=== PATIENT | female | born 1940 | race Two or more races ===

== ENCOUNTER 2016-09-20 07:41 | Inpatient (IN) | payer MEDICAID, MEDICARE ==
[~2016-09-20] VITALS: Ht 162.6 cm; Wt 68.0 kg
[~2016-09-20 07:41] MED LIST: ASCO500T2 PO; ASPI-482 PO; CARV3.122 PO; CEFD300C PO; CEFP100T PO; CEPH-264 PO; CEPH500T PO; CIPR250T30 PO; CIPR500T94 PO; FERR140T2 PO; FERR325T58 PO; INSU100C4 SQ; INSU100I13 SQ; NITR100C PO; NITR50CA PO; OXYC-323 PO; POLY17PO5 PO; SIMV40TA3 PO; SODI650T PO; SULF1TAB24 PO
--- NOTE | 2016-09-20 08:21 | PHYS DOC ---
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 According to her family and the patient over the last 2 days she's been getting weaker and decreased appetite. Her blood glucose is been ranging from 60-225 and she's not been eating as much. Patient states she has decreased appetite. She has also had a nonproductive cough with cold-like symptoms for the last week and was started on ciprofloxacin and what I suspect Phenergan with codeine as a cough suppressant. She has a history of urinary retention and sees Dr. Ritchie said urinary stents placed and self catheters. She denies any fevers chills, no headache, chest pain or abdominal pain. According to family she is needing assistance to ambulate to the bathroom secondary to weakness now. Review of Systems Review of Systems Constitutional: Denies fever or chills [] Eyes: Denies change in visual acuity, redness, or eye pain [] HENT: Denies nasal congestion or sore throat [] Respiratory: Denies cough or shortness of breath [] Cardiovascular: No additional information not addressed in HPI [] GI: Denies abdominal pain, nausea, vomiting, bloody stools or diarrhea [] : Denies dysuria or hematuria [] Musculoskeletal: Denies back pain or joint pain [] Integument: Denies rash or skin lesions [] Neurologic: Denies headache, focal weakness or sensory changes [] Endocrine: Denies polyuria or polydipsia [] Current Medications Current Medications Current Medications Medications (Trade) Dose Ordered Sig/Claudette Start Time Stop Time Status Last Admin Dose Admin Ceftriaxone Sodium (Rocephin 1gm Ivpb For Omni) 50 ml @ 100 mls/hr 1X ONCE 09/20/16 11:15 09/20/16 11:44 09/20/16 11:35 100 MLS/HR Ondansetron HCl (Zofran) 4 mg PRN Q8HRS PRN 09/20/16 11:15 09/21/16 11:14 Allergies Allergies Allergies Coded Allergies Type Severity Reaction Last Updated Verified latex Allergy Intermediate Rash 08/06/16 Yes Physical Exam Physical Exam Constitutional: Well developed, well nourished, no acute distress, non-toxic appearance. [] HENT: Normocephalic, atraumatic, bilateral external ears normal, oropharynx moist, no oral exudates, nose normal. [] Eyes: PERRLA, EOMI, conjunctiva normal, no discharge. [] Neck: Normal range of motion, no tenderness, supple, no stridor. [] Cardiovascular:Heart rate regular rhythm, no murmur [] Lungs & Thorax: Bilateral breath sounds clear to auscultation [] Abdomen: Bowel sounds normal, soft, no tenderness, no masses, no pulsatile masses. [] Skin: Warm, dry, no erythema, no rash. [] Back: No tenderness, no CVA tenderness. [] Extremities: No tenderness, no cyanosis, no clubbing, ROM intact, no edema. [] Neurologic: Alert and oriented X 3, normal motor function, normal sensory function, no focal deficits noted. [] Psychologic: Affect normal, judgement normal, mood normal. [] Current Patient Data Vital Signs Vital Signs Date Time Temp Pulse Resp B/P Pulse Ox O2 Delivery O2 Flow Rate FiO2 09/20/16 08:02 97.9 90 18 175/74 95 Room Air 97.9 Lab Values Laboratory Tests Test 09/20/16 09:03 09/20/16 09:21 09/20/16 10:20 Urine Collection Type U cath Urine Color Yellow Urine Clarity Turbid Urine pH 6.5 Urine Specific [place] 1.010 Urine Protein 100mg/dL (NEG-TRACE) Urine Glucose (UA) 100mg/dL (NEG) Urine Ketones (Stick) Negativemg/dL (NEG) Urine Blood Large (NEG) Urine Nitrite Negative (NEG) Urine Bilirubin Negative (NEG) Urine Urobilinogen Dipstick 0.2mg/dL (0.2 mg/dL) Urine Leukocyte Esterase Large (NEG) Urine RBC 11-20/HPF (0-2) Urine WBC Tntc/HPF (0-4) Urine Squamous Epithelial Cells Few/LPF Urine Bacteria Few/HPF (0-FEW) Urine Mucus Slight/LPF Urine Yeast Present/HPF Influenza Type A Antigen Negative (NEGATIVE) Influenza Type B Antigen Negative (NEGATIVE) White Blood Count 9.0x10^3/uL (4.0-11.0) Red Blood Count 3.86x10^6/uL (3.50-5.40) Hemoglobin 11.7g/dL (12.0-15.5) L Hematocrit 35.5% (36.0-47.0) L Mean Corpuscular Volume 92fL (79-100) Mean Corpuscular Hemoglobin 30pg (25-35) Mean Corpuscular Hemoglobin Concent 33g/dL (31-37) Red Cell Distribution Width 14.9% (11.5-14.5) H Platelet Count 281x10^3/uL (140-400) Neutrophils (%) (Auto) 67% (31-73) Lymphocytes (%) (Auto) 24% (24-48) Monocytes (%) (Auto) 8% (0-9) Eosinophils (%) (Auto) 0% (0-3) Basophils (%) (Auto) 1% (0-3) Neutrophils # (Auto) 6.0x10^3uL (1.8-7.7) Lymphocytes # (Auto) 2.2x10^3/uL (1.0-4.8) Monocytes # (Auto) 0.7x10^3/uL (0.0-1.1) Eosinophils # (Auto) 0.0x10^3/uL (0.0-0.7) Basophils # (Auto) 0.1x10^3/uL (0.0-0.2) Prothrombin Time 13.6SEC (11.7-14.0) Prothrombin Time INR 1.1 (0.8-1.1) Sodium Level 142mmol/L (136-145) Potassium Level 5.5mmol/L (3.5-5.1) H Chloride Level 105mmol/L (98-107) Carbon Dioxide Level 24mmol/L (21-32) Anion Gap 13 (6-14) Blood Urea Nitrogen 63mg/dL (7-20) H Creatinine 2.9mg/dL (0.6-1.0) H Estimated GFR (Cockcroft-Gault) 15.9 Glucose Level 298mg/dL (70-99) H Calcium Level 8.5mg/dL (8.5-10.1) Magnesium Level 2.3mg/dL (1.8-2.4) Total Bilirubin 0.3mg/dL (0.2-1.0) Direct Bilirubin 0.1mg/dL (0.0-0.2) Aspartate Amino Transferase (AST) 18U/L (15-37) Alanine Aminotransferase (ALT) 9U/L (14-59) L Alkaline Phosphatase 116U/L (46-116) Creatine Kinase 71U/L (26-192) Creatine Kinase MB (Mass) 0.6ng/mL (0.0-3.6) Creatine Kinase MB Relative Index % (0-4) Troponin I Quantitative < 0.017ng/mL (0.000-0.055) CT-Xlz-Z-Type Natriuretic Peptide 640pg/mL (0-124) H Total Protein 8.8g/dL (6.4-8.2) H Albumin 3.1g/dL (3.4-5.0) L Lipase 119U/L (73-393) Thyroid Stimulating Hormone (TSH) 3.538uIU/mL (0.358-3.74) Laboratory Tests 09/20/16 10:20 Laboratory Tests 09/20/16 10:20 EKG EKG EKG shows normal sinus rhythm with rate of [address] elevations or T -wave inversions, left axis deviation, QRS 88 ms, as interpreted by me. Radiology/Procedures Radiology/Procedures [facility] [address] [place] [address] IMAGING REPORT Signed PATIENT: BRYANT LOCKHART ACCOUNT: [id number] : 1940 LOCATION: ER AGE: 76 SEX: F EXAM STATUS: REG ER ORD. PHYSICIAN: STEPHANIE MERLOS MD REASON: weakness 18 PROCEDURE: PORTABLE CHEST 1V Portable chest, 09/20/2016: History: Weakness and dizziness Comparison is made to a study from 07/19/2016. There has been a previous median sternotomy. The heart size is normal. There is calcific plaquing of the aorta. The pulmonary vascularity is normal. No pulmonary infiltrates are seen. There is no evidence of pleural fluid. The bony structures are demineralized. There is an old fracture of the left fifth rib. IMPRESSION: No acute cardiopulmonary abnormality is detected. DICTATED and SIGNED BY: ADEN GREY MD DATE: 09/20/16 0832 CC: STEPHANIE MERLOS MD; LISA CALHOUN ~ Impressions: UTI Generalized weakness Coronary artery disease Diabetes Chronic renal insufficiency Hypertension Course & Med Decision Making Course & Med Decision Making Pertinent Labs and Imaging studies reviewed. (See chart for details) EKG, chest x-ray not showing any acute abnormalities and she does have leuk esterase positive urine. She is currently on Cipro. We'll send a urine culture and start Rocephin 1 g. Patient will need to be admitted for generalized weakness. We'll admit to the hospitalist. She is in stable condition this time. Dragon Disclaimer Dragon Disclaimer This electronic medical record was generated, in whole or in part, using a voice recognition dictation system. Departure Departure Impression: Primary Impression: UTI (urinary tract infection) Disposition: ADMITTED INPATIENT Admitting Physician: Christian Angel Condition: STABLE Referrals: LISA CALHOUN (PCP) STEPHANIE MERLOS MD Sep 20, 2016 08:21
--- NOTE | 2016-09-20 08:35 | RAD ---
Portable chest, 09/20/2016: History: Weakness and dizziness Comparison is made to a study from 07/19/2016. There has been a previous median sternotomy. The heart size is normal. There is calcific plaquing of the aorta. The pulmonary vascularity is normal. No pulmonary infiltrates are seen. There is no evidence of pleural fluid. The bony structures are demineralized. There is an old fracture of the left fifth rib. IMPRESSION: No acute cardiopulmonary abnormality is detected.
[2016-09-20 09:11] LABS: BILIRUBIN,URINE NEGATIVE (NEG); GLUCOSE,URINE 100 mg/dL (NEG); NITRITE,URINE NEGATIVE (NEG); PH,URINE 6.5; PROTEIN,URINE 100 mg/dL (NEG-TRACE); UROBILINOGEN,URINE 0.2 mg/dL (0.2 mg/dL)
--- NOTE | 2016-09-20 09:27 | EKG ---
[facility] [address] [place] [address] Test Date: 2016-09-20 Test Time: 08:33:25 Pat Name: BRYANT LOCKHART Department: Room: Gender: F Ticket Speculator: : 1940 Requested By: STEPHANIE MERLOS Order Number: [id number] Reading MD: Shine Zapata Measurements Intervals [place] Rate: 87 P: -5 LA: 158 QRS: -15 QRSD: 88 T: 51 QT: 384 QTc: 463 Interpretive Statements SINUS RHYTHM POSSIBLE INFERIOR INFARCT NON-SPECIFIC ST/T CHANGES Electronically Signed On 09-21-2016 13:09:06 SAMPLER TESTER by Shine Zapata
[2016-09-20 09:31] LABS: BACTERIA,URINE FEW /HPF (0-FEW); WBC,URINE TNTC /HPF (0-4)
[2016-09-20 09:32] LABS: SQUAMOUS EPITHELIAL CELL,UR FEW /LPF
[2016-09-20 09:36] LABS: YEAST,URINE PRESENT /HPF
[2016-09-20 09:59] LABS: OBC FLU VALID
[2016-09-20 10:32] LABS: BASO # 0.1 x10^3/uL (0.0-0.2); BASO % 1 % (0-3); EOS % 0 % (0-3); HEMATOCRIT 35.5 % (36.0-47.0); HEMOGLOBIN 11.7 g/dL (12.0-15.5); LYMPH # 2.2 x10^3/uL (1.0-4.8); LYMPH % 24 % (24-48); MEAN CORPUSCULAR HEMOGLOBIN 30 pg (25-35); MEAN CORPUSCULAR HGB CONC 33 g/dL (31-37); MEAN CORPUSCULAR VOLUME 92 fL (79-100); MONO % 8 % (0-9); NEUT % 67 % (31-73); PLATELET COUNT 281 x10^3/uL (140-400); RED BLOOD COUNT 3.86 x10^6/uL (3.50-5.40); RED CELL DISTRIBUTION WIDTH 14.9 % (11.5-14.5)
[2016-09-20 10:40] LABS: INR 1.1 (0.8-1.1); PROTHROMBIN TIME PATIENT 13.6 SEC (11.7-14.0)
[2016-09-20 10:52] LABS: CALCIUM 8.5 mg/dL (8.5-10.1); CREATININE 2.9 mg/dL (0.6-1.0); GFR 15.9; POTASSIUM 5.5 mmol/L (3.5-5.1)
[2016-09-20 10:58] LABS: ALBUMIN 3.1 g/dL (3.4-5.0); DIRECT BILIRUBIN 0.1 mg/dL (0.0-0.2); MAGNESIUM 2.3 mg/dL (1.8-2.4); TOTAL BILIRUBIN 0.3 mg/dL (0.2-1.0); TOTAL PROTEIN 8.8 g/dL (6.4-8.2)
[2016-09-20 11:06] LABS: CKMB MASS 0.6 ng/mL (0.0-3.6); CREATINE KINASE 71 U/L (26-192)
[2016-09-20] MEDS ORDERED: ONDANSETRON PF 4 MG/2 ML VIAL. IV PRN ×2 (11:15→14:45)
[2016-09-20] MEDS ORDERED: CEFTRIAXONE 1GM IVPB FOR OMNI 50 ML IV ONE (11:15)
[2016-09-20 13:37] VITALS: BP 151/68
[2016-09-20 14:04] VITALS: BP 151/68
[2016-09-20] MEDS ORDERED: ACETAMINOPHEN 325 MG TABLET. PO PRN (14:45)
[2016-09-20] MEDS ORDERED: DEXTROSE 50% 25 GM / 50ML DISP.SYRIN. IV PRN (14:45)
[2016-09-20] MEDS ORDERED: HYDROCODONE/APAP 5/325MG TABLET. PO PRN (14:45)
[2016-09-20] MEDS ORDERED: hydrALAZINE 20 MG/ML VIAL. IVP PRN (14:45)
[2016-09-20] MEDS ORDERED: ALBUTEROL SULFATE 2.5 MG/3 ML NEBU. NEB PRN (14:45)
--- NOTE | 2016-09-20 14:51 | PDOC1 ---
History and Physical Past Medical History Cardiovascular: CAD, HTN GI: Other Heme/Onc: No pertinent hx Psych: No pertinent hx Rheumatologic: No pertinent hx Infectious disease: No pertinent hx Renal/: Chronic renal failure, UTI, Other Past Surgical History Past Surgical History: CABG Family History Family History DM- FATHER Family History: No Significant, Other Social History ALCOHOL: none Drugs: None Current Problem List Problem List Problems Medical Problems: (1) UTI (urinary tract infection) Status: Acute (2) Weakness Status: Acute Current Medications Current Medications Current Medications Medications (Trade) Dose Ordered Sig/Claudette Start Time Stop Time Status Last Admin Dose Admin Acetaminophen (Tylenol) 325 mg PRN Q6HRS PRN 09/20/16 14:45 Acetaminophen/ Hydrocodone Bitart (Lortab 5/325) 1 tab PRN Q6HRS PRN 09/20/16 14:45 Albuterol Sulfate (Ventolin Neb Soln) 2.5 mg PRN Q4HRS PRN 09/20/16 14:45 Ceftriaxone Sodium/Sodium Chloride (Rocephin/Iv Sodium Chloride 0.9% 50ml) 50 ml @ 100 mls/hr Q24H 09/21/16 12:00 Ceftriaxone Sodium (Rocephin 1gm Ivpb For Omni) 50 ml @ 100 mls/hr 1X ONCE 09/20/16 11:15 09/20/16 11:44 DC 09/20/16 11:35 100 MLS/HR Dextrose 12.5 gm PRN Q15MIN PRN 09/20/16 14:45 Hydralazine HCl (Apresoline) 10 mg PRN Q4HRS PRN 09/20/16 14:45 Insulin Aspart (Novolog) 0-9 UNITS TIDWMEALS 09/20/16 17:00 Ondansetron HCl (Zofran) 4 mg PRN Q8HRS PRN 09/20/16 14:45 Ondansetron HCl 4 mg 4 mg PRN Q8HRS PRN 09/20/16 11:15 09/21/16 11:14 Allergies Allergies Allergies Coded Allergies Type Severity Reaction Last Updated Verified latex Allergy Intermediate Rash 08/06/16 Yes ROS Review of System CONSTITUTIONAL: No fever or chills Weakness, loss of appetite EYES: No recent changes SKIN: No rash or itching CARDIOVASCULAR: No chest pain, syncope, palpitations, or edema RESPIRATORY: No SOB or cough GASTROINTESTINAL: No nausea, vomiting or abdominal pain NEUROLOGICAL: No headaches or weakness ENDOCRINE: No cold or heat intolerance GENITOURINARY: No urgency or frequency of urination MUSCULOSKELETAL: No back pain or joint pain LYMPHATICS: No enlarged lymph nodes PSYCHIATRIC: No anxiety or depression Physical Exam Physical Exam GEN.: No apparent distress. Alert and oriented. HEENT: Head is normocephalic, atraumatic NECK: Supple. no jvd LUNGS: Clear to auscultation. normal airflow HEART: RRR, S1, S2 present. Peripheral pulses intact, systolic murmur ABDOMEN: Soft, nontender. Positive bowel sounds. EXTREMITIES: Without any cyanosis. NEUROLOGIC: Normal speech, normal tone PSYCHIATRIC: Normal affect, normal mood. SKIN: No visible ulcerations Vitals Vitals Vital Signs Date Time Temp Pulse Resp B/P Pulse Ox O2 Delivery O2 Flow Rate FiO2 09/20/16 14:04 98.6 76 18 151/68 94 Room Air 98.6 Labs Labs Laboratory Tests Test 09/20/16 09:03 09/20/16 09:21 09/20/16 10:20 Urine Collection Type U cath Urine Color Yellow Urine Clarity Turbid Urine pH 6.5 Urine Specific [place] 1.010 Urine Protein 100mg/dL (NEG-TRACE) Urine Glucose (UA) 100mg/dL (NEG) Urine Ketones (Stick) Negativemg/dL (NEG) Urine Blood Large (NEG) Urine Nitrite Negative (NEG) Urine Bilirubin Negative (NEG) Urine Urobilinogen Dipstick 0.2mg/dL (0.2 mg/dL) Urine Leukocyte Esterase Large (NEG) Urine RBC 11-20/HPF (0-2) Urine WBC Tntc/HPF (0-4) Urine Squamous Epithelial Cells Few/LPF Urine Bacteria Few/HPF (0-FEW) Urine Mucus Slight/LPF Urine Yeast Present/HPF Influenza Type A Antigen Negative (NEGATIVE) Influenza Type B Antigen Negative (NEGATIVE) White Blood Count 9.0x10^3/uL (4.0-11.0) Red Blood Count 3.86x10^6/uL (3.50-5.40) Hemoglobin 11.7g/dL (12.0-15.5) Hematocrit 35.5% (36.0-47.0) Mean Corpuscular Volume 92fL (79-100) Mean Corpuscular Hemoglobin 30pg (25-35) Mean Corpuscular Hemoglobin Concent 33g/dL (31-37) Red Cell Distribution Width 14.9% (11.5-14.5) Platelet Count 281x10^3/uL (140-400) Neutrophils (%) (Auto) 67% (31-73) Lymphocytes (%) (Auto) 24% (24-48) Monocytes (%) (Auto) 8% (0-9) Eosinophils (%) (Auto) 0% (0-3) Basophils (%) (Auto) 1% (0-3) Neutrophils # (Auto) 6.0x10^3uL (1.8-7.7) Lymphocytes # (Auto) 2.2x10^3/uL (1.0-4.8) Monocytes # (Auto) 0.7x10^3/uL (0.0-1.1) Eosinophils # (Auto) 0.0x10^3/uL (0.0-0.7) Basophils # (Auto) 0.1x10^3/uL (0.0-0.2) Prothrombin Time 13.6SEC (11.7-14.0) Prothromb Time International Ratio 1.1 (0.8-1.1) Sodium Level 142mmol/L (136-145) Potassium Level 5.5mmol/L (3.5-5.1) Chloride Level 105mmol/L (98-107) Carbon Dioxide Level 24mmol/L (21-32) Anion Gap 13 (6-14) Blood Urea Nitrogen 63mg/dL (7-20) Creatinine 2.9mg/dL (0.6-1.0) Estimated GFR (Cockcroft-Gault) 15.9 Glucose Level 298mg/dL (70-99) Calcium Level 8.5mg/dL (8.5-10.1) Magnesium Level 2.3mg/dL (1.8-2.4) Total Bilirubin 0.3mg/dL (0.2-1.0) Direct Bilirubin 0.1mg/dL (0.0-0.2) Aspartate Amino Transf (AST/SGOT) 18U/L (15-37) Alanine Aminotransferase (ALT/SGPT) 9U/L (14-59) Alkaline Phosphatase 116U/L (46-116) Creatine Kinase 71U/L (26-192) Creatine Kinase MB (Mass) 0.6ng/mL (0.0-3.6) Creatine Kinase MB Relative Index % (0-4) Troponin I Quantitative < 0.017ng/mL (0.000-0.055) PM-Zae-H-Type Natriuretic Peptide 640pg/mL (0-124) Total Protein 8.8g/dL (6.4-8.2) Albumin 3.1g/dL (3.4-5.0) Lipase 119U/L (73-393) Thyroid Stimulating Hormone (TSH) 3.538uIU/mL (0.358-3.74) Laboratory Tests Test 09/20/16 09:03 09/20/16 09:21 09/20/16 10:20 Urine Collection Type U cath Urine Color Yellow Urine Clarity Turbid Urine pH 6.5 Urine Specific [place] 1.010 Urine Protein 100mg/dL (NEG-TRACE) Urine Glucose (UA) 100mg/dL (NEG) Urine Ketones (Stick) Negativemg/dL (NEG) Urine Blood Large (NEG) Urine Nitrite Negative (NEG) Urine Bilirubin Negative (NEG) Urine Urobilinogen Dipstick 0.2mg/dL (0.2 mg/dL) Urine Leukocyte Esterase Large (NEG) Urine RBC 11-20/HPF (0-2) Urine WBC Tntc/HPF (0-4) Urine Squamous Epithelial Cells Few/LPF Urine Bacteria Few/HPF (0-FEW) Urine Mucus Slight/LPF Urine Yeast Present/HPF Influenza Type A Antigen Negative (NEGATIVE) Influenza Type B Antigen Negative (NEGATIVE) White Blood Count 9.0x10^3/uL (4.0-11.0) Red Blood Count 3.86x10^6/uL (3.50-5.40) Hemoglobin 11.7g/dL (12.0-15.5) Hematocrit 35.5% (36.0-47.0) Mean Corpuscular Volume 92fL (79-100) Mean Corpuscular Hemoglobin 30pg (25-35) Mean Corpuscular Hemoglobin Concent 33g/dL (31-37) Red Cell Distribution Width 14.9% (11.5-14.5) Platelet Count 281x10^3/uL (140-400) Neutrophils (%) (Auto) 67% (31-73) Lymphocytes (%) (Auto) 24% (24-48) Monocytes (%) (Auto) 8% (0-9) Eosinophils (%) (Auto) 0% (0-3) Basophils (%) (Auto) 1% (0-3) Neutrophils # (Auto) 6.0x10^3uL (1.8-7.7) Lymphocytes # (Auto) 2.2x10^3/uL (1.0-4.8) Monocytes # (Auto) 0.7x10^3/uL (0.0-1.1) Eosinophils # (Auto) 0.0x10^3/uL (0.0-0.7) Basophils # (Auto) 0.1x10^3/uL (0.0-0.2) Prothrombin Time 13.6SEC (11.7-14.0) Prothromb Time International Ratio 1.1 (0.8-1.1) Sodium Level 142mmol/L (136-145) Potassium Level 5.5mmol/L (3.5-5.1) Chloride Level 105mmol/L (98-107) Carbon Dioxide Level 24mmol/L (21-32) Anion Gap 13 (6-14) Blood Urea Nitrogen 63mg/dL (7-20) Creatinine 2.9mg/dL (0.6-1.0) Estimated GFR (Cockcroft-Gault) 15.9 Glucose Level 298mg/dL (70-99) Calcium Level 8.5mg/dL (8.5-10.1) Magnesium Level 2.3mg/dL (1.8-2.4) Total Bilirubin 0.3mg/dL (0.2-1.0) Direct Bilirubin 0.1mg/dL (0.0-0.2) Aspartate Amino Transf (AST/SGOT) 18U/L (15-37) Alanine Aminotransferase (ALT/SGPT) 9U/L (14-59) Alkaline Phosphatase 116U/L (46-116) Creatine Kinase 71U/L (26-192) Creatine Kinase MB (Mass) 0.6ng/mL (0.0-3.6) Creatine Kinase MB Relative Index % (0-4) Troponin I Quantitative < 0.017ng/mL (0.000-0.055) GX-Uug-B-Type Natriuretic Peptide 640pg/mL (0-124) Total Protein 8.8g/dL (6.4-8.2) Albumin 3.1g/dL (3.4-5.0) Lipase 119U/L (73-393) Thyroid Stimulating Hormone (TSH) 3.538uIU/mL (0.358-3.74) VTE Prophylaxis Ordered VTE Prophylaxis Devices: Yes VTE Pharmacological Prophylaxi: Yes MUNIR PADILLA MD Sep 20, 2016 14:51
[2016-09-20] MEDS ORDERED: SODIUM POLYSTYRENE SULFONATE 15 GM/60 ML ORAL.SUSP. PO ONE (15:30)
[2016-09-20 16:00] VITALS: BP 151/68
--- NOTE | 2016-09-20 16:04 | RAD ---
Renal ultrasound, 09/20/2016: History: Acute and chronic kidney disease The right kidney measures 12.2 cm in length and the left kidney measures 11.1 cm. There is mild bilateral renal cortical scarring. The patient's known ureteral stents are visible extending into the renal pelves bilaterally. There is mild to moderate hydronephrosis bilaterally. Similar findings were present on the CT study of 07/19/2016. No renal mass is seen. The bladder is largely collapsed and poorly defined. IMPRESSION: 1. Bilateral ureteral stents are in place. 2. Mild to moderate bilateral hydronephrosis.
[2016-09-20] MEDS: INSULIN ASPART 300 UNITS/3 ML INSULN.PEN SQ SCH ×2 (16:30→17:00)
[2016-09-20] MEDS: FLUCONAZOLE 100 MG TABLET. PO SCH (16:33)
--- NOTE | 2016-09-20 17:38 | PDOC2 ---
UROLOGY CONSULT Date of Admission DATE: 09/20/16 TIME: 17:22 Reason for Consult: history of urinary tract infections Referring Physician: Stanley Problems: (1) UTI (lower urinary tract infection) (2) Hydronephrosis (3) Urinary incontinence HISTORY OF KIDNEY PROBLEMS: Yes HISTORY OF INCONTINENCE: Yes HISTORY FREQUENCY/NOCTURIA: No HISTORY OF CANCER: No Chief Complaint weakness and history of urinary tract infection Source: Patient Patient admitted for weakness and fatigue. Patient has significant past medical history of urinary tract infections and currently has bilateral ureteral stents in place. Patient had RBUS that showed bilateral hydronephrosis and ureteral stents. Per patient, she complains of total incontinence. She states that she originally had stents placed during episode of renal failure. She recently had stents exchanged in Jul 14. Currently upon admission, it appears that Cr is elevated from 2.6 to 2.9. She states that she has had to self cath in the past but has not been doing so recently. After admission, she states that she is feeling better. She denies any history of urologic surgery other than her stent exchanges. ROS General: pleasant, oriented HEENT: atraumatic, normocephalic Eyes: Denies change in vision Respiratory: Nonlabored respirations, normal effort Cardiac: well perfused, no chest pain GI: Denies abdominal pain, denies nausea, denies vomiting, denies diarrhea : Denies dysuria, +stress incontinence Psych: normal affect, alert , awake, and oriented Musculoskeletal: normal upper strength Neurological: Denies headache, denies focal weakness Past Surgical History: Cystoscopy Current Medications Current Medications Ceftriaxone Sodium (Rocephin 1gm Ivpb For Omni) 50 ml @ 100 mls/hr 1X ONCE IV Last administered on 09/20/16t 11:35; Start 09/20/16 at 11:15; Stop 09/20/16 at 11:44; Status DC Ondansetron HCl 4 mg 4 mg PRN Q8HRS PRN IV NAUSEA/VOMITING; Start 09/20/16 at 11:15; Stop 09/20/16 at 14:49; Status DC Ceftriaxone Sodium/Sodium Chloride (Rocephin/Iv Sodium Chloride 0.9% 50ml) 50 ml @ 100 mls/hr Q24H IV ; Start 09/21/16 at 12:00 Acetaminophen (Tylenol) 325 mg PRN Q6HRS PRN PO MILD PAIN / TEMP; Start at 14:45 Acetaminophen/ Hydrocodone Bitart (Lortab 5/325) 1 tab PRN Q6HRS PRN PO MODERATE TO SEVERE PAIN; Start 09/20/16 at 14:45 Hydralazine HCl (Apresoline) 10 mg PRN Q4HRS PRN IVP ELEVATED BP, SEE COMMENTS ; Start 09/20/16 at 14:45 Ondansetron HCl (Zofran) 4 mg PRN Q8HRS PRN IV NAUSEA/VOMITING; Start 09/20/16 at 14:45 Albuterol Sulfate (Ventolin Neb Soln) 2.5 mg PRN Q4HRS PRN NEB SHORTNESS OF BREATH; Start 09/20/16 at 14:45 Insulin Aspart (Novolog) 0-9 UNITS TIDWMEALS SQ ; Start 09/20/16 at 17:00 Dextrose 12.5 gm PRN Q15MIN PRN IV SEE COMMENTS; Start 09/20/16 at 14:45 Ascorbic Acid (Vitamin C) 500 mg DAILY08 PO ; Start 09/21/16 at 08:00 Aspirin (Ecotrin) 81 mg DAILY08 PO ; Start 09/21/16 at 08:00 Carvedilol (Coreg) 3.125 mg DAILY PO ; Start 09/21/16 at 09:00 Simvastatin (Zocor) 40 mg QHS PO ; Start 09/20/16 at 21:00 Sodium Bicarbonate (Sodium Bicarbonate) 650 mg BID PO ; Start 09/20/16 at 21:00 Insulin Aspart (Novolog) 13 units TIDAC SQ ; Start 09/20/16 at 16:30 Insulin Detemir (Levemir) 23 units QHS SQ ; Start 09/20/16 at 21:00 Fluconazole (Diflucan) 100 mg DAILY PO Last administered on 09/20/16t 16:33; Start 09/20/16 at 15:30 Sodium Polystyrene Sulfonate (Kayexalate) 30 gm 1X ONCE PO Last administered on 09/20/16t 16:33; Start 09/20/16 at 15:30; Stop 09/20/16 at 15:31; Status DC Active Scripts Active Reported Ferrous Sulfate 140 Mg Tablet.er 140 Mg PO Lantus Solostar (Insulin Glargine,Hum.rec.anlog) 100 Unit/1 Ml Insuln.pen 23 Unit SQ QHS Last dose given: 08-20-14 (;00 p.m. Next dose due: tonjulien Novolog (Insulin Aspart) 100 Unit/1 Ml Cartridge 13 Unit SQ TIDAC Last dose given: 11:30 a.m. Next dose due: With next meal Vitamin C (Ascorbic Acid) 500 Mg Tablet 500 Mg PO DAILY08 Simvastatin 40 Mg Tablet 1 Tab PO QHS Last dose given: 08-20-14 9:00 p.m. Next dose due: tonight Carvedilol 3.125 Mg Tablet 1 Tab PO DAILY Last dose given: 9:00 a.m. Next dose due: 08-22-14 9:00 a.m. Sodium Bicarbonate 650 Mg Tablet 2 Tab PO BID Last dose given: 9:00 a.m. Next dose due: tonjulien Aspir 81 (Aspirin) 81 Mg Tablet.dr 1 Tab PO DAILY08 Allergies: Coded Allergies: latex (Verified Allergy, Intermediate, Rash, 08/06/16) Physical Examination Physical Exam: General appearance: Alert and Oriented Head: Normocephalic, without obvious abnormality Eyes: conjunctivae/corneas clear. PERRL, EOM's intact. Fundi benign Back: negative Lungs: clear to auscultation bilaterally Abdomen: soft, non-tender. Bowel sounds normal. No masses, no organomegaly Pelvic: deferred Extremities: extremities normal, atraumatic, no cyanosis or edema Pulses: 2+ and symmetric Lymph nodes: Cervical, supraclavicular, and axillary nodes normal. DOES THIS PATIENT HAVE URINARY: No VITALS Vital Signs Date Time Temp Pulse Resp B/P Pulse Ox O2 Delivery O2 Flow Rate FiO2 09/20/16 16:00 98.6 76 151/68 94 98.6 09/20/16 15:24 Room Air 09/20/16 14:04 18 Labs Laboratory Tests Test 09/20/16 09:03 09/20/16 09:21 09/20/16 10:20 09/20/16 17:01 Urine Collection Type U cath Urine Color Yellow Urine Clarity Turbid Urine pH 6.5 Urine Specific Wilburn 1.010 Urine Protein 100mg/dL (NEG-TRACE) Urine Glucose (UA) 100mg/dL (NEG) Urine Ketones (Stick) Negativemg/dL (NEG) Urine Blood Large (NEG) Urine Nitrite Negative (NEG) Urine Bilirubin Negative (NEG) Urine Urobilinogen Dipstick 0.2mg/dL (0.2 mg/dL) Urine Leukocyte Esterase Large (NEG) Urine RBC 11-20/HPF (0-2) Urine WBC Tntc/HPF (0-4) Urine Squamous Epithelial Cells Few/LPF Urine Bacteria Few/HPF (0-FEW) Urine Mucus Slight/LPF Urine Yeast Present/HPF Influenza Type A Antigen Negative (NEGATIVE) Influenza Type B Antigen Negative (NEGATIVE) White Blood Count 9.0x10^3/uL (4.0-11.0) Red Blood Count 3.86x10^6/uL (3.50-5.40) Hemoglobin 11.7g/dL (12.0-15.5) Hematocrit 35.5% (36.0-47.0) Mean Corpuscular Volume 92fL (79-100) Mean Corpuscular Hemoglobin 30pg (25-35) Mean Corpuscular Hemoglobin Concent 33g/dL (31-37) Red Cell Distribution Width 14.9% (11.5-14.5) Platelet Count 281x10^3/uL (140-400) Neutrophils (%) (Auto) 67% (31-73) Lymphocytes (%) (Auto) 24% (24-48) Monocytes (%) (Auto) 8% (0-9) Eosinophils (%) (Auto) 0% (0-3) Basophils (%) (Auto) 1% (0-3) Neutrophils # (Auto) 6.0x10^3uL (1.8-7.7) Lymphocytes # (Auto) 2.2x10^3/uL (1.0-4.8) Monocytes # (Auto) 0.7x10^3/uL (0.0-1.1) Eosinophils # (Auto) 0.0x10^3/uL (0.0-0.7) Basophils # (Auto) 0.1x10^3/uL (0.0-0.2) Prothrombin Time 13.6SEC (11.7-14.0) Prothromb Time International Ratio 1.1 (0.8-1.1) Sodium Level 142mmol/L (136-145) Potassium Level 5.5mmol/L (3.5-5.1) Chloride Level 105mmol/L (98-107) Carbon Dioxide Level 24mmol/L (21-32) Anion Gap 13 (6-14) Blood Urea Nitrogen 63mg/dL (7-20) Creatinine 2.9mg/dL (0.6-1.0) Estimated GFR (Cockcroft-Gault) 15.9 Glucose Level 298mg/dL (70-99) Calcium Level 8.5mg/dL (8.5-10.1) Magnesium Level 2.3mg/dL (1.8-2.4) Total Bilirubin 0.3mg/dL (0.2-1.0) Direct Bilirubin 0.1mg/dL (0.0-0.2) Aspartate Amino Transf (AST/SGOT) 18U/L (15-37) Alanine Aminotransferase (ALT/SGPT) 9U/L (14-59) Alkaline Phosphatase 116U/L (46-116) Creatine Kinase 71U/L (26-192) Creatine Kinase MB (Mass) 0.6ng/mL (0.0-3.6) Creatine Kinase MB Relative Index % (0-4) Troponin I Quantitative < 0.017ng/mL (0.000-0.055) SF-Sal-W-Type Natriuretic Peptide 640pg/mL (0-124) Total Protein 8.8g/dL (6.4-8.2) Albumin 3.1g/dL (3.4-5.0) Lipase 119U/L (73-393) Thyroid Stimulating Hormone (TSH) 3.538uIU/mL (0.358-3.74) Glucose (Fingerstick) 392mg/dL (70-99) Laboratory Tests Test 09/20/16 09:03 09/20/16 09:21 09/20/16 10:20 09/20/16 17:01 Urine Collection Type U cath Urine Color Yellow Urine Clarity Turbid Urine pH 6.5 Urine Specific Wilburn 1.010 Urine Protein 100mg/dL (NEG-TRACE) Urine Glucose (UA) 100mg/dL (NEG) Urine Ketones (Stick) Negativemg/dL (NEG) Urine Blood Large (NEG) Urine Nitrite Negative (NEG) Urine Bilirubin Negative (NEG) Urine Urobilinogen Dipstick 0.2mg/dL (0.2 mg/dL) Urine Leukocyte Esterase Large (NEG) Urine RBC 11-20/HPF (0-2) Urine WBC Tntc/HPF (0-4) Urine Squamous Epithelial Cells Few/LPF Urine Bacteria Few/HPF (0-FEW) Urine Mucus Slight/LPF Urine Yeast Present/HPF Influenza Type A Antigen Negative (NEGATIVE) Influenza Type B Antigen Negative (NEGATIVE) White Blood Count 9.0x10^3/uL (4.0-11.0) Red Blood Count 3.86x10^6/uL (3.50-5.40) Hemoglobin 11.7g/dL (12.0-15.5) Hematocrit 35.5% (36.0-47.0) Mean Corpuscular Volume 92fL (79-100) Mean Corpuscular Hemoglobin 30pg (25-35) Mean Corpuscular Hemoglobin Concent 33g/dL (31-37) Red Cell Distribution Width 14.9% (11.5-14.5) Platelet Count 281x10^3/uL (140-400) Neutrophils (%) (Auto) 67% (31-73) Lymphocytes (%) (Auto) 24% (24-48) Monocytes (%) (Auto) 8% (0-9) Eosinophils (%) (Auto) 0% (0-3) Basophils (%) (Auto) 1% (0-3) Neutrophils # (Auto) 6.0x10^3uL (1.8-7.7) Lymphocytes # (Auto) 2.2x10^3/uL (1.0-4.8) Monocytes # (Auto) 0.7x10^3/uL (0.0-1.1) Eosinophils # (Auto) 0.0x10^3/uL (0.0-0.7) Basophils # (Auto) 0.1x10^3/uL (0.0-0.2) Prothrombin Time 13.6SEC (11.7-14.0) Prothromb Time International Ratio 1.1 (0.8-1.1) Sodium Level 142mmol/L (136-145) Potassium Level 5.5mmol/L (3.5-5.1) Chloride Level 105mmol/L (98-107) Carbon Dioxide Level 24mmol/L (21-32) Anion Gap 13 (6-14) Blood Urea Nitrogen 63mg/dL (7-20) Creatinine 2.9mg/dL (0.6-1.0) Estimated GFR (Cockcroft-Gault) 15.9 Glucose Level 298mg/dL (70-99) Calcium Level 8.5mg/dL (8.5-10.1) Magnesium Level 2.3mg/dL (1.8-2.4) Total Bilirubin 0.3mg/dL (0.2-1.0) Direct Bilirubin 0.1mg/dL (0.0-0.2) Aspartate Amino Transf (AST/SGOT) 18U/L (15-37) Alanine Aminotransferase (ALT/SGPT) 9U/L (14-59) Alkaline Phosphatase 116U/L (46-116) Creatine Kinase 71U/L (26-192) Creatine Kinase MB (Mass) 0.6ng/mL (0.0-3.6) Creatine Kinase MB Relative Index % (0-4) Troponin I Quantitative < 0.017ng/mL (0.000-0.055) TS-Rdz-I-Type Natriuretic Peptide 640pg/mL (0-124) Total Protein 8.8g/dL (6.4-8.2) Albumin 3.1g/dL (3.4-5.0) Lipase 119U/L (73-393) Thyroid Stimulating Hormone (TSH) 3.538uIU/mL (0.358-3.74) Glucose (Fingerstick) 392mg/dL (70-99) Images Laboratory Tests Test 09/20/16 09:03 09/20/16 09:21 09/20/16 10:20 09/20/16 17:01 Urine Collection Type U cath Urine Color Yellow Urine Clarity Turbid Urine pH 6.5 Urine Specific Wilburn 1.010 Urine Protein 100mg/dL Urine Glucose (UA) 100mg/dL Urine Ketones (Stick) Negativemg/dL Urine Blood Large Urine Nitrite Negative Urine Bilirubin Negative Urine Urobilinogen Dipstick 0.2mg/dL Urine Leukocyte Esterase Large Urine RBC 11-20/HPF Urine WBC Tntc/HPF Urine Squamous Epithelial Cells Few/LPF Urine Bacteria Few/HPF Urine Mucus Slight/LPF Urine Yeast Present/HPF Influenza Type A Antigen Negative Influenza Type B Antigen Negative White Blood Count 9.0x10^3/uL Red Blood Count 3.86x10^6/uL Hemoglobin 11.7g/dL Hematocrit 35.5% Mean Corpuscular Volume 92fL Mean Corpuscular Hemoglobin 30pg Mean Corpuscular Hemoglobin Concent 33g/dL Red Cell Distribution Width 14.9% Platelet Count 281x10^3/uL Neutrophils (%) (Auto) 67% Lymphocytes (%) (Auto) 24% Monocytes (%) (Auto) 8% Eosinophils (%) (Auto) 0% Basophils (%) (Auto) 1% Neutrophils # (Auto) 6.0x10^3uL Lymphocytes # (Auto) 2.2x10^3/uL Monocytes # (Auto) 0.7x10^3/uL Eosinophils # (Auto) 0.0x10^3/uL Basophils # (Auto) 0.1x10^3/uL Prothrombin Time 13.6SEC Prothromb Time International Ratio 1.1 Sodium Level 142mmol/L Potassium Level 5.5mmol/L Chloride Level 105mmol/L Carbon Dioxide Level 24mmol/L Anion Gap 13 Blood Urea Nitrogen 63mg/dL Creatinine 2.9mg/dL Estimated GFR (Cockcroft-Gault) 15.9 Glucose Level 298mg/dL Calcium Level 8.5mg/dL Magnesium Level 2.3mg/dL Total Bilirubin 0.3mg/dL Direct Bilirubin 0.1mg/dL Aspartate Amino Transf (AST/SGOT) 18U/L Alanine Aminotransferase (ALT/SGPT) 9U/L Alkaline Phosphatase 116U/L Creatine Kinase 71U/L Creatine Kinase MB (Mass) 0.6ng/mL Creatine Kinase MB Relative Index % Troponin I Quantitative < 0.017ng/mL [id number]-Type Natriuretic Peptide 640pg/mL Total Protein 8.8g/dL Albumin 3.1g/dL Lipase 119U/L Thyroid Stimulating Hormone (TSH) 3.538uIU/mL Glucose (Fingerstick) 392mg/dL Current Medications Medications (Trade) Dose Ordered Sig/Claudette Route PRN Reason Start Time Stop Time Status Last Admin Dose Admin Ceftriaxone Sodium (Rocephin 1gm Ivpb For Omni) 50 ml @ 100 mls/hr 1X ONCE IV 09/20/16 11:15 09/20/16 11:44 DC 09/20/16 11:35 Ondansetron HCl 4 mg 4 mg PRN Q8HRS PRN IV NAUSEA/VOMITING 09/20/16 11:15 09/20/16 14:49 DC Ceftriaxone Sodium/Sodium Chloride (Rocephin/Iv Sodium Chloride 0.9% 50ml) 50 ml @ 100 mls/hr Q24H IV 09/21/16 12:00 Acetaminophen (Tylenol) 325 mg PRN Q6HRS PRN PO MILD PAIN / TEMP 09/20/16 14:45 Acetaminophen/ Hydrocodone Bitart (Lortab 5/325) 1 tab PRN Q6HRS PRN PO MODERATE TO SEVERE PAIN 09/20/16 14:45 Hydralazine HCl (Apresoline) 10 mg PRN Q4HRS PRN IVP ELEVATED BP, SEE COMMENTS 09/20/16 14:45 Ondansetron HCl (Zofran) 4 mg PRN Q8HRS PRN IV NAUSEA/VOMITING 09/20/16 14:45 Albuterol Sulfate (Ventolin Neb Soln) 2.5 mg PRN Q4HRS PRN NEB SHORTNESS OF BREATH 09/20/16 14:45 Insulin Aspart (Novolog) 0-9 UNITS TIDWMEALS SQ 09/20/16 17:00 Dextrose 12.5 gm PRN Q15MIN PRN IV SEE COMMENTS 09/20/16 14:45 Ascorbic Acid (Vitamin C) 500 mg DAILY08 PO 09/21/16 08:00 Aspirin (Ecotrin) 81 mg DAILY08 PO 09/21/16 08:00 Carvedilol (Coreg) 3.125 mg DAILY PO 09/21/16 09:00 Simvastatin (Zocor) 40 mg QHS PO 09/20/16 21:00 Sodium Bicarbonate (Sodium Bicarbonate) 650 mg BID PO 09/20/16 21:00 Insulin Aspart (Novolog) 13 units TIDAC SQ 09/20/16 16:30 Insulin Detemir (Levemir) 23 units QHS SQ 09/20/16 21:00 Fluconazole (Diflucan) 100 mg DAILY PO 09/20/16 15:30 09/20/16 16:33 Sodium Polystyrene Sulfonate (Kayexalate) 30 gm 1X ONCE PO 09/20/16 15:30 09/20/16 15:31 DC 09/20/16 16:33 Laboratory Tests Test 09/20/16 17:01 Glucose (Fingerstick) 392mg/dL (70-99) Assessment/Plan Urinary tract infection and hydronephrosis bilaterally Currently with normal WBC and urinalysis with large LE and neg nitrites. Currently on IV abx and feeling better. Recommend follow continue IV abx for now until culture results are known. Patient has history of bilateral ureteral stents and incontinence. Unclear whether she has overflow incontinence or stress incontinence. Recommend PVR x 2. If PVR >150ml, then would recommend paniagua catheter for max drainage given increase in Cr. Will continue to follow. May need to exchange stents but will continue to monitor for now. Problem Qualifiers (1) Hydronephrosis: Hydronephrosis type: unspecified Qualified Code: N13.30 - Unspecified hydronephrosis (2) Urinary incontinence: Urinary Incontinence type: stress incontinence Qualified Code: N39.3 - Stress incontinence (female) (male) HAWA VORA MD Sep 20, 2016 17:38
[2016-09-20] MEDS ORDERED: INSULIN ASPART 300 UNITS/3 ML INSULN.PEN SQ STA (17:50)
[2016-09-20 19:00] VITALS: BP 124/74
[2016-09-20] MEDS: SIMVASTATIN 40 MG TABLET. PO SCH (21:18)
[2016-09-20] MEDS: SODIUM BICARBONATE 650 MG TABLET. PO SCH (21:18)
[2016-09-20] MEDS: INSULIN DETEMIR 300 UNITS/3 ML INSULN.PEN. SQ SCH (21:30)
[2016-09-20 23:09] VITALS: BP 99/56
--- NOTE | 2016-09-21 01:02 | HP ---
ADMIT DATE: 09/20/2016 CHIEF COMPLAINT: Generalized weakness and loss of appetite. HISTORY OF PRESENT ILLNESS: A 76-year-old female patient with prior history of recurrent UTIs, currently on ciprofloxacin started by PCP, presented to the ER with complaints of loss of appetite and increased weakness for last 2 days. The patient had repeated symptoms like this every time she had loss of appetite and noticed weakness, most of the time, she was diagnosed with urinary tract infections. Today, she presented to the ER and she was diagnosed with urinary tract infections and she was requiring admission for IV antibiotics. The patient has some structural abnormality; however, she was not able to provide me detailed history, but she had stents in the past. Currently, she had stents, those stents have been changed every [address] Ritchie. She denies any fever or chills; however, she developed some cough, dry in nature. Currently, feeling better after receiving IV antibiotics. PAST MEDICAL HISTORY, REVIEW OF SYSTEMS, PHYSICAL EXAMINATION: Please see my electronic H and P. LABORATORY FINDINGS: WBC 9000, hemoglobin 11.7, MCV is 92, platelets 281. Chemistry: Sodium is 142, potassium 5.5, chloride is 105, carbon dioxide 2.4, anion gap 63. Creatinine is 2.9, BUN is 63, glucose is 298. Magnesium is 2.3. Creatinine kinase is 63. Troponin is less than 0.017. TSH is 3.38. Coagulation panel: PT is 13.6, INR is 1.1. Urine protein is 100, glucose is 100, ketones negative, nitrites negative, leuk esterase is large, bacteria few, yeast present. Serology: Influenza A and B negative. ASSESSMENT: 1. Urinary tract infection. funguria. 2. Type 1 diabetes mellitus with mild hyperglycemia. 3. Hypertension. 4. Chronic kidney disease, /. 5. Prior history of bladder stents. PLAN: 1. The patient has been admitted and I will start her on IV Rocephin. 2. Also with daily fluconazole. 3. I will consult Urology and Nephrology. 4. Monitor creatinine. 5. The patient's potassium is high 5.5 and I will give her one-time dose of Kayexalate and recheck potassium. 6. Also order a renal ultrasound. 7. Family is requesting Urology consult. Dr. Ritchie knows her very well from previous admission. 8. Sliding scale insulin with home dose of Levemir. 9. CBC, BMP in a.m. 10. No DVT prophylaxis. MUNIR PADILLA MD DR: SHAUN/anthony JOB#: [id number] / [id number] SHYANN
[2016-09-21 03:35] VITALS: BP 109/63
[2016-09-21 06:05] LABS: BASO % 0 % (0-3); EOS % 1 % (0-3); HEMATOCRIT 33.6 % (36.0-47.0); HEMOGLOBIN 10.8 g/dL (12.0-15.5); LYMPH # 2.9 x10^3/uL (1.0-4.8); LYMPH % 34 % (24-48); MEAN CORPUSCULAR HEMOGLOBIN 30 pg (25-35); MEAN CORPUSCULAR HGB CONC 32 g/dL (31-37); MEAN CORPUSCULAR VOLUME 92 fL (79-100); MONO % 12 % (0-9); NEUT % 53 % (31-73); PLATELET COUNT 250 x10^3/uL (140-400); RED BLOOD COUNT 3.64 x10^6/uL (3.50-5.40); RED CELL DISTRIBUTION WIDTH 14.9 % (11.5-14.5); WHITE BLOOD COUNT 8.4 x10^3/uL (4.0-11.0)
[2016-09-21 06:25] LABS: ALBUMIN 2.5 g/dL (3.4-5.0); ALBUMIN/GLOBULIN RATIO 0.5 (1.0-1.7); CALCIUM 8.2 mg/dL (8.5-10.1); CREATININE 2.8 mg/dL (0.6-1.0); GFR 16.5; POTASSIUM 4.2 mmol/L (3.5-5.1); TOTAL BILIRUBIN 0.2 mg/dL (0.2-1.0); TOTAL PROTEIN 7.5 g/dL (6.4-8.2)
[2016-09-21 07:00] VITALS: BP 108/55
[2016-09-21] MEDS: SODIUM BICARBONATE 650 MG TABLET. PO SCH ×2 (08:19→20:50)
[2016-09-21] MEDS: ASCORBIC ACID 500 MG TABLET PO SCH (08:20)
[2016-09-21] MEDS: FLUCONAZOLE 100 MG TABLET. PO SCH (08:20)
[2016-09-21] MEDS: ASPIRIN ENTERIC COATED 81 MG TABLET.DR. PO SCH (08:20)
[2016-09-21] MEDS: CARVEDILOL 3.125 MG TABLET PO SCH (08:20)
[2016-09-21] MEDS: INSULIN ASPART 300 UNITS/3 ML INSULN.PEN SQ SCH ×6 (08:24→16:30)
[2016-09-21 10:31] VITALS: BP 113/57
--- NOTE | 2016-09-21 10:42 | PDOC2 ---
CONSULT Date of Consult Date of Consult DATE: 09/21/16 TIME: 10:37 Reason for Consult Reason for Consult: TWYLA Referring Physician Referring Physician: RANDY Identification/Chief Complaint Chief Complaint WEAKNESS AND NOT EATING Source Source: Chart review, Patient History of Present Illness Reason for Visit: THIS IS A 76 YR OLD ADMITTED WITH WEAKNESS AND NOT EATING WELL. ON ADMIT SHE IS NOTED TO HAVE TWYLA WITH A CR OF 2.9. SHE DOES HAVE CKD WITH CR OF 2.0-2.5 AT BASELINE. SHE HAS ALSO BEEN DX WITH AN UTI. HX IS NOTABLE FOR URINARY RETENTION REQUIRING MULTIPLE DAILY SELF CATHETERIZATIONS AND URETERAL STENTS THAT ARE BEING REPLACED EVERY FEW MONTHS BY UROLOGY. HER CKD IS DUE TO DM II Past Medical History Cardiovascular: CAD, HTN GI: Other Heme/Onc: No pertinent hx Psych: No pertinent hx Rheumatologic: No pertinent hx Infectious disease: No pertinent hx Renal/: Chronic renal insuff, UTI, Other Endocrine: Diabetes Past Surgical History Past Surgical History: Cystoscopy Family History Family History: No Significant, Other Social History ALCOHOL: none Drugs: None Lives: Alone Current Problem List Problem List Problems Medical Problems: (1) Hydronephrosis Status: Acute (2) Urinary incontinence Status: Acute (3) UTI (lower urinary tract infection) Status: Acute (4) UTI (urinary tract infection) Status: Acute (5) Weakness Status: Acute Current Medications Current Medications Current Medications Ceftriaxone Sodium (Rocephin 1gm Ivpb For Omni) 50 ml @ 100 mls/hr 1X ONCE IV Last administered on 09/20/16t 11:35; Start 09/20/16 at 11:15; Stop 09/20/16 at 11:44; Status DC Ondansetron HCl 4 mg 4 mg PRN Q8HRS PRN IV NAUSEA/VOMITING; Start 09/20/16 at 11:15; Stop 09/20/16 at 14:49; Status DC Ceftriaxone Sodium/Sodium Chloride (Rocephin/Iv Sodium Chloride 0.9% 50ml) 50 ml @ 100 mls/hr Q24H IV ; Start 09/21/16 at 12:00 Acetaminophen (Tylenol) 325 mg PRN Q6HRS PRN PO MILD PAIN / TEMP; Start at 14:45 Acetaminophen/ Hydrocodone Bitart (Lortab 5/325) 1 tab PRN Q6HRS PRN PO MODERATE TO SEVERE PAIN; Start 09/20/16 at 14:45 Hydralazine HCl (Apresoline) 10 mg PRN Q4HRS PRN IVP ELEVATED BP, SEE COMMENTS ; Start 09/20/16 at 14:45 Ondansetron HCl (Zofran) 4 mg PRN Q8HRS PRN IV NAUSEA/VOMITING; Start 09/20/16 at 14:45 Albuterol Sulfate (Ventolin Neb Soln) 2.5 mg PRN Q4HRS PRN NEB SHORTNESS OF BREATH; Start 09/20/16 at 14:45 Insulin Aspart (Novolog) 0-9 UNITS TIDWMEALS SQ Last administered on 09/21/16 08:25; Start 09/20/16 at 17:00 Dextrose 12.5 gm PRN Q15MIN PRN IV SEE COMMENTS; Start 09/20/16 at 14:45 Ascorbic Acid (Vitamin C) 500 mg DAILY08 PO Last administered on 09/21/16 08: 20; Start 09/21/16 at 08:00 Aspirin (Ecotrin) 81 mg DAILY08 PO Last administered on 09/21/16 08:20; Start 09/21/16 at 08:00 Carvedilol (Coreg) 3.125 mg DAILY PO Last administered on 09/21/16 08:20; Start 09/21/16 at 09:00 Simvastatin (Zocor) 40 mg QHS PO Last administered on 09/20/16 21:18; Start at 21:00 Sodium Bicarbonate (Sodium Bicarbonate) 650 mg BID PO Last administered on 09/21 08:19; Start 09/20/16 at 21:00 Insulin Aspart (Novolog) 13 units TIDAC SQ Last administered on 09/21/16 08:24 ; Start 09/20/16 at 16:30 Insulin Detemir (Levemir) 23 units QHS SQ Last administered on 09/20/16 21:30 ; Start 09/20/16 at 21:00 Fluconazole (Diflucan) 100 mg DAILY PO Last administered on 09/21/16 08:20; Start 09/20/16 at 15:30 Sodium Polystyrene Sulfonate (Kayexalate) 30 gm 1X ONCE PO Last administered on 09/20/16 16:33; Start 09/20/16 at 15:30; Stop 09/20/16 at 15:31; Status DC Insulin Aspart (Novolog) 20 units 1X STAT SQ Last administered on 09/20/16t 17 :50; Start 09/20/16 at 17:50; Stop 09/20/16 at 17:53; Status DC Active Scripts Active Reported Ferrous Sulfate 140 Mg Tablet.er 140 Mg PO Lantus Solostar (Insulin Glargine,Hum.rec.anlog) 100 Unit/1 Ml Insuln.pen 23 Unit SQ QHS Last dose given: 08-20-14 (;00 p.m. Next dose due: tonight Novolog (Insulin Aspart) 100 Unit/1 Ml Cartridge 13 Unit SQ TIDAC Last dose given: 11:30 a.m. Next dose due: With next meal Vitamin C (Ascorbic Acid) 500 Mg Tablet 500 Mg PO DAILY08 Simvastatin 40 Mg Tablet 1 Tab PO QHS Last dose given: 08-20-14 9:00 p.m. Next dose due: evangelist Carvedilol 3.125 Mg Tablet 1 Tab PO DAILY Last dose given: 9:00 a.m. Next dose due: 08-22-14 9:00 a.m. Sodium Bicarbonate 650 Mg Tablet 2 Tab PO BID Last dose given: 9:00 a.m. Next dose due: evangelist Aspir 81 (Aspirin) 81 Mg Tablet. 1 Tab PO DAILY08 Allergies Allergies: Coded Allergies: latex (Verified Allergy, Intermediate, Rash, 08/06/16) ROS General: YES: Appetite, Fatigue, Malaise Eyes: Yes Decreased vision HEENT: YES: Heacaches Respiratory: YES: Cough Gastrointestinal: Yes Nausea Genitourinary: YES Frequency, YES Retention Musculoskeletal: Yes Muscular Weakness Neurological: Yes Weakness Skin: Yes Dry Skin Physical Exam General: Alert, Oriented X3, Cooperative, No acute distress HEENT: Atraumatic, PERRLA Lungs: Clear to auscultation Heart: Regular rate, Normal S1, Normal S2 Abdomen: Normal bowel sounds, Soft, No tenderness Extremities: No clubbing Neuro: Normal speech Psych/Mental Status: Mental status NL, Mood NL MUSCULOSKELETAL: No deformity, No swelling Vitals VITALS Vital Signs Date Time Temp Pulse Resp B/P Pulse Ox O2 Delivery O2 Flow Rate FiO2 09/21/16 10:31 97.5 83 18 113/57 95 Room Air 97.5 Labs Labs Laboratory Tests Test 09/20/16 09:03 09/20/16 09:21 09/20/16 10:20 09/20/16 17:01 Urine Collection Type U cath Urine Color Yellow Urine Clarity Turbid Urine pH 6.5 Urine Specific [place] 1.010 Urine Protein 100mg/dL (NEG-TRACE) Urine Glucose (UA) 100mg/dL (NEG) Urine Ketones (Stick) Negativemg/dL (NEG) Urine Blood Large (NEG) Urine Nitrite Negative (NEG) Urine Bilirubin Negative (NEG) Urine Urobilinogen Dipstick 0.2mg/dL (0.2 mg/dL) Urine Leukocyte Esterase Large (NEG) Urine RBC 11-20/HPF (0-2) Urine WBC Tntc/HPF (0-4) Urine Squamous Epithelial Cells Few/LPF Urine Bacteria Few/HPF (0-FEW) Urine Mucus Slight/LPF Urine Yeast Present/HPF Influenza Type A Antigen Negative (NEGATIVE) Influenza Type B Antigen Negative (NEGATIVE) White Blood Count 9.0x10^3/uL (4.0-11.0) Red Blood Count 3.86x10^6/uL (3.50-5.40) Hemoglobin 11.7g/dL (12.0-15.5) Hematocrit 35.5% (36.0-47.0) Mean Corpuscular Volume 92fL (79-100) Mean Corpuscular Hemoglobin 30pg (25-35) Mean Corpuscular Hemoglobin Concent 33g/dL (31-37) Red Cell Distribution Width 14.9% (11.5-14.5) Platelet Count 281x10^3/uL (140-400) Neutrophils (%) (Auto) 67% (31-73) Lymphocytes (%) (Auto) 24% (24-48) Monocytes (%) (Auto) 8% (0-9) Eosinophils (%) (Auto) 0% (0-3) Basophils (%) (Auto) 1% (0-3) Neutrophils # (Auto) 6.0x10^3uL (1.8-7.7) Lymphocytes # (Auto) 2.2x10^3/uL (1.0-4.8) Monocytes # (Auto) 0.7x10^3/uL (0.0-1.1) Eosinophils # (Auto) 0.0x10^3/uL (0.0-0.7) Basophils # (Auto) 0.1x10^3/uL (0.0-0.2) Prothrombin Time 13.6SEC (11.7-14.0) Prothromb Time International Ratio 1.1 (0.8-1.1) Sodium Level 142mmol/L (136-145) Potassium Level 5.5mmol/L (3.5-5.1) Chloride Level 105mmol/L (98-107) Carbon Dioxide Level 24mmol/L (21-32) Anion Gap 13 (6-14) Blood Urea Nitrogen 63mg/dL (7-20) Creatinine 2.9mg/dL (0.6-1.0) Estimated GFR (Cockcroft-Gault) 15.9 Glucose Level 298mg/dL (70-99) Calcium Level 8.5mg/dL (8.5-10.1) Magnesium Level 2.3mg/dL (1.8-2.4) Total Bilirubin 0.3mg/dL (0.2-1.0) Direct Bilirubin 0.1mg/dL (0.0-0.2) Aspartate Amino Transf (AST/SGOT) 18U/L (15-37) Alanine Aminotransferase (ALT/SGPT) 9U/L (14-59) Alkaline Phosphatase 116U/L (46-116) Creatine Kinase 71U/L (26-192) Creatine Kinase MB (Mass) 0.6ng/mL (0.0-3.6) Creatine Kinase MB Relative Index % (0-4) Troponin I Quantitative < 0.017ng/mL (0.000-0.055) PC-Qoz-P-Type Natriuretic Peptide 640pg/mL (0-124) Total Protein 8.8g/dL (6.4-8.2) Albumin 3.1g/dL (3.4-5.0) Lipase 119U/L (73-393) Thyroid Stimulating Hormone (TSH) 3.538uIU/mL (0.358-3.74) Glucose (Fingerstick) 392mg/dL (70-99) Test 09/20/16 17:40 09/20/16 20:40 09/20/16 23:35 09/21/16 05:30 Troponin I Quantitative < 0.017ng/mL (0.000-0.055) < 0.017ng/mL (0.000-0.055) Glucose (Fingerstick) 262mg/dL (70-99) White Blood Count 8.4x10^3/uL (4.0-11.0) Red Blood Count 3.64x10^6/uL (3.50-5.40) Hemoglobin 10.8g/dL (12.0-15.5) Hematocrit 33.6% (36.0-47.0) Mean Corpuscular Volume 92fL (79-100) Mean Corpuscular Hemoglobin 30pg (25-35) Mean Corpuscular Hemoglobin Concent 32g/dL (31-37) Red Cell Distribution Width 14.9% (11.5-14.5) Platelet Count 250x10^3/uL (140-400) Neutrophils (%) (Auto) 53% (31-73) Lymphocytes (%) (Auto) 34% (24-48) Monocytes (%) (Auto) 12% (0-9) Eosinophils (%) (Auto) 1% (0-3) Basophils (%) (Auto) 0% (0-3) Neutrophils # (Auto) 4.4x10^3uL (1.8-7.7) Lymphocytes # (Auto) 2.9x10^3/uL (1.0-4.8) Monocytes # (Auto) 1.0x10^3/uL (0.0-1.1) Eosinophils # (Auto) 0.1x10^3/uL (0.0-0.7) Basophils # (Auto) 0.0x10^3/uL (0.0-0.2) Sodium Level 138mmol/L (136-145) Potassium Level 4.2mmol/L (3.5-5.1) Chloride Level 103mmol/L (98-107) Carbon Dioxide Level 23mmol/L (21-32) Anion Gap 12 (6-14) Blood Urea Nitrogen 60mg/dL (7-20) Creatinine 2.8mg/dL (0.6-1.0) Estimated GFR (Cockcroft-Gault) 16.5 BUN/Creatinine Ratio 21 (6-20) Glucose Level 285mg/dL (70-99) Calcium Level 8.2mg/dL (8.5-10.1) Total Bilirubin 0.2mg/dL (0.2-1.0) Aspartate Amino Transf (AST/SGOT) 11U/L (15-37) Alanine Aminotransferase (ALT/SGPT) 13U/L (14-59) Alkaline Phosphatase 97U/L (46-116) Total Protein 7.5g/dL (6.4-8.2) Albumin 2.5g/dL (3.4-5.0) Albumin/Globulin Ratio 0.5 (1.0-1.7) Test 09/21/16 07:25 Glucose (Fingerstick) 252mg/dL (70-99) Laboratory Tests Test 09/20/16 17:01 09/20/16 17:40 09/20/16 20:40 09/20/16 23:35 Glucose (Fingerstick) 392mg/dL (70-99) 262mg/dL (70-99) Troponin I Quantitative < 0.017ng/mL (0.000-0.055) < 0.017ng/mL (0.000-0.055) Test 09/21/16 05:30 09/21/16 07:25 White Blood Count 8.4x10^3/uL (4.0-11.0) Red Blood Count 3.64x10^6/uL (3.50-5.40) Hemoglobin 10.8g/dL (12.0-15.5) Hematocrit 33.6% (36.0-47.0) Mean Corpuscular Volume 92fL (79-100) Mean Corpuscular Hemoglobin 30pg (25-35) Mean Corpuscular Hemoglobin Concent 32g/dL (31-37) Red Cell Distribution Width 14.9% (11.5-14.5) Platelet Count 250x10^3/uL (140-400) Neutrophils (%) (Auto) 53% (31-73) Lymphocytes (%) (Auto) 34% (24-48) Monocytes (%) (Auto) 12% (0-9) Eosinophils (%) (Auto) 1% (0-3) Basophils (%) (Auto) 0% (0-3) Neutrophils # (Auto) 4.4x10^3uL (1.8-7.7) Lymphocytes # (Auto) 2.9x10^3/uL (1.0-4.8) Monocytes # (Auto) 1.0x10^3/uL (0.0-1.1) Eosinophils # (Auto) 0.1x10^3/uL (0.0-0.7) Basophils # (Auto) 0.0x10^3/uL (0.0-0.2) Sodium Level 138mmol/L (136-145) Potassium Level 4.2mmol/L (3.5-5.1) Chloride Level 103mmol/L (98-107) Carbon Dioxide Level 23mmol/L (21-32) Anion Gap 12 (6-14) Blood Urea Nitrogen 60mg/dL (7-20) Creatinine 2.8mg/dL (0.6-1.0) Estimated GFR (Cockcroft-Gault) 16.5 BUN/Creatinine Ratio 21 (6-20) Glucose Level 285mg/dL (70-99) Calcium Level 8.2mg/dL (8.5-10.1) Total Bilirubin 0.2mg/dL (0.2-1.0) Aspartate Amino Transf (AST/SGOT) 11U/L (15-37) Alanine Aminotransferase (ALT/SGPT) 13U/L (14-59) Alkaline Phosphatase 97U/L (46-116) Total Protein 7.5g/dL (6.4-8.2) Albumin 2.5g/dL (3.4-5.0) Albumin/Globulin Ratio 0.5 (1.0-1.7) Glucose (Fingerstick) 252mg/dL (70-99) Assessment/Plan Assessment/Plan IMP CKD STAGE 3 WITH CR OF 2.0-2.5 TWYLA WITH CR OF 2.9 DEHYDRATION URINARY TRACT INFECTION DM II PLAN IVF'S ANTIBIOTICS VELÁZQUEZ TO DD WILL FOLLOW ENC MELONIE FLORES MD Sep 21, 2016 10:42
[2016-09-21] MEDS: CEFTRIAXONE SODIUM 1 GM in IV NORMAL SALINE 50ML 50 ML IV SCH (12:38)
[2016-09-21] MEDS: IV NORMAL SALINE 1000ML BAG 1,000 ML IV SCH (12:38)
--- NOTE | 2016-09-21 13:05 | PDOC ---
PROGRESS NOTES Chief Complaint Chief Complaint cc: weakness A/P 1. Suspected urinary tract infection. Clinical diagnosis with funguria. 2. Type 1 diabetes mellitus with mild hyperglycemia. 3. Hypertension. 4. Chronic kidney disease, 3/4.? TWYLA 5. Prior history of Urinary stents. Plan IV Rocephin Gee placed per Urology Nephrology following labs reviewed SSI with Levemir DVT prophylaxis s PT/OT Intake and out put. . History of Present Illness History of Present Illness no fever no chills no chest pain Vitals Vitals Vital Signs Date Time Temp Pulse Resp B/P Pulse Ox O2 Delivery O2 Flow Rate FiO2 09/21/16 10:31 97.5 83 18 113/57 95 Room Air 97.5 Physical Exam General: Alert, Oriented X3, Cooperative, No acute distress Heart: Regular rate, Normal S1, Normal S2 Lungs: Clear Abdomen: Normal bowel sounds, Soft, No tenderness Extremities: No clubbing Labs LABS Laboratory Tests Test 09/20/16 17:01 09/20/16 17:40 09/20/16 20:40 09/20/16 23:35 Glucose (Fingerstick) 392mg/dL (70-99) 262mg/dL (70-99) Troponin I Quantitative < 0.017ng/mL (0.000-0.055) < 0.017ng/mL (0.000-0.055) Test 09/21/16 05:30 09/21/16 07:25 09/21/16 11:05 White Blood Count 8.4x10^3/uL (4.0-11.0) Red Blood Count 3.64x10^6/uL (3.50-5.40) Hemoglobin 10.8g/dL (12.0-15.5) Hematocrit 33.6% (36.0-47.0) Mean Corpuscular Volume 92fL (79-100) Mean Corpuscular Hemoglobin 30pg (25-35) Mean Corpuscular Hemoglobin Concent 32g/dL (31-37) Red Cell Distribution Width 14.9% (11.5-14.5) Platelet Count 250x10^3/uL (140-400) Neutrophils (%) (Auto) 53% (31-73) Lymphocytes (%) (Auto) 34% (24-48) Monocytes (%) (Auto) 12% (0-9) Eosinophils (%) (Auto) 1% (0-3) Basophils (%) (Auto) 0% (0-3) Neutrophils # (Auto) 4.4x10^3uL (1.8-7.7) Lymphocytes # (Auto) 2.9x10^3/uL (1.0-4.8) Monocytes # (Auto) 1.0x10^3/uL (0.0-1.1) Eosinophils # (Auto) 0.1x10^3/uL (0.0-0.7) Basophils # (Auto) 0.0x10^3/uL (0.0-0.2) Sodium Level 138mmol/L (136-145) Potassium Level 4.2mmol/L (3.5-5.1) Chloride Level 103mmol/L (98-107) Carbon Dioxide Level 23mmol/L (21-32) Anion Gap 12 (6-14) Blood Urea Nitrogen 60mg/dL (7-20) Creatinine 2.8mg/dL (0.6-1.0) Estimated GFR (Cockcroft-Gault) 16.5 BUN/Creatinine Ratio 21 (6-20) Glucose Level 285mg/dL (70-99) Calcium Level 8.2mg/dL (8.5-10.1) Total Bilirubin 0.2mg/dL (0.2-1.0) Aspartate Amino Transf (AST/SGOT) 11U/L (15-37) Alanine Aminotransferase (ALT/SGPT) 13U/L (14-59) Alkaline Phosphatase 97U/L (46-116) Total Protein 7.5g/dL (6.4-8.2) Albumin 2.5g/dL (3.4-5.0) Albumin/Globulin Ratio 0.5 (1.0-1.7) Glucose (Fingerstick) 252mg/dL (70-99) 209mg/dL (70-99) Assessment and Plan Assessmemt and Plan Problems Medical Problems: (1) Hydronephrosis Status: Acute (2) Urinary incontinence Status: Acute (3) UTI (lower urinary tract infection) Status: Acute (4) UTI (urinary tract infection) Status: Acute (5) Weakness Status: Acute Problems: Comment Review of Relevant I have reviewed the following items anastasiya (where applicable) has been applied. Labs Laboratory Tests Test 09/20/16 09:03 09/20/16 09:21 09/20/16 10:20 09/20/16 17:01 Urine Collection Type U cath Urine Color Yellow Urine Clarity Turbid Urine pH 6.5 Urine Specific [place] 1.010 Urine Protein 100mg/dL (NEG-TRACE) Urine Glucose (UA) 100mg/dL (NEG) Urine Ketones (Stick) Negativemg/dL (NEG) Urine Blood Large (NEG) Urine Nitrite Negative (NEG) Urine Bilirubin Negative (NEG) Urine Urobilinogen Dipstick 0.2mg/dL (0.2 mg/dL) Urine Leukocyte Esterase Large (NEG) Urine RBC 11-20/HPF (0-2) Urine WBC Tntc/HPF (0-4) Urine Squamous Epithelial Cells Few/LPF Urine Bacteria Few/HPF (0-FEW) Urine Mucus Slight/LPF Urine Yeast Present/HPF Influenza Type A Antigen Negative (NEGATIVE) Influenza Type B Antigen Negative (NEGATIVE) White Blood Count 9.0x10^3/uL (4.0-11.0) Red Blood Count 3.86x10^6/uL (3.50-5.40) Hemoglobin 11.7g/dL (12.0-15.5) Hematocrit 35.5% (36.0-47.0) Mean Corpuscular Volume 92fL (79-100) Mean Corpuscular Hemoglobin 30pg (25-35) Mean Corpuscular Hemoglobin Concent 33g/dL (31-37) Red Cell Distribution Width 14.9% (11.5-14.5) Platelet Count 281x10^3/uL (140-400) Neutrophils (%) (Auto) 67% (31-73) Lymphocytes (%) (Auto) 24% (24-48) Monocytes (%) (Auto) 8% (0-9) Eosinophils (%) (Auto) 0% (0-3) Basophils (%) (Auto) 1% (0-3) Neutrophils # (Auto) 6.0x10^3uL (1.8-7.7) Lymphocytes # (Auto) 2.2x10^3/uL (1.0-4.8) Monocytes # (Auto) 0.7x10^3/uL (0.0-1.1) Eosinophils # (Auto) 0.0x10^3/uL (0.0-0.7) Basophils # (Auto) 0.1x10^3/uL (0.0-0.2) Prothrombin Time 13.6SEC (11.7-14.0) Prothromb Time International Ratio 1.1 (0.8-1.1) Sodium Level 142mmol/L (136-145) Potassium Level 5.5mmol/L (3.5-5.1) Chloride Level 105mmol/L (98-107) Carbon Dioxide Level 24mmol/L (21-32) Anion Gap 13 (6-14) Blood Urea Nitrogen 63mg/dL (7-20) Creatinine 2.9mg/dL (0.6-1.0) Estimated GFR (Cockcroft-Gault) 15.9 Glucose Level 298mg/dL (70-99) Calcium Level 8.5mg/dL (8.5-10.1) Magnesium Level 2.3mg/dL (1.8-2.4) Total Bilirubin 0.3mg/dL (0.2-1.0) Direct Bilirubin 0.1mg/dL (0.0-0.2) Aspartate Amino Transf (AST/SGOT) 18U/L (15-37) Alanine Aminotransferase (ALT/SGPT) 9U/L (14-59) Alkaline Phosphatase 116U/L (46-116) Creatine Kinase 71U/L (26-192) Creatine Kinase MB (Mass) 0.6ng/mL (0.0-3.6) Creatine Kinase MB Relative Index % (0-4) Troponin I Quantitative < 0.017ng/mL (0.000-0.055) LZ-Egs-V-Type Natriuretic Peptide 640pg/mL (0-124) Total Protein 8.8g/dL (6.4-8.2) Albumin 3.1g/dL (3.4-5.0) Lipase 119U/L (73-393) Thyroid Stimulating Hormone (TSH) 3.538uIU/mL (0.358-3.74) Glucose (Fingerstick) 392mg/dL (70-99) Test 09/20/16 17:40 09/20/16 20:40 09/20/16 23:35 09/21/16 05:30 Troponin I Quantitative < 0.017ng/mL (0.000-0.055) < 0.017ng/mL (0.000-0.055) Glucose (Fingerstick) 262mg/dL (70-99) White Blood Count 8.4x10^3/uL (4.0-11.0) Red Blood Count 3.64x10^6/uL (3.50-5.40) Hemoglobin 10.8g/dL (12.0-15.5) Hematocrit 33.6% (36.0-47.0) Mean Corpuscular Volume 92fL (79-100) Mean Corpuscular Hemoglobin 30pg (25-35) Mean Corpuscular Hemoglobin Concent 32g/dL (31-37) Red Cell Distribution Width 14.9% (11.5-14.5) Platelet Count 250x10^3/uL (140-400) Neutrophils (%) (Auto) 53% (31-73) Lymphocytes (%) (Auto) 34% (24-48) Monocytes (%) (Auto) 12% (0-9) Eosinophils (%) (Auto) 1% (0-3) Basophils (%) (Auto) 0% (0-3) Neutrophils # (Auto) 4.4x10^3uL (1.8-7.7) Lymphocytes # (Auto) 2.9x10^3/uL (1.0-4.8) Monocytes # (Auto) 1.0x10^3/uL (0.0-1.1) Eosinophils # (Auto) 0.1x10^3/uL (0.0-0.7) Basophils # (Auto) 0.0x10^3/uL (0.0-0.2) Sodium Level 138mmol/L (136-145) Potassium Level 4.2mmol/L (3.5-5.1) Chloride Level 103mmol/L (98-107) Carbon Dioxide Level 23mmol/L (21-32) Anion Gap 12 (6-14) Blood Urea Nitrogen 60mg/dL (7-20) Creatinine 2.8mg/dL (0.6-1.0) Estimated GFR (Cockcroft-Gault) 16.5 BUN/Creatinine Ratio 21 (6-20) Glucose Level 285mg/dL (70-99) Calcium Level 8.2mg/dL (8.5-10.1) Total Bilirubin 0.2mg/dL (0.2-1.0) Aspartate Amino Transf (AST/SGOT) 11U/L (15-37) Alanine Aminotransferase (ALT/SGPT) 13U/L (14-59) Alkaline Phosphatase 97U/L (46-116) Total Protein 7.5g/dL (6.4-8.2) Albumin 2.5g/dL (3.4-5.0) Albumin/Globulin Ratio 0.5 (1.0-1.7) Test 09/21/16 07:25 09/21/16 11:05 Glucose (Fingerstick) 252mg/dL (70-99) 209mg/dL (70-99) Laboratory Tests Test 09/20/16 17:01 09/20/16 17:40 09/20/16 20:40 09/20/16 23:35 Glucose (Fingerstick) 392mg/dL (70-99) 262mg/dL (70-99) Troponin I Quantitative < 0.017ng/mL (0.000-0.055) < 0.017ng/mL (0.000-0.055) Test 09/21/16 05:30 09/21/16 07:25 09/21/16 11:05 White Blood Count 8.4x10^3/uL (4.0-11.0) Red Blood Count 3.64x10^6/uL (3.50-5.40) Hemoglobin 10.8g/dL (12.0-15.5) Hematocrit 33.6% (36.0-47.0) Mean Corpuscular Volume 92fL (79-100) Mean Corpuscular Hemoglobin 30pg (25-35) Mean Corpuscular Hemoglobin Concent 32g/dL (31-37) Red Cell Distribution Width 14.9% (11.5-14.5) Platelet Count 250x10^3/uL (140-400) Neutrophils (%) (Auto) 53% (31-73) Lymphocytes (%) (Auto) 34% (24-48) Monocytes (%) (Auto) 12% (0-9) Eosinophils (%) (Auto) 1% (0-3) Basophils (%) (Auto) 0% (0-3) Neutrophils # (Auto) 4.4x10^3uL (1.8-7.7) Lymphocytes # (Auto) 2.9x10^3/uL (1.0-4.8) Monocytes # (Auto) 1.0x10^3/uL (0.0-1.1) Eosinophils # (Auto) 0.1x10^3/uL (0.0-0.7) Basophils # (Auto) 0.0x10^3/uL (0.0-0.2) Sodium Level 138mmol/L (136-145) Potassium Level 4.2mmol/L (3.5-5.1) Chloride Level 103mmol/L (98-107) Carbon Dioxide Level 23mmol/L (21-32) Anion Gap 12 (6-14) Blood Urea Nitrogen 60mg/dL (7-20) Creatinine 2.8mg/dL (0.6-1.0) Estimated GFR (Cockcroft-Gault) 16.5 BUN/Creatinine Ratio 21 (6-20) Glucose Level 285mg/dL (70-99) Calcium Level 8.2mg/dL (8.5-10.1) Total Bilirubin 0.2mg/dL (0.2-1.0) Aspartate Amino Transf (AST/SGOT) 11U/L (15-37) Alanine Aminotransferase (ALT/SGPT) 13U/L (14-59) Alkaline Phosphatase 97U/L (46-116) Total Protein 7.5g/dL (6.4-8.2) Albumin 2.5g/dL (3.4-5.0) Albumin/Globulin Ratio 0.5 (1.0-1.7) Glucose (Fingerstick) 252mg/dL (70-99) 209mg/dL (70-99) Medications Current Medications Ceftriaxone Sodium (Rocephin 1gm Ivpb For Omni) 50 ml @ 100 mls/hr 1X ONCE IV Last administered on 09/20/16t 11:35; Start 09/20/16 at 11:15; Stop 09/20/16 at 11:44; Status DC Ondansetron HCl 4 mg 4 mg PRN Q8HRS PRN IV NAUSEA/VOMITING; Start 09/20/16 at 11:15; Stop 09/20/16 at 14:49; Status DC Ceftriaxone Sodium/Sodium Chloride (Rocephin/Iv Sodium Chloride 0.9% 50ml) 50 ml @ 100 mls/hr Q24H IV Last administered on 09/21/16 12:38; Start 09/21/16 at 12:00 Acetaminophen (Tylenol) 325 mg PRN Q6HRS PRN PO MILD PAIN / TEMP; Start at 14:45 Acetaminophen/ Hydrocodone Bitart (Lortab 5/325) 1 tab PRN Q6HRS PRN PO MODERATE TO SEVERE PAIN; Start 09/20/16 at 14:45 Hydralazine HCl (Apresoline) 10 mg PRN Q4HRS PRN IVP ELEVATED BP, SEE COMMENTS ; Start 09/20/16 at 14:45 Ondansetron HCl (Zofran) 4 mg PRN Q8HRS PRN IV NAUSEA/VOMITING; Start 09/20/16 at 14:45 Albuterol Sulfate (Ventolin Neb Soln) 2.5 mg PRN Q4HRS PRN NEB SHORTNESS OF BREATH; Start 09/20/16 at 14:45 Insulin Aspart (Novolog) 0-9 UNITS TIDWMEALS SQ Last administered on 09/21/16 12:51; Start 09/20/16 at 17:00 Dextrose 12.5 gm PRN Q15MIN PRN IV SEE COMMENTS; Start 09/20/16 at 14:45 Ascorbic Acid (Vitamin C) 500 mg DAILY08 PO Last administered on 09/21/16 08: 20; Start 09/21/16 at 08:00 Aspirin (Ecotrin) 81 mg DAILY08 PO Last administered on 09/21/16 08:20; Start 09/21/16 at 08:00 Carvedilol (Coreg) 3.125 mg DAILY PO Last administered on 09/21/16 08:20; Start 09/21/16 at 09:00 Simvastatin (Zocor) 40 mg QHS PO Last administered on 09/20/16 21:18; Start at 21:00 Sodium Bicarbonate (Sodium Bicarbonate) 650 mg BID PO Last administered on 09/21 08:19; Start 09/20/16 at 21:00 Insulin Aspart (Novolog) 13 units TIDAC SQ Last administered on 09/21/16 12:50 ; Start 09/20/16 at 16:30 Insulin Detemir (Levemir) 23 units QHS SQ Last administered on 09/20/16 21:30 ; Start 09/20/16 at 21:00 Fluconazole (Diflucan) 100 mg DAILY PO Last administered on 09/21/16 08:20; Start 09/20/16 at 15:30 Sodium Polystyrene Sulfonate (Kayexalate) 30 gm 1X ONCE PO Last administered on 09/20/16 16:33; Start 09/20/16 at 15:30; Stop 09/20/16 at 15:31; Status DC Insulin Aspart 20 units 20 units 1X STAT SQ Last administered on 09/20/16 17: 50; Start 09/20/16 at 17:50; Stop 09/20/16 at 17:53; Status DC Sodium Chloride (Iv Sodium Chloride 0.9% 1000ml Bag) 1,000 ml @ 75 mls/hr [id number] IV Last administered on 09/21/16 12:38; Start 09/21/16 at 10:45 Active Scripts Active Reported Ferrous Sulfate 140 Mg Tablet.er 140 Mg PO Lantus Solostar (Insulin Glargine,Hum.rec.anlog) 100 Unit/1 Ml Insuln.pen 23 Unit SQ QHS Last dose given: 08-20-14 (;00 p.m. Next dose due: tonight Novolog (Insulin Aspart) 100 Unit/1 Ml Cartridge 13 Unit SQ TIDAC Last dose given: 11:30 a.m. Next dose due: With next meal Vitamin C (Ascorbic Acid) 500 Mg Tablet 500 Mg PO DAILY08 Simvastatin 40 Mg Tablet 1 Tab PO QHS Last dose given: 08-20-14 9:00 p.m. Next dose due: tonight Carvedilol 3.125 Mg Tablet 1 Tab PO DAILY Last dose given: 9:00 a.m. Next dose due: 08-22-14 9:00 a.m. Sodium Bicarbonate 650 Mg Tablet 2 Tab PO BID Last dose given: 9:00 a.m. Next dose due: tonjulien Aspir 81 (Aspirin) 81 Mg Tablet. 1 Tab PO DAILY08 Vitals/I & O Vital Sign - Last 24 Hours 09/20/16 09/20/16 09/20/1617 13:37 14:04 15:24 16:00 Temp 98.6 98.6 98.6 98.6 98.6 98.6 Pulse 76 76 76 Resp 17 18 B/P 151/68 151/68 151/68 Pulse Ox 94 94 94 O2 Delivery Room Air Room Air 09/20/16 09/20/16 09/21/16 09/21/16 19:00 23:09 03:35 07:00 Temp 98.0 98.1 96.3 98.1 98.0 98.1 96.3 98.1 Pulse 100 105 95 87 Resp 20 20 18 16 B/P 124/74 99/56 109/63 108/55 Pulse Ox 97 93 96 96 O2 Delivery Room Air Room Air Room Air Room Air 09/21/16 09/21/16 09/21/16 08:00 08:20 10:31 Temp 97.5 97.5 Pulse 87 83 Resp 18 B/P 108/55 113/57 Pulse Ox 95 O2 Delivery Room Air Room Air Intake and Output 09/20/16 09/20/16 09/21/16 15:00 23:00 07:00 Intake Total 50 ml 240 ml Output Total 150 ml Balance 50 ml 240 ml -150 ml MUNIR PADILLA MD Sep 21, 2016 13:05
[2016-09-21 14:39] VITALS: BP 112/61
--- NOTE | 2016-09-21 18:13 | PDOC ---
PROGRESS NOTES Subjective Subjective Cr now at 2.8. [place] placed per primary team last evening. Doing well. Eating better. Objective Objective Vital Signs Date Time Temp Pulse Resp B/P Pulse Ox O2 Delivery O2 Flow Rate FiO2 09/21/16 14:39 97.8 82 16 112/61 96 Room Air 97.8 Intake and Output 09/21/16 07:00 Intake Total 290 ml Output Total 150 ml Balance 140 ml Intake Oral 240 ml IV Total 50 ml Output Urine Total 150 ml # Voids 2 # Bowel Movements 2 Physical Exam Abdomen: Soft Extremities: No edema General: Alert, Cooperative Lungs: Normal air movement COMMENT PANIAGUA with light red urine Diagnosis DIAGNOSIS CBC - BMP 09/21/16 05:30 Problems: Assessment Assessment Problems Medical Problems: (1) Hydronephrosis Status: Acute (2) Urinary incontinence Status: Acute (3) UTI (lower urinary tract infection) Status: Acute (4) UTI (urinary tract infection) Status: Acute (5) Weakness Status: Acute Plan Plan of Care - Cont paniagua for now. May consider d/c paniagua prior to discharge and allow patient to conduct CIC 4 times per day - Follow Cr. Consider replacing stents if Cr does not continue to improve. - Abx per primary team Comment Review of Relevant I have reviewed the following items anastasiya (where applicable) has been applied. Labs Laboratory Tests Test 09/20/16 09:03 09/20/16 09:21 09/20/16 10:20 09/20/16 17:01 Urine Collection Type U cath Urine Color Yellow Urine Clarity Turbid Urine pH 6.5 Urine Specific [place] 1.010 Urine Protein 100mg/dL (NEG-TRACE) Urine Glucose (UA) 100mg/dL (NEG) Urine Ketones (Stick) Negativemg/dL (NEG) Urine Blood Large (NEG) Urine Nitrite Negative (NEG) Urine Bilirubin Negative (NEG) Urine Urobilinogen Dipstick 0.2mg/dL (0.2 mg/dL) Urine Leukocyte Esterase Large (NEG) Urine RBC 11-20/HPF (0-2) Urine WBC Tntc/HPF (0-4) Urine Squamous Epithelial Cells Few/LPF Urine Bacteria Few/HPF (0-FEW) Urine Mucus Slight/LPF Urine Yeast Present/HPF Influenza Type A Antigen Negative (NEGATIVE) Influenza Type B Antigen Negative (NEGATIVE) White Blood Count 9.0x10^3/uL (4.0-11.0) Red Blood Count 3.86x10^6/uL (3.50-5.40) Hemoglobin 11.7g/dL (12.0-15.5) Hematocrit 35.5% (36.0-47.0) Mean Corpuscular Volume 92fL (79-100) Mean Corpuscular Hemoglobin 30pg (25-35) Mean Corpuscular Hemoglobin Concent 33g/dL (31-37) Red Cell Distribution Width 14.9% (11.5-14.5) Platelet Count 281x10^3/uL (140-400) Neutrophils (%) (Auto) 67% (31-73) Lymphocytes (%) (Auto) 24% (24-48) Monocytes (%) (Auto) 8% (0-9) Eosinophils (%) (Auto) 0% (0-3) Basophils (%) (Auto) 1% (0-3) Neutrophils # (Auto) 6.0x10^3uL (1.8-7.7) Lymphocytes # (Auto) 2.2x10^3/uL (1.0-4.8) Monocytes # (Auto) 0.7x10^3/uL (0.0-1.1) Eosinophils # (Auto) 0.0x10^3/uL (0.0-0.7) Basophils # (Auto) 0.1x10^3/uL (0.0-0.2) Prothrombin Time 13.6SEC (11.7-14.0) Prothromb Time International Ratio 1.1 (0.8-1.1) Sodium Level 142mmol/L (136-145) Potassium Level 5.5mmol/L (3.5-5.1) Chloride Level 105mmol/L (98-107) Carbon Dioxide Level 24mmol/L (21-32) Anion Gap 13 (6-14) Blood Urea Nitrogen 63mg/dL (7-20) Creatinine 2.9mg/dL (0.6-1.0) Estimated GFR (Cockcroft-Gault) 15.9 Glucose Level 298mg/dL (70-99) Calcium Level 8.5mg/dL (8.5-10.1) Magnesium Level 2.3mg/dL (1.8-2.4) Total Bilirubin 0.3mg/dL (0.2-1.0) Direct Bilirubin 0.1mg/dL (0.0-0.2) Aspartate Amino Transf (AST/SGOT) 18U/L (15-37) Alanine Aminotransferase (ALT/SGPT) 9U/L (14-59) Alkaline Phosphatase 116U/L (46-116) Creatine Kinase 71U/L (26-192) Creatine Kinase MB (Mass) 0.6ng/mL (0.0-3.6) Creatine Kinase MB Relative Index % (0-4) Troponin I Quantitative < 0.017ng/mL (0.000-0.055) UY-Ubt-U-Type Natriuretic Peptide 640pg/mL (0-124) Total Protein 8.8g/dL (6.4-8.2) Albumin 3.1g/dL (3.4-5.0) Lipase 119U/L (73-393) Thyroid Stimulating Hormone (TSH) 3.538uIU/mL (0.358-3.74) Glucose (Fingerstick) 392mg/dL (70-99) Test 09/20/16 17:40 09/20/16 20:40 09/20/16 23:35 09/21/16 05:30 Troponin I Quantitative < 0.017ng/mL (0.000-0.055) < 0.017ng/mL (0.000-0.055) Glucose (Fingerstick) 262mg/dL (70-99) White Blood Count 8.4x10^3/uL (4.0-11.0) Red Blood Count 3.64x10^6/uL (3.50-5.40) Hemoglobin 10.8g/dL (12.0-15.5) Hematocrit 33.6% (36.0-47.0) Mean Corpuscular Volume 92fL (79-100) Mean Corpuscular Hemoglobin 30pg (25-35) Mean Corpuscular Hemoglobin Concent 32g/dL (31-37) Red Cell Distribution Width 14.9% (11.5-14.5) Platelet Count 250x10^3/uL (140-400) Neutrophils (%) (Auto) 53% (31-73) Lymphocytes (%) (Auto) 34% (24-48) Monocytes (%) (Auto) 12% (0-9) Eosinophils (%) (Auto) 1% (0-3) Basophils (%) (Auto) 0% (0-3) Neutrophils # (Auto) 4.4x10^3uL (1.8-7.7) Lymphocytes # (Auto) 2.9x10^3/uL (1.0-4.8) Monocytes # (Auto) 1.0x10^3/uL (0.0-1.1) Eosinophils # (Auto) 0.1x10^3/uL (0.0-0.7) Basophils # (Auto) 0.0x10^3/uL (0.0-0.2) Sodium Level 138mmol/L (136-145) Potassium Level 4.2mmol/L (3.5-5.1) Chloride Level 103mmol/L (98-107) Carbon Dioxide Level 23mmol/L (21-32) Anion Gap 12 (6-14) Blood Urea Nitrogen 60mg/dL (7-20) Creatinine 2.8mg/dL (0.6-1.0) Estimated GFR (Cockcroft-Gault) 16.5 BUN/Creatinine Ratio 21 (6-20) Glucose Level 285mg/dL (70-99) Calcium Level 8.2mg/dL (8.5-10.1) Total Bilirubin 0.2mg/dL (0.2-1.0) Aspartate Amino Transf (AST/SGOT) 11U/L (15-37) Alanine Aminotransferase (ALT/SGPT) 13U/L (14-59) Alkaline Phosphatase 97U/L (46-116) Total Protein 7.5g/dL (6.4-8.2) Albumin 2.5g/dL (3.4-5.0) Albumin/Globulin Ratio 0.5 (1.0-1.7) Test 09/21/16 07:25 09/21/16 11:05 09/21/16 16:21 Glucose (Fingerstick) 252mg/dL (70-99) 209mg/dL (70-99) 106mg/dL (70-99) Laboratory Tests Test 09/20/16 20:40 09/20/16 23:35 09/21/16 05:30 09/21/16 07:25 Glucose (Fingerstick) 262mg/dL (70-99) 252mg/dL (70-99) Troponin I Quantitative < 0.017ng/mL (0.000-0.055) White Blood Count 8.4x10^3/uL (4.0-11.0) Red Blood Count 3.64x10^6/uL (3.50-5.40) Hemoglobin 10.8g/dL (12.0-15.5) Hematocrit 33.6% (36.0-47.0) Mean Corpuscular Volume 92fL (79-100) Mean Corpuscular Hemoglobin 30pg (25-35) Mean Corpuscular Hemoglobin Concent 32g/dL (31-37) Red Cell Distribution Width 14.9% (11.5-14.5) Platelet Count 250x10^3/uL (140-400) Neutrophils (%) (Auto) 53% (31-73) Lymphocytes (%) (Auto) 34% (24-48) Monocytes (%) (Auto) 12% (0-9) Eosinophils (%) (Auto) 1% (0-3) Basophils (%) (Auto) 0% (0-3) Neutrophils # (Auto) 4.4x10^3uL (1.8-7.7) Lymphocytes # (Auto) 2.9x10^3/uL (1.0-4.8) Monocytes # (Auto) 1.0x10^3/uL (0.0-1.1) Eosinophils # (Auto) 0.1x10^3/uL (0.0-0.7) Basophils # (Auto) 0.0x10^3/uL (0.0-0.2) Sodium Level 138mmol/L (136-145) Potassium Level 4.2mmol/L (3.5-5.1) Chloride Level 103mmol/L (98-107) Carbon Dioxide Level 23mmol/L (21-32) Anion Gap 12 (6-14) Blood Urea Nitrogen 60mg/dL (7-20) Creatinine 2.8mg/dL (0.6-1.0) Estimated GFR (Cockcroft-Gault) 16.5 BUN/Creatinine Ratio 21 (6-20) Glucose Level 285mg/dL (70-99) Calcium Level 8.2mg/dL (8.5-10.1) Total Bilirubin 0.2mg/dL (0.2-1.0) Aspartate Amino Transf (AST/SGOT) 11U/L (15-37) Alanine Aminotransferase (ALT/SGPT) 13U/L (14-59) Alkaline Phosphatase 97U/L (46-116) Total Protein 7.5g/dL (6.4-8.2) Albumin 2.5g/dL (3.4-5.0) Albumin/Globulin Ratio 0.5 (1.0-1.7) Test 09/21/16 11:05 09/21/16 16:21 Glucose (Fingerstick) 209mg/dL (70-99) 106mg/dL (70-99) Medications Current Medications Ceftriaxone Sodium (Rocephin 1gm Ivpb For Omni) 50 ml @ 100 mls/hr 1X ONCE IV Last administered on 09/20/16 11:35; Start 09/20/16 at 11:15; Stop 09/20/16 at 11:44; Status DC Ondansetron HCl 4 mg 4 mg PRN Q8HRS PRN IV NAUSEA/VOMITING; Start 09/20/16 at 11:15; Stop 09/20/16 at 14:49; Status DC Ceftriaxone Sodium/Sodium Chloride (Rocephin/Iv Sodium Chloride 0.9% 50ml) 50 ml @ 100 mls/hr Q24H IV Last administered on 09/21/16 12:38; Start 09/21/16 at 12:00 Acetaminophen (Tylenol) 325 mg PRN Q6HRS PRN PO MILD PAIN / TEMP; Start at 14:45 Acetaminophen/ Hydrocodone Bitart (Lortab 5/325) 1 tab PRN Q6HRS PRN PO MODERATE TO SEVERE PAIN; Start 09/20/16 at 14:45 Hydralazine HCl (Apresoline) 10 mg PRN Q4HRS PRN IVP ELEVATED BP, SEE COMMENTS ; Start 09/20/16 at 14:45 Ondansetron HCl (Zofran) 4 mg PRN Q8HRS PRN IV NAUSEA/VOMITING; Start 09/20/16 at 14:45 Albuterol Sulfate (Ventolin Neb Soln) 2.5 mg PRN Q4HRS PRN NEB SHORTNESS OF BREATH; Start 09/20/16 at 14:45 Insulin Aspart (Novolog) 0-9 UNITS TIDWMEALS SQ Last administered on 09/21/16 12:51; Start 09/20/16 at 17:00 Dextrose 12.5 gm PRN Q15MIN PRN IV SEE COMMENTS; Start 09/20/16 at 14:45 Ascorbic Acid (Vitamin C) 500 mg DAILY08 PO Last administered on 09/21/16 08: 20; Start 09/21/16 at 08:00 Aspirin (Ecotrin) 81 mg DAILY08 PO Last administered on 09/21/16 08:20; Start 09/21/16 at 08:00 Carvedilol (Coreg) 3.125 mg DAILY PO Last administered on 09/21/16 08:20; Start 09/21/16 at 09:00 Simvastatin (Zocor) 40 mg QHS PO Last administered on 09/20/16 21:18; Start at 21:00 Sodium Bicarbonate (Sodium Bicarbonate) 650 mg BID PO Last administered on 09/21 08:19; Start 09/20/16 at 21:00 Insulin Aspart (Novolog) 13 units TIDAC SQ Last administered on 09/21/16 12:50 ; Start 09/20/16 at 16:30 Insulin Detemir (Levemir) 23 units QHS SQ Last administered on 09/20/16 21:30 ; Start 09/20/16 at 21:00 Fluconazole (Diflucan) 100 mg DAILY PO Last administered on 09/21/16 08:20; Start 09/20/16 at 15:30 Sodium Polystyrene Sulfonate (Kayexalate) 30 gm 1X ONCE PO Last administered on 09/20/16 16:33; Start 09/20/16 at 15:30; Stop 09/20/16 at 15:31; Status DC Insulin Aspart 20 units 20 units 1X STAT SQ Last administered on 09/20/16 17: 50; Start 09/20/16 at 17:50; Stop 09/20/16 at 17:53; Status DC Sodium Chloride (Iv Sodium Chloride 0.9% 1000ml Bag) 1,000 ml @ 75 mls/hr [id number] IV Last administered on 09/21/16 12:38; Start 09/21/16 at 10:45 Active Scripts Active Reported Ferrous Sulfate 140 Mg Tablet.er 140 Mg PO Lantus Solostar (Insulin Glargine,Hum.rec.anlog) 100 Unit/1 Ml Insuln.pen 23 Unit SQ QHS Last dose given: 08-20-14 (;00 p.m. Next dose due: tonight Novolog (Insulin Aspart) 100 Unit/1 Ml Cartridge 13 Unit SQ TIDAC Last dose given: 11:30 a.m. Next dose due: With next meal Vitamin C (Ascorbic Acid) 500 Mg Tablet 500 Mg PO DAILY08 Simvastatin 40 Mg Tablet 1 Tab PO QHS Last dose given: 08-20-14 9:00 p.m. Next dose due: tonjulien Carvedilol 3.125 Mg Tablet 1 Tab PO DAILY Last dose given: 9:00 a.m. Next dose due: 08-22-14 9:00 a.m. Sodium Bicarbonate 650 Mg Tablet 2 Tab PO BID Last dose given: 9:00 a.m. Next dose due: tonjulien Aspir 81 (Aspirin) 81 Mg Tablet. 1 Tab PO DAILY08 Vitals/I & O Vital Sign - Last 24 Hours 09/20/16 09/20/16 09/21/16 09/21/16 19:00 23:09 03:35 07:00 Temp 98.0 98.1 96.3 98.1 98.0 98.1 96.3 98.1 Pulse 100 105 95 87 Resp 20 20 18 16 B/P 124/74 99/56 109/63 108/55 Pulse Ox 97 93 96 96 O2 Delivery Room Air Room Air Room Air Room Air 09/21/16 09/21/16 09/21/16 09/21/16 08:00 08:20 10:31 14:39 Temp 97.5 97.8 97.5 97.8 Pulse 87 83 82 Resp 16 B/P 108/55 113/57 112/61 Pulse Ox 95 96 O2 Delivery Room Air Room Air Room Air Intake and Output 09/20/16 09/20/16 09/21/16 15:00 23:00 07:00 Intake Total 50 ml 240 ml Output Total 150 ml Balance 50 ml 240 ml -150 ml HAWA VORA MD Sep 21, 2016 18:13
[2016-09-21 19:00] VITALS: BP 119/60
[2016-09-21] MEDS: SIMVASTATIN 40 MG TABLET. PO SCH (20:50)
[2016-09-21] MEDS: INSULIN DETEMIR 300 UNITS/3 ML INSULN.PEN. SQ SCH (21:31)
[2016-09-21 23:12] VITALS: BP 113/66
[2016-09-22] MEDS: IV NORMAL SALINE 1000ML BAG 1,000 ML IV SCH ×2 (01:34→13:25)
[2016-09-22 03:00] VITALS: BP 130/72
[2016-09-22 05:52] LABS: CALCIUM 8.2 mg/dL (8.5-10.1); CREATININE 2.5 mg/dL (0.6-1.0); GFR 18.8; POTASSIUM 4.1 mmol/L (3.5-5.1)
[2016-09-22 07:00] VITALS: BP 145/77
[2016-09-22] MEDS: CARVEDILOL 3.125 MG TABLET PO SCH (08:14)
[2016-09-22] MEDS: ASPIRIN ENTERIC COATED 81 MG TABLET.DR. PO SCH (08:14)
[2016-09-22] MEDS: ASCORBIC ACID 500 MG TABLET PO SCH (08:14)
[2016-09-22] MEDS: SODIUM BICARBONATE 650 MG TABLET. PO SCH (08:14)
[2016-09-22] MEDS: FLUCONAZOLE 100 MG TABLET. PO SCH (08:14)
[2016-09-22] MEDS: INSULIN ASPART 300 UNITS/3 ML INSULN.PEN SQ SCH ×4 (08:19→12:26)
--- NOTE | 2016-09-22 10:10 | PDOC ---
PROGRESS NOTES Chief Complaint Chief Complaint cc: weakness A/P 1. Urinary tract infection. with funguria. 2. Type 1 diabetes mellitus with mild hyperglycemia. 3. Hypertension. 4. Chronic kidney disease, 3/4.? TWYLA 5. Prior history of Urinary stents. Plan IV Rocephin Gee placed per Urology Nephrology following labs reviewed SSI with Levemir DVT prophylaxis s PT/OT Intake and out put. Anticipated DC today home If nephrology agrees follow up with Dr Ritchie and Dr Escalante. . History of Present Illness History of Present Illness no fever no chills no chest pain Vitals Vitals Vital Signs Date Time Temp Pulse Resp B/P Pulse Ox O2 Delivery O2 Flow Rate FiO2 09/22/16 08:14 75 130/72 09/22/16 08:00 Room Air 09/22/16 07:00 98.3 17 95 98.3 Physical Exam General: Alert, Cooperative Heart: Regular rate, Normal S1, Normal S2 Lungs: Clear Abdomen: Soft Extremities: No edema Labs LABS Laboratory Tests Test 09/21/16 11:05 09/21/16 16:21 09/21/16 21:20 09/22/16 04:44 Glucose (Fingerstick) 209mg/dL (70-99) 106mg/dL (70-99) 236mg/dL (70-99) Sodium Level 140mmol/L (136-145) Potassium Level 4.1mmol/L (3.5-5.1) Chloride Level 105mmol/L (98-107) Carbon Dioxide Level 26mmol/L (21-32) Anion Gap 9 (6-14) Blood Urea Nitrogen 47mg/dL (7-20) Creatinine 2.5mg/dL (0.6-1.0) Estimated GFR (Cockcroft-Gault) 18.8 Glucose Level 180mg/dL (70-99) Calcium Level 8.2mg/dL (8.5-10.1) Test 09/22/16 08:12 Glucose (Fingerstick) 217mg/dL (70-99) Assessment and Plan Assessmemt and Plan Problems Medical Problems: (1) Hydronephrosis Status: Acute (2) Urinary incontinence Status: Acute (3) UTI (lower urinary tract infection) Status: Acute (4) UTI (urinary tract infection) Status: Acute (5) Weakness Status: Acute Problems: Comment Review of Relevant I have reviewed the following items anastasiya (where applicable) has been applied. Labs Laboratory Tests Test 09/20/16 10:20 09/20/16 17:01 09/20/16 17:40 09/20/16 20:40 White Blood Count 9.0x10^3/uL (4.0-11.0) Red Blood Count 3.86x10^6/uL (3.50-5.40) Hemoglobin 11.7g/dL (12.0-15.5) Hematocrit 35.5% (36.0-47.0) Mean Corpuscular Volume 92fL (79-100) Mean Corpuscular Hemoglobin 30pg (25-35) Mean Corpuscular Hemoglobin Concent 33g/dL (31-37) Red Cell Distribution Width 14.9% (11.5-14.5) Platelet Count 281x10^3/uL (140-400) Neutrophils (%) (Auto) 67% (31-73) Lymphocytes (%) (Auto) 24% (24-48) Monocytes (%) (Auto) 8% (0-9) Eosinophils (%) (Auto) 0% (0-3) Basophils (%) (Auto) 1% (0-3) Neutrophils # (Auto) 6.0x10^3uL (1.8-7.7) Lymphocytes # (Auto) 2.2x10^3/uL (1.0-4.8) Monocytes # (Auto) 0.7x10^3/uL (0.0-1.1) Eosinophils # (Auto) 0.0x10^3/uL (0.0-0.7) Basophils # (Auto) 0.1x10^3/uL (0.0-0.2) Prothrombin Time 13.6SEC (11.7-14.0) Prothromb Time International Ratio 1.1 (0.8-1.1) Sodium Level 142mmol/L (136-145) Potassium Level 5.5mmol/L (3.5-5.1) Chloride Level 105mmol/L (98-107) Carbon Dioxide Level 24mmol/L (21-32) Anion Gap 13 (6-14) Blood Urea Nitrogen 63mg/dL (7-20) Creatinine 2.9mg/dL (0.6-1.0) Estimated GFR (Cockcroft-Gault) 15.9 Glucose Level 298mg/dL (70-99) Calcium Level 8.5mg/dL (8.5-10.1) Magnesium Level 2.3mg/dL (1.8-2.4) Total Bilirubin 0.3mg/dL (0.2-1.0) Direct Bilirubin 0.1mg/dL (0.0-0.2) Aspartate Amino Transf (AST/SGOT) 18U/L (15-37) Alanine Aminotransferase (ALT/SGPT) 9U/L (14-59) Alkaline Phosphatase 116U/L (46-116) Creatine Kinase 71U/L (26-192) Creatine Kinase MB (Mass) 0.6ng/mL (0.0-3.6) Creatine Kinase MB Relative Index % (0-4) Troponin I Quantitative < 0.017ng/mL (0.000-0.055) < 0.017ng/mL (0.000-0.055) LN-Yrl-B-Type Natriuretic Peptide 640pg/mL (0-124) Total Protein 8.8g/dL (6.4-8.2) Albumin 3.1g/dL (3.4-5.0) Lipase 119U/L (73-393) Thyroid Stimulating Hormone (TSH) 3.538uIU/mL (0.358-3.74) Glucose (Fingerstick) 392mg/dL (70-99) 262mg/dL (70-99) Test 09/20/16 23:35 09/21/16 05:30 09/21/16 07:25 09/21/16 11:05 Troponin I Quantitative < 0.017ng/mL (0.000-0.055) White Blood Count 8.4x10^3/uL (4.0-11.0) Red Blood Count 3.64x10^6/uL (3.50-5.40) Hemoglobin 10.8g/dL (12.0-15.5) Hematocrit 33.6% (36.0-47.0) Mean Corpuscular Volume 92fL (79-100) Mean Corpuscular Hemoglobin 30pg (25-35) Mean Corpuscular Hemoglobin Concent 32g/dL (31-37) Red Cell Distribution Width 14.9% (11.5-14.5) Platelet Count 250x10^3/uL (140-400) Neutrophils (%) (Auto) 53% (31-73) Lymphocytes (%) (Auto) 34% (24-48) Monocytes (%) (Auto) 12% (0-9) Eosinophils (%) (Auto) 1% (0-3) Basophils (%) (Auto) 0% (0-3) Neutrophils # (Auto) 4.4x10^3uL (1.8-7.7) Lymphocytes # (Auto) 2.9x10^3/uL (1.0-4.8) Monocytes # (Auto) 1.0x10^3/uL (0.0-1.1) Eosinophils # (Auto) 0.1x10^3/uL (0.0-0.7) Basophils # (Auto) 0.0x10^3/uL (0.0-0.2) Sodium Level 138mmol/L (136-145) Potassium Level 4.2mmol/L (3.5-5.1) Chloride Level 103mmol/L (98-107) Carbon Dioxide Level 23mmol/L (21-32) Anion Gap 12 (6-14) Blood Urea Nitrogen 60mg/dL (7-20) Creatinine 2.8mg/dL (0.6-1.0) Estimated GFR (Cockcroft-Gault) 16.5 BUN/Creatinine Ratio 21 (6-20) Glucose Level 285mg/dL (70-99) Calcium Level 8.2mg/dL (8.5-10.1) Total Bilirubin 0.2mg/dL (0.2-1.0) Aspartate Amino Transf (AST/SGOT) 11U/L (15-37) Alanine Aminotransferase (ALT/SGPT) 13U/L (14-59) Alkaline Phosphatase 97U/L (46-116) Total Protein 7.5g/dL (6.4-8.2) Albumin 2.5g/dL (3.4-5.0) Albumin/Globulin Ratio 0.5 (1.0-1.7) Glucose (Fingerstick) 252mg/dL (70-99) 209mg/dL (70-99) Test 09/21/16 16:21 09/21/16 21:20 09/22/16 04:44 09/22/16 08:12 Glucose (Fingerstick) 106mg/dL (70-99) 236mg/dL (70-99) 217mg/dL (70-99) Sodium Level 140mmol/L (136-145) Potassium Level 4.1mmol/L (3.5-5.1) Chloride Level 105mmol/L (98-107) Carbon Dioxide Level 26mmol/L (21-32) Anion Gap 9 (6-14) Blood Urea Nitrogen 47mg/dL (7-20) Creatinine 2.5mg/dL (0.6-1.0) Estimated GFR (Cockcroft-Gault) 18.8 Glucose Level 180mg/dL (70-99) Calcium Level 8.2mg/dL (8.5-10.1) Laboratory Tests Test 09/21/16 11:05 09/21/16 16:21 09/21/16 21:20 09/22/16 04:44 Glucose (Fingerstick) 209mg/dL (70-99) 106mg/dL (70-99) 236mg/dL (70-99) Sodium Level 140mmol/L (136-145) Potassium Level 4.1mmol/L (3.5-5.1) Chloride Level 105mmol/L (98-107) Carbon Dioxide Level 26mmol/L (21-32) Anion Gap 9 (6-14) Blood Urea Nitrogen 47mg/dL (7-20) Creatinine 2.5mg/dL (0.6-1.0) Estimated GFR (Cockcroft-Gault) 18.8 Glucose Level 180mg/dL (70-99) Calcium Level 8.2mg/dL (8.5-10.1) Test 09/22/16 08:12 Glucose (Fingerstick) 217mg/dL (70-99) Microbiology 09/20/16 Urine Culture - Final, Complete 09/20/16 Urine Culture Result 1 (SIL) - Final, Complete Medications Current Medications Ceftriaxone Sodium (Rocephin 1gm Ivpb For Omni) 50 ml @ 100 mls/hr 1X ONCE IV Last administered on 09/20/16t 11:35; Start 09/20/16 at 11:15; Stop 09/20/16 at 11:44; Status DC Ondansetron HCl 4 mg 4 mg PRN Q8HRS PRN IV NAUSEA/VOMITING; Start 09/20/16 at 11:15; Stop 09/20/16 at 14:49; Status DC Ceftriaxone Sodium/Sodium Chloride (Rocephin/Iv Sodium Chloride 0.9% 50ml) 50 ml @ 100 mls/hr Q24H IV Last administered on 09/21/16 12:38; Start 09/21/16 at 12:00 Acetaminophen (Tylenol) 325 mg PRN Q6HRS PRN PO MILD PAIN / TEMP; Start at 14:45 Acetaminophen/ Hydrocodone Bitart (Lortab 5/325) 1 tab PRN Q6HRS PRN PO MODERATE TO SEVERE PAIN; Start 09/20/16 at 14:45 Hydralazine HCl (Apresoline) 10 mg PRN Q4HRS PRN IVP ELEVATED BP, SEE COMMENTS ; Start 09/20/16 at 14:45 Ondansetron HCl (Zofran) 4 mg PRN Q8HRS PRN IV NAUSEA/VOMITING; Start 09/20/16 at 14:45 Albuterol Sulfate (Ventolin Neb Soln) 2.5 mg PRN Q4HRS PRN NEB SHORTNESS OF BREATH; Start 09/20/16 at 14:45 Insulin Aspart (Novolog) 0-9 UNITS TIDWMEALS SQ Last administered on 09/22/16 08:20; Start 09/20/16 at 17:00 Dextrose 12.5 gm PRN Q15MIN PRN IV SEE COMMENTS; Start 09/20/16 at 14:45 Ascorbic Acid (Vitamin C) 500 mg DAILY08 PO Last administered on 09/22/16 08: 14; Start 09/21/16 at 08:00 Aspirin (Ecotrin) 81 mg DAILY08 PO Last administered on 09/22/16 08:14; Start 09/21/16 at 08:00 Carvedilol (Coreg) 3.125 mg DAILY PO Last administered on 09/22/16 08:14; Start 09/21/16 at 09:00 Simvastatin (Zocor) 40 mg QHS PO Last administered on 09/21/16 20:50; Start at 21:00 Sodium Bicarbonate (Sodium Bicarbonate) 650 mg BID PO Last administered on 09/22 08:14; Start 09/20/16 at 21:00 Insulin Aspart (Novolog) 13 units TIDAC SQ Last administered on 09/22/16 08:19 ; Start 09/20/16 at 16:30 Insulin Detemir (Levemir) 23 units QHS SQ Last administered on 09/21/16 21:31 ; Start 09/20/16 at 21:00 Fluconazole (Diflucan) 100 mg DAILY PO Last administered on 09/22/16 08:14; Start 09/20/16 at 15:30 Sodium Polystyrene Sulfonate (Kayexalate) 30 gm 1X ONCE PO Last administered on 09/20/16 16:33; Start 09/20/16 at 15:30; Stop 09/20/16 at 15:31; Status DC Insulin Aspart 20 units 20 units 1X STAT SQ Last administered on 09/20/16 17: 50; Start 09/20/16 at 17:50; Stop 09/20/16 at 17:53; Status DC Sodium Chloride (Iv Sodium Chloride 0.9% 1000ml Bag) 1,000 ml @ 75 mls/hr [id number] IV Last administered on 09/22/16 01:34; Start 09/21/16 at 10:45 Active Scripts Active Reported Ferrous Sulfate 140 Mg Tablet.er 140 Mg PO Lantus Solostar (Insulin Glargine,Hum.rec.anlog) 100 Unit/1 Ml Insuln.pen 23 Unit SQ QHS Last dose given: 08-20-14 (;00 p.m. Next dose due: evangelist Novolog (Insulin Aspart) 100 Unit/1 Ml Cartridge 13 Unit SQ TIDAC Last dose given: 11:30 a.m. Next dose due: With next meal Vitamin C (Ascorbic Acid) 500 Mg Tablet 500 Mg PO DAILY08 Simvastatin 40 Mg Tablet 1 Tab PO QHS Last dose given: 08-20-14 9:00 p.m. Next dose due: evangelist Carvedilol 3.125 Mg Tablet 1 Tab PO DAILY Last dose given: 9:00 a.m. Next dose due: 08-22-14 9:00 a.m. Sodium Bicarbonate 650 Mg Tablet 2 Tab PO BID Last dose given: 9:00 a.m. Next dose due: tonight Aspir 81 (Aspirin) 81 Mg Tablet.dr 1 Tab PO DAILY08 Vitals/I & O Vital Sign - Last 24 Hours 09/21/16 09/21/16 09/21/16 09/21/16 10:31 14:39 19:00 20:00 Temp 97.5 97.8 98.2 97.5 97.8 98.2 Pulse 83 82 96 Resp 18 16 20 B/P 113/57 112/61 119/60 Pulse Ox 95 96 97 O2 Delivery Room Air Room Air Room Air Room Air 09/21/16 09/22/16 09/22/16 09/22/16 23:12 03:00 07:00 08:00 Temp 98.1 97.7 98.3 98.1 97.7 98.3 Pulse 79 75 72 Resp 17 B/P 113/66 130/72 145/77 Pulse Ox 96 94 95 O2 Delivery Room Air Room Air Room Air Room Air 09/22/16 08:14 Pulse 75 B/P 130/72 Intake and Output 09/21/16 09/21/16 09/22/16 15:00 23:00 07:00 Intake Total 200 ml 350 ml Output Total 300 ml 550 ml Balance 200 ml -300 ml -200 ml MUNIR PADILLA MD Sep 22, 2016 10:10
[2016-09-22 10:52] VITALS: BP 163/86
[2016-09-22] MEDS ORDERED: FLUC100T7 PO (11:06)
--- NOTE | 2016-09-22 11:24 | PDOC ---
Renal-Progress Notes Subjective Notes Notes NONE History of Present Illness Hx of present illness BETTER Vitals Vitals Vital Signs Date Time Temp Pulse Resp B/P Pulse Ox O2 Delivery O2 Flow Rate FiO2 09/22/16 10:52 97.9 81 18 163/86 99 Room Air 97.9 Weight Weight [ ] I.O. Intake and Output Intake and Output 09/22/16 07:00 Intake Total 550 ml Output Total 850 ml Balance -300 ml Intake Oral 550 ml Output Urine Total 850 ml Labs Labs Laboratory Tests Test 09/21/16 16:21 09/21/16 21:20 09/22/16 04:44 09/22/16 08:12 Glucose (Fingerstick) 106mg/dL (70-99) 236mg/dL (70-99) 217mg/dL (70-99) Sodium Level 140mmol/L (136-145) Potassium Level 4.1mmol/L (3.5-5.1) Chloride Level 105mmol/L (98-107) Carbon Dioxide Level 26mmol/L (21-32) Anion Gap 9 (6-14) Blood Urea Nitrogen 47mg/dL (7-20) Creatinine 2.5mg/dL (0.6-1.0) Estimated GFR (Cockcroft-Gault) 18.8 Glucose Level 180mg/dL (70-99) Calcium Level 8.2mg/dL (8.5-10.1) Micro Micro Microbiology 09/20/16 Urine Culture - Final, Complete 09/20/16 Urine Culture Result 1 (SIL) - Final, Complete Review of Systems Constitutional: yes: no symptom reported Physical Exam General Appearance: no apparent distress Skin: warm Respiratory: bilateral CTA Heart: S1S2, RRR Abdomen: soft, bowel sounds present Neurology: alert Assessment Assessment IMP TWYLA-RESOLVED CKD STAGE 3 UTI HYPOVOLEMIA-RESOLVED PLAN STOP IVF'S D/C MELANIA TSAI TO D/C PT ALREADY HAS OP RENAL AND UROLOGY F/U MELONIE GUAMAN MD Sep 22, 2016 11:24
[2016-09-22] MEDS: CEFTRIAXONE SODIUM 1 GM in IV NORMAL SALINE 50ML 50 ML IV SCH (12:10)
--- NOTE | 2016-09-23 08:38 | DS ---
DATE OF DISCHARGE: 09/22/2016 DISCHARGE DIAGNOSES: 1. Acute kidney injury with chronic kidney disease 3. 2. Urinary tract infection, fungal. 3. Hyperglycemia, type 2 diabetes mellitus. 4. Prior history of urinary stents. BRIEF HOSPITAL COURSE: A 76-year-old female patient admitted to the hospital with symptoms of weakness and loss of appetite. Her symptomatic presentation is similar to prior urinary tract infections. Her UA showed yeast isolated and she was started on fluconazole and also received IV Rocephin. During hospitalization with IV antibiotics, the patient's symptoms improved and she was seen by Urology and also Gee catheter has been placed. Urology has been recommending to see Dr. Ritchie as scheduled and also ____has been following her as outpatient. Today, she deemed clinically stable enough to go home and follow up with ____ Dr. Ritchie as scheduled. DISCHARGE EXAMINATION: GENERAL: Alert, oriented x 3. HEART: S1, S2 present. LUNGS: Clear. EXTREMITIES: No edema. DISCHARGE DISPOSITION: Home. DISCHARGE CONDITION: DICTATION ENDS HERE MUNIR PADILLA MD DR: SHAUN/anthony JOB#: [id number] / [id number]
== END 2016-09-22 16:30 | disposition home or self-care (01) | DRG 689 ==
LOC: ER 07:41 → 5 SOUTH 09:00 → OBSVTOIN 14:49
PROVIDERS: ADMIT Internal Medicine; ATTEND Internal Medicine
DX: N39.0 Urinary tract infection, site not specified (principal); N17.0 Acute kidney failure with tubular necrosis; N18.4 Chronic kidney disease, stage 4 (severe); N13.30 Unspecified hydronephrosis; E86.0 Dehydration; E10.22 Type 1 diabetes mellitus with diabetic chronic kidney disease; E10.65 Type 1 diabetes mellitus with hyperglycemia; N39.3 Stress incontinence (female) (male); N39.498 Other specified urinary incontinence; N28.9 Disorder of kidney and ureter, unspecified; R33.9 Retention of urine, unspecified; E78.00 Pure hypercholesterolemia, unspecified; E86.1 Hypovolemia; I12.9 Hypertensive chronic kidney disease with stage 1 through stage 4 chronic kidney disease, or unspecified chronic kidney disease; I25.10 Atherosclerotic heart disease of native coronary artery without angina pectoris; Z83.3 Family history of diabetes mellitus; Z91.040 Latex allergy status; Z87.440 Personal history of urinary (tract) infections; Z79.4 Long term (current) use of insulin; Z95.1 Presence of aortocoronary bypass graft; Z98.890 Other specified postprocedural states; Z79.1 Long term (current) use of non-steroidal anti-inflammatories (NSAID); Z79.82 Long term (current) use of aspirin; Z79.899 Other long term (current) drug therapy
CPT/HCPCS: 36415; 71010; 76770; 80048; 80053; 80076; 81001; 82550; 82553; 82947; 83690; 83735; 83880; 84443; 84484; 85027; 85610; 87086; 87804; 93005; 94250; 96365; A4314; G0378; G0379; J0690; J0696; J1815; J7030; 97530; 99285-25

== ENCOUNTER 2016-11-26 14:37 | Inpatient (IN) | payer MEDICARE, MEDICAID ==
[~2016-11-26] VITALS: Ht 162.6 cm; Wt 68.0 kg
[~2016-11-26 14:37] MED LIST changes: +FLUC100T7 PO
--- NOTE | 2016-11-26 15:25 | RAD ---
Indication fever. Weakness. A single view of the chest was obtained. Comparison is made to an examination September 20, 2016. Heart size is at the upper limits of normal but unchanged. There is no congestive heart failure. There is no focal infiltrate. A significant change in the appearance of the chest compared to the previous exam is not seen. Postoperative changes are noted. IMPRESSION: No acute finding. No significant change
--- NOTE | 2016-11-26 15:45 | PHYS DOC ---
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 Patient states that she has been having gradually worsening symptoms over the past week. Patient has history of coronary artery disease, chronic renal insufficiency, and type 2 diabetes mellitus. Patient has had history of urinary tract infection and states that her symptoms feel similar to previous episodes. Patient states that she has had foul-smelling urine. Patient denies any pain currently. Patient does admit to chills. Patient states that she is unable to stand for normal periods of time because of feeling lightheaded and weak. Patient has not taken any medications to help with her symptoms at this time. Review of Systems Review of Systems Constitutional: Chills, generalized fatigue, lightheadedness [] Eyes: Denies change in visual acuity, redness, or eye pain [] HENT: Denies nasal congestion or sore throat [] Respiratory: Denies cough or shortness of breath [] Cardiovascular: Denies chest pain or edema [] GI: Denies abdominal pain, nausea, vomiting, bloody stools or diarrhea [] : Foul-smelling urine [] Musculoskeletal: Denies back pain or joint pain [] Integument: Denies rash or skin lesions [] Neurologic: Denies headache, focal weakness or sensory changes [] Current Medications Current Medications Current Medications Medications (Trade) Dose Ordered Sig/Claudette Start Time Stop Time Status Last Admin Dose Admin Ceftriaxone Sodium (Rocephin 1gm Ivpb For Omni) 50 ml @ 100 mls/hr 1X ONCE 11/26/16 18:15 11/26/16 18:44 DC 11/26/16 18:28 100 MLS/HR Sodium Chloride 1,000 ml @ 2,040 mls/hr Q30M 11/26/16 15:07 11/26/16 16:07 DC 11/26/16 18:28 2,040 MLS/HR Allergies Allergies Allergies Coded Allergies Type Severity Reaction Last Updated Verified latex Allergy Intermediate Rash 08/06/16 Yes Physical Exam Physical Exam Constitutional: Alert, febrile, appears ill. [] HENT: Normocephalic, atraumatic, bilateral external ears normal, oropharynx moist, no oral exudates, nose normal. [] Eyes: PERRLA, EOMI, conjunctiva normal, no discharge. [] Neck: Normal range of motion, no tenderness, supple, no stridor. [] Cardiovascular: Tachycardia, regular rhythm, no murmur [] Lungs & Thorax: Bilateral breath sounds clear to auscultation [] Abdomen: Bowel sounds normal, soft, no tenderness, no masses, no pulsatile masses. [] Skin: Warm, dry, no erythema, no rash. [] Back: No tenderness, no CVA tenderness. [] Extremities: No tenderness, no cyanosis, no clubbing, ROM intact, no edema. [] Neurologic: Alert and oriented X 3, normal motor function, normal sensory function, no focal deficits noted. [] Current Patient Data Vital Signs Vital Signs Date Time Temp Pulse Resp B/P Pulse Ox O2 Delivery O2 Flow Rate FiO2 11/26/16 18:00 106 18 149/65 93 Room Air 11/26/16 14:58 101.7 101.7 Lab Values Laboratory Tests Test 11/26/16 15:25 11/26/16 15:55 11/26/16 17:15 11/26/16 18:00 Influenza Type A Antigen Negative (NEGATIVE) Influenza Type B Antigen Negative (NEGATIVE) White Blood Count 7.1x10^3/uL (4.0-11.0) Red Blood Count 3.59x10^6/uL (3.50-5.40) Hemoglobin 10.8g/dL (12.0-15.5) L Hematocrit 33.2% (36.0-47.0) L Mean Corpuscular Volume 93fL (79-100) Mean Corpuscular Hemoglobin 30pg (25-35) Mean Corpuscular Hemoglobin Concent 33g/dL (31-37) Red Cell Distribution Width 14.8% (11.5-14.5) H Platelet Count 318x10^3/uL (140-400) Neutrophils (%) (Auto) 78% (31-73) H Lymphocytes (%) (Auto) 11% (24-48) L Monocytes (%) (Auto) 10% (0-9) H Eosinophils (%) (Auto) 1% (0-3) Basophils (%) (Auto) 1% (0-3) Neutrophils # (Auto) 5.5x10^3uL (1.8-7.7) Lymphocytes # (Auto) 0.8x10^3/uL (1.0-4.8) L Monocytes # (Auto) 0.7x10^3/uL (0.0-1.1) Eosinophils # (Auto) 0.1x10^3/uL (0.0-0.7) Basophils # (Auto) 0.1x10^3/uL (0.0-0.2) Sodium Level 136mmol/L (136-145) Potassium Level 5.0mmol/L (3.5-5.1) Chloride Level 99mmol/L (98-107) Carbon Dioxide Level 26mmol/L (21-32) Anion Gap 11 (6-14) Blood Urea Nitrogen 54mg/dL (7-20) H Creatinine 3.3mg/dL (0.6-1.0) H Estimated GFR (Cockcroft-Gault) 13.7 BUN/Creatinine Ratio 16 (6-20) Glucose Level 169mg/dL (70-99) H Lactic Acid Level 1.5mmol/L (0.4-2.0) 1.1mmol/L (0.4-2.0) Calcium Level 9.3mg/dL (8.5-10.1) Total Bilirubin 0.4mg/dL (0.2-1.0) Aspartate Amino Transferase (AST) 18U/L (15-37) Alanine Aminotransferase (ALT) 19U/L (14-59) Alkaline Phosphatase 154U/L (46-116) H Total Protein 8.9g/dL (6.4-8.2) H Albumin 2.9g/dL (3.4-5.0) L Albumin/Globulin Ratio 0.5 (1.0-1.7) L Lipase 114U/L (73-393) Procalcitonin 0.13ng/mL (0.00-0.10) H Urine Color Yellow Urine Clarity Cloudy Urine pH 7.5 Urine Specific [place] 1.010 Urine Protein 100mg/dL (NEG-TRACE) Urine Glucose (UA) Negativemg/dL (NEG) Urine Ketones (Stick) Negativemg/dL (NEG) Urine Blood Large (NEG) Urine Nitrite Negative (NEG) Urine Bilirubin Negative (NEG) Urine Urobilinogen Dipstick 0.2mg/dL (0.2 mg/dL) Urine Leukocyte Esterase Large (NEG) Urine RBC Tntc/HPF (0-2) Urine WBC 5-10/HPF (0-4) Urine Squamous Epithelial Cells Occ/LPF Urine Bacteria 0/HPF (0-FEW) Urine Mucus Slight/LPF Laboratory Tests 11/26/16 15:55 Laboratory Tests 11/26/16 15:55 EKG EKG Interpreted by me: Heart rate 106, sinus tachycardia, leftward axis, no acute ST /T-wave abnormalities present [] Radiology/Procedures Radiology/Procedures [facility] [address] [place] [address] IMAGING REPORT Signed PATIENT: BRYANT LOCKHART ACCOUNT: [id number] : 1940 LOCATION: ER AGE: 76 SEX: F EXAM STATUS: PRE ER ORD. PHYSICIAN: JUAN RUTLEDGE MD REASON: fever, weakness, rule out acute cardiopulmonary abnormality PROCEDURE: PORTABLE CHEST 1V Indication fever. Weakness. A single view of the chest was obtained. Comparison is made to an examination September 20, 2016. Heart size is at the upper limits of normal but unchanged. There is no congestive heart failure. There is no focal infiltrate. A significant change in the appearance of the chest compared to the previous exam is not seen. Postoperative changes are noted. IMPRESSION: No acute finding. No significant change DICTATED and SIGNED BY: RUSS THURMAN MD DATE: 11/26/16 1521 CC: JUAN RUTLEDGE MD; LISA CALHOUN ~ [] Course & Med Decision Making Course & Med Decision Making Pertinent Labs and Imaging studies reviewed. (See chart for details) Patient was started on IV fluids, fentanyl, and Zofran. Patient found have evidence urinary tract infection and started on IV Rocephin. Due to presence of fever and tachycardia the patient meets early sepsis criteria. Patient will need to be admitted to the hospital due to age and comorbidity of diabetes mellitus. I spoke with Dr. Angel who accepted care of patient in hospital. Dragon Disclaimer Dragon Disclaimer This electronic medical record was generated, in whole or in part, using a voice recognition dictation system. Departure Departure Impression: Primary Impression: UTI (urinary tract infection) Additional Impressions: Sepsis Chronic kidney disease, stage IV (severe) Moderate protein malnutrition Disposition: HOME, SELF-CARE Admitting Physician: Christian Angel Condition: IMPROVED Referrals: LISA CALHOUN (PCP) Problem Qualifiers Primary Impression: UTI (urinary tract infection) Urinary tract infection type: site unspecified Hematuria presence: without hematuria Qualified Code: N39.0 - Urinary tract infection, site not specified Additional Impressions: Sepsis Sepsis type: sepsis due to unspecified organism Qualified Code: A41.9 - Sepsis, unspecified organism JUAN RUTLEDGE MD Nov 26, 2016 15:45
[2016-11-26] MEDS: IV NORMAL SALINE 1000ML BAG 2,040 ML IV SCH ×3 (15:55→18:28)
[2016-11-26 16:05] LABS: BASO # 0.1 x10^3/uL (0.0-0.2); BASO % 1 % (0-3); EOS % 1 % (0-3); HEMATOCRIT 33.2 % (36.0-47.0); HEMOGLOBIN 10.8 g/dL (12.0-15.5); LYMPH # 0.8 x10^3/uL (1.0-4.8); LYMPH % 11 % (24-48); MEAN CORPUSCULAR HEMOGLOBIN 30 pg (25-35); MEAN CORPUSCULAR HGB CONC 33 g/dL (31-37); MEAN CORPUSCULAR VOLUME 93 fL (79-100); MONO % 10 % (0-9); NEUT % 78 % (31-73); PLATELET COUNT 318 x10^3/uL (140-400); RED BLOOD COUNT 3.59 x10^6/uL (3.50-5.40); RED CELL DISTRIBUTION WIDTH 14.8 % (11.5-14.5); WHITE BLOOD COUNT 7.1 x10^3/uL (4.0-11.0)
[2016-11-26 16:08] LABS: OBC FLU VALID
--- NOTE | 2016-11-26 16:13 | EKG ---
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
[2016-11-26 16:21] LABS: CALCIUM 9.3 mg/dL (8.5-10.1); CREATININE 3.3 mg/dL (0.6-1.0); GFR 13.7
[2016-11-26 16:27] LABS: ALBUMIN 2.9 g/dL (3.4-5.0); ALBUMIN/GLOBULIN RATIO 0.5 (1.0-1.7); TOTAL BILIRUBIN 0.4 mg/dL (0.2-1.0); TOTAL PROTEIN 8.9 g/dL (6.4-8.2)
[2016-11-26 16:50] LABS: PROCALCITONIN 0.13 ng/mL (0.00-0.10)
[2016-11-26] MEDS ORDERED: CEFTRIAXONE 1GM IVPB FOR OMNI 50 ML IV ONE (18:15)
[2016-11-26 18:16] LABS: BILIRUBIN,URINE NEGATIVE (NEG); GLUCOSE,URINE NEGATIVE (NEG); NITRITE,URINE NEGATIVE (NEG); PH,URINE 7.5; PROTEIN,URINE 100 mg/dL (NEG-TRACE); UROBILINOGEN,URINE 0.2 mg/dL (0.2 mg/dL)
[2016-11-26] MEDS ORDERED: IV NORMAL SALINE 1000ML BAG 1,000 ML IV SCH (18:39)
[2016-11-26] MEDS ORDERED: ONDANSETRON PF 4 MG/2 ML VIAL. IV PRN (18:45)
[2016-11-26] MEDS ORDERED: FENTANYL PF 100 MCG/2 ML VIAL. IV PRN (18:45)
[2016-11-26] MEDS ORDERED: ACETAMINOPHEN 325 MG TABLET. PO PRN (18:45)
[2016-11-26 18:58] LABS: BACTERIA,URINE 0 /HPF (0-FEW); RBC,URINE TNTC /HPF (0-2); SQUAMOUS EPITHELIAL CELL,UR OCC /LPF
[2016-11-26 20:46] VITALS: BP 116/83
--- NOTE | 2016-11-26 20:50 | PDOC1 ---
History and Physical Past Medical History Cardiovascular: CAD, HTN GI: Other Heme/Onc: No pertinent hx Psych: No pertinent hx Rheumatologic: No pertinent hx Infectious disease: No pertinent hx Renal/: Chronic renal insuff, UTI, Other Endocrine: Diabetes Past Surgical History Past Surgical History: Cystoscopy, Other (urinary stents) Family History Family History: No Significant, Other (father- DM) Social History ALCOHOL: none Drugs: None Current Problem List Problem List Problems Medical Problems: (1) Sepsis Status: Acute (2) UTI (urinary tract infection) Status: Acute (3) UTI (urinary tract infection) Status: Acute Current Medications Current Medications Current Medications Medications (Trade) Dose Ordered Sig/Claudette Start Time Stop Time Status Last Admin Dose Admin Acetaminophen 650 mg 650 mg PRN Q4HRS PRN 11/26/16 18:45 11/27/16 18:44 Ceftriaxone Sodium/Sodium Chloride (Rocephin/Iv Sodium Chloride 0.9% 50ml) 50 ml @ 100 mls/hr Q24H 11/27/16 18:00 Ceftriaxone Sodium (Rocephin 1gm Ivpb For Omni) 50 ml @ 100 mls/hr 1X ONCE 11/26/16 18:15 11/26/16 18:44 DC 11/26/16 18:28 100 MLS/HR Fentanyl Citrate 50 mcg 50 mcg PRN Q2HR PRN 11/26/16 18:45 11/27/16 18:44 Ondansetron HCl (Zofran) 4 mg PRN Q8HRS PRN 11/26/16 18:45 11/27/16 18:44 Sodium Chloride (Iv Sodium Chloride 0.9% 1000ml Bag) 1,000 ml @ 100 mls/hr Q10H 11/26/16 18:39 11/27/16 18:38 11/26/16 20:44 100 MLS/HR Allergies Allergies Allergies Coded Allergies Type Severity Reaction Last Updated Verified latex Allergy Intermediate Rash 08/06/16 Yes ROS Review of System CONSTITUTIONAL: Fever or chills, fatigues, loss of appetite. EYES: No recent changes SKIN: No rash or itching CARDIOVASCULAR: No chest pain, syncope, palpitations, or edema RESPIRATORY: No SOB or cough GASTROINTESTINAL: No nausea, vomiting or abdominal pain NEUROLOGICAL: No headaches or weakness ENDOCRINE: No cold or heat intolerance GENITOURINARY: No urgency or frequency of urination MUSCULOSKELETAL: No back pain or joint pain LYMPHATICS: No enlarged lymph nodes PSYCHIATRIC: No anxiety or depression Physical Exam Physical Exam GEN.: No apparent distress. Alert and oriented. dehydrated. HEENT: Head is normocephalic, atraumatic NECK: Supple. no jvd LUNGS: Clear to auscultation. normal airflow HEART: RRR, S1, S2 present. Peripheral pulses intact ABDOMEN: Soft, nontender. Positive bowel sounds. EXTREMITIES: Without any cyanosis. NEUROLOGIC: Normal speech, normal tone PSYCHIATRIC: Normal affect, normal mood. SKIN: no rash Vitals Vitals Vital Signs Date Time Temp Pulse Resp B/P Pulse Ox O2 Delivery O2 Flow Rate FiO2 11/26/16 20:46 98.3 98 18 116/83 98 98.3 11/26/16 20:29 Room Air Labs Labs Laboratory Tests Test 11/26/16 15:25 11/26/16 15:55 11/26/16 17:15 11/26/16 18:00 Influenza Type A Antigen Negative (NEGATIVE) Influenza Type B Antigen Negative (NEGATIVE) White Blood Count 7.1x10^3/uL (4.0-11.0) Red Blood Count 3.59x10^6/uL (3.50-5.40) Hemoglobin 10.8g/dL (12.0-15.5) Hematocrit 33.2% (36.0-47.0) Mean Corpuscular Volume 93fL (79-100) Mean Corpuscular Hemoglobin 30pg (25-35) Mean Corpuscular Hemoglobin Concent 33g/dL (31-37) Red Cell Distribution Width 14.8% (11.5-14.5) Platelet Count 318x10^3/uL (140-400) Neutrophils (%) (Auto) 78% (31-73) Lymphocytes (%) (Auto) 11% (24-48) Monocytes (%) (Auto) 10% (0-9) Eosinophils (%) (Auto) 1% (0-3) Basophils (%) (Auto) 1% (0-3) Neutrophils # (Auto) 5.5x10^3uL (1.8-7.7) Lymphocytes # (Auto) 0.8x10^3/uL (1.0-4.8) Monocytes # (Auto) 0.7x10^3/uL (0.0-1.1) Eosinophils # (Auto) 0.1x10^3/uL (0.0-0.7) Basophils # (Auto) 0.1x10^3/uL (0.0-0.2) Sodium Level 136mmol/L (136-145) Potassium Level 5.0mmol/L (3.5-5.1) Chloride Level 99mmol/L (98-107) Carbon Dioxide Level 26mmol/L (21-32) Anion Gap 11 (6-14) Blood Urea Nitrogen 54mg/dL (7-20) Creatinine 3.3mg/dL (0.6-1.0) Estimated GFR (Cockcroft-Gault) 13.7 BUN/Creatinine Ratio 16 (6-20) Glucose Level 169mg/dL (70-99) Lactic Acid Level 1.5mmol/L (0.4-2.0) 1.1mmol/L (0.4-2.0) Calcium Level 9.3mg/dL (8.5-10.1) Total Bilirubin 0.4mg/dL (0.2-1.0) Aspartate Amino Transf (AST/SGOT) 18U/L (15-37) Alanine Aminotransferase (ALT/SGPT) 19U/L (14-59) Alkaline Phosphatase 154U/L (46-116) Total Protein 8.9g/dL (6.4-8.2) Albumin 2.9g/dL (3.4-5.0) Albumin/Globulin Ratio 0.5 (1.0-1.7) Lipase 114U/L (73-393) Procalcitonin 0.13ng/mL (0.00-0.10) Urine Color Yellow Urine Clarity Cloudy Urine pH 7.5 Urine Specific [place] 1.010 Urine Protein 100mg/dL (NEG-TRACE) Urine Glucose (UA) Negativemg/dL (NEG) Urine Ketones (Stick) Negativemg/dL (NEG) Urine Blood Large (NEG) Urine Nitrite Negative (NEG) Urine Bilirubin Negative (NEG) Urine Urobilinogen Dipstick 0.2mg/dL (0.2 mg/dL) Urine Leukocyte Esterase Large (NEG) Urine RBC Tntc/HPF (0-2) Urine WBC 5-10/HPF (0-4) Urine Squamous Epithelial Cells Occ/LPF Urine Bacteria 0/HPF (0-FEW) Urine Mucus Slight/LPF Laboratory Tests Test 11/26/16 15:25 11/26/16 15:55 11/26/16 17:15 11/26/16 18:00 Influenza Type A Antigen Negative (NEGATIVE) Influenza Type B Antigen Negative (NEGATIVE) White Blood Count 7.1x10^3/uL (4.0-11.0) Red Blood Count 3.59x10^6/uL (3.50-5.40) Hemoglobin 10.8g/dL (12.0-15.5) Hematocrit 33.2% (36.0-47.0) Mean Corpuscular Volume 93fL (79-100) Mean Corpuscular Hemoglobin 30pg (25-35) Mean Corpuscular Hemoglobin Concent 33g/dL (31-37) Red Cell Distribution Width 14.8% (11.5-14.5) Platelet Count 318x10^3/uL (140-400) Neutrophils (%) (Auto) 78% (31-73) Lymphocytes (%) (Auto) 11% (24-48) Monocytes (%) (Auto) 10% (0-9) Eosinophils (%) (Auto) 1% (0-3) Basophils (%) (Auto) 1% (0-3) Neutrophils # (Auto) 5.5x10^3uL (1.8-7.7) Lymphocytes # (Auto) 0.8x10^3/uL (1.0-4.8) Monocytes # (Auto) 0.7x10^3/uL (0.0-1.1) Eosinophils # (Auto) 0.1x10^3/uL (0.0-0.7) Basophils # (Auto) 0.1x10^3/uL (0.0-0.2) Sodium Level 136mmol/L (136-145) Potassium Level 5.0mmol/L (3.5-5.1) Chloride Level 99mmol/L (98-107) Carbon Dioxide Level 26mmol/L (21-32) Anion Gap 11 (6-14) Blood Urea Nitrogen 54mg/dL (7-20) Creatinine 3.3mg/dL (0.6-1.0) Estimated GFR (Cockcroft-Gault) 13.7 BUN/Creatinine Ratio 16 (6-20) Glucose Level 169mg/dL (70-99) Lactic Acid Level 1.5mmol/L (0.4-2.0) 1.1mmol/L (0.4-2.0) Calcium Level 9.3mg/dL (8.5-10.1) Total Bilirubin 0.4mg/dL (0.2-1.0) Aspartate Amino Transf (AST/SGOT) 18U/L (15-37) Alanine Aminotransferase (ALT/SGPT) 19U/L (14-59) Alkaline Phosphatase 154U/L (46-116) Total Protein 8.9g/dL (6.4-8.2) Albumin 2.9g/dL (3.4-5.0) Albumin/Globulin Ratio 0.5 (1.0-1.7) Lipase 114U/L (73-393) Procalcitonin 0.13ng/mL (0.00-0.10) Urine Color Yellow Urine Clarity Cloudy Urine pH 7.5 Urine Specific [place] 1.010 Urine Protein 100mg/dL (NEG-TRACE) Urine Glucose (UA) Negativemg/dL (NEG) Urine Ketones (Stick) Negativemg/dL (NEG) Urine Blood Large (NEG) Urine Nitrite Negative (NEG) Urine Bilirubin Negative (NEG) Urine Urobilinogen Dipstick 0.2mg/dL (0.2 mg/dL) Urine Leukocyte Esterase Large (NEG) Urine RBC Tntc/HPF (0-2) Urine WBC 5-10/HPF (0-4) Urine Squamous Epithelial Cells Occ/LPF Urine Bacteria 0/HPF (0-FEW) Urine Mucus Slight/LPF VTE Prophylaxis Ordered VTE Prophylaxis Devices: Yes VTE Pharmacological Prophylaxi: Yes MUNIR PADILLA MD Nov 26, 2016 20:49
[2016-11-26] MEDS ORDERED: DEXTROSE 50% 25 GM / 50ML DISP.SYRIN. IV PRN ×2 (21:00)
[2016-11-26] MEDS: INSULIN DETEMIR 300 UNITS/3 ML INSULN.PEN. SQ SCH (22:00)
[2016-11-26] MEDS: SIMVASTATIN 40 MG TABLET. PO SCH (22:01)
[2016-11-26] MEDS: SODIUM BICARBONATE 650 MG TABLET. PO SCH (22:02)
[2016-11-26] MEDS: HEPARIN PF for SUB-Q USE 5,000 UNIT/0.5 ML VIAL. SQ SCH (22:03)
[2016-11-26] MEDS: IV NORMAL SALINE 1000ML BAG 1,000 ML IV SCH (22:12)
[2016-11-26 23:00] VITALS: BP 125/61
--- NOTE | 2016-11-26 23:50 | HP ---
ADMIT DATE: 11/26/2016 CHIEF COMPLAINT: Fatigue, weakness. HISTORY OF PRESENT ILLNESS: A 76-year-old female patient with prior history of diabetes, recurrent urinary tract infection, CKD and diabetes, presented to the ER with complaints of fatigue, weakness, loss of appetite for nearly few days. The patient states these symptoms are typical of urinary tract infection. Every time she gets urinary tract infection, symptoms are similar to this. She has been feeling weak due to decreased oral intake. The patient went to primary care doctor's office who treated her with oral antibiotics; however, her symptoms did not improve, which made her to come to the ER. The patient complains of some fever, chills. She denies any hematuria or frequency of urination or pain with urination or suprapubic pain. PAST MEDICAL HISTORY: Significant for urinary stents and she had recurrent urinary tract infections recently in 08/2016. She was admitted to the hospital for similar complaints. REVIEW OF SYSTEMS: Please see my electronic H and P. LABORATORY DATA: WBC 7.1, hemoglobin 10.8, MCV 93, platelets 318. Chemistry: Sodium is 136, potassium is 4.0, chloride is 26, gap is 11, BUN54, creatinine is 3.3, glucose is 169, total protein 8.9. Urine blood large, nitrites negative, bilirubin negative, leukocyte esterase large, squamous cells occasional. Serology: Influenza A and B negative. IMAGING STUDIES: Chest x-ray: No acute findings seen. ASSESSMENT AND PLAN: 1. Suspected urinary tract infection. 2. Acute kidney injury with chronic kidney disease 3/4. 3. Type 2 diabetes mellitus with hyperglycemia. 4. Hypertension. 5. History of renal stents. PLAN: 1. I will start her on IV Rocephin and continue Rocephin daily. Consult Urology for further recommendations. 2. Sliding scale insulin with home dose of Levemir. 3. Home medications reviewed and reconciled. Please see my MRAD. 4. IV hydration at least 125 mL per hour. 5. Urine cultures have been ordered. 6. If the patient continued to have any fever, we will get blood cultures. 7. She already received IV Rocephin in the ER. 8. P.r.n. hydralazine for systolic blood pressure more than 170. The patient currently is taking Coreg and we will continue that. 8. Blood pressures are fairly controlled. 9. Encourage oral intake. 10. DVT prophylaxis with Lovenox. MUNIR PADILLA MD DR: SHAUN/anthony JOB#: [id number] / [id number] SHYANN
[2016-11-27 03:00] VITALS: BP 123/68
[2016-11-27] MEDS: IV NORMAL SALINE 1000ML BAG 1,000 ML IV SCH ×2 (06:18→16:00)
[2016-11-27] MEDS: HEPARIN PF for SUB-Q USE 5,000 UNIT/0.5 ML VIAL. SQ SCH ×3 (06:18→21:02)
[2016-11-27 06:30] LABS: BASO # 0.1 x10^3/uL (0.0-0.2); BASO % 1 % (0-3); EOS % 0 % (0-3); HEMATOCRIT 27.5 % (36.0-47.0); HEMOGLOBIN 9.1 g/dL (12.0-15.5); LYMPH # 1.7 x10^3/uL (1.0-4.8); LYMPH % 28 % (24-48); MEAN CORPUSCULAR HEMOGLOBIN 30 pg (25-35); MEAN CORPUSCULAR HGB CONC 33 g/dL (31-37); MEAN CORPUSCULAR VOLUME 91 fL (79-100); MONO % 11 % (0-9); NEUT % 59 % (31-73); PLATELET COUNT 247 x10^3/uL (140-400); RED BLOOD COUNT 3.01 x10^6/uL (3.50-5.40); RED CELL DISTRIBUTION WIDTH 14.7 % (11.5-14.5)
[2016-11-27 06:40] LABS: CALCIUM 8.1 mg/dL (8.5-10.1); CREATININE 2.8 mg/dL (0.6-1.0); GFR 16.5; POTASSIUM 4.9 mmol/L (3.5-5.1)
[2016-11-27 07:00] VITALS: BP 136/70
[2016-11-27] MEDS: INSULIN ASPART 300 UNITS/3 ML INSULN.PEN SQ SCH ×6 (08:00→17:39)
[2016-11-27] MEDS ORDERED: INSULIN ASPART 300 UNITS/3 ML INSULN.PEN SQ SCH ×2 (08:00→17:00)
[2016-11-27] MEDS: SODIUM BICARBONATE 650 MG TABLET. PO SCH ×2 (08:29→21:00)
[2016-11-27] MEDS: CARVEDILOL 3.125 MG TABLET. PO SCH (08:29)
[2016-11-27] MEDS: ASPIRIN ENTERIC COATED 81 MG TABLET.DR. PO SCH (08:29)
[2016-11-27] MEDS: FERROUS SULFATE 325 MG TABLET. PO SCH (08:29)
[2016-11-27] MEDS: ASCORBIC ACID 500 MG TABLET PO SCH (08:30)
[2016-11-27 11:00] VITALS: BP 112/55
--- NOTE | 2016-11-27 12:13 | ACF ---
Admission Forms Criteria URINARY COMPLICATIONS Clinical Indications for Inpatient Care (Place 'X' for any and all applicable criteria): Ongoing inpatient care may be indicated for urinary complications with ANY ONE of the following: [X]I. Urinary tract infection requiring inpatient care as indicated by ANY ONE of the following(8)(19)(20): [ ]a) Severe symptoms (eg, high fever, severe pain) [ ]b) Vomiting or dehydration requiring ongoing inpatient care [X]c) IV antibiotic needs that cannot be managed at lower level of care [ ]d) Hemodynamic instability [ ]e) Obstruction of collecting system by stone or tumor [ ]II. Urinary retention requiring drainage or surgery (3)(4)(5)(17)(18) [ ]III. Renal failure (Use Renal Failure Criteria for further information.) [ ]IV. Oliguria(30) [ ]V. Post obstructive diuresis requiring close monitoring of urine output and intravenous compensation for excessive fluid losses(33) Extended stay beyond goal length of stay for primary condition may be needed until ALL of the following are present(3)(4)(5)(8): [ ]a) Renal function (creatinine) at baseline, or daily decreases in creatinine consistent with renal function return [ ]b) Voiding adequately or with urinary catheter or percutaneous suprapubic tube and management regimen in place that is performable at lower level of care. [ ]c) Urine output adequate [ ]d) Fever absent or resolving [ ]e) Infection absent or treatable at next level of care The original [employer] content created by [employer] has been revised. The portions of the content which have been revised are identified through the use of italic text or in bold, and [facility] has neither reviewed nor approved the modified material. All other unmodified content is copyright [facility] Please see references footnoted in the original [facility] edition 2016 Admission Criteria Met?: Yes MEAGHAN HEATH Nov 27, 2016 12:13
--- NOTE | 2016-11-27 14:06 | PDOC ---
PROGRESS NOTES Chief Complaint Chief Complaint Weakness, fatigue Hematuria ASSESSMENT AND PLAN: 1. Dehydration: clinically much improved w/ IVF. 2. TWYLA on CKD3: improving 3. hematuria: has bilat stents in place chronically, echanged by Dr Ritchie q3 months, just recently done. 4. ?UTI: unlikely with minimal WBC and TNTC RBC. culture pending 5. Anemia: normocytic, normochromic. unlikely to be 2/2 microscopic hematuria. obtain anemia profile; suspect 2/2 chronic inflammation and CKD. may need EPO 6. Hypoalbuminemia: moderate. suspect 2/2 malnutrition and chronic inflammation 7. DM2: add ISS to home regimen 8. HTN: hx renal stents; cont home meds. 9. CAD: no acute issues. 10. DVT prophylaxis with heparin Vitals Vitals Vital Signs Date Time Temp Pulse Resp B/P Pulse Ox O2 Delivery O2 Flow Rate FiO2 11/27/16 11:00 99.1 84 20 112/55 90 Room Air 99.1 Physical Exam General: Alert, Oriented X3, Cooperative Heart: Regular rate Lungs: Clear Abdomen: Normal bowel sounds, Soft, No tenderness Extremities: No edema Skin: No rashes Labs LABS Laboratory Tests Test 11/26/16 15:25 11/26/16 15:55 11/26/16 17:15 11/26/16 18:00 Influenza Type A Antigen Negative (NEGATIVE) Influenza Type B Antigen Negative (NEGATIVE) White Blood Count 7.1x10^3/uL (4.0-11.0) Red Blood Count 3.59x10^6/uL (3.50-5.40) Hemoglobin 10.8g/dL (12.0-15.5) Hematocrit 33.2% (36.0-47.0) Mean Corpuscular Volume 93fL (79-100) Mean Corpuscular Hemoglobin 30pg (25-35) Mean Corpuscular Hemoglobin Concent 33g/dL (31-37) Red Cell Distribution Width 14.8% (11.5-14.5) Platelet Count 318x10^3/uL (140-400) Neutrophils (%) (Auto) 78% (31-73) Lymphocytes (%) (Auto) 11% (24-48) Monocytes (%) (Auto) 10% (0-9) Eosinophils (%) (Auto) 1% (0-3) Basophils (%) (Auto) 1% (0-3) Neutrophils # (Auto) 5.5x10^3uL (1.8-7.7) Lymphocytes # (Auto) 0.8x10^3/uL (1.0-4.8) Monocytes # (Auto) 0.7x10^3/uL (0.0-1.1) Eosinophils # (Auto) 0.1x10^3/uL (0.0-0.7) Basophils # (Auto) 0.1x10^3/uL (0.0-0.2) Sodium Level 136mmol/L (136-145) Potassium Level 5.0mmol/L (3.5-5.1) Chloride Level 99mmol/L (98-107) Carbon Dioxide Level 26mmol/L (21-32) Anion Gap 11 (6-14) Blood Urea Nitrogen 54mg/dL (7-20) Creatinine 3.3mg/dL (0.6-1.0) Estimated GFR (Cockcroft-Gault) 13.7 BUN/Creatinine Ratio 16 (6-20) Glucose Level 169mg/dL (70-99) Lactic Acid Level 1.5mmol/L (0.4-2.0) 1.1mmol/L (0.4-2.0) Calcium Level 9.3mg/dL (8.5-10.1) Total Bilirubin 0.4mg/dL (0.2-1.0) Aspartate Amino Transf (AST/SGOT) 18U/L (15-37) Alanine Aminotransferase (ALT/SGPT) 19U/L (14-59) Alkaline Phosphatase 154U/L (46-116) Total Protein 8.9g/dL (6.4-8.2) Albumin 2.9g/dL (3.4-5.0) Albumin/Globulin Ratio 0.5 (1.0-1.7) Lipase 114U/L (73-393) Procalcitonin 0.13ng/mL (0.00-0.10) Urine Color Yellow Urine Clarity Cloudy Urine pH 7.5 Urine Specific [place] 1.010 Urine Protein 100mg/dL (NEG-TRACE) Urine Glucose (UA) Negativemg/dL (NEG) Urine Ketones (Stick) Negativemg/dL (NEG) Urine Blood Large (NEG) Urine Nitrite Negative (NEG) Urine Bilirubin Negative (NEG) Urine Urobilinogen Dipstick 0.2mg/dL (0.2 mg/dL) Urine Leukocyte Esterase Large (NEG) Urine RBC Tntc/HPF (0-2) Urine WBC 5-10/HPF (0-4) Urine Squamous Epithelial Cells Occ/LPF Urine Bacteria 0/HPF (0-FEW) Urine Mucus Slight/LPF Test 11/26/16 21:05 11/27/16 06:20 11/27/16 08:27 11/27/16 11:28 Glucose (Fingerstick) 141mg/dL (70-99) 142mg/dL (70-99) 126mg/dL (70-99) White Blood Count 6.0x10^3/uL (4.0-11.0) Red Blood Count 3.01x10^6/uL (3.50-5.40) Hemoglobin 9.1g/dL (12.0-15.5) Hematocrit 27.5% (36.0-47.0) Mean Corpuscular Volume 91fL (79-100) Mean Corpuscular Hemoglobin 30pg (25-35) Mean Corpuscular Hemoglobin Concent 33g/dL (31-37) Red Cell Distribution Width 14.7% (11.5-14.5) Platelet Count 247x10^3/uL (140-400) Neutrophils (%) (Auto) 59% (31-73) Lymphocytes (%) (Auto) 28% (24-48) Monocytes (%) (Auto) 11% (0-9) Eosinophils (%) (Auto) 0% (0-3) Basophils (%) (Auto) 1% (0-3) Neutrophils # (Auto) 3.6x10^3uL (1.8-7.7) Lymphocytes # (Auto) 1.7x10^3/uL (1.0-4.8) Monocytes # (Auto) 0.7x10^3/uL (0.0-1.1) Eosinophils # (Auto) 0.0x10^3/uL (0.0-0.7) Basophils # (Auto) 0.1x10^3/uL (0.0-0.2) Sodium Level 140mmol/L (136-145) Potassium Level 4.9mmol/L (3.5-5.1) Chloride Level 107mmol/L (98-107) Carbon Dioxide Level 22mmol/L (21-32) Anion Gap 11 (6-14) Blood Urea Nitrogen 42mg/dL (7-20) Creatinine 2.8mg/dL (0.6-1.0) Estimated GFR (Cockcroft-Gault) 16.5 Glucose Level 130mg/dL (70-99) Calcium Level 8.1mg/dL (8.5-10.1) Review of Systems Review of Systems feels much better. no abd pain, no dysuria. no N/V/diarrhea ATTILA GATES MD Nov 27, 2016 14:06
[2016-11-27] MEDS ORDERED: DEXTROSE 50% 25 GM / 50ML DISP.SYRIN. IV PRN (14:15)
[2016-11-27 15:04] VITALS: BP 119/52
[2016-11-27] MEDS ORDERED: CEFTRIAXONE SODIUM 1 GM in IV NORMAL SALINE 50ML 50 ML IV SCH ×2 (18:00)
[2016-11-27 19:30] VITALS: BP 126/58
[2016-11-27] MEDS: INSULIN DETEMIR 300 UNITS/3 ML INSULN.PEN. SQ SCH (21:00)
[2016-11-27] MEDS: SIMVASTATIN 40 MG TABLET. PO SCH (21:00)
[2016-11-27] MEDS ORDERED: ACETAMINOPHEN 325 MG TABLET. PO PRN (23:30)
[2016-11-27 23:41] VITALS: BP 133/67
[2016-11-28] MEDS: IV NORMAL SALINE 1000ML BAG 1,000 ML IV SCH ×2 (02:54→12:13)
[2016-11-28 03:05] VITALS: BP 121/64
[2016-11-28 05:12] LABS: HEMATOCRIT 27.1 % (36.0-47.0); HEMOGLOBIN 8.9 g/dL (12.0-15.5); RED BLOOD COUNT 2.92 x10^6/uL (3.50-5.40); RED CELL DISTRIBUTION WIDTH 14.7 % (11.5-14.5); WHITE BLOOD COUNT 5.9 x10^3/uL (4.0-11.0)
[2016-11-28 05:33] LABS: % SAT IRON 15 % (15-34); IRON,SERUM 22 ug/dL (50-170)
[2016-11-28 05:44] LABS: CALCIUM 8.3 mg/dL (8.5-10.1); CREATININE 2.6 mg/dL (0.6-1.0); POTASSIUM 4.9 mmol/L (3.5-5.1)
[2016-11-28] MEDS: HEPARIN PF for SUB-Q USE 5,000 UNIT/0.5 ML VIAL. SQ SCH ×2 (06:34→13:40)
[2016-11-28 07:00] VITALS: BP 150/76
[2016-11-28] MEDS: SODIUM BICARBONATE 650 MG TABLET. PO SCH (07:43)
[2016-11-28] MEDS: FERROUS SULFATE 325 MG TABLET. PO SCH (07:44)
[2016-11-28] MEDS: ASPIRIN ENTERIC COATED 81 MG TABLET.DR. PO SCH (07:44)
[2016-11-28] MEDS: CARVEDILOL 3.125 MG TABLET. PO SCH (07:44)
[2016-11-28] MEDS: ASCORBIC ACID 500 MG TABLET PO SCH (07:44)
[2016-11-28] MEDS: INSULIN ASPART 300 UNITS/3 ML INSULN.PEN SQ SCH ×4 (07:45→12:22)
[2016-11-28 11:00] VITALS: BP 125/63
--- NOTE | 2016-11-28 14:12 | PDOC ---
PROGRESS NOTES Chief Complaint Chief Complaint Weakness, fatigue Hematuria ASSESSMENT AND PLAN: 1. Dehydration: resolved. 2. TWYLA on CKD3: resolved, at baseline creat 3. hematuria: has bilat stents in place chronically, echanged by Dr Ritchie q3 months, just recently done. 4. ?UTI: unlikely with minimal WBC and TNTC RBC. culture neg 5. Anemia: normocytic, normochromic. unlikely to be 2/2 microscopic hematuria. obtain anemia profile; suspect 2/2 chronic inflammation and CKD. may need EPO 6. Hypoalbuminemia: moderate. suspect 2/2 malnutrition and chronic inflammation 7. DM2: add ISS to home regimen 8. HTN: hx renal stents; cont home meds. 9. CAD: no acute issues. 10. DVT prophylaxis with heparin 11. Dispo: home Vitals Vitals Vital Signs Date Time Temp Pulse Resp B/P Pulse Ox O2 Delivery O2 Flow Rate FiO2 11/28/16 11:00 97.9 76 16 125/63 99 Room Air 97.9 Physical Exam General: Alert, Oriented X3, Cooperative Heart: Regular rate Lungs: Clear Abdomen: Normal bowel sounds, Soft, No tenderness Extremities: No edema Skin: No rashes Labs LABS Laboratory Tests Test 11/27/16 17:04 11/27/16 20:59 11/28/16 04:45 11/28/16 07:41 Glucose (Fingerstick) 245mg/dL (70-99) 115mg/dL (70-99) 130mg/dL (70-99) White Blood Count 5.9x10^3/uL (4.0-11.0) Red Blood Count 2.92x10^6/uL (3.50-5.40) Hemoglobin 8.9g/dL (12.0-15.5) Hematocrit 27.1% (36.0-47.0) Mean Corpuscular Volume 93fL (79-100) Mean Corpuscular Hemoglobin 30pg (25-35) Mean Corpuscular Hemoglobin Concent 33g/dL (31-37) Red Cell Distribution Width 14.7% (11.5-14.5) Platelet Count 226x10^3/uL (140-400) Reticulocyte Count (auto) 2.0% (0.5-2.5) Sodium Level 141mmol/L (136-145) Potassium Level 4.9mmol/L (3.5-5.1) Chloride Level 110mmol/L (98-107) Carbon Dioxide Level 22mmol/L (21-32) Anion Gap 9 (6-14) Blood Urea Nitrogen 36mg/dL (7-20) Creatinine 2.6mg/dL (0.6-1.0) Estimated GFR (Cockcroft-Gault) 18.0 Glucose Level 136mg/dL (70-99) Calcium Level 8.3mg/dL (8.5-10.1) Iron Level 22ug/dL (50-170) Total Iron Binding Capacity 145ug/dL (250-450) Iron Saturation 15% (15-34) Ferritin 521ng/mL (8-252) Review of Systems Review of Systems no c/o. ready to go home ATTILA GATES MD Nov 28, 2016 14:12
[2016-11-28 14:35] VITALS: BP 134/55
--- NOTE | 2016-11-28 22:39 | DS ---
DATE OF DISCHARGE: 11/28/2016 CHIEF COMPLAINT: Weakness, fatigue, and hematuria. HOSPITAL COURSE: The patient is a 76-year-old woman with persistent ureteral stents, being replaced every [address] Ritchie who presented with weakness and fatigue. No focal symptoms. She was found with some dehydration as well as hematuria. Mild TWYLA was present as well. Her symptoms and lab values responded well to IV fluids. A urinalysis and culture were obtained ruling out UTI. Hematuria apparently is chronic in her. Without any other significant issues, she was discharged to home on 11/28/2016. PHYSICAL EXAMINATION: Please refer to note from same day. DISCHARGE DIAGNOSES: 1. Weakness. 2. Dehydration 3. Hematuria. DISCHARGE DISPOSITION: To home. DISCHARGE CONDITION: Improved. DISCHARGE MEDICATIONS: Please resume home medications. DISCHARGE INSTRUCTIONS: The patient will follow up with PCP and Dr. Ritchie as previously arranged. ATTILA GATES MD DR: MELANI/nts JOB#: [id number] / [id number] LISA Aggarwal MD
[2016-11-29 08:48] LABS: FOLATE 15.93 ng/ml (3.2-20.0)
== END 2016-11-28 15:50 | disposition home or self-care (01) | DRG 683 ==
LOC: ER 14:37 → 5 NORTH 18:18
PROVIDERS: ADMIT Internal Medicine; ATTEND Internal Medicine
DX: N17.9 Acute kidney failure, unspecified (principal); E44.0 Moderate protein-calorie malnutrition; R31.9 Hematuria, unspecified; N18.4 Chronic kidney disease, stage 4 (severe); D64.9 Anemia, unspecified; E11.22 Type 2 diabetes mellitus with diabetic chronic kidney disease; E11.65 Type 2 diabetes mellitus with hyperglycemia; E78.00 Pure hypercholesterolemia, unspecified; E86.0 Dehydration; E87.5 Hyperkalemia; R53.1 Weakness; I12.9 Hypertensive chronic kidney disease with stage 1 through stage 4 chronic kidney disease, or unspecified chronic kidney disease; I25.10 Atherosclerotic heart disease of native coronary artery without angina pectoris; Z83.3 Family history of diabetes mellitus; Z87.440 Personal history of urinary (tract) infections; Z95.1 Presence of aortocoronary bypass graft; Z91.040 Latex allergy status
CPT/HCPCS: 36415; 71010; 80048; 80053; 81001; 82607; 82728; 82746; 82947; 83540; 83550; 83605; 83690; 84145; 85027; 85045; 87040; 87086; 87804; 93005; J0690; J0696; J1815; J7030; 99285-25

== ENCOUNTER 2016-12-16 07:17 | Emergency (ER) | payer MEDICAID, MEDICARE ==
[~2016-12-16] VITALS: Ht 162.6 cm; Wt 65.8 kg
--- NOTE | 2016-12-16 07:57 | PHYS DOC ---
Past Medical History Past Medical History: CAD, Diabetes-Type II, High Cholesterol, Hypertension, Renal Disease, UTI, Other Additional Past Medical Histor: hyperkalemia, bladder retention, urinary stents Past Surgical History: Coronary Bypass Surgery, Other Additional Past Surgical Histo: benign tumor removed from colon, bladder stent removed and reinserted Alcohol Use: None Drug Use: None Adult General Chief Complaint Chief Complaint: WEAKNESS/GENERALIZED HPI HPI Patient is a 76 year old female presents to the emergency department with a history of weakness for the last 3-4 days. Patient denies any shortness of air difficulty breathing. Patient states that normally when she has weakness she usually has a urinary tract infection with this. Patient states that she does not completely empty her bladder. She also states that she has urinary stents to help with the flow. Patient denies any abdominal pain she denies any fever, chills or diarrhea. Patient states that she does have a history of diabetes for her glucoses have been ranging anywhere from 88-188. Patient states that she also has a history of urinary retention, urinary tract infections, urinary stents. Review of Systems Review of Systems Constitutional: Denies fever or chills. C/o generalized weakness Eyes: Denies change in visual acuity, redness, or eye pain [] HENT: Denies nasal congestion or sore throat [] Respiratory: Denies cough or shortness of breath [] Cardiovascular: No additional information not addressed in HPI [] GI: Denies abdominal pain, nausea, vomiting, bloody stools or diarrhea [] : Denies dysuria or hematuria [] Musculoskeletal: Denies back pain or joint pain [] Integument: Denies rash or skin lesions [] Neurologic: Denies headache, focal weakness or sensory changes [] Allergies Allergies Allergies Coded Allergies Type Severity Reaction Last Updated Verified latex Allergy Intermediate Rash 08/06/16 Yes Physical Exam Physical Exam Constitutional: Well developed, well nourished, no acute distress, non-toxic appearance. [] HENT: Normocephalic, atraumatic, bilateral external ears normal, oropharynx moist, no oral exudates, nose normal. [] Eyes: PERRLA, EOMI, conjunctiva normal, no discharge. [] Neck: Normal range of motion, no tenderness, supple, no stridor. [] Cardiovascular:Heart rate regular rhythm, no murmur [] Lungs & Thorax: Bilateral breath sounds clear to auscultation [] Abdomen: Bowel sounds normal, soft, no tenderness, no masses, no pulsatile masses. [] Skin: Warm, dry, no erythema, no rash. [] Back: No tenderness Extremities: No tenderness, no cyanosis, no clubbing, ROM intact, no edema. [] Neurologic: Alert and oriented X 3, normal motor function, normal sensory function, no focal deficits noted. [] Psychologic: Affect normal, judgement normal, mood normal. [] Current Patient Data Vital Signs Vital Signs Date Time Temp Pulse Resp B/P Pulse Ox O2 Delivery O2 Flow Rate FiO2 12/16/16 07:30 98.4 100 18 152/70 98 Room Air 98.4 Lab Values Laboratory Tests Test 12/16/16 07:50 12/16/16 08:34 Urine Collection Type U cath Urine Color Yellow Urine Clarity Turbid Urine pH 6.5 Urine Specific [place] 1.010 Urine Protein 100mg/dL (NEG-TRACE) Urine Glucose (UA) Negativemg/dL (NEG) Urine Ketones (Stick) Negativemg/dL (NEG) Urine Blood Large (NEG) Urine Nitrite Negative (NEG) Urine Bilirubin Negative (NEG) Urine Urobilinogen Dipstick 0.2mg/dL (0.2 mg/dL) Urine Leukocyte Esterase Large (NEG) Urine RBC Tntc/HPF (0-2) Urine WBC Tntc/HPF (0-4) Urine Squamous Epithelial Cells Mod/LPF Urine Bacteria Many/HPF (0-FEW) White Blood Count 6.3x10^3/uL (4.0-11.0) Red Blood Count 3.53x10^6/uL (3.50-5.40) Hemoglobin 10.6g/dL (12.0-15.5) L Hematocrit 34.0% (36.0-47.0) L Mean Corpuscular Volume 96fL (79-100) Mean Corpuscular Hemoglobin 30pg (25-35) Mean Corpuscular Hemoglobin Concent 31g/dL (31-37) Red Cell Distribution Width 15.8% (11.5-14.5) H Platelet Count 235x10^3/uL (140-400) Neutrophils (%) (Auto) 60% (31-73) Lymphocytes (%) (Auto) 26% (24-48) Monocytes (%) (Auto) 10% (0-9) H Eosinophils (%) (Auto) 3% (0-3) Basophils (%) (Auto) 1% (0-3) Neutrophils # (Auto) 3.8x10^3uL (1.8-7.7) Lymphocytes # (Auto) 1.6x10^3/uL (1.0-4.8) Monocytes # (Auto) 0.6x10^3/uL (0.0-1.1) Eosinophils # (Auto) 0.2x10^3/uL (0.0-0.7) Basophils # (Auto) 0.1x10^3/uL (0.0-0.2) Sodium Level 137mmol/L (136-145) Potassium Level 4.9mmol/L (3.5-5.1) Chloride Level 104mmol/L (98-107) Carbon Dioxide Level 20mmol/L (21-32) L Anion Gap 13 (6-14) Blood Urea Nitrogen 65mg/dL (7-20) H Creatinine 3.5mg/dL (0.6-1.0) H Estimated GFR (Cockcroft-Gault) 12.8 BUN/Creatinine Ratio 19 (6-20) Glucose Level 184mg/dL (70-99) H Calcium Level 9.2mg/dL (8.5-10.1) Total Bilirubin 0.3mg/dL (0.2-1.0) Aspartate Amino Transferase (AST) 28U/L (15-37) Alanine Aminotransferase (ALT) 32U/L (14-59) Alkaline Phosphatase 213U/L (46-116) H Troponin I Quantitative < 0.017ng/mL (0.000-0.055) Total Protein 8.6g/dL (6.4-8.2) H Albumin 2.8g/dL (3.4-5.0) L Albumin/Globulin Ratio 0.5 (1.0-1.7) L Laboratory Tests 12/16/16 08:34 Laboratory Tests 12/16/16 08:34 EKG EKG EKG completed with HR 88 SR with no ectopy, no stemi per Dr Jeter.[] Radiology/Procedures Radiology/Procedures [] Course & Med Decision Making Course & Med Decision Making Pertinent Labs and Imaging studies reviewed. (See chart for details) Spoke with Dr. Ritchie's nurse practitioner in regards to the patient's creatinine being 3.5. Also provided her with the urine results. Patient will be placed on Macrobid. Dr. Ritchie's office will follow up with urinalysis at a later time as well as repeat creatinine level. Patient will be discharged on Macrobid as mentioned above signs and symptoms to return back to emergency department as been provided. Patient agrees with discharge instructions treatment regimens and follow-up recommendations. Patient does have an appointment at 2:[address] Ritchie for stent change. [] Dragon Disclaimer Dragon Disclaimer This electronic medical record was generated, in whole or in part, using a voice recognition dictation system. Departure Departure Impression: Primary Impression: UTI (urinary tract infection) Disposition: 01 HOME, SELF-CARE Condition: STABLE Referrals: LISA CALHOUN (PCP) Patient Instructions: Urinary Tract Infection, [id number] Additional Instructions: Activity as tolerated. Medication as prescribed. Continue your home medications. Keep your appointment that you have with Dr. Ritchie today at 2:00. It is advisable that you have a repeat urinalysis in approximately 7-10 days as well as a repeat creatinine. Your creatinine was elevated at 3.5 today. Return back to the emergency department for signs and symptoms of become worse. Scripts Nitrofurantoin Monohyd/M-Cryst (Macrobid 100 Mg Capsule)100 Mg Capsule1 Cap PO BID #14 CAP Prov:RICHARD FRIAS APRN 12/16/16 RICHARD FRIAS APRN Dec 16, 2016 07:57
[2016-12-16 08:02] LABS: BILIRUBIN,URINE NEGATIVE (NEG); GLUCOSE,URINE NEGATIVE (NEG); NITRITE,URINE NEGATIVE (NEG); PH,URINE 6.5; PROTEIN,URINE 100 mg/dL (NEG-TRACE); UROBILINOGEN,URINE 0.2 mg/dL (0.2 mg/dL)
[2016-12-16 08:07] LABS: BACTERIA,URINE MANY /HPF (0-FEW); RBC,URINE TNTC /HPF (0-2); WBC,URINE TNTC /HPF (0-4)
[2016-12-16 08:09] LABS: SQUAMOUS EPITHELIAL CELL,UR MOD /LPF
--- NOTE | 2016-12-16 08:38 | EKG ---
[facility] [address] [place] [address] Test Date: 2016-12-16 Test Time: 08:13:33 Pat Name: BRYANT LOCKHART Department: Room: Gender: F Fence Setter: : 1940 Requested By: RICHARD FRIAS Order Number: [id number] Reading MD: Lesli Rocha Measurements Intervals [place] Rate: 88 P: 30 [place]: 160 QRS: -16 QRSD: 90 T: 96 QT: 370 QTc: 451 Interpretive Statements SINUS RHYTHM LEFTWARD AXIS ST & T ABNORMALITY, CONSIDER HIGH LATERAL ISCHEMIA Electronically Signed On 12-19-2016 15:48:43 CDT by Lesli Rocha
[2016-12-16 08:45] LABS: BASO # 0.1 x10^3/uL (0.0-0.2); BASO % 1 % (0-3); EOS % 3 % (0-3); HEMOGLOBIN 10.6 g/dL (12.0-15.5); LYMPH # 1.6 x10^3/uL (1.0-4.8); LYMPH % 26 % (24-48); MEAN CORPUSCULAR HEMOGLOBIN 30 pg (25-35); MEAN CORPUSCULAR HGB CONC 31 g/dL (31-37); MEAN CORPUSCULAR VOLUME 96 fL (79-100); MONO % 10 % (0-9); NEUT % 60 % (31-73); PLATELET COUNT 235 x10^3/uL (140-400); RED BLOOD COUNT 3.53 x10^6/uL (3.50-5.40); RED CELL DISTRIBUTION WIDTH 15.8 % (11.5-14.5); WHITE BLOOD COUNT 6.3 x10^3/uL (4.0-11.0)
[2016-12-16 09:00] LABS: CALCIUM 9.2 mg/dL (8.5-10.1); CREATININE 3.5 mg/dL (0.6-1.0); GFR 12.8; POTASSIUM 4.9 mmol/L (3.5-5.1)
[2016-12-16 09:06] LABS: ALBUMIN 2.8 g/dL (3.4-5.0); ALBUMIN/GLOBULIN RATIO 0.5 (1.0-1.7); TOTAL BILIRUBIN 0.3 mg/dL (0.2-1.0); TOTAL PROTEIN 8.6 g/dL (6.4-8.2)
[2016-12-16] MEDS ORDERED: NITR100C62 PO (09:22)
[2016-12-16 09:26] VITALS: BP 142/64
--- NOTE | 2016-12-16 17:35 | HP ---
ADMIT DATE: 12/16/2016 CHIEF COMPLAINT: Hydronephrosis. HISTORY OF PRESENT ILLNESS: The patient is a very pleasant 76-year-old female with history of bilateral hydronephrosis. The patient has bilateral ureteral stents in place, she gets them changed every 4-5 months. The patient has just recently been placed on a course of Macrobid for UTI. The patient now in for cystoscopy, bilateral retrograde pyelograms and bilateral ureteral stent change. PAST MEDICAL HISTORY: Significant for urinary retention, coronary artery disease, diabetes, hypertension, colon cancer, chronic renal failure, hypotonic neurogenic bladder. The patient is G6, P6. She has bilateral ureteral stents in place. She has had prior coronary artery bypass grafting, cataract surgery, partial colectomy and ureteral stenting. MEDICATIONS: Aspirin which she was told to stop 5 days prior to procedure, iron, sodium bicarbonate, , simvastatin, insulin. ALLERGIES: THE PATIENT WITH ALLERGY TO LATEX. REVIEW OF SYSTEMS: The patient with some overall generalized weakness. PHYSICAL EXAMINATION: GENERAL: The patient is well-developed, well-nourished female in no acute distress. HEENT: Normocephalic and atraumatic. NECK: Supple. CHEST: Clear to auscultation. CARDIOVASCULAR: Regular rate and rhythm. ABDOMEN: Soft and nontender. No CVA tenderness. EXTREMITIES: Without clubbing, cyanosis or edema. NEUROLOGIC: Grossly intact. ASSESSMENT: Bilateral ureteral stents. Stents were last changed in 07/2016. PLAN: I discussed with the patient the options, alternatives, benefits, risks and possible complications of cystoscopy, bilateral retrograde pyelograms, and bilateral ureteral stent change. The patient understands this and does wish to proceed ahead with operation. We will therefore proceed accordingly. LUIS KWAN MD DR: EULALIA/anthony JOB#: [id number] / [id number]
== END 2016-12-16 09:45 | disposition home or self-care (01) ==
LOC: ER 07:17
DX: N39.0 Urinary tract infection, site not specified (principal); I25.10 Atherosclerotic heart disease of native coronary artery without angina pectoris; I10 Essential (primary) hypertension; E78.00 Pure hypercholesterolemia, unspecified; E11.9 Type 2 diabetes mellitus without complications; I12.9 Hypertensive chronic kidney disease with stage 1 through stage 4 chronic kidney disease, or unspecified chronic kidney disease; N18.9 Chronic kidney disease, unspecified; Z95.1 Presence of aortocoronary bypass graft; Z91.040 Latex allergy status
CPT/HCPCS: 36415; 80053; 81001; 84484; 85027; 87086; 93005; 99285-25

== ENCOUNTER 2016-12-22 05:56 | Day surgery (SDC) | payer MEDICARE ==
[~2016-12-22] VITALS: Ht 139.7 cm; Wt 68.0 kg
[~2016-12-22 05:56] MED LIST changes: +NITR100C62 PO
[2016-12-22] MEDS ORDERED: CEFAZOLIN 1GM IVPB FOR OMNI 50 ML IV PRN (06:00)
[2016-12-22] MEDS ORDERED: PROPOFOL 20 ML IV ONE (06:32)
[2016-12-22] MEDS ORDERED: LIDOCAINE 2% 100 MG/5 ML SYRINGE. ONE (06:36)
[2016-12-22] MEDS ORDERED: IV NORMAL SALINE 1000ML BAG 1,000 ML IV SCH (06:47)
[2016-12-22] MEDS ORDERED: SCOPOLAMINE 1.5MG PATCH. TD ONE ×2 (06:52→07:15)
[2016-12-22] MEDS ORDERED: ONDANSETRON PF 4 MG/2 ML VIAL. IV PRN (07:00)
[2016-12-22] MEDS ORDERED: LIDOCAINE 1% 1 ML SYRINGE. ID PRN (07:00)
[2016-12-22] MEDS ORDERED: MORPHINE SULFATE 2 MG/ML DISP.SYRIN. IV PRN (07:00)
[2016-12-22] MEDS ORDERED: HYDROmorphone 2 MG/ML VIAL IV PRN (07:00)
[2016-12-22] MEDS ORDERED: IV RINGERS,LACTATED 1000ML 1,000 ML IV SCH (07:00)
[2016-12-22] MEDS ORDERED: FENTANYL PF 100 MCG/2 ML VIAL. IV PRN ×4 (07:00)
[2016-12-22] MEDS ORDERED: PROCHLORPERAZINE 10 MG/2 ML VIAL. IV PRN (07:00)
[2016-12-22] MEDS ORDERED: FENTANYL PF 100 MCG/2 ML VIAL. ONE (07:13)
[2016-12-22] MEDS ORDERED: IOHEXOL 300 MG/ML 50 ML VIAL. ONE (07:15)
[2016-12-22] MEDS ORDERED: FAMOTIDINE 20 MG/2 ML VIAL ONE (07:34)
[2016-12-22] MEDS ORDERED: DEXAMETHASONE SOD PHOS 20 MG/5 ML VIAL. ONE (07:34)
[2016-12-22] MEDS ORDERED: ONDANSETRON PF 4 MG/2 ML VIAL. ONE (07:34)
[2016-12-22] MEDS ORDERED: EPHEDRINE PF IN SALINE 50 MG/5 ML DISP.SYRIN. IV ONE (07:44)
[2016-12-22] MEDS ORDERED: PHENYLEPHRINE in 0.9% NACL PF 1 MG/10 ML DISP.SYRIN. IV ONE ×2 (07:54→08:27)
[2016-12-22] MEDS: LIDOCAINE 2% JELLY 6ML IN APPLICATOR. ONE ×4 (08:12→08:35)
[2016-12-22] MEDS ORDERED: SEVOFLURANE 31 TO 60 MINUTES. IH ONE (08:34)
--- NOTE | 2016-12-22 08:43 | DISCH ---
DISCHARGE INSTRUCTIONS Condition on Discharge Condition on Discharge: Stable Activity After Discharge Activity Instructions for Disc: Resume previous activity Diet after Discharge Diet after Discharge: Renal Non-Dialysis Contacting the [facility] after DC Call your doctor for: If your condition worsens Follow-Up Follow up with: Follow up in office with Dr. Ritchie in 3 months LUIS RITCHIE MD Dec 22, 2016 08:43
--- NOTE | 2016-12-22 08:45 | PDOC4 ---
Operative Note Operative Note pre-op dx-bilateral hydronephrosis procedure-cystoscopy, bilateral retrograde pyelograms, bilateral ureteral stent change surgeon-wanda calix-general Pt. to PACU in stable condition LUIS KWAN MD Dec 22, 2016 08:45
[2016-12-22 09:45] VITALS: BP 145/69
--- NOTE | 2016-12-22 11:09 | OP ---
DATE OF SURGERY: 12/22/2016 OPERATION: Cystoscopy, bilateral retrograde pyelograms, bilateral ureteral stent change. SURGEON: Lius Ritchie M.D. ANESTHESIA: General. PREOPERATIVE DIAGNOSES: Bilateral hydronephrosis and renal failure. POSTOPERATIVE DIAGNOSES: Bilateral hydronephrosis and renal failure. INDICATIONS: The patient is a very pleasant 76-year-old female with history of bilateral hydronephrosis and chronic kidney disease, who has bilateral ureteral stents in place; they are changed on a regular basis. The patient's last ureteral stent change was in 07/2016. I have discussed with the patient the options, alternatives, benefits, risks and possible complications of cystoscopy, bilateral retrograde pyelograms, and bilateral ureteral stent change. She understands this and does wish to proceed with the operation. DESCRIPTION OF PROCEDURE: After obtaining informed consent, the patient was taken to the operating room after an excellent general anesthetic. The patient was placed in a dorsolithotomy position. Groin was prepped and draped in sterile fashion. The patient was preloaded with IV antibiotics. Panendoscopy and cystoscopy were then performed with a 30-degree lens in the 21-Prydeinig cystoscope sheath. Bladder was entered and inspected. Distal curls of ureteral stent could be seen protruding from the right and left sides of the bladder. The patient's bladder showed mild amount of stent reaction. No obvious bladder tumors or bladder stones were identified. Following this, floppy tipped angled ZIPwire was passed up the left ureter alongside the left ureteral stent up to the left kidney and the distal curl of the right ureteral stent was then grasped and the stent partially removed and then a floppy tipped straight ZIPwire was passed up the right ureteral stent up to the right kidney and the right ureteral stent removed. retrograde pyelogram was performed through a 5-Prydeinig open-ended Pollack catheter and then following this, the ZIPwire was then replaced and the Pollack catheter removed and then a new 6 x 24 double-J stent then passed up the ZIPwire, placing one curl in the right kidney and the other curl in the bladder and the ZIPwire removed. Stent position was checked by fluoroscopy and direct vision, found to be in good position. Following this, the left ZIPwire, which was already in place, was kept in place and the left ureteral stent removed under direct vision and fluoroscopy and then 5-Prydeinig Pollack catheter passed over the ZIPwire and a left retrograde pyelogram performed showing the left side hydronephrosis. ZIPwire was then replaced and the Pollack catheter removed and then a new 6 x 26 double-J stent was then passed up the left-sided ZIPwire, placing one curl in the left kidney and the another curl in the bladder and the ZIPwire removed. Stent position was checked by fluoroscopy and direct vision, found to be in good position. Following this, bladder was then drained and the cystoscope withdrawn from the patient. The patient tolerated the procedure very well, was taken to recovery room in stable condition. We will have the patient follow up in 3 months in the office and then her next stent change will be in approximately 4 months from now. The current stents had minimal amount of incrustation. LUIS RITCHIE MD DR: EULALIA/anthony JOB#: [id number] / [id number]
== END 2016-12-22 09:55 | disposition home or self-care (01) ==
LOC: SURG 05:56
PROVIDERS: ATTEND Urology
DX: I12.9 Hypertensive chronic kidney disease with stage 1 through stage 4 chronic kidney disease, or unspecified chronic kidney disease (principal); N18.9 Chronic kidney disease, unspecified; E11.9 Type 2 diabetes mellitus without complications; N13.30 Unspecified hydronephrosis; D64.9 Anemia, unspecified; E78.00 Pure hypercholesterolemia, unspecified; I25.10 Atherosclerotic heart disease of native coronary artery without angina pectoris; E66.9 Obesity, unspecified; Z87.440 Personal history of urinary (tract) infections; Z87.442 Personal history of urinary calculi
CPT/HCPCS: 52332; 74420; 82947; C1769; C2617; J0690; J1100; J2370; J2405; J2704; J3010; Q9967; S0028

== ENCOUNTER 2017-01-26 08:25 | Inpatient (IN) | payer MEDICARE ==
[~2017-01-26] VITALS: Ht 162.6 cm; Wt 66.2 kg
[~2017-01-26 08:25] MED LIST changes: +POLY17PO29 PO; -POLY17PO5 PO
--- NOTE | 2017-01-26 08:36 | PHYS DOC ---
Past Medical History Past Medical History: CAD, Diabetes-Type II, High Cholesterol, Hypertension, Renal Disease, UTI, Other Additional Past Medical Histor: hyperkalemia, bladder retention, urinary stents Past Surgical History: Coronary Bypass Surgery, Other Additional Past Surgical Histo: benign tumor removed from colon, bladder stent removed and reinserted Alcohol Use: None Drug Use: None Adult General Chief Complaint Chief Complaint: PAIN ON URINATION [facility] HPI Patient is a 76 year old female who presents with just was weakness. She states the symptoms started time she has a bladder infection. She states she's has a history of frequent bladder infections since she's had ureteral stents placed. She states her resource conservation specialist is Dr. Escalante and her urologist is Dr. Ritchie. She states she has urinary incontinence and then sometimes has to straight catheter which they do once a day to once every other day and only able to get a small amount out. She denies any fevers chills chest pain, shortness of breath, nausea, vomiting, abdominal pain or dysuria. She has a past medical history of coronary artery disease with past surgery, hypertension , dyslipidemia, diabetes. Review of Systems Review of Systems Constitutional: Denies fever or chills [] Eyes: Denies change in visual acuity, redness, or eye pain [] HENT: Denies nasal congestion or sore throat [] Respiratory: Denies cough or shortness of breath [] Cardiovascular: No additional information not addressed in HPI [] GI: Denies abdominal pain, nausea, vomiting, bloody stools or diarrhea [] : Denies dysuria or hematuria [] Musculoskeletal: Denies back pain or joint pain [] Integument: Denies rash or skin lesions [] Neurologic: Denies headache, focal weakness or sensory changes [] Endocrine: Denies polyuria or polydipsia [] Current Medications Current Medications Current Medications Medications (Trade) Dose Ordered Sig/Claudette Start Time Stop Time Status Last Admin Dose Admin Sodium Chloride 1,000 ml @ 1,000 mls/hr 1X ONCE 01/26/17 11:15 01/26/17 12:14 DC 01/26/17 11:18 1,000 MLS/HR Allergies Allergies Allergies Coded Allergies Type Severity Reaction Last Updated Verified latex Allergy Intermediate Rash 12/22/16 Yes Physical Exam Physical Exam Constitutional: Well developed, well nourished, no acute distress, non-toxic appearance. [] HENT: Normocephalic, atraumatic, bilateral external ears normal, oropharynx moist, no oral exudates, nose normal. [] Eyes: PERRLA, EOMI, conjunctiva normal, no discharge. [] Neck: Normal range of motion, no tenderness, supple, no stridor. [] Cardiovascular:Heart rate regular rhythm, no murmur [] Lungs & Thorax: Bilateral breath sounds clear to auscultation [] Abdomen: Bowel sounds normal, soft, no tenderness, no masses, no pulsatile masses. [] Skin: Warm, dry, no erythema, no rash. [] Back: No tenderness, no CVA tenderness. [] Extremities: No tenderness, no cyanosis, no clubbing, ROM intact, no edema. [] Neurologic: Alert and oriented X 3, normal motor function, normal sensory function, no focal deficits noted. [] Psychologic: Affect normal, judgement normal, mood normal. [] Current Patient Data Vital Signs Vital Signs Date Time Temp Pulse Resp B/P (MAP) Pulse Ox O2 Delivery O2 Flow Rate FiO2 01/26/17 11:31 76 18 131/64 (86) 97 Room Air 01/26/17 08:34 98.7 98.7 Lab Values Laboratory Tests Test 01/26/17 08:45 01/26/17 09:10 Urine Collection Type U cath Urine Color Yellow Urine Clarity Turbid Urine pH 7.0 Urine Specific [place] 1.010 Urine Protein 100 mg/dL (NEG-TRACE) Urine Glucose (UA) Negative mg/dL (NEG) Urine Ketones (Stick) Negative mg/dL (NEG) Urine Blood Large (NEG) Urine Nitrite Negative (NEG) Urine Bilirubin Negative (NEG) Urine Urobilinogen Dipstick 0.2 mg/dL (0.2 mg/dL) Urine Leukocyte Esterase Large (NEG) Urine RBC 20-40 /HPF (0-2) Urine WBC Tntc /HPF (0-4) Urine Squamous Epithelial Cells Few /LPF Urine Bacteria 0 /HPF (0-FEW) White Blood Count 7.4 x10^3/uL (4.0-11.0) Red Blood Count 3.63 x10^6/uL (3.50-5.40) Hemoglobin 10.8 g/dL (12.0-15.5) L Hematocrit 33.1 % (36.0-47.0) L Mean Corpuscular Volume 91 fL (79-100) Mean Corpuscular Hemoglobin 30 pg (25-35) Mean Corpuscular Hemoglobin Concent 33 g/dL (31-37) Red Cell Distribution Width 15.5 % (11.5-14.5) H Platelet Count 273 x10^3/uL (140-400) Neutrophils (%) (Auto) 60 % (31-73) Lymphocytes (%) (Auto) 27 % (24-48) Monocytes (%) (Auto) 9 % (0-9) Eosinophils (%) (Auto) 3 % (0-3) Basophils (%) (Auto) 1 % (0-3) Neutrophils # (Auto) 4.5 x10^3uL (1.8-7.7) Lymphocytes # (Auto) 2.0 x10^3/uL (1.0-4.8) Monocytes # (Auto) 0.7 x10^3/uL (0.0-1.1) Eosinophils # (Auto) 0.2 x10^3/uL (0.0-0.7) Basophils # (Auto) 0.1 x10^3/uL (0.0-0.2) Prothrombin Time 13.4 SEC (11.7-14.0) Prothrombin Time INR 1.1 (0.8-1.1) Sodium Level 143 mmol/L (136-145) Potassium Level 5.4 mmol/L (3.5-5.1) H Chloride Level 106 mmol/L (98-107) Carbon Dioxide Level 25 mmol/L (21-32) Anion Gap 12 (6-14) Blood Urea Nitrogen 52 mg/dL (7-20) H Creatinine 3.3 mg/dL (0.6-1.0) H Estimated GFR (Cockcroft-Gault) 13.7 Glucose Level 154 mg/dL (70-99) H Calcium Level 9.4 mg/dL (8.5-10.1) Magnesium Level 2.0 mg/dL (1.8-2.4) Total Bilirubin 0.4 mg/dL (0.2-1.0) Direct Bilirubin 0.2 mg/dL (0.0-0.2) Aspartate Amino Transferase (AST) 19 U/L (15-37) Alanine Aminotransferase (ALT) 16 U/L (14-59) Alkaline Phosphatase 150 U/L (46-116) H Creatine Kinase 41 U/L (26-192) Creatine Kinase MB (Mass) < 0.5 ng/mL (0.0-3.6) Creatine Kinase MB Relative Index % (0-4) Troponin I Quantitative < 0.017 ng/mL (0.000-0.055) AS-Bmm-P-Type Natriuretic Peptide 750 pg/mL (0-124) H Total Protein 8.5 g/dL (6.4-8.2) H Albumin 2.9 g/dL (3.4-5.0) L Lipase 102 U/L (73-393) Thyroid Stimulating Hormone (TSH) 5.286 uIU/mL (0.358-3.74) H Laboratory Tests 01/26/17 09:10 Laboratory Tests 01/26/17 09:10 EKG EKG EKG at 921 shows sinus rhythm with rate of [address] elevations, T- wave inversions noted in leads aVL, left axis deviation, QTC 452 ms, as interpreted by me. Radiology/Procedures Radiology/Procedures [facility] [address] [place] [address] IMAGING REPORT Signed PATIENT: BRYANT LOCKHART ACCOUNT: [id number] : 1940 LOCATION: ER AGE: 76 SEX: F EXAM STATUS: REG ER ORD. PHYSICIAN: STEPHANIE MERLOS MD REASON: weakness/RN WILL CALL WHEN READY 0845 PROCEDURE: PORTABLE CHEST 1V Exam: AP portable chest. History: Weakness beginning previous day. Comparison: 11/26/2016. Findings: The heart and mediastinal structures are within normal limits for size. Lungs are without infiltrate. No pneumothorax or pleural effusion is appreciated. Aortic atherosclerosis is seen. Median sternotomy wires are present. Impression: 1. No acute cardiopulmonary process. DICTATED and SIGNED BY: HAWA MINER MD DATE: 01/26/1728 CC: STEPHANIE MERLOS MD; LISA CALHOUN ~ Impressions: Generaled weakness UTI Hyperkalemia Course & Med Decision Making Course & Med Decision Making Pertinent Labs and Imaging studies reviewed. (See chart for details) Urine shows positive leukestase with white and red blood cells. Spoke with Dr. Alegria who knows patient well for Dr. Ritchie who agrees with Rocephin and then likely discharge on Cipro when appropriate. Patient is being admitted for generalized weakness and hyperkalemia. She is receiving IV fluids and is in stable condition be admitted the hospitalist at this time. Interim orders have been written. Dragon Disclaimer Dragon Disclaimer This electronic medical record was generated, in whole or in part, using a voice recognition dictation system. Departure Departure Impression: Primary Impression: UTI (urinary tract infection) Disposition: ADMITTED INPATIENT Admitting Physician: Apple Kaminski Condition: STABLE Referrals: LISA CALHOUN (PCP) STEPHANIE MERLOS MD January 26, 2017 08:36
[2017-01-26 09:02] LABS: BILIRUBIN,URINE NEGATIVE (NEG); GLUCOSE,URINE NEGATIVE (NEG); NITRITE,URINE NEGATIVE (NEG); PROTEIN,URINE 100 mg/dL (NEG-TRACE); UROBILINOGEN,URINE 0.2 mg/dL (0.2 mg/dL)
[2017-01-26 09:23] LABS: BACTERIA,URINE 0 /HPF (0-FEW); RBC,URINE 20-40 /HPF (0-2); SQUAMOUS EPITHELIAL CELL,UR FEW /LPF; WBC,URINE TNTC /HPF (0-4)
--- NOTE | 2017-01-26 09:32 | RAD ---
Exam: AP portable chest. History: Weakness beginning previous day. Comparison: 11/26/2016. Findings: The heart and mediastinal structures are within normal limits for size. Lungs are without infiltrate. No pneumothorax or pleural effusion is appreciated. Aortic atherosclerosis is seen. Median sternotomy wires are present. Impression: 1. No acute cardiopulmonary process.
[2017-01-26 09:34] LABS: BASO # 0.1 x10^3/uL (0.0-0.2); BASO % 1 % (0-3); EOS % 3 % (0-3); HEMATOCRIT 33.1 % (36.0-47.0); HEMOGLOBIN 10.8 g/dL (12.0-15.5); LYMPH % 27 % (24-48); MEAN CORPUSCULAR HEMOGLOBIN 30 pg (25-35); MEAN CORPUSCULAR HGB CONC 33 g/dL (31-37); MEAN CORPUSCULAR VOLUME 91 fL (79-100); MONO % 9 % (0-9); NEUT % 60 % (31-73); PLATELET COUNT 273 x10^3/uL (140-400); RED BLOOD COUNT 3.63 x10^6/uL (3.50-5.40); RED CELL DISTRIBUTION WIDTH 15.5 % (11.5-14.5); WHITE BLOOD COUNT 7.4 x10^3/uL (4.0-11.0)
[2017-01-26 09:39] LABS: CALCIUM 9.4 mg/dL (8.5-10.1); CREATININE 3.3 mg/dL (0.6-1.0); GFR 13.7; POTASSIUM 5.4 mmol/L (3.5-5.1)
[2017-01-26 09:45] LABS: ALBUMIN 2.9 g/dL (3.4-5.0); DIRECT BILIRUBIN 0.2 mg/dL (0.0-0.2); TOTAL BILIRUBIN 0.4 mg/dL (0.2-1.0); TOTAL PROTEIN 8.5 g/dL (6.4-8.2)
[2017-01-26 09:47] LABS: INR 1.1 (0.8-1.1); PROTHROMBIN TIME PATIENT 13.4 SEC (11.7-14.0)
[2017-01-26 09:53] LABS: CKMB MASS < 0.5 ng/mL (0.0-3.6); CREATINE KINASE 41 U/L (26-192)
[2017-01-26] MEDS ORDERED: IV NORMAL SALINE 1000ML BAG 1,000 ML IV ONE (11:15)
[2017-01-26] MEDS ORDERED: ONDANSETRON PF 4 MG/2 ML VIAL. IV PRN (12:30)
--- NOTE | 2017-01-26 13:47 | EKG ---
[facility] [address] [place] [address] Test Date: 2017-01-26 Test Time: 09:21:18 Pat Name: BRYANT LOCKHART Department: Room: 538 1 Gender: F Director Oncology: : 1940 Requested By: STEPHANIE MERLOS Order Number: [id number] Reading MD: Shine Zapata Measurements Intervals [place] Rate: 82 P: -26 [place]: 148 QRS: -14 QRSD: 84 T: 73 QT: 384 QTc: 452 Interpretive Statements SINUS RHYTHM LAD POSSIBLE INFERIOR INFARCT Electronically Signed On 01-27-2017 9:24:46 CDT by Shine Zapata
[2017-01-26 15:00] VITALS: BP 140/76
--- NOTE | 2017-01-26 16:07 | PDOC1 ---
History and Physical Date of Admission Date of Admission DATE: 01/26/17 TIME: 16:03 Identification/Chief Complaint Chief Complaint flank pain Problems: Source Source: Chart review, Patient History of Present Illness History of Present Illness Ms. eller, is a 76 year old female admit with abd pain and weakness. She feels similar to her last UTI, recent admit here about a month ago, recent frequent bladder infections since she's had ureteral stents placed. She states her osteologist is Dr. Escalante Her urinary incontinence is the same, and then sometimes has to straight catheter. She is weak today, and has low energy but otherwise feels well, she was upset about ADA diet ordered Past Medical History Past Medical History coronary artery disease hypertension, dyslipidemia, diabetes. Cardiovascular: CAD, HTN GI: Other Heme/Onc: No pertinent hx Psych: No pertinent hx Rheumatologic: No pertinent hx Infectious disease: No pertinent hx Renal/: Chronic renal insuff, UTI, Other Endocrine: Diabetes Past Surgical History Past Surgical History: Cystoscopy, Other Family History Family History: No Significant, Other Social History Smoke: No ALCOHOL: none Drugs: None Current Medications Current Medications Current Medications Sodium Chloride 1,000 ml @ 1,000 mls/hr 1X ONCE IV Last administered on 11:18; Start 01/26/17 at 11:15; Stop 01/26/17 at 12:14; Status DC Ondansetron HCl (Zofran) 4 mg PRN Q8HRS PRN IV NAUSEA/VOMITING; Start 01/26/17 at 12:30; Stop 01/27/17 at 12:29 Ceftriaxone Sodium 50 ml @ 100 mls/hr 1X ONCE IV Last administered on t 12:56; Start 01/26/17 at 12:30; Stop 01/26/17 at 12:59; Status DC Ceftriaxone Sodium 1 gm/ Sodium Chloride 50 ml @ 100 mls/hr Q24H IV ; Start 01/27/17 at 12:30 Ascorbic Acid (Vitamin C) 500 mg DAILY08 PO ; Start 01/27/17 at 08:00 Aspirin (Ecotrin) 81 mg DAILY08 PO ; Start 01/27/17 at 08:00 Carvedilol (Coreg) 3.125 mg DAILY PO ; Start 01/27/17 at 09:00 Simvastatin (Zocor) 40 mg QHS PO ; Start 01/26/17 at 21:00 Sodium Bicarbonate (Sodium Bicarbonate) 1,300 mg BID PO ; Start 01/26/17 at 21: 00 Ferrous Sulfate (Feosol) 325 mg DAILYWBKFT PO ; Start 01/27/17 at 08:00 Insulin Aspart (NovoLOG) 13 units TIDAC SQ ; Start 01/26/17 at 16:30 Insulin Detemir (Levemir) 23 units QHS SQ ; Start 01/26/17 at 21:00 Vitamin B Complex (Folbic Tablet) 1 tab DAILY PO ; Start 01/26/17 at 15:30 Active Scripts Active Macrobid 100 Mg Capsule (Nitrofurantoin Monohyd/M-Cryst) 100 Mg Capsule 1 Cap PO BID Reported Ferrous Sulfate 140 Mg Tablet.er 140 Mg PO DAILY Lantus Solostar (Insulin Glargine,Hum.rec.anlog) 100 Unit/1 Ml Insuln.pen 23 Unit SQ QHS Last dose given: 08-20-14 (;00 p.m. Next dose due: tonjulien Novolog (Insulin Aspart) 100 Unit/1 Ml Cartridge 13 Unit SQ TIDAC Last dose given: 11:30 a.m. Next dose due: With next meal Vitamin C (Ascorbic Acid) 500 Mg Tablet 500 Mg PO DAILY08 Simvastatin 40 Mg Tablet 1 Tab PO QHS Last dose given: 08-20-14 9:00 p.m. Next dose due: evangelist Carvedilol 3.125 Mg Tablet 1 Tab PO DAILY Last dose given: 9:00 a.m. Next dose due: 08-22-14 9:00 a.m. Sodium Bicarbonate 650 Mg Tablet 2 Tab PO BID Last dose given: 9:00 a.m. Next dose due: evangelist Aspir 81 (Aspirin) 81 Mg Tablet. 1 Tab PO DAILY08 Allergies Allergies: Coded Allergies: latex (Verified Allergy, Intermediate, Rash, 12/22/16) ROS Review of System She denies any fevers chills chest pain, shortness of breath, nausea, vomiting , abdominal pain or dysuria. General: YES: Fatigue, No: Chills, Night Sweats, Malaise, Appetite, Other PSYCHOLOGICAL ROS: YES: Anxiety, Behavioral Disorder, Concentration difficultie , Decreased libido, Depression, Disorientation, Hallucinations, Hostility, Irritablity, Memory difficulties, Mood Swings, Obsessive thoughts, Physical abuse, Sexual abuse, Sleep disturbances, Suicidal ideation, Other Eyes: No Blurry vision, No Decreased vision, No Double vision, No Dry eyes, No Eye Pain, No Itchy Eyes, No Loss of vision, No Photophobia, No Scotomata, No Uses contacts, No Uses glasses, No Other HEENT: YES: Heacaches, No: Visual Changes, Hearing change, Nasal congestion, Nasal discharge, Oral lesions, Sinus pain, Sore Throat, Epistaxis, Sneezing, Snoring, Tinnitus, Vertigo, Vocal changes, Other Gastrointestinal: Yes Nausea, No Vomiting, No Abdominal Pain, No Diarrhea, No Constipation, No Melena, No Hematochezia, No Other Genitourinary: YES Flank Pain, No Dysuria, No Frequency, No Incontinence, No Hematuria, No Retention, No Discharge, No Urgency, No Pain, No Other, No , No , No , No , No , No , No Musculoskeletal: Yes Joint Stiffness, No Gait Disturbance, No Joint Pain, No Joint Swelling, No Muscle Pain, No Muscular Weakness, No Pain In:, No Swelling In:, No Other Neurological: No Behavorial Changes, No Bowel/Bladder ControlChng, No Confusion , No Dizziness, No Gait Disturbance, No Headaches, No Impaired Coord/balance, No Memory Loss, No Numbness/Tingling, No Seizures, No Speech Problems, No Tremors, No Visual Changes, No Weakness, No Other Skin: No Dry Skin, No Eczema, No Hair Changes, No Lumps, No Mole Changes, No Mottling, No Nail Changes, No Pruritus, No Rash, No Skin Lesion Changes, No Other, No Acne Physical Exam General: Alert, Oriented X3, Cooperative, No acute distress HEENT: EOMI Lungs: Normal air movement Heart: S1S2, no gallops, no murmurs Abdomen: Normal bowel sounds, Soft Rectal Exam: not examined Extremities: No clubbing, No edema, Normal pulses Skin: No rashes, No significant lesion Neuro: Normal speech, Cranial nerves 3-12 NL Psych/Mental Status: Mood NL Vitals Vitals Vital Signs Date Time Temp Pulse Resp B/P (MAP) Pulse Ox O2 Delivery O2 Flow Rate FiO2 01/26/17 12:31 76 16 157/67 (97) 98 Room Air 01/26/17 08:34 98.7 98.7 Labs Labs Laboratory Tests Test 01/26/17 08:45 01/26/17 09:10 Urine Collection Type U cath Urine Color Yellow Urine Clarity Turbid Urine pH 7.0 Urine Specific [place] 1.010 Urine Protein 100 mg/dL (NEG-TRACE) Urine Glucose (UA) Negative mg/dL (NEG) Urine Ketones (Stick) Negative mg/dL (NEG) Urine Blood Large (NEG) Urine Nitrite Negative (NEG) Urine Bilirubin Negative (NEG) Urine Urobilinogen Dipstick 0.2 mg/dL (0.2 mg/dL) Urine Leukocyte Esterase Large (NEG) Urine RBC 20-40 /HPF (0-2) Urine WBC Tntc /HPF (0-4) Urine Squamous Epithelial Cells Few /LPF Urine Bacteria 0 /HPF (0-FEW) White Blood Count 7.4 x10^3/uL (4.0-11.0) Red Blood Count 3.63 x10^6/uL (3.50-5.40) Hemoglobin 10.8 g/dL (12.0-15.5) Hematocrit 33.1 % (36.0-47.0) Mean Corpuscular Volume 91 fL (79-100) Mean Corpuscular Hemoglobin 30 pg (25-35) Mean Corpuscular Hemoglobin Concent 33 g/dL (31-37) Red Cell Distribution Width 15.5 % (11.5-14.5) Platelet Count 273 x10^3/uL (140-400) Neutrophils (%) (Auto) 60 % (31-73) Lymphocytes (%) (Auto) 27 % (24-48) Monocytes (%) (Auto) 9 % (0-9) Eosinophils (%) (Auto) 3 % (0-3) Basophils (%) (Auto) 1 % (0-3) Neutrophils # (Auto) 4.5 x10^3uL (1.8-7.7) Lymphocytes # (Auto) 2.0 x10^3/uL (1.0-4.8) Monocytes # (Auto) 0.7 x10^3/uL (0.0-1.1) Eosinophils # (Auto) 0.2 x10^3/uL (0.0-0.7) Basophils # (Auto) 0.1 x10^3/uL (0.0-0.2) Prothrombin Time 13.4 SEC (11.7-14.0) Prothromb Time International Ratio 1.1 (0.8-1.1) Sodium Level 143 mmol/L (136-145) Potassium Level 5.4 mmol/L (3.5-5.1) Chloride Level 106 mmol/L (98-107) Carbon Dioxide Level 25 mmol/L (21-32) Anion Gap 12 (6-14) Blood Urea Nitrogen 52 mg/dL (7-20) Creatinine 3.3 mg/dL (0.6-1.0) Estimated GFR (Cockcroft-Gault) 13.7 Glucose Level 154 mg/dL (70-99) Calcium Level 9.4 mg/dL (8.5-10.1) Magnesium Level 2.0 mg/dL (1.8-2.4) Total Bilirubin 0.4 mg/dL (0.2-1.0) Direct Bilirubin 0.2 mg/dL (0.0-0.2) Aspartate Amino Transf (AST/SGOT) 19 U/L (15-37) Alanine Aminotransferase (ALT/SGPT) 16 U/L (14-59) Alkaline Phosphatase 150 U/L (46-116) Creatine Kinase 41 U/L (26-192) Creatine Kinase MB (Mass) < 0.5 ng/mL (0.0-3.6) Creatine Kinase MB Relative Index % (0-4) Troponin I Quantitative < 0.017 ng/mL (0.000-0.055) KC-Imz-L-Type Natriuretic Peptide 750 pg/mL (0-124) Total Protein 8.5 g/dL (6.4-8.2) Albumin 2.9 g/dL (3.4-5.0) Lipase 102 U/L (73-393) Thyroid Stimulating Hormone (TSH) 5.286 uIU/mL (0.358-3.74) Laboratory Tests Test 01/26/17 08:45 01/26/17 09:10 Urine Collection Type U cath Urine Color Yellow Urine Clarity Turbid Urine pH 7.0 Urine Specific [place] 1.010 Urine Protein 100 mg/dL (NEG-TRACE) Urine Glucose (UA) Negative mg/dL (NEG) Urine Ketones (Stick) Negative mg/dL (NEG) Urine Blood Large (NEG) Urine Nitrite Negative (NEG) Urine Bilirubin Negative (NEG) Urine Urobilinogen Dipstick 0.2 mg/dL (0.2 mg/dL) Urine Leukocyte Esterase Large (NEG) Urine RBC 20-40 /HPF (0-2) Urine WBC Tntc /HPF (0-4) Urine Squamous Epithelial Cells Few /LPF Urine Bacteria 0 /HPF (0-FEW) White Blood Count 7.4 x10^3/uL (4.0-11.0) Red Blood Count 3.63 x10^6/uL (3.50-5.40) Hemoglobin 10.8 g/dL (12.0-15.5) Hematocrit 33.1 % (36.0-47.0) Mean Corpuscular Volume 91 fL (79-100) Mean Corpuscular Hemoglobin 30 pg (25-35) Mean Corpuscular Hemoglobin Concent 33 g/dL (31-37) Red Cell Distribution Width 15.5 % (11.5-14.5) Platelet Count 273 x10^3/uL (140-400) Neutrophils (%) (Auto) 60 % (31-73) Lymphocytes (%) (Auto) 27 % (24-48) Monocytes (%) (Auto) 9 % (0-9) Eosinophils (%) (Auto) 3 % (0-3) Basophils (%) (Auto) 1 % (0-3) Neutrophils # (Auto) 4.5 x10^3uL (1.8-7.7) Lymphocytes # (Auto) 2.0 x10^3/uL (1.0-4.8) Monocytes # (Auto) 0.7 x10^3/uL (0.0-1.1) Eosinophils # (Auto) 0.2 x10^3/uL (0.0-0.7) Basophils # (Auto) 0.1 x10^3/uL (0.0-0.2) Prothrombin Time 13.4 SEC (11.7-14.0) Prothromb Time International Ratio 1.1 (0.8-1.1) Sodium Level 143 mmol/L (136-145) Potassium Level 5.4 mmol/L (3.5-5.1) Chloride Level 106 mmol/L (98-107) Carbon Dioxide Level 25 mmol/L (21-32) Anion Gap 12 (6-14) Blood Urea Nitrogen 52 mg/dL (7-20) Creatinine 3.3 mg/dL (0.6-1.0) Estimated GFR (Cockcroft-Gault) 13.7 Glucose Level 154 mg/dL (70-99) Calcium Level 9.4 mg/dL (8.5-10.1) Magnesium Level 2.0 mg/dL (1.8-2.4) Total Bilirubin 0.4 mg/dL (0.2-1.0) Direct Bilirubin 0.2 mg/dL (0.0-0.2) Aspartate Amino Transf (AST/SGOT) 19 U/L (15-37) Alanine Aminotransferase (ALT/SGPT) 16 U/L (14-59) Alkaline Phosphatase 150 U/L (46-116) Creatine Kinase 41 U/L (26-192) Creatine Kinase MB (Mass) < 0.5 ng/mL (0.0-3.6) Creatine Kinase MB Relative Index % (0-4) Troponin I Quantitative < 0.017 ng/mL (0.000-0.055) JI-Lvv-J-Type Natriuretic Peptide 750 pg/mL (0-124) Total Protein 8.5 g/dL (6.4-8.2) Albumin 2.9 g/dL (3.4-5.0) Lipase 102 U/L (73-393) Thyroid Stimulating Hormone (TSH) 5.286 uIU/mL (0.358-3.74) VTE Prophylaxis Ordered VTE Prophylaxis Devices: Yes VTE Pharmacological Prophylaxi: Yes Assessment/Plan Assessment/Plan acute renal failure on CKD 4 UTI prior renal stents, consult URo Dm2, not compliant with diet, want reg diet here. ADAN THAKUR MD January 26, 2017 16:07
--- NOTE | 2017-01-26 16:18 | PDOC2 ---
CONSULT Date of Consult Date of Consult DATE: 01/26/17 TIME: 16:16 Reason for Consult Reason for Consult: ckd iv/ v Referring Physician Referring Physician: Gordy Identification/Chief Complaint Chief Complaint UTI Problems: Source Source: Chart review, Patient History of Present Illness Reason for Visit: as dictated Past Medical History Cardiovascular: CAD, HTN GI: Other Heme/Onc: No pertinent hx Psych: No pertinent hx Rheumatologic: No pertinent hx Infectious disease: No pertinent hx Renal/: Chronic renal insuff, UTI, Other Endocrine: Diabetes Past Surgical History Past Surgical History: Cystoscopy, Other Family History Family History: No Significant, Other Social History No ALCOHOL: none Drugs: None Lives: Alone Current Medications Current Medications Current Medications Sodium Chloride 1,000 ml @ 1,000 mls/hr 1X ONCE IV Last administered on 11:18; Start 01/26/17 at 11:15; Stop 01/26/17 at 12:14; Status DC Ondansetron HCl (Zofran) 4 mg PRN Q8HRS PRN IV NAUSEA/VOMITING; Start 01/26/17 at 12:30; Stop 01/27/17 at 12:29 Ceftriaxone Sodium 50 ml @ 100 mls/hr 1X ONCE IV Last administered on 12:56; Start 01/26/17 at 12:30; Stop 01/26/17 at 12:59; Status DC Ceftriaxone Sodium 1 gm/ Sodium Chloride 50 ml @ 100 mls/hr Q24H IV ; Start 01/27/17 at 12:30 Ascorbic Acid (Vitamin C) 500 mg DAILY08 PO ; Start 01/27/17 at 08:00 Aspirin (Ecotrin) 81 mg DAILY08 PO ; Start 01/27/17 at 08:00 Carvedilol (Coreg) 3.125 mg DAILY PO ; Start 01/27/17 at 09:00 Simvastatin (Zocor) 40 mg QHS PO ; Start 01/26/17 at 21:00 Sodium Bicarbonate (Sodium Bicarbonate) 1,300 mg BID PO ; Start 01/26/17 at 21: 00 Ferrous Sulfate (Feosol) 325 mg DAILYWBKFT PO ; Start 01/27/17 at 08:00 Insulin Aspart (NovoLOG) 13 units TIDAC SQ ; Start 01/26/17 at 16:30 Insulin Detemir (Levemir) 23 units QHS SQ ; Start 01/26/17 at 21:00 Vitamin B Complex (Folbic Tablet) 1 tab DAILY PO ; Start 01/26/17 at 15:30 Active Scripts Active Macrobid 100 Mg Capsule (Nitrofurantoin Monohyd/M-Cryst) 100 Mg Capsule 1 Cap PO BID Reported Ferrous Sulfate 140 Mg Tablet.er 140 Mg PO DAILY Lantus Solostar (Insulin Glargine,Hum.rec.anlog) 100 Unit/1 Ml Insuln.pen 23 Unit SQ QHS Last dose given: 08-20-14 (;00 p.m. Next dose due: tonight Novolog (Insulin Aspart) 100 Unit/1 Ml Cartridge 13 Unit SQ TIDAC Last dose given: 11:30 a.m. Next dose due: With next meal Vitamin C (Ascorbic Acid) 500 Mg Tablet 500 Mg PO DAILY08 Simvastatin 40 Mg Tablet 1 Tab PO QHS Last dose given: 08-20-14 9:00 p.m. Next dose due: lorenzojulien Carvedilol 3.125 Mg Tablet 1 Tab PO DAILY Last dose given: 9:00 a.m. Next dose due: 08-22-14 9:00 a.m. Sodium Bicarbonate 650 Mg Tablet 2 Tab PO BID Last dose given: 9:00 a.m. Next dose due: evangelist Aspir 81 (Aspirin) 81 Mg Tablet. 1 Tab PO DAILY08 Allergies Allergies: Coded Allergies: latex (Verified Allergy, Intermediate, Rash, 12/22/16) ROS Review of System GEN: no Fevers no Chills EYES: no new Visual Complaints ENT: no EN Drainage no Hearing deficiets CVS: no Orthopnea no CP RESP: no SOB no CARABALLO GI: min Nausea no Vomiting + Anorexia : no Dysuria no Urgency Atonic baldder HEME: no easy bruising no Palp Ly Nodes NEURO no Focal Weakness no Sz PSYCH: no Suicidal Ideation no Depression SKIN: no Rashes ENDO: no Polyuria or Polydipsia no Hot/Cold Intolerance MU SK: no Arthraigia no Myalgia Physical Exam Physical Exam General Appearance: Awake Alert Oriented x 3 In no Distress Eyes: VIsion Unchanged Conjunctiva Normal EN: No EN Drainage Mucous Memb. moist Neck: no JVD min JVP Supple no Thyromegaly CVS: S1 S2 + Murmur No Gallop No Rub no Edema Resp: no Rales no Rhonchi no Acc. Muscle use GI: BAS +ve NO Bruit Non Tender Non Distended : no CVA tenderness; no Suprapubic Tenderness SKIN: no Rashes Breast Exam deferred Mu.Sk: Adequate ROM no Muscle Atrophy Heme: Unable to palpate Obvious LAD no Splenomegaly NEURO: Good Strength and Tone Cranial Nerves II - XII grossly intact Psych: not Depressed no Active hallucination Vital Signs Vital Signs Date Time Temp Pulse Resp B/P (MAP) Pulse Ox O2 Delivery O2 Flow Rate FiO2 01/26/17 12:31 76 16 157/67 (97) 98 Room Air 01/26/17 08:34 98.7 98.7 Assessment & Plan CKD V - with ? Uremic Prodrome: have recc that pt consider initiation of HD, she is reluctant at this time. She thinks she has a UTI and thats why she has anorexia. Will re-evaluate for Dialysis in am Nehpritic Urine - has been on macrobid per home list of meds - await Cx ^K - Kayexalate - will need Veltessa as OP Anemia: may need Epogen if hgb < 10. Transfuse as needed. HTN: Current BP meds reviewed. See orders for changes. Ch Hydronephrosis with ? Atonic Bladder - Pt self caths - I suspect this has gotten to the point where she probably needs to start dialysis. Discussed Plan of Care and prognosis etc. at length with pt Labs Labs Laboratory Tests Test 01/26/17 08:45 01/26/17 09:10 Urine Collection Type U cath Urine Color Yellow Urine Clarity Turbid Urine pH 7.0 Urine Specific [place] 1.010 Urine Protein 100 mg/dL (NEG-TRACE) Urine Glucose (UA) Negative mg/dL (NEG) Urine Ketones (Stick) Negative mg/dL (NEG) Urine Blood Large (NEG) Urine Nitrite Negative (NEG) Urine Bilirubin Negative (NEG) Urine Urobilinogen Dipstick 0.2 mg/dL (0.2 mg/dL) Urine Leukocyte Esterase Large (NEG) Urine RBC 20-40 /HPF (0-2) Urine WBC Tntc /HPF (0-4) Urine Squamous Epithelial Cells Few /LPF Urine Bacteria 0 /HPF (0-FEW) White Blood Count 7.4 x10^3/uL (4.0-11.0) Red Blood Count 3.63 x10^6/uL (3.50-5.40) Hemoglobin 10.8 g/dL (12.0-15.5) Hematocrit 33.1 % (36.0-47.0) Mean Corpuscular Volume 91 fL (79-100) Mean Corpuscular Hemoglobin 30 pg (25-35) Mean Corpuscular Hemoglobin Concent 33 g/dL (31-37) Red Cell Distribution Width 15.5 % (11.5-14.5) Platelet Count 273 x10^3/uL (140-400) Neutrophils (%) (Auto) 60 % (31-73) Lymphocytes (%) (Auto) 27 % (24-48) Monocytes (%) (Auto) 9 % (0-9) Eosinophils (%) (Auto) 3 % (0-3) Basophils (%) (Auto) 1 % (0-3) Neutrophils # (Auto) 4.5 x10^3uL (1.8-7.7) Lymphocytes # (Auto) 2.0 x10^3/uL (1.0-4.8) Monocytes # (Auto) 0.7 x10^3/uL (0.0-1.1) Eosinophils # (Auto) 0.2 x10^3/uL (0.0-0.7) Basophils # (Auto) 0.1 x10^3/uL (0.0-0.2) Prothrombin Time 13.4 SEC (11.7-14.0) Prothromb Time International Ratio 1.1 (0.8-1.1) Sodium Level 143 mmol/L (136-145) Potassium Level 5.4 mmol/L (3.5-5.1) Chloride Level 106 mmol/L (98-107) Carbon Dioxide Level 25 mmol/L (21-32) Anion Gap 12 (6-14) Blood Urea Nitrogen 52 mg/dL (7-20) Creatinine 3.3 mg/dL (0.6-1.0) Estimated GFR (Cockcroft-Gault) 13.7 Glucose Level 154 mg/dL (70-99) Calcium Level 9.4 mg/dL (8.5-10.1) Magnesium Level 2.0 mg/dL (1.8-2.4) Total Bilirubin 0.4 mg/dL (0.2-1.0) Direct Bilirubin 0.2 mg/dL (0.0-0.2) Aspartate Amino Transf (AST/SGOT) 19 U/L (15-37) Alanine Aminotransferase (ALT/SGPT) 16 U/L (14-59) Alkaline Phosphatase 150 U/L (46-116) Creatine Kinase 41 U/L (26-192) Creatine Kinase MB (Mass) < 0.5 ng/mL (0.0-3.6) Creatine Kinase MB Relative Index % (0-4) Troponin I Quantitative < 0.017 ng/mL (0.000-0.055) LW-Cdm-M-Type Natriuretic Peptide 750 pg/mL (0-124) Total Protein 8.5 g/dL (6.4-8.2) Albumin 2.9 g/dL (3.4-5.0) Lipase 102 U/L (73-393) Thyroid Stimulating Hormone (TSH) 5.286 uIU/mL (0.358-3.74) Laboratory Tests Test 01/26/17 08:45 01/26/17 09:10 Urine Collection Type U cath Urine Color Yellow Urine Clarity Turbid Urine pH 7.0 Urine Specific [place] 1.010 Urine Protein 100 mg/dL (NEG-TRACE) Urine Glucose (UA) Negative mg/dL (NEG) Urine Ketones (Stick) Negative mg/dL (NEG) Urine Blood Large (NEG) Urine Nitrite Negative (NEG) Urine Bilirubin Negative (NEG) Urine Urobilinogen Dipstick 0.2 mg/dL (0.2 mg/dL) Urine Leukocyte Esterase Large (NEG) Urine RBC 20-40 /HPF (0-2) Urine WBC Tntc /HPF (0-4) Urine Squamous Epithelial Cells Few /LPF Urine Bacteria 0 /HPF (0-FEW) White Blood Count 7.4 x10^3/uL (4.0-11.0) Red Blood Count 3.63 x10^6/uL (3.50-5.40) Hemoglobin 10.8 g/dL (12.0-15.5) Hematocrit 33.1 % (36.0-47.0) Mean Corpuscular Volume 91 fL (79-100) Mean Corpuscular Hemoglobin 30 pg (25-35) Mean Corpuscular Hemoglobin Concent 33 g/dL (31-37) Red Cell Distribution Width 15.5 % (11.5-14.5) Platelet Count 273 x10^3/uL (140-400) Neutrophils (%) (Auto) 60 % (31-73) Lymphocytes (%) (Auto) 27 % (24-48) Monocytes (%) (Auto) 9 % (0-9) Eosinophils (%) (Auto) 3 % (0-3) Basophils (%) (Auto) 1 % (0-3) Neutrophils # (Auto) 4.5 x10^3uL (1.8-7.7) Lymphocytes # (Auto) 2.0 x10^3/uL (1.0-4.8) Monocytes # (Auto) 0.7 x10^3/uL (0.0-1.1) Eosinophils # (Auto) 0.2 x10^3/uL (0.0-0.7) Basophils # (Auto) 0.1 x10^3/uL (0.0-0.2) Prothrombin Time 13.4 SEC (11.7-14.0) Prothromb Time International Ratio 1.1 (0.8-1.1) Sodium Level 143 mmol/L (136-145) Potassium Level 5.4 mmol/L (3.5-5.1) Chloride Level 106 mmol/L (98-107) Carbon Dioxide Level 25 mmol/L (21-32) Anion Gap 12 (6-14) Blood Urea Nitrogen 52 mg/dL (7-20) Creatinine 3.3 mg/dL (0.6-1.0) Estimated GFR (Cockcroft-Gault) 13.7 Glucose Level 154 mg/dL (70-99) Calcium Level 9.4 mg/dL (8.5-10.1) Magnesium Level 2.0 mg/dL (1.8-2.4) Total Bilirubin 0.4 mg/dL (0.2-1.0) Direct Bilirubin 0.2 mg/dL (0.0-0.2) Aspartate Amino Transf (AST/SGOT) 19 U/L (15-37) Alanine Aminotransferase (ALT/SGPT) 16 U/L (14-59) Alkaline Phosphatase 150 U/L (46-116) Creatine Kinase 41 U/L (26-192) Creatine Kinase MB (Mass) < 0.5 ng/mL (0.0-3.6) Creatine Kinase MB Relative Index % (0-4) Troponin I Quantitative < 0.017 ng/mL (0.000-0.055) SU-Ktg-X-Type Natriuretic Peptide 750 pg/mL (0-124) Total Protein 8.5 g/dL (6.4-8.2) Albumin 2.9 g/dL (3.4-5.0) Lipase 102 U/L (73-393) Thyroid Stimulating Hormone (TSH) 5.286 uIU/mL (0.358-3.74) Images Images Comparison: 11/26/2016. Findings: The heart and mediastinal structures are within normal limits for size. Lungs are without infiltrate. No pneumothorax or pleural effusion is appreciated. Aortic atherosclerosis is seen. Median sternotomy wires are present. Impression: 1. No acute cardiopulmonary process. TRINA العلي MD January 26, 2017 16:18
[2017-01-26] MEDS ORDERED: MAGNESIUM SULFATE 2GM 50 ML IV PRN (16:30)
[2017-01-26] MEDS ORDERED: SODIUM POLYSTYRENE SULFONATE 15 GM/60 ML ORAL.SUSP. PO ONE (16:30)
--- NOTE | 2017-01-26 16:30 | PDOC ---
Provider Note Provider Note Urology: This is a patient of Dr Ritchie, he is on campus, not sure why he wasn't consulted. Patient states she was admitted for "loss of appetite, weakness, hyperkalemia" Hx chronic renal failure, patient of Dr Bolanos LAB: reviewed, no active UTI Plan: No acute urological problem at this time, f/u with Dr Ritchie as outpatient. Thank-you, MALINI FOFANA DO January 26, 2017 16:30
[2017-01-26 16:43] VITALS: BP 140/76
[2017-01-26] MEDS: VITAMIN B12,B9,B6 COMPLEX 1 TABLET. PO SCH (17:19)
[2017-01-26] MEDS: INSULIN ASPART 300 UNITS/3 ML INSULN.PEN SQ SCH (17:41)
[2017-01-26] MEDS: IV NORMAL SALINE 1000ML BAG 1,000 ML IV SCH (17:42)
[2017-01-26 19:00] VITALS: BP 118/60
[2017-01-26] MEDS: SODIUM BICARBONATE 650 MG TABLET. PO SCH (20:39)
[2017-01-26] MEDS: SIMVASTATIN 40 MG TABLET. PO SCH (20:39)
[2017-01-26] MEDS: INSULIN DETEMIR 300 UNITS/3 ML INSULN.PEN. SQ SCH (20:39)
[2017-01-26 23:00] VITALS: BP 104/67
[2017-01-27 01:06] LABS: BASO # 0.1 x10^3/uL (0.0-0.2); BASO % 1 % (0-3); EOS % 4 % (0-3); HEMATOCRIT 29.8 % (36.0-47.0); HEMOGLOBIN 9.7 g/dL (12.0-15.5); LYMPH % 26 % (24-48); MEAN CORPUSCULAR HEMOGLOBIN 30 pg (25-35); MEAN CORPUSCULAR HGB CONC 33 g/dL (31-37); MEAN CORPUSCULAR VOLUME 92 fL (79-100); MONO % 10 % (0-9); NEUT % 60 % (31-73); PLATELET COUNT 274 x10^3/uL (140-400); RED BLOOD COUNT 3.23 x10^6/uL (3.50-5.40); RED CELL DISTRIBUTION WIDTH 15.4 % (11.5-14.5)
[2017-01-27 01:55] LABS: ALBUMIN 2.6 g/dL (3.4-5.0); CALCIUM 8.6 mg/dL (8.5-10.1); CREATININE 2.9 mg/dL (0.6-1.0); GFR 15.9; PHOSPHORUS 4.5 mg/dL (2.6-4.7); POTASSIUM 4.7 mmol/L (3.5-5.1)
[2017-01-27 02:49] VITALS: BP 108/61
[2017-01-27] MEDS: IV NORMAL SALINE 1000ML BAG 1,000 ML IV SCH (05:21)
--- NOTE | 2017-01-27 06:41 | CONS ---
DATE OF CONSULTATION: 01/26/2017 CHIEF COMPLAINT: Weakness, hyperkalemia, loss of appetite. HISTORY OF PRESENT ILLNESS: A 76-year-old female, patient of Dr. Ritchie. Dr. Ritchie is on campus, I am not sure ____ Dr. Fofana was consulted. She has a rather extensive urological history. She has a history of bilateral ureteral stents, chronic urinary retention and a history of self-intermittent catheterization and poor compliance. The patient also has a history of chronic renal failure and is a patient of Dr. Bolanos. Further history can be obtained within the body of the chart. ALLERGIES: SHE IS ALLERGIC TO LATEX. PHYSICAL EXAMINATION: GENERAL DESCRIPTION: A 76-year-old female. She is alert and oriented. She denies any pain or discomfort. She states that she was admitted because she had no appetite. She wants to go home. ABDOMEN: Soft, nontender. Negative for flank pain bilaterally. No palpable abdominal masses. No suprapubic tenderness. EXTREMITIES: Negative for cyanosis or edema. LABORATORY STUDIES: The patient's potassium is 5.4. Her BUN is ____, creatinine 3.3. CBC: White blood cell count normal at 7.4, hemoglobin 10.8, hematocrit 33.1, platelets are adequate. Urinalysis: Negative for bacteria, too numerous to count white blood cells, 20-40 red blood cells consistent with her indwelling ureteral stents and her chronic urinary retention. Urine culture is pending. X-RAY STUDIES: No x-rays pertinent to system. IMPRESSION: 1. Chronic renal failure. 2. Weakness. 3. Hyperkalemia. PLAN: 1. The patient does not appear to have an acute urological problem. 2. Would recommend treating the urine culture according to sensitivity results. 3. Follow up with Dr. Ritchie on an outpatient basis when she is discharged. MALINI FOFANA DO DR: JHONY/anthony JOB#: [id number] / [id number]
[2017-01-27 07:00] VITALS: BP 129/67
[2017-01-27] MEDS ORDERED: ASCORBIC ACID 500 MG TABLET PO SCH (08:00)
--- NOTE | 2017-01-27 09:08 | CONS ---
DATE OF CONSULTATION: 01/26/2017 HISTORY OF PRESENT ILLNESS: The patient is a pleasant 76-year-old female who presented to the ER with complaints of anorexia. She is known to have an atonic bladder and has had numerous stents placed to her ureters in the past. She has frequent UTIs, presumably due to self cathing at home, which she does off and on. She claims that usually when she is anorexic, she knows she has a UTI. She presented to the ER for further evaluation. Her urine does look nephritic. She was noted to have potassium 5.4, BUN of 52, creatinine 3.3, GFR of 14 as estimated in our system. Her TSH is noted to be mildly elevated ____. In this setting, she was admitted to the hospital and we were asked to see her for the above-mentioned problems. Lastly, ____ the patient's TSH was noted to be mildly elevated, this we deferred to Dr. Kaminski to correct and felt to be clinically significant. TRINA العلي MD DR: ANTHONY/anthony JOB#: [id number] / [id number]
[2017-01-27] MEDS: ASPIRIN ENTERIC COATED 81 MG TABLET.DR. PO SCH (09:13)
[2017-01-27] MEDS: FERROUS SULFATE 325 MG TABLET. PO SCH (09:14)
[2017-01-27] MEDS: CARVEDILOL 3.125 MG TABLET. PO SCH (09:15)
[2017-01-27] MEDS: VITAMIN B12,B9,B6 COMPLEX 1 TABLET. PO SCH (09:15)
[2017-01-27] MEDS: SODIUM BICARBONATE 650 MG TABLET. PO SCH ×2 (09:16→20:29)
[2017-01-27] MEDS: INSULIN ASPART 300 UNITS/3 ML INSULN.PEN SQ SCH ×3 (09:17→17:01)
--- NOTE | 2017-01-27 09:54 | ACF ---
Admission Forms Criteria URINARY COMPLICATIONS Clinical Indications for Inpatient Care (Place 'X' for any and all applicable criteria): Ongoing inpatient care may be indicated for urinary complications with ANY ONE of the following: [X]I. Urinary tract infection requiring inpatient care as indicated by ANY ONE of the following(8)(19)(20): [ ]a) Severe symptoms (eg, high fever, severe pain) [ ]b) Vomiting or dehydration requiring ongoing inpatient care [X]c) IV antibiotic needs that cannot be managed at lower level of care [ ]d) Hemodynamic instability [ ]e) Obstruction of collecting system by stone or tumor [ ]II. Urinary retention requiring drainage or surgery (3)(4)(5)(17)(18) [ ]III. Renal failure (Use Renal Failure Criteria for further information.) [ ]IV. Oliguria(30) [ ]V. Post obstructive diuresis requiring close monitoring of urine output and intravenous compensation for excessive fluid losses(33) Extended stay beyond goal length of stay for primary condition may be needed until ALL of the following are present(3)(4)(5)(8): [ ]a) Renal function (creatinine) at baseline, or daily decreases in creatinine consistent with renal function return [ ]b) Voiding adequately or with urinary catheter or percutaneous suprapubic tube and management regimen in place that is performable at lower level of care. [ ]c) Urine output adequate [ ]d) Fever absent or resolving [ ]e) Infection absent or treatable at next level of care The original [employer] content created by [employer] has been revised. The portions of the content which have been revised are identified through the use of italic text or in bold, and [facility] has neither reviewed nor approved the modified material. All other unmodified content is copyright [employer] Please see references footnoted in the original [facility], [facility]ot[facility] edition 2016 Admission Criteria Met?: Yes TRAVIS JOSEPH Jan 27, 2017 09:54
--- NOTE | 2017-01-27 10:02 | PDOC ---
SUBJECTIVE ROS TWYLA Doign andf eeling much better, apetite is better too CVS: no Orthopnea, no CP RESP: no SOB, no CARABALLO GI: no Nausea, no Vomiting : elkin Dysuria, no Urgency OBJECTIVE Vital Signs Vital Signs Date Time Temp Pulse Resp B/P (MAP) Pulse Ox O2 Delivery O2 Flow Rate FiO2 01/27/17 09:15 86 129/67 01/27/17 07:00 97.9 18 96 Room Air 97.9 I & 0 Intake and Output 01/27/17 07:00 Intake Total 1350 ml Output Total 850 ml Balance 500 ml Intake Oral 300 ml IV Total 1050 ml Output Urine Total 850 ml # Bowel Movements 3 PHYSICAL EXAM Physical Exam General Appearance: Awake Alert Oriented x 3 In no Distress Eyes: VIsion Unchanged Conjunctiva Normal EN: No EN Drainage Mucous Memb. moist Neck: no JVD min JVP Supple no Thyromegaly CVS: S1 S2 + Murmur No Gallop No Rub no Edema Resp: no Rales no Rhonchi no Acc. Muscle use GI: BAS +ve NO Bruit Non Tender Non Distended : no CVA tenderness; no Suprapubic Tenderness Assessment & Plan ? TWYLA due to VMN and poor PO intake - now better CKD IV - No Uremic s/s : she is reluctant at this time. She thinks she has a UTI (no Cx yet) Nehpritic Urine - has been on macrobid per home list of meds - await Cx ^K - better after Kayexalate - will need Veltessa as OP; RD to see and educate Anemia: may need Epogen if hgb < 10. Transfuse as needed. HTN: Current BP meds reviewed. See orders for changes. Ch Hydronephrosis with ? Atonic Bladder - Pt self caths - Creat improved with Indwelling paniagua and that leads me to suspect that she MAY NOT BE Compliant with self - cath Discussed Plan of Care and prognosis etc. at length with pt COMMENT/RELEVANT DATA Meds Current Medications Medications (Trade) Dose Ordered Sig/Claudette Start Time Stop Time Status Last Admin Dose Admin Ascorbic Acid (Vitamin C) 500 mg DAILY08 01/27/17 08:00 01/27/17 09:14 500 MG Aspirin (Ecotrin) 81 mg DAILY08 01/27/17 08:00 01/27/17 09:13 81 MG Carvedilol (Coreg) 3.125 mg DAILY 01/27/17 09:00 01/27/17 09:15 3.125 MG Ceftriaxone Sodium 1 gm/ Sodium Chloride 50 ml @ 100 mls/hr Q24H 01/27/17 12:30 Ceftriaxone Sodium 50 ml @ 100 mls/hr 1X ONCE 01/26/17 12:30 01/26/17 12:59 DC 01/26/17 12:56 100 MLS/HR Ferrous Sulfate (Feosol) 325 mg DAILYWBKFT 01/27/17 08:00 01/27/17 09:14 325 MG Insulin Aspart (NovoLOG) 13 units TIDAC 01/26/17 16:30 01/27/17 09:17 13 UNITS Insulin Detemir (Levemir) 23 units QHS 01/26/17 21:00 Magnesium Sulfate/ Dextrose 50 ml @ 25 mls/hr PRN DAILY PRN 01/26/17 16:30 Ondansetron HCl (Zofran) 4 mg PRN Q8HRS PRN 01/26/17 12:30 01/27/17 12:29 Simvastatin (Zocor) 40 mg QHS 01/26/17 21:00 01/26/17 20:39 40 MG Sodium Polystyrene Sulfonate (Kayexalate) 30 gm 1X ONCE 01/26/17 16:30 01/26/17 16:31 DC 01/26/17 17:19 30 GM Sodium Bicarbonate (Sodium Bicarbonate) 1,300 mg BID 01/26/17 21:00 01/27/17 09:16 1,300 MG Sodium Chloride 1,000 ml @ 75 mls/hr [id number] 01/26/17 16:30 01/27/17 19:09 01/27/17 05:21 75 MLS/HR Vitamin B Complex (Folbic Tablet) 1 tab DAILY 01/26/17 15:30 01/27/17 09:15 1 TAB Lab Laboratory Tests Test 01/26/17 17:37 01/26/17 19:45 01/26/17 20:15 01/27/17 00:30 Glucose (Fingerstick) 193 mg/dL (70-99) 97 mg/dL (70-99) Troponin I Quantitative < 0.017 ng/mL (0.000-0.055) < 0.017 ng/mL (0.000-0.055) White Blood Count 8.0 x10^3/uL (4.0-11.0) Red Blood Count 3.23 x10^6/uL (3.50-5.40) Hemoglobin 9.7 g/dL (12.0-15.5) Hematocrit 29.8 % (36.0-47.0) Mean Corpuscular Volume 92 fL (79-100) Mean Corpuscular Hemoglobin 30 pg (25-35) Mean Corpuscular Hemoglobin Concent 33 g/dL (31-37) Red Cell Distribution Width 15.4 % (11.5-14.5) Platelet Count 274 x10^3/uL (140-400) Neutrophils (%) (Auto) 60 % (31-73) Lymphocytes (%) (Auto) 26 % (24-48) Monocytes (%) (Auto) 10 % (0-9) Eosinophils (%) (Auto) 4 % (0-3) Basophils (%) (Auto) 1 % (0-3) Neutrophils # (Auto) 4.8 x10^3uL (1.8-7.7) Lymphocytes # (Auto) 2.0 x10^3/uL (1.0-4.8) Monocytes # (Auto) 0.8 x10^3/uL (0.0-1.1) Eosinophils # (Auto) 0.3 x10^3/uL (0.0-0.7) Basophils # (Auto) 0.1 x10^3/uL (0.0-0.2) Sodium Level 143 mmol/L (136-145) Potassium Level 4.7 mmol/L (3.5-5.1) Chloride Level 107 mmol/L (98-107) Carbon Dioxide Level 24 mmol/L (21-32) Anion Gap 12 (6-14) Blood Urea Nitrogen 47 mg/dL (7-20) Creatinine 2.9 mg/dL (0.6-1.0) Estimated GFR (Cockcroft-Gault) 15.9 Glucose Level 154 mg/dL (70-99) Calcium Level 8.6 mg/dL (8.5-10.1) Phosphorus Level 4.5 mg/dL (2.6-4.7) Magnesium Level 1.9 mg/dL (1.8-2.4) Albumin 2.6 g/dL (3.4-5.0) Test 01/27/17 07:40 Glucose (Fingerstick) 177 mg/dL (70-99) TRINA العلي MD Jan 27, 2017 10:02
[2017-01-27 10:49] VITALS: BP 116/60
[2017-01-27] MEDS ORDERED: FUROSEMIDE 40 MG/4 ML VIAL. IVP ONE (13:00)
[2017-01-27 13:21] LABS: PTH INTACT 149 pg/mL (15-65)
[2017-01-27 15:00] VITALS: BP 152/73
--- NOTE | 2017-01-27 15:09 | PDOC ---
PROGRESS NOTES Chief Complaint Chief Complaint hyperkalemia acute renal failure on CKD 4 UTI prior renal stents, some urinary obstruction, not compliant with self cath Dm2, not compliant with diet, History of Present Illness History of Present Illness 24 hour urine to finish tonight plan paniagua removal and bladder scan after that DC when cleared by renal, w/u renal failure Vitals Vitals Vital Signs Date Time Temp Pulse Resp B/P (MAP) Pulse Ox O2 Delivery O2 Flow Rate FiO2 01/27/17 10:49 98.1 88 18 116/60 (78) 100 Room Air 98.1 Physical Exam General: Alert, Oriented X3, Cooperative, No acute distress Lungs: Clear Abdomen: Normal bowel sounds, Soft Extremities: No clubbing, No edema, Normal pulses Skin: No rashes, No significant lesion Labs LABS Laboratory Tests Test 01/26/17 17:37 01/26/17 19:45 01/26/17 20:15 01/27/17 00:30 Glucose (Fingerstick) 193 mg/dL (70-99) 97 mg/dL (70-99) Troponin I Quantitative < 0.017 ng/mL (0.000-0.055) < 0.017 ng/mL (0.000-0.055) White Blood Count 8.0 x10^3/uL (4.0-11.0) Red Blood Count 3.23 x10^6/uL (3.50-5.40) Hemoglobin 9.7 g/dL (12.0-15.5) Hematocrit 29.8 % (36.0-47.0) Mean Corpuscular Volume 92 fL (79-100) Mean Corpuscular Hemoglobin 30 pg (25-35) Mean Corpuscular Hemoglobin Concent 33 g/dL (31-37) Red Cell Distribution Width 15.4 % (11.5-14.5) Platelet Count 274 x10^3/uL (140-400) Neutrophils (%) (Auto) 60 % (31-73) Lymphocytes (%) (Auto) 26 % (24-48) Monocytes (%) (Auto) 10 % (0-9) Eosinophils (%) (Auto) 4 % (0-3) Basophils (%) (Auto) 1 % (0-3) Neutrophils # (Auto) 4.8 x10^3uL (1.8-7.7) Lymphocytes # (Auto) 2.0 x10^3/uL (1.0-4.8) Monocytes # (Auto) 0.8 x10^3/uL (0.0-1.1) Eosinophils # (Auto) 0.3 x10^3/uL (0.0-0.7) Basophils # (Auto) 0.1 x10^3/uL (0.0-0.2) Sodium Level 143 mmol/L (136-145) Potassium Level 4.7 mmol/L (3.5-5.1) Chloride Level 107 mmol/L (98-107) Carbon Dioxide Level 24 mmol/L (21-32) Anion Gap 12 (6-14) Blood Urea Nitrogen 47 mg/dL (7-20) Creatinine 2.9 mg/dL (0.6-1.0) Estimated GFR (Non- 17 (>59) Estimated GFR (Cockcroft-Gault) 15.9 Glucose Level 154 mg/dL (70-99) Calcium Level 8.6 mg/dL (8.5-10.1) Phosphorus Level 4.5 mg/dL (2.6-4.7) Magnesium Level 1.9 mg/dL (1.8-2.4) Albumin 2.6 g/dL (3.4-5.0) EGFR 20 (>59) PTH (Intact) Specimen Description Comment (.) Parathyroid Hormone (Intact) 149 pg/mL (15-65) Calcium (PTH Intact) 8.3 mg/dL (8.7-10.3) Creatinine (PTH Intact) 2.67 mg/dL (0.57-1.00) Phosphorus (PTH Intact) 4.5 mg/dL (2.5-4.5) Test 01/27/17 07:40 01/27/17 11:15 Glucose (Fingerstick) 177 mg/dL (70-99) 208 mg/dL (70-99) Review of Systems Review of Systems no n.vd.' eating well no new complaint or event Assessment and Plan Assessmemt and Plan plan to try to DC in AM Problems: Comment Review of Relevant I have reviewed the following items anastasiya (where applicable) has been applied. Labs Laboratory Tests Test 01/26/17 08:45 01/26/17 09:10 5/31/17 17:37 01/26/17 19:45 Urine Collection Type U cath Urine Color Yellow Urine Clarity Turbid Urine pH 7.0 Urine Specific [place] 1.010 Urine Protein 100 mg/dL (NEG-TRACE) Urine Glucose (UA) Negative mg/dL (NEG) Urine Ketones (Stick) Negative mg/dL (NEG) Urine Blood Large (NEG) Urine Nitrite Negative (NEG) Urine Bilirubin Negative (NEG) Urine Urobilinogen Dipstick 0.2 mg/dL (0.2 mg/dL) Urine Leukocyte Esterase Large (NEG) Urine RBC 20-40 /HPF (0-2) Urine WBC Tntc /HPF (0-4) Urine Squamous Epithelial Cells Few /LPF Urine Bacteria 0 /HPF (0-FEW) White Blood Count 7.4 x10^3/uL (4.0-11.0) Red Blood Count 3.63 x10^6/uL (3.50-5.40) Hemoglobin 10.8 g/dL (12.0-15.5) Hematocrit 33.1 % (36.0-47.0) Mean Corpuscular Volume 91 fL (79-100) Mean Corpuscular Hemoglobin 30 pg (25-35) Mean Corpuscular Hemoglobin Concent 33 g/dL (31-37) Red Cell Distribution Width 15.5 % (11.5-14.5) Platelet Count 273 x10^3/uL (140-400) Neutrophils (%) (Auto) 60 % (31-73) Lymphocytes (%) (Auto) 27 % (24-48) Monocytes (%) (Auto) 9 % (0-9) Eosinophils (%) (Auto) 3 % (0-3) Basophils (%) (Auto) 1 % (0-3) Neutrophils # (Auto) 4.5 x10^3uL (1.8-7.7) Lymphocytes # (Auto) 2.0 x10^3/uL (1.0-4.8) Monocytes # (Auto) 0.7 x10^3/uL (0.0-1.1) Eosinophils # (Auto) 0.2 x10^3/uL (0.0-0.7) Basophils # (Auto) 0.1 x10^3/uL (0.0-0.2) Prothrombin Time 13.4 SEC (11.7-14.0) Prothromb Time International Ratio 1.1 (0.8-1.1) Sodium Level 143 mmol/L (136-145) Potassium Level 5.4 mmol/L (3.5-5.1) Chloride Level 106 mmol/L (98-107) Carbon Dioxide Level 25 mmol/L (21-32) Anion Gap 12 (6-14) Blood Urea Nitrogen 52 mg/dL (7-20) Creatinine 3.3 mg/dL (0.6-1.0) Estimated GFR (Cockcroft-Gault) 13.7 Glucose Level 154 mg/dL (70-99) Calcium Level 9.4 mg/dL (8.5-10.1) Magnesium Level 2.0 mg/dL (1.8-2.4) Total Bilirubin 0.4 mg/dL (0.2-1.0) Direct Bilirubin 0.2 mg/dL (0.0-0.2) Aspartate Amino Transf (AST/SGOT) 19 U/L (15-37) Alanine Aminotransferase (ALT/SGPT) 16 U/L (14-59) Alkaline Phosphatase 150 U/L (46-116) Creatine Kinase 41 U/L (26-192) Creatine Kinase MB (Mass) < 0.5 ng/mL (0.0-3.6) Creatine Kinase MB Relative Index % (0-4) Troponin I Quantitative < 0.017 ng/mL (0.000-0.055) < 0.017 ng/mL (0.000-0.055) IM-Aaz-K-Type Natriuretic Peptide 750 pg/mL (0-124) Total Protein 8.5 g/dL (6.4-8.2) Albumin 2.9 g/dL (3.4-5.0) Lipase 102 U/L (73-393) Thyroid Stimulating Hormone (TSH) 5.286 uIU/mL (0.358-3.74) Glucose (Fingerstick) 193 mg/dL (70-99) Test 01/26/17 20:15 01/27/17 00:30 01/27/17 07:40 01/27/17 11:15 Glucose (Fingerstick) 97 mg/dL (70-99) 177 mg/dL (70-99) 208 mg/dL (70-99) White Blood Count 8.0 x10^3/uL (4.0-11.0) Red Blood Count 3.23 x10^6/uL (3.50-5.40) Hemoglobin 9.7 g/dL (12.0-15.5) Hematocrit 29.8 % (36.0-47.0) Mean Corpuscular Volume 92 fL (79-100) Mean Corpuscular Hemoglobin 30 pg (25-35) Mean Corpuscular Hemoglobin Concent 33 g/dL (31-37) Red Cell Distribution Width 15.4 % (11.5-14.5) Platelet Count 274 x10^3/uL (140-400) Neutrophils (%) (Auto) 60 % (31-73) Lymphocytes (%) (Auto) 26 % (24-48) Monocytes (%) (Auto) 10 % (0-9) Eosinophils (%) (Auto) 4 % (0-3) Basophils (%) (Auto) 1 % (0-3) Neutrophils # (Auto) 4.8 x10^3uL (1.8-7.7) Lymphocytes # (Auto) 2.0 x10^3/uL (1.0-4.8) Monocytes # (Auto) 0.8 x10^3/uL (0.0-1.1) Eosinophils # (Auto) 0.3 x10^3/uL (0.0-0.7) Basophils # (Auto) 0.1 x10^3/uL (0.0-0.2) Sodium Level 143 mmol/L (136-145) Potassium Level 4.7 mmol/L (3.5-5.1) Chloride Level 107 mmol/L (98-107) Carbon Dioxide Level 24 mmol/L (21-32) Anion Gap 12 (6-14) Blood Urea Nitrogen 47 mg/dL (7-20) Creatinine 2.9 mg/dL (0.6-1.0) Estimated GFR (Non- 17 (>59) Estimated GFR (Cockcroft-Gault) 15.9 Glucose Level 154 mg/dL (70-99) Calcium Level 8.6 mg/dL (8.5-10.1) Phosphorus Level 4.5 mg/dL (2.6-4.7) Magnesium Level 1.9 mg/dL (1.8-2.4) Troponin I Quantitative < 0.017 ng/mL (0.000-0.055) Albumin 2.6 g/dL (3.4-5.0) EGFR 20 (>59) PTH (Intact) Specimen Description Comment (.) Parathyroid Hormone (Intact) 149 pg/mL (15-65) Calcium (PTH Intact) 8.3 mg/dL (8.7-10.3) Creatinine (PTH Intact) 2.67 mg/dL (0.57-1.00) Phosphorus (PTH Intact) 4.5 mg/dL (2.5-4.5) Laboratory Tests Test 01/26/17 17:37 01/26/17 19:45 01/26/17 20:15 01/27/17 00:30 Glucose (Fingerstick) 193 mg/dL (70-99) 97 mg/dL (70-99) Troponin I Quantitative < 0.017 ng/mL (0.000-0.055) < 0.017 ng/mL (0.000-0.055) White Blood Count 8.0 x10^3/uL (4.0-11.0) Red Blood Count 3.23 x10^6/uL (3.50-5.40) Hemoglobin 9.7 g/dL (12.0-15.5) Hematocrit 29.8 % (36.0-47.0) Mean Corpuscular Volume 92 fL (79-100) Mean Corpuscular Hemoglobin 30 pg (25-35) Mean Corpuscular Hemoglobin Concent 33 g/dL (31-37) Red Cell Distribution Width 15.4 % (11.5-14.5) Platelet Count 274 x10^3/uL (140-400) Neutrophils (%) (Auto) 60 % (31-73) Lymphocytes (%) (Auto) 26 % (24-48) Monocytes (%) (Auto) 10 % (0-9) Eosinophils (%) (Auto) 4 % (0-3) Basophils (%) (Auto) 1 % (0-3) Neutrophils # (Auto) 4.8 x10^3uL (1.8-7.7) Lymphocytes # (Auto) 2.0 x10^3/uL (1.0-4.8) Monocytes # (Auto) 0.8 x10^3/uL (0.0-1.1) Eosinophils # (Auto) 0.3 x10^3/uL (0.0-0.7) Basophils # (Auto) 0.1 x10^3/uL (0.0-0.2) Sodium Level 143 mmol/L (136-145) Potassium Level 4.7 mmol/L (3.5-5.1) Chloride Level 107 mmol/L (98-107) Carbon Dioxide Level 24 mmol/L (21-32) Anion Gap 12 (6-14) Blood Urea Nitrogen 47 mg/dL (7-20) Creatinine 2.9 mg/dL (0.6-1.0) Estimated GFR (Non- 17 (>59) Estimated GFR (Cockcroft-Gault) 15.9 Glucose Level 154 mg/dL (70-99) Calcium Level 8.6 mg/dL (8.5-10.1) Phosphorus Level 4.5 mg/dL (2.6-4.7) Magnesium Level 1.9 mg/dL (1.8-2.4) Albumin 2.6 g/dL (3.4-5.0) EGFR 20 (>59) PTH (Intact) Specimen Description Comment (.) Parathyroid Hormone (Intact) 149 pg/mL (15-65) Calcium (PTH Intact) 8.3 mg/dL (8.7-10.3) Creatinine (PTH Intact) 2.67 mg/dL (0.57-1.00) Phosphorus (PTH Intact) 4.5 mg/dL (2.5-4.5) Test 01/27/17 07:40 01/27/17 11:15 Glucose (Fingerstick) 177 mg/dL (70-99) 208 mg/dL (70-99) Microbiology 01/26/17 Urine Culture - Preliminary, Resulted 01/26/17 Urine Culture Result 1 (SIL) - Preliminary, Resulted Medications Current Medications Sodium Chloride 1,000 ml @ 1,000 mls/hr 1X ONCE IV Last administered on t 11:18; Start 01/26/17 at 11:15; Stop 01/26/17 at 12:14; Status DC Ondansetron HCl (Zofran) 4 mg PRN Q8HRS PRN IV NAUSEA/VOMITING; Start 01/26/17 at 12:30; Stop 01/27/17 at 12:29; Status DC Ceftriaxone Sodium 50 ml @ 100 mls/hr 1X ONCE IV Last administered on 12:56; Start 01/26/17 at 12:30; Stop 01/26/17 at 12:59; Status DC Ceftriaxone Sodium 1 gm/ Sodium Chloride 50 ml @ 100 mls/hr Q24H IV Last administered on 01/27/17 12:30; Start 01/27/17 at 12:30 Ascorbic Acid (Vitamin C) 500 mg DAILY08 PO Last administered on 01/27/17 09:14 ; Start 01/27/17 at 08:00; Stop 01/27/17 at 09:56; Status DC Aspirin (Ecotrin) 81 mg DAILY08 PO Last administered on 01/27/17 09:13; Start 01/27/17 at 08:00 Carvedilol (Coreg) 3.125 mg DAILY PO Last administered on 01/27/17 09:15; Start 01/27/17 at 09:00 Simvastatin (Zocor) 40 mg QHS PO Last administered on 01/26/17 20:39; Start at 21:00 Sodium Bicarbonate (Sodium Bicarbonate) 1,300 mg BID PO Last administered on 09:16; Start 01/26/17 at 21:00 Ferrous Sulfate (Feosol) 325 mg DAILYWBKFT PO Last administered on 01/27/17 09: 14; Start 01/27/17 at 08:00 Insulin Aspart (NovoLOG) 13 units TIDAC SQ Last administered on 01/27/17 12:39 ; Start 01/26/17 at 16:30 Insulin Detemir (Levemir) 23 units QHS SQ ; Start 01/26/17 at 21:00 Vitamin B Complex (Folbic Tablet) 1 tab DAILY PO Last administered on 01/27/17 09:15; Start 01/26/17 at 15:30; Stop 01/27/17 at 09:56; Status DC Magnesium Sulfate/ Dextrose 50 ml @ 25 mls/hr PRN DAILY PRN IV for Mag < 1.7 on am labs; Start 01/26/17 at 16:30 Sodium Polystyrene Sulfonate (Kayexalate) 30 gm 1X ONCE PO Last administered on 01/26/17 17:19; Start 01/26/17 at 16:30; Stop 01/26/17 at 16:31; Status DC Sodium Chloride 1,000 ml @ 75 mls/hr [id number] IV Last administered on 01/27/17t 05:21; Start 01/26/17 at 16:30; Stop 01/27/17 at 09:56; Status DC Vitamin B Complex/ Vitamin C (Funmi-Hannah) 1 tab DAILY PO ; Start 01/28/17 at 09:00 Furosemide (Lasix) 40 mg 1X ONCE IVP ; Start 01/27/17 at 13:00; Stop 01/27/17 at 13:01; Status DC Active Scripts Active Macrobid 100 Mg Capsule (Nitrofurantoin Monohyd/M-Cryst) 100 Mg Capsule 1 Cap PO BID Reported Ferrous Sulfate 140 Mg Tablet.er 140 Mg PO DAILY Lantus Solostar (Insulin Glargine,Hum.rec.anlog) 100 Unit/1 Ml Insuln.pen 23 Unit SQ QHS Last dose given: 08-20-14 (;00 p.m. Next dose due: evangelist Novolog (Insulin Aspart) 100 Unit/1 Ml Cartridge 13 Unit SQ TIDAC Last dose given: 11:30 a.m. Next dose due: With next meal Vitamin C (Ascorbic Acid) 500 Mg Tablet 500 Mg PO DAILY08 Simvastatin 40 Mg Tablet 1 Tab PO QHS Last dose given: 08-20-14 9:00 p.m. Next dose due: evangelist Carvedilol 3.125 Mg Tablet 1 Tab PO DAILY Last dose given: 9:00 a.m. Next dose due: 08-22-14 9:00 a.m. Sodium Bicarbonate 650 Mg Tablet 2 Tab PO BID Last dose given: 9:00 a.m. Next dose due: tonjulien Aspir 81 (Aspirin) 81 Mg Tablet. 1 Tab PO DAILY08 Vitals/I & O Vital Sign - Last 24 Hours 01/26/17 01/26/17 01/26/17 01/26/17 16:13 16:43 19:00 20:00 Temp 97.8 98.2 97.8 98.2 Pulse 85 91 Resp 20 B/P (MAP) 140/76 (97) 118/60 (79) Pulse Ox 98 90 O2 Delivery Room Air Room Air Room Air 5/3101/27/17 01/27/17 01/27/17 23:00 02:49 07:00 09:15 Temp 97.9 98.2 97.9 97.9 98.2 97.9 Pulse 98 91 86 86 Resp 20 20 18 B/P (MAP) 104/67 (79) 108/61 (77) 129/67 (87) 129/67 Pulse Ox 97 95 96 O2 Delivery Room Air Room Air Room Air 01/27/17 10:49 Temp 98.1 98.1 Pulse 88 Resp 18 B/P (MAP) 116/60 (78) Pulse Ox 100 O2 Delivery Room Air Intake and Output 01/26/17 01/26/17 01/27/17 15:00 23:00 07:00 Intake Total 300 ml 1050 ml Output Total 850 ml Balance 300 ml 200 ml ADAN THAKUR MD Jan 27, 2017 15:08
--- NOTE | 2017-01-27 16:43 | RAD ---
Nuclear medicine Lasix renogram History: Ureteral stents, hydronephrosis, acute kidney injury, stage III chronic kidney disease. Comparison: None. Technique: Patient was administered 10.0 mCi MAG3 and a renogram was performed with planar imaging obtained of the abdomen and pelvis in the posterior projection. 40 mg of Lasix was administered at 15 minutes. Findings: There is symmetric perfusion of both the kidneys. There is evidence of delayed concentration and excretion of radiopharmaceutical by the kidneys. Left kidney demonstrates time to maximum of 20 minutes. Right kidney demonstrates time to maximum of 20 minutes. There is accumulation of radiopharmaceutical involving both renal collecting systems which demonstrate some effect of Lasix. There is accumulation of radiopharmaceutical in the urinary bladder. The findings are compatible with dilated bilateral renal collecting systems, but no complete obstruction is identified. Split function is 39% left, 61% right. Impression: 1. Both kidneys demonstrate dilated renal collecting systems, but there is no evidence of complete renal obstruction. 2. Both kidneys demonstrate delayed concentration, compatible with nonspecific medical renal disease.
[2017-01-27 19:00] VITALS: BP 106/58
[2017-01-27] MEDS: SIMVASTATIN 40 MG TABLET. PO SCH (20:29)
[2017-01-27] MEDS: INSULIN DETEMIR 300 UNITS/3 ML INSULN.PEN. SQ SCH (20:35)
[2017-01-27 22:10] LABS: HEP A IGM ABDY Negative (Negative); HEP B SURFACE ABDY Non Reactive (.)
[2017-01-27 23:00] VITALS: BP 93/54
[2017-01-28 03:00] VITALS: BP 106/69
[2017-01-28 06:11] LABS: ALBUMIN 2.5 g/dL (3.4-5.0); CALCIUM 8.5 mg/dL (8.5-10.1); CREATININE 2.5 mg/dL (0.6-1.0); GFR 18.8; PHOSPHORUS 4.3 mg/dL (2.6-4.7); POTASSIUM 4.3 mmol/L (3.5-5.1)
[2017-01-28 07:00] VITALS: BP 125/67
[2017-01-28] MEDS: INSULIN ASPART 300 UNITS/3 ML INSULN.PEN SQ SCH ×2 (07:30→12:06)
[2017-01-28] MEDS ORDERED: FOLIC/VIT B COMP W-C (RENAL) TABLET. PO SCH (09:00)
[2017-01-28] MEDS: ASPIRIN ENTERIC COATED 81 MG TABLET.DR. PO SCH (10:04)
[2017-01-28] MEDS: FERROUS SULFATE 325 MG TABLET. PO SCH (10:05)
[2017-01-28] MEDS: CARVEDILOL 3.125 MG TABLET. PO SCH (10:06)
[2017-01-28] MEDS: SODIUM BICARBONATE 650 MG TABLET. PO SCH (10:06)
[2017-01-28 11:19] VITALS: BP 136/66
--- NOTE | 2017-01-28 11:52 | PDOC ---
SUBJECTIVE ROS TWYLA/ CKD III doign and feeling better CVS: no Orthopnea, no CP RESP: no SOB, no CARABALLO GI: no Nausea, no Vomiting : no Dysuria, no Urgency OBJECTIVE Vital Signs Vital Signs Date Time Temp Pulse Resp B/P (MAP) Pulse Ox O2 Delivery O2 Flow Rate FiO2 01/28/17 11:19 97.5 91 18 136/66 (89) 96 Room Air 97.5 I & 0 Intake and Output 01/28/17 07:00 Intake Total 2960 ml Output Total 3500 ml Balance -540 ml Intake Oral 1960 ml IV Total 1000 ml Output Urine Total 3500 ml PHYSICAL EXAM Physical Exam General Appearance: Awake Alert Oriented x 3 In no Distress Eyes: VIsion Unchanged Conjunctiva Normal EN: No EN Drainage Mucous Memb. moist Neck: no JVD min JVP Supple no Thyromegaly CVS: S1 S2 + Murmur No Gallop No Rub no Edema Resp: no Rales no Rhonchi no Acc. Muscle use GI: BAS +ve NO Bruit Non Tender Non Distended : no CVA tenderness; no Suprapubic Tenderness Assessment & Plan ? TWYAL due to VMN, suspect non-compliance with self cath and poor PO intake - now better CKD IV - No Uremic s/s : she is reluctant at this time to consider HD . She thought she had a UTI; Cx NGTD Nehpritic Urine - ? due to Ch Cystitis; encouraged pt to drink a dequate amt of fluids (~ 2L a day) Anemia: may need Epogen if hgb < 10. Transfuse as needed. HTN: Current BP meds reviewed. See orders for changes. Ch Hydronephrosis with ? Atonic Bladder - Pt suppossedly self caths - Creat improved with Indwelling paniagua and that leads me to suspect that she MAY NOT BE Compliant with self - cath regimen at home Discussed Plan of Care and prognosis etc. at length with pt and edson COMMENT/RELEVANT DATA Meds Current Medications Medications (Trade) Dose Ordered Sig/Claudette Start Time Stop Time Status Last Admin Dose Admin Ascorbic Acid (Vitamin C) 500 mg DAILY08 01/27/17 08:00 01/27/17 09:56 DC 01/27/17 09:14 500 MG Aspirin (Ecotrin) 81 mg DAILY08 01/27/17 08:00 01/28/17 10:04 81 MG Carvedilol (Coreg) 3.125 mg DAILY 01/27/17 09:00 01/28/17 10:06 3.125 MG Ceftriaxone Sodium 1 gm/ Sodium Chloride 50 ml @ 100 mls/hr Q24H 01/27/17 12:30 01/27/17 12:30 100 MLS/HR Ceftriaxone Sodium 50 ml @ 100 mls/hr 1X ONCE 01/26/17 12:30 01/26/17 12:59 DC 01/26/17 12:56 100 MLS/HR Ferrous Sulfate (Feosol) 325 mg [id number] 01/27/17 08:00 01/28/17 10:05 325 MG Furosemide (Lasix) 40 mg 1X ONCE 01/27/17 13:00 01/27/17 13:01 DC Insulin Aspart (NovoLOG) 13 units TIDAC 01/26/17 16:30 01/27/17 17:01 13 UNITS Insulin Detemir (Levemir) 23 units QHS 01/26/17 21:00 01/27/17 20:35 23 UNITS Magnesium Sulfate/ Dextrose 50 ml @ 25 mls/hr PRN DAILY PRN 01/26/17 16:30 Ondansetron HCl (Zofran) 4 mg PRN Q8HRS PRN 01/26/17 12:30 01/27/17 12:29 DC Simvastatin (Zocor) 40 mg QHS 01/26/17 21:00 01/27/17 20:29 40 MG Sodium Polystyrene Sulfonate (Kayexalate) 30 gm 1X ONCE 01/26/17 16:30 01/26/17 16:31 DC 01/26/17 17:19 30 GM Sodium Bicarbonate (Sodium Bicarbonate) 1,300 mg BID 01/26/17 21:00 01/28/17 10:06 1,300 MG Sodium Chloride 1,000 ml @ 75 mls/hr [id number] 01/26/17 16:30 01/27/17 09:56 DC 01/27/17 05:21 75 MLS/HR Vitamin B Complex (Folbic Tablet) 1 tab DAILY 01/26/17 15:30 01/27/17 09:56 DC 01/27/17 09:15 1 TAB Vitamin B Complex/ Vitamin C (Funmi-Hannah) 1 tab DAILY 01/28/17 09:00 01/28/17 10:06 1 TAB Lab Laboratory Tests Test 01/27/17 16:17 01/27/17 20:33 01/28/17 05:10 01/28/17 07:15 Glucose (Fingerstick) 178 mg/dL (70-99) 243 mg/dL (70-99) 176 mg/dL (70-99) Sodium Level 144 mmol/L (136-145) Potassium Level 4.3 mmol/L (3.5-5.1) Chloride Level 108 mmol/L (98-107) Carbon Dioxide Level 26 mmol/L (21-32) Anion Gap 10 (6-14) Blood Urea Nitrogen 39 mg/dL (7-20) Creatinine 2.5 mg/dL (0.6-1.0) Estimated GFR (Cockcroft-Gault) 18.8 Glucose Level 156 mg/dL (70-99) Calcium Level 8.5 mg/dL (8.5-10.1) Phosphorus Level 4.3 mg/dL (2.6-4.7) Magnesium Level 1.8 mg/dL (1.8-2.4) Albumin 2.5 g/dL (3.4-5.0) TRINA العلي MD Jan 28, 2017 11:52
--- NOTE | 2017-01-28 12:20 | PDOC3 ---
Discharge Summary [facility] Date of Admission: January 26, 2017 Discharge Date: Jan 28, 2017 Admitting Diagnosis acute renal failure on CKD 4 no UTI prior renal stents, some urinary obstruction, not compliant with self cath Dm2, not compliant with diet, Problems: CONSULTS renal, uro Brief Hospital Course Ms. Beach is a 76 oldF, self cath for bladder dysfunction once every 2 days, CKD4 , comes for abd pain and weakness, was found TWYLA with Cr 3.3, BACK to baseline at 2.5 with paniagua and ivf. ucx neg. no intervention done. dc home , cont self cath, fu with dr. Ritchie as outpt. dc time 35min General: Alert, Oriented X3, Cooperative, No acute distress Lungs: Clear Abdomen: Normal bowel sounds, Soft Extremities: No clubbing, No edema, Normal pulses Skin: No rashes, No significant lesion Patient History: Family history: Diabetes mellitus (situation) G8 SISTER G8 SISTER G8 SISTER G8 SISTER G8 SISTER No Family History of: Cancer confirmed (situation) Family history: Allergy Family history: Alzheimer's disease (situation) Family history: Angina (situation) Family history: Asthma Family history: Autoimmune disease (situation) Family history: Blood disorder (situation) Family history: Breast disease (situation) Family history: Cardiomyopathy (situation) Family history: Cardiovascular disease (situation) Family history: Crohn's disease (situation) Family history: Depression (situation) Family history: Epilepsy (situation) Family history: Gallbladder disease (situation) Family history: Gastrointestinal disease (situation) Family history: Hemophilia (situation) Family history: Hypertension (situation) Family history: Obesity (situation) Family history: Schizophrenia (situation) Family history: Sickle cell trait (situation) Family history: Suicide (situation) Family history: neoplasm - trachea/bronchus/lung (situation) Family history: neoplasm - urinary organ (situation) Family history: neoplasm of skin (situation) Malignant hyperthermia Sleep apnea Problems: Disposition home CONDITION AT DISCHARGE: Improved Diet renal Scheduled Ascorbic Acid (Vitamin C), 500 MG PO DAILY08, (Reported) Aspirin (Aspir 81), 1 TAB PO DAILY08, (Reported) Carvedilol (Carvedilol), 1 TAB PO DAILY, (Reported) Ferrous Sulfate (Ferrous Sulfate), 140 MG PO DAILY, (Reported) Insulin Aspart (Novolog), 13 UNIT SQ TIDAC, (Reported) Insulin Glargine,Hum.rec.anlog (Lantus Solostar), 23 UNIT SQ QHS, (Reported) Simvastatin (Simvastatin), 1 TAB PO QHS, (Reported) Sodium Bicarbonate (Sodium Bicarbonate), 2 TAB PO BID, (Reported) Discontinued Medications Nitrofurantoin Monohyd/M-Cryst (Macrobid 100 Mg Capsule), 1 CAP PO BID Follow Up renal in [address]REETER MD Jan 28, 2017 12:20
[2017-01-28 15:28] LABS: TOTAL SERUM CREATININE 2.61 mg/dL (0.57-1.00); TOTAL URINE CREATININE 24.9 mg/dL (Not Estab.)
== END 2017-01-28 12:36 | disposition home or self-care (01) | DRG 683 ==
LOC: ER 08:25 → OBSVTOIN 11:41 → 5 NORTH 11:41
PROVIDERS: ADMIT Internal Medicine; ATTEND Internal Medicine
DX: N17.9 Acute kidney failure, unspecified (principal); I12.0 Hypertensive chronic kidney disease with stage 5 chronic kidney disease or end stage renal disease; E11.22 Type 2 diabetes mellitus with diabetic chronic kidney disease; E78.00 Pure hypercholesterolemia, unspecified; I25.10 Atherosclerotic heart disease of native coronary artery without angina pectoris; E87.5 Hyperkalemia; N18.5 Chronic kidney disease, stage 5; D64.9 Anemia, unspecified; E78.5 Hyperlipidemia, unspecified; N31.2 Flaccid neuropathic bladder, not elsewhere classified; R32 Unspecified urinary incontinence; N13.9 Obstructive and reflux uropathy, unspecified; N13.30 Unspecified hydronephrosis; Z81.8 Family history of other mental and behavioral disorders; Z82.0 Family history of epilepsy and other diseases of the nervous system; Z82.49 Family history of ischemic heart disease and other diseases of the circulatory system; Z82.5 Family history of asthma and other chronic lower respiratory diseases; Z83.3 Family history of diabetes mellitus; Z95.1 Presence of aortocoronary bypass graft; Z91.040 Latex allergy status; Z80.59 Family history of malignant neoplasm of other urinary tract organ; Z80.2 Family history of malignant neoplasm of other respiratory and intrathoracic organs; Z79.82 Long term (current) use of aspirin; Z79.4 Long term (current) use of insulin; Z79.899 Other long term (current) drug therapy; Z87.440 Personal history of urinary (tract) infections
CPT/HCPCS: 36415; 71010; 78708; 80048; 80069; 80074; 80076; 81001; 82553; 82575; 82962; 83690; 83735; 83880; 83970; 84156; 84443; 84484; 85027; 85610; 86704; 86706; 87086; 87340; 87341; 93005; 96374; 96375; A9562; J0690; J0696; J1815; J7030

== ENCOUNTER 2017-02-08 08:59 | Inpatient (IN) | payer MEDICARE ==
[~2017-02-08] VITALS: Ht 162.6 cm; Wt 68.5 kg
[2017-02-08 09:41] LABS: BASO # 0.1 x10^3/uL (0.0-0.2); BASO % 1 % (0-3); EOS % 3 % (0-3); HEMATOCRIT 30.5 % (36.0-47.0); HEMOGLOBIN 10.1 g/dL (12.0-15.5); LYMPH # 1.8 x10^3/uL (1.0-4.8); LYMPH % 26 % (24-48); MEAN CORPUSCULAR HEMOGLOBIN 30 pg (25-35); MEAN CORPUSCULAR HGB CONC 33 g/dL (31-37); MEAN CORPUSCULAR VOLUME 91 fL (79-100); MONO % 10 % (0-9); NEUT % 61 % (31-73); PLATELET COUNT 270 x10^3/uL (140-400); RED BLOOD COUNT 3.35 x10^6/uL (3.50-5.40); RED CELL DISTRIBUTION WIDTH 15.5 % (11.5-14.5); WHITE BLOOD COUNT 7.1 x10^3/uL (4.0-11.0)
[2017-02-08] MEDS ORDERED: IV NORMAL SALINE 500ML BAG 500 ML IV ONE (09:45)
[2017-02-08 09:47] LABS: CALCIUM 9.2 mg/dL (8.5-10.1); CREATININE 3.8 mg/dL (0.6-1.0); GFR 11.6; POTASSIUM 4.9 mmol/L (3.5-5.1)
--- NOTE | 2017-02-08 09:51 | EKG ---
[facility] [address] [place] [address] Test Date: 2017-02-08 Test Time: 09:08:31 Pat Name: BRYANT LOCKHART Department: Room: Gender: F Melter Caster: : 1940 Requested By: ESTELA NAVA Order Number: [id number] Reading MD: Shine Zapata Measurements Intervals [place] Rate: 94 P: -45 UT: 140 QRS: -9 QRSD: 90 T: 79 QT: 354 QTc: 448 Interpretive Statements SINUS RHYTHM POSSIBLE PRIOR INFERIOR INFARCT PVC Electronically Signed On 02-08-2017 16:56:26 CDT by Shine Zapata
[2017-02-08 09:52] LABS: INR 1.1 (0.8-1.1); PROTHROMBIN TIME PATIENT 13.6 SEC (11.7-14.0)
[2017-02-08 09:53] LABS: ALBUMIN 2.9 g/dL (3.4-5.0); ALBUMIN/GLOBULIN RATIO 0.5 (1.0-1.7); MAGNESIUM 2.3 mg/dL (1.8-2.4); TOTAL BILIRUBIN 0.4 mg/dL (0.2-1.0); TOTAL PROTEIN 8.5 g/dL (6.4-8.2)
--- NOTE | 2017-02-08 09:55 | PHYS DOC ---
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 She stated she started having the general weakness yesterday, feeling "run down ". Pt denies any focal weakness, headache, fever, chest pain, sob, cough, abdominal pain, dsyuria, diarrhea or other systemic symptoms. Pt recently admitted for UTI and TWYLA. Pt self-caths 2 times per day for urinary retention/ incontinence. Review of Systems Review of Systems Constitutional: Denies fever or chills [] Eyes: Denies change in visual acuity, redness, or eye pain [] HENT: Denies nasal congestion or sore throat [] Respiratory: Denies cough or shortness of breath [] Cardiovascular:Denies chest pain GI: Denies abdominal pain, nausea, vomiting, bloody stools or diarrhea [] : Denies dysuria or hematuria [] Musculoskeletal: Denies back pain or joint pain [] Integument: Denies rash or skin lesions [] Neurologic: Denies headache, focal weakness or sensory changes [] Current Medications Current Medications Current Medications Medications (Trade) Dose Ordered Sig/Claudette Start Time Stop Time Status Last Admin Dose Admin Ceftriaxone Sodium 50 ml @ 100 mls/hr 1X ONCE 02/08/17 11:00 02/08/17 11:29 DC 02/08/17 11:20 100 MLS/HR Sodium Chloride 1,000 ml @ 1,000 mls/hr 1X ONCE 02/08/17 11:00 02/08/17 11:59 DC 02/08/17 11:22 1,000 MLS/HR Allergies Allergies Allergies Coded Allergies Type Severity Reaction Last Updated Verified latex Allergy Intermediate Rash 12/22/16 Yes Physical Exam Physical Exam Constitutional: Well developed, well nourished, no acute distress, non-toxic appearance. [] HENT: Normocephalic, atraumatic, bilateral external ears normal, oropharynx slightly dry, no oral exudates, nose normal. [] Eyes: PERRLA, EOMI, conjunctiva normal, no discharge. [] Neck: Normal range of motion, no tenderness, supple, no stridor. [] Cardiovascular:Heart rate regular rhythm, no murmur [] Lungs & Thorax: Bilateral breath sounds clear to auscultation [] Abdomen: Bowel sounds normal, soft, no tenderness, no masses, no pulsatile masses. [] Skin: Warm, dry, no erythema, no rash. [] Back: No tenderness, no CVA tenderness. [] Extremities: No tenderness, no cyanosis, no clubbing, ROM intact, no edema. [] Neurologic: Alert and oriented X 3, normal motor function, normal sensory function, no focal deficits noted. [] Psychologic: Affect normal, judgement normal, mood normal. [] Current Patient Data Vital Signs Vital Signs Date Time Temp Pulse Resp B/P (MAP) Pulse Ox O2 Delivery O2 Flow Rate FiO2 02/08/17 11:06 76 18 139/69 (92) 98 Room Air 02/08/17 09:05 97.9 97.9 Lab Values Laboratory Tests Test 02/08/17 09:30 02/08/17 09:45 White Blood Count 7.1 x10^3/uL (4.0-11.0) Red Blood Count 3.35 x10^6/uL (3.50-5.40) L Hemoglobin 10.1 g/dL (12.0-15.5) L Hematocrit 30.5 % (36.0-47.0) L Mean Corpuscular Volume 91 fL (79-100) Mean Corpuscular Hemoglobin 30 pg (25-35) Mean Corpuscular Hemoglobin Concent 33 g/dL (31-37) Red Cell Distribution Width 15.5 % (11.5-14.5) H Platelet Count 270 x10^3/uL (140-400) Neutrophils (%) (Auto) 61 % (31-73) Lymphocytes (%) (Auto) 26 % (24-48) Monocytes (%) (Auto) 10 % (0-9) H Eosinophils (%) (Auto) 3 % (0-3) Basophils (%) (Auto) 1 % (0-3) Neutrophils # (Auto) 4.4 x10^3uL (1.8-7.7) Lymphocytes # (Auto) 1.8 x10^3/uL (1.0-4.8) Monocytes # (Auto) 0.7 x10^3/uL (0.0-1.1) Eosinophils # (Auto) 0.2 x10^3/uL (0.0-0.7) Basophils # (Auto) 0.1 x10^3/uL (0.0-0.2) Prothrombin Time 13.6 SEC (11.7-14.0) Prothrombin Time INR 1.1 (0.8-1.1) Sodium Level 140 mmol/L (136-145) Potassium Level 4.9 mmol/L (3.5-5.1) Chloride Level 104 mmol/L (98-107) Carbon Dioxide Level 25 mmol/L (21-32) Anion Gap 11 (6-14) Blood Urea Nitrogen 64 mg/dL (7-20) H Creatinine 3.8 mg/dL (0.6-1.0) H Estimated GFR (Cockcroft-Gault) 11.6 BUN/Creatinine Ratio 17 (6-20) Glucose Level 168 mg/dL (70-99) H Calcium Level 9.2 mg/dL (8.5-10.1) Magnesium Level 2.3 mg/dL (1.8-2.4) Total Bilirubin 0.4 mg/dL (0.2-1.0) Aspartate Amino Transferase (AST) 22 U/L (15-37) Alanine Aminotransferase (ALT) 23 U/L (14-59) Alkaline Phosphatase 146 U/L (46-116) H Troponin I Quantitative < 0.017 ng/mL (0.000-0.055) Total Protein 8.5 g/dL (6.4-8.2) H Albumin 2.9 g/dL (3.4-5.0) L Albumin/Globulin Ratio 0.5 (1.0-1.7) L Urine Collection Type U cath Urine Color Yellow Urine Clarity Turbid Urine pH 6.5 Urine Specific Scenic 1.010 Urine Protein 100 mg/dL (NEG-TRACE) Urine Glucose (UA) Negative mg/dL (NEG) Urine Ketones (Stick) Negative mg/dL (NEG) Urine Blood Large (NEG) Urine Nitrite Negative (NEG) Urine Bilirubin Negative (NEG) Urine Urobilinogen Dipstick 0.2 mg/dL (0.2 mg/dL) Urine Leukocyte Esterase Large (NEG) Urine RBC Fobs /HPF (0-2) Urine WBC Tntc /HPF (0-4) Urine Squamous Epithelial Cells Few /LPF Urine Bacteria Fobs /HPF (0-FEW) Laboratory Tests 02/08/17 09:30 Laboratory Tests 02/08/17 09:30 EKG EKG 94 bpm, sinus, normal axis, normal intervals, no ST elevation or depression, nonischemic T waves, interpreted by sc Radiology/Procedures Radiology/Procedures [] Course & Med Decision Making Course & Med Decision Making Pertinent Labs and Imaging studies reviewed. (See chart for details) pt with significant UTI, worsening renal function from just earlier this month. Pt given IV lasix, IV fluids, spoke with Dr. Escalante, pt accepted to hospitalist service for ongoing management by Dr. Angel. Dragon Disclaimer Dragon Disclaimer This electronic medical record was generated, in whole or in part, using a voice recognition dictation system. Departure Departure Impression: Primary Impression: TWYLA (acute kidney injury) Additional Impression: UTI (urinary tract infection) Disposition: ADMITTED INPATIENT Admitting Physician: Christian Angel Condition: STABLE Referrals: LISA CALHOUN (PCP) Problem Qualifiers ESTELA NAVA MD Feb 08, 2017 09:55
[2017-02-08 10:05] LABS: BILIRUBIN,URINE NEGATIVE (NEG); GLUCOSE,URINE NEGATIVE (NEG); NITRITE,URINE NEGATIVE (NEG); PH,URINE 6.5; PROTEIN,URINE 100 mg/dL (NEG-TRACE); UROBILINOGEN,URINE 0.2 mg/dL (0.2 mg/dL)
--- NOTE | 2017-02-08 10:08 | RAD ---
AP portable chest radiograph 02/08/2017 Clinical History: Generalized weakness since yesterday. An AP portable erect digital radiograph of the chest was obtained. Comparison study is dated 01/26/2017. The patient is status post CABG procedure. The cardiac silhouette is normal in size. Atherosclerotic calcification of the thoracic aorta is seen. The thoracic aorta is mildly tortuous. No acute pulmonary infiltrate is noted. No pleural effusion or pneumothorax is seen. Degenerative changes are seen involving the thoracic spine and both shoulders. Impression: No acute abnormality is seen.
[2017-02-08 10:37] LABS: BACTERIA,URINE FOBS /HPF (0-FEW); WBC,URINE TNTC /HPF (0-4)
[2017-02-08 10:38] LABS: SQUAMOUS EPITHELIAL CELL,UR FEW /LPF
[2017-02-08 10:39] LABS: RBC,URINE FOBS /HPF (0-2)
[2017-02-08] MEDS ORDERED: IV NORMAL SALINE 1000ML BAG 1,000 ML IV ONE (11:00)
[2017-02-08 12:20] VITALS: BP 152/70
[2017-02-08 12:43] VITALS: BP 152/70
--- NOTE | 2017-02-08 14:39 | ACF ---
Admission Forms Criteria RENAL FAILURE, ACUTE Clinical Indications for Admission to Inpatient Care ( Place 'X' for any and all applicable criteria): Admission is indicated for ALL (if I & II) or III of the following [A](2)(3)(4)( 5)(6)(7): [ ]I. Acute renal failure as indicated by ANY ONE of the following: [ ]a) A 3-fold rise in serum creatinine from baseline [ ]b) Serum creatinine greater than 4 mg/dL (354 micromoles/L) with an acute rise greater than 0.5 mg/dL (44.2 micromoles/L) [ ]c) Reduction of more than 75% in estimated glomerular filtration rate from baseline [ ]d) Estimated glomerular filtration rate less than 35 mL/min/1.73m2 (0.59mL/sec/1.73m2)in a child up to 18 years of age [ ]e) Anuria indicated by ALL of the following: [ ]i) Adequate volume status [ ]ii) Cessation of urine output indicated by ANY ONE of the following: [ ]1) Urine output less than 0.3 mL/kg/hr for 24 hours [ ]2) Anuria (urine output less than 0.1 mL/kg/ hr) for 12 hours [ ] II. Renal failure cannot be managed in an outpatient setting or observational care setting as indicating by ANY ONE of the following: [ ]a) Altered mental status that is severe or persistent [ ]b) Volume overload or Respiratory distress (eg, clinically significant pulmonary edema) that is severe or persistent [ ]c) Cardiac arrhythmias of immediate concern [ ]d) Hemodynamic instability [ ]e) Clinically significant electrolyte abnormality that requires inpatient care (eg, hyperkalemia with severe ECG findings)[B] [ ]f) Clinically significant metabolic abnormality (eg, acidosis) that is severe or persistent [ ]g) Acute treatment of renal failure (eg, renal replacement therapy) not feasible or appropriate in observational care setting [ ]h) Clinical situation too unstable or uncertain (eg, inadequate urine output, ongoing decline in renal function, etiology unclear) [ ]i) Necessary support and caregiver ability to comply with outpatient treatment cannot be arranged in observation care timeframe (eg, within 24 hours) [ ]j) Other significant finding or clinical condition judged not to be within scope of observation care [X]III.General contraindications and/or Inappropriate clinical situations for Observational Care in patients with Acute Renal Failure, when ANY ONE of the following is required: [X]a) Prediction of prolongation of LOS based on ANY ONE of the following may be considered as a contraindication for observational care 2, 3, 4, 5, 6, 7, 8 , 9, 10, 11 [X]i) Age > 65 yrs. [ ]ii) Patient arriving by ambulance [ ]iii) Patient with high acuity [ ]iv) Patient requiring vital sign monitoring [ ]v) Patient on IV medication [ ]b) Systolic blood pressures 180mmHg 3,12 [ ]c) Patient with altered mental status including delirium and other alteration of consciousness, (3) [ ]d) Patient whose discharge disposition will be to a senior care home or rehabilitation home should not be managed in Emergency Department Observation Unit. CMS rule requires 3 days hospital stay before such placement.3,13 [ ]e) Patient with failure to thrive due to broad array of etiologies 3, 16,17 [ ]f) Inability to ambulate 3,14 Extended stay beyond goal length of stay may be needed for(13) [ ]a) Continuing uremic complications [ ]b) Care for comorbidities [ ]c) acute renal failure [ ]d) Need for dialysis The original [employer] content created by [employer] has been revised. The portions of the content which have been revised are identified through the use of italic text or in bold, and [facility] has neither reviewed nor approved the modified material. All other unmodified content is copyright [employer]. Please see references footnoted in the original [facility] edition 2016 Admission Criteria Met?: Yes YAIR SNOW Feb 08, 2017 14:39
[2017-02-08 14:45] VITALS: BP 123/60
--- NOTE | 2017-02-08 15:51 | PDOC1 ---
History and Physical Past Medical History Cardiovascular: CAD, HTN GI: Other Heme/Onc: No pertinent hx Psych: No pertinent hx Rheumatologic: No pertinent hx Infectious disease: No pertinent hx Renal/: Chronic renal insuff, UTI, Other Endocrine: Diabetes Past Surgical History Past Surgical History: Cystoscopy, Other Family History Family History: No Significant, Other Social History ALCOHOL: none Drugs: None Current Problem List Problem List Problems Medical Problems: (1) UTI (lower urinary tract infection) Status: Acute Current Medications Current Medications Current Medications Medications (Trade) Dose Ordered Sig/Claudette Start Time Stop Time Status Last Admin Dose Admin Ceftriaxone Sodium 50 ml @ 100 mls/hr 1X ONCE 02/08/17 11:00 02/08/17 11:29 DC 02/08/17 11:20 100 MLS/HR Sodium Chloride 1,000 ml @ 1,000 mls/hr 1X ONCE 02/08/17 11:00 02/08/17 11:59 DC 02/08/17 11:22 1,000 MLS/HR Allergies Allergies Allergies Coded Allergies Type Severity Reaction Last Updated Verified latex Allergy Intermediate Rash 12/22/16 Yes ROS Review of System CONSTITUTIONAL: No fever or chills, decreased appetite. EYES: No recent changes SKIN: No rash or itching CARDIOVASCULAR: No chest pain, syncope, palpitations, or edema RESPIRATORY: No SOB or cough GASTROINTESTINAL: No nausea, vomiting or abdominal pain NEUROLOGICAL: No headaches or weakness ENDOCRINE: No cold or heat intolerance GENITOURINARY: No urgency or frequency of urination MUSCULOSKELETAL: No back pain or joint pain LYMPHATICS: No enlarged lymph nodes PSYCHIATRIC: No anxiety or depression Physical Exam Physical Exam GEN.: No apparent distress. Alert and oriented. HEENT: Head is normocephalic, atraumatic NECK: Supple. no jvd LUNGS: Clear to auscultation. HEART: RRR, S1, S2 present. Peripheral pulses intact ABDOMEN: Soft, nontender. Positive bowel sounds. EXTREMITIES: Without any cyanosis. NEUROLOGIC: Normal speech, normal tone PSYCHIATRIC: Normal affect, normal mood. SKIN: No visible ulcerations Vitals Vitals Vital Signs Date Time Temp Pulse Resp B/P (MAP) Pulse Ox O2 Delivery O2 Flow Rate FiO2 02/08/17 14:45 97.5 78 19 123/60 (81) 98 Room Air 97.5 Labs Labs Laboratory Tests Test 02/08/17 09:30 02/08/17 09:45 02/08/17 12:26 White Blood Count 7.1 x10^3/uL (4.0-11.0) Red Blood Count 3.35 x10^6/uL (3.50-5.40) Hemoglobin 10.1 g/dL (12.0-15.5) Hematocrit 30.5 % (36.0-47.0) Mean Corpuscular Volume 91 fL (79-100) Mean Corpuscular Hemoglobin 30 pg (25-35) Mean Corpuscular Hemoglobin Concent 33 g/dL (31-37) Red Cell Distribution Width 15.5 % (11.5-14.5) Platelet Count 270 x10^3/uL (140-400) Neutrophils (%) (Auto) 61 % (31-73) Lymphocytes (%) (Auto) 26 % (24-48) Monocytes (%) (Auto) 10 % (0-9) Eosinophils (%) (Auto) 3 % (0-3) Basophils (%) (Auto) 1 % (0-3) Neutrophils # (Auto) 4.4 x10^3uL (1.8-7.7) Lymphocytes # (Auto) 1.8 x10^3/uL (1.0-4.8) Monocytes # (Auto) 0.7 x10^3/uL (0.0-1.1) Eosinophils # (Auto) 0.2 x10^3/uL (0.0-0.7) Basophils # (Auto) 0.1 x10^3/uL (0.0-0.2) Prothrombin Time 13.6 SEC (11.7-14.0) Prothromb Time International Ratio 1.1 (0.8-1.1) Sodium Level 140 mmol/L (136-145) Potassium Level 4.9 mmol/L (3.5-5.1) Chloride Level 104 mmol/L (98-107) Carbon Dioxide Level 25 mmol/L (21-32) Anion Gap 11 (6-14) Blood Urea Nitrogen 64 mg/dL (7-20) Creatinine 3.8 mg/dL (0.6-1.0) Estimated GFR (Cockcroft-Gault) 11.6 BUN/Creatinine Ratio 17 (6-20) Glucose Level 168 mg/dL (70-99) Calcium Level 9.2 mg/dL (8.5-10.1) Magnesium Level 2.3 mg/dL (1.8-2.4) Total Bilirubin 0.4 mg/dL (0.2-1.0) Aspartate Amino Transf (AST/SGOT) 22 U/L (15-37) Alanine Aminotransferase (ALT/SGPT) 23 U/L (14-59) Alkaline Phosphatase 146 U/L (46-116) Troponin I Quantitative < 0.017 ng/mL (0.000-0.055) Total Protein 8.5 g/dL (6.4-8.2) Albumin 2.9 g/dL (3.4-5.0) Albumin/Globulin Ratio 0.5 (1.0-1.7) Urine Collection Type U cath Urine Color Yellow Urine Clarity Turbid Urine pH 6.5 Urine Specific [place] 1.010 Urine Protein 100 mg/dL (NEG-TRACE) Urine Glucose (UA) Negative mg/dL (NEG) Urine Ketones (Stick) Negative mg/dL (NEG) Urine Blood Large (NEG) Urine Nitrite Negative (NEG) Urine Bilirubin Negative (NEG) Urine Urobilinogen Dipstick 0.2 mg/dL (0.2 mg/dL) Urine Leukocyte Esterase Large (NEG) Urine RBC Fobs /HPF (0-2) Urine WBC Tntc /HPF (0-4) Urine Squamous Epithelial Cells Few /LPF Urine Bacteria Fobs /HPF (0-FEW) Glucose (Fingerstick) 138 mg/dL (70-99) Laboratory Tests Test 02/08/17 09:30 02/08/17 09:45 02/08/17 12:26 White Blood Count 7.1 x10^3/uL (4.0-11.0) Red Blood Count 3.35 x10^6/uL (3.50-5.40) Hemoglobin 10.1 g/dL (12.0-15.5) Hematocrit 30.5 % (36.0-47.0) Mean Corpuscular Volume 91 fL (79-100) Mean Corpuscular Hemoglobin 30 pg (25-35) Mean Corpuscular Hemoglobin Concent 33 g/dL (31-37) Red Cell Distribution Width 15.5 % (11.5-14.5) Platelet Count 270 x10^3/uL (140-400) Neutrophils (%) (Auto) 61 % (31-73) Lymphocytes (%) (Auto) 26 % (24-48) Monocytes (%) (Auto) 10 % (0-9) Eosinophils (%) (Auto) 3 % (0-3) Basophils (%) (Auto) 1 % (0-3) Neutrophils # (Auto) 4.4 x10^3uL (1.8-7.7) Lymphocytes # (Auto) 1.8 x10^3/uL (1.0-4.8) Monocytes # (Auto) 0.7 x10^3/uL (0.0-1.1) Eosinophils # (Auto) 0.2 x10^3/uL (0.0-0.7) Basophils # (Auto) 0.1 x10^3/uL (0.0-0.2) Prothrombin Time 13.6 SEC (11.7-14.0) Prothromb Time International Ratio 1.1 (0.8-1.1) Sodium Level 140 mmol/L (136-145) Potassium Level 4.9 mmol/L (3.5-5.1) Chloride Level 104 mmol/L (98-107) Carbon Dioxide Level 25 mmol/L (21-32) Anion Gap 11 (6-14) Blood Urea Nitrogen 64 mg/dL (7-20) Creatinine 3.8 mg/dL (0.6-1.0) Estimated GFR (Cockcroft-Gault) 11.6 BUN/Creatinine Ratio 17 (6-20) Glucose Level 168 mg/dL (70-99) Calcium Level 9.2 mg/dL (8.5-10.1) Magnesium Level 2.3 mg/dL (1.8-2.4) Total Bilirubin 0.4 mg/dL (0.2-1.0) Aspartate Amino Transf (AST/SGOT) 22 U/L (15-37) Alanine Aminotransferase (ALT/SGPT) 23 U/L (14-59) Alkaline Phosphatase 146 U/L (46-116) Troponin I Quantitative < 0.017 ng/mL (0.000-0.055) Total Protein 8.5 g/dL (6.4-8.2) Albumin 2.9 g/dL (3.4-5.0) Albumin/Globulin Ratio 0.5 (1.0-1.7) Urine Collection Type U cath Urine Color Yellow Urine Clarity Turbid Urine pH 6.5 Urine Specific [place] 1.010 Urine Protein 100 mg/dL (NEG-TRACE) Urine Glucose (UA) Negative mg/dL (NEG) Urine Ketones (Stick) Negative mg/dL (NEG) Urine Blood Large (NEG) Urine Nitrite Negative (NEG) Urine Bilirubin Negative (NEG) Urine Urobilinogen Dipstick 0.2 mg/dL (0.2 mg/dL) Urine Leukocyte Esterase Large (NEG) Urine RBC Fobs /HPF (0-2) Urine WBC Tntc /HPF (0-4) Urine Squamous Epithelial Cells Few /LPF Urine Bacteria Fobs /HPF (0-FEW) Glucose (Fingerstick) 138 mg/dL (70-99) VTE Prophylaxis Ordered VTE Prophylaxis Devices: No VTE Pharmacological Prophylaxi: Yes MUNIR PADILLA MD Feb 08, 2017 15:51
[2017-02-08] MEDS ORDERED: DEXTROSE 50% 25 GM / 50ML DISP.SYRIN. IV PRN (16:00)
[2017-02-08] MEDS ORDERED: ONDANSETRON PF 4 MG/2 ML VIAL. IV PRN (16:00)
[2017-02-08] MEDS ORDERED: ALBUTEROL SULFATE 2.5 MG/3 ML NEBU. NEB PRN (16:00)
[2017-02-08] MEDS ORDERED: ACETAMINOPHEN 325 MG TABLET. PO PRN (16:00)
[2017-02-08] MEDS ORDERED: HYDROcodone/APAP 5/325MG 1 TAB TABLET PO PRN (16:00)
[2017-02-08] MEDS ORDERED: hydrALAZINE 20 MG/ML VIAL. IVP PRN (16:00)
[2017-02-08] MEDS: INSULIN ASPART 300 UNITS/3 ML INSULN.PEN SQ SCH ×2 (17:22→17:24)
[2017-02-08] MEDS: IV NORMAL SALINE 1000ML BAG 1,000 ML IV PRN (17:24)
[2017-02-08 19:52] VITALS: BP 126/66
[2017-02-08] MEDS: INSULIN DETEMIR 300 UNITS/3 ML INSULN.PEN. SQ SCH (21:00)
[2017-02-08] MEDS: SIMVASTATIN 40 MG TABLET. PO SCH (22:00)
[2017-02-08] MEDS: SODIUM BICARBONATE 650 MG TABLET. PO SCH (22:01)
--- NOTE | 2017-02-08 22:54 | HP ---
ADMIT DATE: 02/08/2017 CHIEF COMPLAINT: Loss of appetite. HISTORY OF THE PRESENT ILLNESS: This is a 76-year-old female patient with prior history of CKD 3, urinary stents, and some frequent UTIs, who presented to the ER with complaints of vague symptoms such as loss of appetite and generalized weakness, feeling running down. The patient states that her symptoms are typical in nature. Every time she gets urinary tract infection, she gets nonspecific symptoms. She denies any fever or chills. She was recently admitted to the hospital for urinary tract infection. At that time, she was evaluated by Nephrology. However, the patient declined to have dialysis. At this time, the patient's symptoms are slightly worse with worsening real functions, and she received IV antibiotics in the ER, and symptoms slightly improved. The patient states she is doing self-catheterization frequently. Daughter is helping to do that. 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 PERSONAL HISTORY: No smoking, no alcohol, no drug abuse. FAMILY HISTORY: Unknown to the patient. REVIEW OF SYSTEMS: Please see my electronic H and P. PHYSICAL EXAMINATION: Please see my electronic H and P. ALLERGIES: LATEX. LABORATORY FINDINGS: Chemistry: Sodium 140, potassium 4.9, chloride is 104, carbon dioxide 25, gap is 11, BUN is 64, creatinine 3.8, glucose is 168, and albumin is 2.9. Coagulation Panel: INR is 1.1. Hematology: WBC 7.1, hemoglobin 10.1, and MCV is 91. Urine culture, old records revealed no bacteria seen. Chest x-ray today with no acute abnormalities seen. Old records of renal scan showed both kidneys demonstrated dilated renal collecting systems with no hydronephrosis or evidence of complete renal obstructions. ASSESSMENT AND PLAN: 1. TWYLA ON Chronic kidney disease 3. 2. Suspected urinary tract infections. 3. Hyperglycemia, mild. 4. Coronary artery disease. 5. Frequent urinary tract infections. 6. Hypertension. 7. Hyperlipidemia. PLAN: The patient has been placed on IV Rocephin. We will continue IV hydration at 75 mL per hour and monitor renal functions in the a.m. Consult Nephrology for possible hemodialysis. Continue IV Rocephin daily. Urinalysis and culture and sensitivity. The patient had a workup in the past for hemodialysis. Sliding scale insulin. Home medications were reviewed and reconciled. Labs reviewed in our labs. CBC and BMP ordered for tomorrow. P.r.n. hydralazine for high blood pressure, systolic more than 170. MUNIR PADILLA MD DR: SHAUN/anthony JOB#: [id number] / [id number] CHELSEAD
[2017-02-08 23:39] VITALS: BP 131/62
[2017-02-09 03:09] VITALS: BP 122/63
[2017-02-09] MEDS: IV NORMAL SALINE 1000ML BAG 1,000 ML IV PRN ×2 (04:15→19:28)
[2017-02-09 06:54] LABS: BASO # 0.1 x10^3/uL (0.0-0.2); BASO % 1 % (0-3); EOS % 4 % (0-3); HEMATOCRIT 28.5 % (36.0-47.0); HEMOGLOBIN 9.6 g/dL (12.0-15.5); LYMPH # 1.6 x10^3/uL (1.0-4.8); LYMPH % 28 % (24-48); MEAN CORPUSCULAR HEMOGLOBIN 31 pg (25-35); MEAN CORPUSCULAR HGB CONC 34 g/dL (31-37); MEAN CORPUSCULAR VOLUME 91 fL (79-100); MONO % 11 % (0-9); NEUT % 57 % (31-73); PLATELET COUNT 218 x10^3/uL (140-400); RED BLOOD COUNT 3.14 x10^6/uL (3.50-5.40); RED CELL DISTRIBUTION WIDTH 15.8 % (11.5-14.5); WHITE BLOOD COUNT 5.8 x10^3/uL (4.0-11.0)
[2017-02-09 07:21] LABS: CALCIUM 8.5 mg/dL (8.5-10.1); CREATININE 2.9 mg/dL (0.6-1.0); GFR 15.9
[2017-02-09 07:50] VITALS: BP 141/67
[2017-02-09] MEDS: FERROUS SULFATE 325 MG TABLET. PO SCH (07:59)
[2017-02-09] MEDS: SODIUM BICARBONATE 650 MG TABLET. PO SCH ×2 (07:59→21:15)
[2017-02-09] MEDS: ASPIRIN ENTERIC COATED 81 MG TABLET.DR. PO SCH (08:01)
[2017-02-09] MEDS: ASCORBIC ACID 500 MG TABLET PO SCH (08:01)
[2017-02-09] MEDS: INSULIN ASPART 300 UNITS/3 ML INSULN.PEN SQ SCH ×6 (08:02→17:21)
[2017-02-09] MEDS ORDERED: CARVEDILOL 3.125 MG TABLET. PO SCH (09:00)
[2017-02-09 10:34] VITALS: BP 143/68
--- NOTE | 2017-02-09 11:43 | PDOC2 ---
CONSULT Date of Consult Date of Consult DATE: 02/09/17 TIME: 11:37 Reason for Consult Reason for Consult: TWYLA Referring Physician Referring Physician: THIS IS A 76 YR OLD ADMITTED WITH DYSURIA. SHE IS NOTED TO HAVE AN UTI. SHE HAS HAD PROBLEMS WITH THIS IN THE PAST. HER CR IS 3.8 ON ADMIT. SHE HAS CKD STAGE 4 WITH BASELINE CR OF 2.5. HX IS ALSO NOTABLE FOR HYPOTONIC BLADDER FOR WHICH SHE HAS BEEN DOING SELF CATH ONCE DAILY IN THE AM. APPETITE HAS BEEN POOR Identification/Chief Complaint Chief Complaint DYSURIA Source Source: Chart review, Patient History of Present Illness Reason for Visit: ABOVE Past Medical History Cardiovascular: CAD, HTN GI: Other Heme/Onc: No pertinent hx Psych: No pertinent hx Rheumatologic: No pertinent hx Infectious disease: No pertinent hx Renal/: Chronic renal insuff, UTI, Other Endocrine: Diabetes Past Surgical History Past Surgical History: Cystoscopy, Other Family History Family History: No Significant, Other Social History ALCOHOL: none Drugs: None Lives: Alone Current Problem List Problem List Problems Medical Problems: (1) UTI (lower urinary tract infection) Status: Acute (2) UTI (urinary tract infection) Status: Acute Current Medications Current Medications Current Medications Sodium Chloride 500 ml @ 500 mls/hr 1X ONCE IV Last administered on 09:48; Start 02/08/17 at 09:45; Stop 02/08/17 at 10:44; Status DC Sodium Chloride 1,000 ml @ 1,000 mls/hr 1X ONCE IV Last administered on 11:22; Start 02/08/17 at 11:00; Stop 02/08/17 at 11:59; Status DC Ceftriaxone Sodium 50 ml @ 100 mls/hr 1X ONCE IV Last administered on 11:20; Start 02/08/17 at 11:00; Stop 02/08/17 at 11:29; Status DC Ascorbic Acid (Vitamin C) 500 mg DAILY08 PO Last administered on 02/09/17 08: 01; Start 02/09/17 at 08:00 Aspirin (Ecotrin) 81 mg DAILY08 PO Last administered on 02/09/17 08:01; Start 02/09/17 at 08:00 Carvedilol (Coreg) 3.125 mg DAILYWBKFT PO Last administered on 02/09/17 08:01 ; Start 02/09/17 at 09:00 Simvastatin (Zocor) 40 mg QHS PO Last administered on 02/08/17 22:00; Start at 21:00 Sodium Bicarbonate (Sodium Bicarbonate) 1,300 mg BID PO Last administered on 07:59; Start 02/08/17 at 21:00 Ferrous Sulfate (Feosol) 325 mg DAILYWBKFT PO Last administered on 02/09/17 07 :59; Start 02/09/17 at 08:00 Insulin Aspart (NovoLOG) 13 units TIDAC SQ Last administered on 02/09/17 08:02 ; Start 02/08/17 at 16:30 Insulin Detemir (Levemir) 23 units QHS SQ ; Start 02/08/17 at 21:00 Ceftriaxone Sodium 1 gm/ Sodium Chloride 50 ml @ 100 mls/hr Q24H IV ; Start at 16:00 Acetaminophen (Tylenol) 325 mg PRN Q6HRS PRN PO MILD PAIN / TEMP; Start at 16:00 Acetaminophen/ Hydrocodone Bitart (Lortab 5/325) 1 tab PRN Q6HRS PRN PO MODERATE TO SEVERE PAIN; Start 02/08/17 at 16:00 Hydralazine HCl (Apresoline) 10 mg PRN Q4HRS PRN IVP ELEVATED BP, SEE COMMENTS ; Start 02/08/17 at 16:00 Ondansetron HCl (Zofran) 4 mg PRN Q8HRS PRN IV NAUSEA/VOMITING; Start 02/08/17 at 16:00 Albuterol Sulfate (Ventolin Neb Soln) 2.5 mg PRN Q4HRS PRN NEB SHORTNESS OF BREATH; Start 02/08/17 at 16:00 Insulin Aspart (NovoLOG) 0-7 UNITS TIDWMEALS SQ Last administered on 02/09/17 08:03; Start 02/08/17 at 17:00 Dextrose (Dextrose 50%-Water Syringe) 12.5 gm PRN Q15MIN PRN IV SEE COMMENTS; Start 02/08/17 at 16:00 Sodium Chloride 1,000 ml @ 75 mls/hr CONT PRN IV . Last administered on 04:15; Start 02/08/17 at 16:15 Active Scripts Active Reported Ferrous Sulfate 140 Mg Tablet.er 140 Mg PO DAILY Lantus Solostar (Insulin Glargine,Hum.rec.anlog) 100 Unit/1 Ml Insuln.pen 23 Unit SQ QHS Last dose given: 08-20-14 (;00 p.m. Next dose due: tonight Novolog (Insulin Aspart) 100 Unit/1 Ml Cartridge 13 Unit SQ TIDAC Last dose given: 11:30 a.m. Next dose due: With next meal Vitamin C (Ascorbic Acid) 500 Mg Tablet 500 Mg PO DAILY08 Simvastatin 40 Mg Tablet 1 Tab PO QHS Last dose given: 08-20-14 9:00 p.m. Next dose due: tonight Carvedilol 3.125 Mg Tablet 1 Tab PO DAILY Last dose given: 9:00 a.m. Next dose due: 08-22-14 9:00 a.m. Sodium Bicarbonate 650 Mg Tablet 2 Tab PO BID Last dose given: 9:00 a.m. Next dose due: tonjulien Aspir 81 (Aspirin) 81 Mg Tablet. 1 Tab PO DAILY08 Allergies Allergies: Coded Allergies: latex (Verified Allergy, Intermediate, Rash, 12/22/16) ROS General: YES: Fatigue, Malaise, Appetite PSYCHOLOGICAL ROS: YES: Anxiety Eyes: Yes Decreased vision HEENT: YES: Heacaches Respiratory: YES: Cough Gastrointestinal: Yes Constipation Genitourinary: YES Dysuria, YES Retention Musculoskeletal: Yes Muscular Weakness Neurological: Yes Weakness Skin: Yes Dry Skin Physical Exam General: Alert, Oriented X3, Cooperative, No acute distress HEENT: Atraumatic, PERRLA Lungs: Clear to auscultation Heart: Regular rate, Normal S1 Abdomen: Normal bowel sounds, Soft, No tenderness Extremities: No clubbing Neuro: Normal speech, Cranial nerves 3-12 NL Psych/Mental Status: Mental status NL, Mood NL MUSCULOSKELETAL: No deformity, No swelling Vitals VITALS Vital Signs Date Time Temp Pulse Resp B/P (MAP) Pulse Ox O2 Delivery O2 Flow Rate FiO2 02/09/17 10:34 97.9 80 16 143/68 (93) 94 Room Air 97.9 Labs Labs Laboratory Tests Test 02/08/17 09:30 02/08/17 09:45 02/08/17 12:26 02/08/17 16:40 White Blood Count 7.1 x10^3/uL (4.0-11.0) Red Blood Count 3.35 x10^6/uL (3.50-5.40) Hemoglobin 10.1 g/dL (12.0-15.5) Hematocrit 30.5 % (36.0-47.0) Mean Corpuscular Volume 91 fL (79-100) Mean Corpuscular Hemoglobin 30 pg (25-35) Mean Corpuscular Hemoglobin Concent 33 g/dL (31-37) Red Cell Distribution Width 15.5 % (11.5-14.5) Platelet Count 270 x10^3/uL (140-400) Neutrophils (%) (Auto) 61 % (31-73) Lymphocytes (%) (Auto) 26 % (24-48) Monocytes (%) (Auto) 10 % (0-9) Eosinophils (%) (Auto) 3 % (0-3) Basophils (%) (Auto) 1 % (0-3) Neutrophils # (Auto) 4.4 x10^3uL (1.8-7.7) Lymphocytes # (Auto) 1.8 x10^3/uL (1.0-4.8) Monocytes # (Auto) 0.7 x10^3/uL (0.0-1.1) Eosinophils # (Auto) 0.2 x10^3/uL (0.0-0.7) Basophils # (Auto) 0.1 x10^3/uL (0.0-0.2) Prothrombin Time 13.6 SEC (11.7-14.0) Prothromb Time International Ratio 1.1 (0.8-1.1) Sodium Level 140 mmol/L (136-145) Potassium Level 4.9 mmol/L (3.5-5.1) Chloride Level 104 mmol/L (98-107) Carbon Dioxide Level 25 mmol/L (21-32) Anion Gap 11 (6-14) Blood Urea Nitrogen 64 mg/dL (7-20) Creatinine 3.8 mg/dL (0.6-1.0) Estimated GFR (Cockcroft-Gault) 11.6 BUN/Creatinine Ratio 17 (6-20) Glucose Level 168 mg/dL (70-99) Calcium Level 9.2 mg/dL (8.5-10.1) Magnesium Level 2.3 mg/dL (1.8-2.4) Total Bilirubin 0.4 mg/dL (0.2-1.0) Aspartate Amino Transf (AST/SGOT) 22 U/L (15-37) Alanine Aminotransferase (ALT/SGPT) 23 U/L (14-59) Alkaline Phosphatase 146 U/L (46-116) Troponin I Quantitative < 0.017 ng/mL (0.000-0.055) Total Protein 8.5 g/dL (6.4-8.2) Albumin 2.9 g/dL (3.4-5.0) Albumin/Globulin Ratio 0.5 (1.0-1.7) Urine Collection Type U cath Urine Color Yellow Urine Clarity Turbid Urine pH 6.5 Urine Specific [place] 1.010 Urine Protein 100 mg/dL (NEG-TRACE) Urine Glucose (UA) Negative mg/dL (NEG) Urine Ketones (Stick) Negative mg/dL (NEG) Urine Blood Large (NEG) Urine Nitrite Negative (NEG) Urine Bilirubin Negative (NEG) Urine Urobilinogen Dipstick 0.2 mg/dL (0.2 mg/dL) Urine Leukocyte Esterase Large (NEG) Urine RBC Fobs /HPF (0-2) Urine WBC Tntc /HPF (0-4) Urine Squamous Epithelial Cells Few /LPF Urine Bacteria Fobs /HPF (0-FEW) Glucose (Fingerstick) 138 mg/dL (70-99) 238 mg/dL (70-99) Test 02/08/17 21:04 02/09/17 06:05 02/09/17 07:53 02/09/17 11:31 Glucose (Fingerstick) 97 mg/dL (70-99) 183 mg/dL (70-99) 171 mg/dL (70-99) White Blood Count 5.8 x10^3/uL (4.0-11.0) Red Blood Count 3.14 x10^6/uL (3.50-5.40) Hemoglobin 9.6 g/dL (12.0-15.5) Hematocrit 28.5 % (36.0-47.0) Mean Corpuscular Volume 91 fL (79-100) Mean Corpuscular Hemoglobin 31 pg (25-35) Mean Corpuscular Hemoglobin Concent 34 g/dL (31-37) Red Cell Distribution Width 15.8 % (11.5-14.5) Platelet Count 218 x10^3/uL (140-400) Neutrophils (%) (Auto) 57 % (31-73) Lymphocytes (%) (Auto) 28 % (24-48) Monocytes (%) (Auto) 11 % (0-9) Eosinophils (%) (Auto) 4 % (0-3) Basophils (%) (Auto) 1 % (0-3) Neutrophils # (Auto) 3.3 x10^3uL (1.8-7.7) Lymphocytes # (Auto) 1.6 x10^3/uL (1.0-4.8) Monocytes # (Auto) 0.6 x10^3/uL (0.0-1.1) Eosinophils # (Auto) 0.2 x10^3/uL (0.0-0.7) Basophils # (Auto) 0.1 x10^3/uL (0.0-0.2) Sodium Level 142 mmol/L (136-145) Potassium Level 5.0 mmol/L (3.5-5.1) Chloride Level 109 mmol/L (98-107) Carbon Dioxide Level 24 mmol/L (21-32) Anion Gap 9 (6-14) Blood Urea Nitrogen 48 mg/dL (7-20) Creatinine 2.9 mg/dL (0.6-1.0) Estimated GFR (Cockcroft-Gault) 15.9 Glucose Level 158 mg/dL (70-99) Calcium Level 8.5 mg/dL (8.5-10.1) Laboratory Tests Test 02/08/17 12:26 02/08/17 16:40 02/08/17 21:04 02/09/17 06:05 Glucose (Fingerstick) 138 mg/dL (70-99) 238 mg/dL (70-99) 97 mg/dL (70-99) White Blood Count 5.8 x10^3/uL (4.0-11.0) Red Blood Count 3.14 x10^6/uL (3.50-5.40) Hemoglobin 9.6 g/dL (12.0-15.5) Hematocrit 28.5 % (36.0-47.0) Mean Corpuscular Volume 91 fL (79-100) Mean Corpuscular Hemoglobin 31 pg (25-35) Mean Corpuscular Hemoglobin Concent 34 g/dL (31-37) Red Cell Distribution Width 15.8 % (11.5-14.5) Platelet Count 218 x10^3/uL (140-400) Neutrophils (%) (Auto) 57 % (31-73) Lymphocytes (%) (Auto) 28 % (24-48) Monocytes (%) (Auto) 11 % (0-9) Eosinophils (%) (Auto) 4 % (0-3) Basophils (%) (Auto) 1 % (0-3) Neutrophils # (Auto) 3.3 x10^3uL (1.8-7.7) Lymphocytes # (Auto) 1.6 x10^3/uL (1.0-4.8) Monocytes # (Auto) 0.6 x10^3/uL (0.0-1.1) Eosinophils # (Auto) 0.2 x10^3/uL (0.0-0.7) Basophils # (Auto) 0.1 x10^3/uL (0.0-0.2) Sodium Level 142 mmol/L (136-145) Potassium Level 5.0 mmol/L (3.5-5.1) Chloride Level 109 mmol/L (98-107) Carbon Dioxide Level 24 mmol/L (21-32) Anion Gap 9 (6-14) Blood Urea Nitrogen 48 mg/dL (7-20) Creatinine 2.9 mg/dL (0.6-1.0) Estimated GFR (Cockcroft-Gault) 15.9 Glucose Level 158 mg/dL (70-99) Calcium Level 8.5 mg/dL (8.5-10.1) Test 02/09/17 07:53 02/09/17 11:31 Glucose (Fingerstick) 183 mg/dL (70-99) 171 mg/dL (70-99) Assessment/Plan Assessment/Plan IMP TWYLA CKD STAGE 4 WITH CR OF 2.5 URINARY RETENTION/HYPOTONIC BLADDER URINARY TRACT INFECTION PLAN IVF'S ANTIBIOTICS HAVE ASKED DAUGHTER TO INCREASE FREQUENCY OF SELF CATH TO TWICE DAILY LABS IN AM MELONIE GUAMAN MD Feb 09, 2017 11:43
--- NOTE | 2017-02-09 12:25 | PDOC ---
PROGRESS NOTES Chief Complaint Chief Complaint UTI 1. acute on Chronic kidney disease 4. 2. Freq urinary tract infections. 3. Hyperglycemia, 4. Coronary artery disease. 5. weakness, aquired 6. Hypertension. 7. Hyperlipidemia. History of Present Illness History of Present Illness straight cath to BID urinary incontinence renal following cont IV rocephin Vitals Vitals Vital Signs Date Time Temp Pulse Resp B/P (MAP) Pulse Ox O2 Delivery O2 Flow Rate FiO2 02/09/17 10:34 97.9 80 16 143/68 (93) 94 Room Air 97.9 Physical Exam General: Alert, Oriented X3, Cooperative, No acute distress Heart: Regular rate, Normal S1 Lungs: Clear Abdomen: Normal bowel sounds, Soft, No tenderness Extremities: No clubbing Skin: No rashes Labs LABS Laboratory Tests Test 02/08/17 12:26 02/08/17 16:40 02/08/17 21:04 02/09/17 06:05 Glucose (Fingerstick) 138 mg/dL (70-99) 238 mg/dL (70-99) 97 mg/dL (70-99) White Blood Count 5.8 x10^3/uL (4.0-11.0) Red Blood Count 3.14 x10^6/uL (3.50-5.40) Hemoglobin 9.6 g/dL (12.0-15.5) Hematocrit 28.5 % (36.0-47.0) Mean Corpuscular Volume 91 fL (79-100) Mean Corpuscular Hemoglobin 31 pg (25-35) Mean Corpuscular Hemoglobin Concent 34 g/dL (31-37) Red Cell Distribution Width 15.8 % (11.5-14.5) Platelet Count 218 x10^3/uL (140-400) Neutrophils (%) (Auto) 57 % (31-73) Lymphocytes (%) (Auto) 28 % (24-48) Monocytes (%) (Auto) 11 % (0-9) Eosinophils (%) (Auto) 4 % (0-3) Basophils (%) (Auto) 1 % (0-3) Neutrophils # (Auto) 3.3 x10^3uL (1.8-7.7) Lymphocytes # (Auto) 1.6 x10^3/uL (1.0-4.8) Monocytes # (Auto) 0.6 x10^3/uL (0.0-1.1) Eosinophils # (Auto) 0.2 x10^3/uL (0.0-0.7) Basophils # (Auto) 0.1 x10^3/uL (0.0-0.2) Sodium Level 142 mmol/L (136-145) Potassium Level 5.0 mmol/L (3.5-5.1) Chloride Level 109 mmol/L (98-107) Carbon Dioxide Level 24 mmol/L (21-32) Anion Gap 9 (6-14) Blood Urea Nitrogen 48 mg/dL (7-20) Creatinine 2.9 mg/dL (0.6-1.0) Estimated GFR (Cockcroft-Gault) 15.9 Glucose Level 158 mg/dL (70-99) Calcium Level 8.5 mg/dL (8.5-10.1) Test 02/09/17 07:53 02/09/17 11:31 Glucose (Fingerstick) 183 mg/dL (70-99) 171 mg/dL (70-99) Review of Systems Review of Systems no n.v.d would like to LO lópez. admits discussed Assessment and Plan Assessmemt and Plan Problems Medical Problems: (1) UTI (lower urinary tract infection) Status: Acute (2) UTI (urinary tract infection) Status: Acute Problems: Comment Review of Relevant I have reviewed the following items anastasiya (where applicable) has been applied. Labs Laboratory Tests Test 02/08/17 09:30 02/08/17 09:45 02/08/17 12:26 02/08/17 16:40 White Blood Count 7.1 x10^3/uL (4.0-11.0) Red Blood Count 3.35 x10^6/uL (3.50-5.40) Hemoglobin 10.1 g/dL (12.0-15.5) Hematocrit 30.5 % (36.0-47.0) Mean Corpuscular Volume 91 fL (79-100) Mean Corpuscular Hemoglobin 30 pg (25-35) Mean Corpuscular Hemoglobin Concent 33 g/dL (31-37) Red Cell Distribution Width 15.5 % (11.5-14.5) Platelet Count 270 x10^3/uL (140-400) Neutrophils (%) (Auto) 61 % (31-73) Lymphocytes (%) (Auto) 26 % (24-48) Monocytes (%) (Auto) 10 % (0-9) Eosinophils (%) (Auto) 3 % (0-3) Basophils (%) (Auto) 1 % (0-3) Neutrophils # (Auto) 4.4 x10^3uL (1.8-7.7) Lymphocytes # (Auto) 1.8 x10^3/uL (1.0-4.8) Monocytes # (Auto) 0.7 x10^3/uL (0.0-1.1) Eosinophils # (Auto) 0.2 x10^3/uL (0.0-0.7) Basophils # (Auto) 0.1 x10^3/uL (0.0-0.2) Prothrombin Time 13.6 SEC (11.7-14.0) Prothromb Time International Ratio 1.1 (0.8-1.1) Sodium Level 140 mmol/L (136-145) Potassium Level 4.9 mmol/L (3.5-5.1) Chloride Level 104 mmol/L (98-107) Carbon Dioxide Level 25 mmol/L (21-32) Anion Gap 11 (6-14) Blood Urea Nitrogen 64 mg/dL (7-20) Creatinine 3.8 mg/dL (0.6-1.0) Estimated GFR (Cockcroft-Gault) 11.6 BUN/Creatinine Ratio 17 (6-20) Glucose Level 168 mg/dL (70-99) Calcium Level 9.2 mg/dL (8.5-10.1) Magnesium Level 2.3 mg/dL (1.8-2.4) Total Bilirubin 0.4 mg/dL (0.2-1.0) Aspartate Amino Transf (AST/SGOT) 22 U/L (15-37) Alanine Aminotransferase (ALT/SGPT) 23 U/L (14-59) Alkaline Phosphatase 146 U/L (46-116) Troponin I Quantitative < 0.017 ng/mL (0.000-0.055) Total Protein 8.5 g/dL (6.4-8.2) Albumin 2.9 g/dL (3.4-5.0) Albumin/Globulin Ratio 0.5 (1.0-1.7) Urine Collection Type U cath Urine Color Yellow Urine Clarity Turbid Urine pH 6.5 Urine Specific [place] 1.010 Urine Protein 100 mg/dL (NEG-TRACE) Urine Glucose (UA) Negative mg/dL (NEG) Urine Ketones (Stick) Negative mg/dL (NEG) Urine Blood Large (NEG) Urine Nitrite Negative (NEG) Urine Bilirubin Negative (NEG) Urine Urobilinogen Dipstick 0.2 mg/dL (0.2 mg/dL) Urine Leukocyte Esterase Large (NEG) Urine RBC Fobs /HPF (0-2) Urine WBC Tntc /HPF (0-4) Urine Squamous Epithelial Cells Few /LPF Urine Bacteria Fobs /HPF (0-FEW) Glucose (Fingerstick) 138 mg/dL (70-99) 238 mg/dL (70-99) Test 02/08/17 21:04 02/09/17 06:05 02/09/17 07:53 02/09/17 11:31 Glucose (Fingerstick) 97 mg/dL (70-99) 183 mg/dL (70-99) 171 mg/dL (70-99) White Blood Count 5.8 x10^3/uL (4.0-11.0) Red Blood Count 3.14 x10^6/uL (3.50-5.40) Hemoglobin 9.6 g/dL (12.0-15.5) Hematocrit 28.5 % (36.0-47.0) Mean Corpuscular Volume 91 fL (79-100) Mean Corpuscular Hemoglobin 31 pg (25-35) Mean Corpuscular Hemoglobin Concent 34 g/dL (31-37) Red Cell Distribution Width 15.8 % (11.5-14.5) Platelet Count 218 x10^3/uL (140-400) Neutrophils (%) (Auto) 57 % (31-73) Lymphocytes (%) (Auto) 28 % (24-48) Monocytes (%) (Auto) 11 % (0-9) Eosinophils (%) (Auto) 4 % (0-3) Basophils (%) (Auto) 1 % (0-3) Neutrophils # (Auto) 3.3 x10^3uL (1.8-7.7) Lymphocytes # (Auto) 1.6 x10^3/uL (1.0-4.8) Monocytes # (Auto) 0.6 x10^3/uL (0.0-1.1) Eosinophils # (Auto) 0.2 x10^3/uL (0.0-0.7) Basophils # (Auto) 0.1 x10^3/uL (0.0-0.2) Sodium Level 142 mmol/L (136-145) Potassium Level 5.0 mmol/L (3.5-5.1) Chloride Level 109 mmol/L (98-107) Carbon Dioxide Level 24 mmol/L (21-32) Anion Gap 9 (6-14) Blood Urea Nitrogen 48 mg/dL (7-20) Creatinine 2.9 mg/dL (0.6-1.0) Estimated GFR (Cockcroft-Gault) 15.9 Glucose Level 158 mg/dL (70-99) Calcium Level 8.5 mg/dL (8.5-10.1) Laboratory Tests Test 02/08/17 12:26 02/08/17 16:40 02/08/17 21:04 02/09/17 06:05 Glucose (Fingerstick) 138 mg/dL (70-99) 238 mg/dL (70-99) 97 mg/dL (70-99) White Blood Count 5.8 x10^3/uL (4.0-11.0) Red Blood Count 3.14 x10^6/uL (3.50-5.40) Hemoglobin 9.6 g/dL (12.0-15.5) Hematocrit 28.5 % (36.0-47.0) Mean Corpuscular Volume 91 fL (79-100) Mean Corpuscular Hemoglobin 31 pg (25-35) Mean Corpuscular Hemoglobin Concent 34 g/dL (31-37) Red Cell Distribution Width 15.8 % (11.5-14.5) Platelet Count 218 x10^3/uL (140-400) Neutrophils (%) (Auto) 57 % (31-73) Lymphocytes (%) (Auto) 28 % (24-48) Monocytes (%) (Auto) 11 % (0-9) Eosinophils (%) (Auto) 4 % (0-3) Basophils (%) (Auto) 1 % (0-3) Neutrophils # (Auto) 3.3 x10^3uL (1.8-7.7) Lymphocytes # (Auto) 1.6 x10^3/uL (1.0-4.8) Monocytes # (Auto) 0.6 x10^3/uL (0.0-1.1) Eosinophils # (Auto) 0.2 x10^3/uL (0.0-0.7) Basophils # (Auto) 0.1 x10^3/uL (0.0-0.2) Sodium Level 142 mmol/L (136-145) Potassium Level 5.0 mmol/L (3.5-5.1) Chloride Level 109 mmol/L (98-107) Carbon Dioxide Level 24 mmol/L (21-32) Anion Gap 9 (6-14) Blood Urea Nitrogen 48 mg/dL (7-20) Creatinine 2.9 mg/dL (0.6-1.0) Estimated GFR (Cockcroft-Gault) 15.9 Glucose Level 158 mg/dL (70-99) Calcium Level 8.5 mg/dL (8.5-10.1) Test 02/09/17 07:53 02/09/17 11:31 Glucose (Fingerstick) 183 mg/dL (70-99) 171 mg/dL (70-99) Medications Current Medications Sodium Chloride 500 ml @ 500 mls/hr 1X ONCE IV Last administered on 09:48; Start 02/08/17 at 09:45; Stop 02/08/17 at 10:44; Status DC Sodium Chloride 1,000 ml @ 1,000 mls/hr 1X ONCE IV Last administered on 11:22; Start 02/08/17 at 11:00; Stop 02/08/17 at 11:59; Status DC Ceftriaxone Sodium 50 ml @ 100 mls/hr 1X ONCE IV Last administered on 11:20; Start 02/08/17 at 11:00; Stop 02/08/17 at 11:29; Status DC Ascorbic Acid (Vitamin C) 500 mg DAILY08 PO Last administered on 02/09/17 08: 01; Start 02/09/17 at 08:00 Aspirin (Ecotrin) 81 mg DAILY08 PO Last administered on 02/09/17 08:01; Start 02/09/17 at 08:00 Carvedilol (Coreg) 3.125 mg DAILYWBKFT PO Last administered on 02/09/17 08:01 ; Start 02/09/17 at 09:00 Simvastatin (Zocor) 40 mg QHS PO Last administered on 02/08/17 22:00; Start at 21:00 Sodium Bicarbonate (Sodium Bicarbonate) 1,300 mg BID PO Last administered on 07:59; Start 02/08/17 at 21:00 Ferrous Sulfate (Feosol) 325 mg DAILYWBKFT PO Last administered on 02/09/17 07 :59; Start 02/09/17 at 08:00 Insulin Aspart (NovoLOG) 13 units TIDAC SQ Last administered on 02/09/17 08:02 ; Start 02/08/17 at 16:30 Insulin Detemir (Levemir) 23 units QHS SQ ; Start 02/08/17 at 21:00 Ceftriaxone Sodium 1 gm/ Sodium Chloride 50 ml @ 100 mls/hr Q24H IV ; Start at 16:00 Acetaminophen (Tylenol) 325 mg PRN Q6HRS PRN PO MILD PAIN / TEMP; Start at 16:00 Acetaminophen/ Hydrocodone Bitart (Lortab 5/325) 1 tab PRN Q6HRS PRN PO MODERATE TO SEVERE PAIN; Start 02/08/17 at 16:00 Hydralazine HCl (Apresoline) 10 mg PRN Q4HRS PRN IVP ELEVATED BP, SEE COMMENTS ; Start 02/08/17 at 16:00 Ondansetron HCl (Zofran) 4 mg PRN Q8HRS PRN IV NAUSEA/VOMITING; Start 02/08/17 at 16:00 Albuterol Sulfate (Ventolin Neb Soln) 2.5 mg PRN Q4HRS PRN NEB SHORTNESS OF BREATH; Start 02/08/17 at 16:00 Insulin Aspart (NovoLOG) 0-7 UNITS TIDWMEALS SQ Last administered on 02/09/17 08:03; Start 02/08/17 at 17:00 Dextrose (Dextrose 50%-Water Syringe) 12.5 gm PRN Q15MIN PRN IV SEE COMMENTS; Start 02/08/17 at 16:00 Sodium Chloride 1,000 ml @ 75 mls/hr CONT PRN IV . Last administered on t 04:15; Start 02/08/17 at 16:15 Active Scripts Active Reported Ferrous Sulfate 140 Mg Tablet.er 140 Mg PO DAILY Lantus Solostar (Insulin Glargine,Hum.rec.anlog) 100 Unit/1 Ml Insuln.pen 23 Unit SQ QHS Last dose given: 08-20-14 (;00 p.m. Next dose due: evangelist Novolog (Insulin Aspart) 100 Unit/1 Ml Cartridge 13 Unit SQ TIDAC Last dose given: 11:30 a.m. Next dose due: With next meal Vitamin C (Ascorbic Acid) 500 Mg Tablet 500 Mg PO DAILY08 Simvastatin 40 Mg Tablet 1 Tab PO QHS Last dose given: 08-20-14 9:00 p.m. Next dose due: evangelist Carvedilol 3.125 Mg Tablet 1 Tab PO DAILY Last dose given: 9:00 a.m. Next dose due: 08-22-14 9:00 a.m. Sodium Bicarbonate 650 Mg Tablet 2 Tab PO BID Last dose given: 9:00 a.m. Next dose due: evangelist Aspir 81 (Aspirin) 81 Mg Tablet. 1 Tab PO DAILY08 Vitals/I & O Vital Sign - Last 24 Hours 02/08/17 02/08/17 02/08/17 02/08/17 12:43 13:15 14:45 19:52 Temp 96.4 97.5 97.9 96.4 97.5 97.9 Pulse 76 78 86 Resp 18 19 20 B/P (MAP) 152/70 (97) 123/60 (81) 126/66 (86) Pulse Ox 98 98 98 O2 Delivery Room Air Room Air Room Air Room Air 02/08/17 02/08/17 02/08/17 02/09/17 20:00 22:08 23:39 03:09 Temp 98.1 98.1 98.1 98.1 Pulse 81 86 Resp 20 16 B/P (MAP) 131/62 (85) 122/63 (82) Pulse Ox 95 98 93 O2 Delivery Room Air Room Air Room Air Room Air 02/09/17 02/09/17 02/09/17 02/09/17 07:50 08:00 08:01 10:34 Temp 98.8 97.9 98.8 97.9 Pulse 82 82 80 Resp 18 16 B/P (MAP) 141/67 (91) 141/67 143/68 (93) Pulse Ox 98 94 O2 Delivery Room Air Room Air Room Air Intake and Output 02/08/17 02/08/17 02/09/17 15:00 23:00 07:00 Intake Total 550 ml 620 ml 210 ml Balance 550 ml 620 ml 210 ml ADAN THAKUR MD Feb 09, 2017 12:25
[2017-02-09 14:00] VITALS: BP 128/67
[2017-02-09] MEDS: CARVEDILOL 3.125 MG TABLET. PO SCH (17:21)
[2017-02-09 19:15] VITALS: BP 137/67
[2017-02-09] MEDS: INSULIN DETEMIR 300 UNITS/3 ML INSULN.PEN. SQ SCH (21:00)
[2017-02-09] MEDS: SIMVASTATIN 40 MG TABLET. PO SCH (21:15)
[2017-02-09 23:10] VITALS: BP 115/49
[2017-02-10 02:53] VITALS: BP 141/60
[2017-02-10 05:51] LABS: BASO # 0.1 x10^3/uL (0.0-0.2); BASO % 1 % (0-3); EOS % 4 % (0-3); HEMATOCRIT 28.7 % (36.0-47.0); HEMOGLOBIN 9.5 g/dL (12.0-15.5); LYMPH % 27 % (24-48); MEAN CORPUSCULAR HEMOGLOBIN 30 pg (25-35); MEAN CORPUSCULAR HGB CONC 33 g/dL (31-37); MEAN CORPUSCULAR VOLUME 90 fL (79-100); MONO % 10 % (0-9); NEUT % 58 % (31-73); PLATELET COUNT 225 x10^3/uL (140-400); RED BLOOD COUNT 3.17 x10^6/uL (3.50-5.40); RED CELL DISTRIBUTION WIDTH 15.7 % (11.5-14.5); WHITE BLOOD COUNT 7.3 x10^3/uL (4.0-11.0)
[2017-02-10 06:07] LABS: CALCIUM 8.3 mg/dL (8.5-10.1); CREATININE 2.6 mg/dL (0.6-1.0); POTASSIUM 4.6 mmol/L (3.5-5.1)
[2017-02-10 07:58] VITALS: BP 132/68
[2017-02-10] MEDS: FERROUS SULFATE 325 MG TABLET. PO SCH (08:04)
[2017-02-10] MEDS: ASPIRIN ENTERIC COATED 81 MG TABLET.DR. PO SCH (08:04)
[2017-02-10] MEDS: SODIUM BICARBONATE 650 MG TABLET. PO SCH (08:05)
[2017-02-10] MEDS: ASCORBIC ACID 500 MG TABLET PO SCH (08:05)
[2017-02-10] MEDS: CARVEDILOL 3.125 MG TABLET. PO SCH (08:05)
[2017-02-10] MEDS: INSULIN ASPART 300 UNITS/3 ML INSULN.PEN SQ SCH ×2 (08:11→08:12)
[2017-02-10] MEDS ORDERED: CIPR250T30 PO (10:04)
[2017-02-10 10:50] VITALS: BP 138/64
--- NOTE | 2017-02-10 14:34 | PDOC3 ---
Discharge Summary Visit Information Date of Admission: Feb 08, 2017 Date of Discharge: Feb 10, 2017 Admitting Diagnosis: UTI Final Diagnosis 1. acute on Chronic kidney disease 4. 2. Freq urinary tract infections. 3. Hyperglycemia, 4. Coronary artery disease. 5. weakness, aquired 6. Hypertension. 7. Hyperlipidemia. VitalsProblems Medical Problems: (1) UTI (lower urinary tract infection) Status: Acute (2) UTI (urinary tract infection) Status: Acute Brief Hospital Course Allergies Allergies Coded Allergies Type Severity Reaction Last Updated Verified latex Allergy Intermediate Rash 12/22/16 Yes Vital Signs Vital Signs Date Time Temp Pulse Resp B/P (MAP) Pulse Ox O2 Delivery O2 Flow Rate FiO2 02/10/17 10:50 97.9 82 18 138/64 (88) 95 Room Air 97.9 Lab Results Laboratory Tests Test 02/08/17 16:40 02/08/17 21:04 02/09/17 06:05 02/09/17 07:53 Glucose (Fingerstick) 238 mg/dL (70-99) 97 mg/dL (70-99) 183 mg/dL (70-99) White Blood Count 5.8 x10^3/uL (4.0-11.0) Red Blood Count 3.14 x10^6/uL (3.50-5.40) Hemoglobin 9.6 g/dL (12.0-15.5) Hematocrit 28.5 % (36.0-47.0) Mean Corpuscular Volume 91 fL (79-100) Mean Corpuscular Hemoglobin 31 pg (25-35) Mean Corpuscular Hemoglobin Concent 34 g/dL (31-37) Red Cell Distribution Width 15.8 % (11.5-14.5) Platelet Count 218 x10^3/uL (140-400) Neutrophils (%) (Auto) 57 % (31-73) Lymphocytes (%) (Auto) 28 % (24-48) Monocytes (%) (Auto) 11 % (0-9) Eosinophils (%) (Auto) 4 % (0-3) Basophils (%) (Auto) 1 % (0-3) Neutrophils # (Auto) 3.3 x10^3uL (1.8-7.7) Lymphocytes # (Auto) 1.6 x10^3/uL (1.0-4.8) Monocytes # (Auto) 0.6 x10^3/uL (0.0-1.1) Eosinophils # (Auto) 0.2 x10^3/uL (0.0-0.7) Basophils # (Auto) 0.1 x10^3/uL (0.0-0.2) Sodium Level 142 mmol/L (136-145) Potassium Level 5.0 mmol/L (3.5-5.1) Chloride Level 109 mmol/L (98-107) Carbon Dioxide Level 24 mmol/L (21-32) Anion Gap 9 (6-14) Blood Urea Nitrogen 48 mg/dL (7-20) Creatinine 2.9 mg/dL (0.6-1.0) Estimated GFR (Cockcroft-Gault) 15.9 Glucose Level 158 mg/dL (70-99) Calcium Level 8.5 mg/dL (8.5-10.1) Test 02/09/17 11:31 02/09/17 16:45 02/09/17 20:51 02/10/17 05:05 Glucose (Fingerstick) 171 mg/dL (70-99) 85 mg/dL (70-99) 101 mg/dL (70-99) White Blood Count 7.3 x10^3/uL (4.0-11.0) Red Blood Count 3.17 x10^6/uL (3.50-5.40) Hemoglobin 9.5 g/dL (12.0-15.5) Hematocrit 28.7 % (36.0-47.0) Mean Corpuscular Volume 90 fL (79-100) Mean Corpuscular Hemoglobin 30 pg (25-35) Mean Corpuscular Hemoglobin Concent 33 g/dL (31-37) Red Cell Distribution Width 15.7 % (11.5-14.5) Platelet Count 225 x10^3/uL (140-400) Neutrophils (%) (Auto) 58 % (31-73) Lymphocytes (%) (Auto) 27 % (24-48) Monocytes (%) (Auto) 10 % (0-9) Eosinophils (%) (Auto) 4 % (0-3) Basophils (%) (Auto) 1 % (0-3) Neutrophils # (Auto) 4.3 x10^3uL (1.8-7.7) Lymphocytes # (Auto) 2.0 x10^3/uL (1.0-4.8) Monocytes # (Auto) 0.7 x10^3/uL (0.0-1.1) Eosinophils # (Auto) 0.3 x10^3/uL (0.0-0.7) Basophils # (Auto) 0.1 x10^3/uL (0.0-0.2) Sodium Level 136 mmol/L (136-145) Potassium Level 4.6 mmol/L (3.5-5.1) Chloride Level 105 mmol/L (98-107) Carbon Dioxide Level 23 mmol/L (21-32) Anion Gap 8 (6-14) Blood Urea Nitrogen 40 mg/dL (7-20) Creatinine 2.6 mg/dL (0.6-1.0) Estimated GFR (Cockcroft-Gault) 18.0 Glucose Level 151 mg/dL (70-99) Calcium Level 8.3 mg/dL (8.5-10.1) Test 02/10/17 07:19 Glucose (Fingerstick) 168 mg/dL (70-99) Laboratory Tests Test 02/09/17 16:45 02/09/17 20:51 02/10/17 05:05 02/10/17 07:19 Glucose (Fingerstick) 85 mg/dL (70-99) 101 mg/dL (70-99) 168 mg/dL (70-99) White Blood Count 7.3 x10^3/uL (4.0-11.0) Red Blood Count 3.17 x10^6/uL (3.50-5.40) Hemoglobin 9.5 g/dL (12.0-15.5) Hematocrit 28.7 % (36.0-47.0) Mean Corpuscular Volume 90 fL (79-100) Mean Corpuscular Hemoglobin 30 pg (25-35) Mean Corpuscular Hemoglobin Concent 33 g/dL (31-37) Red Cell Distribution Width 15.7 % (11.5-14.5) Platelet Count 225 x10^3/uL (140-400) Neutrophils (%) (Auto) 58 % (31-73) Lymphocytes (%) (Auto) 27 % (24-48) Monocytes (%) (Auto) 10 % (0-9) Eosinophils (%) (Auto) 4 % (0-3) Basophils (%) (Auto) 1 % (0-3) Neutrophils # (Auto) 4.3 x10^3uL (1.8-7.7) Lymphocytes # (Auto) 2.0 x10^3/uL (1.0-4.8) Monocytes # (Auto) 0.7 x10^3/uL (0.0-1.1) Eosinophils # (Auto) 0.3 x10^3/uL (0.0-0.7) Basophils # (Auto) 0.1 x10^3/uL (0.0-0.2) Sodium Level 136 mmol/L (136-145) Potassium Level 4.6 mmol/L (3.5-5.1) Chloride Level 105 mmol/L (98-107) Carbon Dioxide Level 23 mmol/L (21-32) Anion Gap 8 (6-14) Blood Urea Nitrogen 40 mg/dL (7-20) Creatinine 2.6 mg/dL (0.6-1.0) Estimated GFR (Cockcroft-Gault) 18.0 Glucose Level 151 mg/dL (70-99) Calcium Level 8.3 mg/dL (8.5-10.1) Brief Hospital Course Ms. Beach is a 76 old female patient with prior history of CKD 4, urinary stents, and some frequent UTIs, Admit w./ loss of appetite and generalized weakness UTI, acute on chronci renal faiulre s/p rocephin and IV fluid straight cath to BID urinary incontinence discussedd renal following Discharge Information Condition at Discharge: Improved Follow Up: Weeks Disposition/Orders: D/C to Home Scheduled Ascorbic Acid (Vitamin C), 500 MG PO DAILY08, (Reported) Aspirin (Aspir 81), 1 TAB PO DAILY08, (Reported) Carvedilol (Carvedilol), 1 TAB PO DAILY, (Reported) Ciprofloxacin Hcl (Cipro), 1 TAB PO BID Ferrous Sulfate (Ferrous Sulfate), 140 MG PO DAILY, (Reported) Insulin Aspart (Novolog), 13 UNIT SQ TIDAC, (Reported) Insulin Glargine,Hum.rec.anlog (Lantus Solostar), 23 UNIT SQ QHS, (Reported) Simvastatin (Simvastatin), 1 TAB PO QHS, (Reported) Sodium Bicarbonate (Sodium Bicarbonate), 2 TAB PO BID, (Reported) Patient Instructions Patient Instructions time > 30 min ADAN THAKUR MD Feb 10, 2017 14:34
== END 2017-02-10 11:46 | disposition home or self-care (01) | DRG 689 ==
LOC: ER 08:59 → 6 SOUTH 11:15 → OBSVTOIN 11:15 → 6 SOUTH 12:26
PROVIDERS: ADMIT Internal Medicine; ATTEND Internal Medicine
DX: N39.0 Urinary tract infection, site not specified (principal); N17.0 Acute kidney failure with tubular necrosis; N18.4 Chronic kidney disease, stage 4 (severe); E11.65 Type 2 diabetes mellitus with hyperglycemia; E11.22 Type 2 diabetes mellitus with diabetic chronic kidney disease; E78.00 Pure hypercholesterolemia, unspecified; E78.5 Hyperlipidemia, unspecified; I12.9 Hypertensive chronic kidney disease with stage 1 through stage 4 chronic kidney disease, or unspecified chronic kidney disease; I25.10 Atherosclerotic heart disease of native coronary artery without angina pectoris; N31.2 Flaccid neuropathic bladder, not elsewhere classified; R32 Unspecified urinary incontinence; Z95.1 Presence of aortocoronary bypass graft; Z91.040 Latex allergy status; Z79.899 Other long term (current) drug therapy; Z79.1 Long term (current) use of non-steroidal anti-inflammatories (NSAID)
CPT/HCPCS: 36415; 51701; 71010; 80048; 80053; 81001; 82962; 83735; 84484; 85027; 85610; 93005; 96361; 96365; J0690; J0696; J1815; J7030; J7040; 99285-25

== ENCOUNTER 2017-02-16 12:24 | Emergency (ER) | payer MEDICARE ==
[2017-02-16] MEDS ORDERED: IV NORMAL SALINE 1000ML BAG 1,000 ML IV SCH (13:15)
[2017-02-16 13:35] LABS: BILIRUBIN,URINE NEGATIVE (NEG); GLUCOSE,URINE NEGATIVE (NEG); NITRITE,URINE NEGATIVE (NEG); PROTEIN,URINE 100 mg/dL (NEG-TRACE); UROBILINOGEN,URINE 0.2 mg/dL (0.2 mg/dL)
[2017-02-16 13:48] LABS: BASO # 0.1 x10^3/uL (0.0-0.2); BASO % 1 % (0-3); EOS % 4 % (0-3); HEMATOCRIT 30.7 % (36.0-47.0); HEMOGLOBIN 10.1 g/dL (12.0-15.5); LYMPH # 2.1 x10^3/uL (1.0-4.8); LYMPH % 34 % (24-48); MEAN CORPUSCULAR HEMOGLOBIN 30 pg (25-35); MEAN CORPUSCULAR HGB CONC 33 g/dL (31-37); MEAN CORPUSCULAR VOLUME 92 fL (79-100); MONO % 12 % (0-9); NEUT % 48 % (31-73); PLATELET COUNT 265 x10^3/uL (140-400); RED BLOOD COUNT 3.33 x10^6/uL (3.50-5.40); RED CELL DISTRIBUTION WIDTH 15.9 % (11.5-14.5)
[2017-02-16 13:52] LABS: BACTERIA,URINE FEW /HPF (0-FEW); RBC,URINE FOBS /HPF (0-2); SQUAMOUS EPITHELIAL CELL,UR MOD /LPF; WBC,URINE TNTC /HPF (0-4)
[2017-02-16 14:05] LABS: CALCIUM 9.1 mg/dL (8.5-10.1); CREATININE 3.4 mg/dL (0.6-1.0); GFR 13.2; POTASSIUM 5.2 mmol/L (3.5-5.1)
[2017-02-16 14:11] LABS: ALBUMIN 2.9 g/dL (3.4-5.0); ALBUMIN/GLOBULIN RATIO 0.5 (1.0-1.7); MAGNESIUM 2.3 mg/dL (1.8-2.4); TOTAL BILIRUBIN 0.3 mg/dL (0.2-1.0); TOTAL PROTEIN 8.4 g/dL (6.4-8.2)
[2017-02-16 14:33] VITALS: BP 163/74
--- NOTE | 2017-02-16 14:52 | PHYS DOC ---
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 Patient has history of chronic kidney disease and currently follows a Dr. Escalante. Patient also has history of neurogenic bladder and is currently self catheterizing daily. Patient states that she has had symptoms worsening over the past 2 days. Patient denies any associated fevers, nausea, or vomiting. Patient does admit to decreased appetite. Patient has been admitted in the past for dehydration, hyperkalemia, and urinary tract infection. Patient states that she is able to ambulate under her own power in her current condition. Review of Systems Review of Systems Constitutional: Generalized fatigue and weakness, denies fever or chills [] Eyes: Denies change in visual acuity, redness, or eye pain [] HENT: Denies nasal congestion or sore throat [] Respiratory: Denies cough or shortness of breath [] Cardiovascular: Denies chest pain or edema [] GI: Denies abdominal pain, nausea, vomiting, bloody stools or diarrhea [] : Denies dysuria or hematuria [] Musculoskeletal: Denies back pain or joint pain [] Integument: Denies rash or skin lesions [] Neurologic: Denies headache, focal weakness or sensory changes [] Current Medications Current Medications Current Medications Medications (Trade) Dose Ordered Sig/Claudette Start Time Stop Time Status Last Admin Dose Admin Sodium Polystyrene Sulfonate (Kayexalate) 15 gm 1X ONCE 02/16/17 15:00 02/16/17 15:01 DC 02/16/17 15:13 15 GM Sodium Chloride 1,000 ml @ 1,000 mls/hr Q1H 02/16/17 13:15 02/16/17 14:14 DC 02/16/17 13:15 1,000 MLS/HR Allergies Allergies Allergies Coded Allergies Type Severity Reaction Last Updated Verified latex Allergy Intermediate Rash 12/22/16 Yes Physical Exam Physical Exam Constitutional: Well developed, well nourished, no acute distress, non-toxic appearance. [] HENT: Normocephalic, atraumatic, bilateral external ears normal, oropharynx moist, no oral exudates, nose normal. [] Eyes: PERRLA, EOMI, conjunctiva normal, no discharge. [] Neck: Normal range of motion, no tenderness, supple, no stridor. [] Cardiovascular:Heart rate regular rhythm, no murmur [] Lungs & Thorax: Bilateral breath sounds clear to auscultation [] Abdomen: Bowel sounds normal, soft, no tenderness, no masses, no pulsatile masses. [] Skin: Warm, dry, no erythema, no rash. [] Back: No tenderness, no CVA tenderness. [] Extremities: No tenderness, no cyanosis, no clubbing, ROM intact, trace pedal edema bilaterally. [] Neurologic: Alert and oriented X 3, normal motor function, normal sensory function, no focal deficits noted. [] Current Patient Data Vital Signs Vital Signs Date Time Temp Pulse Resp B/P (MAP) Pulse Ox O2 Delivery O2 Flow Rate FiO2 02/16/17 14:33 72 20 163/74 (103) 72 Room Air 02/16/17 13:05 97.8 97.8 Lab Values Laboratory Tests Test 02/16/17 13:28 02/16/17 13:35 Urine Collection Type Unknown Urine Color Yellow Urine Clarity Turbid Urine pH 7.0 Urine Specific [place] 1.010 Urine Protein 100 mg/dL (NEG-TRACE) Urine Glucose (UA) Negative mg/dL (NEG) Urine Ketones (Stick) Negative mg/dL (NEG) Urine Blood Large (NEG) Urine Nitrite Negative (NEG) Urine Bilirubin Negative (NEG) Urine Urobilinogen Dipstick 0.2 mg/dL (0.2 mg/dL) Urine Leukocyte Esterase Large (NEG) Urine RBC Fobs /HPF (0-2) Urine WBC Tntc /HPF (0-4) Urine Squamous Epithelial Cells Mod /LPF Urine Bacteria Few /HPF (0-FEW) White Blood Count 6.0 x10^3/uL (4.0-11.0) Red Blood Count 3.33 x10^6/uL (3.50-5.40) L Hemoglobin 10.1 g/dL (12.0-15.5) L Hematocrit 30.7 % (36.0-47.0) L Mean Corpuscular Volume 92 fL (79-100) Mean Corpuscular Hemoglobin 30 pg (25-35) Mean Corpuscular Hemoglobin Concent 33 g/dL (31-37) Red Cell Distribution Width 15.9 % (11.5-14.5) H Platelet Count 265 x10^3/uL (140-400) Neutrophils (%) (Auto) 48 % (31-73) Lymphocytes (%) (Auto) 34 % (24-48) Monocytes (%) (Auto) 12 % (0-9) H Eosinophils (%) (Auto) 4 % (0-3) H Basophils (%) (Auto) 1 % (0-3) Neutrophils # (Auto) 2.9 x10^3uL (1.8-7.7) Lymphocytes # (Auto) 2.1 x10^3/uL (1.0-4.8) Monocytes # (Auto) 0.7 x10^3/uL (0.0-1.1) Eosinophils # (Auto) 0.3 x10^3/uL (0.0-0.7) Basophils # (Auto) 0.1 x10^3/uL (0.0-0.2) Sodium Level 140 mmol/L (136-145) Potassium Level 5.2 mmol/L (3.5-5.1) H Chloride Level 104 mmol/L (98-107) Carbon Dioxide Level 26 mmol/L (21-32) Anion Gap 10 (6-14) Blood Urea Nitrogen 55 mg/dL (7-20) H Creatinine 3.4 mg/dL (0.6-1.0) H Estimated GFR (Cockcroft-Gault) 13.2 BUN/Creatinine Ratio 16 (6-20) Glucose Level 189 mg/dL (70-99) H Calcium Level 9.1 mg/dL (8.5-10.1) Magnesium Level 2.3 mg/dL (1.8-2.4) Total Bilirubin 0.3 mg/dL (0.2-1.0) Aspartate Amino Transferase (AST) 18 U/L (15-37) Alanine Aminotransferase (ALT) 20 U/L (14-59) Alkaline Phosphatase 155 U/L (46-116) H Total Protein 8.4 g/dL (6.4-8.2) H Albumin 2.9 g/dL (3.4-5.0) L Albumin/Globulin Ratio 0.5 (1.0-1.7) L Laboratory Tests 02/16/17 13:35 Laboratory Tests 02/16/17 13:35 EKG EKG Not performed [] Radiology/Procedures Radiology/Procedures Not performed Course & Med Decision Making Course & Med Decision Making Pertinent Labs and Imaging studies reviewed. (See chart for details) Patient's labs appear close to baseline from previous measurements. The patient' s BUN appears elevated from her previous suggesting dehydration. Patient's potassium level was also noted to be 5.2. I spoke with Dr. Bolanos who was on- call for Dr. Escalante. He agreed with treatment using Kayexalate 15 g which was given to the patient in the emergency department. Advised to increase oral fluid intake. The patient's UA appears abnormal, however patient shows no evidence of fever or significant leukocytosis. We will withhold use of antibiotics at this time pending cultures. Spoke with the patient's daughter and patient and they voiced agreement in this plan. Recommended follow-up with Dr. Escalante in the next 5-7 days for reevaluation and repeat metabolic panel. Advised return emergency department for any worsening symptoms. Patient patient' s daughter voiced understanding and in agreement with treatment plan. Dragon Disclaimer Dragon Disclaimer This electronic medical record was generated, in whole or in part, using a voice recognition dictation system. Departure Departure Impression: Primary Impression: Chronic renal failure Additional Impression: Dehydration Disposition: 01 HOME, SELF-CARE Condition: STABLE Referrals: LISA CALHOUN (PCP) Patient Instructions: Dehydration, Adult, Kidney Failure Additional Instructions: Call the office of Dr. Escalante to schedule an appointment in the next 5-7 days for follow-up. Return to the emergency department for any worsening symptoms. Problem Qualifiers Primary Impression: Chronic renal failure Chronic kidney disease stage: stage 4 (severe) Qualified Codes: N18.4 - Chronic kidney disease, stage 4 (severe) JUAN RUTLEDGE MD Feb 16, 2017 14:51
[2017-02-16] MEDS ORDERED: SODIUM POLYSTYRENE SULFONATE 15 GM/60 ML ORAL.SUSP. PO ONE (15:00)
--- NOTE | 2017-02-16 16:02 | EKG ---
[facility] [address] [place] [address] Test Date: 2017-02-16 Test Time: 13:04:23 Pat Name: BRYANT LOCKHART Department: Room: Gender: F Inspector Filters: : 1940 Requested By: JUAN RUTLEDGE Order Number: [id number] Reading MD: Measurements Intervals [place] Rate: 79 P: -3 NM: 168 QRS: -14 QRSD: 88 T: 80 QT: 396 QTc: 455 Interpretive Statements SINUS RHYTHM LEFTWARD AXIS NO SPECIFIC ECG ABNORMALITIES RI6.01 No previous ECG available for comparison
== END 2017-02-16 15:31 | disposition home or self-care (01) ==
LOC: ER 12:24
DX: E86.0 Dehydration (principal); I12.9 Hypertensive chronic kidney disease with stage 1 through stage 4 chronic kidney disease, or unspecified chronic kidney disease; N31.9 Neuromuscular dysfunction of bladder, unspecified; E11.22 Type 2 diabetes mellitus with diabetic chronic kidney disease; N18.9 Chronic kidney disease, unspecified; E78.00 Pure hypercholesterolemia, unspecified; E87.5 Hyperkalemia; I25.10 Atherosclerotic heart disease of native coronary artery without angina pectoris; Z95.1 Presence of aortocoronary bypass graft; Z87.440 Personal history of urinary (tract) infections; Z91.040 Latex allergy status
CPT/HCPCS: 36415; 51702; 80053; 81001; 83735; 85027; 87086; 93005; 96360; 99285; J7030

== ENCOUNTER 2017-03-01 06:55 | Emergency (ER) | payer MEDICARE ==
[~2017-03-01] VITALS: Ht 162.6 cm; Wt 68.5 kg
--- NOTE | 2017-03-01 07:15 | PHYS DOC ---
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 Her daughter is here with her today. The daughter reports that the patient straight catheters on a daily basis and frequently when she gets fatigued and nauseated she has a urinary tract infection. The patient denies any pain currently. The daughter denies her mother being confused over the past few days. Onset today. Location generalized. Duration constant. No alleviating or exacerbating factors present. No specific timing. Review of systems is negative for chest pain shortness breath abdominal pain vomiting. Negative for blood in stool fevers chills or any new rashes. All other review of systems is negative unless otherwise noted in history of present illness. ED course: 76-year-old female presenting to the emergency department with generalized fatigue and malaise with nausea. Afebrile in the emergency department today. Normal heart rate. Physical exam is unremarkable. Pleasant oriented elderly female. Abdomen is soft and nontender. Lungs are clear to auscultation bilaterally. Otherwise unremarkable. Blood work obtained. Urinalysis obtained. CBC unremarkable. Chemistry panel shows chronic kidney disease. Urinalysis suggestive of possible urinary tract infection. Macrobid ordered. Patient discharged home to follow up with PCP in 2-3 days. The patient was then discharged home in stable condition to follow up with their primary care physician over the next 2-3 days. They were to return if their symptoms worsened or if they were concerned for any reason. [id number] discharge instructions and return precautions were given. Patient's questions were answered to their satisfaction. Patient is comfortable plan. Review of Systems Review of Systems SEE ABOVE. Allergies Allergies Allergies Coded Allergies Type Severity Reaction Last Updated Verified latex Allergy Intermediate Rash 12/22/16 Yes Physical Exam Physical Exam Constitutional: Well developed, well nourished, no acute distress, non-toxic appearance. [] HENT: Normocephalic, atraumatic, bilateral external ears normal, oropharynx moist, no oral exudates, nose normal. [] Eyes: PERRLA, EOMI, conjunctiva normal, no discharge. [] Neck: Normal range of motion, no tenderness, supple, no stridor. [] Cardiovascular:Heart rate regular rhythm, no murmur [] Lungs & Thorax: Bilateral breath sounds clear to auscultation [] Abdomen: Bowel sounds normal, soft, no tenderness, no masses, no pulsatile masses. [] Skin: Warm, dry, no erythema, no rash. [] Back: No tenderness, no CVA tenderness. [] Extremities: No tenderness, no cyanosis, no clubbing, ROM intact, no edema. [] Neurologic: Alert and oriented X 3, normal motor function, normal sensory function, no focal deficits noted. [] Psychologic: Affect normal, judgement normal, mood normal. [] Current Patient Data Vital Signs Vital Signs Date Time Temp Pulse Resp B/P (MAP) Pulse Ox O2 Delivery O2 Flow Rate FiO2 03/01/17 07:08 98.2 94 20 160/72 (101) 98 Room Air 98.2 Lab Values Laboratory Tests Test 03/01/17 07:10 03/01/17 07:20 White Blood Count 7.3 x10^3/uL (4.0-11.0) Red Blood Count 3.54 x10^6/uL (3.50-5.40) Hemoglobin 10.7 g/dL (12.0-15.5) L Hematocrit 32.4 % (36.0-47.0) L Mean Corpuscular Volume 92 fL (79-100) Mean Corpuscular Hemoglobin 30 pg (25-35) Mean Corpuscular Hemoglobin Concent 33 g/dL (31-37) Red Cell Distribution Width 15.8 % (11.5-14.5) H Platelet Count 316 x10^3/uL (140-400) Neutrophils (%) (Auto) 58 % (31-73) Lymphocytes (%) (Auto) 29 % (24-48) Monocytes (%) (Auto) 9 % (0-9) Eosinophils (%) (Auto) 3 % (0-3) Basophils (%) (Auto) 1 % (0-3) Neutrophils # (Auto) 4.3 x10^3uL (1.8-7.7) Lymphocytes # (Auto) 2.1 x10^3/uL (1.0-4.8) Monocytes # (Auto) 0.7 x10^3/uL (0.0-1.1) Eosinophils # (Auto) 0.2 x10^3/uL (0.0-0.7) Basophils # (Auto) 0.1 x10^3/uL (0.0-0.2) Sodium Level 140 mmol/L (136-145) Potassium Level 5.0 mmol/L (3.5-5.1) Chloride Level 103 mmol/L (98-107) Carbon Dioxide Level 26 mmol/L (21-32) Anion Gap 11 (6-14) Blood Urea Nitrogen 48 mg/dL (7-20) H Creatinine 3.1 mg/dL (0.6-1.0) H Estimated GFR (Cockcroft-Gault) 14.7 Glucose Level 208 mg/dL (70-99) H Calcium Level 8.9 mg/dL (8.5-10.1) Troponin I Quantitative < 0.017 ng/mL (0.000-0.055) Lipase 97 U/L (73-393) Urine Collection Type U cath Urine Color Yellow Urine Clarity Turbid Urine pH 7.0 Urine Specific [place] 1.010 Urine Protein 100 mg/dL (NEG-TRACE) Urine Glucose (UA) Negative mg/dL (NEG) Urine Ketones (Stick) Negative mg/dL (NEG) Urine Blood Large (NEG) Urine Nitrite Negative (NEG) Urine Bilirubin Negative (NEG) Urine Urobilinogen Dipstick 0.2 mg/dL (0.2 mg/dL) Urine Leukocyte Esterase Large (NEG) Urine RBC >40 /HPF (0-2) Urine WBC Tntc /HPF (0-4) Urine Squamous Epithelial Cells None /LPF Urine Bacteria 0 /HPF (0-FEW) Laboratory Tests 03/01/17 07:10 Laboratory Tests 03/01/17 07:10 EKG EKG [] Radiology/Procedures Radiology/Procedures [] Course & Med Decision Making Course & Med Decision Making Pertinent Labs and Imaging studies reviewed. (See chart for details) [] Dragon Disclaimer Dragon Disclaimer This electronic medical record was generated, in whole or in part, using a voice recognition dictation system. Departure Departure Impression: Primary Impression: UTI (urinary tract infection) Additional Impressions: NAUSEA Generalized weakness Disposition: 01 HOME, SELF-CARE Condition: STABLE Referrals: LISA CALHOUN (PCP) Patient Instructions: Nausea, Adult, Weakness, [id number] Additional Instructions: Thank you for allowing us to participate in your care today. Followup with your primary care physician in 3 days if your symptoms do not improve. Call your Primary Doctor tomorrow and inform them of your visit today. If you do not have a primary care provider you can ask for a list of our primary care providers. Return to the emergency department you have any new or concerning findings. This should be evaluated by the primary care physician and any necessary consulting services for continued management within a few days after discharge. Return to emergency room if you have any new or concerning symptoms including but not limited to fever, chills, nausea, vomiting, intractable pain, any new rashes, chest pain, shortness of air, uncontrolled bleeding, difficulty breathing, and/or vision loss. Scripts Nitrofurantoin Monohyd/M-Cryst (MACROBID 100 MG CAPSULE) 100 Mg Capsule 1 CAP PO BID, #10 CAP Prov: CAROLYN CAMPBELL MD 03/01/17 Problem Qualifiers CAROLYN CAMPBELL MD Mar 01, 2017 07:15
[2017-03-01 07:26] LABS: BILIRUBIN,URINE NEGATIVE (NEG); GLUCOSE,URINE NEGATIVE (NEG); NITRITE,URINE NEGATIVE (NEG); PROTEIN,URINE 100 mg/dL (NEG-TRACE); UROBILINOGEN,URINE 0.2 mg/dL (0.2 mg/dL)
[2017-03-01 07:37] LABS: CALCIUM 8.9 mg/dL (8.5-10.1); CREATININE 3.1 mg/dL (0.6-1.0); GFR 14.7
[2017-03-01 07:44] LABS: BACTERIA,URINE 0 /HPF (0-FEW); RBC,URINE >40 /HPF (0-2); WBC,URINE TNTC /HPF (0-4)
[2017-03-01 07:53] LABS: BASO # 0.1 x10^3/uL (0.0-0.2); BASO % 1 % (0-3); EOS % 3 % (0-3); HEMATOCRIT 32.4 % (36.0-47.0); HEMOGLOBIN 10.7 g/dL (12.0-15.5); LYMPH # 2.1 x10^3/uL (1.0-4.8); LYMPH % 29 % (24-48); MEAN CORPUSCULAR HEMOGLOBIN 30 pg (25-35); MEAN CORPUSCULAR HGB CONC 33 g/dL (31-37); MEAN CORPUSCULAR VOLUME 92 fL (79-100); MONO % 9 % (0-9); NEUT % 58 % (31-73); PLATELET COUNT 316 x10^3/uL (140-400); RED BLOOD COUNT 3.54 x10^6/uL (3.50-5.40); RED CELL DISTRIBUTION WIDTH 15.8 % (11.5-14.5); WHITE BLOOD COUNT 7.3 x10^3/uL (4.0-11.0)
[2017-03-01] MEDS ORDERED: NITR100C62 PO (09:04)
--- NOTE | 2017-03-01 09:13 | EKG ---
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
[2017-03-01] MEDS ORDERED: CIPR500T PO (09:17)
[2017-03-01 09:21] VITALS: BP 182/80
== END 2017-03-01 09:22 | disposition home or self-care (01) ==
LOC: ER 06:55
DX: N39.0 Urinary tract infection, site not specified (principal); R53.1 Weakness; I25.10 Atherosclerotic heart disease of native coronary artery without angina pectoris; E78.00 Pure hypercholesterolemia, unspecified; I12.9 Hypertensive chronic kidney disease with stage 1 through stage 4 chronic kidney disease, or unspecified chronic kidney disease; E11.22 Type 2 diabetes mellitus with diabetic chronic kidney disease; N18.9 Chronic kidney disease, unspecified; Z96.0 Presence of urogenital implants; Z95.1 Presence of aortocoronary bypass graft; Z91.040 Latex allergy status
CPT/HCPCS: 36415; 80048; 81001; 83690; 84484; 85027; 87086; 93005; 99285-25

== ENCOUNTER 2017-03-02 12:44 | Emergency (ER) | payer MEDICARE ==
[~2017-03-02] VITALS: Ht 154.9 cm; Wt 68.5 kg
[~2017-03-02 12:44] MED LIST changes: +CIPR500T PO
--- NOTE | 2017-03-02 13:45 | EKG ---
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
[2017-03-02 14:08] LABS: POTASSIUM ISTAT 5.4 mmol/L (3.5-5.0)
[2017-03-02 14:28] VITALS: BP 149/67
[2017-03-02] MEDS ORDERED: IV NORMAL SALINE 1000ML BAG 1,000 ML IV ONE (16:15)
[2017-03-02] MEDS ORDERED: SODIUM POLYSTYRENE SULFONATE 15 GM/60 ML ORAL.SUSP. PO ONE ×2 (16:15)
--- NOTE | 2017-03-02 16:24 | PHYS DOC ---
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 Patient states she still doesn't feel back to her baseline and [place] daughter was concerned that her creatinine might be elevated as well as possible elevation of her potassium. Daughter states that when she doesn't feel well it, and that her creatinine is more elevated than usual and she gets a dose of Kayexalate and then follows up with her specialist managers. Review of Systems Review of Systems Constitutional: Denies fever or chills [] Eyes: Denies change in visual acuity, redness, or eye pain [] HENT: Denies nasal congestion or sore throat [] Respiratory: Denies cough or shortness of breath [] Cardiovascular: No additional information not addressed in HPI [] GI: Denies abdominal pain, nausea, vomiting, bloody stools or diarrhea [] : Denies dysuria or hematuria [] Musculoskeletal: Denies back pain or joint pain [] Integument: Denies rash or skin lesions [] Neurologic: Denies headache, focal weakness or sensory changes [] Endocrine: Denies polyuria or polydipsia [] Current Medications Current Medications Current Medications Medications (Trade) Dose Ordered Sig/Claudette Start Time Stop Time Status Last Admin Dose Admin Sodium Polystyrene Sulfonate (Kayexalate) 15 gm 1X ONCE 03/02/17 16:15 03/02/17 16:16 UNV Sodium Chloride 1,000 ml @ 1,000 mls/hr 1X ONCE 03/02/17 16:15 03/02/17 17:14 Allergies Allergies Allergies Coded Allergies Type Severity Reaction Last Updated Verified latex Allergy Intermediate Rash 12/22/16 Yes Physical Exam Physical Exam Well-appearing elderly female with hair perfectly groomed no acute distress benign exam Constitutional: Well developed, well nourished, no acute distress, non-toxic appearance. [] HENT: Normocephalic, atraumatic, bilateral external ears normal, oropharynx moist, no oral exudates, nose normal. [] Eyes: PERRLA, EOMI, conjunctiva normal, no discharge. [] Neck: Normal range of motion, no tenderness, supple, no stridor. [] Cardiovascular:Heart rate regular rhythm, no murmur [] Lungs & Thorax: Bilateral breath sounds clear to auscultation [] Abdomen: Bowel sounds normal, soft, no tenderness, no masses, no pulsatile masses. [] Skin: Warm, dry, no erythema, no rash. [] Back: No tenderness, no CVA tenderness. [] Extremities: No tenderness, no cyanosis, no clubbing, ROM intact, no edema. [] Neurologic: Alert and oriented X 3, normal motor function, normal sensory function, no focal deficits noted. [] Psychologic: Affect normal, judgement normal, mood normal. [] Current Patient Data Vital Signs Vital Signs Date Time Temp Pulse Resp B/P (MAP) Pulse Ox O2 Delivery O2 Flow Rate FiO2 03/02/17 14:28 82 20 149/67 (94) 97 Room Air 03/02/17 13:04 98.0 98.0 Lab Values Laboratory Tests Test 03/02/17 14:00 03/02/17 14:04 POC Troponin I 0.00 ng/ml (<0.08) POC Hemoglobin 10.5 g/dL (12-15) L POC Hematocrit 31 % (36-40) L POC Sodium 139 mmol/L (135-145) POC Potassium 5.4 mmol/L (3.5-5.0) H POC Chloride 106 mmol/L (98-110) POC Total CO2 25 mmol/L (23-32) Anion Gap 14 mmol/L (6-14) POC Blood Urea Nitrogen 48 mg/dL (8-26) H POC Creatinine 3.7 mg/dL (0.5-1.4) H Glucose Level 172 mg/dL (70-99) H POC Ionized Calcium ([place]) 1.15 mmol/L (1.13-1.32) Laboratory Tests 03/02/17 14:04 EKG EKG [] Radiology/Procedures Radiology/Procedures [] Course & Med Decision Making Course & Med Decision Making Pertinent Labs and Imaging studies reviewed. (See chart for details) Well-appearing patient unremarkable exam currently being treated for UTI i-STAT today with creatinine of 3.7 up from prior value of 3.1. Potassium 5.4 up from last value of 5.0. This type of exacerbation of chronic renal failure is typical for this patient. Case was discussed with Dr. Bolanos specialist managers oncology pharmacist for Dr. Escalante. Dr. Bolanos is aware the history and findings requests 30 g of Kayexalate by mouth prior to discharge, 1 L of IV fluid at this time and encourage patient to straight catheter herself at home as previously directed which she apparently is reluctant to do as often as she has been directed. After this treatment no further workup or treatment will be indicated patient and daughter agree with outpatient follow-up and strict return precautions will be given [] Dragon Disclaimer Dragon Disclaimer This electronic medical record was generated, in whole or in part, using a voice recognition dictation system. Departure Departure Referrals: LISA CALHOUN (PCP) HAWA NARANJO MD Mar 02, 2017 16:24
== END 2017-03-02 18:25 | disposition home or self-care (01) ==
LOC: ER 12:44
DX: I12.9 Hypertensive chronic kidney disease with stage 1 through stage 4 chronic kidney disease, or unspecified chronic kidney disease (principal); E11.22 Type 2 diabetes mellitus with diabetic chronic kidney disease; N18.9 Chronic kidney disease, unspecified; E78.00 Pure hypercholesterolemia, unspecified; I25.10 Atherosclerotic heart disease of native coronary artery without angina pectoris; Z95.1 Presence of aortocoronary bypass graft; Z87.440 Personal history of urinary (tract) infections; Z91.040 Latex allergy status
CPT/HCPCS: 51701; 80047; 84484; 93005; 96360; 99284; J7030

== ENCOUNTER 2017-03-17 12:22 | Emergency (ER) | payer MEDICARE ==
[~2017-03-17] VITALS: Ht 162.6 cm; Wt 63.5 kg
--- NOTE | 2017-03-17 12:31 | PHYS DOC ---
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 Patient states she ate something last night but Shaun is eating anything today she hasn't been drinking any water she did have a couple cups of coffee this morning. She states she feels generalized weak she was seen yesterday and diagnosed with UTI and started on Cipro. She has an appointment next Tuesday with her quail farmer. She has past medical history of diabetes, neurogenic bladder with stents, chronic kidney disease stage IV, hypertension dyslipidemia. She denies chest pain nausea vomiting or shortness of breath. Review of Systems Review of Systems Constitutional: Denies fever or chills [] Eyes: Denies change in visual acuity, redness, or eye pain [] HENT: Denies nasal congestion or sore throat [] Respiratory: Denies cough or shortness of breath [] Cardiovascular: No additional information not addressed in HPI [] GI: Denies abdominal pain, nausea, vomiting, bloody stools or diarrhea [] : Denies dysuria or hematuria [] Musculoskeletal: Denies back pain or joint pain [] Integument: Denies rash or skin lesions [] Neurologic: Denies headache, focal weakness or sensory changes [] Endocrine: Denies polyuria or polydipsia [] Current Medications Current Medications Current Medications Medications (Trade) Dose Ordered Sig/Claudette Start Time Stop Time Status Last Admin Dose Admin Ceftriaxone Sodium 50 ml @ 100 mls/hr 1X ONCE 03/17/17 16:00 03/17/17 16:29 DC 03/17/17 16:19 100 MLS/HR Sodium Chloride 500 ml @ 1,000 mls/hr 1X ONCE 03/17/17 16:45 03/17/17 17:14 DC 03/17/17 17:07 1,000 MLS/HR Allergies Allergies Allergies Coded Allergies Type Severity Reaction Last Updated Verified latex Allergy Intermediate Rash 12/22/16 Yes Physical Exam Physical Exam Constitutional: Well developed, well nourished, no acute distress, non-toxic appearance. [] HENT: Normocephalic, atraumatic, bilateral external ears normal, oropharynx moist, no oral exudates, nose normal. [] Eyes: PERRLA, EOMI, conjunctiva normal, no discharge. [] Neck: Normal range of motion, no tenderness, supple, no stridor. [] Cardiovascular:Heart rate regular rhythm, no murmur [] Lungs & Thorax: Bilateral breath sounds clear to auscultation [] Abdomen: Bowel sounds normal, soft, no tenderness, no masses, no pulsatile masses. [] Skin: Warm, dry, no erythema, no rash. [] Back: No tenderness, no CVA tenderness. [] Extremities: No tenderness, no cyanosis, no clubbing, ROM intact, no edema. [] Neurologic: Alert and oriented X 3, normal motor function, normal sensory function, no focal deficits noted. [] Psychologic: Affect normal, judgement normal, mood normal. [] Current Patient Data Vital Signs Vital Signs Date Time Temp Pulse Resp B/P (MAP) Pulse Ox O2 Delivery O2 Flow Rate FiO2 03/17/17 17:38 84 147/65 (92) 99 Room Air 03/17/17 12:30 97.9 18 97.9 Lab Values Laboratory Tests Test 03/17/17 12:34 03/17/17 13:05 03/17/17 13:50 Glucose (Fingerstick) 207 mg/dL (70-99) H Urine Collection Type U cath Urine Color Yellow Urine Clarity Turbid Urine pH 7.0 Urine Specific [place] 1.010 Urine Protein 100 mg/dL (NEG-TRACE) Urine Glucose (UA) Negative mg/dL (NEG) Urine Ketones (Stick) Negative mg/dL (NEG) Urine Blood Large (NEG) Urine Nitrite Negative (NEG) Urine Bilirubin Negative (NEG) Urine Urobilinogen Dipstick 0.2 mg/dL (0.2 mg/dL) Urine Leukocyte Esterase Large (NEG) Urine RBC Fobs /HPF (0-2) Urine WBC Tntc /HPF (0-4) Urine Bacteria Moderate /HPF (0-FEW) White Blood Count 6.5 x10^3/uL (4.0-11.0) Red Blood Count 3.41 x10^6/uL (3.50-5.40) L Hemoglobin 10.2 g/dL (12.0-15.5) L Hematocrit 31.5 % (36.0-47.0) L Mean Corpuscular Volume 92 fL (79-100) Mean Corpuscular Hemoglobin 30 pg (25-35) Mean Corpuscular Hemoglobin Concent 32 g/dL (31-37) Red Cell Distribution Width 15.9 % (11.5-14.5) H Platelet Count 267 x10^3/uL (140-400) Neutrophils (%) (Auto) 53 % (31-73) Lymphocytes (%) (Auto) 31 % (24-48) Monocytes (%) (Auto) 12 % (0-9) H Eosinophils (%) (Auto) 3 % (0-3) Basophils (%) (Auto) 1 % (0-3) Neutrophils # (Auto) 3.4 x10^3uL (1.8-7.7) Lymphocytes # (Auto) 2.0 x10^3/uL (1.0-4.8) Monocytes # (Auto) 0.8 x10^3/uL (0.0-1.1) Eosinophils # (Auto) 0.2 x10^3/uL (0.0-0.7) Basophils # (Auto) 0.1 x10^3/uL (0.0-0.2) Prothrombin Time 13.0 SEC (11.7-14.0) Prothrombin Time INR 1.0 (0.8-1.1) Sodium Level 138 mmol/L (136-145) Potassium Level 5.3 mmol/L (3.5-5.1) H Chloride Level 103 mmol/L (98-107) Carbon Dioxide Level 24 mmol/L (21-32) Anion Gap 11 (6-14) Blood Urea Nitrogen 51 mg/dL (7-20) H Creatinine 3.5 mg/dL (0.6-1.0) H Estimated GFR (Cockcroft-Gault) 12.8 Glucose Level 208 mg/dL (70-99) H Calcium Level 9.2 mg/dL (8.5-10.1) Magnesium Level 2.2 mg/dL (1.8-2.4) Total Bilirubin 0.3 mg/dL (0.2-1.0) Direct Bilirubin 0.1 mg/dL (0.0-0.2) Aspartate Amino Transferase (AST) 12 U/L (15-37) L Alanine Aminotransferase (ALT) 11 U/L (14-59) L Alkaline Phosphatase 146 U/L (46-116) H Creatine Kinase 44 U/L (26-192) Creatine Kinase MB (Mass) < 0.5 ng/mL (0.0-3.6) Creatine Kinase MB Relative Index % (0-4) Troponin I Quantitative < 0.017 ng/mL (0.000-0.055) KE-Ook-T-Type Natriuretic Peptide 669 pg/mL (0-124) H Total Protein 8.3 g/dL (6.4-8.2) H Albumin 3.0 g/dL (3.4-5.0) L Lipase 112 U/L (73-393) Thyroid Stimulating Hormone (TSH) 5.445 uIU/mL (0.358-3.74) H Laboratory Tests 03/17/17 13:50 Laboratory Tests 03/17/17 13:50 EKG EKG [] Radiology/Procedures Radiology/Procedures [facility] [address] [place] [address] IMAGING REPORT Signed PATIENT: BRYANT LOCKHART ACCOUNT: [id number] : 1940 LOCATION: ER AGE: 76 SEX: F EXAM STATUS: REG ER ORD. PHYSICIAN: STEPHANIE MERLOS MD REASON: weakness PROCEDURE: PORTABLE CHEST 1V Single view of the Chest 03/17/2017 2:00 AM Indication: weakness Comparison: Chest radiograph February 08, 2017 Findings: No pneumothorax or pleural effusion is identified. Heart size is stable. Lungs are clear. Aortic calcification is noted. Prior median sternotomy is seen. Curvilinear wire-like structure projecting over the left heart border is similar to prior exam, likely a retained epicardial pacing lead. No acute osseous changes are identified. Impression: No evidence of acute cardiopulmonary process or acute change from prior study. DICTATED and SIGNED BY: JAVIER GOVEA MD DATE: 03/17/17 1345 CC: STEPHANIE MERLOS MD; LISA CALHOUN ~ Impressions: Weakness UTI Course & Med Decision Making Course & Med Decision Making Pertinent Labs and Imaging studies reviewed. (See chart for details) EKG does not show any abnormality, potassium slightly elevated but she received a liter of fluids. She received Rocephin for her UTI she is on Cipro home. She has a follow-up appointment on Tuesday. Her creatinine is near her baseline. Patient feels comfortable going home with her daughter. Return precautions given. They're agreeable plan of being discharged in stable condition this time. Dragon Disclaimer Dragon Disclaimer This electronic medical record was generated, in whole or in part, using a voice recognition dictation system. Departure Departure Impression: Primary Impression: UTI (lower urinary tract infection) Disposition: HOME, SELF-CARE Condition: STABLE Referrals: LISA CALHOUN (PCP) Patient Instructions: Urinary Tract Infection, [id number] Additional Instructions: You were seen today for feeling weak. He received IV fluids and Rocephin please continue your antibiotics for your briefly prescribed. Follow-up with your quail farmer next week. If your symptoms return, you feel worse you have other concerns please return back to emergency department for further evaluation and treatment. STEPHANIE MERLOS MD Mar 17, 2017 12:31
[2017-03-17] MEDS ORDERED: IV NORMAL SALINE 500ML BAG 500 ML IV SCH (13:00)
--- NOTE | 2017-03-17 13:16 | EKG ---
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
[2017-03-17 13:20] LABS: BILIRUBIN,URINE NEGATIVE (NEG); GLUCOSE,URINE NEGATIVE (NEG); NITRITE,URINE NEGATIVE (NEG); PROTEIN,URINE 100 mg/dL (NEG-TRACE); UROBILINOGEN,URINE 0.2 mg/dL (0.2 mg/dL)
--- NOTE | 2017-03-17 13:22 | EKG ---
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
[2017-03-17 13:25] LABS: BACTERIA,URINE MODERATE /HPF (0-FEW); RBC,URINE FOBS /HPF (0-2); WBC,URINE TNTC /HPF (0-4)
--- NOTE | 2017-03-17 14:02 | RAD ---
Single view of the Chest 03/17/2017 2:00 AM Indication: weakness Comparison: Chest radiograph February 08, 2017 Findings: No pneumothorax or pleural effusion is identified. Heart size is stable. Lungs are clear. Aortic calcification is noted. Prior median sternotomy is seen. Curvilinear wire-like structure projecting over the left heart border is similar to prior exam, likely a retained epicardial pacing lead. No acute osseous changes are identified. Impression: No evidence of acute cardiopulmonary process or acute change from prior study.
[2017-03-17 14:07] LABS: BASO # 0.1 x10^3/uL (0.0-0.2); BASO % 1 % (0-3); EOS % 3 % (0-3); HEMATOCRIT 31.5 % (36.0-47.0); HEMOGLOBIN 10.2 g/dL (12.0-15.5); LYMPH % 31 % (24-48); MEAN CORPUSCULAR HEMOGLOBIN 30 pg (25-35); MEAN CORPUSCULAR HGB CONC 32 g/dL (31-37); MEAN CORPUSCULAR VOLUME 92 fL (79-100); MONO % 12 % (0-9); NEUT % 53 % (31-73); PLATELET COUNT 267 x10^3/uL (140-400); RED BLOOD COUNT 3.41 x10^6/uL (3.50-5.40); RED CELL DISTRIBUTION WIDTH 15.9 % (11.5-14.5); WHITE BLOOD COUNT 6.5 x10^3/uL (4.0-11.0)
[2017-03-17 14:21] LABS: CALCIUM 9.2 mg/dL (8.5-10.1); CREATININE 3.5 mg/dL (0.6-1.0); GFR 12.8; POTASSIUM 5.3 mmol/L (3.5-5.1)
[2017-03-17 14:26] LABS: DIRECT BILIRUBIN 0.1 mg/dL (0.0-0.2); MAGNESIUM 2.2 mg/dL (1.8-2.4); TOTAL BILIRUBIN 0.3 mg/dL (0.2-1.0); TOTAL PROTEIN 8.3 g/dL (6.4-8.2)
[2017-03-17 14:36] LABS: CKMB MASS < 0.5 ng/mL (0.0-3.6); CREATINE KINASE 44 U/L (26-192)
[2017-03-17] MEDS ORDERED: IV NORMAL SALINE 1000ML BAG 500 ML IV ONE (16:45)
[2017-03-17 17:38] VITALS: BP 147/65
== END 2017-03-17 18:19 | disposition home or self-care (01) ==
LOC: ER 12:22
DX: N39.0 Urinary tract infection, site not specified (principal); R63.0 Anorexia; R53.1 Weakness; I25.10 Atherosclerotic heart disease of native coronary artery without angina pectoris; E11.22 Type 2 diabetes mellitus with diabetic chronic kidney disease; I12.9 Hypertensive chronic kidney disease with stage 1 through stage 4 chronic kidney disease, or unspecified chronic kidney disease; N18.4 Chronic kidney disease, stage 4 (severe); E78.00 Pure hypercholesterolemia, unspecified; Z87.440 Personal history of urinary (tract) infections; Z96.0 Presence of urogenital implants; Z95.1 Presence of aortocoronary bypass graft; Z91.040 Latex allergy status
CPT/HCPCS: 36415; 71010; 80048; 80076; 81001; 82553; 82962; 83690; 83735; 83880; 84443; 84484; 85027; 85610; 87086; 93005; 96361; 96365; 99285; J0690; J7030; J7040

== ENCOUNTER 2017-03-25 06:54 | Emergency (ER) | payer MEDICARE ==
[~2017-03-25] VITALS: Ht 162.6 cm; Wt 63.5 kg
--- NOTE | 2017-03-25 07:21 | PHYS DOC ---
Past Medical History Past Medical History: CAD, Diabetes-Type II, High Cholesterol, Hypertension, Renal Disease, UTI, Other Additional Past Medical Histor: hyperkalemia, bladder retention, urinary stents Past Surgical History: Coronary Bypass Surgery, Other Additional Past Surgical Histo: benign tumor removed from colon, bladder stent removed and reinserted Alcohol Use: None Drug Use: None Adult General Chief Complaint Chief Complaint: WEAKNESS/GENERALIZED HPI HPI Patient is a 76 year old female presents to the emergency department with a history of feeling weak for the last 2 days with nausea. Denies fever, chills, vomiting, diarrhea or urinary symptoms. Family member at bedside states she gets frequent UTI's. Patient is an insulin dependent diabetic with BS today 132. Patient denies chest pain, SOA, difficulty breathing or leg swelling. Patient does self cath herself twice a day. Patient with a urinary stent that has been in place since October. She has had 6 recent visits for UTI. Review of Systems Review of Systems Constitutional: Denies fever or chills. C/o of feeling weak and tired [] Eyes: Denies change in visual acuity, redness, or eye pain [] HENT: Denies nasal congestion or sore throat [] Respiratory: Denies cough or shortness of breath [] Cardiovascular: No additional information not addressed in HPI [] GI: Denies abdominal pain, nausea, vomiting, bloody stools or diarrhea [] : Denies dysuria or hematuria [] Musculoskeletal: Denies back pain or joint pain [] Integument: Denies rash or skin lesions [] Neurologic: Denies headache, focal weakness or sensory changes [] Endocrine: Denies polyuria or polydipsia [] Allergies Allergies Allergies Coded Allergies Type Severity Reaction Last Updated Verified latex Allergy Intermediate Rash 12/22/16 Yes Physical Exam Physical Exam Constitutional: Well developed, well nourished, no acute distress, non-toxic appearance. [] HENT: Normocephalic, atraumatic, bilateral external ears normal, oropharynx moist, no oral exudates, nose normal. Bilateral TM normal, throat without erythema, nares with clear drainage noted. Eyes: PERRLA, EOMI, conjunctiva normal, no discharge. [] Neck: Normal range of motion, no tenderness, supple, no stridor. [] Cardiovascular:Heart rate regular rhythm, no murmur [] Lungs & Thorax: Bilateral breath sounds clear to auscultation [] Abdomen: Bowel sounds hypoactive, soft, no tenderness, no masses, no pulsatile masses. [] Skin: Warm, dry, no erythema, no rash. [] Back: No tenderness Extremities: No tenderness, no cyanosis, no clubbing, ROM intact, no edema. [] Neurologic: Alert and oriented X 3, normal motor function, normal sensory function, no focal deficits noted. [] Psychologic: Affect normal, judgement normal, mood normal. [] Current Patient Data Vital Signs Vital Signs Date Time Temp Pulse Resp B/P (MAP) Pulse Ox O2 Delivery O2 Flow Rate FiO2 03/25/17 08:03 77 22 155/72 (99) 98 Room Air 03/25/17 07:09 98.1 98.1 Lab Values Laboratory Tests Test 03/25/17 07:01 03/25/17 08:00 Urine Collection Type Unknown Urine Color Yellow Urine Clarity Turbid Urine pH 6.5 Urine Specific [place] 1.010 Urine Protein 100 mg/dL (NEG-TRACE) Urine Glucose (UA) Negative mg/dL (NEG) Urine Ketones (Stick) Negative mg/dL (NEG) Urine Blood Large (NEG) Urine Nitrite Negative (NEG) Urine Bilirubin Negative (NEG) Urine Urobilinogen Dipstick 0.2 mg/dL (0.2 mg/dL) Urine Leukocyte Esterase Large (NEG) Urine RBC Tntc /HPF (0-2) Urine WBC Tntc /HPF (0-4) Urine Bacteria Moderate /HPF (0-FEW) White Blood Count 6.4 x10^3/uL (4.0-11.0) Red Blood Count 3.29 x10^6/uL (3.50-5.40) L Hemoglobin 10.0 g/dL (12.0-15.5) L Hematocrit 29.6 % (36.0-47.0) L Mean Corpuscular Volume 90 fL (79-100) Mean Corpuscular Hemoglobin 30 pg (25-35) Mean Corpuscular Hemoglobin Concent 34 g/dL (31-37) Red Cell Distribution Width 15.2 % (11.5-14.5) H Platelet Count 244 x10^3/uL (140-400) Neutrophils (%) (Auto) 63 % (31-73) Lymphocytes (%) (Auto) 22 % (24-48) L Monocytes (%) (Auto) 11 % (0-9) H Eosinophils (%) (Auto) 4 % (0-3) H Basophils (%) (Auto) 1 % (0-3) Neutrophils # (Auto) 4.0 x10^3uL (1.8-7.7) Lymphocytes # (Auto) 1.4 x10^3/uL (1.0-4.8) Monocytes # (Auto) 0.7 x10^3/uL (0.0-1.1) Eosinophils # (Auto) 0.2 x10^3/uL (0.0-0.7) Basophils # (Auto) 0.1 x10^3/uL (0.0-0.2) Sodium Level 138 mmol/L (136-145) Potassium Level 5.0 mmol/L (3.5-5.1) Chloride Level 106 mmol/L (98-107) Carbon Dioxide Level 24 mmol/L (21-32) Anion Gap 8 (6-14) Blood Urea Nitrogen 57 mg/dL (7-20) H Creatinine 3.5 mg/dL (0.6-1.0) H Estimated GFR (Cockcroft-Gault) 12.8 BUN/Creatinine Ratio 16 (6-20) Glucose Level 186 mg/dL (70-99) H Calcium Level 8.6 mg/dL (8.5-10.1) Total Bilirubin 0.3 mg/dL (0.2-1.0) Aspartate Amino Transferase (AST) 17 U/L (15-37) Alanine Aminotransferase (ALT) 17 U/L (14-59) Alkaline Phosphatase 127 U/L (46-116) H Troponin I Quantitative < 0.017 ng/mL (0.000-0.055) Total Protein 8.3 g/dL (6.4-8.2) H Albumin 2.9 g/dL (3.4-5.0) L Albumin/Globulin Ratio 0.5 (1.0-1.7) L Laboratory Tests 03/25/17 08:00 Laboratory Tests 03/25/17 08:00 EKG EKG EKG completed at 0720 with HR 84 SR noted no ectopy no STEMI per Dr Duque. [] Radiology/Procedures Radiology/Procedures [][facility] [address] [place] [address] IMAGING REPORT Signed PATIENT: BRYANT LOCKHART ACCOUNT: [id number] : 1940 LOCATION: ER AGE: 76 SEX: F EXAM STATUS: REG ER ORD. PHYSICIAN: RICHARD FRIAS APRN REASON: weakness PROCEDURE: PORTABLE CHEST 1V AP chest radiograph 03/25/2017 Indication: Dizziness and weakness. History of heart surgery. Comparison: 03/17/2017 chest radiograph Findings: Prior median sternotomy and CABG. Cardiac and mediastinal silhouettes are within normal limits. No pleural effusion, pneumothorax or focal consolidation. Calcified atheromatous disease of the thoracic aortic arch. There is a persistent curvilinear thin radiopaque wire projected over the medial left lung base which may represent retained epicardial wire. There is probable mild inferior subluxation of the glenohumeral articulation. Impression: 1. No acute cardiopulmonary abnormality. 2. Possible mild inferior subluxation of the right glenohumeral articulation. If clinically indicated, dedicated right shoulder radiographs could be obtained. DICTATED and SIGNED BY: MUKESH WARD MD DATE: 03/25/17 0753 CC: RICHARD FRIAS APRN; LISA CALHOUN ~ Course & Med Decision Making Course & Med Decision Making Pertinent Labs and Imaging studies reviewed. (See chart for details) Spoke with patient and family regards to the patient's having a large amount of blood in her urine and a large amount leukocyte Estrace. Patient does still have a urinary stent in place. They had been seen Dr. Ritchie although he is not providing coverage. They state that they have an appointment with a [facility] urologist Dr. Conde next month. [id number] Duque in regards to CT scan. Dr Duque does not feel a CT is warranted at this time as patient has chronic UTI with no growth noted in urine culture. Patient will be recommended to keep he followup appointment with urology. I will contact the urologist in regards to chronic UTI from self cath and patient having stent placement. Spoke with patient in regards to treatment plan with patient stating understanding at this time. [id number] Barr office in regard to patient being seen here multiple times for UTI, message left for the Nurse to call me back. [] Dragon Disclaimer Dragon Disclaimer This electronic medical record was generated, in whole or in part, using a voice recognition dictation system. Departure Departure Impression: Primary Impression: UTI (lower urinary tract infection) Additional Impression: Chronic renal failure Disposition: HOME, SELF-CARE Condition: STABLE Referrals: LISA CALHOUN (PCP) Patient Instructions: Urinary Tract Infection, [id number] Additional Instructions: Your urine is positive for blood and leukocytes Drink plenty of fluids such as water and cranberry juice Avoid cranberry juice cocktail, carbonated beverages, citrus fruits and alcohol as these are considered irritants to the bladder Keep your appointment with Dr Conde in which you have already set Return to emergency department as needed for signs and symptoms that become worse. Scripts Cephalexin (CEPHALEXIN) 500 Mg Tablet 1 TAB PO BID, #20 TAB Prov: RICHARD FRIAS APRN 03/25/17 Problem Qualifiers RICHARD FRIAS APRN Mar 25, 2017 07:21
--- NOTE | 2017-03-25 08:00 | RAD ---
AP chest radiograph 03/25/2017 Indication: Dizziness and weakness. History of heart surgery. Comparison: 03/17/2017 chest radiograph Findings: Prior median sternotomy and CABG. Cardiac and mediastinal silhouettes are within normal limits. No pleural effusion, pneumothorax or focal consolidation. Calcified atheromatous disease of the thoracic aortic arch. There is a persistent curvilinear thin radiopaque wire projected over the medial left lung base which may represent retained epicardial wire. There is probable mild inferior subluxation of the glenohumeral articulation. Impression: 1. No acute cardiopulmonary abnormality. 2. Possible mild inferior subluxation of the right glenohumeral articulation. If clinically indicated, dedicated right shoulder radiographs could be obtained.
[2017-03-25 08:03] VITALS: BP 155/72
[2017-03-25 08:15] LABS: BASO # 0.1 x10^3/uL (0.0-0.2); BASO % 1 % (0-3); EOS % 4 % (0-3); HEMATOCRIT 29.6 % (36.0-47.0); LYMPH # 1.4 x10^3/uL (1.0-4.8); LYMPH % 22 % (24-48); MEAN CORPUSCULAR HEMOGLOBIN 30 pg (25-35); MEAN CORPUSCULAR HGB CONC 34 g/dL (31-37); MEAN CORPUSCULAR VOLUME 90 fL (79-100); MONO % 11 % (0-9); NEUT % 63 % (31-73); PLATELET COUNT 244 x10^3/uL (140-400); RED BLOOD COUNT 3.29 x10^6/uL (3.50-5.40); RED CELL DISTRIBUTION WIDTH 15.2 % (11.5-14.5); WHITE BLOOD COUNT 6.4 x10^3/uL (4.0-11.0)
[2017-03-25 08:21] LABS: BILIRUBIN,URINE NEGATIVE (NEG); GLUCOSE,URINE NEGATIVE (NEG); NITRITE,URINE NEGATIVE (NEG); PH,URINE 6.5; PROTEIN,URINE 100 mg/dL (NEG-TRACE); UROBILINOGEN,URINE 0.2 mg/dL (0.2 mg/dL)
[2017-03-25 08:23] LABS: CALCIUM 8.6 mg/dL (8.5-10.1); CREATININE 3.5 mg/dL (0.6-1.0); GFR 12.8
[2017-03-25 08:29] LABS: ALBUMIN 2.9 g/dL (3.4-5.0); ALBUMIN/GLOBULIN RATIO 0.5 (1.0-1.7); TOTAL BILIRUBIN 0.3 mg/dL (0.2-1.0); TOTAL PROTEIN 8.3 g/dL (6.4-8.2)
[2017-03-25 08:33] LABS: RBC,URINE TNTC /HPF (0-2); WBC,URINE TNTC /HPF (0-4)
[2017-03-25 08:34] LABS: BACTERIA,URINE MODERATE /HPF (0-FEW)
--- NOTE | 2017-03-25 08:43 | EKG ---
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
[2017-03-25] MEDS ORDERED: CEPH500T PO (08:59)
== END 2017-03-25 09:07 | disposition home or self-care (01) ==
LOC: ER 06:54
DX: N39.0 Urinary tract infection, site not specified (principal); I12.9 Hypertensive chronic kidney disease with stage 1 through stage 4 chronic kidney disease, or unspecified chronic kidney disease; N18.9 Chronic kidney disease, unspecified; I25.10 Atherosclerotic heart disease of native coronary artery without angina pectoris; E11.9 Type 2 diabetes mellitus without complications; E78.00 Pure hypercholesterolemia, unspecified; Z87.440 Personal history of urinary (tract) infections; Z91.040 Latex allergy status
CPT/HCPCS: 36415; 71010; 80053; 81001; 84484; 85027; 87086; 93005; 99285-25

== ENCOUNTER 2017-04-12 08:58 | Emergency (ER) | payer MEDICARE ==
[~2017-04-12] VITALS: Ht 162.6 cm; Wt 63.5 kg
[2017-04-12 09:15] LABS: BILIRUBIN,URINE NEGATIVE (NEG); GLUCOSE,URINE NEGATIVE (NEG); NITRITE,URINE NEGATIVE (NEG); PH,URINE 6.5; PROTEIN,URINE 100 mg/dL (NEG-TRACE); UROBILINOGEN,URINE 0.2 mg/dL (0.2 mg/dL)
--- NOTE | 2017-04-12 09:19 | EKG ---
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
[2017-04-12] MEDS ORDERED: PROMETHAZINE 12.5 MG TABLET. PO ONE (09:30)
--- NOTE | 2017-04-12 09:32 | PHYS DOC ---
Past Medical History Past Medical History: CAD, Diabetes-Type II, High Cholesterol, Hypertension, Renal Disease, UTI, Other Additional Past Medical Histor: hyperkalemia, bladder retention, urinary stents Past Surgical History: Coronary Bypass Surgery, Other Additional Past Surgical Histo: benign tumor removed from colon, bladder stent removed and reinserted Alcohol Use: None Drug Use: None Adult General Chief Complaint Chief Complaint: WEAKNESS/GENERALIZED HPI HPI Patient is a 76 year old female who presents with "weakness", symptoms of 1 day with nausea, decreased appetite. Patient reports her weakness is generalized, nonfocal. She's experienced these symptoms many times in the past with her renal disease. She denies increased urinary frequency or dysuria, no abdominal pain, no diarrhea or constipation. She denies chest pain or shortness of breath, no fevers. Patient sees Dr. Escalante for her kidney disease and has follow-up with the urologist at [facility] on . Her last urine culture showed no growth. Review of Systems Review of Systems Constitutional: Denies fever or chills [] Eyes: Denies eye pain [] HENT: Denies nasal congestion or sore throat [] Respiratory: Denies cough or shortness of breath [] Cardiovascular: Denies chest pain GI: Denies abdominal pain, vomiting, or change in stools : Denies dysuria or hematuria [] Musculoskeletal: Denies back pain Integument: Denies rash Neurologic: Denies headache, focal weakness or sensory changes [] Current Medications Current Medications Current Medications Medications (Trade) Dose Ordered Sig/Claudette Start Time Stop Time Status Last Admin Dose Admin Promethazine HCl (Phenergan) 12.5 mg 1X ONCE 04/12/17 09:30 04/12/17 09:31 DC 04/12/17 09:52 12.5 MG Sodium Polystyrene Sulfonate (Kayexalate) 30 gm 1X ONCE 04/12/17 11:15 04/12/17 11:16 DC 04/12/17 11:31 30 GM Sodium Chloride 1,000 ml @ 1,000 mls/hr 1X ONCE 04/12/17 11:15 04/12/17 12:14 DC 04/12/17 11:34 1,000 MLS/HR Allergies Allergies Allergies Coded Allergies Type Severity Reaction Last Updated Verified latex Allergy Intermediate Rash 12/22/16 Yes Physical Exam Physical Exam Constitutional: Well developed, well nourished, no acute distress, non-toxic appearance. [] HENT: Normocephalic, atraumatic, bilateral external ears normal, oropharynx moist, no oral exudates, nose normal. [] Eyes: PERRLA, EOMI, conjunctiva normal, no discharge. [] Neck: Normal range of motion, no tenderness, supple, no stridor. [] Cardiovascular:Heart rate regular with regular rhythm, no murmur [] Lungs & Thorax: Bilateral breath sounds clear to auscultation, no wheeze, crackles or rhonchi Abdomen: Bowel sounds normal, soft, no tenderness, no masses, no pulsatile masses. No guarding or peritoneal signs Skin: Warm, dry, no erythema, no rash. [] Back: No tenderness, no CVA tenderness. [] Extremities: No tenderness, no cyanosis, no clubbing, ROM intact, no edema. [] Neurologic: Alert and oriented X 3, normal motor function, normal sensory function, no focal deficits noted. cranial Nerves II through XII intact, bilateral handgrip 5 over 5 Psychologic: Affect normal, judgement normal, mood normal. [] Current Patient Data Vital Signs Vital Signs Date Time Temp Pulse Resp B/P (MAP) Pulse Ox O2 Delivery O2 Flow Rate FiO2 04/12/17 12:39 83 20 155/71 (99) 97 Room Air 04/12/17 09:06 98.4 98.4 Lab Values Laboratory Tests Test 04/12/17 09:00 04/12/17 09:40 Urine Collection Type Unknown Urine Color Yellow Urine Clarity Turbid Urine pH 6.5 Urine Specific [place] 1.010 Urine Protein 100 mg/dL (NEG-TRACE) Urine Glucose (UA) Negative mg/dL (NEG) Urine Ketones (Stick) Negative mg/dL (NEG) Urine Blood Large (NEG) Urine Nitrite Negative (NEG) Urine Bilirubin Negative (NEG) Urine Urobilinogen Dipstick 0.2 mg/dL (0.2 mg/dL) Urine Leukocyte Esterase Large (NEG) Urine RBC 20-40 /HPF (0-2) Urine WBC Tntc /HPF (0-4) Urine Bacteria Few /HPF (0-FEW) White Blood Count 5.9 x10^3/uL (4.0-11.0) Red Blood Count 3.50 x10^6/uL (3.50-5.40) Hemoglobin 10.2 g/dL (12.0-15.5) L Hematocrit 32.0 % (36.0-47.0) L Mean Corpuscular Volume 92 fL (79-100) Mean Corpuscular Hemoglobin 29 pg (25-35) Mean Corpuscular Hemoglobin Concent 32 g/dL (31-37) Red Cell Distribution Width 15.3 % (11.5-14.5) H Platelet Count 260 x10^3/uL (140-400) Neutrophils (%) (Auto) 60 % (31-73) Lymphocytes (%) (Auto) 27 % (24-48) Monocytes (%) (Auto) 9 % (0-9) Eosinophils (%) (Auto) 3 % (0-3) Basophils (%) (Auto) 1 % (0-3) Neutrophils # (Auto) 3.6 x10^3uL (1.8-7.7) Lymphocytes # (Auto) 1.6 x10^3/uL (1.0-4.8) Monocytes # (Auto) 0.5 x10^3/uL (0.0-1.1) Eosinophils # (Auto) 0.2 x10^3/uL (0.0-0.7) Basophils # (Auto) 0.1 x10^3/uL (0.0-0.2) Sodium Level 138 mmol/L (136-145) Potassium Level 5.5 mmol/L (3.5-5.1) H Chloride Level 102 mmol/L (98-107) Carbon Dioxide Level 25 mmol/L (21-32) Anion Gap 11 (6-14) Blood Urea Nitrogen 64 mg/dL (7-20) H Creatinine 3.8 mg/dL (0.6-1.0) H Estimated GFR (Cockcroft-Gault) 11.6 BUN/Creatinine Ratio 17 (6-20) Glucose Level 250 mg/dL (70-99) H Calcium Level 8.9 mg/dL (8.5-10.1) Total Bilirubin 0.3 mg/dL (0.2-1.0) Aspartate Amino Transferase (AST) 16 U/L (15-37) Alanine Aminotransferase (ALT) 24 U/L (14-59) Alkaline Phosphatase 188 U/L (46-116) H Troponin I Quantitative < 0.017 ng/mL (0.000-0.055) Total Protein 8.0 g/dL (6.4-8.2) Albumin 2.9 g/dL (3.4-5.0) L Albumin/Globulin Ratio 0.6 (1.0-1.7) L Laboratory Tests 04/12/17 09:40 Laboratory Tests 04/12/17 09:40 EKG EKG 95 bpm, sinus, normal axis, QTC of 504, no ST elevation or depression, nonischemic T waves, interpreted by me [] Radiology/Procedures Radiology/Procedures [] Course & Med Decision Making Course & Med Decision Making Pertinent Labs and Imaging studies reviewed. (See chart for details) Patient symptoms are very nonspecific. I reviewed patient's extensive medical records and she presents frequently for the same complaint. Urinalysis, lab work , EKG ordered. Pt has increased Cr and slightly elevated K. I spoke with Dr. Bolanos who believes pt is dehydrated as she doesn't like to straight cath herself for her neurogenic bladder. Recommends 1 L NS bolus, 30mg Kayexylate, f/u as outpt. Will wait for urine cx prior to treating as pt states no symptoms and pt's urine cultures have been negative. Dragon Disclaimer Dragon Disclaimer This electronic medical record was generated, in whole or in part, using a voice recognition dictation system. Departure Departure Impression: Primary Impression: Chronic renal failure Disposition: HOME, SELF-CARE Condition: STABLE Referrals: LISA CALHOUN (PCP) ESTELA NAVA MD Apr 12, 2017 09:32
[2017-04-12 09:45] LABS: BACTERIA,URINE FEW /HPF (0-FEW); RBC,URINE 20-40 /HPF (0-2); WBC,URINE TNTC /HPF (0-4)
[2017-04-12 09:50] LABS: BASO # 0.1 x10^3/uL (0.0-0.2); BASO % 1 % (0-3); EOS % 3 % (0-3); HEMOGLOBIN 10.2 g/dL (12.0-15.5); LYMPH # 1.6 x10^3/uL (1.0-4.8); LYMPH % 27 % (24-48); MEAN CORPUSCULAR HEMOGLOBIN 29 pg (25-35); MEAN CORPUSCULAR HGB CONC 32 g/dL (31-37); MEAN CORPUSCULAR VOLUME 92 fL (79-100); MONO % 9 % (0-9); NEUT % 60 % (31-73); PLATELET COUNT 260 x10^3/uL (140-400); RED CELL DISTRIBUTION WIDTH 15.3 % (11.5-14.5); WHITE BLOOD COUNT 5.9 x10^3/uL (4.0-11.0)
[2017-04-12 10:08] LABS: CALCIUM 8.9 mg/dL (8.5-10.1); CREATININE 3.8 mg/dL (0.6-1.0); GFR 11.6; POTASSIUM 5.5 mmol/L (3.5-5.1)
[2017-04-12 10:14] LABS: ALBUMIN 2.9 g/dL (3.4-5.0); ALBUMIN/GLOBULIN RATIO 0.6 (1.0-1.7); TOTAL BILIRUBIN 0.3 mg/dL (0.2-1.0)
[2017-04-12] MEDS ORDERED: IV NORMAL SALINE 1000ML BAG 1,000 ML IV ONE (11:15)
[2017-04-12] MEDS ORDERED: SODIUM POLYSTYRENE SULFONATE 15 GM/60 ML ORAL.SUSP. PO ONE (11:15)
[2017-04-12 12:39] VITALS: BP 155/71
== END 2017-04-12 13:07 | disposition home or self-care (01) ==
LOC: ER 08:58
DX: E11.22 Type 2 diabetes mellitus with diabetic chronic kidney disease (principal); I12.9 Hypertensive chronic kidney disease with stage 1 through stage 4 chronic kidney disease, or unspecified chronic kidney disease; N18.9 Chronic kidney disease, unspecified; E78.00 Pure hypercholesterolemia, unspecified; I25.10 Atherosclerotic heart disease of native coronary artery without angina pectoris; Z87.440 Personal history of urinary (tract) infections; Z87.898 Personal history of other specified conditions; Z95.5 Presence of coronary angioplasty implant and graft; Z96.0 Presence of urogenital implants; Z95.1 Presence of aortocoronary bypass graft; Z91.040 Latex allergy status
CPT/HCPCS: 36415; 80053; 81001; 84484; 85025; 87086; 93005; 96360; 99285; J7030; Q0169

== ENCOUNTER 2017-04-28 06:55 | Emergency (ER) | payer MEDICARE ==
[~2017-04-28] VITALS: Ht 162.6 cm; Wt 63.5 kg
--- NOTE | 2017-04-28 07:12 | PHYS DOC ---
Past Medical History Past Medical History: CAD, Diabetes-Type II, High Cholesterol, Hypertension, Renal Disease, UTI, Other Additional Past Medical Histor: hyperkalemia, bladder retention, urinary stents Past Surgical History: Coronary Bypass Surgery, Other Additional Past Surgical Histo: benign tumor removed from colon, bladder stent removed and reinserted Alcohol Use: None Drug Use: None Adult General Chief Complaint Chief Complaint: WEAKNESS/GENERALIZED HPI HPI Patient is a 76 year old F who presents with weakness for the past couple days. Patient states that she usually gets UTIs and has abnormal potassium levels a contributing to her increased weakness. Patient denies any fevers. Patient states she can get up and walk however she just feels more exhausted than normal. Patient denies any chest pain or shortness of breath. Patient denies any abdominal pain, nausea/vomiting/diarrhea. Patient has no other complaints other than general weakness. Review of Systems Review of Systems GEN weakness HEENT: Denies blurred vision, sore throat CV: Denies chest pain RESP: Denies shortness of air, cough GI: Denies n/v/d NEURO: Denies confusion, dizziness MSK: Denies weakness, joint pain/swelling Current Medications Current Medications Current Medications Medications (Trade) Dose Ordered Sig/Claudette Start Time Stop Time Status Last Admin Dose Admin Ceftriaxone Sodium 50 ml @ 100 mls/hr 1X ONCE 04/28/17 08:00 04/28/17 08:29 04/28/17 07:53 100 MLS/HR Allergies Allergies Allergies Coded Allergies Type Severity Reaction Last Updated Verified latex Allergy Intermediate Rash 12/22/16 Yes Physical Exam Physical Exam GEN.: No apparent distress. Alert and oriented. HEENT: Head is normocephalic, atraumatic NECK: Supple. LUNGS: CTAB. HEART: RRR, S1, S2 present. Peripheral pulses intact ABDOMEN: Soft, nontender. Positive bowel sounds. EXTREMITIES: Without any cyanosis. NEUROLOGIC: Normal speech, normal tone PSYCHIATRIC: Normal affect, normal mood. SKIN: No ulcerations Current Patient Data Vital Signs Vital Signs Date Time Temp Pulse Resp B/P (MAP) Pulse Ox O2 Delivery O2 Flow Rate FiO2 04/28/17 07:09 97.8 92 20 155/72 (99) 94 Room Air 97.8 Lab Values Laboratory Tests Test 04/28/17 07:03 04/28/17 07:24 Urine Collection Type Unknown Urine Color Yellow Urine Clarity Turbid Urine pH 7.0 Urine Specific [place] 1.010 Urine Protein 100 mg/dL (NEG-TRACE) Urine Glucose (UA) Negative mg/dL (NEG) Urine Ketones (Stick) Negative mg/dL (NEG) Urine Blood Large (NEG) Urine Nitrite Negative (NEG) Urine Bilirubin Negative (NEG) Urine Urobilinogen Dipstick 0.2 mg/dL (0.2 mg/dL) Urine Leukocyte Esterase Large (NEG) Urine RBC 3-5 /HPF (0-2) Urine WBC Tntc /HPF (0-4) Urine Squamous Epithelial Cells Occ /LPF Urine Bacteria Many /HPF (0-FEW) White Blood Count 7.0 x10^3/uL (4.0-11.0) Red Blood Count 3.52 x10^6/uL (3.50-5.40) Hemoglobin 10.2 g/dL (12.0-15.5) L Hematocrit 32.2 % (36.0-47.0) L Mean Corpuscular Volume 91 fL (79-100) Mean Corpuscular Hemoglobin 29 pg (25-35) Mean Corpuscular Hemoglobin Concent 32 g/dL (31-37) Red Cell Distribution Width 15.5 % (11.5-14.5) H Platelet Count 303 x10^3/uL (140-400) Neutrophils (%) (Auto) 65 % (31-73) Lymphocytes (%) (Auto) 21 % (24-48) L Monocytes (%) (Auto) 10 % (0-9) H Eosinophils (%) (Auto) 3 % (0-3) Basophils (%) (Auto) 1 % (0-3) Neutrophils # (Auto) 4.6 x10^3uL (1.8-7.7) Lymphocytes # (Auto) 1.5 x10^3/uL (1.0-4.8) Monocytes # (Auto) 0.7 x10^3/uL (0.0-1.1) Eosinophils # (Auto) 0.2 x10^3/uL (0.0-0.7) Basophils # (Auto) 0.1 x10^3/uL (0.0-0.2) Sodium Level 136 mmol/L (136-145) Potassium Level 5.2 mmol/L (3.5-5.1) H Chloride Level 100 mmol/L (98-107) Carbon Dioxide Level 26 mmol/L (21-32) Anion Gap 10 (6-14) Blood Urea Nitrogen 62 mg/dL (7-20) H Creatinine 3.8 mg/dL (0.6-1.0) H Estimated GFR (Cockcroft-Gault) 11.6 BUN/Creatinine Ratio 16 (6-20) Glucose Level 255 mg/dL (70-99) H Lactic Acid Level 1.2 mmol/L (0.4-2.0) Calcium Level 9.5 mg/dL (8.5-10.1) Total Bilirubin 0.4 mg/dL (0.2-1.0) Aspartate Amino Transferase (AST) 14 U/L (15-37) L Alanine Aminotransferase (ALT) 18 U/L (14-59) Alkaline Phosphatase 186 U/L (46-116) H Troponin I Quantitative < 0.017 ng/mL (0.000-0.055) Total Protein 8.9 g/dL (6.4-8.2) H Albumin 2.9 g/dL (3.4-5.0) L Albumin/Globulin Ratio 0.5 (1.0-1.7) L Laboratory Tests 04/28/17 07:24 Laboratory Tests 04/28/17 07:24 EKG EKG 0719: EKG shows normal sinus rhythm rate of 90 no STEMI [] Radiology/Procedures Radiology/Procedures [] Course & Med Decision Making Course & Med Decision Making Pertinent Labs and Imaging studies reviewed. (See chart for details) ED course: Patient was seen and examined in the emergency room and a septic workup was ordered 0758: Patient has a UTI with no signs of sepsis and has chronic kidney disease and her creatinine is at baseline. Updated patient and family on lab results and had a discussion with them about disposition. Given the patient's age and diagnosis of UTI without sepsis gave the patient the option of being admitted to the hospital or going home with oral antibiotics and short-term follow-up with PCP. Family and patient stated they did not want to be admitted to the hospital and would like oral antibiotics and follow up with her specialist for further evaluation and management. Daughter states that this usually happens and they usually give her oral antibiotics and let her go home. Strict return precautions were given. MDM: After reviewing the chart, CC/HPI/PMH, physical exam, [lab results], [ radiological results], I do not believe the patient is septic or has a severe bacterial infection warranting further workup and/or admission at this time. I believe the patient has an uncomplicated UTI and the patient has elected to be treated as an outpatient with oral antibiotics. Patient states she does not want to be admitted to the hospital. Patient is stable for discharge and recommended short-term follow-up with his pharmacy district manager and family physician for further evaluation and management. Additional verbal discharge instructions were provided to the patient and that if symptoms get worse or any new symptoms arise that are worrisome to the patient she is to return to the emergency room immediately [] Dragon Disclaimer Dragon Disclaimer This electronic medical record was generated, in whole or in part, using a voice recognition dictation system. Departure Departure Impression: Primary Impression: UTI (urinary tract infection) Additional Impression: Chronic renal failure Disposition: HOME, SELF-CARE Condition: IMPROVED Referrals: LISA CALHOUN (PCP) Patient Instructions: Urinary Tract Infection, [id number] Additional Instructions: Please follow up with your family physician or pharmacy district manager next one to 2 days and return if symptoms increase Scripts Cephalexin (KEFLEX) 250 Mg Capsule 1 CAP PO TID, #21 CAP Prov: MIKAYLA BETTENCOURT DO 04/28/17 Problem Qualifiers MIKAYLA BETTENCOURT DO Apr 28, 2017 07:12
--- NOTE | 2017-04-28 07:18 | EKG ---
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
[2017-04-28 07:23] LABS: BILIRUBIN,URINE NEGATIVE (NEG); GLUCOSE,URINE NEGATIVE (NEG); NITRITE,URINE NEGATIVE (NEG); PROTEIN,URINE 100 mg/dL (NEG-TRACE); UROBILINOGEN,URINE 0.2 mg/dL (0.2 mg/dL)
[2017-04-28 07:35] LABS: BACTERIA,URINE MANY /HPF (0-FEW); SQUAMOUS EPITHELIAL CELL,UR OCC /LPF; WBC,URINE TNTC /HPF (0-4)
[2017-04-28 07:39] LABS: CALCIUM 9.5 mg/dL (8.5-10.1); CREATININE 3.8 mg/dL (0.6-1.0); GFR 11.6; POTASSIUM 5.2 mmol/L (3.5-5.1)
[2017-04-28 07:44] LABS: BASO # 0.1 x10^3/uL (0.0-0.2); BASO % 1 % (0-3); EOS % 3 % (0-3); HEMATOCRIT 32.2 % (36.0-47.0); HEMOGLOBIN 10.2 g/dL (12.0-15.5); LYMPH # 1.5 x10^3/uL (1.0-4.8); LYMPH % 21 % (24-48); MEAN CORPUSCULAR HEMOGLOBIN 29 pg (25-35); MEAN CORPUSCULAR HGB CONC 32 g/dL (31-37); MEAN CORPUSCULAR VOLUME 91 fL (79-100); MONO % 10 % (0-9); NEUT % 65 % (31-73); PLATELET COUNT 303 x10^3/uL (140-400); RED BLOOD COUNT 3.52 x10^6/uL (3.50-5.40); RED CELL DISTRIBUTION WIDTH 15.5 % (11.5-14.5)
[2017-04-28 07:47] LABS: ALBUMIN 2.9 g/dL (3.4-5.0); ALBUMIN/GLOBULIN RATIO 0.5 (1.0-1.7); TOTAL BILIRUBIN 0.4 mg/dL (0.2-1.0); TOTAL PROTEIN 8.9 g/dL (6.4-8.2)
[2017-04-28] MEDS ORDERED: CEPH-263 PO (08:04)
[2017-04-28 08:25] VITALS: BP 137/63
== END 2017-04-28 08:26 | disposition home or self-care (01) ==
LOC: ER 06:55
DX: N39.0 Urinary tract infection, site not specified (principal); E11.22 Type 2 diabetes mellitus with diabetic chronic kidney disease; I12.9 Hypertensive chronic kidney disease with stage 1 through stage 4 chronic kidney disease, or unspecified chronic kidney disease; N18.9 Chronic kidney disease, unspecified; I25.10 Atherosclerotic heart disease of native coronary artery without angina pectoris; E78.00 Pure hypercholesterolemia, unspecified; Z95.1 Presence of aortocoronary bypass graft; Z91.040 Latex allergy status
CPT/HCPCS: 36415; 80053; 81001; 83605; 84484; 85025; 87040; 87086; 93005; 96365; 99285; J0690

== ENCOUNTER 2017-05-10 06:46 | Emergency (ER) | payer MEDICARE ==
[~2017-05-10] VITALS: Ht 157.5 cm; Wt 63.5 kg
[~2017-05-10 06:46] MED LIST changes: +CEPH-263 PO
[2017-05-10 06:58] VITALS: BP 142/76
[2017-05-10 07:08] LABS: BILIRUBIN,URINE NEGATIVE (NEG); GLUCOSE,URINE NEGATIVE (NEG); NITRITE,URINE NEGATIVE (NEG); PROTEIN,URINE 100 mg/dL (NEG-TRACE); UROBILINOGEN,URINE 0.2 mg/dL (0.2 mg/dL)
--- NOTE | 2017-05-10 07:35 | PHYS DOC ---
Past Medical History Past Medical History: CAD, Diabetes-Type II, High Cholesterol, Hypertension, Renal Disease, UTI, Other Additional Past Medical Histor: hyperkalemia, bladder retention, urinary stents Past Surgical History: Coronary Bypass Surgery, Other Additional Past Surgical Histo: benign tumor removed from colon, bladder stent removed and reinserted Alcohol Use: None Drug Use: None Adult General Chief Complaint Chief Complaint: pelvic pain/dysuria HPI HPI Patient is a 76 year old female who presents with chronic hypotonic bladder requiring straight caths presents with concentrated cloudy urine and lower abdominal pain overnight. Pt was instructed on last admission to cath twice per day. No vaginal irritation of discharge reported, no vomiting, reports mild nausea. Denies fevers. Pt was scheduled to have urethral stent replaced today but was not cleared for procedure by seizure so the procedure was canceled. They stated that she hadn't had clearance performed although patient has no other symptoms. Patient was previously seen by Dr. Ritchie who are all longer works at our facility, the procedure was scheduled with Dr. Conde. PCP is Dr. Cates Review of Systems Review of Systems Constitutional: Denies fever or chills [] Eyes: Denies change in visual acuity, redness, or eye pain [] HENT: Denies nasal congestion or sore throat [] Respiratory: Denies cough or shortness of breath [] Cardiovascular: Denies chest pain GI: Denies vomiting, bloody stools or diarrhea [] : per hpi Musculoskeletal: Denies back pain or joint pain [] Integument: Denies rash or skin lesions [] Neurologic: Denies headache, focal weakness or sensory changes [] Allergies Allergies Allergies Coded Allergies Type Severity Reaction Last Updated Verified latex Allergy Intermediate Rash 12/22/16 Yes Physical Exam Physical Exam Constitutional: Well developed, well nourished, no acute distress, non-toxic appearance. [] HENT: Normocephalic, atraumatic, bilateral external ears normal, oropharynx moist, no oral exudates, nose normal. [] Eyes: PERRLA, EOMI, conjunctiva normal, no discharge. [] Neck: Normal range of motion, no tenderness, supple, no stridor. [] Cardiovascular:Heart rate regular with regular rhythm, no murmur [] Lungs & Thorax: Bilateral breath sounds clear to auscultation , no wheeze or crackles Abdomen: soft, no tenderness, no masses, no pulsatile masses. [] Skin: Warm, dry, no erythema, no rash. [] Back: No tenderness, no CVA tenderness. [] Extremities: No tenderness, no cyanosis, no clubbing, ROM intact, no edema. [] Neurologic: Alert and oriented X 3, normal motor function, normal sensory function, no focal deficits noted. [] Psychologic: Affect normal, judgement normal, mood normal. [] Current Patient Data Vital Signs Vital Signs Date Time Temp Pulse Resp B/P (MAP) Pulse Ox O2 Delivery O2 Flow Rate FiO2 05/10/17 06:58 97.8 90 20 99 Room Air 97.8 EKG EKG [] Radiology/Procedures Radiology/Procedures [] Course & Med Decision Making Course & Med Decision Making Pertinent Labs and Imaging studies reviewed. (See chart for details) I reviewed pt's medical record. UA ordered. Reviewed most previous UA culture, showing mixed urogenital patrizia and yeast. Dragon Disclaimer Dragon Disclaimer This electronic medical record was generated, in whole or in part, using a voice recognition dictation system. Departure Departure Referrals: LISA CATES (PCP) ESTELA NAVA MD May 10, 2017 07:35
[2017-05-10 07:51] LABS: BACTERIA,URINE FEW /HPF (0-FEW); SQUAMOUS EPITHELIAL CELL,UR OCC /LPF; WBC,URINE TNTC /HPF (0-4)
[2017-05-10 08:34] LABS: BASO # 0.1 x10^3/uL (0.0-0.2); BASO % 1 % (0-3); EOS % 4 % (0-3); HEMATOCRIT 31.7 % (36.0-47.0); HEMOGLOBIN 10.5 g/dL (12.0-15.5); LYMPH # 1.3 x10^3/uL (1.0-4.8); LYMPH % 22 % (24-48); MEAN CORPUSCULAR HEMOGLOBIN 30 pg (25-35); MEAN CORPUSCULAR HGB CONC 33 g/dL (31-37); MEAN CORPUSCULAR VOLUME 90 fL (79-100); MONO % 11 % (0-9); NEUT % 62 % (31-73); PLATELET COUNT 254 x10^3/uL (140-400); RED BLOOD COUNT 3.51 x10^6/uL (3.50-5.40); RED CELL DISTRIBUTION WIDTH 15.4 % (11.5-14.5); WHITE BLOOD COUNT 6.1 x10^3/uL (4.0-11.0)
[2017-05-10 08:36] LABS: POTASSIUM ISTAT 4.8 mmol/L (3.5-5.0)
[2017-05-10] MEDS ORDERED: FLUCONAZOLE 100 MG TABLET. PO ONE (08:45)
== END 2017-05-10 08:55 | disposition home or self-care (01) ==
LOC: ER 06:46
DX: R10.30 Lower abdominal pain, unspecified (principal); R11.0 Nausea; I25.10 Atherosclerotic heart disease of native coronary artery without angina pectoris; E11.22 Type 2 diabetes mellitus with diabetic chronic kidney disease; I12.9 Hypertensive chronic kidney disease with stage 1 through stage 4 chronic kidney disease, or unspecified chronic kidney disease; N18.9 Chronic kidney disease, unspecified; E78.00 Pure hypercholesterolemia, unspecified; N31.2 Flaccid neuropathic bladder, not elsewhere classified; Z87.440 Personal history of urinary (tract) infections; Z96.0 Presence of urogenital implants; Z95.1 Presence of aortocoronary bypass graft; Z91.040 Latex allergy status
CPT/HCPCS: 36415; 80047; 81001; 85025; 87086; 99284

== ENCOUNTER 2017-06-10 09:59 | Emergency (ER) | payer MEDICARE ==
[~2017-06-10] VITALS: Ht 162.6 cm; Wt 63.5 kg
--- NOTE | 2017-06-10 10:08 | PHYS DOC ---
Past Medical History Past Medical History: CAD, Diabetes-Type II, High Cholesterol, Hypertension, Renal Disease, UTI, Other Additional Past Medical Histor: hyperkalemia, bladder retention, urinary stents Past Surgical History: Coronary Bypass Surgery, Other Additional Past Surgical Histo: benign tumor removed from colon, bladder stent removed and reinserted Alcohol Use: None Drug Use: None Adult General Chief Complaint Chief Complaint: WEAKNESS/GENERALIZED HPI HPI Patient is a 76 year old female who presents with generalized weakness and decreased appetite. She states that symptoms started yesterday. Last night she didn't have much appetite was only able to eat some toast. She states this is exactly what happens when her urinary tract infection flares up. She states she has an appointment next week to have a stress test and EKG so that she can follow-up with her urologist and get her stents changed. She denies any nausea vomiting abdominal pain. She presents with her daughter. Her daughter states that she does get straight cathed twice a day. Review of Systems Review of Systems Constitutional: Denies fever or chills [] Eyes: Denies change in visual acuity, redness, or eye pain [] HENT: Denies nasal congestion or sore throat [] Respiratory: Denies cough or shortness of breath [] Cardiovascular: No additional information not addressed in HPI [] GI: Denies abdominal pain, nausea, vomiting, bloody stools or diarrhea [] : Denies dysuria or hematuria [] Musculoskeletal: Denies back pain or joint pain [] Integument: Denies rash or skin lesions [] Neurologic: Denies headache, focal weakness or sensory changes [] Endocrine: Denies polyuria or polydipsia [] Current Medications Current Medications Current Medications Medications (Trade) Dose Ordered Sig/Claudette Start Time Stop Time Status Last Admin Dose Admin Ceftriaxone Sodium 50 ml @ 100 mls/hr 1X ONCE 06/10/17 11:30 06/10/17 11:59 DC 06/10/17 11:43 100 MLS/HR Allergies Allergies Allergies Coded Allergies Type Severity Reaction Last Updated Verified latex Allergy Intermediate Rash 12/22/16 Yes Physical Exam Physical Exam Constitutional: Well developed, well nourished, no acute distress, non-toxic appearance. [] HENT: Normocephalic, atraumatic, bilateral external ears normal, oropharynx moist, no oral exudates, nose normal. [] Eyes: PERRLA, EOMI, conjunctiva normal, no discharge. [] Neck: Normal range of motion, no tenderness, supple, no stridor. [] Cardiovascular:Heart rate regular rhythm, no murmur [] Lungs & Thorax: Bilateral breath sounds clear to auscultation [] Abdomen: Bowel sounds normal, soft, no tenderness, no masses, no pulsatile masses. [] Skin: Warm, dry, no erythema, no rash. [] Back: No tenderness, no CVA tenderness. [] Extremities: No tenderness, no cyanosis, no clubbing, ROM intact, no edema. [] Neurologic: Alert and oriented X 3, normal motor function, normal sensory function, no focal deficits noted. [] Psychologic: Affect normal, judgement normal, mood normal. [] Current Patient Data Vital Signs Vital Signs Date Time Temp Pulse Resp B/P (MAP) Pulse Ox O2 Delivery O2 Flow Rate FiO2 06/10/17 10:13 98.2 81 20 139/81 (100) 97 Room Air 98.2 Lab Values Laboratory Tests Test 06/10/17 10:35 06/10/17 10:50 Urine Collection Type Void Urine Color Yellow Urine Clarity Turbid Urine pH 7.0 Urine Specific [place] 1.010 Urine Protein 100 mg/dL (NEG-TRACE) Urine Glucose (UA) Negative mg/dL (NEG) Urine Ketones (Stick) Negative mg/dL (NEG) Urine Blood Large (NEG) Urine Nitrite Negative (NEG) Urine Bilirubin Negative (NEG) Urine Urobilinogen Dipstick 0.2 mg/dL (0.2 mg/dL) Urine Leukocyte Esterase Large (NEG) Urine RBC 20-40 /HPF (0-2) Urine WBC Tntc /HPF (0-4) Urine Squamous Epithelial Cells Few /LPF Urine Bacteria 0 /HPF (0-FEW) White Blood Count 6.3 x10^3/uL (4.0-11.0) Red Blood Count 3.55 x10^6/uL (3.50-5.40) Hemoglobin 10.8 g/dL (12.0-15.5) L Hematocrit 32.8 % (36.0-47.0) L Mean Corpuscular Volume 92 fL (79-100) Mean Corpuscular Hemoglobin 30 pg (25-35) Mean Corpuscular Hemoglobin Concent 33 g/dL (31-37) Red Cell Distribution Width 16.1 % (11.5-14.5) H Platelet Count 258 x10^3/uL (140-400) Neutrophils (%) (Auto) 59 % (31-73) Lymphocytes (%) (Auto) 28 % (24-48) Monocytes (%) (Auto) 8 % (0-9) Eosinophils (%) (Auto) 4 % (0-3) H Basophils (%) (Auto) 1 % (0-3) Neutrophils # (Auto) 3.7 x10^3uL (1.8-7.7) Lymphocytes # (Auto) 1.8 x10^3/uL (1.0-4.8) Monocytes # (Auto) 0.5 x10^3/uL (0.0-1.1) Eosinophils # (Auto) 0.2 x10^3/uL (0.0-0.7) Basophils # (Auto) 0.1 x10^3/uL (0.0-0.2) Sodium Level 141 mmol/L (136-145) Potassium Level 5.1 mmol/L (3.5-5.1) Chloride Level 105 mmol/L (98-107) Carbon Dioxide Level 29 mmol/L (21-32) Anion Gap 7 (6-14) Blood Urea Nitrogen 58 mg/dL (7-20) H Creatinine 3.6 mg/dL (0.6-1.0) H Estimated GFR (Cockcroft-Gault) 12.4 Glucose Level 179 mg/dL (70-99) H Lactic Acid Level 0.8 mmol/L (0.4-2.0) Calcium Level 9.4 mg/dL (8.5-10.1) Magnesium Level 2.2 mg/dL (1.8-2.4) Total Bilirubin 0.3 mg/dL (0.2-1.0) Direct Bilirubin 0.1 mg/dL (0.0-0.2) Aspartate Amino Transferase (AST) 13 U/L (15-37) L Alanine Aminotransferase (ALT) 16 U/L (14-59) Alkaline Phosphatase 129 U/L (46-116) H Creatine Kinase 38 U/L (26-192) Creatine Kinase MB (Mass) < 0.5 ng/mL (0.0-3.6) Creatine Kinase MB Relative Index 1.3 % (0-4) Troponin I Quantitative < 0.017 ng/mL (0.000-0.055) [id number]-Type Natriuretic Peptide 893 pg/mL (0-124) H Total Protein 9.3 g/dL (6.4-8.2) H Albumin 3.3 g/dL (3.4-5.0) L Lipase 128 U/L (73-393) Thyroid Stimulating Hormone (TSH) 6.403 uIU/mL (0.358-3.74) H Laboratory Tests 06/10/17 10:50 Laboratory Tests 06/10/17 10:50 EKG EKG EKG shows sinus rhythm with rate of [address] elevations appreciated , T-wave inversions in aVL noted, left axis deviation noted, QTC 459 ms, as interpreted by me. EKG similar to one performed on April 28, 2017 Radiology/Procedures Radiology/Procedures [] Impressions: UTI Course & Med Decision Making Course & Med Decision Making Pertinent Labs and Imaging studies reviewed. (See chart for details) Labs show a UTI. She received 1 g Rocephin and being discharged home. She's being discharged on amoxicillin to 50 mg every 8 hours for next 10 days. Her daughters agreeable plan there is stable condition this time. They're to follow- up with cardiology and urology at [facility] had appointments made. Return precautions given. Dragon Disclaimer Dragon Disclaimer This electronic medical record was generated, in whole or in part, using a voice recognition dictation system. Departure Departure Impression: Primary Impression: UTI (urinary tract infection) Condition: STABLE Referrals: LISA CALHOUN (PCP) Patient Instructions: Urinary Tract Infection Additional Instructions: You have a bladder infection and the rescue labs do not show any acute abnormality's. Your being discharged home with Augmentin 250 mg every 8 hours for next 10 days. Please follow-up to urologist and district resource officer. Return the ER if you have severe weakness, high fevers, uncontrolled nausea vomiting, or any other concerns. Problem Qualifiers Primary Impression: UTI (urinary tract infection) Urinary tract infection type: acute cystitis Hematuria presence: without hematuria Qualified Codes: N30.00 - Acute cystitis without hematuria STEPHANIE MERLOS MD Jun 10, 2017 10:08
[2017-06-10 10:50] LABS: BILIRUBIN,URINE NEGATIVE (NEG); GLUCOSE,URINE NEGATIVE (NEG); NITRITE,URINE NEGATIVE (NEG); PROTEIN,URINE 100 mg/dL (NEG-TRACE); UROBILINOGEN,URINE 0.2 mg/dL (0.2 mg/dL)
--- NOTE | 2017-06-10 10:54 | RAD ---
Indication generalized weakness. Protocol study. A single view of the chest was obtained and is compared to an examination 03/25/2017. Heart size is at the upper limits of normal but not changed. There is no congestive heart failure. Somewhat tortuous thoracic aorta is noted also unchanged. An acute parenchymal infiltrate in either lung is not seen. Significant pleural fluid is not present. There has not been a significant change compared to the prior study. Postoperative changes are noted. IMPRESSION: No acute finding apparent in the chest
--- NOTE | 2017-06-10 10:58 | EKG ---
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
[2017-06-10 11:16] LABS: BASO # 0.1 x10^3/uL (0.0-0.2); BASO % 1 % (0-3); EOS % 4 % (0-3); HEMATOCRIT 32.8 % (36.0-47.0); HEMOGLOBIN 10.8 g/dL (12.0-15.5); LYMPH # 1.8 x10^3/uL (1.0-4.8); LYMPH % 28 % (24-48); MEAN CORPUSCULAR HEMOGLOBIN 30 pg (25-35); MEAN CORPUSCULAR HGB CONC 33 g/dL (31-37); MEAN CORPUSCULAR VOLUME 92 fL (79-100); MONO % 8 % (0-9); NEUT % 59 % (31-73); PLATELET COUNT 258 x10^3/uL (140-400); RED BLOOD COUNT 3.55 x10^6/uL (3.50-5.40); RED CELL DISTRIBUTION WIDTH 16.1 % (11.5-14.5); WHITE BLOOD COUNT 6.3 x10^3/uL (4.0-11.0)
[2017-06-10 11:26] LABS: RBC,URINE 20-40 /HPF (0-2)
[2017-06-10 11:27] LABS: BACTERIA,URINE 0 /HPF (0-FEW); SQUAMOUS EPITHELIAL CELL,UR FEW /LPF; WBC,URINE TNTC /HPF (0-4)
[2017-06-10 11:28] LABS: CALCIUM 9.4 mg/dL (8.5-10.1); CREATININE 3.6 mg/dL (0.6-1.0); GFR 12.4; POTASSIUM 5.1 mmol/L (3.5-5.1)
[2017-06-10 11:33] LABS: ALBUMIN 3.3 g/dL (3.4-5.0); DIRECT BILIRUBIN 0.1 mg/dL (0.0-0.2); MAGNESIUM 2.2 mg/dL (1.8-2.4); TOTAL BILIRUBIN 0.3 mg/dL (0.2-1.0); TOTAL PROTEIN 9.3 g/dL (6.4-8.2)
[2017-06-10 11:45] LABS: CKMB MASS < 0.5 ng/mL (0.0-3.6); CREATINE KINASE 38 U/L (26-192)
[2017-06-10 13:08] VITALS: BP 153/72
== END 2017-06-10 13:10 | disposition home or self-care (01) ==
LOC: ER 09:59
DX: N39.0 Urinary tract infection, site not specified (principal); E78.00 Pure hypercholesterolemia, unspecified; I12.9 Hypertensive chronic kidney disease with stage 1 through stage 4 chronic kidney disease, or unspecified chronic kidney disease; E11.22 Type 2 diabetes mellitus with diabetic chronic kidney disease; N18.9 Chronic kidney disease, unspecified; I25.10 Atherosclerotic heart disease of native coronary artery without angina pectoris; Z87.440 Personal history of urinary (tract) infections; Z95.1 Presence of aortocoronary bypass graft; Z95.5 Presence of coronary angioplasty implant and graft; Z91.040 Latex allergy status
CPT/HCPCS: 36415; 71010; 80048; 80076; 81001; 82553; 83605; 83690; 83735; 83880; 84443; 84484; 85025; 87086; 93005; 96365; 99285; J0690

== ENCOUNTER 2017-09-29 07:02 | Emergency (ER) | payer MEDICARE ==
[2017-09-29 07:45] LABS: ADD MAN DIFF? NO
[2017-09-29] MEDS: ONDANSETRON ODT 4 MG TAB.RAPDIS. PO ×2 (07:47)
[2017-09-29 08:00] LABS: BASO % 1 % (0-3); EOS # 0.2 x10^3/uL (0.0-0.7); EOS % 3 % (0-3); HEMATOCRIT 30.3 % (36.0-47.0); HEMOGLOBIN 9.9 g/dL (12.0-15.5); LYMPH # 1.8 x10^3/uL (1.0-4.8); LYMPH % 27 % (24-48); MEAN CORPUSCULAR HEMOGLOBIN 31 pg (25-35); MEAN CORPUSCULAR HGB CONC 33 g/dL (31-37); MEAN CORPUSCULAR VOLUME 93 fL (79-100); MONO # 0.7 x10^3/uL (0.0-1.1); MONO % 11 % (0-9); NEUT % 59 % (31-73); PLATELET COUNT 291 x10^3/uL (140-400); RED BLOOD COUNT 3.24 x10^6/uL (3.50-5.40); RED CELL DISTRIBUTION WIDTH 15.2 % (11.5-14.5); WHITE BLOOD COUNT 6.7 x10^3/uL (4.0-11.0)
[2017-09-29 08:01] LABS: ANION GAP 11 (6-14); BLOOD UREA NITROGEN 64 mg/dL (7-20); BUN/CREATININE RATIO 14 (6-20); CARBON DIOXIDE 24 mmol/L (21-32); CHLORIDE 101 mmol/L (98-107); CREATININE 4.5 mg/dL (0.6-1.0); GFR 9.5; GLUCOSE 193 mg/dL (70-99); POTASSIUM 4.7 mmol/L (3.5-5.1); SODIUM 136 mmol/L (136-145)
[2017-09-29 08:06] LABS: CLARITY,URINE TURBID; COLOR,URINE RED; GLUCOSE,URINE NEGATIVE (NEG); NITRITE,URINE NEGATIVE (NEG); PH,URINE 6.5
[2017-09-29 08:07] LABS: ALBUMIN 2.7 g/dL (3.4-5.0); ALBUMIN/GLOBULIN RATIO 0.5 (1.0-1.7); ALK PHOS 158 U/L (46-116); ALT (SGPT) 17 U/L (14-59); AST (SGOT) 18 U/L (15-37); TOTAL BILIRUBIN 0.3 mg/dL (0.2-1.0); TOTAL PROTEIN 8.7 g/dL (6.4-8.2)
[2017-09-29 08:24] LABS: RBC,URINE TNTC /HPF (0-2); WBC,URINE TNTC /HPF (0-4)
[2017-09-29 08:25] LABS: BACTERIA,URINE 0 /HPF (0-FEW)
== END 2017-09-29 09:10 | disposition home or self-care (01) ==
LOC: ER 07:02
DX: E11.22 Type 2 diabetes mellitus with diabetic chronic kidney disease (principal); N18.4 Chronic kidney disease, stage 4 (severe); I25.10 Atherosclerotic heart disease of native coronary artery without angina pectoris; I13.10 Hypertensive heart and chronic kidney disease without heart failure, with stage 1 through stage 4 chronic kidney disease, or unspecified chronic kidney disease; E78.00 Pure hypercholesterolemia, unspecified; R11.2 Nausea with vomiting, unspecified; K59.00 Constipation, unspecified; Z95.1 Presence of aortocoronary bypass graft; Z91.040 Latex allergy status
CPT/HCPCS: 36415; 80053; 81001; 85025; 87086; 87186; 99284; Q0162

== ENCOUNTER → 2017-11-02 | Day surgery (SDC) | payer MEDICARE ==
[~2017-11-02] MED LIST changes: +0.9 % SODIUM CHLORIDE 50 ML VIAL. IJ; -ASCO500T2 PO; -ASPI-482 PO; -CARV3.122 PO; -CEFD300C PO; -CEFP100T PO; -CEPH-263 PO; -CEPH-264 PO; -CEPH500T PO; -CIPR250T30 PO; -CIPR500T PO; -CIPR500T94 PO; +DEXAMETHASONE SOD PHOS 20 MG/5 ML VIAL.; -FERR140T2 PO; -FERR325T58 PO; -FLUC100T7 PO; -INSU100C4 SQ; -INSU100I13 SQ; +LIDOCAINE 1% PF 2 ML VIAL. ID; +LIDOCAINE 2% JELLY 6ML IN APPLICATOR.; +MORPHINE SULFATE 2 MG/ML DISP.SYRIN. IV; -NITR100C PO; -NITR100C62 PO; -NITR50CA PO; +ONDANSETRON PF 4 MG/2 ML VIAL.; +ONDANSETRON PF 4 MG/2 ML VIAL. IV; -OXYC-323 PO; -POLY17PO29 PO; +PROCHLORPERAZINE 10 MG/2 ML VIAL. IV; +PROPOFOL 20 ML IV; +SEVOFLURANE 31 TO 60 MINUTES. IH; -SIMV40TA3 PO; -SODI650T PO; -SULF1TAB24 PO; +ceFAZolin 2GM PREMIX 2 GM/50 ML BAG IV; +fentaNYL PF VIAL 100 MCG/2 ML VIAL; +fentaNYL PF VIAL 100 MCG/2 ML VIAL IV
[2017-11-02] MEDS: IV RINGERS,LACTATED 1000ML 1,000 ML IV (13:15)
[2017-11-02] MEDS: IOHEXOL 300 MG/ML 100ML VIAL. (13:52)
[2017-11-02] MEDS: SCOPOLAMINE 1.5MG PATCH. TD (14:13)
[2017-11-02 16:01] LABS: POC GLUCOSE 109 mg/dL (70-99)
== END ==
LOC: SURG 12:10
DX: N13.30 Unspecified hydronephrosis (principal); N31.9 Neuromuscular dysfunction of bladder, unspecified; E11.22 Type 2 diabetes mellitus with diabetic chronic kidney disease; I12.9 Hypertensive chronic kidney disease with stage 1 through stage 4 chronic kidney disease, or unspecified chronic kidney disease; N18.9 Chronic kidney disease, unspecified; I25.10 Atherosclerotic heart disease of native coronary artery without angina pectoris; Z79.4 Long term (current) use of insulin; Z91.040 Latex allergy status; Z87.440 Personal history of urinary (tract) infections; Z98.42 Cataract extraction status, left eye; Z98.41 Cataract extraction status, right eye; Z95.1 Presence of aortocoronary bypass graft; Z85.038 Personal history of other malignant neoplasm of large intestine; E66.9 Obesity, unspecified
CPT/HCPCS: 52332; 76000; 82962; C1769; C2617; J0690; J1100; J2405; J2704; J3010; Q9967

== ENCOUNTER 2018-01-03 07:18 | Emergency (ER) | payer MEDICARE ==
[2018-01-03 07:53] LABS: BILIRUBIN,URINE NEGATIVE (NEG); CLARITY,URINE TURBID; COLOR,URINE RED; GLUCOSE,URINE NEGATIVE (NEG); PH,URINE 6.5; PROTEIN,URINE >=300 mg/dL (NEG-TRACE)
[2018-01-03 08:13] LABS: BACTERIA,URINE MANY /HPF (0-FEW); RBC,URINE TNTC /HPF (0-2); WBC,URINE TNTC /HPF (0-4)
[2018-01-03 08:57] LABS: ADD MAN DIFF? NO
[2018-01-03 09:06] LABS: BASO % 1 % (0-3); EOS # 0.1 x10^3/uL (0.0-0.7); EOS % 2 % (0-3); HEMOGLOBIN 9.1 g/dL (12.0-15.5); LYMPH # 1.2 x10^3/uL (1.0-4.8); LYMPH % 23 % (24-48); MEAN CORPUSCULAR HEMOGLOBIN 30 pg (25-35); MEAN CORPUSCULAR HGB CONC 33 g/dL (31-37); MEAN CORPUSCULAR VOLUME 93 fL (79-100); MONO # 0.5 x10^3/uL (0.0-1.1); MONO % 9 % (0-9); NEUT # 3.4 x10^3uL (1.8-7.7); NEUT % 65 % (31-73); PLATELET COUNT 272 x10^3/uL (140-400); RED BLOOD COUNT 3.03 x10^6/uL (3.50-5.40); RED CELL DISTRIBUTION WIDTH 15.4 % (11.5-14.5); WHITE BLOOD COUNT 5.2 x10^3/uL (4.0-11.0)
[2018-01-03 09:29] LABS: ANION GAP 14 (6-14); BLOOD UREA NITROGEN 83 mg/dL (7-20); BUN/CREATININE RATIO 14 (6-20); CALCIUM 8.4 mg/dL (8.5-10.1); CARBON DIOXIDE 24 mmol/L (21-32); CHLORIDE 102 mmol/L (98-107); CREATININE 5.9 mg/dL (0.6-1.0); GLUCOSE 195 mg/dL (70-99); SODIUM 140 mmol/L (136-145)
[2018-01-03 09:30] LABS: ALBUMIN 2.6 g/dL (3.4-5.0); ALBUMIN/GLOBULIN RATIO 0.4 (1.0-1.7); ALK PHOS 109 U/L (46-116); ALT (SGPT) 11 U/L (14-59); AST (SGOT) 10 U/L (15-37); MAGNESIUM 2.3 mg/dL (1.8-2.4); PHOSPHORUS 6.6 mg/dL (2.6-4.7); TOTAL BILIRUBIN 0.3 mg/dL (0.2-1.0); TOTAL PROTEIN 8.6 g/dL (6.4-8.2)
[2018-01-03 09:38] LABS: TROPONINI < 0.017 ng/mL (0.000-0.055)
[2018-01-03 09:44] LABS: THYROID STIM HORMONE (TSH) 5.001 uIU/mL (0.358-3.74)
[2018-01-03 09:44] LABS: FREE T4 1.02 ng/dL (0.76-1.46)
[2018-01-03 09:56] LABS: CKMB MASS < 0.5 ng/mL (0.0-3.6); CREATINE KINASE 20 U/L (26-192)
== END 2018-01-03 10:11 | disposition home or self-care (01) ==
LOC: ER 07:18
DX: R53.1 Weakness (principal); N39.0 Urinary tract infection, site not specified; E78.00 Pure hypercholesterolemia, unspecified; I25.10 Atherosclerotic heart disease of native coronary artery without angina pectoris; E11.22 Type 2 diabetes mellitus with diabetic chronic kidney disease; I12.9 Hypertensive chronic kidney disease with stage 1 through stage 4 chronic kidney disease, or unspecified chronic kidney disease; N18.4 Chronic kidney disease, stage 4 (severe); Z91.041 Radiographic dye allergy status; Z91.040 Latex allergy status
CPT/HCPCS: 36415; 80053; 81001; 82553; 83735; 84100; 84439; 84443; 84484; 85025; 87086; 93005; 99285-25

== ENCOUNTER 2018-01-04 08:15 | Emergency (ER) | payer MEDICARE ==
[2018-01-04] MEDS: IPRATRPIUM/ALBUTEROL 0.5/2.5MG 3 ML NEBU. NEB (08:45)
[2018-01-04 09:20] LABS: ADD MAN DIFF? NO
[2018-01-04 09:25] LABS: BASO # 0.1 x10^3/uL (0.0-0.2); BASO % 1 % (0-3); EOS # 0.1 x10^3/uL (0.0-0.7); EOS % 2 % (0-3); HEMATOCRIT 27.5 % (36.0-47.0); HEMOGLOBIN 9.1 g/dL (12.0-15.5); LYMPH # 1.8 x10^3/uL (1.0-4.8); LYMPH % 32 % (24-48); MEAN CORPUSCULAR HEMOGLOBIN 30 pg (25-35); MEAN CORPUSCULAR HGB CONC 33 g/dL (31-37); MEAN CORPUSCULAR VOLUME 91 fL (79-100); MONO # 0.7 x10^3/uL (0.0-1.1); MONO % 12 % (0-9); NEUT # 3.1 x10^3uL (1.8-7.7); NEUT % 54 % (31-73); PLATELET COUNT 282 x10^3/uL (140-400); RED BLOOD COUNT 3.01 x10^6/uL (3.50-5.40); RED CELL DISTRIBUTION WIDTH 15.5 % (11.5-14.5); WHITE BLOOD COUNT 5.7 x10^3/uL (4.0-11.0)
[2018-01-04 09:38] LABS: INR 1.1 (0.8-1.1); PROTHROMBIN TIME PATIENT 13.9 SEC (11.7-14.0)
[2018-01-04 09:40] LABS: ANION GAP 16 (6-14); BLOOD UREA NITROGEN 85 mg/dL (7-20); BUN/CREATININE RATIO 14 (6-20); CALCIUM 8.3 mg/dL (8.5-10.1); CARBON DIOXIDE 23 mmol/L (21-32); CHLORIDE 102 mmol/L (98-107); CREATININE 6.1 mg/dL (0.6-1.0); GFR 6.7; GLUCOSE 136 mg/dL (70-99); POTASSIUM 4.5 mmol/L (3.5-5.1); SODIUM 141 mmol/L (136-145)
[2018-01-04 09:47] LABS: ALBUMIN 2.7 g/dL (3.4-5.0); ALBUMIN/GLOBULIN RATIO 0.5 (1.0-1.7); ALK PHOS 118 U/L (46-116); ALT (SGPT) 12 U/L (14-59); AST (SGOT) 8 U/L (15-37); LIPASE 98 U/L (73-393); MAGNESIUM 2.1 mg/dL (1.8-2.4); TOTAL BILIRUBIN 0.3 mg/dL (0.2-1.0); TOTAL PROTEIN 8.1 g/dL (6.4-8.2)
[2018-01-04 09:48] LABS: TROPONINI < 0.017 ng/mL (0.000-0.055)
[2018-01-04 09:52] LABS: THYROID STIM HORMONE (TSH) 4.762 uIU/mL (0.358-3.74)
[2018-01-04 09:58] LABS: NT-PRO BNP 1474 pg/mL (0-449)
[2018-01-04 09:58] LABS: CKMB MASS < 0.5 ng/mL (0.0-3.6); CREATINE KINASE 20 U/L (26-192)
[2018-01-04 10:23] LABS: BILIRUBIN,URINE NEGATIVE (NEG); CLARITY,URINE TURBID; GLUCOSE,URINE NEGATIVE (NEG); NITRITE,URINE NEGATIVE (NEG); PH,URINE 7.5; PROTEIN,URINE 100 mg/dL (NEG-TRACE); UROBILINOGEN,URINE 0.2 mg/dL (0.2 mg/dL)
[2018-01-04 10:28] LABS: BARBITURATES NEG (NEG); BENZODIAZEPINES NEG (NEG); CANNABINOIDS NEG (NEG); COCAINE NEG (NEG); METHADONE NEG (NEG); OPIATES NEG (NEG); PHENCYCLIDINE NEG (NEG)
[2018-01-04 10:29] LABS: AMPHETAMINE/METHAMPHETAMINE NEG (NEG); ETHANOL, URINE NEG (NEG)
[2018-01-04 10:34] LABS: RBC,URINE TNTC /HPF (0-2); WBC,URINE TNTC /HPF (0-4)
[2018-01-04 10:40] LABS: BACTERIA,URINE MODERATE /HPF (0-FEW)
[2018-01-04 10:41] LABS: COLOR,URINE PINK
[2018-01-05] MEDS ORDERED: HEPARIN for IV BOLUS 10,000 UNIT/10 ML VIAL. (13:57)
[2018-01-05] MEDS ORDERED: LIDOCAINE 2%/EPI 1:100,000 20 ML VIAL. (13:57)
== END 2018-01-04 11:11 | disposition home or self-care (01) ==
LOC: ER 11:11
DX: R06.02 Shortness of breath (principal); I12.9 Hypertensive chronic kidney disease with stage 1 through stage 4 chronic kidney disease, or unspecified chronic kidney disease; N18.9 Chronic kidney disease, unspecified; E11.22 Type 2 diabetes mellitus with diabetic chronic kidney disease; E78.00 Pure hypercholesterolemia, unspecified; Z87.440 Personal history of urinary (tract) infections; E87.5 Hyperkalemia; Z95.5 Presence of coronary angioplasty implant and graft; Z95.1 Presence of aortocoronary bypass graft; Z91.040 Latex allergy status; Z91.041 Radiographic dye allergy status
CPT/HCPCS: 36415; 71045; 80053; 80307; 81001; 82553; 83690; 83735; 83880; 84443; 84484; 85025; 85610; 87086; 93005; 94640; 99285-25; J7620

== ENCOUNTER 2018-01-31 06:30 | Emergency (ER) | payer MEDICARE ==
[2018-01-31 08:02] LABS: CLARITY,URINE TURBID; COLOR,URINE RED; GLUCOSE,URINE NEGATIVE (NEG); NITRITE,URINE POSITIVE (NEG); PROTEIN,URINE >=300 mg/dL (NEG-TRACE)
[2018-01-31 08:28] LABS: ADD MAN DIFF? NO
[2018-01-31 08:30] LABS: BACTERIA,URINE 0 /HPF (0-FEW); RBC,URINE TNTC /HPF (0-2); SQUAMOUS EPITHELIAL CELL,UR FEW /LPF; WBC,URINE TNTC /HPF (0-4)
[2018-01-31 08:36] LABS: BASO # 0.1 x10^3/uL (0.0-0.2); BASO % 1 % (0-3); EOS # 0.1 x10^3/uL (0.0-0.7); EOS % 1 % (0-3); HEMATOCRIT 25.8 % (36.0-47.0); HEMOGLOBIN 8.2 g/dL (12.0-15.5); LYMPH # 1.7 x10^3/uL (1.0-4.8); LYMPH % 23 % (24-48); MEAN CORPUSCULAR HEMOGLOBIN 30 pg (25-35); MEAN CORPUSCULAR HGB CONC 32 g/dL (31-37); MEAN CORPUSCULAR VOLUME 95 fL (79-100); MONO # 0.7 x10^3/uL (0.0-1.1); MONO % 9 % (0-9); NEUT % 67 % (31-73); PLATELET COUNT 263 x10^3/uL (140-400); RED BLOOD COUNT 2.71 x10^6/uL (3.50-5.40); RED CELL DISTRIBUTION WIDTH 17.7 % (11.5-14.5); WHITE BLOOD COUNT 7.5 x10^3/uL (4.0-11.0)
[2018-01-31 08:39] LABS: ANION GAP 11 (6-14); BLOOD UREA NITROGEN 40 mg/dL (7-20); BUN/CREATININE RATIO 8 (6-20); CALCIUM 8.8 mg/dL (8.5-10.1); CARBON DIOXIDE 23 mmol/L (21-32); CHLORIDE 102 mmol/L (98-107); CREATININE 5.1 mg/dL (0.6-1.0); GFR 8.2; GLUCOSE 171 mg/dL (70-99); POTASSIUM 5.1 mmol/L (3.5-5.1); SODIUM 136 mmol/L (136-145)
[2018-01-31 08:44] LABS: ALBUMIN 2.3 g/dL (3.4-5.0); ALBUMIN/GLOBULIN RATIO 0.4 (1.0-1.7); ALK PHOS 132 U/L (46-116); ALT (SGPT) 11 U/L (14-59); AST (SGOT) 12 U/L (15-37); LIPASE 65 U/L (73-393); TOTAL BILIRUBIN 0.5 mg/dL (0.2-1.0); TOTAL PROTEIN 7.8 g/dL (6.4-8.2)
[2018-01-31 08:46] LABS: INR 1.1 (0.8-1.1)
[2018-01-31 08:47] LABS: LACTIC ACID 1.2 mmol/L (0.4-2.0)
[2018-01-31] MEDS: FOSFOMYCIN TROMETHAMINE 3 GM PACKET PO (09:34)
== END 2018-01-31 09:49 | disposition home or self-care (01) ==
LOC: ER 06:30
DX: R53.1 Weakness (principal); N39.0 Urinary tract infection, site not specified; I12.0 Hypertensive chronic kidney disease with stage 5 chronic kidney disease or end stage renal disease; E11.22 Type 2 diabetes mellitus with diabetic chronic kidney disease; N18.6 End stage renal disease; Z99.2 Dependence on renal dialysis; E78.00 Pure hypercholesterolemia, unspecified; I25.10 Atherosclerotic heart disease of native coronary artery without angina pectoris; Z91.041 Radiographic dye allergy status; Z91.040 Latex allergy status
CPT/HCPCS: 36415; 80053; 81001; 83605; 83690; 85025; 85610; 87086; 93005; 99285-25

== ENCOUNTER 2018-07-19 12:16 | Observation (INO) | payer MEDICARE ==
[~2018-07-19] VITALS: Ht 162.6 cm; Wt 59.6 kg
[~2018-07-19 12:16] MED LIST changes: -0.9 % SODIUM CHLORIDE 50 ML VIAL. IJ; +ASCO500T2 PO; +ASPI-482 PO; +CALC667T PO; +CARV3.122 PO; +CEFD300C PO; +CEFP100T PO; +CEPH-263 PO; +CEPH-264 PO; +CEPH500T PO; +CIPR250T30 PO; +CIPR500T PO; +CIPR500T94 PO; -DEXAMETHASONE SOD PHOS 20 MG/5 ML VIAL.; +ESTR42.53 VG; +FERR140T3 PO; +FERR325T58 PO; +FERR325T72 PO; +FLUC100T7 PO; +INSU100C4 SQ; +INSU100I11 SQ; +INSU100I13 SQ; +LACT1CAP19 PO; +LEVO500T8 PO; -LIDOCAINE 1% PF 2 ML VIAL. ID; -LIDOCAINE 2% JELLY 6ML IN APPLICATOR.; +MIRA25TA PO; +MIRA50TA PO; -MORPHINE SULFATE 2 MG/ML DISP.SYRIN. IV; +NITR100C PO; +NITR100C62 PO; +NITR50CA PO; +ONDA4TAB10 SL; -ONDANSETRON PF 4 MG/2 ML VIAL.; -ONDANSETRON PF 4 MG/2 ML VIAL. IV; +OXYC1TAB15 PO; +POLY17PO29 PO; +PROAIR RESPICL90 MCG IH; -PROCHLORPERAZINE 10 MG/2 ML VIAL. IV; -PROPOFOL 20 ML IV; -SEVOFLURANE 31 TO 60 MINUTES. IH; +SIMV40TA3 PO; +SODI650T PO; +SULF1TAB24 PO; -ceFAZolin 2GM PREMIX 2 GM/50 ML BAG IV; -fentaNYL PF VIAL 100 MCG/2 ML VIAL; -fentaNYL PF VIAL 100 MCG/2 ML VIAL IV
[2018-07-19] MEDS ORDERED: IV NORMAL SALINE 1000ML BAG 1,000 ML IV SCH (12:35)
--- NOTE | 2018-07-19 12:43 | PHYS DOC ---
Past Medical History Past Medical History: Arthritis, Diabetes-Type II, High Cholesterol, Hypertension, Renal Disease, Renal Failure, UTI Additional Past Medical Histor: hyperkalemia, bladder retention, urinary stents Past Surgical History: Coronary Bypass Surgery Additional Past Surgical Histo: benign tumor removed from colon, bladder stent removed and reinserted Alcohol Use: None Drug Use: None Adult General Chief Complaint Chief Complaint: WEAKNESS/GENERALIZED HPI HPI Patient is a 78-year-old female who is very familiar to me from several prior ER visits, who presents to the emergency department for evaluation of generalized weakness. She just had her dialysis this morning. She is noted to be hypotensive, but states her blood pressure normally runs low after dialysis especially. She is not having any focal pain or focal weakness. She just feels generally weak and has a poor appetite. She has been seen in this emergency department multiple times in the past for similar vague generalized complaints. She does have a diabetic foot ulcer on her left medial foot, which is being cared for by her online advertising manager whom she last or yesterday. She has not had any vomiting, fevers, chills, diarrhea, chest pain, shortness of breath, cough, headache, or mental status changes. There are no alleviating or exacerbating factors to the patient's symptoms. Review of Systems Review of Systems Constitutional: Denies fever or chills [] Eyes: Denies change in visual acuity, redness, or eye pain [] HENT: Denies nasal congestion or sore throat [] Respiratory: Denies cough or shortness of breath [] Cardiovascular: The patient denies any shortness of breath, chest pain, palpitations, or orthopnea [] GI: Denies abdominal pain, nausea, vomiting, bloody stools or diarrhea [] : Denies dysuria or hematuria [] Musculoskeletal: Denies back pain or joint pain [] Integument: Denies rash or skin lesions [] Neurologic: Denies headache, focal weakness or sensory changes [] Endocrine: Denies polyuria or polydipsia [] All other systems were reviewed and found to be within normal limits, except as documented in this note. Current Medications Current Medications Current Medications Medications (Trade) Dose Ordered Sig/Claudette Start Time Stop Time Status Last Admin Dose Admin Sodium Chloride 1,000 ml @ 100 mls/hr Q10H 07/19/18 12:35 07/19/18 22:34 07/19/18 13:09 100 MLS/HR Allergies Allergies Allergies Coded Allergies Type Severity Reaction Last Updated Verified latex Allergy Intermediate Rash 12/30/17 Yes I S O L A T I O N *CONTACT* Allergy Unknown 12/30/17 Yes Physical Exam Physical Exam PHYSICAL EXAM: CONSTITUTIONAL: Well developed, well nourished and nontoxic appearing HEAD: normocephalic, atraumatic EENT: PERRL, EOMI. Conjunctivae normal color, sclerae non-icteric; moist mucous membranes. NECK: Supple, non-tender; no meningismus. LUNGS: Lungs CTA, breathing even and unlabored. Normal air movement. HEART: Regular rate and rhythm, no murmur CHEST: No deformity; non-tender ABDOMEN: The abdomen is soft, and non-tender, no masses or bruits. EXTREM: Normal ROM; no deformity, no calf tenderness. Normal pulses palpable in all extremities. There is no pedal edema. There is a wound on the medial aspect of the left foot, with dressing in place, without any surrounding warmth or erythema or tenderness. SKIN: No rash; no diaphoresis NEURO: Alert; normal speech and cognition; CN's grossly intact; strength grossly intact without focal deficit. BACK: No CVA TTP. Current Patient Data Vital Signs Vital Signs Date Time Temp Pulse Resp B/P (MAP) Pulse Ox O2 Delivery O2 Flow Rate FiO2 07/19/18 12:24 98.3 106 16 88/46 (60) 96 Room Air 98.3 Lab Values Laboratory Tests Test 07/19/18 13:10 07/19/18 13:32 White Blood Count 7.7 x10^3/uL (4.0-11.0) Red Blood Count 3.52 x10^6/uL (3.50-5.40) Hemoglobin 11.1 g/dL (12.0-15.5) L Hematocrit 33.2 % (36.0-47.0) L Mean Corpuscular Volume 94 fL (79-100) Mean Corpuscular Hemoglobin 31 pg (25-35) Mean Corpuscular Hemoglobin Concent 33 g/dL (31-37) Red Cell Distribution Width 16.6 % (11.5-14.5) H Platelet Count 158 x10^3/uL (140-400) Neutrophils (%) (Auto) 82 % (31-73) H Lymphocytes (%) (Auto) 9 % (24-48) L Monocytes (%) (Auto) 8 % (0-9) Eosinophils (%) (Auto) 1 % (0-3) Basophils (%) (Auto) 1 % (0-3) Neutrophils # (Auto) 6.3 x10^3uL (1.8-7.7) Lymphocytes # (Auto) 0.7 x10^3/uL (1.0-4.8) L Monocytes # (Auto) 0.6 x10^3/uL (0.0-1.1) Eosinophils # (Auto) 0.0 x10^3/uL (0.0-0.7) Basophils # (Auto) 0.1 x10^3/uL (0.0-0.2) Sodium Level 136 mmol/L (136-145) Potassium Level 3.5 mmol/L (3.5-5.1) Chloride Level 96 mmol/L (98-107) L Carbon Dioxide Level 33 mmol/L (21-32) H Anion Gap 7 (6-14) Blood Urea Nitrogen 11 mg/dL (7-20) Creatinine 3.1 mg/dL (0.6-1.0) H Estimated GFR (Cockcroft-Gault) 14.6 BUN/Creatinine Ratio 4 (6-20) L Glucose Level 201 mg/dL (70-99) H Lactic Acid Level 1.8 mmol/L (0.4-2.0) Calcium Level 8.7 mg/dL (8.5-10.1) Magnesium Level 1.7 mg/dL (1.8-2.4) L Total Bilirubin 0.7 mg/dL (0.2-1.0) Aspartate Amino Transferase (AST) 13 U/L (15-37) L Alanine Aminotransferase (ALT) 7 U/L (14-59) L Alkaline Phosphatase 152 U/L (46-116) H Troponin I Quantitative < 0.017 ng/mL (0.000-0.055) Total Protein 8.5 g/dL (6.4-8.2) H Albumin 2.6 g/dL (3.4-5.0) L Albumin/Globulin Ratio 0.4 (1.0-1.7) L Urine Collection Type U cath Urine Color Yellow Urine Clarity Cloudy Urine pH 8.0 Urine Specific [place] 1.010 Urine Protein 100 mg/dL (NEG-TRACE) Urine Glucose (UA) mg/dL (NEG) Urine Ketones (Stick) Negative mg/dL (NEG) Urine Blood Moderate (NEG) Urine Nitrite Negative (NEG) Urine Bilirubin Negative (NEG) Urine Urobilinogen Dipstick 0.2 mg/dL (0.2 mg/dL) Urine Leukocyte Esterase Large (NEG) Urine RBC 3-5 /HPF (0-2) Urine WBC Tntc /HPF (0-4) Urine Squamous Epithelial Cells Few /LPF Urine Bacteria Moderate /HPF (0-FEW) Laboratory Tests 07/19/18 13:10 Laboratory Tests 07/19/18 13:10 EKG EKG [Normal sinus rhythm a rate of 1 1 bpm, left axis deviation, normal intervals, nonspecific ST/T changes] Radiology/Procedures Radiology/Procedures [] Course & Med Decision Making Course & Med Decision Making Pertinent Labs and Imaging studies reviewed. (See chart for details) [2:20 PM: The patient's blood pressure is improved to 105 systolic. She still feels weak. Her blood pressures are usually not this low on her prior visits. I discussed case with the hospitalist will admit the patient for further evaluation. The patient's last urine culture which grew a bacteria showed Klebsiella which was multidrug-resistant, sensitive only to carbepenems.] Dragon Disclaimer Dragon Disclaimer This electronic medical record was generated, in whole or in part, using a voice recognition dictation system. Departure Departure Impression: Primary Impression: UTI (lower urinary tract infection) Additional Impressions: Generalized weakness Hypertension ESRD (end stage renal disease) Disposition: ADMITTED INPATIENT Admitting Physician: David Ba Condition: STABLE Referrals: LISA CALHOUN (PCP) Problem Qualifiers DAKOTA WEISS MD Jul 19, 2018 12:43
[2018-07-19] MEDS ORDERED: IV NORMAL SALINE 500ML BAG 250 ML IV ONE (12:45)
--- NOTE | 2018-07-19 13:13 | EKG ---
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
[2018-07-19 13:18] LABS: BASO # 0.1 x10^3/uL (0.0-0.2); BASO % 1 % (0-3); EOS % 1 % (0-3); HEMATOCRIT 33.2 % (36.0-47.0); HEMOGLOBIN 11.1 g/dL (12.0-15.5); LYMPH # 0.7 x10^3/uL (1.0-4.8); LYMPH % 9 % (24-48); MEAN CORPUSCULAR HEMOGLOBIN 31 pg (25-35); MEAN CORPUSCULAR HGB CONC 33 g/dL (31-37); MEAN CORPUSCULAR VOLUME 94 fL (79-100); MONO # 0.6 x10^3/uL (0.0-1.1); MONO % 8 % (0-9); NEUT # 6.3 x10^3uL (1.8-7.7); NEUT % 82 % (31-73); PLATELET COUNT 158 x10^3/uL (140-400); RED BLOOD COUNT 3.52 x10^6/uL (3.50-5.40); RED CELL DISTRIBUTION WIDTH 16.6 % (11.5-14.5); WHITE BLOOD COUNT 7.7 x10^3/uL (4.0-11.0)
[2018-07-19 13:25] LABS: CALCIUM 8.7 mg/dL (8.5-10.1); CREATININE 3.1 mg/dL (0.6-1.0); GFR 14.6; POTASSIUM 3.5 mmol/L (3.5-5.1)
[2018-07-19 13:31] LABS: ALBUMIN 2.6 g/dL (3.4-5.0); ALBUMIN/GLOBULIN RATIO 0.4 (1.0-1.7); MAGNESIUM 1.7 mg/dL (1.8-2.4); TOTAL BILIRUBIN 0.7 mg/dL (0.2-1.0); TOTAL PROTEIN 8.5 g/dL (6.4-8.2)
[2018-07-19 13:42] LABS: BILIRUBIN,URINE NEGATIVE (NEG); CLARITY,URINE CLOUDY; COLOR,URINE YELLOW; NITRITE,URINE NEGATIVE (NEG); PROTEIN,URINE 100 mg/dL (NEG-TRACE); UROBILINOGEN,URINE 0.2 mg/dL (0.2 mg/dL)
[2018-07-19 14:02] LABS: WBC,URINE TNTC /HPF (0-4)
[2018-07-19 14:03] LABS: BACTERIA,URINE MODERATE /HPF (0-FEW); SQUAMOUS EPITHELIAL CELL,UR FEW /LPF
[2018-07-19] MEDS ORDERED: ERTAPENEM 1GM IVPB (GENERIC) 50 ML IV ONE (14:30)
[2018-07-19] MEDS ORDERED: MEROPENEM 500 MG in IV NORMAL SALINE 50ML 50 ML IV ONE (14:30)
[2018-07-19] MEDS ORDERED: [UNRECOGNIZED DRUG - OTHER] TOP (16:13)
[2018-07-19] MEDS ORDERED: INSU100I13 SQ (16:13)
[2018-07-19] MEDS ORDERED: [UNRECOGNIZED DRUG - OTHER] (16:13)
[2018-07-19] MEDS ORDERED: INSU100C4 SQ (16:13)
[2018-07-19] MEDS ORDERED: METH1TAB20 PO (16:13)
[2018-07-19 16:21] VITALS: BP 103/49
[2018-07-19 19:35] VITALS: BP 104/47
--- NOTE | 2018-07-19 19:36 | HP ---
ADMIT DATE: 07/19/2018 CHIEF COMPLAINT: Weakness. HISTORY OF PRESENT ILLNESS: The patient is a pleasant 78-year-old female who is well known to our service. We have admitted her numerous times over the past few years. Basically, she is now on dialysis and today when she was at dialysis, she developed generalized weakness. She was noted to be hypotensive with pressures into the 80s. She had some associated nausea. This was occurring for several minutes. They tried giving her some meds, but that did not seem to work. Described her symptoms as bothersome. While in the ER, she was noted to be somewhat septic with another urinary tract infection and in the past, her UTIs have all been very, very resistant to most antibiotics except for meropenem. We are going to go ahead admit the patient and consult ID and give her a PICC line, give her IV meropenem. PAST MEDICAL HISTORY: Diabetes, hypertension, end-stage renal disease on dialysis, sepsis, UTIs, hyperkalemia, bladder retention, urinary stents, coronary artery bypass surgery, colon polyps. ALLERGIES: LATEX. FAMILY HISTORY: Coronary artery disease. SOCIAL HISTORY: She does not drink, smoke or take drugs. MEDICATIONS: Reviewed, please refer to MRAD. She is on 8 home medications including simvastatin, aspirin, calcium, estradiol, NovoLog, Lantus and Renagel. REVIEW OF SYSTEMS: GENERAL: She complains of weakness. SKIN: No bruising, hair changes or rashes. EYES: No blurred, double or loss of vision. NOSE AND THROAT: No history of nosebleeds, hoarseness or sore throat. HEART: No history of palpitations, chest pain or shortness of breath on exertion. LUNGS: Denies cough, hemoptysis, wheezing or shortness of breath. GASTROINTESTINAL: Denies changes in appetite, nausea, vomiting, diarrhea or constipation. GENITOURINARY: No history of frequency, urgency, hesitancy or nocturia. NEUROLOGIC: Denies history of numbness, tingling, tremor or weakness. PSYCHIATRIC: No history of panic, anxiety or depression. ENDOCRINE: No history of heat or cold intolerance, polyuria or polydipsia. EXTREMITIES: Denies muscle weakness, joint pain, pain on walking or stiffness. PHYSICAL EXAMINATION: VITAL SIGNS: Temperature 99.7, pulse 100, respirations 24, blood pressure 104/49. GENERAL: She is awake, alert in the Emergency Room. Her daughter is present. HEART: Tachycardic, S1, S2. LUNGS: Clear to auscultation. ABDOMEN: Soft. Decreased bowel sounds. EXTREMITIES: The left arm has a graft. ENDOCRINE: No thyromegaly. LYMPHATICS: No cervical nodes. HEMATOPOIETIC: No bruising. NEUROLOGICAL: She is quite weak. PSYCHIATRIC: She is stable. LABORATORY DATA: White count 7, hemoglobin 12 and 11, platelets 158. Electrolytes: Sodium 136, potassium 3.5, chloride 96, bicarbonate 33, BUN 11, creatinine 3.1, glucose 201. AST and ALT are slightly low at 13 and 7 respectively. Alkaline phosphatase high at 152. Troponin 0. Albumin 2.6. Urinalysis, large amount of leukocyte esterase, too numerous to count white cells. ASSESSMENT AND PLAN: Urinary tract infection with probable sepsis and hypotension in an elderly female who has multiple comorbidities including end-stage renal disease, on dialysis. The patient has been admitted. We will consult Nephrology, consult Infectious Disease, place a PICC line, IV meropenem. Continue home medicines, cardiac monitoring, frequent labs. PROGNOSIS: Guarded. NIDIA SQUIRES DO DR: GABI/anthony JOB#: [id number] / [id number]
[2018-07-19] MEDS ORDERED: SIMVASTATIN 40 MG TABLET. PO SCH (23:00)
[2018-07-19] MEDS ORDERED: INSULIN GLARGINE 300 UNITS/3 ML INSULN.PEN. SQ SCH (23:00)
[2018-07-19 23:35] VITALS: BP 101/52
[2018-07-20 03:35] VITALS: BP 103/40
[2018-07-20 07:00] VITALS: BP 105/56
[2018-07-20] MEDS ORDERED: ASPIRIN ENTERIC COATED 81 MG TABLET.DR. PO SCH (08:00)
[2018-07-20] MEDS ORDERED: CALCIUM ACETATE 667 MG CAPSULE PO SCH (08:00)
[2018-07-20] MEDS ORDERED: INSULIN LISPRO 300 UNITS/3 ML INSULN.PEN. SQ SCH (08:00)
--- NOTE | 2018-07-20 08:55 | PDOC ---
Infectious Disease Note Subjective: Subjective Pt seen and examined [id number] ROS: ROS Negative except for above. Vital Signs: Vital Signs Vital Signs Date Time Temp Pulse Resp B/P (MAP) Pulse Ox O2 Delivery O2 Flow Rate FiO2 07/20/18 07:00 97.9 83 24 105/56 (72) 91 Room Air 97.9 Medications: Inpatient Meds: Current Medications Medications (Trade) Dose Ordered Sig/Claudette Start Time Stop Time Status Last Admin Dose Admin Aspirin (Ecotrin) 81 mg DAILY08 07/20/18 08:00 07/20/18 08:15 81 MG Calcium Acetate (Phoslo) 1,334 mg TIDWMEALS 07/20/18 08:00 07/20/18 08:15 1,334 MG Ertapenem 50 ml @ 100 mls/hr 1X ONCE 07/19/18 14:30 07/19/18 14:59 UNV Insulin Glargine (Lantus) 6 units QHS 07/19/18 23:00 07/19/18 22:31 6 UNITS Insulin Human Lispro (HumaLOG) 6 units TIDWMEALS 07/20/18 08:00 07/20/18 08:19 6 UNITS Meropenem 500 mg/ Sodium Chloride 50 ml @ 100 mls/hr 1X ONCE 07/19/18 14:30 07/19/18 14:59 DC 07/19/18 14:39 100 MLS/HR Simvastatin (Zocor) 40 mg QHS 07/19/18 23:00 07/19/18 22:29 40 MG Sodium Chloride 1,000 ml @ 100 mls/hr Q10H 07/19/18 12:35 07/19/18 22:34 DC 07/19/18 13:09 100 MLS/HR Labs: Lab Laboratory Tests Test 07/19/18 13:10 07/19/18 13:32 07/19/18 16:59 07/19/18 21:07 White Blood Count 7.7 x10^3/uL (4.0-11.0) Red Blood Count 3.52 x10^6/uL (3.50-5.40) Hemoglobin 11.1 g/dL (12.0-15.5) Hematocrit 33.2 % (36.0-47.0) Mean Corpuscular Volume 94 fL (79-100) Mean Corpuscular Hemoglobin 31 pg (25-35) Mean Corpuscular Hemoglobin Concent 33 g/dL (31-37) Red Cell Distribution Width 16.6 % (11.5-14.5) Platelet Count 158 x10^3/uL (140-400) Neutrophils (%) (Auto) 82 % (31-73) Lymphocytes (%) (Auto) 9 % (24-48) Monocytes (%) (Auto) 8 % (0-9) Eosinophils (%) (Auto) 1 % (0-3) Basophils (%) (Auto) 1 % (0-3) Neutrophils # (Auto) 6.3 x10^3uL (1.8-7.7) Lymphocytes # (Auto) 0.7 x10^3/uL (1.0-4.8) Monocytes # (Auto) 0.6 x10^3/uL (0.0-1.1) Eosinophils # (Auto) 0.0 x10^3/uL (0.0-0.7) Basophils # (Auto) 0.1 x10^3/uL (0.0-0.2) Sodium Level 136 mmol/L (136-145) Potassium Level 3.5 mmol/L (3.5-5.1) Chloride Level 96 mmol/L (98-107) Carbon Dioxide Level 33 mmol/L (21-32) Anion Gap 7 (6-14) Blood Urea Nitrogen 11 mg/dL (7-20) Creatinine 3.1 mg/dL (0.6-1.0) Estimated GFR (Cockcroft-Gault) 14.6 BUN/Creatinine Ratio 4 (6-20) Glucose Level 201 mg/dL (70-99) Lactic Acid Level 1.8 mmol/L (0.4-2.0) Calcium Level 8.7 mg/dL (8.5-10.1) Magnesium Level 1.7 mg/dL (1.8-2.4) Total Bilirubin 0.7 mg/dL (0.2-1.0) Aspartate Amino Transf (AST/SGOT) 13 U/L (15-37) Alanine Aminotransferase (ALT/SGPT) 7 U/L (14-59) Alkaline Phosphatase 152 U/L (46-116) Troponin I Quantitative < 0.017 ng/mL (0.000-0.055) Total Protein 8.5 g/dL (6.4-8.2) Albumin 2.6 g/dL (3.4-5.0) Albumin/Globulin Ratio 0.4 (1.0-1.7) Urine Collection Type U cath Urine Color Yellow Urine Clarity Cloudy Urine pH 8.0 Urine Specific [place] 1.010 Urine Protein 100 mg/dL (NEG-TRACE) Urine Glucose (UA) mg/dL (NEG) Urine Ketones (Stick) Negative mg/dL (NEG) Urine Blood Moderate (NEG) Urine Nitrite Negative (NEG) Urine Bilirubin Negative (NEG) Urine Urobilinogen Dipstick 0.2 mg/dL (0.2 mg/dL) Urine Leukocyte Esterase Large (NEG) Urine RBC 3-5 /HPF (0-2) Urine WBC Tntc /HPF (0-4) Urine Squamous Epithelial Cells Few /LPF Urine Bacteria Moderate /HPF (0-FEW) Glucose (Fingerstick) 190 mg/dL (70-99) 239 mg/dL (70-99) Test 07/20/18 07:17 Glucose (Fingerstick) 156 mg/dL (70-99) Objective: Assessment: Hypotension Pyuria h/o ESBL Lt foot wound ESRDon HD Plan: Plan of Care cont merrem, pt says feels better already so could be uti f/u urine c/s if febrile obtain bc f/u labs MARIA ESTHER Johnson MD Jul 20, 2018 08:55
--- NOTE | 2018-07-20 09:23 | CONS ---
DATE OF CONSULTATION: 07/20/2018 REFERRING PHYSICIAN: Dr. David Ba. REASON FOR CONSULTATION: Weakness and possible UTI. HISTORY OF PRESENT ILLNESS: A 78-year-old female well familiar to our service from previous admissions, last one was first week of June with a history of chronic kidney disease on hemodialysis through left upper extremity fistula, recurrent urinary tract infection as well as ESBL infection and ureteral stent, status post removal. She went to dialysis yesterday per routine, but then suddenly felt very tired and noticed no energy and decreased appetite. She barely ate toast in the last 24 hours. She continued to feel the same after her dialysis session, so presented to the ER. She was found to be hypotensive and temperature of 99.7. Urinalysis showed wbc's too numerous to count with large leukocyte esterase. Urine cultures are pending. Given her history, she was dosed with meropenem. Today, she is feeling much better and less fatigued. She is not sure if she really has an infection or not. She had an ulcer on the left side of the foot, which is followed by outside wound care center every 2 weeks. She undergoes packing. She also had a history of fall and has sustained a bruise on the lateral aspect of her left foot. No change. Denies any pain, redness, swelling, cough, shortness of breath, diarrhea, nausea, vomiting, headache, sore throat, difficulty swallowing, cough or shortness of breath. PAST MEDICAL HISTORY: ESBL infection, recurrent urinary tract infection, coronary artery disease, hypertension, hyperlipidemia, diabetes, peripheral neuropathy, chronic nonhealing left foot wound, CKD on hemodialysis through left upper extremity fistula, kidney stones and history of colon cancer. PAST SURGICAL HISTORY: Bilateral hydronephrosis, status post stent placement and removal, I and D of the left foot, cataract extraction, coronary artery bypass graft, colon resection and left and right ankle surgery. FAMILY HISTORY: Positive for diabetes. SOCIAL HISTORY: The patient lives alone at home. ALLERGIES: LATEX. CURRENT MEDICATION: Meropenem. Other medications are reviewed in MAR. REVIEW OF SYSTEMS: Negative except for above in the HPI. PHYSICAL EXAMINATION: GENERAL: The patient is sitting up in bed, alert, smiling, cooperative, in no acute distress. VITAL SIGNS: Temperature 97.9 and T-max 99.7, pulse 83, respiratory rate 24, blood pressure 105/56 and was low at 88/46 and oxygen saturation 91% on room air. HEENT: Normocephalic and atraumatic. Anicteric. Poor dentition. NECK: Supple. LUNGS: Clear. HEART: S1 and S2. ABDOMEN: Soft, nontender and nondistended. EXTREMITIES: No edema and no cyanosis. Left foot ulcer noted a clean base, packing removed, no purulence, no surrounding redness, no erythema, nontender. Left upper extremity, fistula unremarkable. DERM: Warm without generalized rash. NEUROLOGIC: Alert and oriented x 3. LABORATORY DATA: WBC 7.7, hemoglobin 11.1, hematocrit 33.2 and platelets 156. Sodium 136, potassium 3.5, chloride 96, bicarbonate 33, BUN 11, creatinine 3.1 and glucose 201. Magnesium 1.7. LFTs noted. UA shows large leukocyte esterase, moderate blood, wbc's too numerous to count and moderate bacteria. Urine culture is pending. IMAGING: None. IMPRESSION: 1. Hypotension. Received fluid bolus. 2. History of extended spectrum beta lactamase urinary tract infection. 3. Chronic kidney disease on hemodialysis via arteriovenous fistula. 4. Diabetic ulcer, left foot followed at outside Wound Care Center. 5. Fatigue, improved. 6. Anorexia, improved. 7. Hematuria. 8. Diabetes mellitus. RECOMMENDATIONS: 1. Continue meropenem. 2. We will start the patient on empiric Zyvox. 3. Monitor lab values and temperature. 4. We will follow up on cultures. 5. Local wound care. 6. Supportive care. Thank you, Dr. Ba, for consulting Infectious Disease to participate in this patient's care. If you have any questions, do not hesitate to contact us. MARIA ESTHER العلي MD DR: ARGENTINA/anthony JOB#: [id number] / [id number]
[2018-07-20] MEDS ORDERED: FOSFOMYCIN TROMETHAMINE 3 GM PACKET PO ONE (10:30)
--- NOTE | 2018-07-20 21:01 | PDOC3 ---
Discharge Summary IPC Final Diagnosis I did not see pt today as he left AMA. Brief Hospital Course Ms. Beach is a 78 old [sex] who presented with [ ] Patient History: Family history: Diabetes mellitus (situation) G8 SISTER G8 SISTER G8 SISTER G8 SISTER G8 SISTER No Family History of: Cancer confirmed (situation) Family history: Allergy Family history: Alzheimer's disease (situation) Family history: Angina (situation) Family history: Asthma Family history: Autoimmune disease (situation) Family history: Blood disorder (situation) Family history: Breast disease (situation) Family history: Cardiomyopathy (situation) Family history: Cardiovascular disease (situation) Family history: Crohn's disease (situation) Family history: Depression (situation) Family history: Epilepsy (situation) Family history: Gallbladder disease (situation) Family history: Gastrointestinal disease (situation) Family history: Hemophilia (situation) Family history: Hypertension (situation) Family history: Obesity (situation) Family history: Schizophrenia (situation) Family history: Sickle cell trait (situation) Family history: Suicide (situation) Family history: neoplasm - trachea/bronchus/lung (situation) Family history: neoplasm - urinary organ (situation) Family history: neoplasm of skin (situation) Malignant hyperthermia Sleep apnea CONDITION AT DISCHARGE: Improved, Stable Scheduled Aspirin (Aspir 81), 1 TAB PO DAILY08, (Reported) Calcium Acetate (Calcium Acetate), 2 CAP PO TIDAC, (Reported) Estradiol (Estrace), 1 ODILIA VG 3X/WEEK Insulin Aspart (Novolog), 6 UNIT SQ TIDAC, (Reported) Insulin Glargine,Hum.rec.anlog (Lantus Solostar), 6 UNIT SQ QHS, (Reported) Simvastatin (Simvastatin), 1 TAB PO QHS, (Reported) Scheduled PRN Methenamine Hippurate (Methenamine Hippurate), 1 GM PO DAILY PRN for urology, ( Reported) [regrenex], TOP DAILY PRN for wound care, (Reported) Discontinued Medications Mirabegron (Myrbetriq), 50 MG PO DAILY, (Reported) DEJA CANTU MD Jul 20, 2018 21:01
== END 2018-07-20 11:00 | disposition left against medical advice (07) ==
LOC: ER 12:16 → 6 SOUTH 14:35
PROVIDERS: ADMIT Internal Medicine; ATTEND Internal Medicine
DX: N39.0 Urinary tract infection, site not specified (principal); E11.22 Type 2 diabetes mellitus with diabetic chronic kidney disease; E11.42 Type 2 diabetes mellitus with diabetic polyneuropathy; E78.00 Pure hypercholesterolemia, unspecified; E78.5 Hyperlipidemia, unspecified; I12.0 Hypertensive chronic kidney disease with stage 5 chronic kidney disease or end stage renal disease; I25.10 Atherosclerotic heart disease of native coronary artery without angina pectoris; N18.6 End stage renal disease; Z99.2 Dependence on renal dialysis; Z95.1 Presence of aortocoronary bypass graft; Z87.442 Personal history of urinary calculi; Z86.010 Personal history of colon polyps; Z85.038 Personal history of other malignant neoplasm of large intestine; Z83.2 Family history of diseases of the blood and blood-forming organs and certain disorders involving the immune mechanism; Z82.49 Family history of ischemic heart disease and other diseases of the circulatory system; Z82.0 Family history of epilepsy and other diseases of the nervous system; Z81.8 Family history of other mental and behavioral disorders; Z82.5 Family history of asthma and other chronic lower respiratory diseases; E11.621 Type 2 diabetes mellitus with foot ulcer; L97.529 Non-pressure chronic ulcer of other part of left foot with unspecified severity
CPT/HCPCS: 36415; 80053; 81001; 82962; 83605; 83735; 84484; 85025; 87086; 93005; 96361; 96365; 96372; 99284; G0378; J1815; J2185; J7030; J7040; G0379

== ENCOUNTER 2018-08-05 06:09 | Inpatient (IN) | payer MEDICARE ==
[~2018-08-05] VITALS: Ht 160 cm; Wt 60.0 kg
[~2018-08-05 06:09] MED LIST changes: +CARV3.1210 PO; -CARV3.122 PO; +METH1TAB20 PO; +[UNRECOGNIZED DRUG - OTHER]; +[UNRECOGNIZED DRUG - OTHER] TOP
[2018-08-05 06:25] LABS: BILIRUBIN,URINE NEGATIVE (NEG); CLARITY,URINE TURBID; COLOR,URINE YELLOW; NITRITE,URINE NEGATIVE (NEG); PH,URINE 7.5; PROTEIN,URINE >=300 mg/dL (NEG-TRACE); UROBILINOGEN,URINE 0.2 mg/dL (0.2 mg/dL)
[2018-08-05 06:36] LABS: BACTERIA,URINE MANY /HPF (0-FEW); RBC,URINE FOBS /HPF (0-2); WBC,URINE TNTC /HPF (0-4)
[2018-08-05] MEDS ORDERED: IV NORMAL SALINE 500ML BAG 500 ML IV ONE (07:00)
--- NOTE | 2018-08-05 07:01 | PHYS DOC ---
Past Medical History Past Medical History: Arthritis, Diabetes-Type II, High Cholesterol, Hypertension, Renal Disease, Renal Failure, UTI Additional Past Medical Histor: hyperkalemia, bladder retention, urinary stents Past Surgical History: Coronary Bypass Surgery Additional Past Surgical Histo: benign tumor removed from colon, bladder stent removed and reinserted Alcohol Use: None Drug Use: None Adult General Chief Complaint Chief Complaint: PAIN ON URINATION HPI HPI Patient is a 78 year old female with past medical history of end-stage renal disease on hemodialysis, hypertension, hyperlipidemia, and diabetes who presents with one-day history of decreased appetite and generalized weakness. Patient states that she also noticed some darker, more viscous, and cloudy urine yesterday. Patient does make urine but has limited control over her bladder. Patient notes that yesterday she also had some chills but no fever. She denies any dysuria, urinary frequency, urinary urgency, abdominal pain, chest pain, shortness of air, or extremity pain. Patient states that she frequently gets urinary tract infections and they present in a similar fashion. Patient states her last urinary tract infection was the day before last month, and when she gets a urinary tract infection she is non-responsive to oral antibiotics and requires IV antibiotics. Patient notes she goes to dialysis on Tuesday, , and Tuesday and has not missed any appointments recently. Per brief [employer] review, notation of patient's urine culture growing out Klebsiella in 02/2018 with multiple drug resistance for which patient required Infectious disease management with IV antibiotics. Patient reports she feels similar to this prior episode. Review of Systems Review of Systems Constitutional: Denies fever, notes chills [] Eyes: Denies change in visual acuity, redness, or eye pain [] HENT: Denies nasal congestion or sore throat [] Respiratory: Denies cough or shortness of breath [] Cardiovascular: Denies chest pain or palpitations[] GI: Denies abdominal pain, nausea, vomiting, or diarrhea [] : Denies dysuria or hematuria [] Musculoskeletal: Denies back pain or joint pain [] Integument: Denies rash chronic healing wounds on left foot[] Neurologic: Denies headache, focal weakness or sensory changes [] Complete systems were reviewed and found to be within normal limits, except as documented in this note. Current Medications Current Medications Current Medications Medications (Trade) Dose Ordered Sig/Claudette Start Time Stop Time Status Last Admin Dose Admin Acetaminophen (Tylenol) 650 mg PRN Q4HRS PRN 08/05/18 08:30 08/06/18 08:29 UNV Ceftriaxone Sodium (Rocephin) 1 gm 1X ONCE 08/05/18 07:45 08/05/18 07:49 DC Dextrose (Dextrose 50%-Water Syringe) 12.5 gm PRN Q15MIN PRN 08/05/18 08:30 UNV Insulin Human Lispro (HumaLOG) 0-5 UNITS TIDWMEALS 08/05/18 12:00 UNV Ondansetron HCl (Zofran) 4 mg PRN Q8HRS PRN 08/05/18 08:30 08/06/18 08:29 UNV Sodium Chloride 500 ml @ 500 mls/hr 1X ONCE 08/05/18 07:00 08/05/18 07:59 DC 08/05/18 07:12 500 MLS/HR Allergies Allergies Allergies Coded Allergies Type Severity Reaction Last Updated Verified latex Allergy Intermediate Rash 12/30/17 Yes I S O L A T I O N *CONTACT* Allergy Unknown 12/30/17 Yes Physical Exam Physical Exam Constitutional: Well developed, well nourished, no acute distress, non-toxic appearance. [] HENT: Normocephalic, atraumatic, oropharynx dry, no oral exudates, nose normal. [] Eyes: PERRL, EOMI, no discharge. [] Neck: Normal range of motion, no tenderness, supple. [] Cardiovascular: Heart rate regular rhythm, no murmur [] Lungs & Thorax: Bilateral breath sounds clear to auscultation [] Abdomen: Soft, nondistended, no tenderness. [] Skin: Warm, dry. Chronic wounds to left medial and lateral forefoot. Mild surrounding erythema and warmth. [] Back: No tenderness, no CVA tenderness. [] Extremities: No tenderness, ROM intact, no edema. [] Neurologic: Alert and oriented X 3, normal motor function, normal sensory function, no focal deficits noted. [] Psychologic: Affect normal, judgement normal, mood normal. [] Current Patient Data Vital Signs Vital Signs Date Time Temp Pulse Resp B/P (MAP) Pulse Ox O2 Delivery O2 Flow Rate FiO2 08/05/18 06:22 98.3 102 14 144/68 (93) 100 Room Air 98.3 Lab Values Laboratory Tests Test 08/05/18 06:13 08/05/18 07:35 Urine Collection Type Unknown Urine Color Yellow Urine Clarity Turbid Urine pH 7.5 Urine Specific [place] 1.015 Urine Protein >=300 mg/dL (NEG-TRACE) Urine Glucose (UA) Negative mg/dL (NEG) Urine Ketones (Stick) Negative mg/dL (NEG) Urine Blood Large (NEG) Urine Nitrite Negative (NEG) Urine Bilirubin Negative (NEG) Urine Urobilinogen Dipstick 0.2 mg/dL (0.2 mg/dL) Urine Leukocyte Esterase Large (NEG) Urine RBC Fobs /HPF (0-2) Urine WBC Tntc /HPF (0-4) Urine Bacteria Many /HPF (0-FEW) White Blood Count 8.5 x10^3/uL (4.0-11.0) Red Blood Count 3.68 x10^6/uL (3.50-5.40) Hemoglobin 11.7 g/dL (12.0-15.5) L Hematocrit 35.0 % (36.0-47.0) L Mean Corpuscular Volume 95 fL (79-100) Mean Corpuscular Hemoglobin 32 pg (25-35) Mean Corpuscular Hemoglobin Concent 33 g/dL (31-37) Red Cell Distribution Width 17.4 % (11.5-14.5) H Platelet Count 113 x10^3/uL (140-400) L Neutrophils (%) (Auto) 70 % (31-73) Lymphocytes (%) (Auto) 16 % (24-48) L Monocytes (%) (Auto) 12 % (0-9) H Eosinophils (%) (Auto) 1 % (0-3) Basophils (%) (Auto) 1 % (0-3) Neutrophils # (Auto) 6.0 x10^3uL (1.8-7.7) Lymphocytes # (Auto) 1.4 x10^3/uL (1.0-4.8) Monocytes # (Auto) 1.0 x10^3/uL (0.0-1.1) Eosinophils # (Auto) 0.1 x10^3/uL (0.0-0.7) Basophils # (Auto) 0.1 x10^3/uL (0.0-0.2) Sodium Level 134 mmol/L (136-145) L Potassium Level 4.1 mmol/L (3.5-5.1) Chloride Level 96 mmol/L (98-107) L Carbon Dioxide Level 27 mmol/L (21-32) Anion Gap 11 (6-14) Blood Urea Nitrogen 42 mg/dL (7-20) H Creatinine 7.1 mg/dL (0.6-1.0) H Estimated GFR (Cockcroft-Gault) 5.6 BUN/Creatinine Ratio 6 (6-20) Glucose Level 173 mg/dL (70-99) H Lactic Acid Level 1.2 mmol/L (0.4-2.0) Calcium Level 8.7 mg/dL (8.5-10.1) Magnesium Level 1.9 mg/dL (1.8-2.4) Total Bilirubin 0.9 mg/dL (0.2-1.0) Aspartate Amino Transferase (AST) 15 U/L (15-37) Alanine Aminotransferase (ALT) 15 U/L (14-59) Alkaline Phosphatase 147 U/L (46-116) H Creatine Kinase 25 U/L (26-192) L Creatine Kinase MB (Mass) < 0.5 ng/mL (0.0-3.6) Creatine Kinase MB Relative Index % (0-4) Troponin I Quantitative < 0.017 ng/mL (0.000-0.055) Total Protein 8.3 g/dL (6.4-8.2) H Albumin 2.6 g/dL (3.4-5.0) L Albumin/Globulin Ratio 0.5 (1.0-1.7) L Laboratory Tests 08/05/18 07:35 Laboratory Tests 08/05/18 07:35 EKG EKG Heart rate 99, WA 154, QTc 455. Normal sinus rhythm, left axis deviation. No STEMI. T wave inversion in lead aVF. [] Radiology/Procedures Radiology/Procedures [] Course & Med Decision Making Course & Med Decision Making 78-year-old female with end-stage renal disease on hemodialysis presenting with concern for a UTI due to weakness. Patient reports history of frequent UTIs and typically requires IV antibiotics. Patient is due for dialysis today. Labs obtained and posted to chart. WBC and lactic acid WNL. UA with signs of significant UTI. Empiric antibiotics given. Discussed findings with patient. Patient reports due to concern for resistance and symptoms of weakness reports she does not feel comfortable being treated as outpatient. Patient requiring admission for further evaluation and treatment. Discussed with Dr. Rowell (hospitalist) who is in agreement with admission. Discussed case with Dr. Bolanos (nephrology) who will add patient to list for HD today. Discussed findings and plan with patient and family, who acknowledge understanding and agreement. Dragon Disclaimer Dragon Disclaimer This electronic medical record was generated, in whole or in part, using a voice recognition dictation system. Departure Departure Impression: Primary Impression: Weakness Additional Impressions: UTI (urinary tract infection) ESRD (end stage renal disease) Disposition: ADMITTED INPATIENT (med/surg) Admitting Physician: Other (Sorin) Condition: STABLE Referrals: LISA CALHOUN (PCP) Problem Qualifiers Additional Impressions: UTI (urinary tract infection) Urinary tract infection type: acute cystitis Hematuria presence: with hematuria Qualified Codes: N30.01 - Acute cystitis with hematuria HAWA SILVA DO Aug 05, 2018 07:01
--- NOTE | 2018-08-05 07:19 | EKG ---
[facility] [address] [place] [address] Test Date: 2018-08-05 Test Time: 06:25:48 Pat Name: BRYANT LOCKHART Department: Room: Gender: F Principal Developer: : 1940 Requested By: HAWA SILVA Order Number: [id number] Reading MD: Measurements Intervals [place] Rate: 99 P: 14 MD: 154 QRS: -17 QRSD: 86 T: 45 QT: 350 QTc: 455 Interpretive Statements SINUS RHYTHM LEFT ATRIAL ABNORMALITY LEFTWARD AXIS ST & T ABNORMALITY, CONSIDER HIGH LATERAL ISCHEMIA OR LEFT VENTRICULAR STRAIN ABNORMAL ECG RI6.01 No previous ECG available for comparison
[2018-08-05 07:43] LABS: BASO # 0.1 x10^3/uL (0.0-0.2); BASO % 1 % (0-3); EOS # 0.1 x10^3/uL (0.0-0.7); EOS % 1 % (0-3); HEMOGLOBIN 11.7 g/dL (12.0-15.5); LYMPH # 1.4 x10^3/uL (1.0-4.8); LYMPH % 16 % (24-48); MEAN CORPUSCULAR HEMOGLOBIN 32 pg (25-35); MEAN CORPUSCULAR HGB CONC 33 g/dL (31-37); MEAN CORPUSCULAR VOLUME 95 fL (79-100); MONO % 12 % (0-9); NEUT % 70 % (31-73); PLATELET COUNT 113 x10^3/uL (140-400); RED BLOOD COUNT 3.68 x10^6/uL (3.50-5.40); RED CELL DISTRIBUTION WIDTH 17.4 % (11.5-14.5); WHITE BLOOD COUNT 8.5 x10^3/uL (4.0-11.0)
[2018-08-05] MEDS ORDERED: cefTRIAXone IV Push 1 GM VIAL. IVP ONE (07:45)
[2018-08-05 07:56] LABS: CALCIUM 8.7 mg/dL (8.5-10.1); CREATININE 7.1 mg/dL (0.6-1.0); GFR 5.6; POTASSIUM 4.1 mmol/L (3.5-5.1)
[2018-08-05 08:02] LABS: ALBUMIN 2.6 g/dL (3.4-5.0); ALBUMIN/GLOBULIN RATIO 0.5 (1.0-1.7); MAGNESIUM 1.9 mg/dL (1.8-2.4); TOTAL BILIRUBIN 0.9 mg/dL (0.2-1.0); TOTAL PROTEIN 8.3 g/dL (6.4-8.2)
[2018-08-05 08:16] LABS: CREATINE KINASE 25 U/L (26-192)
[2018-08-05] MEDS ORDERED: ONDANSETRON PF 4 MG/2 ML VIAL. IV PRN (08:30)
[2018-08-05] MEDS ORDERED: DEXTROSE 50% 25 GM / 50ML DISP.SYRIN. IV PRN (08:30)
[2018-08-05] MEDS ORDERED: ACETAMINOPHEN 325 MG TABLET. PO PRN (08:30)
[2018-08-05 11:00] VITALS: BP_SYST 137; BP_DIAS 68; BP_DIAS 70
[2018-08-05] MEDS: INSULIN LISPRO 300 UNITS/3 ML INSULN.PEN. SQ SCH ×3 (12:45→19:00)
--- NOTE | 2018-08-05 14:17 | PDOC2 ---
CONSULT Date of Consult Date of Consult DATE: 08/05/18 TIME: 14:01 Reason for Consult Reason for Consult: ESRD on hemodialysis Referring Physician Referring Physician: Dr. Ba Identification/Chief Complaint Chief Complaint Fever last night, foul-smelling urine in the ER Source Source: Chart review, Patient History of Present Illness Reason for Visit: Kyra is a pleasant 78-year-old female who is known to have a neurological bladder/atonic bladder. She is known to have urinary retention in the past. Ureteral stents have been attempted in the past but don't seem to have helped much. She has been on hemodialysis due to uremic symptoms. As not been eating well for the last few days and her daughter tells me she had a fever to 101 yesterday. She has had some amount of incontinence also from time to time. She is scheduled to see her urologist next week. She was admitted to the hospital with a presumed UTI, especially since she has known to have [id number] Klebsiella in the past per ER physician. We were asked to see her for her ESRD needs Past Medical History Cardiovascular: CAD, HTN, Hyperlipidemia GI: Other Heme/Onc: No pertinent hx Psych: No pertinent hx Rheumatologic: No pertinent hx Infectious disease: No pertinent hx Renal/: Chronic renal failure, UTI, Hematuria, Other Endocrine: Diabetes, Hyperparathyroidism Past Surgical History Past Surgical History: CABG, Cystoscopy, Other Family History Family History: Hypertension, Other Social History ALCOHOL: none Drugs: None Lives: with Family Current Problem List Problem List Problems Medical Problems: (1) UTI (urinary tract infection) Status: Acute (2) Weakness Status: Acute Current Medications Current Medications Current Medications Sodium Chloride 500 ml @ 500 mls/hr 1X ONCE IV Last administered on at 07:12; Start 08/05/18 at 07:00; Stop 08/05/18 at 07:59; Status DC Ceftriaxone Sodium (Rocephin) 1 gm 1X ONCE IVP Last administered on 08/05/18at 08:48; Start 08/05/18 at 07:45; Stop 08/05/18 at 07:49; Status DC Ondansetron HCl (Zofran) 4 mg PRN Q8HRS PRN IV NAUSEA/VOMITING; Start 08/05/18 at 08:30; Stop 08/06/18 at 08:29 Acetaminophen (Tylenol) 650 mg PRN Q4HRS PRN PO FEVER; Start 08/05/18 at 08:30 ; Stop 08/06/18 at 08:29 Insulin Human Lispro (HumaLOG) 0-5 UNITS TIDWMEALS SQ Last administered on 08/05at 12:45; Start 08/05/18 at 12:00 Dextrose (Dextrose 50%-Water Syringe) 12.5 gm PRN Q15MIN PRN IV SEE COMMENTS; Start 08/05/18 at 08:30 Active Scripts Active Estrace (Estradiol) 42.5 Gm Cream.appl 1 Scotty VG 3X/WEEK 14 Days Reported Novolog (Insulin Aspart) 100 Unit/1 Ml Cartridge 6 Unit SQ TIDAC Lantus Solostar (Insulin Glargine,Hum.rec.anlog) 100 Unit/1 Ml Insuln.pen 6 Unit SQ QHS [regrenex] TOP DAILY PRN Calcium Acetate 667 Mg Tablet 2 Cap PO TIDAC Simvastatin 40 Mg Tablet 1 Tab PO QHS Last dose given: 08-20-14 9:00 p.m. Next dose due: tonight Aspir 81 (Aspirin) 81 Mg Tablet.dr 1 Tab PO DAILY08 Allergies Allergies: Coded Allergies: latex (Verified Allergy, Intermediate, Rash, 12/30/17) I S O L A T I O N *CONTACT* (Verified Allergy, Unknown, 12/30/17) ESBL urine ROS Review of System 14 point review of systems was conducted with the patient and is grossly negative other than as mentioned in history of present illness. Physical Exam Physical Exam General Appearance: Awake Alert Oriented x 3 In no Distress Eyes: VIsion Unchanged Conjunctiva Normal EN: No EN Drainage Mucous Memb. moist Neck: no JVD no JVP Supple no Thyromegaly CVS: S1 S2 no Murmur No Gallop No Rub no Edema Resp: no Rales no Rhonchi no Acc. Muscle use GI: BAS +ve NO Bruit Non Tender Non Distended : no CVA tenderness; no Suprapubic Tenderness SKIN: no Rashes Breast Exam deferred Mu.Sk: Adequate ROM no Muscle Atrophy Heme: Unable to palpate Obvious LAD no Splenomegaly NEURO: Good Strength and Tone Cranial Nerves II - XII grossly intact Psych: not Depressed no Active hallucination Vital Signs Vital Signs Date Time Temp Pulse Resp B/P (MAP) Pulse Ox O2 Delivery O2 Flow Rate FiO2 08/05/18 11:00 98.3 92 20 137/70 (92) 96 Room Air 98.3 Assessment & Plan ESRD: Dialysis as below F 180 NR 3.5 Hrs 3 K 2.5 Ca 140 Na 35 HC03 Qb 350 + Qd 500+ Heparin 0 Units Uf to dry weight as tolerated May give 25-50 gms of 25% Albumin if needed to maintain Hemodynamic stability Treatment plan reviewed and 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 Transfuse with next HD as needed. If hemoglobin drops less than 7 HTN: Current BP meds reviewed. See orders for changes. Possible cystitis with hematuria: Await urine culture. Antibiotics per primary team and possible need for infectious disease specialist Bone & Mineral: Continue to follow phosphorus levels and alter binder regimen as needed. Patient is somewhat upset about being on a renal diet currently Discussed Plan of Care and prognosis etc. at length with family (daughter at bedside who does not talk to the patient's daughter who usually takes care of her) numerous questions were answered for her. She is interested in urological evaluation while the patient is here. Labs Labs Laboratory Tests Test 08/05/18 06:13 08/05/18 07:35 08/05/18 09:46 08/05/18 12:10 Urine Collection Type Unknown Urine Color Yellow Urine Clarity Turbid Urine pH 7.5 Urine Specific [place] 1.015 Urine Protein >=300 mg/dL (NEG-TRACE) Urine Glucose (UA) Negative mg/dL (NEG) Urine Ketones (Stick) Negative mg/dL (NEG) Urine Blood Large (NEG) Urine Nitrite Negative (NEG) Urine Bilirubin Negative (NEG) Urine Urobilinogen Dipstick 0.2 mg/dL (0.2 mg/dL) Urine Leukocyte Esterase Large (NEG) Urine RBC Fobs /HPF (0-2) Urine WBC Tntc /HPF (0-4) Urine Bacteria Many /HPF (0-FEW) White Blood Count 8.5 x10^3/uL (4.0-11.0) Red Blood Count 3.68 x10^6/uL (3.50-5.40) Hemoglobin 11.7 g/dL (12.0-15.5) Hematocrit 35.0 % (36.0-47.0) Mean Corpuscular Volume 95 fL (79-100) Mean Corpuscular Hemoglobin 32 pg (25-35) Mean Corpuscular Hemoglobin Concent 33 g/dL (31-37) Red Cell Distribution Width 17.4 % (11.5-14.5) Platelet Count 113 x10^3/uL (140-400) Neutrophils (%) (Auto) 70 % (31-73) Lymphocytes (%) (Auto) 16 % (24-48) Monocytes (%) (Auto) 12 % (0-9) Eosinophils (%) (Auto) 1 % (0-3) Basophils (%) (Auto) 1 % (0-3) Neutrophils # (Auto) 6.0 x10^3uL (1.8-7.7) Lymphocytes # (Auto) 1.4 x10^3/uL (1.0-4.8) Monocytes # (Auto) 1.0 x10^3/uL (0.0-1.1) Eosinophils # (Auto) 0.1 x10^3/uL (0.0-0.7) Basophils # (Auto) 0.1 x10^3/uL (0.0-0.2) Sodium Level 134 mmol/L (136-145) Potassium Level 4.1 mmol/L (3.5-5.1) Chloride Level 96 mmol/L (98-107) Carbon Dioxide Level 27 mmol/L (21-32) Anion Gap 11 (6-14) Blood Urea Nitrogen 42 mg/dL (7-20) Creatinine 7.1 mg/dL (0.6-1.0) Estimated GFR (Cockcroft-Gault) 5.6 BUN/Creatinine Ratio 6 (6-20) Glucose Level 173 mg/dL (70-99) Lactic Acid Level 1.2 mmol/L (0.4-2.0) Calcium Level 8.7 mg/dL (8.5-10.1) Magnesium Level 1.9 mg/dL (1.8-2.4) Total Bilirubin 0.9 mg/dL (0.2-1.0) Aspartate Amino Transf (AST/SGOT) 15 U/L (15-37) Alanine Aminotransferase (ALT/SGPT) 15 U/L (14-59) Alkaline Phosphatase 147 U/L (46-116) Creatine Kinase 25 U/L (26-192) Creatine Kinase MB (Mass) < 0.5 ng/mL (0.0-3.6) Creatine Kinase MB Relative Index % (0-4) Troponin I Quantitative < 0.017 ng/mL (0.000-0.055) Total Protein 8.3 g/dL (6.4-8.2) Albumin 2.6 g/dL (3.4-5.0) Albumin/Globulin Ratio 0.5 (1.0-1.7) Glucose (Fingerstick) 160 mg/dL (70-99) 165 mg/dL (70-99) Laboratory Tests Test 08/05/18 06:13 08/05/18 07:35 08/05/18 09:46 08/05/18 12:10 Urine Collection Type Unknown Urine Color Yellow Urine Clarity Turbid Urine pH 7.5 Urine Specific [place] 1.015 Urine Protein >=300 mg/dL (NEG-TRACE) Urine Glucose (UA) Negative mg/dL (NEG) Urine Ketones (Stick) Negative mg/dL (NEG) Urine Blood Large (NEG) Urine Nitrite Negative (NEG) Urine Bilirubin Negative (NEG) Urine Urobilinogen Dipstick 0.2 mg/dL (0.2 mg/dL) Urine Leukocyte Esterase Large (NEG) Urine RBC Fobs /HPF (0-2) Urine WBC Tntc /HPF (0-4) Urine Bacteria Many /HPF (0-FEW) White Blood Count 8.5 x10^3/uL (4.0-11.0) Red Blood Count 3.68 x10^6/uL (3.50-5.40) Hemoglobin 11.7 g/dL (12.0-15.5) Hematocrit 35.0 % (36.0-47.0) Mean Corpuscular Volume 95 fL (79-100) Mean Corpuscular Hemoglobin 32 pg (25-35) Mean Corpuscular Hemoglobin Concent 33 g/dL (31-37) Red Cell Distribution Width 17.4 % (11.5-14.5) Platelet Count 113 x10^3/uL (140-400) Neutrophils (%) (Auto) 70 % (31-73) Lymphocytes (%) (Auto) 16 % (24-48) Monocytes (%) (Auto) 12 % (0-9) Eosinophils (%) (Auto) 1 % (0-3) Basophils (%) (Auto) 1 % (0-3) Neutrophils # (Auto) 6.0 x10^3uL (1.8-7.7) Lymphocytes # (Auto) 1.4 x10^3/uL (1.0-4.8) Monocytes # (Auto) 1.0 x10^3/uL (0.0-1.1) Eosinophils # (Auto) 0.1 x10^3/uL (0.0-0.7) Basophils # (Auto) 0.1 x10^3/uL (0.0-0.2) Sodium Level 134 mmol/L (136-145) Potassium Level 4.1 mmol/L (3.5-5.1) Chloride Level 96 mmol/L (98-107) Carbon Dioxide Level 27 mmol/L (21-32) Anion Gap 11 (6-14) Blood Urea Nitrogen 42 mg/dL (7-20) Creatinine 7.1 mg/dL (0.6-1.0) Estimated GFR (Cockcroft-Gault) 5.6 BUN/Creatinine Ratio 6 (6-20) Glucose Level 173 mg/dL (70-99) Lactic Acid Level 1.2 mmol/L (0.4-2.0) Calcium Level 8.7 mg/dL (8.5-10.1) Magnesium Level 1.9 mg/dL (1.8-2.4) Total Bilirubin 0.9 mg/dL (0.2-1.0) Aspartate Amino Transf (AST/SGOT) 15 U/L (15-37) Alanine Aminotransferase (ALT/SGPT) 15 U/L (14-59) Alkaline Phosphatase 147 U/L (46-116) Creatine Kinase 25 U/L (26-192) Creatine Kinase MB (Mass) < 0.5 ng/mL (0.0-3.6) Creatine Kinase MB Relative Index % (0-4) Troponin I Quantitative < 0.017 ng/mL (0.000-0.055) Total Protein 8.3 g/dL (6.4-8.2) Albumin 2.6 g/dL (3.4-5.0) Albumin/Globulin Ratio 0.5 (1.0-1.7) Glucose (Fingerstick) 160 mg/dL (70-99) 165 mg/dL (70-99) Review All relevant outside records, renal labs, imaging studies, telemetry/EKG's were reviewed. TRINA العلي MD Aug 05, 2018 14:17
[2018-08-05 15:00] VITALS: BP 137/68
[2018-08-05] MEDS ORDERED: IV NORMAL SALINE 1000ML BAG 1,000 ML IV PRN ×2 (15:00)
[2018-08-05] MEDS ORDERED: DIALYSIS PATIENT. MC PRN ×2 (16:00)
--- NOTE | 2018-08-05 18:37 | PDOC1 ---
History and Physical History of Present Illness History of Present Illness ED HPI: Patient is a 78 year old female with past medical history of end-stage renal disease on hemodialysis, hypertension, hyperlipidemia, and diabetes who presents with one-day history of decreased appetite and generalized weakness. Patient states that she also noticed some darker, more viscous, and cloudy urine yesterday. Patient does make urine but has limited control over her bladder. Patient notes that yesterday she also had some chills but no fever. She denies any dysuria, urinary frequency, urinary urgency, abdominal pain, chest pain, shortness of air, or extremity pain. Patient states that she frequently gets urinary tract infections and they present in a similar fashion. Patient states her last urinary tract infection was the day before last month, and when she gets a urinary tract infection she is non-responsive to oral antibiotics and requires IV antibiotics. Patient notes she goes to dialysis on Tuesday, , and Tuesday and has not missed any appointments recently. Per brief [facility] review, notation of patient's urine culture growing out Klebsiella in 02/2018 with multiple drug resistance for which patient required Infectious disease management with IV antibiotics. Patient reports she feels similar to this prior episode. On my exam pt is in NAD, pleasant, Is preparing for HD. Daughter is at bedside as has numerous questions about why pt is ion HD. I have referred her to pts primary director of acquisitions. Daughter states pt has been in and out of hospital for UTI Past Medical History Cardiovascular: CAD, HTN, Hyperlipidemia GI: Other Heme/Onc: No pertinent hx Psych: No pertinent hx Rheumatologic: No pertinent hx Infectious disease: No pertinent hx Renal/: Chronic renal failure, UTI, Hematuria, Other Endocrine: Diabetes, Hyperparathyroidism Past Surgical History Past Surgical History: CABG, Cystoscopy, Other Family History Family History: Hypertension, Other Social History ALCOHOL: none Drugs: None Current Problem List Problem List Problems Medical Problems: (1) UTI (urinary tract infection) Status: Acute (2) Weakness Status: Acute Current Medications Current Medications Current Medications Medications (Trade) Dose Ordered Sig/Claudette Start Time Stop Time Status Last Admin Dose Admin Acetaminophen (Tylenol) 650 mg PRN Q4HRS PRN 08/05/18 08:30 08/06/18 08:29 Ceftriaxone Sodium (Rocephin) 1 gm 1X ONCE 08/05/18 07:45 08/05/18 07:49 DC 08/05/18 08:48 1 GM Dextrose (Dextrose 50%-Water Syringe) 12.5 gm PRN Q15MIN PRN 08/05/18 08:30 Info (PHARMACY MONITORING -- do not chart) 1 each PRN DAILY PRN 08/05/18 16:00 Insulin Human Lispro (HumaLOG) 0-5 UNITS TIDWMEALS 08/05/18 12:00 08/05/18 12:45 2 UNITS Ondansetron HCl (Zofran) 4 mg PRN Q8HRS PRN 08/05/18 08:30 08/06/18 08:29 Sodium Chloride 1,000 ml @ 400 mls/hr Q2H30M PRN 08/05/18 15:00 08/06/18 02:59 Allergies Allergies Allergies Coded Allergies Type Severity Reaction Last Updated Verified latex Allergy Intermediate Rash 12/30/17 Yes I S O L A T I O N *CONTACT* Allergy Unknown 12/30/17 Yes ROS Review of System CONSTITUTIONAL: No fever or chills EYES: No recent changes SKIN: No rash or itching CARDIOVASCULAR: No chest pain, syncope, palpitations, or edema RESPIRATORY: No SOB or cough GASTROINTESTINAL: No nausea, vomiting or abdominal pain NEUROLOGICAL: No headaches or weakness ENDOCRINE: No cold or heat intolerance GENITOURINARY: No urgency or frequency of urination MUSCULOSKELETAL: No back pain or joint pain LYMPHATICS: No enlarged lymph nodes PSYCHIATRIC: No anxiety or depression Physical Exam Physical Exam GEN.: No apparent distress. Alert and oriented. HEENT: Head is normocephalic, atraumatic NECK: Supple. LUNGS: Clear to auscultation. HEART: RRR, S1, S2 present. Peripheral pulses intact ABDOMEN: Soft, nontender. Positive bowel sounds. EXTREMITIES: Without any cyanosis. NEUROLOGIC: Normal speech, normal tone PSYCHIATRIC: Normal affect, normal mood. SKIN: No ulcerations Vitals Vitals Vital Signs Date Time Temp Pulse Resp B/P (MAP) Pulse Ox O2 Delivery O2 Flow Rate FiO2 08/05/18 15:00 99.4 89 20 137/68 (91) 97 Room Air 99.4 Labs Labs Laboratory Tests Test 08/05/18 06:13 08/05/18 07:35 08/05/18 09:46 08/05/18 12:10 Urine Collection Type Unknown Urine Color Yellow Urine Clarity Turbid Urine pH 7.5 Urine Specific [place] 1.015 Urine Protein >=300 mg/dL (NEG-TRACE) Urine Glucose (UA) Negative mg/dL (NEG) Urine Ketones (Stick) Negative mg/dL (NEG) Urine Blood Large (NEG) Urine Nitrite Negative (NEG) Urine Bilirubin Negative (NEG) Urine Urobilinogen Dipstick 0.2 mg/dL (0.2 mg/dL) Urine Leukocyte Esterase Large (NEG) Urine RBC Fobs /HPF (0-2) Urine WBC Tntc /HPF (0-4) Urine Bacteria Many /HPF (0-FEW) White Blood Count 8.5 x10^3/uL (4.0-11.0) Red Blood Count 3.68 x10^6/uL (3.50-5.40) Hemoglobin 11.7 g/dL (12.0-15.5) Hematocrit 35.0 % (36.0-47.0) Mean Corpuscular Volume 95 fL (79-100) Mean Corpuscular Hemoglobin 32 pg (25-35) Mean Corpuscular Hemoglobin Concent 33 g/dL (31-37) Red Cell Distribution Width 17.4 % (11.5-14.5) Platelet Count 113 x10^3/uL (140-400) Neutrophils (%) (Auto) 70 % (31-73) Lymphocytes (%) (Auto) 16 % (24-48) Monocytes (%) (Auto) 12 % (0-9) Eosinophils (%) (Auto) 1 % (0-3) Basophils (%) (Auto) 1 % (0-3) Neutrophils # (Auto) 6.0 x10^3uL (1.8-7.7) Lymphocytes # (Auto) 1.4 x10^3/uL (1.0-4.8) Monocytes # (Auto) 1.0 x10^3/uL (0.0-1.1) Eosinophils # (Auto) 0.1 x10^3/uL (0.0-0.7) Basophils # (Auto) 0.1 x10^3/uL (0.0-0.2) Sodium Level 134 mmol/L (136-145) Potassium Level 4.1 mmol/L (3.5-5.1) Chloride Level 96 mmol/L (98-107) Carbon Dioxide Level 27 mmol/L (21-32) Anion Gap 11 (6-14) Blood Urea Nitrogen 42 mg/dL (7-20) Creatinine 7.1 mg/dL (0.6-1.0) Estimated GFR (Cockcroft-Gault) 5.6 BUN/Creatinine Ratio 6 (6-20) Glucose Level 173 mg/dL (70-99) Lactic Acid Level 1.2 mmol/L (0.4-2.0) Calcium Level 8.7 mg/dL (8.5-10.1) Magnesium Level 1.9 mg/dL (1.8-2.4) Total Bilirubin 0.9 mg/dL (0.2-1.0) Aspartate Amino Transf (AST/SGOT) 15 U/L (15-37) Alanine Aminotransferase (ALT/SGPT) 15 U/L (14-59) Alkaline Phosphatase 147 U/L (46-116) Creatine Kinase 25 U/L (26-192) Creatine Kinase MB (Mass) < 0.5 ng/mL (0.0-3.6) Creatine Kinase MB Relative Index % (0-4) Troponin I Quantitative < 0.017 ng/mL (0.000-0.055) Total Protein 8.3 g/dL (6.4-8.2) Albumin 2.6 g/dL (3.4-5.0) Albumin/Globulin Ratio 0.5 (1.0-1.7) Glucose (Fingerstick) 160 mg/dL (70-99) 165 mg/dL (70-99) Test 08/05/18 16:37 Glucose (Fingerstick) 150 mg/dL (70-99) Laboratory Tests Test 08/05/18 06:13 08/05/18 07:35 08/05/18 09:46 08/05/18 12:10 Urine Collection Type Unknown Urine Color Yellow Urine Clarity Turbid Urine pH 7.5 Urine Specific [place] 1.015 Urine Protein >=300 mg/dL (NEG-TRACE) Urine Glucose (UA) Negative mg/dL (NEG) Urine Ketones (Stick) Negative mg/dL (NEG) Urine Blood Large (NEG) Urine Nitrite Negative (NEG) Urine Bilirubin Negative (NEG) Urine Urobilinogen Dipstick 0.2 mg/dL (0.2 mg/dL) Urine Leukocyte Esterase Large (NEG) Urine RBC Fobs /HPF (0-2) Urine WBC Tntc /HPF (0-4) Urine Bacteria Many /HPF (0-FEW) White Blood Count 8.5 x10^3/uL (4.0-11.0) Red Blood Count 3.68 x10^6/uL (3.50-5.40) Hemoglobin 11.7 g/dL (12.0-15.5) Hematocrit 35.0 % (36.0-47.0) Mean Corpuscular Volume 95 fL (79-100) Mean Corpuscular Hemoglobin 32 pg (25-35) Mean Corpuscular Hemoglobin Concent 33 g/dL (31-37) Red Cell Distribution Width 17.4 % (11.5-14.5) Platelet Count 113 x10^3/uL (140-400) Neutrophils (%) (Auto) 70 % (31-73) Lymphocytes (%) (Auto) 16 % (24-48) Monocytes (%) (Auto) 12 % (0-9) Eosinophils (%) (Auto) 1 % (0-3) Basophils (%) (Auto) 1 % (0-3) Neutrophils # (Auto) 6.0 x10^3uL (1.8-7.7) Lymphocytes # (Auto) 1.4 x10^3/uL (1.0-4.8) Monocytes # (Auto) 1.0 x10^3/uL (0.0-1.1) Eosinophils # (Auto) 0.1 x10^3/uL (0.0-0.7) Basophils # (Auto) 0.1 x10^3/uL (0.0-0.2) Sodium Level 134 mmol/L (136-145) Potassium Level 4.1 mmol/L (3.5-5.1) Chloride Level 96 mmol/L (98-107) Carbon Dioxide Level 27 mmol/L (21-32) Anion Gap 11 (6-14) Blood Urea Nitrogen 42 mg/dL (7-20) Creatinine 7.1 mg/dL (0.6-1.0) Estimated GFR (Cockcroft-Gault) 5.6 BUN/Creatinine Ratio 6 (6-20) Glucose Level 173 mg/dL (70-99) Lactic Acid Level 1.2 mmol/L (0.4-2.0) Calcium Level 8.7 mg/dL (8.5-10.1) Magnesium Level 1.9 mg/dL (1.8-2.4) Total Bilirubin 0.9 mg/dL (0.2-1.0) Aspartate Amino Transf (AST/SGOT) 15 U/L (15-37) Alanine Aminotransferase (ALT/SGPT) 15 U/L (14-59) Alkaline Phosphatase 147 U/L (46-116) Creatine Kinase 25 U/L (26-192) Creatine Kinase MB (Mass) < 0.5 ng/mL (0.0-3.6) Creatine Kinase MB Relative Index % (0-4) Troponin I Quantitative < 0.017 ng/mL (0.000-0.055) Total Protein 8.3 g/dL (6.4-8.2) Albumin 2.6 g/dL (3.4-5.0) Albumin/Globulin Ratio 0.5 (1.0-1.7) Glucose (Fingerstick) 160 mg/dL (70-99) 165 mg/dL (70-99) Test 08/05/18 16:37 Glucose (Fingerstick) 150 mg/dL (70-99) VTE Prophylaxis Ordered VTE Prophylaxis Devices: Yes VTE Pharmacological Prophylaxi: Yes Assessment/Plan Assessment/Plan UA and UCx Anbx Nephro c/s DEJA CANTU MD Aug 05, 2018 18:37
[2018-08-05 19:00] VITALS: BP 103/50
[2018-08-05] MEDS: CALCIUM ACETATE 667 MG CAPSULE PO SCH (19:00)
[2018-08-05] MEDS ORDERED: INSULIN GLARGINE 300 UNITS/3 ML INSULN.PEN. SQ SCH (21:00)
[2018-08-05] MEDS ORDERED: SIMVASTATIN 40 MG TABLET. PO SCH (21:00)
[2018-08-05 22:59] VITALS: BP 85/38
[2018-08-06 03:00] VITALS: BP 99/51
[2018-08-06 07:00] VITALS: BP 106/45
[2018-08-06] MEDS ORDERED: cefTRIAXone IV Push 1 GM VIAL. IVP SCH (08:00)
[2018-08-06] MEDS ORDERED: ASPIRIN ENTERIC COATED 81 MG TABLET.DR. PO SCH (08:00)
[2018-08-06] MEDS: CALCIUM ACETATE 667 MG CAPSULE PO SCH (08:01)
[2018-08-06] MEDS: INSULIN LISPRO 300 UNITS/3 ML INSULN.PEN. SQ SCH ×2 (08:21→08:22)
[2018-08-06] MEDS ORDERED: LACTOBACILLUS RHAMNOSUS GG 1 CAPSULE. PO SCH (09:00)
[2018-08-06] MEDS ORDERED: CEPH-263 PO (10:43)
[2018-08-06 11:00] VITALS: BP 99/49
--- NOTE | 2018-08-06 18:22 | PDOC3 ---
Discharge Summary Visit Information Date of Admission: Aug 05, 2018 Date of Discharge: Aug 06, 2018 Admitting Diagnosis: nausea Final Diagnosis UTI nausea and abdominal pain poor PO intake ESRD on HD Problems Medical Problems: (1) UTI (urinary tract infection) Status: Acute (2) Weakness Status: Acute Brief Hospital Course Allergies Allergies Coded Allergies Type Severity Reaction Last Updated Verified latex Allergy Intermediate Rash 12/30/17 Yes I S O L A T I O N *CONTACT* Allergy Unknown 12/30/17 Yes Vital Signs Vital Signs Date Time Temp Pulse Resp B/P (MAP) Pulse Ox O2 Delivery O2 Flow Rate FiO2 08/06/18 11:00 97.8 89 18 99/49 (66) 97 Room Air 97.8 Lab Results Laboratory Tests Test 08/05/18 06:13 08/05/18 07:35 08/05/18 09:46 08/05/18 12:10 Urine Collection Type Unknown Urine Color Yellow Urine Clarity Turbid Urine pH 7.5 Urine Specific [place] 1.015 Urine Protein >=300 mg/dL (NEG-TRACE) Urine Glucose (UA) Negative mg/dL (NEG) Urine Ketones (Stick) Negative mg/dL (NEG) Urine Blood Large (NEG) Urine Nitrite Negative (NEG) Urine Bilirubin Negative (NEG) Urine Urobilinogen Dipstick 0.2 mg/dL (0.2 mg/dL) Urine Leukocyte Esterase Large (NEG) Urine RBC Fobs /HPF (0-2) Urine WBC Tntc /HPF (0-4) Urine Bacteria Many /HPF (0-FEW) White Blood Count 8.5 x10^3/uL (4.0-11.0) Red Blood Count 3.68 x10^6/uL (3.50-5.40) Hemoglobin 11.7 g/dL (12.0-15.5) Hematocrit 35.0 % (36.0-47.0) Mean Corpuscular Volume 95 fL (79-100) Mean Corpuscular Hemoglobin 32 pg (25-35) Mean Corpuscular Hemoglobin Concent 33 g/dL (31-37) Red Cell Distribution Width 17.4 % (11.5-14.5) Platelet Count 113 x10^3/uL (140-400) Neutrophils (%) (Auto) 70 % (31-73) Lymphocytes (%) (Auto) 16 % (24-48) Monocytes (%) (Auto) 12 % (0-9) Eosinophils (%) (Auto) 1 % (0-3) Basophils (%) (Auto) 1 % (0-3) Neutrophils # (Auto) 6.0 x10^3uL (1.8-7.7) Lymphocytes # (Auto) 1.4 x10^3/uL (1.0-4.8) Monocytes # (Auto) 1.0 x10^3/uL (0.0-1.1) Eosinophils # (Auto) 0.1 x10^3/uL (0.0-0.7) Basophils # (Auto) 0.1 x10^3/uL (0.0-0.2) Sodium Level 134 mmol/L (136-145) Potassium Level 4.1 mmol/L (3.5-5.1) Chloride Level 96 mmol/L (98-107) Carbon Dioxide Level 27 mmol/L (21-32) Anion Gap 11 (6-14) Blood Urea Nitrogen 42 mg/dL (7-20) Creatinine 7.1 mg/dL (0.6-1.0) Estimated GFR (Cockcroft-Gault) 5.6 BUN/Creatinine Ratio 6 (6-20) Glucose Level 173 mg/dL (70-99) Lactic Acid Level 1.2 mmol/L (0.4-2.0) Calcium Level 8.7 mg/dL (8.5-10.1) Magnesium Level 1.9 mg/dL (1.8-2.4) Total Bilirubin 0.9 mg/dL (0.2-1.0) Aspartate Amino Transf (AST/SGOT) 15 U/L (15-37) Alanine Aminotransferase (ALT/SGPT) 15 U/L (14-59) Alkaline Phosphatase 147 U/L (46-116) Creatine Kinase 25 U/L (26-192) Creatine Kinase MB (Mass) < 0.5 ng/mL (0.0-3.6) Creatine Kinase MB Relative Index % (0-4) Troponin I Quantitative < 0.017 ng/mL (0.000-0.055) Total Protein 8.3 g/dL (6.4-8.2) Albumin 2.6 g/dL (3.4-5.0) Albumin/Globulin Ratio 0.5 (1.0-1.7) Glucose (Fingerstick) 160 mg/dL (70-99) 165 mg/dL (70-99) Test 08/05/18 16:37 08/05/18 19:43 08/06/18 07:11 Glucose (Fingerstick) 150 mg/dL (70-99) 127 mg/dL (70-99) 203 mg/dL (70-99) Laboratory Tests Test 08/05/18 19:43 08/06/18 07:11 Glucose (Fingerstick) 127 mg/dL (70-99) 203 mg/dL (70-99) Brief Hospital Course Ms. Beach is a 78 old admti with nausea, lethargy, poor appetite, UA was LE pos, mult bacteria, had some MDR bacteria, but that was 03/14. has 3 negative urine cx since, mult admtis she reports feeling much better after given rocephin, will try 7 days keflex, renal dose, repeat rocephin before DC exam improved, she felt at baseline face to face with pt and daughter > 35 minutes Discharge Information Condition at Discharge: Improved Disposition/Orders: D/C to Home Scheduled Aspirin (Aspir 81) 81 Mg Tablet., 1 TAB PO DAILY08 for heart health, #30 Ref 5 (Reported) Entered as Reported by: ARTURO CARDENAS on 06/03/14 1540 Last Taken: 81mg PO daily on 08/04/18 0700 Last Action: Continued on 1830 by DEJA CANTU MD Calcium Acetate (Calcium Acetate) 667 Mg Tablet, 2 CAP PO TIDAC for phosphate binder, (Reported) Entered as Reported by: MARIYA PEARL on 07/03/18 1019 Last Taken: 667mg PO TIDAC on 08/04/18 2100 Last Action: Converted on 08/05 by DEJA CANTU MD Cephalexin (Keflex) 250 Mg Capsule, 1 CAP PO DAILY for uti, #7 Prescribed by: ADAN THAKUR on 08/06/18 1043 Estradiol (Estrace) 42.5 Gm Cream.appl, 1 ODILIA VG 3X/WEEK for 14 Days, #14 Prescribed by: CHLOE SCHAFER on 03/21/18 1034 Last Taken: UNKNOWN on Unknown Date & Time Last Action: Continued on 08/05 by DEJA CANTU MD Insulin Aspart (Novolog) 100 Unit/1 Ml Cartridge, 6 UNIT SQ TIDAC for DM, ( Reported) Entered as Reported by: SANJANA HOOPER on 07/19/181612 Last Taken: 6 units SQ TIDAC on Unknown Date & Time Last Action: Converted on 08/05/181830 by DEJA CANTU MD Insulin Glargine,Hum.rec.anlog (Lantus Solostar) 100 Unit/1 Ml Insuln.pen, 6 UNIT SQ QHS for DM, #15 Ref 3 (Reported) Entered as Reported by: SANJANA HOOPER on 07/19/181612 Last Taken: 6 units SQ QHS on Unknown Date & Time Last Action: Continued on 08/05/181830 by DEJA CANTU MD Simvastatin (Simvastatin) 40 Mg Tablet, 1 TAB PO QHS for high cholesterol, #30 Ref 5 (Reported) Last dose given: 08-20-14 9:00 p.m. Next dose due: tonight Entered as Reported by: ARTURO CARDENAS on 06/03/14 1542 Last Taken: 40mg PO QHS on 08/03/18 0000 Last Action: Converted on 1830 by DEJA CANTU MD Scheduled PRN [regrenex] , TOP DAILY PRN for wound care, (Reported) Entered as Reported by: SANJANA HOOPER on 07/19/181612 Last Action: Last Taken Edited on 08/05/18 1304 by CINDY HINES Discontinued Medications Methenamine Hippurate (Methenamine Hippurate) 1 Gm Tablet, 1 GM PO DAILY PRN for urology, (Reported) Entered as Reported by: SANJANA HOOPER on 07/19/181612 Last Action: Discontinued on 08/05/181303 by ADAN GARY MD Aug 06, 2018 18:22
[2018-08-07] MEDS ORDERED: ESTRADIOL 0.01% VAGINAL CREAM 42.5GM TUBE. VG SCH (21:00)
== END 2018-08-06 11:30 | disposition home or self-care (01) | DRG 689 ==
LOC: ER 06:09 → 5 SOUTH 08:29
PROVIDERS: ADMIT Hospitalist; ATTEND Hospitalist
PROC: 5A1D70Z Performance of Urinary Filtration, Intermittent, Less than 6 Hours Per Day (ICD-10-PCS; principal; 2018-08-05)
DX: N30.01 Acute cystitis with hematuria (principal); N18.6 End stage renal disease; I12.0 Hypertensive chronic kidney disease with stage 5 chronic kidney disease or end stage renal disease; E11.22 Type 2 diabetes mellitus with diabetic chronic kidney disease; E78.00 Pure hypercholesterolemia, unspecified; M19.90 Unspecified osteoarthritis, unspecified site; E21.3 Hyperparathyroidism, unspecified; E78.5 Hyperlipidemia, unspecified; I25.10 Atherosclerotic heart disease of native coronary artery without angina pectoris; N31.2 Flaccid neuropathic bladder, not elsewhere classified; Z79.4 Long term (current) use of insulin; Z82.49 Family history of ischemic heart disease and other diseases of the circulatory system; Z99.2 Dependence on renal dialysis; Z95.1 Presence of aortocoronary bypass graft; Z79.899 Other long term (current) drug therapy; Z91.040 Latex allergy status
CPT/HCPCS: 36415; 80053; 81001; 82553; 82962; 83605; 83735; 84484; 85025; 86706; 87086; 87340; 93005; 96361; 96372; 96374; J0696; J1815; J7040; 99285-25

== ENCOUNTER → 2018-09-15 | Outpatient (CLI) | payer MEDICARE ==
[~2018-09-15] MED LIST changes: +AMOX1TAB11 PO; +AMOX1TAB58 PO; -CALC667T PO; +CALC667T4 PO; +CLOP75TA PO; +VIT1TABL71 PO
== END | disposition home or self-care (01) ==
LOC: PMGWOUND 08:07
PROVIDERS: ATTEND Preventive Medicine Undersea and Hyperbaric Medicine
DX: E11.621 Type 2 diabetes mellitus with foot ulcer (principal); L97.523 Non-pressure chronic ulcer of other part of left foot with necrosis of muscle; I12.0 Hypertensive chronic kidney disease with stage 5 chronic kidney disease or end stage renal disease; E11.22 Type 2 diabetes mellitus with diabetic chronic kidney disease; N18.6 End stage renal disease; E11.36 Type 2 diabetes mellitus with diabetic cataract; L84 Corns and callosities; F41.9 Anxiety disorder, unspecified; E78.5 Hyperlipidemia, unspecified; E78.00 Pure hypercholesterolemia, unspecified; K21.9 Gastro-esophageal reflux disease without esophagitis; I25.10 Atherosclerotic heart disease of native coronary artery without angina pectoris; E66.9 Obesity, unspecified; Z68.23 Body mass index [BMI] 23.0-23.9, adult; Z79.4 Long term (current) use of insulin; Z85.038 Personal history of other malignant neoplasm of large intestine
CPT/HCPCS: 97597

== ENCOUNTER → 2018-09-22 | Outpatient (CLI) | payer MEDICARE ==
[~2018-09-22] MED LIST changes: -AMOX1TAB11 PO; -AMOX1TAB58 PO; +CALC667T PO; -CALC667T4 PO; -CLOP75TA PO; -VIT1TABL71 PO
[2018-09-22 08:58] LABS: BASO # 0.1 x10^3/uL (0.0-0.2); BASO % 1 % (0-3); EOS # 0.1 x10^3/uL (0.0-0.7); EOS % 2 % (0-3); HEMATOCRIT 39.9 % (36.0-47.0); LYMPH # 1.8 x10^3/uL (1.0-4.8); LYMPH % 26 % (24-48); MEAN CORPUSCULAR HEMOGLOBIN 32 pg (25-35); MEAN CORPUSCULAR HGB CONC 33 g/dL (31-37); MEAN CORPUSCULAR VOLUME 98 fL (79-100); MONO # 0.6 x10^3/uL (0.0-1.1); MONO % 9 % (0-9); NEUT # 4.3 x10^3uL (1.8-7.7); NEUT % 63 % (31-73); PLATELET COUNT 142 x10^3/uL (140-400); RED BLOOD COUNT 4.08 x10^6/uL (3.50-5.40); RED CELL DISTRIBUTION WIDTH 17.5 % (11.5-14.5); WHITE BLOOD COUNT 6.9 x10^3/uL (4.0-11.0)
== END | disposition home or self-care (01) ==
LOC: PMGWOUND 07:06
PROVIDERS: ATTEND Preventive Medicine Undersea and Hyperbaric Medicine
DX: E11.621 Type 2 diabetes mellitus with foot ulcer (principal); L97.523 Non-pressure chronic ulcer of other part of left foot with necrosis of muscle; E11.36 Type 2 diabetes mellitus with diabetic cataract; I12.0 Hypertensive chronic kidney disease with stage 5 chronic kidney disease or end stage renal disease; E11.22 Type 2 diabetes mellitus with diabetic chronic kidney disease; N18.6 End stage renal disease; L84 Corns and callosities; E78.5 Hyperlipidemia, unspecified; F41.9 Anxiety disorder, unspecified; E21.3 Hyperparathyroidism, unspecified; E78.00 Pure hypercholesterolemia, unspecified; K21.9 Gastro-esophageal reflux disease without esophagitis; I25.10 Atherosclerotic heart disease of native coronary artery without angina pectoris; E66.9 Obesity, unspecified; Z68.23 Body mass index [BMI] 23.0-23.9, adult; Z79.4 Long term (current) use of insulin; Z99.2 Dependence on renal dialysis; Z85.038 Personal history of other malignant neoplasm of large intestine
CPT/HCPCS: 11042; 36415; 85025; 85651; 86140; 87071; 87075; 93923

== ENCOUNTER → 2018-09-29 | Outpatient (CLI) | payer MEDICARE | END | disposition home or self-care (01) | LOC: PMGWOUND 08:03 | PROVIDERS: ATTEND Preventive Medicine Undersea and Hyperbaric Medicine | DX: E11.621 Type 2 diabetes mellitus with foot ulcer (principal); L97.523 Non-pressure chronic ulcer of other part of left foot with necrosis of muscle; E11.36 Type 2 diabetes mellitus with diabetic cataract; I13.2 Hypertensive heart and chronic kidney disease with heart failure and with stage 5 chronic kidney disease, or end stage renal disease; E11.22 Type 2 diabetes mellitus with diabetic chronic kidney disease; N18.6 End stage renal disease; I50.9 Heart failure, unspecified; I25.10 Atherosclerotic heart disease of native coronary artery without angina pectoris; L84 Corns and callosities; E78.5 Hyperlipidemia, unspecified; F41.9 Anxiety disorder, unspecified; K21.9 Gastro-esophageal reflux disease without esophagitis; E21.3 Hyperparathyroidism, unspecified; E78.00 Pure hypercholesterolemia, unspecified; Z99.2 Dependence on renal dialysis; E66.9 Obesity, unspecified; Z68.23 Body mass index [BMI] 23.0-23.9, adult; Z79.4 Long term (current) use of insulin; Z85.038 Personal history of other malignant neoplasm of large intestine | CPT/HCPCS: 97597 ==

== ENCOUNTER → 2018-10-04 | Outpatient (CLI) | payer MEDICARE ==
--- NOTE | 2018-10-04 16:02 | RAD ---
Examination: Ultrasound left lower extremity arterial duplex and ankle brachial indices HISTORY: History of left medial and left lateral nonhealing foot ulcers, redness COMPARISON: None available. Technique: Grayscale, color Doppler 2-D, spectral waveform analysis of the left lower extremity arterial system were performed. Ankle-brachial indices are performed FINDINGS: The right brachial artery pressure is 129 mmHg. The right dorsalis pedis artery pressure is 130 mmHg. The left dorsalis pedis artery pressure 134 mmHg. The right DIRECTOR OF LOGISTICS pressure is 117 mmHg. The left DIRECTOR OF LOGISTICS pressure 142 mmHg. The right ankle brachial index is 1 and left ankle brachial index is 1.1. Moderate atherosclerotic plaque identified throughout the left lower extremity arterial system The following are the velocities: HR CLERK 95 cm/s, biphasic Deep femoral artery 91 cm/s, biphasic Proximal SFA 158 cm/s, biphasic Mid SFA 140 cm/s, biphasic Distal SFA 156 cm/s, biphasic Popliteal artery 157 cm/s, biphasic. Distal DIRECTOR OF LOGISTICS 23 cm/s monophasic Peroneal artery 250 cm/s, biphasic Anterior tibialis artery 101 cm/s, monophasic Dorsalis pedis artery 164 cm/s, monophasic. IMPRESSION: 1. Greater than 50 percent stenosis identified in the peroneal artery. Diffuse moderate atherosclerotic calcifications identified in the left lower extremity arterial system. 2. Increased velocities identified in the superficial femoral artery and the dorsalis pedis artery. 3. Normal bilateral ankle-brachial indices. Electronically signed by: Tom Taveras MD (10/04/2018 3:58 PM) [facility]
--- NOTE | 2018-10-04 16:02 | RAD ---
Examination: Ultrasound left lower extremity arterial duplex and ankle brachial indices HISTORY: History of left medial and left lateral nonhealing foot ulcers, redness COMPARISON: None available. Technique: Grayscale, color Doppler 2-D, spectral waveform analysis of the left lower extremity arterial system were performed. Ankle-brachial indices are performed FINDINGS: The right brachial artery pressure is 129 mmHg. The right dorsalis pedis artery pressure is 130 mmHg. The left dorsalis pedis artery pressure 134 mmHg. The right NUCLEAR POWERPLANT MECHANIC pressure is 117 mmHg. The left NUCLEAR POWERPLANT MECHANIC pressure 142 mmHg. The right ankle brachial index is 1 and left ankle brachial index is 1.1. Moderate atherosclerotic plaque identified throughout the left lower extremity arterial system The following are the velocities: BONDED STRUCTURES REPAIRER 95 cm/s, biphasic Deep femoral artery 91 cm/s, biphasic Proximal SFA 158 cm/s, biphasic Mid SFA 140 cm/s, biphasic Distal SFA 156 cm/s, biphasic Popliteal artery 157 cm/s, biphasic. Distal NUCLEAR POWERPLANT MECHANIC 23 cm/s monophasic Peroneal artery 250 cm/s, biphasic Anterior tibialis artery 101 cm/s, monophasic Dorsalis pedis artery 164 cm/s, monophasic. IMPRESSION: 1. Greater than 50 percent stenosis identified in the peroneal artery. Diffuse moderate atherosclerotic calcifications identified in the left lower extremity arterial system. 2. Increased velocities identified in the superficial femoral artery and the dorsalis pedis artery. 3. Normal bilateral ankle-brachial indices. Electronically signed by: Tom Taveras MD (10/04/2018 3:58 PM) [facility]
== END | disposition home or self-care (01) ==
LOC: US 14:43
PROVIDERS: ATTEND Preventive Medicine Undersea and Hyperbaric Medicine
DX: I70.202 Unspecified atherosclerosis of native arteries of extremities, left leg (principal); I10 Essential (primary) hypertension; E78.00 Pure hypercholesterolemia, unspecified; E11.9 Type 2 diabetes mellitus without complications
CPT/HCPCS: 93922; 93926

== ENCOUNTER → 2018-10-06 | Outpatient (CLI) | payer MEDICARE | END | disposition home or self-care (01) | LOC: PMGWOUND 07:58 | PROVIDERS: ATTEND Preventive Medicine Undersea and Hyperbaric Medicine | DX: E11.621 Type 2 diabetes mellitus with foot ulcer (principal); L97.523 Non-pressure chronic ulcer of other part of left foot with necrosis of muscle; E11.36 Type 2 diabetes mellitus with diabetic cataract; I13.2 Hypertensive heart and chronic kidney disease with heart failure and with stage 5 chronic kidney disease, or end stage renal disease; E11.22 Type 2 diabetes mellitus with diabetic chronic kidney disease; N18.6 End stage renal disease; I50.9 Heart failure, unspecified; L84 Corns and callosities; E78.5 Hyperlipidemia, unspecified; F41.9 Anxiety disorder, unspecified; E21.3 Hyperparathyroidism, unspecified; E78.00 Pure hypercholesterolemia, unspecified; K21.9 Gastro-esophageal reflux disease without esophagitis; I25.10 Atherosclerotic heart disease of native coronary artery without angina pectoris; E66.9 Obesity, unspecified; Z68.23 Body mass index [BMI] 23.0-23.9, adult; Z99.2 Dependence on renal dialysis; Z79.4 Long term (current) use of insulin; Z85.038 Personal history of other malignant neoplasm of large intestine | CPT/HCPCS: 11042 ==

== ENCOUNTER → 2018-10-13 | Outpatient (CLI) | payer MEDICARE | END | disposition home or self-care (01) | LOC: PMGWOUND 08:00 | PROVIDERS: ATTEND Preventive Medicine Undersea and Hyperbaric Medicine | DX: E11.621 Type 2 diabetes mellitus with foot ulcer (principal); L97.523 Non-pressure chronic ulcer of other part of left foot with necrosis of muscle; E11.36 Type 2 diabetes mellitus with diabetic cataract; I13.2 Hypertensive heart and chronic kidney disease with heart failure and with stage 5 chronic kidney disease, or end stage renal disease; E11.22 Type 2 diabetes mellitus with diabetic chronic kidney disease; N18.6 End stage renal disease; I50.9 Heart failure, unspecified; L84 Corns and callosities; E78.5 Hyperlipidemia, unspecified; F41.9 Anxiety disorder, unspecified; E21.3 Hyperparathyroidism, unspecified; K21.9 Gastro-esophageal reflux disease without esophagitis; I25.10 Atherosclerotic heart disease of native coronary artery without angina pectoris; E78.00 Pure hypercholesterolemia, unspecified; E66.9 Obesity, unspecified; Z68.23 Body mass index [BMI] 23.0-23.9, adult; Z79.4 Long term (current) use of insulin; Z99.2 Dependence on renal dialysis; Z85.038 Personal history of other malignant neoplasm of large intestine | CPT/HCPCS: 11042 ==

== ENCOUNTER → 2018-10-16 | Outpatient (CLI) | payer MEDICARE ==
[~2018-10-16] MED LIST changes: +AMOX1TAB58 PO; +CLOP75TA PO
--- NOTE | 2018-10-16 17:12 | RAD ---
Three-phase bone scan, 10/16/2018: HISTORY: Nonhealing wound, lateral left foot Imaging of both feet was performed following IV injection of 25 mCi of technetium 99m MDP. The dynamic images demonstrate generalized hyperemia about the left foot and ankle compared to the right. This is also evident on the blood pool image where the activity is greatest at the level of the forefoot and the ankle joint. Delayed images demonstrate markedly increased activity centered at the left first MTP joint level. There is moderately increased activity at the left ankle joint. There is mildly increased activity along the posterior margin of the left calcaneus. No avid uptake is seen laterally where reportedly a foot wound is present. Clinical correlation with the exact site of the patient's wound is suggested. Several foci of slightly increased activity at the right foot and ankle are likely on an arthritic basis. IMPRESSION: 1. Generalized hyperemia about the left foot and ankle. 2. Markedly increased activity centered at the left first MTP joint level which could be arthritic, posttraumatic or infectious. Correlation with foot radiographs is suggested. 2. Moderately increased activity at the left ankle joint level. 3. Mildly increased activity along the posterior margin of the left calcaneus. Electronically signed by: Armen Pyle MD (10/16/2018 5:10 PM) [facility]
== END | disposition home or self-care (01) ==
LOC: NM 07:44
PROVIDERS: ATTEND Preventive Medicine Undersea and Hyperbaric Medicine
DX: L97.529 Non-pressure chronic ulcer of other part of left foot with unspecified severity (principal); C50.411 Malignant neoplasm of upper-outer quadrant of right female breast; M89.8X9 Other specified disorders of bone, unspecified site; R68.89 Other general symptoms and signs; Z17.0 Estrogen receptor positive status [ER+]
CPT/HCPCS: 78315; 96374; A9503

== ENCOUNTER 2018-10-18 06:39 | Outpatient (CLI) | payer MEDICARE ==
[~2018-10-18] VITALS: Ht 162.6 cm; Wt 61.7 kg
[2018-10-18] VITALS (8 sets, daily range): BP systolic 111–140; BP diastolic 43–68
[~2018-10-18 06:39] MED LIST changes: -AMOX1TAB58 PO; -CALC667T PO; +CALC667T4 PO; -CLOP75TA PO
[2018-10-18] MEDS ORDERED: AMOX1TAB58 PO (07:14)
[2018-10-18] MEDS ORDERED: IODIXANOL 320 MG/ML 100 ML VIAL. ONE ×2 (07:24→10:21)
[2018-10-18] MEDS ORDERED: LIDOCAINE WITH 8.4% SOD BICARB 3 ML DISP.SYRIN. ONE (07:24)
[2018-10-18] MEDS ORDERED: MIDAZOLAM HCL/PF 5 MG/5 ML VIAL. ONE (07:36)
[2018-10-18] MEDS ORDERED: fentaNYL PF VIAL 100 MCG/2 ML VIAL ONE (07:36)
[2018-10-18 07:55] LABS: BASO # 0.1 x10^3/uL (0.0-0.2); BASO % 1 % (0-3); EOS # 0.2 x10^3/uL (0.0-0.7); EOS % 3 % (0-3); HEMATOCRIT 37.5 % (36.0-47.0); HEMOGLOBIN 12.2 g/dL (12.0-15.5); LYMPH # 1.7 x10^3/uL (1.0-4.8); LYMPH % 29 % (24-48); MEAN CORPUSCULAR HEMOGLOBIN 32 pg (25-35); MEAN CORPUSCULAR HGB CONC 33 g/dL (31-37); MEAN CORPUSCULAR VOLUME 98 fL (79-100); MONO # 0.5 x10^3/uL (0.0-1.1); MONO % 8 % (0-9); NEUT # 3.4 x10^3uL (1.8-7.7); NEUT % 58 % (31-73); PLATELET COUNT 181 x10^3/uL (140-400); RED BLOOD COUNT 3.81 x10^6/uL (3.50-5.40); RED CELL DISTRIBUTION WIDTH 16.1 % (11.5-14.5); WHITE BLOOD COUNT 5.9 x10^3/uL (4.0-11.0)
[2018-10-18 07:56] LABS: GFR 8.4; POTASSIUM 4.3 mmol/L (3.5-5.1)
[2018-10-18 08:13] LABS: PROTHROMBIN TIME PATIENT 12.9 SEC (11.7-14.0)
[2018-10-18] MEDS ORDERED: fentaNYL PF VIAL 100 MCG/2 ML VIAL IV ONE (09:30)
[2018-10-18] MEDS ORDERED: MIDAZOLAM HCL/PF 5 MG/5 ML VIAL. IV ONE (09:30)
[2018-10-18] MEDS ORDERED: LIDOCAINE WITH 8.4% SOD BICARB 3 ML DISP.SYRIN. IJ ONE (09:30)
[2018-10-18] MEDS ORDERED: IODIXANOL 320 MG/ML 100 ML VIAL. IART ONE (09:30)
[2018-10-18] MEDS ORDERED: CONTRAST GIVEN. MC PRN (09:45)
[2018-10-18] MEDS ORDERED: HEPARIN for IV BOLUS 10,000 UNIT/10 ML VIAL. ONE (09:57)
[2018-10-18] MEDS ORDERED: HEPARIN for IV BOLUS 10,000 UNIT/10 ML VIAL. IV ONE (10:30)
[2018-10-18] MEDS ORDERED: CLOPIDOGREL BISULFATE 75 MG TABLET PO ONE (11:15)
[2018-10-18] MEDS ORDERED: CLOPIDOGREL BISULFATE 75 MG TABLET ONE (11:15)
--- NOTE | 2018-10-18 11:57 | PDOC ---
MODERATE SEDATION ASSESSMENT RISKS/ALTERNATIVES Risks/Alternatives Risks and alternatives of this type of sedation and procedure discussed with: RISK/ALTERNATIVES: Patient H & P ON CHART H & P H & P on chart and reviewed for co-morbid conditions and appropriate labs. H&P ON CHART: Yes STATUS PREG STATUS ASSESSED: Yes MEDS/ALLERGIES REVIEWED Meds/Allergies Reviewed Medications and Allergies including time and route of recently administered narcotics and sedatives. MEDS/ALLERGIES REVIEWED: Yes ASA RATING ASA RATING: II AIRWAY ASSESSMENT Airway Assessment Airway patency, oral function limitations, presence of caps, crowns, dentures, partials, and ability to extend neck assessed. AIRWAY ASSESSMENT: Yes MALLAMPATI SCORE MALLAMPATI SCORE: II PRE-SEDATION ASSESSMENT PRE-SEDATION ASSESSMENT: Yes BRAN SARABIA MD Oct 18, 2018 11:57
--- NOTE | 2018-10-18 12:00 | PDOC1 ---
History and Physical Date of Procedure Date of Admission Procedure Procedure Aortogram with LLE runoff and intervention Indication Indication Critical limb ischemia History of Present Illness Reason for Visit adult female diabetic with non-healing left foot wounds Past Medical History Past Medical History see nursing pre-op assessment Current Medications Current Medications Current Medications Iodixanol (Visipaque 320) 100 ml STK-MED ONCE .ROUTE ; Start 10/18/18 at 07:24; Stop 10/18/18 at 07:25; Status DC Lidocaine/Sodium Bicarbonate (Buffered Lidocaine 1%) 3 ml STK-MED ONCE .ROUTE ; Start 10/18/18 at 07:24; Stop 10/18/18 at 07:25; Status DC Heparin Sodium/ Sodium Chloride 1,000 ml @ As Directed STK-MED ONCE .ROUTE ; Start 10/18/18 at 07:24; Stop 10/18/18 at 07:25; Status DC Midazolam HCl (Versed) 5 mg STK-MED ONCE .ROUTE ; Start 10/18/18 at 07:36; Stop 10/18/18 at 07:37; Status DC Fentanyl Citrate (Fentanyl 2ml Vial) 100 mcg STK-MED ONCE .ROUTE ; Start at 07:36; Stop 10/18/18 at 07:37; Status DC Heparin Sodium/ Sodium Chloride (HEPARIN for ARTERIAL LINE FLUSH) 1,000 unit 1X ONCE IART ; Start 10/18/18 at 09:30; Stop 10/18/18 at 09:33; Status DC Heparin Sodium/ Sodium Chloride (HEPARIN for ARTERIAL LINE FLUSH) 1,000 unit 1X ONCE IART ; Start 10/18/18 at 09:30; Stop 10/18/18 at 09:33; Status DC Lidocaine/Sodium Bicarbonate (Buffered Lidocaine 1%) 3 ml 1X ONCE IJ ; Start at 09:30; Stop 10/18/18 at 09:33; Status DC Midazolam HCl (Versed) 5 mg 1X ONCE IV ; Start 10/18/18 at 09:30; Stop at 09:33; Status DC Fentanyl Citrate (Fentanyl 2ml Vial) 100 mcg 1X ONCE IV ; Start 10/18/18 at 09: 30; Stop 10/18/18 at 09:33; Status DC Iodixanol (Visipaque 320) 100 ml 1X ONCE IART ; Start 10/18/18 at 09:30; Stop 10/18/18 at 09:33; Status DC Info (CONTRAST GIVEN -- Rx MONITORING) 1 each PRN DAILY PRN MC SEE COMMENTS; Start 10/18/18 at 09:45; Stop 10/20/18 at 09:44 Heparin Sodium (Porcine) (Heparin Sodium) 10,000 unit STK-MED ONCE .ROUTE ; Start 10/18/18 at 09:57; Stop 10/18/18 at 09:58; Status DC Iodixanol (Visipaque 320) 100 ml STK-MED ONCE .ROUTE ; Start 10/18/18 at 10:21; Stop 10/18/18 at 10:22; Status DC Heparin Sodium (Porcine) (Heparin Sodium) 5,000 unit 1X ONCE IV ; Start at 10:30; Stop 10/18/18 at 10:31; Status DC Clopidogrel Bisulfate (Plavix) 300 mg 1X ONCE PO ; Start 10/18/18 at 11:15; Stop 10/18/18 at 11:17; Status DC Clopidogrel Bisulfate (Plavix) 75 mg STK-MED ONCE .ROUTE ; Start 10/18/18 at 11: 15; Stop 10/18/18 at 11:16; Status DC Active Scripts Active Estrace (Estradiol) 42.5 Gm Cream.appl 1 Scotty VG 3X/WEEK 14 Days Reported Augmentin 500-125 Tablet (Amoxicillin/Potassium Clav) 1 Each Tablet 1 Tab PO BID Novolog (Insulin Aspart) 100 Unit/1 Ml Cartridge 6 Unit SQ TIDAC Lantus Solostar (Insulin Glargine,Hum.rec.anlog) 100 Unit/1 Ml Insuln.pen 6 Unit SQ QHS [regrenex] TOP DAILY PRN Calcium Acetate 667 Mg Tablet 2 Cap PO TIDAC Simvastatin 40 Mg Tablet 1 Tab PO QHS Last dose given: 08-20-14 9:00 p.m. Next dose due: tonight Aspir 81 (Aspirin) 81 Mg Tablet. 1 Tab PO DAILY08 Allergies Allergies: Coded Allergies: latex (Verified Allergy, Intermediate, Rash, 12/30/17) I S O L A T I O N *CONTACT* (Verified Allergy, Unknown, 10/18/18) ESBL urine 03/16/18 Physical Exam Vital Signs Vital Signs Date Time Temp Pulse Resp B/P (MAP) Pulse Ox O2 Delivery O2 Flow Rate FiO2 10/18/18 07:53 97.6 84 24 140/64 (89) 95 Room Air 97.6 Assessment Assessment critical limb ischemia Plan Plan Aortogram and intervention to BRAN MCCABE MD Oct 18, 2018 12:00
--- NOTE | 2018-10-18 12:03 | PDOC ---
BRIEF OPERATIVE NOTE Pre-Op Diagnosis critical limb ischemia Post-Op Diagnosis same Procedure Performed Aortogram, LLE arteriogram, left posterior tibial and popliteal artery angioplasty Surgeon Shanita Anesthesia Type: Conscious Sedation Findings Tandem moderate left pop artery stenoses improved after DCB angioplasty. Complete occlusion of the PT including the medial and lateral planter arteries. PT was recanalized to the ankle and there is improved retrograde flow to the pedal arch and areas of wounds via a widely patent AT at the conclusion of the procedure. Complications No immediate Additional Remarks Recommend dual antiplatelet therapy for 6 weeks followed by ASA monotherapy for life after that. BRAN SARABIA MD Oct 18, 2018 12:03
[2018-10-18] MEDS ORDERED: CLOP75TA PO (13:20)
--- NOTE | 2018-10-18 14:00 | NUR ---
Pt completed 2 hour flat recovery, pt up to sitting position, groin site remains clean and dry. PABLO RN
--- NOTE | 2018-10-18 14:22 | NUR ---
Discharge Note: KASIE LOCKHART Discharge instructions and discharge home medications reviewed with Patient and a copy given. All questions have been answered and understanding verbalized. The following instructions and handouts were given: education was given to patient regarding moderate sedation, groin site care, and PVD. Pt was also instructed to continue home medications as directed. Pt and daughter verbalized understanding. Pt ws also given Plavix rx. Discontinued lines and drains: peripheral iv was discontinued with no complications. Catheter tip was intact. Patient discharged to home with self care via wheelchair. Pt accompanied by daughter.
--- NOTE | 2018-10-18 15:22 | RAD ---
Procedure: Aortogram, left larger arteriogram, popliteal artery angioplasty, and posterior tibial artery angioplasty. Clinical Indication: 78-year-old female with nonhealing wounds on the left foot, history of diabetes. Sedation: Conscious sedation was administered with a total intraprocedural [id number]-[id number] time of 150 minutes. The patient was monitored by a qualified independent observer throughout the time of sedation. Please refer to the medical record for exact doses of medications utilized to achieve moderate sedation. Antibiotics: None Exposure: Kerma-Area Product: 115 Gycm2 Contrast: 90 cc of Visipaque 320 contrast media Sterility: All elements of maximal sterile barrier technique including the use of a cap, mask, sterile gown, sterile gloves, large sterile sheet, appropriate hand hygiene, and 2% chlorhexidine for cutaneous antisepsis (or acceptable alternative antiseptic per current guidelines) were followed for this procedure. If ultrasound guidance was utilized, sterile ultrasound techniques were followed including use of a sterile probe cover. Consent: The procedure was explained in its entirety to the patient or the patients designated event representative by a member of the treatment team, including a discussion of the risks, benefits and commonly accepted alternatives to the procedure, as well as the expected consequences of no therapy whatsoever. Discussion of the risks included, but was not limited to, those that are most frequent and those that are rare but possibly severe or life-threatening, as well as the possibility of unforeseen complications. Technique and Findings: Following informed consent, the patient was prepped and draped in usual sterile fashion. Ultrasound interrogation of the right groin revealed patency of the right common femoral artery. A Hardcopy ultrasound image was recorded. As a 21-gauge micropuncture needle was used to gain access to this vessel. The needle was exchanged over wire for 5 Qatari sheath. A flush catheter was advanced into the abdominal aorta and contrast aortography was performed. There is mild aortic atherosclerosis with no clinically significant stenosis or aneurysm identified. Single bilateral renal arteries are noted, with extensive peripheral pruning of the distal branches consistent with the patient's known stage IV renal disease. The celiac artery, superior mesenteric artery, and inferior mesenteric artery all fill symmetrically, with mild atherosclerosis seen within the superior mesenteric artery peripherally. The catheter was then withdrawn to just above the aortic bifurcation and contrast angiography of the pelvis was performed in multiple obliquities. The iliac and common femoral arteries are widely patent. The angled catheter was then used in conjunction with Glidewire to cross the aortic bifurcation and gain access to the contralateral left common femoral artery. Contrast angiography of the left leg was then performed. This effaces patent, with several tandem [id number] stenoses within the mid and distal segments. Popliteal artery is notable for 2 tandem stenoses of greater than 50%. The tibioperoneal trunk has mild disease. The anterior tibial artery is the dominant runoff vessel and is widely patent to the foot with in-line flow into a healthy dorsalis pedis artery. Tibioperoneal trunk gives rise to a small but patent peroneal artery which flows to the level the ankle and reconstitutes several small branches about the medial malleolus without definitely reconstituting the distal posterior tibial artery. The posterior tibial artery itself is occluded throughout its entirety. 5 Qatari sheath was then exchanged for a long 6 Qatari sheath which was advanced to the contralateral left common femoral artery. An angled catheter and Glidewire were used to select the tibioperoneal trunk. The patient was given heparin intravenously, and a quick cross catheter was using injection with a hyperechoic wire to gain access to the occluded posterior tibial artery. This vessel was then recanalized to the level of the ankle. Angioplasty using a 2 mm x 200 mm and post balloon was performed initially, with a second treatment using a 1.5 mm x 40 mm angioplasty balloon distally at the level the ankle. This resulted in confucianism of radiographic flow directly to the posterior tibial ankle, including demonstration of collateral flow to the peroneal artery. The plantar artery is now seen, but is extensively diseased and perfused only by a neck workup very small collateral vessels about the calcaneus. Multiple attempts to reconstruct in-line flow to the plantar artery are unsuccessful. The catheter was then withdrawn from the posterior tibial artery and advanced into the anterior tibial artery and further to the level of the dorsalis pedis artery. Contrast angiography of the dorsalis pedis artery was performed demonstrating nicely the pedal arch, with retrograde flow into the very diminutive plantar artery. Also noted is hyperemia about both medial and lateral wounds. Given this retrograde flow coupled with breast or flow to the posterior tibial artery, attempted retrograde angioplasty of the the large bore was not undertaken. The catheter was withdrawn and a 4 mm x 100 mm angioplasty balloon was advanced across the tandem stenoses within the popliteal artery and inflated to full profile for 3 minutes. A second similar angioplasty treatment was performed within the distal superficial femoral artery. The balloon was then exchanged for a 4 mm x 120 mm drug coated balloon, and angioplasty of the popliteal and distal SFA segments was performed for 3 minutes. Completion angiogram demonstrated markedly improved angiographic appearance with minimal residual stenosis. The balloon was then removed and the sheath was retracted to the right groin and contrast angiography was performed to assess for suitability of a closure device. The sheath was then exchanged for a minx closure device which was successfully utilized to obtain hemostasis. Complications: No immediate Impression: 1. Moderate tandem atherosclerotic stenoses involving the left popliteal artery, with mild to moderate tandem stenoses within the distal SFA. 2. Complete occlusion of the right posterior tibial artery with absence of antegrade flow into the pedal arch at baseline. 3. Markedly improved angiographic appearance of the distal SFA and popliteal disease status post the CBD angioplasty as described above. 4. Recanalize posterior tibial artery to the level the ankle, with restored visualization of the diminutive and diffusely diseased plantar artery, via several small calcaneal collaterals. Recommendations: Dual antiplatelet therapy for 6 weeks followed by monotherapy for life thereafter with aspirin.
== END 2018-10-18 14:30 | disposition home or self-care (01) ==
LOC: INTRAD 06:39
PROVIDERS: ATTEND Emergency Medicine Undersea and Hyperbaric Medicine
DX: I70.245 Atherosclerosis of native arteries of left leg with ulceration of other part of foot (principal); E11.621 Type 2 diabetes mellitus with foot ulcer; L97.523 Non-pressure chronic ulcer of other part of left foot with necrosis of muscle; Z88.1 Allergy status to other antibiotic agents; Z91.040 Latex allergy status; Z79.84 Long term (current) use of oral hypoglycemic drugs; Z79.01 Long term (current) use of anticoagulants; Z79.899 Other long term (current) drug therapy
CPT/HCPCS: 36415; 37224; 37228; 75625; 75710; 76937; 80048; 85025; 85610; 85730; 99152; 99153; A4215; C1713; C1725; C1760; C1769; C1892; C1894; C2623; J1644; J2250; J3010; Q9967; G0269

== ENCOUNTER → 2018-10-20 | Outpatient (CLI) | payer MEDICARE ==
[2018-10-18 14:00] VITALS: BP 121/50
[~2018-10-20] MED LIST changes: +AMOX1TAB11 PO; +AMOX1TAB58 PO; +CLOP75TA PO; +VIT1TABL71 PO
== END | disposition home or self-care (01) ==
LOC: PMGWOUND 08:00
PROVIDERS: ATTEND Preventive Medicine Undersea and Hyperbaric Medicine
DX: E11.621 Type 2 diabetes mellitus with foot ulcer (principal); L97.523 Non-pressure chronic ulcer of other part of left foot with necrosis of muscle; E11.36 Type 2 diabetes mellitus with diabetic cataract; I13.2 Hypertensive heart and chronic kidney disease with heart failure and with stage 5 chronic kidney disease, or end stage renal disease; E11.22 Type 2 diabetes mellitus with diabetic chronic kidney disease; N18.6 End stage renal disease; I50.9 Heart failure, unspecified; L84 Corns and callosities; E78.5 Hyperlipidemia, unspecified; F41.9 Anxiety disorder, unspecified; E21.3 Hyperparathyroidism, unspecified; E78.00 Pure hypercholesterolemia, unspecified; K21.9 Gastro-esophageal reflux disease without esophagitis; I25.10 Atherosclerotic heart disease of native coronary artery without angina pectoris; E66.9 Obesity, unspecified; Z68.23 Body mass index [BMI] 23.0-23.9, adult; Z99.2 Dependence on renal dialysis; Z79.4 Long term (current) use of insulin; Z85.3 Personal history of malignant neoplasm of breast; Z85.038 Personal history of other malignant neoplasm of large intestine
CPT/HCPCS: 11042

== ENCOUNTER → 2018-10-27 | Outpatient (CLI) | payer MEDICARE ==
[2018-10-18 14:00] VITALS: BP 121/50
== END | disposition home or self-care (01) ==
LOC: PMGWOUND 07:57
PROVIDERS: ATTEND Preventive Medicine Undersea and Hyperbaric Medicine
DX: E11.621 Type 2 diabetes mellitus with foot ulcer (principal); L97.523 Non-pressure chronic ulcer of other part of left foot with necrosis of muscle; E11.36 Type 2 diabetes mellitus with diabetic cataract; I13.2 Hypertensive heart and chronic kidney disease with heart failure and with stage 5 chronic kidney disease, or end stage renal disease; E11.22 Type 2 diabetes mellitus with diabetic chronic kidney disease; N18.6 End stage renal disease; I50.9 Heart failure, unspecified; L84 Corns and callosities; E78.5 Hyperlipidemia, unspecified; F41.9 Anxiety disorder, unspecified; K21.9 Gastro-esophageal reflux disease without esophagitis; E21.3 Hyperparathyroidism, unspecified; I25.10 Atherosclerotic heart disease of native coronary artery without angina pectoris; E66.9 Obesity, unspecified; Z68.23 Body mass index [BMI] 23.0-23.9, adult; Z99.2 Dependence on renal dialysis; Z79.4 Long term (current) use of insulin; Z85.3 Personal history of malignant neoplasm of breast; Z79.84 Long term (current) use of oral hypoglycemic drugs; Z85.038 Personal history of other malignant neoplasm of large intestine
CPT/HCPCS: 99214; G0463

== ENCOUNTER → 2018-11-03 | Outpatient (CLI) | payer MEDICARE ==
[2018-10-18 14:00] VITALS: BP 121/50
== END | disposition home or self-care (01) ==
LOC: PMGWOUND 07:59
PROVIDERS: ATTEND Preventive Medicine Undersea and Hyperbaric Medicine
DX: E11.621 Type 2 diabetes mellitus with foot ulcer (principal); L97.523 Non-pressure chronic ulcer of other part of left foot with necrosis of muscle; E11.36 Type 2 diabetes mellitus with diabetic cataract; I13.2 Hypertensive heart and chronic kidney disease with heart failure and with stage 5 chronic kidney disease, or end stage renal disease; E11.22 Type 2 diabetes mellitus with diabetic chronic kidney disease; N18.6 End stage renal disease; I50.9 Heart failure, unspecified; L84 Corns and callosities; E78.5 Hyperlipidemia, unspecified; F41.9 Anxiety disorder, unspecified; E21.3 Hyperparathyroidism, unspecified; E78.00 Pure hypercholesterolemia, unspecified; K21.9 Gastro-esophageal reflux disease without esophagitis; I25.10 Atherosclerotic heart disease of native coronary artery without angina pectoris; E66.9 Obesity, unspecified; Z68.23 Body mass index [BMI] 23.0-23.9, adult; Z85.3 Personal history of malignant neoplasm of breast; Z99.2 Dependence on renal dialysis; Z79.4 Long term (current) use of insulin; Z79.84 Long term (current) use of oral hypoglycemic drugs; Z85.038 Personal history of other malignant neoplasm of large intestine
CPT/HCPCS: 11042

== ENCOUNTER → 2018-11-10 | Outpatient (CLI) | payer MEDICARE ==
[2018-10-18 14:00] VITALS: BP 121/50
== END | disposition home or self-care (01) ==
LOC: PMGWOUND 07:55
PROVIDERS: ATTEND Preventive Medicine Undersea and Hyperbaric Medicine
DX: E11.621 Type 2 diabetes mellitus with foot ulcer (principal); L97.523 Non-pressure chronic ulcer of other part of left foot with necrosis of muscle; E11.36 Type 2 diabetes mellitus with diabetic cataract; I13.2 Hypertensive heart and chronic kidney disease with heart failure and with stage 5 chronic kidney disease, or end stage renal disease; E11.22 Type 2 diabetes mellitus with diabetic chronic kidney disease; N18.6 End stage renal disease; I50.9 Heart failure, unspecified; L84 Corns and callosities; E78.00 Pure hypercholesterolemia, unspecified; E78.5 Hyperlipidemia, unspecified; E21.3 Hyperparathyroidism, unspecified; F41.9 Anxiety disorder, unspecified; K21.9 Gastro-esophageal reflux disease without esophagitis; I25.10 Atherosclerotic heart disease of native coronary artery without angina pectoris; E66.9 Obesity, unspecified; Z68.23 Body mass index [BMI] 23.0-23.9, adult; Z99.2 Dependence on renal dialysis; Z79.4 Long term (current) use of insulin; Z79.84 Long term (current) use of oral hypoglycemic drugs; Z85.3 Personal history of malignant neoplasm of breast; Z88.1 Allergy status to other antibiotic agents; Z85.038 Personal history of other malignant neoplasm of large intestine
CPT/HCPCS: 11042

== ENCOUNTER 2018-11-16 06:21 | Inpatient (IN) | payer MEDICARE ==
[~2018-11-16] VITALS: Ht 162.6 cm; Wt 61.7 kg
[~2018-11-16 06:21] MED LIST changes: -AMOX1TAB11 PO; -VIT1TABL71 PO
--- NOTE | 2018-11-16 06:45 | PHYS DOC ---
Past Medical History Past Medical History: Arthritis, Diabetes-Type II, High Cholesterol, Hypertension, Renal Disease, Renal Failure, UTI Additional Past Medical Histor: hyperkalemia, bladder retention, urinary stents Past Surgical History: Coronary Bypass Surgery Additional Past Surgical Histo: benign tumor removed from colon, bladder stent removed and reinserted, Past Surgical History left dialysis fistula present Alcohol Use: None Drug Use: None Adult General Chief Complaint Chief Complaint: right flank pain HPI HPI This is a pleasant 78-year-old female presenting the emergency department today with generalized weakness and myalgias with nausea with a few episodes of nonbilious nonbloody emesis. She also has right flank pain. The pain is a sharp shooting nonradiating pain without alleviating factors. She denies hematuria but has noticed mildly cloudy urine. She is an end-stage renal disease patient who receives dialysis on Tuesday Wed Tuesday. She has had a low-grade temperature but denies any recent flu exposure. She has not had a cough or upper respiratory tract infection symptoms. Review of systems is negative for chest pain abdominal pain. Negative for headache neck stiffness. Positive for nausea and myalgias and right flank pain. All other review of systems is negative unless otherwise noted in history of present illness. ED course: 78-year-old female presenting the emergency department today with right flank pain and generalized fatigue and malaise associated with myalgias with low-grade temperature. On arrival heart rate is mildly elevated at 104. Temperature mildly elevated at 99.8. Blood pressure is elevated at 163 systolic. Exam below. Blood work and urinalysis along with CT ordered. Urinalysis shows large blood and large leuk esterase with many bacteria and white blood cells. Potassium is minimally elevated at 5.2. Otherwise glucose is elevated, 225. CT the abdomen pelvis shows chronic thickening of the ureters and nodular thickening of the bladder. Patient has urinary tract infection on urinalysis and her clinical presentation is suggestive of pyelonephritis. White blood cell count is 10,000. Hemoglobin is 11,000. Influenza test is negative. We will give the patient IV Rocephin and admit her to the hospital for IV antibiotics. I spoke with Dr. Jin at approximately 8:00 AM who agrees with plan and accepts the patient for admission. Review of Systems Review of Systems SEE ABOVE. Current Medications Current Medications Current Medications Medications (Trade) Dose Ordered Sig/Claudette Start Time Stop Time Status Last Admin Dose Admin Ceftriaxone Sodium (Rocephin) 1 gm 1X ONCE 11/16/18 07:45 11/16/18 07:46 DC Morphine Sulfate (Morphine Sulfate) 2 mg PRN Q2HR PRN 11/16/18 07:45 11/17/18 07:44 Ondansetron HCl (Zofran) 4 mg PRN Q8HRS PRN 11/16/18 07:45 11/17/18 07:44 Allergies Allergies Allergies Coded Allergies Type Severity Reaction Last Updated Verified latex Allergy Intermediate Rash 12/30/17 Yes I S O L A T I O N *CONTACT* Allergy Unknown 10/18/18 Yes Physical Exam Physical Exam SEE ABOVE Constitutional: Well developed, well nourished, no acute distress, non-toxic appearance. HENT: Normocephalic, atraumatic, bilateral external ears normal, oropharynx moist, no oral exudates, nose normal. Eyes: PERRLA, EOMI, conjunctiva normal, no discharge. [] Neck: Normal range of motion, no tenderness, supple, no stridor. Cardiovascular:Heart rate regular rhythm, no murmur [] Lungs & Thorax: Bilateral breath sounds clear to auscultation Abdomen: Bowel sounds normal, soft, no tenderness, no masses, no pulsatile masses. Skin: Warm, dry, no erythema, no rash. [] Back: No tenderness, mild right cva tenderness. no left cva tenderness. Extremities: No tenderness, no cyanosis, no clubbing, ROM intact, no edema. [] Neurologic: Alert and oriented X 3, normal motor function, normal sensory function, no focal deficits noted. Psychologic: Affect normal, judgement normal, mood normal. [] Current Patient Data Vital Signs Vital Signs Date Time Temp Pulse Resp B/P (MAP) Pulse Ox O2 Delivery O2 Flow Rate FiO2 11/16/18 07:05 96 96 11/16/18 06:25 99.8 17 163/69 (100) Room Air 99.8 Lab Values Laboratory Tests Test 11/16/18 06:31 11/16/18 07:00 Urine Collection Type Void Urine Color [place] Urine Clarity Turbid Urine pH 7.0 Urine Specific [place] 1.010 Urine Protein >=300 mg/dL (NEG-TRACE) Urine Glucose (UA) Negative mg/dL (NEG) Urine Ketones (Stick) Negative mg/dL (NEG) Urine Blood Large (NEG) Urine Nitrite Negative (NEG) Urine Bilirubin Negative (NEG) Urine Urobilinogen Dipstick 0.2 mg/dL (0.2 mg/dL) Urine Leukocyte Esterase Large (NEG) Urine RBC Fobs /HPF (0-2) Urine WBC Tntc /HPF (0-4) Urine Bacteria Many /HPF (0-FEW) White Blood Count 10.6 x10^3/uL (4.0-11.0) Red Blood Count 3.62 x10^6/uL (3.50-5.40) Hemoglobin 11.9 g/dL (12.0-15.5) L Hematocrit 36.1 % (36.0-47.0) Mean Corpuscular Volume 100 fL (79-100) Mean Corpuscular Hemoglobin 33 pg (25-35) Mean Corpuscular Hemoglobin Concent 33 g/dL (31-37) Red Cell Distribution Width 16.2 % (11.5-14.5) H Platelet Count 188 x10^3/uL (140-400) Neutrophils (%) (Auto) 82 % (31-73) H Lymphocytes (%) (Auto) 10 % (24-48) L Monocytes (%) (Auto) 7 % (0-9) Eosinophils (%) (Auto) 0 % (0-3) Basophils (%) (Auto) 1 % (0-3) Neutrophils # (Auto) 8.7 x10^3uL (1.8-7.7) H Lymphocytes # (Auto) 1.0 x10^3/uL (1.0-4.8) Monocytes # (Auto) 0.8 x10^3/uL (0.0-1.1) Eosinophils # (Auto) 0.0 x10^3/uL (0.0-0.7) Basophils # (Auto) 0.1 x10^3/uL (0.0-0.2) Sodium Level 138 mmol/L (136-145) Potassium Level 5.2 mmol/L (3.5-5.1) H Chloride Level 98 mmol/L (98-107) Carbon Dioxide Level 27 mmol/L (21-32) Anion Gap 13 (6-14) Blood Urea Nitrogen 50 mg/dL (7-20) H Creatinine 7.5 mg/dL (0.6-1.0) H Estimated GFR (Cockcroft-Gault) 5.3 Glucose Level 225 mg/dL (70-99) H Calcium Level 8.4 mg/dL (8.5-10.1) L Total Bilirubin 0.8 mg/dL (0.2-1.0) Direct Bilirubin 0.2 mg/dL (0.0-0.2) Aspartate Amino Transferase (AST) 45 U/L (15-37) H Alanine Aminotransferase (ALT) 52 U/L (14-59) Alkaline Phosphatase 198 U/L (46-116) H Troponin I Quantitative < 0.017 ng/mL (0.000-0.055) Total Protein 8.0 g/dL (6.4-8.2) Albumin 3.0 g/dL (3.4-5.0) L Lipase 94 U/L (73-393) Influenza Type A Antigen Negative (NEGATIVE) Influenza Type B Antigen Negative (NEGATIVE) Laboratory Tests 11/16/18 07:00 Laboratory Tests 11/16/18 07:00 EKG EKG [] Radiology/Procedures Radiology/Procedures [] Course & Med Decision Making Course & Med Decision Making Pertinent Labs and Imaging studies reviewed. (See chart for details) [] Dragon Disclaimer Dragon Disclaimer This electronic medical record was generated, in whole or in part, using a voice recognition dictation system. Departure Departure Impression: Primary Impression: Pyelonephritis Additional Impression: Chronic renal failure Disposition: ADMITTED INPATIENT Admitting Physician: Other (riffel) Condition: STABLE Referrals: LISA CALHOUN (PCP) Problem Qualifiers CAROLYN CAMPBELL MD Nov 16, 2018 06:45
[2018-11-16 07:15] LABS: BASO # 0.1 x10^3/uL (0.0-0.2); BASO % 1 % (0-3); EOS % 0 % (0-3); HEMATOCRIT 36.1 % (36.0-47.0); HEMOGLOBIN 11.9 g/dL (12.0-15.5); LYMPH % 10 % (24-48); MEAN CORPUSCULAR HEMOGLOBIN 33 pg (25-35); MEAN CORPUSCULAR HGB CONC 33 g/dL (31-37); MEAN CORPUSCULAR VOLUME 100 fL (79-100); MONO # 0.8 x10^3/uL (0.0-1.1); MONO % 7 % (0-9); NEUT # 8.7 x10^3uL (1.8-7.7); NEUT % 82 % (31-73); PLATELET COUNT 188 x10^3/uL (140-400); RED BLOOD COUNT 3.62 x10^6/uL (3.50-5.40); RED CELL DISTRIBUTION WIDTH 16.2 % (11.5-14.5); WHITE BLOOD COUNT 10.6 x10^3/uL (4.0-11.0)
[2018-11-16 07:16] LABS: BILIRUBIN,URINE NEGATIVE (NEG); CLARITY,URINE TURBID; NITRITE,URINE NEGATIVE (NEG); PROTEIN,URINE >=300 mg/dL (NEG-TRACE); UROBILINOGEN,URINE 0.2 mg/dL (0.2 mg/dL)
[2018-11-16 07:20] LABS: BACTERIA,URINE MANY /HPF (0-FEW); RBC,URINE FOBS /HPF (0-2); WBC,URINE TNTC /HPF (0-4)
[2018-11-16 07:21] LABS: COLOR,URINE PINK
[2018-11-16 07:23] LABS: CALCIUM 8.4 mg/dL (8.5-10.1); CREATININE 7.5 mg/dL (0.6-1.0); GFR 5.3; POTASSIUM 5.2 mmol/L (3.5-5.1)
[2018-11-16 07:29] LABS: DIRECT BILIRUBIN 0.2 mg/dL (0.0-0.2); TOTAL BILIRUBIN 0.8 mg/dL (0.2-1.0)
[2018-11-16 07:36] LABS: INFLUENZA A PATIENT NEGATIVE (NEGATIVE); INFLUENZA B PATIENT NEGATIVE (NEGATIVE)
[2018-11-16] MEDS ORDERED: cefTRIAXone IV Push 1 GM VIAL. IVP ONE (07:45)
[2018-11-16] MEDS ORDERED: MORPHINE SULFATE 2 MG/ML VIAL. IV PRN (07:45)
[2018-11-16] MEDS ORDERED: ONDANSETRON PF 4 MG/2 ML VIAL. IV PRN ×2 (07:45→11:45)
--- NOTE | 2018-11-16 08:00 | RAD ---
PQRS Compliance statement: One or more of the following individualized dose reduction techniques were utilized for this examination: 1. Automated exposure control. 2. Adjustment of the mA and/or kV according to patient size. 3. Use of iterative reconstruction technique. Indication:Right flank pain TECHNIQUE: CT abdomen and pelvis without IV contrast with multiplanar reformats. COMPARISON: 10/29/2017 FINDINGS: Limited evaluation of solid abdominal and pelvic organs due to lack of IV contrast. Heart is normal in size. No pericardial or pleural effusion. Clear lung bases. Noncontrast appearance of the liver, spleen, pancreas, adrenals within normal limits. 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 No radiopaque gallstones or pericholecystic fluid. No nephrolithiasis. Interval removal of bilateral nephroureteral stents. Stable mild bilateral hydronephrosis, right more than left. No obstructing ureteral stone is seen. No free pelvic fluid or ascites. No enlarged retroperitoneal or pelvic adenopathy. Mild diffuse atherosclerotic disease seen of the abdominal aorta. No bowel obstruction. Sigmoid diverticulosis. Stable thickening of the bilateral ureters is seen right more than left. Uterus is present. Urinary bladder demonstrates nodular wall thickening without radiopaque stone. No pneumoperitoneum. Stable compression deformity seen of the L2 vertebral body. No suspicious bony lesion. IMPRESSION: Limited evaluation of solid abdominal and pelvic organs due to lack of IV contrast. 1. No nephrolithiasis. Mild bilateral hydronephrosis, right more than left without obstructing calcified ureteral stone. 2. Bilateral thickening of the ureters may be secondary to chronic changes from previous stents or ureteritis. 3. Nodular wall thickening of the urinary bladder may be secondary to suboptimal distention or cystitis. Correlate with urinalysis. Electronically signed by: Jon Johnson DO (11/16/2018 7:57 AM) [facility]
--- NOTE | 2018-11-16 08:20 | EKG ---
[facility] [address] [place] [address] Test Date: 2018-11-16 Test Time: 07:17:14 Pat Name: BRYANT LOCKHART Department: Room: Gender: F Service Operator: : 1940 Requested By: CAROLYN CAMPBELL Order Number: [id number] Reading MD: Shine Zapata MD Measurements Intervals Oriental Rate: 96 P: -10 KS: 154 QRS: -18 QRSD: 90 T: 52 QT: 344 QTc: 441 Interpretive Statements SINUS RHYTHM LEFT ATRIAL ABNORMALITY LEFTWARD AXIS NON-SPECIFIC ST/T CHANGES Electronically Signed On 11-17-2018 17:06:22 CDT by Shine Zapata MD
--- NOTE | 2018-11-16 08:30 | PDOC1 ---
History and Physical Date of Admission Date of Admission DATE: 11/16/18 TIME: 08:29 Identification/Chief Complaint Chief Complaint Abdominal pain History of Present Illness History of Present Illness 78-year-old female w/ PMHx ESRD on HD (6 months), HTN, CAD s/p CABG, DM2, peripheral neuropathy, h/o colon ca, recurrent urinary tract infections as well as ESBL infection and ureter stents, status post removal who is presenting the emergency department today with right flank pain and generalized fatigue and malaise associated with myalgias with low-grade temperature. On arrival heart rate is mildly elevated at 104. Temperature mildly elevated at 99.8. Blood pressure is elevated at 163 systolic. Blood work and urinalysis along with CT ordered. Urinalysis shows large blood and large leuk esterase with many bacteria and white blood cells. Potassium is minimally elevated at 5.2. Otherwise glucose is elevated, 225. CT the abdomen pelvis shows "chronic thickening of the ureters and nodular thickening of the bladder". Patient has urinary tract infection on urinalysis and her clinical presentation is suggestive of pyelonephritis. White blood cell count is 10,000. Hemoglobin is 11,000. Influenza test is negative. Has history of ESBL. Past Medical History Cardiovascular: CAD, HTN, Hyperlipidemia GI: Other Heme/Onc: No pertinent hx Psych: No pertinent hx Rheumatologic: No pertinent hx Infectious disease: No pertinent hx Renal/: Chronic renal failure, UTI, Hematuria, Other Endocrine: Diabetes, Hyperparathyroidism Past Surgical History Past Surgical History: CABG, Cystoscopy, Other Family History Family History: Hypertension, Other Social History Smoke: No ALCOHOL: none Drugs: None Current Problem List Problem List Problems Medical Problems: (1) Chronic renal failure Status: Acute (2) Pyelonephritis Status: Acute Current Medications Current Medications Current Medications Ceftriaxone Sodium (Rocephin) 1 gm 1X ONCE IVP ; Start 11/16/18 at 07:45; Stop 11/16/18 at 07:46; Status DC Ondansetron HCl (Zofran) 4 mg PRN Q8HRS PRN IV NAUSEA/VOMITING; Start 11/16/18 at 07:45; Stop 11/17/18 at 07:44 Morphine Sulfate (Morphine Sulfate) 2 mg PRN Q2HR PRN IV PAIN; Start 11/16/18 at 07:45; Stop 11/17/18 at 07:44 Active Scripts Active Estrace (Estradiol) 42.5 Gm Cream.appl 1 Scotty VG 3X/WEEK 14 Days Reported Clopidogrel (Clopidogrel Bisulfate) 75 Mg Tablet 1 Tab PO DAILY Augmentin 500-125 Tablet (Amoxicillin/Potassium Clav) 1 Each Tablet 1 Tab PO BID Novolog (Insulin Aspart) 100 Unit/1 Ml Cartridge 6 Unit SQ TIDAC Lantus Solostar (Insulin Glargine,Hum.rec.anlog) 100 Unit/1 Ml Insuln.pen 6 Unit SQ QHS [regrenex] TOP DAILY PRN Calcium Acetate 667 Mg Tablet 2 Cap PO TIDAC Simvastatin 40 Mg Tablet 1 Tab PO QHS Last dose given: 08-20-14 9:00 p.m. Next dose due: tonight Aspir 81 (Aspirin) 81 Mg Tablet.dr 1 Tab PO DAILY08 Allergies Allergies: Coded Allergies: latex (Verified Allergy, Intermediate, Rash, 12/30/17) I S O L A T I O N *CONTACT* (Verified Allergy, Unknown, 10/18/18) ESBL urine 03/16/18 ROS General: YES: Chills, Fatigue, Malaise; No: Night Sweats, Appetite, Other PSYCHOLOGICAL ROS: No: Anxiety, Behavioral Disorder, Concentration difficultie , Decreased libido, Depression, Disorientation, Hallucinations, Hostility, Irritablity, Memory difficulties, Mood Swings, Obsessive thoughts, Physical abuse, Sexual abuse, Sleep disturbances, Suicidal ideation, Other Eyes: No Blurry vision, No Decreased vision, No Double vision, No Dry eyes, No Excessive tearing, No Eye Pain, No Itchy Eyes, No Loss of vision, No Photophobia , No Scotomata, No Uses contacts, No Uses glasses, No Other HEENT: No: Heacaches, Visual Changes, Hearing change, Nasal congestion, Nasal discharge, Oral lesions, Sinus pain, Sore Throat, Epistaxis, Sneezing, Snoring, Tinnitus, Vertigo, Vocal changes, Other ALLERGY AND IMMUNOLOGY: No: Hives, Insect Bite Sensitivity, Itchy/Watery Eyes, Nasal Congestion, Post Nasal Drip, Seasonal Allergies, Other Hematological and Lymphatic: No: Bleeding Problems, Blood Clots, Blood Transfusions, Brusing, Night Sweats, Pallor, Swollen Lymph Nodes, Other ENDOCRINE: No: Breast Changes, Galactorrhea, Hair Pattern Changes, Hot Flashes , Malaise/lethargy, Mood Swings, Palpitations, Polydipsia/polyuria, Skin Changes , Temperature Intolerance, Unexpected Weight Changes, Other Breast: No New/Changing Breast Lumps, No Nipple changes, No Nipple discharge, No Other Respiratory: No: Cough, Hemoptysis, Orthopnea, Pleuritic Pain, Shortness of breath, SOB with excertion, Sputum Changes, Stridor, Tachypnea, Wheezing, Other Cardiovascular: No Chest Pain, No Palpitations, No Orthopnea, No Paroxysmal Noc. Dyspnea, No Edema, No Lt Headedness, No Other Gastrointestinal: Yes Nausea, Yes Abdominal Pain; No Vomiting, No Diarrhea, No Constipation, No Melena, No Hematochezia, No Other Genitourinary: YES Dysuria, YES Frequency, YES Retention, YES Urgency, YES Pain , YES Flank Pain; No Incontinence, No Hematuria, No Discharge, No Other, No , No , No , No , No , No , No Musculoskeletal: No Gait Disturbance, No Joint Pain, No Joint Stiffness, No Joint Swelling, No Muscle Pain, No Muscular Weakness, No Pain In:, No Swelling In:, No Other Neurological: No Behavorial Changes, No Bowel/Bladder ControlChng, No Confusion , No Dizziness, No Gait Disturbance, No Headaches, No Impaired Coord/balance, No Memory Loss, No Numbness/Tingling, No Seizures, No Speech Problems, No Tremors, No Visual Changes, No Weakness, No Other Skin: No Dry Skin, No Eczema, No Hair Changes, No Lumps, No Mole Changes, No Mottling, No Nail Changes, No Pruritus, No Rash, No Skin Lesion Changes, No Other, No Acne Physical Exam General: Alert, Oriented X3, Cooperative, No acute distress HEENT: Atraumatic, PERRLA, EOMI, Mucous membr. moist/pink Lungs: Clear to auscultation, Normal air movement Heart: S1S2, RRR, no gallops, no murmurs Abdomen: Normal bowel sounds, Soft, No hepatosplenomegaly, No masses, Other ( RLQ tender) Extremities: No clubbing, No cyanosis, No edema, Normal pulses, No tenderness/ swelling Skin: No rashes, No breakdown, No significant lesion Neuro: Normal gait, Normal speech, Strength at 5/5 X4 ext, Normal tone, Sensation intact, Cranial nerves 3-12 NL, Reflexes 2+ Psych/Mental Status: Mental status NL, Mood NL Vitals Vitals Vital Signs Date Time Temp Pulse Resp B/P (MAP) Pulse Ox O2 Delivery O2 Flow Rate FiO2 11/16/18 07:05 96 96 11/16/18 06:25 99.8 17 163/69 (100) Room Air 99.8 Labs Labs Laboratory Tests Test 11/16/18 06:31 11/16/18 07:00 Urine Collection Type Void Urine Color [place] Urine Clarity Turbid Urine pH 7.0 Urine Specific [place] 1.010 Urine Protein >=300 mg/dL (NEG-TRACE) Urine Glucose (UA) Negative mg/dL (NEG) Urine Ketones (Stick) Negative mg/dL (NEG) Urine Blood Large (NEG) Urine Nitrite Negative (NEG) Urine Bilirubin Negative (NEG) Urine Urobilinogen Dipstick 0.2 mg/dL (0.2 mg/dL) Urine Leukocyte Esterase Large (NEG) Urine RBC Fobs /HPF (0-2) Urine WBC Tntc /HPF (0-4) Urine Bacteria Many /HPF (0-FEW) White Blood Count 10.6 x10^3/uL (4.0-11.0) Red Blood Count 3.62 x10^6/uL (3.50-5.40) Hemoglobin 11.9 g/dL (12.0-15.5) Hematocrit 36.1 % (36.0-47.0) Mean Corpuscular Volume 100 fL (79-100) Mean Corpuscular Hemoglobin 33 pg (25-35) Mean Corpuscular Hemoglobin Concent 33 g/dL (31-37) Red Cell Distribution Width 16.2 % (11.5-14.5) Platelet Count 188 x10^3/uL (140-400) Neutrophils (%) (Auto) 82 % (31-73) Lymphocytes (%) (Auto) 10 % (24-48) Monocytes (%) (Auto) 7 % (0-9) Eosinophils (%) (Auto) 0 % (0-3) Basophils (%) (Auto) 1 % (0-3) Neutrophils # (Auto) 8.7 x10^3uL (1.8-7.7) Lymphocytes # (Auto) 1.0 x10^3/uL (1.0-4.8) Monocytes # (Auto) 0.8 x10^3/uL (0.0-1.1) Eosinophils # (Auto) 0.0 x10^3/uL (0.0-0.7) Basophils # (Auto) 0.1 x10^3/uL (0.0-0.2) Sodium Level 138 mmol/L (136-145) Potassium Level 5.2 mmol/L (3.5-5.1) Chloride Level 98 mmol/L (98-107) Carbon Dioxide Level 27 mmol/L (21-32) Anion Gap 13 (6-14) Blood Urea Nitrogen 50 mg/dL (7-20) Creatinine 7.5 mg/dL (0.6-1.0) Estimated GFR (Cockcroft-Gault) 5.3 Glucose Level 225 mg/dL (70-99) Calcium Level 8.4 mg/dL (8.5-10.1) Total Bilirubin 0.8 mg/dL (0.2-1.0) Direct Bilirubin 0.2 mg/dL (0.0-0.2) Aspartate Amino Transf (AST/SGOT) 45 U/L (15-37) Alanine Aminotransferase (ALT/SGPT) 52 U/L (14-59) Alkaline Phosphatase 198 U/L (46-116) Troponin I Quantitative < 0.017 ng/mL (0.000-0.055) Total Protein 8.0 g/dL (6.4-8.2) Albumin 3.0 g/dL (3.4-5.0) Lipase 94 U/L (73-393) Influenza Type A Antigen Negative (NEGATIVE) Influenza Type B Antigen Negative (NEGATIVE) Laboratory Tests Test 11/16/18 06:31 11/16/18 07:00 Urine Collection Type Void Urine Color [place] Urine Clarity Turbid Urine pH 7.0 Urine Specific [place] 1.010 Urine Protein >=300 mg/dL (NEG-TRACE) Urine Glucose (UA) Negative mg/dL (NEG) Urine Ketones (Stick) Negative mg/dL (NEG) Urine Blood Large (NEG) Urine Nitrite Negative (NEG) Urine Bilirubin Negative (NEG) Urine Urobilinogen Dipstick 0.2 mg/dL (0.2 mg/dL) Urine Leukocyte Esterase Large (NEG) Urine RBC Fobs /HPF (0-2) Urine WBC Tntc /HPF (0-4) Urine Bacteria Many /HPF (0-FEW) White Blood Count 10.6 x10^3/uL (4.0-11.0) Red Blood Count 3.62 x10^6/uL (3.50-5.40) Hemoglobin 11.9 g/dL (12.0-15.5) Hematocrit 36.1 % (36.0-47.0) Mean Corpuscular Volume 100 fL (79-100) Mean Corpuscular Hemoglobin 33 pg (25-35) Mean Corpuscular Hemoglobin Concent 33 g/dL (31-37) Red Cell Distribution Width 16.2 % (11.5-14.5) Platelet Count 188 x10^3/uL (140-400) Neutrophils (%) (Auto) 82 % (31-73) Lymphocytes (%) (Auto) 10 % (24-48) Monocytes (%) (Auto) 7 % (0-9) Eosinophils (%) (Auto) 0 % (0-3) Basophils (%) (Auto) 1 % (0-3) Neutrophils # (Auto) 8.7 x10^3uL (1.8-7.7) Lymphocytes # (Auto) 1.0 x10^3/uL (1.0-4.8) Monocytes # (Auto) 0.8 x10^3/uL (0.0-1.1) Eosinophils # (Auto) 0.0 x10^3/uL (0.0-0.7) Basophils # (Auto) 0.1 x10^3/uL (0.0-0.2) Sodium Level 138 mmol/L (136-145) Potassium Level 5.2 mmol/L (3.5-5.1) Chloride Level 98 mmol/L (98-107) Carbon Dioxide Level 27 mmol/L (21-32) Anion Gap 13 (6-14) Blood Urea Nitrogen 50 mg/dL (7-20) Creatinine 7.5 mg/dL (0.6-1.0) Estimated GFR (Cockcroft-Gault) 5.3 Glucose Level 225 mg/dL (70-99) Calcium Level 8.4 mg/dL (8.5-10.1) Total Bilirubin 0.8 mg/dL (0.2-1.0) Direct Bilirubin 0.2 mg/dL (0.0-0.2) Aspartate Amino Transf (AST/SGOT) 45 U/L (15-37) Alanine Aminotransferase (ALT/SGPT) 52 U/L (14-59) Alkaline Phosphatase 198 U/L (46-116) Troponin I Quantitative < 0.017 ng/mL (0.000-0.055) Total Protein 8.0 g/dL (6.4-8.2) Albumin 3.0 g/dL (3.4-5.0) Lipase 94 U/L (73-393) Influenza Type A Antigen Negative (NEGATIVE) Influenza Type B Antigen Negative (NEGATIVE) Images Images CT abd/pelv - 1. No nephrolithiasis. Mild bilateral hydronephrosis, right more than left without obstructing calcified ureteral stone. 2. Bilateral thickening of the ureters may be secondary to chronic changes from previous stents or ureteritis. 3. Nodular wall thickening of the urinary bladder may be secondary to suboptimal distention or cystitis. Correlate with urinalysis. VTE Prophylaxis Ordered VTE Prophylaxis Devices: No VTE Pharmacological Prophylaxi: Yes Assessment/Plan Assessment/Plan A/P: Abdominal pain - with flank pain and CT with uretal inflammation as well as cystic inflammation this is likely pyelonephritis and cystitis. Only way to treat empirically for this with h/o ESBL (Klebsiella - sensitive to carbapenems ) she would need carbapenems. I will need to consult ID ESRD - on HD MWF for the past 6 months, tolerating reasonably well. Has residual urine output. Consult nephrology Right lateral foot wound - wound care to see HTN - will monitor, not on meds CAD s/p CABG - on plavix, no BB DM2 - lantus Peripheral neuropathy - monitor H/o colon ca - stable Recurrent urinary tract infections as well as ESBL infection and ureter stents - has history if bladder atony. FEN - Renal ADA diet PPX - Heparin FULL CODE Inpatient for recurrent UTIs and now with abdominal pain likely repeat ESBL UTI. ITA MOSQUEDA MD Nov 16, 2018 08:30
--- NOTE | 2018-11-16 09:20 | NUR ---
Patient received to room 578 per wheelchair and ambulated t bed with steady gait. Patient alert and oriented times four. Patient received [employer] information packet for unit orietation and routines. Patient verb. understanding orientation to room, up with assist, fall protocol and patient information code for release of information to family and friends. Fall contract witnessed. Side rails up times two, call light at hand. Dr. Keene notified of patient admission and to see patient. Patient verb. understanding POC.
[2018-11-16] MEDS ORDERED: ACETAMINOPHEN 325 MG TABLET. PO PRN (10:00)
[2018-11-16] MEDS: ASPIRIN ENTERIC COATED 81 MG TABLET.DR. PO SCH (10:12)
[2018-11-16] MEDS: CLOPIDOGREL BISULFATE 75 MG TABLET PO SCH (10:12)
[2018-11-16] MEDS ORDERED: HYDROcodone/APAP 5/325MG 1 TAB TABLET PO PRN (11:45)
[2018-11-16] MEDS ORDERED: IV NORMAL SALINE 1000ML BAG 1,000 ML IV PRN ×2 (11:58)
[2018-11-16] MEDS ORDERED: diphenhydrAMINE 50 MG/ML VIAL IV PRN ×2 (12:00)
[2018-11-16] MEDS ORDERED: DIALYSIS PATIENT. MC PRN (12:00)
[2018-11-16] MEDS: CALCIUM ACETATE 667 MG CAPSULE PO SCH ×2 (12:05→17:12)
[2018-11-16] MEDS: INSULIN LISPRO 300 UNITS/3 ML INSULN.PEN. SQ SCH ×2 (12:07→17:00)
--- NOTE | 2018-11-16 12:32 | NUR ---
Report to Juanjose ONOFREclerical associate, patient to dialysis per bed.
--- NOTE | 2018-11-16 13:05 | NUR ---
Wound Care note Pt is seen in clinic for a DFU on the right lateral foot. Wound is washed, measured, and pictured, then dressed as follows: rd, hydrafera blue, contact layer, and then covered with a foam dressing. Pt tolerated dressing change well. No other wounds are found in head to toe assessment. Hydrafera blue is left in pt's room. [place] recommendation paper is left in room.
[2018-11-16] MEDS ORDERED: MEROPENEM 500 MG in IV NORMAL SALINE 50ML 50 ML IV SCH (14:00)
[2018-11-16 15:00] VITALS: BP_SYST 151; BP_SYST 158; BP_DIAS 67; BP_DIAS 85
--- NOTE | 2018-11-16 15:37 | PDOC ---
Infectious Disease Note Vital Sign Vital Signs Vital Signs Date Time Temp Pulse Resp B/P (MAP) Pulse Ox O2 Delivery O2 Flow Rate FiO2 11/16/18 09:20 Room Air 11/16/18 08:00 97 18 93 11/16/18 06:25 99.8 163/69 (100) 99.8 Labs Lab Laboratory Tests Test 11/16/18 06:31 11/16/18 07:00 11/16/18 10:28 Urine Collection Type Void Urine Color [place] Urine Clarity Turbid Urine pH 7.0 Urine Specific [place] 1.010 Urine Protein >=300 mg/dL (NEG-TRACE) Urine Glucose (UA) Negative mg/dL (NEG) Urine Ketones (Stick) Negative mg/dL (NEG) Urine Blood Large (NEG) Urine Nitrite Negative (NEG) Urine Bilirubin Negative (NEG) Urine Urobilinogen Dipstick 0.2 mg/dL (0.2 mg/dL) Urine Leukocyte Esterase Large (NEG) Urine RBC Fobs /HPF (0-2) Urine WBC Tntc /HPF (0-4) Urine Bacteria Many /HPF (0-FEW) White Blood Count 10.6 x10^3/uL (4.0-11.0) Red Blood Count 3.62 x10^6/uL (3.50-5.40) Hemoglobin 11.9 g/dL (12.0-15.5) Hematocrit 36.1 % (36.0-47.0) Mean Corpuscular Volume 100 fL (79-100) Mean Corpuscular Hemoglobin 33 pg (25-35) Mean Corpuscular Hemoglobin Concent 33 g/dL (31-37) Red Cell Distribution Width 16.2 % (11.5-14.5) Platelet Count 188 x10^3/uL (140-400) Neutrophils (%) (Auto) 82 % (31-73) Lymphocytes (%) (Auto) 10 % (24-48) Monocytes (%) (Auto) 7 % (0-9) Eosinophils (%) (Auto) 0 % (0-3) Basophils (%) (Auto) 1 % (0-3) Neutrophils # (Auto) 8.7 x10^3uL (1.8-7.7) Lymphocytes # (Auto) 1.0 x10^3/uL (1.0-4.8) Monocytes # (Auto) 0.8 x10^3/uL (0.0-1.1) Eosinophils # (Auto) 0.0 x10^3/uL (0.0-0.7) Basophils # (Auto) 0.1 x10^3/uL (0.0-0.2) Sodium Level 138 mmol/L (136-145) Potassium Level 5.2 mmol/L (3.5-5.1) Chloride Level 98 mmol/L (98-107) Carbon Dioxide Level 27 mmol/L (21-32) Anion Gap 13 (6-14) Blood Urea Nitrogen 50 mg/dL (7-20) Creatinine 7.5 mg/dL (0.6-1.0) Estimated GFR (Cockcroft-Gault) 5.3 Glucose Level 225 mg/dL (70-99) Calcium Level 8.4 mg/dL (8.5-10.1) Total Bilirubin 0.8 mg/dL (0.2-1.0) Direct Bilirubin 0.2 mg/dL (0.0-0.2) Aspartate Amino Transf (AST/SGOT) 45 U/L (15-37) Alanine Aminotransferase (ALT/SGPT) 52 U/L (14-59) Alkaline Phosphatase 198 U/L (46-116) Troponin I Quantitative < 0.017 ng/mL (0.000-0.055) Total Protein 8.0 g/dL (6.4-8.2) Albumin 3.0 g/dL (3.4-5.0) Lipase 94 U/L (73-393) Influenza Type A Antigen Negative (NEGATIVE) Influenza Type B Antigen Negative (NEGATIVE) Glucose (Fingerstick) 173 mg/dL (70-99) Objective Assessment PT SEEN, CONSULT DICTATED Plan Plan of Care -- ANA CRISTINA العلي MD Nov 16, 2018 15:37
--- NOTE | 2018-11-16 17:17 | NUR ---
Patient return from dialysis per bed at 1635 dressing right AV fistula D&I, patient alert and oriented times four. Side rails up times two, call light at hand, IV antibiotic infusing per order. Patient verb. understanding POC. Patient blood sugar 126, patient taking pm meal poorly and refused meal dose insulin. See emar and labs.
[2018-11-16 19:00] VITALS: BP 106/60
[2018-11-16] MEDS: LACTOBACILLUS RHAMNOSUS GG 1 CAPSULE. PO SCH (20:43)
[2018-11-16] MEDS ORDERED: INSULIN GLARGINE 300 UNITS/3 ML INSULN.PEN. SQ SCH (21:00)
[2018-11-16] MEDS ORDERED: SIMVASTATIN 40 MG TABLET. PO SCH (21:00)
[2018-11-16] MEDS ORDERED: INSULIN LISPRO 300 UNITS/3 ML INSULN.PEN. SQ STA (21:18)
--- NOTE | 2018-11-16 21:58 | CONS ---
DATE OF CONSULTATION: 11/16/2018 REASON: Renal failure. HISTORY OF PRESENT ILLNESS: A 78-year-old female with history of end-stage renal disease secondary to diabetes, diabetic nephropathy and hypertensive nephrosclerosis. The patient presented to the hospital with low-grade fever, myalgias and right flank pain. She had urinary tract infection, probable pyelonephritis, being admitted for the same. She will need ongoing dialysis. The patient undergoes dialysis with Dr. Vipin Escalante of our practice on a Tuesday, , Tuesday schedule. PAST MEDICAL HISTORY: Diabetes mellitus, hypertension, end-stage renal disease, hemodialysis dependent, anemia of chronic kidney disease, secondary hyperparathyroidism, renal disease, hyperlipidemia, coronary artery disease. PAST SURGICAL HISTORY: Coronary artery bypass grafting, cystoscopy, vascular access placement. ALLERGIES: LATEX. MEDICATIONS: Reviewed per med list. FAMILY HISTORY: Noncontributory. SOCIAL HISTORY: The patient resides with assistance from family. REVIEW OF SYSTEMS: No headache, sinus problem, nasal drainage, epistaxis, change in vision or hearing. No difficulty swallowing. She has had fever, no chills. No cough or sputum production, or hemoptysis. She has had right flank pain. No mid abdominal pain. No nausea, vomiting, diarrhea, seizures or malignancies. PHYSICAL EXAMINATION: GENERAL: The patient awake, conversant. HEENT: Clear. NECK: No increased JVD. No thyromegaly, mass, or adenopathy. LUNGS: Clear. CARDIAC: Without S3 or rub. ABDOMEN: Soft, nontender, no bruits. EXTREMITIES: Without edema. NEUROLOGIC: Nonfocal, nonlocalized. PSYCHIATRIC: Good attention to detail, appropriate affect. LABORATORY DATA: White count 10.6, hemoglobin 9, hematocrit 36%. Sodium 138, potassium 5.2, chloride 98, CO2 of 27, GFR 5.3, albumin 3. Urinalysis, nitrite negative, leukocyte esterase is large, bacteria many. Wbc's too numerous to count. IMPRESSION: 1. End-stage renal disease secondary to diabetic nephropathy and hypertensive nephrosclerosis -- dialysis dependent, Tuesday, and Tuesday. 2. Anemia of chronic kidney disease, well controlled. 3. Right-sided pyelonephritis. RECOMMENDATIONS: 1. Ongoing dialysis. Dialysis today. 2. Hold Epogen due to level of hemoglobin. 3. Antibiotics for pyelonephritis. We will follow. HAWA COTTON MD DR: James JOB#: [id number] / [id number]
[2018-11-16 23:00] VITALS: BP 92/47
--- NOTE | 2018-11-17 01:52 | CONS ---
DATE OF CONSULTATION: 11/16/2018 REQUESTING PHYSICIAN: Dr. Keene. REASON FOR CONSULTATION: Extended-spectrum beta-lactamase urinary tract infection. HISTORY OF PRESENT ILLNESS: This is a 78-year-old female who came in because of weakness and no appetite. Evidently, she told ER she had right flank pain; to me, she did not say that. She did not have any urinary symptoms. She had some nausea. The patient had abnormal urinalysis and the patient is admitted and started on meropenem. The patient did have a 99.8 temperature. The patient denies any vomiting. Denies any chest pain, abdominal pain, urinary symptoms, flank pain. PAST MEDICAL HISTORY: Positive for diabetes mellitus, hypertension, hyperlipidemia, end-stage renal disease on hemodialysis, bladder distention in the past, urinary stent in the past, coronary artery bypass grafting in the past, stents have been removed, benign tumor from the colon has been removed. SOCIAL HISTORY: Negative for smoking, alcohol, illicit drug use. ALLERGIES: No known drug allergies. CURRENT MEDICATIONS: Reviewed. The patient is on meropenem. REVIEW OF SYSTEMS: As per HPI. All other systems reviewed and are negative. PHYSICAL EXAMINATION: GENERAL: Alert, oriented female, not in distress. VITAL SIGNS: T-max 99.8. Rest of the vitals are stable. HEENT: NAD. NECK: Supple, no JVP, no lymphadenopathy. LUNGS: Clear. HEART: S1, S2 regular. ABDOMEN: Benign. EXTREMITIES: No cyanosis. SKIN: Unremarkable. NEUROLOGIC: The patient is neurologically intact. LABORATORY DATA: White count is 10.6, hemoglobin 11.9, platelets are normal. BUN and creatinine is 15 and 7.5. Urinalysis showed too numerous to count WBC. CT of the abdomen and pelvis was unremarkable. IMPRESSION AND PLAN: The patient's symptoms of weakness and no appetite. I have educated her about his not urinary symptoms. Her urinalysis is going to be abnormal every time because she is a dialysis patient and does not mean anything, but she is not convinced. She always comes up and she reports that her UTI symptoms are ____. Hence antibiotic has been started. I would give a short course and discharge the patient soon. Thank you very much, Dr. Keene, for giving me the opportunity to participate in this patient's care. ANA CRISTINA العلي MD DR: MARYURI/anthony JOB#: [id number] / [id number]
[2018-11-17 03:00] VITALS: BP 90/50
[2018-11-17 05:35] LABS: BASO # 0.1 x10^3/uL (0.0-0.2); BASO % 1 % (0-3); EOS # 0.1 x10^3/uL (0.0-0.7); EOS % 2 % (0-3); HEMATOCRIT 33.7 % (36.0-47.0); HEMOGLOBIN 11.1 g/dL (12.0-15.5); LYMPH # 1.9 x10^3/uL (1.0-4.8); LYMPH % 24 % (24-48); MEAN CORPUSCULAR HEMOGLOBIN 33 pg (25-35); MEAN CORPUSCULAR HGB CONC 33 g/dL (31-37); MEAN CORPUSCULAR VOLUME 101 fL (79-100); MONO % 13 % (0-9); NEUT # 4.9 x10^3uL (1.8-7.7); NEUT % 61 % (31-73); PLATELET COUNT 160 x10^3/uL (140-400); RED BLOOD COUNT 3.34 x10^6/uL (3.50-5.40); RED CELL DISTRIBUTION WIDTH 16.1 % (11.5-14.5)
[2018-11-17 06:07] LABS: CALCIUM 8.6 mg/dL (8.5-10.1); CREATININE 5.5 mg/dL (0.6-1.0); GFR 7.5; POTASSIUM 4.5 mmol/L (3.5-5.1)
[2018-11-17 07:00] VITALS: BP 98/75
--- NOTE | 2018-11-17 08:10 | PDOC ---
PROGRESS NOTES Chief Complaint Chief Complaint A/P: Abdominal pain - with flank pain and CT with uretal inflammation as well as cystic inflammation this is likely pyelonephritis and cystitis. Only way to treat empirically for this with h/o ESBL (Klebsiella - sensitive to carbapenems ) she would need carbapenems. I will need to consult ID ESRD - on HD MWF for the past 6 months, tolerating reasonably well. Has residual urine output. Consult nephrology Right lateral foot wound - wound care to see HTN - will monitor, not on meds CAD s/p CABG - on plavix, no BB DM2 - lantus Peripheral neuropathy - monitor H/o colon ca - stable Recurrent urinary tract infections as well as ESBL infection and ureter stents - has history if bladder atony. FEN - Renal ADA diet PPX - Heparin FULL CODE Inpatient for recurrent UTIs and now with abdominal pain likely repeat ESBL UTI. History of Present Illness History of Present Illness 78-year-old female w/ PMHx ESRD on HD (6 months), HTN, CAD s/p CABG, DM2, peripheral neuropathy, h/o colon ca, recurrent urinary tract infections as well as ESBL infection and ureter stents, status post removal who is presenting the emergency department today with right flank pain and generalized fatigue and malaise associated with myalgias with low-grade temperature. On arrival heart rate is mildly elevated at 104. Temperature mildly elevated at 99.8. Blood pressure is elevated at 163 systolic. Blood work and urinalysis along with CT ordered. Urinalysis shows large blood and large leuk esterase with many bacteria and white blood cells. Potassium is minimally elevated at 5.2. Otherwise glucose is elevated, 225. CT the abdomen pelvis shows "chronic thickening of the ureters and nodular thickening of the bladder". She feels much better today, seen by ID who feels no further treatment is necessary at this point. Plan: Discharge home Vitals Vitals Vital Signs Date Time Temp Pulse Resp B/P (MAP) Pulse Ox O2 Delivery O2 Flow Rate FiO2 11/17/18 03:00 98.8 90 18 90/50 (63) 94 Room Air 98.8 Physical Exam General: Alert, Oriented X3, Cooperative, No acute distress Lungs: Clear Abdomen: Normal bowel sounds, Soft, No hepatosplenomegaly, No masses, Other ( RLQ tender) Extremities: No clubbing, No cyanosis, No edema, Normal pulses, No tenderness/ swelling Skin: No rashes, No breakdown, No significant lesion Labs LABS Laboratory Tests Test 11/16/18 10:28 11/16/18 16:52 11/16/18 20:43 11/16/18 23:11 Glucose (Fingerstick) 173 mg/dL (70-99) 126 mg/dL (70-99) 359 mg/dL (70-99) 194 mg/dL (70-99) Test 11/17/18 04:15 White Blood Count 8.0 x10^3/uL (4.0-11.0) Red Blood Count 3.34 x10^6/uL (3.50-5.40) Hemoglobin 11.1 g/dL (12.0-15.5) Hematocrit 33.7 % (36.0-47.0) Mean Corpuscular Volume 101 fL (79-100) Mean Corpuscular Hemoglobin 33 pg (25-35) Mean Corpuscular Hemoglobin Concent 33 g/dL (31-37) Red Cell Distribution Width 16.1 % (11.5-14.5) Platelet Count 160 x10^3/uL (140-400) Neutrophils (%) (Auto) 61 % (31-73) Lymphocytes (%) (Auto) 24 % (24-48) Monocytes (%) (Auto) 13 % (0-9) Eosinophils (%) (Auto) 2 % (0-3) Basophils (%) (Auto) 1 % (0-3) Neutrophils # (Auto) 4.9 x10^3uL (1.8-7.7) Lymphocytes # (Auto) 1.9 x10^3/uL (1.0-4.8) Monocytes # (Auto) 1.0 x10^3/uL (0.0-1.1) Eosinophils # (Auto) 0.1 x10^3/uL (0.0-0.7) Basophils # (Auto) 0.1 x10^3/uL (0.0-0.2) Sodium Level 137 mmol/L (136-145) Potassium Level 4.5 mmol/L (3.5-5.1) Chloride Level 98 mmol/L (98-107) Carbon Dioxide Level 28 mmol/L (21-32) Anion Gap 11 (6-14) Blood Urea Nitrogen 29 mg/dL (7-20) Creatinine 5.5 mg/dL (0.6-1.0) Estimated GFR (Cockcroft-Gault) 7.5 Glucose Level 145 mg/dL (70-99) Calcium Level 8.6 mg/dL (8.5-10.1) Assessment and Plan Assessmemt and Plan Problems Medical Problems: (1) Chronic renal failure Status: Acute (2) Pyelonephritis Status: Acute Comment Review of Relevant I have reviewed the following items anastasiya (where applicable) has been applied. Labs Laboratory Tests Test 11/16/18 06:31 11/16/18 07:00 11/16/18 10:28 11/16/18 16:52 Urine Collection Type Void Urine Color [place] Urine Clarity Turbid Urine pH 7.0 Urine Specific [place] 1.010 Urine Protein >=300 mg/dL (NEG-TRACE) Urine Glucose (UA) Negative mg/dL (NEG) Urine Ketones (Stick) Negative mg/dL (NEG) Urine Blood Large (NEG) Urine Nitrite Negative (NEG) Urine Bilirubin Negative (NEG) Urine Urobilinogen Dipstick 0.2 mg/dL (0.2 mg/dL) Urine Leukocyte Esterase Large (NEG) Urine RBC Fobs /HPF (0-2) Urine WBC Tntc /HPF (0-4) Urine Bacteria Many /HPF (0-FEW) White Blood Count 10.6 x10^3/uL (4.0-11.0) Red Blood Count 3.62 x10^6/uL (3.50-5.40) Hemoglobin 11.9 g/dL (12.0-15.5) Hematocrit 36.1 % (36.0-47.0) Mean Corpuscular Volume 100 fL (79-100) Mean Corpuscular Hemoglobin 33 pg (25-35) Mean Corpuscular Hemoglobin Concent 33 g/dL (31-37) Red Cell Distribution Width 16.2 % (11.5-14.5) Platelet Count 188 x10^3/uL (140-400) Neutrophils (%) (Auto) 82 % (31-73) Lymphocytes (%) (Auto) 10 % (24-48) Monocytes (%) (Auto) 7 % (0-9) Eosinophils (%) (Auto) 0 % (0-3) Basophils (%) (Auto) 1 % (0-3) Neutrophils # (Auto) 8.7 x10^3uL (1.8-7.7) Lymphocytes # (Auto) 1.0 x10^3/uL (1.0-4.8) Monocytes # (Auto) 0.8 x10^3/uL (0.0-1.1) Eosinophils # (Auto) 0.0 x10^3/uL (0.0-0.7) Basophils # (Auto) 0.1 x10^3/uL (0.0-0.2) Sodium Level 138 mmol/L (136-145) Potassium Level 5.2 mmol/L (3.5-5.1) Chloride Level 98 mmol/L (98-107) Carbon Dioxide Level 27 mmol/L (21-32) Anion Gap 13 (6-14) Blood Urea Nitrogen 50 mg/dL (7-20) Creatinine 7.5 mg/dL (0.6-1.0) Estimated GFR (Cockcroft-Gault) 5.3 Glucose Level 225 mg/dL (70-99) Calcium Level 8.4 mg/dL (8.5-10.1) Total Bilirubin 0.8 mg/dL (0.2-1.0) Direct Bilirubin 0.2 mg/dL (0.0-0.2) Aspartate Amino Transf (AST/SGOT) 45 U/L (15-37) Alanine Aminotransferase (ALT/SGPT) 52 U/L (14-59) Alkaline Phosphatase 198 U/L (46-116) Troponin I Quantitative < 0.017 ng/mL (0.000-0.055) Total Protein 8.0 g/dL (6.4-8.2) Albumin 3.0 g/dL (3.4-5.0) Lipase 94 U/L (73-393) Influenza Type A Antigen Negative (NEGATIVE) Influenza Type B Antigen Negative (NEGATIVE) Glucose (Fingerstick) 173 mg/dL (70-99) 126 mg/dL (70-99) Test 11/16/18 20:43 11/16/18 23:11 11/17/18 04:15 Glucose (Fingerstick) 359 mg/dL (70-99) 194 mg/dL (70-99) White Blood Count 8.0 x10^3/uL (4.0-11.0) Red Blood Count 3.34 x10^6/uL (3.50-5.40) Hemoglobin 11.1 g/dL (12.0-15.5) Hematocrit 33.7 % (36.0-47.0) Mean Corpuscular Volume 101 fL (79-100) Mean Corpuscular Hemoglobin 33 pg (25-35) Mean Corpuscular Hemoglobin Concent 33 g/dL (31-37) Red Cell Distribution Width 16.1 % (11.5-14.5) Platelet Count 160 x10^3/uL (140-400) Neutrophils (%) (Auto) 61 % (31-73) Lymphocytes (%) (Auto) 24 % (24-48) Monocytes (%) (Auto) 13 % (0-9) Eosinophils (%) (Auto) 2 % (0-3) Basophils (%) (Auto) 1 % (0-3) Neutrophils # (Auto) 4.9 x10^3uL (1.8-7.7) Lymphocytes # (Auto) 1.9 x10^3/uL (1.0-4.8) Monocytes # (Auto) 1.0 x10^3/uL (0.0-1.1) Eosinophils # (Auto) 0.1 x10^3/uL (0.0-0.7) Basophils # (Auto) 0.1 x10^3/uL (0.0-0.2) Sodium Level 137 mmol/L (136-145) Potassium Level 4.5 mmol/L (3.5-5.1) Chloride Level 98 mmol/L (98-107) Carbon Dioxide Level 28 mmol/L (21-32) Anion Gap 11 (6-14) Blood Urea Nitrogen 29 mg/dL (7-20) Creatinine 5.5 mg/dL (0.6-1.0) Estimated GFR (Cockcroft-Gault) 7.5 Glucose Level 145 mg/dL (70-99) Calcium Level 8.6 mg/dL (8.5-10.1) Laboratory Tests Test 11/16/18 10:28 11/16/18 16:52 11/16/18 20:43 11/16/18 23:11 Glucose (Fingerstick) 173 mg/dL (70-99) 126 mg/dL (70-99) 359 mg/dL (70-99) 194 mg/dL (70-99) Test 11/17/18 04:15 White Blood Count 8.0 x10^3/uL (4.0-11.0) Red Blood Count 3.34 x10^6/uL (3.50-5.40) Hemoglobin 11.1 g/dL (12.0-15.5) Hematocrit 33.7 % (36.0-47.0) Mean Corpuscular Volume 101 fL (79-100) Mean Corpuscular Hemoglobin 33 pg (25-35) Mean Corpuscular Hemoglobin Concent 33 g/dL (31-37) Red Cell Distribution Width 16.1 % (11.5-14.5) Platelet Count 160 x10^3/uL (140-400) Neutrophils (%) (Auto) 61 % (31-73) Lymphocytes (%) (Auto) 24 % (24-48) Monocytes (%) (Auto) 13 % (0-9) Eosinophils (%) (Auto) 2 % (0-3) Basophils (%) (Auto) 1 % (0-3) Neutrophils # (Auto) 4.9 x10^3uL (1.8-7.7) Lymphocytes # (Auto) 1.9 x10^3/uL (1.0-4.8) Monocytes # (Auto) 1.0 x10^3/uL (0.0-1.1) Eosinophils # (Auto) 0.1 x10^3/uL (0.0-0.7) Basophils # (Auto) 0.1 x10^3/uL (0.0-0.2) Sodium Level 137 mmol/L (136-145) Potassium Level 4.5 mmol/L (3.5-5.1) Chloride Level 98 mmol/L (98-107) Carbon Dioxide Level 28 mmol/L (21-32) Anion Gap 11 (6-14) Blood Urea Nitrogen 29 mg/dL (7-20) Creatinine 5.5 mg/dL (0.6-1.0) Estimated GFR (Cockcroft-Gault) 7.5 Glucose Level 145 mg/dL (70-99) Calcium Level 8.6 mg/dL (8.5-10.1) Medications Current Medications Ceftriaxone Sodium (Rocephin) 1 gm 1X ONCE IVP Last administered on 11/16/18 08:40; Start 11/16/18 at 07:45; Stop 11/16/18 at 07:46; Status DC Ondansetron HCl (Zofran) 4 mg PRN Q8HRS PRN IV NAUSEA/VOMITING Last administered on 11/16/18 08:40; Start 11/16/18 at 07:45; Stop 11/16/18 at 17:28 ; Status DC Morphine Sulfate (Morphine Sulfate) 2 mg PRN Q2HR PRN IV PAIN; Start 11/16/18 at 07:45; Stop 11/16/18 at 11:36; Status DC Aspirin (Ecotrin) 81 mg DAILY08 PO Last administered on 11/16/18 10:12; Start 11/16/18 at 10:00 Clopidogrel Bisulfate (Plavix) 75 mg DAILY PO Last administered on 11/16/18 10 :12; Start 11/16/18 at 10:00 Estradiol (Estrace) 1 scotty 3X/WEEK VG ; Start 11/17/18 at 09:00 Insulin Glargine (Lantus) 6 units QHS SQ Last administered on 11/16/18at 21:27; Start 11/16/18 at 21:00 Calcium Acetate (Phoslo) 1,334 mg TIDWMEALS PO Last administered on 11/16/18 17:12; Start 11/16/18 at 12:00 Insulin Human Lispro (HumaLOG) 6 units TIDWMEALS SQ Last administered on at 12:07; Start 11/16/18 at 12:00 Simvastatin (Zocor) 40 mg QHS PO Last administered on 11/16/18at 20:43; Start at 21:00 Acetaminophen (Tylenol) 650 mg PRN Q6HRS PRN PO MILD PAIN / TEMP Last administered on 11/16/18 10:12; Start 11/16/18 at 10:00 Acetaminophen/ Hydrocodone Bitart (Lortab 5/325) 1 tab PRN Q4HRS PRN PO PAIN; Start 11/16/18 at 11:45 Ondansetron HCl (Zofran) 4 mg PRN Q6HRS PRN IV NAUSEA/VOMITING; Start 11/16/18 at 11:45 Ceftriaxone Sodium (Rocephin) 1 gm Q24H IVP ; Start 11/17/18 at 09:00; Status Cancel Sodium Chloride 1,000 ml @ 1,000 mls/hr Q1H PRN IV hypotension; Start 11/16/18 at 11:58; Stop 11/16/18 at 17:57; Status DC Diphenhydramine HCl (Benadryl) 25 mg 1X PRN PRN IV ITCHING; Start 11/16/18 at 12:00; Stop 11/17/18 at 11:59 Diphenhydramine HCl (Benadryl) 25 mg 1X PRN PRN IV ITCHING; Start 11/16/18 at 12:00; Stop 11/17/18 at 11:59 Sodium Chloride 1,000 ml @ 400 mls/hr Q2H30M PRN IV PATENCY; Start 11/16/18 at 11:58; Stop 11/16/18 at 23:57; Status DC Info (PHARMACY MONITORING -- do not chart) 1 each PRN DAILY PRN MC SEE COMMENTS ; Start 11/16/18 at 12:00 Meropenem 500 mg/ Sodium Chloride 50 ml @ 100 mls/hr Q24H IV Last administered on 11/16/18at 16:36; Start 11/16/18 at 14:00 Lactobacillus Rhamnosus (Culturelle) 1 cap BID PO Last administered on at 20:43; Start 11/16/18 at 21:00 Insulin Human Lispro (HumaLOG) 8 units 1X STAT SQ Last administered on at 21:27; Start 11/16/18 at 21:18; Stop 11/16/18 at 21:22; Status DC Active Scripts Active Estrace (Estradiol) 42.5 Gm Cream.appl 1 Scotty VG 3X/WEEK 14 Days Reported Clopidogrel (Clopidogrel Bisulfate) 75 Mg Tablet 1 Tab PO DAILY Novolog (Insulin Aspart) 100 Unit/1 Ml Cartridge 6 Unit SQ TIDAC Lantus Solostar (Insulin Glargine,Hum.rec.anlog) 100 Unit/1 Ml Insuln.pen 6 Unit SQ QHS [regrenex] TOP DAILY PRN Calcium Acetate 667 Mg Tablet 2 Cap PO TIDAC Simvastatin 40 Mg Tablet 1 Tab PO QHS Last dose given: 08-20-14 9:00 p.m. Next dose due: tonight Aspir 81 (Aspirin) 81 Mg Tablet.dr 1 Tab PO DAILY08 Vitals/I & O Vital Sign - Last 24 Hours 11/16/18 11/16/18 11/16/18 11/16/18 09:20 15:00 15:00 19:00 Temp 99.0 99.0 98.8 99.0 99.0 98.8 Pulse 81 97 102 Resp 19 20 B/P (MAP) 158/85 (109) 151/67 (95) 106/60 (75) Pulse Ox 98 93 98 O2 Delivery Room Air Room Air Room Air Room Air 11/16/18 11/16/18 11/17/18 20:00 23:00 03:00 Temp 98.8 98.8 98.8 98.8 Pulse 89 90 Resp 18 18 B/P (MAP) 92/47 (62) 90/50 (63) Pulse Ox 93 94 O2 Delivery Room Air Room Air Room Air Intake and Output 11/16/18 11/16/18 11/17/18 14:59 22:59 06:59 Intake Total 180 ml 250 ml 300 ml Balance 180 ml 250 ml 300 ml ITA MOSQUEDA MD Nov 17, 2018 08:10
[2018-11-17] MEDS ORDERED: cefTRIAXone IV Push 1 GM VIAL. IVP SCH (09:00)
[2018-11-17] MEDS ORDERED: ESTRADIOL 0.01% VAGINAL CREAM 42.5GM TUBE. VG SCH (09:00)
[2018-11-17] MEDS: LACTOBACILLUS RHAMNOSUS GG 1 CAPSULE. PO SCH (09:18)
[2018-11-17] MEDS: CALCIUM ACETATE 667 MG CAPSULE PO SCH (09:18)
[2018-11-17] MEDS: CLOPIDOGREL BISULFATE 75 MG TABLET PO SCH (09:18)
[2018-11-17] MEDS: ASPIRIN ENTERIC COATED 81 MG TABLET.DR. PO SCH (09:18)
[2018-11-17] MEDS: INSULIN LISPRO 300 UNITS/3 ML INSULN.PEN. SQ SCH (09:20)
--- NOTE | 2018-11-17 10:02 | NUR ---
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 Pt to be in contact precautions until there are 2 negative cultures 7 days apart without antibiotics.
--- NOTE | 2018-11-17 10:15 | PDOC ---
Infectious Disease Note Subjective Subjective pt is feeling good, wants to go home ROS ROS no n/v/d/sob Vital Sign Vital Signs Vital Signs Date Time Temp Pulse Resp B/P (MAP) Pulse Ox O2 Delivery O2 Flow Rate FiO2 11/17/18 07:00 98.2 90 17 98/75 (83) 96 Room Air 98.2 Physical Exam PHYSICAL EXAM GENERAL: Alert, oriented female, not in distress. VITAL SIGNS: vitals are stable. HEENT: NAD. NECK: Supple, no JVP, no lymphadenopathy. LUNGS: Clear. HEART: S1, S2 regular. ABDOMEN: Benign. EXTREMITIES: No cyanosis. SKIN: Unremarkable. NEUROLOGIC: The patient is neurologically intact. Labs Lab Laboratory Tests Test 11/16/18 10:28 11/16/18 16:52 11/16/18 20:43 11/16/18 23:11 Glucose (Fingerstick) 173 mg/dL (70-99) 126 mg/dL (70-99) 359 mg/dL (70-99) 194 mg/dL (70-99) Test 11/17/18 04:15 White Blood Count 8.0 x10^3/uL (4.0-11.0) Red Blood Count 3.34 x10^6/uL (3.50-5.40) Hemoglobin 11.1 g/dL (12.0-15.5) Hematocrit 33.7 % (36.0-47.0) Mean Corpuscular Volume 101 fL (79-100) Mean Corpuscular Hemoglobin 33 pg (25-35) Mean Corpuscular Hemoglobin Concent 33 g/dL (31-37) Red Cell Distribution Width 16.1 % (11.5-14.5) Platelet Count 160 x10^3/uL (140-400) Neutrophils (%) (Auto) 61 % (31-73) Lymphocytes (%) (Auto) 24 % (24-48) Monocytes (%) (Auto) 13 % (0-9) Eosinophils (%) (Auto) 2 % (0-3) Basophils (%) (Auto) 1 % (0-3) Neutrophils # (Auto) 4.9 x10^3uL (1.8-7.7) Lymphocytes # (Auto) 1.9 x10^3/uL (1.0-4.8) Monocytes # (Auto) 1.0 x10^3/uL (0.0-1.1) Eosinophils # (Auto) 0.1 x10^3/uL (0.0-0.7) Basophils # (Auto) 0.1 x10^3/uL (0.0-0.2) Sodium Level 137 mmol/L (136-145) Potassium Level 4.5 mmol/L (3.5-5.1) Chloride Level 98 mmol/L (98-107) Carbon Dioxide Level 28 mmol/L (21-32) Anion Gap 11 (6-14) Blood Urea Nitrogen 29 mg/dL (7-20) Creatinine 5.5 mg/dL (0.6-1.0) Estimated GFR (Cockcroft-Gault) 7.5 Glucose Level 145 mg/dL (70-99) Calcium Level 8.6 mg/dL (8.5-10.1) Objective Assessment The patient's symptoms of weakness and no appetite. I have educated her about his not urinary symptoms. Her urinalysis is going to be abnormal every time because she is a dialysis patient and does not mean anything, but she is not convinced. She always comes up and she reports that her UTI symptoms are weakness. Hence antibiotic has been started. I would give a short course and discharge the patient soon. Plan Plan of Care ok to d/c antibiotics and d/c home d/w ANA CRISTINA Vivar MD Nov 17, 2018 10:15
[2018-11-17 11:00] VITALS: BP 113/62
--- NOTE | 2018-11-17 11:27 | NUR ---
SW following. Discussed with RN, pt is from home, has dialysis T, , . RN advised no SW needs and anticipates pt will discharge home today with self care.
--- NOTE | 2018-11-17 12:00 | PDOC3 ---
Discharge Summary Visit Information Date of Admission: Nov 16, 2018 Date of Discharge: Nov 17, 2018 Admitting Diagnosis: Chronic renal failure Final Diagnosis Problems Medical Problems: (1) Chronic renal failure Status: Acute (2) Pyelonephritis Status: Acute Brief Hospital Course Allergies Allergies Coded Allergies Type Severity Reaction Last Updated Verified latex Allergy Intermediate Rash 12/30/17 Yes I S O L A T I O N *CONTACT* Allergy Unknown 10/18/18 Yes Vital Signs Vital Signs Date Time Temp Pulse Resp B/P (MAP) Pulse Ox O2 Delivery O2 Flow Rate FiO2 11/17/18 07:00 98.2 90 17 98/75 (83) 96 Room Air 98.2 Lab Results Laboratory Tests Test 11/16/18 06:31 11/16/18 07:00 11/16/18 10:28 11/16/18 16:52 Urine Collection Type Void Urine Color [place] Urine Clarity Turbid Urine pH 7.0 Urine Specific [place] 1.010 Urine Protein >=300 mg/dL (NEG-TRACE) Urine Glucose (UA) Negative mg/dL (NEG) Urine Ketones (Stick) Negative mg/dL (NEG) Urine Blood Large (NEG) Urine Nitrite Negative (NEG) Urine Bilirubin Negative (NEG) Urine Urobilinogen Dipstick 0.2 mg/dL (0.2 mg/dL) Urine Leukocyte Esterase Large (NEG) Urine RBC Fobs /HPF (0-2) Urine WBC Tntc /HPF (0-4) Urine Bacteria Many /HPF (0-FEW) White Blood Count 10.6 x10^3/uL (4.0-11.0) Red Blood Count 3.62 x10^6/uL (3.50-5.40) Hemoglobin 11.9 g/dL (12.0-15.5) Hematocrit 36.1 % (36.0-47.0) Mean Corpuscular Volume 100 fL (79-100) Mean Corpuscular Hemoglobin 33 pg (25-35) Mean Corpuscular Hemoglobin Concent 33 g/dL (31-37) Red Cell Distribution Width 16.2 % (11.5-14.5) Platelet Count 188 x10^3/uL (140-400) Neutrophils (%) (Auto) 82 % (31-73) Lymphocytes (%) (Auto) 10 % (24-48) Monocytes (%) (Auto) 7 % (0-9) Eosinophils (%) (Auto) 0 % (0-3) Basophils (%) (Auto) 1 % (0-3) Neutrophils # (Auto) 8.7 x10^3uL (1.8-7.7) Lymphocytes # (Auto) 1.0 x10^3/uL (1.0-4.8) Monocytes # (Auto) 0.8 x10^3/uL (0.0-1.1) Eosinophils # (Auto) 0.0 x10^3/uL (0.0-0.7) Basophils # (Auto) 0.1 x10^3/uL (0.0-0.2) Sodium Level 138 mmol/L (136-145) Potassium Level 5.2 mmol/L (3.5-5.1) Chloride Level 98 mmol/L (98-107) Carbon Dioxide Level 27 mmol/L (21-32) Anion Gap 13 (6-14) Blood Urea Nitrogen 50 mg/dL (7-20) Creatinine 7.5 mg/dL (0.6-1.0) Estimated GFR (Cockcroft-Gault) 5.3 Glucose Level 225 mg/dL (70-99) Calcium Level 8.4 mg/dL (8.5-10.1) Total Bilirubin 0.8 mg/dL (0.2-1.0) Direct Bilirubin 0.2 mg/dL (0.0-0.2) Aspartate Amino Transf (AST/SGOT) 45 U/L (15-37) Alanine Aminotransferase (ALT/SGPT) 52 U/L (14-59) Alkaline Phosphatase 198 U/L (46-116) Troponin I Quantitative < 0.017 ng/mL (0.000-0.055) Total Protein 8.0 g/dL (6.4-8.2) Albumin 3.0 g/dL (3.4-5.0) Lipase 94 U/L (73-393) Influenza Type A Antigen Negative (NEGATIVE) Influenza Type B Antigen Negative (NEGATIVE) Glucose (Fingerstick) 173 mg/dL (70-99) 126 mg/dL (70-99) Test 11/16/18 20:43 11/16/18 23:11 11/17/18 04:15 Glucose (Fingerstick) 359 mg/dL (70-99) 194 mg/dL (70-99) White Blood Count 8.0 x10^3/uL (4.0-11.0) Red Blood Count 3.34 x10^6/uL (3.50-5.40) Hemoglobin 11.1 g/dL (12.0-15.5) Hematocrit 33.7 % (36.0-47.0) Mean Corpuscular Volume 101 fL (79-100) Mean Corpuscular Hemoglobin 33 pg (25-35) Mean Corpuscular Hemoglobin Concent 33 g/dL (31-37) Red Cell Distribution Width 16.1 % (11.5-14.5) Platelet Count 160 x10^3/uL (140-400) Neutrophils (%) (Auto) 61 % (31-73) Lymphocytes (%) (Auto) 24 % (24-48) Monocytes (%) (Auto) 13 % (0-9) Eosinophils (%) (Auto) 2 % (0-3) Basophils (%) (Auto) 1 % (0-3) Neutrophils # (Auto) 4.9 x10^3uL (1.8-7.7) Lymphocytes # (Auto) 1.9 x10^3/uL (1.0-4.8) Monocytes # (Auto) 1.0 x10^3/uL (0.0-1.1) Eosinophils # (Auto) 0.1 x10^3/uL (0.0-0.7) Basophils # (Auto) 0.1 x10^3/uL (0.0-0.2) Sodium Level 137 mmol/L (136-145) Potassium Level 4.5 mmol/L (3.5-5.1) Chloride Level 98 mmol/L (98-107) Carbon Dioxide Level 28 mmol/L (21-32) Anion Gap 11 (6-14) Blood Urea Nitrogen 29 mg/dL (7-20) Creatinine 5.5 mg/dL (0.6-1.0) Estimated GFR (Cockcroft-Gault) 7.5 Glucose Level 145 mg/dL (70-99) Calcium Level 8.6 mg/dL (8.5-10.1) Laboratory Tests Test 11/16/18 16:52 11/16/18 20:43 11/16/18 23:11 3/22/19 04:15 Glucose (Fingerstick) 126 mg/dL (70-99) 359 mg/dL (70-99) 194 mg/dL (70-99) White Blood Count 8.0 x10^3/uL (4.0-11.0) Red Blood Count 3.34 x10^6/uL (3.50-5.40) Hemoglobin 11.1 g/dL (12.0-15.5) Hematocrit 33.7 % (36.0-47.0) Mean Corpuscular Volume 101 fL (79-100) Mean Corpuscular Hemoglobin 33 pg (25-35) Mean Corpuscular Hemoglobin Concent 33 g/dL (31-37) Red Cell Distribution Width 16.1 % (11.5-14.5) Platelet Count 160 x10^3/uL (140-400) Neutrophils (%) (Auto) 61 % (31-73) Lymphocytes (%) (Auto) 24 % (24-48) Monocytes (%) (Auto) 13 % (0-9) Eosinophils (%) (Auto) 2 % (0-3) Basophils (%) (Auto) 1 % (0-3) Neutrophils # (Auto) 4.9 x10^3uL (1.8-7.7) Lymphocytes # (Auto) 1.9 x10^3/uL (1.0-4.8) Monocytes # (Auto) 1.0 x10^3/uL (0.0-1.1) Eosinophils # (Auto) 0.1 x10^3/uL (0.0-0.7) Basophils # (Auto) 0.1 x10^3/uL (0.0-0.2) Sodium Level 137 mmol/L (136-145) Potassium Level 4.5 mmol/L (3.5-5.1) Chloride Level 98 mmol/L (98-107) Carbon Dioxide Level 28 mmol/L (21-32) Anion Gap 11 (6-14) Blood Urea Nitrogen 29 mg/dL (7-20) Creatinine 5.5 mg/dL (0.6-1.0) Estimated GFR (Cockcroft-Gault) 7.5 Glucose Level 145 mg/dL (70-99) Calcium Level 8.6 mg/dL (8.5-10.1) Brief Hospital Course 78-year-old female w/ PMHx ESRD on HD (6 months), HTN, CAD s/p CABG, DM2, peripheral neuropathy, h/o colon ca, recurrent urinary tract infections as well as ESBL infection and ureter stents, status post removal who is presenting the emergency department today with right flank pain and generalized fatigue and malaise associated with myalgias with low-grade temperature. On arrival heart rate is mildly elevated at 104. Temperature mildly elevated at 99.8. Blood pressure is elevated at 163 systolic. Blood work and urinalysis along with CT ordered. Urinalysis shows large blood and large leuk esterase with many bacteria and white blood cells. Potassium is minimally elevated at 5.2. Otherwise glucose is elevated, 225. CT the abdomen pelvis shows "chronic thickening of the ureters and nodular thickening of the bladder". She feels much better today, seen by ID who feels no further treatment is necessary at this point. Greater than 30 minutes spent on discharge home Plan: Discharge home A/P: Abdominal pain - with flank pain and CT with uretal inflammation as well as cystic inflammation this is likely chronic cystitis. appreciate ID backing off treatment ESRD - on HD MWF for the past 6 months, tolerating reasonably well. Has residual urine output. Consult nephrology Right lateral foot wound - wound care to see HTN - will monitor, not on meds CAD s/p CABG - on plavix, no BB DM2 - lantus Peripheral neuropathy - monitor H/o colon ca - stable Recurrent urinary tract infections as well as ESBL infection and ureter stents - has history if bladder atony. Discharge Information Condition at Discharge: Improved Follow Up: Weeks Disposition/Orders: D/C to Home Scheduled Aspirin (Aspir 81) 81 Mg Tablet., 1 TAB PO DAILY08 for heart health, #30 Ref 5 (Reported) Entered as Reported by: ARTURO CARDENAS on 06/03/14 1540 Last Action: Continued on 11/16/18929 by ITA MOSQUEDA MD Calcium Acetate (Calcium Acetate) 667 Mg Tablet, 2 CAP PO TIDAC for phosphate binder, (Reported) Entered as Reported by: MARIYA PEARL on 07/03/18 1019 Last Action: Converted on 11/16/18929 by ITA MOSQUEDA MD Clopidogrel Bisulfate (Clopidogrel) 75 Mg Tablet, 1 TAB PO DAILY for for 6 weeks , #45 Ref 1 (Reported) Entered as Reported by: MARLEY BALDERAS on 10/18/18 1320 Last Action: Continued on 11/16/18929 by ITA MOSQUEDA MD Estradiol (Estrace) 42.5 Gm Cream.appl, 1 ODILIA VG 3X/WEEK for 14 Days, #14 Prescribed by: CHLOE SCHAFER on 03/21/18 1034 Last Action: Continued on 11/16/18929 by ITA MOSQUEDA MD Insulin Aspart (Novolog) 100 Unit/1 Ml Cartridge, 6 UNIT SQ TIDAC for DM, ( Reported) Entered as Reported by: SANJANA HOOPER on 07/19/181612 Last Action: Converted on 11/16/18929 by ITA MOSQUEDA MD Insulin Glargine,Hum.rec.anlog (Lantus Solostar) 100 Unit/1 Ml Insuln.pen, 6 UNIT SQ QHS for DM, #15 Ref 3 (Reported) Entered as Reported by: SANJANA HOOPER on 07/19/181612 Last Action: Continued on 11/16/18929 by ITA MOSQUEDA MD Simvastatin (Simvastatin) 40 Mg Tablet, 1 TAB PO QHS for high cholesterol, #30 Ref 5 (Reported) Last dose given: 08-20-14 9:00 p.m. Next dose due: tonight Entered as Reported by: ARTURO CARDENAS on 06/03/14 1542 Last Action: Converted on 11/16/18929 by ITA MOSQUEDA MD Scheduled PRN [regrenex] , TOP DAILY PRN for wound care, (Reported) Entered as Reported by: SANJANA HOOPER on 07/19/181612 ITA MOSQUEDA MD Nov 17, 2018 11:59
--- NOTE | 2018-11-17 12:58 | NUR ---
pt was in a hurry and would not let this keno writer/runner take pictures of wound. daughter waiting in car downstairs. pt discharged home w/ . meds, follow up reviewed. pt voiced understanding.
== END 2018-11-17 12:00 | disposition home or self-care (01) | DRG 690 ==
LOC: ER 06:21 → 5 SOUTH 07:40
PROVIDERS: ADMIT Internal Medicine; ATTEND Internal Medicine
DX: N12 Tubulo-interstitial nephritis, not specified as acute or chronic (principal); I12.0 Hypertensive chronic kidney disease with stage 5 chronic kidney disease or end stage renal disease; N18.6 End stage renal disease; E11.22 Type 2 diabetes mellitus with diabetic chronic kidney disease; E11.42 Type 2 diabetes mellitus with diabetic polyneuropathy; D63.1 Anemia in chronic kidney disease; E78.00 Pure hypercholesterolemia, unspecified; M19.90 Unspecified osteoarthritis, unspecified site; I25.10 Atherosclerotic heart disease of native coronary artery without angina pectoris; E78.5 Hyperlipidemia, unspecified; N25.81 Secondary hyperparathyroidism of renal origin; N30.20 Other chronic cystitis without hematuria; Z95.1 Presence of aortocoronary bypass graft; Z99.2 Dependence on renal dialysis; Z91.040 Latex allergy status; Z87.440 Personal history of urinary (tract) infections; Z86.19 Personal history of other infectious and parasitic diseases; Z82.49 Family history of ischemic heart disease and other diseases of the circulatory system; Z85.038 Personal history of other malignant neoplasm of large intestine
CPT/HCPCS: 36415; 74176; 80048; 80076; 81001; 82962; 83690; 84484; 85025; 87086; 87186; 87804; 93005; 96374; 96375; J0696; J1815; J2185; J2405; 99285-25

== ENCOUNTER → 2018-11-24 | Outpatient (CLI) | payer MEDICARE ==
[2018-11-17 11:00] VITALS: BP 113/62
[~2018-11-24] MED LIST changes: +AMOX1TAB11 PO; +VIT1TABL71 PO
== END | disposition home or self-care (01) ==
LOC: PMGWOUND 08:00
PROVIDERS: ATTEND Preventive Medicine Undersea and Hyperbaric Medicine
DX: E11.621 Type 2 diabetes mellitus with foot ulcer (principal); L97.523 Non-pressure chronic ulcer of other part of left foot with necrosis of muscle; E11.42 Type 2 diabetes mellitus with diabetic polyneuropathy; E11.36 Type 2 diabetes mellitus with diabetic cataract; I13.2 Hypertensive heart and chronic kidney disease with heart failure and with stage 5 chronic kidney disease, or end stage renal disease; E11.22 Type 2 diabetes mellitus with diabetic chronic kidney disease; N18.6 End stage renal disease; I50.9 Heart failure, unspecified; L84 Corns and callosities; E78.5 Hyperlipidemia, unspecified; E78.00 Pure hypercholesterolemia, unspecified; E21.1 Secondary hyperparathyroidism, not elsewhere classified; K21.9 Gastro-esophageal reflux disease without esophagitis; I25.10 Atherosclerotic heart disease of native coronary artery without angina pectoris; F41.9 Anxiety disorder, unspecified; E66.9 Obesity, unspecified; Z85.038 Personal history of other malignant neoplasm of large intestine; Z68.23 Body mass index [BMI] 23.0-23.9, adult; Z95.1 Presence of aortocoronary bypass graft; Z88.1 Allergy status to other antibiotic agents; Z99.2 Dependence on renal dialysis; Z79.4 Long term (current) use of insulin; Z79.84 Long term (current) use of oral hypoglycemic drugs; Z79.899 Other long term (current) drug therapy
CPT/HCPCS: 11042

== ENCOUNTER 2018-12-05 10:57 | Inpatient (IN) | payer MEDICARE ==
[~2018-12-05] VITALS: Ht 162.6 cm; Wt 64.6 kg
[~2018-12-05 10:57] MED LIST changes: -AMOX1TAB11 PO; -VIT1TABL71 PO
[2018-12-05] MEDS ORDERED: ONDANSETRON PF 4 MG/2 ML VIAL. IV ONE (11:30)
[2018-12-05 11:41] LABS: BILIRUBIN,URINE NEGATIVE (NEG); CLARITY,URINE TURBID; COLOR,URINE YELLOW; NITRITE,URINE NEGATIVE (NEG); PROTEIN,URINE 100 mg/dL (NEG-TRACE); UROBILINOGEN,URINE 0.2 mg/dL (0.2 mg/dL)
--- NOTE | 2018-12-05 11:43 | PHYS DOC ---
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 Patient states that she had dialysis around 6:20 this morning and then began to feel sweaty and vomited around 8:45 this morning. Patient reports three episodes of nonbloody vomiting today. Patient has been on dialysis for about seven months and denies ever having similar symptoms after dialysis in the past. Patient receives dialysis on Tuesday, and Tuesday. Dialysis was completed this morning. Patient states that she is feeling weak, however, notes this is chronic for her. Patient reports being chronically constipated and having a small bowel movement this morning. Daughter present at bedside states that the patient has a history of recurrent UTIs, last one a few weeks ago which was treated with IV antibiotics. Patient denies recent travel, abdominal pain, diarrhea, fever, and chills. Review of Systems Review of Systems Constitutional: Denies fever or chills Eyes: Denies change in visual acuity, or eye pain HENT: Denies nasal congestion or sore throat Respiratory: Denies cough or shortness of breath Cardiovascular: Denies chest pain or palpitations GI: Denies abdominal pain or diarrhea; reports vomiting and constipation : Denies dysuria or hematuria Musculoskeletal: Denies back pain or joint pain Integument: Denies rash or skin lesions Neurologic: Denies headache, focal weakness or sensory changes; reports generalized weakness Complete systems were reviewed and found to be within normal limits, except as documented in this note. Current Medications Current Medications Current Medications Medications (Trade) Dose Ordered Sig/Claudette Start Time Stop Time Status Last Admin Dose Admin Ceftriaxone Sodium (Rocephin) 1 gm 1X ONCE 12/05/18 12:30 12/05/18 12:31 DC 12/05/18 12:50 1 GM Ondansetron HCl (Zofran) 4 mg 1X ONCE 12/05/18 11:30 12/05/18 11:31 DC 12/05/18 12:01 4 MG Allergies Allergies Allergies Coded Allergies Type Severity Reaction Last Updated Verified latex Allergy Intermediate Rash 12/30/17 Yes Physical Exam Physical Exam Constitutional: Well developed, well nourished, no acute distress, non-toxic appearance. HENT: Normocephalic, atraumatic, oropharynx moist, nose normal. Eyes: PERRL, EOMI, conjunctiva normal, no discharge. Neck: Normal range of motion, supple, no stridor. Cardiovascular: Heart rate regular rhythm, no murmur Lungs & Thorax: Bilateral breath sounds clear to auscultation. No wheezing or rhonchi. Abdomen: Soft, minimal tenderness in left lower quadrant on palpation. No distension. No rebound, guarding, or rigidity. Skin: Warm, dry. Back: No tenderness, no CVA tenderness. Extremities: No tenderness, ROM intact, no edema. Neurologic: Alert and oriented X3, normal motor function, normal sensory function, no focal deficits noted. Psychologic: Affect normal. Speech normal. Current Patient Data Vital Signs Vital Signs Date Time Temp Pulse Resp B/P (MAP) Pulse Ox O2 Delivery O2 Flow Rate FiO2 12/05/18 12:30 86 129/60 (83) 97 Nasal Cannula 2.0 12/05/18 12:17 20 12/05/18 11:28 98.0 98.0 Lab Values Laboratory Tests Test 12/05/18 11:22 12/05/18 11:43 12/05/18 12:05 Urine Collection Type Unknown Urine Color Yellow Urine Clarity Turbid Urine pH 8.0 Urine Specific [place] 1.010 Urine Protein 100 mg/dL (NEG-TRACE) Urine Glucose (UA) Negative mg/dL (NEG) Urine Ketones (Stick) Negative mg/dL (NEG) Urine Blood Large (NEG) Urine Nitrite Negative (NEG) Urine Bilirubin Negative (NEG) Urine Urobilinogen Dipstick 0.2 mg/dL (0.2 mg/dL) Urine Leukocyte Esterase Large (NEG) Urine RBC Fobs /HPF (0-2) Urine WBC Tntc /HPF (0-4) Urine Transitional Epithelial Cells Few /LPF Urine Bacteria Moderate /HPF (0-FEW) White Blood Count 7.3 x10^3/uL (4.0-11.0) Red Blood Count 3.75 x10^6/uL (3.50-5.40) Hemoglobin 12.2 g/dL (12.0-15.5) Hematocrit 37.4 % (36.0-47.0) Mean Corpuscular Volume 100 fL (79-100) Mean Corpuscular Hemoglobin 33 pg (25-35) Mean Corpuscular Hemoglobin Concent 33 g/dL (31-37) Red Cell Distribution Width 16.1 % (11.5-14.5) H Platelet Count 194 x10^3/uL (140-400) Neutrophils (%) (Auto) 75 % (31-73) H Lymphocytes (%) (Auto) 16 % (24-48) L Monocytes (%) (Auto) 7 % (0-9) Eosinophils (%) (Auto) 2 % (0-3) Basophils (%) (Auto) 1 % (0-3) Neutrophils # (Auto) 5.4 x10^3uL (1.8-7.7) Lymphocytes # (Auto) 1.2 x10^3/uL (1.0-4.8) Monocytes # (Auto) 0.5 x10^3/uL (0.0-1.1) Eosinophils # (Auto) 0.1 x10^3/uL (0.0-0.7) Basophils # (Auto) 0.1 x10^3/uL (0.0-0.2) Sodium Level 138 mmol/L (136-145) Potassium Level 3.8 mmol/L (3.5-5.1) Chloride Level 96 mmol/L (98-107) L Carbon Dioxide Level 30 mmol/L (21-32) Anion Gap 12 (6-14) Blood Urea Nitrogen 20 mg/dL (7-20) Creatinine 3.8 mg/dL (0.6-1.0) H Estimated GFR (Cockcroft-Gault) 11.5 BUN/Creatinine Ratio 5 (6-20) L Glucose Level 168 mg/dL (70-99) H Calcium Level 8.0 mg/dL (8.5-10.1) L Magnesium Level 1.6 mg/dL (1.8-2.4) L Total Bilirubin 0.6 mg/dL (0.2-1.0) Aspartate Amino Transferase (AST) 17 U/L (15-37) Alanine Aminotransferase (ALT) 26 U/L (14-59) Alkaline Phosphatase 175 U/L (46-116) H Creatine Kinase 43 U/L (26-192) Creatine Kinase MB (Mass) 1.2 ng/mL (0.0-3.6) Creatine Kinase MB Relative Index % (0-4) Troponin I Quantitative < 0.017 ng/mL (0.000-0.055) Total Protein 8.2 g/dL (6.4-8.2) Albumin 3.4 g/dL (3.4-5.0) Albumin/Globulin Ratio 0.7 (1.0-1.7) L Lipase 236 U/L (73-393) Laboratory Tests 12/05/18 11:43 Laboratory Tests 12/05/18 12:05 Microbiology 12/05/18 Urine Culture - Final, Complete 12/05/18 Urine Culture Result 1 (SIL) - Final, Complete EKG EKG ECG performed at 11:46 reveals sinus rhythm at 93bpm without any acute ST abnormalities Radiology/Procedures Radiology/Procedures [] Impressions: PROCEDURE: CHEST PA & LATERAL Chest radiograph 12/05/2018 12:00 AM INDICATION: Weakness and vomiting, shortness of breath COMPARISON: March 16, 2018 TECHNIQUE: Frontal and lateral views of the chest are provided. FINDINGS: The cardiomediastinal silhouette is within normal limits. Atherosclerotic changes of the thoracic aorta are present. There are no pleural effusions. There is no pulmonary vascular congestion. There is no pneumothorax. Subsegmental atelectasis is noted at the left lung base. No significant osseous abnormality is identified. Healing fracture is noted involving the posterolateral left seventh rib. IMPRESSION: There is subsegmental atelectasis at the left lung base. Course & Med Decision Making Course & Med Decision Making Patient is a 78 year old female who presents to the ED for evaluation of vomiting. Patient treated with Zofran in the ED. Pertinent labs reviewed. UA reveals a urinary tract infection. Prior urine cultures from last month reviewed and noted to be sensitive to cephalosporins. Rocephin provided. During ED work up patient's oxygen saturation was noted to drop in the upper 80s. Patient placed on oxygen supplementation via nasal cannula. Patient requiring admission for further evaluation and treatment. Discussed with Dr. Godfrey (hospitalist) who is in agreement with admission. Discussed findings and plan with patient and family, who acknowledge understanding and agreement. Dragon Disclaimer Dragon Disclaimer This electronic medical record was generated, in whole or in part, using a voice recognition dictation system. Departure Departure Impression: Primary Impression: Generalized weakness Additional Impressions: UTI (urinary tract infection) ESRD (end stage renal disease) Disposition: 09 ADMITTED INPATIENT Admitting Physician: Lyn Godfrey Condition: STABLE Referrals: LISA CALHOUN (PCP) Problem Qualifiers Additional Impressions: UTI (urinary tract infection) Urinary tract infection type: site unspecified HAWA SILVA DO Dec 05, 2018 11:43
[2018-12-05 11:47] LABS: BACTERIA,URINE MODERATE /HPF (0-FEW); RBC,URINE FOBS /HPF (0-2); WBC,URINE TNTC /HPF (0-4)
[2018-12-05 11:51] LABS: BASO # 0.1 x10^3/uL (0.0-0.2); BASO % 1 % (0-3); EOS # 0.1 x10^3/uL (0.0-0.7); EOS % 2 % (0-3); HEMATOCRIT 37.4 % (36.0-47.0); HEMOGLOBIN 12.2 g/dL (12.0-15.5); LYMPH # 1.2 x10^3/uL (1.0-4.8); LYMPH % 16 % (24-48); MEAN CORPUSCULAR HEMOGLOBIN 33 pg (25-35); MEAN CORPUSCULAR HGB CONC 33 g/dL (31-37); MEAN CORPUSCULAR VOLUME 100 fL (79-100); MONO # 0.5 x10^3/uL (0.0-1.1); MONO % 7 % (0-9); NEUT # 5.4 x10^3uL (1.8-7.7); NEUT % 75 % (31-73); PLATELET COUNT 194 x10^3/uL (140-400); RED BLOOD COUNT 3.75 x10^6/uL (3.50-5.40); RED CELL DISTRIBUTION WIDTH 16.1 % (11.5-14.5); WHITE BLOOD COUNT 7.3 x10^3/uL (4.0-11.0)
--- NOTE | 2018-12-05 12:26 | RAD ---
Chest radiograph 12/05/2018 12:00 AM INDICATION: Weakness and vomiting, shortness of breath COMPARISON: March 16, 2018 TECHNIQUE: Frontal and lateral views of the chest are provided. FINDINGS: The cardiomediastinal silhouette is within normal limits. Atherosclerotic changes of the thoracic aorta are present. There are no pleural effusions. There is no pulmonary vascular congestion. There is no pneumothorax. Subsegmental atelectasis is noted at the left lung base. No significant osseous abnormality is identified. Healing fracture is noted involving the posterolateral left seventh rib. IMPRESSION: There is subsegmental atelectasis at the left lung base. Electronically signed by: Gloria Chaves MD (12/05/2018 12:23 PM) [id number]
[2018-12-05] MEDS ORDERED: cefTRIAXone IV Push 1 GM VIAL. IVP ONE (12:30)
[2018-12-05 12:40] LABS: CREATINE KINASE 43 U/L (26-192)
[2018-12-05 12:52] LABS: CREATININE 3.8 mg/dL (0.6-1.0); GFR 11.5; POTASSIUM 3.8 mmol/L (3.5-5.1)
[2018-12-05 12:56] LABS: ALBUMIN 3.4 g/dL (3.4-5.0); ALBUMIN/GLOBULIN RATIO 0.7 (1.0-1.7); MAGNESIUM 1.6 mg/dL (1.8-2.4); TOTAL BILIRUBIN 0.6 mg/dL (0.2-1.0); TOTAL PROTEIN 8.2 g/dL (6.4-8.2)
[2018-12-05] MEDS ORDERED: ONDANSETRON PF 4 MG/2 ML VIAL. IV PRN ×2 (13:00→13:15)
[2018-12-05] MEDS ORDERED: ACETAMINOPHEN 325 MG TABLET. PO PRN (13:00)
[2018-12-05] MEDS ORDERED: DEXTROSE 50% 25 GM / 50ML DISP.SYRIN. IV PRN ×2 (13:00→13:15)
[2018-12-05] MEDS ORDERED: HYDROcodone/APAP 5/325MG 1 TAB TABLET PO PRN (13:15)
[2018-12-05] MEDS ORDERED: PIP/TAZO PER PHARMACY MC PRN (13:15)
--- NOTE | 2018-12-05 13:44 | PDOC1 ---
History and Physical Date of Admission Date of Admission DATE: 12/05/18 TIME: 13:40 Identification/Chief Complaint Chief Complaint multiple complaints during HD Source Source: Caregiver, Chart review History of Present Illness History of Present Illness Known to us, 78-year-old female who lives at home with and uses no assistive device to ambulate, nonspecific complaints during dialysis. She claims her blood sugar was low but it was 136-she claims that is low for her She also claims she gets low blood pressure during dialysis. The rest of the labs and VS is okay except for dialysis numbers namely creatinine 3.8 with a GFR 11. She is incontinent of urine and a history of complicated UTI. Last urine culture 11/16/18 showed Escherichia coli sensitive to penicillin but resistant to some. She does wear depends - has seen DR Vang of urology. We are admitting for treating UTI some PTOT and see if the weakness resolves Otherwise I see her at the ER and she is otherwise feeling back to her baseline. FULL CODE Past Medical History Cardiovascular: CAD, HTN, Hyperlipidemia GI: Other Heme/Onc: No pertinent hx Psych: No pertinent hx Rheumatologic: No pertinent hx Infectious disease: No pertinent hx Renal/: Chronic renal failure, UTI, Hematuria, Other Endocrine: Diabetes, Hyperparathyroidism Past Surgical History Past Surgical History: CABG, Cystoscopy, Other Family History Family History: Hypertension, Other Social History Smoke: No ALCOHOL: none Drugs: None Current Problem List Problem List Problems Medical Problems: (1) Generalized weakness Status: Acute (2) UTI (urinary tract infection) Status: Acute Current Medications Current Medications Current Medications Ondansetron HCl (Zofran) 4 mg 1X ONCE IV Last administered on 12/05/18at 12:01; Start 12/05/18 at 11:30; Stop 12/05/18 at 11:31; Status DC Ceftriaxone Sodium (Rocephin) 1 gm 1X ONCE IVP Last administered on 12/05/18at 12:50; Start 12/05/18 at 12:30; Stop 12/05/18 at 12:31; Status DC Ondansetron HCl (Zofran) 4 mg PRN Q8HRS PRN IV NAUSEA/VOMITING; Start 12/05/18 at 13:00; Stop 12/05/18 at 13:09; Status DC Acetaminophen (Tylenol) 650 mg PRN Q4HRS PRN PO FEVER; Start 12/05/18 at 13:00; Stop 12/06/18 at 12:59 Insulin Human Lispro (HumaLOG) 0-5 UNITS TIDWMEALS SQ ; Start 12/05/18 at 17:00; Stop 12/05/18 at 17:00; Status DC Dextrose (Dextrose 50%-Water Syringe) 12.5 gm PRN Q15MIN PRN IV SEE COMMENTS; Start 12/05/18 at 13:00 Aspirin (Ecotrin) 81 mg DAILY08 PO ; Start 12/06/18 at 08:00; Status UNV Clopidogrel Bisulfate (Plavix) 75 mg DAILY PO ; Start 12/06/18 at 09:00; Status UNV Estradiol (Estrace) 1 scotty 3X/WEEK VG ; Start 12/06/18 at 09:00; Status UNV Insulin Glargine (Lantus) 6 units QHS SQ ; Start 12/05/18 at 21:00; Status UNV Non-Formulary Medication (Calcium Acetate ) 2 cap TIDAC PO ; Start 12/05/18 at 16 :30; Status UNV Non-Formulary Medication (Insulin Aspart (Novolog)) 6 unit TIDAC SQ ; Start 12/05 at 16:30; Status UNV Non-Formulary Medication (Simvastatin ) 1 tab QHS PO ; Start 12/05/18 at 21:00; Status UNV Ondansetron HCl (Zofran) 4 mg PRN Q6HRS PRN IV NAUSEA/VOMITING; Start 12/05/18 at 13:15 Piperacillin Sod/ Tazobactam Sod (Zosyn Per Pharmacy) 1 each PRN DAILY PRN MC SEE COMMENTS; Start 12/05/18 at 13:15; Status UNV Insulin Human Lispro (HumaLOG) 0-9 UNITS TIDWMEALS SQ ; Start 12/05/18 at 17:00; Status UNV Dextrose (Dextrose 50%-Water Syringe) 12.5 gm PRN Q15MIN PRN IV SEE COMMENTS; Start 12/05/18 at 13:15; Status UNV Acetaminophen/ Hydrocodone Bitart (Lortab 5/325) 1 tab PRN Q4HRS PRN PO PAIN; Start 12/05/18 at 13:15 Active Scripts Active Estrace (Estradiol) 42.5 Gm Cream.appl 1 Scotty VG 3X/WEEK 14 Days Reported Clopidogrel (Clopidogrel Bisulfate) 75 Mg Tablet 1 Tab PO DAILY Novolog (Insulin Aspart) 100 Unit/1 Ml Cartridge 6 Unit SQ TIDAC Lantus Solostar (Insulin Glargine,Hum.rec.anlog) 100 Unit/1 Ml Insuln.pen 6 Unit SQ QHS [regrenex] TOP DAILY PRN Calcium Acetate 667 Mg Tablet 2 Cap PO TIDAC Simvastatin 40 Mg Tablet 1 Tab PO QHS Last dose given: 08-20-14 9:00 p.m. Next dose due: tonight Aspir 81 (Aspirin) 81 Mg Tablet. 1 Tab PO DAILY08 Allergies Allergies: Coded Allergies: latex (Verified Allergy, Intermediate, Rash, 12/30/17) I S O L A T I O N *CONTACT* (Verified Allergy, Unknown, 10/18/18) ESBL urine 03/16/18 ROS Review of System A 14 point ROS was completed with the following noted as positive: Other systems reviewed and negative. \CONSTITUTIONAL: No fever or chills EYES: No recent changes SKIN: No rash or itching CARDIOVASCULAR: No chest pain, syncope, palpitations, or edema RESPIRATORY: No SOB or cough GASTROINTESTINAL: No nausea, vomiting or abdominal pain NEUROLOGICAL: No headaches or weakness ENDOCRINE: No cold or heat intolerance GENITOURINARY: No urgency or frequency of urination MUSCULOSKELETAL: No back pain or joint pain LYMPHATICS: No enlarged lymph nodes PSYCHIATRIC: No anxiety or depression Physical Exam General: Alert, Oriented X3, Cooperative, No acute distress HEENT: Atraumatic, PERRLA, EOMI Lungs: Clear to auscultation, Normal air movement Heart: S1S2, RRR, no thrills, no rubs, no gallops, no murmurs Cardiovascular: S1, S2 Breasts: Normal, Rt breast nml w/o mass, Lt breast nml w/o mass, Nipples normal Abdomen: Normal bowel sounds, Soft, No tenderness, No hepatosplenomegaly, No masses Rectal Exam: not examined PELVIC: Nml ext genitalia Extremities: No clubbing, No cyanosis, No edema, Normal pulses, No tenderness/ swelling Skin: No rashes, No breakdown, No significant lesion Neuro: Normal gait, Normal speech, Strength at 5/5 X4 ext, Normal tone, Sensation intact, Cranial nerves 3-12 NL, Reflexes 2+ Psych/Mental Status: Mental status NL, Mood NL Vitals Vitals Vital Signs Date Time Temp Pulse Resp B/P (MAP) Pulse Ox O2 Delivery O2 Flow Rate FiO2 12/05/18 12:17 91 20 135/62 (86) 90 Room Air 12/05/18 11:28 98.0 98.0 Labs Labs Laboratory Tests Test 12/05/18 11:22 12/05/18 11:43 12/05/18 12:05 Urine Collection Type Unknown Urine Color Yellow Urine Clarity Turbid Urine pH 8.0 Urine Specific [place] 1.010 Urine Protein 100 mg/dL (NEG-TRACE) Urine Glucose (UA) Negative mg/dL (NEG) Urine Ketones (Stick) Negative mg/dL (NEG) Urine Blood Large (NEG) Urine Nitrite Negative (NEG) Urine Bilirubin Negative (NEG) Urine Urobilinogen Dipstick 0.2 mg/dL (0.2 mg/dL) Urine Leukocyte Esterase Large (NEG) Urine RBC Fobs /HPF (0-2) Urine WBC Tntc /HPF (0-4) Urine Transitional Epithelial Cells Few /LPF Urine Bacteria Moderate /HPF (0-FEW) White Blood Count 7.3 x10^3/uL (4.0-11.0) Red Blood Count 3.75 x10^6/uL (3.50-5.40) Hemoglobin 12.2 g/dL (12.0-15.5) Hematocrit 37.4 % (36.0-47.0) Mean Corpuscular Volume 100 fL (79-100) Mean Corpuscular Hemoglobin 33 pg (25-35) Mean Corpuscular Hemoglobin Concent 33 g/dL (31-37) Red Cell Distribution Width 16.1 % (11.5-14.5) Platelet Count 194 x10^3/uL (140-400) Neutrophils (%) (Auto) 75 % (31-73) Lymphocytes (%) (Auto) 16 % (24-48) Monocytes (%) (Auto) 7 % (0-9) Eosinophils (%) (Auto) 2 % (0-3) Basophils (%) (Auto) 1 % (0-3) Neutrophils # (Auto) 5.4 x10^3uL (1.8-7.7) Lymphocytes # (Auto) 1.2 x10^3/uL (1.0-4.8) Monocytes # (Auto) 0.5 x10^3/uL (0.0-1.1) Eosinophils # (Auto) 0.1 x10^3/uL (0.0-0.7) Basophils # (Auto) 0.1 x10^3/uL (0.0-0.2) Sodium Level 138 mmol/L (136-145) Potassium Level 3.8 mmol/L (3.5-5.1) Chloride Level 96 mmol/L (98-107) Carbon Dioxide Level 30 mmol/L (21-32) Anion Gap 12 (6-14) Blood Urea Nitrogen 20 mg/dL (7-20) Creatinine 3.8 mg/dL (0.6-1.0) Estimated GFR (Cockcroft-Gault) 11.5 BUN/Creatinine Ratio 5 (6-20) Glucose Level 168 mg/dL (70-99) Calcium Level 8.0 mg/dL (8.5-10.1) Magnesium Level 1.6 mg/dL (1.8-2.4) Total Bilirubin 0.6 mg/dL (0.2-1.0) Aspartate Amino Transf (AST/SGOT) 17 U/L (15-37) Alanine Aminotransferase (ALT/SGPT) 26 U/L (14-59) Alkaline Phosphatase 175 U/L (46-116) Creatine Kinase 43 U/L (26-192) Creatine Kinase MB (Mass) 1.2 ng/mL (0.0-3.6) Creatine Kinase MB Relative Index % (0-4) Troponin I Quantitative < 0.017 ng/mL (0.000-0.055) Total Protein 8.2 g/dL (6.4-8.2) Albumin 3.4 g/dL (3.4-5.0) Albumin/Globulin Ratio 0.7 (1.0-1.7) Lipase 236 U/L (73-393) Laboratory Tests Test 12/05/18 11:22 12/05/18 11:43 12/05/18 12:05 Urine Collection Type Unknown Urine Color Yellow Urine Clarity Turbid Urine pH 8.0 Urine Specific [place] 1.010 Urine Protein 100 mg/dL (NEG-TRACE) Urine Glucose (UA) Negative mg/dL (NEG) Urine Ketones (Stick) Negative mg/dL (NEG) Urine Blood Large (NEG) Urine Nitrite Negative (NEG) Urine Bilirubin Negative (NEG) Urine Urobilinogen Dipstick 0.2 mg/dL (0.2 mg/dL) Urine Leukocyte Esterase Large (NEG) Urine RBC Fobs /HPF (0-2) Urine WBC Tntc /HPF (0-4) Urine Transitional Epithelial Cells Few /LPF Urine Bacteria Moderate /HPF (0-FEW) White Blood Count 7.3 x10^3/uL (4.0-11.0) Red Blood Count 3.75 x10^6/uL (3.50-5.40) Hemoglobin 12.2 g/dL (12.0-15.5) Hematocrit 37.4 % (36.0-47.0) Mean Corpuscular Volume 100 fL (79-100) Mean Corpuscular Hemoglobin 33 pg (25-35) Mean Corpuscular Hemoglobin Concent 33 g/dL (31-37) Red Cell Distribution Width 16.1 % (11.5-14.5) Platelet Count 194 x10^3/uL (140-400) Neutrophils (%) (Auto) 75 % (31-73) Lymphocytes (%) (Auto) 16 % (24-48) Monocytes (%) (Auto) 7 % (0-9) Eosinophils (%) (Auto) 2 % (0-3) Basophils (%) (Auto) 1 % (0-3) Neutrophils # (Auto) 5.4 x10^3uL (1.8-7.7) Lymphocytes # (Auto) 1.2 x10^3/uL (1.0-4.8) Monocytes # (Auto) 0.5 x10^3/uL (0.0-1.1) Eosinophils # (Auto) 0.1 x10^3/uL (0.0-0.7) Basophils # (Auto) 0.1 x10^3/uL (0.0-0.2) Sodium Level 138 mmol/L (136-145) Potassium Level 3.8 mmol/L (3.5-5.1) Chloride Level 96 mmol/L (98-107) Carbon Dioxide Level 30 mmol/L (21-32) Anion Gap 12 (6-14) Blood Urea Nitrogen 20 mg/dL (7-20) Creatinine 3.8 mg/dL (0.6-1.0) Estimated GFR (Cockcroft-Gault) 11.5 BUN/Creatinine Ratio 5 (6-20) Glucose Level 168 mg/dL (70-99) Calcium Level 8.0 mg/dL (8.5-10.1) Magnesium Level 1.6 mg/dL (1.8-2.4) Total Bilirubin 0.6 mg/dL (0.2-1.0) Aspartate Amino Transf (AST/SGOT) 17 U/L (15-37) Alanine Aminotransferase (ALT/SGPT) 26 U/L (14-59) Alkaline Phosphatase 175 U/L (46-116) Creatine Kinase 43 U/L (26-192) Creatine Kinase MB (Mass) 1.2 ng/mL (0.0-3.6) Creatine Kinase MB Relative Index % (0-4) Troponin I Quantitative < 0.017 ng/mL (0.000-0.055) Total Protein 8.2 g/dL (6.4-8.2) Albumin 3.4 g/dL (3.4-5.0) Albumin/Globulin Ratio 0.7 (1.0-1.7) Lipase 236 U/L (73-393) VTE Prophylaxis Ordered VTE Prophylaxis Devices: Yes VTE Pharmacological Prophylaxi: Yes Assessment/Plan Assessment/Plan complicated UTI-last urine culture 11/16/18 Escherichia coli UTI sensitive to penicillin resistant to some ESRD on dialysis TTH S-she did finish dialysis today Anemia of ESRD History of CABG CAD chronic stable/N STEMI Hypothyroidism on Synthroid DM 2 On low-dose insulin-@scale insulin urnary incontinence Plan: OBS STATUS Await urine culture Zosyn per pharmacy PT OT Dialysis per renal Home meds I have reconciled Awaiting urine cx, once out can send back home Seen at ER, full code Can ff up Urology as OP again Dr Vang re incontinence CHLOE SCHAFER MD Dec 05, 2018 13:44
--- NOTE | 2018-12-05 14:17 | EKG ---
[facility] [address] [place] [address] Test Date: 2018-12-05 Test Time: 11:42:56 Pat Name: BRYANT LOCKHART Department: Room: Gender: F [employer] Operator: : [id number] Requested By: HAWA SILVA Order Number: [id number] Reading MD: Shine Zapata MD Measurements Intervals [place] Rate: 93 P: -35 WV: 142 QRS: -17 QRSD: 90 T: 84 QT: 388 QTc: 485 Interpretive Statements SR PAC'S Electronically Signed On 12-07-2018 11:53:43 CDT by Shine Zapata MD
[2018-12-05 15:52] VITALS: BP 127/48
[2018-12-05] MEDS ORDERED: INSULIN LISPRO 300 UNITS/3 ML INSULN.PEN. SQ SCH (17:00)
[2018-12-05] MEDS: ASPIRIN ENTERIC COATED 81 MG TABLET.DR. PO SCH (18:30)
[2018-12-05] MEDS: CALCIUM ACETATE 667 MG CAPSULE PO SCH (18:30)
[2018-12-05] MEDS: CLOPIDOGREL BISULFATE 75 MG TABLET PO SCH (18:30)
[2018-12-05] MEDS: PIPERACILLIN/TAZOBACTAM 2.25 GM in IV NORMAL SALINE 50ML 50 ML IV SCH (18:34)
[2018-12-05] MEDS: INSULIN LISPRO 300 UNITS/3 ML INSULN.PEN. SQ SCH ×2 (18:59→19:00)
[2018-12-05 19:25] VITALS: BP 104/47
[2018-12-05] MEDS: SIMVASTATIN 40 MG TABLET. PO SCH (21:19)
[2018-12-05] MEDS: INSULIN GLARGINE 300 UNITS/3 ML INSULN.PEN. SQ SCH (21:22)
[2018-12-05 23:04] VITALS: BP 110/53
--- NOTE | 2018-12-05 23:45 | NUR ---
Reported off to JEMIMA Knott. Rounded on patient, no complaints or concerns at time of hand off.
[2018-12-06] MEDS: PIPERACILLIN/TAZOBACTAM 2.25 GM in IV NORMAL SALINE 50ML 50 ML IV SCH ×3 (00:28→13:57)
[2018-12-06 03:40] VITALS: BP 102/49
[2018-12-06 07:00] VITALS: BP 109/76
[2018-12-06] MEDS: INSULIN LISPRO 300 UNITS/3 ML INSULN.PEN. SQ SCH ×6 (08:00→17:29)
--- NOTE | 2018-12-06 08:33 | NUR ---
SW following pt for anticipated dc needs. Chart reviewed. Pt lives at home with spouse and has HD on T, Th and Sat. PT/OT pending. SW will await for PT/OT order to eval skilled needs.
[2018-12-06] MEDS ORDERED: ESTRADIOL 0.01% VAGINAL CREAM 42.5GM TUBE. VG SCH (09:00)
--- NOTE | 2018-12-06 09:19 | NUR ---
IP: Pt had a hx of ESBL in urine in 2018. However, pt has had multiple negatives. Pt may be removed from contact precautions. Flag removed.
[2018-12-06] MEDS: ASPIRIN ENTERIC COATED 81 MG TABLET.DR. PO SCH (09:42)
[2018-12-06] MEDS: CLOPIDOGREL BISULFATE 75 MG TABLET PO SCH (09:42)
[2018-12-06] MEDS: CALCIUM ACETATE 667 MG CAPSULE PO SCH ×3 (09:42→17:24)
--- NOTE | 2018-12-06 10:05 | NUR ---
Pt has not wanted the dressing removed on left foot since admission. She is currently a pt at the wound care center. She notified them of her admission and a consult was placed.
--- NOTE | 2018-12-06 10:37 | PDOC ---
PROGRESS NOTES History of Present Illness History of Present Illness Assessment/Plan complicated UTI-last urine culture 11/16/18 Escherichia coli UTI sensitive to penicillin resistant to some ESRD on dialysis TTH S- Anemia of ESRD History of CABG CAD chronic stable/N STEMI Hypothyroidism on Synthroid replacement DM 2 low-dose insulin-sliding scale insulin urinary incontinence Plan: OBS STATUS Await urine culture Zosyn per pharmacy PT OT Dialysis per renal Home meds I have reconciled Awaiting urine CULTURE full code Urology as OP again Dr Vang re incontinence Vitals Vitals Vital Signs Date Time Temp Pulse Resp B/P (MAP) Pulse Ox O2 Delivery O2 Flow Rate FiO2 12/06/18 07:00 97.9 79 18 109/76 (87) 99 Room Air 97.9 12/05/18 15:30 2.0 Physical Exam General: Alert, Oriented X3, Cooperative, No acute distress Lungs: Clear Abdomen: Normal bowel sounds, Soft, No tenderness, No hepatosplenomegaly, No masses Extremities: No clubbing, No cyanosis, No edema, Normal pulses, No tenderness/ swelling Skin: No rashes, No breakdown, No significant lesion Labs LABS Laboratory Tests Test 12/05/18 11:22 12/05/18 11:43 12/05/18 12:05 12/05/18 14:06 Urine Collection Type Unknown Urine Color Yellow Urine Clarity Turbid Urine pH 8.0 Urine Specific [place] 1.010 Urine Protein 100 mg/dL (NEG-TRACE) Urine Glucose (UA) Negative mg/dL (NEG) Urine Ketones (Stick) Negative mg/dL (NEG) Urine Blood Large (NEG) Urine Nitrite Negative (NEG) Urine Bilirubin Negative (NEG) Urine Urobilinogen Dipstick 0.2 mg/dL (0.2 mg/dL) Urine Leukocyte Esterase Large (NEG) Urine RBC Fobs /HPF (0-2) Urine WBC Tntc /HPF (0-4) Urine Transitional Epithelial Cells Few /LPF Urine Bacteria Moderate /HPF (0-FEW) White Blood Count 7.3 x10^3/uL (4.0-11.0) Red Blood Count 3.75 x10^6/uL (3.50-5.40) Hemoglobin 12.2 g/dL (12.0-15.5) Hematocrit 37.4 % (36.0-47.0) Mean Corpuscular Volume 100 fL (79-100) Mean Corpuscular Hemoglobin 33 pg (25-35) Mean Corpuscular Hemoglobin Concent 33 g/dL (31-37) Red Cell Distribution Width 16.1 % (11.5-14.5) Platelet Count 194 x10^3/uL (140-400) Neutrophils (%) (Auto) 75 % (31-73) Lymphocytes (%) (Auto) 16 % (24-48) Monocytes (%) (Auto) 7 % (0-9) Eosinophils (%) (Auto) 2 % (0-3) Basophils (%) (Auto) 1 % (0-3) Neutrophils # (Auto) 5.4 x10^3uL (1.8-7.7) Lymphocytes # (Auto) 1.2 x10^3/uL (1.0-4.8) Monocytes # (Auto) 0.5 x10^3/uL (0.0-1.1) Eosinophils # (Auto) 0.1 x10^3/uL (0.0-0.7) Basophils # (Auto) 0.1 x10^3/uL (0.0-0.2) Sodium Level 138 mmol/L (136-145) Potassium Level 3.8 mmol/L (3.5-5.1) Chloride Level 96 mmol/L (98-107) Carbon Dioxide Level 30 mmol/L (21-32) Anion Gap 12 (6-14) Blood Urea Nitrogen 20 mg/dL (7-20) Creatinine 3.8 mg/dL (0.6-1.0) Estimated GFR (Cockcroft-Gault) 11.5 BUN/Creatinine Ratio 5 (6-20) Glucose Level 168 mg/dL (70-99) Calcium Level 8.0 mg/dL (8.5-10.1) Magnesium Level 1.6 mg/dL (1.8-2.4) Total Bilirubin 0.6 mg/dL (0.2-1.0) Aspartate Amino Transf (AST/SGOT) 17 U/L (15-37) Alanine Aminotransferase (ALT/SGPT) 26 U/L (14-59) Alkaline Phosphatase 175 U/L (46-116) Creatine Kinase 43 U/L (26-192) Creatine Kinase MB (Mass) 1.2 ng/mL (0.0-3.6) Creatine Kinase MB Relative Index % (0-4) Troponin I Quantitative < 0.017 ng/mL (0.000-0.055) Total Protein 8.2 g/dL (6.4-8.2) Albumin 3.4 g/dL (3.4-5.0) Albumin/Globulin Ratio 0.7 (1.0-1.7) Lipase 236 U/L (73-393) Glucose (Fingerstick) 148 mg/dL (70-99) Test 12/05/18 16:05 12/05/18 16:27 12/05/18 18:55 12/05/18 18:56 Troponin I Quantitative < 0.017 ng/mL (0.000-0.055) < 0.017 ng/mL (0.000-0.055) Glucose (Fingerstick) 173 mg/dL (70-99) 279 mg/dL (70-99) Test 12/05/18 20:10 12/06/18 07:35 Glucose (Fingerstick) 184 mg/dL (70-99) 128 mg/dL (70-99) Assessment and Plan Assessmemt and Plan Problems Medical Problems: (1) Generalized weakness Status: Acute (2) UTI (urinary tract infection) Status: Acute URINE CULTURE Final Final report URINE CULTURE RES 1 Final Escherichia coli Greater than 100,000 colony forming units per mL Cefazolin <=4 ug/mL Cefazolin with an SIL <=16 predicts susceptibility to the oral agents cefaclor, cefdinir, cefpodoxime, cefprozil, cefuroxime, cephalexin, and loracarbef when used for therapy of uncomplicated urinary tract infections due to E. coli, Klebsiella pneumoniae, and Proteus mirabilis. ANTIMICROBIAL SUSCEPTIBILITY Final Comment S = Susceptible; I = Intermediate; R = Resistant P = Positive; N = Negative MICS are expressed in micrograms per mL Antibiotic RSLT#1 RSLT#2 RSLT#3 RSLT#4 Amoxicillin/Clavulanic Acid S<=2 Ampicillin S<=2 Cefepime S<=0.12 Ceftriaxone S<=0.25 Cefuroxime S =4 Ciprofloxacin R>=4 Ertapenem S<=0.12 Gentamicin S<=1 Imipenem S<=0.25 Levofloxacin R>=8 Meropenem S<=0.25 Nitrofurantoin S<=16 Piperacillin/Tazobactam S<=4 Tetracycline S<=1 Tobramycin S<=1 Trimethoprim/Sulfa S<=20 Performed at: [facility] - [facility] [address], [place], [place] [id number] Comment Review of Relevant I have reviewed the following items anastasiya (where applicable) has been applied. Labs Laboratory Tests Test 12/05/18 11:22 12/05/18 11:43 12/05/18 12:05 12/05/18 14:06 Urine Collection Type Unknown Urine Color Yellow Urine Clarity Turbid Urine pH 8.0 Urine Specific [place] 1.010 Urine Protein 100 mg/dL (NEG-TRACE) Urine Glucose (UA) Negative mg/dL (NEG) Urine Ketones (Stick) Negative mg/dL (NEG) Urine Blood Large (NEG) Urine Nitrite Negative (NEG) Urine Bilirubin Negative (NEG) Urine Urobilinogen Dipstick 0.2 mg/dL (0.2 mg/dL) Urine Leukocyte Esterase Large (NEG) Urine RBC Fobs /HPF (0-2) Urine WBC Tntc /HPF (0-4) Urine Transitional Epithelial Cells Few /LPF Urine Bacteria Moderate /HPF (0-FEW) White Blood Count 7.3 x10^3/uL (4.0-11.0) Red Blood Count 3.75 x10^6/uL (3.50-5.40) Hemoglobin 12.2 g/dL (12.0-15.5) Hematocrit 37.4 % (36.0-47.0) Mean Corpuscular Volume 100 fL (79-100) Mean Corpuscular Hemoglobin 33 pg (25-35) Mean Corpuscular Hemoglobin Concent 33 g/dL (31-37) Red Cell Distribution Width 16.1 % (11.5-14.5) Platelet Count 194 x10^3/uL (140-400) Neutrophils (%) (Auto) 75 % (31-73) Lymphocytes (%) (Auto) 16 % (24-48) Monocytes (%) (Auto) 7 % (0-9) Eosinophils (%) (Auto) 2 % (0-3) Basophils (%) (Auto) 1 % (0-3) Neutrophils # (Auto) 5.4 x10^3uL (1.8-7.7) Lymphocytes # (Auto) 1.2 x10^3/uL (1.0-4.8) Monocytes # (Auto) 0.5 x10^3/uL (0.0-1.1) Eosinophils # (Auto) 0.1 x10^3/uL (0.0-0.7) Basophils # (Auto) 0.1 x10^3/uL (0.0-0.2) Sodium Level 138 mmol/L (136-145) Potassium Level 3.8 mmol/L (3.5-5.1) Chloride Level 96 mmol/L (98-107) Carbon Dioxide Level 30 mmol/L (21-32) Anion Gap 12 (6-14) Blood Urea Nitrogen 20 mg/dL (7-20) Creatinine 3.8 mg/dL (0.6-1.0) Estimated GFR (Cockcroft-Gault) 11.5 BUN/Creatinine Ratio 5 (6-20) Glucose Level 168 mg/dL (70-99) Calcium Level 8.0 mg/dL (8.5-10.1) Magnesium Level 1.6 mg/dL (1.8-2.4) Total Bilirubin 0.6 mg/dL (0.2-1.0) Aspartate Amino Transf (AST/SGOT) 17 U/L (15-37) Alanine Aminotransferase (ALT/SGPT) 26 U/L (14-59) Alkaline Phosphatase 175 U/L (46-116) Creatine Kinase 43 U/L (26-192) Creatine Kinase MB (Mass) 1.2 ng/mL (0.0-3.6) Creatine Kinase MB Relative Index % (0-4) Troponin I Quantitative < 0.017 ng/mL (0.000-0.055) Total Protein 8.2 g/dL (6.4-8.2) Albumin 3.4 g/dL (3.4-5.0) Albumin/Globulin Ratio 0.7 (1.0-1.7) Lipase 236 U/L (73-393) Glucose (Fingerstick) 148 mg/dL (70-99) Test 12/05/18 16:05 12/05/18 16:27 12/05/18 18:55 12/05/18 18:56 Troponin I Quantitative < 0.017 ng/mL (0.000-0.055) < 0.017 ng/mL (0.000-0.055) Glucose (Fingerstick) 173 mg/dL (70-99) 279 mg/dL (70-99) Test 12/05/18 20:10 12/06/18 07:35 Glucose (Fingerstick) 184 mg/dL (70-99) 128 mg/dL (70-99) Laboratory Tests Test 12/05/18 11:22 12/05/18 11:43 12/05/18 12:05 12/05/18 14:06 Urine Collection Type Unknown Urine Color Yellow Urine Clarity Turbid Urine pH 8.0 Urine Specific [place] 1.010 Urine Protein 100 mg/dL (NEG-TRACE) Urine Glucose (UA) Negative mg/dL (NEG) Urine Ketones (Stick) Negative mg/dL (NEG) Urine Blood Large (NEG) Urine Nitrite Negative (NEG) Urine Bilirubin Negative (NEG) Urine Urobilinogen Dipstick 0.2 mg/dL (0.2 mg/dL) Urine Leukocyte Esterase Large (NEG) Urine RBC Fobs /HPF (0-2) Urine WBC Tntc /HPF (0-4) Urine Transitional Epithelial Cells Few /LPF Urine Bacteria Moderate /HPF (0-FEW) White Blood Count 7.3 x10^3/uL (4.0-11.0) Red Blood Count 3.75 x10^6/uL (3.50-5.40) Hemoglobin 12.2 g/dL (12.0-15.5) Hematocrit 37.4 % (36.0-47.0) Mean Corpuscular Volume 100 fL (79-100) Mean Corpuscular Hemoglobin 33 pg (25-35) Mean Corpuscular Hemoglobin Concent 33 g/dL (31-37) Red Cell Distribution Width 16.1 % (11.5-14.5) Platelet Count 194 x10^3/uL (140-400) Neutrophils (%) (Auto) 75 % (31-73) Lymphocytes (%) (Auto) 16 % (24-48) Monocytes (%) (Auto) 7 % (0-9) Eosinophils (%) (Auto) 2 % (0-3) Basophils (%) (Auto) 1 % (0-3) Neutrophils # (Auto) 5.4 x10^3uL (1.8-7.7) Lymphocytes # (Auto) 1.2 x10^3/uL (1.0-4.8) Monocytes # (Auto) 0.5 x10^3/uL (0.0-1.1) Eosinophils # (Auto) 0.1 x10^3/uL (0.0-0.7) Basophils # (Auto) 0.1 x10^3/uL (0.0-0.2) Sodium Level 138 mmol/L (136-145) Potassium Level 3.8 mmol/L (3.5-5.1) Chloride Level 96 mmol/L (98-107) Carbon Dioxide Level 30 mmol/L (21-32) Anion Gap 12 (6-14) Blood Urea Nitrogen 20 mg/dL (7-20) Creatinine 3.8 mg/dL (0.6-1.0) Estimated GFR (Cockcroft-Gault) 11.5 BUN/Creatinine Ratio 5 (6-20) Glucose Level 168 mg/dL (70-99) Calcium Level 8.0 mg/dL (8.5-10.1) Magnesium Level 1.6 mg/dL (1.8-2.4) Total Bilirubin 0.6 mg/dL (0.2-1.0) Aspartate Amino Transf (AST/SGOT) 17 U/L (15-37) Alanine Aminotransferase (ALT/SGPT) 26 U/L (14-59) Alkaline Phosphatase 175 U/L (46-116) Creatine Kinase 43 U/L (26-192) Creatine Kinase MB (Mass) 1.2 ng/mL (0.0-3.6) Creatine Kinase MB Relative Index % (0-4) Troponin I Quantitative < 0.017 ng/mL (0.000-0.055) Total Protein 8.2 g/dL (6.4-8.2) Albumin 3.4 g/dL (3.4-5.0) Albumin/Globulin Ratio 0.7 (1.0-1.7) Lipase 236 U/L (73-393) Glucose (Fingerstick) 148 mg/dL (70-99) Test 12/05/18 16:05 12/05/18 16:27 12/05/18 18:55 12/05/18 18:56 Troponin I Quantitative < 0.017 ng/mL (0.000-0.055) < 0.017 ng/mL (0.000-0.055) Glucose (Fingerstick) 173 mg/dL (70-99) 279 mg/dL (70-99) Test 12/05/18 20:10 12/06/18 07:35 Glucose (Fingerstick) 184 mg/dL (70-99) 128 mg/dL (70-99) Medications Current Medications Ondansetron HCl (Zofran) 4 mg 1X ONCE IV Last administered on 12/05/18at 12:01; Start 12/05/18 at 11:30; Stop 12/05/18 at 11:31; Status DC Ceftriaxone Sodium (Rocephin) 1 gm 1X ONCE IVP Last administered on 12/05/18at 12:50; Start 12/05/18 at 12:30; Stop 12/05/18 at 12:31; Status DC Ondansetron HCl (Zofran) 4 mg PRN Q8HRS PRN IV NAUSEA/VOMITING; Start 12/05/18 at 13:00; Stop 12/05/18 at 13:09; Status DC Acetaminophen (Tylenol) 650 mg PRN Q4HRS PRN PO FEVER; Start 12/05/18 at 13:00; Stop 12/06/18 at 12:59 Insulin Human Lispro (HumaLOG) 0-5 UNITS TIDWMEALS SQ ; Start 12/05/18 at 17:00; Stop 12/05/18 at 17:00; Status DC Dextrose (Dextrose 50%-Water Syringe) 12.5 gm PRN Q15MIN PRN IV SEE COMMENTS; Start 12/05/18 at 13:00 Aspirin (Ecotrin) 81 mg DAILY08 PO Last administered on 12/06/18at 09:42; Start 12/05/18 at 15:30 Clopidogrel Bisulfate (Plavix) 75 mg DAILY PO Last administered on 12/06/18at 09 :42; Start 12/05/18 at 15:30 Estradiol (Estrace) 1 scotty 3X/WEEK VG ; Start 12/06/18 at 09:00 Insulin Glargine (Lantus) 6 units QHS SQ Last administered on 12/05/18at 21:22; Start 12/05/18 at 21:00 Calcium Acetate (Phoslo) 1,334 mg TIDWMEALS PO Last administered on 12/06/18at 09:42; Start 12/05/18 at 17:00 Insulin Human Lispro (HumaLOG) 6 units TIDWMEALS SQ Last administered on at 09:45; Start 12/05/18 at 17:00 Simvastatin (Zocor) 40 mg QHS PO Last administered on 12/05/18at 21:19; Start 12/05/18 at 21:00 Ondansetron HCl (Zofran) 4 mg PRN Q6HRS PRN IV NAUSEA/VOMITING; Start 12/05/18 at 13:15 Piperacillin Sod/ Tazobactam Sod (Zosyn Per Pharmacy) 1 each PRN DAILY PRN MC SEE COMMENTS; Start 12/05/18 at 13:15 Insulin Human Lispro (HumaLOG) 0-9 UNITS TIDWMEALS SQ Last administered on at 19:00; Start 12/05/18 at 17:00 Dextrose (Dextrose 50%-Water Syringe) 12.5 gm PRN Q15MIN PRN IV SEE COMMENTS; Start 12/05/18 at 13:15; Status UNV Acetaminophen/ Hydrocodone Bitart (Lortab 5/325) 1 tab PRN Q4HRS PRN PO PAIN; Start 12/05/18 at 13:15 Piperacillin Sod/ Tazobactam Sod 2.25 gm/Sodium Chloride 50 ml @ 100 mls/hr Q8HRS IV Last administered on 12/06/18at 05:59; Start 12/05/18 at 15:30 Active Scripts Active Estrace (Estradiol) 42.5 Gm Cream.appl 1 Scotty VG 3X/WEEK 14 Days Reported Clopidogrel (Clopidogrel Bisulfate) 75 Mg Tablet 1 Tab PO DAILY Novolog (Insulin Aspart) 100 Unit/1 Ml Cartridge 6 Unit SQ TIDAC Lantus Solostar (Insulin Glargine,Hum.rec.anlog) 100 Unit/1 Ml Insuln.pen 6 Unit SQ QHS [regrenex] TOP DAILY PRN Calcium Acetate 667 Mg Tablet 2 Cap PO TIDAC Simvastatin 40 Mg Tablet 1 Tab PO QHS Last dose given: 08-20-14 9:00 p.m. Next dose due: tonight Aspir 81 (Aspirin) 81 Mg Tablet.dr 1 Tab PO DAILY08 Vitals/I & O Vital Sign - Last 24 Hours 12/05/18 12/05/18 12/05/18 12/05/18 11:28 12:17 12:30 13:00 Temp 98.0 98.0 Pulse 97 91 86 87 Resp 18 20 B/P (MAP) 142/64 (90) 135/62 (86) 129/60 (83) 126/59 (81) Pulse Ox 95 90 97 100 O2 Delivery Room Air Room Air Nasal Cannula Nasal Cannula O2 Flow Rate 2.0 2.0 12/05/18 12/05/18 12/05/18 12/05/18 13:30 14:00 14:30 15:00 Pulse 87 87 83 86 B/P (MAP) 124/58 (80) 140/62 (88) 123/58 (79) 137/61 (86) Pulse Ox 98 100 98 98 O2 Delivery Nasal Cannula Nasal Cannula Nasal Cannula Nasal Cannula O2 Flow Rate 2.0 2.0 2.0 2.0 12/05/18 12/05/18 12/05/18 12/05/18 15:30 15:52 16:00 19:25 Temp 97.6 98.2 97.6 98.2 Pulse 85 101 85 Resp 19 16 B/P (MAP) 157/67 (97) 127/48 (74) 104/47 (66) Pulse Ox 98 94 95 O2 Delivery Nasal Cannula Room Air Room Air Room Air O2 Flow Rate 2.0 12/05/18 12/05/18 12/06/18 12/06/18 20:00 23:04 03:40 07:00 Temp 98.4 98.4 97.9 98.4 98.4 97.9 Pulse 89 90 79 Resp 16 16 18 B/P (MAP) 110/53 (72) 102/49 (66) 109/76 (87) Pulse Ox 92 92 99 O2 Delivery Room Air Room Air Room Air Room Air Intake and Output 12/05/18 12/05/18 12/06/18 15:00 23:00 07:00 Intake Total 200 ml 410 ml Balance 200 ml 410 ml FLORI DAVIES MD Dec 06, 2018 10:37
[2018-12-06 11:00] VITALS: BP 112/44
[2018-12-06 12:21] LABS: BASO # 0.1 x10^3/uL (0.0-0.2); BASO % 1 % (0-3); EOS # 0.2 x10^3/uL (0.0-0.7); EOS % 3 % (0-3); HEMATOCRIT 37.7 % (36.0-47.0); HEMOGLOBIN 12.6 g/dL (12.0-15.5); LYMPH # 1.6 x10^3/uL (1.0-4.8); LYMPH % 27 % (24-48); MEAN CORPUSCULAR HEMOGLOBIN 34 pg (25-35); MEAN CORPUSCULAR HGB CONC 33 g/dL (31-37); MEAN CORPUSCULAR VOLUME 102 fL (79-100); MONO # 0.5 x10^3/uL (0.0-1.1); MONO % 9 % (0-9); NEUT # 3.7 x10^3uL (1.8-7.7); NEUT % 61 % (31-73); PLATELET COUNT 184 x10^3/uL (140-400); RED BLOOD COUNT 3.72 x10^6/uL (3.50-5.40); RED CELL DISTRIBUTION WIDTH 16.2 % (11.5-14.5)
[2018-12-06 12:29] LABS: CALCIUM 8.4 mg/dL (8.5-10.1); CREATININE 5.9 mg/dL (0.6-1.0); POTASSIUM 3.9 mmol/L (3.5-5.1)
--- NOTE | 2018-12-06 12:57 | NUR ---
SW following. Pt denied any PT/OT needs, stating she is independent with all ADL's and mobility. SW will continue to follow for any other discharge planning needs.
--- NOTE | 2018-12-06 14:30 | NUR ---
Wound care: Patient seen per wound care consult. See wound assessment. Patient is well known to us in the wound clinic. 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 Dressing removed and wound cleansed, assessed, measured, and pictured. Recommendations for Hydrofera Blue (left in room), contact layer, ABD pad and kerlix. Dressing applied and patient tolerated well. No other wounds noted upon complete head to toe assessment. Patient coccyx reddened but remains blanchable. Calazime cream applied. Patient educated on turning as well. Patient repositioned in bed. Dressing change instructions left in room. Bed lowered and call light in reach. Will follow patient regarding wound care.
[2018-12-06 15:00] VITALS: BP 129/55
--- NOTE | 2018-12-06 17:10 | PDOC2 ---
CONSULT Date of Consult Date of Consult DATE: 12/06/18 TIME: 17:04 Reason for Consult Reason for Consult: ESRd Source Source: Chart review, Patient History of Present Illness Reason for Visit: 78-year-old female , nonspecific complaints during dialysis. She claims her blood sugar was low but it was 136-she claims that is low for her She also claims she gets low blood pressure during dialysis. She is incontinent of urine and a history of complicated UTI. Last urine culture showed Escherichia coli sensitive to penicillin but resistant to some. has seen DR Vang of urology. admitted for treating UTI No complaints now, states she always have UTI. 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 No LE edema Past Medical History Cardiovascular: CAD, HTN, Hyperlipidemia GI: Other Heme/Onc: No pertinent hx Psych: No pertinent hx Rheumatologic: No pertinent hx Infectious disease: No pertinent hx Renal/: Chronic renal failure, UTI, Hematuria, Other Endocrine: Diabetes, Hyperparathyroidism Past Surgical History Past Surgical History: CABG, Cystoscopy, Other Family History Family History: Hypertension, Other Social History No ALCOHOL: none Drugs: None Lives: with Family Current Problem List Problem List Problems Medical Problems: (1) Generalized weakness Status: Acute (2) UTI (urinary tract infection) Status: Acute Current Medications Current Medications Current Medications Ondansetron HCl (Zofran) 4 mg 1X ONCE IV Last administered on 12/05/18at 12:01; Start 12/05/18 at 11:30; Stop 12/05/18 at 11:31; Status DC Ceftriaxone Sodium (Rocephin) 1 gm 1X ONCE IVP Last administered on 12/05/18at 12:50; Start 12/05/18 at 12:30; Stop 12/05/18 at 12:31; Status DC Ondansetron HCl (Zofran) 4 mg PRN Q8HRS PRN IV NAUSEA/VOMITING; Start 12/05/18 at 13:00; Stop 12/05/18 at 13:09; Status DC Acetaminophen (Tylenol) 650 mg PRN Q4HRS PRN PO FEVER; Start 12/05/18 at 13:00; Stop 12/06/18 at 12:59; Status DC Insulin Human Lispro (HumaLOG) 0-5 UNITS TIDWMEALS SQ ; Start 12/05/18 at 17:00; Stop 12/05/18 at 17:00; Status DC Dextrose (Dextrose 50%-Water Syringe) 12.5 gm PRN Q15MIN PRN IV SEE COMMENTS; Start 12/05/18 at 13:00 Aspirin (Ecotrin) 81 mg DAILY08 PO Last administered on 12/06/18at 09:42; Start 12/05/18 at 15:30 Clopidogrel Bisulfate (Plavix) 75 mg DAILY PO Last administered on 12/06/18at 09 :42; Start 12/05/18 at 15:30 Estradiol (Estrace) 1 scotty 3X/WEEK VG ; Start 12/06/18 at 09:00 Insulin Glargine (Lantus) 6 units QHS SQ Last administered on 12/05/18at 21:22; Start 12/05/18 at 21:00 Calcium Acetate (Phoslo) 1,334 mg TIDWMEALS PO Last administered on 12/06/18at 11:47; Start 12/05/18 at 17:00 Insulin Human Lispro (HumaLOG) 6 units TIDWMEALS SQ Last administered on at 11:48; Start 12/05/18 at 17:00 Simvastatin (Zocor) 40 mg QHS PO Last administered on 12/05/18at 21:19; Start 12/05/18 at 21:00 Ondansetron HCl (Zofran) 4 mg PRN Q6HRS PRN IV NAUSEA/VOMITING; Start 12/05/18 at 13:15 Piperacillin Sod/ Tazobactam Sod (Zosyn Per Pharmacy) 1 each PRN DAILY PRN MC SEE COMMENTS; Start 12/05/18 at 13:15; Stop 12/06/18 at 16:56; Status DC Insulin Human Lispro (HumaLOG) 0-9 UNITS TIDWMEALS SQ Last administered on 12/06at 11:50; Start 12/05/18 at 17:00 Dextrose (Dextrose 50%-Water Syringe) 12.5 gm PRN Q15MIN PRN IV SEE COMMENTS; Start 12/05/18 at 13:15; Status UNV Acetaminophen/ Hydrocodone Bitart (Lortab 5/325) 1 tab PRN Q4HRS PRN PO PAIN; Start 12/05/18 at 13:15 Piperacillin Sod/ Tazobactam Sod 2.25 gm/Sodium Chloride 50 ml @ 100 mls/hr Q8HRS IV Last administered on 12/06/18at 13:57; Start 12/05/18 at 15:30; Stop 06/16 at 16:56; Status DC Ceftriaxone Sodium (Rocephin) 1 gm Q24H IVP ; Start 12/06/18 at 21:00 Active Scripts Active Estrace (Estradiol) 42.5 Gm Cream.appl 1 Scotty VG 3X/WEEK 14 Days Reported Clopidogrel (Clopidogrel Bisulfate) 75 Mg Tablet 1 Tab PO DAILY Novolog (Insulin Aspart) 100 Unit/1 Ml Cartridge 6 Unit SQ TIDAC Lantus Solostar (Insulin Glargine,Hum.rec.anlog) 100 Unit/1 Ml Insuln.pen 6 Unit SQ QHS [regrenex] TOP DAILY PRN Calcium Acetate 667 Mg Tablet 2 Cap PO TIDAC Simvastatin 40 Mg Tablet 1 Tab PO QHS Last dose given: 08-20-14 9:00 p.m. Next dose due: tonight Aspir 81 (Aspirin) 81 Mg Tablet.dr 1 Tab PO DAILY08 Allergies Allergies: Coded Allergies: latex (Verified Allergy, Intermediate, Rash, 12/30/17) ROS Review of System As per HPI Physical Exam Physical Exam General: NAD HEENT: OM moist Lungs: Clear to auscultation Heart: RRR Cardiovascular: S1, S2 Abdomen: Normal bowel sounds, Soft, No tenderness, Extremities: No edema Skin: No rashes Neuro: Grossly normal Skin No Rash Vital Signs Vital Signs Date Time Temp Pulse Resp B/P (MAP) Pulse Ox O2 Delivery O2 Flow Rate FiO2 12/06/18 15:00 97.7 83 16 129/55 (79) 96 Room Air 97.7 12/06/18 08:00 2.0 Assessment & Plan ESRD - On HD TTS No indication for Dialysis Today Phoslo with meals Complicated UTI- last urine culture 11/16/18 Escherichia coli Anemia - stable No Indication for BIJAN History of CABG DM 2 DW Pt and RN Labs Labs Laboratory Tests Test 12/05/18 11:22 12/05/18 11:43 12/05/18 12:05 12/05/18 14:06 Urine Collection Type Unknown Urine Color Yellow Urine Clarity Turbid Urine pH 8.0 Urine Specific [place] 1.010 Urine Protein 100 mg/dL (NEG-TRACE) Urine Glucose (UA) Negative mg/dL (NEG) Urine Ketones (Stick) Negative mg/dL (NEG) Urine Blood Large (NEG) Urine Nitrite Negative (NEG) Urine Bilirubin Negative (NEG) Urine Urobilinogen Dipstick 0.2 mg/dL (0.2 mg/dL) Urine Leukocyte Esterase Large (NEG) Urine RBC Fobs /HPF (0-2) Urine WBC Tntc /HPF (0-4) Urine Transitional Epithelial Cells Few /LPF Urine Bacteria Moderate /HPF (0-FEW) White Blood Count 7.3 x10^3/uL (4.0-11.0) Red Blood Count 3.75 x10^6/uL (3.50-5.40) Hemoglobin 12.2 g/dL (12.0-15.5) Hematocrit 37.4 % (36.0-47.0) Mean Corpuscular Volume 100 fL (79-100) Mean Corpuscular Hemoglobin 33 pg (25-35) Mean Corpuscular Hemoglobin Concent 33 g/dL (31-37) Red Cell Distribution Width 16.1 % (11.5-14.5) Platelet Count 194 x10^3/uL (140-400) Neutrophils (%) (Auto) 75 % (31-73) Lymphocytes (%) (Auto) 16 % (24-48) Monocytes (%) (Auto) 7 % (0-9) Eosinophils (%) (Auto) 2 % (0-3) Basophils (%) (Auto) 1 % (0-3) Neutrophils # (Auto) 5.4 x10^3uL (1.8-7.7) Lymphocytes # (Auto) 1.2 x10^3/uL (1.0-4.8) Monocytes # (Auto) 0.5 x10^3/uL (0.0-1.1) Eosinophils # (Auto) 0.1 x10^3/uL (0.0-0.7) Basophils # (Auto) 0.1 x10^3/uL (0.0-0.2) Sodium Level 138 mmol/L (136-145) Potassium Level 3.8 mmol/L (3.5-5.1) Chloride Level 96 mmol/L (98-107) Carbon Dioxide Level 30 mmol/L (21-32) Anion Gap 12 (6-14) Blood Urea Nitrogen 20 mg/dL (7-20) Creatinine 3.8 mg/dL (0.6-1.0) Estimated GFR (Cockcroft-Gault) 11.5 BUN/Creatinine Ratio 5 (6-20) Glucose Level 168 mg/dL (70-99) Calcium Level 8.0 mg/dL (8.5-10.1) Magnesium Level 1.6 mg/dL (1.8-2.4) Total Bilirubin 0.6 mg/dL (0.2-1.0) Aspartate Amino Transf (AST/SGOT) 17 U/L (15-37) Alanine Aminotransferase (ALT/SGPT) 26 U/L (14-59) Alkaline Phosphatase 175 U/L (46-116) Creatine Kinase 43 U/L (26-192) Creatine Kinase MB (Mass) 1.2 ng/mL (0.0-3.6) Creatine Kinase MB Relative Index % (0-4) Troponin I Quantitative < 0.017 ng/mL (0.000-0.055) Total Protein 8.2 g/dL (6.4-8.2) Albumin 3.4 g/dL (3.4-5.0) Albumin/Globulin Ratio 0.7 (1.0-1.7) Lipase 236 U/L (73-393) Glucose (Fingerstick) 148 mg/dL (70-99) Test 12/05/18 16:05 12/05/18 16:27 12/05/18 18:55 12/05/18 18:56 Troponin I Quantitative < 0.017 ng/mL (0.000-0.055) < 0.017 ng/mL (0.000-0.055) Glucose (Fingerstick) 173 mg/dL (70-99) 279 mg/dL (70-99) Test 12/05/18 20:10 12/06/18 07:35 12/06/18 11:42 12/06/18 12:10 Glucose (Fingerstick) 184 mg/dL (70-99) 128 mg/dL (70-99) 286 mg/dL (70-99) White Blood Count 6.0 x10^3/uL (4.0-11.0) Red Blood Count 3.72 x10^6/uL (3.50-5.40) Hemoglobin 12.6 g/dL (12.0-15.5) Hematocrit 37.7 % (36.0-47.0) Mean Corpuscular Volume 102 fL (79-100) Mean Corpuscular Hemoglobin 34 pg (25-35) Mean Corpuscular Hemoglobin Concent 33 g/dL (31-37) Red Cell Distribution Width 16.2 % (11.5-14.5) Platelet Count 184 x10^3/uL (140-400) Neutrophils (%) (Auto) 61 % (31-73) Lymphocytes (%) (Auto) 27 % (24-48) Monocytes (%) (Auto) 9 % (0-9) Eosinophils (%) (Auto) 3 % (0-3) Basophils (%) (Auto) 1 % (0-3) Neutrophils # (Auto) 3.7 x10^3uL (1.8-7.7) Lymphocytes # (Auto) 1.6 x10^3/uL (1.0-4.8) Monocytes # (Auto) 0.5 x10^3/uL (0.0-1.1) Eosinophils # (Auto) 0.2 x10^3/uL (0.0-0.7) Basophils # (Auto) 0.1 x10^3/uL (0.0-0.2) Sodium Level 136 mmol/L (136-145) Potassium Level 3.9 mmol/L (3.5-5.1) Chloride Level 96 mmol/L (98-107) Carbon Dioxide Level 29 mmol/L (21-32) Anion Gap 11 (6-14) Blood Urea Nitrogen 41 mg/dL (7-20) Creatinine 5.9 mg/dL (0.6-1.0) Estimated GFR (Cockcroft-Gault) 7.0 Glucose Level 295 mg/dL (70-99) Calcium Level 8.4 mg/dL (8.5-10.1) Test 12/06/18 16:36 Glucose (Fingerstick) 150 mg/dL (70-99) Laboratory Tests Test 12/05/18 18:55 12/05/18 18:56 12/05/18 20:10 12/06/18 07:35 Troponin I Quantitative < 0.017 ng/mL (0.000-0.055) Glucose (Fingerstick) 279 mg/dL (70-99) 184 mg/dL (70-99) 128 mg/dL (70-99) Test 12/06/18 11:42 12/06/18 12:10 12/06/18 16:36 Glucose (Fingerstick) 286 mg/dL (70-99) 150 mg/dL (70-99) White Blood Count 6.0 x10^3/uL (4.0-11.0) Red Blood Count 3.72 x10^6/uL (3.50-5.40) Hemoglobin 12.6 g/dL (12.0-15.5) Hematocrit 37.7 % (36.0-47.0) Mean Corpuscular Volume 102 fL (79-100) Mean Corpuscular Hemoglobin 34 pg (25-35) Mean Corpuscular Hemoglobin Concent 33 g/dL (31-37) Red Cell Distribution Width 16.2 % (11.5-14.5) Platelet Count 184 x10^3/uL (140-400) Neutrophils (%) (Auto) 61 % (31-73) Lymphocytes (%) (Auto) 27 % (24-48) Monocytes (%) (Auto) 9 % (0-9) Eosinophils (%) (Auto) 3 % (0-3) Basophils (%) (Auto) 1 % (0-3) Neutrophils # (Auto) 3.7 x10^3uL (1.8-7.7) Lymphocytes # (Auto) 1.6 x10^3/uL (1.0-4.8) Monocytes # (Auto) 0.5 x10^3/uL (0.0-1.1) Eosinophils # (Auto) 0.2 x10^3/uL (0.0-0.7) Basophils # (Auto) 0.1 x10^3/uL (0.0-0.2) Sodium Level 136 mmol/L (136-145) Potassium Level 3.9 mmol/L (3.5-5.1) Chloride Level 96 mmol/L (98-107) Carbon Dioxide Level 29 mmol/L (21-32) Anion Gap 11 (6-14) Blood Urea Nitrogen 41 mg/dL (7-20) Creatinine 5.9 mg/dL (0.6-1.0) Estimated GFR (Cockcroft-Gault) 7.0 Glucose Level 295 mg/dL (70-99) Calcium Level 8.4 mg/dL (8.5-10.1) Review All relevant outside records, renal labs, imaging studies, telemetry/EKG's were reviewed. LUCIO TORRES MD Dec 06, 2018 17:10
[2018-12-06 19:20] VITALS: BP 135/56
[2018-12-06] MEDS ORDERED: cefTRIAXone IV Push 1 GM VIAL. IVP SCH (21:00)
[2018-12-06] MEDS: LACTOBACILLUS RHAMNOSUS GG 1 CAPSULE. PO SCH (21:14)
[2018-12-06] MEDS: SIMVASTATIN 40 MG TABLET. PO SCH (21:15)
[2018-12-06] MEDS: INSULIN GLARGINE 300 UNITS/3 ML INSULN.PEN. SQ SCH (21:30)
[2018-12-06 23:15] VITALS: BP 106/46
[2018-12-07 03:45] VITALS: BP 104/45
[2018-12-07 07:00] VITALS: BP 131/56
[2018-12-07] MEDS: INSULIN LISPRO 300 UNITS/3 ML INSULN.PEN. SQ SCH ×4 (08:00→12:00)
[2018-12-07] MEDS: CALCIUM ACETATE 667 MG CAPSULE PO SCH ×2 (08:00→12:00)
[2018-12-07] MEDS: LACTOBACILLUS RHAMNOSUS GG 1 CAPSULE. PO SCH (09:00)
--- NOTE | 2018-12-07 10:39 | PDOC ---
PROGRESS NOTES History of Present Illness History of Present Illness Assessment/Plan complicated UTI-last urine culture 11/16/18 Escherichia coli UTI sensitive to penicillin resistant to some ESRD on dialysis TTH S- Anemia of ESRD History of CABG CAD chronic stable/N STEMI Hypothyroidism on Synthroid replacement DM 2 low-dose insulin-sliding scale insulin urinary incontinence Plan: OBS STATUS Await urine culture Zosyn per pharmacy PT OT Dialysis per renal Home meds I have reconciled Awaiting urine CULTURE, NEG full code Urology as OP again Dr Vang re incontinence D/C PLANNING 24 MIN Vitals Vitals Vital Signs Date Time Temp Pulse Resp B/P (MAP) Pulse Ox O2 Delivery O2 Flow Rate FiO2 12/07/18 07:00 97.6 81 16 131/56 (81) 98 Room Air 97.6 12/06/18 08:00 2.0 Physical Exam General: Alert, Oriented X3, Cooperative, No acute distress Lungs: Clear Abdomen: Normal bowel sounds, Soft, No tenderness, No hepatosplenomegaly, No masses Extremities: No clubbing, No cyanosis, No edema, Normal pulses, No tenderness/ swelling Skin: No rashes, No breakdown, No significant lesion Labs LABS SPEC #: [id number] DORIS: 12/05/18 STATUS: COMP REQ #: [id number] RECD: 12/05/[address]: HAWA SILVA DO SOURCE: VOID ENTR: 12/05/[address] [facility] [address]: [facility]HOUN [facility]: ORDERED: URINE CULTURE Procedure Result URINE CULTURE Final Final report URINE CULTURE RES 1 Final No growth Performed at: - [facility] [id number], [place], [place] [id number] Green House Manager: RUBEN Moran MD, Phone: [phone] Laboratory Tests Test 12/06/18 11:42 12/06/18 12:10 12/06/18 16:36 12/06/18 21:04 Glucose (Fingerstick) 286 mg/dL (70-99) 150 mg/dL (70-99) 285 mg/dL (70-99) White Blood Count 6.0 x10^3/uL (4.0-11.0) Red Blood Count 3.72 x10^6/uL (3.50-5.40) Hemoglobin 12.6 g/dL (12.0-15.5) Hematocrit 37.7 % (36.0-47.0) Mean Corpuscular Volume 102 fL (79-100) Mean Corpuscular Hemoglobin 34 pg (25-35) Mean Corpuscular Hemoglobin Concent 33 g/dL (31-37) Red Cell Distribution Width 16.2 % (11.5-14.5) Platelet Count 184 x10^3/uL (140-400) Neutrophils (%) (Auto) 61 % (31-73) Lymphocytes (%) (Auto) 27 % (24-48) Monocytes (%) (Auto) 9 % (0-9) Eosinophils (%) (Auto) 3 % (0-3) Basophils (%) (Auto) 1 % (0-3) Neutrophils # (Auto) 3.7 x10^3uL (1.8-7.7) Lymphocytes # (Auto) 1.6 x10^3/uL (1.0-4.8) Monocytes # (Auto) 0.5 x10^3/uL (0.0-1.1) Eosinophils # (Auto) 0.2 x10^3/uL (0.0-0.7) Basophils # (Auto) 0.1 x10^3/uL (0.0-0.2) Sodium Level 136 mmol/L (136-145) Potassium Level 3.9 mmol/L (3.5-5.1) Chloride Level 96 mmol/L (98-107) Carbon Dioxide Level 29 mmol/L (21-32) Anion Gap 11 (6-14) Blood Urea Nitrogen 41 mg/dL (7-20) Creatinine 5.9 mg/dL (0.6-1.0) Estimated GFR (Cockcroft-Gault) 7.0 Glucose Level 295 mg/dL (70-99) Calcium Level 8.4 mg/dL (8.5-10.1) Test 12/07/18 08:05 Glucose (Fingerstick) 231 mg/dL (70-99) Assessment and Plan Assessmemt and Plan Problems Medical Problems: (1) Generalized weakness Status: Acute (2) UTI (urinary tract infection) Status: Acute Comment Review of Relevant I have reviewed the following items anastasiya (where applicable) has been applied. Labs Laboratory Tests Test 12/05/18 11:22 12/05/18 11:43 12/05/18 12:05 12/05/18 14:06 Urine Collection Type Unknown Urine Color Yellow Urine Clarity Turbid Urine pH 8.0 Urine Specific [place] 1.010 Urine Protein 100 mg/dL (NEG-TRACE) Urine Glucose (UA) Negative mg/dL (NEG) Urine Ketones (Stick) Negative mg/dL (NEG) Urine Blood Large (NEG) Urine Nitrite Negative (NEG) Urine Bilirubin Negative (NEG) Urine Urobilinogen Dipstick 0.2 mg/dL (0.2 mg/dL) Urine Leukocyte Esterase Large (NEG) Urine RBC Fobs /HPF (0-2) Urine WBC Tntc /HPF (0-4) Urine Transitional Epithelial Cells Few /LPF Urine Bacteria Moderate /HPF (0-FEW) White Blood Count 7.3 x10^3/uL (4.0-11.0) Red Blood Count 3.75 x10^6/uL (3.50-5.40) Hemoglobin 12.2 g/dL (12.0-15.5) Hematocrit 37.4 % (36.0-47.0) Mean Corpuscular Volume 100 fL (79-100) Mean Corpuscular Hemoglobin 33 pg (25-35) Mean Corpuscular Hemoglobin Concent 33 g/dL (31-37) Red Cell Distribution Width 16.1 % (11.5-14.5) Platelet Count 194 x10^3/uL (140-400) Neutrophils (%) (Auto) 75 % (31-73) Lymphocytes (%) (Auto) 16 % (24-48) Monocytes (%) (Auto) 7 % (0-9) Eosinophils (%) (Auto) 2 % (0-3) Basophils (%) (Auto) 1 % (0-3) Neutrophils # (Auto) 5.4 x10^3uL (1.8-7.7) Lymphocytes # (Auto) 1.2 x10^3/uL (1.0-4.8) Monocytes # (Auto) 0.5 x10^3/uL (0.0-1.1) Eosinophils # (Auto) 0.1 x10^3/uL (0.0-0.7) Basophils # (Auto) 0.1 x10^3/uL (0.0-0.2) Sodium Level 138 mmol/L (136-145) Potassium Level 3.8 mmol/L (3.5-5.1) Chloride Level 96 mmol/L (98-107) Carbon Dioxide Level 30 mmol/L (21-32) Anion Gap 12 (6-14) Blood Urea Nitrogen 20 mg/dL (7-20) Creatinine 3.8 mg/dL (0.6-1.0) Estimated GFR (Cockcroft-Gault) 11.5 BUN/Creatinine Ratio 5 (6-20) Glucose Level 168 mg/dL (70-99) Calcium Level 8.0 mg/dL (8.5-10.1) Magnesium Level 1.6 mg/dL (1.8-2.4) Total Bilirubin 0.6 mg/dL (0.2-1.0) Aspartate Amino Transf (AST/SGOT) 17 U/L (15-37) Alanine Aminotransferase (ALT/SGPT) 26 U/L (14-59) Alkaline Phosphatase 175 U/L (46-116) Creatine Kinase 43 U/L (26-192) Creatine Kinase MB (Mass) 1.2 ng/mL (0.0-3.6) Creatine Kinase MB Relative Index % (0-4) Troponin I Quantitative < 0.017 ng/mL (0.000-0.055) Total Protein 8.2 g/dL (6.4-8.2) Albumin 3.4 g/dL (3.4-5.0) Albumin/Globulin Ratio 0.7 (1.0-1.7) Lipase 236 U/L (73-393) Glucose (Fingerstick) 148 mg/dL (70-99) Test 12/05/18 16:05 12/05/18 16:27 12/05/18 18:55 12/05/18 18:56 Troponin I Quantitative < 0.017 ng/mL (0.000-0.055) < 0.017 ng/mL (0.000-0.055) Glucose (Fingerstick) 173 mg/dL (70-99) 279 mg/dL (70-99) Test 12/05/18 20:10 12/06/18 07:35 12/06/18 11:42 12/06/18 12:10 Glucose (Fingerstick) 184 mg/dL (70-99) 128 mg/dL (70-99) 286 mg/dL (70-99) White Blood Count 6.0 x10^3/uL (4.0-11.0) Red Blood Count 3.72 x10^6/uL (3.50-5.40) Hemoglobin 12.6 g/dL (12.0-15.5) Hematocrit 37.7 % (36.0-47.0) Mean Corpuscular Volume 102 fL (79-100) Mean Corpuscular Hemoglobin 34 pg (25-35) Mean Corpuscular Hemoglobin Concent 33 g/dL (31-37) Red Cell Distribution Width 16.2 % (11.5-14.5) Platelet Count 184 x10^3/uL (140-400) Neutrophils (%) (Auto) 61 % (31-73) Lymphocytes (%) (Auto) 27 % (24-48) Monocytes (%) (Auto) 9 % (0-9) Eosinophils (%) (Auto) 3 % (0-3) Basophils (%) (Auto) 1 % (0-3) Neutrophils # (Auto) 3.7 x10^3uL (1.8-7.7) Lymphocytes # (Auto) 1.6 x10^3/uL (1.0-4.8) Monocytes # (Auto) 0.5 x10^3/uL (0.0-1.1) Eosinophils # (Auto) 0.2 x10^3/uL (0.0-0.7) Basophils # (Auto) 0.1 x10^3/uL (0.0-0.2) Sodium Level 136 mmol/L (136-145) Potassium Level 3.9 mmol/L (3.5-5.1) Chloride Level 96 mmol/L (98-107) Carbon Dioxide Level 29 mmol/L (21-32) Anion Gap 11 (6-14) Blood Urea Nitrogen 41 mg/dL (7-20) Creatinine 5.9 mg/dL (0.6-1.0) Estimated GFR (Cockcroft-Gault) 7.0 Glucose Level 295 mg/dL (70-99) Calcium Level 8.4 mg/dL (8.5-10.1) Test 12/06/18 16:36 12/06/18 21:04 12/07/18 08:05 Glucose (Fingerstick) 150 mg/dL (70-99) 285 mg/dL (70-99) 231 mg/dL (70-99) Laboratory Tests Test 12/06/18 11:42 12/06/18 12:10 12/06/18 16:36 12/06/18 21:04 Glucose (Fingerstick) 286 mg/dL (70-99) 150 mg/dL (70-99) 285 mg/dL (70-99) White Blood Count 6.0 x10^3/uL (4.0-11.0) Red Blood Count 3.72 x10^6/uL (3.50-5.40) Hemoglobin 12.6 g/dL (12.0-15.5) Hematocrit 37.7 % (36.0-47.0) Mean Corpuscular Volume 102 fL (79-100) Mean Corpuscular Hemoglobin 34 pg (25-35) Mean Corpuscular Hemoglobin Concent 33 g/dL (31-37) Red Cell Distribution Width 16.2 % (11.5-14.5) Platelet Count 184 x10^3/uL (140-400) Neutrophils (%) (Auto) 61 % (31-73) Lymphocytes (%) (Auto) 27 % (24-48) Monocytes (%) (Auto) 9 % (0-9) Eosinophils (%) (Auto) 3 % (0-3) Basophils (%) (Auto) 1 % (0-3) Neutrophils # (Auto) 3.7 x10^3uL (1.8-7.7) Lymphocytes # (Auto) 1.6 x10^3/uL (1.0-4.8) Monocytes # (Auto) 0.5 x10^3/uL (0.0-1.1) Eosinophils # (Auto) 0.2 x10^3/uL (0.0-0.7) Basophils # (Auto) 0.1 x10^3/uL (0.0-0.2) Sodium Level 136 mmol/L (136-145) Potassium Level 3.9 mmol/L (3.5-5.1) Chloride Level 96 mmol/L (98-107) Carbon Dioxide Level 29 mmol/L (21-32) Anion Gap 11 (6-14) Blood Urea Nitrogen 41 mg/dL (7-20) Creatinine 5.9 mg/dL (0.6-1.0) Estimated GFR (Cockcroft-Gault) 7.0 Glucose Level 295 mg/dL (70-99) Calcium Level 8.4 mg/dL (8.5-10.1) Test 12/07/18 08:05 Glucose (Fingerstick) 231 mg/dL (70-99) Microbiology 12/05/18 Urine Culture - Final, Complete 12/05/18 Urine Culture Result 1 (SIL) - Final, Complete Medications Current Medications Ondansetron HCl (Zofran) 4 mg 1X ONCE IV Last administered on 12/05/18at 12:01; Start 12/05/18 at 11:30; Stop 12/05/18 at 11:31; Status DC Ceftriaxone Sodium (Rocephin) 1 gm 1X ONCE IVP Last administered on 12/05/18at 12:50; Start 12/05/18 at 12:30; Stop 12/05/18 at 12:31; Status DC Ondansetron HCl (Zofran) 4 mg PRN Q8HRS PRN IV NAUSEA/VOMITING; Start 12/05/18 at 13:00; Stop 12/05/18 at 13:09; Status DC Acetaminophen (Tylenol) 650 mg PRN Q4HRS PRN PO FEVER; Start 12/05/18 at 13:00; Stop 12/06/18 at 12:59; Status DC Insulin Human Lispro (HumaLOG) 0-5 UNITS TIDWMEALS SQ ; Start 12/05/18 at 17:00; Stop 12/05/18 at 17:00; Status DC Dextrose (Dextrose 50%-Water Syringe) 12.5 gm PRN Q15MIN PRN IV SEE COMMENTS; Start 12/05/18 at 13:00 Aspirin (Ecotrin) 81 mg DAILY08 PO Last administered on 12/06/18at 09:42; Start 12/05/18 at 15:30 Clopidogrel Bisulfate (Plavix) 75 mg DAILY PO Last administered on 12/06/18at 09 :42; Start 12/05/18 at 15:30 Estradiol (Estrace) 1 scotty 3X/WEEK VG ; Start 12/06/18 at 09:00 Insulin Glargine (Lantus) 6 units QHS SQ Last administered on 12/06/18at 21:30; Start 12/05/18 at 21:00 Calcium Acetate (Phoslo) 1,334 mg TIDWMEALS PO Last administered on 12/06/18at 17:24; Start 12/05/18 at 17:00 Insulin Human Lispro (HumaLOG) 6 units TIDWMEALS SQ Last administered on at 17:29; Start 12/05/18 at 17:00 Simvastatin (Zocor) 40 mg QHS PO Last administered on 12/06/18at 21:15; Start at 21:00 Ondansetron HCl (Zofran) 4 mg PRN Q6HRS PRN IV NAUSEA/VOMITING; Start 12/05/18 at 13:15 Piperacillin Sod/ Tazobactam Sod (Zosyn Per Pharmacy) 1 each PRN DAILY PRN MC SEE COMMENTS; Start 12/05/18 at 13:15; Stop 12/06/18 at 16:56; Status DC Insulin Human Lispro (HumaLOG) 0-9 UNITS TIDWMEALS SQ Last administered on 12/06at 11:50; Start 12/05/18 at 17:00 Dextrose (Dextrose 50%-Water Syringe) 12.5 gm PRN Q15MIN PRN IV SEE COMMENTS; Start 12/05/18 at 13:15; Status UNV Acetaminophen/ Hydrocodone Bitart (Lortab 5/325) 1 tab PRN Q4HRS PRN PO PAIN; Start 12/05/18 at 13:15 Piperacillin Sod/ Tazobactam Sod 2.25 gm/Sodium Chloride 50 ml @ 100 mls/hr Q8HRS IV Last administered on 12/06/18at 13:57; Start 12/05/18 at 15:30; Stop 06/16 at 16:56; Status DC Ceftriaxone Sodium (Rocephin) 1 gm Q24H IVP Last administered on 12/06/18at 21: 15; Start 12/06/18 at 21:00 Lactobacillus Rhamnosus (Culturelle) 1 cap BID PO Last administered on at 21:14; Start 12/06/18 at 21:00 Active Scripts Active Estrace (Estradiol) 42.5 Gm Cream.appl 1 Scotty VG 3X/WEEK 14 Days Reported Clopidogrel (Clopidogrel Bisulfate) 75 Mg Tablet 1 Tab PO DAILY Novolog (Insulin Aspart) 100 Unit/1 Ml Cartridge 6 Unit SQ TIDAC Lantus Solostar (Insulin Glargine,Hum.rec.anlog) 100 Unit/1 Ml Insuln.pen 6 Unit SQ QHS [regrenex] TOP DAILY PRN Calcium Acetate 667 Mg Tablet 2 Cap PO TIDAC Simvastatin 40 Mg Tablet 1 Tab PO QHS Last dose given: 08-20-14 9:00 p.m. Next dose due: tonight Aspir 81 (Aspirin) 81 Mg Tablet. 1 Tab PO DAILY08 Vitals/I & O Vital Sign - Last 24 Hours 12/06/18 12/06/18 12/06/18 12/06/18 11:00 15:00 19:20 20:20 Temp 98.0 97.7 98.1 98.0 97.7 98.1 Pulse 83 83 93 Resp 18 16 16 B/P (MAP) 112/44 (66) 129/55 (79) 135/56 (82) Pulse Ox 98 96 96 O2 Delivery Room Air Room Air Room Air Room Air 12/06/18 12/07/18 12/07/18 23:15 03:45 07:00 Temp 98.5 98.2 97.6 98.5 98.2 97.6 Pulse 78 82 81 Resp 16 16 16 B/P (MAP) 106/46 (66) 104/45 (64) 131/56 (81) Pulse Ox 95 93 98 O2 Delivery Room Air Room Air Room Air Intake and Output 12/06/18 12/06/18 12/07/18 14:59 22:59 06:59 Intake Total 240 ml 300 ml Balance 240 ml 300 ml FLORI DAVIES MD Dec 07, 2018 10:38
--- NOTE | 2018-12-07 12:29 | PDOC ---
SUBJECTIVE ROS No complaints, states ready to go home OBJECTIVE Vital Signs Vital Signs Date Time Temp Pulse Resp B/P (MAP) Pulse Ox O2 Delivery O2 Flow Rate FiO2 12/07/18 07:00 97.6 81 16 131/56 (81) 98 Room Air 97.6 12/06/18 08:00 2.0 I & 0 Intake and Output 12/07/18 07:00 Intake Total 540 ml Balance 540 ml Intake Oral 540 ml # Voids 5 PHYSICAL EXAM Physical Exam General: NAD HEENT: OM moist Lungs: Clear to auscultation Heart: RRR Cardiovascular: S1, S2 Abdomen: Normal bowel sounds, Soft, No tenderness, Extremities: No edema Skin: No rashes Neuro: Grossly normal Skin No Rash Vital Signs Vital Signs Date Time Temp Pulse Resp B/P (MAP) Pulse Ox O2 Delivery O2 Flow Rate FiO2 12/06/18 15:00 97.7 83 16 129/55 (79) 96 Room Air 97.7 12/06/18 08:00 2.0 DIAGNOSIS/ASSESSMENT Assessment & Plan ESRD - On HD TTS Seen on HD , tolerating well, continue as ordered 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 Complicated UTI- last urine culture 11/16/18 Escherichia coli Anemia - stable No Indication for BIJAN History of CABG DM 2 DW Pt and RN COMMENT/RELEVANT DATA Meds Current Medications Medications (Trade) Dose Ordered Sig/Claudette Start Time Stop Time Status Last Admin Dose Admin Acetaminophen (Tylenol) 650 mg PRN Q4HRS PRN 12/05/18 13:00 12/06/18 12:59 DC Acetaminophen/ Hydrocodone Bitart (Lortab 5/325) 1 tab PRN Q4HRS PRN 12/05/18 13:15 Aspirin (Ecotrin) 81 mg DAILY08 12/05/18 15:30 12/06/18 09:42 81 MG Calcium Acetate (Phoslo) 1,334 mg TIDWMEALS 12/05/18 17:00 12/06/18 17:24 1,334 MG Ceftriaxone Sodium (Rocephin) 1 gm Q24H 12/06/18 21:00 12/06/18 21:15 1 GM Clopidogrel Bisulfate (Plavix) 75 mg DAILY 12/05/18 15:30 12/06/18 09:42 75 MG Dextrose (Dextrose 50%-Water Syringe) 12.5 gm PRN Q15MIN PRN 12/05/18 13:15 UNV Estradiol (Estrace) 1 amy 3X/WEEK 12/06/18 09:00 Insulin Glargine (Lantus) 6 units QHS 12/05/18 21:00 12/06/18 21:30 6 UNITS Insulin Human Lispro (HumaLOG) 0-9 UNITS TIDWMEALS 12/05/18 17:00 12/06/18 11:50 7 UNITS Lactobacillus Rhamnosus (Culturelle) 1 cap BID 12/06/18 21:00 12/06/18 21:14 1 CAP Ondansetron HCl (Zofran) 4 mg PRN Q6HRS PRN 12/05/18 13:15 Piperacillin Sod/ Tazobactam Sod (Zosyn Per Pharmacy) 1 each PRN DAILY PRN 12/05/18 13:15 12/06/18 16:56 DC Piperacillin Sod/ Tazobactam Sod 2.25 gm/Sodium Chloride 50 ml @ 100 mls/hr Q8HRS 12/05/18 15:30 12/06/18 16:56 DC 12/06/18 13:57 100 MLS/HR Simvastatin (Zocor) 40 mg QHS 12/05/18 21:00 12/06/18 21:15 40 MG Lab Laboratory Tests Test 12/06/18 16:36 12/06/18 21:04 12/07/18 08:05 Glucose (Fingerstick) 150 mg/dL (70-99) 285 mg/dL (70-99) 231 mg/dL (70-99) Results All relevant outside records, renal labs, imaging studies, telemetry/EKG's were reviewed. LUCIO TORRES MD Dec 07, 2018 12:29
--- NOTE | 2018-12-07 13:00 | PDOC3 ---
Discharge Summary Date of Admission: Dec 05, 2018 Date of Discharge: Dec 07, 2018 Follow-Up: 1-2 days Admitting Diagnosis comment: History of Present Illness History of Present Illness DISCHARGE DX complicated UTI-last urine culture 11/16/18 Escherichia coli UTI sensitive to penicillin resistant to some ESRD on dialysis TTH S- Anemia of ESRD History of CABG CAD chronic stable/N STEMI Hypothyroidism on Synthroid replacement DM 2 low-dose insulin-sliding scale insulin urinary incontinence Plan: OBS STATUS Await urine culture NEG PT OT Dialysis per renal full code Urology as OP again Dr Vang re incontinence Vitals Vitals Vital Signs Date Time Temp Pulse Resp B/P (MAP) Pulse Ox O2 Delivery O2 Flow Rate FiO2 12/07/18 07:00 97.6 81 16 131/56 (81) 98 Room Air 97.6 12/06/18 08:00 2.0 Physical Exam General: Alert, Oriented X3, Cooperative, No acute distress Lungs: Clear Abdomen: Normal bowel sounds, Soft, No tenderness, No hepatosplenomegaly, No masses Extremities: No clubbing, No cyanosis, No edema, Normal pulses, No tenderness/ swelling Skin: No rashes, No breakdown, No significant lesion Labs LABS SPEC #: [id number] DORIS: 12/05/18 STATUS: COMP REQ #: [id number] RECD: 12/05/[address] [facility] [address]: HAWA SILVA DO SOURCE: VOID ENTR: 12/05/[address] [facility] [address]: LISA CALHOUN [facility]: ORDERED: URINE CULTURE Procedure Result URINE CULTURE Final Final report URINE CULTURE RES 1 Final No growth Performed at: - [facility] [place] [id number] [facility] [address], [place], [place] [id number] Sole Trimmer: RUBEN Moran MD, Phone: [phone] FINAL DIAGNOSIS Problems Medical Problems: (1) Generalized weakness Status: Acute (2) UTI (urinary tract infection) Status: Acute Brief Hospital Course Ms. Beach is a 78 old [sex] who presented with [ COMPLICATED UTI] CONDITION AT DISCHARGE: Improved Discharge Medications Current Medications Ondansetron HCl (Zofran) 4 mg 1X ONCE IV Last administered on 12/05/18at 12:01; Start 12/05/18 at 11:30; Stop 12/05/18 at 11:31; Status DC Ceftriaxone Sodium (Rocephin) 1 gm 1X ONCE IVP Last administered on 12/05/18at 12:50; Start 12/05/18 at 12:30; Stop 12/05/18 at 12:31; Status DC Ondansetron HCl (Zofran) 4 mg PRN Q8HRS PRN IV NAUSEA/VOMITING; Start 12/05/18 at 13:00; Stop 12/05/18 at 13:09; Status DC Acetaminophen (Tylenol) 650 mg PRN Q4HRS PRN PO FEVER; Start 12/05/18 at 13:00; Stop 12/06/18 at 12:59; Status DC Insulin Human Lispro (HumaLOG) 0-5 UNITS TIDWMEALS SQ ; Start 12/05/18 at 17:00; Stop 12/05/18 at 17:00; Status DC Dextrose (Dextrose 50%-Water Syringe) 12.5 gm PRN Q15MIN PRN IV SEE COMMENTS; Start 12/05/18 at 13:00 Aspirin (Ecotrin) 81 mg DAILY08 PO Last administered on 12/06/18at 09:42; Start 12/05/18 at 15:30 Clopidogrel Bisulfate (Plavix) 75 mg DAILY PO Last administered on 12/06/18at 09 :42; Start 12/05/18 at 15:30 Estradiol (Estrace) 1 scotty 3X/WEEK VG ; Start 12/06/18 at 09:00 Insulin Glargine (Lantus) 6 units QHS SQ Last administered on 12/06/18 21:30; Start 12/05/18 at 21:00 Calcium Acetate (Phoslo) 1,334 mg TIDWMEALS PO Last administered on 12/06/18at 17:24; Start 12/05/18 at 17:00 Insulin Human Lispro (HumaLOG) 6 units TIDWMEALS SQ Last administered on at 17:29; Start 12/05/18 at 17:00 Simvastatin (Zocor) 40 mg QHS PO Last administered on 12/06/18 21:15; Start at 21:00 Ondansetron HCl (Zofran) 4 mg PRN Q6HRS PRN IV NAUSEA/VOMITING; Start 12/05/18 at 13:15 Piperacillin Sod/ Tazobactam Sod (Zosyn Per Pharmacy) 1 each PRN DAILY PRN MC SEE COMMENTS; Start 12/05/18 at 13:15; Stop 12/06/18 at 16:56; Status DC Insulin Human Lispro (HumaLOG) 0-9 UNITS TIDWMEALS SQ Last administered on 12/06at 11:50; Start 12/05/18 at 17:00 Dextrose (Dextrose 50%-Water Syringe) 12.5 gm PRN Q15MIN PRN IV SEE COMMENTS; Start 12/05/18 at 13:15; Status UNV Acetaminophen/ Hydrocodone Bitart (Lortab 5/325) 1 tab PRN Q4HRS PRN PO PAIN; Start 12/05/18 at 13:15 Piperacillin Sod/ Tazobactam Sod 2.25 gm/Sodium Chloride 50 ml @ 100 mls/hr Q8HRS IV Last administered on 12/06/18at 13:57; Start 12/05/18 at 15:30; Stop 06/16 at 16:56; Status DC Ceftriaxone Sodium (Rocephin) 1 gm Q24H IVP Last administered on 12/06/18 21: 15; Start 12/06/18 at 21:00 Lactobacillus Rhamnosus (Culturelle) 1 cap BID PO Last administered on at 21:14; Start 12/06/18 at 21:00 Active Scripts Active Estrace (Estradiol) 42.5 Gm Cream.appl 1 Scotty VG 3X/WEEK 14 Days Reported Clopidogrel (Clopidogrel Bisulfate) 75 Mg Tablet 1 Tab PO DAILY Novolog (Insulin Aspart) 100 Unit/1 Ml Cartridge 6 Unit SQ TIDAC Lantus Solostar (Insulin Glargine,Hum.rec.anlog) 100 Unit/1 Ml Insuln.pen 6 Unit SQ QHS [regrenex] TOP DAILY PRN Calcium Acetate 667 Mg Tablet 2 Cap PO TIDAC Simvastatin 40 Mg Tablet 1 Tab PO QHS Last dose given: 08-20-14 9:00 p.m. Next dose due: tonight Aspir 81 (Aspirin) 81 Mg Tablet.dr 1 Tab PO DAILY08 Vital Signs Vital Signs Date Time Temp Pulse Resp B/P (MAP) Pulse Ox O2 Delivery O2 Flow Rate FiO2 12/07/18 08:00 Room Air 2.0 12/07/18 07:00 97.6 81 16 131/56 (81) 98 97.6 Labs Laboratory Tests Test 12/05/18 14:06 12/05/18 16:05 12/05/18 16:27 12/05/18 18:55 Glucose (Fingerstick) 148 mg/dL (70-99) 173 mg/dL (70-99) Troponin I Quantitative < 0.017 ng/mL (0.000-0.055) < 0.017 ng/mL (0.000-0.055) Test 12/05/18 18:56 12/05/18 20:10 12/06/18 07:35 12/06/18 11:42 Glucose (Fingerstick) 279 mg/dL (70-99) 184 mg/dL (70-99) 128 mg/dL (70-99) 286 mg/dL (70-99) Test 12/06/18 12:10 12/06/18 16:36 12/06/18 21:04 12/07/18 08:05 White Blood Count 6.0 x10^3/uL (4.0-11.0) Red Blood Count 3.72 x10^6/uL (3.50-5.40) Hemoglobin 12.6 g/dL (12.0-15.5) Hematocrit 37.7 % (36.0-47.0) Mean Corpuscular Volume 102 fL (79-100) Mean Corpuscular Hemoglobin 34 pg (25-35) Mean Corpuscular Hemoglobin Concent 33 g/dL (31-37) Red Cell Distribution Width 16.2 % (11.5-14.5) Platelet Count 184 x10^3/uL (140-400) Neutrophils (%) (Auto) 61 % (31-73) Lymphocytes (%) (Auto) 27 % (24-48) Monocytes (%) (Auto) 9 % (0-9) Eosinophils (%) (Auto) 3 % (0-3) Basophils (%) (Auto) 1 % (0-3) Neutrophils # (Auto) 3.7 x10^3uL (1.8-7.7) Lymphocytes # (Auto) 1.6 x10^3/uL (1.0-4.8) Monocytes # (Auto) 0.5 x10^3/uL (0.0-1.1) Eosinophils # (Auto) 0.2 x10^3/uL (0.0-0.7) Basophils # (Auto) 0.1 x10^3/uL (0.0-0.2) Sodium Level 136 mmol/L (136-145) Potassium Level 3.9 mmol/L (3.5-5.1) Chloride Level 96 mmol/L (98-107) Carbon Dioxide Level 29 mmol/L (21-32) Anion Gap 11 (6-14) Blood Urea Nitrogen 41 mg/dL (7-20) Creatinine 5.9 mg/dL (0.6-1.0) Estimated GFR (Cockcroft-Gault) 7.0 Glucose Level 295 mg/dL (70-99) Calcium Level 8.4 mg/dL (8.5-10.1) Glucose (Fingerstick) 150 mg/dL (70-99) 285 mg/dL (70-99) 231 mg/dL (70-99) Laboratory Tests Test 12/06/18 16:36 12/06/18 21:04 12/07/18 08:05 Glucose (Fingerstick) 150 mg/dL (70-99) 285 mg/dL (70-99) 231 mg/dL (70-99) Allergies Allergies Coded Allergies Type Severity Reaction Last Updated Verified latex Allergy Intermediate Rash 12/30/17 Yes Disposition/Orders: D/C to Home Patient Instructions D/C PLANNING 24 MIN FLORI DAVIES MD Dec 07, 2018 13:00
--- NOTE | 2018-12-07 13:03 | DISCH ---
DISCHARGE INSTRUCTIONS Condition on Discharge Condition on Discharge: Stable Activity After Discharge Activity Instructions for Disc: No restrictions, Resume previous activity, Activity as tolerated Bathing Instructions: Shower-keep dressing dry Lifting Instructions after Dis: No heavy lifting, No pulling or pushing, Do not lift >10 pounds Exercise Instruction after Dis: Walk 10 min, 3 x per day Driving Instructions after Dis: Do not drive today Weight Bearing Status after Di: As tolerated Diet after Discharge Diet after Discharge: Renal Dialysis Diet Texture: Regular Liquid Texture: Thin Liquid Swallowing Supervision: None needed Wound Incision Care Wound/Incision Care: Ice to area for comfort, Keep wound/cast CDI, Keep wound elevated, Do not change dressing Wound Care Equipment: Dressings Checks after Discharge Checks after discharge: Check blood press - daily, Check blood sugar, ac/hs Contacting the DR. after DC Call your doctor for: If your condition worsens Treatment/Equipment after DC Adaptive Equipment Issued: None FLORI DAVIES MD Dec 07, 2018 13:03
[2018-12-07 13:30] VITALS: BP 121/61
[2018-12-07] MEDS: ASPIRIN ENTERIC COATED 81 MG TABLET.DR. PO SCH (13:46)
[2018-12-07] MEDS: CLOPIDOGREL BISULFATE 75 MG TABLET PO SCH (13:46)
[2018-12-07 14:30] VITALS: BP 118/62
--- NOTE | 2018-12-07 15:16 | NUR ---
Discharge Note: BRYANT LOCKHART [address] [place] [address] Discharge instructions reviewed with Patient and a copy given. All questions have been answered and understanding verbalized. The following instructions and handouts were given: UTIs Discontinued lines and drains: 1 PIV removed with tip intact. Patient discharged to home with daughter to front via wheelchair.
== END 2018-12-07 15:10 | disposition home or self-care (01) | DRG 689 ==
LOC: ER 10:57 → 6 SOUTH 12:45
PROVIDERS: ADMIT Internal Medicine; ATTEND Internal Medicine
DX: N39.0 Urinary tract infection, site not specified (principal); N18.6 End stage renal disease; I12.0 Hypertensive chronic kidney disease with stage 5 chronic kidney disease or end stage renal disease; J98.11 Atelectasis; E11.22 Type 2 diabetes mellitus with diabetic chronic kidney disease; D63.1 Anemia in chronic kidney disease; E03.9 Hypothyroidism, unspecified; E78.00 Pure hypercholesterolemia, unspecified; E78.5 Hyperlipidemia, unspecified; I25.10 Atherosclerotic heart disease of native coronary artery without angina pectoris; R32 Unspecified urinary incontinence; E21.3 Hyperparathyroidism, unspecified; M19.90 Unspecified osteoarthritis, unspecified site; Z16.11 Resistance to penicillins; Z82.49 Family history of ischemic heart disease and other diseases of the circulatory system; Z95.1 Presence of aortocoronary bypass graft; Z99.2 Dependence on renal dialysis; Z91.040 Latex allergy status
CPT/HCPCS: 36415; 71046; 80048; 80053; 81001; 82553; 82962; 83690; 83735; 84484; 85025; 87086; 93005; 96374; 96375; J0696; J1815; J2405; J2543; 99285-25

== ENCOUNTER 2018-12-21 00:02 | Inpatient (IN) | payer MEDICARE ==
[~2018-12-21] VITALS: Ht 129.5 cm; Wt 61.7 kg
--- NOTE | 2018-12-21 00:28 | PHYS DOC ---
Past Medical History Past Medical History: Arthritis, Diabetes-Type II, High Cholesterol, Hypertension, Renal Disease, Renal Failure, UTI Additional Past Medical Histor: hyperkalemia, bladder retention, urinary stents (ESTELA SAHNI) Past Surgical History: Coronary Bypass Surgery Additional Past Surgical Histo: benign tumor removed from colon, bladder stent removed and reinserted, (ESTELA SAHNI) Alcohol Use: None Drug Use: None (ESTELA SAHNI) Adult General Chief Complaint Chief Complaint: MECHANICAL FALL HPI HPI Patient is a 78 year old F who reports that she recent was treated for a bunion on her L foot and she was placed in a post op shoe. She thinks she tripped over the shoe this morning around 1030 and started to fall and her tried to help her and fell on top of her. Pt states she has been resting most of the day and hasn't felt much discomfort but when she stands or walks she has pain in L hip/buttock area. The pain was increasing this evening so they called EMS to bring her in for evaluation. She denies hitting her head or LOC. She denies neck or back pain. (ESTELA SAHNI) Review of Systems Review of Systems Constitutional: Denies fever or chills Respiratory: Denies cough or shortness of breath Cardiovascular: Denies chest pain GI: Denies abdominal pain, nausea, vomiting, bloody stools or diarrhea : Denies dysuria or hematuria Musculoskeletal: Reports L hip pain. Integument: Reports L foot sore. Neurologic: Denies headache, focal weakness or sensory changes All other systems were reviewed and found to be within normal limits, except as documented in this note. (ESTELA SAHNI) Current Medications Current Medications Current Medications Medications (Trade) Dose Ordered Sig/Claudette Start Time Stop Time Status Last Admin Dose Admin Acetaminophen/ Hydrocodone Bitart (Lortab 5/325) 1 tab 1X ONCE 12/21/18 01:00 12/21/18 01:01 DC 12/21/18 01:00 1 TAB Fentanyl Citrate (Fentanyl 2ml Vial) 50 mcg 1X ONCE 12/21/18 02:30 12/21/18 02:31 DC 12/21/18 02:30 50 MCG (HAWA SILVA DO) Allergies Allergies Allergies Coded Allergies Type Severity Reaction Last Updated Verified latex Allergy Intermediate Rash 12/30/17 Yes (HAWA SILVA DO) Physical Exam Physical Exam Constitutional: Well developed, well nourished, no acute distress, non-toxic appearance. Neck: Normal range of motion, no tenderness, supple, no stridor. Cardiovascular:Heart rate regular rhythm, no murmur Lungs & Thorax: Bilateral breath sounds clear to auscultation Abdomen: Bowel sounds normal, soft, no tenderness, no masses, no pulsatile masses. Skin: Warm, dry, no erythema. Bandaged sore on L foot. Back: No tenderness, no CVA tenderness. Extremities: L hip and L buttock pain. Neurologic: Alert and oriented X 3, normal motor function, normal sensory function, no focal deficits noted. Psychologic: Affect normal, judgement normal, mood normal. (ESTELA SAHNI) Physical Exam Constitutional: Well developed, well nourished, uncomfortable, non-toxic appearance. Neck: Normal range of motion, no tenderness, supple Cardiovascular Heart rate regular rhythm, no murmur Lungs & Thorax: Bilateral breath sounds clear to auscultation Abdomen: Soft, no tenderness, pelvis tender to palpation on left, Does not appear unstable Skin: Warm, dry Back: No tenderness, no CVA tenderness. Extremities: Left hip pain on ROM, NO obvious deformity noted Neurologic: Alert and oriented X 3, normal motor function, normal sensory function, no focal deficits noted. Psychologic: Affect normal, judgement normal (HAWA SILVA DO) Current Patient Data Vital Signs Vital Signs Date Time Temp Pulse Resp B/P (MAP) Pulse Ox O2 Delivery O2 Flow Rate FiO2 12/21/18 03:10 114 94 12/21/18 02:30 Room Air 12/21/18 01:00 18 12/21/18 00:10 98.7 118/62 (80) 98.7 (HAWA SILVA DO) Lab Values Laboratory Tests Test 12/21/18 02:26 12/21/18 03:05 Prothrombin Time 13.6 SEC (11.7-14.0) Prothrombin Time INR 1.1 (0.8-1.1) PTT 31 SEC (24-38) Sodium Level 138 mmol/L (136-145) Potassium Level 4.1 mmol/L (3.5-5.1) Chloride Level 98 mmol/L (98-107) Carbon Dioxide Level 28 mmol/L (21-32) Anion Gap 12 (6-14) Blood Urea Nitrogen 41 mg/dL (7-20) H Creatinine 6.5 mg/dL (0.6-1.0) H Estimated GFR (Cockcroft-Gault) 6.2 BUN/Creatinine Ratio 6 (6-20) Glucose Level 201 mg/dL (70-99) H Calcium Level 8.7 mg/dL (8.5-10.1) Magnesium Level 2.1 mg/dL (1.8-2.4) Total Bilirubin 0.4 mg/dL (0.2-1.0) Aspartate Amino Transferase (AST) 28 U/L (15-37) Alanine Aminotransferase (ALT) 33 U/L (14-59) Alkaline Phosphatase 166 U/L (46-116) H Total Protein 7.7 g/dL (6.4-8.2) Albumin 3.2 g/dL (3.4-5.0) L Albumin/Globulin Ratio 0.7 (1.0-1.7) L White Blood Count 9.4 x10^3/uL (4.0-11.0) Red Blood Count 3.46 x10^6/uL (3.50-5.40) L Hemoglobin 11.7 g/dL (12.0-15.5) L Hematocrit 34.8 % (36.0-47.0) L Mean Corpuscular Volume 100 fL (79-100) Mean Corpuscular Hemoglobin 34 pg (25-35) Mean Corpuscular Hemoglobin Concent 34 g/dL (31-37) Red Cell Distribution Width 15.1 % (11.5-14.5) H Platelet Count 126 x10^3/uL (140-400) L Neutrophils (%) (Auto) 67 % (31-73) Lymphocytes (%) (Auto) 25 % (24-48) Monocytes (%) (Auto) 7 % (0-9) Eosinophils (%) (Auto) 1 % (0-3) Basophils (%) (Auto) 1 % (0-3) Neutrophils # (Auto) 6.2 x10^3uL (1.8-7.7) Lymphocytes # (Auto) 2.3 x10^3/uL (1.0-4.8) Monocytes # (Auto) 0.6 x10^3/uL (0.0-1.1) Eosinophils # (Auto) 0.1 x10^3/uL (0.0-0.7) Basophils # (Auto) 0.1 x10^3/uL (0.0-0.2) Laboratory Tests 12/21/18 03:05 Laboratory Tests 12/21/18 02:26 (HAWA SILVA DO) Lab Values Laboratory Tests Test 12/21/18 02:26 12/21/18 03:05 Prothrombin Time 13.6 SEC (11.7-14.0) Prothrombin Time INR 1.1 (0.8-1.1) PTT 31 SEC (24-38) Sodium Level 138 mmol/L (136-145) Potassium Level 4.1 mmol/L (3.5-5.1) Chloride Level 98 mmol/L (98-107) Carbon Dioxide Level 28 mmol/L (21-32) Anion Gap 12 (6-14) Blood Urea Nitrogen 41 mg/dL (7-20) H Creatinine 6.5 mg/dL (0.6-1.0) H Estimated GFR (Cockcroft-Gault) 6.2 BUN/Creatinine Ratio 6 (6-20) Glucose Level 201 mg/dL (70-99) H Calcium Level 8.7 mg/dL (8.5-10.1) Magnesium Level 2.1 mg/dL (1.8-2.4) Total Bilirubin 0.4 mg/dL (0.2-1.0) Aspartate Amino Transferase (AST) 28 U/L (15-37) Alanine Aminotransferase (ALT) 33 U/L (14-59) Alkaline Phosphatase 166 U/L (46-116) H Total Protein 7.7 g/dL (6.4-8.2) Albumin 3.2 g/dL (3.4-5.0) L Albumin/Globulin Ratio 0.7 (1.0-1.7) L White Blood Count 9.4 x10^3/uL (4.0-11.0) Red Blood Count 3.46 x10^6/uL (3.50-5.40) L Hemoglobin 11.7 g/dL (12.0-15.5) L Hematocrit 34.8 % (36.0-47.0) L Mean Corpuscular Volume 100 fL (79-100) Mean Corpuscular Hemoglobin 34 pg (25-35) Mean Corpuscular Hemoglobin Concent 34 g/dL (31-37) Red Cell Distribution Width 15.1 % (11.5-14.5) H Platelet Count 126 x10^3/uL (140-400) L Neutrophils (%) (Auto) 67 % (31-73) Lymphocytes (%) (Auto) 25 % (24-48) Monocytes (%) (Auto) 7 % (0-9) Eosinophils (%) (Auto) 1 % (0-3) Basophils (%) (Auto) 1 % (0-3) Neutrophils # (Auto) 6.2 x10^3uL (1.8-7.7) Lymphocytes # (Auto) 2.3 x10^3/uL (1.0-4.8) Monocytes # (Auto) 0.6 x10^3/uL (0.0-1.1) Eosinophils # (Auto) 0.1 x10^3/uL (0.0-0.7) Basophils # (Auto) 0.1 x10^3/uL (0.0-0.2) Laboratory Tests 12/21/18 03:05 Laboratory Tests 12/21/18 02:26 (ESTELA SAHNI) EKG EKG [] (ESTELA SAHNI) Radiology/Procedures Radiology/Procedures [] (ESTELA SAHNI) Radiology/Procedures PROCEDURE: HIP LEFT 2V WITH PELVIS 2 view study of the left hip with AP view the pelvis Clinical indications: Recent fall. Left hip and buttock pain. FINDINGS: No acute fracture or dislocation or lytic process of the left hip is seen. Small bone infarct or enchondroma of the intertrochanteric area of the proximal femur is seen. No acute fracture or diastases or lytic process of the pelvic bones is seen. Calcified atheromatous disease of the iliac and femoral arteries is seen bilaterally. IMPRESSION: No acute fracture. Electronically signed by: Marino Rivera MD (12/21/2018 8:38 AM) [facility] PROCEDURE: CT PELVIS WO CONTRAST INDICATION: right sided numbness, visual changes, right leg weakness. Status post fall COMPARISON: November 16, 2018 TECHNIQUE: Axial CT images obtained through the pelvis without contrast. One or more of the following individualized dose reduction techniques were utilized for this examination: 1. Automated exposure control; 2. Adjustment of the mA and/or kV according to patient size; 3. Use of iterative reconstruction technique. FINDINGS: Severe calcific atherosclerosis. Repeat demonstration of some haziness to the fat adjacent to the right common femoral vessels. There is hematoma identified within the pelvis adjacent to the urinary bladder and asymmetric to the left adjacent to the pubic bone. This hematoma measures up to approximately 45 x 77 mm. Right-sided hydronephrosis and hydroureter is again visualized. Wall thickening of the urinary bladder. Distention of the left ureter partially seen. Colonic diverticulosis. Osseous demineralization. There is a fracture identified adjacent to the patient's hematoma with the fracture involving the left superior and inferior pubic ramus extending into the pubic bone anteriorly with mild displacement. Calcifications of the uterus. Patchy osseous demineralization IMPRESSION: 1. Acute appearing displaced fracture of the left side of the pelvis involving both the inferior and superior pubic ramus and extending near the region of the pubic symphysis. There is adjacent hematoma within the soft tissues. 2. Partial visualization of right-sided hydronephrosis and bilateral hydroureter again seen. 3. Wall thickening of the urinary bladder is again seen. Could be infectious in nature with other causes such as bladder wall mass not excluded. Electronically signed by: Leo Prado MD (12/21/2018 3:45 AM) [facility] (HAWA SILVA DO) Course & Med Decision Making Course & Med Decision Making Pertinent Labs and Imaging studies reviewed. (See chart for details) Pt's xrays pending. Pt signed over to Dr. Silva at 0100 on 12/21/18. (ESTELA SAHNI) Course & Med Decision Making 0100- Sign out received from Eboni YORK for patient s/p fall. Concern for possible hip/pelvis fracture. Patient pending imaging. XR without definitive fracture. Patient seen and evaluated by myself. Considerable pain on ROM. Pelvis painful. Labs obtained and posted to chart. CT pelvis obtained with findings consistent for superior and inferior pubic rami fractures. Pain addressed. Patient requiring admission for pain control. Discussed findings with Dr. Luke (ortho) regarding who is in agreement with consultation. Patient requiring admission for further evaluation and treatment. Discussed with Dr. Alvarado (hospitalist) who is in agreement with admit. Discussed findings and plan with patient, who acknowledges understanding and agreement. (HAWA SILVA DO) Dragon Disclaimer Dragon Disclaimer This electronic medical record was generated, in whole or in part, using a voice recognition dictation system. (ESTELA SAHNI) Departure Departure Impression: Primary Impression: Pelvis fracture Additional Impression: Intractable pain Disposition: ADMITTED INPATIENT Admitting Physician: Other (Jamie) (HAWA SILVA DO) Condition: STABLE Referrals: LISA CALHOUN (PCP) Attending Signature Attending Signature I have personally interviewed and examined the patient. All charts, labs, and imaging studies were reviewed. I agree with the PA/SSN/SSBN ASSISTANT NAVIGATOR's findings, exam, and plan. (HAWA SILVA DO) Problem Qualifiers Primary Impression: Pelvis fracture Encounter type: initial encounter Pelvic bone location: unspecified part of pelvis Fracture type: closed Fracture alignment: displaced Qualified Codes: S32.9XXA - Fracture of unspecified parts of lumbosacral spine and pelvis, initial encounter for closed fracture ESTELA SAHNI Dec 21, 2018 00:28 HAWA SILVA DO Dec 24, 2018 16:07
[2018-12-21] MEDS ORDERED: HYDROcodone/APAP 5/325MG 1 TAB TABLET PO ONE (01:00)
[2018-12-21] MEDS ORDERED: fentaNYL PF VIAL 100 MCG/2 ML VIAL IV ONE (02:30)
[2018-12-21 02:44] LABS: CALCIUM 8.7 mg/dL (8.5-10.1); CREATININE 6.5 mg/dL (0.6-1.0); GFR 6.2; POTASSIUM 4.1 mmol/L (3.5-5.1)
[2018-12-21 02:46] LABS: PROTHROMBIN TIME PATIENT 13.6 SEC (11.7-14.0)
[2018-12-21 02:50] LABS: ALBUMIN 3.2 g/dL (3.4-5.0); ALBUMIN/GLOBULIN RATIO 0.7 (1.0-1.7); MAGNESIUM 2.1 mg/dL (1.8-2.4); TOTAL BILIRUBIN 0.4 mg/dL (0.2-1.0); TOTAL PROTEIN 7.7 g/dL (6.4-8.2)
[2018-12-21 03:19] LABS: BASO # 0.1 x10^3/uL (0.0-0.2); BASO % 1 % (0-3); EOS # 0.1 x10^3/uL (0.0-0.7); EOS % 1 % (0-3); HEMATOCRIT 34.8 % (36.0-47.0); HEMOGLOBIN 11.7 g/dL (12.0-15.5); LYMPH # 2.3 x10^3/uL (1.0-4.8); LYMPH % 25 % (24-48); MEAN CORPUSCULAR HEMOGLOBIN 34 pg (25-35); MEAN CORPUSCULAR HGB CONC 34 g/dL (31-37); MEAN CORPUSCULAR VOLUME 100 fL (79-100); MONO # 0.6 x10^3/uL (0.0-1.1); MONO % 7 % (0-9); NEUT # 6.2 x10^3uL (1.8-7.7); NEUT % 67 % (31-73); PLATELET COUNT 126 x10^3/uL (140-400); RED BLOOD COUNT 3.46 x10^6/uL (3.50-5.40); RED CELL DISTRIBUTION WIDTH 15.1 % (11.5-14.5); WHITE BLOOD COUNT 9.4 x10^3/uL (4.0-11.0)
[2018-12-21] MEDS ORDERED: ONDANSETRON PF 4 MG/2 ML VIAL. IV ONE ×2 (03:30→04:00)
[2018-12-21] MEDS ORDERED: ONDANSETRON PF 4 MG/2 ML VIAL. IV PRN (03:30)
[2018-12-21] MEDS ORDERED: fentaNYL PF VIAL 100 MCG/2 ML VIAL IV PRN (03:30)
[2018-12-21] MEDS ORDERED: DEXTROSE 50% 25 GM / 50ML DISP.SYRIN. IV PRN (03:30)
--- NOTE | 2018-12-21 03:49 | RAD ---
INDICATION: right sided numbness, visual changes, right leg weakness. Status post fall COMPARISON: November 16, 2018 TECHNIQUE: Axial CT images obtained through the pelvis without contrast. One or more of the following individualized dose reduction techniques were utilized for this examination: 1. Automated exposure control; 2. Adjustment of the mA and/or kV according to patient size; 3. Use of iterative reconstruction technique. FINDINGS: Severe calcific atherosclerosis. Repeat demonstration of some haziness to the fat adjacent to the right common femoral vessels. There is hematoma identified within the pelvis adjacent to the urinary bladder and asymmetric to the left adjacent to the pubic bone. This hematoma measures up to approximately 45 x 77 mm. Right-sided hydronephrosis and hydroureter is again visualized. Wall thickening of the urinary bladder. Distention of the left ureter partially seen. Colonic diverticulosis. Osseous demineralization. There is a fracture identified adjacent to the patient's hematoma with the fracture involving the left superior and inferior pubic ramus extending into the pubic bone anteriorly with mild displacement. Calcifications of the uterus. Patchy osseous demineralization IMPRESSION: 1. Acute appearing displaced fracture of the left side of the pelvis involving both the inferior and superior pubic ramus and extending near the region of the pubic symphysis. There is adjacent hematoma within the soft tissues. 2. Partial visualization of right-sided hydronephrosis and bilateral hydroureter again seen. 3. Wall thickening of the urinary bladder is again seen. Could be infectious in nature with other causes such as bladder wall mass not excluded. Electronically signed by: Leo Prado MD (12/21/2018 3:45 AM) [id number]
[2018-12-21] MEDS ORDERED: FAMOTIDINE 20 MG/2 ML VIAL IVP ONE (04:00)
[2018-12-21 04:39] VITALS: BP 153/60
--- NOTE | 2018-12-21 04:45 | NUR ---
The patient, BRYANT LOCKHART, 78 y/o, F admitted by MYLES VANEGAS MD, was given written information regarding hospital policies, unit procedures and contact persons. Pt was accompanied by her who she lives with, vital signs are stable, and pain is 7/10 when she moves. Pt. has wound on left foot and is a current pt. of the wound clinic. Will continue to monitor.
[2018-12-21] MEDS ORDERED: AMOX1TAB11 PO (05:25)
[2018-12-21 07:00] VITALS: BP 124/54
[2018-12-21] MEDS: INSULIN LISPRO 300 UNITS/3 ML INSULN.PEN. SQ SCH ×3 (08:00→17:38)
[2018-12-21] MEDS ORDERED: IV NORMAL SALINE 1000ML BAG 1,000 ML IV PRN ×2 (08:24)
[2018-12-21] MEDS ORDERED: DIALYSIS PATIENT. MC PRN ×2 (08:30)
[2018-12-21] MEDS ORDERED: 0.9 % SODIUM CHLORIDE 10 ML DISP.SYRIN. IV PRN ×2 (08:30)
[2018-12-21] MEDS ORDERED: ALBUMIN HUMAN 25% 200 ML IV PRN (08:30)
--- NOTE | 2018-12-21 08:41 | RAD ---
2 view study of the left hip with AP view the pelvis Clinical indications: Recent fall. Left hip and buttock pain. FINDINGS: No acute fracture or dislocation or lytic process of the left hip is seen. Small bone infarct or enchondroma of the intertrochanteric area of the proximal femur is seen. No acute fracture or diastases or lytic process of the pelvic bones is seen. Calcified atheromatous disease of the iliac and femoral arteries is seen bilaterally. IMPRESSION: No acute fracture. Electronically signed by: Marino Rivera MD (12/21/2018 8:38 AM) [place] [id number]
[2018-12-21] MEDS ORDERED: VIT1TABL71 PO (10:14)
[2018-12-21] MEDS: FOLIC/VIT B COMP W-C (RENAL) TABLET. PO SCH (11:00)
[2018-12-21] MEDS: ASPIRIN ENTERIC COATED 81 MG TABLET.DR. PO SCH (11:00)
--- NOTE | 2018-12-21 11:40 | PDOC1 ---
History and Physical Date of Admission: Date of Admission DATE: 12/21/18 TIME: 11:30 Chief Complaint: Problems: (1) Weakness (2) Tibia/fibula fracture (3) Urinary incontinence (4) Sepsis (5) Moderate protein malnutrition (6) Dehydration, severe (7) Constipation (8) Nausea & vomiting (9) UTI (urinary tract infection) (10) TWYLA (acute kidney injury) (11) Neurogenic bladder (12) ARF (acute renal failure) (13) Acute renal failure (14) Hydronephrosis (15) Dizziness (16) UTI (urinary tract infection) (17) Acute on chronic renal failure (18) Shortness of breath (19) Complicated UTI (urinary tract infection) (20) Hyperkalemia (21) Chronic kidney disease, stage IV (severe) (22) UTI (lower urinary tract infection) (23) Hypotension (24) Weakness (25) ESRD (end stage renal disease) (26) Pyelonephritis (27) Generalized weakness (28) UTI (urinary tract infection) (29) Chronic renal failure (30) Intractable pain (31) Fracture of left inferior pubic ramus History of Present Illness: HPI: Miss eller is a middle-aged female well-known to my service who I've been caring for for years. We most recently placed on dialysis within the past 6 months recently she's been doing relatively well but apparently had a bunion removed in the past couple days. Patient states she's been having problems walking and tripped and fell Her try to grab her and he felt top of her. We did some imaging in the ER showing a pelvic fracture. She rates her symptoms at 9 out of 10 and she has associated weakness she tried taking some home meds but didn't seem to help describes as agonizing I discussed the case with ER physician were going to with patient consult orthopedics and ne phrology and urology. Noted that there is it and still finding of some thickened bladder wall and I'm concerned she could have another process occurring. Past Medical/Surgical History: PMH/PSH: End-stage renal disease on dialysis diabetes hypertension Allergies: Allergies: Coded Allergies: latex (Verified Allergy, Intermediate, Rash, 12/30/17) Family History: Family History: Hypertension Social History: Social Hisoty: She does not drink smoke or take drugs she is and retired Current Medications: Current Medications Current Medications Acetaminophen/ Hydrocodone Bitart (Lortab 5/325) 1 tab 1X ONCE PO Last administered on 12/21/18at 01:00; Start 12/21/18 at 01:00; Stop 12/21/18 at 01:0 1; Status DC Fentanyl Citrate (Fentanyl 2ml Vial) 50 mcg 1X ONCE IV Last administered on 12/21/18at 02:30; Start 12/21/18 at 02:30; Stop 12/21/18 at 02:31; Status DC Ondansetron HCl (Zofran) 4 mg 1X ONCE IV Last administered on 12/21/18at 02:59; Start 12/21/18 at 03:30; Stop 12/21/18 at 03:31; Status DC Ondansetron HCl (Zofran) 4 mg PRN Q8HRS PRN IV NAUSEA/VOMITING 1ST CHOICE; Start 12/21/18 at 03:30; Stop 12/22/18 at 03:29 Fentanyl Citrate (Fentanyl 2ml Vial) 25 mcg PRN Q2HRS PRN IV SEVERE PAIN; St art 12/21/18 at 03:30 Insulin Human Lispro (HumaLOG) 0-5 UNITS TIDWMEALS SQ ; Start 12/21/18 at 08:00 Dextrose (Dextrose 50%-Water Syringe) 12.5 gm PRN Q15MIN PRN IV SEE COMMENTS; Start 12/21/18 at 03:30 Famotidine (Pepcid Vial) 20 mg 1X ONCE IVP Last administered on 12/21/18at 04:16; Start 12/21/18 at 04:00; Stop 12/21/18 at 04:01; Status DC Ondansetron HCl (Zofran) 4 mg 1X ONCE IV Last administered on 12/21/18at 04:14; Start 12/21/18 at 04:00; Stop 12/21/18 at 04:01; Status DC Sodium Chloride 1,000 ml @ 1,000 mls/hr Q1H PRN IV hypotension; Start 12/21/18 at 08:24; Stop 12/21/18 at 14:23 Albumin Human 200 ml @ 200 mls/hr 1X PRN PRN IV Hypotension; Start 12/21/18 at 08:30; Stop 12/21/18 at 14:29 Sodium Chloride (Normal Saline Flush) 10 ml 1X PRN PRN IV AP catheter pack; Start 12/21/18 at 08:30; Stop 12/22/18 at 08:29 Sodium Chloride (Normal Saline Flush) 10 ml 1X PRN PRN IV COMFORT STATION SUPERVISOR catheter pack; Start 12/21/18 at 08:30; Stop 12/22/18 at 08:29 Sodium Chloride 1,000 ml @ 400 mls/hr Q2H30M PRN IV PATENCY; Start 12/21/18 at 08:24; Stop 12/21/18 at 20:23 Info (PHARMACY MONITORING -- do not chart) 1 each PRN DAILY PRN MC SEE COMMENTS ; Start 12/21/18 at 08:30; Status UNV Info (PHARMACY MONITORING -- do not chart) 1 each PRN DAILY PRN MC SEE COMMENTS; Start 12/21/18 at 08:30 Amoxicillin/ Clavulanate Potassium (Augmentin 875/ 125mg) 1 tab BID PO ; Start 12/21/18 at 21:00; Status Cancel Aspirin (Ecotrin) 81 mg DAILY08 PO ; Start 12/21/18 at 11:00 Insulin Glargine (Lantus) 6 units QHS SQ ; Start 12/21/18 at 21:00 Calcium Acetate (Phoslo) 1,334 mg TIDWMEALS PO ; Start 12/21/18 at 12:00 Vitamin B Complex/ Vitamin C (Funmi-Hannah) 1 tab DAILY PO ; Start 12/21/18 at 11:00 Amoxicillin/ Clavulanate Potassium (Augmentin 500/ 125mg) 1 tab Q24H PO ; Start 12/22/18 at 09:00 Active Scripts Active Estrace (Estradiol) 42.5 Gm Cream.appl 1 Scotty VG 3X/WEEK 14 Days Reported Funmi-Hannah Rx Tablet (Vit B Cmplx 3/Fa/Vit C/Biotin) 1 Each Tablet 1 Each PO DAILY Amox Tr-K Clv 875-125 Mg Tab (Amoxicillin/Potassium Clav) 1 Each Tablet 1 Tab PO BID Novolog (Insulin Aspart) 100 Unit/1 Ml Cartridge 6 Unit SQ TIDAC Lantus Solostar (Insulin Glargine,Hum.rec.anlog) 100 Unit/1 Ml Insuln.pen 6 Unit SQ QHS [regrenex] TOP DAILY PRN Calcium Acetate 667 Mg Tablet 2 Cap PO TIDAC Aspir 81 (Aspirin) 81 Mg Tablet. 1 Tab PO DAILY08 ROS: Review of Systems Review of System REVIEW OF SYSTEMS: GENERAL: Denies weakness SKIN: No bruising, hair changes or rashes. EYES: No blurred, double or loss of vision. NOSE AND THROAT: No history of nosebleeds, hoarseness or sore throat. HEART: No history of palpitations, chest pain or shortness of breath on exertion. LUNGS: Denies cough, hemoptysis, wheezing or shortness of breath. GASTROINTESTINAL: Denies changes in appetite, nausea, vomiting, diarrhea or constipation. GENITOURINARY: No history of frequency, urgency, hesitancy or nocturia. NEUROLOGIC: Denies history of numbness, tingling, tremor or weakness. PSYCHIATRIC: No history of panic, anxiety or depression. ENDOCRINE: No history of heat or cold intolerance, polyuria or polydipsia. EXTREMITIES: Denies muscle weakness, joint pain, pain on walking or stiffness. Physical Exam: Vital Signs: Vital Signs Date Time Temp Pulse Resp B/P (MAP) Pulse Ox O2 Delivery O2 Flow Rate FiO2 12/21/18 07:00 98.1 80 16 124/54 (77) 98 Room Air 98.1 Physcial Exam: GEN.: No apparent distress. Alert and oriented. HEENT: Head is normocephalic, atraumatic NECK: Supple, no JVD LUNGS: Clear to auscultation without rhonchi or wheezing HEART: RRR, S1, S2 present. Peripheral pulses intact ABDOMEN: Soft, nontender. Positive bowel sounds no organomegaly EXTREMITIES: Without any cyanosis, clubbing, or edema. Pedal pulses intact NEUROLOGIC: Normal speech, normal tone. A&O x 3 PSYCHIATRIC: Normal affect, normal mood. Stable SKIN: No ulcerations or rashes Labs: Labs: Laboratory Tests Test 12/21/18 02:26 12/21/18 03:05 12/21/18 07:50 Prothrombin Time 13.6 SEC (11.7-14.0) Prothromb Time International Ratio 1.1 (0.8-1.1) Activated Partial Thromboplast Time 31 SEC (24-38) Sodium Level 138 mmol/L (136-145) Potassium Level 4.1 mmol/L (3.5-5.1) Chloride Level 98 mmol/L (98-107) Carbon Dioxide Level 28 mmol/L (21-32) Anion Gap 12 (6-14) Blood Urea Nitrogen 41 mg/dL (7-20) Creatinine 6.5 mg/dL (0.6-1.0) Estimated GFR (Cockcroft-Gault) 6.2 BUN/Creatinine Ratio 6 (6-20) Glucose Level 201 mg/dL (70-99) Calcium Level 8.7 mg/dL (8.5-10.1) Magnesium Level 2.1 mg/dL (1.8-2.4) Total Bilirubin 0.4 mg/dL (0.2-1.0) Aspartate Amino Transf (AST/SGOT) 28 U/L (15-37) Alanine Aminotransferase (ALT/SGPT) 33 U/L (14-59) Alkaline Phosphatase 166 U/L (46-116) Total Protein 7.7 g/dL (6.4-8.2) Albumin 3.2 g/dL (3.4-5.0) Albumin/Globulin Ratio 0.7 (1.0-1.7) White Blood Count 9.4 x10^3/uL (4.0-11.0) Red Blood Count 3.46 x10^6/uL (3.50-5.40) Hemoglobin 11.7 g/dL (12.0-15.5) Hematocrit 34.8 % (36.0-47.0) Mean Corpuscular Volume 100 fL (79-100) Mean Corpuscular Hemoglobin 34 pg (25-35) Mean Corpuscular Hemoglobin Concent 34 g/dL (31-37) Red Cell Distribution Width 15.1 % (11.5-14.5) Platelet Count 126 x10^3/uL (140-400) Neutrophils (%) (Auto) 67 % (31-73) Lymphocytes (%) (Auto) 25 % (24-48) Monocytes (%) (Auto) 7 % (0-9) Eosinophils (%) (Auto) 1 % (0-3) Basophils (%) (Auto) 1 % (0-3) Neutrophils # (Auto) 6.2 x10^3uL (1.8-7.7) Lymphocytes # (Auto) 2.3 x10^3/uL (1.0-4.8) Monocytes # (Auto) 0.6 x10^3/uL (0.0-1.1) Eosinophils # (Auto) 0.1 x10^3/uL (0.0-0.7) Basophils # (Auto) 0.1 x10^3/uL (0.0-0.2) Glucose (Fingerstick) 163 mg/dL (70-99) Laboratory Tests Test 12/21/18 02:26 12/21/18 03:05 12/21/18 07:50 Prothrombin Time 13.6 SEC (11.7-14.0) Prothromb Time International Ratio 1.1 (0.8-1.1) Activated Partial Thromboplast Time 31 SEC (24-38) Sodium Level 138 mmol/L (136-145) Potassium Level 4.1 mmol/L (3.5-5.1) Chloride Level 98 mmol/L (98-107) Carbon Dioxide Level 28 mmol/L (21-32) Anion Gap 12 (6-14) Blood Urea Nitrogen 41 mg/dL (7-20) Creatinine 6.5 mg/dL (0.6-1.0) Estimated GFR (Cockcroft-Gault) 6.2 BUN/Creatinine Ratio 6 (6-20) Glucose Level 201 mg/dL (70-99) Calcium Level 8.7 mg/dL (8.5-10.1) Magnesium Level 2.1 mg/dL (1.8-2.4) Total Bilirubin 0.4 mg/dL (0.2-1.0) Aspartate Amino Transf (AST/SGOT) 28 U/L (15-37) Alanine Aminotransferase (ALT/SGPT) 33 U/L (14-59) Alkaline Phosphatase 166 U/L (46-116) Total Protein 7.7 g/dL (6.4-8.2) Albumin 3.2 g/dL (3.4-5.0) Albumin/Globulin Ratio 0.7 (1.0-1.7) White Blood Count 9.4 x10^3/uL (4.0-11.0) Red Blood Count 3.46 x10^6/uL (3.50-5.40) Hemoglobin 11.7 g/dL (12.0-15.5) Hematocrit 34.8 % (36.0-47.0) Mean Corpuscular Volume 100 fL (79-100) Mean Corpuscular Hemoglobin 34 pg (25-35) Mean Corpuscular Hemoglobin Concent 34 g/dL (31-37) Red Cell Distribution Width 15.1 % (11.5-14.5) Platelet Count 126 x10^3/uL (140-400) Neutrophils (%) (Auto) 67 % (31-73) Lymphocytes (%) (Auto) 25 % (24-48) Monocytes (%) (Auto) 7 % (0-9) Eosinophils (%) (Auto) 1 % (0-3) Basophils (%) (Auto) 1 % (0-3) Neutrophils # (Auto) 6.2 x10^3uL (1.8-7.7) Lymphocytes # (Auto) 2.3 x10^3/uL (1.0-4.8) Monocytes # (Auto) 0.6 x10^3/uL (0.0-1.1) Eosinophils # (Auto) 0.1 x10^3/uL (0.0-0.7) Basophils # (Auto) 0.1 x10^3/uL (0.0-0.2) Glucose (Fingerstick) 163 mg/dL (70-99) Images: Images 1. Acute appearing displaced fracture of the left side of the pelvis involving both the inferior and superior pubic ramus and extending near the region of the pubic symphysis. There is adjacent hematoma within the soft tissues. 2. Partial visualization of right-sided hydronephrosis and bilateral hydroureter again seen. 3. Wall thickening of the urinary bladder is again seen. Could be infectious in nature with other causes such as bladder wall mass not excluded. Assessment/Plan Assessment/Plan Pelvic fracture in an elderly female who is on dialysis with as still finding of abnormal bladder wall thickening patient is being admitted we'll consult orthopedics nephrology and urology continue her home medicines frequent labs DVT prophylaxis PTOT full code home meds penitentiary unit evaluation long-term prognosis guarded Total time 31 minutes NIDIA SQUIRES III DO Dec 21, 2018 11:40
--- NOTE | 2018-12-21 11:44 | PDOC2 ---
CONSULT Date of Consult Date of Consult DATE: 12/21/18 TIME: 11:40 Reason for Consult Reason for Consult: ESRD Referring Physician Referring Physician: TAVIA Identification/Chief Complaint Chief Complaint FALL AND LEFT HIP PAIN Source Source: Chart review History of Present Illness Reason for Visit: THIS IS A 78 YR OLD WITH ESRD ON TTS OP HD SCHEDULE. CAME IN AFTER A FALL AND LEFT HIP PAIN AND DX WITH LEFT SIDED PELVIS FX. SHE HAS ESRD DUE TO DM II, HTN AND HX OF CHRONIC HYDRONEPHROSIS FOR WHICH SHE HAS HAD MULTIPLE STENTS PLACED IN THE PAST. ALSO USED TO HAVE RECURRENT UTI BUT NONE IN THE PAST. LABS ARE C/W ESRD. SHE IS COMPLIANT WITH HER MEDS AND TX Past Medical History Cardiovascular: CAD, HTN, Hyperlipidemia GI: Other Heme/Onc: No pertinent hx Psych: No pertinent hx Rheumatologic: No pertinent hx Infectious disease: No pertinent hx Renal/: Chronic renal failure, UTI, Hematuria, Other Endocrine: Diabetes, Hyperparathyroidism Past Surgical History Past Surgical History: CABG, Cystoscopy, Other Family History Family History: Hypertension, Other Social History ALCOHOL: none Drugs: None Lives: with Family Current Medications Current Medications Current Medications Acetaminophen/ Hydrocodone Bitart (Lortab 5/325) 1 tab 1X ONCE PO Last administered on 12/21/18at 01:00; Start 12/21/18 at 01:00; Stop 12/21/18 at 01:01; Status DC Fentanyl Citrate (Fentanyl 2ml Vial) 50 mcg 1X ONCE IV Last administered on 12/21/18at 02:30; Start 12/21/18 at 02:30; Stop 12/21/18 at 02:31; Status DC Ondansetron HCl (Zofran) 4 mg 1X ONCE IV Last administered on 12/21/18at 02:59; Start 12/21/18 at 03:30; Stop 12/21/18 at 03:31; Status DC Ondansetron HCl (Zofran) 4 mg PRN Q8HRS PRN IV NAUSEA/VOMITING 1ST CHOICE; Start 12/21/18 at 03:30; Stop 12/22/18 at 03:29 Fentanyl Citrate (Fentanyl 2ml Vial) 25 mcg PRN Q2HRS PRN IV SEVERE PAIN; Start 12/21/18 at 03:30 Insulin Human Lispro (HumaLOG) 0-5 UNITS TIDWMEALS SQ ; Start 12/21/18 at 08:00 Dextrose (Dextrose 50%-Water Syringe) 12.5 gm PRN Q15MIN PRN IV SEE COMMENTS; Start 12/21/18 at 03:30 Famotidine (Pepcid Vial) 20 mg 1X ONCE IVP Last administered on 12/21/18at 04:16; Start 12/21/18 at 04:00; Stop 12/21/18 at 04:01; Status DC Ondansetron HCl (Zofran) 4 mg 1X ONCE IV Last administered on 12/21/18at 04:14; Start 12/21/18 at 04:00; Stop 12/21/18 at 04:01; Status DC Sodium Chloride 1,000 ml @ 1,000 mls/hr Q1H PRN IV hypotension; Start 12/21/18 at 08:24; Stop 12/21/18 at 14:23 Albumin Human 200 ml @ 200 mls/hr 1X PRN PRN IV Hypotension; Start 12/21/18 at 08:30; Stop 12/21/18 at 14:29 Sodium Chloride (Normal Saline Flush) 10 ml 1X PRN PRN IV AP catheter pack; Start 12/21/18 at 08:30; Stop 12/22/18 at 08:29 Sodium Chloride (Normal Saline Flush) 10 ml 1X PRN PRN IV STUDENT LIFE ADVISOR catheter pack; Start 12/21/18 at 08:30; Stop 12/22/18 at 08:29 Sodium Chloride 1,000 ml @ 400 mls/hr Q2H30M PRN IV PATENCY; Start 12/21/18 at 08:24; Stop 12/21/18 at 20:23 Info (PHARMACY MONITORING -- do not chart) 1 each PRN DAILY PRN MC SEE COMMENTS; Start 12/21/18 at 08:30; Status UNV Info (PHARMACY MONITORING -- do not chart) 1 each PRN DAILY PRN MC SEE COMMENTS; Start 12/21/18 at 08:30 Amoxicillin/ Clavulanate Potassium (Augmentin 875/ 125mg) 1 tab BID PO ; Start 12/21/18 at 21:00; Status Cancel Aspirin (Ecotrin) 81 mg DAILY08 PO ; Start 12/21/18 at 11:00 Insulin Glargine (Lantus) 6 units QHS SQ ; Start 12/21/18 at 21:00 Calcium Acetate (Phoslo) 1,334 mg TIDWMEALS PO ; Start 12/21/18 at 12:00 Vitamin B Complex/ Vitamin C (Funmi-Hannah) 1 tab DAILY PO ; Start 12/21/18 at 11:00 Amoxicillin/ Clavulanate Potassium (Augmentin 500/ 125mg) 1 tab Q24H PO ; Start 12/22/18 at 09:00 Active Scripts Active Estrace (Estradiol) 42.5 Gm Cream.appl 1 Scotty VG 3X/WEEK 14 Days Reported Funmi-Hannah Rx Tablet (Vit B Cmplx 3/Fa/Vit C/Biotin) 1 Each Tablet 1 Each PO DAILY Amox Tr-K Clv 875-125 Mg Tab (Amoxicillin/Potassium Clav) 1 Each Tablet 1 Tab PO BID Novolog (Insulin Aspart) 100 Unit/1 Ml Cartridge 6 Unit SQ TIDAC Lantus Solostar (Insulin Glargine,Hum.rec.anlog) 100 Unit/1 Ml Insuln.pen 6 Unit SQ QHS [regrenex] TOP DAILY PRN Calcium Acetate 667 Mg Tablet 2 Cap PO TIDAC Aspir 81 (Aspirin) 81 Mg Tablet. 1 Tab PO DAILY08 Allergies Allergies: Coded Allergies: latex (Verified Allergy, Intermediate, Rash, 12/30/17) ROS General: YES: Fatigue, Malaise PSYCHOLOGICAL ROS: YES: Anxiety Eyes: Yes Decreased vision HEENT: YES: Laura ALLERGY AND IMMUNOLOGY: YES: Seasonal Allergies Respiratory: YES: Cough Gastrointestinal: Yes Constipation Genitourinary: YES Other (ANURIA) Musculoskeletal: Yes Muscular Weakness, Yes Pain In: (LEFT HIP) Neurological: Yes Weakness Skin: Yes Dry Skin Physical Exam General: Alert, Oriented X3, Cooperative, No acute distress HEENT: Atraumatic, PERRLA Lungs: Clear to auscultation Heart: Regular rate Abdomen: Normal bowel sounds, Soft, No tenderness Extremities: No cyanosis Skin: No breakdown Neuro: Normal speech, Sensation intact Psych/Mental Status: Mental status NL, Mood NL MUSCULOSKELETAL: No joint tenderness, No deformity, No swelling Vitals VITALS Vital Signs Date Time Temp Pulse Resp B/P (MAP) Pulse Ox O2 Delivery O2 Flow Rate FiO2 12/21/18 07:00 98.1 80 16 124/54 (77) 98 Room Air 98.1 Labs Labs Laboratory Tests Test 12/21/18 02:26 12/21/18 03:05 4/25/19 07:50 Prothrombin Time 13.6 SEC (11.7-14.0) Prothromb Time International Ratio 1.1 (0.8-1.1) Activated Partial Thromboplast Time 31 SEC (24-38) Sodium Level 138 mmol/L (136-145) Potassium Level 4.1 mmol/L (3.5-5.1) Chloride Level 98 mmol/L (98-107) Carbon Dioxide Level 28 mmol/L (21-32) Anion Gap 12 (6-14) Blood Urea Nitrogen 41 mg/dL (7-20) Creatinine 6.5 mg/dL (0.6-1.0) Estimated GFR (Cockcroft-Gault) 6.2 BUN/Creatinine Ratio 6 (6-20) Glucose Level 201 mg/dL (70-99) Calcium Level 8.7 mg/dL (8.5-10.1) Magnesium Level 2.1 mg/dL (1.8-2.4) Total Bilirubin 0.4 mg/dL (0.2-1.0) Aspartate Amino Transf (AST/SGOT) 28 U/L (15-37) Alanine Aminotransferase (ALT/SGPT) 33 U/L (14-59) Alkaline Phosphatase 166 U/L (46-116) Total Protein 7.7 g/dL (6.4-8.2) Albumin 3.2 g/dL (3.4-5.0) Albumin/Globulin Ratio 0.7 (1.0-1.7) White Blood Count 9.4 x10^3/uL (4.0-11.0) Red Blood Count 3.46 x10^6/uL (3.50-5.40) Hemoglobin 11.7 g/dL (12.0-15.5) Hematocrit 34.8 % (36.0-47.0) Mean Corpuscular Volume 100 fL (79-100) Mean Corpuscular Hemoglobin 34 pg (25-35) Mean Corpuscular Hemoglobin Concent 34 g/dL (31-37) Red Cell Distribution Width 15.1 % (11.5-14.5) Platelet Count 126 x10^3/uL (140-400) Neutrophils (%) (Auto) 67 % (31-73) Lymphocytes (%) (Auto) 25 % (24-48) Monocytes (%) (Auto) 7 % (0-9) Eosinophils (%) (Auto) 1 % (0-3) Basophils (%) (Auto) 1 % (0-3) Neutrophils # (Auto) 6.2 x10^3uL (1.8-7.7) Lymphocytes # (Auto) 2.3 x10^3/uL (1.0-4.8) Monocytes # (Auto) 0.6 x10^3/uL (0.0-1.1) Eosinophils # (Auto) 0.1 x10^3/uL (0.0-0.7) Basophils # (Auto) 0.1 x10^3/uL (0.0-0.2) Glucose (Fingerstick) 163 mg/dL (70-99) Laboratory Tests Test 12/21/18 02:26 12/21/18 03:05 12/21/18 07:50 Prothrombin Time 13.6 SEC (11.7-14.0) Prothromb Time International Ratio 1.1 (0.8-1.1) Activated Partial Thromboplast Time 31 SEC (24-38) Sodium Level 138 mmol/L (136-145) Potassium Level 4.1 mmol/L (3.5-5.1) Chloride Level 98 mmol/L (98-107) Carbon Dioxide Level 28 mmol/L (21-32) Anion Gap 12 (6-14) Blood Urea Nitrogen 41 mg/dL (7-20) Creatinine 6.5 mg/dL (0.6-1.0) Estimated GFR (Cockcroft-Gault) 6.2 BUN/Creatinine Ratio 6 (6-20) Glucose Level 201 mg/dL (70-99) Calcium Level 8.7 mg/dL (8.5-10.1) Magnesium Level 2.1 mg/dL (1.8-2.4) Total Bilirubin 0.4 mg/dL (0.2-1.0) Aspartate Amino Transf (AST/SGOT) 28 U/L (15-37) Alanine Aminotransferase (ALT/SGPT) 33 U/L (14-59) Alkaline Phosphatase 166 U/L (46-116) Total Protein 7.7 g/dL (6.4-8.2) Albumin 3.2 g/dL (3.4-5.0) Albumin/Globulin Ratio 0.7 (1.0-1.7) White Blood Count 9.4 x10^3/uL (4.0-11.0) Red Blood Count 3.46 x10^6/uL (3.50-5.40) Hemoglobin 11.7 g/dL (12.0-15.5) Hematocrit 34.8 % (36.0-47.0) Mean Corpuscular Volume 100 fL (79-100) Mean Corpuscular Hemoglobin 34 pg (25-35) Mean Corpuscular Hemoglobin Concent 34 g/dL (31-37) Red Cell Distribution Width 15.1 % (11.5-14.5) Platelet Count 126 x10^3/uL (140-400) Neutrophils (%) (Auto) 67 % (31-73) Lymphocytes (%) (Auto) 25 % (24-48) Monocytes (%) (Auto) 7 % (0-9) Eosinophils (%) (Auto) 1 % (0-3) Basophils (%) (Auto) 1 % (0-3) Neutrophils # (Auto) 6.2 x10^3uL (1.8-7.7) Lymphocytes # (Auto) 2.3 x10^3/uL (1.0-4.8) Monocytes # (Auto) 0.6 x10^3/uL (0.0-1.1) Eosinophils # (Auto) 0.1 x10^3/uL (0.0-0.7) Basophils # (Auto) 0.1 x10^3/uL (0.0-0.2) Glucose (Fingerstick) 163 mg/dL (70-99) Images Images 1. Acute appearing displaced fracture of the left side of the pelvis involving both the inferior and superior pubic ramus and extending near the region of the pubic symphysis. There is adjacent hematoma within the soft tissues. 2. Partial visualization of right-sided hydronephrosis and bilateral hydroureter again seen. 3. Wall thickening of the urinary bladder is again seen. Could be infectious in nature with other causes such as bladder wall mass not excluded. Assessment/Plan Assessment/Plan IMP LEFT SIDED PELVIC FX ANEMIA DM II HTN ESRD-TTS PLAN ORTHO EVAL MAY NEED THERAPY SHE IS NOT ABLE TO WT BEAR HD TODAY UF TO DW WILL FOLLOW MELONIE GUAMAN MD Dec 21, 2018 11:44
[2018-12-21] MEDS: CALCIUM ACETATE 667 MG CAPSULE PO SCH ×2 (12:00→17:29)
[2018-12-21] MEDS: SEVELAMER CARBONATE 800 MG TABLET. PO SCH ×2 (12:00→17:29)
--- NOTE | 2018-12-21 12:30 | NUR ---
SW following for discharge planning. Discussed with RN, pt is from home with , dialysis T, TH, Sa. SW awaiting PT/OT notes for discharge recommendations, although RN advised pt does not want to go to SNU. Pt in dialysis today. SW will continue to follow.
--- NOTE | 2018-12-21 13:08 | PDOC2 ---
JEAN NAYAK SENIOR INFORMATICA ETL DEVELOPER 12/21/18 1308: UROLOGY CONSULT Date of Consult Date of Consult DATE: 12/21/18 TIME: 13:03 Identification/Chief Complaint Chief Complaint Abnormal CT findings Source Source: Caregiver, Chart review, Patient History of Present Illness Reason for Visit: This 78 year old female is well known to us. We have been consulted on her multiple times, as she has a history of UTI's, neurogenic bladder, kidney failure requiring dialysis, and hematuria. This time, she was was admitted through the ER after a fall for further evaluation. . She had a CT scan, and the CT revealed some bladder wall thickening. She denies any symptoms of dysuria, hematuria or foul urine odor. She does have what she believes is some yeast on her private area, however. She had just finished a course of antibiotics per her PCP and also denies flank or abd pain. She was last seen in our clinic by Dr. Vang on 08/25/18 and at that time he recommended a CTU with cystoscopy right afterwards. Records show that she did not end up getting the cystoscopy but did have a [facility] in which the bladder was thickened along the dome. Thre were also a few small hyp but she is open to having this scheduled now. Past Medical History Cardiovascular: CAD, HTN, Hyperlipidemia GI: Other Heme/Onc: No pertinent hx Psych: No pertinent hx Rheumatologic: No pertinent hx Infectious disease: No pertinent hx Renal/: Chronic renal failure, UTI, Hematuria, Other Endocrine: Diabetes, Hyperparathyroidism Past Surgical History Past Surgical History: CABG, Cystoscopy, Other Family History Family History: Hypertension, Other Social History ALCOHOL: none Drugs: None Lives: with Family Current Medications Current Medications Current Medications Acetaminophen/ Hydrocodone Bitart (Lortab 5/325) 1 tab 1X ONCE PO Last administered on 12/21/18at 01:00; Start 12/21/18 at 01:00; Stop 12/21/18 at 01:01; Status DC Albumin Human 200 ml @ 200 mls/hr 1X PRN PRN IV Hypotension; Start 12/21/18 at 08:30; Stop 12/21/18 at 14:29 Amoxicillin/ Clavulanate Potassium (Augmentin 500/ 125mg) 1 tab Q24H PO ; Start 12/22/18 at 09:00 Amoxicillin/ Clavulanate Potassium (Augmentin 875/ 125mg) 1 tab BID PO ; Start 12/21/18 at 21:00; Status Cancel Aspirin (Ecotrin) 81 mg DAILY08 PO ; Start 12/21/18 at 11:00 Calcium Acetate (Phoslo) 1,334 mg TIDWMEALS PO ; Start 12/21/18 at 12:00 Dextrose (Dextrose 50%-Water Syringe) 12.5 gm PRN Q15MIN PRN IV SEE COMMENTS; Start 12/21/18 at 03:30 Famotidine (Pepcid Vial) 20 mg 1X ONCE IVP Last administered on 12/21/18at 0 4:16; Start 12/21/18 at 04:00; Stop 12/21/18 at 04:01; Status DC Fentanyl Citrate (Fentanyl 2ml Vial) 25 mcg PRN Q2HRS PRN IV SEVERE PAIN; Start 12/21/18 at 03:30 Fentanyl Citrate (Fentanyl 2ml Vial) 50 mcg 1X ONCE IV Last administered on 12/21/18at 02:30; Start 12/21/18 at 02:30; Stop 12/21/18 at 02:31; Status DC Info (PHARMACY MONITORING -- do not chart) 1 each PRN DAILY PRN MC SEE COMMENTS; Start 12/21/18 at 08:30 Info (PHARMACY MONITORING -- do not chart) 1 each PRN DAILY PRN MC SEE COMMENTS; Start 12/21/18 at 08:30; Status UNV Insulin Glargine (Lantus) 6 units QHS SQ ; Start 12/21/18 at 21:00 Insulin Human Lispro (HumaLOG) 0-5 UNITS TIDWMEALS SQ ; Start 12/21/18 at 08:00 Ondansetron HCl (Zofran) 4 mg 1X ONCE IV Last administered on 12/21/18at 02:59; Start 12/21/18 at 03:30; Stop 12/21/18 at 03:31; Status DC Ondansetron HCl (Zofran) 4 mg 1X ONCE IV Last administered on 12/21/18at 04:14; Start 12/21/18 at 04:00; Stop 12/21/18 at 04:01; Status DC Ondansetron HCl (Zofran) 4 mg PRN Q8HRS PRN IV NAUSEA/VOMITING 1ST CHOICE; Start 12/21/18 at 03:30; Stop 12/22/18 at 03:29 Sevelamer Carbonate (Renvela) 1,600 mg TIDWMEALS PO ; Start 12/21/18 at 12:00 Sodium Chloride 1,000 ml @ 400 mls/hr Q2H30M PRN IV PATENCY; Start 12/21/18 at 08:24; Stop 12/21/18 at 20:23 Sodium Chloride 1,000 ml @ 1,000 mls/hr Q1H PRN IV hypotension; Start 12/21/18 at 08:24; Stop 12/21/18 at 14:23 Sodium Chloride (Normal Saline Flush) 10 ml 1X PRN PRN IV AP catheter pack; Start 12/21/18 at 08:30; Stop 12/22/18 at 08:29 Sodium Chloride (Normal Saline Flush) 10 ml 1X PRN PRN IV [employer] catheter pack; Start 12/21/18 at 08:30; Stop 12/22/18 at 08:29 Vitamin B Complex/ Vitamin C (Funmi-Hannah) 1 tab DAILY PO ; Start 12/21/18 at 11:00 Allergies Allergies: Coded Allergies: latex (Verified Allergy, Intermediate, Rash, 12/30/17) ROS Review Of Systems: CONSTITUTIONAL: No fever or chills EYES: No recent changes SKIN: See CARDIOVASCULAR: No chest pain, syncope, palpitations, or edema RESPIRATORY: No SOB or cough GASTROINTESTINAL: No nausea, vomiting or abdominal pain NEUROLOGICAL: No headaches or weakness ENDOCRINE: No cold or heat intolerance GENITOURINARY: No urgency or frequency of urination; yeast rash to perineum MUSCULOSKELETAL: + left leg pain after fall LYMPHATICS: No enlarged lymph nodes PSYCHIATRIC: No anxiety or depression Physical Exam Physical Exam: General: Pleasant, no acute distress, well groomed Eyes: conjunctiva anicteric, eyes full range of motion ENT: moist oral mucosa, normal dentition Neck: Trachea midline, no masses Respiratory: unlabored breathing, not using accessory muscles, Abdomen: nontender, nondistended, no hepatosplenomegaly, no masses Skin: + mild yeast to perineal area noted on exam. Psych: normal mood, affect. Alert oriented. Vitals VITALS Vital Signs Date Time Temp Pulse Resp B/P (MAP) Pulse Ox O2 Delivery O2 Flow Rate FiO2 12/21/18 07:00 98.1 80 16 124/54 (77) 98 Room Air 98.1 Labs Labs Laboratory Tests Test 12/21/18 02:26 12/21/18 03:05 12/21/18 07:50 Prothrombin Time 13.6 SEC (11.7-14.0) Prothromb Time International Ratio 1.1 (0.8-1.1) Activated Partial Thromboplast Time 31 SEC (24-38) Sodium Level 138 mmol/L (136-145) Potassium Level 4.1 mmol/L (3.5-5.1) Chloride Level 98 mmol/L (98-107) Carbon Dioxide Level 28 mmol/L (21-32) Anion Gap 12 (6-14) Blood Urea Nitrogen 41 mg/dL (7-20) Creatinine 6.5 mg/dL (0.6-1.0) Estimated GFR (Cockcroft-Gault) 6.2 BUN/Creatinine Ratio 6 (6-20) Glucose Level 201 mg/dL (70-99) Calcium Level 8.7 mg/dL (8.5-10.1) Magnesium Level 2.1 mg/dL (1.8-2.4) Total Bilirubin 0.4 mg/dL (0.2-1.0) Aspartate Amino Transf (AST/SGOT) 28 U/L (15-37) Alanine Aminotransferase (ALT/SGPT) 33 U/L (14-59) Alkaline Phosphatase 166 U/L (46-116) Total Protein 7.7 g/dL (6.4-8.2) Albumin 3.2 g/dL (3.4-5.0) Albumin/Globulin Ratio 0.7 (1.0-1.7) White Blood Count 9.4 x10^3/uL (4.0-11.0) Red Blood Count 3.46 x10^6/uL (3.50-5.40) Hemoglobin 11.7 g/dL (12.0-15.5) Hematocrit 34.8 % (36.0-47.0) Mean Corpuscular Volume 100 fL (79-100) Mean Corpuscular Hemoglobin 34 pg (25-35) Mean Corpuscular Hemoglobin Concent 34 g/dL (31-37) Red Cell Distribution Width 15.1 % (11.5-14.5) Platelet Count 126 x10^3/uL (140-400) Neutrophils (%) (Auto) 67 % (31-73) Lymphocytes (%) (Auto) 25 % (24-48) Monocytes (%) (Auto) 7 % (0-9) Eosinophils (%) (Auto) 1 % (0-3) Basophils (%) (Auto) 1 % (0-3) Neutrophils # (Auto) 6.2 x10^3uL (1.8-7.7) Lymphocytes # (Auto) 2.3 x10^3/uL (1.0-4.8) Monocytes # (Auto) 0.6 x10^3/uL (0.0-1.1) Eosinophils # (Auto) 0.1 x10^3/uL (0.0-0.7) Basophils # (Auto) 0.1 x10^3/uL (0.0-0.2) Glucose (Fingerstick) 163 mg/dL (70-99) Laboratory Tests Test 12/21/18 02:26 12/21/18 03:05 12/21/18 07:50 Prothrombin Time 13.6 SEC (11.7-14.0) Prothromb Time International Ratio 1.1 (0.8-1.1) Activated Partial Thromboplast Time 31 SEC (24-38) Sodium Level 138 mmol/L (136-145) Potassium Level 4.1 mmol/L (3.5-5.1) Chloride Level 98 mmol/L (98-107) Carbon Dioxide Level 28 mmol/L (21-32) Anion Gap 12 (6-14) Blood Urea Nitrogen 41 mg/dL (7-20) Creatinine 6.5 mg/dL (0.6-1.0) Estimated GFR (Cockcroft-Gault) 6.2 BUN/Creatinine Ratio 6 (6-20) Glucose Level 201 mg/dL (70-99) Calcium Level 8.7 mg/dL (8.5-10.1) Magnesium Level 2.1 mg/dL (1.8-2.4) Total Bilirubin 0.4 mg/dL (0.2-1.0) Aspartate Amino Transf (AST/SGOT) 28 U/L (15-37) Alanine Aminotransferase (ALT/SGPT) 33 U/L (14-59) Alkaline Phosphatase 166 U/L (46-116) Total Protein 7.7 g/dL (6.4-8.2) Albumin 3.2 g/dL (3.4-5.0) Albumin/Globulin Ratio 0.7 (1.0-1.7) White Blood Count 9.4 x10^3/uL (4.0-11.0) Red Blood Count 3.46 x10^6/uL (3.50-5.40) Hemoglobin 11.7 g/dL (12.0-15.5) Hematocrit 34.8 % (36.0-47.0) Mean Corpuscular Volume 100 fL (79-100) Mean Corpuscular Hemoglobin 34 pg (25-35) Mean Corpuscular Hemoglobin Concent 34 g/dL (31-37) Red Cell Distribution Width 15.1 % (11.5-14.5) Platelet Count 126 x10^3/uL (140-400) Neutrophils (%) (Auto) 67 % (31-73) Lymphocytes (%) (Auto) 25 % (24-48) Monocytes (%) (Auto) 7 % (0-9) Eosinophils (%) (Auto) 1 % (0-3) Basophils (%) (Auto) 1 % (0-3) Neutrophils # (Auto) 6.2 x10^3uL (1.8-7.7) Lymphocytes # (Auto) 2.3 x10^3/uL (1.0-4.8) Monocytes # (Auto) 0.6 x10^3/uL (0.0-1.1) Eosinophils # (Auto) 0.1 x10^3/uL (0.0-0.7) Basophils # (Auto) 0.1 x10^3/uL (0.0-0.2) Glucose (Fingerstick) 163 mg/dL (70-99) Images Images IMPRESSION: 1. Acute appearing displaced fracture of the left side of the pelvis involving both the inferior and superior pubic ramus and extending near the region of the pubic symphysis. There is adjacent hematoma within the soft tissues. 2. Partial visualization of right-sided hydronephrosis and bilateral hydroureter again seen. 3. Wall thickening of the urinary bladder is again seen. Could be infectious in nature with other causes such as bladder wall mass not excluded. Electronically signed by: Leo Prado MD (12/21/2018 3:45 AM) [facility] Assessment/Plan Assessment/Plan Yeast to perineum: nystatin powder BID A follow up appointment has been arranged for cystoscopy with Dr. Vang as an outpatient on 01/03/19 at [facility] location to further evaluate CT findings. BRAN BLAKELY MD 12/21/18 1549: UROLOGY CONSULT Assessment/Plan Assessment/Plan Agree with assessment and plan. Patient well known to our service. Needs outpatient followup for cystoscopy - scheduled. JEAN NAYAK APRN Dec 21, 2018 13:08 BRAN BLAKELY MD Dec 21, 2018 15:49
[2018-12-21] MEDS: HYDROcodone/APAP 5/325MG 1 TAB TABLET PO PRN ×2 (14:39→19:06)
[2018-12-21] MEDS: NYSTATIN TOPICAL POWDER 15GM BOTTLE. TP SCH ×2 (14:41→21:10)
[2018-12-21 15:00] VITALS: BP 106/46
--- NOTE | 2018-12-21 15:00 | NUR ---
Wound Care: Consult to wound care for left lateral diabetic ulcer, pt of wound clinic. Wound measured and pictured, see wound intervention. Wound cleansed with Dakins solution, skin prep applied to periwound area, wound covered with Iodoflex and Telfa bandage. Change every 3 days. JEMIMA Jensen informed of POC. Addendum: 12/21/18 at 1517 by ERYN SHAH RN extra wound dressings left at bedside.
--- NOTE | 2018-12-21 18:10 | PDOC ---
Provider Note Provider Note Patient examined, chart reviewed, x-rays reviewed, CT scan reviewed, reports reviewed. Minimally displaced left superior and possibly inferior pubic rami fractures. The patient may weight-bear as tolerated with a walker. Nonoperative treatment. Full consult to follow. LEE THOMAS MD Dec 21, 2018 18:10
[2018-12-21 19:30] VITALS: BP 98/49
[2018-12-21] MEDS ORDERED: AMOXICILLIN/K CLAV 875/125MG TABLET. PO SCH (21:00)
[2018-12-21] MEDS: INSULIN GLARGINE 300 UNITS/3 ML INSULN.PEN. SQ SCH (21:12)
[2018-12-21 23:27] VITALS: BP 108/40
[2018-12-22] VITALS (7 sets, daily range): BP systolic 83–101; BP diastolic 35–65
[2018-12-22 05:35] LABS: BASO % 0 % (0-3); EOS # 0.2 x10^3/uL (0.0-0.7); EOS % 2 % (0-3); HEMATOCRIT 29.8 % (36.0-47.0); LYMPH # 1.6 x10^3/uL (1.0-4.8); LYMPH % 16 % (24-48); MEAN CORPUSCULAR HEMOGLOBIN 34 pg (25-35); MEAN CORPUSCULAR HGB CONC 34 g/dL (31-37); MEAN CORPUSCULAR VOLUME 102 fL (79-100); MONO # 0.7 x10^3/uL (0.0-1.1); MONO % 7 % (0-9); NEUT # 7.4 x10^3uL (1.8-7.7); NEUT % 75 % (31-73); PLATELET COUNT 103 x10^3/uL (140-400); RED BLOOD COUNT 2.93 x10^6/uL (3.50-5.40); WHITE BLOOD COUNT 9.8 x10^3/uL (4.0-11.0)
[2018-12-22 05:45] LABS: CALCIUM 8.6 mg/dL (8.5-10.1); CREATININE 5.7 mg/dL (0.6-1.0); GFR 7.2
[2018-12-22 05:47] LABS: POTASSIUM 4.7 mmol/L (3.5-5.1)
[2018-12-22] MEDS: AMOXICILLIN/K CLAV 500/125MG TABLET. PO SCH (08:34)
[2018-12-22] MEDS: ASPIRIN ENTERIC COATED 81 MG TABLET.DR. PO SCH (08:35)
[2018-12-22] MEDS: HYDROcodone/APAP 5/325MG 1 TAB TABLET PO PRN ×3 (08:35→21:28)
[2018-12-22] MEDS: SEVELAMER CARBONATE 800 MG TABLET. PO SCH ×3 (08:35→17:13)
[2018-12-22] MEDS: CALCIUM ACETATE 667 MG CAPSULE PO SCH ×3 (08:35→17:13)
[2018-12-22] MEDS: FOLIC/VIT B COMP W-C (RENAL) TABLET. PO SCH (08:35)
[2018-12-22] MEDS: INSULIN LISPRO 300 UNITS/3 ML INSULN.PEN. SQ SCH ×3 (08:41→17:19)
[2018-12-22] MEDS: NYSTATIN TOPICAL POWDER 15GM BOTTLE. TP SCH ×2 (08:55→21:00)
--- NOTE | 2018-12-22 09:14 | PDOC ---
JEAN NAYAK SHAREBROKER 12/22/18 0913: SUBJECTIVE Subjective Pt having a lot of pain in her leg, not ready to go home because she is hurting. They just started nystatin this am so she still has the rash. Ok with getting a cystoscopy as an outpatient. OBJECTIVE Objective Physical Exam: General appearance: Alert and Oriented Head: Normocephalic, without obvious abnormality Eyes: conjunctivae/corneas clear. PERRL, EOM's intact. Fundi benign Back: negative, no CVA pain bilaterally Lungs Regular respirations, non labored breathing Abdomen: soft, non-tender. No masses, no organomegaly Pelvic: deferred Extremities: + pain in the left leg Vital Signs Vital Signs Date Time Temp Pulse Resp B/P (MAP) Pulse Ox O2 Delivery O2 Flow Rate FiO2 12/22/18 08:35 90 Room Air 12/22/18 03:12 98.6 93 18 98/42 (60) 90 Room Air 98.6 12/21/18 23:27 98.7 88 20 108/40 (62) 94 Room Air 98.7 12/21/18 20:10 Room Air 12/21/18 20:00 Room Air 12/21/18 19:30 98.2 82 18 98/49 (65) 95 Room Air 98.2 12/21/18 19:06 Room Air 12/21/18 16:42 96 12/21/18 15:00 97.9 85 16 106/46 (66) 96 Room Air 97.9 12/21/18 14:39 98 Room Air I & O Intake and Output 12/22/18 07:00 Intake Total 540 ml Balance 540 ml Intake Oral 540 ml # Voids 2 PHYSICAL EXAM Physical Exam Physical Exam: General appearance: Alert and Oriented Head: Normocephalic, without obvious abnormality Eyes: conjunctivae/corneas clear. PERRL, EOM's intact. Fundi benign Back: negative, no CVA pain bilaterally Lungs Regular respirations, non labored breathing Abdomen: soft, non-tender. No masses, no organomegaly Pelvic: deferred Extremities: + pain in the left leg ASSESSMENT/PLAN Assessment/Plan A follow up appointment has been arranged for cystoscopy with Dr. Vang as an outpatient on 01/03/19 at [facility] location to further evaluate CT findings. Pt given appointment card and a copy of her last Urochart note by Dr. Vang with his recommendations for cysto. All questions answered Continue nystatin BID, recommend a full 7 days at least Continue Hiprex BID at discharge for UTI prevention. Will sign off at this time, but please call with questions or changes in patient condition. COMMENT Lab Laboratory Tests Test 12/21/18 16:43 12/21/18 21:09 12/22/18 04:55 12/22/18 07:50 Glucose (Fingerstick) 210 mg/dL (70-99) 176 mg/dL (70-99) 192 mg/dL (70-99) White Blood Count 9.8 x10^3/uL (4.0-11.0) Red Blood Count 2.93 x10^6/uL (3.50-5.40) Hemoglobin 10.0 g/dL (12.0-15.5) Hematocrit 29.8 % (36.0-47.0) Mean Corpuscular Volume 102 fL (79-100) Mean Corpuscular Hemoglobin 34 pg (25-35) Mean Corpuscular Hemoglobin Concent 34 g/dL (31-37) Red Cell Distribution Width 15.0 % (11.5-14.5) Platelet Count 103 x10^3/uL (140-400) Neutrophils (%) (Auto) 75 % (31-73) Lymphocytes (%) (Auto) 16 % (24-48) Monocytes (%) (Auto) 7 % (0-9) Eosinophils (%) (Auto) 2 % (0-3) Basophils (%) (Auto) 0 % (0-3) Neutrophils # (Auto) 7.4 x10^3uL (1.8-7.7) Lymphocytes # (Auto) 1.6 x10^3/uL (1.0-4.8) Monocytes # (Auto) 0.7 x10^3/uL (0.0-1.1) Eosinophils # (Auto) 0.2 x10^3/uL (0.0-0.7) Basophils # (Auto) 0.0 x10^3/uL (0.0-0.2) Sodium Level 131 mmol/L (136-145) Potassium Level 4.7 mmol/L (3.5-5.1) Chloride Level 96 mmol/L (98-107) Carbon Dioxide Level 25 mmol/L (21-32) Anion Gap 10 (6-14) Blood Urea Nitrogen 33 mg/dL (7-20) Creatinine 5.7 mg/dL (0.6-1.0) Estimated GFR (Cockcroft-Gault) 7.2 Glucose Level 219 mg/dL (70-99) Calcium Level 8.6 mg/dL (8.5-10.1) BRAN BLAKELY MD 12/23/18 1353: ASSESSMENT/PLAN Assessment/Plan Agree with assessment and plan. JEAN NAYAK SHAREBROKER Dec 22, 2018 09:13 BRAN BLAKELY MD Dec 23, 2018 13:53
--- NOTE | 2018-12-22 11:13 | PDOC ---
Renal-Progress Notes Subjective Notes Notes NOT SURE IF SHE CAN WT BEAR, WAITING FOR THERAPY TO HELP HER THIS AM History of Present Illness Hx of present illness STABLE Vitals Vitals Vital Signs Date Time Temp Pulse Resp B/P (MAP) Pulse Ox O2 Delivery O2 Flow Rate FiO2 12/22/18 10:18 90 Room Air 12/22/18 07:00 97.9 88 18 101/64 (76) 97.9 Weight Weight [ ] I.O. Intake and Output Intake and Output 12/22/18 07:00 Intake Total 540 ml Balance 540 ml Intake Oral 540 ml # Voids 2 Labs Labs Laboratory Tests Test 12/21/18 16:43 12/21/18 21:09 12/22/18 04:55 12/22/18 07:50 Glucose (Fingerstick) 210 mg/dL (70-99) 176 mg/dL (70-99) 192 mg/dL (70-99) White Blood Count 9.8 x10^3/uL (4.0-11.0) Red Blood Count 2.93 x10^6/uL (3.50-5.40) Hemoglobin 10.0 g/dL (12.0-15.5) Hematocrit 29.8 % (36.0-47.0) Mean Corpuscular Volume 102 fL (79-100) Mean Corpuscular Hemoglobin 34 pg (25-35) Mean Corpuscular Hemoglobin Concent 34 g/dL (31-37) Red Cell Distribution Width 15.0 % (11.5-14.5) Platelet Count 103 x10^3/uL (140-400) Neutrophils (%) (Auto) 75 % (31-73) Lymphocytes (%) (Auto) 16 % (24-48) Monocytes (%) (Auto) 7 % (0-9) Eosinophils (%) (Auto) 2 % (0-3) Basophils (%) (Auto) 0 % (0-3) Neutrophils # (Auto) 7.4 x10^3uL (1.8-7.7) Lymphocytes # (Auto) 1.6 x10^3/uL (1.0-4.8) Monocytes # (Auto) 0.7 x10^3/uL (0.0-1.1) Eosinophils # (Auto) 0.2 x10^3/uL (0.0-0.7) Basophils # (Auto) 0.0 x10^3/uL (0.0-0.2) Sodium Level 131 mmol/L (136-145) Potassium Level 4.7 mmol/L (3.5-5.1) Chloride Level 96 mmol/L (98-107) Carbon Dioxide Level 25 mmol/L (21-32) Anion Gap 10 (6-14) Blood Urea Nitrogen 33 mg/dL (7-20) Creatinine 5.7 mg/dL (0.6-1.0) Estimated GFR (Cockcroft-Gault) 7.2 Glucose Level 219 mg/dL (70-99) Calcium Level 8.6 mg/dL (8.5-10.1) Review of Systems Constitutional: yes: alert, oriented Ears/Nose/Throat: Yes: no symptom reported Eyes: Yes: no symptom reported Pulmonary: Yes no symptom reported Cardiovascular: Yes no symptom reported Gastrointestional: Yes: constipation Genitourinary: Yes: frequency Musculoskeletal: Yes: leg pain, muscle stiffness Skin: Yes no symptom reported Psychiatric/Neurological: Yes: no symptom reported Endocrine: Yes: no symptom reported Hematologic/Lymphatic: Yes: no symptom reported Physical Exam General Appearance: no apparent distress Skin: warm Respiratory: bilateral CTA Heart: S1S2 Abdomen: soft, bowel sounds present Genitourinary: bladder flat Extremities: pulses present Neurology: alert Assessment Assessment IMP LEFT SIDED PELVIC FX ANEMIA DM II HTN ESRD-TTS PLAN HD TOMORROW THERAPY TO EVALUATE AND TX PT WILL FOLLOW MELONIE GUAMAN MD Dec 22, 2018 11:13
--- NOTE | 2018-12-22 12:04 | PDOC ---
PROGRESS NOTES Chief Complaint Chief Complaint fall, L pelvic fx History of Present Illness History of Present Illness Patient resting in bed with at bedside. She has not been up to attempt weight bearing yet. She states her daughter will be home tomorrow to help take care of her, does not feel that she can discharge prior to her arrival. Vitals Vitals Vital Signs Date Time Temp Pulse Resp B/P (MAP) Pulse Ox O2 Delivery O2 Flow Rate FiO2 12/22/18 10:18 90 Room Air 12/22/18 07:00 97.9 88 18 101/64 (76) 97.9 Physical Exam General: Alert, Oriented X3, Cooperative, No acute distress Heart: Regular rate Lungs: Clear Abdomen: Normal bowel sounds, Soft, No tenderness Extremities: No cyanosis Skin: No breakdown Labs LABS Laboratory Tests Test 12/21/18 16:43 12/21/18 21:09 12/22/18 04:55 12/22/18 07:50 Glucose (Fingerstick) 210 mg/dL (70-99) 176 mg/dL (70-99) 192 mg/dL (70-99) White Blood Count 9.8 x10^3/uL (4.0-11.0) Red Blood Count 2.93 x10^6/uL (3.50-5.40) Hemoglobin 10.0 g/dL (12.0-15.5) Hematocrit 29.8 % (36.0-47.0) Mean Corpuscular Volume 102 fL (79-100) Mean Corpuscular Hemoglobin 34 pg (25-35) Mean Corpuscular Hemoglobin Concent 34 g/dL (31-37) Red Cell Distribution Width 15.0 % (11.5-14.5) Platelet Count 103 x10^3/uL (140-400) Neutrophils (%) (Auto) 75 % (31-73) Lymphocytes (%) (Auto) 16 % (24-48) Monocytes (%) (Auto) 7 % (0-9) Eosinophils (%) (Auto) 2 % (0-3) Basophils (%) (Auto) 0 % (0-3) Neutrophils # (Auto) 7.4 x10^3uL (1.8-7.7) Lymphocytes # (Auto) 1.6 x10^3/uL (1.0-4.8) Monocytes # (Auto) 0.7 x10^3/uL (0.0-1.1) Eosinophils # (Auto) 0.2 x10^3/uL (0.0-0.7) Basophils # (Auto) 0.0 x10^3/uL (0.0-0.2) Sodium Level 131 mmol/L (136-145) Potassium Level 4.7 mmol/L (3.5-5.1) Chloride Level 96 mmol/L (98-107) Carbon Dioxide Level 25 mmol/L (21-32) Anion Gap 10 (6-14) Blood Urea Nitrogen 33 mg/dL (7-20) Creatinine 5.7 mg/dL (0.6-1.0) Estimated GFR (Cockcroft-Gault) 7.2 Glucose Level 219 mg/dL (70-99) Calcium Level 8.6 mg/dL (8.5-10.1) Review of Systems Review of Systems pain, rash in groin Assessment and Plan Assessmemt and Plan Assessment: L inferior and superior pubic ramus fracture, displaced Urinary bladder wall thickening, seen on CT ESRD on HD Diabetes Mellitus, Insulin dependent Anemia Thrombocytopenia Hyponatremia Yeast infection, perineum Hypertension, history of Coronary artery disease s/p CABG, history of Chronic foot wound, left Malnutrition, mild - albumin 3.2 Plan: Ortho: non-operative, weight bear as tolerated with walker Neph: last HD 12/21, plan for HD tomorrow Uro: signed off Nystatin powder BID x7 days for yeast to perineum (day 1/7) Outpatient cystoscopy scheduled with Dr. Vang 01/03/19 Hiprex BID at discharge for UTI prevention Antibiotics: Augmentin (12/22- ) Recheck labs in am Pain management PT/OT Home meds DVT ppx: Heparin 5000 U q12 hrs Appreciate specialty recs Dispo: probable discharge home tomorrow. Comment Review of Relevant I have reviewed the following items anastasiya (where applicable) has been applied. Labs Laboratory Tests Test 12/21/18 02:26 12/21/18 03:05 12/21/18 07:50 12/21/18 16:43 Prothrombin Time 13.6 SEC (11.7-14.0) Prothromb Time International Ratio 1.1 (0.8-1.1) Activated Partial Thromboplast Time 31 SEC (24-38) Sodium Level 138 mmol/L (136-145) Potassium Level 4.1 mmol/L (3.5-5.1) Chloride Level 98 mmol/L (98-107) Carbon Dioxide Level 28 mmol/L (21-32) Anion Gap 12 (6-14) Blood Urea Nitrogen 41 mg/dL (7-20) Creatinine 6.5 mg/dL (0.6-1.0) Estimated GFR (Cockcroft-Gault) 6.2 BUN/Creatinine Ratio 6 (6-20) Glucose Level 201 mg/dL (70-99) Calcium Level 8.7 mg/dL (8.5-10.1) Magnesium Level 2.1 mg/dL (1.8-2.4) Total Bilirubin 0.4 mg/dL (0.2-1.0) Aspartate Amino Transf (AST/SGOT) 28 U/L (15-37) Alanine Aminotransferase (ALT/SGPT) 33 U/L (14-59) Alkaline Phosphatase 166 U/L (46-116) Total Protein 7.7 g/dL (6.4-8.2) Albumin 3.2 g/dL (3.4-5.0) Albumin/Globulin Ratio 0.7 (1.0-1.7) White Blood Count 9.4 x10^3/uL (4.0-11.0) Red Blood Count 3.46 x10^6/uL (3.50-5.40) Hemoglobin 11.7 g/dL (12.0-15.5) Hematocrit 34.8 % (36.0-47.0) Mean Corpuscular Volume 100 fL (79-100) Mean Corpuscular Hemoglobin 34 pg (25-35) Mean Corpuscular Hemoglobin Concent 34 g/dL (31-37) Red Cell Distribution Width 15.1 % (11.5-14.5) Platelet Count 126 x10^3/uL (140-400) Neutrophils (%) (Auto) 67 % (31-73) Lymphocytes (%) (Auto) 25 % (24-48) Monocytes (%) (Auto) 7 % (0-9) Eosinophils (%) (Auto) 1 % (0-3) Basophils (%) (Auto) 1 % (0-3) Neutrophils # (Auto) 6.2 x10^3uL (1.8-7.7) Lymphocytes # (Auto) 2.3 x10^3/uL (1.0-4.8) Monocytes # (Auto) 0.6 x10^3/uL (0.0-1.1) Eosinophils # (Auto) 0.1 x10^3/uL (0.0-0.7) Basophils # (Auto) 0.1 x10^3/uL (0.0-0.2) Glucose (Fingerstick) 163 mg/dL (70-99) 210 mg/dL (70-99) Test 12/21/18 21:09 12/22/18 04:55 12/22/18 07:50 Glucose (Fingerstick) 176 mg/dL (70-99) 192 mg/dL (70-99) White Blood Count 9.8 x10^3/uL (4.0-11.0) Red Blood Count 2.93 x10^6/uL (3.50-5.40) Hemoglobin 10.0 g/dL (12.0-15.5) Hematocrit 29.8 % (36.0-47.0) Mean Corpuscular Volume 102 fL (79-100) Mean Corpuscular Hemoglobin 34 pg (25-35) Mean Corpuscular Hemoglobin Concent 34 g/dL (31-37) Red Cell Distribution Width 15.0 % (11.5-14.5) Platelet Count 103 x10^3/uL (140-400) Neutrophils (%) (Auto) 75 % (31-73) Lymphocytes (%) (Auto) 16 % (24-48) Monocytes (%) (Auto) 7 % (0-9) Eosinophils (%) (Auto) 2 % (0-3) Basophils (%) (Auto) 0 % (0-3) Neutrophils # (Auto) 7.4 x10^3uL (1.8-7.7) Lymphocytes # (Auto) 1.6 x10^3/uL (1.0-4.8) Monocytes # (Auto) 0.7 x10^3/uL (0.0-1.1) Eosinophils # (Auto) 0.2 x10^3/uL (0.0-0.7) Basophils # (Auto) 0.0 x10^3/uL (0.0-0.2) Sodium Level 131 mmol/L (136-145) Potassium Level 4.7 mmol/L (3.5-5.1) Chloride Level 96 mmol/L (98-107) Carbon Dioxide Level 25 mmol/L (21-32) Anion Gap 10 (6-14) Blood Urea Nitrogen 33 mg/dL (7-20) Creatinine 5.7 mg/dL (0.6-1.0) Estimated GFR (Cockcroft-Gault) 7.2 Glucose Level 219 mg/dL (70-99) Calcium Level 8.6 mg/dL (8.5-10.1) Laboratory Tests Test 12/21/18 16:43 12/21/18 21:09 12/22/18 04:55 12/22/18 07:50 Glucose (Fingerstick) 210 mg/dL (70-99) 176 mg/dL (70-99) 192 mg/dL (70-99) White Blood Count 9.8 x10^3/uL (4.0-11.0) Red Blood Count 2.93 x10^6/uL (3.50-5.40) Hemoglobin 10.0 g/dL (12.0-15.5) Hematocrit 29.8 % (36.0-47.0) Mean Corpuscular Volume 102 fL (79-100) Mean Corpuscular Hemoglobin 34 pg (25-35) Mean Corpuscular Hemoglobin Concent 34 g/dL (31-37) Red Cell Distribution Width 15.0 % (11.5-14.5) Platelet Count 103 x10^3/uL (140-400) Neutrophils (%) (Auto) 75 % (31-73) Lymphocytes (%) (Auto) 16 % (24-48) Monocytes (%) (Auto) 7 % (0-9) Eosinophils (%) (Auto) 2 % (0-3) Basophils (%) (Auto) 0 % (0-3) Neutrophils # (Auto) 7.4 x10^3uL (1.8-7.7) Lymphocytes # (Auto) 1.6 x10^3/uL (1.0-4.8) Monocytes # (Auto) 0.7 x10^3/uL (0.0-1.1) Eosinophils # (Auto) 0.2 x10^3/uL (0.0-0.7) Basophils # (Auto) 0.0 x10^3/uL (0.0-0.2) Sodium Level 131 mmol/L (136-145) Potassium Level 4.7 mmol/L (3.5-5.1) Chloride Level 96 mmol/L (98-107) Carbon Dioxide Level 25 mmol/L (21-32) Anion Gap 10 (6-14) Blood Urea Nitrogen 33 mg/dL (7-20) Creatinine 5.7 mg/dL (0.6-1.0) Estimated GFR (Cockcroft-Gault) 7.2 Glucose Level 219 mg/dL (70-99) Calcium Level 8.6 mg/dL (8.5-10.1) Medications Current Medications Acetaminophen/ Hydrocodone Bitart (Lortab 5/325) 1 tab 1X ONCE PO Last admin istered on 12/21/18at 01:00; Start 12/21/18 at 01:00; Stop 12/21/18 at 01:01; Status DC Fentanyl Citrate (Fentanyl 2ml Vial) 50 mcg 1X ONCE IV Last administered on 12/21/18at 02:30; Start 12/21/18 at 02:30; Stop 12/21/18 at 02:31; Status DC Ondansetron HCl (Zofran) 4 mg 1X ONCE IV Last administered on 12/21/18at 02:59; Start 12/21/18 at 03:30; Stop 12/21/18 at 03:31; Status DC Ondansetron HCl (Zofran) 4 mg PRN Q8HRS PRN IV NAUSEA/VOMITING 1ST CHOICE; Start 12/21/18 at 03:30; Stop 12/22/18 at 03:29; Status DC Fentanyl Citrate (Fentanyl 2ml Vial) 25 mcg PRN Q2HRS PRN IV SEVERE PAIN; Start 12/21/18 at 03:30 Insulin Human Lispro (HumaLOG) 0-5 UNITS TIDWMEALS SQ Last administered on 12/22/18at 08:41; Start 12/21/18 at 08:00 Dextrose (Dextrose 50%-Water Syringe) 12.5 gm PRN Q15MIN PRN IV SEE COMMENTS; Start 12/21/18 at 03:30 Famotidine (Pepcid Vial) 20 mg 1X ONCE IVP Last administered on 12/21/18at 04:16; Start 12/21/18 at 04:00; Stop 12/21/18 at 04:01; Status DC Ondansetron HCl (Zofran) 4 mg 1X ONCE IV Last administered on 12/21/18at 04:14; Start 12/21/18 at 04:00; Stop 12/21/18 at 04:01; Status DC Sodium Chloride 1,000 ml @ 1,000 mls/hr Q1H PRN IV hypotension; Start 12/21/18 at 08:24; Stop 12/21/18 at 14:23; Status DC Albumin Human 200 ml @ 200 mls/hr 1X PRN PRN IV Hypotension; Start 12/21/18 at 08:30; Stop 12/21/18 at 14:29; Status DC Sodium Chloride (Normal Saline Flush) 10 ml 1X PRN PRN IV AP catheter pack; Start 12/21/18 at 08:30; Stop 12/22/18 at 08:29; Status DC Sodium Chloride (Normal Saline Flush) 10 ml 1X PRN PRN IV PETROGRAPHER catheter pack; Start 12/21/18 at 08:30; Stop 12/22/18 at 08:29; Status DC Sodium Chloride 1,000 ml @ 400 mls/hr Q2H30M PRN IV PATENCY; Start 12/21/18 at 08:24; Stop 12/21/18 at 20:23; Status DC Info (PHARMACY MONITORING -- do not chart) 1 each PRN DAILY PRN MC SEE COMMENTS; Start 12/21/18 at 08:30; Status UNV Info (PHARMACY MONITORING -- do not chart) 1 each PRN DAILY PRN MC SEE COMMENTS; Start 12/21/18 at 08:30 Amoxicillin/ Clavulanate Potassium (Augmentin 875/ 125mg) 1 tab BID PO ; Start 12/21/18 at 21:00; Status Cancel Aspirin (Ecotrin) 81 mg DAILY08 PO Last administered on 12/22/18at 08:35; Start 12/21/18 at 11:00 Insulin Glargine (Lantus) 6 units QHS SQ Last administered on 12/21/18at 21:12; Start 12/21/18 at 21:00 Calcium Acetate (Phoslo) 1,334 mg TIDWMEALS PO Last administered on 12/22/18at 08:35; Start 12/21/18 at 12:00 Vitamin B Complex/ Vitamin C (Funmi-Hannah) 1 tab DAILY PO Last administered on 12/22/18 08:35; Start 12/21/18 at 11:00 Amoxicillin/ Clavulanate Potassium (Augmentin 500/ 125mg) 1 tab Q24H PO Last administered on 12/22/18at 08:34; Start 12/22/18 at 09:00 Sevelamer Carbonate (Renvela) 1,600 mg TIDWMEALS PO Last administered on 12/22/18 08:35; Start 12/21/18 at 12:00 Nystatin (Nystop) 1 scotty BID TP Last administered on 12/22/18 08:55; Start 12/21/18 at 14:00 Acetaminophen/ Hydrocodone Bitart (Lortab 5/325) 1 tab PRN Q4HRS PRN PO MODERATE PAIN Last administered on 12/22/18 08:35; Start 12/21/18 at 14:30 Heparin Sodium (Porcine) (Heparin Sodium) 5,000 unit Q12HR SQ ; Start 12/22/18 at 11:00 Active Scripts Active Estrace (Estradiol) 42.5 Gm Cream.appl 1 Scotty VG 3X/WEEK 14 Days Reported Funmi-Hannah Rx Tablet (Vit B Cmplx 3/Fa/Vit C/Biotin) 1 Each Tablet 1 Each PO DAILY Amox Tr-K Clv 875-125 Mg Tab (Amoxicillin/Potassium Clav) 1 Each Tablet 1 Tab PO BID Novolog (Insulin Aspart) 100 Unit/1 Ml Cartridge 6 Unit SQ TIDAC Lantus Solostar (Insulin Glargine,Hum.rec.anlog) 100 Unit/1 Ml Insuln.pen 6 Unit SQ QHS [regrenex] TOP DAILY PRN Calcium Acetate 667 Mg Tablet 2 Cap PO TIDAC Aspir 81 (Aspirin) 81 Mg Tablet. 1 Tab PO DAILY08 Vitals/I & O Vital Sign - Last 24 Hours 12/21/18 12/21/18 12/21/18 12/21/18 14:39 15:00 19:06 19:30 Temp 97.9 98.2 97.9 98.2 Pulse 85 82 Resp 16 18 B/P (MAP) 106/46 (66) 98/49 (65) Pulse Ox 98 96 95 O2 Delivery Room Air Room Air Room Air Room Air 12/21/18 12/21/18 12/22/18 12/22/18 20:00 23:27 03:12 07:00 Temp 98.7 98.6 97.9 98.7 98.6 97.9 Pulse 88 93 88 Resp 20 18 18 B/P (MAP) 108/40 (62) 98/42 (60) 101/64 (76) Pulse Ox 94 90 97 O2 Delivery Room Air Room Air Room Air Room Air 12/22/18 12/22/18 08:35 10:18 Pulse Ox 90 90 O2 Delivery Room Air Room Air Intake and Output 12/21/18 12/21/18 12/22/18 14:59 22:59 06:59 Intake Total 540 ml Balance 540 ml NIDIA SQUIRES III DO Dec 22, 2018 12:04
[2018-12-22] MEDS: HEPARIN for SUB-Q USE 5,000 UNIT/ML VIAL. SQ SCH ×2 (12:44→21:31)
[2018-12-22] MEDS ORDERED: DOCUSATE SODIUM 100 MG CAPSULE. PO PRN (13:00)
--- NOTE | 2018-12-22 15:14 | NUR ---
SW following for discharge planning. Discussed with RN, pt is from home with . PT recommending SNU. SW met with pt to discuss discharge planning, pt declining SNU and home health. Pt reports her helps to take care of her and so does her daughter. RN notified. No further SW needs.
[2018-12-22] MEDS ORDERED: NYSTATIN 100,000 UNIT/GM TOPICAL CREAM 15GM TUBE. TP PRN (18:15)
[2018-12-22] MEDS: INSULIN GLARGINE 300 UNITS/3 ML INSULN.PEN. SQ SCH (21:00)
[2018-12-22] MEDS ORDERED: IV NORMAL SALINE 500ML BAG 500 ML IV ONE (21:00)
[2018-12-22] MEDS: LACTOBACILLUS RHAMNOSUS GG 1 CAPSULE. PO SCH (21:27)
[2018-12-23 03:34] VITALS: BP 93/32
[2018-12-23 06:21] LABS: BASO % 1 % (0-3); EOS # 0.2 x10^3/uL (0.0-0.7); EOS % 2 % (0-3); HEMATOCRIT 29.8 % (36.0-47.0); HEMOGLOBIN 9.8 g/dL (12.0-15.5); LYMPH # 1.5 x10^3/uL (1.0-4.8); LYMPH % 17 % (24-48); MEAN CORPUSCULAR HEMOGLOBIN 34 pg (25-35); MEAN CORPUSCULAR HGB CONC 33 g/dL (31-37); MEAN CORPUSCULAR VOLUME 102 fL (79-100); MONO # 0.7 x10^3/uL (0.0-1.1); MONO % 8 % (0-9); NEUT # 6.4 x10^3uL (1.8-7.7); NEUT % 73 % (31-73); PLATELET COUNT 123 x10^3/uL (140-400); RED BLOOD COUNT 2.93 x10^6/uL (3.50-5.40); RED CELL DISTRIBUTION WIDTH 15.4 % (11.5-14.5); WHITE BLOOD COUNT 8.8 x10^3/uL (4.0-11.0)
[2018-12-23 06:46] LABS: CALCIUM 8.9 mg/dL (8.5-10.1); CREATININE 8.3 mg/dL (0.6-1.0); GFR 4.7; POTASSIUM 5.1 mmol/L (3.5-5.1)
[2018-12-23 07:00] VITALS: BP 100/38
[2018-12-23] MEDS: INSULIN LISPRO 300 UNITS/3 ML INSULN.PEN. SQ SCH ×3 (07:36→16:30)
[2018-12-23] MEDS: NYSTATIN TOPICAL POWDER 15GM BOTTLE. TP SCH ×2 (09:00→21:00)
[2018-12-23] MEDS ORDERED: DIALYSIS PATIENT. MC PRN ×2 (10:30)
--- NOTE | 2018-12-23 11:02 | PDOC ---
Dialysis Progress Note Dialysis Note Dialysis Note Seen on Hemodialysis, tolerating treatment Okay so far Vitals on Hemodialysis: 91/46 103 afeb General Appearance: Asleep Neck: No JVD or JVP Chest: CTA [place] Heart: S1 S2, tachy Abdomen - Soft NTND Extremities - No Edema ESRD: Dialysis as below F 180 NR 3.15 Hrs 2 K 2.5 Ca 140 Na 35 HC03 Qb 350 + Qd 500+ Heparin 0 Units Uf 0 Kgs (patient is required 500 mL normal saline to maintain blood pressure on dialysis.) We may administer some more to keep her stable May give 25-50 gms of 25% Albumin if needed to maintain Hemodynamic stability Treatment plan reviewed and discussed with student union consultant Vitals Vital Signs Vital Signs Date Time Temp Pulse Resp B/P (MAP) Pulse Ox O2 Delivery O2 Flow Rate FiO2 12/23/18 07:00 98.8 67 18 100/38 (58) 90 Room Air 98.8 Labs Last Labs Laboratory Tests Test 12/21/18 16:43 12/21/18 21:09 12/22/18 04:55 12/22/18 07:50 Glucose (Fingerstick) 210 mg/dL (70-99) 176 mg/dL (70-99) 192 mg/dL (70-99) White Blood Count 9.8 x10^3/uL (4.0-11.0) Red Blood Count 2.93 x10^6/uL (3.50-5.40) Hemoglobin 10.0 g/dL (12.0-15.5) Hematocrit 29.8 % (36.0-47.0) Mean Corpuscular Volume 102 fL (79-100) Mean Corpuscular Hemoglobin 34 pg (25-35) Mean Corpuscular Hemoglobin Concent 34 g/dL (31-37) Red Cell Distribution Width 15.0 % (11.5-14.5) Platelet Count 103 x10^3/uL (140-400) Neutrophils (%) (Auto) 75 % (31-73) Lymphocytes (%) (Auto) 16 % (24-48) Monocytes (%) (Auto) 7 % (0-9) Eosinophils (%) (Auto) 2 % (0-3) Basophils (%) (Auto) 0 % (0-3) Neutrophils # (Auto) 7.4 x10^3uL (1.8-7.7) Lymphocytes # (Auto) 1.6 x10^3/uL (1.0-4.8) Monocytes # (Auto) 0.7 x10^3/uL (0.0-1.1) Eosinophils # (Auto) 0.2 x10^3/uL (0.0-0.7) Basophils # (Auto) 0.0 x10^3/uL (0.0-0.2) Sodium Level 131 mmol/L (136-145) Potassium Level 4.7 mmol/L (3.5-5.1) Chloride Level 96 mmol/L (98-107) Carbon Dioxide Level 25 mmol/L (21-32) Anion Gap 10 (6-14) Blood Urea Nitrogen 33 mg/dL (7-20) Creatinine 5.7 mg/dL (0.6-1.0) Estimated GFR (Cockcroft-Gault) 7.2 Glucose Level 219 mg/dL (70-99) Calcium Level 8.6 mg/dL (8.5-10.1) Test 12/22/18 11:50 12/22/18 16:07 12/22/18 21:14 12/23/18 05:35 Glucose (Fingerstick) 168 mg/dL (70-99) 229 mg/dL (70-99) 134 mg/dL (70-99) White Blood Count 8.8 x10^3/uL (4.0-11.0) Red Blood Count 2.93 x10^6/uL (3.50-5.40) Hemoglobin 9.8 g/dL (12.0-15.5) Hematocrit 29.8 % (36.0-47.0) Mean Corpuscular Volume 102 fL (79-100) Mean Corpuscular Hemoglobin 34 pg (25-35) Mean Corpuscular Hemoglobin Concent 33 g/dL (31-37) Red Cell Distribution Width 15.4 % (11.5-14.5) Platelet Count 123 x10^3/uL (140-400) Neutrophils (%) (Auto) 73 % (31-73) Lymphocytes (%) (Auto) 17 % (24-48) Monocytes (%) (Auto) 8 % (0-9) Eosinophils (%) (Auto) 2 % (0-3) Basophils (%) (Auto) 1 % (0-3) Neutrophils # (Auto) 6.4 x10^3uL (1.8-7.7) Lymphocytes # (Auto) 1.5 x10^3/uL (1.0-4.8) Monocytes # (Auto) 0.7 x10^3/uL (0.0-1.1) Eosinophils # (Auto) 0.2 x10^3/uL (0.0-0.7) Basophils # (Auto) 0.0 x10^3/uL (0.0-0.2) Sodium Level 134 mmol/L (136-145) Potassium Level 5.1 mmol/L (3.5-5.1) Chloride Level 95 mmol/L (98-107) Carbon Dioxide Level 27 mmol/L (21-32) Anion Gap 12 (6-14) Blood Urea Nitrogen 47 mg/dL (7-20) Creatinine 8.3 mg/dL (0.6-1.0) Estimated GFR (Cockcroft-Gault) 4.7 Glucose Level 204 mg/dL (70-99) Calcium Level 8.9 mg/dL (8.5-10.1) Test 12/23/18 07:21 12/23/18 08:19 Glucose (Fingerstick) 223 mg/dL (70-99) 191 mg/dL (70-99) Laboratory Tests Test 12/22/18 11:50 12/22/18 16:07 12/22/18 21:14 12/23/18 05:35 Glucose (Fingerstick) 168 mg/dL (70-99) 229 mg/dL (70-99) 134 mg/dL (70-99) White Blood Count 8.8 x10^3/uL (4.0-11.0) Red Blood Count 2.93 x10^6/uL (3.50-5.40) Hemoglobin 9.8 g/dL (12.0-15.5) Hematocrit 29.8 % (36.0-47.0) Mean Corpuscular Volume 102 fL (79-100) Mean Corpuscular Hemoglobin 34 pg (25-35) Mean Corpuscular Hemoglobin Concent 33 g/dL (31-37) Red Cell Distribution Width 15.4 % (11.5-14.5) Platelet Count 123 x10^3/uL (140-400) Neutrophils (%) (Auto) 73 % (31-73) Lymphocytes (%) (Auto) 17 % (24-48) Monocytes (%) (Auto) 8 % (0-9) Eosinophils (%) (Auto) 2 % (0-3) Basophils (%) (Auto) 1 % (0-3) Neutrophils # (Auto) 6.4 x10^3uL (1.8-7.7) Lymphocytes # (Auto) 1.5 x10^3/uL (1.0-4.8) Monocytes # (Auto) 0.7 x10^3/uL (0.0-1.1) Eosinophils # (Auto) 0.2 x10^3/uL (0.0-0.7) Basophils # (Auto) 0.0 x10^3/uL (0.0-0.2) Sodium Level 134 mmol/L (136-145) Potassium Level 5.1 mmol/L (3.5-5.1) Chloride Level 95 mmol/L (98-107) Carbon Dioxide Level 27 mmol/L (21-32) Anion Gap 12 (6-14) Blood Urea Nitrogen 47 mg/dL (7-20) Creatinine 8.3 mg/dL (0.6-1.0) Estimated GFR (Cockcroft-Gault) 4.7 Glucose Level 204 mg/dL (70-99) Calcium Level 8.9 mg/dL (8.5-10.1) Test 12/23/18 07:21 12/23/18 08:19 Glucose (Fingerstick) 223 mg/dL (70-99) 191 mg/dL (70-99) TRINA العلي MD Dec 23, 2018 11:02
[2018-12-23] MEDS: CALCIUM ACETATE 667 MG CAPSULE PO SCH ×3 (12:00→17:00)
[2018-12-23] MEDS: SEVELAMER CARBONATE 800 MG TABLET. PO SCH ×3 (12:00→17:00)
--- NOTE | 2018-12-23 12:21 | PDOC ---
PROGRESS NOTES Chief Complaint Chief Complaint fall, L pelvic fx History of Present Illness History of Present Illness Patient resting in bed today with and children at bed side. She is not feeling well today, no appetite. Daughter is concerned about her blood pressure being low. Discussed discharge options with family, daughter states she lives next door to patient and helps take care of her and takes her to her dialysis appointments. Concerned about how they will get her to and from dialysis given pain, they do have a wheelchair available at home. Family and patient do not want her to go to SNU, will consider HH at discharge. Vitals Vitals Vital Signs Date Time Temp Pulse Resp B/P (MAP) Pulse Ox O2 Delivery O2 Flow Rate FiO2 12/23/18 07:00 98.8 67 18 100/38 (58) 90 Room Air 98.8 Physical Exam General: Alert, Oriented X3, Cooperative, No acute distress Heart: Regular rate, Other (thready pulse) Lungs: Clear Abdomen: Normal bowel sounds, Soft, No tenderness Extremities: No cyanosis Skin: No breakdown Labs LABS Laboratory Tests Test 12/22/18 16:07 12/22/18 21:14 12/23/18 05:35 12/23/18 07:21 Glucose (Fingerstick) 229 mg/dL (70-99) 134 mg/dL (70-99) 223 mg/dL (70-99) White Blood Count 8.8 x10^3/uL (4.0-11.0) Red Blood Count 2.93 x10^6/uL (3.50-5.40) Hemoglobin 9.8 g/dL (12.0-15.5) Hematocrit 29.8 % (36.0-47.0) Mean Corpuscular Volume 102 fL (79-100) Mean Corpuscular Hemoglobin 34 pg (25-35) Mean Corpuscular Hemoglobin Concent 33 g/dL (31-37) Red Cell Distribution Width 15.4 % (11.5-14.5) Platelet Count 123 x10^3/uL (140-400) Neutrophils (%) (Auto) 73 % (31-73) Lymphocytes (%) (Auto) 17 % (24-48) Monocytes (%) (Auto) 8 % (0-9) Eosinophils (%) (Auto) 2 % (0-3) Basophils (%) (Auto) 1 % (0-3) Neutrophils # (Auto) 6.4 x10^3uL (1.8-7.7) Lymphocytes # (Auto) 1.5 x10^3/uL (1.0-4.8) Monocytes # (Auto) 0.7 x10^3/uL (0.0-1.1) Eosinophils # (Auto) 0.2 x10^3/uL (0.0-0.7) Basophils # (Auto) 0.0 x10^3/uL (0.0-0.2) Sodium Level 134 mmol/L (136-145) Potassium Level 5.1 mmol/L (3.5-5.1) Chloride Level 95 mmol/L (98-107) Carbon Dioxide Level 27 mmol/L (21-32) Anion Gap 12 (6-14) Blood Urea Nitrogen 47 mg/dL (7-20) Creatinine 8.3 mg/dL (0.6-1.0) Estimated GFR (Cockcroft-Gault) 4.7 Glucose Level 204 mg/dL (70-99) Calcium Level 8.9 mg/dL (8.5-10.1) Test 12/23/18 08:19 Glucose (Fingerstick) 191 mg/dL (70-99) Review of Systems Review of Systems no appetite, generally does not feel well today. Assessment and Plan Assessmemt and Plan Assessment: L inferior and superior pubic ramus fracture, displaced Urinary bladder wall thickening, seen on CT ESRD on HD Diabetes Mellitus, Insulin dependent Anemia, stable Thrombocytopenia Hyponatremia Yeast infection, perineum Hypotension Hypertension, history of Coronary artery disease s/p CABG, history of Chronic foot wound, left Malnutrition, mild - albumin 3.2 Plan: Ortho: non-operative, weight bear as tolerated with walker Neph: last HD 12/21, plan for HD today Uro: signed off Nystatin powder BID x7 days for yeast to perineum (day 2/7) Outpatient cystoscopy scheduled with Dr. Vang 01/03/19 Hiprex BID at discharge for UTI prevention Antibiotics: Augmentin (12/22- ) Monitor blood pressure Recheck labs in am Pain management PT/OT Home meds DVT ppx: Heparin 5000 U q12 hrs Appreciate specialty recs Dispo: discharge held today, hypotensive and not feeling well. HD today, will reassess tomorrow morning. Plan to go home with HH at discharge, daughter ass ists with patients care. Comment Review of Relevant I have reviewed the following items anastasiya (where applicable) has been applied. Labs Laboratory Tests Test 12/21/18 16:43 12/21/18 21:09 12/22/18 04:55 12/22/18 07:50 Glucose (Fingerstick) 210 mg/dL (70-99) 176 mg/dL (70-99) 192 mg/dL (70-99) White Blood Count 9.8 x10^3/uL (4.0-11.0) Red Blood Count 2.93 x10^6/uL (3.50-5.40) Hemoglobin 10.0 g/dL (12.0-15.5) Hematocrit 29.8 % (36.0-47.0) Mean Corpuscular Volume 102 fL (79-100) Mean Corpuscular Hemoglobin 34 pg (25-35) Mean Corpuscular Hemoglobin Concent 34 g/dL (31-37) Red Cell Distribution Width 15.0 % (11.5-14.5) Platelet Count 103 x10^3/uL (140-400) Neutrophils (%) (Auto) 75 % (31-73) Lymphocytes (%) (Auto) 16 % (24-48) Monocytes (%) (Auto) 7 % (0-9) Eosinophils (%) (Auto) 2 % (0-3) Basophils (%) (Auto) 0 % (0-3) Neutrophils # (Auto) 7.4 x10^3uL (1.8-7.7) Lymphocytes # (Auto) 1.6 x10^3/uL (1.0-4.8) Monocytes # (Auto) 0.7 x10^3/uL (0.0-1.1) Eosinophils # (Auto) 0.2 x10^3/uL (0.0-0.7) Basophils # (Auto) 0.0 x10^3/uL (0.0-0.2) Sodium Level 131 mmol/L (136-145) Potassium Level 4.7 mmol/L (3.5-5.1) Chloride Level 96 mmol/L (98-107) Carbon Dioxide Level 25 mmol/L (21-32) Anion Gap 10 (6-14) Blood Urea Nitrogen 33 mg/dL (7-20) Creatinine 5.7 mg/dL (0.6-1.0) Estimated GFR (Cockcroft-Gault) 7.2 Glucose Level 219 mg/dL (70-99) Calcium Level 8.6 mg/dL (8.5-10.1) Test 12/22/18 11:50 12/22/18 16:07 12/22/18 21:14 12/23/18 05:35 Glucose (Fingerstick) 168 mg/dL (70-99) 229 mg/dL (70-99) 134 mg/dL (70-99) White Blood Count 8.8 x10^3/uL (4.0-11.0) Red Blood Count 2.93 x10^6/uL (3.50-5.40) Hemoglobin 9.8 g/dL (12.0-15.5) Hematocrit 29.8 % (36.0-47.0) Mean Corpuscular Volume 102 fL (79-100) Mean Corpuscular Hemoglobin 34 pg (25-35) Mean Corpuscular Hemoglobin Concent 33 g/dL (31-37) Red Cell Distribution Width 15.4 % (11.5-14.5) Platelet Count 123 x10^3/uL (140-400) Neutrophils (%) (Auto) 73 % (31-73) Lymphocytes (%) (Auto) 17 % (24-48) Monocytes (%) (Auto) 8 % (0-9) Eosinophils (%) (Auto) 2 % (0-3) Basophils (%) (Auto) 1 % (0-3) Neutrophils # (Auto) 6.4 x10^3uL (1.8-7.7) Lymphocytes # (Auto) 1.5 x10^3/uL (1.0-4.8) Monocytes # (Auto) 0.7 x10^3/uL (0.0-1.1) Eosinophils # (Auto) 0.2 x10^3/uL (0.0-0.7) Basophils # (Auto) 0.0 x10^3/uL (0.0-0.2) Sodium Level 134 mmol/L (136-145) Potassium Level 5.1 mmol/L (3.5-5.1) Chloride Level 95 mmol/L (98-107) Carbon Dioxide Level 27 mmol/L (21-32) Anion Gap 12 (6-14) Blood Urea Nitrogen 47 mg/dL (7-20) Creatinine 8.3 mg/dL (0.6-1.0) Estimated GFR (Cockcroft-Gault) 4.7 Glucose Level 204 mg/dL (70-99) Calcium Level 8.9 mg/dL (8.5-10.1) Test 12/23/18 07:21 12/23/18 08:19 Glucose (Fingerstick) 223 mg/dL (70-99) 191 mg/dL (70-99) Laboratory Tests Test 12/22/18 16:07 12/22/18 21:14 12/23/18 05:35 12/23/18 07:21 Glucose (Fingerstick) 229 mg/dL (70-99) 134 mg/dL (70-99) 223 mg/dL (70-99) White Blood Count 8.8 x10^3/uL (4.0-11.0) Red Blood Count 2.93 x10^6/uL (3.50-5.40) Hemoglobin 9.8 g/dL (12.0-15.5) Hematocrit 29.8 % (36.0-47.0) Mean Corpuscular Volume 102 fL (79-100) Mean Corpuscular Hemoglobin 34 pg (25-35) Mean Corpuscular Hemoglobin Concent 33 g/dL (31-37) Red Cell Distribution Width 15.4 % (11.5-14.5) Platelet Count 123 x10^3/uL (140-400) Neutrophils (%) (Auto) 73 % (31-73) Lymphocytes (%) (Auto) 17 % (24-48) Monocytes (%) (Auto) 8 % (0-9) Eosinophils (%) (Auto) 2 % (0-3) Basophils (%) (Auto) 1 % (0-3) Neutrophils # (Auto) 6.4 x10^3uL (1.8-7.7) Lymphocytes # (Auto) 1.5 x10^3/uL (1.0-4.8) Monocytes # (Auto) 0.7 x10^3/uL (0.0-1.1) Eosinophils # (Auto) 0.2 x10^3/uL (0.0-0.7) Basophils # (Auto) 0.0 x10^3/uL (0.0-0.2) Sodium Level 134 mmol/L (136-145) Potassium Level 5.1 mmol/L (3.5-5.1) Chloride Level 95 mmol/L (98-107) Carbon Dioxide Level 27 mmol/L (21-32) Anion Gap 12 (6-14) Blood Urea Nitrogen 47 mg/dL (7-20) Creatinine 8.3 mg/dL (0.6-1.0) Estimated GFR (Cockcroft-Gault) 4.7 Glucose Level 204 mg/dL (70-99) Calcium Level 8.9 mg/dL (8.5-10.1) Test 12/23/18 08:19 Glucose (Fingerstick) 191 mg/dL (70-99) Medications Current Medications Acetaminophen/ Hydrocodone Bitart (Lortab 5/325) 1 tab 1X ONCE PO Last administered on 12/21/18at 01:00; Start 12/21/18 at 01:00; Stop 12/21/18 at 01:01; Status DC Fentanyl Citrate (Fentanyl 2ml Vial) 50 mcg 1X ONCE IV Last administered on 12/21/18at 02:30; Start 12/21/18 at 02:30; Stop 12/21/18 at 02:31; Status DC Ondansetron HCl (Zofran) 4 mg 1X ONCE IV Last administered on 12/21/18at 02:59; Start 12/21/18 at 03:30; Stop 12/21/18 at 03:31; Status DC Ondansetron HCl (Zofran) 4 mg PRN Q8HRS PRN IV NAUSEA/VOMITING 1ST CHOICE; Start 12/21/18 at 03:30; Stop 12/22/18 at 03:29; Status DC Fentanyl Citrate (Fentanyl 2ml Vial) 25 mcg PRN Q2HRS PRN IV SEVERE PAIN; Start 12/21/18 at 03:30 Insulin Human Lispro (HumaLOG) 0-5 UNITS TIDWMEALS SQ Last administered on 12/22/18at 17:19; Start 12/21/18 at 08:00; Stop 12/22/18 at 18:14; Status DC Dextrose (Dextrose 50%-Water Syringe) 12.5 gm PRN Q15MIN PRN IV SEE COMMENTS; Start 12/21/18 at 03:30 Famotidine (Pepcid Vial) 20 mg 1X ONCE IVP Last administered on 12/21/18at 04:16; Start 12/21/18 at 04:00; Stop 12/21/18 at 04:01; Status DC Ondansetron HCl (Zofran) 4 mg 1X ONCE IV Last administered on 12/21/18at 04:14; Start 12/21/18 at 04:00; Stop 12/21/18 at 04:01; Status DC Sodium Chloride 1,000 ml @ 1,000 mls/hr Q1H PRN IV hypotension; Start 12/21/18 at 08:24; Stop 12/21/18 at 14:23; Status DC Albumin Human 200 ml @ 200 mls/hr 1X PRN PRN IV Hypotension; Start 12/21/18 at 08:30; Stop 12/21/18 at 14:29; Status DC Sodium Chloride (Normal Saline Flush) 10 ml 1X PRN PRN IV AP catheter pack; Start 12/21/18 at 08:30; Stop 12/22/18 at 08:29; Status DC Sodium Chloride (Normal Saline Flush) 10 ml 1X PRN PRN IV W[employer] INS[employer]OR catheter pack; Start 12/21/18 at 08:30; Stop 12/22/18 at 08:29; Status DC Sodium Chloride 1,000 ml @ 400 mls/hr Q2H30M PRN IV PATENCY; Start 12/21/18 at 08:24; Stop 12/21/18 at 20:23; Status DC Info (PHARMACY MONITORING -- do not chart) 1 each PRN DAILY PRN MC SEE COMMENTS; Start 12/21/18 at 08:30; Status UNV Info (PHARMACY MONITORING -- do not chart) 1 each PRN DAILY PRN MC SEE COMMENTS; Start 12/21/18 at 08:30 Amoxicillin/ Clavulanate Potassium (Augmentin 875/ 125mg) 1 tab BID PO ; Start 12/21/18 at 21:00; Status Cancel Aspirin (Ecotrin) 81 mg DAILY08 PO Last administered on 12/22/18at 08:35; Start 12/21/18 at 11:00 Insulin Glargine (Lantus) 6 units QHS SQ Last administered on 12/21/18at 21:12; Start 12/21/18 at 21:00 Calcium Acetate (Phoslo) 1,334 mg TIDWMEALS PO Last administered on 12/22/18at 17:13; Start 12/21/18 at 12:00 Vitamin B Complex/ Vitamin C (Funmi-Hannah) 1 tab DAILY PO Last administered on 12/22/18at 08:35; Start 12/21/18 at 11:00 Amoxicillin/ Clavulanate Potassium (Augmentin 500/ 125mg) 1 tab Q24H PO Last administered on 12/22/18at 08:34; Start 12/22/18 at 09:00 Sevelamer Carbonate (Renvela) 1,600 mg TIDWMEALS PO Last administered on 12/22/18at 17:13; Start 12/21/18 at 12:00 Nystatin (Nystop) 1 scotty BID TP Last administered on 12/22/18at 21:00; Start 12/21/18 at 14:00 Acetaminophen/ Hydrocodone Bitart (Lortab 5/325) 1 tab PRN Q4HRS PRN PO MODERATE PAIN Last administered on 12/22/18at 21:28; Start 12/21/18 at 14:30 Heparin Sodium (Porcine) (Heparin Sodium) 5,000 unit Q12HR SQ Last administered on 12/22/18at 21:31; Start 12/22/18 at 11:00 Docusate Sodium (Colace) 100 mg PRN DAILY PRN PO CONSTIPATION; Start 12/22/18 at 13:00 Insulin Human Lispro (HumaLOG) 6 units TIDAC SQ Last administered on 12/23/18at 07:36; Start 12/23/18 at 07:30 Nystatin (Mycostatin) 1 scotty PRN BID PRN TP RASH; Start 12/22/18 at 18:15 Lactobacillus Rhamnosus (Culturelle) 1 cap BID PO Last administered on 12/22/18at 21:27; Start 12/22/18 at 21:00 Sodium Chloride 500 ml @ 500 mls/hr 1X ONCE IV ; Start 12/22/18 at 21:00; Stop 12/22/18 at 21:59; Status DC Info (PHARMACY MONITORING -- do not chart) 1 each PRN DAILY PRN MC SEE COMMENTS; Start 12/23/18 at 10:30; Status UNV Info (PHARMACY MONITORING -- do not chart) 1 each PRN DAILY PRN MC SEE COMMENTS; Start 12/23/18 at 10:30; Status UNV Active Scripts Active Estrace (Estradiol) 42.5 Gm Cream.appl 1 Scotty VG 3X/WEEK 14 Days Reported Funmi-Hannah Rx Tablet (Vit B Cmplx 3/Fa/Vit C/Biotin) 1 Each Tablet 1 Each PO DAILY Amox Tr-K Clv 875-125 Mg Tab (Amoxicillin/Potassium Clav) 1 Each Tablet 1 Tab PO BID Novolog (Insulin Aspart) 100 Unit/1 Ml Cartridge 6 Unit SQ TIDAC Lantus Solostar (Insulin Glargine,Hum.rec.anlog) 100 Unit/1 Ml Insuln.pen 6 Unit SQ QHS [regrenex] TOP DAILY PRN Calcium Acetate 667 Mg Tablet 2 Cap PO TIDAC Aspir 81 (Aspirin) 81 Mg Tablet. 1 Tab PO DAILY08 Vitals/I & O Vital Sign - Last 24 Hours 12/22/18 12/22/18 12/22/18 12/22/18 12:38 14:12 15:00 15:15 Temp 98.1 98.1 Pulse 93 Resp 18 B/P (MAP) 88/65 (73) 90/63 (72) Pulse Ox 90 90 92 O2 Delivery Room Air Room Air 12/22/18 12/22/18 12/22/18 12/22/18 19:25 20:00 21:28 22:28 Temp 98.7 98.7 Pulse 83 Resp 20 17 17 B/P (MAP) 92/36 (54) Pulse Ox 95 O2 Delivery Room Air Room Air Room Air Room Air 12/22/18 12/23/18 12/23/18 23:42 03:34 07:00 Temp 99.5 98.5 98.8 99.5 98.5 98.8 Pulse 91 94 67 Resp 20 18 18 B/P (MAP) 91/35 (53) 93/32 (52) 100/38 (58) Pulse Ox 92 92 90 O2 Delivery Room Air Room Air Room Air Intake and Output 12/22/18 12/22/18 12/23/18 15:00 23:00 07:00 Intake Total 480 ml Balance 480 ml NIDIA SQUIRES III DO Dec 23, 2018 12:21
[2018-12-23] MEDS: FOLIC/VIT B COMP W-C (RENAL) TABLET. PO SCH (14:50)
[2018-12-23] MEDS: ASPIRIN ENTERIC COATED 81 MG TABLET.DR. PO SCH (14:51)
[2018-12-23] MEDS: AMOXICILLIN/K CLAV 500/125MG TABLET. PO SCH (14:51)
[2018-12-23] MEDS: LACTOBACILLUS RHAMNOSUS GG 1 CAPSULE. PO SCH ×2 (14:51→21:53)
[2018-12-23] MEDS: HEPARIN for SUB-Q USE 5,000 UNIT/ML VIAL. SQ SCH ×2 (14:58→21:58)
[2018-12-23 15:00] VITALS: BP 106/43
[2018-12-23] MEDS: HYDROcodone/APAP 5/325MG 1 TAB TABLET PO PRN ×2 (15:59→20:04)
[2018-12-23 19:00] VITALS: BP 111/40
[2018-12-23] MEDS: INSULIN GLARGINE 300 UNITS/3 ML INSULN.PEN. SQ SCH (21:00)
[2018-12-23 23:00] VITALS: BP 99/41
[2018-12-24] MEDS: HYDROcodone/APAP 5/325MG 1 TAB TABLET PO PRN (02:24)
[2018-12-24 02:40] VITALS: BP 112/45
[2018-12-24 07:00] VITALS: BP 147/60
[2018-12-24] MEDS: INSULIN LISPRO 300 UNITS/3 ML INSULN.PEN. SQ SCH ×3 (07:30→17:46)
[2018-12-24] MEDS: ASPIRIN ENTERIC COATED 81 MG TABLET.DR. PO SCH (08:00)
[2018-12-24] MEDS: ONDANSETRON PF 4 MG/2 ML VIAL. IV PRN (08:00)
[2018-12-24] MEDS: CALCIUM ACETATE 667 MG CAPSULE PO SCH ×3 (08:00→17:43)
[2018-12-24] MEDS: SEVELAMER CARBONATE 800 MG TABLET. PO SCH ×3 (08:00→17:43)
[2018-12-24] MEDS: HEPARIN for SUB-Q USE 5,000 UNIT/ML VIAL. SQ SCH ×2 (08:07→22:25)
[2018-12-24 09:00] LABS: CREATININE 5.9 mg/dL (0.6-1.0); POTASSIUM 4.6 mmol/L (3.5-5.1)
[2018-12-24] MEDS: LACTOBACILLUS RHAMNOSUS GG 1 CAPSULE. PO SCH ×2 (09:00→22:20)
[2018-12-24] MEDS: NYSTATIN TOPICAL POWDER 15GM BOTTLE. TP SCH ×2 (09:00→21:00)
[2018-12-24] MEDS: FOLIC/VIT B COMP W-C (RENAL) TABLET. PO SCH (09:00)
[2018-12-24] MEDS: AMOXICILLIN/K CLAV 500/125MG TABLET. PO SCH (09:00)
[2018-12-24 11:00] VITALS: BP 156/71
--- NOTE | 2018-12-24 12:18 | PDOC ---
PROGRESS NOTES Chief Complaint Chief Complaint fall, L pelvic fx History of Present Illness History of Present Illness Patient was seen and examined this morning, she appears to be nauseated and depressed. Discussed her case with all of her family members . I am going-ahead and consult GI and continue current treatment. Vitals Vitals Vital Signs Date Time Temp Pulse Resp B/P (MAP) Pulse Ox O2 Delivery O2 Flow Rate FiO2 12/24/18 07:30 Room Air 12/24/18 07:00 97.6 100 18 147/60 (89) 97 97.6 Physical Exam General: Alert, Oriented X3, Cooperative, No acute distress, Other (nauseated) Heart: Regular rate, Other (thready pulse) Lungs: Clear Abdomen: Normal bowel sounds, Soft, No tenderness Extremities: No cyanosis Skin: No breakdown Labs LABS Laboratory Tests Test 12/23/18 12:35 12/23/18 16:28 12/23/18 21:15 12/24/18 06:04 Glucose (Fingerstick) 105 mg/dL (70-99) 182 mg/dL (70-99) 189 mg/dL (70-99) 170 mg/dL (70-99) Test 12/24/18 07:39 12/24/18 08:22 12/24/18 11:49 Glucose (Fingerstick) 164 mg/dL (70-99) 167 mg/dL (70-99) Sodium Level 135 mmol/L (136-145) Potassium Level 4.6 mmol/L (3.5-5.1) Chloride Level 97 mmol/L (98-107) Carbon Dioxide Level 28 mmol/L (21-32) Anion Gap 10 (6-14) Blood Urea Nitrogen 32 mg/dL (7-20) Creatinine 5.9 mg/dL (0.6-1.0) Estimated GFR (Cockcroft-Gault) 7.0 Glucose Level 193 mg/dL (70-99) Calcium Level 9.0 mg/dL (8.5-10.1) Review of Systems Review of Systems Complains of nausea and depression Assessment and Plan Assessmemt and Plan Assessment: L inferior and superior pubic ramus fracture, displaced Urinary bladder wall thickening, seen on CT ESRD on HD Diabetes Mellitus, Insulin dependent Anemia, stable Thrombocytopenia Hyponatremia Yeast infection, perineum Hypotension Hypertension, history of Coronary artery disease s/p CABG, history of Chronic foot wound, left Malnutrition, mild - albumin 3.2 Plan: Consult GI Ortho: non-operative, weight bear as tolerated with walker Neph: last HD 12/21, plan for HD today Uro: signed off Nystatin powder BID x7 days for yeast to perineum (day 2/7) Outpatient cystoscopy scheduled with Dr. Vang 01/03/19 Hiprex BID at discharge for UTI prevention Antibiotics: Augmentin (12/22- ) Monitor blood pressure Recheck labs in am Pain management PT/OT Home meds DVT ppx: Heparin 5000 U q12 hrs Appreciate specialty recs Dispo: discharge held today, hypotensive and not feeling well. HD today, will reassess tomorrow morning. Plan to go home with HH at discharge, daughter assists with patients care. Comment Review of Relevant I have reviewed the following items anastasiya (where applicable) has been applied. Labs Laboratory Tests Test 12/22/18 16:07 12/22/18 21:14 12/23/18 05:35 12/23/18 07:21 Glucose (Fingerstick) 229 mg/dL (70-99) 134 mg/dL (70-99) 223 mg/dL (70-99) White Blood Count 8.8 x10^3/uL (4.0-11.0) Red Blood Count 2.93 x10^6/uL (3.50-5.40) Hemoglobin 9.8 g/dL (12.0-15.5) Hematocrit 29.8 % (36.0-47.0) Mean Corpuscular Volume 102 fL (79-100) Mean Corpuscular Hemoglobin 34 pg (25-35) Mean Corpuscular Hemoglobin Concent 33 g/dL (31-37) Red Cell Distribution Width 15.4 % (11.5-14.5) Platelet Count 123 x10^3/uL (140-400) Neutrophils (%) (Auto) 73 % (31-73) Lymphocytes (%) (Auto) 17 % (24-48) Monocytes (%) (Auto) 8 % (0-9) Eosinophils (%) (Auto) 2 % (0-3) Basophils (%) (Auto) 1 % (0-3) Neutrophils # (Auto) 6.4 x10^3uL (1.8-7.7) Lymphocytes # (Auto) 1.5 x10^3/uL (1.0-4.8) Monocytes # (Auto) 0.7 x10^3/uL (0.0-1.1) Eosinophils # (Auto) 0.2 x10^3/uL (0.0-0.7) Basophils # (Auto) 0.0 x10^3/uL (0.0-0.2) Sodium Level 134 mmol/L (136-145) Potassium Level 5.1 mmol/L (3.5-5.1) Chloride Level 95 mmol/L (98-107) Carbon Dioxide Level 27 mmol/L (21-32) Anion Gap 12 (6-14) Blood Urea Nitrogen 47 mg/dL (7-20) Creatinine 8.3 mg/dL (0.6-1.0) Estimated GFR (Cockcroft-Gault) 4.7 Glucose Level 204 mg/dL (70-99) Calcium Level 8.9 mg/dL (8.5-10.1) Test 12/23/18 08:19 12/23/18 12:35 12/23/18 16:28 12/23/18 21:15 Glucose (Fingerstick) 191 mg/dL (70-99) 105 mg/dL (70-99) 182 mg/dL (70-99) 189 mg/dL (70-99) Test 12/24/18 06:04 12/24/18 07:39 12/24/18 08:22 12/24/18 11:49 Glucose (Fingerstick) 170 mg/dL (70-99) 164 mg/dL (70-99) 167 mg/dL (70-99) Sodium Level 135 mmol/L (136-145) Potassium Level 4.6 mmol/L (3.5-5.1) Chloride Level 97 mmol/L (98-107) Carbon Dioxide Level 28 mmol/L (21-32) Anion Gap 10 (6-14) Blood Urea Nitrogen 32 mg/dL (7-20) Creatinine 5.9 mg/dL (0.6-1.0) Estimated GFR (Cockcroft-Gault) 7.0 Glucose Level 193 mg/dL (70-99) Calcium Level 9.0 mg/dL (8.5-10.1) Laboratory Tests Test 12/23/18 12:35 12/23/18 16:28 12/23/18 21:15 12/24/18 06:04 Glucose (Fingerstick) 105 mg/dL (70-99) 182 mg/dL (70-99) 189 mg/dL (70-99) 170 mg/dL (70-99) Test 12/24/18 07:39 12/24/18 08:22 12/24/18 11:49 Glucose (Fingerstick) 164 mg/dL (70-99) 167 mg/dL (70-99) Sodium Level 135 mmol/L (136-145) Potassium Level 4.6 mmol/L (3.5-5.1) Chloride Level 97 mmol/L (98-107) Carbon Dioxide Level 28 mmol/L (21-32) Anion Gap 10 (6-14) Blood Urea Nitrogen 32 mg/dL (7-20) Creatinine 5.9 mg/dL (0.6-1.0) Estimated GFR (Cockcroft-Gault) 7.0 Glucose Level 193 mg/dL (70-99) Calcium Level 9.0 mg/dL (8.5-10.1) Medications Current Medications Acetaminophen/ Hydrocodone Bitart (Lortab 5/325) 1 tab 1X ONCE PO Last administered on 12/21/18at 01:00; Start 12/21/18 at 01:00; Stop 12/21/18 at 01:01; Status DC Fentanyl Citrate (Fentanyl 2ml Vial) 50 mcg 1X ONCE IV Last administered on 12/21/18at 02:30; Start 12/21/18 at 02:30; Stop 12/21/18 at 02:31; Status DC Ondansetron HCl (Zofran) 4 mg 1X ONCE IV Last administered on 12/21/18at 02:59; Start 12/21/18 at 03:30; Stop 12/21/18 at 03:31; Status DC Ondansetron HCl (Zofran) 4 mg PRN Q8HRS PRN IV NAUSEA/VOMITING 1ST CHOICE; Start 12/21/18 at 03:30; Stop 12/22/18 at 03:29; Status DC Fentanyl Citrate (Fentanyl 2ml Vial) 25 mcg PRN Q2HRS PRN IV SEVERE PAIN; Start 12/21/18 at 03:30 Insulin Human Lispro (HumaLOG) 0-5 UNITS TIDWMEALS SQ Last administered on 12/22/18at 17:19; Start 12/21/18 at 08:00; Stop 12/22/18 at 18:14; Status DC Dextrose (Dextrose 50%-Water Syringe) 12.5 gm PRN Q15MIN PRN IV SEE COMMENTS; Start 12/21/18 at 03:30 Famotidine (Pepcid Vial) 20 mg 1X ONCE IVP Last administered on 12/21/18at 04:16; Start 12/21/18 at 04:00; Stop 12/21/18 at 04:01; Status DC Ondansetron HCl (Zofran) 4 mg 1X ONCE IV Last administered on 12/21/18at 04:14; Start 12/21/18 at 04:00; Stop 12/21/18 at 04:01; Status DC Sodium Chloride 1,000 ml @ 1,000 mls/hr Q1H PRN IV hypotension; Start 12/21/18 at 08:24; Stop 12/21/18 at 14:23; Status DC Albumin Human 200 ml @ 200 mls/hr 1X PRN PRN IV Hypotension; Start 12/21/18 at 08:30; Stop 12/21/18 at 14:29; Status DC Sodium Chloride (Normal Saline Flush) 10 ml 1X PRN PRN IV AP catheter pack; Start 12/21/18 at 08:30; Stop 12/22/18 at 08:29; Status DC Sodium Chloride (Normal Saline Flush) 10 ml 1X PRN PRN IV N[employer]ACH catheter pack; Start 12/21/18 at 08:30; Stop 12/22/18 at 08:29; Status DC Sodium Chloride 1,000 ml @ 400 mls/hr Q2H30M PRN IV PATENCY; Start 12/21/18 at 08:24; Stop 12/21/18 at 20:23; Status DC Info (PHARMACY MONITORING -- do not chart) 1 each PRN DAILY PRN MC SEE COMMENTS; Start 12/21/18 at 08:30; Status UNV Info (PHARMACY MONITORING -- do not chart) 1 each PRN DAILY PRN MC SEE COMMENTS; Start 12/21/18 at 08:30 Amoxicillin/ Clavulanate Potassium (Augmentin 875/ 125mg) 1 tab BID PO ; Start 12/21/18 at 21:00; Status Cancel Aspirin (Ecotrin) 81 mg DAILY08 PO Last administered on 12/23/18 14:51; Start 12/21/18 at 11:00 Insulin Glargine (Lantus) 6 units QHS SQ Last administered on 12/21/18 21:12; Start 12/21/18 at 21:00 Calcium Acetate (Phoslo) 1,334 mg TIDWMEALS PO Last administered on 12/23/18 14:50; Start 12/21/18 at 12:00 Vitamin B Complex/ Vitamin C (Funmi-Hannah) 1 tab DAILY PO Last administered on 12/23/18 14:50; Start 12/21/18 at 11:00 Amoxicillin/ Clavulanate Potassium (Augmentin 500/ 125mg) 1 tab Q24H PO Last administered on 12/23/18 14:51; Start 12/22/18 at 09:00 Sevelamer Carbonate (Renvela) 1,600 mg TIDWMEALS PO Last administered on 12/23/18 14:51; Start 12/21/18 at 12:00 Nystatin (Nystop) 1 scotty BID TP Last administered on 12/22/18 21:00; Start 12/21/18 at 14:00 Acetaminophen/ Hydrocodone Bitart (Lortab 5/325) 1 tab PRN Q4HRS PRN PO MODERATE PAIN Last administered on 12/24/18 02:24; Start 12/21/18 at 14:30 Heparin Sodium (Porcine) (Heparin Sodium) 5,000 unit Q12HR SQ Last administered on 12/24/18 08:07; Start 12/22/18 at 11:00 Docusate Sodium (Colace) 100 mg PRN DAILY PRN PO CONSTIPATION; Start 12/22/18 at 13:00 Insulin Human Lispro (HumaLOG) 6 units TIDAC SQ Last administered on 12/23/18 07:36; Start 12/23/18 at 07:30 Nystatin (Mycostatin) 1 scotty PRN BID PRN TP RASH; Start 12/22/18 at 18:15 Lactobacillus Rhamnosus (Culturelle) 1 cap BID PO Last administered on 12/23/18 21:53; Start 12/22/18 at 21:00 Sodium Chloride 500 ml @ 500 mls/hr 1X ONCE IV ; Start 12/22/18 at 21:00; Stop 12/22/18 at 21:59; Status DC Info (PHARMACY MONITORING -- do not chart) 1 each PRN DAILY PRN MC SEE COMMENTS; Start 12/23/18 at 10:30; Status UNV Info (PHARMACY MONITORING -- do not chart) 1 each PRN DAILY PRN MC SEE COMMENTS; Start 12/23/18 at 10:30; Status UNV Ondansetron HCl (Zofran) 4 mg PRN Q6HRS PRN IV NAUSEA/VOMITING Last admi nistered on 12/24/18at 08:00; Start 12/24/18 at 07:45 Active Scripts Active Estrace (Estradiol) 42.5 Gm Cream.appl 1 Scotty VG 3X/WEEK 14 Days Reported [facility] Rx Tablet (Vit B Cmplx 3/Fa/Vit C/Biotin) 1 Each Tablet 1 Each PO DAILY Amox Tr-K Clv 875-125 Mg Tab (Amoxicillin/Potassium Clav) 1 Each Tablet 1 Tab PO BID Novolog (Insulin Aspart) 100 Unit/1 Ml Cartridge 6 Unit SQ TIDAC Lantus Solostar (Insulin Glargine,Hum.rec.anlog) 100 Unit/1 Ml Insuln.pen 6 Unit SQ QHS [regrenex] TOP DAILY PRN Calcium Acetate 667 Mg Tablet 2 Cap PO TIDAC Aspir 81 (Aspirin) 81 Mg Tablet. 1 Tab PO DAILY08 Vitals/I & O Vital Sign - Last 24 Hours 12/23/18 12/23/18 12/23/18 12/23/18 15:00 15:59 19:00 20:04 Temp 99.4 99.4 99.4 99.4 Pulse 109 103 Resp 18 18 B/P (MAP) 106/43 (64) 111/40 (63) Pulse Ox 92 92 O2 Delivery Room Air Room Air Room Air Room Air 12/23/18 12/23/18 12/24/18 12/24/18 20:15 23:00 02:24 02:40 Temp 99.0 99.3 99.0 99.3 Pulse 91 99 Resp 18 16 B/P (MAP) 99/41 (60) 112/45 (67) Pulse Ox 92 90 O2 Delivery Room Air Room Air Room Air Room Air 12/24/18 12/24/18 12/24/18 03:24 07:00 07:30 Temp 97.6 97.6 Pulse 100 Resp 18 B/P (MAP) 147/60 (89) Pulse Ox 97 O2 Delivery Room Air Room Air Room Air Intake and Output 12/23/18 12/23/18 12/24/18 14:59 22:59 06:59 Intake Total 240 ml 120 ml 800 ml Balance 240 ml 120 ml 800 ml NIDIA SQUIRES III DO Dec 24, 2018 12:18
[2018-12-24 14:52] LABS: BASO % 0 % (0-3); EOS # 0.1 x10^3/uL (0.0-0.7); EOS % 1 % (0-3); HEMATOCRIT 27.3 % (36.0-47.0); HEMOGLOBIN 8.9 g/dL (12.0-15.5); LYMPH # 1.1 x10^3/uL (1.0-4.8); LYMPH % 13 % (24-48); MEAN CORPUSCULAR HEMOGLOBIN 33 pg (25-35); MEAN CORPUSCULAR HGB CONC 33 g/dL (31-37); MEAN CORPUSCULAR VOLUME 103 fL (79-100); MONO # 0.7 x10^3/uL (0.0-1.1); MONO % 9 % (0-9); NEUT # 6.5 x10^3uL (1.8-7.7); NEUT % 77 % (31-73); PLATELET COUNT 130 x10^3/uL (140-400); RED BLOOD COUNT 2.66 x10^6/uL (3.50-5.40); WHITE BLOOD COUNT 8.4 x10^3/uL (4.0-11.0)
[2018-12-24 15:00] VITALS: BP 103/50
[2018-12-24 19:00] VITALS: BP_SYST 120; BP_SYST 159; BP_DIAS 100; BP_DIAS 50
[2018-12-24] MEDS: INSULIN GLARGINE 300 UNITS/3 ML INSULN.PEN. SQ SCH (21:00)
[2018-12-24 23:00] VITALS: BP 106/43
[2018-12-25 03:00] VITALS: BP 123/61
[2018-12-25 07:00] VITALS: BP 127/58
[2018-12-25] MEDS: INSULIN LISPRO 300 UNITS/3 ML INSULN.PEN. SQ SCH ×3 (07:30→17:34)
[2018-12-25 07:53] LABS: BASO % 0 % (0-3); EOS # 0.2 x10^3/uL (0.0-0.7); EOS % 2 % (0-3); HEMATOCRIT 25.2 % (36.0-47.0); HEMOGLOBIN 8.5 g/dL (12.0-15.5); LYMPH # 1.2 x10^3/uL (1.0-4.8); LYMPH % 15 % (24-48); MEAN CORPUSCULAR HEMOGLOBIN 34 pg (25-35); MEAN CORPUSCULAR HGB CONC 34 g/dL (31-37); MEAN CORPUSCULAR VOLUME 102 fL (79-100); MONO # 0.7 x10^3/uL (0.0-1.1); MONO % 9 % (0-9); NEUT # 5.7 x10^3uL (1.8-7.7); NEUT % 73 % (31-73); PLATELET COUNT 157 x10^3/uL (140-400); RED BLOOD COUNT 2.48 x10^6/uL (3.50-5.40); RED CELL DISTRIBUTION WIDTH 14.9 % (11.5-14.5); WHITE BLOOD COUNT 7.8 x10^3/uL (4.0-11.0)
[2018-12-25 08:06] LABS: CREATININE 7.3 mg/dL (0.6-1.0); GFR 5.4; POTASSIUM 4.7 mmol/L (3.5-5.1)
[2018-12-25] MEDS: AMOXICILLIN/K CLAV 500/125MG TABLET. PO SCH (08:33)
[2018-12-25] MEDS: LACTOBACILLUS RHAMNOSUS GG 1 CAPSULE. PO SCH ×2 (08:33→20:22)
[2018-12-25] MEDS: ASPIRIN ENTERIC COATED 81 MG TABLET.DR. PO SCH (08:33)
[2018-12-25] MEDS: SEVELAMER CARBONATE 800 MG TABLET. PO SCH ×3 (08:33→16:01)
[2018-12-25] MEDS: FOLIC/VIT B COMP W-C (RENAL) TABLET. PO SCH (08:33)
[2018-12-25] MEDS: CALCIUM ACETATE 667 MG CAPSULE PO SCH ×3 (08:33→16:01)
[2018-12-25] MEDS: NYSTATIN TOPICAL POWDER 15GM BOTTLE. TP SCH ×2 (08:34→21:00)
[2018-12-25] MEDS: HEPARIN for SUB-Q USE 5,000 UNIT/ML VIAL. SQ SCH ×2 (08:42→20:33)
[2018-12-25] MEDS: traMADol 50 MG TABLET PO PRN ×3 (09:19→22:05)
--- NOTE | 2018-12-25 10:41 | PDOC ---
PROGRESS NOTES Chief Complaint Chief Complaint fall, L pelvic fx History of Present Illness History of Present Illness Patient was seen and examined this morning, pain not better today, INTRACTABLE WILL TRY TRAMADOL nauseated and depressed. Discussed her case with all of her family members . consult GI and continue current treatment. Acute appearing displaced fracture of the left side of the pelvis involving both the inferior and superior pubic ramus and extending near the region of the pubic symphysis. There is adjacent hematoma within the soft tissues. Partial visualization of right-sided hydronephrosis and bilateral hydroureter Wall thickening of the urinary bladder Could be infectious in nature with other causes such as bladder wall mass will need cystoscopy Assessment/Plan Assessment/Plan Yeast to perineum: nystatin powder BID A follow up appointment has been arranged for cystoscopy with Dr. Vang as an outpatient on 01/03/19 Vitals Vitals Vital Signs Date Time Temp Pulse Resp B/P (MAP) Pulse Ox O2 Delivery O2 Flow Rate FiO2 12/25/18 09:19 Room Air 12/25/18 07:00 98.6 87 18 127/58 (81) 96 98.6 Physical Exam General: Alert, Oriented X3, Cooperative, No acute distress, mild distress, moderate distress, Other (nauseated) Heart: Regular rate, Other (thready pulse) Lungs: Clear Abdomen: Normal bowel sounds, Soft, No tenderness Extremities: No cyanosis Skin: No breakdown Labs LABS SEX: F STATUS: REG [facility] [place] LOCATION: SURG DATE OF SURGERY: 11/02/2017 PREOPERATIVE DIAGNOSES: 1. Bilateral hydronephrosis. 2. Neurogenic bladder. POSTOPERATIVE DIAGNOSES: 1. Bilateral hydronephrosis. 2. Neurogenic bladder. PROCEDURE: 1. Cystoscopy with bilateral stent removal. 2. Bilateral stent placement. SURGEON: Dolly Vang MD. ANESTHESIA: General. CONDITION: Stable. COMPLICATIONS: None. ESTIMATED BLOOD LOSS: None. Laboratory Tests Test 12/24/18 11:49 12/24/18 14:45 12/24/18 17:04 12/24/18 21:33 Glucose (Fingerstick) 167 mg/dL (70-99) 213 mg/dL (70-99) 92 mg/dL (70-99) White Blood Count 8.4 x10^3/uL (4.0-11.0) Red Blood Count 2.66 x10^6/uL (3.50-5.40) Hemoglobin 8.9 g/dL (12.0-15.5) Hematocrit 27.3 % (36.0-47.0) Mean Corpuscular Volume 103 fL (79-100) Mean Corpuscular Hemoglobin 33 pg (25-35) Mean Corpuscular Hemoglobin Concent 33 g/dL (31-37) Red Cell Distribution Width 15.0 % (11.5-14.5) Platelet Count 130 x10^3/uL (140-400) Neutrophils (%) (Auto) 77 % (31-73) Lymphocytes (%) (Auto) 13 % (24-48) Monocytes (%) (Auto) 9 % (0-9) Eosinophils (%) (Auto) 1 % (0-3) Basophils (%) (Auto) 0 % (0-3) Neutrophils # (Auto) 6.5 x10^3uL (1.8-7.7) Lymphocytes # (Auto) 1.1 x10^3/uL (1.0-4.8) Monocytes # (Auto) 0.7 x10^3/uL (0.0-1.1) Eosinophils # (Auto) 0.1 x10^3/uL (0.0-0.7) Basophils # (Auto) 0.0 x10^3/uL (0.0-0.2) Test 12/25/18 02:10 12/25/18 07:29 12/25/18 07:43 Glucose (Fingerstick) 128 mg/dL (70-99) 128 mg/dL (70-99) White Blood Count 7.8 x10^3/uL (4.0-11.0) Red Blood Count 2.48 x10^6/uL (3.50-5.40) Hemoglobin 8.5 g/dL (12.0-15.5) Hematocrit 25.2 % (36.0-47.0) Mean Corpuscular Volume 102 fL (79-100) Mean Corpuscular Hemoglobin 34 pg (25-35) Mean Corpuscular Hemoglobin Concent 34 g/dL (31-37) Red Cell Distribution Width 14.9 % (11.5-14.5) Platelet Count 157 x10^3/uL (140-400) Neutrophils (%) (Auto) 73 % (31-73) Lymphocytes (%) (Auto) 15 % (24-48) Monocytes (%) (Auto) 9 % (0-9) Eosinophils (%) (Auto) 2 % (0-3) Basophils (%) (Auto) 0 % (0-3) Neutrophils # (Auto) 5.7 x10^3uL (1.8-7.7) Lymphocytes # (Auto) 1.2 x10^3/uL (1.0-4.8) Monocytes # (Auto) 0.7 x10^3/uL (0.0-1.1) Eosinophils # (Auto) 0.2 x10^3/uL (0.0-0.7) Basophils # (Auto) 0.0 x10^3/uL (0.0-0.2) Sodium Level 138 mmol/L (136-145) Potassium Level 4.7 mmol/L (3.5-5.1) Chloride Level 99 mmol/L (98-107) Carbon Dioxide Level 29 mmol/L (21-32) Anion Gap 10 (6-14) Blood Urea Nitrogen 45 mg/dL (7-20) Creatinine 7.3 mg/dL (0.6-1.0) Estimated GFR (Cockcroft-Gault) 5.4 Glucose Level 150 mg/dL (70-99) Calcium Level 9.0 mg/dL (8.5-10.1) Assessment and Plan Assessmemt and Plan Problems Medical Problems: (1) Pelvis fracture Status: Acute Comment Review of Relevant I have reviewed the following items anastasyia (where applicable) has been applied. Labs Laboratory Tests Test 12/23/18 12:35 12/23/18 16:28 12/23/18 21:15 12/24/18 06:04 Glucose (Fingerstick) 105 mg/dL (70-99) 182 mg/dL (70-99) 189 mg/dL (70-99) 170 mg/dL (70-99) Test 12/24/18 07:39 12/24/18 08:22 12/24/18 11:49 12/24/18 14:45 Glucose (Fingerstick) 164 mg/dL (70-99) 167 mg/dL (70-99) Sodium Level 135 mmol/L (136-145) Potassium Level 4.6 mmol/L (3.5-5.1) Chloride Level 97 mmol/L (98-107) Carbon Dioxide Level 28 mmol/L (21-32) Anion Gap 10 (6-14) Blood Urea Nitrogen 32 mg/dL (7-20) Creatinine 5.9 mg/dL (0.6-1.0) Estimated GFR (Cockcroft-Gault) 7.0 Glucose Level 193 mg/dL (70-99) Calcium Level 9.0 mg/dL (8.5-10.1) White Blood Count 8.4 x10^3/uL (4.0-11.0) Red Blood Count 2.66 x10^6/uL (3.50-5.40) Hemoglobin 8.9 g/dL (12.0-15.5) Hematocrit 27.3 % (36.0-47.0) Mean Corpuscular Volume 103 fL (79-100) Mean Corpuscular Hemoglobin 33 pg (25-35) Mean Corpuscular Hemoglobin Concent 33 g/dL (31-37) Red Cell Distribution Width 15.0 % (11.5-14.5) Platelet Count 130 x10^3/uL (140-400) Neutrophils (%) (Auto) 77 % (31-73) Lymphocytes (%) (Auto) 13 % (24-48) Monocytes (%) (Auto) 9 % (0-9) Eosinophils (%) (Auto) 1 % (0-3) Basophils (%) (Auto) 0 % (0-3) Neutrophils # (Auto) 6.5 x10^3uL (1.8-7.7) Lymphocytes # (Auto) 1.1 x10^3/uL (1.0-4.8) Monocytes # (Auto) 0.7 x10^3/uL (0.0-1.1) Eosinophils # (Auto) 0.1 x10^3/uL (0.0-0.7) Basophils # (Auto) 0.0 x10^3/uL (0.0-0.2) Test 12/24/18 17:04 12/24/18 21:33 12/25/18 02:10 12/25/18 07:29 Glucose (Fingerstick) 213 mg/dL (70-99) 92 mg/dL (70-99) 128 mg/dL (70-99) White Blood Count 7.8 x10^3/uL (4.0-11.0) Red Blood Count 2.48 x10^6/uL (3.50-5.40) Hemoglobin 8.5 g/dL (12.0-15.5) Hematocrit 25.2 % (36.0-47.0) Mean Corpuscular Volume 102 fL (79-100) Mean Corpuscular Hemoglobin 34 pg (25-35) Mean Corpuscular Hemoglobin Concent 34 g/dL (31-37) Red Cell Distribution Width 14.9 % (11.5-14.5) Platelet Count 157 x10^3/uL (140-400) Neutrophils (%) (Auto) 73 % (31-73) Lymphocytes (%) (Auto) 15 % (24-48) Monocytes (%) (Auto) 9 % (0-9) Eosinophils (%) (Auto) 2 % (0-3) Basophils (%) (Auto) 0 % (0-3) Neutrophils # (Auto) 5.7 x10^3uL (1.8-7.7) Lymphocytes # (Auto) 1.2 x10^3/uL (1.0-4.8) Monocytes # (Auto) 0.7 x10^3/uL (0.0-1.1) Eosinophils # (Auto) 0.2 x10^3/uL (0.0-0.7) Basophils # (Auto) 0.0 x10^3/uL (0.0-0.2) Sodium Level 138 mmol/L (136-145) Potassium Level 4.7 mmol/L (3.5-5.1) Chloride Level 99 mmol/L (98-107) Carbon Dioxide Level 29 mmol/L (21-32) Anion Gap 10 (6-14) Blood Urea Nitrogen 45 mg/dL (7-20) Creatinine 7.3 mg/dL (0.6-1.0) Estimated GFR (Cockcroft-Gault) 5.4 Glucose Level 150 mg/dL (70-99) Calcium Level 9.0 mg/dL (8.5-10.1) Test 12/25/18 07:43 Glucose (Fingerstick) 128 mg/dL (70-99) Laboratory Tests Test 12/24/18 11:49 12/24/18 14:45 12/24/18 17:04 12/24/18 21:33 Glucose (Fingerstick) 167 mg/dL (70-99) 213 mg/dL (70-99) 92 mg/dL (70-99) White Blood Count 8.4 x10^3/uL (4.0-11.0) Red Blood Count 2.66 x10^6/uL (3.50-5.40) Hemoglobin 8.9 g/dL (12.0-15.5) Hematocrit 27.3 % (36.0-47.0) Mean Corpuscular Volume 103 fL (79-100) Mean Corpuscular Hemoglobin 33 pg (25-35) Mean Corpuscular Hemoglobin Concent 33 g/dL (31-37) Red Cell Distribution Width 15.0 % (11.5-14.5) Platelet Count 130 x10^3/uL (140-400) Neutrophils (%) (Auto) 77 % (31-73) Lymphocytes (%) (Auto) 13 % (24-48) Monocytes (%) (Auto) 9 % (0-9) Eosinophils (%) (Auto) 1 % (0-3) Basophils (%) (Auto) 0 % (0-3) Neutrophils # (Auto) 6.5 x10^3uL (1.8-7.7) Lymphocytes # (Auto) 1.1 x10^3/uL (1.0-4.8) Monocytes # (Auto) 0.7 x10^3/uL (0.0-1.1) Eosinophils # (Auto) 0.1 x10^3/uL (0.0-0.7) Basophils # (Auto) 0.0 x10^3/uL (0.0-0.2) Test 12/25/18 02:10 12/25/18 07:29 12/25/18 07:43 Glucose (Fingerstick) 128 mg/dL (70-99) 128 mg/dL (70-99) White Blood Count 7.8 x10^3/uL (4.0-11.0) Red Blood Count 2.48 x10^6/uL (3.50-5.40) Hemoglobin 8.5 g/dL (12.0-15.5) Hematocrit 25.2 % (36.0-47.0) Mean Corpuscular Volume 102 fL (79-100) Mean Corpuscular Hemoglobin 34 pg (25-35) Mean Corpuscular Hemoglobin Concent 34 g/dL (31-37) Red Cell Distribution Width 14.9 % (11.5-14.5) Platelet Count 157 x10^3/uL (140-400) Neutrophils (%) (Auto) 73 % (31-73) Lymphocytes (%) (Auto) 15 % (24-48) Monocytes (%) (Auto) 9 % (0-9) Eosinophils (%) (Auto) 2 % (0-3) Basophils (%) (Auto) 0 % (0-3) Neutrophils # (Auto) 5.7 x10^3uL (1.8-7.7) Lymphocytes # (Auto) 1.2 x10^3/uL (1.0-4.8) Monocytes # (Auto) 0.7 x10^3/uL (0.0-1.1) Eosinophils # (Auto) 0.2 x10^3/uL (0.0-0.7) Basophils # (Auto) 0.0 x10^3/uL (0.0-0.2) Sodium Level 138 mmol/L (136-145) Potassium Level 4.7 mmol/L (3.5-5.1) Chloride Level 99 mmol/L (98-107) Carbon Dioxide Level 29 mmol/L (21-32) Anion Gap 10 (6-14) Blood Urea Nitrogen 45 mg/dL (7-20) Creatinine 7.3 mg/dL (0.6-1.0) Estimated GFR (Cockcroft-Gault) 5.4 Glucose Level 150 mg/dL (70-99) Calcium Level 9.0 mg/dL (8.5-10.1) Medications Current Medications Acetaminophen/ Hydrocodone Bitart (Lortab 5/325) 1 tab 1X ONCE PO Last administered on 12/21/18at 01:00; Start 12/21/18 at 01:00; Stop 12/21/18 at 01:01; Status DC Fentanyl Citrate (Fentanyl 2ml Vial) 50 mcg 1X ONCE IV Last administered on 12/21/18at 02:30; Start 12/21/18 at 02:30; Stop 12/21/18 at 02:31; Status DC Ondansetron HCl (Zofran) 4 mg 1X ONCE IV Last administered on 12/21/18at 02:59; Start 12/21/18 at 03:30; Stop 12/21/18 at 03:31; Status DC Ondansetron HCl (Zofran) 4 mg PRN Q8HRS PRN IV NAUSEA/VOMITING 1ST CHOICE; Start 12/21/18 at 03:30; Stop 12/22/18 at 03:29; Status DC Fentanyl Citrate (Fentanyl 2ml Vial) 25 mcg PRN Q2HRS PRN IV SEVERE PAIN; Start 12/21/18 at 03:30 Insulin Human Lispro (HumaLOG) 0-5 UNITS TIDWMEALS SQ Last administered on 12/22/18at 17:19; Start 12/21/18 at 08:00; Stop 12/22/18 at 18:14; Status DC Dextrose (Dextrose 50%-Water Syringe) 12.5 gm PRN Q15MIN PRN IV SEE COMMENTS; Start 12/21/18 at 03:30 Famotidine (Pepcid Vial) 20 mg 1X ONCE IVP Last administered on 12/21/18at 04:16; Start 12/21/18 at 04:00; Stop 12/21/18 at 04:01; Status DC Ondansetron HCl (Zofran) 4 mg 1X ONCE IV Last administered on 12/21/18at 04:14; Start 12/21/18 at 04:00; Stop 12/21/18 at 04:01; Status DC Sodium Chloride 1,000 ml @ 1,000 mls/hr Q1H PRN IV hypotension; Start 12/21/18 at 08:24; Stop 12/21/18 at 14:23; Status DC Albumin Human 200 ml @ 200 mls/hr 1X PRN PRN IV Hypotension; Start 12/21/18 at 08:30; Stop 12/21/18 at 14:29; Status DC Sodium Chloride (Normal Saline Flush) 10 ml 1X PRN PRN IV AP catheter pack; Start 12/21/18 at 08:30; Stop 12/22/18 at 08:29; Status DC Sodium Chloride (Normal Saline Flush) 10 ml 1X PRN PRN IV HOME HEALTH AID catheter pack; Start 12/21/18 at 08:30; Stop 12/22/18 at 08:29; Status DC Sodium Chloride 1,000 ml @ 400 mls/hr Q2H30M PRN IV PATENCY; Start 12/21/18 at 08:24; Stop 12/21/18 at 20:23; Status DC Info (PHARMACY MONITORING -- do not chart) 1 each PRN DAILY PRN MC SEE COMMENTS; Start 12/21/18 at 08:30; Status UNV Info (PHARMACY MONITORING -- do not chart) 1 each PRN DAILY PRN MC SEE COMMENTS; Start 12/21/18 at 08:30 Amoxicillin/ Clavulanate Potassium (Augmentin 875/ 125mg) 1 tab BID PO ; Start 12/21/18 at 21:00; Status Cancel Aspirin (Ecotrin) 81 mg DAILY08 PO Last administered on 12/25/18 08:33; Start 12/21/18 at 11:00 Insulin Glargine (Lantus) 6 units QHS SQ Last administered on 12/21/18 21:12; Start 12/21/18 at 21:00 Calcium Acetate (Phoslo) 1,334 mg TIDWMEALS PO Last administered on 12/25/18 08:33; Start 12/21/18 at 12:00 Vitamin B Complex/ Vitamin C (Funmi-Hannah) 1 tab DAILY PO Last administered on 12/25/18 08:33; Start 12/21/18 at 11:00 Amoxicillin/ Clavulanate Potassium (Augmentin 500/ 125mg) 1 tab Q24H PO Last administered on 12/25/18 08:33; Start 12/22/18 at 09:00 Sevelamer Carbonate (Renvela) 1,600 mg TIDWMEALS PO Last administered on 12/25/18 08:33; Start 12/21/18 at 12:00 Nystatin (Nystop) 1 amy BID TP Last administered on 12/25/18 08:34; Start 12/21/18 at 14:00 Acetaminophen/ Hydrocodone Bitart (Lortab 5/325) 1 tab PRN Q4HRS PRN PO MODERATE PAIN Last administered on 12/24/18 02:24; Start 12/21/18 at 14:30 Heparin Sodium (Porcine) (Heparin Sodium) 5,000 unit Q12HR SQ Last administered on 12/25/18 08:42; Start 12/22/18 at 11:00 Docusate Sodium (Colace) 100 mg PRN DAILY PRN PO CONSTIPATION; Start 12/22/18 at 13:00 Insulin Human Lispro (HumaLOG) 6 units TIDAC SQ Last administered on 12/24/18at 17:46; Start 12/23/18 at 07:30 Nystatin (Mycostatin) 1 amy PRN BID PRN TP RASH; Start 12/22/18 at 18:15 Lactobacillus Rhamnosus (Culturelle) 1 cap BID PO Last administered on 12/25/18at 08:33; Start 12/22/18 at 21:00 Sodium Chloride 500 ml @ 500 mls/hr 1X ONCE IV ; Start 12/22/18 at 21:00; Stop 12/22/18 at 21:59; Status DC Info (PHARMACY MONITORING -- do not chart) 1 each PRN DAILY PRN MC SEE COMMENTS; Start 12/23/18 at 10:30; Status UNV Info (PHARMACY MONITORING -- do not chart) 1 each PRN DAILY PRN MC SEE COMMENTS; Start 12/23/18 at 10:30; Status UNV Ondansetron HCl (Zofran) 4 mg PRN Q6HRS PRN IV NAUSEA/VOMITING Last administered on 12/24/18at 08:00; Start 12/24/18 at 07:45 Tramadol HCl (Ultram) 50 mg PRN Q6HRS PRN PO PAIN Last administered on 12/25/18at 09:19; Start 12/25/18 at 09:00 Active Scripts Active Estrace (Estradiol) 42.5 Gm Cream.appl 1 Amy VG 3X/WEEK 14 Days Reported Funmi-Hannah Rx Tablet (Vit B Cmplx 3/Fa/Vit C/Biotin) 1 Each Tablet 1 Each PO DAILY Amox Tr-K Clv 875-125 Mg Tab (Amoxicillin/Potassium Clav) 1 Each Tablet 1 Tab PO BID Novolog (Insulin Aspart) 100 Unit/1 Ml Cartridge 6 Unit SQ TIDAC Lantus Solostar (Insulin Glargine,Hum.rec.anlog) 100 Unit/1 Ml Insuln.pen 6 Unit SQ QHS [regrenex] TOP DAILY PRN Calcium Acetate 667 Mg Tablet 2 Cap PO TIDAC Aspir 81 (Aspirin) 81 Mg Tablet. 1 Tab PO DAILY08 Vitals/I & O Vital Sign - Last 24 Hours 12/24/18 12/24/18 12/24/18 12/24/18 11:00 15:00 19:00 20:05 Temp 97.9 98.6 99.1 97.9 98.6 99.1 Pulse 101 90 91 Resp 16 18 18 B/P (MAP) 156/71 (99) 103/50 (67) 120/50 (73) Pulse Ox 93 99 97 O2 Delivery Room Air Room Air Room Air Room Air 12/24/18 12/25/18 12/25/18 12/25/18 23:00 03:00 07:00 08:00 Temp 99.7 98.5 98.6 99.7 98.5 98.6 Pulse 90 92 87 Resp 18 18 18 B/P (MAP) 106/43 (64) 123/61 (81) 127/58 (81) Pulse Ox 98 97 96 O2 Delivery Room Air Room Air Room Air Room Air 12/25/18 09:19 O2 Delivery Room Air FLORI DAVIES MD Dec 25, 2018 10:41
[2018-12-25 11:00] VITALS: BP 114/50
--- NOTE | 2018-12-25 12:06 | NUR ---
SW following. Discussed with RN, pt denied SNU and HH. Plan to discharge home with family and self care. No SW needs.
[2018-12-25 15:00] VITALS: BP 131/59
--- NOTE | 2018-12-25 16:19 | NUR ---
SW following. RN advised pt has changed her mind about going to SNU, SW left voicemail for pt's daughter to determine preference. SW met with pt, pt told SW the doctor had told her she has until Tuesday so she did not want to make a decision yet about which facility. SW advised this might not be the case and that we would like to get the next steps going and insurance approval for whenever she is ready to discharge. TADEO confirmed with Dr. Wilson about when pt would be ready for discharge, Dr. Wilson advised pt is ready now. SW met with pt again and explained discussion with Dr. Wilson. Pt stated she would go to [facility] if they have single occupancy rooms. [facility]O confirmed with [facility] and faxed referral. [facility] has clinically accepted pt and have submitted for insurance authorization. RN notified, [facility] will continue to follow.
[2018-12-25 19:00] VITALS: BP 132/58
[2018-12-25] MEDS: INSULIN GLARGINE 300 UNITS/3 ML INSULN.PEN. SQ SCH (21:00)
[2018-12-25 23:00] VITALS: BP 88/37
[2018-12-26 03:22] VITALS: BP 103/68
[2018-12-26 04:21] LABS: BASO % 1 % (0-3); EOS # 0.3 x10^3/uL (0.0-0.7); EOS % 4 % (0-3); HEMATOCRIT 26.1 % (36.0-47.0); HEMOGLOBIN 8.6 g/dL (12.0-15.5); LYMPH # 1.6 x10^3/uL (1.0-4.8); LYMPH % 24 % (24-48); MEAN CORPUSCULAR HEMOGLOBIN 34 pg (25-35); MEAN CORPUSCULAR HGB CONC 33 g/dL (31-37); MEAN CORPUSCULAR VOLUME 101 fL (79-100); MONO # 0.7 x10^3/uL (0.0-1.1); MONO % 11 % (0-9); NEUT # 4.2 x10^3uL (1.8-7.7); NEUT % 62 % (31-73); PLATELET COUNT 172 x10^3/uL (140-400); RED BLOOD COUNT 2.57 x10^6/uL (3.50-5.40); WHITE BLOOD COUNT 6.9 x10^3/uL (4.0-11.0)
[2018-12-26 05:16] LABS: CREATININE 8.2 mg/dL (0.6-1.0); GFR 4.8; POTASSIUM 4.9 mmol/L (3.5-5.1)
[2018-12-26] MEDS: ONDANSETRON PF 4 MG/2 ML VIAL. IV PRN (06:37)
[2018-12-26 07:00] VITALS: BP_SYST 141; BP_SYST 144; BP_DIAS 60
[2018-12-26] MEDS ORDERED: ALBUMIN HUMAN 25% 200 ML IV PRN (07:15)
[2018-12-26] MEDS ORDERED: ACETAMINOPHEN 500 MG TABLET PO PRN (07:15)
[2018-12-26] MEDS ORDERED: IV NORMAL SALINE 1000ML BAG 1,000 ML IV PRN ×2 (07:15)
[2018-12-26] MEDS ORDERED: DIALYSIS PATIENT. MC PRN (07:15)
[2018-12-26] MEDS ORDERED: diphenhydrAMINE 50 MG/ML VIAL IV PRN ×2 (07:15)
[2018-12-26] MEDS: INSULIN LISPRO 300 UNITS/3 ML INSULN.PEN. SQ SCH ×3 (07:30→16:30)
[2018-12-26] MEDS: CALCIUM ACETATE 667 MG CAPSULE PO SCH ×2 (08:00→13:07)
[2018-12-26] MEDS: SEVELAMER CARBONATE 800 MG TABLET. PO SCH ×2 (08:00→13:07)
--- NOTE | 2018-12-26 12:25 | PDOC ---
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 Anemia- Stable Aranesp as per protocol DM- Per primary COMMENT/RELEVANT DATA Meds Current Medications Medications (Trade) Dose Ordered Sig/Claudette Start Time Stop Time Status Last Admin Dose Admin Acetaminophen (Tylenol) 500 mg 1X PRN PRN 12/26/18 07:15 12/27/18 07:14 Acetaminophen/ Hydrocodone Bitart (Lortab 5/325) 1 tab PRN Q4HRS PRN 12/21/18 14:30 12/24/18 02:24 1 TAB Albumin Human 200 ml @ 200 mls/hr 1X PRN PRN 12/26/18 07:15 12/26/18 13:14 Amoxicillin/ Clavulanate Potassium (Augmentin 500/ 125mg) 1 tab Q24H 12/22/18 09:00 12/25/18 08:33 1 TAB Amoxicillin/ Clavulanate Potassium (Augmentin 875/ 125mg) 1 tab BID 12/21/18 21:00 Cancel Aspirin (Ecotrin) 81 mg DAILY08 12/21/18 11:00 12/25/18 08:33 81 MG Calcium Acetate (Phoslo) 1,334 mg TIDWMEALS 12/21/18 12:00 12/25/18 16:01 1,334 MG Dextrose (Dextrose 50%-Water Syringe) 12.5 gm PRN Q15MIN PRN 12/21/18 03:30 Diphenhydramine HCl (Benadryl) 25 mg 1X PRN PRN 12/26/18 07:15 12/27/18 07:14 Docusate Sodium (Colace) 100 mg PRN DAILY PRN 4/26/19 13:00 Famotidine (Pepcid Vial) 20 mg 1X ONCE 12/21/18 04:00 12/21/18 04:01 DC 12/21/18 04:16 20 MG Fentanyl Citrate (Fentanyl 2ml Vial) 25 mcg PRN Q2HRS PRN 12/21/18 03:30 Heparin Sodium (Porcine) (Heparin Sodium) 5,000 unit Q12HR 12/22/18 11:00 12/25/18 20:33 5,000 UNIT Info (PHARMACY MONITORING -- do not chart) 1 each PRN DAILY PRN 12/26/18 07:15 Insulin Glargine (Lantus) 6 units QHS 12/21/18 21:00 12/21/18 21:12 6 UNITS Insulin Human Lispro (HumaLOG) 6 units TIDAC 12/23/18 07:30 12/25/18 17:34 6 UNITS Lactobacillus Rhamnosus (Culturelle) 1 cap BID 12/22/18 21:00 12/25/18 20:22 1 CAP Nystatin (Mycostatin) 1 amy PRN BID PRN 12/22/18 18:15 Nystatin (Nystop) 1 amy BID 12/21/18 14:00 12/25/18 08:34 1 AMY Ondansetron HCl (Zofran) 4 mg PRN Q6HRS PRN 12/24/18 07:45 12/26/18 06:37 4 MG Sevelamer Carbonate (Renvela) 1,600 mg TIDWMEALS 12/21/18 12:00 12/25/18 16:01 1,600 MG Sodium Chloride 1,000 ml @ 400 mls/hr Q2H30M PRN 12/26/18 07:15 12/26/18 19:14 Sodium Chloride (Normal Saline Flush) 10 ml 1X PRN PRN 12/21/18 08:30 12/22/18 08:29 DC Tramadol HCl (Ultram) 50 mg PRN Q6HRS PRN 12/25/18 09:00 12/25/18 22:05 50 MG Vitamin B Complex/ Vitamin C (Funmi-Hannah) 1 tab DAILY 12/21/18 11:00 12/25/18 08:33 1 TAB Lab Laboratory Tests Test 12/25/18 16:37 12/25/18 21:01 12/26/18 02:29 12/26/18 03:50 Glucose (Fingerstick) 232 mg/dL (70-99) 134 mg/dL (70-99) 132 mg/dL (70-99) White Blood Count 6.9 x10^3/uL (4.0-11.0) Red Blood Count 2.57 x10^6/uL (3.50-5.40) Hemoglobin 8.6 g/dL (12.0-15.5) Hematocrit 26.1 % (36.0-47.0) Mean Corpuscular Volume 101 fL (79-100) Mean Corpuscular Hemoglobin 34 pg (25-35) Mean Corpuscular Hemoglobin Concent 33 g/dL (31-37) Red Cell Distribution Width 15.0 % (11.5-14.5) Platelet Count 172 x10^3/uL (140-400) Neutrophils (%) (Auto) 62 % (31-73) Lymphocytes (%) (Auto) 24 % (24-48) Monocytes (%) (Auto) 11 % (0-9) Eosinophils (%) (Auto) 4 % (0-3) Basophils (%) (Auto) 1 % (0-3) Neutrophils # (Auto) 4.2 x10^3uL (1.8-7.7) Lymphocytes # (Auto) 1.6 x10^3/uL (1.0-4.8) Monocytes # (Auto) 0.7 x10^3/uL (0.0-1.1) Eosinophils # (Auto) 0.3 x10^3/uL (0.0-0.7) Basophils # (Auto) 0.0 x10^3/uL (0.0-0.2) Sodium Level 138 mmol/L (136-145) Potassium Level 4.9 mmol/L (3.5-5.1) Chloride Level 98 mmol/L (98-107) Carbon Dioxide Level 30 mmol/L (21-32) Anion Gap 10 (6-14) Blood Urea Nitrogen 55 mg/dL (7-20) Creatinine 8.2 mg/dL (0.6-1.0) Estimated GFR (Cockcroft-Gault) 4.8 Glucose Level 156 mg/dL (70-99) Calcium Level 9.0 mg/dL (8.5-10.1) Test 12/26/18 06:29 12/26/18 07:52 Glucose (Fingerstick) 154 mg/dL (70-99) 166 mg/dL (70-99) Results All relevant outside records, renal labs, imaging studies, telemetry/EKG's were reviewed. LUCIO TORRES MD Dec 26, 2018 12:25
--- NOTE | 2018-12-26 12:45 | NUR ---
[facility] following. Discussed with RN, pt is ready to discharge, but is in dialysis this morning. TADEO contacted pt's daughter Daniella to discuss discharge planning, Daniella wanted [facility] to make sure pt's can stay the night there. T[facility]O confirmed with Rissa this was okay, Rissa pt's is okay to stay as they do not have visiting hours, but he will have to pay $5 a meal if he wants to eat there. TADEO phoned Daniella to advise of information, Daniella is going to tell pt when she is finished with dialysis today. On track for discharge this afternoon after dialysis, T[facility] awaiting discharge paperwork for SNU, and scripts. [facility] will continue to follow. Addendum: 12/26/18 at 1536 by MARITA PIEDRA [facility]O spoke with Daniella to advise [facility] will transport pt between 1545 and 1615, Daniella advised pt is not aware of leaving today. Daniella called [facility] again to advise she is coming to help collect pt's belongings and assist with the transfer. TADEO requested Rissa push back the transportation back to [phone]. RN notified.
--- NOTE | 2018-12-26 12:58 | PDOC ---
PROGRESS NOTES Chief Complaint Chief Complaint fall, L pelvic fx History of Present Illness History of Present Illness Patient was seen and examined this morning, pain not better today, INTRACTABLE WILL TRY TRAMADOL nauseated and depressed. Discussed her case with all of her family members . consult GI and continue current treatment. Acute appearing displaced fracture of the left side of the pelvis involving both the inferior and superior pubic ramus and extending near the region of the pubic symphysis. There is adjacent hematoma within the soft tissues. Partial visualization of right-sided hydronephrosis and bilateral hydroureter Wall thickening of the urinary bladder Could be infectious in nature with other causes such as bladder wall mass will need cystoscopy Assessment/Plan Assessment/Plan Yeast to perineum: nystatin powder BID A follow up appointment has been arranged for cystoscopy with Dr. Vang as an outpatient on 01/03/19 Vitals Vitals Vital Signs Date Time Temp Pulse Resp B/P (MAP) Pulse Ox O2 Delivery O2 Flow Rate FiO2 12/26/18 07:00 98.1 94 18 141/60 (87) 97 Room Air 98.1 Physical Exam General: Alert, Oriented X3, Cooperative, No acute distress, mild distress, Other (nauseated) Heart: Regular rate, Normal S1, Normal S2, Other (thready pulse) Lungs: Clear Abdomen: Normal bowel sounds, Soft, No tenderness Extremities: No cyanosis Skin: No breakdown Labs LABS Laboratory Tests Test 12/25/18 16:37 12/25/18 21:01 12/26/18 02:29 12/26/18 03:50 Glucose (Fingerstick) 232 mg/dL (70-99) 134 mg/dL (70-99) 132 mg/dL (70-99) White Blood Count 6.9 x10^3/uL (4.0-11.0) Red Blood Count 2.57 x10^6/uL (3.50-5.40) Hemoglobin 8.6 g/dL (12.0-15.5) Hematocrit 26.1 % (36.0-47.0) Mean Corpuscular Volume 101 fL (79-100) Mean Corpuscular Hemoglobin 34 pg (25-35) Mean Corpuscular Hemoglobin Concent 33 g/dL (31-37) Red Cell Distribution Width 15.0 % (11.5-14.5) Platelet Count 172 x10^3/uL (140-400) Neutrophils (%) (Auto) 62 % (31-73) Lymphocytes (%) (Auto) 24 % (24-48) Monocytes (%) (Auto) 11 % (0-9) Eosinophils (%) (Auto) 4 % (0-3) Basophils (%) (Auto) 1 % (0-3) Neutrophils # (Auto) 4.2 x10^3uL (1.8-7.7) Lymphocytes # (Auto) 1.6 x10^3/uL (1.0-4.8) Monocytes # (Auto) 0.7 x10^3/uL (0.0-1.1) Eosinophils # (Auto) 0.3 x10^3/uL (0.0-0.7) Basophils # (Auto) 0.0 x10^3/uL (0.0-0.2) Sodium Level 138 mmol/L (136-145) Potassium Level 4.9 mmol/L (3.5-5.1) Chloride Level 98 mmol/L (98-107) Carbon Dioxide Level 30 mmol/L (21-32) Anion Gap 10 (6-14) Blood Urea Nitrogen 55 mg/dL (7-20) Creatinine 8.2 mg/dL (0.6-1.0) Estimated GFR (Cockcroft-Gault) 4.8 Glucose Level 156 mg/dL (70-99) Calcium Level 9.0 mg/dL (8.5-10.1) Test 12/26/18 06:29 12/26/18 07:52 Glucose (Fingerstick) 154 mg/dL (70-99) 166 mg/dL (70-99) Assessment and Plan Assessmemt and Plan Problems Medical Problems: (1) Pelvis fracture Status: Acute Comment Review of Relevant I have reviewed the following items anastasiya (where applicable) has been applied. Labs Laboratory Tests Test 12/24/18 14:45 12/24/18 17:04 12/24/18 21:33 12/25/18 02:10 White Blood Count 8.4 x10^3/uL (4.0-11.0) Red Blood Count 2.66 x10^6/uL (3.50-5.40) Hemoglobin 8.9 g/dL (12.0-15.5) Hematocrit 27.3 % (36.0-47.0) Mean Corpuscular Volume 103 fL (79-100) Mean Corpuscular Hemoglobin 33 pg (25-35) Mean Corpuscular Hemoglobin Concent 33 g/dL (31-37) Red Cell Distribution Width 15.0 % (11.5-14.5) Platelet Count 130 x10^3/uL (140-400) Neutrophils (%) (Auto) 77 % (31-73) Lymphocytes (%) (Auto) 13 % (24-48) Monocytes (%) (Auto) 9 % (0-9) Eosinophils (%) (Auto) 1 % (0-3) Basophils (%) (Auto) 0 % (0-3) Neutrophils # (Auto) 6.5 x10^3uL (1.8-7.7) Lymphocytes # (Auto) 1.1 x10^3/uL (1.0-4.8) Monocytes # (Auto) 0.7 x10^3/uL (0.0-1.1) Eosinophils # (Auto) 0.1 x10^3/uL (0.0-0.7) Basophils # (Auto) 0.0 x10^3/uL (0.0-0.2) Glucose (Fingerstick) 213 mg/dL (70-99) 92 mg/dL (70-99) 128 mg/dL (70-99) Test 12/25/18 07:29 12/25/18 07:43 12/25/18 11:41 12/25/18 16:37 White Blood Count 7.8 x10^3/uL (4.0-11.0) Red Blood Count 2.48 x10^6/uL (3.50-5.40) Hemoglobin 8.5 g/dL (12.0-15.5) Hematocrit 25.2 % (36.0-47.0) Mean Corpuscular Volume 102 fL (79-100) Mean Corpuscular Hemoglobin 34 pg (25-35) Mean Corpuscular Hemoglobin Concent 34 g/dL (31-37) Red Cell Distribution Width 14.9 % (11.5-14.5) Platelet Count 157 x10^3/uL (140-400) Neutrophils (%) (Auto) 73 % (31-73) Lymphocytes (%) (Auto) 15 % (24-48) Monocytes (%) (Auto) 9 % (0-9) Eosinophils (%) (Auto) 2 % (0-3) Basophils (%) (Auto) 0 % (0-3) Neutrophils # (Auto) 5.7 x10^3uL (1.8-7.7) Lymphocytes # (Auto) 1.2 x10^3/uL (1.0-4.8) Monocytes # (Auto) 0.7 x10^3/uL (0.0-1.1) Eosinophils # (Auto) 0.2 x10^3/uL (0.0-0.7) Basophils # (Auto) 0.0 x10^3/uL (0.0-0.2) Sodium Level 138 mmol/L (136-145) Potassium Level 4.7 mmol/L (3.5-5.1) Chloride Level 99 mmol/L (98-107) Carbon Dioxide Level 29 mmol/L (21-32) Anion Gap 10 (6-14) Blood Urea Nitrogen 45 mg/dL (7-20) Creatinine 7.3 mg/dL (0.6-1.0) Estimated GFR (Cockcroft-Gault) 5.4 Glucose Level 150 mg/dL (70-99) Calcium Level 9.0 mg/dL (8.5-10.1) Glucose (Fingerstick) 128 mg/dL (70-99) 165 mg/dL (70-99) 232 mg/dL (70-99) Test 12/25/18 21:01 12/26/18 02:29 12/26/18 03:50 12/26/18 06:29 Glucose (Fingerstick) 134 mg/dL (70-99) 132 mg/dL (70-99) 154 mg/dL (70-99) White Blood Count 6.9 x10^3/uL (4.0-11.0) Red Blood Count 2.57 x10^6/uL (3.50-5.40) Hemoglobin 8.6 g/dL (12.0-15.5) Hematocrit 26.1 % (36.0-47.0) Mean Corpuscular Volume 101 fL (79-100) Mean Corpuscular Hemoglobin 34 pg (25-35) Mean Corpuscular Hemoglobin Concent 33 g/dL (31-37) Red Cell Distribution Width 15.0 % (11.5-14.5) Platelet Count 172 x10^3/uL (140-400) Neutrophils (%) (Auto) 62 % (31-73) Lymphocytes (%) (Auto) 24 % (24-48) Monocytes (%) (Auto) 11 % (0-9) Eosinophils (%) (Auto) 4 % (0-3) Basophils (%) (Auto) 1 % (0-3) Neutrophils # (Auto) 4.2 x10^3uL (1.8-7.7) Lymphocytes # (Auto) 1.6 x10^3/uL (1.0-4.8) Monocytes # (Auto) 0.7 x10^3/uL (0.0-1.1) Eosinophils # (Auto) 0.3 x10^3/uL (0.0-0.7) Basophils # (Auto) 0.0 x10^3/uL (0.0-0.2) Sodium Level 138 mmol/L (136-145) Potassium Level 4.9 mmol/L (3.5-5.1) Chloride Level 98 mmol/L (98-107) Carbon Dioxide Level 30 mmol/L (21-32) Anion Gap 10 (6-14) Blood Urea Nitrogen 55 mg/dL (7-20) Creatinine 8.2 mg/dL (0.6-1.0) Estimated GFR (Cockcroft-Gault) 4.8 Glucose Level 156 mg/dL (70-99) Calcium Level 9.0 mg/dL (8.5-10.1) Test 12/26/18 07:52 Glucose (Fingerstick) 166 mg/dL (70-99) Laboratory Tests Test 12/25/18 16:37 12/25/18 21:01 12/26/18 02:29 12/26/18 03:50 Glucose (Fingerstick) 232 mg/dL (70-99) 134 mg/dL (70-99) 132 mg/dL (70-99) White Blood Count 6.9 x10^3/uL (4.0-11.0) Red Blood Count 2.57 x10^6/uL (3.50-5.40) Hemoglobin 8.6 g/dL (12.0-15.5) Hematocrit 26.1 % (36.0-47.0) Mean Corpuscular Volume 101 fL (79-100) Mean Corpuscular Hemoglobin 34 pg (25-35) Mean Corpuscular Hemoglobin Concent 33 g/dL (31-37) Red Cell Distribution Width 15.0 % (11.5-14.5) Platelet Count 172 x10^3/uL (140-400) Neutrophils (%) (Auto) 62 % (31-73) Lymphocytes (%) (Auto) 24 % (24-48) Monocytes (%) (Auto) 11 % (0-9) Eosinophils (%) (Auto) 4 % (0-3) Basophils (%) (Auto) 1 % (0-3) Neutrophils # (Auto) 4.2 x10^3uL (1.8-7.7) Lymphocytes # (Auto) 1.6 x10^3/uL (1.0-4.8) Monocytes # (Auto) 0.7 x10^3/uL (0.0-1.1) Eosinophils # (Auto) 0.3 x10^3/uL (0.0-0.7) Basophils # (Auto) 0.0 x10^3/uL (0.0-0.2) Sodium Level 138 mmol/L (136-145) Potassium Level 4.9 mmol/L (3.5-5.1) Chloride Level 98 mmol/L (98-107) Carbon Dioxide Level 30 mmol/L (21-32) Anion Gap 10 (6-14) Blood Urea Nitrogen 55 mg/dL (7-20) Creatinine 8.2 mg/dL (0.6-1.0) Estimated GFR (Cockcroft-Gault) 4.8 Glucose Level 156 mg/dL (70-99) Calcium Level 9.0 mg/dL (8.5-10.1) Test 12/26/18 06:29 12/26/18 07:52 Glucose (Fingerstick) 154 mg/dL (70-99) 166 mg/dL (70-99) Medications Current Medications Acetaminophen/ Hydrocodone Bitart (Lortab 5/325) 1 tab 1X ONCE PO Last administered on 12/21/18at 01:00; Start 12/21/18 at 01:00; Stop 12/21/18 at 01:01; Status DC Fentanyl Citrate (Fentanyl 2ml Vial) 50 mcg 1X ONCE IV Last administered on 12/21/18at 02:30; Start 12/21/18 at 02:30; Stop 12/21/18 at 02:31; Status DC Ondansetron HCl (Zofran) 4 mg 1X ONCE IV Last administered on 12/21/18at 02:59; Start 12/21/18 at 03:30; Stop 12/21/18 at 03:31; Status DC Ondansetron HCl (Zofran) 4 mg PRN Q8HRS PRN IV NAUSEA/VOMITING 1ST CHOICE; Start 12/21/18 at 03:30; Stop 12/22/18 at 03:29; Status DC Fentanyl Citrate (Fentanyl 2ml Vial) 25 mcg PRN Q2HRS PRN IV SEVERE PAIN; Start 12/21/18 at 03:30 Insulin Human Lispro (HumaLOG) 0-5 UNITS TIDWMEALS SQ Last administered on 12/22/18at 17:19; Start 12/21/18 at 08:00; Stop 12/22/18 at 18:14; Status DC Dextrose (Dextrose 50%-Water Syringe) 12.5 gm PRN Q15MIN PRN IV SEE COMMENTS; Start 12/21/18 at 03:30 Famotidine (Pepcid Vial) 20 mg 1X ONCE IVP Last administered on 12/21/18at 04:16; Start 12/21/18 at 04:00; Stop 12/21/18 at 04:01; Status DC Ondansetron HCl (Zofran) 4 mg 1X ONCE IV Last administered on 12/21/18at 04:14; Start 12/21/18 at 04:00; Stop 12/21/18 at 04:01; Status DC Sodium Chloride 1,000 ml @ 1,000 mls/hr Q1H PRN IV hypotension; Start 12/21/18 at 08:24; Stop 12/21/18 at 14:23; Status DC Albumin Human 200 ml @ 200 mls/hr 1X PRN PRN IV Hypotension; Start 12/21/18 at 08:30; Stop 12/21/18 at 14:29; Status DC Sodium Chloride (Normal Saline Flush) 10 ml 1X PRN PRN IV AP catheter pack; Start 12/21/18 at 08:30; Stop 12/22/18 at 08:29; Status DC Sodium Chloride (Normal Saline Flush) 10 ml 1X PRN PRN IV FORGE HEATER catheter pack; Start 12/21/18 at 08:30; Stop 12/22/18 at 08:29; Status DC Sodium Chloride 1,000 ml @ 400 mls/hr Q2H30M PRN IV PATENCY; Start 12/21/18 at 08:24; Stop 12/21/18 at 20:23; Status DC Info (PHARMACY MONITORING -- do not chart) 1 each PRN DAILY PRN MC SEE COMMENTS; Start 12/21/18 at 08:30; Status UNV Info (PHARMACY MONITORING -- do not chart) 1 each PRN DAILY PRN MC SEE COMMENTS; Start 12/21/18 at 08:30; Status Cancel Amoxicillin/ Clavulanate Potassium (Augmentin 875/ 125mg) 1 tab BID PO ; Start 12/21/18 at 21:00; Status Cancel Aspirin (Ecotrin) 81 mg DAILY08 PO Last administered on 12/25/18 08:33; Start 12/21/18 at 11:00 Insulin Glargine (Lantus) 6 units QHS SQ Last administered on 12/21/18 21:12; Start 12/21/18 at 21:00 Calcium Acetate (Phoslo) 1,334 mg TIDWMEALS PO Last administered on 12/25/18 16:01; Start 12/21/18 at 12:00 Vitamin B Complex/ Vitamin C (Funmi-Hannah) 1 tab DAILY PO Last administered on 12/25/18 08:33; Start 12/21/18 at 11:00 Amoxicillin/ Clavulanate Potassium (Augmentin 500/ 125mg) 1 tab Q24H PO Last administered on 12/25/18 08:33; Start 12/22/18 at 09:00 Sevelamer Carbonate (Renvela) 1,600 mg TIDWMEALS PO Last administered on 12/25/18 16:01; Start 12/21/18 at 12:00 Nystatin (Nystop) 1 scotty BID TP Last administered on 12/25/18 08:34; Start 12/21/18 at 14:00 Acetaminophen/ Hydrocodone Bitart (Lortab 5/325) 1 tab PRN Q4HRS PRN PO MODERATE PAIN Last administered on 4/28/19at 02:24; Start 12/21/18 at 14:30 Heparin Sodium (Porcine) (Heparin Sodium) 5,000 unit Q12HR SQ Last administered on 12/25/18at 20:33; Start 12/22/18 at 11:00 Docusate Sodium (Colace) 100 mg PRN DAILY PRN PO CONSTIPATION; Start 12/22/18 at 13:00 Insulin Human Lispro (HumaLOG) 6 units TIDAC SQ Last administered on 12/25/18at 17:34; Start 12/23/18 at 07:30 Nystatin (Mycostatin) 1 scotty PRN BID PRN TP RASH; Start 12/22/18 at 18:15 Lactobacillus Rhamnosus (Culturelle) 1 cap BID PO Last administered on 12/25/18at 20:22; Start 12/22/18 at 21:00 Sodium Chloride 500 ml @ 500 mls/hr 1X ONCE IV ; Start 12/22/18 at 21:00; Stop 12/22/18 at 21:59; Status DC Info (PHARMACY MONITORING -- do not chart) 1 each PRN DAILY PRN MC SEE COMMENTS; Start 12/23/18 at 10:30; Status UNV Info (PHARMACY MONITORING -- do not chart) 1 each PRN DAILY PRN MC SEE COMMENT S; Start 12/23/18 at 10:30; Status UNV Ondansetron HCl (Zofran) 4 mg PRN Q6HRS PRN IV NAUSEA/VOMITING Last administered on 12/26/18at 06:37; Start 12/24/18 at 07:45 Tramadol HCl (Ultram) 50 mg PRN Q6HRS PRN PO PAIN Last administered on 12/25/18at 22:05; Start 12/25/18 at 09:00 Sodium Chloride 1,000 ml @ 1,000 mls/hr Q1H PRN IV hypotension; Start 12/26/18 at 07:15; Stop 12/26/18 at 13:14 Albumin Human 200 ml @ 200 mls/hr 1X PRN PRN IV Hypotension; Start 12/26/18 at 07:15; Stop 12/26/18 at 13:14 Acetaminophen (Tylenol) 500 mg 1X PRN PRN PO MILD PAIN / TEMP; Start 12/26/18 at 07:15; Stop 12/27/18 at 07:14 Diphenhydramine HCl (Benadryl) 25 mg 1X PRN PRN IV ITCHING; Start 12/26/18 at 07:15; Stop 12/27/18 at 07:14 Diphenhydramine HCl (Benadryl) 25 mg 1X PRN PRN IV ITCHING; Start 12/26/18 at 07:15; Stop 12/27/18 at 07:14 Sodium Chloride 1,000 ml @ 400 mls/hr Q2H30M PRN IV PATENCY; Start 12/26/18 at 07:15; Stop 12/26/18 at 19:14 Info (PHARMACY MONITORING -- do not chart) 1 each PRN DAILY PRN MC SEE COMMENTS; Start 12/26/18 at 07:15 Active Scripts Active Estrace (Estradiol) 42.5 Gm Cream.appl 1 Scotty VG 3X/WEEK 14 Days Reported Funmi-Hannah Rx Tablet (Vit B Cmplx 3/Fa/Vit C/Biotin) 1 Each Tablet 1 Each PO DAILY Amox Tr-K Clv 875-125 Mg Tab (Amoxicillin/Potassium Clav) 1 Each Tablet 1 Tab PO BID Novolog (Insulin Aspart) 100 Unit/1 Ml Cartridge 6 Unit SQ TIDAC Lantus Solostar (Insulin Glargine,Hum.rec.anlog) 100 Unit/1 Ml Insuln.pen 6 Unit SQ QHS [regrenex] TOP DAILY PRN Calcium Acetate 667 Mg Tablet 2 Cap PO TIDAC Aspir 81 (Aspirin) 81 Mg Tablet. 1 Tab PO DAILY08 Vitals/I & O Vital Sign - Last 24 Hours 12/25/18 12/25/18 12/25/18 12/25/18 15:00 16:01 19:00 19:40 Temp 98.5 97.8 98.5 97.8 Pulse 85 86 Resp 16 20 B/P (MAP) 131/59 (83) 132/58 (82) Pulse Ox 100 100 O2 Delivery Room Air Room Air Room Air Room Air 12/25/18 12/25/18 12/25/18 12/26/18 22:05 23:00 23:05 03:22 Temp 98.0 98.7 98.0 98.7 Pulse 88 83 Resp 16 20 B/P (MAP) 88/37 (54) 103/68 (80) Pulse Ox 98 98 O2 Delivery Room Air Room Air Room Air Room Air 12/26/18 07:00 Temp 98.1 98.1 Pulse 94 Resp 18 B/P (MAP) 141/60 (87) Pulse Ox 97 O2 Delivery Room Air Intake and Output 12/25/18 12/25/18 12/26/18 15:00 23:00 07:00 Intake Total 150 ml 200 ml Balance 150 ml 200 ml FLORI DAVIES MD Dec 26, 2018 12:58
--- NOTE | 2018-12-26 13:05 | PDOC3 ---
Discharge Summary Date of Admission: Dec 21, 2018 Date of Discharge: Dec 26, 2018 Follow-Up: 3-5 days Admitting Diagnosis comment: DISCHARGE DX fall, L pelvic fx ESRD ON DIALYSIS History of Present Illness History of Present Illness Patient was seen and examined this morning, CONTINUE PO TRAMADOL nauseated and depressed. Discussed her case with all of her family members . consult GI and continue current treatment. Acute appearing displaced fracture of the left side of the pelvis involving both the inferior and superior pubic ramus and extending near the region of the pubic symphysis. There is adjacent hematoma within the soft tissues. Partial visualization of right-sided hydronephrosis and bilateral hydroureter Wall thickening of the urinary bladder Could be infectious in nature with other causes such as bladder wall mass will need cystoscopy Assessment/Plan Assessment/Plan Yeast to perineum: nystatin powder BID A follow up appointment has been arranged for cystoscopy with Dr. Vang as an outpatient on 01/03/19 Vitals Vitals Vital Signs Date Time Temp Pulse Resp B/P (MAP) Pulse Ox O2 Delivery O2 Flow Rate FiO2 12/26/18 07:00 98.1 94 18 141/60 (87) 97 Room Air 98.1 Physical Exam General: Alert, Oriented X3, Cooperative, mild distress, Other (nauseated) Heart: Regular rate, Normal S1, Normal S2, Other (thready pulse) Lungs: Clear Abdomen: Normal bowel sounds, Soft, No tenderness Extremities: No cyanosis Skin: No breakdown FINAL DIAGNOSIS Problems Medical Problems: (1) Pelvis fracture Status: Acute Brief Hospital Course Ms. Beach is a 78 old [sex] who presented with [ PUBIC RAMUS FX ESRD] CONDITION AT DISCHARGE: Improved Discharge Medications Current Medications Acetaminophen/ Hydrocodone Bitart (Lortab 5/325) 1 tab 1X ONCE PO Last administered on 12/21/18at 01:00; Start 12/21/18 at 01:00; Stop 12/21/18 at 01 :01; Status DC Fentanyl Citrate (Fentanyl 2ml Vial) 50 mcg 1X ONCE IV Last administered on 12/21/18at 02:30; Start 12/21/18 at 02:30; Stop 12/21/18 at 02:31; Status DC Ondansetron HCl (Zofran) 4 mg 1X ONCE IV Last administered on 12/21/18at 02:59; Start 12/21/18 at 03:30; Stop 12/21/18 at 03:31; Status DC Ondansetron HCl (Zofran) 4 mg PRN Q8HRS PRN IV NAUSEA/VOMITING 1ST CHOICE; Start 12/21/18 at 03:30; Stop 12/22/18 at 03:29; Status DC Fentanyl Citrate (Fentanyl 2ml Vial) 25 mcg PRN Q2HRS PRN IV SEVERE PAIN; Start 12/21/18 at 03:30 Insulin Human Lispro (HumaLOG) 0-5 UNITS TIDWMEALS SQ Last administered on 12/22/18at 17:19; Start 12/21/18 at 08:00; Stop 12/22/18 at 18:14; Status DC Dextrose (Dextrose 50%-Water Syringe) 12.5 gm PRN Q15MIN PRN IV SEE COMMENTS; Start 12/21/18 at 03:30 Famotidine (Pepcid Vial) 20 mg 1X ONCE IVP Last administered on 12/21/18at 04:16; Start 12/21/18 at 04:00; Stop 12/21/18 at 04:01; Status DC Ondansetron HCl (Zofran) 4 mg 1X ONCE IV Last administered on 12/21/18at 04:14; Start 12/21/18 at 04:00; Stop 12/21/18 at 04:01; Status DC Sodium Chloride 1,000 ml @ 1,000 mls/hr Q1H PRN IV hypotension; Start 12/21/18 at 08:24; Stop 12/21/18 at 14:23; Status DC Albumin Human 200 ml @ 200 mls/hr 1X PRN PRN IV Hypotension; Start 12/21/18 at 08:30; Stop 12/21/18 at 14:29; Status DC Sodium Chloride (Normal Saline Flush) 10 ml 1X PRN PRN IV AP catheter pack; Start 12/21/18 at 08:30; Stop 12/22/18 at 08:29; Status DC Sodium Chloride (Normal Saline Flush) 10 ml 1X PRN PRN IV PATIENT AMBASSADOR catheter pack; Start 12/21/18 at 08:30; Stop 12/22/18 at 08:29; Status DC Sodium Chloride 1,000 ml @ 400 mls/hr Q2H30M PRN IV PATENCY; Start 12/21/18 at 08:24; Stop 12/21/18 at 20:23; Status DC Info (PHARMACY MONITORING -- do not chart) 1 each PRN DAILY PRN MC SEE COMMENTS; Start 12/21/18 at 08:30; Status UNV Info (PHARMACY MONITORING -- do not chart) 1 each PRN DAILY PRN MC SEE COMMENTS; Start 12/21/18 at 08:30; Status Cancel Amoxicillin/ Clavulanate Potassium (Augmentin 875/ 125mg) 1 tab BID PO ; Start 12/21/18 at 21:00; Status Cancel Aspirin (Ecotrin) 81 mg DAILY08 PO Last administered on 12/25/18 08:33; Start 12/21/18 at 11:00 Insulin Glargine (Lantus) 6 units QHS SQ Last administered on 12/21/18at 21:12; Start 12/21/18 at 21:00 Calcium Acetate (Phoslo) 1,334 mg TIDWMEALS PO Last administered on 12/25/18 16:01; Start 12/21/18 at 12:00 Vitamin B Complex/ Vitamin C (Funmi-Hannah) 1 tab DAILY PO Last administered on 12/25/18 08:33; Start 12/21/18 at 11:00 Amoxicillin/ Clavulanate Potassium (Augmentin 500/ 125mg) 1 tab Q24H PO Last administered on 12/25/18 08:33; Start 12/22/18 at 09:00 Sevelamer Carbonate (Renvela) 1,600 mg TIDWMEALS PO Last administered on 12/25/18 16:01; Start 12/21/18 at 12:00 Nystatin (Nystop) 1 scotty BID TP Last administered on 12/25/18 08:34; Start 12/21/18 at 14:00 Acetaminophen/ Hydrocodone Bitart (Lortab 5/325) 1 tab PRN Q4HRS PRN PO MODERATE PAIN Last administered on 12/24/18 02:24; Start 12/21/18 at 14:30 Heparin Sodium (Porcine) (Heparin Sodium) 5,000 unit Q12HR SQ Last administered on 12/25/18at 20:33; Start 12/22/18 at 11:00 Docusate Sodium (Colace) 100 mg PRN DAILY PRN PO CONSTIPATION; Start 12/22/18 at 13:00 Insulin Human Lispro (HumaLOG) 6 units TIDAC SQ Last administered on 12/25/18at 17:34; Start 12/23/18 at 07:30 Nystatin (Mycostatin) 1 scotty PRN BID PRN TP RASH; Start 12/22/18 at 18:15 Lactobacillus Rhamnosus (Culturelle) 1 cap BID PO Last administered on 12/25/18at 20:22; Start 12/22/18 at 21:00 Sodium Chloride 500 ml @ 500 mls/hr 1X ONCE IV ; Start 12/22/18 at 21:00; Stop 12/22/18 at 21:59; Status DC Info (PHARMACY MONITORING -- do not chart) 1 each PRN DAILY PRN MC SEE COMMENTS; Start 12/23/18 at 10:30; Status UNV Info (PHARMACY MONITORING -- do not chart) 1 each PRN DAILY PRN MC SEE COMMENTS; Start 12/23/18 at 10:30; Status UNV Ondansetron HCl (Zofran) 4 mg PRN Q6HRS PRN IV NAUSEA/VOMITING Last administered on 12/26/18at 06:37; Start 12/24/18 at 07:45 Tramadol HCl (Ultram) 50 mg PRN Q6HRS PRN PO PAIN Last administered on 12/25/18at 22:05; Start 12/25/18 at 09:00 Sodium Chloride 1,000 ml @ 1,000 mls/hr Q1H PRN IV hypotension; Start 12/26/18 at 07:15; Stop 12/26/18 at 13:14 Albumin Human 200 ml @ 200 mls/hr 1X PRN PRN IV Hypotension; Start 12/26/18 at 07:15; Stop 12/26/18 at 13:14 Acetaminophen (Tylenol) 500 mg 1X PRN PRN PO MILD PAIN / TEMP; Start 12/26/18 at 07:15; Stop 12/27/18 at 07:14 Diphenhydramine HCl (Benadryl) 25 mg 1X PRN PRN IV ITCHING; Start 12/26/18 at 07:15; Stop 12/27/18 at 07:14 Diphenhydramine HCl (Benadryl) 25 mg 1X PRN PRN IV ITCHING; Start 12/26/18 at 07:15; Stop 12/27/18 at 07:14 Sodium Chloride 1,000 ml @ 400 mls/hr Q2H30M PRN IV PATENCY; Start 12/26/18 at 07:15; Stop 12/26/18 at 19:14 Info (PHARMACY MONITORING -- do not chart) 1 each PRN DAILY PRN MC SEE COMMENTS; Start 12/26/18 at 07:15 Active Scripts Active Estrace (Estradiol) 42.5 Gm Cream.appl 1 Scotty VG 3X/WEEK 14 Days Reported Funmi-Hannah Rx Tablet (Vit B Cmplx 3/Fa/Vit C/Biotin) 1 Each Tablet 1 Each PO DAILY Amox Tr-K Clv 875-125 Mg Tab (Amoxicillin/Potassium Clav) 1 Each Tablet 1 Tab PO BID Novolog (Insulin Aspart) 100 Unit/1 Ml Cartridge 6 Unit SQ TIDAC Lantus Solostar (Insulin Glargine,Hum.rec.anlog) 100 Unit/1 Ml Insuln.pen 6 Unit SQ QHS [regrenex] TOP DAILY PRN Calcium Acetate 667 Mg Tablet 2 Cap PO TIDAC Aspir 81 (Aspirin) 81 Mg Tablet. 1 Tab PO DAILY08 Vital Signs Vital Signs Date Time Temp Pulse Resp B/P (MAP) Pulse Ox O2 Delivery O2 Flow Rate FiO2 12/26/18 07:00 98.1 94 18 141/60 (87) 97 Room Air 98.1 Labs Laboratory Tests Test 12/24/18 14:45 12/24/18 17:04 12/24/18 21:33 12/25/18 02:10 White Blood Count 8.4 x10^3/uL (4.0-11.0) Red Blood Count 2.66 x10^6/uL (3.50-5.40) Hemoglobin 8.9 g/dL (12.0-15.5) Hematocrit 27.3 % (36.0-47.0) Mean Corpuscular Volume 103 fL (79-100) Mean Corpuscular Hemoglobin 33 pg (25-35) Mean Corpuscular Hemoglobin Concent 33 g/dL (31-37) Red Cell Distribution Width 15.0 % (11.5-14.5) Platelet Count 130 x10^3/uL (140-400) Neutrophils (%) (Auto) 77 % (31-73) Lymphocytes (%) (Auto) 13 % (24-48) Monocytes (%) (Auto) 9 % (0-9) Eosinophils (%) (Auto) 1 % (0-3) Basophils (%) (Auto) 0 % (0-3) Neutrophils # (Auto) 6.5 x10^3uL (1.8-7.7) Lymphocytes # (Auto) 1.1 x10^3/uL (1.0-4.8) Monocytes # (Auto) 0.7 x10^3/uL (0.0-1.1) Eosinophils # (Auto) 0.1 x10^3/uL (0.0-0.7) Basophils # (Auto) 0.0 x10^3/uL (0.0-0.2) Glucose (Fingerstick) 213 mg/dL (70-99) 92 mg/dL (70-99) 128 mg/dL (70-99) Test 12/25/18 07:29 12/25/18 07:43 12/25/18 11:41 12/25/18 16:37 White Blood Count 7.8 x10^3/uL (4.0-11.0) Red Blood Count 2.48 x10^6/uL (3.50-5.40) Hemoglobin 8.5 g/dL (12.0-15.5) Hematocrit 25.2 % (36.0-47.0) Mean Corpuscular Volume 102 fL (79-100) Mean Corpuscular Hemoglobin 34 pg (25-35) Mean Corpuscular Hemoglobin Concent 34 g/dL (31-37) Red Cell Distribution Width 14.9 % (11.5-14.5) Platelet Count 157 x10^3/uL (140-400) Neutrophils (%) (Auto) 73 % (31-73) Lymphocytes (%) (Auto) 15 % (24-48) Monocytes (%) (Auto) 9 % (0-9) Eosinophils (%) (Auto) 2 % (0-3) Basophils (%) (Auto) 0 % (0-3) Neutrophils # (Auto) 5.7 x10^3uL (1.8-7.7) Lymphocytes # (Auto) 1.2 x10^3/uL (1.0-4.8) Monocytes # (Auto) 0.7 x10^3/uL (0.0-1.1) Eosinophils # (Auto) 0.2 x10^3/uL (0.0-0.7) Basophils # (Auto) 0.0 x10^3/uL (0.0-0.2) Sodium Level 138 mmol/L (136-145) Potassium Level 4.7 mmol/L (3.5-5.1) Chloride Level 99 mmol/L (98-107) Carbon Dioxide Level 29 mmol/L (21-32) Anion Gap 10 (6-14) Blood Urea Nitrogen 45 mg/dL (7-20) Creatinine 7.3 mg/dL (0.6-1.0) Estimated GFR (Cockcroft-Gault) 5.4 Glucose Level 150 mg/dL (70-99) Calcium Level 9.0 mg/dL (8.5-10.1) Glucose (Fingerstick) 128 mg/dL (70-99) 165 mg/dL (70-99) 232 mg/dL (70-99) Test 12/25/18 21:01 12/26/18 02:29 12/26/18 03:50 12/26/18 06:29 Glucose (Fingerstick) 134 mg/dL (70-99) 132 mg/dL (70-99) 154 mg/dL (70-99) White Blood Count 6.9 x10^3/uL (4.0-11.0) Red Blood Count 2.57 x10^6/uL (3.50-5.40) Hemoglobin 8.6 g/dL (12.0-15.5) Hematocrit 26.1 % (36.0-47.0) Mean Corpuscular Volume 101 fL (79-100) Mean Corpuscular Hemoglobin 34 pg (25-35) Mean Corpuscular Hemoglobin Concent 33 g/dL (31-37) Red Cell Distribution Width 15.0 % (11.5-14.5) Platelet Count 172 x10^3/uL (140-400) Neutrophils (%) (Auto) 62 % (31-73) Lymphocytes (%) (Auto) 24 % (24-48) Monocytes (%) (Auto) 11 % (0-9) Eosinophils (%) (Auto) 4 % (0-3) Basophils (%) (Auto) 1 % (0-3) Neutrophils # (Auto) 4.2 x10^3uL (1.8-7.7) Lymphocytes # (Auto) 1.6 x10^3/uL (1.0-4.8) Monocytes # (Auto) 0.7 x10^3/uL (0.0-1.1) Eosinophils # (Auto) 0.3 x10^3/uL (0.0-0.7) Basophils # (Auto) 0.0 x10^3/uL (0.0-0.2) Sodium Level 138 mmol/L (136-145) Potassium Level 4.9 mmol/L (3.5-5.1) Chloride Level 98 mmol/L (98-107) Carbon Dioxide Level 30 mmol/L (21-32) Anion Gap 10 (6-14) Blood Urea Nitrogen 55 mg/dL (7-20) Creatinine 8.2 mg/dL (0.6-1.0) Estimated GFR (Cockcroft-Gault) 4.8 Glucose Level 156 mg/dL (70-99) Calcium Level 9.0 mg/dL (8.5-10.1) Test 12/26/18 07:52 Glucose (Fingerstick) 166 mg/dL (70-99) Laboratory Tests Test 12/25/18 16:37 12/25/18 21:01 12/26/18 02:29 12/26/18 03:50 Glucose (Fingerstick) 232 mg/dL (70-99) 134 mg/dL (70-99) 132 mg/dL (70-99) White Blood Count 6.9 x10^3/uL (4.0-11.0) Red Blood Count 2.57 x10^6/uL (3.50-5.40) Hemoglobin 8.6 g/dL (12.0-15.5) Hematocrit 26.1 % (36.0-47.0) Mean Corpuscular Volume 101 fL (79-100) Mean Corpuscular Hemoglobin 34 pg (25-35) Mean Corpuscular Hemoglobin Concent 33 g/dL (31-37) Red Cell Distribution Width 15.0 % (11.5-14.5) Platelet Count 172 x10^3/uL (140-400) Neutrophils (%) (Auto) 62 % (31-73) Lymphocytes (%) (Auto) 24 % (24-48) Monocytes (%) (Auto) 11 % (0-9) Eosinophils (%) (Auto) 4 % (0-3) Basophils (%) (Auto) 1 % (0-3) Neutrophils # (Auto) 4.2 x10^3uL (1.8-7.7) Lymphocytes # (Auto) 1.6 x10^3/uL (1.0-4.8) Monocytes # (Auto) 0.7 x10^3/uL (0.0-1.1) Eosinophils # (Auto) 0.3 x10^3/uL (0.0-0.7) Basophils # (Auto) 0.0 x10^3/uL (0.0-0.2) Sodium Level 138 mmol/L (136-145) Potassium Level 4.9 mmol/L (3.5-5.1) Chloride Level 98 mmol/L (98-107) Carbon Dioxide Level 30 mmol/L (21-32) Anion Gap 10 (6-14) Blood Urea Nitrogen 55 mg/dL (7-20) Creatinine 8.2 mg/dL (0.6-1.0) Estimated GFR (Cockcroft-Gault) 4.8 Glucose Level 156 mg/dL (70-99) Calcium Level 9.0 mg/dL (8.5-10.1) Test 12/26/18 06:29 12/26/18 07:52 Glucose (Fingerstick) 154 mg/dL (70-99) 166 mg/dL (70-99) Allergies Allergies Coded Allergies Type Severity Reaction Last Updated Verified latex Allergy Intermediate Rash 12/30/17 Yes Disposition/Orders: D/C to Home Patient Instructions D/C PLANNING 37 MIN FLORI DAVIES MD Dec 26, 2018 13:05
[2018-12-26] MEDS: FOLIC/VIT B COMP W-C (RENAL) TABLET. PO SCH (13:06)
[2018-12-26] MEDS: LACTOBACILLUS RHAMNOSUS GG 1 CAPSULE. PO SCH (13:07)
[2018-12-26] MEDS: AMOXICILLIN/K CLAV 500/125MG TABLET. PO SCH (13:07)
[2018-12-26] MEDS: ASPIRIN ENTERIC COATED 81 MG TABLET.DR. PO SCH (13:07)
[2018-12-26] MEDS: NYSTATIN TOPICAL POWDER 15GM BOTTLE. TP SCH (13:08)
[2018-12-26] MEDS: HEPARIN for SUB-Q USE 5,000 UNIT/ML VIAL. SQ SCH (13:12)
--- NOTE | 2018-12-26 13:13 | SNU/HH DC ---
DISCHARGE ORDERS DISCHARGE INFORMATION: FINAL DIAGNOSIS Problems Medical Problems: (1) Pelvis fracture Status: Acute CONDITION ON DISCHARGE: Stable CODE STATUS: Code Status: Full CUSTODIAL: SNF STAY <30 DAYS: Yes HOSPICE: HOSPICE: No HOSPICE EVAL & TREAT: No LTAC: ADMIT TO LTAC: No POST DISCHARGE ORDERS: ACTIVITY ORDERS: Activity as tolerated WEIGHT BEARING STATUS: As tolerated BATHING ORDERS: Shower-keep dressing dry DIET AFTER DISCHARGE: Renal WOUND/INCISION CARE: Keep wound/cast CDI CHECKS AFTER DISCHARGE: CHECKS AFTER DISCHARGE: Check blood sugar, ac/hs TREATMENT/EQUIPMENT ORDERS: ADAPTIVE EQUIPMENT NEEDED: None DISCHARGE MEDICATIONS: Home Meds Active Scripts Estradiol (ESTRACE) 42.5 Gm Cream.appl, 1 ODILIA VG 3X/WEEK for 14 Days, #14 EACH Prov:CHLOE SCHAFER MD 03/21/18 Reported Medications Vit B Cmplx 3/Fa/Vit C/Biotin (MARY ANN-AMRIK RX TABLET) 1 Each Tablet, 1 EACH PO DAILY for dialysis, TAB 12/21/18 Amoxicillin/Potassium Clav (AMOX TR-K CLV 875-125 MG TAB) 1 Each Tablet, 1 TAB PO BID for Wound , #20 TAB 12/21/18 Insulin Aspart (NOVOLOG) 100 Unit/1 Ml Cartridge, 6 UNIT SQ TIDAC for DM, EACH 07/19/18 Insulin Glargine,Hum.rec.anlog (LANTUS SOLOSTAR) 100 Unit/1 Ml Insuln.pen, 6 UNIT SQ QHS for DM, #15 ML 3 Refills 07/19/18 [regrenex] No Conflict Check, TOP DAILY PRN for wound care 07/19/18 Calcium Acetate (CALCIUM ACETATE) 667 Mg Tablet, 2 CAP PO TIDAC for phosphate binder 07/03/18 Aspirin (ASPIR 81) 81 Mg Tablet., 1 TAB PO DAILY08 for heart health, #30 TAB 5 Refills 06/03/14 Discontinued Reported Medications Clopidogrel Bisulfate (CLOPIDOGREL) 75 Mg Tablet, 1 TAB PO DAILY for for 6 weeks, #45 TAB 1 Refill 10/18/18 Simvastatin (SIMVASTATIN) 40 Mg Tablet, 1 TAB PO QHS for high cholesterol, #30 TAB 5 Refills Last dose given: 08-20-14 9:00 p.m. Next dose due: lorenzoight 06/03/14 FLORI DAVIES MD Dec 26, 2018 13:13
[2018-12-26] MEDS: traMADol 50 MG TABLET PO PRN (13:56)
[2018-12-26 15:00] VITALS: BP 106/43
--- NOTE | 2018-12-26 17:58 | NUR ---
Pt discharged to [facility]. Called and gave report to Dante. IV removed. Pics of wound on left foot was taken. Family requested I call and ask wound care to reassess and use a different dressing. Ebony @ bedside she recommended aqaucel ag silver and kerlix. When the pt was taking off bandage from dialysis off her skin tore. Picture of skin tear was taken. Xeroform and kerlix applied. VSS. Family took all belongings. Pt was assisted with dressing by her daughter. Daughter assisted pt to wheelchair. She was taken by medical transportation to [facility].
== END 2018-12-26 16:45 | DRG 542 ==
LOC: ER 00:02 → 4 NORTH 03:27
PROVIDERS: ADMIT Internal Medicine; ATTEND Internal Medicine
PROC: 5A1D70Z Performance of Urinary Filtration, Intermittent, Less than 6 Hours Per Day (ICD-10-PCS; principal; 2018-12-21)
PROC: 5A1D70Z Performance of Urinary Filtration, Intermittent, Less than 6 Hours Per Day (ICD-10-PCS; 2018-12-23)
PROC: 5A1D70Z Performance of Urinary Filtration, Intermittent, Less than 6 Hours Per Day (ICD-10-PCS; 2018-12-26)
DX: M80.852A Other osteoporosis with current pathological fracture, left femur, initial encounter for fracture (principal); N18.6 End stage renal disease; E87.1 Hypo-osmolality and hyponatremia; E44.1 Mild protein-calorie malnutrition; I12.0 Hypertensive chronic kidney disease with stage 5 chronic kidney disease or end stage renal disease; E78.00 Pure hypercholesterolemia, unspecified; E11.22 Type 2 diabetes mellitus with diabetic chronic kidney disease; E78.5 Hyperlipidemia, unspecified; I25.10 Atherosclerotic heart disease of native coronary artery without angina pectoris; D64.9 Anemia, unspecified; B37.9 Candidiasis, unspecified; I95.9 Hypotension, unspecified; D69.6 Thrombocytopenia, unspecified; Z95.1 Presence of aortocoronary bypass graft; Z91.040 Latex allergy status; Z99.2 Dependence on renal dialysis; Z82.49 Family history of ischemic heart disease and other diseases of the circulatory system; Z87.440 Personal history of urinary (tract) infections; Z79.4 Long term (current) use of insulin
CPT/HCPCS: 36415; 72192; 73502; 80048; 80053; 82962; 83735; 85025; 85610; 85730; 96374; J1644; J1815; J2405; J3010; J3490; 97530; 99285-25

== ENCOUNTER → 2019-01-30 | Outpatient (CLI) | payer MEDICARE ==
[~2019-01-30] MED LIST changes: +AMOX1TAB11 PO; +IOHEXOL 300 MG/ML 100ML VIAL. IV ONE; +VIT1TABL71 PO
--- NOTE | 2019-01-30 15:51 | KCIC ---
EXAM: CT abdomen with and without contrast. HISTORY: Left renal lesion. TECHNIQUE: CT of the abdomen/pelvis was performed before and after the intravenous administration of 67 mL Omnipaque 300. COMPARISON: 11/16/2018. FINDINGS: Bone windows reveal moderate superior endplate chronic compression deformity at L2. There are no suspicious osseous lesions. An incompletely visualized fracture of the left medial iliac bone appears subacute. Median sternotomy and coronary artery bypass grafting are noted. Images of the lung bases reveal mild bronchiectasis in the left base. There is wall thickening of the right proximal ureter just distal to the ureteropelvic junction. There is spiculation within the surrounding periureteral fat. This appearance is not clearly changed given differences in technique. Right hydronephrosis is moderate. A focally dilated calyx in the interpolar region as seen on axial image 50 may be secondary to a urothelial thickening along the calyx/pelvis junction. On the left, there is an enhancing 1.0 cm nodule laterally on image 48. This is concerning for a small neoplasm. Elsewhere, multiple cysts appear benign. 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 No gallbladder mass is identified. The liver, gallbladder, adrenal glands and spleen are unremarkable. There are diffuse atherosclerotic calcifications. There are no pathologically enlarged lymph nodes. There is no small bowel obstruction. IMPRESSION: 1. Focal urothelial thickening just distal to the right ureteropelvic junction, with moderate right hydronephrosis. Ureteroscopy is suggested to exclude a urothelial neoplasm. A similar lesser focus may be present along one right interpolar region calyx as seen on axial image 50. 2. An enhancing 1 cm nodule is noted along the left kidney laterally. This suggests a small neoplasm. Ongoing follow-up/management and is recommended. 3. Porcelain gallbladder. No mass is seen. Ongoing surveillance or surgical consultation is recommended. 4. Incompletely visualized subacute fracture of the left iliac bone intersecting the sacroiliac joint. *One or more of the following individualized dose reduction techniques were utilized for this examination: 1. Automated exposure control. 2. Adjustment of the mA and/or kV according to patient size. 3. Use of iterative reconstruction technique. Electronically signed by: Lily Desouza MD (01/30/2019 3:48 PM) [facility]
== END | disposition home or self-care (01) ==
LOC: KCIC CT 08:25
PROVIDERS: ATTEND Urology
DX: N28.89 Other specified disorders of kidney and ureter (principal); N28.1 Cyst of kidney, acquired; N13.30 Unspecified hydronephrosis; M84.454A Pathological fracture, pelvis, initial encounter for fracture; I70.90 Unspecified atherosclerosis; M43.8X6 Other specified deforming dorsopathies, lumbar region; Z95.1 Presence of aortocoronary bypass graft
CPT/HCPCS: 74170; Q9967

== ENCOUNTER 2019-02-08 06:01 | Emergency (ER) | payer MEDICARE ==
[~2019-02-08] VITALS: Ht 162.6 cm; Wt 60.8 kg
[~2019-02-08 06:01] MED LIST changes: -IOHEXOL 300 MG/ML 100ML VIAL. IV ONE
[2019-02-08 06:13] VITALS: BP 165/75
[2019-02-08 06:35] LABS: BILIRUBIN,URINE NEGATIVE (NEG); CLARITY,URINE TURBID; COLOR,URINE YELLOW; NITRITE,URINE NEGATIVE (NEG); PROTEIN,URINE 100 mg/dL (NEG-TRACE); UROBILINOGEN,URINE 0.2 mg/dL (0.2 mg/dL)
--- NOTE | 2019-02-08 06:35 | PHYS DOC ---
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 She states for the past few days she has had some urinary frequency and some mild dysuria. She has not had any fevers or chills, and denies any flank pain. She has a history of ESRD, her last dialysis was Tuesday, and she is scheduled for dialysis again today. She also does have a history of a neurogenic bladder, and on imaging over the past few months apparently has had some right-sided hydronephrosis. She does follow with Dr. Vang from urology, and did have a CT scan done about a week ago, reported that test has been reviewed. On prior urology consultations while the patient was inpatient, there was discussion about a cystoscopy, but it appears that that has not yet been done. This is according to the patient and her family. She did just complete a course of antibiotics, doxycycline, due to a wound on her leg. Her prior recent urinalysis cultures have been reviewed, one from November showed no growth, from October she had Escherichia coli with a fairly low resistance pattern. Review of Systems Review of Systems Constitutional: Denies fever or chills [] Respiratory: Denies cough or shortness of breath [] GI: Denies abdominal pain, nausea, vomiting, bloody stools or diarrhea [] : Denies hematuria [] Musculoskeletal: Denies back pain or joint pain [] Integument: Denies rash or skin lesions [] Neurologic: Denies headache, focal weakness or sensory changes [] Allergies Allergies Allergies Coded Allergies Type Severity Reaction Last Updated Verified latex Allergy Intermediate Rash 12/30/17 Yes Physical Exam Physical Exam PHYSICAL EXAM: CONSTITUTIONAL: Well developed, well nourished HEAD: normocephalic, atraumatic EENT: PERRL, EOMI. Conjunctivae normal color, sclerae non-icteric; moist mucous membranes. NECK: Supple, non-tender; no meningismus. LUNGS: Lungs CTA, breathing even and unlabored. Normal air movement. HEART: Regular rate and rhythm, no murmur CHEST: No deformity; non-tender ABDOMEN: The abdomen is soft, and non-tender, no masses or bruits. EXTREM: Normal ROM; no deformity, no calf tenderness. Normal pulses palpable in all extremities. There is no pedal edema. There is an AV fistula on the left upper extremity. SKIN: No rash; no diaphoresis NEURO: Alert; normal speech and cognition; CN's grossly intact; strength grossly intact without focal deficit. BACK: No CVA TTP. GENITOURINARY: Normal external genitalia, without any obvious sores, lesions, or excoriation. Exam was performed in the presence of the patient's nurse, Meena. Current Patient Data Vital Signs Vital Signs Date Time Temp Pulse Resp B/P (MAP) Pulse Ox O2 Delivery O2 Flow Rate FiO2 02/08/19 06:13 98.1 97 16 165/75 (105) 98 Room Air 98.1 Lab Values Laboratory Tests Test 02/08/19 06:15 Urine Collection Type Void Urine Color Yellow Urine Clarity Turbid Urine pH 8.0 Urine Specific [place] 1.010 Urine Protein 100 mg/dL (NEG-TRACE) Urine Glucose (UA) Negative mg/dL (NEG) Urine Ketones (Stick) Negative mg/dL (NEG) Urine Blood Large (NEG) Urine Nitrite Negative (NEG) Urine Bilirubin Negative (NEG) Urine Urobilinogen Dipstick 0.2 mg/dL (0.2 mg/dL) Urine Leukocyte Esterase Large (NEG) Urine RBC Fobs /HPF (0-2) Urine WBC Tntc /HPF (0-4) Urine Bacteria Many /HPF (0-FEW) EKG EKG [] Radiology/Procedures Radiology/Procedures [] Course & Med Decision Making Course & Med Decision Making Pertinent Labs and Imaging studies reviewed. (See chart for details) []7:00 AM: The patient's condition remained stable. She has a follow-up appointment with her urologist this coming Tuesday, and I encouraged her to have urine culture results followed up upon. Return precautions were discussed in detail. Dragon Disclaimer Dragon Disclaimer This electronic medical record was generated, in whole or in part, using a voice recognition dictation system. Departure Departure Impression: Primary Impression: UTI (urinary tract infection) Disposition: HOME, SELF-CARE Condition: STABLE Referrals: LISA CALHOUN (PCP) VONNIE VANG MD Patient Instructions: Hydronephrosis, Urinary Tract Infection Scripts Cephalexin (KEFLEX) 500 Mg Capsule 1000 MG PO BID for 7 Days, #28 CAP Prov: DAKOTA WEISS MD 02/08/19 DAKOTA WEISS MD Feb 08, 2019 06:35
[2019-02-08 06:45] LABS: BACTERIA,URINE MANY /HPF (0-FEW); WBC,URINE TNTC /HPF (0-4)
[2019-02-08 06:47] LABS: RBC,URINE FOBS /HPF (0-2)
[2019-02-08] MEDS ORDERED: cefTRIAXone IM 1 GM VIAL IM ONE (07:00)
[2019-02-08] MEDS ORDERED: CEPH-264 PO (07:00)
== END 2019-02-08 07:12 | disposition home or self-care (01) ==
LOC: ER 06:01
DX: N39.0 Urinary tract infection, site not specified (principal); I12.9 Hypertensive chronic kidney disease with stage 1 through stage 4 chronic kidney disease, or unspecified chronic kidney disease; E78.00 Pure hypercholesterolemia, unspecified; E11.22 Type 2 diabetes mellitus with diabetic chronic kidney disease; N18.9 Chronic kidney disease, unspecified; Z99.2 Dependence on renal dialysis; Z95.1 Presence of aortocoronary bypass graft; Z96.0 Presence of urogenital implants; Z91.040 Latex allergy status
CPT/HCPCS: 81001; 87086; 96372; 99285; J0696

== ENCOUNTER 2019-04-13 17:18 | Inpatient (IN) | payer MEDICARE ==
[~2019-04-13] VITALS: Ht 162.6 cm; Wt 61.3 kg
--- NOTE | 2019-04-13 18:44 | PHYS DOC ---
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 Patient states that she had no idea that it was there until last night when it had broke open. Patient's daughter states that she has been cleaning it but was worried about infection since the patient is diabetic. Patient denies any pain and states that she can fill her feet and does not have neuropathy. Patient denies any fevers. (RICHARD VYAS BRAIN PICKER) Review of Systems Review of Systems Constitutional: Denies fever or chills [] Eyes: Denies change in visual acuity, redness, or eye pain [] HENT: Denies nasal congestion or sore throat [] Respiratory: Denies cough or shortness of breath [] Cardiovascular: No additional information not addressed in HPI [] GI: Denies abdominal pain, nausea, vomiting, bloody stools or diarrhea [] : Denies dysuria or hematuria [] Musculoskeletal: Denies back pain or joint pain [] Integument: Left pad of foot open blister wound. Denies rash or skin lesions [] Neurologic: Denies headache, focal weakness or sensory changes [] Endocrine: Denies polyuria or polydipsia [] All other systems were reviewed and found to be within normal limits, except as documented in this note. (RICHARD VYAS APRN) Current Medications Current Medications Current Medications Medications (Trade) Dose Ordered Sig/Claudette Start Time Stop Time Status Last Admin Dose Admin Acetaminophen (Tylenol) 650 mg PRN Q4HRS PRN 04/13/19 19:45 04/14/19 19:44 Ceftriaxone Sodium (Rocephin) 2 gm 1X ONCE 04/13/19 19:45 04/13/19 19:46 DC 04/13/19 20:06 2 GM Fentanyl Citrate (Fentanyl 2ml Vial) 50 mcg PRN Q1HR PRN 04/13/19 19:45 04/13/19 20:25 DC Ondansetron HCl (Zofran) 4 mg PRN Q8HRS PRN 04/13/19 19:45 04/13/19 20:25 DC 04/13/19 20:19 4 MG Vancomycin HCl 1.5 gm/Sodium Chloride 500 ml @ 250 mls/hr 1X ONCE 04/13/19 19:45 04/13/19 21:44 04/13/19 20:06 250 MLS/HR (HAWA SILVA DO) Allergies Allergies Allergies Coded Allergies Type Severity Reaction Last Updated Verified latex Allergy Intermediate Rash 12/30/17 Yes (HAWA SILVA DO) Physical Exam Physical Exam Constitutional: Well developed, well nourished, no acute distress, non-toxic ap pearance. [] HENT: Normocephalic, atraumatic, bilateral external ears normal, oropharynx moist, no oral exudates, nose normal. [] Eyes: PERRLA, EOMI, conjunctiva normal, no discharge. [] Neck: Normal range of motion, no tenderness, supple, no stridor. [] Cardiovascular:Heart rate regular rhythm, no murmur [] Lungs & Thorax: Bilateral breath sounds clear to auscultation [] Abdomen: Bowel sounds normal, soft, no tenderness, no masses, no pulsatile masses. [] Skin: Pad of left foot quarter-sized open blister wound with purulent drainage. Warm, dry, no erythema, no rash. [] Back: No tenderness, no CVA tenderness. [] Extremities: No tenderness, no cyanosis, no clubbing, ROM intact, no edema. [] Neurologic: Alert and oriented X 3, normal motor function, normal sensory function, no focal deficits noted. [] Psychologic: Affect normal, judgement normal, mood normal. [] (RICHARD VYAS APRN) Current Patient Data Vital Signs Vital Signs Date Time Temp Pulse Resp B/P (MAP) Pulse Ox O2 Delivery O2 Flow Rate FiO2 04/13/19 19:29 93 16 148/64 (92) 94 Room Air 04/13/19 18:02 98.3 98.3 (HAWA SILVA DO) Lab Values Laboratory Tests Test 04/13/19 17:10 04/13/19 18:40 Sodium Level 138 mmol/L (136-145) Potassium Level 3.8 mmol/L (3.5-5.1) Chloride Level 99 mmol/L (98-107) Carbon Dioxide Level 32 mmol/L (21-32) Anion Gap 7 (6-14) Blood Urea Nitrogen 26 mg/dL (7-20) H Creatinine 4.3 mg/dL (0.6-1.0) H Estimated GFR (Cockcroft-Gault) 10.0 BUN/Creatinine Ratio 6 (6-20) Glucose Level 236 mg/dL (70-99) H Calcium Level 8.3 mg/dL (8.5-10.1) L Total Bilirubin 0.3 mg/dL (0.2-1.0) Aspartate Amino Transferase (AST) 47 U/L (15-37) H Alanine Aminotransferase (ALT) 33 U/L (14-59) Alkaline Phosphatase 241 U/L (46-116) H Total Protein 7.9 g/dL (6.4-8.2) Albumin 2.8 g/dL (3.4-5.0) L Albumin/Globulin Ratio 0.5 (1.0-1.7) L White Blood Count 5.4 x10^3/uL (4.0-11.0) Red Blood Count 3.68 x10^6/uL (3.50-5.40) Hemoglobin 12.5 g/dL (12.0-15.5) Hematocrit 36.8 % (36.0-47.0) Mean Corpuscular Volume 100 fL (79-100) Mean Corpuscular Hemoglobin 34 pg (25-35) Mean Corpuscular Hemoglobin Concent 34 g/dL (31-37) Red Cell Distribution Width 15.7 % (11.5-14.5) H Platelet Count 165 x10^3/uL (140-400) Neutrophils (%) (Auto) 64 % (31-73) Lymphocytes (%) (Auto) 22 % (24-48) L Monocytes (%) (Auto) 11 % (0-9) H Eosinophils (%) (Auto) 3 % (0-3) Basophils (%) (Auto) 1 % (0-3) Neutrophils # (Auto) 3.4 x10^3/uL (1.8-7.7) Lymphocytes # (Auto) 1.2 x10^3/uL (1.0-4.8) Monocytes # (Auto) 0.6 x10^3/uL (0.0-1.1) Eosinophils # (Auto) 0.1 x10^3/uL (0.0-0.7) Basophils # (Auto) 0.1 x10^3/uL (0.0-0.2) Lactic Acid Level 1.5 mmol/L (0.4-2.0) Laboratory Tests 04/13/19 18:40 Laboratory Tests 04/13/19 17:10 (HAWA SILVA DO) Lab Values Laboratory Tests Test 04/13/19 18:40 White Blood Count 5.4 x10^3/uL (4.0-11.0) Red Blood Count 3.68 x10^6/uL (3.50-5.40) Hemoglobin 12.5 g/dL (12.0-15.5) Hematocrit 36.8 % (36.0-47.0) Mean Corpuscular Volume 100 fL (79-100) Mean Corpuscular Hemoglobin 34 pg (25-35) Mean Corpuscular Hemoglobin Concent 34 g/dL (31-37) Red Cell Distribution Width 15.7 % (11.5-14.5) H Platelet Count 165 x10^3/uL (140-400) Neutrophils (%) (Auto) 64 % (31-73) Lymphocytes (%) (Auto) 22 % (24-48) L Monocytes (%) (Auto) 11 % (0-9) H Eosinophils (%) (Auto) 3 % (0-3) Basophils (%) (Auto) 1 % (0-3) Neutrophils # (Auto) 3.4 x10^3/uL (1.8-7.7) Lymphocytes # (Auto) 1.2 x10^3/uL (1.0-4.8) Monocytes # (Auto) 0.6 x10^3/uL (0.0-1.1) Eosinophils # (Auto) 0.1 x10^3/uL (0.0-0.7) Basophils # (Auto) 0.1 x10^3/uL (0.0-0.2) Laboratory Tests 04/13/19 18:40 (RICHARD VYAS APRN) EKG EKG [] (RICHARD VYAS APRN) Radiology/Procedures Radiology/Procedures [] (RICHARD VYAS APRN) Impressions: [facility] [address] [place] [address] IMAGING REPORT Signed PATIENT: BRYANT LOCKHART ACCOUNT: [id number] : 1940 LOCATION: ER AGE: 78 SEX: F EXAM STATUS: REG ER ORD. PHYSICIAN: RICHARD VYAS APRN REASON: SORE TO BOTTOM OF FOOT PROCEDURE: FOOT LEFT 3V Left foot x-rays 3 views HISTORY: Ulcer of the plantar left foot. FINDINGS: Fixation plate and screws of the distal fibula. Fixation screws medial malleolus of the tibia. Os peroneus. Small spur plantar calcaneus. Arterial vascular calcifications. Soft tissue thickening plantar foot overlying the first MTP joint. Erosions of the bases of the first through fourth phalanges at the MTP joints with the greatest deformity at the first MTP joint with pencil in cup erosive deformity and bone spurring at the base of the great toe proximal phalanx, there is also mature periosteal ossification along the distal shaft of the first metatarsal and at the sesamoids. On the lateral view there are heterogeneous bone lucencies of the first metatarsal head and distal shaft which could be superimposed soft tissue emphysema from the ulceration however true bone lysis is also a possibility. No fracture. No dislocation. IMPRESSION: 1. Soft tissue thickening presumably a plantar ulcer overlying the first MTP joint. Ill-defined lucencies of the underlying distal first metatarsal raising the possibility of areas of bone lysis due to osteomyelitis. Secondarily this could be a summation density artifact of overlapping soft tissue emphysema, as these lucencies are less apparent on the AP and oblique views. MR imaging has greater sensitivity for characterizing osteomyelitis. 2. Erosive arthropathy with a pencil in cup deformity involving the MTP joints, suggestive of an inflammatory arthritis, including psoriatic arthritis, although rheumatoid arthritis or erosive osteoarthritis would also be considerations. Electronically signed by: Sanjay Cervantes MD (04/13/2019 6:55 PM) [facility] DICTATED and SIGNED BY: SANJAY CERVANTES MD DATE: 04/13/191854 (RICHARD VYAS APRN) Course & Med Decision Making Course & Med Decision Making Patient is a 78 year old female who presents with states that a blister on the pad of her left foot directly below her left fifth toe and it broke open last night and was foul-smelling and bleeding. Patient states that she had no idea that it was there until last night when it had broke open. Patient's daughter states that she has been cleaning it but was worried about infection since the patient is diabetic. Patient denies any pain and states that she can fill her feet and does not have neuropathy. Patient denies any fevers. Alert and oriented. Speaks in full clear sentences. Patient has a quarter-sized open blister on the pad of her left foot directly below her left fifth toe and it broke open last night and was foul-smelling and bleeding. The area is bright red and moist. There is purulent drainage on the 4 x 4 when I took it off the area. There is no swelling to the foot or cellulitis. There is no tenderness to the foot. Pedal pulses present. Cap refills less than 3 seconds. Skin is otherwise pink warm and dry. Lungs are clear to auscultation all lobes. Afebrile. Patient is on dialysis of which she gets Tuesday once a Fridays she did have dialysis today. Alert and oriented. Ambulatory with steady gait. Speaks in full clear sentences. Patient states that she has a wound care appointment coming up for other healing wounds on the same foot but did not want to wait. Foot X-ray shows: 1. Soft tissue thickening presumably a plantar ulcer overlying the first MTP joint. Ill-defined lucencies of the underlying distal first metatarsal raising the possibility of areas of bone lysis due to osteomyelitis. Secondarily this could be a summation density artifact of overlapping soft tissue emphysema, as these lucencies are less apparent on the AP and oblique views. MR imaging has greater sensitivity for characterizing osteomyelitis. 2. Erosive arthropathy with a pencil in cup deformity involving the MTP joints, suggestive of an inflammatory arthritis, including psoriatic arthritis, although rheumatoid arthritis or erosive osteoarthritis would also be considerations. Patient to be admitted for osteomyelitis. I have spoken to Dr Godfrey and she states to routine consult Nephrology and I&D. She states that Vancomycin and Rocephin are fine for antibiotics. (RICHARD VYAS APRN) Dragon Disclaimer Dragon Disclaimer This electronic medical record was generated, in whole or in part, using a voice recognition dictation system. (RICHARD VYAS APRN) Departure Departure Impression: Primary Impression: Osteomyelitis Additional Impression: ESRD (end stage renal disease) Disposition: ADMITTED INPATIENT Admitting Physician: MIL Arambula) (HAWA SILVA DO) Condition: GUARDED Referrals: LISA CALHOUN (PCP) Attending Signature Attending Signature I have reviewed the PA/BOX TOE STITCHER's note and plan of care. I was available for consultation as needed during the patient's visit in the emergency department. I agree with the clinical impression, plan, and disposition. (HAWA SILVA DO) Problem Qualifiers Primary Impression: Osteomyelitis Osteomyelitis type: unspecified type Osteomyelitis location: foot Laterality: left Qualified Codes: M86.9 - Osteomyelitis, unspecified RICHARD VYAS APRN Apr 13, 2019 18:43 HAWA SILVA DO Apr 13, 2019 21:14
[2019-04-13 18:47] LABS: BASO # 0.1 x10^3/uL (0.0-0.2); BASO % 1 % (0-3); EOS # 0.1 x10^3/uL (0.0-0.7); EOS % 3 % (0-3); HEMATOCRIT 36.8 % (36.0-47.0); HEMOGLOBIN 12.5 g/dL (12.0-15.5); LYMPH # 1.2 x10^3/uL (1.0-4.8); LYMPH % 22 % (24-48); MEAN CORPUSCULAR HEMOGLOBIN 34 pg (25-35); MEAN CORPUSCULAR HGB CONC 34 g/dL (31-37); MEAN CORPUSCULAR VOLUME 100 fL (79-100); MONO # 0.6 x10^3/uL (0.0-1.1); MONO % 11 % (0-9); NEUT # 3.4 x10^3/uL (1.8-7.7); NEUT % 64 % (31-73); PLATELET COUNT 165 x10^3/uL (140-400); RED BLOOD COUNT 3.68 x10^6/uL (3.50-5.40); RED CELL DISTRIBUTION WIDTH 15.7 % (11.5-14.5); WHITE BLOOD COUNT 5.4 x10^3/uL (4.0-11.0)
--- NOTE | 2019-04-13 18:58 | RAD ---
Left foot x-rays 3 views HISTORY: Ulcer of the plantar left foot. FINDINGS: Fixation plate and screws of the distal fibula. Fixation screws medial malleolus of the tibia. Os peroneus. Small spur plantar calcaneus. Arterial vascular calcifications. Soft tissue thickening plantar foot overlying the first MTP joint. Erosions of the bases of the first through fourth phalanges at the MTP joints with the greatest deformity at the first MTP joint with pencil in cup erosive deformity and bone spurring at the base of the great toe proximal phalanx, there is also mature periosteal ossification along the distal shaft of the first metatarsal and at the sesamoids. On the lateral view there are heterogeneous bone lucencies of the first metatarsal head and distal shaft which could be superimposed soft tissue emphysema from the ulceration however true bone lysis is also a possibility. No fracture. No dislocation. IMPRESSION: 1. Soft tissue thickening presumably a plantar ulcer overlying the first MTP joint. Ill-defined lucencies of the underlying distal first metatarsal raising the possibility of areas of bone lysis due to osteomyelitis. Secondarily this could be a summation density artifact of overlapping soft tissue emphysema, as these lucencies are less apparent on the AP and oblique views. MR imaging has greater sensitivity for characterizing osteomyelitis. 2. Erosive arthropathy with a pencil in cup deformity involving the MTP joints, suggestive of an inflammatory arthritis, including psoriatic arthritis, although rheumatoid arthritis or erosive osteoarthritis would also be considerations. Electronically signed by: Sae Cervantes MD (04/13/2019 6:55 PM) [facility]
[2019-04-13 19:43] LABS: CALCIUM 8.3 mg/dL (8.5-10.1); CREATININE 4.3 mg/dL (0.6-1.0); POTASSIUM 3.8 mmol/L (3.5-5.1)
[2019-04-13] MEDS ORDERED: ACETAMINOPHEN 325 MG TABLET. PO PRN (19:45)
[2019-04-13] MEDS ORDERED: ONDANSETRON PF 4 MG/2 ML VIAL. IV PRN ×2 (19:45→20:30)
[2019-04-13] MEDS ORDERED: fentaNYL PF VIAL 100 MCG/2 ML VIAL IV PRN ×2 (19:45→20:30)
[2019-04-13] MEDS ORDERED: cefTRIAXone IV Push 2 GM VIAL. IVP ONE (19:45)
[2019-04-13] MEDS ORDERED: VANCOMYCIN 1.5 GM in IV NORMAL SALINE 500ML BAG 500 ML IV ONE (19:45)
[2019-04-13 19:56] LABS: ALBUMIN 2.8 g/dL (3.4-5.0); ALBUMIN/GLOBULIN RATIO 0.5 (1.0-1.7); TOTAL BILIRUBIN 0.3 mg/dL (0.2-1.0); TOTAL PROTEIN 7.9 g/dL (6.4-8.2)
[2019-04-13] MEDS ORDERED: PIP/TAZO PER PHARMACY MC PRN (20:30)
[2019-04-13] MEDS ORDERED: cloNIDine HCL 0.1 MG TABLET PO PRN (20:30)
[2019-04-13] MEDS ORDERED: DEXTROSE 50% 25 GM / 50ML DISP.SYRIN. IV PRN (20:30)
[2019-04-13] MEDS ORDERED: IV DEXTROSE 5% 250 ML BAG. IV PRN (20:30)
[2019-04-13] MEDS ORDERED: HYDROcodone/APAP 5/325MG 1 TAB TABLET PO PRN (20:30)
[2019-04-13] MEDS ORDERED: TEMAZEPAM 7.5 MG CAPSULE PO PRN (20:30)
[2019-04-13] MEDS ORDERED: ACETAMINOPHEN 500 MG TABLET PO PRN (20:30)
--- NOTE | 2019-04-13 20:45 | NUR ---
The patient, BRYANT LOCKHART, 78 y/o, F admitted by CHLOE SCHAFER MD, was given written information regarding hospital policies, unit procedures and contact persons. Patient was transported from ED to room 408 via bed and daughter at bedside at this time. RN performed a head to toe assessment at that time, VSS, afebrile, pain rated 0/10. Bed is in lowest locked position and call light is within reach. Valuables were checked and left in the room with the patient. RN will continue to monitor patient closely.
[2019-04-13 20:50] VITALS: BP 120/56
--- NOTE | 2019-04-13 21:40 | PDOC1 ---
History and Physical Date of Admission Date of Admission DATE: 04/13/19 TIME: 21:35 Identification/Chief Complaint Chief Complaint plantar heel wound, left Source Source: Caregiver, Chart review, Patient History of Present Illness History of Present Illness 78 female, fluent citizen of [place], accompanied by dtr, has been going to wound care x 9 MOS for THAT left plantar heel wound, now xray shows possible oSTEO, hence admitted, ONly allergy to latex,. ALso HD pt, complaint, looks comfortable and non toxic, no fevers, no leukocytosis, never had osteo before. AMenable to MRI if needed. DM but with very good BS (120s at home). xray: IMPRESSION: 1. Soft tissue thickening presumably a plantar ulcer overlying the first MTP joint. Ill-defined lucencies of the underlying distal first metatarsal raising the possibility of areas of bone lysis due to osteomyelitis. Secondarily this could be a summation density artifact of overlapping soft tissue emphysema, as these lucencies are less apparent on the AP and oblique views. MR imaging has greater sensitivity for characterizing osteomyelitis. 2. Erosive arthropathy with a pencil in cup deformity involving the MTP joints, suggestive of an inflammatory arthritis, including psoriatic arthritis, although rheumatoid arthritis or erosive osteoarthritis would also be considerations. Past Medical History Cardiovascular: CAD, HTN, Hyperlipidemia GI: Other Heme/Onc: No pertinent hx Psych: No pertinent hx Rheumatologic: No pertinent hx Infectious disease: No pertinent hx Renal/: Chronic renal failure, UTI, Hematuria, Other Endocrine: Diabetes, Hyperparathyroidism Past Surgical History Past Surgical History: CABG, Cystoscopy, Other Family History Family History: Hypertension, Other Social History Smoke: No ALCOHOL: none Drugs: None Current Medications Current Medications Current Medications Vancomycin HCl 1.5 gm/Sodium Chloride 500 ml @ 250 mls/hr 1X ONCE IV Last administered on 04/13/19at 20:06; Start 04/13/19 at 19:45; Stop 04/13/19 at 21:44 Ceftriaxone Sodium (Rocephin) 2 gm 1X ONCE IVP Last administered on 04/13/19at 20:06; Start 04/13/19 at 19:45; Stop 04/13/19 at 19:46; Status DC Ondansetron HCl (Zofran) 4 mg PRN Q8HRS PRN IV NAUSEA/VOMITING Last administered on 04/13/19at 20:19; Start 04/13/19 at 19:45; Stop 04/13/19 at 20:25; Status DC Fentanyl Citrate (Fentanyl 2ml Vial) 50 mcg PRN Q1HR PRN IV PAIN; Start 04/13/19 at 19:45; Stop 04/13/19 at 20:25; Status DC Acetaminophen (Tylenol) 650 mg PRN Q4HRS PRN PO FEVER; Start 04/13/19 at 19:45; Stop 04/14/19 at 19:44 Fentanyl Citrate (Fentanyl 2ml Vial) 50 mcg PRN Q2HR PRN IV PAIN; Start 04/13/19 at 20:30 Ondansetron HCl (Zofran) 4 mg PRN Q6HRS PRN IV NAUSEA/VOMITING; Start 04/13/19 at 20:30 Insulin Human Lispro (HumaLOG) 0-9 UNITS TIDWMEALS SQ ; Start 04/14/19 at 08:00 Dextrose (Dextrose 50%-Water Syringe) 12.5 gm PRN Q15MIN PRN IV SEE COMMENTS; Start 04/13/19 at 20:30 Dextrose 250 ml PRN Q15MIN PRN IV SEE COMMENTS; Start 04/13/19 at 20:30 Vancomycin HCl (Vanco Per Pharmacy) 1 each PRN DAILY PRN MC SEE COMMENTS; Start 04/13/19 at 20:30 Piperacillin Sod/ Tazobactam Sod (Zosyn Per Pharmacy) 1 each PRN DAILY PRN MC SEE COMMENTS; Start 04/13/19 at 20:30 Clonidine HCl (Catapres) 0.1 mg PRN Q1HR PRN PO HYPERTENSION; Start 04/13/19 at 20:30 Acetaminophen/ Hydrocodone Bitart (Lortab 5/325) 1 tab PRN Q4HRS PRN PO PAIN; Start 04/13/19 at 20:30 Acetaminophen (Tylenol) 500 mg PRN Q6HRS PRN PO MILD PAIN / TEMP; Start 04/13/19 at 20:30 Temazepam (Restoril) 7.5 mg PRN QHS PRN PO INSOMNIA; Start 04/13/19 at 20:30 Aspirin (Ecotrin) 81 mg DAILY08 PO ; Start 04/14/19 at 08:00 Estradiol (Estrace) 1 scotty 3X/WEEK VG ; Start 04/16/19 at 09:00 Insulin Glargine (Lantus) 6 units QHS SQ ; Start 04/13/19 at 21:00 Calcium Acetate (Phoslo) 1,334 mg TIDWMEALS PO ; Start 04/14/19 at 08:00 Insulin Human Lispro (HumaLOG) 6 units TIDWMEALS SQ ; Start 04/14/19 at 08:00 Vitamin B Complex/ Vitamin C (Funmi-Hannah) 1 tab DAILY PO ; Start 04/14/19 at 09:00 Active Scripts Active Keflex (Cephalexin) 500 Mg Capsule 1,000 Mg PO BID 7 Days Estrace (Estradiol) 42.5 Gm Cream.appl 1 Scotty VG 3X/WEEK 14 Days Reported Funmi-Hannah Rx Tablet (Vit B Cmplx 3/Fa/Vit C/Biotin) 1 Each Tablet 1 Each PO DAILY Amox Tr-K Clv 875-125 Mg Tab (Amoxicillin/Potassium Clav) 1 Each Tablet 1 Tab PO BID Novolog (Insulin Aspart) 100 Unit/1 Ml Cartridge 6 Unit SQ TIDAC Lantus Solostar (Insulin Glargine,Hum.rec.anlog) 100 Unit/1 Ml Insuln.pen 6 Unit SQ QHS [regrenex] TOP DAILY PRN Calcium Acetate 667 Mg Tablet 2 Cap PO TIDAC Aspir 81 (Aspirin) 81 Mg Tablet. 1 Tab PO DAILY08 Allergies Allergies: Coded Allergies: latex (Verified Allergy, Intermediate, Rash, 12/30/17) ROS Review of System left plantar heel pain, otherwise all else 14 pt neg Physical Exam General: Alert, Oriented X3, Cooperative, No acute distress HEENT: Atraumatic, PERRLA, EOMI Lungs: Clear to auscultation, Normal air movement Heart: S1S2, RRR, no thrills, no rubs, no gallops, no murmurs Cardiovascular: S1 Breasts: Normal, Rt breast nml w/o mass, Lt breast nml w/o mass, Nipples normal Abdomen: Normal bowel sounds, Soft, No tenderness, No hepatosplenomegaly, No masses Rectal Exam: not examined Extremities: No clubbing, No cyanosis, No edema, Normal pulses, No tenderness/swelling Skin: Other (left round coin like lesion, left plantar foot, no oozing or foul smelling dc) Neuro: Normal gait, Normal speech, Strength at 5/5 X4 ext, Normal tone, Sensation intact, Cranial nerves 3-12 NL, Reflexes 2+ Psych/Mental Status: Mental status NL, Mood NL Vitals Vitals Vital Signs Date Time Temp Pulse Resp B/P (MAP) Pulse Ox O2 Delivery O2 Flow Rate FiO2 04/13/19 20:27 91 16 140/60 (86) Room Air 04/13/19 19:57 92 04/13/19 18:02 98.3 98.3 Labs Labs Laboratory Tests Test 04/13/19 17:10 04/13/19 18:40 04/13/19 21:13 Sodium Level 138 mmol/L (136-145) Potassium Level 3.8 mmol/L (3.5-5.1) Chloride Level 99 mmol/L (98-107) Carbon Dioxide Level 32 mmol/L (21-32) Anion Gap 7 (6-14) Blood Urea Nitrogen 26 mg/dL (7-20) Creatinine 4.3 mg/dL (0.6-1.0) Estimated GFR (Cockcroft-Gault) 10.0 BUN/Creatinine Ratio 6 (6-20) Glucose Level 236 mg/dL (70-99) Calcium Level 8.3 mg/dL (8.5-10.1) Total Bilirubin 0.3 mg/dL (0.2-1.0) Aspartate Amino Transf (AST/SGOT) 47 U/L (15-37) Alanine Aminotransferase (ALT/SGPT) 33 U/L (14-59) Alkaline Phosphatase 241 U/L (46-116) Total Protein 7.9 g/dL (6.4-8.2) Albumin 2.8 g/dL (3.4-5.0) Albumin/Globulin Ratio 0.5 (1.0-1.7) White Blood Count 5.4 x10^3/uL (4.0-11.0) Red Blood Count 3.68 x10^6/uL (3.50-5.40) Hemoglobin 12.5 g/dL (12.0-15.5) Hematocrit 36.8 % (36.0-47.0) Mean Corpuscular Volume 100 fL (79-100) Mean Corpuscular Hemoglobin 34 pg (25-35) Mean Corpuscular Hemoglobin Concent 34 g/dL (31-37) Red Cell Distribution Width 15.7 % (11.5-14.5) Platelet Count 165 x10^3/uL (140-400) Neutrophils (%) (Auto) 64 % (31-73) Lymphocytes (%) (Auto) 22 % (24-48) Monocytes (%) (Auto) 11 % (0-9) Eosinophils (%) (Auto) 3 % (0-3) Basophils (%) (Auto) 1 % (0-3) Neutrophils # (Auto) 3.4 x10^3/uL (1.8-7.7) Lymphocytes # (Auto) 1.2 x10^3/uL (1.0-4.8) Monocytes # (Auto) 0.6 x10^3/uL (0.0-1.1) Eosinophils # (Auto) 0.1 x10^3/uL (0.0-0.7) Basophils # (Auto) 0.1 x10^3/uL (0.0-0.2) Lactic Acid Level 1.5 mmol/L (0.4-2.0) Glucose (Fingerstick) 245 mg/dL (70-99) Laboratory Tests Test 04/13/19 17:10 04/13/19 18:40 04/13/19 21:13 Sodium Level 138 mmol/L (136-145) Potassium Level 3.8 mmol/L (3.5-5.1) Chloride Level 99 mmol/L (98-107) Carbon Dioxide Level 32 mmol/L (21-32) Anion Gap 7 (6-14) Blood Urea Nitrogen 26 mg/dL (7-20) Creatinine 4.3 mg/dL (0.6-1.0) Estimated GFR (Cockcroft-Gault) 10.0 BUN/Creatinine Ratio 6 (6-20) Glucose Level 236 mg/dL (70-99) Calcium Level 8.3 mg/dL (8.5-10.1) Total Bilirubin 0.3 mg/dL (0.2-1.0) Aspartate Amino Transf (AST/SGOT) 47 U/L (15-37) Alanine Aminotransferase (ALT/SGPT) 33 U/L (14-59) Alkaline Phosphatase 241 U/L (46-116) Total Protein 7.9 g/dL (6.4-8.2) Albumin 2.8 g/dL (3.4-5.0) Albumin/Globulin Ratio 0.5 (1.0-1.7) White Blood Count 5.4 x10^3/uL (4.0-11.0) Red Blood Count 3.68 x10^6/uL (3.50-5.40) Hemoglobin 12.5 g/dL (12.0-15.5) Hematocrit 36.8 % (36.0-47.0) Mean Corpuscular Volume 100 fL (79-100) Mean Corpuscular Hemoglobin 34 pg (25-35) Mean Corpuscular Hemoglobin Concent 34 g/dL (31-37) Red Cell Distribution Width 15.7 % (11.5-14.5) Platelet Count 165 x10^3/uL (140-400) Neutrophils (%) (Auto) 64 % (31-73) Lymphocytes (%) (Auto) 22 % (24-48) Monocytes (%) (Auto) 11 % (0-9) Eosinophils (%) (Auto) 3 % (0-3) Basophils (%) (Auto) 1 % (0-3) Neutrophils # (Auto) 3.4 x10^3/uL (1.8-7.7) Lymphocytes # (Auto) 1.2 x10^3/uL (1.0-4.8) Monocytes # (Auto) 0.6 x10^3/uL (0.0-1.1) Eosinophils # (Auto) 0.1 x10^3/uL (0.0-0.7) Basophils # (Auto) 0.1 x10^3/uL (0.0-0.2) Lactic Acid Level 1.5 mmol/L (0.4-2.0) Glucose (Fingerstick) 245 mg/dL (70-99) VTE Prophylaxis Ordered VTE Prophylaxis Devices: Yes VTE Pharmacological Prophylaxi: Yes Assessment/Plan Assessment/Plan Left plantar heel wound concerning for osteo ESRD on HD, compliant AOCD HTN, CABG chronic stable DM 2 with good control PLAn: 2 MN, med surg FULL CODE WOund care, ID, IV abx I started SSI I reconciled home meds PAin meds HD per renal Add esr I helf off MRI for now PT.OT dw dtr CHLOE SCHAFER MD Apr 13, 2019 21:40
[2019-04-13] MEDS: INSULIN GLARGINE 300 UNITS/3 ML INSULN.PEN. SQ SCH (22:25)
[2019-04-13] MEDS: PIPERACILLIN/TAZOBACTAM 2.25 GM in IV NORMAL SALINE 50ML 50 ML IV SCH (22:42)
[2019-04-13 23:05] VITALS: BP 104/44
[2019-04-14] MEDS: VANCOMYCIN PER PHARMACY MC PRN (01:27)
--- NOTE | 2019-04-14 01:28 | NUR ---
Pharmacy Vancomycin Dosing Note S:Consulted to monitor and dose vancomycin started 04/13/19. O:BRYANT LOCKHART is a 78 year old F with Osteomyelitis . Height: 5 feet, 4 inches Weight: 60.052456 kg [place] Body Weight: 54.70 Adjusted Body Weight: 57.02 Dosing Weight: Actual Other Antibiotics: ZOSYN 2.25 GM Q8H LABS: Last BUN: 26 Last Creatinine: 4.3 Creatinine Clearance: HD mL/min Last WBC: 5.4 Last Procalcitonin: Tmax (past 24 hours): Microbiology: I/O: Drug Levels: Last level: on at Last dose given 04/13/19 at 2000 Vancomycin Dosing: Loading Dose: 1500 mg x1 Dosing Weight: Actual Target Trough: 15-20 A: Based on: DIALYSIS P: 1. Begin Vancomycin 500 mg IV Dose Per Levels 2. Follow up level DAY OF DIALYSIS 3. Pharmacy will continue to monitor, follow and adjust therapy as needed. REKHA ARIAS RPH, 04/14/19 0128 Signed: 04/14/19 at 127 by REKHA ARIAS RPH PHA
[2019-04-14 03:00] VITALS: BP 115/50
[2019-04-14] MEDS: PIPERACILLIN/TAZOBACTAM 2.25 GM in IV NORMAL SALINE 50ML 50 ML IV SCH (05:39)
[2019-04-14 07:00] VITALS: BP 128/95
[2019-04-14] MEDS: ASPIRIN ENTERIC COATED 81 MG TABLET.DR. PO SCH (07:38)
[2019-04-14] MEDS: INSULIN LISPRO 300 UNITS/3 ML VIAL. SQ SCH ×6 (07:38→17:20)
[2019-04-14] MEDS: CALCIUM ACETATE 667 MG CAPSULE PO SCH ×3 (07:38→16:51)
--- NOTE | 2019-04-14 10:32 | PDOC ---
Infectious Disease Note Vital Sign Vital Signs Vital Signs Date Time Temp Pulse Resp B/P (MAP) Pulse Ox O2 Delivery O2 Flow Rate FiO2 04/14/19 07:00 98.4 85 18 128/95 (106) 96 Room Air 98.4 Labs Lab Laboratory Tests Test 04/13/19 17:10 04/13/19 18:40 04/13/19 21:13 04/14/19 05:36 Sodium Level 138 mmol/L (136-145) Potassium Level 3.8 mmol/L (3.5-5.1) Chloride Level 99 mmol/L (98-107) Carbon Dioxide Level 32 mmol/L (21-32) Anion Gap 7 (6-14) Blood Urea Nitrogen 26 mg/dL (7-20) Creatinine 4.3 mg/dL (0.6-1.0) Estimated GFR (Cockcroft-Gault) 10.0 BUN/Creatinine Ratio 6 (6-20) Glucose Level 236 mg/dL (70-99) Calcium Level 8.3 mg/dL (8.5-10.1) Total Bilirubin 0.3 mg/dL (0.2-1.0) Aspartate Amino Transf (AST/SGOT) 47 U/L (15-37) Alanine Aminotransferase (ALT/SGPT) 33 U/L (14-59) Alkaline Phosphatase 241 U/L (46-116) Total Protein 7.9 g/dL (6.4-8.2) Albumin 2.8 g/dL (3.4-5.0) Albumin/Globulin Ratio 0.5 (1.0-1.7) White Blood Count 5.4 x10^3/uL (4.0-11.0) Red Blood Count 3.68 x10^6/uL (3.50-5.40) Hemoglobin 12.5 g/dL (12.0-15.5) Hematocrit 36.8 % (36.0-47.0) Mean Corpuscular Volume 100 fL (79-100) Mean Corpuscular Hemoglobin 34 pg (25-35) Mean Corpuscular Hemoglobin Concent 34 g/dL (31-37) Red Cell Distribution Width 15.7 % (11.5-14.5) Platelet Count 165 x10^3/uL (140-400) Neutrophils (%) (Auto) 64 % (31-73) Lymphocytes (%) (Auto) 22 % (24-48) Monocytes (%) (Auto) 11 % (0-9) Eosinophils (%) (Auto) 3 % (0-3) Basophils (%) (Auto) 1 % (0-3) Neutrophils # (Auto) 3.4 x10^3/uL (1.8-7.7) Lymphocytes # (Auto) 1.2 x10^3/uL (1.0-4.8) Monocytes # (Auto) 0.6 x10^3/uL (0.0-1.1) Eosinophils # (Auto) 0.1 x10^3/uL (0.0-0.7) Basophils # (Auto) 0.1 x10^3/uL (0.0-0.2) Erythrocyte Sedimentation Rate 86 (0-25) Lactic Acid Level 1.5 mmol/L (0.4-2.0) Glucose (Fingerstick) 245 mg/dL (70-99) 120 mg/dL (70-99) Test 04/14/19 07:19 Glucose (Fingerstick) 126 mg/dL (70-99) Objective Assessment 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 ESR 86 CKD on hemodialyses via AV fistula h/o Enterobacter wound infection h/o ESBL in urine Plan Plan of Care Switch to meropenem and continue vancomycin for now Will need a MRI to rule out osteo D/w daughter at bedside Thank you [id number] Attending Co-Sign The patient was seen and interviewed as well as examined at the bedside. The chart was reviewed. The case was discussed. Agree with the plan of care. MANA SKY APRN Apr 14, 2019 10:32 ANA CRISTINA العلي MD Apr 14, 2019 12:26
[2019-04-14 11:00] VITALS: BP 102/60
--- NOTE | 2019-04-14 11:08 | PDOC2 ---
CONSULT Date of Consult Date of Consult DATE: 04/14/19 TIME: 11:05 Reason for Consult Reason for Consult: ESRD Referring Physician Referring Physician: GILMAR Identification/Chief Complaint Chief Complaint LEFT HEEL PAIN Source Source: Chart review, Patient History of Present Illness Reason for Visit: THIS IS A 78 YR OLD ESRD PT WITH OP HD ON MWF. ADMITTED WITH LEFT HEEL PAIN AND DX WITH OSTEOMYELITIS. SHE WENT TO HER HD ON TUESDAY. SHE IS COMPLIANT WITH HER HD. SHE NEEDS IV ANTIBIOTICS. HER ESRD IS DUE TO HTN AND DM II. LABS ARE C/W HER ESRD Past Medical History Cardiovascular: CAD, HTN, Hyperlipidemia GI: Other Heme/Onc: No pertinent hx Psych: No pertinent hx Rheumatologic: No pertinent hx Infectious disease: No pertinent hx Renal/: Chronic renal failure, UTI, Hematuria, Other Endocrine: Diabetes, Hyperparathyroidism Past Surgical History Past Surgical History: CABG, Cystoscopy, Other Family History Family History: Hypertension, Other Social History No ALCOHOL: none Drugs: None Lives: with Family Current Medications Current Medications Current Medications Vancomycin HCl 1.5 gm/Sodium Chloride 500 ml @ 250 mls/hr 1X ONCE IV Last administered on 04/13/19at 20:06; Start 04/13/19 at 19:45; Stop 04/13/19 at 21:44; Status DC Ceftriaxone Sodium (Rocephin) 2 gm 1X ONCE IVP Last administered on 04/13/19at 20:06; Start 04/13/19 at 19:45; Stop 04/13/19 at 19:46; Status DC Ondansetron HCl (Zofran) 4 mg PRN Q8HRS PRN IV NAUSEA/VOMITING Last administered on 04/13/19at 20:19; Start 04/13/19 at 19:45; Stop 04/13/19 at 20:25; Status DC Fentanyl Citrate (Fentanyl 2ml Vial) 50 mcg PRN Q1HR PRN IV PAIN; Start 04/13/19 at 19:45; Stop 04/13/19 at 20:25; Status DC Acetaminophen (Tylenol) 650 mg PRN Q4HRS PRN PO FEVER; Start 04/13/19 at 19:45; Stop 04/14/19 at 19:44 Fentanyl Citrate (Fentanyl 2ml Vial) 50 mcg PRN Q2HR PRN IV PAIN; Start 04/13/19 at 20:30 Ondansetron HCl (Zofran) 4 mg PRN Q6HRS PRN IV NAUSEA/VOMITING; Start 04/13/19 at 20:30 Insulin Human Lispro (HumaLOG) 0-9 UNITS TIDWMEALS SQ ; Start 04/14/19 at 08:00 Dextrose (Dextrose 50%-Water Syringe) 12.5 gm PRN Q15MIN PRN IV SEE COMMENTS; Start 04/13/19 at 20:30 Dextrose 250 ml PRN Q15MIN PRN IV SEE COMMENTS; Start 04/13/19 at 20:30 Vancomycin HCl (Vanco Per Pharmacy) 1 each PRN DAILY PRN MC SEE COMMENTS Last administered on 04/14/19at 01:27; Start 04/13/19 at 20:30 Piperacillin Sod/ Tazobactam Sod (Zosyn Per Pharmacy) 1 each PRN DAILY PRN MC SEE COMMENTS; Start 04/13/19 at 20:30; Stop 04/14/19 at 10:36; Status DC Clonidine HCl (Catapres) 0.1 mg PRN Q1HR PRN PO HYPERTENSION; Start 04/13/19 at 20:30 Acetaminophen/ Hydrocodone Bitart (Lortab 5/325) 1 tab PRN Q4HRS PRN PO PAIN; Start 04/13/19 at 20:30 Acetaminophen (Tylenol) 500 mg PRN Q6HRS PRN PO MILD PAIN / TEMP; Start 04/13/19 at 20:30 Temazepam (Restoril) 7.5 mg PRN QHS PRN PO INSOMNIA; Start 04/13/19 at 20:30 Aspirin (Ecotrin) 81 mg DAILY08 PO Last administered on 04/14/19at 08:05; Start 04/14/19 at 08:00 Estradiol (Estrace) 1 scotty 3X/WEEK VG ; Start 04/16/19 at 09:00 Insulin Glargine (Lantus) 6 units QHS SQ Last administered on 04/13/19at 22:26; Start 04/13/19 at 21:00 Calcium Acetate (Phoslo) 1,334 mg TIDWMEALS PO Last administered on 04/14/19at 08:05; Start 04/14/19 at 08:00 Insulin Human Lispro (HumaLOG) 6 units TIDWMEALS SQ Last administered on 04/14/19at 08:05; Start 04/14/19 at 08:00 Vitamin B Complex/ Vitamin C (Funmi-Hannah) 1 tab DAILY PO ; Start 04/14/19 at 09:00 Piperacillin Sod/ Tazobactam Sod 2.25 gm/Sodium Chloride 50 ml @ 100 mls/hr Q8HRS IV Last administered on 04/14/19at 05:39; Start 04/13/19 at 22:30; Stop 04/14/19 at 10:36; Status DC Meropenem 500 mg/ Sodium Chloride 50 ml @ 100 mls/hr DAILY IV ; Start 04/14/19 at 11:00 Active Scripts Active Keflex (Cephalexin) 500 Mg Capsule 1,000 Mg PO BID 7 Days Estrace (Estradiol) 42.5 Gm Cream.appl 1 Scotty VG 3X/WEEK 14 Days Reported Funmi-Hannah Rx Tablet (Vit B Cmplx 3/Fa/Vit C/Biotin) 1 Each Tablet 1 Each PO DAILY Amox Tr-K Clv 875-125 Mg Tab (Amoxicillin/Potassium Clav) 1 Each Tablet 1 Tab PO BID Novolog (Insulin Aspart) 100 Unit/1 Ml Cartridge 6 Unit SQ TIDAC Lantus Solostar (Insulin Glargine,Hum.rec.anlog) 100 Unit/1 Ml Insuln.pen 6 Unit SQ QHS [regrenex] TOP DAILY PRN Calcium Acetate 667 Mg Tablet 2 Cap PO TIDAC Aspir 81 (Aspirin) 81 Mg Tablet. 1 Tab PO DAILY08 Allergies Allergies: Coded Allergies: latex (Verified Allergy, Intermediate, Rash, 12/30/17) ROS General: YES: Fatigue, Malaise PSYCHOLOGICAL ROS: YES: Anxiety Eyes: Yes Blurry vision, Yes Decreased vision HEENT: YES: Laura ALLERGY AND IMMUNOLOGY: YES: Seasonal Allergies Respiratory: YES: Cough Gastrointestinal: Yes Constipation Genitourinary: YES Other (ANURIA) Musculoskeletal: Yes Joint Pain, Yes Joint Stiffness, Yes Muscular Weakness Skin: Yes Dry Skin Physical Exam General: Alert, Oriented X3, Cooperative, No acute distress HEENT: Atraumatic, PERRLA, EOMI, Mucous membr. moist/pink Lungs: Clear to auscultation, Normal air movement Heart: Regular rate, Normal S1, Normal S2 Abdomen: Normal bowel sounds, Soft Extremities: No clubbing Skin: No breakdown Neuro: Normal speech, Sensation intact, Cranial nerves 3-12 NL Psych/Mental Status: Mental status NL, Mood NL MUSCULOSKELETAL: No joint tenderness, No deformity, No swelling Vitals VITALS Vital Signs Date Time Temp Pulse Resp B/P (MAP) Pulse Ox O2 Delivery O2 Flow Rate FiO2 04/14/19 07:00 98.4 85 18 128/95 (106) 96 Room Air 98.4 Labs Labs Laboratory Tests Test 04/13/19 17:10 04/13/19 18:40 04/13/19 21:13 04/14/19 05:36 Sodium Level 138 mmol/L (136-145) Potassium Level 3.8 mmol/L (3.5-5.1) Chloride Level 99 mmol/L (98-107) Carbon Dioxide Level 32 mmol/L (21-32) Anion Gap 7 (6-14) Blood Urea Nitrogen 26 mg/dL (7-20) Creatinine 4.3 mg/dL (0.6-1.0) Estimated GFR (Cockcroft-Gault) 10.0 BUN/Creatinine Ratio 6 (6-20) Glucose Level 236 mg/dL (70-99) Calcium Level 8.3 mg/dL (8.5-10.1) Total Bilirubin 0.3 mg/dL (0.2-1.0) Aspartate Amino Transf (AST/SGOT) 47 U/L (15-37) Alanine Aminotransferase (ALT/SGPT) 33 U/L (14-59) Alkaline Phosphatase 241 U/L (46-116) Total Protein 7.9 g/dL (6.4-8.2) Albumin 2.8 g/dL (3.4-5.0) Albumin/Globulin Ratio 0.5 (1.0-1.7) White Blood Count 5.4 x10^3/uL (4.0-11.0) Red Blood Count 3.68 x10^6/uL (3.50-5.40) Hemoglobin 12.5 g/dL (12.0-15.5) Hematocrit 36.8 % (36.0-47.0) Mean Corpuscular Volume 100 fL (79-100) Mean Corpuscular Hemoglobin 34 pg (25-35) Mean Corpuscular Hemoglobin Concent 34 g/dL (31-37) Red Cell Distribution Width 15.7 % (11.5-14.5) Platelet Count 165 x10^3/uL (140-400) Neutrophils (%) (Auto) 64 % (31-73) Lymphocytes (%) (Auto) 22 % (24-48) Monocytes (%) (Auto) 11 % (0-9) Eosinophils (%) (Auto) 3 % (0-3) Basophils (%) (Auto) 1 % (0-3) Neutrophils # (Auto) 3.4 x10^3/uL (1.8-7.7) Lymphocytes # (Auto) 1.2 x10^3/uL (1.0-4.8) Monocytes # (Auto) 0.6 x10^3/uL (0.0-1.1) Eosinophils # (Auto) 0.1 x10^3/uL (0.0-0.7) Basophils # (Auto) 0.1 x10^3/uL (0.0-0.2) Erythrocyte Sedimentation Rate 86 (0-25) Lactic Acid Level 1.5 mmol/L (0.4-2.0) Glucose (Fingerstick) 245 mg/dL (70-99) 120 mg/dL (70-99) Test 04/14/19 07:19 Glucose (Fingerstick) 126 mg/dL (70-99) Laboratory Tests Test 04/13/19 17:10 04/13/19 18:40 04/13/19 21:13 04/14/19 05:36 Sodium Level 138 mmol/L (136-145) Potassium Level 3.8 mmol/L (3.5-5.1) Chloride Level 99 mmol/L (98-107) Carbon Dioxide Level 32 mmol/L (21-32) Anion Gap 7 (6-14) Blood Urea Nitrogen 26 mg/dL (7-20) Creatinine 4.3 mg/dL (0.6-1.0) Estimated GFR (Cockcroft-Gault) 10.0 BUN/Creatinine Ratio 6 (6-20) Glucose Level 236 mg/dL (70-99) Calcium Level 8.3 mg/dL (8.5-10.1) Total Bilirubin 0.3 mg/dL (0.2-1.0) Aspartate Amino Transf (AST/SGOT) 47 U/L (15-37) Alanine Aminotransferase (ALT/SGPT) 33 U/L (14-59) Alkaline Phosphatase 241 U/L (46-116) Total Protein 7.9 g/dL (6.4-8.2) Albumin 2.8 g/dL (3.4-5.0) Albumin/Globulin Ratio 0.5 (1.0-1.7) White Blood Count 5.4 x10^3/uL (4.0-11.0) Red Blood Count 3.68 x10^6/uL (3.50-5.40) Hemoglobin 12.5 g/dL (12.0-15.5) Hematocrit 36.8 % (36.0-47.0) Mean Corpuscular Volume 100 fL (79-100) Mean Corpuscular Hemoglobin 34 pg (25-35) Mean Corpuscular Hemoglobin Concent 34 g/dL (31-37) Red Cell Distribution Width 15.7 % (11.5-14.5) Platelet Count 165 x10^3/uL (140-400) Neutrophils (%) (Auto) 64 % (31-73) Lymphocytes (%) (Auto) 22 % (24-48) Monocytes (%) (Auto) 11 % (0-9) Eosinophils (%) (Auto) 3 % (0-3) Basophils (%) (Auto) 1 % (0-3) Neutrophils # (Auto) 3.4 x10^3/uL (1.8-7.7) Lymphocytes # (Auto) 1.2 x10^3/uL (1.0-4.8) Monocytes # (Auto) 0.6 x10^3/uL (0.0-1.1) Eosinophils # (Auto) 0.1 x10^3/uL (0.0-0.7) Basophils # (Auto) 0.1 x10^3/uL (0.0-0.2) Erythrocyte Sedimentation Rate 86 (0-25) Lactic Acid Level 1.5 mmol/L (0.4-2.0) Glucose (Fingerstick) 245 mg/dL (70-99) 120 mg/dL (70-99) Test 04/14/19 07:19 Glucose (Fingerstick) 126 mg/dL (70-99) Assessment/Plan Assessment/Plan IMP ESRD DM II HTN ANEMIA LEFT HEEL OSTEO PLAN HD MWF ARANESP WHEN NEEDED ANTIBIOTICS WOUND CARE UPDATED DAUGHTER MELONIE GUAMAN MD Apr 14, 2019 11:08
--- NOTE | 2019-04-14 11:38 | CONS ---
DATE OF CONSULTATION: 04/14/2019 REQUESTING PHYSICIAN: Lyn Godfrey MD REASON FOR CONSULTATION: Foot infection. HISTORY OF PRESENT ILLNESS: This patient is a 78-year-old with history of chronic kidney disease, on hemodialysis, and diabetes who says she has had a callus or corn on the bottom of her left foot for several months. About 2 days ago, she noticed a blister nearby that started to drain. Her daughter cleaned the area with soap and water. An x-ray of the foot showed soft tissue thickening, presumably a plantar ulcer overlying the first MTP joint, ill-defined lucencies of the underlying distal first metatarsal raising the possibility of areas of bone lysis due to osteomyelitis, and other findings suggestive of inflammatory arthritis. Blood cultures were ordered. She is on vancomycin and Zosyn. The patient says she is feeling well. She denies fevers, chills, sweats or body aches. Denies pain or neuropathy. Her glucose readings at home have been stable. She wears diabetic shoes. She has a history of diabetic ulcers on the sides of her left foot that have since healed. Denies recent antibiotics. She is followed by [facility] and , Podiatry, about every 3 months. She had an appointment next Tuesday. However, her daughter felt that she needed to be seen sooner and brought her to [place] for evaluation. PAST MEDICAL HISTORY: Chronic kidney disease on hemodialysis via AV fistula, history of ESBL UTI, hypertension, diabetes, coronary artery disease, hyperlipidemia, peripheral neuropathy, obesity, kidney stones, history of colon cancer, history of bilateral hydronephrosis status post stent placement and removal, history of Enterobacter cloacae left foot infection. PAST SURGICAL HISTORY: I and D of the foot. Cataract extraction. AV fistula creation. Coronary artery bypass graft. Left and right ankle surgeries. FAMILY HISTORY: Diabetes. SOCIAL HISTORY: Lives at home. ALLERGIES: LATEX. MEDICATIONS: Vancomycin and Zosyn. Other medications are available and have been reviewed on the OCT. REVIEW OF SYSTEMS: Per HPI, otherwise all other review of systems are negative. PHYSICAL EXAMINATION: VITAL SIGNS: Temperature 98.4, blood pressure 128/95, heart rate 85, respiratory rate 18, pulse oximetry is 96% on room air. BMI is 22. GENERAL: The patient is propped up in bed, alert, in no apparent distress. HEENT: Pupils are equally round and reactive. Normal conjunctivae. Oropharynx is pink and moist. NECK: Supple. LUNGS: Clear to auscultation. HEART: S1 and S2. ABDOMEN: Soft and nontender with bowel sounds present. EXTREMITIES: No gross edema or cyanosis. Distal pulse is palpable. She has a plantar callus with an adjacent ruptured blister along with some maceration between the toes. There is no redness or drainage. Nontender. SKIN: Warm to touch. No signs of rash. NEUROLOGIC: Alert and oriented x 3. LABORATORY DATA: On admission, WBC was 5.4, hemoglobin 12.5, platelets 165,000. Sed rate 86. Creatinine 4.3, BUN 26. Electrolytes are unremarkable. Glucose 236. Lactic acid 1.5. Total bilirubin 0.3, AST 47, ALT 33, albumin 2.8. Blood cultures pending. ASSESSMENT: 1. Diabetic ulcer, left foot with questionable osteomyelitis on x-ray. 2. Chronic kidney disease, on hemodialysis via AV fistula. 3. History of Enterobacter wound infection. 4. History of extended spectrum beta-lactamase in urine. PLAN: Switch to meropenem and continue the vancomycin for now. Will need an MRI to rule out osteo. We will continue to follow along. Discussed with daughter at bedside. Thank you, Dr. Godfrey, for asking us to participate in this patient's care. Should you have further questions or concerns, please call. ANA CRISTINA العلي MD DR: DENTON/anthony JOB#: [id number] / [id number]
[2019-04-14] MEDS: FOLIC/VIT B COMP W-C (RENAL) TABLET. PO SCH (11:53)
[2019-04-14] MEDS: MEROPENEM 500 MG in IV NORMAL SALINE 50ML 50 ML IV SCH (11:53)
--- NOTE | 2019-04-14 13:40 | PDOC ---
PROGRESS NOTES Chief Complaint Chief Complaint Left plantar heel wound concerning for osteo ESRD on HD, compliant AOCD HTN, CABG chronic stable DM 2 with good control History of Present Illness History of Present Illness IV abx, ID following WOund care, ID, IV abx I started SSI I reconciled home meds PAin meds HD per renal Add esr I helf off MRI for now PT.OT Vitals Vitals Vital Signs Date Time Temp Pulse Resp B/P (MAP) Pulse Ox O2 Delivery O2 Flow Rate FiO2 04/14/19 11:00 97.6 84 18 102/60 (74) 97 Room Air 97.6 Physical Exam General: Alert, Oriented X3, Cooperative, No acute distress Heart: Regular rate, Normal S1, Normal S2 Lungs: Clear Abdomen: Normal bowel sounds, Soft Extremities: No clubbing Skin: No breakdown Labs LABS Laboratory Tests Test 04/13/19 17:10 04/13/19 18:40 04/13/19 21:13 04/14/19 05:36 Sodium Level 138 mmol/L (136-145) Potassium Level 3.8 mmol/L (3.5-5.1) Chloride Level 99 mmol/L (98-107) Carbon Dioxide Level 32 mmol/L (21-32) Anion Gap 7 (6-14) Blood Urea Nitrogen 26 mg/dL (7-20) Creatinine 4.3 mg/dL (0.6-1.0) Estimated GFR (Cockcroft-Gault) 10.0 BUN/Creatinine Ratio 6 (6-20) Glucose Level 236 mg/dL (70-99) Calcium Level 8.3 mg/dL (8.5-10.1) Total Bilirubin 0.3 mg/dL (0.2-1.0) Aspartate Amino Transf (AST/SGOT) 47 U/L (15-37) Alanine Aminotransferase (ALT/SGPT) 33 U/L (14-59) Alkaline Phosphatase 241 U/L (46-116) Total Protein 7.9 g/dL (6.4-8.2) Albumin 2.8 g/dL (3.4-5.0) Albumin/Globulin Ratio 0.5 (1.0-1.7) White Blood Count 5.4 x10^3/uL (4.0-11.0) Red Blood Count 3.68 x10^6/uL (3.50-5.40) Hemoglobin 12.5 g/dL (12.0-15.5) Hematocrit 36.8 % (36.0-47.0) Mean Corpuscular Volume 100 fL (79-100) Mean Corpuscular Hemoglobin 34 pg (25-35) Mean Corpuscular Hemoglobin Concent 34 g/dL (31-37) Red Cell Distribution Width 15.7 % (11.5-14.5) Platelet Count 165 x10^3/uL (140-400) Neutrophils (%) (Auto) 64 % (31-73) Lymphocytes (%) (Auto) 22 % (24-48) Monocytes (%) (Auto) 11 % (0-9) Eosinophils (%) (Auto) 3 % (0-3) Basophils (%) (Auto) 1 % (0-3) Neutrophils # (Auto) 3.4 x10^3/uL (1.8-7.7) Lymphocytes # (Auto) 1.2 x10^3/uL (1.0-4.8) Monocytes # (Auto) 0.6 x10^3/uL (0.0-1.1) Eosinophils # (Auto) 0.1 x10^3/uL (0.0-0.7) Basophils # (Auto) 0.1 x10^3/uL (0.0-0.2) Erythrocyte Sedimentation Rate 86 (0-25) Lactic Acid Level 1.5 mmol/L (0.4-2.0) Glucose (Fingerstick) 245 mg/dL (70-99) 120 mg/dL (70-99) Test 04/14/19 07:19 04/14/19 11:34 Glucose (Fingerstick) 126 mg/dL (70-99) 126 mg/dL (70-99) Comment Review of Relevant I have reviewed the following items anastasiya (where applicable) has been applied. Labs Laboratory Tests Test 04/13/19 17:10 04/13/19 18:40 04/13/19 21:13 04/14/19 05:36 Sodium Level 138 mmol/L (136-145) Potassium Level 3.8 mmol/L (3.5-5.1) Chloride Level 99 mmol/L (98-107) Carbon Dioxide Level 32 mmol/L (21-32) Anion Gap 7 (6-14) Blood Urea Nitrogen 26 mg/dL (7-20) Creatinine 4.3 mg/dL (0.6-1.0) Estimated GFR (Cockcroft-Gault) 10.0 BUN/Creatinine Ratio 6 (6-20) Glucose Level 236 mg/dL (70-99) Calcium Level 8.3 mg/dL (8.5-10.1) Total Bilirubin 0.3 mg/dL (0.2-1.0) Aspartate Amino Transf (AST/SGOT) 47 U/L (15-37) Alanine Aminotransferase (ALT/SGPT) 33 U/L (14-59) Alkaline Phosphatase 241 U/L (46-116) Total Protein 7.9 g/dL (6.4-8.2) Albumin 2.8 g/dL (3.4-5.0) Albumin/Globulin Ratio 0.5 (1.0-1.7) White Blood Count 5.4 x10^3/uL (4.0-11.0) Red Blood Count 3.68 x10^6/uL (3.50-5.40) Hemoglobin 12.5 g/dL (12.0-15.5) Hematocrit 36.8 % (36.0-47.0) Mean Corpuscular Volume 100 fL (79-100) Mean Corpuscular Hemoglobin 34 pg (25-35) Mean Corpuscular Hemoglobin Concent 34 g/dL (31-37) Red Cell Distribution Width 15.7 % (11.5-14.5) Platelet Count 165 x10^3/uL (140-400) Neutrophils (%) (Auto) 64 % (31-73) Lymphocytes (%) (Auto) 22 % (24-48) Monocytes (%) (Auto) 11 % (0-9) Eosinophils (%) (Auto) 3 % (0-3) Basophils (%) (Auto) 1 % (0-3) Neutrophils # (Auto) 3.4 x10^3/uL (1.8-7.7) Lymphocytes # (Auto) 1.2 x10^3/uL (1.0-4.8) Monocytes # (Auto) 0.6 x10^3/uL (0.0-1.1) Eosinophils # (Auto) 0.1 x10^3/uL (0.0-0.7) Basophils # (Auto) 0.1 x10^3/uL (0.0-0.2) Erythrocyte Sedimentation Rate 86 (0-25) Lactic Acid Level 1.5 mmol/L (0.4-2.0) Glucose (Fingerstick) 245 mg/dL (70-99) 120 mg/dL (70-99) Test 04/14/19 07:19 04/14/19 11:34 Glucose (Fingerstick) 126 mg/dL (70-99) 126 mg/dL (70-99) Laboratory Tests Test 04/13/19 17:10 04/13/19 18:40 04/13/19 21:13 04/14/19 05:36 Sodium Level 138 mmol/L (136-145) Potassium Level 3.8 mmol/L (3.5-5.1) Chloride Level 99 mmol/L (98-107) Carbon Dioxide Level 32 mmol/L (21-32) Anion Gap 7 (6-14) Blood Urea Nitrogen 26 mg/dL (7-20) Creatinine 4.3 mg/dL (0.6-1.0) Estimated GFR (Cockcroft-Gault) 10.0 BUN/Creatinine Ratio 6 (6-20) Glucose Level 236 mg/dL (70-99) Calcium Level 8.3 mg/dL (8.5-10.1) Total Bilirubin 0.3 mg/dL (0.2-1.0) Aspartate Amino Transf (AST/SGOT) 47 U/L (15-37) Alanine Aminotransferase (ALT/SGPT) 33 U/L (14-59) Alkaline Phosphatase 241 U/L (46-116) Total Protein 7.9 g/dL (6.4-8.2) Albumin 2.8 g/dL (3.4-5.0) Albumin/Globulin Ratio 0.5 (1.0-1.7) White Blood Count 5.4 x10^3/uL (4.0-11.0) Red Blood Count 3.68 x10^6/uL (3.50-5.40) Hemoglobin 12.5 g/dL (12.0-15.5) Hematocrit 36.8 % (36.0-47.0) Mean Corpuscular Volume 100 fL (79-100) Mean Corpuscular Hemoglobin 34 pg (25-35) Mean Corpuscular Hemoglobin Concent 34 g/dL (31-37) Red Cell Distribution Width 15.7 % (11.5-14.5) Platelet Count 165 x10^3/uL (140-400) Neutrophils (%) (Auto) 64 % (31-73) Lymphocytes (%) (Auto) 22 % (24-48) Monocytes (%) (Auto) 11 % (0-9) Eosinophils (%) (Auto) 3 % (0-3) Basophils (%) (Auto) 1 % (0-3) Neutrophils # (Auto) 3.4 x10^3/uL (1.8-7.7) Lymphocytes # (Auto) 1.2 x10^3/uL (1.0-4.8) Monocytes # (Auto) 0.6 x10^3/uL (0.0-1.1) Eosinophils # (Auto) 0.1 x10^3/uL (0.0-0.7) Basophils # (Auto) 0.1 x10^3/uL (0.0-0.2) Erythrocyte Sedimentation Rate 86 (0-25) Lactic Acid Level 1.5 mmol/L (0.4-2.0) Glucose (Fingerstick) 245 mg/dL (70-99) 120 mg/dL (70-99) Test 04/14/19 07:19 04/14/19 11:34 Glucose (Fingerstick) 126 mg/dL (70-99) 126 mg/dL (70-99) Medications Current Medications Vancomycin HCl 1.5 gm/Sodium Chloride 500 ml @ 250 mls/hr 1X ONCE IV Last administered on 04/13/19at 20:06; Start 04/13/19 at 19:45; Stop 04/13/19 at 21:44; Status DC Ceftriaxone Sodium (Rocephin) 2 gm 1X ONCE IVP Last administered on 04/13/19at 20:06; Start 04/13/19 at 19:45; Stop 04/13/19 at 19:46; Status DC Ondansetron HCl (Zofran) 4 mg PRN Q8HRS PRN IV NAUSEA/VOMITING Last administer ed on 04/13/19at 20:19; Start 04/13/19 at 19:45; Stop 04/13/19 at 20:25; Status DC Fentanyl Citrate (Fentanyl 2ml Vial) 50 mcg PRN Q1HR PRN IV PAIN; Start 04/13/19 at 19:45; Stop 04/13/19 at 20:25; Status DC Acetaminophen (Tylenol) 650 mg PRN Q4HRS PRN PO FEVER; Start 04/13/19 at 19:45; Stop 04/14/19 at 19:44 Fentanyl Citrate (Fentanyl 2ml Vial) 50 mcg PRN Q2HR PRN IV PAIN; Start 04/13/19 at 20:30 Ondansetron HCl (Zofran) 4 mg PRN Q6HRS PRN IV NAUSEA/VOMITING; Start 04/13/19 at 20:30 Insulin Human Lispro (HumaLOG) 0-9 UNITS TIDWMEALS SQ ; Start 04/14/19 at 08:00 Dextrose (Dextrose 50%-Water Syringe) 12.5 gm PRN Q15MIN PRN IV SEE COMMENTS; Start 04/13/19 at 20:30 Dextrose 250 ml PRN Q15MIN PRN IV SEE COMMENTS; Start 04/13/19 at 20:30 Vancomycin HCl (Vanco Per Pharmacy) 1 each PRN DAILY PRN MC SEE COMMENTS Last administered on 04/14/19at 01:27; Start 04/13/19 at 20:30 Piperacillin Sod/ Tazobactam Sod (Zosyn Per Pharmacy) 1 each PRN DAILY PRN MC SEE COMMENTS; Start 04/13/19 at 20:30; Stop 04/14/19 at 10:36; Status DC Clonidine HCl (Catapres) 0.1 mg PRN Q1HR PRN PO HYPERTENSION; Start 04/13/19 at 20:30 Acetaminophen/ Hydrocodone Bitart (Lortab 5/325) 1 tab PRN Q4HRS PRN PO PAIN; Start 04/13/19 at 20:30 Acetaminophen (Tylenol) 500 mg PRN Q6HRS PRN PO MILD PAIN / TEMP; Start 04/13/19 at 20:30 Temazepam (Restoril) 7.5 mg PRN QHS PRN PO INSOMNIA; Start 04/13/19 at 20:30 Aspirin (Ecotrin) 81 mg DAILY08 PO Last administered on 04/14/19at 08:05; Start 04/14/19 at 08:00 Estradiol (Estrace) 1 scotty 3X/WEEK VG ; Start 04/16/19 at 09:00 Insulin Glargine (Lantus) 6 units QHS SQ Last administered on 04/13/19at 22:26; Start 04/13/19 at 21:00 Calcium Acetate (Phoslo) 1,334 mg TIDWMEALS PO Last administered on 04/14/19at 12:13; Start 04/14/19 at 08:00 Insulin Human Lispro (HumaLOG) 6 units TIDWMEALS SQ Last administered on 04/14/19at 12:13; Start 04/14/19 at 08:00 Vitamin B Complex/ Vitamin C (Funmi-Hannah) 1 tab DAILY PO Last administered on 04/14/19at 12:13; Start 04/14/19 at 09:00 Piperacillin Sod/ Tazobactam Sod 2.25 gm/Sodium Chloride 50 ml @ 100 mls/hr Q8HRS IV Last administered on 04/14/19at 05:39; Start 04/13/19 at 22:30; Stop 04/14/19 at 10:36; Status DC Meropenem 500 mg/ Sodium Chloride 50 ml @ 100 mls/hr DAILY IV Last administered on 04/14/19at 12:13; Start 04/14/19 at 11:00 Active Scripts Active Keflex (Cephalexin) 500 Mg Capsule 1,000 Mg PO BID 7 Days Estrace (Estradiol) 42.5 Gm Cream.appl 1 Scotty VG 3X/WEEK 14 Days Reported Funmi-Hannah Rx Tablet (Vit B Cmplx 3/Fa/Vit C/Biotin) 1 Each Tablet 1 Each PO DAILY Amox Tr-K Clv 875-125 Mg Tab (Amoxicillin/Potassium Clav) 1 Each Tablet 1 Tab PO BID Novolog (Insulin Aspart) 100 Unit/1 Ml Cartridge 6 Unit SQ TIDAC Lantus Solostar (Insulin Glargine,Hum.rec.anlog) 100 Unit/1 Ml Insuln.pen 6 Unit SQ QHS [regrenex] TOP DAILY PRN Calcium Acetate 667 Mg Tablet 2 Cap PO TIDAC Aspir 81 (Aspirin) 81 Mg Tablet. 1 Tab PO DAILY08 Vitals/I & O Vital Sign - Last 24 Hours 04/13/19 04/13/19 04/13/19 04/13/19 18:02 18:57 19:29 19:57 Temp 98.3 98.3 Pulse 97 89 93 91 Resp 18 16 16 14 B/P (MAP) 152/68 (96) 137/62 (87) 148/64 (92) 152/65 (94) Pulse Ox 97 90 94 92 O2 Delivery Room Air Room Air Room Air 04/13/19 04/13/19 04/13/19 04/13/19 20:27 20:45 20:50 23:05 Temp 98.6 98.3 98.6 98.3 Pulse 91 92 86 Resp 16 18 18 B/P (MAP) 140/60 (86) 120/56 (77) 104/44 (64) Pulse Ox 97 92 O2 Delivery Room Air Room Air Room Air Room Air 04/14/19 04/14/19 04/14/19 03:00 07:00 11:00 Temp 98.4 98.4 97.6 98.4 98.4 97.6 Pulse 76 85 84 Resp 18 18 B/P (MAP) 115/50 (71) 128/95 (106) 102/60 (74) Pulse Ox 94 96 97 O2 Delivery Room Air Room Air Room Air Intake and Output 04/13/19 04/13/19 04/14/19 15:00 23:00 07:00 Intake Total 480 ml Balance 480 ml ADAN THAKUR MD Apr 14, 2019 13:40
[2019-04-14 15:00] VITALS: BP 141/46
[2019-04-14 19:00] VITALS: BP 131/65
[2019-04-14] MEDS: LACTOBACILLUS RHAMNOSUS GG 1 CAPSULE. PO SCH (21:27)
[2019-04-14] MEDS: INSULIN GLARGINE 300 UNITS/3 ML INSULN.PEN. SQ SCH (21:30)
[2019-04-14 23:00] VITALS: BP 151/61
[2019-04-15 03:00] VITALS: BP 134/63
[2019-04-15 05:43] LABS: HEMOGLOBIN A1C 7.5 % (4.8-5.6)
[2019-04-15 06:55] LABS: BASO # 0.1 x10^3/uL (0.0-0.2); BASO % 1 % (0-3); EOS # 0.2 x10^3/uL (0.0-0.7); EOS % 4 % (0-3); HEMATOCRIT 38.1 % (36.0-47.0); HEMOGLOBIN 12.3 g/dL (12.0-15.5); LYMPH # 1.3 x10^3/uL (1.0-4.8); LYMPH % 24 % (24-48); MEAN CORPUSCULAR HEMOGLOBIN 33 pg (25-35); MEAN CORPUSCULAR HGB CONC 32 g/dL (31-37); MEAN CORPUSCULAR VOLUME 103 fL (79-100); MONO # 0.5 x10^3/uL (0.0-1.1); MONO % 10 % (0-9); NEUT # 3.3 x10^3/uL (1.8-7.7); NEUT % 61 % (31-73); PLATELET COUNT 146 x10^3/uL (140-400); RED BLOOD COUNT 3.68 x10^6/uL (3.50-5.40); RED CELL DISTRIBUTION WIDTH 16.1 % (11.5-14.5); WHITE BLOOD COUNT 5.5 x10^3/uL (4.0-11.0)
[2019-04-15 07:00] VITALS: BP 129/51
[2019-04-15 07:06] LABS: CREATININE 6.4 mg/dL (0.6-1.0); GFR 6.3; POTASSIUM 4.2 mmol/L (3.5-5.1)
[2019-04-15] MEDS: INSULIN LISPRO 300 UNITS/3 ML VIAL. SQ SCH ×6 (08:00→17:00)
[2019-04-15] MEDS: FOLIC/VIT B COMP W-C (RENAL) TABLET. PO SCH (08:24)
[2019-04-15] MEDS: LACTOBACILLUS RHAMNOSUS GG 1 CAPSULE. PO SCH ×2 (08:24→20:48)
[2019-04-15] MEDS: MEROPENEM 500 MG in IV NORMAL SALINE 50ML 50 ML IV SCH (08:25)
[2019-04-15] MEDS: ASPIRIN ENTERIC COATED 81 MG TABLET.DR. PO SCH (08:25)
[2019-04-15] MEDS: CALCIUM ACETATE 667 MG CAPSULE PO SCH ×3 (08:25→17:22)
--- NOTE | 2019-04-15 10:43 | PDOC ---
PROGRESS NOTES Chief Complaint Chief Complaint Left plantar heel wound concerning for osteo = ESRD on HD, compliant AOCD HTN, CABG chronic stable DM 2 with good control History of Present Illness History of Present Illness cont the IV abx, ID following MRI ordered for osteo eval of foot Wound care to see SSI Vitals Vitals Vital Signs Date Time Temp Pulse Resp B/P (MAP) Pulse Ox O2 Delivery O2 Flow Rate FiO2 04/15/19 08:00 Room Air 04/15/19 07:00 97.6 81 14 129/51 (77) 97 97.6 Physical Exam General: Alert, Oriented X3, Cooperative, No acute distress Heart: Regular rate, Normal S1, Normal S2 Lungs: Clear Abdomen: Normal bowel sounds, Soft Extremities: No clubbing Skin: No breakdown Labs LABS Laboratory Tests Test 04/14/19 11:34 04/14/19 16:36 04/14/19 20:00 04/15/19 06:30 Glucose (Fingerstick) 126 mg/dL (70-99) 170 mg/dL (70-99) 213 mg/dL (70-99) White Blood Count 5.5 x10^3/uL (4.0-11.0) Red Blood Count 3.68 x10^6/uL (3.50-5.40) Hemoglobin 12.3 g/dL (12.0-15.5) Hematocrit 38.1 % (36.0-47.0) Mean Corpuscular Volume 103 fL (79-100) Mean Corpuscular Hemoglobin 33 pg (25-35) Mean Corpuscular Hemoglobin Concent 32 g/dL (31-37) Red Cell Distribution Width 16.1 % (11.5-14.5) Platelet Count 146 x10^3/uL (140-400) Neutrophils (%) (Auto) 61 % (31-73) Lymphocytes (%) (Auto) 24 % (24-48) Monocytes (%) (Auto) 10 % (0-9) Eosinophils (%) (Auto) 4 % (0-3) Basophils (%) (Auto) 1 % (0-3) Neutrophils # (Auto) 3.3 x10^3/uL (1.8-7.7) Lymphocytes # (Auto) 1.3 x10^3/uL (1.0-4.8) Monocytes # (Auto) 0.5 x10^3/uL (0.0-1.1) Eosinophils # (Auto) 0.2 x10^3/uL (0.0-0.7) Basophils # (Auto) 0.1 x10^3/uL (0.0-0.2) Sodium Level 142 mmol/L (136-145) Potassium Level 4.2 mmol/L (3.5-5.1) Chloride Level 103 mmol/L (98-107) Carbon Dioxide Level 23 mmol/L (21-32) Anion Gap 16 (6-14) Blood Urea Nitrogen 39 mg/dL (7-20) Creatinine 6.4 mg/dL (0.6-1.0) Estimated GFR (Cockcroft-Gault) 6.3 Glucose Level 137 mg/dL (70-99) Calcium Level 8.0 mg/dL (8.5-10.1) Test 04/15/19 07:14 Glucose (Fingerstick) 126 mg/dL (70-99) Review of Systems Review of Systems no n.vd. Comment Review of Relevant I have reviewed the following items anastasiya (where applicable) has been applied. Labs Laboratory Tests Test 04/13/19 17:10 04/13/19 18:40 04/13/19 21:13 04/14/19 05:36 Sodium Level 138 mmol/L (136-145) Potassium Level 3.8 mmol/L (3.5-5.1) Chloride Level 99 mmol/L (98-107) Carbon Dioxide Level 32 mmol/L (21-32) Anion Gap 7 (6-14) Blood Urea Nitrogen 26 mg/dL (7-20) Creatinine 4.3 mg/dL (0.6-1.0) Estimated GFR (Cockcroft-Gault) 10.0 BUN/Creatinine Ratio 6 (6-20) Glucose Level 236 mg/dL (70-99) Calcium Level 8.3 mg/dL (8.5-10.1) Total Bilirubin 0.3 mg/dL (0.2-1.0) Aspartate Amino Transf (AST/SGOT) 47 U/L (15-37) Alanine Aminotransferase (ALT/SGPT) 33 U/L (14-59) Alkaline Phosphatase 241 U/L (46-116) Total Protein 7.9 g/dL (6.4-8.2) Albumin 2.8 g/dL (3.4-5.0) Albumin/Globulin Ratio 0.5 (1.0-1.7) White Blood Count 5.4 x10^3/uL (4.0-11.0) Red Blood Count 3.68 x10^6/uL (3.50-5.40) Hemoglobin 12.5 g/dL (12.0-15.5) Hematocrit 36.8 % (36.0-47.0) Mean Corpuscular Volume 100 fL (79-100) Mean Corpuscular Hemoglobin 34 pg (25-35) Mean Corpuscular Hemoglobin Concent 34 g/dL (31-37) Red Cell Distribution Width 15.7 % (11.5-14.5) Platelet Count 165 x10^3/uL (140-400) Neutrophils (%) (Auto) 64 % (31-73) Lymphocytes (%) (Auto) 22 % (24-48) Monocytes (%) (Auto) 11 % (0-9) Eosinophils (%) (Auto) 3 % (0-3) Basophils (%) (Auto) 1 % (0-3) Neutrophils # (Auto) 3.4 x10^3/uL (1.8-7.7) Lymphocytes # (Auto) 1.2 x10^3/uL (1.0-4.8) Monocytes # (Auto) 0.6 x10^3/uL (0.0-1.1) Eosinophils # (Auto) 0.1 x10^3/uL (0.0-0.7) Basophils # (Auto) 0.1 x10^3/uL (0.0-0.2) Erythrocyte Sedimentation Rate 86 (0-25) Hemoglobin A1c 7.5 % (4.8-5.6) Lactic Acid Level 1.5 mmol/L (0.4-2.0) Glucose (Fingerstick) 245 mg/dL (70-99) 120 mg/dL (70-99) Test 04/14/19 07:19 04/14/19 11:34 04/14/19 16:36 04/14/19 20:00 Glucose (Fingerstick) 126 mg/dL (70-99) 126 mg/dL (70-99) 170 mg/dL (70-99) 213 mg/dL (70-99) Test 04/15/19 06:30 04/15/19 07:14 White Blood Count 5.5 x10^3/uL (4.0-11.0) Red Blood Count 3.68 x10^6/uL (3.50-5.40) Hemoglobin 12.3 g/dL (12.0-15.5) Hematocrit 38.1 % (36.0-47.0) Mean Corpuscular Volume 103 fL (79-100) Mean Corpuscular Hemoglobin 33 pg (25-35) Mean Corpuscular Hemoglobin Concent 32 g/dL (31-37) Red Cell Distribution Width 16.1 % (11.5-14.5) Platelet Count 146 x10^3/uL (140-400) Neutrophils (%) (Auto) 61 % (31-73) Lymphocytes (%) (Auto) 24 % (24-48) Monocytes (%) (Auto) 10 % (0-9) Eosinophils (%) (Auto) 4 % (0-3) Basophils (%) (Auto) 1 % (0-3) Neutrophils # (Auto) 3.3 x10^3/uL (1.8-7.7) Lymphocytes # (Auto) 1.3 x10^3/uL (1.0-4.8) Monocytes # (Auto) 0.5 x10^3/uL (0.0-1.1) Eosinophils # (Auto) 0.2 x10^3/uL (0.0-0.7) Basophils # (Auto) 0.1 x10^3/uL (0.0-0.2) Sodium Level 142 mmol/L (136-145) Potassium Level 4.2 mmol/L (3.5-5.1) Chloride Level 103 mmol/L (98-107) Carbon Dioxide Level 23 mmol/L (21-32) Anion Gap 16 (6-14) Blood Urea Nitrogen 39 mg/dL (7-20) Creatinine 6.4 mg/dL (0.6-1.0) Estimated GFR (Cockcroft-Gault) 6.3 Glucose Level 137 mg/dL (70-99) Calcium Level 8.0 mg/dL (8.5-10.1) Glucose (Fingerstick) 126 mg/dL (70-99) Laboratory Tests Test 04/14/19 11:34 04/14/19 16:36 04/14/19 20:00 04/15/19 06:30 Glucose (Fingerstick) 126 mg/dL (70-99) 170 mg/dL (70-99) 213 mg/dL (70-99) White Blood Count 5.5 x10^3/uL (4.0-11.0) Red Blood Count 3.68 x10^6/uL (3.50-5.40) Hemoglobin 12.3 g/dL (12.0-15.5) Hematocrit 38.1 % (36.0-47.0) Mean Corpuscular Volume 103 fL (79-100) Mean Corpuscular Hemoglobin 33 pg (25-35) Mean Corpuscular Hemoglobin Concent 32 g/dL (31-37) Red Cell Distribution Width 16.1 % (11.5-14.5) Platelet Count 146 x10^3/uL (140-400) Neutrophils (%) (Auto) 61 % (31-73) Lymphocytes (%) (Auto) 24 % (24-48) Monocytes (%) (Auto) 10 % (0-9) Eosinophils (%) (Auto) 4 % (0-3) Basophils (%) (Auto) 1 % (0-3) Neutrophils # (Auto) 3.3 x10^3/uL (1.8-7.7) Lymphocytes # (Auto) 1.3 x10^3/uL (1.0-4.8) Monocytes # (Auto) 0.5 x10^3/uL (0.0-1.1) Eosinophils # (Auto) 0.2 x10^3/uL (0.0-0.7) Basophils # (Auto) 0.1 x10^3/uL (0.0-0.2) Sodium Level 142 mmol/L (136-145) Potassium Level 4.2 mmol/L (3.5-5.1) Chloride Level 103 mmol/L (98-107) Carbon Dioxide Level 23 mmol/L (21-32) Anion Gap 16 (6-14) Blood Urea Nitrogen 39 mg/dL (7-20) Creatinine 6.4 mg/dL (0.6-1.0) Estimated GFR (Cockcroft-Gault) 6.3 Glucose Level 137 mg/dL (70-99) Calcium Level 8.0 mg/dL (8.5-10.1) Test 04/15/19 07:14 Glucose (Fingerstick) 126 mg/dL (70-99) Microbiology 04/14/19 Blood Culture - Preliminary, Resulted NO GROWTH AFTER 1 DAY Medications Current Medications Vancomycin HCl 1.5 gm/Sodium Chloride 500 ml @ 250 mls/hr 1X ONCE IV Last administered on 04/13/19at 20:06; Start 04/13/19 at 19:45; Stop 04/13/19 at 21:44; Status DC Ceftriaxone Sodium (Rocephin) 2 gm 1X ONCE IVP Last administered on 04/13/19at 20:06; Start 04/13/19 at 19:45; Stop 04/13/19 at 19:46; Status DC Ondansetron HCl (Zofran) 4 mg PRN Q8HRS PRN IV NAUSEA/VOMITING Last administered on 04/13/19at 20:19; Start 04/13/19 at 19:45; Stop 04/13/19 at 20:25; Status DC Fentanyl Citrate (Fentanyl 2ml Vial) 50 mcg PRN Q1HR PRN IV PAIN; Start 04/13/19 at 19:45; Stop 04/13/19 at 20:25; Status DC Acetaminophen (Tylenol) 650 mg PRN Q4HRS PRN PO FEVER; Start 04/13/19 at 19:45; Stop 04/14/19 at 19:44; Status DC Fentanyl Citrate (Fentanyl 2ml Vial) 50 mcg PRN Q2HR PRN IV PAIN; Start 04/13/19 at 20:30 Ondansetron HCl (Zofran) 4 mg PRN Q6HRS PRN IV NAUSEA/VOMITING; Start 04/13/19 at 20:30 Insulin Human Lispro (HumaLOG) 0-9 UNITS TIDWMEALS SQ ; Start 04/14/19 at 08:00 Dextrose (Dextrose 50%-Water Syringe) 12.5 gm PRN Q15MIN PRN IV SEE COMMENTS; Start 04/13/19 at 20:30 Dextrose 250 ml PRN Q15MIN PRN IV SEE COMMENTS; Start 04/13/19 at 20:30 Vancomycin HCl (Vanco Per Pharmacy) 1 each PRN DAILY PRN MC SEE COMMENTS Last administered on 04/14/19at 01:27; Start 04/13/19 at 20:30 Piperacillin Sod/ Tazobactam Sod (Zosyn Per Pharmacy) 1 each PRN DAILY PRN MC SEE COMMENTS; Start 04/13/19 at 20:30; Stop 04/14/19 at 10:36; Status DC Clonidine HCl (Catapres) 0.1 mg PRN Q1HR PRN PO HYPERTENSION; Start 04/13/19 at 20:30 Acetaminophen/ Hydrocodone Bitart (Lortab 5/325) 1 tab PRN Q4HRS PRN PO PAIN; Start 04/13/19 at 20:30 Acetaminophen (Tylenol) 500 mg PRN Q6HRS PRN PO MILD PAIN / TEMP; Start 04/13/19 at 20:30 Temazepam (Restoril) 7.5 mg PRN QHS PRN PO INSOMNIA; Start 04/13/19 at 20:30 Aspirin (Ecotrin) 81 mg DAILY08 PO Last administered on 04/15/19at 08:25; Start 04/14/19 at 08:00 Estradiol (Estrace) 1 scotty 3X/WEEK VG ; Start 04/16/19 at 09:00 Insulin Glargine (Lantus) 6 units QHS SQ Last administered on 04/14/19at 21:32; Start 04/13/19 at 21:00 Calcium Acetate (Phoslo) 1,334 mg TIDWMEALS PO Last administered on 04/15/19at 08:25; Start 04/14/19 at 08:00 Insulin Human Lispro (HumaLOG) 6 units TIDWMEALS SQ Last administered on 04/14/19at 17:21; Start 04/14/19 at 08:00 Vitamin B Complex/ Vitamin C (Funmi-Hannah) 1 tab DAILY PO Last administered on 04/15/19at 08:25; Start 04/14/19 at 09:00 Piperacillin Sod/ Tazobactam Sod 2.25 gm/Sodium Chloride 50 ml @ 100 mls/hr Q8HRS IV Last administered on 04/14/19at 05:39; Start 04/13/19 at 22:30; Stop 04/14/19 at 10:36; Status DC Meropenem 500 mg/ Sodium Chloride 50 ml @ 100 mls/hr DAILY IV Last administered on 04/15/19at 08:25; Start 04/14/19 at 11:00 Lactobacillus Rhamnosus (Culturelle) 1 cap BID PO Last administered on 04/15/19at 08:25; Start 04/14/19 at 21:00 Active Scripts Active Keflex (Cephalexin) 500 Mg Capsule 1,000 Mg PO BID 7 Days Estrace (Estradiol) 42.5 Gm Cream.appl 1 Scotty VG 3X/WEEK 14 Days Reported Funmi-[facility] Rx Tablet (Vit B Cmplx 3/Fa/Vit C/Biotin) 1 Each Tablet 1 Each PO DAILY Amox Tr-K Clv 875-125 Mg Tab (Amoxicillin/Potassium Clav) 1 Each Tablet 1 Tab PO BID Novolog (Insulin Aspart) 100 Unit/1 Ml Cartridge 6 Unit SQ TIDAC Lantus Solostar (Insulin Glargine,Hum.rec.anlog) 100 Unit/1 Ml Insuln.pen 6 Unit SQ QHS [regrenex] TOP DAILY PRN Calcium Acetate 667 Mg Tablet 2 Cap PO TIDAC Aspir 81 (Aspirin) 81 Mg Tablet. 1 Tab PO DAILY08 Vitals/I & O Vital Sign - Last 24 Hours 04/14/19 04/14/19 04/14/19 04/14/19 11:00 15:00 19:00 20:00 Temp 97.6 97.9 98.6 97.6 97.9 98.6 Pulse 84 81 93 Resp 18 18 B/P (MAP) 102/60 (74) 141/46 (77) 131/65 (87) Pulse Ox 97 95 95 O2 Delivery Room Air Room Air Room Air Room Air 04/14/19 04/15/19 04/15/19 04/15/19 23:00 03:00 07:00 08:00 Temp 98.7 97.7 97.6 98.7 97.7 97.6 Pulse 94 81 81 Resp 18 18 14 B/P (MAP) 151/61 (91) 134/63 (86) 129/51 (77) Pulse Ox 96 96 97 O2 Delivery Room Air Room Air Room Air Room Air Intake and Output 04/14/19 04/14/19 04/15/19 14:59 22:59 06:59 Intake Total 320 ml Balance 320 ml ADAN THAKUR MD Apr 15, 2019 10:43
--- NOTE | 2019-04-15 10:56 | PDOC ---
Infectious Disease Note Subjective Subjective Feels good Denies pain/F/C/S/N/V/D ROS ROS per HPI Vital Sign Vital Signs Vital Signs Date Time Temp Pulse Resp B/P (MAP) Pulse Ox O2 Delivery O2 Flow Rate FiO2 04/15/19 08:00 Room Air 04/15/19 07:00 97.6 81 14 129/51 (77) 97 97.6 Physical Exam PHYSICAL EXAM GENERAL: Propped up in bed, alert, in no apparent distress. HEENT: Pupils are equally round and reactive. Normal conjunctivae. Oropharynx is pink and moist. NECK: Supple. LUNGS: Clear to auscultation. HEART: S1 and S2. ABDOMEN: Soft and nontender with bowel sounds present. EXTREMITIES: No gross edema or cyanosis. Distal pulse is palpable. She has a plantar callus with an adjacent ruptured blister along with some maceration between the toes. There is no redness or drainage. Nontender. SKIN: Warm to touch. No signs of rash. NEUROLOGIC: Alert and oriented x 3. Labs Lab Laboratory Tests Test 04/14/19 11:34 04/14/19 16:36 04/14/19 20:00 04/15/19 06:30 Glucose (Fingerstick) 126 mg/dL (70-99) 170 mg/dL (70-99) 213 mg/dL (70-99) White Blood Count 5.5 x10^3/uL (4.0-11.0) Red Blood Count 3.68 x10^6/uL (3.50-5.40) Hemoglobin 12.3 g/dL (12.0-15.5) Hematocrit 38.1 % (36.0-47.0) Mean Corpuscular Volume 103 fL (79-100) Mean Corpuscular Hemoglobin 33 pg (25-35) Mean Corpuscular Hemoglobin Concent 32 g/dL (31-37) Red Cell Distribution Width 16.1 % (11.5-14.5) Platelet Count 146 x10^3/uL (140-400) Neutrophils (%) (Auto) 61 % (31-73) Lymphocytes (%) (Auto) 24 % (24-48) Monocytes (%) (Auto) 10 % (0-9) Eosinophils (%) (Auto) 4 % (0-3) Basophils (%) (Auto) 1 % (0-3) Neutrophils # (Auto) 3.3 x10^3/uL (1.8-7.7) Lymphocytes # (Auto) 1.3 x10^3/uL (1.0-4.8) Monocytes # (Auto) 0.5 x10^3/uL (0.0-1.1) Eosinophils # (Auto) 0.2 x10^3/uL (0.0-0.7) Basophils # (Auto) 0.1 x10^3/uL (0.0-0.2) Sodium Level 142 mmol/L (136-145) Potassium Level 4.2 mmol/L (3.5-5.1) Chloride Level 103 mmol/L (98-107) Carbon Dioxide Level 23 mmol/L (21-32) Anion Gap 16 (6-14) Blood Urea Nitrogen 39 mg/dL (7-20) Creatinine 6.4 mg/dL (0.6-1.0) Estimated GFR (Cockcroft-Gault) 6.3 Glucose Level 137 mg/dL (70-99) Calcium Level 8.0 mg/dL (8.5-10.1) Test 04/15/19 07:14 Glucose (Fingerstick) 126 mg/dL (70-99) Micro Microbiology 04/14/19 Blood Culture - Preliminary, Resulted NO GROWTH AFTER 1 DAY Objective Assessment 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 ESR 86 CKD on hemodialyses via AV fistula h/o Enterobacter wound infection h/o ESBL in urine Plan Plan of Care Vanc and meropenem Await MRI to rule out osteo Local wound care Attending Co-Sign The patient was seen and interviewed as well as examined at the bedside. The chart was reviewed. The case was discussed. Agree with the plan of care. MANA SKY APRN Apr 15, 2019 10:56 ANA CRISTINA العلي MD Apr 15, 2019 11:57
[2019-04-15 11:00] VITALS: BP 143/65
--- NOTE | 2019-04-15 11:58 | PDOC ---
Renal-Progress Notes Subjective Notes Notes NO NEW COMPLAINTS History of Present Illness Hx of present illness STABLE Vitals Vitals Vital Signs Date Time Temp Pulse Resp B/P (MAP) Pulse Ox O2 Delivery O2 Flow Rate FiO2 04/15/19 08:00 Room Air 04/15/19 07:00 97.6 81 14 129/51 (77) 97 97.6 Weight Weight [ ] I.O. Intake and Output Intake and Output 04/15/19 07:00 Intake Total 320 ml Balance 320 ml Intake Oral 320 ml # Voids 2 Labs Labs Laboratory Tests Test 04/14/19 16:36 04/14/19 20:00 04/15/19 06:30 04/15/19 07:14 Glucose (Fingerstick) 170 mg/dL (70-99) 213 mg/dL (70-99) 126 mg/dL (70-99) White Blood Count 5.5 x10^3/uL (4.0-11.0) Red Blood Count 3.68 x10^6/uL (3.50-5.40) Hemoglobin 12.3 g/dL (12.0-15.5) Hematocrit 38.1 % (36.0-47.0) Mean Corpuscular Volume 103 fL (79-100) Mean Corpuscular Hemoglobin 33 pg (25-35) Mean Corpuscular Hemoglobin Concent 32 g/dL (31-37) Red Cell Distribution Width 16.1 % (11.5-14.5) Platelet Count 146 x10^3/uL (140-400) Neutrophils (%) (Auto) 61 % (31-73) Lymphocytes (%) (Auto) 24 % (24-48) Monocytes (%) (Auto) 10 % (0-9) Eosinophils (%) (Auto) 4 % (0-3) Basophils (%) (Auto) 1 % (0-3) Neutrophils # (Auto) 3.3 x10^3/uL (1.8-7.7) Lymphocytes # (Auto) 1.3 x10^3/uL (1.0-4.8) Monocytes # (Auto) 0.5 x10^3/uL (0.0-1.1) Eosinophils # (Auto) 0.2 x10^3/uL (0.0-0.7) Basophils # (Auto) 0.1 x10^3/uL (0.0-0.2) Sodium Level 142 mmol/L (136-145) Potassium Level 4.2 mmol/L (3.5-5.1) Chloride Level 103 mmol/L (98-107) Carbon Dioxide Level 23 mmol/L (21-32) Anion Gap 16 (6-14) Blood Urea Nitrogen 39 mg/dL (7-20) Creatinine 6.4 mg/dL (0.6-1.0) Estimated GFR (Cockcroft-Gault) 6.3 Glucose Level 137 mg/dL (70-99) Calcium Level 8.0 mg/dL (8.5-10.1) Test 04/15/19 10:59 Glucose (Fingerstick) 208 mg/dL (70-99) Micro Micro Microbiology 04/14/19 Blood Culture - Preliminary, Resulted NO GROWTH AFTER 1 DAY Review of Systems Constitutional: yes: weakness, alert, oriented Ears/Nose/Throat: Yes: no symptom reported Eyes: Yes: no symptom reported Pulmonary: Yes no symptom reported Cardiovascular: Yes no symptom reported Gastrointestional: Yes: no symptom reported Genitourinary: Yes: no symptom reported Musculoskeletal: Yes: joint pain Skin: Yes no symptom reported Psychiatric/Neurological: Yes: no symptom reported Endocrine: Yes: no symptom reported Hematologic/Lymphatic: Yes: no symptom reported Physical Exam General Appearance: no apparent distress Skin: warm Respiratory: bilateral CTA Heart: S1S2, RRR Abdomen: soft, bowel sounds present Genitourinary: bladder flat Extremities: pulses present Neurology: alert, oriented Assessment Assessment IMP ESRD DM II HTN ANEMIA LEFT HEEL OSTEO PLAN HD TOMORROW ARANESP WHEN NEEDED ANTIBIOTICS WOUND CARE UPDATED DAUGHTER MELONIE GUAMAN MD Apr 15, 2019 11:58
[2019-04-15 15:00] VITALS: BP 137/57
[2019-04-15] MEDS: VANCOMYCIN PER PHARMACY MC PRN (15:07)
--- NOTE | 2019-04-15 15:08 | NUR ---
Pharmacy Vancomycin Dosing Note S:Consulted to monitor and dose vancomycin started 04/13/19. O:BRYANT LOCKHART is a 78 year old F with Osteomyelitis . Height: 5 feet, 4 inches Weight: 60.284950 kg [place] Body Weight: 54.70 Adjusted Body Weight: 57.02 Dosing Weight: Actual Other Antibiotics: MEROPENEM 04/14 - ZOSYN 2.25 GM Q8H - 04/14 LABS: Last BUN: 39 Last Creatinine: 6.4 Creatinine Clearance: HD mL/min Last WBC: 5.5 Last Procalcitonin: - Tmax (past 24 hours): 98.4 Microbiology: 04/15 BCX NGTD I/O: 320/2 VOIDS Drug Levels: Last Random level: 17.7 on 04/15/19 at 0630 Last dose given 04/13/19 at 2000 Vancomycin Dosing: Loading Dose: 1500 mg x1 Dosing Weight: Actual Target Trough: 15-20 A: Based on: RANDOM LEVEL THIS AM, HD SCHEDULE, P: 1. INITIATE REGIMEN OF Vancomycin 500 mg IV MWF POST HD STARTING 04/16 2. Follow up level as needed. 3. Pharmacy will continue to monitor, follow and adjust therapy as needed. ROSANA GONSALVES, [facility], 04/15/19 [id number]
[2019-04-15 19:00] VITALS: BP 145/59
[2019-04-15] MEDS: INSULIN GLARGINE 300 UNITS/3 ML INSULN.PEN. SQ SCH (20:57)
--- NOTE | 2019-04-15 21:00 | NUR ---
Patient refused full dose of scheduled Lantus, only 3 units of Lantus administered this PM per patient instruction.
[2019-04-15 23:00] VITALS: BP 133/52
[2019-04-15] MEDS ORDERED: DIPHENOXYLATE/ATROPINE TABLET. PO ONE (23:00)
[2019-04-15] MEDS ORDERED: LOPERAMIDE 2 MG CAPSULE PO ONE (23:00)
[2019-04-16 03:00] VITALS: BP 128/57
[2019-04-16 05:31] LABS: HEMATOCRIT 34.9 % (36.0-47.0); HEMOGLOBIN 11.6 g/dL (12.0-15.5); RED BLOOD COUNT 3.42 x10^6/uL (3.50-5.40); RED CELL DISTRIBUTION WIDTH 15.4 % (11.5-14.5); WHITE BLOOD COUNT 6.2 x10^3/uL (4.0-11.0)
[2019-04-16 05:49] LABS: CALCIUM 8.6 mg/dL (8.5-10.1); CREATININE 7.3 mg/dL (0.6-1.0); GFR 5.4; POTASSIUM 4.3 mmol/L (3.5-5.1)
[2019-04-16 07:00] VITALS: BP 140/65
[2019-04-16] MEDS: INSULIN LISPRO 300 UNITS/3 ML VIAL. SQ SCH ×6 (08:00→17:30)
[2019-04-16] MEDS: CALCIUM ACETATE 667 MG CAPSULE PO SCH ×3 (08:00→17:25)
[2019-04-16] MEDS: LACTOBACILLUS RHAMNOSUS GG 1 CAPSULE. PO SCH ×2 (08:22→21:06)
[2019-04-16] MEDS ORDERED: IV NORMAL SALINE 1000ML BAG 1,000 ML IV PRN ×2 (09:05)
[2019-04-16] MEDS ORDERED: DIALYSIS PATIENT. MC PRN (09:15)
[2019-04-16] MEDS ORDERED: diphenhydrAMINE 50 MG/ML VIAL IV PRN ×2 (09:15)
--- NOTE | 2019-04-16 09:37 | PDOC ---
SUBJECTIVE ROS Seen on hD, no complaints OBJECTIVE Vital Signs Vital Signs Date Time Temp Pulse Resp B/P (MAP) Pulse Ox O2 Delivery O2 Flow Rate FiO2 04/16/19 07:00 98.1 87 16 140/65 (90) 95 Room Air 98.1 I & 0 Intake and Output 04/16/19 06:59 Intake Total 600 ml Balance 600 ml Intake Oral 600 ml # Voids 2 # Bowel Movements 1 PHYSICAL EXAM Physical Exam GENERAL: Propped up in bed, no apparent distress. HEENT: Oropharynx is pink and moist. NECK: Supple. LUNGS: Clear to auscultation. HEART: S1 and S2. ABDOMEN: Soft and nontender EXTREMITIES: No gross edema or cyanosis. SKIN: No signs of rash. NEUROLOGIC: Alert and oriented x 3. 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 on x-ray On Abx per ID DM II- per primary HTN- BP stable Antihypertensives Anemia- No indication for BIJAN currently COMMENT/RELEVANT DATA Meds Current Medications Medications (Trade) Dose Ordered Sig/Claudette Start Time Stop Time Status Last Admin Dose Admin Acetaminophen (Tylenol) 500 mg PRN Q6HRS PRN 04/13/19 20:30 Acetaminophen/ Hydrocodone Bitart (Lortab 5/325) 1 tab PRN Q4HRS PRN 04/13/19 20:30 Aspirin (Ecotrin) 81 mg DAILY08 04/14/19 08:00 04/15/19 08:25 81 MG Calcium Acetate (Phoslo) 1,334 mg TIDWMEALS 04/14/19 08:00 04/15/19 17:22 1,334 MG Ceftriaxone Sodium (Rocephin) 2 gm 1X ONCE 04/13/19 19:45 04/13/19 19:46 DC 04/13/19 20:06 2 GM Clonidine HCl (Catapres) 0.1 mg PRN Q1HR PRN 04/13/19 20:30 Dextrose 250 ml PRN Q15MIN PRN 04/13/19 20:30 Dextrose (Dextrose 50%-Water Syringe) 12.5 gm PRN Q15MIN PRN 04/13/19 20:30 Diphenhydramine HCl (Benadryl) 25 mg 1X PRN PRN 04/16/19 09:15 04/17/19 09:14 Diphenoxylate HCl/ Atropine (Lomotil) 2 tab 1X ONCE 04/15/19 23:00 04/15/19 23:01 Cancel Estradiol (Estrace) 1 amy 3X/WEEK 04/16/19 09:00 Fentanyl Citrate (Fentanyl 2ml Vial) 50 mcg PRN Q2HR PRN 04/13/19 20:30 Info (PHARMACY MONITORING -- do not chart) 1 each PRN DAILY PRN 04/16/19 09:15 Insulin Glargine (Lantus) 6 units QHS 04/13/19 21:00 04/15/19 20:57 3 UNITS Insulin Human Lispro (HumaLOG) 6 units TIDWMEALS 04/14/19 08:00 04/15/19 12:14 6 UNITS Lactobacillus Rhamnosus (Culturelle) 1 cap BID 04/14/19 21:00 04/15/19 20:57 1 CAP Loperamide HCl (Imodium) 2 mg 1X ONCE 04/15/19 23:00 04/15/19 23:01 DC 04/15/19 22:55 2 MG Meropenem 500 mg/ Sodium Chloride 50 ml @ 100 mls/hr DAILY 04/14/19 11:00 04/15/19 08:25 100 MLS/HR Ondansetron HCl (Zofran) 4 mg PRN Q6HRS PRN 04/13/19 20:30 Piperacillin Sod/ Tazobactam Sod (Zosyn Per Pharmacy) 1 each PRN DAILY PRN 04/13/19 20:30 04/14/19 10:36 DC Piperacillin Sod/ Tazobactam Sod 2.25 gm/Sodium Chloride 50 ml @ 100 mls/hr Q8HRS 04/13/19 22:30 04/14/19 10:36 DC 04/14/19 05:39 100 MLS/HR Sodium Chloride 1,000 ml @ 400 mls/hr Q2H30M PRN 04/16/19 09:05 04/16/19 21:04 Temazepam (Restoril) 7.5 mg PRN QHS PRN 04/13/19 20:30 Vancomycin HCl (Vanco Per Pharmacy) 1 each PRN DAILY PRN 04/13/19 20:30 04/15/19 15:07 1 EACH Vancomycin HCl 1.5 gm/Sodium Chloride 500 ml @ 250 mls/hr 1X ONCE 04/13/19 19:45 04/13/19 21:44 DC 04/13/19 20:06 250 MLS/HR Vancomycin HCl 500 mg/Sodium Chloride 100 ml @ 100 mls/hr QMWF 04/16/19 16:00 Vitamin B Complex/ Vitamin C (Funmi-Hannah) 1 tab DAILY 04/14/19 09:00 04/15/19 08:25 1 TAB Lab Laboratory Tests Test 04/15/19 10:59 04/15/19 16:44 04/15/19 20:35 04/16/19 04:30 Glucose (Fingerstick) 208 mg/dL (70-99) 149 mg/dL (70-99) 167 mg/dL (70-99) White Blood Count 6.2 x10^3/uL (4.0-11.0) Red Blood Count 3.42 x10^6/uL (3.50-5.40) Hemoglobin 11.6 g/dL (12.0-15.5) Hematocrit 34.9 % (36.0-47.0) Mean Corpuscular Volume 102 fL (79-100) Mean Corpuscular Hemoglobin 34 pg (25-35) Mean Corpuscular Hemoglobin Concent 33 g/dL (31-37) Red Cell Distribution Width 15.4 % (11.5-14.5) Platelet Count 157 x10^3/uL (140-400) Sodium Level 144 mmol/L (136-145) Potassium Level 4.3 mmol/L (3.5-5.1) Chloride Level 105 mmol/L (98-107) Carbon Dioxide Level 26 mmol/L (21-32) Anion Gap 13 (6-14) Blood Urea Nitrogen 47 mg/dL (7-20) Creatinine 7.3 mg/dL (0.6-1.0) Estimated GFR (Cockcroft-Gault) 5.4 Glucose Level 147 mg/dL (70-99) Calcium Level 8.6 mg/dL (8.5-10.1) Results All relevant outside records, renal labs, imaging studies, telemetry/EKG's were reviewed. LUCIO TORRES MD Apr 16, 2019 09:37
--- NOTE | 2019-04-16 10:40 | PDOC ---
PROGRESS NOTES Chief Complaint Chief Complaint Left plantar heel wound concerning for osteo = ESRD on HD, compliant AOCD HTN, CABG chronic stable DM 2 with good control Diabetic ulcer left foot On Abx per ID 38 min pt exam, chart review, > 50% of time spent with exam, chart review, pt care coordination History of Present Illness History of Present Illness cont the IV abx, ID following MRI ordered for osteo eval of foot Wound care to see SSI Vitals Vitals Vital Signs Date Time Temp Pulse Resp B/P (MAP) Pulse Ox O2 Delivery O2 Flow Rate FiO2 04/16/19 08:00 Room Air 04/16/19 07:00 98.1 87 16 140/65 (90) 95 98.1 Physical Exam Physical Exam GENERAL: Propped up in bed, alert, in no apparent distress. HEENT: Pupils are equally round and reactive. Normal conjunctivae. Oropharynx is pink and moist. NECK: Supple. LUNGS: Clear to auscultation. HEART: S1 and S2. ABDOMEN: Soft and nontender with bowel sounds present. EXTREMITIES: No gross edema or cyanosis. Distal pulse is palpable. She has a plantar callus with an adjacent ruptured blister along with some maceration between the toes. There is no redness or drainage. Nontender. SKIN: Warm to touch. No signs of rash. NEUROLOGIC: Alert and oriented x 3. General: Alert, Oriented X3, Cooperative, No acute distress Heart: Regular rate, Normal S1, Normal S2 Lungs: Clear Abdomen: Normal bowel sounds, Soft, No tenderness Extremities: No clubbing, No cyanosis Skin: No breakdown Labs LABS DICTATED AND SIGNED BY: ARMEN PYLE MD DATE: 11/01/18 1646 CC: LISA CALHOUN; CALVIN SCHWAB MD ~ Three-phase bone scan, 10/16/2018: HISTORY: Nonhealing wound, lateral left foot Imaging of both feet was performed following IV injection of 25 mCi of technetium 99m MDP. The dynamic images demonstrate generalized hyperemia about the left foot and ankle compared to the right. This is also evident on the blood pool image where the activity is greatest at the level of the forefoot and the ankle joint. Delayed images demonstrate markedly increased activity centered at the left first MTP joint level. There is moderately increased activity at the left ankle joint. There is mildly increased activity along the posterior margin of the left calcaneus. No avid uptake is seen laterally where reportedly a foot wound is present. Clinical correlation with the exact site of the patient's wound is suggested. Several foci of slightly increased activity at the right foot and ankle are likely on an arthritic basis. IMPRESSION: 1. Generalized hyperemia about the left foot and ankle. 2. Markedly increased activity centered at the left first MTP joint level which could be arthritic, posttraumatic or infectious. Correlation with foot radiographs is suggested. 2. Moderately increased activity at the left ankle joint level. 3. Mildly increased activity along the posterior margin of the left calcaneus. Electronically signed by: Armen Pyle MD (10/16/2018 5:10 PM) [facility] Laboratory Tests Test 04/15/19 10:59 04/15/19 16:44 04/15/19 20:35 04/16/19 04:30 Glucose (Fingerstick) 208 mg/dL (70-99) 149 mg/dL (70-99) 167 mg/dL (70-99) White Blood Count 6.2 x10^3/uL (4.0-11.0) Red Blood Count 3.42 x10^6/uL (3.50-5.40) Hemoglobin 11.6 g/dL (12.0-15.5) Hematocrit 34.9 % (36.0-47.0) Mean Corpuscular Volume 102 fL (79-100) Mean Corpuscular Hemoglobin 34 pg (25-35) Mean Corpuscular Hemoglobin Concent 33 g/dL (31-37) Red Cell Distribution Width 15.4 % (11.5-14.5) Platelet Count 157 x10^3/uL (140-400) Sodium Level 144 mmol/L (136-145) Potassium Level 4.3 mmol/L (3.5-5.1) Chloride Level 105 mmol/L (98-107) Carbon Dioxide Level 26 mmol/L (21-32) Anion Gap 13 (6-14) Blood Urea Nitrogen 47 mg/dL (7-20) Creatinine 7.3 mg/dL (0.6-1.0) Estimated GFR (Cockcroft-Gault) 5.4 Glucose Level 147 mg/dL (70-99) Calcium Level 8.6 mg/dL (8.5-10.1) Assessment and Plan Assessmemt and Plan Problems Medical Problems: (1) DM2 (diabetes mellitus, type 2) Status: Chronic (2) HTN (hypertension) Status: Chronic Comment Review of Relevant I have reviewed the following items anastasiya (where applicable) has been applied. Labs Laboratory Tests Test 04/14/19 11:34 04/14/19 16:36 04/14/19 20:00 04/15/19 06:30 Glucose (Fingerstick) 126 mg/dL (70-99) 170 mg/dL (70-99) 213 mg/dL (70-99) White Blood Count 5.5 x10^3/uL (4.0-11.0) Red Blood Count 3.68 x10^6/uL (3.50-5.40) Hemoglobin 12.3 g/dL (12.0-15.5) Hematocrit 38.1 % (36.0-47.0) Mean Corpuscular Volume 103 fL (79-100) Mean Corpuscular Hemoglobin 33 pg (25-35) Mean Corpuscular Hemoglobin Concent 32 g/dL (31-37) Red Cell Distribution Width 16.1 % (11.5-14.5) Platelet Count 146 x10^3/uL (140-400) Neutrophils (%) (Auto) 61 % (31-73) Lymphocytes (%) (Auto) 24 % (24-48) Monocytes (%) (Auto) 10 % (0-9) Eosinophils (%) (Auto) 4 % (0-3) Basophils (%) (Auto) 1 % (0-3) Neutrophils # (Auto) 3.3 x10^3/uL (1.8-7.7) Lymphocytes # (Auto) 1.3 x10^3/uL (1.0-4.8) Monocytes # (Auto) 0.5 x10^3/uL (0.0-1.1) Eosinophils # (Auto) 0.2 x10^3/uL (0.0-0.7) Basophils # (Auto) 0.1 x10^3/uL (0.0-0.2) Sodium Level 142 mmol/L (136-145) Potassium Level 4.2 mmol/L (3.5-5.1) Chloride Level 103 mmol/L (98-107) Carbon Dioxide Level 23 mmol/L (21-32) Anion Gap 16 (6-14) Blood Urea Nitrogen 39 mg/dL (7-20) Creatinine 6.4 mg/dL (0.6-1.0) Estimated GFR (Cockcroft-Gault) 6.3 Glucose Level 137 mg/dL (70-99) Calcium Level 8.0 mg/dL (8.5-10.1) Random Vancomycin Level 17.7 mcg/mL Test 04/15/19 07:14 04/15/19 10:59 04/15/19 16:44 04/15/19 20:35 Glucose (Fingerstick) 126 mg/dL (70-99) 208 mg/dL (70-99) 149 mg/dL (70-99) 167 mg/dL (70-99) Test 04/16/19 04:30 White Blood Count 6.2 x10^3/uL (4.0-11.0) Red Blood Count 3.42 x10^6/uL (3.50-5.40) Hemoglobin 11.6 g/dL (12.0-15.5) Hematocrit 34.9 % (36.0-47.0) Mean Corpuscular Volume 102 fL (79-100) Mean Corpuscular Hemoglobin 34 pg (25-35) Mean Corpuscular Hemoglobin Concent 33 g/dL (31-37) Red Cell Distribution Width 15.4 % (11.5-14.5) Platelet Count 157 x10^3/uL (140-400) Sodium Level 144 mmol/L (136-145) Potassium Level 4.3 mmol/L (3.5-5.1) Chloride Level 105 mmol/L (98-107) Carbon Dioxide Level 26 mmol/L (21-32) Anion Gap 13 (6-14) Blood Urea Nitrogen 47 mg/dL (7-20) Creatinine 7.3 mg/dL (0.6-1.0) Estimated GFR (Cockcroft-Gault) 5.4 Glucose Level 147 mg/dL (70-99) Calcium Level 8.6 mg/dL (8.5-10.1) Laboratory Tests Test 04/15/19 10:59 04/15/19 16:44 04/15/19 20:35 04/16/19 04:30 Glucose (Fingerstick) 208 mg/dL (70-99) 149 mg/dL (70-99) 167 mg/dL (70-99) White Blood Count 6.2 x10^3/uL (4.0-11.0) Red Blood Count 3.42 x10^6/uL (3.50-5.40) Hemoglobin 11.6 g/dL (12.0-15.5) Hematocrit 34.9 % (36.0-47.0) Mean Corpuscular Volume 102 fL (79-100) Mean Corpuscular Hemoglobin 34 pg (25-35) Mean Corpuscular Hemoglobin Concent 33 g/dL (31-37) Red Cell Distribution Width 15.4 % (11.5-14.5) Platelet Count 157 x10^3/uL (140-400) Sodium Level 144 mmol/L (136-145) Potassium Level 4.3 mmol/L (3.5-5.1) Chloride Level 105 mmol/L (98-107) Carbon Dioxide Level 26 mmol/L (21-32) Anion Gap 13 (6-14) Blood Urea Nitrogen 47 mg/dL (7-20) Creatinine 7.3 mg/dL (0.6-1.0) Estimated GFR (Cockcroft-Gault) 5.4 Glucose Level 147 mg/dL (70-99) Calcium Level 8.6 mg/dL (8.5-10.1) Microbiology 04/14/19 Blood Culture - Preliminary, Resulted NO GROWTH AFTER 2 DAYS Medications Current Medications Vancomycin HCl 1.5 gm/Sodium Chloride 500 ml @ 250 mls/hr 1X ONCE IV Last administered on 04/13/19at 20:06; Start 04/13/19 at 19:45; Stop 04/13/19 at 21:44; Status DC Ceftriaxone Sodium (Rocephin) 2 gm 1X ONCE IVP Last administered on 04/13/19at 20:06; Start 04/13/19 at 19:45; Stop 04/13/19 at 19:46; Status DC Ondansetron HCl (Zofran) 4 mg PRN Q8HRS PRN IV NAUSEA/VOMITING Last administered on 04/13/19at 20:19; Start 04/13/19 at 19:45; Stop 04/13/19 at 20:25; Status DC Fentanyl Citrate (Fentanyl 2ml Vial) 50 mcg PRN Q1HR PRN IV PAIN; Start 04/13/19 at 19:45; Stop 04/13/19 at 20:25; Status DC Acetaminophen (Tylenol) 650 mg PRN Q4HRS PRN PO FEVER; Start 04/13/19 at 19:45; Stop 04/14/19 at 19:44; Status DC Fentanyl Citrate (Fentanyl 2ml Vial) 50 mcg PRN Q2HR PRN IV PAIN; Start 04/13/19 at 20:30 Ondansetron HCl (Zofran) 4 mg PRN Q6HRS PRN IV NAUSEA/VOMITING; Start 04/13/19 at 20:30 Insulin Human Lispro (HumaLOG) 0-9 UNITS TIDWMEALS SQ Last administered on 04/15/19at 12:14; Start 04/14/19 at 08:00 Dextrose (Dextrose 50%-Water Syringe) 12.5 gm PRN Q15MIN PRN IV SEE COMMENTS; Start 04/13/19 at 20:30 Dextrose 250 ml PRN Q15MIN PRN IV SEE COMMENTS; Start 04/13/19 at 20:30 Vancomycin HCl (Vanco Per Pharmacy) 1 each PRN DAILY PRN MC SEE COMMENTS Last administered on 04/15/19at 15:07; Start 04/13/19 at 20:30 Piperacillin Sod/ Tazobactam Sod (Zosyn Per Pharmacy) 1 each PRN DAILY PRN MC SEE COMMENTS; Start 04/13/19 at 20:30; Stop 04/14/19 at 10:36; Status DC Clonidine HCl (Catapres) 0.1 mg PRN Q1HR PRN PO HYPERTENSION; Start 04/13/19 at 20:30 Acetaminophen/ Hydrocodone Bitart (Lortab 5/325) 1 tab PRN Q4HRS PRN PO PAIN; Start 04/13/19 at 20:30 Acetaminophen (Tylenol) 500 mg PRN Q6HRS PRN PO MILD PAIN / TEMP; Start 04/13/19 at 20:30 Temazepam (Restoril) 7.5 mg PRN QHS PRN PO INSOMNIA; Start 04/13/19 at 20:30 Aspirin (Ecotrin) 81 mg DAILY08 PO Last administered on 04/15/19at 08:25; Start 04/14/19 at 08:00 Estradiol (Estrace) 1 scotty 3X/WEEK VG ; Start 04/16/19 at 09:00 Insulin Glargine (Lantus) 6 units QHS SQ Last administered on 04/15/19at 20:57; Start 04/13/19 at 21:00 Calcium Acetate (Phoslo) 1,334 mg TIDWMEALS PO Last administered on 04/15/19at 17:22; Start 04/14/19 at 08:00 Insulin Human Lispro (HumaLOG) 6 units TIDWMEALS SQ Last administered on 04/15/19at 12:14; Start 04/14/19 at 08:00 Vitamin B Complex/ Vitamin C (Funmi-Hannah) 1 tab DAILY PO Last administered on 04/15/19at 08:25; Start 04/14/19 at 09:00 Piperacillin Sod/ Tazobactam Sod 2.25 gm/Sodium Chloride 50 ml @ 100 mls/hr Q8HRS IV Last administered on 04/14/19at 05:39; Start 04/13/19 at 22:30; Stop 04/14/19 at 10:36; Status DC Meropenem 500 mg/ Sodium Chloride 50 ml @ 100 mls/hr DAILY IV Last administered on 04/15/19at 08:25; Start 04/14/19 at 11:00 Lactobacillus Rhamnosus (Culturelle) 1 cap BID PO Last administered on 04/15/19at 20:57; Start 04/14/19 at 21:00 Vancomycin HCl 500 mg/Sodium Chloride 100 ml @ 100 mls/hr QMWF IV ; Start 04/16/19 at 16:00 Diphenoxylate HCl/ Atropine (Lomotil) 2 tab 1X ONCE PO ; Start 04/15/19 at 23:00; Stop 04/15/19 at 23:01; Status Cancel Loperamide HCl (Imodium) 2 mg 1X ONCE PO Last administered on 04/15/19at 22:55; Start 04/15/19 at 23:00; Stop 04/15/19 at 23:01; Status DC Sodium Chloride 1,000 ml @ 1,000 mls/hr Q1H PRN IV hypotension; Start 04/16/19 at 09:05; Stop 04/16/19 at 15:04 Diphenhydramine HCl (Benadryl) 25 mg 1X PRN PRN IV ITCHING; Start 04/16/19 at 09:15; Stop 04/17/19 at 09:14 Diphenhydramine HCl (Benadryl) 25 mg 1X PRN PRN IV ITCHING; Start 04/16/19 at 09:15; Stop 04/17/19 at 09:14 Sodium Chloride 1,000 ml @ 400 mls/hr Q2H30M PRN IV PATENCY; Start 04/16/19 at 09:05; Stop 04/16/19 at 21:04 Info (PHARMACY MONITORING -- do not chart) 1 each PRN DAILY PRN MC SEE COMMENTS; Start 04/16/19 at 09:15 Active Scripts Active Keflex (Cephalexin) 500 Mg Capsule 1,000 Mg PO BID 7 Days Estrace (Estradiol) 42.5 Gm Cream.appl 1 Scotty VG 3X/WEEK 14 Days Reported Funmi-Hannah Rx Tablet (Vit B Cmplx 3/Fa/Vit C/Biotin) 1 Each Tablet 1 Each PO DAILY Amox Tr-K Clv 875-125 Mg Tab (Amoxicillin/Potassium Clav) 1 Each Tablet 1 Tab PO BID Novolog (Insulin Aspart) 100 Unit/1 Ml Cartridge 6 Unit SQ TIDAC Lantus Solostar (Insulin Glargine,Hum.rec.anlog) 100 Unit/1 Ml Insuln.pen 6 Unit SQ QHS [regrenex] TOP DAILY PRN Calcium Acetate 667 Mg Tablet 2 Cap PO TIDAC Aspir 81 (Aspirin) 81 Mg Tablet. 1 Tab PO DAILY08 Vitals/I & O Vital Sign - Last 24 Hours 04/15/19 04/15/19 04/15/19 04/15/19 11:00 15:00 19:00 20:10 Temp 97.7 98.0 98.6 97.7 98.0 98.6 Pulse 84 87 90 Resp 14 14 20 B/P (MAP) 143/65 (91) 137/57 (83) 145/59 (87) Pulse Ox 98 96 95 O2 Delivery Room Air Room Air Room Air 04/15/19 04/16/19 04/16/19 04/16/19 23:00 03:00 07:00 08:00 Temp 98.8 98.8 98.1 98.8 98.8 98.1 Pulse 83 83 87 Resp 20 18 16 B/P (MAP) 133/52 (79) 128/57 (80) 140/65 (90) Pulse Ox 93 94 95 O2 Delivery Room Air Room Air Room Air Room Air Intake and Output 04/15/19 04/15/19 04/16/19 15:00 23:00 07:00 Intake Total 220 ml 380 ml 0 ml Balance 220 ml 380 ml 0 ml FLORI DAVIES MD Apr 16, 2019 10:40
--- NOTE | 2019-04-16 12:17 | PDOC ---
Infectious Disease Note Subjective: Subjective Feels good Denies pain/F/C/S/N/V/D ROS: ROS Negative otherwise. Vital Signs: Vital Signs Vital Signs Date Time Temp Pulse Resp B/P (MAP) Pulse Ox O2 Delivery O2 Flow Rate FiO2 04/16/19 08:00 Room Air 04/16/19 07:00 98.1 87 16 140/65 (90) 95 98.1 Physical Exam: PHYSICAL EXAM GENERAL: Propped up in bed, alert, in no apparent distress. HEENT: Pupils are equally round and reactive. Normal conjunctivae. Oropharynx is pink and moist. NECK: Supple. LUNGS: Clear to auscultation. HEART: S1 and S2. ABDOMEN: Soft and nontender with bowel sounds present. EXTREMITIES: No gross edema or cyanosis. Distal pulse is palpable. She has a plantar callus with an adjacent ruptured blister along with some maceration between the toes. There is no redness or drainage. Nontender. SKIN: Warm to touch. No signs of rash. NEUROLOGIC: Alert and oriented x 3. Medications: Inpatient Meds: Current Medications Medications (Trade) Dose Ordered Sig/Claudette Start Time Stop Time Status Last Admin Dose Admin Acetaminophen (Tylenol) 500 mg PRN Q6HRS PRN 04/13/19 20:30 Acetaminophen/ Hydrocodone Bitart (Lortab 5/325) 1 tab PRN Q4HRS PRN 04/13/19 20:30 Aspirin (Ecotrin) 81 mg DAILY08 04/14/19 08:00 04/15/19 08:25 81 MG Calcium Acetate (Phoslo) 1,334 mg TIDWMEALS 04/14/19 08:00 04/15/19 17:22 1,334 MG Ceftriaxone Sodium (Rocephin) 2 gm 1X ONCE 04/13/19 19:45 04/13/19 19:46 DC 04/13/19 20:06 2 GM Clonidine HCl (Catapres) 0.1 mg PRN Q1HR PRN 04/13/19 20:30 Dextrose 250 ml PRN Q15MIN PRN 04/13/19 20:30 Dextrose (Dextrose 50%-Water Syringe) 12.5 gm PRN Q15MIN PRN 04/13/19 20:30 Diphenhydramine HCl (Benadryl) 25 mg 1X PRN PRN 04/16/19 09:15 04/17/19 09:14 Diphenoxylate HCl/ Atropine (Lomotil) 2 tab 1X ONCE 04/15/19 23:00 04/15/19 23:01 Cancel Estradiol (Estrace) 1 amy 3X/WEEK 04/16/19 09:00 Fentanyl Citrate (Fentanyl 2ml Vial) 50 mcg PRN Q2HR PRN 04/13/19 20:30 Info (PHARMACY MONITORING -- do not chart) 1 each PRN DAILY PRN 04/16/19 09:15 Insulin Glargine (Lantus) 6 units QHS 04/13/19 21:00 04/15/19 20:57 3 UNITS Insulin Human Lispro (HumaLOG) 6 units TIDWMEALS 04/14/19 08:00 04/15/19 12:14 6 UNITS Lactobacillus Rhamnosus (Culturelle) 1 cap BID 04/14/19 21:00 04/15/19 20:57 1 CAP Loperamide HCl (Imodium) 2 mg 1X ONCE 04/15/19 23:00 04/15/19 23:01 DC 04/15/19 22:55 2 MG Meropenem 500 mg/ Sodium Chloride 50 ml @ 100 mls/hr DAILY 04/14/19 11:00 04/15/19 08:25 100 MLS/HR Ondansetron HCl (Zofran) 4 mg PRN Q6HRS PRN 04/13/19 20:30 Piperacillin Sod/ Tazobactam Sod (Zosyn Per Pharmacy) 1 each PRN DAILY PRN 04/13/19 20:30 04/14/19 10:36 DC Piperacillin Sod/ Tazobactam Sod 2.25 gm/Sodium Chloride 50 ml @ 100 mls/hr Q8HRS 04/13/19 22:30 04/14/19 10:36 DC 04/14/19 05:39 100 MLS/HR Sodium Chloride 1,000 ml @ 400 mls/hr Q2H30M PRN 04/16/19 09:05 04/16/19 21:04 Temazepam (Restoril) 7.5 mg PRN QHS PRN 04/13/19 20:30 Vancomycin HCl (Vanco Per Pharmacy) 1 each PRN DAILY PRN 04/13/19 20:30 04/15/19 15:07 1 EACH Vancomycin HCl 1.5 gm/Sodium Chloride 500 ml @ 250 mls/hr 1X ONCE 04/13/19 19:45 04/13/19 21:44 DC 04/13/19 20:06 250 MLS/HR Vancomycin HCl 500 mg/Sodium Chloride 100 ml @ 100 mls/hr QMWF 04/16/19 16:00 Vitamin B Complex/ Vitamin C (Funmi-Hannah) 1 tab DAILY 04/14/19 09:00 04/15/19 08:25 1 TAB Labs: Lab Laboratory Tests Test 04/15/19 16:44 04/15/19 20:35 04/16/19 04:30 04/16/19 07:44 Glucose (Fingerstick) 149 mg/dL (70-99) 167 mg/dL (70-99) 129 mg/dL (70-99) White Blood Count 6.2 x10^3/uL (4.0-11.0) Red Blood Count 3.42 x10^6/uL (3.50-5.40) Hemoglobin 11.6 g/dL (12.0-15.5) Hematocrit 34.9 % (36.0-47.0) Mean Corpuscular Volume 102 fL (79-100) Mean Corpuscular Hemoglobin 34 pg (25-35) Mean Corpuscular Hemoglobin Concent 33 g/dL (31-37) Red Cell Distribution Width 15.4 % (11.5-14.5) Platelet Count 157 x10^3/uL (140-400) Sodium Level 144 mmol/L (136-145) Potassium Level 4.3 mmol/L (3.5-5.1) Chloride Level 105 mmol/L (98-107) Carbon Dioxide Level 26 mmol/L (21-32) Anion Gap 13 (6-14) Blood Urea Nitrogen 47 mg/dL (7-20) Creatinine 7.3 mg/dL (0.6-1.0) Estimated GFR (Cockcroft-Gault) 5.4 Glucose Level 147 mg/dL (70-99) Calcium Level 8.6 mg/dL (8.5-10.1) Objective: Assessment: 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 ESR 86 CKD on hemodialyses via AV fistula h/o Enterobacter wound infection h/o ESBL in urine Plan: Plan of Care Vanc and meropenem f/u MRI to rule out osteo Local wound care MARIA ESTHER العلي MD Apr 16, 2019 12:17
--- NOTE | 2019-04-16 12:59 | NUR ---
SS following for discharge planning. SS reviewed pt chart. Pt is from home with spouse and is currently on room air. PT recommended home with home healthcare. Nurse navigator to meet with pt to discuss home healthcare and options. SS will continue to follow for discharge planning.
[2019-04-16] MEDS: MEROPENEM 500 MG in IV NORMAL SALINE 50ML 50 ML IV SCH (13:35)
[2019-04-16] MEDS: ASPIRIN ENTERIC COATED 81 MG TABLET.DR. PO SCH (13:36)
[2019-04-16] MEDS: FOLIC/VIT B COMP W-C (RENAL) TABLET. PO SCH (13:36)
--- NOTE | 2019-04-16 14:32 | NUR ---
Wound care: Patient seen per wound care consult. Patient is well known to us in the wound clinic. Patient seen for DFU on the left plantar foot. Patient had MRI today regarding possible osteo, awaiting results. Wound cleansed and assessed. Recommendations to pain with Betadine at this time. Wound is dry with no drainage. Betadine applied. Will follow up with patient after MRI results and POC has been determined. No other wounds noted at this time. Bed lowered and call light in reach.
[2019-04-16] MEDS: VANCOMYCIN PER PHARMACY MC PRN (14:40)
[2019-04-16 15:00] VITALS: BP 122/53
[2019-04-16] MEDS: ESTRADIOL 0.01% VAGINAL CREAM 42.5GM TUBE. VG SCH (15:29)
[2019-04-16] MEDS ORDERED: VANCOMYCIN 500 MG in IV NORMAL SALINE 100ML 100 ML IV SCH (16:00)
--- NOTE | 2019-04-16 16:34 | RAD ---
STUDY: MRI of the left foot without contrast INDICATION: Concern for osteomyelitis. COMPARISON: None. TECHNIQUE: Multiplanar MR imaging of the left foot performed without the use of intravenous contrast. FINDINGS: The [id number] includes the forefoot and midfoot as well as a portion of the hindfoot. Partially visualized postsurgical changes at the medial malleolus. No signal changes to suggest osteomyelitis throughout the imaged foot. Apparent T2 signal elevation scattered about the phalanges on the T2 sequences is without corresponding T1 signal loss and is most compatible with artifact from incomplete fat suppression. Hallux valgus alignment with degenerative remodeling of the metatarsal head and base of the first proximal phalanx and some mild adjacent degenerative edema. Degenerative lateral subluxation of the hallux sesamoids. Scattered degenerative changes elsewhere throughout the imaged foot. No acute fracture. Soft tissue thickening about the great toe MTP joint without significant edema. No drainable fluid collection, large ulcer or discernible sinus tract. Flexor hallucis longus tendinosis. No acute tendinous injury. Multifocal muscular atrophy. Some intermetatarsal fluid at the second and third web spaces. No large joint effusion. IMPRESSION: 1. No signal changes of osteomyelitis throughout the imaged foot. Soft tissue thickening about the great toe MTP joint without visualized cutaneous defect, drainable fluid collection or sinus tract. 2. Hallux valgus deformity and advanced degenerative changes across the great toe MTP joint and scattered less pronounced degenerative changes elsewhere. No acute fracture. Electronically signed by: DAVID BELLAMY MD (04/16/2019 4:31 PM) [id number]
[2019-04-16 19:00] VITALS: BP 116/44
[2019-04-16] MEDS: INSULIN GLARGINE 300 UNITS/3 ML INSULN.PEN. SQ SCH (21:00)
--- NOTE | 2019-04-16 21:10 | NUR ---
Pt refused scheduled Lantus dose this PM d/t blood sugar reading of 126, will continue to monitor.
[2019-04-16 23:00] VITALS: BP 101/44
[2019-04-17 03:00] VITALS: BP 117/56
[2019-04-17 06:19] LABS: BASO % 1 % (0-3); EOS # 0.2 x10^3/uL (0.0-0.7); EOS % 3 % (0-3); HEMATOCRIT 35.3 % (36.0-47.0); HEMOGLOBIN 11.6 g/dL (12.0-15.5); LYMPH # 1.7 x10^3/uL (1.0-4.8); LYMPH % 28 % (24-48); MEAN CORPUSCULAR HEMOGLOBIN 34 pg (25-35); MEAN CORPUSCULAR HGB CONC 33 g/dL (31-37); MEAN CORPUSCULAR VOLUME 102 fL (79-100); MONO # 0.6 x10^3/uL (0.0-1.1); MONO % 10 % (0-9); NEUT # 3.6 x10^3/uL (1.8-7.7); NEUT % 59 % (31-73); PLATELET COUNT 141 x10^3/uL (140-400); RED BLOOD COUNT 3.48 x10^6/uL (3.50-5.40); WHITE BLOOD COUNT 6.1 x10^3/uL (4.0-11.0)
[2019-04-17 06:35] LABS: ALBUMIN 2.6 g/dL (3.4-5.0); CALCIUM 8.5 mg/dL (8.5-10.1); CREATININE 5.6 mg/dL (0.6-1.0); GFR 7.4; PHOSPHORUS 5.5 mg/dL (2.6-4.7); POTASSIUM 4.4 mmol/L (3.5-5.1)
[2019-04-17 07:00] VITALS: BP 132/57
[2019-04-17] MEDS: CALCIUM ACETATE 667 MG CAPSULE PO SCH ×3 (07:50→17:16)
[2019-04-17] MEDS: LACTOBACILLUS RHAMNOSUS GG 1 CAPSULE. PO SCH ×2 (07:50→21:03)
[2019-04-17] MEDS: FOLIC/VIT B COMP W-C (RENAL) TABLET. PO SCH (07:50)
[2019-04-17] MEDS: ASPIRIN ENTERIC COATED 81 MG TABLET.DR. PO SCH (07:50)
[2019-04-17] MEDS: MEROPENEM 500 MG in IV NORMAL SALINE 50ML 50 ML IV SCH (07:51)
[2019-04-17] MEDS: INSULIN LISPRO 300 UNITS/3 ML VIAL. SQ SCH ×6 (07:51→17:31)
--- NOTE | 2019-04-17 09:26 | PDOC ---
SUBJECTIVE ROS Stable OBJECTIVE Vital Signs Vital Signs Date Time Temp Pulse Resp B/P (MAP) Pulse Ox O2 Delivery O2 Flow Rate FiO2 04/17/19 07:00 98.1 86 16 132/57 (82) 94 Room Air 98.1 I & 0 Intake and Output 04/17/19 07:00 Intake Total 270 ml Output Total 0 ml Balance 270 ml Intake Oral 270 ml Output Urine Total 0 ml # Voids 4 PHYSICAL EXAM Physical Exam GENERAL: Propped up in bed, no apparent distress. HEENT: Oropharynx is pink and moist. NECK: Supple. LUNGS: Clear to auscultation. HEART: S1 and S2. ABDOMEN: Soft and nontender EXTREMITIES: No gross edema or cyanosis. SKIN: No signs of rash. NEUROLOGIC: Alert and oriented x 3. DIAGNOSIS/ASSESSMENT Assessment & Plan ESRD- MWF No indication of HD today Diabetic ulcer left foot with questionable osteomyelitis on x-ray On Abx per ID DM II- per primary HTN- BP stable Antihypertensives Anemia- No indication for BIJAN currently COMMENT/RELEVANT DATA Meds Current Medications Medications (Trade) Dose Ordered Sig/Claudette Start Time Stop Time Status Last Admin Dose Admin Acetaminophen (Tylenol) 500 mg PRN Q6HRS PRN 04/13/19 20:30 Acetaminophen/ Hydrocodone Bitart (Lortab 5/325) 1 tab PRN Q4HRS PRN 04/13/19 20:30 Aspirin (Ecotrin) 81 mg DAILY08 04/14/19 08:00 04/17/19 08:02 81 MG Calcium Acetate (Phoslo) 1,334 mg TIDWMEALS 04/14/19 08:00 04/17/19 08:02 1,334 MG Ceftriaxone Sodium (Rocephin) 2 gm 1X ONCE 04/13/19 19:45 04/13/19 19:46 DC 04/13/19 20:06 2 GM Clonidine HCl (Catapres) 0.1 mg PRN Q1HR PRN 04/13/19 20:30 Dextrose 250 ml PRN Q15MIN PRN 04/13/19 20:30 Dextrose (Dextrose 50%-Water Syringe) 12.5 gm PRN Q15MIN PRN 04/13/19 20:30 Diphenhydramine HCl (Benadryl) 25 mg 1X PRN PRN 04/16/19 09:15 04/17/19 09:14 DC Diphenoxylate HCl/ Atropine (Lomotil) 2 tab 1X ONCE 04/15/19 23:00 04/15/19 23:01 Cancel Estradiol (Estrace) 1 amy 3X/WEEK 04/16/19 09:00 04/16/19 15:34 1 AMY Fentanyl Citrate (Fentanyl 2ml Vial) 50 mcg PRN Q2HR PRN 04/13/19 20:30 Info (PHARMACY MONITORING -- do not chart) 1 each PRN DAILY PRN 04/16/19 09:15 Insulin Glargine (Lantus) 6 units QHS 04/13/19 21:00 04/15/19 20:57 3 UNITS Insulin Human Lispro (HumaLOG) 6 units TIDWMEALS 04/14/19 08:00 04/17/19 08:02 6 UNITS Lactobacillus Rhamnosus (Culturelle) 1 cap BID 04/14/19 21:00 04/17/19 08:02 1 CAP Loperamide HCl (Imodium) 2 mg 1X ONCE 04/15/19 23:00 04/15/19 23:01 DC 04/15/19 22:55 2 MG Meropenem 500 mg/ Sodium Chloride 50 ml @ 100 mls/hr DAILY 04/14/19 11:00 04/17/19 08:02 100 MLS/HR Ondansetron HCl (Zofran) 4 mg PRN Q6HRS PRN 04/13/19 20:30 Piperacillin Sod/ Tazobactam Sod (Zosyn Per Pharmacy) 1 each PRN DAILY PRN 04/13/19 20:30 04/14/19 10:36 DC Piperacillin Sod/ Tazobactam Sod 2.25 gm/Sodium Chloride 50 ml @ 100 mls/hr Q8HRS 04/13/19 22:30 04/14/19 10:36 DC 04/14/19 05:39 100 MLS/HR Sodium Chloride 1,000 ml @ 400 mls/hr Q2H30M PRN 04/16/19 09:05 04/16/19 21:04 DC Temazepam (Restoril) 7.5 mg PRN QHS PRN 04/13/19 20:30 Vancomycin HCl (Vanco Per Pharmacy) 1 each PRN DAILY PRN 04/13/19 20:30 04/16/19 14:40 1 EACH Vancomycin HCl 1.5 gm/Sodium Chloride 500 ml @ 250 mls/hr 1X ONCE 04/13/19 19:45 04/13/19 21:44 DC 04/13/19 20:06 250 MLS/HR Vancomycin HCl 500 mg/Sodium Chloride 100 ml @ 100 mls/hr QMWF 04/16/19 16:00 04/16/19 15:34 100 MLS/HR Vitamin B Complex/ Vitamin C (Funmi-Hannah) 1 tab DAILY 04/14/19 09:00 04/17/19 08:02 1 TAB Lab Laboratory Tests Test 04/16/19 16:56 04/16/19 20:45 04/17/19 05:00 04/17/19 07:17 Glucose (Fingerstick) 172 mg/dL (70-99) 126 mg/dL (70-99) 154 mg/dL (70-99) White Blood Count 6.1 x10^3/uL (4.0-11.0) Red Blood Count 3.48 x10^6/uL (3.50-5.40) Hemoglobin 11.6 g/dL (12.0-15.5) Hematocrit 35.3 % (36.0-47.0) Mean Corpuscular Volume 102 fL (79-100) Mean Corpuscular Hemoglobin 34 pg (25-35) Mean Corpuscular Hemoglobin Concent 33 g/dL (31-37) Red Cell Distribution Width 16.0 % (11.5-14.5) Platelet Count 141 x10^3/uL (140-400) Neutrophils (%) (Auto) 59 % (31-73) Lymphocytes (%) (Auto) 28 % (24-48) Monocytes (%) (Auto) 10 % (0-9) Eosinophils (%) (Auto) 3 % (0-3) Basophils (%) (Auto) 1 % (0-3) Neutrophils # (Auto) 3.6 x10^3/uL (1.8-7.7) Lymphocytes # (Auto) 1.7 x10^3/uL (1.0-4.8) Monocytes # (Auto) 0.6 x10^3/uL (0.0-1.1) Eosinophils # (Auto) 0.2 x10^3/uL (0.0-0.7) Basophils # (Auto) 0.0 x10^3/uL (0.0-0.2) Sodium Level 141 mmol/L (136-145) Potassium Level 4.4 mmol/L (3.5-5.1) Chloride Level 102 mmol/L (98-107) Carbon Dioxide Level 30 mmol/L (21-32) Anion Gap 9 (6-14) Blood Urea Nitrogen 29 mg/dL (7-20) Creatinine 5.6 mg/dL (0.6-1.0) Estimated GFR (Cockcroft-Gault) 7.4 Glucose Level 183 mg/dL (70-99) Calcium Level 8.5 mg/dL (8.5-10.1) Phosphorus Level 5.5 mg/dL (2.6-4.7) Albumin 2.6 g/dL (3.4-5.0) Results All relevant outside records, renal labs, imaging studies, telemetry/EKG's were reviewed. LUCIO TORRES MD Apr 17, 2019 09:26
--- NOTE | 2019-04-17 10:52 | PDOC ---
PROGRESS NOTES Chief Complaint Chief Complaint Left plantar heel wound concerning for osteo on mri , 04/16 No signal changes of osteomyelitis throughout the imaged foot. Soft tissue thickening about the great toe MTP joint without visualized cutaneous defect, drainable fluid collection or sinus tract. Hallux valgus deformity and advanced degenerative changes across the great toe MTP joint and scattered less pronounced degenerative changes elsewhere. No acute fracture. ESRD on HD, compliant AOCD HTN, CABG chronic stable DM 2 with good control Diabetic ulcer left foot On Abx per ID iv Vanc and meropenem 04/17 NOT HAPPY WITH RENAL DIET 28 min pt exam, chart review, > 50% of time spent with exam, chart review, pt care coordination History of Present Illness History of Present Illness cont the IV abx, ID following MRI ordered for osteo eval of foot Wound care following SSI Vitals Vitals Vital Signs Date Time Temp Pulse Resp B/P (MAP) Pulse Ox O2 Delivery O2 Flow Rate FiO2 04/17/19 07:00 98.1 86 16 132/57 (82) 94 Room Air 98.1 Physical Exam Physical Exam GENERAL: Propped up in bed, alert, in no apparent distress. HEENT: Pupils are equally round and reactive. Normal conjunctivae. Oropharynx is pink and moist. NECK: Supple. LUNGS: Clear to auscultation. HEART: S1 and S2. ABDOMEN: Soft and nontender with bowel sounds present. EXTREMITIES: No gross edema or cyanosis. Distal pulse is palpable. She has a plantar callus with an adjacent ruptured blister along with some maceration between the toes. There is no redness or drainage. Nontender. SKIN: Warm to touch. No signs of rash. NEUROLOGIC: Alert and oriented x 3. General: Alert, Oriented X3, Cooperative, No acute distress Heart: Regular rate, Normal S1, Normal S2 Lungs: Clear Abdomen: Normal bowel sounds, Soft, No tenderness Extremities: No clubbing, No cyanosis Skin: No breakdown Labs LABS PATIENT: BRYANT LOCKHART ACCT: [id number] LOC: [address] [place] [address] U: [id number] AGE/SX: 78/F ROOM: 408 RE04/13/[address]: CHLOE SCHAFER MD : [id number] BED: 1 DIS: STATUS: ADM IN TLOC: SPEC #: [id number] DORIS: 04/14/19 STATUS: RES REQ #: [id number] RECD: 04/14/[address] [facility] [address]: RICHARD VYAS APRN SOURCE: BLOOD ENTR: 04/13/[address] [facility] [address]: ANA CRISTINA العلي MD SPDC: LISA CALHOUN VENU S MD ORDERED: BCULT Procedure Result BLOOD CULTURE Preliminary NO GROWTH AFTER 3 DAYS REASON: rule out osteomyelitis, PROCEDURE: LOWER EXT NON JOINT WO LT STUDY: MRI of the left foot without contrast INDICATION: Concern for osteomyelitis. COMPARISON: None. TECHNIQUE: Multiplanar MR imaging of the left foot performed without the use of intravenous contrast. FINDINGS: The [id number] includes the forefoot and midfoot as well as a portion of the hindfoot. Partially visualized postsurgical changes at the medial malleolus. No signal changes to suggest osteomyelitis throughout the imaged foot. Apparent T2 signal elevation scattered about the phalanges on the T2 sequences is without corresponding T1 signal loss and is most compatible with artifact from incomplete fat suppression. Hallux valgus alignment with degenerative remodeling of the metatarsal head and base of the first proximal phalanx and some mild adjacent degenerative edema. Degenerative lateral subluxation of the hallux sesamoids. Scattered degenerative changes elsewhere throughout the imaged foot. No acute fracture. Soft tissue thickening about the great toe MTP joint without significant edema. No drainable fluid collection, large ulcer or discernible sinus tract. Flexor hallucis longus tendinosis. No acute tendinous injury. Multifocal muscular atrophy. Some intermetatarsal fluid at the second and third web spaces. No large joint effusion. IMPRESSION: 1. No signal changes of osteomyelitis throughout the imaged foot. Soft tissue thickening about the great toe MTP joint without visualized cutaneous defect, drainable fluid collection or sinus tract. 2. Hallux valgus deformity and advanced degenerative changes across the great toe MTP joint and scattered less pronounced degenerative changes elsewhere. No acute fracture. Electronically signed by: DAVID BELLAMY MD (04/16/2019 4:31 PM) [id number] Laboratory Tests Test 04/16/19 16:56 04/16/19 20:45 04/17/19 05:00 04/17/19 07:17 Glucose (Fingerstick) 172 mg/dL (70-99) 126 mg/dL (70-99) 154 mg/dL (70-99) White Blood Count 6.1 x10^3/uL (4.0-11.0) Red Blood Count 3.48 x10^6/uL (3.50-5.40) Hemoglobin 11.6 g/dL (12.0-15.5) Hematocrit 35.3 % (36.0-47.0) Mean Corpuscular Volume 102 fL (79-100) Mean Corpuscular Hemoglobin 34 pg (25-35) Mean Corpuscular Hemoglobin Concent 33 g/dL (31-37) Red Cell Distribution Width 16.0 % (11.5-14.5) Platelet Count 141 x10^3/uL (140-400) Neutrophils (%) (Auto) 59 % (31-73) Lymphocytes (%) (Auto) 28 % (24-48) Monocytes (%) (Auto) 10 % (0-9) Eosinophils (%) (Auto) 3 % (0-3) Basophils (%) (Auto) 1 % (0-3) Neutrophils # (Auto) 3.6 x10^3/uL (1.8-7.7) Lymphocytes # (Auto) 1.7 x10^3/uL (1.0-4.8) Monocytes # (Auto) 0.6 x10^3/uL (0.0-1.1) Eosinophils # (Auto) 0.2 x10^3/uL (0.0-0.7) Basophils # (Auto) 0.0 x10^3/uL (0.0-0.2) Sodium Level 141 mmol/L (136-145) Potassium Level 4.4 mmol/L (3.5-5.1) Chloride Level 102 mmol/L (98-107) Carbon Dioxide Level 30 mmol/L (21-32) Anion Gap 9 (6-14) Blood Urea Nitrogen 29 mg/dL (7-20) Creatinine 5.6 mg/dL (0.6-1.0) Estimated GFR (Cockcroft-Gault) 7.4 Glucose Level 183 mg/dL (70-99) Calcium Level 8.5 mg/dL (8.5-10.1) Phosphorus Level 5.5 mg/dL (2.6-4.7) Albumin 2.6 g/dL (3.4-5.0) Assessment and Plan Assessmemt and Plan Problems Medical Problems: (1) DM2 (diabetes mellitus, type 2) Status: Chronic (2) HTN (hypertension) Status: Chronic Comment Review of Relevant I have reviewed the following items anastasiya (where applicable) has been applied. Labs Laboratory Tests Test 04/15/19 10:59 04/15/19 16:44 04/15/19 20:35 04/16/19 04:30 Glucose (Fingerstick) 208 mg/dL (70-99) 149 mg/dL (70-99) 167 mg/dL (70-99) White Blood Count 6.2 x10^3/uL (4.0-11.0) Red Blood Count 3.42 x10^6/uL (3.50-5.40) Hemoglobin 11.6 g/dL (12.0-15.5) Hematocrit 34.9 % (36.0-47.0) Mean Corpuscular Volume 102 fL (79-100) Mean Corpuscular Hemoglobin 34 pg (25-35) Mean Corpuscular Hemoglobin Concent 33 g/dL (31-37) Red Cell Distribution Width 15.4 % (11.5-14.5) Platelet Count 157 x10^3/uL (140-400) Sodium Level 144 mmol/L (136-145) Potassium Level 4.3 mmol/L (3.5-5.1) Chloride Level 105 mmol/L (98-107) Carbon Dioxide Level 26 mmol/L (21-32) Anion Gap 13 (6-14) Blood Urea Nitrogen 47 mg/dL (7-20) Creatinine 7.3 mg/dL (0.6-1.0) Estimated GFR (Cockcroft-Gault) 5.4 Glucose Level 147 mg/dL (70-99) Calcium Level 8.6 mg/dL (8.5-10.1) Test 04/16/19 07:44 04/16/19 16:56 04/16/19 20:45 04/17/19 05:00 Glucose (Fingerstick) 129 mg/dL (70-99) 172 mg/dL (70-99) 126 mg/dL (70-99) White Blood Count 6.1 x10^3/uL (4.0-11.0) Red Blood Count 3.48 x10^6/uL (3.50-5.40) Hemoglobin 11.6 g/dL (12.0-15.5) Hematocrit 35.3 % (36.0-47.0) Mean Corpuscular Volume 102 fL (79-100) Mean Corpuscular Hemoglobin 34 pg (25-35) Mean Corpuscular Hemoglobin Concent 33 g/dL (31-37) Red Cell Distribution Width 16.0 % (11.5-14.5) Platelet Count 141 x10^3/uL (140-400) Neutrophils (%) (Auto) 59 % (31-73) Lymphocytes (%) (Auto) 28 % (24-48) Monocytes (%) (Auto) 10 % (0-9) Eosinophils (%) (Auto) 3 % (0-3) Basophils (%) (Auto) 1 % (0-3) Neutrophils # (Auto) 3.6 x10^3/uL (1.8-7.7) Lymphocytes # (Auto) 1.7 x10^3/uL (1.0-4.8) Monocytes # (Auto) 0.6 x10^3/uL (0.0-1.1) Eosinophils # (Auto) 0.2 x10^3/uL (0.0-0.7) Basophils # (Auto) 0.0 x10^3/uL (0.0-0.2) Sodium Level 141 mmol/L (136-145) Potassium Level 4.4 mmol/L (3.5-5.1) Chloride Level 102 mmol/L (98-107) Carbon Dioxide Level 30 mmol/L (21-32) Anion Gap 9 (6-14) Blood Urea Nitrogen 29 mg/dL (7-20) Creatinine 5.6 mg/dL (0.6-1.0) Estimated GFR (Cockcroft-Gault) 7.4 Glucose Level 183 mg/dL (70-99) Calcium Level 8.5 mg/dL (8.5-10.1) Phosphorus Level 5.5 mg/dL (2.6-4.7) Albumin 2.6 g/dL (3.4-5.0) Test 04/17/19 07:17 Glucose (Fingerstick) 154 mg/dL (70-99) Laboratory Tests Test 04/16/19 16:56 04/16/19 20:45 04/17/19 05:00 04/17/19 07:17 Glucose (Fingerstick) 172 mg/dL (70-99) 126 mg/dL (70-99) 154 mg/dL (70-99) White Blood Count 6.1 x10^3/uL (4.0-11.0) Red Blood Count 3.48 x10^6/uL (3.50-5.40) Hemoglobin 11.6 g/dL (12.0-15.5) Hematocrit 35.3 % (36.0-47.0) Mean Corpuscular Volume 102 fL (79-100) Mean Corpuscular Hemoglobin 34 pg (25-35) Mean Corpuscular Hemoglobin Concent 33 g/dL (31-37) Red Cell Distribution Width 16.0 % (11.5-14.5) Platelet Count 141 x10^3/uL (140-400) Neutrophils (%) (Auto) 59 % (31-73) Lymphocytes (%) (Auto) 28 % (24-48) Monocytes (%) (Auto) 10 % (0-9) Eosinophils (%) (Auto) 3 % (0-3) Basophils (%) (Auto) 1 % (0-3) Neutrophils # (Auto) 3.6 x10^3/uL (1.8-7.7) Lymphocytes # (Auto) 1.7 x10^3/uL (1.0-4.8) Monocytes # (Auto) 0.6 x10^3/uL (0.0-1.1) Eosinophils # (Auto) 0.2 x10^3/uL (0.0-0.7) Basophils # (Auto) 0.0 x10^3/uL (0.0-0.2) Sodium Level 141 mmol/L (136-145) Potassium Level 4.4 mmol/L (3.5-5.1) Chloride Level 102 mmol/L (98-107) Carbon Dioxide Level 30 mmol/L (21-32) Anion Gap 9 (6-14) Blood Urea Nitrogen 29 mg/dL (7-20) Creatinine 5.6 mg/dL (0.6-1.0) Estimated GFR (Cockcroft-Gault) 7.4 Glucose Level 183 mg/dL (70-99) Calcium Level 8.5 mg/dL (8.5-10.1) Phosphorus Level 5.5 mg/dL (2.6-4.7) Albumin 2.6 g/dL (3.4-5.0) Microbiology 04/14/19 Blood Culture - Preliminary, Resulted NO GROWTH AFTER 3 DAYS Medications Current Medications Vancomycin HCl 1.5 gm/Sodium Chloride 500 ml @ 250 mls/hr 1X ONCE IV Last administered on 04/13/19at 20:06; Start 04/13/19 at 19:45; Stop 04/13/19 at 21:44; Status DC Ceftriaxone Sodium (Rocephin) 2 gm 1X ONCE IVP Last administered on 04/13/19at 20:06; Start 04/13/19 at 19:45; Stop 04/13/19 at 19:46; Status DC Ondansetron HCl (Zofran) 4 mg PRN Q8HRS PRN IV NAUSEA/VOMITING Last administered on 04/13/19at 20:19; Start 04/13/19 at 19:45; Stop 04/13/19 at 20:25; Status DC Fentanyl Citrate (Fentanyl 2ml Vial) 50 mcg PRN Q1HR PRN IV PAIN; Start 04/13/19 at 19:45; Stop 04/13/19 at 20:25; Status DC Acetaminophen (Tylenol) 650 mg PRN Q4HRS PRN PO FEVER; Start 04/13/19 at 19:45; Stop 04/14/19 at 19:44; Status DC Fentanyl Citrate (Fentanyl 2ml Vial) 50 mcg PRN Q2HR PRN IV PAIN; Start 04/13/19 at 20:30 Ondansetron HCl (Zofran) 4 mg PRN Q6HRS PRN IV NAUSEA/VOMITING; Start 04/13/19 at 20:30 Insulin Human Lispro (HumaLOG) 0-9 UNITS TIDWMEALS SQ Last administered on 04/16/19at 17:31; Start 04/14/19 at 08:00 Dextrose (Dextrose 50%-Water Syringe) 12.5 gm PRN Q15MIN PRN IV SEE COMMENTS; Start 04/13/19 at 20:30 Dextrose 250 ml PRN Q15MIN PRN IV SEE COMMENTS; Start 04/13/19 at 20:30 Vancomycin HCl (Vanco Per Pharmacy) 1 each PRN DAILY PRN MC SEE COMMENTS Last administered on 04/16/19at 14:40; Start 04/13/19 at 20:30 Piperacillin Sod/ Tazobactam Sod (Zosyn Per Pharmacy) 1 each PRN DAILY PRN MC SEE COMMENTS; Start 04/13/19 at 20:30; Stop 04/14/19 at 10:36; Status DC Clonidine HCl (Catapres) 0.1 mg PRN Q1HR PRN PO HYPERTENSION; Start 04/13/19 at 20:30 Acetaminophen/ Hydrocodone Bitart (Lortab 5/325) 1 tab PRN Q4HRS PRN PO MODERATE - SEVERE PAIN; Start 04/13/19 at 20:30 Acetaminophen (Tylenol) 500 mg PRN Q6HRS PRN PO MILD PAIN / TEMP; Start 04/13/19 at 20:30 Temazepam (Restoril) 7.5 mg PRN QHS PRN PO INSOMNIA; Start 04/13/19 at 20:30 Aspirin (Ecotrin) 81 mg DAILY08 PO Last administered on 04/17/19at 08:02; Start 04/14/19 at 08:00 Estradiol (Estrace) 1 scotty 3X/WEEK VG Last administered on 04/16/19at 15:34; Start 04/16/19 at 09:00 Insulin Glargine (Lantus) 6 units QHS SQ Last administered on 04/15/19at 20:57; Start 04/13/19 at 21:00 Calcium Acetate (Phoslo) 1,334 mg TIDWMEALS PO Last administered on 04/17/19at 08:02; Start 04/14/19 at 08:00 Insulin Human Lispro (HumaLOG) 6 units TIDWMEALS SQ Last administered on 04/17/19at 08:02; Start 04/14/19 at 08:00 Vitamin B Complex/ Vitamin C (Funmi-Hannah) 1 tab DAILY PO Last administered on at 08:02; Start 04/14/19 at 09:00 Piperacillin Sod/ Tazobactam Sod 2.25 gm/Sodium Chloride 50 ml @ 100 mls/hr Q8HRS IV Last administered on 04/14/19at 05:39; Start 04/13/19 at 22:30; Stop 04/14/19 at 10:36; Status DC Meropenem 500 mg/ Sodium Chloride 50 ml @ 100 mls/hr DAILY IV Last administered on 04/17/19at 08:02; Start 04/14/19 at 11:00 Lactobacillus Rhamnosus (Culturelle) 1 cap BID PO Last administered on 04/17/19at 08:02; Start 04/14/19 at 21:00 Vancomycin HCl 500 mg/Sodium Chloride 100 ml @ 100 mls/hr QMWF IV Last administered on 04/16/19at 15:34; Start 04/16/19 at 16:00 Diphenoxylate HCl/ Atropine (Lomotil) 2 tab 1X ONCE PO ; Start 04/15/19 at 23:00; Stop 04/15/19 at 23:01; Status Cancel Loperamide HCl (Imodium) 2 mg 1X ONCE PO Last administered on 04/15/19at 22:55; Start 04/15/19 at 23:00; Stop 04/15/19 at 23:01; Status DC Sodium Chloride 1,000 ml @ 1,000 mls/hr Q1H PRN IV hypotension; Start 04/16/19 at 09:05; Stop 04/16/19 at 15:04; Status DC Diphenhydramine HCl (Benadryl) 25 mg 1X PRN PRN IV ITCHING; Start 04/16/19 at 09:15; Stop 04/17/19 at 09:14; Status DC Diphenhydramine HCl (Benadryl) 25 mg 1X PRN PRN IV ITCHING; Start 04/16/19 at 09:15; Stop 04/17/19 at 09:14; Status DC Sodium Chloride 1,000 ml @ 400 mls/hr Q2H30M PRN IV PATENCY; Start 04/16/19 at 09:05; Stop 04/16/19 at 21:04; Status DC Info (PHARMACY MONITORING -- do not chart) 1 each PRN DAILY PRN MC SEE COMMENTS; Start 04/16/19 at 09:15 Active Scripts Active Keflex (Cephalexin) 500 Mg Capsule 1,000 Mg PO BID 7 Days Estrace (Estradiol) 42.5 Gm Cream.appl 1 Scotty VG 3X/WEEK 14 Days Reported Funmi-Hannah Rx Tablet (Vit B Cmplx 3/Fa/Vit C/Biotin) 1 Each Tablet 1 Each PO DAILY Amox Tr-K Clv 875-125 Mg Tab (Amoxicillin/Potassium Clav) 1 Each Tablet 1 Tab PO BID Novolog (Insulin Aspart) 100 Unit/1 Ml Cartridge 6 Unit SQ TIDAC Lantus Solostar (Insulin Glargine,Hum.rec.anlog) 100 Unit/1 Ml Insuln.pen 6 Unit SQ QHS [regrenex] TOP DAILY PRN Calcium Acetate 667 Mg Tablet 2 Cap PO TIDAC Aspir 81 (Aspirin) 81 Mg Tablet. 1 Tab PO DAILY08 Vitals/I & O Vital Sign - Last 24 Hours 04/16/19 04/16/19 04/16/19 04/16/19 15:00 19:00 19:45 23:00 Temp 98.1 98.3 99.1 98.1 98.3 99.1 Pulse 99 75 83 Resp 16 16 16 B/P (MAP) 122/53 (76) 116/44 (68) 101/44 (63) Pulse Ox 93 94 92 O2 Delivery Room Air Room Air Room Air Room Air 04/17/19 04/17/19 03:00 07:00 Temp 98.0 98.1 98.0 98.1 Pulse 83 86 Resp 16 16 B/P (MAP) 117/56 (76) 132/57 (82) Pulse Ox 92 94 O2 Delivery Room Air Room Air Intake and Output 0 04/16/19 04/16/19 04/17/19 14:59 22:59 06:59 Intake Total 120 ml 150 ml Output Total 0 ml Balance 120 ml 150 ml FLORI DAVIES MD Apr 17, 2019 10:52
--- NOTE | 2019-04-17 10:54 | PDOC ---
Infectious Disease Note Subjective: Subjective Feels good Denies pain/F/C/S/N/V/D ROS: ROS Negative otherwise. Vital Signs: Vital Signs Vital Signs Date Time Temp Pulse Resp B/P (MAP) Pulse Ox O2 Delivery O2 Flow Rate FiO2 04/17/19 07:00 98.1 86 16 132/57 (82) 94 Room Air 98.1 Physical Exam: PHYSICAL EXAM GENERAL: Propped up in bed, alert, in no apparent distress. HEENT: Pupils are equally round and reactive. Normal conjunctivae. Oropharynx is pink and moist. NECK: Supple. LUNGS: Clear to auscultation. HEART: S1 and S2. ABDOMEN: Soft and nontender with bowel sounds present. EXTREMITIES: No gross edema or cyanosis. Distal pulse is palpable. She has a plantar callus with an adjacent ruptured blister along with some maceration between the toes. There is no redness or drainage. Nontender. SKIN: Warm to touch. No signs of rash. NEUROLOGIC: Alert and oriented x 3. Medications: Inpatient Meds: Current Medications Medications (Trade) Dose Ordered Sig/Claudette Start Time Stop Time Status Last Admin Dose Admin Acetaminophen (Tylenol) 500 mg PRN Q6HRS PRN 04/13/19 20:30 Acetaminophen/ Hydrocodone Bitart (Lortab 5/325) 1 tab PRN Q4HRS PRN 04/13/19 20:30 Aspirin (Ecotrin) 81 mg DAILY08 04/14/19 08:00 04/17/19 08:02 81 MG Calcium Acetate (Phoslo) 1,334 mg TIDWMEALS 04/14/19 08:00 04/17/19 08:02 1,334 MG Ceftriaxone Sodium (Rocephin) 2 gm 1X ONCE 04/13/19 19:45 04/13/19 19:46 DC 04/13/19 20:06 2 GM Clonidine HCl (Catapres) 0.1 mg PRN Q1HR PRN 04/13/19 20:30 Dextrose 250 ml PRN Q15MIN PRN 04/13/19 20:30 Dextrose (Dextrose 50%-Water Syringe) 12.5 gm PRN Q15MIN PRN 04/13/19 20:30 Diphenhydramine HCl (Benadryl) 25 mg 1X PRN PRN 04/16/19 09:15 04/17/19 09:14 DC Diphenoxylate HCl/ Atropine (Lomotil) 2 tab 1X ONCE 04/15/19 23:00 04/15/19 23:01 Cancel Estradiol (Estrace) 1 amy 3X/WEEK 04/16/19 09:00 04/16/19 15:34 1 AMY Fentanyl Citrate (Fentanyl 2ml Vial) 50 mcg PRN Q2HR PRN 04/13/19 20:30 Info (PHARMACY MONITORING -- do not chart) 1 each PRN DAILY PRN 04/16/19 09:15 Insulin Glargine (Lantus) 6 units QHS 04/13/19 21:00 04/15/19 20:57 3 UNITS Insulin Human Lispro (HumaLOG) 6 units TIDWMEALS 04/14/19 08:00 04/17/19 08:02 6 UNITS Lactobacillus Rhamnosus (Culturelle) 1 cap BID 04/14/19 21:00 04/17/19 08:02 1 CAP Loperamide HCl (Imodium) 2 mg 1X ONCE 04/15/19 23:00 04/15/19 23:01 DC 04/15/19 22:55 2 MG Meropenem 500 mg/ Sodium Chloride 50 ml @ 100 mls/hr DAILY 04/14/19 11:00 04/17/19 08:02 100 MLS/HR Ondansetron HCl (Zofran) 4 mg PRN Q6HRS PRN 04/13/19 20:30 Piperacillin Sod/ Tazobactam Sod (Zosyn Per Pharmacy) 1 each PRN DAILY PRN 04/13/19 20:30 04/14/19 10:36 DC Piperacillin Sod/ Tazobactam Sod 2.25 gm/Sodium Chloride 50 ml @ 100 mls/hr Q8HRS 04/13/19 22:30 04/14/19 10:36 DC 04/14/19 05:39 100 MLS/HR Sodium Chloride 1,000 ml @ 400 mls/hr Q2H30M PRN 04/16/19 09:05 04/16/19 21:04 DC Temazepam (Restoril) 7.5 mg PRN QHS PRN 04/13/19 20:30 Vancomycin HCl (Vanco Per Pharmacy) 1 each PRN DAILY PRN 04/13/19 20:30 04/16/19 14:40 1 EACH Vancomycin HCl 1.5 gm/Sodium Chloride 500 ml @ 250 mls/hr 1X ONCE 04/13/19 19:45 04/13/19 21:44 DC 04/13/19 20:06 250 MLS/HR Vancomycin HCl 500 mg/Sodium Chloride 100 ml @ 100 mls/hr QMWF 04/16/19 16:00 04/16/19 15:34 100 MLS/HR Vitamin B Complex/ Vitamin C (Funmi-Hannah) 1 tab DAILY 04/14/19 09:00 04/17/19 08:02 1 TAB Labs: Lab Laboratory Tests Test 04/16/19 16:56 04/16/19 20:45 04/17/19 05:00 04/17/19 07:17 Glucose (Fingerstick) 172 mg/dL (70-99) 126 mg/dL (70-99) 154 mg/dL (70-99) White Blood Count 6.1 x10^3/uL (4.0-11.0) Red Blood Count 3.48 x10^6/uL (3.50-5.40) Hemoglobin 11.6 g/dL (12.0-15.5) Hematocrit 35.3 % (36.0-47.0) Mean Corpuscular Volume 102 fL (79-100) Mean Corpuscular Hemoglobin 34 pg (25-35) Mean Corpuscular Hemoglobin Concent 33 g/dL (31-37) Red Cell Distribution Width 16.0 % (11.5-14.5) Platelet Count 141 x10^3/uL (140-400) Neutrophils (%) (Auto) 59 % (31-73) Lymphocytes (%) (Auto) 28 % (24-48) Monocytes (%) (Auto) 10 % (0-9) Eosinophils (%) (Auto) 3 % (0-3) Basophils (%) (Auto) 1 % (0-3) Neutrophils # (Auto) 3.6 x10^3/uL (1.8-7.7) Lymphocytes # (Auto) 1.7 x10^3/uL (1.0-4.8) Monocytes # (Auto) 0.6 x10^3/uL (0.0-1.1) Eosinophils # (Auto) 0.2 x10^3/uL (0.0-0.7) Basophils # (Auto) 0.0 x10^3/uL (0.0-0.2) Sodium Level 141 mmol/L (136-145) Potassium Level 4.4 mmol/L (3.5-5.1) Chloride Level 102 mmol/L (98-107) Carbon Dioxide Level 30 mmol/L (21-32) Anion Gap 9 (6-14) Blood Urea Nitrogen 29 mg/dL (7-20) Creatinine 5.6 mg/dL (0.6-1.0) Estimated GFR (Cockcroft-Gault) 7.4 Glucose Level 183 mg/dL (70-99) Calcium Level 8.5 mg/dL (8.5-10.1) Phosphorus Level 5.5 mg/dL (2.6-4.7) Albumin 2.6 g/dL (3.4-5.0) Micro MRI LT FOOT IMPRESSION: 1. No signal changes of osteomyelitis throughout the imaged foot. Soft tissue thickening about the great toe MTP joint without visualized cutaneous defect, drainable fluid collection or sinus tract. 2. Hallux valgus deformity and advanced degenerative changes across the great toe MTP joint and scattered less pronounced degenerative changes elsewhere. No acute fracture. Objective: Assessment: Diabetic ulcer left foot ESR 86 MRI neg for OM callus on foot for a long tiime CKD on hemodialysis via AV fistula h/o Enterobacter wound infection h/o ESBL in urine Plan: Plan of Care Vanc and meropenem Local wound care MARIA ESTHER العلي MD Apr 17, 2019 10:54
[2019-04-17 11:00] VITALS: BP 149/63
[2019-04-17] MEDS: VANCOMYCIN PER PHARMACY MC PRN (11:14)
--- NOTE | 2019-04-17 12:36 | NUR ---
SS following up with discharge planning. Nurse navigator met with SS to discuss home healthcare options. Pt adamantly declined home healthcare. SS will continue to follow for discharge planning.
[2019-04-17] MEDS ORDERED: FLUCONAZOLE 100 MG TABLET. PO ONE (14:30)
[2019-04-17 15:00] VITALS: BP 138/59
[2019-04-17 19:15] VITALS: BP 130/52
[2019-04-17] MEDS ORDERED: metroNIDAZOLE 0.75% VAGINAL 1 APP TUBE VG SCH (21:00)
[2019-04-17] MEDS: INSULIN GLARGINE 300 UNITS/3 ML INSULN.PEN. SQ SCH (21:07)
[2019-04-17 23:21] VITALS: BP 117/53
[2019-04-18 03:14] VITALS: BP 97/41
[2019-04-18 04:22] LABS: BASO # 0.1 x10^3/uL (0.0-0.2); BASO % 1 % (0-3); EOS # 0.2 x10^3/uL (0.0-0.7); EOS % 3 % (0-3); HEMATOCRIT 34.8 % (36.0-47.0); HEMOGLOBIN 11.5 g/dL (12.0-15.5); LYMPH # 1.7 x10^3/uL (1.0-4.8); LYMPH % 25 % (24-48); MEAN CORPUSCULAR HEMOGLOBIN 34 pg (25-35); MEAN CORPUSCULAR HGB CONC 33 g/dL (31-37); MEAN CORPUSCULAR VOLUME 102 fL (79-100); MONO # 0.6 x10^3/uL (0.0-1.1); MONO % 9 % (0-9); NEUT # 4.3 x10^3/uL (1.8-7.7); NEUT % 62 % (31-73); PLATELET COUNT 153 x10^3/uL (140-400); RED BLOOD COUNT 3.43 x10^6/uL (3.50-5.40); RED CELL DISTRIBUTION WIDTH 15.7 % (11.5-14.5); WHITE BLOOD COUNT 6.9 x10^3/uL (4.0-11.0)
[2019-04-18 04:47] LABS: ALBUMIN 2.6 g/dL (3.4-5.0); ALBUMIN/GLOBULIN RATIO 0.5 (1.0-1.7); CALCIUM 8.8 mg/dL (8.5-10.1); CREATININE 6.8 mg/dL (0.6-1.0); GFR 5.9; POTASSIUM 4.5 mmol/L (3.5-5.1); TOTAL BILIRUBIN 0.3 mg/dL (0.2-1.0); TOTAL PROTEIN 7.5 g/dL (6.4-8.2)
[2019-04-18 07:00] VITALS: BP 130/53
[2019-04-18] MEDS ORDERED: IV NORMAL SALINE 1000ML BAG 1,000 ML IV PRN ×2 (07:52)
[2019-04-18] MEDS ORDERED: ALBUMIN HUMAN 25% 200 ML IV PRN (08:00)
[2019-04-18] MEDS: INSULIN LISPRO 300 UNITS/3 ML VIAL. SQ SCH ×4 (08:00→14:19)
[2019-04-18] MEDS ORDERED: DIALYSIS PATIENT. MC PRN ×2 (08:00)
[2019-04-18] MEDS: ESTRADIOL 0.01% VAGINAL CREAM 42.5GM TUBE. VG SCH (09:00)
[2019-04-18] MEDS: MEROPENEM 500 MG in IV NORMAL SALINE 50ML 50 ML IV SCH (09:00)
--- NOTE | 2019-04-18 09:52 | PDOC ---
SUBJECTIVE ROS Stable , tolerating HD OBJECTIVE Vital Signs Vital Signs Date Time Temp Pulse Resp B/P (MAP) Pulse Ox O2 Delivery O2 Flow Rate FiO2 04/18/19 07:00 97.8 87 18 130/53 (78) 97 Room Air 97.8 I & 0 Intake and Output 04/18/19 06:59 Intake Total 240 ml Balance 240 ml Intake Oral 240 ml # Voids 2 # Bowel Movements 2 PHYSICAL EXAM Physical Exam GENERAL: Propped up in bed, no apparent distress. HEENT: Oropharynx is pink and moist. NECK: Supple. LUNGS: Clear to auscultation. HEART: S1 and S2. ABDOMEN: Soft and nontender EXTREMITIES: No gross edema or cyanosis. SKIN: No signs of rash. NEUROLOGIC: Alert and oriented x 3. 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 on x-ray On Abx per ID DM II- per primary HTN- BP stable Antihypertensives Anemia- No indication for BIJAN currently COMMENT/RELEVANT DATA Meds Current Medications Medications (Trade) Dose Ordered Sig/Claudette Start Time Stop Time Status Last Admin Dose Admin Acetaminophen (Tylenol) 500 mg PRN Q6HRS PRN 04/13/19 20:30 Acetaminophen/ Hydrocodone Bitart (Lortab 5/325) 1 tab PRN Q4HRS PRN 04/13/19 20:30 Albumin Human 200 ml @ 200 mls/hr 1X PRN PRN 04/18/19 08:00 04/18/19 13:59 Aspirin (Ecotrin) 81 mg DAILY08 04/14/19 08:00 04/17/19 08:02 81 MG Calcium Acetate (Phoslo) 1,334 mg TIDWMEALS 04/14/19 08:00 04/17/19 17:31 1,334 MG Ceftriaxone Sodium (Rocephin) 2 gm 1X ONCE 04/13/19 19:45 04/13/19 19:46 DC 04/13/19 20:06 2 GM Clonidine HCl (Catapres) 0.1 mg PRN Q1HR PRN 04/13/19 20:30 Dextrose 250 ml PRN Q15MIN PRN 04/13/19 20:30 Dextrose (Dextrose 50%-Water Syringe) 12.5 gm PRN Q15MIN PRN 04/13/19 20:30 Diphenhydramine HCl (Benadryl) 25 mg 1X PRN PRN 04/16/19 09:15 04/17/19 09:14 DC Diphenoxylate HCl/ Atropine (Lomotil) 2 tab 1X ONCE 04/15/19 23:00 04/15/19 23:01 Cancel Estradiol (Estrace) 1 amy 3X/WEEK 04/16/19 09:00 04/16/19 15:34 1 AMY Fentanyl Citrate (Fentanyl 2ml Vial) 50 mcg PRN Q2HR PRN 04/13/19 20:30 Fluconazole (Diflucan) 150 mg 1X ONCE 04/17/19 14:30 04/17/19 14:31 DC 04/17/19 15:14 150 MG Info (PHARMACY MONITORING -- do not chart) 1 each PRN DAILY PRN 04/18/19 08:00 UNV Insulin Glargine (Lantus) 6 units QHS 04/13/19 21:00 04/17/19 21:07 6 UNITS Insulin Human Lispro (HumaLOG) 6 units TIDWMEALS 04/14/19 08:00 04/17/19 17:31 6 UNITS Lactobacillus Rhamnosus (Culturelle) 1 cap BID 04/14/19 21:00 04/17/19 21:07 1 CAP Loperamide HCl (Imodium) 2 mg 1X ONCE 04/15/19 23:00 04/15/19 23:01 DC 04/15/19 22:55 2 MG Meropenem 500 mg/ Sodium Chloride 50 ml @ 100 mls/hr DAILY 04/14/19 11:00 04/17/19 08:02 100 MLS/HR Metronidazole (Metrogel) 1 amy HS 04/17/19 21:00 04/17/19 21:07 DC 04/17/19 15:14 1 AMY Ondansetron HCl (Zofran) 4 mg PRN Q6HRS PRN 04/13/19 20:30 Piperacillin Sod/ Tazobactam Sod (Zosyn Per Pharmacy) 1 each PRN DAILY PRN 04/13/19 20:30 04/14/19 10:36 DC Piperacillin Sod/ Tazobactam Sod 2.25 gm/Sodium Chloride 50 ml @ 100 mls/hr Q8HRS 04/13/19 22:30 04/14/19 10:36 DC 04/14/19 05:39 100 MLS/HR Sodium Chloride 1,000 ml @ 400 mls/hr Q2H30M PRN 04/18/19 07:52 04/18/19 19:51 Temazepam (Restoril) 7.5 mg PRN QHS PRN 04/13/19 20:30 Vancomycin HCl (Vanco Per Pharmacy) 1 each PRN DAILY PRN 04/13/19 20:30 04/17/19 11:14 1 EACH Vancomycin HCl 1.5 gm/Sodium Chloride 500 ml @ 250 mls/hr 1X ONCE 04/13/19 19:45 04/13/19 21:44 DC 04/13/19 20:06 250 MLS/HR Vancomycin HCl 500 mg/Sodium Chloride 100 ml @ 100 mls/hr QMWF 04/16/19 16:00 04/16/19 15:34 100 MLS/HR Vitamin B Complex/ Vitamin C (Funmi-Hannah) 1 tab DAILY 04/14/19 09:00 04/17/19 08:02 1 TAB Lab Laboratory Tests Test 04/17/19 11:29 04/17/19 16:28 04/17/19 21:09 04/18/19 03:45 Glucose (Fingerstick) 127 mg/dL (70-99) 152 mg/dL (70-99) 141 mg/dL (70-99) White Blood Count 6.9 x10^3/uL (4.0-11.0) Red Blood Count 3.43 x10^6/uL (3.50-5.40) Hemoglobin 11.5 g/dL (12.0-15.5) Hematocrit 34.8 % (36.0-47.0) Mean Corpuscular Volume 102 fL (79-100) Mean Corpuscular Hemoglobin 34 pg (25-35) Mean Corpuscular Hemoglobin Concent 33 g/dL (31-37) Red Cell Distribution Width 15.7 % (11.5-14.5) Platelet Count 153 x10^3/uL (140-400) Neutrophils (%) (Auto) 62 % (31-73) Lymphocytes (%) (Auto) 25 % (24-48) Monocytes (%) (Auto) 9 % (0-9) Eosinophils (%) (Auto) 3 % (0-3) Basophils (%) (Auto) 1 % (0-3) Neutrophils # (Auto) 4.3 x10^3/uL (1.8-7.7) Lymphocytes # (Auto) 1.7 x10^3/uL (1.0-4.8) Monocytes # (Auto) 0.6 x10^3/uL (0.0-1.1) Eosinophils # (Auto) 0.2 x10^3/uL (0.0-0.7) Basophils # (Auto) 0.1 x10^3/uL (0.0-0.2) Sodium Level 138 mmol/L (136-145) Potassium Level 4.5 mmol/L (3.5-5.1) Chloride Level 100 mmol/L (98-107) Carbon Dioxide Level 27 mmol/L (21-32) Anion Gap 11 (6-14) Blood Urea Nitrogen 39 mg/dL (7-20) Creatinine 6.8 mg/dL (0.6-1.0) Estimated GFR (Cockcroft-Gault) 5.9 BUN/Creatinine Ratio 6 (6-20) Glucose Level 164 mg/dL (70-99) Calcium Level 8.8 mg/dL (8.5-10.1) Total Bilirubin 0.3 mg/dL (0.2-1.0) Aspartate Amino Transf (AST/SGOT) 13 U/L (15-37) Alanine Aminotransferase (ALT/SGPT) 9 U/L (14-59) Alkaline Phosphatase 165 U/L (46-116) Total Protein 7.5 g/dL (6.4-8.2) Albumin 2.6 g/dL (3.4-5.0) Albumin/Globulin Ratio 0.5 (1.0-1.7) Test 04/18/19 07:16 Glucose (Fingerstick) 145 mg/dL (70-99) Results All relevant outside records, renal labs, imaging studies, telemetry/EKG's were reviewed. LUCIO TORRES MD Apr 18, 2019 09:52
--- NOTE | 2019-04-18 10:20 | PDOC ---
PROGRESS NOTES Chief Complaint Chief Complaint discharge dx Left plantar heel wound ruled out for osteo on mri , 04/16 No signal changes of osteomyelitis throughout the imaged foot. Soft tissue thickening about the great toe MTP joint without visualized cutaneous defect, drainable fluid collection or sinus tract. Hallux valgus deformity and advanced degenerative changes across the great toe MTP joint and scattered less pronounced degenerative changes elsewhere. No acute fracture. ESRD on HD, compliant AOCD HTN, CABG chronic stable DM 2 with good control Diabetic ulcer left foot On Abx per ID iv Vanc and meropenem d/c augmentin and doxycycline on d/c 04/17 NOT HAPPY WITH RENAL DIET 38 min pt exam, chart review, > 50% of time spent with exam, chart review, pt care coordination History of Present Illness History of Present Illness cont the IV abx, ID following MRI ordered for osteo eval of foot Wound care following SSI Vitals Vitals Vital Signs Date Time Temp Pulse Resp B/P (MAP) Pulse Ox O2 Delivery O2 Flow Rate FiO2 04/18/19 07:00 97.8 87 18 130/53 (78) 97 Room Air 97.8 Physical Exam Physical Exam GENERAL: Propped up in bed, alert, in no apparent distress. HEENT: Pupils are equally round and reactive. Normal conjunctivae. Oropharynx is pink and moist. NECK: Supple. LUNGS: Clear to auscultation. HEART: S1 and S2. ABDOMEN: Soft and nontender with bowel sounds present. EXTREMITIES: No gross edema or cyanosis. Distal pulse is palpable. She has a plantar callus with an adjacent ruptured blister along with some maceration between the toes. There is no redness or drainage. Nontender. SKIN: Warm to touch. No signs of rash. NEUROLOGIC: Alert and oriented x 3. General: Alert, Oriented X3, Cooperative, No acute distress Heart: Regular rate, Normal S1, Normal S2 Lungs: Clear Abdomen: Normal bowel sounds, Soft, No tenderness Extremities: No clubbing, No cyanosis Skin: No breakdown Labs LABS PATIENT: BRYANT LOCKHART ACCT: [id number] LOC: [address] [place] [address] U: [id number] AGE/SX: 78/F ROOM: 408 RE04/13/[address]: CHLOE SCHAFER MD : [id number] BED: 1 DIS: STATUS: ADM IN TLOC: SPEC #: [id number] DORIS: 04/14/19 STATUS: RES REQ #: [id number] RECD: 04/14/[address] [facility] [address]: RICHARD VYAS APRN SOURCE: BLOOD ENTR: 04/13/[address]: ANA CRISTINA العلي MD SPDC: LISA CALHOUN VENU S MD ORDERED: BCULT ------- ----- Procedure Result BLOOD CULTURE Preliminary NO GROWTH AFTER 4 DAYS Laboratory Tests Test 04/17/19 11:29 04/17/19 16:28 04/17/19 21:09 04/18/19 03:45 Glucose (Fingerstick) 127 mg/dL (70-99) 152 mg/dL (70-99) 141 mg/dL (70-99) White Blood Count 6.9 x10^3/uL (4.0-11.0) Red Blood Count 3.43 x10^6/uL (3.50-5.40) Hemoglobin 11.5 g/dL (12.0-15.5) Hematocrit 34.8 % (36.0-47.0) Mean Corpuscular Volume 102 fL (79-100) Mean Corpuscular Hemoglobin 34 pg (25-35) Mean Corpuscular Hemoglobin Concent 33 g/dL (31-37) Red Cell Distribution Width 15.7 % (11.5-14.5) Platelet Count 153 x10^3/uL (140-400) Neutrophils (%) (Auto) 62 % (31-73) Lymphocytes (%) (Auto) 25 % (24-48) Monocytes (%) (Auto) 9 % (0-9) Eosinophils (%) (Auto) 3 % (0-3) Basophils (%) (Auto) 1 % (0-3) Neutrophils # (Auto) 4.3 x10^3/uL (1.8-7.7) Lymphocytes # (Auto) 1.7 x10^3/uL (1.0-4.8) Monocytes # (Auto) 0.6 x10^3/uL (0.0-1.1) Eosinophils # (Auto) 0.2 x10^3/uL (0.0-0.7) Basophils # (Auto) 0.1 x10^3/uL (0.0-0.2) Sodium Level 138 mmol/L (136-145) Potassium Level 4.5 mmol/L (3.5-5.1) Chloride Level 100 mmol/L (98-107) Carbon Dioxide Level 27 mmol/L (21-32) Anion Gap 11 (6-14) Blood Urea Nitrogen 39 mg/dL (7-20) Creatinine 6.8 mg/dL (0.6-1.0) Estimated GFR (Cockcroft-Gault) 5.9 BUN/Creatinine Ratio 6 (6-20) Glucose Level 164 mg/dL (70-99) Calcium Level 8.8 mg/dL (8.5-10.1) Total Bilirubin 0.3 mg/dL (0.2-1.0) Aspartate Amino Transf (AST/SGOT) 13 U/L (15-37) Alanine Aminotransferase (ALT/SGPT) 9 U/L (14-59) Alkaline Phosphatase 165 U/L (46-116) Total Protein 7.5 g/dL (6.4-8.2) Albumin 2.6 g/dL (3.4-5.0) Albumin/Globulin Ratio 0.5 (1.0-1.7) Test 04/18/19 07:16 Glucose (Fingerstick) 145 mg/dL (70-99) Assessment and Plan Assessmemt and Plan Problems Medical Problems: (1) DM2 (diabetes mellitus, type 2) Status: Chronic (2) HTN (hypertension) Status: Chronic Comment Review of Relevant I have reviewed the following items anastasiya (where applicable) has been applied. Labs Laboratory Tests Test 04/16/19 16:56 04/16/19 20:45 04/17/19 05:00 04/17/19 07:17 Glucose (Fingerstick) 172 mg/dL (70-99) 126 mg/dL (70-99) 154 mg/dL (70-99) White Blood Count 6.1 x10^3/uL (4.0-11.0) Red Blood Count 3.48 x10^6/uL (3.50-5.40) Hemoglobin 11.6 g/dL (12.0-15.5) Hematocrit 35.3 % (36.0-47.0) Mean Corpuscular Volume 102 fL (79-100) Mean Corpuscular Hemoglobin 34 pg (25-35) Mean Corpuscular Hemoglobin Concent 33 g/dL (31-37) Red Cell Distribution Width 16.0 % (11.5-14.5) Platelet Count 141 x10^3/uL (140-400) Neutrophils (%) (Auto) 59 % (31-73) Lymphocytes (%) (Auto) 28 % (24-48) Monocytes (%) (Auto) 10 % (0-9) Eosinophils (%) (Auto) 3 % (0-3) Basophils (%) (Auto) 1 % (0-3) Neutrophils # (Auto) 3.6 x10^3/uL (1.8-7.7) Lymphocytes # (Auto) 1.7 x10^3/uL (1.0-4.8) Monocytes # (Auto) 0.6 x10^3/uL (0.0-1.1) Eosinophils # (Auto) 0.2 x10^3/uL (0.0-0.7) Basophils # (Auto) 0.0 x10^3/uL (0.0-0.2) Sodium Level 141 mmol/L (136-145) Potassium Level 4.4 mmol/L (3.5-5.1) Chloride Level 102 mmol/L (98-107) Carbon Dioxide Level 30 mmol/L (21-32) Anion Gap 9 (6-14) Blood Urea Nitrogen 29 mg/dL (7-20) Creatinine 5.6 mg/dL (0.6-1.0) Estimated GFR (Cockcroft-Gault) 7.4 Glucose Level 183 mg/dL (70-99) Calcium Level 8.5 mg/dL (8.5-10.1) Phosphorus Level 5.5 mg/dL (2.6-4.7) Albumin 2.6 g/dL (3.4-5.0) Test 04/17/19 11:29 04/17/19 16:28 04/17/19 21:09 04/18/19 03:45 Glucose (Fingerstick) 127 mg/dL (70-99) 152 mg/dL (70-99) 141 mg/dL (70-99) White Blood Count 6.9 x10^3/uL (4.0-11.0) Red Blood Count 3.43 x10^6/uL (3.50-5.40) Hemoglobin 11.5 g/dL (12.0-15.5) Hematocrit 34.8 % (36.0-47.0) Mean Corpuscular Volume 102 fL (79-100) Mean Corpuscular Hemoglobin 34 pg (25-35) Mean Corpuscular Hemoglobin Concent 33 g/dL (31-37) Red Cell Distribution Width 15.7 % (11.5-14.5) Platelet Count 153 x10^3/uL (140-400) Neutrophils (%) (Auto) 62 % (31-73) Lymphocytes (%) (Auto) 25 % (24-48) Monocytes (%) (Auto) 9 % (0-9) Eosinophils (%) (Auto) 3 % (0-3) Basophils (%) (Auto) 1 % (0-3) Neutrophils # (Auto) 4.3 x10^3/uL (1.8-7.7) Lymphocytes # (Auto) 1.7 x10^3/uL (1.0-4.8) Monocytes # (Auto) 0.6 x10^3/uL (0.0-1.1) Eosinophils # (Auto) 0.2 x10^3/uL (0.0-0.7) Basophils # (Auto) 0.1 x10^3/uL (0.0-0.2) Sodium Level 138 mmol/L (136-145) Potassium Level 4.5 mmol/L (3.5-5.1) Chloride Level 100 mmol/L (98-107) Carbon Dioxide Level 27 mmol/L (21-32) Anion Gap 11 (6-14) Blood Urea Nitrogen 39 mg/dL (7-20) Creatinine 6.8 mg/dL (0.6-1.0) Estimated GFR (Cockcroft-Gault) 5.9 BUN/Creatinine Ratio 6 (6-20) Glucose Level 164 mg/dL (70-99) Calcium Level 8.8 mg/dL (8.5-10.1) Total Bilirubin 0.3 mg/dL (0.2-1.0) Aspartate Amino Transf (AST/SGOT) 13 U/L (15-37) Alanine Aminotransferase (ALT/SGPT) 9 U/L (14-59) Alkaline Phosphatase 165 U/L (46-116) Total Protein 7.5 g/dL (6.4-8.2) Albumin 2.6 g/dL (3.4-5.0) Albumin/Globulin Ratio 0.5 (1.0-1.7) Test 04/18/19 07:16 Glucose (Fingerstick) 145 mg/dL (70-99) Laboratory Tests Test 04/17/19 11:29 04/17/19 16:28 04/17/19 21:09 04/18/19 03:45 Glucose (Fingerstick) 127 mg/dL (70-99) 152 mg/dL (70-99) 141 mg/dL (70-99) White Blood Count 6.9 x10^3/uL (4.0-11.0) Red Blood Count 3.43 x10^6/uL (3.50-5.40) Hemoglobin 11.5 g/dL (12.0-15.5) Hematocrit 34.8 % (36.0-47.0) Mean Corpuscular Volume 102 fL (79-100) Mean Corpuscular Hemoglobin 34 pg (25-35) Mean Corpuscular Hemoglobin Concent 33 g/dL (31-37) Red Cell Distribution Width 15.7 % (11.5-14.5) Platelet Count 153 x10^3/uL (140-400) Neutrophils (%) (Auto) 62 % (31-73) Lymphocytes (%) (Auto) 25 % (24-48) Monocytes (%) (Auto) 9 % (0-9) Eosinophils (%) (Auto) 3 % (0-3) Basophils (%) (Auto) 1 % (0-3) Neutrophils # (Auto) 4.3 x10^3/uL (1.8-7.7) Lymphocytes # (Auto) 1.7 x10^3/uL (1.0-4.8) Monocytes # (Auto) 0.6 x10^3/uL (0.0-1.1) Eosinophils # (Auto) 0.2 x10^3/uL (0.0-0.7) Basophils # (Auto) 0.1 x10^3/uL (0.0-0.2) Sodium Level 138 mmol/L (136-145) Potassium Level 4.5 mmol/L (3.5-5.1) Chloride Level 100 mmol/L (98-107) Carbon Dioxide Level 27 mmol/L (21-32) Anion Gap 11 (6-14) Blood Urea Nitrogen 39 mg/dL (7-20) Creatinine 6.8 mg/dL (0.6-1.0) Estimated GFR (Cockcroft-Gault) 5.9 BUN/Creatinine Ratio 6 (6-20) Glucose Level 164 mg/dL (70-99) Calcium Level 8.8 mg/dL (8.5-10.1) Total Bilirubin 0.3 mg/dL (0.2-1.0) Aspartate Amino Transf (AST/SGOT) 13 U/L (15-37) Alanine Aminotransferase (ALT/SGPT) 9 U/L (14-59) Alkaline Phosphatase 165 U/L (46-116) Total Protein 7.5 g/dL (6.4-8.2) Albumin 2.6 g/dL (3.4-5.0) Albumin/Globulin Ratio 0.5 (1.0-1.7) Test 04/18/19 07:16 Glucose (Fingerstick) 145 mg/dL (70-99) Microbiology 04/14/19 Blood Culture - Preliminary, Resulted NO GROWTH AFTER 4 DAYS Medications Current Medications Vancomycin HCl 1.5 gm/Sodium Chloride 500 ml @ 250 mls/hr 1X ONCE IV Last administered on 04/13/19at 20:06; Start 04/13/19 at 19:45; Stop 04/13/19 at 21:44; Status DC Ceftriaxone Sodium (Rocephin) 2 gm 1X ONCE IVP Last administered on 04/13/19at 20:06; Start 04/13/19 at 19:45; Stop 04/13/19 at 19:46; Status DC Ondansetron HCl (Zofran) 4 mg PRN Q8HRS PRN IV NAUSEA/VOMITING Last administered on 04/13/19at 20:19; Start 04/13/19 at 19:45; Stop 04/13/19 at 20:25; Status DC Fentanyl Citrate (Fentanyl 2ml Vial) 50 mcg PRN Q1HR PRN IV PAIN; Start 04/13/19 at 19:45; Stop 04/13/19 at 20:25; Status DC Acetaminophen (Tylenol) 650 mg PRN Q4HRS PRN PO FEVER; Start 04/13/19 at 19:45; Stop 04/14/19 at 19:44; Status DC Fentanyl Citrate (Fentanyl 2ml Vial) 50 mcg PRN Q2HR PRN IV PAIN; Start 04/13/19 at 20:30 Ondansetron HCl (Zofran) 4 mg PRN Q6HRS PRN IV NAUSEA/VOMITING; Start 04/13/19 at 20:30 Insulin Human Lispro (HumaLOG) 0-9 UNITS TIDWMEALS SQ Last administered on 04/16/19at 17:31; Start 04/14/19 at 08:00 Dextrose (Dextrose 50%-Water Syringe) 12.5 gm PRN Q15MIN PRN IV SEE COMMENTS; Start 04/13/19 at 20:30 Dextrose 250 ml PRN Q15MIN PRN IV SEE COMMENTS; Start 04/13/19 at 20:30 Vancomycin HCl (Vanco Per Pharmacy) 1 each PRN DAILY PRN MC SEE COMMENTS Last administered on 04/17/19at 11:14; Start 04/13/19 at 20:30 Piperacillin Sod/ Tazobactam Sod (Zosyn Per Pharmacy) 1 each PRN DAILY PRN MC SEE COMMENTS; Start 04/13/19 at 20:30; Stop 04/14/19 at 10:36; Status DC Clonidine HCl (Catapres) 0.1 mg PRN Q1HR PRN PO HYPERTENSION; Start 04/13/19 at 20:30 Acetaminophen/ Hydrocodone Bitart (Lortab 5/325) 1 tab PRN Q4HRS PRN PO MODERA TE - SEVERE PAIN; Start 04/13/19 at 20:30 Acetaminophen (Tylenol) 500 mg PRN Q6HRS PRN PO MILD PAIN / TEMP; Start 04/13/19 at 20:30 Temazepam (Restoril) 7.5 mg PRN QHS PRN PO INSOMNIA; Start 04/13/19 at 20:30 Aspirin (Ecotrin) 81 mg DAILY08 PO Last administered on 04/17/19at 08:02; Start 04/14/19 at 08:00 Estradiol (Estrace) 1 scotty 3X/WEEK VG Last administered on 04/16/19at 15:34; Start 04/16/19 at 09:00 Insulin Glargine (Lantus) 6 units QHS SQ Last administered on 04/17/19at 21:07; Start 04/13/19 at 21:00 Calcium Acetate (Phoslo) 1,334 mg TIDWMEALS PO Last administered on 04/17/19at 17:31; Start 04/14/19 at 08:00 Insulin Human Lispro (HumaLOG) 6 units TIDWMEALS SQ Last administered on 04/17/19at 17:31; Start 04/14/19 at 08:00 Vitamin B Complex/ Vitamin C (Funmi-Hannah) 1 tab DAILY PO Last administered on 04/17/19at 08:02; Start 04/14/19 at 09:00 Piperacillin Sod/ Tazobactam Sod 2.25 gm/Sodium Chloride 50 ml @ 100 mls/hr Q8HRS IV Last administered on 04/14/19at 05:39; Start 04/13/19 at 22:30; Stop 04/14/19 at 10:36; Status DC Meropenem 500 mg/ Sodium Chloride 50 ml @ 100 mls/hr DAILY IV Last administered on 04/17/19at 08:02; Start 04/14/19 at 11:00 Lactobacillus Rhamnosus (Culturelle) 1 cap BID PO Last administered on 04/17/19at 21:07; Start 04/14/19 at 21:00 Vancomycin HCl 500 mg/Sodium Chloride 100 ml @ 100 mls/hr QMWF IV Last administered on 04/16/19at 15:34; Start 04/16/19 at 16:00 Diphenoxylate HCl/ Atropine (Lomotil) 2 tab 1X ONCE PO ; Start 04/15/19 at 23:00; Stop 04/15/19 at 23:01; Status Cancel Loperamide HCl (Imodium) 2 mg 1X ONCE PO Last administered on 04/15/19at 22:55; Start 04/15/19 at 23:00; Stop 04/15/19 at 23:01; Status DC Sodium Chloride 1,000 ml @ 1,000 mls/hr Q1H PRN IV hypotension; Start 04/16/19 at 09:05; Stop 04/16/19 at 15:04; Status DC Diphenhydramine HCl (Benadryl) 25 mg 1X PRN PRN IV ITCHING; Start 04/16/19 at 09:15; Stop 04/17/19 at 09:14; Status DC Diphenhydramine HCl (Benadryl) 25 mg 1X PRN PRN IV ITCHING; Start 04/16/19 at 09:15; Stop 04/17/19 at 09:14; Status DC Sodium Chloride 1,000 ml @ 400 mls/hr Q2H30M PRN IV PATENCY; Start 04/16/19 at 09:05; Stop 04/16/19 at 21:04; Status DC Info (PHARMACY MONITORING -- do not chart) 1 each PRN DAILY PRN MC SEE COMMENTS; Start 04/16/19 at 09:15; Stop 04/18/19 at 08:01; Status DC Fluconazole (Diflucan) 150 mg 1X ONCE PO Last administered on 04/17/19at 15:14; Start 04/17/19 at 14:30; Stop 04/17/19 at 14:31; Status DC Metronidazole (Metrogel) 1 scotty HS VG Last administered on 04/17/19at 15:14; Start 04/17/19 at 21:00; Stop 04/17/19 at 21:07; Status DC Sodium Chloride 1,000 ml @ 1,000 mls/hr Q1H PRN IV hypotension; Start 04/18/19 at 07:52; Stop 04/18/19 at 13:51 Albumin Human 200 ml @ 200 mls/hr 1X PRN PRN IV Hypotension; Start 04/18/19 at 08:00; Stop 04/18/19 at 13:59 Sodium Chloride 1,000 ml @ 400 mls/hr Q2H30M PRN IV PATENCY; Start 04/18/19 at 07:52; Stop 04/18/19 at 19:51 Info (PHARMACY MONITORING -- do not chart) 1 each PRN DAILY PRN MC SEE COMMENTS; Start 04/18/19 at 08:00 Info (PHARMACY MONITORING -- do not chart) 1 each PRN DAILY PRN MC SEE COMMENTS; Start 04/18/19 at 08:00; Status UNV Active Scripts Active Keflex (Cephalexin) 500 Mg Capsule 1,000 Mg PO BID 7 Days Estrace (Estradiol) 42.5 Gm Cream.appl 1 Scotty VG 3X/WEEK 14 Days Reported Funmi-Hannah Rx Tablet (Vit B Cmplx 3/Fa/Vit C/Biotin) 1 Each Tablet 1 Each PO DAILY Amox Tr-K Clv 875-125 Mg Tab (Amoxicillin/Potassium Clav) 1 Each Tablet 1 Tab PO BID Novolog (Insulin Aspart) 100 Unit/1 Ml Cartridge 6 Unit SQ TIDAC Lantus Solostar (Insulin Glargine,Hum.rec.anlog) 100 Unit/1 Ml Insuln.pen 6 Unit SQ QHS [regrenex] TOP DAILY PRN Calcium Acetate 667 Mg Tablet 2 Cap PO TIDAC Aspir 81 (Aspirin) 81 Mg Tablet. 1 Tab PO DAILY08 Vitals/I & O Vital Sign - Last 24 Hours 04/17/19 04/17/19 04/17/19 04/17/19 11:00 15:00 19:15 20:00 Temp 98.4 98.2 98.4 98.4 98.2 98.4 Pulse 87 71 89 Resp 16 16 18 B/P (MAP) 149/63 (91) 138/59 (85) 130/52 (78) Pulse Ox 92 95 96 O2 Delivery Room Air Room Air Room Air Room Air 04/17/19 04/18/19 04/18/19 23:21 03:14 07:00 Temp 99.0 98.5 97.8 99.0 98.5 97.8 Pulse 87 67 87 Resp 18 18 18 B/P (MAP) 117/53 (74) 97/41 (59) 130/53 (78) Pulse Ox 96 97 97 O2 Delivery Room Air Room Air Room Air Intake and Output 04/17/19 04/17/19 04/18/19 15:00 23:00 07:00 Intake Total 240 ml Balance 240 ml FLORI DAVIES MD Apr 18, 2019 10:20
--- NOTE | 2019-04-18 11:28 | PDOC ---
Infectious Disease Note Subjective: Subjective Feels good Denies pain/F/C/S/N/V/D eager for dc home ROS: ROS Negative otherwise. Vital Signs: Vital Signs Vital Signs Date Time Temp Pulse Resp B/P (MAP) Pulse Ox O2 Delivery O2 Flow Rate FiO2 04/18/19 07:00 97.8 87 18 130/53 (78) 97 Room Air 97.8 Physical Exam: PHYSICAL EXAM GENERAL: Propped up in bed, alert, in no apparent distress. HEENT: Pupils are equally round and reactive. Normal conjunctivae. Oropharynx is pink and moist. NECK: Supple. LUNGS: Clear to auscultation. HEART: S1 and S2. ABDOMEN: Soft and nontender with bowel sounds present. EXTREMITIES: No gross edema or cyanosis. Distal pulse is palpable. She has a plantar callus with an adjacent ruptured blister along with some maceration between the toes. There is no redness or drainage. Nontender. SKIN: Warm to touch. No signs of rash. NEUROLOGIC: Alert and oriented x 3. Medications: Inpatient Meds: Current Medications Medications (Trade) Dose Ordered Sig/Claudette Start Time Stop Time Status Last Admin Dose Admin Acetaminophen (Tylenol) 500 mg PRN Q6HRS PRN 04/13/19 20:30 Acetaminophen/ Hydrocodone Bitart (Lortab 5/325) 1 tab PRN Q4HRS PRN 04/13/19 20:30 Albumin Human 200 ml @ 200 mls/hr 1X PRN PRN 04/18/19 08:00 04/18/19 13:59 Aspirin (Ecotrin) 81 mg DAILY08 04/14/19 08:00 04/17/19 08:02 81 MG Calcium Acetate (Phoslo) 1,334 mg TIDWMEALS 04/14/19 08:00 04/17/19 17:31 1,334 MG Ceftriaxone Sodium (Rocephin) 2 gm 1X ONCE 04/13/19 19:45 04/13/19 19:46 DC 04/13/19 20:06 2 GM Clonidine HCl (Catapres) 0.1 mg PRN Q1HR PRN 04/13/19 20:30 Dextrose 250 ml PRN Q15MIN PRN 04/13/19 20:30 Dextrose (Dextrose 50%-Water Syringe) 12.5 gm PRN Q15MIN PRN 04/13/19 20:30 Diphenhydramine HCl (Benadryl) 25 mg 1X PRN PRN 04/16/19 09:15 04/17/19 09:14 DC Diphenoxylate HCl/ Atropine (Lomotil) 2 tab 1X ONCE 04/15/19 23:00 04/15/19 23:01 Cancel Estradiol (Estrace) 1 amy 3X/WEEK 04/16/19 09:00 04/16/19 15:34 1 AMY Fentanyl Citrate (Fentanyl 2ml Vial) 50 mcg PRN Q2HR PRN 04/13/19 20:30 Fluconazole (Diflucan) 150 mg 1X ONCE 04/17/19 14:30 04/17/19 14:31 DC 04/17/19 15:14 150 MG Info (PHARMACY MONITORING -- do not chart) 1 each PRN DAILY PRN 04/18/19 08:00 UNV Insulin Glargine (Lantus) 6 units QHS 04/13/19 21:00 04/17/19 21:07 6 UNITS Insulin Human Lispro (HumaLOG) 6 units TIDWMEALS 04/14/19 08:00 04/17/19 17:31 6 UNITS Lactobacillus Rhamnosus (Culturelle) 1 cap BID 04/14/19 21:00 04/17/19 21:07 1 CAP Loperamide HCl (Imodium) 2 mg 1X ONCE 04/15/19 23:00 04/15/19 23:01 DC 04/15/19 22:55 2 MG Meropenem 500 mg/ Sodium Chloride 50 ml @ 100 mls/hr DAILY 04/14/19 11:00 04/17/19 08:02 100 MLS/HR Metronidazole (Metrogel) 1 amy HS 04/17/19 21:00 04/17/19 21:07 DC 04/17/19 15:14 1 AMY Ondansetron HCl (Zofran) 4 mg PRN Q6HRS PRN 04/13/19 20:30 Piperacillin Sod/ Tazobactam Sod (Zosyn Per Pharmacy) 1 each PRN DAILY PRN 04/13/19 20:30 04/14/19 10:36 DC Piperacillin Sod/ Tazobactam Sod 2.25 gm/Sodium Chloride 50 ml @ 100 mls/hr Q8HRS 04/13/19 22:30 04/14/19 10:36 DC 04/14/19 05:39 100 MLS/HR Sodium Chloride 1,000 ml @ 400 mls/hr Q2H30M PRN 04/18/19 07:52 04/18/19 19:51 Temazepam (Restoril) 7.5 mg PRN QHS PRN 04/13/19 20:30 Vancomycin HCl (Vanco Per Pharmacy) 1 each PRN DAILY PRN 04/13/19 20:30 04/17/19 11:14 1 EACH Vancomycin HCl 1.5 gm/Sodium Chloride 500 ml @ 250 mls/hr 1X ONCE 04/13/19 19:45 04/13/19 21:44 DC 04/13/19 20:06 250 MLS/HR Vancomycin HCl 500 mg/Sodium Chloride 100 ml @ 100 mls/hr QMWF 04/16/19 16:00 04/16/19 15:34 100 MLS/HR Vitamin B Complex/ Vitamin C (Funmi-Hannah) 1 tab DAILY 04/14/19 09:00 04/17/19 08:02 1 TAB Labs: Lab Laboratory Tests Test 04/17/19 11:29 04/17/19 16:28 04/17/19 21:09 04/18/19 03:45 Glucose (Fingerstick) 127 mg/dL (70-99) 152 mg/dL (70-99) 141 mg/dL (70-99) White Blood Count 6.9 x10^3/uL (4.0-11.0) Red Blood Count 3.43 x10^6/uL (3.50-5.40) Hemoglobin 11.5 g/dL (12.0-15.5) Hematocrit 34.8 % (36.0-47.0) Mean Corpuscular Volume 102 fL (79-100) Mean Corpuscular Hemoglobin 34 pg (25-35) Mean Corpuscular Hemoglobin Concent 33 g/dL (31-37) Red Cell Distribution Width 15.7 % (11.5-14.5) Platelet Count 153 x10^3/uL (140-400) Neutrophils (%) (Auto) 62 % (31-73) Lymphocytes (%) (Auto) 25 % (24-48) Monocytes (%) (Auto) 9 % (0-9) Eosinophils (%) (Auto) 3 % (0-3) Basophils (%) (Auto) 1 % (0-3) Neutrophils # (Auto) 4.3 x10^3/uL (1.8-7.7) Lymphocytes # (Auto) 1.7 x10^3/uL (1.0-4.8) Monocytes # (Auto) 0.6 x10^3/uL (0.0-1.1) Eosinophils # (Auto) 0.2 x10^3/uL (0.0-0.7) Basophils # (Auto) 0.1 x10^3/uL (0.0-0.2) Sodium Level 138 mmol/L (136-145) Potassium Level 4.5 mmol/L (3.5-5.1) Chloride Level 100 mmol/L (98-107) Carbon Dioxide Level 27 mmol/L (21-32) Anion Gap 11 (6-14) Blood Urea Nitrogen 39 mg/dL (7-20) Creatinine 6.8 mg/dL (0.6-1.0) Estimated GFR (Cockcroft-Gault) 5.9 BUN/Creatinine Ratio 6 (6-20) Glucose Level 164 mg/dL (70-99) Calcium Level 8.8 mg/dL (8.5-10.1) Total Bilirubin 0.3 mg/dL (0.2-1.0) Aspartate Amino Transf (AST/SGOT) 13 U/L (15-37) Alanine Aminotransferase (ALT/SGPT) 9 U/L (14-59) Alkaline Phosphatase 165 U/L (46-116) Total Protein 7.5 g/dL (6.4-8.2) Albumin 2.6 g/dL (3.4-5.0) Albumin/Globulin Ratio 0.5 (1.0-1.7) Test 04/18/19 07:16 Glucose (Fingerstick) 145 mg/dL (70-99) Micro MRI LT FOOT IMPRESSION: 1. No signal changes of osteomyelitis throughout the imaged foot. Soft tissue thickening about the great toe MTP joint without visualized cutaneous defect, drainable fluid collection or sinus tract. 2. Hallux valgus deformity and advanced degenerative changes across the great toe MTP joint and scattered less pronounced degenerative changes elsewhere. No acute fracture. Objective: Assessment: Diabetic ulcer left foot ESR 86 MRI neg for OM callus on foot for a long tiime CKD on hemodialysis via AV fistula h/o Enterobacter wound infection h/o ESBL in urine Plan: Plan of Care dc iv vanc and merrem local wound care dc iv vanc and merrem augmentin and doxycycline MARIA ESTHER العلي MD Apr 18, 2019 11:27
[2019-04-18] MEDS: VANCOMYCIN PER PHARMACY MC PRN (11:52)
[2019-04-18] MEDS: CALCIUM ACETATE 667 MG CAPSULE PO SCH ×2 (12:00→14:01)
--- NOTE | 2019-04-18 13:50 | NUR ---
Report given from margaret Anderson RN, 114/50, 98.1 T, and 0.5kg taken off.
[2019-04-18] MEDS ORDERED: DOXYCYCLINE HYCLATE 100 MG TABLET PO SCH (14:00)
[2019-04-18] MEDS ORDERED: AMOXICILLIN/K CLAV 500/125MG TABLET. PO SCH (14:00)
[2019-04-18] MEDS: ASPIRIN ENTERIC COATED 81 MG TABLET.DR. PO SCH (14:01)
[2019-04-18] MEDS: LACTOBACILLUS RHAMNOSUS GG 1 CAPSULE. PO SCH (14:01)
[2019-04-18] MEDS: FOLIC/VIT B COMP W-C (RENAL) TABLET. PO SCH (14:01)
[2019-04-18 14:53] VITALS: BP 135/66
--- NOTE | 2019-04-18 15:20 | PDOC3 ---
Discharge Summary Date of Admission: Apr 13, 2019 Date of Discharge: Apr 18, 2019 Follow-Up: 1-2 days Admitting Diagnosis comment: discharge dx Left plantar heel wound ruled out for osteo on mri , 04/16 No signal changes of osteomyelitis throughout the imaged foot. Soft tissue thickening about the great toe MTP joint without visualized cutaneous defect, drainable fluid collection or sinus tract. Hallux valgus deformity and advanced degenerative changes across the great toe MTP joint and scattered less pronounced degenerative changes elsewhere. No acute fracture. ESRD on HD, compliant AOCD HTN, CABG chronic stable DM 2 with good control Diabetic ulcer left foot On Abx per ID iv Vanc and meropenem d/c augmentin and doxycycline on d/c 04/17 NOT HAPPY WITH RENAL DIET 38 min pt exam, chart review, > 50% of time spent with exam, chart review, pt care coordination History of Present Illness History of Present Illness cont the IV abx, ID following MRI ordered for osteo eval of foot Wound care following SSI Vitals Vitals Vital Signs Date Time Temp Pulse Resp B/P (MAP) Pulse Ox O2 Delivery O2 Flow Rate FiO2 04/18/19 07:00 97.8 87 18 130/53 (78) 97 Room Air 97.8 Physical Exam Physical Exam GENERAL: Propped up in bed, alert, in no apparent distress. HEENT: Pupils are equally round and reactive. Normal conjunctivae. Oropharynx is pink and moist. NECK: Supple. LUNGS: Clear to auscultation. HEART: S1 and S2. ABDOMEN: Soft and nontender with bowel sounds present. EXTREMITIES: No gross edema or cyanosis. Distal pulse is palpable. She has a plantar callus with an adjacent ruptured blister along with some maceration between the toes. There is no redness or drainage. Nontender. SKIN: Warm to touch. No signs of rash. NEUROLOGIC: Alert and oriented x 3. General: Alert, Oriented X3, Cooperative, No acute distress Heart: Regular rate, Normal S1, Normal S2 Lungs: Clear Abdomen: Normal bowel sounds, Soft, No tenderness Extremities: No clubbing, No cyanosis Skin: No breakdown Labs LABS PATIENT: BRYANT LOCKHART ACCT: [id number] LOC: [address] [place] [address] U: [id number] AGE/SX: 78/F ROOM: 408 RE04/13/[address]: CHLOE SCHAFER MD : [id number] BED: 1 DIS: STATUS: ADM IN TLOC: SPEC #: [id number] DORIS: 04/14/19 STATUS: RES REQ #: [id number] RECD: 04/14/[address]: RICHARD VYAS APRN SOURCE: BLOOD ENTR: 04/13/[address] [facility] [address]: ANA CRISTINA العلي MD SPDC: LISA CALHOUN VENU S MD ORDERED: BCULT Procedure Result BLOOD CULTURE Preliminary NO GROWTH AFTER 4 DAYS FINAL DIAGNOSIS Problems Medical Problems: (1) DM2 (diabetes mellitus, type 2) Status: Chronic (2) HTN (hypertension) Status: Chronic Brief Hospital Course Ms. Lockhart is a 78 old [sex] who presented with [foot infection ] CONDITION AT DISCHARGE: Improved Discharge Medications Current Medications Vancomycin HCl 1.5 gm/Sodium Chloride 500 ml @ 250 mls/hr 1X ONCE IV Last administered on 04/13/19at 20:06; Start 04/13/19 at 19:45; Stop 04/13/19 at 21:44; Status DC Ceftriaxone Sodium (Rocephin) 2 gm 1X ONCE IVP Last administered on 04/13/19at 20:06; Start 04/13/19 at 19:45; Stop 04/13/19 at 19:46; Status DC Ondansetron HCl (Zofran) 4 mg PRN Q8HRS PRN IV NAUSEA/VOMITING Last administered on 04/13/19at 20:19; Start 04/13/19 at 19:45; Stop 04/13/19 at 20:25; Status DC Fentanyl Citrate (Fentanyl 2ml Vial) 50 mcg PRN Q1HR PRN IV PAIN; Start 04/13/19 at 19:45; Stop 04/13/19 at 20:25; Status DC Acetaminophen (Tylenol) 650 mg PRN Q4HRS PRN PO FEVER; Start 04/13/19 at 19:45; Stop 04/14/19 at 19:44; Status DC Fentanyl Citrate (Fentanyl 2ml Vial) 50 mcg PRN Q2HR PRN IV PAIN; Start 04/13/19 at 20:30 Ondansetron HCl (Zofran) 4 mg PRN Q6HRS PRN IV NAUSEA/VOMITING; Start 04/13/19 at 20:30 Insulin Human Lispro (HumaLOG) 0-9 UNITS TIDWMEALS SQ Last administered on 04/18/19at 14:20; Start 04/14/19 at 08:00 Dextrose (Dextrose 50%-Water Syringe) 12.5 gm PRN Q15MIN PRN IV SEE COMMENTS; Start 04/13/19 at 20:30 Dextrose 250 ml PRN Q15MIN PRN IV SEE COMMENTS; Start 04/13/19 at 20:30 Vancomycin HCl (Vanco Per Pharmacy) 1 each PRN DAILY PRN MC SEE COMMENTS Last administered on 04/18/19at 11:52; Start 04/13/19 at 20:30; Stop 04/18/19 at 12:45; Status DC Piperacillin Sod/ Tazobactam Sod (Zosyn Per Pharmacy) 1 each PRN DAILY PRN MC SEE COMMENTS; Start 04/13/19 at 20:30; Stop 04/14/19 at 10:36; Status DC Clonidine HCl (Catapres) 0.1 mg PRN Q1HR PRN PO HYPERTENSION; Start 04/13/19 at 20:30 Acetaminophen/ Hydrocodone Bitart (Lortab 5/325) 1 tab PRN Q4HRS PRN PO MODERATE - SEVERE PAIN; Start 04/13/19 at 20:30 Acetaminophen (Tylenol) 500 mg PRN Q6HRS PRN PO MILD PAIN / TEMP; Start 04/13/19 at 20:30 Temazepam (Restoril) 7.5 mg PRN QHS PRN PO INSOMNIA; Start 04/13/19 at 20:30 Aspirin (Ecotrin) 81 mg DAILY08 PO Last administered on 04/18/19at 14:20; Start 04/14/19 at 08:00 Estradiol (Estrace) 1 scotty 3X/WEEK VG Last administered on 04/18/19at 14:20; Start 04/16/19 at 09:00 Insulin Glargine (Lantus) 6 units QHS SQ Last administered on 04/17/19at 21:07; Start 04/13/19 at 21:00 Calcium Acetate (Phoslo) 1,334 mg TIDWMEALS PO Last administered on 04/18/19at 14:20; Start 04/14/19 at 08:00 Insulin Human Lispro (HumaLOG) 6 units TIDWMEALS SQ Last administered on 04/17/19at 17:31; Start 04/14/19 at 08:00 Vitamin B Complex/ Vitamin C (Funmi-Hannah) 1 tab DAILY PO Last administered on 04/18/19at 14:20; Start 04/14/19 at 09:00 Piperacillin Sod/ Tazobactam Sod 2.25 gm/Sodium Chloride 50 ml @ 100 mls/hr Q8H RS IV Last administered on 04/14/19at 05:39; Start 04/13/19 at 22:30; Stop 04/14/19 at 10:36; Status DC Meropenem 500 mg/ Sodium Chloride 50 ml @ 100 mls/hr DAILY IV Last administered on 04/18/19at 12:22; Start 04/14/19 at 11:00; Stop 04/18/19 at 12:40; Status DC Lactobacillus Rhamnosus (Culturelle) 1 cap BID PO Last administered on 04/18/19at 14:20; Start 04/14/19 at 21:00 Vancomycin HCl 500 mg/Sodium Chloride 100 ml @ 100 mls/hr QMWF IV Last administered on 04/16/19at 15:34; Start 04/16/19 at 16:00; Stop 04/18/19 at 12:40; Status DC Diphenoxylate HCl/ Atropine (Lomotil) 2 tab 1X ONCE PO ; Start 04/15/19 at 23:00; Stop 04/15/19 at 23:01; Status Cancel Loperamide HCl (Imodium) 2 mg 1X ONCE PO Last administered on 04/15/19at 22:55; Start 04/15/19 at 23:00; Stop 04/15/19 at 23:01; Status DC Sodium Chloride 1,000 ml @ 1,000 mls/hr Q1H PRN IV hypotension; Start 04/16/19 at 09:05; Stop 04/16/19 at 15:04; Status DC Diphenhydramine HCl (Benadryl) 25 mg 1X PRN PRN IV ITCHING; Start 04/16/19 at 09:15; Stop 04/17/19 at 09:14; Status DC Diphenhydramine HCl (Benadryl) 25 mg 1X PRN PRN IV ITCHING; Start 04/16/19 at 09:15; Stop 04/17/19 at 09:14; Status DC Sodium Chloride 1,000 ml @ 400 mls/hr Q2H30M PRN IV PATENCY; Start 04/16/19 at 09:05; Stop 04/16/19 at 21:04; Status DC Info (PHARMACY MONITORING -- do not chart) 1 each PRN DAILY PRN MC SEE COMMENTS; Start 04/16/19 at 09:15; Stop 04/18/19 at 08:01; Status DC Fluconazole (Diflucan) 150 mg 1X ONCE PO Last administered on 04/17/19at 15:14; Start 04/17/19 at 14:30; Stop 04/17/19 at 14:31; Status DC Metronidazole (Metrogel) 1 scotty HS VG Last administered on 04/17/19at 15:14; Start 04/17/19 at 21:00; Stop 04/17/19 at 21:07; Status DC Sodium Chloride 1,000 ml @ 1,000 mls/hr Q1H PRN IV hypotension; Start 04/18/19 at 07:52; Stop 04/18/19 at 13:51; Status DC Albumin Human 200 ml @ 200 mls/hr 1X PRN PRN IV Hypotension; Start 04/18/19 at 08:00; Stop 04/18/19 at 13:59; Status DC Sodium Chloride 1,000 ml @ 400 mls/hr Q2H30M PRN IV PATENCY; Start 04/18/19 at 07:52; Stop 04/18/19 at 19:51 Info (PHARMACY MONITORING -- do not chart) 1 each PRN DAILY PRN MC SEE COMMENTS; Start 04/18/19 at 08:00 Info (PHARMACY MONITORING -- do not chart) 1 each PRN DAILY PRN MC SEE COMMENTS; Start 04/18/19 at 08:00; Status UNV Amoxicillin/ Clavulanate Potassium (Augmentin 500/ 125mg) 1 tab DAILY PO Last administered on 04/18/19at 14:20; Start 04/18/19 at 14:00 Doxycycline Hyclate (Vibra-Tab) 100 mg BID PO Last administered on 04/18/19at 14:20; Start 04/18/19 at 14:00 Active Scripts Active Keflex (Cephalexin) 500 Mg Capsule 1,000 Mg PO BID 7 Days Estrace (Estradiol) 42.5 Gm Cream.appl 1 Scotty VG 3X/WEEK 14 Days Reported Funmi-Hannah Rx Tablet (Vit B Cmplx 3/Fa/Vit C/Biotin) 1 Each Tablet 1 Each PO DAILY Amox Tr-K Clv 875-125 Mg Tab (Amoxicillin/Potassium Clav) 1 Each Tablet 1 Tab PO BID Novolog (Insulin Aspart) 100 Unit/1 Ml Cartridge 6 Unit SQ TIDAC Lantus Solostar (Insulin Glargine,Hum.rec.anlog) 100 Unit/1 Ml Insuln.pen 6 Unit SQ QHS [regrenex] TOP DAILY PRN Calcium Acetate 667 Mg Tablet 2 Cap PO TIDAC Aspir 81 (Aspirin) 81 Mg Tablet. 1 Tab PO DAILY08 Vital Signs Vital Signs Date Time Temp Pulse Resp B/P (MAP) Pulse Ox O2 Delivery O2 Flow Rate FiO2 04/18/19 14:53 98.4 99 18 135/66 (89) 96 Room Air 98.4 Labs Laboratory Tests Test 04/16/19 16:56 04/16/19 20:45 04/17/19 05:00 04/17/19 07:17 Glucose (Fingerstick) 172 mg/dL (70-99) 126 mg/dL (70-99) 154 mg/dL (70-99) White Blood Count 6.1 x10^3/uL (4.0-11.0) Red Blood Count 3.48 x10^6/uL (3.50-5.40) Hemoglobin 11.6 g/dL (12.0-15.5) Hematocrit 35.3 % (36.0-47.0) Mean Corpuscular Volume 102 fL (79-100) Mean Corpuscular Hemoglobin 34 pg (25-35) Mean Corpuscular Hemoglobin Concent 33 g/dL (31-37) Red Cell Distribution Width 16.0 % (11.5-14.5) Platelet Count 141 x10^3/uL (140-400) Neutrophils (%) (Auto) 59 % (31-73) Lymphocytes (%) (Auto) 28 % (24-48) Monocytes (%) (Auto) 10 % (0-9) Eosinophils (%) (Auto) 3 % (0-3) Basophils (%) (Auto) 1 % (0-3) Neutrophils # (Auto) 3.6 x10^3/uL (1.8-7.7) Lymphocytes # (Auto) 1.7 x10^3/uL (1.0-4.8) Monocytes # (Auto) 0.6 x10^3/uL (0.0-1.1) Eosinophils # (Auto) 0.2 x10^3/uL (0.0-0.7) Basophils # (Auto) 0.0 x10^3/uL (0.0-0.2) Sodium Level 141 mmol/L (136-145) Potassium Level 4.4 mmol/L (3.5-5.1) Chloride Level 102 mmol/L (98-107) Carbon Dioxide Level 30 mmol/L (21-32) Anion Gap 9 (6-14) Blood Urea Nitrogen 29 mg/dL (7-20) Creatinine 5.6 mg/dL (0.6-1.0) Estimated GFR (Cockcroft-Gault) 7.4 Glucose Level 183 mg/dL (70-99) Calcium Level 8.5 mg/dL (8.5-10.1) Phosphorus Level 5.5 mg/dL (2.6-4.7) Albumin 2.6 g/dL (3.4-5.0) Test 04/17/19 11:29 04/17/19 16:28 04/17/19 21:09 04/18/19 03:45 Glucose (Fingerstick) 127 mg/dL (70-99) 152 mg/dL (70-99) 141 mg/dL (70-99) White Blood Count 6.9 x10^3/uL (4.0-11.0) Red Blood Count 3.43 x10^6/uL (3.50-5.40) Hemoglobin 11.5 g/dL (12.0-15.5) Hematocrit 34.8 % (36.0-47.0) Mean Corpuscular Volume 102 fL (79-100) Mean Corpuscular Hemoglobin 34 pg (25-35) Mean Corpuscular Hemoglobin Concent 33 g/dL (31-37) Red Cell Distribution Width 15.7 % (11.5-14.5) Platelet Count 153 x10^3/uL (140-400) Neutrophils (%) (Auto) 62 % (31-73) Lymphocytes (%) (Auto) 25 % (24-48) Monocytes (%) (Auto) 9 % (0-9) Eosinophils (%) (Auto) 3 % (0-3) Basophils (%) (Auto) 1 % (0-3) Neutrophils # (Auto) 4.3 x10^3/uL (1.8-7.7) Lymphocytes # (Auto) 1.7 x10^3/uL (1.0-4.8) Monocytes # (Auto) 0.6 x10^3/uL (0.0-1.1) Eosinophils # (Auto) 0.2 x10^3/uL (0.0-0.7) Basophils # (Auto) 0.1 x10^3/uL (0.0-0.2) Sodium Level 138 mmol/L (136-145) Potassium Level 4.5 mmol/L (3.5-5.1) Chloride Level 100 mmol/L (98-107) Carbon Dioxide Level 27 mmol/L (21-32) Anion Gap 11 (6-14) Blood Urea Nitrogen 39 mg/dL (7-20) Creatinine 6.8 mg/dL (0.6-1.0) Estimated GFR (Cockcroft-Gault) 5.9 BUN/Creatinine Ratio 6 (6-20) Glucose Level 164 mg/dL (70-99) Calcium Level 8.8 mg/dL (8.5-10.1) Total Bilirubin 0.3 mg/dL (0.2-1.0) Aspartate Amino Transf (AST/SGOT) 13 U/L (15-37) Alanine Aminotransferase (ALT/SGPT) 9 U/L (14-59) Alkaline Phosphatase 165 U/L (46-116) Total Protein 7.5 g/dL (6.4-8.2) Albumin 2.6 g/dL (3.4-5.0) Albumin/Globulin Ratio 0.5 (1.0-1.7) Test 04/18/19 07:16 04/18/19 14:12 Glucose (Fingerstick) 145 mg/dL (70-99) 102 mg/dL (70-99) Laboratory Tests Test 04/17/19 16:28 04/17/19 21:09 04/18/19 03:45 04/18/19 07:16 Glucose (Fingerstick) 152 mg/dL (70-99) 141 mg/dL (70-99) 145 mg/dL (70-99) White Blood Count 6.9 x10^3/uL (4.0-11.0) Red Blood Count 3.43 x10^6/uL (3.50-5.40) Hemoglobin 11.5 g/dL (12.0-15.5) Hematocrit 34.8 % (36.0-47.0) Mean Corpuscular Volume 102 fL (79-100) Mean Corpuscular Hemoglobin 34 pg (25-35) Mean Corpuscular Hemoglobin Concent 33 g/dL (31-37) Red Cell Distribution Width 15.7 % (11.5-14.5) Platelet Count 153 x10^3/uL (140-400) Neutrophils (%) (Auto) 62 % (31-73) Lymphocytes (%) (Auto) 25 % (24-48) Monocytes (%) (Auto) 9 % (0-9) Eosinophils (%) (Auto) 3 % (0-3) Basophils (%) (Auto) 1 % (0-3) Neutrophils # (Auto) 4.3 x10^3/uL (1.8-7.7) Lymphocytes # (Auto) 1.7 x10^3/uL (1.0-4.8) Monocytes # (Auto) 0.6 x10^3/uL (0.0-1.1) Eosinophils # (Auto) 0.2 x10^3/uL (0.0-0.7) Basophils # (Auto) 0.1 x10^3/uL (0.0-0.2) Sodium Level 138 mmol/L (136-145) Potassium Level 4.5 mmol/L (3.5-5.1) Chloride Level 100 mmol/L (98-107) Carbon Dioxide Level 27 mmol/L (21-32) Anion Gap 11 (6-14) Blood Urea Nitrogen 39 mg/dL (7-20) Creatinine 6.8 mg/dL (0.6-1.0) Estimated GFR (Cockcroft-Gault) 5.9 BUN/Creatinine Ratio 6 (6-20) Glucose Level 164 mg/dL (70-99) Calcium Level 8.8 mg/dL (8.5-10.1) Total Bilirubin 0.3 mg/dL (0.2-1.0) Aspartate Amino Transf (AST/SGOT) 13 U/L (15-37) Alanine Aminotransferase (ALT/SGPT) 9 U/L (14-59) Alkaline Phosphatase 165 U/L (46-116) Total Protein 7.5 g/dL (6.4-8.2) Albumin 2.6 g/dL (3.4-5.0) Albumin/Globulin Ratio 0.5 (1.0-1.7) Test 04/18/19 14:12 Glucose (Fingerstick) 102 mg/dL (70-99) Allergies Allergies Coded Allergies Type Severity Reaction Last Updated Verified latex Allergy Intermediate Rash 12/30/17 Yes Disposition/Orders: D/C to Home Patient Instructions d/c planning 36 min FLORI DAVIES MD Apr 18, 2019 15:20
[2019-04-18] MEDS ORDERED: ACET500T68 PO (15:23)
[2019-04-18] MEDS ORDERED: AMOX1TAB10 PO (15:23)
[2019-04-18] MEDS ORDERED: DOXY100T PO (15:23)
[2019-04-18] MEDS ORDERED: LACT1CAP19 PO (15:23)
--- NOTE | 2019-04-18 15:25 | DISCH ---
DISCHARGE INSTRUCTIONS Condition on Discharge Condition on Discharge: Stable Activity After Discharge Activity Instructions for Disc: Activity as tolerated Bathing Instructions: Shower-keep dressing dry Lifting Instructions after Dis: No heavy lifting, No pulling or pushing Exercise Instruction after Dis: Walk 10 min, 3 x per day Driving Instructions after Dis: Do not drive today Weight Bearing Status after Di: As tolerated Diet after Discharge Diet after Discharge: Renal Dialysis Diet Texture: Regular Liquid Texture: Thin Liquid Swallowing Supervision: None needed Wound Incision Care Wound/Incision Care: Keep wound/cast CDI Wound Care Equipment: Dressings Checks after Discharge Checks after discharge: Check blood press - daily, Check blood sugar, ac/hs Contacting the DR. after DC Call your doctor for: If your condition worsens Treatment/Equipment after DC Adaptive Equipment Issued: None FLORI DAVIES MD Apr 18, 2019 15:25
--- NOTE | 2019-04-18 16:28 | NUR ---
Pt educated on discharge orders. Escorted out to private vehicle with her daughter by Ayan MURILLO.
== END 2019-04-18 16:00 | disposition home or self-care (01) | DRG 638 ==
LOC: ER 17:18 → 4 NORTH 19:45
PROVIDERS: ADMIT Internal Medicine; ATTEND Internal Medicine
PROC: 5A1D70Z Performance of Urinary Filtration, Intermittent, Less than 6 Hours Per Day (ICD-10-PCS; principal; 2019-04-15)
PROC: 5A1D70Z Performance of Urinary Filtration, Intermittent, Less than 6 Hours Per Day (ICD-10-PCS; 2019-04-17)
DX: E11.621 Type 2 diabetes mellitus with foot ulcer (principal); I12.0 Hypertensive chronic kidney disease with stage 5 chronic kidney disease or end stage renal disease; N13.30 Unspecified hydronephrosis; L97.529 Non-pressure chronic ulcer of other part of left foot with unspecified severity; N18.6 End stage renal disease; D63.8 Anemia in other chronic diseases classified elsewhere; E11.22 Type 2 diabetes mellitus with diabetic chronic kidney disease; E11.42 Type 2 diabetes mellitus with diabetic polyneuropathy; E78.00 Pure hypercholesterolemia, unspecified; E78.5 Hyperlipidemia, unspecified; I25.10 Atherosclerotic heart disease of native coronary artery without angina pectoris; L84 Corns and callosities; M20.10 Hallux valgus (acquired), unspecified foot; Z82.49 Family history of ischemic heart disease and other diseases of the circulatory system; Z85.038 Personal history of other malignant neoplasm of large intestine; Z87.440 Personal history of urinary (tract) infections; Z87.442 Personal history of urinary calculi; Z95.1 Presence of aortocoronary bypass graft; Z99.2 Dependence on renal dialysis; Z83.3 Family history of diabetes mellitus; E21.3 Hyperparathyroidism, unspecified; M19.90 Unspecified osteoarthritis, unspecified site; Z91.040 Latex allergy status
CPT/HCPCS: 36415; 73630; 73718; 80048; 80053; 80069; 80202; 82962; 83036; 83605; 85025; 85027; 85651; 87040; 96361; 96374; 96375; J0696; J1815; J2185; J2405; J2543; J3370; J7040; 97110; 97116; 99285-25; G0378

== ENCOUNTER 2019-07-03 08:49 | Inpatient (IN) | payer MEDICARE ==
[~2019-07-03] VITALS: Ht 160 cm; Wt 59.0 kg
[~2019-07-03 08:49] MED LIST changes: +ACET500T68 PO; +AMOX1TAB10 PO; +DOXY100T PO; +SIMV40TA18 PO; -SIMV40TA3 PO
[2019-07-03] MEDS ORDERED: IV NORMAL SALINE 500ML BAG 500 ML IV ONE ×3 (09:15→12:45)
[2019-07-03] MEDS ORDERED: ONDANSETRON PF 4 MG/2 ML VIAL. IV ONE (09:15)
[2019-07-03 09:23] LABS: BILIRUBIN,URINE NEGATIVE (NEG); CLARITY,URINE TURBID; COLOR,URINE YELLOW; NITRITE,URINE NEGATIVE (NEG); PH,URINE 7.5; PROTEIN,URINE >=300 mg/dL (NEG-TRACE); UROBILINOGEN,URINE 0.2 mg/dL (0.2 mg/dL)
[2019-07-03 09:36] LABS: BASO # 0.1 x10^3/uL (0.0-0.2); BASO % 1 % (0-3); EOS % 0 % (0-3); HEMATOCRIT 33.5 % (36.0-47.0); HEMOGLOBIN 11.1 g/dL (12.0-15.5); LYMPH # 1.2 x10^3/uL (1.0-4.8); LYMPH % 8 % (24-48); MEAN CORPUSCULAR HEMOGLOBIN 33 pg (25-35); MEAN CORPUSCULAR HGB CONC 33 g/dL (31-37); MEAN CORPUSCULAR VOLUME 100 fL (79-100); MONO # 1.3 x10^3/uL (0.0-1.1); MONO % 8 % (0-9); NEUT # 13.2 x10^3/uL (1.8-7.7); NEUT % 84 % (31-73); PLATELET COUNT 184 x10^3/uL (140-400); RED BLOOD COUNT 3.36 x10^6/uL (3.50-5.40); RED CELL DISTRIBUTION WIDTH 15.1 % (11.5-14.5); WHITE BLOOD COUNT 15.7 x10^3/uL (4.0-11.0)
[2019-07-03 09:37] LABS: BACTERIA,URINE MODERATE /HPF (0-FEW); SQUAMOUS EPITHELIAL CELL,UR FEW /LPF; WBC,URINE >40 /HPF (0-4)
--- NOTE | 2019-07-03 09:47 | PHYS DOC ---
Past Medical History Past Medical History: Arthritis, Diabetes-Type II, High Cholesterol, Hypertension, Renal Disease, Renal Failure, UTI Additional Past Medical Histor: hyperkalemia, bladder retention, urinary stents Past Surgical History: Coronary Bypass Surgery Additional Past Surgical Histo: benign tumor removed from colon, bladder stent removed and reinserted, Alcohol Use: None Drug Use: None Adult General Chief Complaint Chief Complaint: NAUSEA/VOMITING/DIARRHA HPI HPI Patient is a 78 year old female, accompanied by her daughter, who presents to the emergency department with complaints of nausea and vomiting 4 since last night, and bilateral lower back pain. Patient currently rates her pain a 5 out of 10 on the pain scale, she denies any alleviating or exacerbating factors.. She denies any numbness, tingling, or weakness of her lower extremities. Patient denies any change in increased urinary frequency, hematuria, dysuria, fever, cough, shortness of breath, diarrhea, or abdominal pain. She states that she went to dialysis yesterday and denies any problems with dialysis. Patient also denies any chest pain, shortness of breath, palpitations, numbness, tingling, or weakness. At this time she complains of frontal headache, she denies any vision changes. All other ROS is neg unless otherwise noted in HPI. Review of Systems Review of Systems See Above Current Medications Current Medications Current Medications Medications (Trade) Dose Ordered Sig/Claudette Start Time Stop Time Status Last Admin Dose Admin Ceftriaxone Sodium (Rocephin) 1 gm 1X ONCE 07/03/19 10:15 07/03/19 10:18 DC 07/03/19 10:26 1 GM Ondansetron HCl (Zofran) 4 mg 1X ONCE 07/03/19 09:15 07/03/19 09:17 DC 07/03/19 09:50 4 MG Sodium Chloride 500 ml @ 500 mls/hr 1X ONCE 07/03/19 09:15 07/03/19 10:14 DC 07/03/19 09:50 500 MLS/HR Allergies Allergies Allergies Coded Allergies Type Severity Reaction Last Updated Verified latex Allergy Intermediate Rash 12/30/17 Yes Physical Exam Physical Exam See Above Constitutional: Well developed, well nourished, no acute distress, non-toxic appearance. [] HENT: Normocephalic, atraumatic, bilateral external ears normal, nose normal. [] Eyes: PERRLA, EOMI, conjunctiva normal, no discharge. [] Neck: Normal range of motion, no stridor. [] Cardiovascular:Heart rate irregular tachycardic, no murmur [] Lungs & Thorax: Bilateral breath sounds clear to auscultation [] Abdomen: Bowel sounds normal, soft, no tenderness, no masses, no pulsatile masses. [] Skin: Warm, dry, no erythema, no rash. [] Back: No bony tenderness, no CVA tenderness. [] Extremities: No cyanosis, no clubbing, ROM intact, no edema. [] Neurologic: Alert and oriented X 3, no focal deficits noted. [] Psychologic: Affect normal, judgement normal, mood normal. [] Current Patient Data Vital Signs Vital Signs Date Time Temp Pulse Resp B/P (MAP) Pulse Ox O2 Delivery O2 Flow Rate FiO2 07/03/19 10:35 99.5 99.5 07/03/19 09:05 104 18 165/94 (117) 96 Room Air Lab Values Laboratory Tests Test 07/03/19 09:00 07/03/19 09:30 07/03/19 10:00 Urine Collection Type Unknown Urine Color Yellow Urine Clarity Turbid Urine pH 7.5 Urine Specific [place] 1.010 Urine Protein >=300 mg/dL (NEG-TRACE) Urine Glucose (UA) 250 mg/dL (NEG) Urine Ketones (Stick) Negative mg/dL (NEG) Urine Blood Large (NEG) Urine Nitrite Negative (NEG) Urine Bilirubin Negative (NEG) Urine Urobilinogen Dipstick 0.2 mg/dL (0.2 mg/dL) Urine Leukocyte Esterase Large (NEG) Urine RBC 6-10 /HPF (0-2) Urine WBC >40 /HPF (0-4) Urine Squamous Epithelial Cells Few /LPF Urine Bacteria Moderate /HPF (0-FEW) White Blood Count 15.7 x10^3/uL (4.0-11.0) H Red Blood Count 3.36 x10^6/uL (3.50-5.40) L Hemoglobin 11.1 g/dL (12.0-15.5) L Hematocrit 33.5 % (36.0-47.0) L Mean Corpuscular Volume 100 fL (79-100) Mean Corpuscular Hemoglobin 33 pg (25-35) Mean Corpuscular Hemoglobin Concent 33 g/dL (31-37) Red Cell Distribution Width 15.1 % (11.5-14.5) H Platelet Count 184 x10^3/uL (140-400) Neutrophils (%) (Auto) 84 % (31-73) H Lymphocytes (%) (Auto) 8 % (24-48) L Monocytes (%) (Auto) 8 % (0-9) Eosinophils (%) (Auto) 0 % (0-3) Basophils (%) (Auto) 1 % (0-3) Neutrophils # (Auto) 13.2 x10^3/uL (1.8-7.7) H Lymphocytes # (Auto) 1.2 x10^3/uL (1.0-4.8) Monocytes # (Auto) 1.3 x10^3/uL (0.0-1.1) H Eosinophils # (Auto) 0.0 x10^3/uL (0.0-0.7) Basophils # (Auto) 0.1 x10^3/uL (0.0-0.2) Segmented Neutrophils % 75 % (35-66) H Band Neutrophils % 6 % (0-9) Lymphocytes % 4 % (24-48) L Monocytes % 9 % (0-10) Eosinophils % 6 % (0-5) H Platelet Estimate Adequate (ADEQUATE) Polychromasia Slight Anisocytosis Slight Sodium Level 136 mmol/L (136-145) Potassium Level 5.3 mmol/L (3.5-5.1) H Chloride Level 96 mmol/L (98-107) L Carbon Dioxide Level 30 mmol/L (21-32) Anion Gap 10 (6-14) Blood Urea Nitrogen 41 mg/dL (7-20) H Creatinine 6.6 mg/dL (0.6-1.0) H Estimated GFR (Cockcroft-Gault) 6.1 BUN/Creatinine Ratio 6 (6-20) Glucose Level 382 mg/dL (70-99) H Lactic Acid Level 3.1 mmol/L (0.4-2.0) H Calcium Level 9.2 mg/dL (8.5-10.1) Total Bilirubin 0.7 mg/dL (0.2-1.0) Aspartate Amino Transferase (AST) 20 U/L (15-37) Alanine Aminotransferase (ALT) 17 U/L (14-59) Alkaline Phosphatase 152 U/L (46-116) H Total Protein 8.5 g/dL (6.4-8.2) H Albumin 2.9 g/dL (3.4-5.0) L Albumin/Globulin Ratio 0.5 (1.0-1.7) L Lipase 87 U/L (73-393) Laboratory Tests 07/03/19 09:30 Laboratory Tests 07/03/19 10:00 EKG EKG 1001- Sinus tach with PACs, rate 107, non specific ST depression, NO STEMI read by Dr. Biswas. [] Radiology/Procedures Radiology/Procedures [] Course & Med Decision Making Course & Med Decision Making Pertinent Labs and Imaging studies reviewed. (See chart for details) dx: UTI, sepsis CBC: WBC 15.7, Hgb 11.1, Hct 33.5, Seg 75; CMP: K+ 5.3, Cl 96, BUN 41. Tube Depatcher 6.6, glucose 382, alk phos 152; UA large leuk, RBC 6-10, WBC >140, moderate bacteria, few squamous cells; lactic acid 3.1 PT given 1 gm rocephin and 500 ml NS in the ER. Pt's lactic acid was 3.1, another 500 ml of NS was ordered. Did not use the follow the fluid resuscitation orders due to chronic renal failure and afia lysis history. 1100- Spoke with Dr. Ba who is the admitting physician, and care was assumed following discussion of patient. Patient's vital signs stable. Patient remains afebrile, appears nontoxic, respirations even and unlabored. Patient will be admitted to the med/tele floor. Patient's case and plan of care also discussed with Dr. Biswas [] Dragon Disclaimer Geri Disclaimer This electronic medical record was generated, in whole or in part, using a voice recognition dictation system. Departure Departure Impression: Primary Impression: UTI (lower urinary tract infection) Additional Impression: Sepsis Disposition: ADMITTED INPATIENT Admitting Physician: MIL Cooper) Condition: STABLE Referrals: LISA CALHOUN (PCP) Date and Time of Reassessment Date: Jun 28, 2016 Time: 11:45 Fluid Challenge Is the fluid challenge complet: No IBW Target Volume Used: No (CRF) BMI > 30: No Vital Signs Vital Signs: Vital Signs Date Time Temp Pulse Resp B/P (MAP) Pulse Ox O2 Delivery O2 Flow Rate FiO2 07/03/19 10:35 99.5 99.5 07/03/19 09:05 104 18 165/94 (117) 96 Room Air Temperature Source: Oral Respirations Respiratory Effort: Normal Respiratory Pattern: Normal Cardiovascular Pulse Rhythm: Irregular Heart: No murmurs noted Lung Sounds Breath Sounds: Clear Capillary Refil Capillary Refill: Rt Hand > 3 seconds Peripheral Pulse Pulse Location: Monitor Pulse Strength: Normal (2+) Pulse Assessment Method: NIBP Integumentary Skin: Warm, Dry Skin Moisture: Dry Skin Turgor: Normal Skin Color: no edema, no erythema Fingernail Color: WNL Problem Qualifiers Additional Impression: Sepsis Sepsis type: sepsis due to unspecified organism Sepsis acute organ dys function status: unspecified Qualified Codes: A41.9 - Sepsis, unspecified organism RAN BARBA SENIOR PARTNER Jul 03, 2019 09:47
[2019-07-03 10:07] LABS: % BANDS 6 % (0-9); % EOS 6 % (0-5); % LYMPHS 4 % (24-48); % MONOS 9 % (0-10); % SEGS 75 % (35-66); ANISOCYTOSIS SLIGHT; PLT ESTIMATE ADEQUATE (ADEQUATE); POLYCHROMASIA SLIGHT
[2019-07-03] MEDS ORDERED: cefTRIAXone IV Push 1 GM VIAL. IVP ONE (10:15)
[2019-07-03 10:16] LABS: CALCIUM 9.2 mg/dL (8.5-10.1); CREATININE 6.6 mg/dL (0.6-1.0); GFR 6.1; POTASSIUM 5.3 mmol/L (3.5-5.1)
[2019-07-03 10:24] LABS: ALBUMIN 2.9 g/dL (3.4-5.0); ALBUMIN/GLOBULIN RATIO 0.5 (1.0-1.7); TOTAL BILIRUBIN 0.7 mg/dL (0.2-1.0); TOTAL PROTEIN 8.5 g/dL (6.4-8.2)
--- NOTE | 2019-07-03 10:50 | EKG ---
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
--- NOTE | 2019-07-03 10:58 | EKG ---
[facility] [address] [place] [address] Test Date: 2019-07-03 Test Time: 10:01:35 Pat Name: BRYANT LOCKHART Department: Room: Gender: F Extension Course Counselor: : 1940 Requested By: RAN BARBA Order Number: [id number] Reading MD: Measurements Intervals [place] Rate: 107 P: -43 DE: 190 QRS: -24 QRSD: 90 T: 62 QT: 342 QTc: 462 Interpretive Statements SINUS TACHYCARDIA ATRIAL PREMATURE COMPLEX(ES) LEFTWARD AXIS NON SPECIFIC T ABNORMALITY NON SPECIFIC ST-T ABNORMALITY (ELEVATION) NON SPECIFIC ST DEPRESSION BORDERLINE ECG Compared to ECG 12/05/2018 11:42:56 Left-axis deviation now present T-wave abnormality now present ST (T wave) deviation now present
[2019-07-03 12:15] VITALS: BP 153/65
--- NOTE | 2019-07-03 12:17 | PDOC2 ---
CONSULT Date of Consult Date of Consult DATE: 07/03/19 TIME: 12:17 Reason for Consult Reason for Consult: ESRD on dialysis Referring Physician Referring Physician: Mejia Identification/Chief Complaint Chief Complaint Nausea vomiting Source Source: Caregiver, Chart review, Patient History of Present Illness Reason for Visit: Kyra is a pleasant 78-year-old female who is followed by Dr. Escalante for her ESRD needs. She dialyzes on a Tuesday basis at [facility]. She claims she has been compliant with dialysis and has not missed any treatments. She presented to the ER due to nausea vomiting. She's had approximately 4 episodes of the same she is not aware off dysuria urgency frequency per se. She does admit to right flank pain. No fevers chills that she is aware of known hematemesis or melena hematochezia per se. In the ER she was noted to have an elevated lactic acid and elevated potassium and was admitted the hospital for further evaluation of the same. She is felt to have sepsis with possible UTI. She does have some right flank tenderness also. She was noted to be tachycardic in the ER. Her daughter tells me that she felt that she was not looking right either. The daughter tells me she was not comfortable with taking her back home due to the above-mentioned issues. Past Medical History Cardiovascular: CAD, HTN, Hyperlipidemia GI: Other Heme/Onc: No pertinent hx Psych: No pertinent hx Rheumatologic: No pertinent hx Infectious disease: No pertinent hx, Other (frequent UTIs in the past) Renal/: Chronic renal failure, UTI, Hematuria, Other Endocrine: Diabetes, Hyperparathyroidism Past Surgical History Past Surgical History: CABG, Cystoscopy, Other Family History Family History: Hypertension, Other Social History ALCOHOL: none Drugs: None Lives: with Family Current Problem List Problem List Problems Medical Problems: (1) Sepsis Status: Acute (2) UTI (lower urinary tract infection) Status: Acute Current Medications Current Medications Current Medications Sodium Chloride 500 ml @ 500 mls/hr 1X ONCE IV Last administered on 07/03/19at 09:50; Start 07/03/19 at 09:15; Stop 07/03/19 at 10:14; Status DC Ondansetron HCl (Zofran) 4 mg 1X ONCE IV Last administered on 07/03/19at 09:50; Start 07/03/19 at 09:15; Stop 07/03/19 at 09:17; Status DC Ceftriaxone Sodium (Rocephin) 1 gm 1X ONCE IVP Last administered on 07/03/19at 10:26; Start 07/03/19 at 10:15; Stop 07/03/19 at 10:18; Status DC Sodium Chloride 500 ml @ 500 mls/hr 1X ONCE IV Last administered on 07/03/19at 11:47; Start 07/03/19 at 11:45; Stop 07/03/19 at 12:44 Active Scripts Active Culturelle (Lactobacillus Rhamnosus Gg) 1 Each Cap.sprink 1 Cap PO BID 30 Days Acetaminophen 500 Mg Tablet 500 Mg PO PRN Q6HRS PRN 10 Days Doxycycline Hyclate 100 Mg Tablet 100 Mg PO BID 14 Days Amox Tr-K Clv 500-125 Mg Tab (Amoxicillin/Potassium Clav) 1 Each Tablet 1 Tab PO DAILY 14 Days Estrace (Estradiol) 42.5 Gm Cream.appl 1 Scotty VG 3X/WEEK 14 Days Reported Funmi-Hannah Rx Tablet (Vit B Cmplx 3/Fa/Vit C/Biotin) 1 Each Tablet 1 Each PO DAILY Novolog (Insulin Aspart) 100 Unit/1 Ml Cartridge 6 Unit SQ TIDAC Lantus Solostar (Insulin Glargine,Hum.rec.anlog) 100 Unit/1 Ml Insuln.pen 6 Unit SQ QHS [regrenex] TOP DAILY PRN Calcium Acetate 667 Mg Tablet 2 Cap PO TIDAC Aspir 81 (Aspirin) 81 Mg Tablet.dr 1 Tab PO DAILY08 Allergies Allergies: Coded Allergies: latex (Verified Allergy, Intermediate, Rash, 12/30/17) ROS Review of System 14 point review of systems was reviewed with the patient. Positives are as documented in history of present illness otherwise negative Physical Exam Physical Exam General Appearance: Awake Alert Oriented x 3 In no Distress Eyes: VIsion Unchanged Conjunctiva Normal EN: No EN Drainage Mucous Memb. moist Neck: no JVD min JVP Supple no Thyromegaly CVS: S1 S2 soft Murmur No Gallop No Rub no Edema Resp: no Rales no Rhonchi no Acc. Muscle use GI: BAS +ve NO Bruit Non Tender Non Distended : Rt CVA tenderness; no Suprapubic Tenderness SKIN: no Rashes Breast Exam deferred Mu.Sk: Adequate ROM no Muscle Atrophy Heme: Unable to palpate Obvious LAD no palp Splenomegaly NEURO: Good Strength and Tone Cranial Nerves II - XII grossly intact Psych: not Depressed no Active hallucination Vital Signs Vital Signs Date Time Temp Pulse Resp B/P (MAP) Pulse Ox O2 Delivery O2 Flow Rate FiO2 07/03/19 11:05 99.2 104 149/65 (93) 96 99.2 07/03/19 09:05 18 Room Air Assessment & Plan ESRD: Current FLuid status does not necessitate emergent need for Dialysis. Potassium is noted to be elevated however patient prefers to take a small dose of Kayexalate rather than proceed with dialysis today. Will continue on Tuesday schedule. Hyperkalemia: It is possible that her elevated glucose may be contributing to hyperkalemia also. Discussed with patient regarding nausea vomiting and oral Kayexalate use. She would rather use that then go to dialysis. Hypoalbuminemia: Patient claims she's eating and drinking well. Sugars are noted to be elevated. No recent A1c is available. Anabolic state due to poorly controlled diabetes cannot be ruled out Lactic acidemia: Unclear etiology. Small bolus of IV fluids will be given. Recheck lactic acid thereafter. Possible sepsis with low-grade fevers: Underlying etiology is unclear. Given elevated alkaline phosphatase and right-sided abdominal discomfort it is possible that she may have a gallbladder issue. Pyelonephritis is another possibility on the right kidney given right CVA tenderness. CT scan of abdomen and pelvis with oral and IV contrast will be ordered. Anemia: Currently at 11. Start EPO as Needed if hemoglobin drops below 10 HTN: Current BP meds reviewed. See orders for changes. Bone & Mineral: Follow phosphorus level and alter binder regimen as needed Possible urinary tract infection: Await cultures. She does have issues with urinary retention. Her daughter tells me that she's been waning spontaneously however. Antibiotics have been initiated currently. Discussed Plan of Care and prognosis etc. at length with family (daughter at bedside). Labs Labs Laboratory Tests Test 07/03/19 09:00 07/03/19 09:30 07/03/19 10:00 Urine Collection Type Unknown Urine Color Yellow Urine Clarity Turbid Urine pH 7.5 Urine Specific [place]ign 1.010 Urine Protein >=300 mg/dL (NEG-TRACE) Urine Glucose (UA) 250 mg/dL (NEG) Urine Ketones (Stick) Negative mg/dL (NEG) Urine Blood Large (NEG) Urine Nitrite Negative (NEG) Urine Bilirubin Negative (NEG) Urine Urobilinogen Dipstick 0.2 mg/dL (0.2 mg/dL) Urine Leukocyte Esterase Large (NEG) Urine RBC 6-10 /HPF (0-2) Urine WBC >40 /HPF (0-4) Urine Squamous Epithelial Cells Few /LPF Urine Bacteria Moderate /HPF (0-FEW) White Blood Count 15.7 x10^3/uL (4.0-11.0) Red Blood Count 3.36 x10^6/uL (3.50-5.40) Hemoglobin 11.1 g/dL (12.0-15.5) Hematocrit 33.5 % (36.0-47.0) Mean Corpuscular Volume 100 fL (79-100) Mean Corpuscular Hemoglobin 33 pg (25-35) Mean Corpuscular Hemoglobin Concent 33 g/dL (31-37) Red Cell Distribution Width 15.1 % (11.5-14.5) Platelet Count 184 x10^3/uL (140-400) Neutrophils (%) (Auto) 84 % (31-73) Lymphocytes (%) (Auto) 8 % (24-48) Monocytes (%) (Auto) 8 % (0-9) Eosinophils (%) (Auto) 0 % (0-3) Basophils (%) (Auto) 1 % (0-3) Neutrophils # (Auto) 13.2 x10^3/uL (1.8-7.7) Lymphocytes # (Auto) 1.2 x10^3/uL (1.0-4.8) Monocytes # (Auto) 1.3 x10^3/uL (0.0-1.1) Eosinophils # (Auto) 0.0 x10^3/uL (0.0-0.7) Basophils # (Auto) 0.1 x10^3/uL (0.0-0.2) Segmented Neutrophils % 75 % (35-66) Band Neutrophils % 6 % (0-9) Lymphocytes % 4 % (24-48) Monocytes % 9 % (0-10) Eosinophils % 6 % (0-5) Platelet Estimate Adequate (ADEQUATE) Polychromasia Slight Anisocytosis Slight Sodium Level 136 mmol/L (136-145) Potassium Level 5.3 mmol/L (3.5-5.1) Chloride Level 96 mmol/L (98-107) Carbon Dioxide Level 30 mmol/L (21-32) Anion Gap 10 (6-14) Blood Urea Nitrogen 41 mg/dL (7-20) Creatinine 6.6 mg/dL (0.6-1.0) Estimated GFR (Cockcroft-Gault) 6.1 BUN/Creatinine Ratio 6 (6-20) Glucose Level 382 mg/dL (70-99) Lactic Acid Level 3.1 mmol/L (0.4-2.0) Calcium Level 9.2 mg/dL (8.5-10.1) Total Bilirubin 0.7 mg/dL (0.2-1.0) Aspartate Amino Transf (AST/SGOT) 20 U/L (15-37) Alanine Aminotransferase (ALT/SGPT) 17 U/L (14-59) Alkaline Phosphatase 152 U/L (46-116) Total Protein 8.5 g/dL (6.4-8.2) Albumin 2.9 g/dL (3.4-5.0) Albumin/Globulin Ratio 0.5 (1.0-1.7) Lipase 87 U/L (73-393) Laboratory Tests Test 07/03/19 09:00 07/03/19 09:30 07/03/19 10:00 Urine Collection Type Unknown Urine Color Yellow Urine Clarity Turbid Urine pH 7.5 Urine Specific Ensign 1.010 Urine Protein >=300 mg/dL (NEG-TRACE) Urine Glucose (UA) 250 mg/dL (NEG) Urine Ketones (Stick) Negative mg/dL (NEG) Urine Blood Large (NEG) Urine Nitrite Negative (NEG) Urine Bilirubin Negative (NEG) Urine Urobilinogen Dipstick 0.2 mg/dL (0.2 mg/dL) Urine Leukocyte Esterase Large (NEG) Urine RBC 6-10 /HPF (0-2) Urine WBC >40 /HPF (0-4) Urine Squamous Epithelial Cells Few /LPF Urine Bacteria Moderate /HPF (0-FEW) White Blood Count 15.7 x10^3/uL (4.0-11.0) Red Blood Count 3.36 x10^6/uL (3.50-5.40) Hemoglobin 11.1 g/dL (12.0-15.5) Hematocrit 33.5 % (36.0-47.0) Mean Corpuscular Volume 100 fL (79-100) Mean Corpuscular Hemoglobin 33 pg (25-35) Mean Corpuscular Hemoglobin Concent 33 g/dL (31-37) Red Cell Distribution Width 15.1 % (11.5-14.5) Platelet Count 184 x10^3/uL (140-400) Neutrophils (%) (Auto) 84 % (31-73) Lymphocytes (%) (Auto) 8 % (24-48) Monocytes (%) (Auto) 8 % (0-9) Eosinophils (%) (Auto) 0 % (0-3) Basophils (%) (Auto) 1 % (0-3) Neutrophils # (Auto) 13.2 x10^3/uL (1.8-7.7) Lymphocytes # (Auto) 1.2 x10^3/uL (1.0-4.8) Monocytes # (Auto) 1.3 x10^3/uL (0.0-1.1) Eosinophils # (Auto) 0.0 x10^3/uL (0.0-0.7) Basophils # (Auto) 0.1 x10^3/uL (0.0-0.2) Segmented Neutrophils % 75 % (35-66) Band Neutrophils % 6 % (0-9) Lymphocytes % 4 % (24-48) Monocytes % 9 % (0-10) Eosinophils % 6 % (0-5) Platelet Estimate Adequate (ADEQUATE) Polychromasia Slight Anisocytosis Slight Sodium Level 136 mmol/L (136-145) Potassium Level 5.3 mmol/L (3.5-5.1) Chloride Level 96 mmol/L (98-107) Carbon Dioxide Level 30 mmol/L (21-32) Anion Gap 10 (6-14) Blood Urea Nitrogen 41 mg/dL (7-20) Creatinine 6.6 mg/dL (0.6-1.0) Estimated GFR (Cockcroft-Gault) 6.1 BUN/Creatinine Ratio 6 (6-20) Glucose Level 382 mg/dL (70-99) Lactic Acid Level 3.1 mmol/L (0.4-2.0) Calcium Level 9.2 mg/dL (8.5-10.1) Total Bilirubin 0.7 mg/dL (0.2-1.0) Aspartate Amino Transf (AST/SGOT) 20 U/L (15-37) Alanine Aminotransferase (ALT/SGPT) 17 U/L (14-59) Alkaline Phosphatase 152 U/L (46-116) Total Protein 8.5 g/dL (6.4-8.2) Albumin 2.9 g/dL (3.4-5.0) Albumin/Globulin Ratio 0.5 (1.0-1.7) Lipase 87 U/L (73-393) Review All relevant outside records, renal labs, imaging studies, telemetry/EKG's were reviewed. Images Images No current imaging studies however a CT scan of abdomen pelvis has been ordered TRINA العلي MD Jul 03, 2019 12:17
[2019-07-03] MEDS ORDERED: MAGNESIUM SULFATE 2GM 50 ML IV PRN (12:45)
[2019-07-03] MEDS ORDERED: SODIUM POLYSTYRENE SULFON/SORB 15 GM/60 ML ORAL.SUSP PO ONE (12:45)
[2019-07-03] MEDS ORDERED: IOHEXOL 300 MG/ML 100ML VIAL. IV ONE (13:45)
[2019-07-03] MEDS ORDERED: IOHEXOL 240 MG/ML 50ML VIAL. PO ONE (13:45)
[2019-07-03] MEDS ORDERED: CONTRAST GIVEN. MC PRN (13:45)
--- NOTE | 2019-07-03 13:46 | HP ---
ADMIT DATE: 07/03/2019 CHIEF COMPLAINT: Nausea, vomiting, diarrhea. HISTORY OF PRESENT ILLNESS: The patient is a pleasant 78-year-old female, who is on dialysis. She is well known to our service. Today, she presents with GI symptoms of nausea, vomiting, and diarrhea. She has associated back pain, rates her symptoms at 5/10. She also has a frontal headache, but no visual changes. I discussed the case with ER physician. Apparently, the patient meets sepsis criteria. She has a UTI and white count of 15,000. We are going to admit the patient and consult Infectious Disease and Nephrology. 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 ALLERGIES: LATEX. FAMILY HISTORY: Hypertension. SOCIAL HISTORY: She lives at home. She does not drink, smoke or take drugs. MEDICATIONS: Reviewed, please refer to the MRAD. REVIEW OF SYSTEMS: GENERAL: No history of weight change, weakness or fevers. SKIN: No bruising, hair changes or rashes. EYES: No blurred, double or loss of vision. NOSE AND THROAT: No history of nosebleeds, hoarseness or sore throat. HEART: No history of palpitations, chest pain or shortness of breath on exertion. LUNGS: Denies cough, hemoptysis, wheezing or shortness of breath. GASTROINTESTINAL: The patient complains of nausea, vomiting, and diarrhea. GENITOURINARY: No history of frequency, urgency, hesitancy or nocturia. NEUROLOGIC: Denies history of numbness, tingling, tremor or weakness. PSYCHIATRIC: No history of panic, anxiety or depression. ENDOCRINE: No history of heat or cold intolerance, polyuria or polydipsia. EXTREMITIES: Denies muscle weakness, joint pain, pain on walking or stiffness. PHYSICAL EXAMINATION: VITALS: Within normal limits and are stable. GENERAL: The patient appears depressed which is not normal for her. She is very weak. HEENT: Head is normocephalic, atraumatic, pupils were equally round and reactive to light and accommodation. NECK: Supple, no JVD, no thyromegaly was noted. LUNGS: Clear to auscultation in all lung gutierrez without rhonchi or wheezing. HEART: RRR, S1, S2 present. Peripheral pulses intact, no obvious murmurs were noted. ABDOMEN: Soft, nontender. Positive bowel sounds no organomegaly, normal bowel sounds. EXTREMITIES: Without any cyanosis, clubbing, or edema. Pedal pulses intact, Homans sign is negative. NEUROLOGIC: The patient is lethargic and not smiling today which is not normal for her. PSYCHIATRIC: Normal affect, normal mood. Stable. SKIN: Pale. VASCULAR: Good capillary refill, neurovascular bundle appears to be intact. LABORATORY DATA: Electrolytes: Sodium 136, potassium 5.3, chloride 96, bicarbonate 30, BUN 41, creatinine is 6.6, and glucose 382. White count 16, hemoglobin 11, and platelets 184. Urinalysis shows a large amount of blood, large amount of leukocyte esterase and too numerous to count white cells. ASSESSMENT AND PLAN: Sepsis in a middle-aged female, who is on dialysis. The patient has been admitted. We will consult Nephrology and Infectious Disease. Gentle IV fluids, IV antibiotics, deep venous thrombosis prophylaxis. Full code. Home meds. PROGNOSIS: Guarded. NIDIA SQIURES DO DR: GABI/anthony JOB#: [id number] / [id number]
[2019-07-03] MEDS ORDERED: NON FORMULARY ITEM INH PRN (14:00)
[2019-07-03] MEDS ORDERED: ALBUTEROL SULFATE 2.5 MG/3 ML NEBU. NEB PRN (14:30)
--- NOTE | 2019-07-03 14:45 | NUR ---
Admitted to room 648 from ED with UTI/Sepsis accompanied by family member, oriented to surroundings call light within reach
[2019-07-03 15:00] VITALS: BP 122/50
[2019-07-03] MEDS: ASPIRIN CHEWABLE 81 MG TABLET. PO SCH (15:00)
--- NOTE | 2019-07-03 15:00 | NUR ---
SW consulted for no new needs. Chart reviewed and pt lives at home with spouse. No SW needs identified at this time. SW will be available as needed
[2019-07-03] MEDS: CALCIUM ACETATE 667 MG CAPSULE PO SCH (17:00)
--- NOTE | 2019-07-03 17:01 | RAD ---
CT abdomen pelvis with contrast dated 07/03/2019. Comparison made to 01/30/2019. CLINICAL INDICATION: Right flank pain. TECHNIQUE: Contiguous axial imaging of the abdomen and pelvis performed after the administration of 75 cc Omnipaque 350. One or more of the following individualized dose reduction techniques were utilized for this examination: 1. Automated exposure control 2. Adjustment of the mA and/or kV according to patient size 3. Use of iterative reconstruction technique. FINDINGS: Limited images of lung bases show patchy increased density in the left lower lobe, likely atelectasis. Heart size mildly enlarged. Patient status post median sternotomy and CABG procedure. Liver, spleen, pancreas, adrenal glands unremarkable. There is a porcelain gallbladder, unchanged. There is moderate right-sided hydronephrosis with dilation of the right renal pelvis. Soft tissue thickening and enhancement along the proximal and mid right ureter. There is also mild urothelial enhancement of the left collecting system with minimal pelvocaliectasis on the left. Bilateral renal atrophy. Findings are similar to prior study. The distal ureters were not included on the study. Small exophytic nodular focus at the midpole left kidney posteriorly appears to somewhat increased in size measuring 1.5 cm versus 1.0 cm previously. Partially opacified GI tract normal in caliber and contour. No focal bowel wall thickening. No inflammatory stranding in the mesentery. There are scattered diverticula throughout the colon. No paracolonic inflammatory changes. No free fluid or lymphadenopathy. Abdominal aorta normal in caliber. Images of pelvis show diffuse wall thickening of the urinary bladder with dilated distal ureters and urothelial thickening, unchanged. Uterus is partially calcified. No adnexal mass or free fluid. No pelvic lymphadenopathy. Bone windows show healing fractures of the superior and inferior pubic ramus on the left. There is also healing fracture of the left iliac bone marginating the left SI joint. Wedge compression deformity of L2, unchanged. Multilevel spondylosis. IMPRESSION: 1. Bilateral hydronephrosis with extensive bilateral urothelial thickening and diffuse bladder wall thickening, nonspecific. Although this could be related to chronic infection or other inflammatory process, underlying bladder malignancy or urothelial malignancy is not excluded. Findings are similar to prior study. 2. Porcelain gallbladder, unchanged. This places the patient at future risk of gallbladder malignancy. If indicated, ultrasound or MRI may better evaluate. 3. Diverticulosis with no evidence of acute diverticulitis. 4. Healing left-sided pelvic fractures. Electronically signed by: Rosalio Sofia MD (07/03/2019 4:58 PM) [facility]
[2019-07-03] MEDS: INSULIN LISPRO 300 UNITS/3 ML VIAL. SQ SCH (17:18)
--- NOTE | 2019-07-03 17:34 | NUR ---
Erendira held no calories consumed, given meal dose insulin given for reading of 310
[2019-07-03 19:05] VITALS: BP 117/50
[2019-07-03] MEDS: SIMVASTATIN 40 MG TABLET. PO SCH (22:17)
[2019-07-03] MEDS: INSULIN GLARGINE SYRINGE. SQ SCH (22:22)
[2019-07-03 23:05] VITALS: BP 112/45
[2019-07-03 23:07] LABS: HEMOGLOBIN A1C 8.3 % (4.8-5.6)
[2019-07-04 02:00] VITALS: BP 121/61
[2019-07-04 02:05] VITALS: BP 99/54
[2019-07-04 02:25] VITALS: BP 94/45
--- NOTE | 2019-07-04 02:30 | NUR ---
Patient noted to Have fast heart rate 12o to 170's on monitor with no other symptom BP 121/61, Spoke with Dr. Godfrey new order received to consult Cardiology and transfer patient to CVC, EKG, BMP, MG, Calcium, Mg, TSH, Troponin level, and orders for medications push and drips, spoke with Plug Overwrap Machine Tender and ICU charge Nurse, received CVC room right a way for room transfer, ICU Charge nurse here to assist and is on phone with Dr. Zapata Cardiology consult receiving orders as this nurse is giving report to CVC receiving nurse, Patient is being transferred to room 258 with new onset Afib RVR, with bundle block per EKG done by Respiratory.
--- NOTE | 2019-07-04 02:35 | NUR ---
The patient, BRYANT LOCKHART, 78 y/o, F admitted by NIDIA SQUIRES III, DO, ON transferred from 648 to [facility]. Patient arrived with BP 74/47 P 133 R 22. T 99.2. Sats 85%. Patient c/o of feeling hot. Denies CP, Palpitations, or SOA. Patient was placed on 2L NC. Sats now 95% Diaphoretic, placed patient in Trendelenburg position. Patient BP now 92/51 P133. Gave her Tylenol & Dig as ordered. Patient has call light with in reach. Lights on as desired, Fan placed as requested. Patient settled into room. RN will continue to monitor.
--- NOTE | 2019-07-04 02:55 | NUR ---
Patient in Afib RVR, HR 120-160s. Dr. Zapata notified at 0235. New orders received. Will implement.
[2019-07-04] MEDS ORDERED: DIGOXIN IV 500 MCG/2 ML AMPUL. IV ONE (03:00)
[2019-07-04] MEDS ORDERED: METOPROLOL TARTRATE 5 MG/5 ML VIAL. IVP ONE (03:15)
[2019-07-04] MEDS: ACETAMINOPHEN 325 MG TABLET. PO PRN ×2 (03:23→22:10)
[2019-07-04] MEDS: METOPROLOL TART IMMED RELEASE 25 MG TABLET. PO SCH ×5 (03:50→23:24)
[2019-07-04 03:59] LABS: ALBUMIN 2.3 g/dL (3.4-5.0); CALCIUM 8.2 mg/dL (8.5-10.1); CREATININE 7.5 mg/dL (0.6-1.0); GFR 5.3; MAGNESIUM 1.5 mg/dL (1.8-2.4); PHOSPHORUS 4.7 mg/dL (2.6-4.7); POTASSIUM 4.4 mmol/L (3.5-5.1)
[2019-07-04 07:07] VITALS: BP 105/56
--- NOTE | 2019-07-04 07:29 | EKG ---
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
[2019-07-04] MEDS ORDERED: IV NORMAL SALINE 1000ML BAG 1,000 ML IV ONE (07:45)
--- NOTE | 2019-07-04 08:26 | PDOC ---
Infectious Disease Note Vital Sign Vital Signs Vital Signs Date Time Temp Pulse Resp B/P (MAP) Pulse Ox O2 Delivery O2 Flow Rate FiO2 07/04/19 07:07 98.0 139 26 105/56 (72) 96 Nasal Cannula 2.0 98.0 Labs Lab Laboratory Tests Test 07/03/19 09:00 07/03/19 09:30 07/03/19 10:00 07/03/19 12:34 Urine Collection Type Unknown Urine Color Yellow Urine Clarity Turbid Urine pH 7.5 Urine Specific [place] 1.010 Urine Protein >=300 mg/dL (NEG-TRACE) Urine Glucose (UA) 250 mg/dL (NEG) Urine Ketones (Stick) Negative mg/dL (NEG) Urine Blood Large (NEG) Urine Nitrite Negative (NEG) Urine Bilirubin Negative (NEG) Urine Urobilinogen Dipstick 0.2 mg/dL (0.2 mg/dL) Urine Leukocyte Esterase Large (NEG) Urine RBC 6-10 /HPF (0-2) Urine WBC >40 /HPF (0-4) Urine Squamous Epithelial Cells Few /LPF Urine Bacteria Moderate /HPF (0-FEW) White Blood Count 15.7 x10^3/uL (4.0-11.0) Red Blood Count 3.36 x10^6/uL (3.50-5.40) Hemoglobin 11.1 g/dL (12.0-15.5) Hematocrit 33.5 % (36.0-47.0) Mean Corpuscular Volume 100 fL (79-100) Mean Corpuscular Hemoglobin 33 pg (25-35) Mean Corpuscular Hemoglobin Concent 33 g/dL (31-37) Red Cell Distribution Width 15.1 % (11.5-14.5) Platelet Count 184 x10^3/uL (140-400) Neutrophils (%) (Auto) 84 % (31-73) Lymphocytes (%) (Auto) 8 % (24-48) Monocytes (%) (Auto) 8 % (0-9) Eosinophils (%) (Auto) 0 % (0-3) Basophils (%) (Auto) 1 % (0-3) Neutrophils # (Auto) 13.2 x10^3/uL (1.8-7.7) Lymphocytes # (Auto) 1.2 x10^3/uL (1.0-4.8) Monocytes # (Auto) 1.3 x10^3/uL (0.0-1.1) Eosinophils # (Auto) 0.0 x10^3/uL (0.0-0.7) Basophils # (Auto) 0.1 x10^3/uL (0.0-0.2) Segmented Neutrophils % 75 % (35-66) Band Neutrophils % 6 % (0-9) Lymphocytes % 4 % (24-48) Monocytes % 9 % (0-10) Eosinophils % 6 % (0-5) Platelet Estimate Adequate (ADEQUATE) Polychromasia Slight Anisocytosis Slight Hemoglobin A1c 8.3 % (4.8-5.6) Sodium Level 136 mmol/L (136-145) Potassium Level 5.3 mmol/L (3.5-5.1) Chloride Level 96 mmol/L (98-107) Carbon Dioxide Level 30 mmol/L (21-32) Anion Gap 10 (6-14) Blood Urea Nitrogen 41 mg/dL (7-20) Creatinine 6.6 mg/dL (0.6-1.0) Estimated GFR (Cockcroft-Gault) 6.1 BUN/Creatinine Ratio 6 (6-20) Glucose Level 382 mg/dL (70-99) Lactic Acid Level 3.1 mmol/L (0.4-2.0) Calcium Level 9.2 mg/dL (8.5-10.1) Total Bilirubin 0.7 mg/dL (0.2-1.0) Aspartate Amino Transf (AST/SGOT) 20 U/L (15-37) Alanine Aminotransferase (ALT/SGPT) 17 U/L (14-59) Alkaline Phosphatase 152 U/L (46-116) Total Protein 8.5 g/dL (6.4-8.2) Albumin 2.9 g/dL (3.4-5.0) Albumin/Globulin Ratio 0.5 (1.0-1.7) Lipase 87 U/L (73-393) Glucose (Fingerstick) 306 mg/dL (70-99) Test 07/03/19 14:50 07/03/19 16:47 07/03/19 22:45 07/04/19 03:30 Lactic Acid Level 2.5 mmol/L (0.4-2.0) 1.5 mmol/L (0.4-2.0) Glucose (Fingerstick) 310 mg/dL (70-99) 295 mg/dL (70-99) Sodium Level 134 mmol/L (136-145) Potassium Level 4.4 mmol/L (3.5-5.1) Chloride Level 95 mmol/L (98-107) Carbon Dioxide Level 26 mmol/L (21-32) Anion Gap 13 (6-14) Blood Urea Nitrogen 50 mg/dL (7-20) Creatinine 7.5 mg/dL (0.6-1.0) Estimated GFR (Cockcroft-Gault) 5.3 Glucose Level 275 mg/dL (70-99) Calcium Level 8.2 mg/dL (8.5-10.1) Phosphorus Level 4.7 mg/dL (2.6-4.7) Magnesium Level 1.5 mg/dL (1.8-2.4) Troponin I Quantitative < 0.017 ng/mL (0.000-0.055) Albumin 2.3 g/dL (3.4-5.0) Thyroid Stimulating Hormone (TSH) 2.658 uIU/mL (0.358-3.74) Test 07/04/19 07:10 Glucose (Fingerstick) 199 mg/dL (70-99) Objective Assessment Fever Leukocytosis Lactic acidosis UTI with sepsis ESRD on HD Plan Plan of Care cefepime and vanc check cultures supportive care d/w daughter ANA CRISTINA العلي MD Jul 04, 2019 08:26
[2019-07-04] MEDS ORDERED: VANCOMYCIN 1.25 GM in IV NORMAL SALINE 250ML 250 ML IV ONE (08:30)
[2019-07-04] MEDS: FOLIC/VIT B COMP W-C (RENAL) TABLET. PO SCH (08:40)
[2019-07-04] MEDS: CALCIUM ACETATE 667 MG CAPSULE PO SCH ×3 (08:40→17:06)
[2019-07-04] MEDS: ASPIRIN CHEWABLE 81 MG TABLET. PO SCH (08:40)
[2019-07-04] MEDS: INSULIN LISPRO 300 UNITS/3 ML VIAL. SQ SCH ×3 (08:47→17:20)
[2019-07-04] MEDS ORDERED: IV NORMAL SALINE 1000ML BAG 1,000 ML IV PRN ×2 (09:42)
[2019-07-04] MEDS ORDERED: ALBUMIN HUMAN 25% 200 ML IV PRN (09:45)
[2019-07-04] MEDS ORDERED: DIALYSIS PATIENT. MC PRN ×2 (09:45)
--- NOTE | 2019-07-04 10:19 | CONS ---
DATE OF CONSULTATION: 07/04/2019 REQUESTING PHYSICIAN: Dr. Ba. REASON FOR CONSULTATION: Urinary tract infection with sepsis. HISTORY OF PRESENT ILLNESS: This is a 78-year-old female with end-stage renal disease, on hemodialysis, who came in with 2-day history of vomiting, chills, fever and some flank pain. The patient was diagnosed with UTI. The patient had lactic acidosis, fever, leukocytosis, was given a dose of Rocephin and consult has been requested. The patient is alert, awake. The patient in fact was because of the tachycardia was transferred on to the monitor bed, after fluids her heart rate has improved. The patient denies any nausea, vomiting or diarrhea. Right now, denies any chest pain, shortness of breath, flank pain, abdominal pain, urinary symptoms, headache, or visual symptoms. PAST MEDICAL HISTORY: Positive for end-stage renal disease, on hemodialysis, hypertension, diabetes, arthritis, hyperlipidemia and urinary retention. 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 The patient also has had cystoscopies. SOCIAL HISTORY: Negative for smoking, alcohol, illicit drug use. ALLERGIES: No known drug allergies. CURRENT MEDICATIONS: Reviewed. REVIEW OF SYSTEMS: As per HPI, all other systems reviewed are negative. PHYSICAL EXAMINATION: GENERAL: Alert, oriented female, not in any distress. VITAL SIGNS: Stable with a T-max 100.3. Rest of vital signs are stable. HEENT: NAD. NECK: Supple, no JVP, no lymphadenopathy. LUNGS: Clear. HEART: S1, S2 regular. ABDOMEN: Benign. EXTREMITIES: No edema, cyanosis. SKIN: Unremarkable. NEUROLOGIC: The patient is neurologically alert, awake and appropriate. No focal neurologic deficit. LABORATORY DATA: White count is 15.7. BUN and creatinine is 50 and 7.5. Lactic acid was up to 3.1, which is improved to normal. Urinalysis showed more than 40 wbc's. Urine culture and blood culture is pending. CT of the abdomen and pelvis showed bilateral hydronephrosis, porcelain gallbladder and diverticulosis. IMPRESSION: 1. Fever. 2. Leukocytosis. 3. Lactic acidosis. 4. Urinary tract infection with sepsis. 5. Bilateral hydronephrosis, chronic. 6. End-stage renal disease, on hemodialysis. RECOMMENDATIONS: We will give one dose of vancomycin and started on cefepime, supportive care, check the cultures and adjust. Discussion with family done at the bedside, the daughter and son. Thank you very much, Dr. Ba, for giving me the opportunity to participate in this patient's care. ANA CRISTINA العلي MD DR: MARYURI/anthony JOB#: [id number] / [id number]
[2019-07-04 10:30] LABS: BASO % 1 % (0-3); EOS % 0 % (0-3); HEMATOCRIT 28.4 % (36.0-47.0); HEMOGLOBIN 9.5 g/dL (12.0-15.5); LYMPH # 1.2 x10^3/uL (1.0-4.8); LYMPH % 11 % (24-48); MEAN CORPUSCULAR HEMOGLOBIN 34 pg (25-35); MEAN CORPUSCULAR HGB CONC 33 g/dL (31-37); MEAN CORPUSCULAR VOLUME 101 fL (79-100); MONO # 0.8 x10^3/uL (0.0-1.1); MONO % 7 % (0-9); NEUT # 8.9 x10^3/uL (1.8-7.7); NEUT % 81 % (31-73); PLATELET COUNT 164 x10^3/uL (140-400); RED BLOOD COUNT 2.81 x10^6/uL (3.50-5.40); RED CELL DISTRIBUTION WIDTH 14.9 % (11.5-14.5); WHITE BLOOD COUNT 10.9 x10^3/uL (4.0-11.0)
--- NOTE | 2019-07-04 10:42 | PDOC2 ---
DANIELLE THOMAS TANK INSPECTOR 07/04/19 1042: CARDIAC CONSULT DATE OF CONSULT Date of Consult DATE: 07/04/19 TIME: 10:22 REASON FOR CONSULT Reason for Consult: AFIB RVR REFERRING PHYSICIAN Referring Physician: Epifanio SOURCE Source: Chart review, Patient HISTORY OF PRESENT ILLNESS HISTORY OF PRESENT ILLNESS This is a 78 yo female admitted for complains of low back pain and fever. Upon further imaging she has been noted with bilateral hydronephrosis with UTI. She did have ureteral stent placed in the past which was already removed. She started HD a yr ago and also had a tumor removed from her kidney. As an inpt she developed AFIB RVR which has concerning morphology seen in pt with ischemia and PE. So far her pain has been bilateral flank with no abd pain but also bouts of nausea and vomiting with gastric contents x3. No hematemesis. She has been having urinary incontinence as well. She was given digoxin and metoprolol and IVF was given as well and now she has converted back to SR. Denies any card iac symptoms, frequent dizziness or SOA. She has diabetes and has neuropathy. Though her HR was fast she denies ever feeling any palpitations. She had CABG about 10 yrs ago but never followed up with any aircraft general repair mechanic to her recollection. Her heart disease basically have been managed by her PCP and has been complaint with her treatment. She had stress test >2 yrs ago in [place] but could not remember the facility. No recent injuries or falls. PAST MEDICAL HISTORY Cardiovascular: CAD, HTN, Hyperlipidemia CENTRAL NERVOUS SYSTEM: Periperal neuropathy GI: Diverticulosis Heme/Onc: Anemia NOS, Cancer (colon) Hepatobiliary: No pertinent hx Psych: No pertinent hx Musculoskeletal: Osteoarthritis Rheumatologic: No pertinent hx Infectious disease: Other (ESBL) ENT: Other (cataract) Renal/: Chronic renal failure (ESRD), UTI, Other (hydronephrosis; neurogenic bladder) Endocrine: Diabetes (2) Dermatology: Other (diabetes ulcers) PAST SURGICAL HISTORY Past Surgical History: CABG, Cataract Removal, Colectomy, Other (ureteral stent placement; left ankle ORIF; LA AV dialysis fistula; Foot I & D) FAMILY HISTORY Family History: Hypertension SOCIAL HISTORY Smoke: No ALCOHOL: none Drugs: None Lives: with Family CURRENT MEDICATIONS CURRENT MEDICATIONS Current Medications Medications (Trade) Dose Ordered Sig/Claudette Route PRN Reason Start Time Stop Time Status Last Admin Dose Admin Sodium Chloride 500 ml @ 500 mls/hr 1X ONCE IV 07/03/19 11:45 07/03/19 12:44 DC 07/03/19 11:47 Sodium Polystyrene Sulfonate (Kayexalate) 30 gm 1X ONCE PO 07/03/19 12:45 07/03/19 12:46 DC 07/03/19 13:30 Sodium Chloride 500 ml @ 0 mls/hr 1X ONCE IV 07/03/19 12:45 07/03/19 12:51 DC 07/03/19 12:45 Iohexol (Omnipaque 240 Mg/ml) 30 ml 1X ONCE PO 07/03/19 13:45 07/03/19 13:46 DC 07/03/19 13:45 Iohexol (Omnipaque 300 Mg/ml) 75 ml 1X ONCE IV 07/03/19 13:45 07/03/19 13:46 DC 07/03/19 13:45 Vitamin B Complex/ Vitamin C (Funmi-Hannah) 1 tab DAILY PO 07/04/19 09:00 07/04/19 08:40 Simvastatin (Zocor) 40 mg QHS PO 07/03/19 21:00 07/03/19 22:17 Aspirin (Children'S Aspirin) 81 mg DAILYWBKFT PO 07/03/19 15:00 07/04/19 08:40 Insulin Glargine (Lantus Syringe) 6 unit QHS SQ 07/03/19 21:00 07/03/19 22:22 Insulin Human Lispro (HumaLOG) 6 units TIDWMEALS SQ 07/03/19 17:00 07/04/19 08:47 Calcium Acetate (Phoslo) 1,334 mg TIDWMEALS PO 07/03/19 17:00 07/04/19 08:40 Acetaminophen (Tylenol) 650 mg PRN Q6HRS PRN PO MILD PAIN / TEMP 07/03/19 16:45 07/04/19 03:23 Metoprolol Tartrate (Lopressor Vial) 5 mg 1X ONCE IVP 07/04/19 03:15 07/04/19 03:16 DC 07/04/19 03:49 Metoprolol Tartrate (Lopressor) 25 mg Q6HRS PO 07/04/19 03:15 07/04/19 05:44 Digoxin (Lanoxin) 500 mcg 1X ONCE IV 07/04/19 03:00 07/04/19 03:14 DC 07/04/19 03:11 Sodium Chloride 1,000 ml @ 1,000 mls/hr 1X ONCE IV 07/04/19 07:45 07/04/19 08:44 DC 07/04/19 07:53 Vancomycin HCl 1.25 gm/Sodium Chloride 250 ml @ 166.667 mls/hr 1X ONCE IV 07/04/19 08:30 07/04/19 09:59 DC 07/04/19 09:10 ALLERGIES ALLERGIES: Coded Allergies: latex (Verified Allergy, Intermediate, Rash, 12/30/17) ROS Review of System 14 point ROS evaluated with pertinent positives noted per HPI PHYSICAL EXAM General: Alert, Oriented X3, Cooperative, No acute distress HEENT: Atraumatic, Mucous membr. moist/pink Lungs: Other (diminished bases) Heart: Regular rate (SR), Other (distant heart sounds) Abdomen: Soft, No tenderness Extremities: No cyanosis, No edema Skin: No breakdown, No significant lesion Neuro: Normal speech, Sensation intact Psych/Mental Status: Mental status NL, Mood NL MUSCULOSKELETAL: Osteoarthritic changes both hands VITALS/I&O VITALS/I&O: Vital Signs Date Time Temp Pulse Resp B/P (MAP) Pulse Ox O2 Delivery O2 Flow Rate FiO2 07/04/19 07:07 98.0 139 26 105/56 (72) 96 Nasal Cannula 2.0 98.0 I & O 07/03/19 07/03/19 07/04/19 15:00 23:00 07:00 Intake Total 500 ml 120 ml Output Total 1 ml Balance 500 ml 119 ml LABS Lab: Laboratory Tests Test 07/03/19 12:34 07/03/19 14:50 07/03/19 16:47 07/03/19 22:45 Glucose (Fingerstick) 306 mg/dL (70-99) H 310 mg/dL (70-99) H 295 mg/dL (70-99) H Lactic Acid Level 2.5 mmol/L (0.4-2.0) H Test 07/04/19 03:30 07/04/19 07:10 Sodium Level 134 mmol/L (136-145) L Potassium Level 4.4 mmol/L (3.5-5.1) Chloride Level 95 mmol/L (98-107) L Carbon Dioxide Level 26 mmol/L (21-32) Anion Gap 13 (6-14) Blood Urea Nitrogen 50 mg/dL (7-20) H Creatinine 7.5 mg/dL (0.6-1.0) H Estimated GFR (Cockcroft-Gault) 5.3 Glucose Level 275 mg/dL (70-99) H Lactic Acid Level 1.5 mmol/L (0.4-2.0) Calcium Level 8.2 mg/dL (8.5-10.1) L Phosphorus Level 4.7 mg/dL (2.6-4.7) Magnesium Level 1.5 mg/dL (1.8-2.4) L Troponin I Quantitative < 0.017 ng/mL (0.000-0.055) Albumin 2.3 g/dL (3.4-5.0) L Thyroid Stimulating Hormone (TSH) 2.658 uIU/mL (0.358-3.74) Glucose (Fingerstick) 199 mg/dL (70-99) H Laboratory Tests 07/04/19 03:30 ASSESSMENT/PLAN ASSESSMENT/PLAN 1. AFIB RVR: back to SR. multifactorial from metabolic derangement/sepsis but could not rule out PE nor occult ischemia as associated culprit 2. Abnormal EKG: noted with S1Q3T3, RBBB, diffuse ST depression with aVR ST changes while on AFIB. 3. ESRD 4. Sepsis with bilateral hydronephrosis/UTI: ureteral stents removed in the past per pt 5. Elevated troponin: 0.5. EKG changes as noted above. No CP, possibly demand mediated but could not rule out occult ischemia. 6. Elevated DDIMER 7. CAD; CABG x3 10 yrs ago with last stress test >2 yrs ago. Not seen aircraft general repair mechanic in 10 yrs. 8. HTN: controlled 9. HLP 10. DM2/peripheral neuropathy: on insulin therapy Recommendations 1. TTE, lipids. Trend troponin 2. V/Q scan to rule out PE 3. Continue with secondary prevention measures. ASA, lopressor. Replace Mg 4. Treat sepsis per ID. Will consider for ischemic workup pending tests as noted above. 5. MCOT and note AFIB burden and further need of anticoagulation therapy. 6. Establish cardiology care in our office. 7. Fluid off loading per HD. PASNOSHAYNE,JAYLIN R MD 07/04/19 1625: CARDIAC CONSULT ASSESSMENT/PLAN ASSESSMENT/PLAN Patient seen and examined. Agree with IMPREGNATION OPERATOR's assessment and plan. PAF back in sinus rhythm. 2-D echo showed LVEF 55% Plan for outpatient event monitor to assess AF burden and guide antiarrhythmic/anticoagulation therapy Agree with VQ scan to rule out PE based on EKG findings CAD clinically stable. Plan for ischemic workup as an outpatient Continue hemodialysis per nephrology team. Thank you for your consultation. DANIELLE THOMAS APRN Jul 04, 2019 10:42 JAYLIN LAKAHNI MD Jul 04, 2019 16:25
--- NOTE | 2019-07-04 11:14 | PDOC ---
Dialysis Progress Note Dialysis Note Dialysis Note Seen on Hemodialysis, tolerating treatment Well Vitals on Hemodialysis: 95/48 78 98.0 General Appearance: Awake: Alert Oriented x 3 Neck: No JVD or JVP Chest: CTA [place] Heart: S1 S2 Abdomen - Soft NTND Extremities - No Edema ESRD: Dialysis as below F 180 NR 3.0 Hrs 3 K 2.5 Ca 140 Na 35 HC03 Qb 350 + Qd 500+ Heparin 0 Units Uf 0 Kgs (since pt is below dry weight asOP) May give 25-50 gms of 25% Albumin if needed to maintain Hemodynamic stability Treatment plan reviewed and discussed with wage and salary administrator Vitals Vital Signs Vital Signs Date Time Temp Pulse Resp B/P (MAP) Pulse Ox O2 Delivery O2 Flow Rate FiO2 07/04/19 08:00 Nasal Cannula 2.0 07/04/19 07:07 98.0 139 26 105/56 (72) 96 98.0 Labs Last Labs Laboratory Tests Test 07/03/19 09:00 07/03/19 09:30 07/03/19 10:00 07/03/19 12:34 Urine Collection Type Unknown Urine Color Yellow Urine Clarity Turbid Urine pH 7.5 Urine Specific Rudy 1.010 Urine Protein >=300 mg/dL (NEG-TRACE) Urine Glucose (UA) 250 mg/dL (NEG) Urine Ketones (Stick) Negative mg/dL (NEG) Urine Blood Large (NEG) Urine Nitrite Negative (NEG) Urine Bilirubin Negative (NEG) Urine Urobilinogen Dipstick 0.2 mg/dL (0.2 mg/dL) Urine Leukocyte Esterase Large (NEG) Urine RBC 6-10 /HPF (0-2) Urine WBC >40 /HPF (0-4) Urine Squamous Epithelial Cells Few /LPF Urine Bacteria Moderate /HPF (0-FEW) White Blood Count 15.7 x10^3/uL (4.0-11.0) Red Blood Count 3.36 x10^6/uL (3.50-5.40) Hemoglobin 11.1 g/dL (12.0-15.5) Hematocrit 33.5 % (36.0-47.0) Mean Corpuscular Volume 100 fL (79-100) Mean Corpuscular Hemoglobin 33 pg (25-35) Mean Corpuscular Hemoglobin Concent 33 g/dL (31-37) Red Cell Distribution Width 15.1 % (11.5-14.5) Platelet Count 184 x10^3/uL (140-400) Neutrophils (%) (Auto) 84 % (31-73) Lymphocytes (%) (Auto) 8 % (24-48) Monocytes (%) (Auto) 8 % (0-9) Eosinophils (%) (Auto) 0 % (0-3) Basophils (%) (Auto) 1 % (0-3) Neutrophils # (Auto) 13.2 x10^3/uL (1.8-7.7) Lymphocytes # (Auto) 1.2 x10^3/uL (1.0-4.8) Monocytes # (Auto) 1.3 x10^3/uL (0.0-1.1) Eosinophils # (Auto) 0.0 x10^3/uL (0.0-0.7) Basophils # (Auto) 0.1 x10^3/uL (0.0-0.2) Segmented Neutrophils % 75 % (35-66) Band Neutrophils % 6 % (0-9) Lymphocytes % 4 % (24-48) Monocytes % 9 % (0-10) Eosinophils % 6 % (0-5) Platelet Estimate Adequate (ADEQUATE) Polychromasia Slight Anisocytosis Slight Hemoglobin A1c 8.3 % (4.8-5.6) Sodium Level 136 mmol/L (136-145) Potassium Level 5.3 mmol/L (3.5-5.1) Chloride Level 96 mmol/L (98-107) Carbon Dioxide Level 30 mmol/L (21-32) Anion Gap 10 (6-14) Blood Urea Nitrogen 41 mg/dL (7-20) Creatinine 6.6 mg/dL (0.6-1.0) Estimated GFR (Cockcroft-Gault) 6.1 BUN/Creatinine Ratio 6 (6-20) Glucose Level 382 mg/dL (70-99) Lactic Acid Level 3.1 mmol/L (0.4-2.0) Calcium Level 9.2 mg/dL (8.5-10.1) Total Bilirubin 0.7 mg/dL (0.2-1.0) Aspartate Amino Transf (AST/SGOT) 20 U/L (15-37) Alanine Aminotransferase (ALT/SGPT) 17 U/L (14-59) Alkaline Phosphatase 152 U/L (46-116) Total Protein 8.5 g/dL (6.4-8.2) Albumin 2.9 g/dL (3.4-5.0) Albumin/Globulin Ratio 0.5 (1.0-1.7) Lipase 87 U/L (73-393) Glucose (Fingerstick) 306 mg/dL (70-99) Test 07/03/19 14:50 07/03/19 16:47 07/03/19 22:45 07/04/19 03:30 Lactic Acid Level 2.5 mmol/L (0.4-2.0) 1.5 mmol/L (0.4-2.0) Glucose (Fingerstick) 310 mg/dL (70-99) 295 mg/dL (70-99) White Blood Count 10.9 x10^3/uL (4.0-11.0) Red Blood Count 2.81 x10^6/uL (3.50-5.40) Hemoglobin 9.5 g/dL (12.0-15.5) Hematocrit 28.4 % (36.0-47.0) Mean Corpuscular Volume 101 fL (79-100) Mean Corpuscular Hemoglobin 34 pg (25-35) Mean Corpuscular Hemoglobin Concent 33 g/dL (31-37) Red Cell Distribution Width 14.9 % (11.5-14.5) Platelet Count 164 x10^3/uL (140-400) Neutrophils (%) (Auto) 81 % (31-73) Lymphocytes (%) (Auto) 11 % (24-48) Monocytes (%) (Auto) 7 % (0-9) Eosinophils (%) (Auto) 0 % (0-3) Basophils (%) (Auto) 1 % (0-3) Neutrophils # (Auto) 8.9 x10^3/uL (1.8-7.7) Lymphocytes # (Auto) 1.2 x10^3/uL (1.0-4.8) Monocytes # (Auto) 0.8 x10^3/uL (0.0-1.1) Eosinophils # (Auto) 0.0 x10^3/uL (0.0-0.7) Basophils # (Auto) 0.0 x10^3/uL (0.0-0.2) Sodium Level 134 mmol/L (136-145) Potassium Level 4.4 mmol/L (3.5-5.1) Chloride Level 95 mmol/L (98-107) Carbon Dioxide Level 26 mmol/L (21-32) Anion Gap 13 (6-14) Blood Urea Nitrogen 50 mg/dL (7-20) Creatinine 7.5 mg/dL (0.6-1.0) Estimated GFR (Cockcroft-Gault) 5.3 Glucose Level 275 mg/dL (70-99) Calcium Level 8.2 mg/dL (8.5-10.1) Phosphorus Level 4.7 mg/dL (2.6-4.7) Magnesium Level 1.5 mg/dL (1.8-2.4) Troponin I Quantitative < 0.017 ng/mL (0.000-0.055) Albumin 2.3 g/dL (3.4-5.0) Thyroid Stimulating Hormone (TSH) 2.658 uIU/mL (0.358-3.74) Test 07/04/19 07:10 Glucose (Fingerstick) 199 mg/dL (70-99) Laboratory Tests Test 07/03/19 12:34 07/03/19 14:50 07/03/19 16:47 07/03/19 22:45 Glucose (Fingerstick) 306 mg/dL (70-99) 310 mg/dL (70-99) 295 mg/dL (70-99) Lactic Acid Level 2.5 mmol/L (0.4-2.0) Test 07/04/19 03:30 07/04/19 07:10 White Blood Count 10.9 x10^3/uL (4.0-11.0) Red Blood Count 2.81 x10^6/uL (3.50-5.40) Hemoglobin 9.5 g/dL (12.0-15.5) Hematocrit 28.4 % (36.0-47.0) Mean Corpuscular Volume 101 fL (79-100) Mean Corpuscular Hemoglobin 34 pg (25-35) Mean Corpuscular Hemoglobin Concent 33 g/dL (31-37) Red Cell Distribution Width 14.9 % (11.5-14.5) Platelet Count 164 x10^3/uL (140-400) Neutrophils (%) (Auto) 81 % (31-73) Lymphocytes (%) (Auto) 11 % (24-48) Monocytes (%) (Auto) 7 % (0-9) Eosinophils (%) (Auto) 0 % (0-3) Basophils (%) (Auto) 1 % (0-3) Neutrophils # (Auto) 8.9 x10^3/uL (1.8-7.7) Lymphocytes # (Auto) 1.2 x10^3/uL (1.0-4.8) Monocytes # (Auto) 0.8 x10^3/uL (0.0-1.1) Eosinophils # (Auto) 0.0 x10^3/uL (0.0-0.7) Basophils # (Auto) 0.0 x10^3/uL (0.0-0.2) Sodium Level 134 mmol/L (136-145) Potassium Level 4.4 mmol/L (3.5-5.1) Chloride Level 95 mmol/L (98-107) Carbon Dioxide Level 26 mmol/L (21-32) Anion Gap 13 (6-14) Blood Urea Nitrogen 50 mg/dL (7-20) Creatinine 7.5 mg/dL (0.6-1.0) Estimated GFR (Cockcroft-Gault) 5.3 Glucose Level 275 mg/dL (70-99) Lactic Acid Level 1.5 mmol/L (0.4-2.0) Calcium Level 8.2 mg/dL (8.5-10.1) Phosphorus Level 4.7 mg/dL (2.6-4.7) Magnesium Level 1.5 mg/dL (1.8-2.4) Troponin I Quantitative < 0.017 ng/mL (0.000-0.055) Albumin 2.3 g/dL (3.4-5.0) Thyroid Stimulating Hormone (TSH) 2.658 uIU/mL (0.358-3.74) Glucose (Fingerstick) 199 mg/dL (70-99) Assessment Assessment Problems Medical Problems: (1) Sepsis Status: Acute (2) UTI (lower urinary tract infection) Status: Acute Plan Plan of Care Problems Medical Problems: (1) Sepsis Status: Acute (2) UTI (lower urinary tract infection) Status: Acute TRINA العلي MD Jul 04, 2019 11:14
[2019-07-04 11:22] LABS: CHOLESTEROL/HDL RATIO 3.9
[2019-07-04 11:40] LABS: PROTHROMBIN TIME PATIENT 15.3 SEC (11.7-14.0)
[2019-07-04 11:45] LABS: D-DIMER 2.74 ug/mlFEU (0.00-0.50)
--- NOTE | 2019-07-04 12:27 | RAD ---
EXAM: Chest, single view. HISTORY: Atrial fibrillation. COMPARISON: 12/05/2018 FINDINGS: A frontal view of the chest obtained. There is stable likely chronic interstitial prominence There is no infiltrate, pleural effusion or pneumothorax. There is a stable cardiac silhouette and postoperative mediastinal changes. IMPRESSION: Stable likely chronic interstitial prominence. Electronically signed by: Jesica Stovall MD (07/04/2019 12:24 PM) [facility]
--- NOTE | 2019-07-04 13:32 | PDOC ---
[employer] PROGRESS NOTE Chief Complaint Chief Complaint Fever Leukocytosis Lactic acidosis UTI with sepsis ESRD on HD Hyperkalemia Hypoalbuminemia Anemia HTN History of Present Illness History of Present Illness 07/04/2019 Pt was seen and examined. Was resting comfortably on exam while receiving dialysis. No acute complaints. Vitals/I&O Vitals/I&O: Vital Signs Date Time Temp Pulse Resp B/P (MAP) Pulse Ox O2 Delivery O2 Flow Rate FiO2 07/04/19 08:00 Nasal Cannula 2.0 07/04/19 07:07 98.0 139 26 105/56 (72) 96 98.0 I & O 07/03/19 07/03/19 07/04/19 15:00 23:00 07:00 Intake Total 500 ml 120 ml Output Total 1 ml Balance 500 ml 119 ml Physical Exam General: Alert, Oriented X3, Cooperative Heart: Regular rate, Normal S1, Normal S2 Lungs: Clear Abdomen: Normal bowel sounds Extremities: No clubbing, No cyanosis Skin: No rashes, No breakdown, Other (AV fistua on left upper extremity is non erythematous, and in tact) Labs Labs: Laboratory Tests Test 07/03/19 14:50 07/03/19 16:47 07/03/19 22:45 07/04/19 03:30 Lactic Acid Level 2.5 mmol/L (0.4-2.0) 1.5 mmol/L (0.4-2.0) Glucose (Fingerstick) 310 mg/dL (70-99) 295 mg/dL (70-99) White Blood Count 10.9 x10^3/uL (4.0-11.0) Red Blood Count 2.81 x10^6/uL (3.50-5.40) Hemoglobin 9.5 g/dL (12.0-15.5) Hematocrit 28.4 % (36.0-47.0) Mean Corpuscular Volume 101 fL (79-100) Mean Corpuscular Hemoglobin 34 pg (25-35) Mean Corpuscular Hemoglobin Concent 33 g/dL (31-37) Red Cell Distribution Width 14.9 % (11.5-14.5) Platelet Count 164 x10^3/uL (140-400) Neutrophils (%) (Auto) 81 % (31-73) Lymphocytes (%) (Auto) 11 % (24-48) Monocytes (%) (Auto) 7 % (0-9) Eosinophils (%) (Auto) 0 % (0-3) Basophils (%) (Auto) 1 % (0-3) Neutrophils # (Auto) 8.9 x10^3/uL (1.8-7.7) Lymphocytes # (Auto) 1.2 x10^3/uL (1.0-4.8) Monocytes # (Auto) 0.8 x10^3/uL (0.0-1.1) Eosinophils # (Auto) 0.0 x10^3/uL (0.0-0.7) Basophils # (Auto) 0.0 x10^3/uL (0.0-0.2) Sodium Level 134 mmol/L (136-145) Potassium Level 4.4 mmol/L (3.5-5.1) Chloride Level 95 mmol/L (98-107) Carbon Dioxide Level 26 mmol/L (21-32) Anion Gap 13 (6-14) Blood Urea Nitrogen 50 mg/dL (7-20) Creatinine 7.5 mg/dL (0.6-1.0) Estimated GFR (Cockcroft-Gault) 5.3 Glucose Level 275 mg/dL (70-99) Calcium Level 8.2 mg/dL (8.5-10.1) Phosphorus Level 4.7 mg/dL (2.6-4.7) Magnesium Level 1.5 mg/dL (1.8-2.4) Troponin I Quantitative < 0.017 ng/mL (0.000-0.055) Albumin 2.3 g/dL (3.4-5.0) Triglycerides Level 181 mg/dL (0-150) Cholesterol Level 135 mg/dL (0-200) LDL Cholesterol, Calculated 64 mg/dL (0-100) VLDL Cholesterol, Calculated 36 mg/dL (0-40) Non-HDL Cholesterol Calculated 100 mg/dL (0-129) HDL Cholesterol 35 mg/dL (40-60) Cholesterol/HDL Ratio 3.9 Thyroid Stimulating Hormone (TSH) 2.658 uIU/mL (0.358-3.74) Test 07/04/19 07:10 07/04/19 10:55 Glucose (Fingerstick) 199 mg/dL (70-99) Prothrombin Time 15.3 SEC (11.7-14.0) Prothromb Time International Ratio 1.2 (0.8-1.1) D-Dimer (Arabella) 2.74 ug/mlFEU (0.00-0.50) Troponin I Quantitative 0.528 ng/mL (0.000-0.055) Review of Systems Review of Systems: Denies SOB Denies CP Assessment and Plan Assessmemt and Plan Problems Medical Problems: (1) Sepsis Status: Acute (2) UTI (lower urinary tract infection) Status: Acute Fever Leukocytosis Lactic acidosis UTI with sepsis ESRD on HD Hyperkalemia Hypoalbuminemia Anemia HTN Plan: 1) 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 Stat Troponin was slightly elevated. 5) DVT prophylaxis 6) PT/OT 7) Full Code Comment Review of Relevant I have reviewed the following items anastasiya (where applicable) has been applied. Medications: Current Medications Medications (Trade) Dose Ordered Sig/Claudette Route PRN Reason Start Time Stop Time Status Last Admin Dose Admin Iohexol (Omnipaque 240 Mg/ml) 30 ml 1X ONCE PO 07/03/19 13:45 07/03/19 13:46 DC 07/03/19 13:45 Iohexol (Omnipaque 300 Mg/ml) 75 ml 1X ONCE IV 07/03/19 13:45 07/03/19 13:46 DC 07/03/19 13:45 Vitamin B Complex/ Vitamin C (Funmi-Hannah) 1 tab DAILY PO 07/04/19 09:00 07/04/19 08:40 Simvastatin (Zocor) 40 mg QHS PO 07/03/19 21:00 07/03/19 22:17 Aspirin (Children'S Aspirin) 81 mg DAILYWBKFT PO 07/03/19 15:00 07/04/19 08:40 Insulin Glargine (Lantus Syringe) 6 unit QHS SQ 07/03/19 21:00 07/03/19 22:22 Insulin Human Lispro (HumaLOG) 6 units TIDWMEALS SQ 07/03/19 17:00 07/04/19 08:47 Calcium Acetate (Phoslo) 1,334 mg TIDWMEALS PO 07/03/19 17:00 07/04/19 08:40 Acetaminophen (Tylenol) 650 mg PRN Q6HRS PRN PO MILD PAIN / TEMP 07/03/19 16:45 07/04/19 03:23 Metoprolol Tartrate (Lopressor Vial) 5 mg 1X ONCE IVP 07/04/19 03:15 07/04/19 03:16 DC 07/04/19 03:49 Metoprolol Tartrate (Lopressor) 25 mg Q6HRS PO 07/04/19 03:15 07/04/19 05:44 Digoxin (Lanoxin) 500 mcg 1X ONCE IV 07/04/19 03:00 07/04/19 03:14 DC 07/04/19 03:11 Sodium Chloride 1,000 ml @ 1,000 mls/hr 1X ONCE IV 07/04/19 07:45 07/04/19 08:44 DC 07/04/19 07:53 Vancomycin HCl 1.25 gm/Sodium Chloride 250 ml @ 166.667 mls/hr 1X ONCE IV 07/04/19 08:30 07/04/19 09:59 DC 07/04/19 09:10 NIDIA SQUIRES III DO Jul 04, 2019 13:32
--- NOTE | 2019-07-04 14:34 | NUR ---
SS following up with discharge planning. Pt is from home with spouse and is currently requiring oxygen. No discharge needs noted at this time. SS will continue to follow for discharge planning.
--- NOTE | 2019-07-04 14:41 | PDOC2 ---
GI CONSULT Reason For Consult: CT showed porcelain GB HPI: HPI: 78 y/o female seen in dialysis. Admitted 07/03 w/ n/v and lower back pain that started the day before w/o precipitating events. Noted w/ leukocytosis, lactic acidosis, fever, possible UTI, and developed A Fib RVR. CT A/P for right flank pain showed stable porcelain gallbladder and GI asked to see for same. Currently feeling better. Typically no issues w/ vomiting or back pain. Denies reflux/heartburn, dysphagia, hematemesis, abd pain, diarrhea, constipation, hematochezia, melena, change in appetite, early satiety, bloating, or weight loss. No previous EGD. Had a colonoscopy 5-6 years ago. Before that, had surgery "to remove a colon tumor" - did not require chemo or radiation. Diverticulosis on imaging. Denies GB, liver, pancreas, and PUD history. On ASA. PMH: PMH: CAD, HTN, HLD, peripheral neuropathy, diverticulosis, anemia, ?colon cancer, ESRD, UTI, hydronephrosis, neurogenic bladder, DM, diabetic ulcers CABG, cataract removal, colon resection, ureteral stent placement, left ankle ORIF, left AV fistula, foot I&D, cystoscopies FH: Family History: No pertinent hx (denies cancers) Social History: Smoke: No ALCOHOL: none Drugs: None ROS: GEN: Denies fevers, chills, sweats HEENT: Denies blurred vision, sore throat CV: Denies chest pain RESP: Denies shortness of air, cough GI: Per HPI : Denies hematuria, dysuria ENDO: Denies weight changes NEURO: Denies confusion, dizziness MSK: Denies weakness, joint pain/swelling SKIN: Denies jaundice, pruritus Vitals: Vitals: Vital Signs Date Time Temp Pulse Resp B/P (MAP) Pulse Ox O2 Delivery O2 Flow Rate FiO2 07/04/19 08:00 Nasal Cannula 2.0 07/04/19 07:07 98.0 139 26 105/56 (72) 96 98.0 Labs: Labs: Laboratory Tests Test 07/03/19 14:50 07/03/19 16:47 07/03/19 22:45 07/04/19 03:30 Lactic Acid Level 2.5 mmol/L (0.4-2.0) 1.5 mmol/L (0.4-2.0) Glucose (Fingerstick) 310 mg/dL (70-99) 295 mg/dL (70-99) White Blood Count 10.9 x10^3/uL (4.0-11.0) Red Blood Count 2.81 x10^6/uL (3.50-5.40) Hemoglobin 9.5 g/dL (12.0-15.5) Hematocrit 28.4 % (36.0-47.0) Mean Corpuscular Volume 101 fL (79-100) Mean Corpuscular Hemoglobin 34 pg (25-35) Mean Corpuscular Hemoglobin Concent 33 g/dL (31-37) Red Cell Distribution Width 14.9 % (11.5-14.5) Platelet Count 164 x10^3/uL (140-400) Neutrophils (%) (Auto) 81 % (31-73) Lymphocytes (%) (Auto) 11 % (24-48) Monocytes (%) (Auto) 7 % (0-9) Eosinophils (%) (Auto) 0 % (0-3) Basophils (%) (Auto) 1 % (0-3) Neutrophils # (Auto) 8.9 x10^3/uL (1.8-7.7) Lymphocytes # (Auto) 1.2 x10^3/uL (1.0-4.8) Monocytes # (Auto) 0.8 x10^3/uL (0.0-1.1) Eosinophils # (Auto) 0.0 x10^3/uL (0.0-0.7) Basophils # (Auto) 0.0 x10^3/uL (0.0-0.2) Sodium Level 134 mmol/L (136-145) Potassium Level 4.4 mmol/L (3.5-5.1) Chloride Level 95 mmol/L (98-107) Carbon Dioxide Level 26 mmol/L (21-32) Anion Gap 13 (6-14) Blood Urea Nitrogen 50 mg/dL (7-20) Creatinine 7.5 mg/dL (0.6-1.0) Estimated GFR (Cockcroft-Gault) 5.3 Glucose Level 275 mg/dL (70-99) Calcium Level 8.2 mg/dL (8.5-10.1) Phosphorus Level 4.7 mg/dL (2.6-4.7) Magnesium Level 1.5 mg/dL (1.8-2.4) Troponin I Quantitative < 0.017 ng/mL (0.000-0.055) Albumin 2.3 g/dL (3.4-5.0) Triglycerides Level 181 mg/dL (0-150) Cholesterol Level 135 mg/dL (0-200) LDL Cholesterol, Calculated 64 mg/dL (0-100) VLDL Cholesterol, Calculated 36 mg/dL (0-40) Non-HDL Cholesterol Calculated 100 mg/dL (0-129) HDL Cholesterol 35 mg/dL (40-60) Cholesterol/HDL Ratio 3.9 Thyroid Stimulating Hormone (TSH) 2.658 uIU/mL (0.358-3.74) Test 07/04/19 07:10 07/04/19 10:55 Glucose (Fingerstick) 199 mg/dL (70-99) Prothrombin Time 15.3 SEC (11.7-14.0) Prothromb Time International Ratio 1.2 (0.8-1.1) D-Dimer (Arabella) 2.74 ug/mlFEU (0.00-0.50) Troponin I Quantitative 0.528 ng/mL (0.000-0.055) Allergies: Coded Allergies: latex (Verified Allergy, Intermediate, Rash, 12/30/17) Medications: Current Medications Medications (Trade) Dose Ordered Sig/Claudette Route PRN Reason Start Time Stop Time Status Last Admin Dose Admin Vitamin B Complex/ Vitamin C (Funmi-Hannah) 1 tab DAILY PO 07/04/19 09:00 07/04/19 08:40 Simvastatin (Zocor) 40 mg QHS PO 07/03/19 21:00 07/03/19 22:17 Aspirin (Children'S Aspirin) 81 mg DAILYWBKFT PO 07/03/19 15:00 07/04/19 08:40 Insulin Glargine (Lantus Syringe) 6 unit QHS SQ 07/03/19 21:00 07/03/19 22:22 Insulin Human Lispro (HumaLOG) 6 units TIDWMEALS SQ 07/03/19 17:00 07/04/19 08:47 Calcium Acetate (Phoslo) 1,334 mg TIDWMEALS PO 07/03/19 17:00 07/04/19 08:40 Acetaminophen (Tylenol) 650 mg PRN Q6HRS PRN PO MILD PAIN / TEMP 07/03/19 16:45 07/04/19 03:23 Metoprolol Tartrate (Lopressor Vial) 5 mg 1X ONCE IVP 07/04/19 03:15 07/04/19 03:16 DC 07/04/19 03:49 Metoprolol Tartrate (Lopressor) 25 mg Q6HRS PO 07/04/19 03:15 07/04/19 05:44 Digoxin (Lanoxin) 500 mcg 1X ONCE IV 07/04/19 03:00 07/04/19 03:14 DC 07/04/19 03:11 Sodium Chloride 1,000 ml @ 1,000 mls/hr 1X ONCE IV 07/04/19 07:45 07/04/19 08:44 DC 07/04/19 07:53 Vancomycin HCl 1.25 gm/Sodium Chloride 250 ml @ 166.667 mls/hr 1X ONCE IV 07/04/19 08:30 07/04/19 09:59 DC 07/04/19 09:10 Imaging: Imaging: CT A/P 07/03 IMPRESSION: 1. Bilateral hydronephrosis with extensive bilateral urothelial thickening and diffuse bladder wall thickening, nonspecific. Although this could be related to chronic infection or other inflammatory process, underlying bladder malignancy or urothelial malignancy is not excluded. Findings are similar to prior study. 2. Porcelain gallbladder, unchanged. This places the patient at future risk of gallbladder malignancy. If indicated, ultrasound or MRI may better evaluate. 3. Diverticulosis with no evidence of acute diverticulitis. 4. Healing left-sided pelvic fractures. CXR 07/04 IMPRESSION: Stable likely chronic interstitial prominence. 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 Increases risk for malignancy. Saw surgery here several years ago - recs to follow-up as outpt to discuss cholecystectomy which she does not recall. Reviewed w/ Dr. Ray - will ask surgery to comment. Will check for records at our office. Recheck B12. Note VQ scan ordered. JACKIE DON Jul 04, 2019 14:40
[2019-07-04 14:55] VITALS: BP 137/63
[2019-07-04] MEDS: LACTOBACILLUS RHAMNOSUS GG 1 CAPSULE. PO SCH ×2 (15:21→21:24)
--- NOTE | 2019-07-04 16:23 | CARD ---
MR#: [id number] Date of Study: 07/04/2019 Ordering Physician: DANIELLE THOMAS, Referring Physician: DANIELLE THOMAS, Tech: Michelle Peguero APPROVED REPORT EXAM: Two-dimensional and M-mode echocardiogram with Doppler and color Doppler. Other Information Quality : AverageHR: 90bpm INDICATION Atrial Fibrillation Surgery/Intervention CABG: Date: 2009 2D DIMENSIONS RVDd3.0 (2.9-3.5cm)Left Atrium(2D)4.2 (1.6-4.0cm) IVSd1.3 (0.7-1.1cm)Aortic Root(2D)3.1 (2.0-3.7cm) LVDd5.9 (3.9-5.9cm)LVOT Diameter2.1 (1.8-2.4cm) PWd1.1 (0.7-1.1cm)LVDs4.4 (2.5-4.0cm) FS (%) 25.6 %SV85.4 ml LVEF(%)49.7 (>50%) Aortic Valve AoV Peak Andry.145.9cm/sAoV VTI25.7cm AO Peak GR.8.5mmHgLVOT VTI 14.38cm AO Mean GR.5mmHg Mitral Valve MV E Cyoqlyvp62.3cm/sMV DECEL SIHG32bo MV A Kvnofexf75.0cm/sE/A Ratio1.0 TDI Lateral E' P. V7.40cm/sMedial E' P. V7.40cm/s E/Lateral E'11.8E/Medial E'11.8 Tricuspid Valve TR P. Mdredadm336iq/sRAP [id number] TR Peak Gr.[id number] Pulmonary Vein S1 Gncluqyg64.8cm/sS2 Udeqdtzv07.85cm/s D2 Zidtmgns02.9cm/sPVa [id number] LEFT VENTRICLE The left ventricle is normal size. There is mild to moderate concentric left ventricular hypertrophy. The left ventricular systolic function is normal. The Ejection Fraction is 50-55%. Septal motion con sistent with post-operative state. Transmitral Doppler flow pattern is Grade II-pseudonormal filling dynamics. RIGHT VENTRICLE The right ventricle is normal size. There is normal right ventricular wall thickness. The right ventr icular systolic function is normal. ATRIA The left atrium size is normal. The right atrium size is normal. The interatrial septum is intact wit h no evidence for an atrial septal defect or patent foramen ovale as noted on 2-D or Doppler imaging. AORTIC VALVE The aortic valve is thickened but opens well. Doppler and Color Flow revealed no significant aortic r egurgitation. There is no significant aortic valvular stenosis. MITRAL VALVE The mitral valve is normal in structure and function. There is no evidence of mitral valve prolapse. There is no mitral valve stenosis. Doppler and Color Flow revealed no mitral valve regurgitation note d. TRICUSPID VALVE The tricuspid valve is normal in structure and function. Doppler and Color Flow revealed trace tricus pid regurgitation with an estimated PAP of 27 mmHg. There is no tricuspid valve prolapse or vegetatio n. There is no tricuspid valve stenosis. PULMONIC VALVE The pulmonic valve is not well visualized. Doppler and Color Flow revealed no pulmonic valvular regur gitation. GREAT VESSELS The aortic root is normal in size. The IVC is normal in size and collapses >50% with inspiration. PERICARDIAL EFFUSION There is small left pleural effusion. There is no evidence of significant pericardial effusion. Critical Notification Critical Value: No <Conclusion> The left ventricular systolic function is normal. The Ejection Fraction is 50-55%. Septal motion consistent with post-operative state. Transmitral Doppler flow pattern is Grade II-pseudonormal filling dynamics. Trace tricuspid regurgitation with an estimated PAP of 27 mmHg. There is no evidence of significant pericardial effusion. Signed by : Terry Stevenson, Electronically Approved : 07/04/2019 16:23:01
--- NOTE | 2019-07-04 17:03 | RAD ---
VQ Scan: Clinical History: Atrial fibrillation right bundle-branch block. Technique: 10.3 mCi of xenon-133 was administered as an aerosol and spot views were obtained on a gamma camera for a Nuclear Medicine ventilation examination. 4.7 mCi of Tc 99m MAA was administered intravenously and spot views were obtained on the gamma camera for a Nuclear Medicine perfusion examination. Static images were reviewed as a V/Q scan in order to exclude pulmonary embolism. Findings: Mild retention of ventilation radiotracer in the bilateral lungs on the ventilation images. Nonsegmental defects identified in the bilateral lungs on the perfusion images. IMPRESSION: Low probability for pulmonary embolism. Electronically signed by: Tom Taveras MD (07/04/2019 5:00 PM) [id number]
[2019-07-04] MEDS: CEFEPIME HCL IV Push 1 GM VIAL. IVP SCH (17:06)
[2019-07-04] MEDS: SIMVASTATIN 40 MG TABLET. PO SCH (21:24)
[2019-07-04] MEDS: INSULIN GLARGINE SYRINGE. SQ SCH (21:30)
[2019-07-04 22:10] VITALS: BP 127/51
[2019-07-05 02:29] VITALS: BP 130/60
[2019-07-05] MEDS: METOPROLOL TART IMMED RELEASE 25 MG TABLET. PO SCH ×3 (05:47→17:16)
[2019-07-05 06:24] LABS: ALBUMIN 2.2 g/dL (3.4-5.0); ALBUMIN/GLOBULIN RATIO 0.4 (1.0-1.7); CALCIUM 8.7 mg/dL (8.5-10.1); CREATININE 5.2 mg/dL (0.6-1.0); PHOSPHORUS 4.7 mg/dL (2.6-4.7); POTASSIUM 4.1 mmol/L (3.5-5.1); TOTAL BILIRUBIN 0.5 mg/dL (0.2-1.0); TOTAL PROTEIN 7.5 g/dL (6.4-8.2)
[2019-07-05 07:00] VITALS: BP 125/58
--- NOTE | 2019-07-05 07:59 | PDOC ---
Infectious Disease Note Subjective Subjective feeling much better ROS ROS no n/v/d/sob Vital Sign Vital Signs Vital Signs Date Time Temp Pulse Resp B/P (MAP) Pulse Ox O2 Delivery O2 Flow Rate FiO2 07/05/19 05:47 81 125/60 07/05/19 02:29 98.7 21 96 Room Air 98.7 07/04/19 20:00 2.0 Physical Exam PHYSICAL EXAM GENERAL: Alert, oriented female, not in any distress. VITAL SIGNS: Stable HEENT: NAD. NECK: Supple, no JVP, no lymphadenopathy. LUNGS: Clear. HEART: S1, S2 regular. ABDOMEN: Benign. EXTREMITIES: No edema, cyanosis. SKIN: Unremarkable. NEUROLOGIC: The patient is neurologically alert, awake and appropriate. No focal neurologic deficit. Labs Lab Laboratory Tests Test 07/04/19 10:55 07/04/19 15:03 07/04/19 15:50 07/04/19 16:40 Prothrombin Time 15.3 SEC (11.7-14.0) Prothromb Time International Ratio 1.2 (0.8-1.1) D-Dimer (Arabella) 2.74 ug/mlFEU (0.00-0.50) Iron Level 18 ug/dL (50-170) Total Iron Binding Capacity 167 ug/dL (250-450) Iron Saturation 11 % (15-34) Troponin I Quantitative 0.528 ng/mL (0.000-0.055) 0.590 ng/mL (0.000-0.055) Vitamin B12 Level 249 pg/mL (247-911) Glucose (Fingerstick) 132 mg/dL (70-99) 184 mg/dL (70-99) Test 07/04/19 20:49 07/05/19 05:37 Glucose (Fingerstick) 234 mg/dL (70-99) Sodium Level 137 mmol/L (136-145) Potassium Level 4.1 mmol/L (3.5-5.1) Chloride Level 99 mmol/L (98-107) Carbon Dioxide Level 27 mmol/L (21-32) Anion Gap 11 (6-14) Blood Urea Nitrogen 28 mg/dL (7-20) Creatinine 5.2 mg/dL (0.6-1.0) Estimated GFR (Cockcroft-Gault) 8.0 BUN/Creatinine Ratio 5 (6-20) Glucose Level 167 mg/dL (70-99) Calcium Level 8.7 mg/dL (8.5-10.1) Phosphorus Level 4.7 mg/dL (2.6-4.7) Magnesium Level 1.9 mg/dL (1.8-2.4) Total Bilirubin 0.5 mg/dL (0.2-1.0) Aspartate Amino Transf (AST/SGOT) 15 U/L (15-37) Alanine Aminotransferase (ALT/SGPT) 10 U/L (14-59) Alkaline Phosphatase 103 U/L (46-116) Total Protein 7.5 g/dL (6.4-8.2) Albumin 2.2 g/dL (3.4-5.0) Albumin/Globulin Ratio 0.4 (1.0-1.7) Micro BC neg Urine with G neg sandip Objective Assessment 1. Fever. 2. Leukocytosis. 3. Lactic acidosis. 4. Urinary tract infection with sepsis. 5. Bilateral hydronephrosis, chronic. 6. End-stage renal disease, on hemodialysis. Plan Plan of Care cefepime and d/c vanc check cultures supportive care d/w daughter ANA CRISTINA العلي MD Jul 05, 2019 07:59
[2019-07-05] MEDS: ASPIRIN CHEWABLE 81 MG TABLET. PO SCH (09:14)
[2019-07-05] MEDS: LACTOBACILLUS RHAMNOSUS GG 1 CAPSULE. PO SCH ×2 (09:15→20:35)
[2019-07-05] MEDS: CALCIUM ACETATE 667 MG CAPSULE PO SCH ×3 (09:15→17:16)
[2019-07-05] MEDS: FOLIC/VIT B COMP W-C (RENAL) TABLET. PO SCH (09:15)
[2019-07-05] MEDS: CEFEPIME HCL IV Push 1 GM VIAL. IVP SCH (09:16)
[2019-07-05] MEDS: INSULIN LISPRO 300 UNITS/3 ML VIAL. SQ SCH ×3 (09:27→17:00)
--- NOTE | 2019-07-05 09:44 | PDOC ---
SUBJECTIVE ROS Follow-up for ESRD on hemodialysis Patient claims she is feeling well overall. Denies nausea vomiting. She thinks her flank pain has resolved however when examined she did have some amount of right CVA tenderness. CVS: no Orthopnea, no CP RESP: no SOB, no CARABALLO GI: no Nausea, no Vomiting : no Dysuria, no Urgency OBJECTIVE Vital Signs Vital Signs Date Time Temp Pulse Resp B/P (MAP) Pulse Ox O2 Delivery O2 Flow Rate FiO2 07/05/19 07:00 98.7 80 18 125/58 (80) 96 Nasal Cannula 98.7 07/04/19 20:00 2.0 I & 0 Intake and Output 07/05/19 07:00 Intake Total 1020 ml Balance 1020 ml Intake Oral 1020 ml # Voids 2 # Bowel Movements 3 PHYSICAL EXAM Physical Exam General Appearance: Awake Alert Oriented x 3 In no Distress Eyes: VIsion Unchanged Conjunctiva Normal EN: No EN Drainage Mucous Memb. moist Neck: no JVD min JVP Supple no Thyromegaly CVS: S1 S2 soft Murmur No Gallop No Rub no Edema Resp: no Rales no Rhonchi no Acc. Muscle use GI: BAS +ve NO Bruit Non Tender Non Distended : Minimal Rt CVA tenderness; no Suprapubic Tenderness Assessment & Plan ESRD: Current FLuid and electrolyte status does not necessitate emergent need for Dialysis. Will continue on Tuesday schedule. Hyperkalemia poa: Now resolved Hypoalbuminemia: Patient claims she's eating and drinking well. Sugars are noted to be elevated. A1c noted suggesting poorly controlled diabetes. catabolic state due to poorly controlled diabetes cannot be ruled out Lactic acidemia: Now resolved low-grade fevers: Infectious disease treating. Suspect right pyelonephritis Anemia of chronic kidney disease: Start EPO as ordered for hemoglobin drops below 10 HTN: Current BP meds reviewed. Early remains well controlled Bone & Mineral: Follow phosphorus level and alter binder regimen as needed Possible urinary tract infection /pyelonephritis Await cultures. Defer to ID. Given signs of chronic inflammation of her urinary tract, she may need to be seen by urology as an outpatient. Refer to DIMITRI Meraz gallbladder: I agree with general surgery evaluation Discussed Plan of Care and prognosis etc. at length with family (daughter at bedside). COMMENT/RELEVANT DATA Meds Current Medications Medications (Trade) Dose Ordered Sig/Claudette Start Time Stop Time Status Last Admin Dose Admin Acetaminophen (Tylenol) 650 mg PRN Q6HRS PRN 07/03/19 16:45 07/04/19 22:10 650 MG Albumin Human 200 ml @ 200 mls/hr 1X PRN PRN 07/04/19 09:45 07/04/19 15:44 DC Albuterol Sulfate (Ventolin Neb Soln) 2.5 mg PRN Q6HRS PRN 07/03/19 14:30 Aspirin (Children'S Aspirin) 81 mg DAILYWBKFT 07/03/19 15:00 07/04/19 08:40 81 MG Calcium Acetate (Phoslo) 1,334 mg TIDWMEALS 07/03/19 17:00 07/04/19 17:06 1,334 MG Cefepime HCl (Maxipime) 1 gm Q24H 07/04/19 09:00 07/04/19 17:06 1 GM Ceftriaxone Sodium (Rocephin) 1 gm 1X ONCE 07/03/19 10:15 07/03/19 10:18 DC 07/03/19 10:26 1 GM Digoxin (Lanoxin) 500 mcg 1X ONCE 07/04/19 03:00 07/04/19 03:14 DC 07/04/19 03:11 500 MCG Info (CONTRAST GIVEN -- Rx MONITORING) 1 each PRN DAILY PRN 07/03/19 13:45 07/05/19 13:44 Info (PHARMACY MONITORING -- do not chart) 1 each PRN DAILY PRN 07/04/19 09:45 Insulin Glargine (Lantus Syringe) 6 unit QHS 07/03/19 21:00 07/04/19 21:30 6 UNIT Insulin Human Lispro (HumaLOG) 6 units TIDWMEALS 07/03/19 17:00 07/04/19 17:20 6 UNITS Iohexol (Omnipaque 240 Mg/ml) 30 ml 1X ONCE 07/03/19 13:45 07/03/19 13:46 DC 07/03/19 13:45 30 ML Iohexol (Omnipaque 300 Mg/ml) 75 ml 1X ONCE 07/03/19 13:45 07/03/19 13:46 DC 07/03/19 13:45 75 ML Lactobacillus Rhamnosus (Culturelle) 1 cap BID 07/04/19 10:00 07/04/19 21:24 1 CAP Magnesium Sulfate 50 ml @ 25 mls/hr PRN DAILY PRN 07/03/19 12:45 07/04/19 23:25 25 MLS/HR Metoprolol Tartrate (Lopressor Vial) 5 mg 1X ONCE 07/04/19 03:15 07/04/19 03:16 DC 07/04/19 03:49 5 MG Metoprolol Tartrate (Lopressor) 25 mg Q6HRS 07/04/19 03:15 07/05/19 05:47 25 MG Non-Formulary Medication 1 ea PRN Q6HRS PRN 07/03/19 14:00 UNV Ondansetron HCl (Zofran) 4 mg 1X ONCE 07/03/19 09:15 07/03/19 09:17 DC 07/03/19 09:50 4 MG Simvastatin (Zocor) 40 mg QHS 07/03/19 21:00 07/04/19 21:24 40 MG Sodium Polystyrene Sulfonate (Kayexalate) 30 gm 1X ONCE 07/03/19 12:45 07/03/19 12:46 DC 07/03/19 13:30 30 GM Sodium Chloride 1,000 ml @ 400 mls/hr Q2H30M PRN 07/04/19 09:42 07/04/19 21:41 DC Vancomycin HCl 1.25 gm/Sodium Chloride 250 ml @ 166.667 mls/hr 1X ONCE 07/04/19 08:30 07/04/19 09:59 DC 07/04/19 09:10 166.667 MLS/HR Vitamin B Complex/ Vitamin C (Funmi-Hannah) 1 tab DAILY 07/04/19 09:00 07/04/19 08:40 1 TAB Lab Laboratory Tests Test 07/04/19 10:55 07/04/19 15:03 07/04/19 15:50 07/04/19 16:40 Prothrombin Time 15.3 SEC (11.7-14.0) Prothromb Time International Ratio 1.2 (0.8-1.1) D-Dimer (Arabella) 2.74 ug/mlFEU (0.00-0.50) Iron Level 18 ug/dL (50-170) Total Iron Binding Capacity 167 ug/dL (250-450) Iron Saturation 11 % (15-34) Troponin I Quantitative 0.528 ng/mL (0.000-0.055) 0.590 ng/mL (0.000-0.055) Vitamin B12 Level 249 pg/mL (247-911) Glucose (Fingerstick) 132 mg/dL (70-99) 184 mg/dL (70-99) Test 07/04/19 20:49 07/05/19 05:37 07/05/19 08:15 Glucose (Fingerstick) 234 mg/dL (70-99) 206 mg/dL (70-99) Sodium Level 137 mmol/L (136-145) Potassium Level 4.1 mmol/L (3.5-5.1) Chloride Level 99 mmol/L (98-107) Carbon Dioxide Level 27 mmol/L (21-32) Anion Gap 11 (6-14) Blood Urea Nitrogen 28 mg/dL (7-20) Creatinine 5.2 mg/dL (0.6-1.0) Estimated GFR (Cockcroft-Gault) 8.0 BUN/Creatinine Ratio 5 (6-20) Glucose Level 167 mg/dL (70-99) Calcium Level 8.7 mg/dL (8.5-10.1) Phosphorus Level 4.7 mg/dL (2.6-4.7) Magnesium Level 1.9 mg/dL (1.8-2.4) Total Bilirubin 0.5 mg/dL (0.2-1.0) Aspartate Amino Transf (AST/SGOT) 15 U/L (15-37) Alanine Aminotransferase (ALT/SGPT) 10 U/L (14-59) Alkaline Phosphatase 103 U/L (46-116) Total Protein 7.5 g/dL (6.4-8.2) Albumin 2.2 g/dL (3.4-5.0) Albumin/Globulin Ratio 0.4 (1.0-1.7) Results All relevant outside records, renal labs, imaging studies, telemetry/EKG's were reviewed. TRINA العلي MD Jul 05, 2019 09:44
[2019-07-05 09:54] LABS: BASO % 1 % (0-3); EOS # 0.2 x10^3/uL (0.0-0.7); EOS % 2 % (0-3); HEMATOCRIT 27.2 % (36.0-47.0); HEMOGLOBIN 9.2 g/dL (12.0-15.5); LYMPH % 12 % (24-48); MEAN CORPUSCULAR HEMOGLOBIN 34 pg (25-35); MEAN CORPUSCULAR HGB CONC 34 g/dL (31-37); MEAN CORPUSCULAR VOLUME 100 fL (79-100); MONO # 0.5 x10^3/uL (0.0-1.1); MONO % 6 % (0-9); NEUT # 6.8 x10^3/uL (1.8-7.7); NEUT % 80 % (31-73); PLATELET COUNT 172 x10^3/uL (140-400); RED BLOOD COUNT 2.71 x10^6/uL (3.50-5.40); RED CELL DISTRIBUTION WIDTH 14.7 % (11.5-14.5); WHITE BLOOD COUNT 8.5 x10^3/uL (4.0-11.0)
--- NOTE | 2019-07-05 10:29 | PDOC2 ---
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--[place] [address] Blake, elective enoch--appears did not FU denies pain, nausea, tolerating diet currently Past Medical History Cardiovascular: CAD, HTN, Hyperlipidemia CENTRAL NERVOUS SYSTEM: Periperal neuropathy GI: Diverticulosis Heme/Onc: Anemia NOS, Cancer (colon) Hepatobiliary: No pertinent hx Psych: No pertinent hx Musculoskeletal: Osteoarthritis Rheumatologic: No pertinent hx Infectious disease: Other (ESBL) ENT: Other (cataract) Renal/: Chronic renal failure (ESRD), UTI, Other (hydronephrosis; neurogenic bladder) Endocrine: Diabetes (2) Dermatology: Other (diabetes ulcers) Past Surgical History Past Surgical History: CABG, Cataract Removal, Colectomy, Other (ureteral stent placement; left ankle ORIF; LA AV dialysis fistula; Foot I & D) Family History Family History: Hypertension Social History No ALCOHOL: none Drugs: None Lives: with Family Current Problem List Problem List Problems Medical Problems: (1) Sepsis Status: Acute (2) UTI (lower urinary tract infection) Status: Acute Current Medications Current Medications Current Medications Sodium Chloride 500 ml @ 500 mls/hr 1X ONCE IV Last administered on 07/03/19at 09:50; Start 07/03/19 at 09:15; Stop 07/03/19 at 10:14; Status DC Ondansetron HCl (Zofran) 4 mg 1X ONCE IV Last administered on 07/03/19at 09:50; Start 07/03/19 at 09:15; Stop 07/03/19 at 09:17; Status DC Ceftriaxone Sodium (Rocephin) 1 gm 1X ONCE IVP Last administered on 07/03/19at 10:26; Start 07/03/19 at 10:15; Stop 07/03/19 at 10:18; Status DC Sodium Chloride 500 ml @ 500 mls/hr 1X ONCE IV Last administered on 07/03/19at 11:47; Start 07/03/19 at 11:45; Stop 07/03/19 at 12:44; Status DC Magnesium Sulfate 50 ml @ 25 mls/hr PRN DAILY PRN IV for Mag < 1.7 on am labs Last administered on 07/04/19at 23:25; Start 07/03/19 at 12:45 Sodium Polystyrene Sulfonate (Kayexalate) 30 gm 1X ONCE PO Last administered on 07/03/19 13:30; Start 07/03/19 at 12:45; Stop 07/03/19 at 12:46; Status DC Sodium Chloride 500 ml @ 0 mls/hr 1X ONCE IV Last administered on 07/03/19at 12:45; Start 07/03/19 at 12:45; Stop 07/03/19 at 12:51; Status DC Iohexol (Omnipaque 240 Mg/ml) 30 ml 1X ONCE PO Last administered on 07/03/19 13:45; Start 07/03/19 at 13:45; Stop 07/03/19 at 13:46; Status DC Iohexol (Omnipaque 300 Mg/ml) 75 ml 1X ONCE IV Last administered on 07/03/19 13:45; Start 07/03/19 at 13:45; Stop 07/03/19 at 13:46; Status DC Info (CONTRAST GIVEN -- Rx MONITORING) 1 each PRN DAILY PRN MC SEE COMMENTS; Start 07/03/19 at 13:45; Stop 07/05/19 at 13:44 Vitamin B Complex/ Vitamin C (Funmi-Hannah) 1 tab DAILY PO Last administered on 07/05/19 09:15; Start 07/04/19 at 09:00 Simvastatin (Zocor) 40 mg QHS PO Last administered on 07/04/19 21:24; Start 07/03/19 at 21:00 Aspirin (Children'S Aspirin) 81 mg DAILYWBKFT PO Last administered on 07/05/19 09:14; Start 07/03/19 at 15:00 Insulin Glargine (Lantus Syringe) 6 unit QHS SQ Last administered on 07/04/19 21:30; Start 07/03/19 at 21:00 Insulin Human Lispro (HumaLOG) 6 units TIDWMEALS SQ Last administered on 07/05/19 09:27; Start 07/03/19 at 17:00 Calcium Acetate (Phoslo) 1,334 mg TIDWMEALS PO Last administered on 07/05/19at 09:15; Start 07/03/19 at 17:00 Non-Formulary Medication 1 ea PRN Q6HRS PRN INH SHORTNESS OF BREATH; Start 07/03/19 at 14:00; Status UNV Albuterol Sulfate (Ventolin Neb Soln) 2.5 mg PRN Q6HRS PRN NEB SHORTNESS OF BREATH; Start 07/03/19 at 14:30 Acetaminophen (Tylenol) 650 mg PRN Q6HRS PRN PO MILD PAIN / TEMP Last administered on 07/04/19at 22:10; Start 07/03/19 at 16:45 Metoprolol Tartrate (Lopressor Vial) 5 mg 1X ONCE IVP Last administered on 07/04/19at 03:49; Start 07/04/19 at 03:15; Stop 07/04/19 at 03:16; Status DC Metoprolol Tartrate (Lopressor) 25 mg Q6HRS PO Last administered on 07/05/19 05:47; Start 07/04/19 at 03:15 Digoxin (Lanoxin) 500 mcg 1X ONCE IV Last administered on 07/04/19 03:11; Start 07/04/19 at 03:00; Stop 07/04/19 at 03:14; Status DC Sodium Chloride 1,000 ml @ 1,000 mls/hr 1X ONCE IV Last administered on 07/04/19at 07:53; Start 07/04/19 at 07:45; Stop 07/04/19 at 08:44; Status DC Vancomycin HCl 1.25 gm/Sodium Chloride 250 ml @ 166.667 mls/hr 1X ONCE IV Last administered on 07/04/19at 09:10; Start 07/04/19 at 08:30; Stop 07/04/19 at 09:59; Status DC Cefepime HCl (Maxipime) 1 gm Q24H IVP Last administered on 07/05/19 09:16; Start 07/04/19 at 09:00 Lactobacillus Rhamnosus (Culturelle) 1 cap BID PO Last administered on 07/05/19at 09:15; Start 07/04/19 at 10:00 Sodium Chloride 1,000 ml @ 1,000 mls/hr Q1H PRN IV hypotension; Start 07/04/19 at 09:42; Stop 07/04/19 at 15:41; Status DC Albumin Human 200 ml @ 200 mls/hr 1X PRN PRN IV Hypotension; Start 07/04/19 at 09:45; Stop 07/04/19 at 15:44; Status DC Sodium Chloride 1,000 ml @ 400 mls/hr Q2H30M PRN IV PATENCY; Start 07/04/19 at 09:42; Stop 07/04/19 at 21:41; Status DC Info (PHARMACY MONITORING -- do not chart) 1 each PRN DAILY PRN MC SEE COMMENTS; Start 07/04/19 at 09:45; Status UNV Info (PHARMACY MONITORING -- do not chart) 1 each PRN DAILY PRN MC SEE COMMENTS; Start 07/04/19 at 09:45 Darbepoetin Hernandez (ARANESP for DIALYSIS PTS) 60 mcg WEEKLYHS SQ ; Start 07/05/19 at 21:00 Active Scripts Active Culturelle (Lactobacillus Rhamnosus Gg) 1 Each Cap.sprink 1 Cap PO BID 30 Days Acetaminophen 500 Mg Tablet 500 Mg PO PRN Q6HRS PRN 10 Days Doxycycline Hyclate 100 Mg Tablet 100 Mg PO BID 14 Days Amox Tr-K Clv 500-125 Mg Tab (Amoxicillin/Potassium Clav) 1 Each Tablet 1 Tab PO DAILY 14 Days Estrace (Estradiol) 42.5 Gm Cream.appl 1 Scotty VG 3X/WEEK 14 Days Reported Funmi-Hannah Rx Tablet (Vit B Cmplx 3/Fa/Vit C/Biotin) 1 Each Tablet 1 Each PO DAILY Novolog (Insulin Aspart) 100 Unit/1 Ml Cartridge 6 Unit SQ TIDAC Lantus Solostar (Insulin Glargine,Hum.rec.anlog) 100 Unit/1 Ml Insuln.pen 6 Unit SQ QHS [regrenex] TOP DAILY PRN Calcium Acetate 667 Mg Tablet 2 Cap PO TIDAC Aspir 81 (Aspirin) 81 Mg Tablet. 1 Tab PO DAILY08 Allergies Allergies: Coded Allergies: latex (Verified Allergy, Intermediate, Rash, 12/30/17) ROS General: No: Chills, Other (fevers) PSYCHOLOGICAL ROS: No: Anxiety, Depression Eyes: No Blurry vision, No Double vision HEENT: No: Heacaches, Sore Throat Hematological and Lymphatic: No: Bleeding Problems, Blood Clots Respiratory: No: Cough, Shortness of breath Cardiovascular: No Chest Pain, No Palpitations Gastrointestinal: Yes Other (see hpi) Genitourinary: No Dysuria, No Retention Musculoskeletal: No Joint Pain Neurological: No Impaired Coord/balance, No Numbness/Tingling Skin: No Pruritus, No Rash Physical Exam General: Alert, Oriented X3, Cooperative, No acute distress HEENT: PERRLA, Mucous membr. moist/pink Lungs: Clear to auscultation, Normal air movement Heart: Regular rate, Normal S1, Normal S2 Abdomen: Soft, No tenderness, No hepatosplenomegaly Extremities: No clubbing, No cyanosis Skin: No rashes, No breakdown Neuro: Normal speech, Sensation intact Psych/Mental Status: Mental status NL, Mood NL MUSCULOSKELETAL: No deformity, No swelling Vitals VITALS Vital Signs Date Time Temp Pulse Resp B/P (MAP) Pulse Ox O2 Delivery O2 Flow Rate FiO2 07/05/19 07:00 98.7 80 18 125/58 (80) 96 Nasal Cannula 98.7 07/04/19 20:00 2.0 Labs Labs Laboratory Tests Test 07/03/19 12:34 07/03/19 14:50 07/03/19 16:47 07/03/19 22:45 Glucose (Fingerstick) 306 mg/dL (70-99) 310 mg/dL (70-99) 295 mg/dL (70-99) Lactic Acid Level 2.5 mmol/L (0.4-2.0) Test 07/04/19 03:30 07/04/19 07:10 07/04/19 10:55 07/04/19 15:03 White Blood Count 10.9 x10^3/uL (4.0-11.0) Red Blood Count 2.81 x10^6/uL (3.50-5.40) Hemoglobin 9.5 g/dL (12.0-15.5) Hematocrit 28.4 % (36.0-47.0) Mean Corpuscular Volume 101 fL (79-100) Mean Corpuscular Hemoglobin 34 pg (25-35) Mean Corpuscular Hemoglobin Concent 33 g/dL (31-37) Red Cell Distribution Width 14.9 % (11.5-14.5) Platelet Count 164 x10^3/uL (140-400) Neutrophils (%) (Auto) 81 % (31-73) Lymphocytes (%) (Auto) 11 % (24-48) Monocytes (%) (Auto) 7 % (0-9) Eosinophils (%) (Auto) 0 % (0-3) Basophils (%) (Auto) 1 % (0-3) Neutrophils # (Auto) 8.9 x10^3/uL (1.8-7.7) Lymphocytes # (Auto) 1.2 x10^3/uL (1.0-4.8) Monocytes # (Auto) 0.8 x10^3/uL (0.0-1.1) Eosinophils # (Auto) 0.0 x10^3/uL (0.0-0.7) Basophils # (Auto) 0.0 x10^3/uL (0.0-0.2) Sodium Level 134 mmol/L (136-145) Potassium Level 4.4 mmol/L (3.5-5.1) Chloride Level 95 mmol/L (98-107) Carbon Dioxide Level 26 mmol/L (21-32) Anion Gap 13 (6-14) Blood Urea Nitrogen 50 mg/dL (7-20) Creatinine 7.5 mg/dL (0.6-1.0) Estimated GFR (Cockcroft-Gault) 5.3 Glucose Level 275 mg/dL (70-99) Lactic Acid Level 1.5 mmol/L (0.4-2.0) Calcium Level 8.2 mg/dL (8.5-10.1) Phosphorus Level 4.7 mg/dL (2.6-4.7) Magnesium Level 1.5 mg/dL (1.8-2.4) Troponin I Quantitative < 0.017 ng/mL (0.000-0.055) 0.528 ng/mL (0.000-0.055) Albumin 2.3 g/dL (3.4-5.0) Triglycerides Level 181 mg/dL (0-150) Cholesterol Level 135 mg/dL (0-200) LDL Cholesterol, Calculated 64 mg/dL (0-100) VLDL Cholesterol, Calculated 36 mg/dL (0-40) Non-HDL Cholesterol Calculated 100 mg/dL (0-129) HDL Cholesterol 35 mg/dL (40-60) Cholesterol/HDL Ratio 3.9 Thyroid Stimulating Hormone (TSH) 2.658 uIU/mL (0.358-3.74) Glucose (Fingerstick) 199 mg/dL (70-99) 132 mg/dL (70-99) Prothrombin Time 15.3 SEC (11.7-14.0) Prothromb Time International Ratio 1.2 (0.8-1.1) D-Dimer (Arabella) 2.74 ug/mlFEU (0.00-0.50) Iron Level 18 ug/dL (50-170) Total Iron Binding Capacity 167 ug/dL (250-450) Iron Saturation 11 % (15-34) Vitamin B12 Level 249 pg/mL (247-911) Test 07/04/19 15:50 07/04/19 16:40 07/04/19 20:49 07/05/19 05:37 Troponin I Quantitative 0.590 ng/mL (0.000-0.055) Glucose (Fingerstick) 184 mg/dL (70-99) 234 mg/dL (70-99) Sodium Level 137 mmol/L (136-145) Potassium Level 4.1 mmol/L (3.5-5.1) Chloride Level 99 mmol/L (98-107) Carbon Dioxide Level 27 mmol/L (21-32) Anion Gap 11 (6-14) Blood Urea Nitrogen 28 mg/dL (7-20) Creatinine 5.2 mg/dL (0.6-1.0) Estimated GFR (Cockcroft-Gault) 8.0 BUN/Creatinine Ratio 5 (6-20) Glucose Level 167 mg/dL (70-99) Calcium Level 8.7 mg/dL (8.5-10.1) Phosphorus Level 4.7 mg/dL (2.6-4.7) Magnesium Level 1.9 mg/dL (1.8-2.4) Total Bilirubin 0.5 mg/dL (0.2-1.0) Aspartate Amino Transf (AST/SGOT) 15 U/L (15-37) Alanine Aminotransferase (ALT/SGPT) 10 U/L (14-59) Alkaline Phosphatase 103 U/L (46-116) Total Protein 7.5 g/dL (6.4-8.2) Albumin 2.2 g/dL (3.4-5.0) Albumin/Globulin Ratio 0.4 (1.0-1.7) Test 07/05/19 08:15 07/05/19 09:30 Glucose (Fingerstick) 206 mg/dL (70-99) White Blood Count 8.5 x10^3/uL (4.0-11.0) Red Blood Count 2.71 x10^6/uL (3.50-5.40) Hemoglobin 9.2 g/dL (12.0-15.5) Hematocrit 27.2 % (36.0-47.0) Mean Corpuscular Volume 100 fL (79-100) Mean Corpuscular Hemoglobin 34 pg (25-35) Mean Corpuscular Hemoglobin Concent 34 g/dL (31-37) Red Cell Distribution Width 14.7 % (11.5-14.5) Platelet Count 172 x10^3/uL (140-400) Neutrophils (%) (Auto) 80 % (31-73) Lymphocytes (%) (Auto) 12 % (24-48) Monocytes (%) (Auto) 6 % (0-9) Eosinophils (%) (Auto) 2 % (0-3) Basophils (%) (Auto) 1 % (0-3) Neutrophils # (Auto) 6.8 x10^3/uL (1.8-7.7) Lymphocytes # (Auto) 1.0 x10^3/uL (1.0-4.8) Monocytes # (Auto) 0.5 x10^3/uL (0.0-1.1) Eosinophils # (Auto) 0.2 x10^3/uL (0.0-0.7) Basophils # (Auto) 0.0 x10^3/uL (0.0-0.2) Laboratory Tests Test 07/04/19 10:55 07/04/19 15:03 07/04/19 15:50 07/04/19 16:40 Prothrombin Time 15.3 SEC (11.7-14.0) Prothromb Time International Ratio 1.2 (0.8-1.1) D-Dimer (Arabella) 2.74 ug/mlFEU (0.00-0.50) Iron Level 18 ug/dL (50-170) Total Iron Binding Capacity 167 ug/dL (250-450) Iron Saturation 11 % (15-34) Troponin I Quantitative 0.528 ng/mL (0.000-0.055) 0.590 ng/mL (0.000-0.055) Vitamin B12 Level 249 pg/mL (247-911) Glucose (Fingerstick) 132 mg/dL (70-99) 184 mg/dL (70-99) Test 07/04/19 20:49 07/05/19 05:37 07/05/19 08:15 07/05/19 09:30 Glucose (Fingerstick) 234 mg/dL (70-99) 206 mg/dL (70-99) Sodium Level 137 mmol/L (136-145) Potassium Level 4.1 mmol/L (3.5-5.1) Chloride Level 99 mmol/L (98-107) Carbon Dioxide Level 27 mmol/L (21-32) Anion Gap 11 (6-14) Blood Urea Nitrogen 28 mg/dL (7-20) Creatinine 5.2 mg/dL (0.6-1.0) Estimated GFR (Cockcroft-Gault) 8.0 BUN/Creatinine Ratio 5 (6-20) Glucose Level 167 mg/dL (70-99) Calcium Level 8.7 mg/dL (8.5-10.1) Phosphorus Level 4.7 mg/dL (2.6-4.7) Magnesium Level 1.9 mg/dL (1.8-2.4) Total Bilirubin 0.5 mg/dL (0.2-1.0) Aspartate Amino Transf (AST/SGOT) 15 U/L (15-37) Alanine Aminotransferase (ALT/SGPT) 10 U/L (14-59) Alkaline Phosphatase 103 U/L (46-116) Total Protein 7.5 g/dL (6.4-8.2) Albumin 2.2 g/dL (3.4-5.0) Albumin/Globulin Ratio 0.4 (1.0-1.7) White Blood Count 8.5 x10^3/uL (4.0-11.0) Red Blood Count 2.71 x10^6/uL (3.50-5.40) Hemoglobin 9.2 g/dL (12.0-15.5) Hematocrit 27.2 % (36.0-47.0) Mean Corpuscular Volume 100 fL (79-100) Mean Corpuscular Hemoglobin 34 pg (25-35) Mean Corpuscular Hemoglobin Concent 34 g/dL (31-37) Red Cell Distribution Width 14.7 % (11.5-14.5) Platelet Count 172 x10^3/uL (140-400) Neutrophils (%) (Auto) 80 % (31-73) Lymphocytes (%) (Auto) 12 % (24-48) Monocytes (%) (Auto) 6 % (0-9) Eosinophils (%) (Auto) 2 % (0-3) Basophils (%) (Auto) 1 % (0-3) Neutrophils # (Auto) 6.8 x10^3/uL (1.8-7.7) Lymphocytes # (Auto) 1.0 x10^3/uL (1.0-4.8) Monocytes # (Auto) 0.5 x10^3/uL (0.0-1.1) Eosinophils # (Auto) 0.2 x10^3/uL (0.0-0.7) Basophils # (Auto) 0.0 x10^3/uL (0.0-0.2) Assessment/Plan Assessment/Plan recent afib chronic renal failure requires dialysis BS high uti noted porcelain GB--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
[2019-07-05 11:12] VITALS: BP 135/63
--- NOTE | 2019-07-05 11:18 | PDOC ---
Subjective: Subjective: Eating okay - doesn't like all the rice here - no abd pain. Objective: Objective: No GI concerns per nurse. Vital Signs: Vital Signs Date Time Temp Pulse Resp B/P (MAP) Pulse Ox O2 Delivery O2 Flow Rate FiO2 07/05/19 11:12 98.3 81 18 135/63 (87) 93 Room Air 98.3 07/04/19 20:00 2.0 Labs: Laboratory Tests Test 07/04/19 15:03 07/04/19 16:40 07/04/19 20:49 07/05/19 08:15 Glucose (Fingerstick) 132 mg/dL (70-99) 184 mg/dL (70-99) 234 mg/dL (70-99) 206 mg/dL (70-99) Imaging: VQ Scan 07/04 IMPRESSION: Low probability for pulmonary embolism. PE: GEN: NAD LUNGS: CTAB HEART: RRR ABD: NABS, S/ND/NT NEURO/PSYCH: A & O 3 A/P: Porcelain GB Chronic anemia - chronic disease, some iron deficiency, borderline low B12 -- Currently w/o GI complaints. Surgery following w/ consideration for elective enoch. JACKIE DON Jul 05, 2019 11:18
--- NOTE | 2019-07-05 11:47 | PDOC ---
[employer] PROGRESS NOTE Chief Complaint Chief Complaint Fever Leukocytosis Lactic acidosis UTI with sepsis ESRD on HD Hyperkalemia Hypoalbuminemia Anemia HTN History of Present Illness History of Present Illness 07/05/2019 Pt was seen and examined. Pt reports that she is feeling much better today and requested discharge. No acute complaints at this time. 07/04/2019 Pt was seen and examined. Was resting comfortably on exam while receiving dialysis. No acute complaints. Vitals/I&O Vitals/I&O: Vital Signs Date Time Temp Pulse Resp B/P (MAP) Pulse Ox O2 Delivery O2 Flow Rate FiO2 07/05/19 11:12 98.3 81 18 135/63 (87) 93 Room Air 98.3 07/04/19 20:00 2.0 I & O 07/04/19 07/04/19 07/05/19 15:00 23:00 07:00 Intake Total 780 ml 240 ml Balance 780 ml 240 ml Physical Exam General: Alert, Oriented X3, Cooperative, No acute distress Heart: Regular rate, Normal S1, Normal S2 Lungs: Clear Abdomen: Normal bowel sounds, Soft, No tenderness, No hepatosplenomegaly Extremities: No clubbing, No cyanosis Skin: No rashes, No breakdown Labs Labs: Laboratory Tests Test 07/04/19 15:03 07/04/19 15:50 07/04/19 16:40 07/04/19 20:49 Glucose (Fingerstick) 132 mg/dL (70-99) 184 mg/dL (70-99) 234 mg/dL (70-99) Troponin I Quantitative 0.590 ng/mL (0.000-0.055) Test 07/05/19 05:37 07/05/19 08:15 07/05/19 09:30 Sodium Level 137 mmol/L (136-145) Potassium Level 4.1 mmol/L (3.5-5.1) Chloride Level 99 mmol/L (98-107) Carbon Dioxide Level 27 mmol/L (21-32) Anion Gap 11 (6-14) Blood Urea Nitrogen 28 mg/dL (7-20) Creatinine 5.2 mg/dL (0.6-1.0) Estimated GFR (Cockcroft-Gault) 8.0 BUN/Creatinine Ratio 5 (6-20) Glucose Level 167 mg/dL (70-99) Calcium Level 8.7 mg/dL (8.5-10.1) Phosphorus Level 4.7 mg/dL (2.6-4.7) Magnesium Level 1.9 mg/dL (1.8-2.4) Total Bilirubin 0.5 mg/dL (0.2-1.0) Aspartate Amino Transf (AST/SGOT) 15 U/L (15-37) Alanine Aminotransferase (ALT/SGPT) 10 U/L (14-59) Alkaline Phosphatase 103 U/L (46-116) Total Protein 7.5 g/dL (6.4-8.2) Albumin 2.2 g/dL (3.4-5.0) Albumin/Globulin Ratio 0.4 (1.0-1.7) Glucose (Fingerstick) 206 mg/dL (70-99) White Blood Count 8.5 x10^3/uL (4.0-11.0) Red Blood Count 2.71 x10^6/uL (3.50-5.40) Hemoglobin 9.2 g/dL (12.0-15.5) Hematocrit 27.2 % (36.0-47.0) Mean Corpuscular Volume 100 fL (79-100) Mean Corpuscular Hemoglobin 34 pg (25-35) Mean Corpuscular Hemoglobin Concent 34 g/dL (31-37) Red Cell Distribution Width 14.7 % (11.5-14.5) Platelet Count 172 x10^3/uL (140-400) Neutrophils (%) (Auto) 80 % (31-73) Lymphocytes (%) (Auto) 12 % (24-48) Monocytes (%) (Auto) 6 % (0-9) Eosinophils (%) (Auto) 2 % (0-3) Basophils (%) (Auto) 1 % (0-3) Neutrophils # (Auto) 6.8 x10^3/uL (1.8-7.7) Lymphocytes # (Auto) 1.0 x10^3/uL (1.0-4.8) Monocytes # (Auto) 0.5 x10^3/uL (0.0-1.1) Eosinophils # (Auto) 0.2 x10^3/uL (0.0-0.7) Basophils # (Auto) 0.0 x10^3/uL (0.0-0.2) Review of Systems Review of Systems: Denies N/V/D Denies Fever Denies abdominal pain Denies chest pain Denies SOB Assessment and Plan Assessmemt and Plan Problems Medical Problems: (1) Sepsis Status: Acute (2) UTI (lower urinary tract infection) Status: Acute Fever Leukocytosis Lactic acidosis UTI with sepsis ESRD on HD Hyperkalemia Hypoalbuminemia Anemia HTN Plan: 1) D/C today if ok with other specialists 2) 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 NIDIA SQUIRES III DO Jul 05, 2019 11:47
--- NOTE | 2019-07-05 14:01 | PDOC ---
DANIELLE THOMAS THREAD SINGER 07/05/19 1401: CARDIO Progress Notes Date and Time Date of Service 07/05/2019 Time of Evaluation 1400 Subjective Subjective: No Chest Pain, No shortness of breath, No Palpitations Vitals Vitals Vital Signs Date Time Temp Pulse Resp B/P (MAP) Pulse Ox O2 Delivery O2 Flow Rate FiO2 07/05/19 12:31 81 135/63 07/05/19 11:12 98.3 18 93 Room Air 98.3 07/04/19 20:00 2.0 Weight Weight [ ] Input and Output Intake and Output Intake and Output 07/05/19 07:00 Intake Total 1020 ml Balance 1020 ml Intake Oral 1020 ml # Voids 2 # Bowel Movements 3 Laboratory Labs Laboratory Tests Test 07/04/19 15:03 07/04/19 15:50 07/04/19 16:40 07/04/19 20:49 Glucose (Fingerstick) 132 mg/dL (70-99) 184 mg/dL (70-99) 234 mg/dL (70-99) Troponin I Quantitative 0.590 ng/mL (0.000-0.055) Test 07/05/19 05:37 07/05/19 08:15 07/05/19 09:30 07/05/19 11:37 Sodium Level 137 mmol/L (136-145) Potassium Level 4.1 mmol/L (3.5-5.1) Chloride Level 99 mmol/L (98-107) Carbon Dioxide Level 27 mmol/L (21-32) Anion Gap 11 (6-14) Blood Urea Nitrogen 28 mg/dL (7-20) Creatinine 5.2 mg/dL (0.6-1.0) Estimated GFR (Cockcroft-Gault) 8.0 BUN/Creatinine Ratio 5 (6-20) Glucose Level 167 mg/dL (70-99) Calcium Level 8.7 mg/dL (8.5-10.1) Phosphorus Level 4.7 mg/dL (2.6-4.7) Magnesium Level 1.9 mg/dL (1.8-2.4) Total Bilirubin 0.5 mg/dL (0.2-1.0) Aspartate Amino Transf (AST/SGOT) 15 U/L (15-37) Alanine Aminotransferase (ALT/SGPT) 10 U/L (14-59) Alkaline Phosphatase 103 U/L (46-116) Total Protein 7.5 g/dL (6.4-8.2) Albumin 2.2 g/dL (3.4-5.0) Albumin/Globulin Ratio 0.4 (1.0-1.7) Glucose (Fingerstick) 206 mg/dL (70-99) 254 mg/dL (70-99) White Blood Count 8.5 x10^3/uL (4.0-11.0) Red Blood Count 2.71 x10^6/uL (3.50-5.40) Hemoglobin 9.2 g/dL (12.0-15.5) Hematocrit 27.2 % (36.0-47.0) Mean Corpuscular Volume 100 fL (79-100) Mean Corpuscular Hemoglobin 34 pg (25-35) Mean Corpuscular Hemoglobin Concent 34 g/dL (31-37) Red Cell Distribution Width 14.7 % (11.5-14.5) Platelet Count 172 x10^3/uL (140-400) Neutrophils (%) (Auto) 80 % (31-73) Lymphocytes (%) (Auto) 12 % (24-48) Monocytes (%) (Auto) 6 % (0-9) Eosinophils (%) (Auto) 2 % (0-3) Basophils (%) (Auto) 1 % (0-3) Neutrophils # (Auto) 6.8 x10^3/uL (1.8-7.7) Lymphocytes # (Auto) 1.0 x10^3/uL (1.0-4.8) Monocytes # (Auto) 0.5 x10^3/uL (0.0-1.1) Eosinophils # (Auto) 0.2 x10^3/uL (0.0-0.7) Basophils # (Auto) 0.0 x10^3/uL (0.0-0.2) Microbiology Micro Microbiology 07/03/19 Blood Culture - Preliminary, Resulted NO GROWTH AFTER 2 DAYS 07/03/19 Urine Culture - Preliminary, Resulted 07/03/19 Urine Culture Result 1 (SIL) - Preliminary, Resulted Physical Exam HEENT: Neck Supple W Full Motion Chest: Symmetric LUNGS: Clear to Auscultation Heart: S1S2, RRR (SR) Abdomen: Soft N/T Extremities: No Calf Tenderness Neurology: alert, oriented, follow commands Assessment Assessment 1. AFIB RVR: new onset, maintaining SR. 2. Abnormal EKG: notable for AFIB with aberrancy with RBBB configuration. EF nml. 3. ESRD 4. Sepsis with bilateral hydronephrosis/UTI: ureteral stents removed in the past per pt 5. Elevated troponin: peaked at 0.5. EKG changes as noted above. Suspect demand mediated but could not rule out occult ischemia. 6. Elevated DDIMER: V/Q scan low probability for PE 7. CAD; CABG x3 10 yrs ago with last stress test >2 yrs ago. Not seen police judge in 10 yrs. 8. HTN: controlled 9. HLP 10. DM2/peripheral neuropathy: on insulin therapy Recommendations 1. Continue with secondary prevention measures. ASA, lopressor 2. Treat sepsis per ID. Will consider for ischemic workup as an outpt 3. MCOT and note AFIB burden and further need of anticoagulation therapy. 4. Establish cardiology care in our office. 5. Fluid off loading per HD. JAYLIN LAKHANI MD 07/05/191925: CARDIO Progress Notes Assessment Assessment Patient seen and examined. Agree with [employer] AGENT's assessment and plan. Maintaining SR. Agree with event monitor as outpatient CAD stable Continue HD per nephrology and abx for sepsis per ID DANIELLE THOMAS APRN Jul 05, 2019 14:01 JAYLIN LAKHANI MD Jul 05, 2019 19:26
[2019-07-05 15:00] VITALS: BP 146/68
--- NOTE | 2019-07-05 17:30 | NUR ---
Patient refused 1700 Humalog BS is 128. States BS is too low.
[2019-07-05 19:32] VITALS: BP 143/71
[2019-07-05] MEDS: INSULIN GLARGINE SYRINGE. SQ SCH (20:35)
[2019-07-05] MEDS: METOPROLOL TART IMMED RELEASE 50 MG TABLET. PO SCH (20:35)
[2019-07-05] MEDS: SIMVASTATIN 40 MG TABLET. PO SCH (20:35)
[2019-07-05] MEDS ORDERED: DARBEPOETIN ALFA 60 MCG/0.3 ML DISP.SYRIN. SQ SCH (21:00)
[2019-07-05 22:11] VITALS: BP 151/64
[2019-07-06] MEDS: METOPROLOL TART IMMED RELEASE 25 MG TABLET. PO SCH ×3 (00:04→12:00)
[2019-07-06 02:04] VITALS: BP 141/57
[2019-07-06 05:22] LABS: BASO % 1 % (0-3); EOS # 0.2 x10^3/uL (0.0-0.7); EOS % 2 % (0-3); HEMATOCRIT 26.3 % (36.0-47.0); HEMOGLOBIN 8.8 g/dL (12.0-15.5); LYMPH # 1.2 x10^3/uL (1.0-4.8); LYMPH % 16 % (24-48); MEAN CORPUSCULAR HEMOGLOBIN 33 pg (25-35); MEAN CORPUSCULAR HGB CONC 34 g/dL (31-37); MEAN CORPUSCULAR VOLUME 99 fL (79-100); MONO # 0.6 x10^3/uL (0.0-1.1); MONO % 8 % (0-9); NEUT # 5.9 x10^3/uL (1.8-7.7); NEUT % 74 % (31-73); PLATELET COUNT 189 x10^3/uL (140-400); RED BLOOD COUNT 2.65 x10^6/uL (3.50-5.40); RED CELL DISTRIBUTION WIDTH 14.5 % (11.5-14.5)
[2019-07-06 05:44] LABS: ALBUMIN 2.2 g/dL (3.4-5.0); ALBUMIN/GLOBULIN RATIO 0.4 (1.0-1.7); CALCIUM 8.7 mg/dL (8.5-10.1); CREATININE 6.5 mg/dL (0.6-1.0); GFR 6.2; POTASSIUM 4.5 mmol/L (3.5-5.1); TOTAL BILIRUBIN 0.5 mg/dL (0.2-1.0); TOTAL PROTEIN 7.4 g/dL (6.4-8.2)
[2019-07-06 07:13] VITALS: BP 144/65
[2019-07-06] MEDS ORDERED: IV NORMAL SALINE 1000ML BAG 1,000 ML IV PRN ×2 (07:55)
[2019-07-06] MEDS ORDERED: DIALYSIS PATIENT. MC PRN ×2 (08:00)
[2019-07-06] MEDS ORDERED: 0.9 % SODIUM CHLORIDE 10 ML DISP.SYRIN. IV PRN ×2 (08:00)
[2019-07-06] MEDS ORDERED: ALBUMIN HUMAN 25% 200 ML IV PRN (08:00)
--- NOTE | 2019-07-06 08:16 | PDOC ---
Infectious Disease Note Subjective Subjective feeling much better ROS ROS no n/v/d/sob Vital Sign Vital Signs Vital Signs Date Time Temp Pulse Resp B/P (MAP) Pulse Ox O2 Delivery O2 Flow Rate FiO2 07/06/19 07:13 97.9 75 16 144/65 (91) 97 Room Air 97.9 Physical Exam PHYSICAL EXAM GENERAL: Alert, oriented female, not in any distress. VITAL SIGNS: Stable HEENT: NAD. NECK: Supple, no JVP, no lymphadenopathy. LUNGS: Clear. HEART: S1, S2 regular. ABDOMEN: Benign. EXTREMITIES: No edema, cyanosis. SKIN: Unremarkable. NEUROLOGIC: The patient is neurologically alert, awake and appropriate. No focal neurologic deficit. Labs Lab Laboratory Tests Test 07/05/19 09:30 07/05/19 11:37 07/05/19 16:45 07/05/19 20:34 White Blood Count 8.5 x10^3/uL (4.0-11.0) Red Blood Count 2.71 x10^6/uL (3.50-5.40) Hemoglobin 9.2 g/dL (12.0-15.5) Hematocrit 27.2 % (36.0-47.0) Mean Corpuscular Volume 100 fL (79-100) Mean Corpuscular Hemoglobin 34 pg (25-35) Mean Corpuscular Hemoglobin Concent 34 g/dL (31-37) Red Cell Distribution Width 14.7 % (11.5-14.5) Platelet Count 172 x10^3/uL (140-400) Neutrophils (%) (Auto) 80 % (31-73) Lymphocytes (%) (Auto) 12 % (24-48) Monocytes (%) (Auto) 6 % (0-9) Eosinophils (%) (Auto) 2 % (0-3) Basophils (%) (Auto) 1 % (0-3) Neutrophils # (Auto) 6.8 x10^3/uL (1.8-7.7) Lymphocytes # (Auto) 1.0 x10^3/uL (1.0-4.8) Monocytes # (Auto) 0.5 x10^3/uL (0.0-1.1) Eosinophils # (Auto) 0.2 x10^3/uL (0.0-0.7) Basophils # (Auto) 0.0 x10^3/uL (0.0-0.2) Glucose (Fingerstick) 254 mg/dL (70-99) 128 mg/dL (70-99) 158 mg/dL (70-99) Test 07/06/19 05:00 07/06/19 07:16 White Blood Count 8.0 x10^3/uL (4.0-11.0) Red Blood Count 2.65 x10^6/uL (3.50-5.40) Hemoglobin 8.8 g/dL (12.0-15.5) Hematocrit 26.3 % (36.0-47.0) Mean Corpuscular Volume 99 fL (79-100) Mean Corpuscular Hemoglobin 33 pg (25-35) Mean Corpuscular Hemoglobin Concent 34 g/dL (31-37) Red Cell Distribution Width 14.5 % (11.5-14.5) Platelet Count 189 x10^3/uL (140-400) Neutrophils (%) (Auto) 74 % (31-73) Lymphocytes (%) (Auto) 16 % (24-48) Monocytes (%) (Auto) 8 % (0-9) Eosinophils (%) (Auto) 2 % (0-3) Basophils (%) (Auto) 1 % (0-3) Neutrophils # (Auto) 5.9 x10^3/uL (1.8-7.7) Lymphocytes # (Auto) 1.2 x10^3/uL (1.0-4.8) Monocytes # (Auto) 0.6 x10^3/uL (0.0-1.1) Eosinophils # (Auto) 0.2 x10^3/uL (0.0-0.7) Basophils # (Auto) 0.0 x10^3/uL (0.0-0.2) Sodium Level 136 mmol/L (136-145) Potassium Level 4.5 mmol/L (3.5-5.1) Chloride Level 98 mmol/L (98-107) Carbon Dioxide Level 28 mmol/L (21-32) Anion Gap 10 (6-14) Blood Urea Nitrogen 42 mg/dL (7-20) Creatinine 6.5 mg/dL (0.6-1.0) Estimated GFR (Cockcroft-Gault) 6.2 BUN/Creatinine Ratio 6 (6-20) Glucose Level 139 mg/dL (70-99) Calcium Level 8.7 mg/dL (8.5-10.1) Magnesium Level 1.8 mg/dL (1.8-2.4) Total Bilirubin 0.5 mg/dL (0.2-1.0) Aspartate Amino Transf (AST/SGOT) 23 U/L (15-37) Alanine Aminotransferase (ALT/SGPT) 17 U/L (14-59) Alkaline Phosphatase 111 U/L (46-116) Total Protein 7.4 g/dL (6.4-8.2) Albumin 2.2 g/dL (3.4-5.0) Albumin/Globulin Ratio 0.4 (1.0-1.7) Glucose (Fingerstick) 143 mg/dL (70-99) Micro BC neg Urine with G neg sandip Objective Assessment 1. Fever. 2. Leukocytosis. 3. Lactic acidosis. 4. Urinary tract infection with sepsis. 5. Bilateral hydronephrosis, chronic. 6. End-stage renal disease, on hemodialysis. Plan Plan of Care cefepime ,,, d/c soon on po antibiotics check cultures supportive care d/w daughter ANA CRISTINA العلي MD Jul 06, 2019 08:16
[2019-07-06] MEDS: CALCIUM ACETATE 667 MG CAPSULE PO SCH ×3 (08:42→16:57)
[2019-07-06] MEDS: LACTOBACILLUS RHAMNOSUS GG 1 CAPSULE. PO SCH ×2 (08:42→20:16)
[2019-07-06] MEDS: ASPIRIN CHEWABLE 81 MG TABLET. PO SCH (08:42)
[2019-07-06] MEDS: FOLIC/VIT B COMP W-C (RENAL) TABLET. PO SCH (08:42)
[2019-07-06] MEDS: METOPROLOL TART IMMED RELEASE 50 MG TABLET. PO SCH ×2 (08:42→20:17)
[2019-07-06] MEDS: INSULIN LISPRO 300 UNITS/3 ML VIAL. SQ SCH ×3 (08:53→17:01)
--- NOTE | 2019-07-06 09:25 | PDOC ---
Dialysis Progress Note Dialysis Note Dialysis Note Seen on Hemodialysis, tolerating treatment Well Vitals on Hemodialysis: 131/43 72 98.0 General Appearance: Awake: Alert Oriented x 3 Neck: No JVD or JVP Chest: CTA [place] Heart: S1 S2 Abdomen - Soft NTND Extremities - No Edema ESRD: Dialysis as below F 180 NR 3.0 Hrs 3 K 2.5 Ca 140 Na 35 HC03 Qb 350 + Qd 500+ Heparin 0 Units Uf 0-1 Kgs (since pt is below dry weight as OP May give 25-50 gms of 25% Albumin if needed to maintain Hemodynamic stability Treatment plan reviewed and discussed with bowling floor desk clerk Vitals Vital Signs Vital Signs Date Time Temp Pulse Resp B/P (MAP) Pulse Ox O2 Delivery O2 Flow Rate FiO2 07/06/19 08:42 78 144/65 07/06/19 07:13 97.9 16 97 Room Air 97.9 07/04/19 20:00 2.0 Labs Last Labs Laboratory Tests Test 07/04/19 10:55 07/04/19 15:03 07/04/19 15:50 07/04/19 16:40 Prothrombin Time 15.3 SEC (11.7-14.0) Prothromb Time International Ratio 1.2 (0.8-1.1) D-Dimer (Arabella) 2.74 ug/mlFEU (0.00-0.50) Iron Level 18 ug/dL (50-170) Total Iron Binding Capacity 167 ug/dL (250-450) Iron Saturation 11 % (15-34) Troponin I Quantitative 0.528 ng/mL (0.000-0.055) 0.590 ng/mL (0.000-0.055) Vitamin B12 Level 249 pg/mL (247-911) Glucose (Fingerstick) 132 mg/dL (70-99) 184 mg/dL (70-99) Test 07/04/19 20:49 07/05/19 05:37 07/05/19 08:15 07/05/19 09:30 Glucose (Fingerstick) 234 mg/dL (70-99) 206 mg/dL (70-99) Sodium Level 137 mmol/L (136-145) Potassium Level 4.1 mmol/L (3.5-5.1) Chloride Level 99 mmol/L (98-107) Carbon Dioxide Level 27 mmol/L (21-32) Anion Gap 11 (6-14) Blood Urea Nitrogen 28 mg/dL (7-20) Creatinine 5.2 mg/dL (0.6-1.0) Estimated GFR (Cockcroft-Gault) 8.0 BUN/Creatinine Ratio 5 (6-20) Glucose Level 167 mg/dL (70-99) Calcium Level 8.7 mg/dL (8.5-10.1) Phosphorus Level 4.7 mg/dL (2.6-4.7) Magnesium Level 1.9 mg/dL (1.8-2.4) Total Bilirubin 0.5 mg/dL (0.2-1.0) Aspartate Amino Transf (AST/SGOT) 15 U/L (15-37) Alanine Aminotransferase (ALT/SGPT) 10 U/L (14-59) Alkaline Phosphatase 103 U/L (46-116) Total Protein 7.5 g/dL (6.4-8.2) Albumin 2.2 g/dL (3.4-5.0) Albumin/Globulin Ratio 0.4 (1.0-1.7) White Blood Count 8.5 x10^3/uL (4.0-11.0) Red Blood Count 2.71 x10^6/uL (3.50-5.40) Hemoglobin 9.2 g/dL (12.0-15.5) Hematocrit 27.2 % (36.0-47.0) Mean Corpuscular Volume 100 fL (79-100) Mean Corpuscular Hemoglobin 34 pg (25-35) Mean Corpuscular Hemoglobin Concent 34 g/dL (31-37) Red Cell Distribution Width 14.7 % (11.5-14.5) Platelet Count 172 x10^3/uL (140-400) Neutrophils (%) (Auto) 80 % (31-73) Lymphocytes (%) (Auto) 12 % (24-48) Monocytes (%) (Auto) 6 % (0-9) Eosinophils (%) (Auto) 2 % (0-3) Basophils (%) (Auto) 1 % (0-3) Neutrophils # (Auto) 6.8 x10^3/uL (1.8-7.7) Lymphocytes # (Auto) 1.0 x10^3/uL (1.0-4.8) Monocytes # (Auto) 0.5 x10^3/uL (0.0-1.1) Eosinophils # (Auto) 0.2 x10^3/uL (0.0-0.7) Basophils # (Auto) 0.0 x10^3/uL (0.0-0.2) Test 07/05/19 11:37 07/05/19 16:45 07/05/19 20:34 07/06/19 05:00 Glucose (Fingerstick) 254 mg/dL (70-99) 128 mg/dL (70-99) 158 mg/dL (70-99) White Blood Count 8.0 x10^3/uL (4.0-11.0) Red Blood Count 2.65 x10^6/uL (3.50-5.40) Hemoglobin 8.8 g/dL (12.0-15.5) Hematocrit 26.3 % (36.0-47.0) Mean Corpuscular Volume 99 fL (79-100) Mean Corpuscular Hemoglobin 33 pg (25-35) Mean Corpuscular Hemoglobin Concent 34 g/dL (31-37) Red Cell Distribution Width 14.5 % (11.5-14.5) Platelet Count 189 x10^3/uL (140-400) Neutrophils (%) (Auto) 74 % (31-73) Lymphocytes (%) (Auto) 16 % (24-48) Monocytes (%) (Auto) 8 % (0-9) Eosinophils (%) (Auto) 2 % (0-3) Basophils (%) (Auto) 1 % (0-3) Neutrophils # (Auto) 5.9 x10^3/uL (1.8-7.7) Lymphocytes # (Auto) 1.2 x10^3/uL (1.0-4.8) Monocytes # (Auto) 0.6 x10^3/uL (0.0-1.1) Eosinophils # (Auto) 0.2 x10^3/uL (0.0-0.7) Basophils # (Auto) 0.0 x10^3/uL (0.0-0.2) Sodium Level 136 mmol/L (136-145) Potassium Level 4.5 mmol/L (3.5-5.1) Chloride Level 98 mmol/L (98-107) Carbon Dioxide Level 28 mmol/L (21-32) Anion Gap 10 (6-14) Blood Urea Nitrogen 42 mg/dL (7-20) Creatinine 6.5 mg/dL (0.6-1.0) Estimated GFR (Cockcroft-Gault) 6.2 BUN/Creatinine Ratio 6 (6-20) Glucose Level 139 mg/dL (70-99) Calcium Level 8.7 mg/dL (8.5-10.1) Magnesium Level 1.8 mg/dL (1.8-2.4) Total Bilirubin 0.5 mg/dL (0.2-1.0) Aspartate Amino Transf (AST/SGOT) 23 U/L (15-37) Alanine Aminotransferase (ALT/SGPT) 17 U/L (14-59) Alkaline Phosphatase 111 U/L (46-116) Total Protein 7.4 g/dL (6.4-8.2) Albumin 2.2 g/dL (3.4-5.0) Albumin/Globulin Ratio 0.4 (1.0-1.7) Test 07/06/19 07:16 Glucose (Fingerstick) 143 mg/dL (70-99) Laboratory Tests Test 07/05/19 09:30 07/05/19 11:37 07/05/19 16:45 07/05/19 20:34 White Blood Count 8.5 x10^3/uL (4.0-11.0) Red Blood Count 2.71 x10^6/uL (3.50-5.40) Hemoglobin 9.2 g/dL (12.0-15.5) Hematocrit 27.2 % (36.0-47.0) Mean Corpuscular Volume 100 fL (79-100) Mean Corpuscular Hemoglobin 34 pg (25-35) Mean Corpuscular Hemoglobin Concent 34 g/dL (31-37) Red Cell Distribution Width 14.7 % (11.5-14.5) Platelet Count 172 x10^3/uL (140-400) Neutrophils (%) (Auto) 80 % (31-73) Lymphocytes (%) (Auto) 12 % (24-48) Monocytes (%) (Auto) 6 % (0-9) Eosinophils (%) (Auto) 2 % (0-3) Basophils (%) (Auto) 1 % (0-3) Neutrophils # (Auto) 6.8 x10^3/uL (1.8-7.7) Lymphocytes # (Auto) 1.0 x10^3/uL (1.0-4.8) Monocytes # (Auto) 0.5 x10^3/uL (0.0-1.1) Eosinophils # (Auto) 0.2 x10^3/uL (0.0-0.7) Basophils # (Auto) 0.0 x10^3/uL (0.0-0.2) Glucose (Fingerstick) 254 mg/dL (70-99) 128 mg/dL (70-99) 158 mg/dL (70-99) Test 07/06/19 05:00 07/06/19 07:16 White Blood Count 8.0 x10^3/uL (4.0-11.0) Red Blood Count 2.65 x10^6/uL (3.50-5.40) Hemoglobin 8.8 g/dL (12.0-15.5) Hematocrit 26.3 % (36.0-47.0) Mean Corpuscular Volume 99 fL (79-100) Mean Corpuscular Hemoglobin 33 pg (25-35) Mean Corpuscular Hemoglobin Concent 34 g/dL (31-37) Red Cell Distribution Width 14.5 % (11.5-14.5) Platelet Count 189 x10^3/uL (140-400) Neutrophils (%) (Auto) 74 % (31-73) Lymphocytes (%) (Auto) 16 % (24-48) Monocytes (%) (Auto) 8 % (0-9) Eosinophils (%) (Auto) 2 % (0-3) Basophils (%) (Auto) 1 % (0-3) Neutrophils # (Auto) 5.9 x10^3/uL (1.8-7.7) Lymphocytes # (Auto) 1.2 x10^3/uL (1.0-4.8) Monocytes # (Auto) 0.6 x10^3/uL (0.0-1.1) Eosinophils # (Auto) 0.2 x10^3/uL (0.0-0.7) Basophils # (Auto) 0.0 x10^3/uL (0.0-0.2) Sodium Level 136 mmol/L (136-145) Potassium Level 4.5 mmol/L (3.5-5.1) Chloride Level 98 mmol/L (98-107) Carbon Dioxide Level 28 mmol/L (21-32) Anion Gap 10 (6-14) Blood Urea Nitrogen 42 mg/dL (7-20) Creatinine 6.5 mg/dL (0.6-1.0) Estimated GFR (Cockcroft-Gault) 6.2 BUN/Creatinine Ratio 6 (6-20) Glucose Level 139 mg/dL (70-99) Calcium Level 8.7 mg/dL (8.5-10.1) Magnesium Level 1.8 mg/dL (1.8-2.4) Total Bilirubin 0.5 mg/dL (0.2-1.0) Aspartate Amino Transf (AST/SGOT) 23 U/L (15-37) Alanine Aminotransferase (ALT/SGPT) 17 U/L (14-59) Alkaline Phosphatase 111 U/L (46-116) Total Protein 7.4 g/dL (6.4-8.2) Albumin 2.2 g/dL (3.4-5.0) Albumin/Globulin Ratio 0.4 (1.0-1.7) Glucose (Fingerstick) 143 mg/dL (70-99) Assessment Assessment Problems Medical Problems: (1) Sepsis Status: Acute (2) UTI (lower urinary tract infection) Status: Acute Plan Plan of Care Problems Medical Problems: (1) Sepsis Status: Acute (2) UTI (lower urinary tract infection) Status: Acute TRINA العلي MD Jul 06, 2019 09:25
--- NOTE | 2019-07-06 09:36 | PDOC ---
Subjective: Subjective: Feels well. Says she will have cholecystectomy. Objective: Vital Signs: Vital Signs Date Time Temp Pulse Resp B/P (MAP) Pulse Ox O2 Delivery O2 Flow Rate FiO2 07/06/19 08:42 78 144/65 07/06/19 07:13 97.9 16 97 Room Air 97.9 Labs: Laboratory Tests Test 07/05/19 11:37 07/05/19 16:45 07/05/19 20:34 07/06/19 05:00 Glucose (Fingerstick) 254 mg/dL 128 mg/dL 158 mg/dL White Blood Count 8.0 x10^3/uL Red Blood Count 2.65 x10^6/uL Hemoglobin 8.8 g/dL Hematocrit 26.3 % Mean Corpuscular Volume 99 fL Mean Corpuscular Hemoglobin 33 pg Mean Corpuscular Hemoglobin Concent 34 g/dL Red Cell Distribution Width 14.5 % Platelet Count 189 x10^3/uL Neutrophils (%) (Auto) 74 % Lymphocytes (%) (Auto) 16 % Monocytes (%) (Auto) 8 % Eosinophils (%) (Auto) 2 % Basophils (%) (Auto) 1 % Neutrophils # (Auto) 5.9 x10^3/uL Lymphocytes # (Auto) 1.2 x10^3/uL Monocytes # (Auto) 0.6 x10^3/uL Eosinophils # (Auto) 0.2 x10^3/uL Basophils # (Auto) 0.0 x10^3/uL Sodium Level 136 mmol/L Potassium Level 4.5 mmol/L Chloride Level 98 mmol/L Carbon Dioxide Level 28 mmol/L Anion Gap 10 Blood Urea Nitrogen 42 mg/dL Creatinine 6.5 mg/dL Estimated GFR (Cockcroft-Gault) 6.2 BUN/Creatinine Ratio 6 Glucose Level 139 mg/dL Calcium Level 8.7 mg/dL Phosphorus Level Pending Magnesium Level 1.8 mg/dL Total Bilirubin 0.5 mg/dL Aspartate Amino Transf (AST/SGOT) 23 U/L Alanine Aminotransferase (ALT/SGPT) 17 U/L Alkaline Phosphatase 111 U/L Total Protein 7.4 g/dL Albumin 2.2 g/dL Albumin/Globulin Ratio 0.4 Test 07/06/19 07:16 Glucose (Fingerstick) 143 mg/dL PE: GEN: dialyzing LUNGS: CTAB HEART: RRR ABD: NABS, S/ND/NT NEURO/PSYCH: A & O 3 A/P: Porcelain GB Chronic anemia - chronic disease, some iron deficiency, borderline low B12 -- Follow-up w/ surgery to schedule cholecystectomy. JACKIE DON Jul 06, 2019 09:36
[2019-07-06 10:10] LABS: PHOSPHORUS 4.9 mg/dL (2.6-4.7)
[2019-07-06] MEDS: FERROUS SULFATE ORAL 300 MG/5 ML SOLUTION. PO SCH (12:52)
[2019-07-06] MEDS: CYANOCOBALAMIN (VITAMIN B-12) 100 MCG TABLET PO SCH (12:52)
[2019-07-06] MEDS: CEFEPIME HCL IV Push 1 GM VIAL. IVP SCH (12:53)
--- NOTE | 2019-07-06 13:12 | PDOC ---
[facility] [facility] PROGRESS NOTE Chief Complaint Chief Complaint Fever Leukocytosis Lactic acidosis UTI with sepsis ESRD on HD Hyperkalemia Hypoalbuminemia Anemia HTN History of Present Illness History of Present Illness 07/06/2019 Pt was seen and examined. She had dialysis today and reports no complications from the dialysis. She reports that the ID doctor is waiting on some cultures to come back prior to discharging her. Reports willingness to D/C when we are ready to let her go. 07/05/2019 Pt was seen and examined. Pt reports that she is feeling much better today and requested discharge. No acute complaints at this time. 07/04/2019 Pt was seen and examined. Was resting comfortably on exam while receiving dialysis. No acute complaints. Vitals/I&O Vitals/I&O: Vital Signs Date Time Temp Pulse Resp B/P (MAP) Pulse Ox O2 Delivery O2 Flow Rate FiO2 07/06/19 08:42 78 144/65 07/06/19 08:00 Room Air 07/06/19 07:13 97.9 16 97 97.9 I & O 07/05/19 07/05/19 07/06/19 15:00 23:00 07:00 Intake Total 300 ml 540 ml 290 ml Balance 300 ml 540 ml 290 ml Physical Exam General: Alert, Oriented X3, Cooperative, No acute distress Heart: Regular rate, Normal S1, Normal S2 Lungs: Clear Abdomen: Normal bowel sounds, Soft, No tenderness, No hepatosplenomegaly Extremities: No clubbing, No cyanosis Skin: No rashes, No breakdown Labs Labs: Laboratory Tests Test 07/05/19 16:45 07/05/19 20:34 07/06/19 05:00 07/06/19 07:16 Glucose (Fingerstick) 128 mg/dL (70-99) 158 mg/dL (70-99) 143 mg/dL (70-99) White Blood Count 8.0 x10^3/uL (4.0-11.0) Red Blood Count 2.65 x10^6/uL (3.50-5.40) Hemoglobin 8.8 g/dL (12.0-15.5) Hematocrit 26.3 % (36.0-47.0) Mean Corpuscular Volume 99 fL (79-100) Mean Corpuscular Hemoglobin 33 pg (25-35) Mean Corpuscular Hemoglobin Concent 34 g/dL (31-37) Red Cell Distribution Width 14.5 % (11.5-14.5) Platelet Count 189 x10^3/uL (140-400) Neutrophils (%) (Auto) 74 % (31-73) Lymphocytes (%) (Auto) 16 % (24-48) Monocytes (%) (Auto) 8 % (0-9) Eosinophils (%) (Auto) 2 % (0-3) Basophils (%) (Auto) 1 % (0-3) Neutrophils # (Auto) 5.9 x10^3/uL (1.8-7.7) Lymphocytes # (Auto) 1.2 x10^3/uL (1.0-4.8) Monocytes # (Auto) 0.6 x10^3/uL (0.0-1.1) Eosinophils # (Auto) 0.2 x10^3/uL (0.0-0.7) Basophils # (Auto) 0.0 x10^3/uL (0.0-0.2) Sodium Level 136 mmol/L (136-145) Potassium Level 4.5 mmol/L (3.5-5.1) Chloride Level 98 mmol/L (98-107) Carbon Dioxide Level 28 mmol/L (21-32) Anion Gap 10 (6-14) Blood Urea Nitrogen 42 mg/dL (7-20) Creatinine 6.5 mg/dL (0.6-1.0) Estimated GFR (Cockcroft-Gault) 6.2 BUN/Creatinine Ratio 6 (6-20) Glucose Level 139 mg/dL (70-99) Calcium Level 8.7 mg/dL (8.5-10.1) Phosphorus Level 4.9 mg/dL (2.6-4.7) Magnesium Level 1.8 mg/dL (1.8-2.4) Total Bilirubin 0.5 mg/dL (0.2-1.0) Aspartate Amino Transf (AST/SGOT) 23 U/L (15-37) Alanine Aminotransferase (ALT/SGPT) 17 U/L (14-59) Alkaline Phosphatase 111 U/L (46-116) Total Protein 7.4 g/dL (6.4-8.2) Albumin 2.2 g/dL (3.4-5.0) Albumin/Globulin Ratio 0.4 (1.0-1.7) Review of Systems Review of Systems: Denies SOB Denies CP Denies N/V/D Assessment and Plan Assessmemt and Plan Problems Medical Problems: (1) Sepsis Status: Acute (2) UTI (lower urinary tract infection) Status: Acute Fever Leukocytosis Lactic acidosis UTI with sepsis ESRD on HD Hyperkalemia Hypoalbuminemia Anemia HTN Plan: 1) D/C when cleared by ID 2) Continue outpatient dialysis MWF per renal 3) Continue Cefepime with plans to transition to PO antibiotic on D/C per ID 4) PT/OT 5) DVT prophylaxis 6) Full code Comment Review of Relevant I have reviewed the following items anastasiya (where applicable) has been applied. Medications: Current Medications Medications (Trade) Dose Ordered Sig/Claudette Route PRN Reason Start Time Stop Time Status Last Admin Dose Admin Darbepoetin Hernandez (ARANESP for DIALYSIS PTS) 60 mcg WEEKLYHS SQ 07/05/19 21:00 07/05/19 21:48 Metoprolol Tartrate (Lopressor) 50 mg BID PO 07/05/19 21:00 07/06/19 08:42 Ferrous Sulfate (Iron Oral Solution) 300 mg DAILY PO 07/06/19 10:00 07/06/19 12:52 Cyanocobalamin (Vitamin B-12) 100 mcg DAILY PO 07/06/19 10:00 07/06/19 12:52 NIDIA SQUIRES III DO Jul 06, 2019 13:12
[2019-07-06 14:59] VITALS: BP 125/60
--- NOTE | 2019-07-06 16:21 | NUR ---
SS following up with discharge planning. SS received notification that pt received outpatient dialysis at [facility], ; fax [phone], on Tuesday, Tuesday, and Tuesday at 0600. SS will continue to follow for discharge planning.
[2019-07-06] MEDS: ACETAMINOPHEN 325 MG TABLET. PO PRN (17:04)
[2019-07-06 19:18] VITALS: BP 122/44
[2019-07-06] MEDS: SIMVASTATIN 40 MG TABLET. PO SCH (20:17)
[2019-07-06] MEDS: INSULIN GLARGINE SYRINGE. SQ SCH (20:19)
[2019-07-06 23:31] VITALS: BP 117/44
[2019-07-07 03:52] VITALS: BP 133/85
[2019-07-07 06:46] LABS: BASO # 0.1 x10^3/uL (0.0-0.2); BASO % 1 % (0-3); EOS # 0.1 x10^3/uL (0.0-0.7); EOS % 2 % (0-3); HEMATOCRIT 27.2 % (36.0-47.0); HEMOGLOBIN 9.2 g/dL (12.0-15.5); LYMPH # 1.1 x10^3/uL (1.0-4.8); LYMPH % 14 % (24-48); MEAN CORPUSCULAR HEMOGLOBIN 34 pg (25-35); MEAN CORPUSCULAR HGB CONC 34 g/dL (31-37); MEAN CORPUSCULAR VOLUME 100 fL (79-100); MONO # 0.7 x10^3/uL (0.0-1.1); MONO % 10 % (0-9); NEUT # 5.6 x10^3/uL (1.8-7.7); NEUT % 74 % (31-73); PLATELET COUNT 186 x10^3/uL (140-400); RED BLOOD COUNT 2.72 x10^6/uL (3.50-5.40); RED CELL DISTRIBUTION WIDTH 14.1 % (11.5-14.5); WHITE BLOOD COUNT 7.6 x10^3/uL (4.0-11.0)
[2019-07-07 07:00] VITALS: BP 154/68
[2019-07-07 07:11] LABS: ALBUMIN 2.2 g/dL (3.4-5.0); ALBUMIN/GLOBULIN RATIO 0.4 (1.0-1.7); CALCIUM 8.9 mg/dL (8.5-10.1); CREATININE 5.2 mg/dL (0.6-1.0); POTASSIUM 4.4 mmol/L (3.5-5.1); TOTAL BILIRUBIN 0.4 mg/dL (0.2-1.0); TOTAL PROTEIN 7.6 g/dL (6.4-8.2)
[2019-07-07] MEDS: LACTOBACILLUS RHAMNOSUS GG 1 CAPSULE. PO SCH (08:26)
[2019-07-07] MEDS: ASPIRIN CHEWABLE 81 MG TABLET. PO SCH (08:26)
[2019-07-07 08:27] VITALS: BP 154/68
[2019-07-07] MEDS: CYANOCOBALAMIN (VITAMIN B-12) 100 MCG TABLET PO SCH (08:27)
[2019-07-07] MEDS: FOLIC/VIT B COMP W-C (RENAL) TABLET. PO SCH (08:27)
[2019-07-07] MEDS: METOPROLOL TART IMMED RELEASE 50 MG TABLET. PO SCH (08:27)
[2019-07-07] MEDS: CALCIUM ACETATE 667 MG CAPSULE PO SCH (08:27)
[2019-07-07] MEDS: FERROUS SULFATE ORAL 300 MG/5 ML SOLUTION. PO SCH (08:27)
[2019-07-07] MEDS: CEFEPIME HCL IV Push 1 GM VIAL. IVP SCH (08:27)
[2019-07-07] MEDS: INSULIN LISPRO 300 UNITS/3 ML VIAL. SQ SCH (08:33)
[2019-07-07] MEDS ORDERED: AMOX1TAB10 PO (10:54)
[2019-07-07] MEDS ORDERED: METO50TA6 PO (10:54)
--- NOTE | 2019-07-07 10:55 | NUR ---
Pt daughter very angry and demanding for patient to be DC'd. Primary physician placed DC orders, however, awaiting return phone call from ID physician regarding DC antibiotic. This was explained to daughter and she was furious, stated she would be leaving then and have to pick her mother back up around 1700. Staff did apologize for the inconvenience and daughter left. Approximately fifteen minutes later, daughter returned, had mom vacate the room and walked up to the nursing station stating "we are leaving so you better have our paperwork". It was then explained that the ID physican had called back and that her discharge could be completed. She began yelling at staff stating that she "has a job just like we do and she needs to get to it". Again, staff apologized and stated that unfortunately we have no control over physicians calling back and we had to wait to make sure the patient would be discharged with the correct medication. Daughter stated that this was false information and that she had spoken with the doctor over an hour ago. She was educated that one physician had written the discharge, however, the anacillary phsyicians needed to be contacted for correct antibiotic prescription. Daughter then continuing to be verbally aggressive with staff. Patient daughter did not want to wait for staff to educated the patient on new discharge medications or discharge paperwork. Patient signed discharge and was taken out via wheelchair by staff members, accompanied by daughter as well. Prescriptions and discharge information given to patient at time of discharge.
--- NOTE | 2019-07-07 12:01 | PDOC ---
[employer] [facility] PROGRESS NOTE Chief Complaint Chief Complaint Fever Leukocytosis Lactic acidosis UTI with sepsis ESRD on HD Hyperkalemia Hypoalbuminemia Anemia HTN History of Present Illness History of Present Illness 07/07/2019 Pt was seen and examined. She reports feeling much better today and is ready for discharge. She is agreeable to continuing outpatient MWF dialysis and renal follow up. 07/06/2019 Pt was seen and examined. She had dialysis today and reports no complications from the dialysis. She reports that the ID doctor is waiting on some cultures to come back prior to discharging her. Reports willingness to D/C when we are ready to let her go. 07/05/2019 Pt was seen and examined. Pt reports that she is feeling much better today and requested discharge. No acute complaints at this time. 07/04/2019 Pt was seen and examined. Was resting comfortably on exam while receiving dialysis. No acute complaints. Vitals/I&O Vitals/I&O: Vital Signs Date Time Temp Pulse Resp B/P (MAP) Pulse Ox O2 Delivery O2 Flow Rate FiO2 07/07/19 08:27 79 154/68 07/07/19 08:00 Room Air 07/07/19 07:00 98.6 16 98 98.6 I & O 07/06/19 07/06/19 07/07/19 15:00 23:00 07:00 Intake Total 400 ml 300 ml Balance 400 ml 300 ml Physical Exam General: Alert, Oriented X3, Cooperative, No acute distress Heart: Regular rate, Normal S1, Normal S2 Lungs: Clear Abdomen: Normal bowel sounds, Soft, No tenderness, No hepatosplenomegaly Extremities: No clubbing, No cyanosis Skin: No rashes, No breakdown Labs Labs: Laboratory Tests Test 07/06/19 16:40 07/06/19 20:16 07/07/19 06:20 07/07/19 07:50 Glucose (Fingerstick) 322 mg/dL (70-99) 277 mg/dL (70-99) 168 mg/dL (70-99) White Blood Count 7.6 x10^3/uL (4.0-11.0) Red Blood Count 2.72 x10^6/uL (3.50-5.40) Hemoglobin 9.2 g/dL (12.0-15.5) Hematocrit 27.2 % (36.0-47.0) Mean Corpuscular Volume 100 fL (79-100) Mean Corpuscular Hemoglobin 34 pg (25-35) Mean Corpuscular Hemoglobin Concent 34 g/dL (31-37) Red Cell Distribution Width 14.1 % (11.5-14.5) Platelet Count 186 x10^3/uL (140-400) Neutrophils (%) (Auto) 74 % (31-73) Lymphocytes (%) (Auto) 14 % (24-48) Monocytes (%) (Auto) 10 % (0-9) Eosinophils (%) (Auto) 2 % (0-3) Basophils (%) (Auto) 1 % (0-3) Neutrophils # (Auto) 5.6 x10^3/uL (1.8-7.7) Lymphocytes # (Auto) 1.1 x10^3/uL (1.0-4.8) Monocytes # (Auto) 0.7 x10^3/uL (0.0-1.1) Eosinophils # (Auto) 0.1 x10^3/uL (0.0-0.7) Basophils # (Auto) 0.1 x10^3/uL (0.0-0.2) Sodium Level 138 mmol/L (136-145) Potassium Level 4.4 mmol/L (3.5-5.1) Chloride Level 99 mmol/L (98-107) Carbon Dioxide Level 28 mmol/L (21-32) Anion Gap 11 (6-14) Blood Urea Nitrogen 31 mg/dL (7-20) Creatinine 5.2 mg/dL (0.6-1.0) Estimated GFR (Cockcroft-Gault) 8.0 BUN/Creatinine Ratio 6 (6-20) Glucose Level 203 mg/dL (70-99) Calcium Level 8.9 mg/dL (8.5-10.1) Phosphorus Level 4.0 mg/dL (2.6-4.7) Magnesium Level 1.8 mg/dL (1.8-2.4) Total Bilirubin 0.4 mg/dL (0.2-1.0) Aspartate Amino Transf (AST/SGOT) 17 U/L (15-37) Alanine Aminotransferase (ALT/SGPT) 16 U/L (14-59) Alkaline Phosphatase 112 U/L (46-116) Total Protein 7.6 g/dL (6.4-8.2) Albumin 2.2 g/dL (3.4-5.0) Albumin/Globulin Ratio 0.4 (1.0-1.7) Review of Systems Review of Systems: Denies SOB Denies CP Denies N/V/D Assessment and Plan Assessmemt and Plan Problems Medical Problems: (1) Sepsis Status: Acute (2) UTI (lower urinary tract infection) Status: Acute Fever Leukocytosis Lactic acidosis UTI with sepsis ESRD on HD Hyperkalemia Hypoalbuminemia Anemia HTN Plan: 1) Plan to D/C patient today 2) Wrote patient prescriptions for Augmentin 875 (1 t po BID), metoprolol 50mg BID 3) Pt to continue outpatient nephrology f/u 4) Full Code 5) PT/OT 6) DVT prophylaxis Comment Review of Relevant I have reviewed the following items anastasiya (where applicable) has been applied. NIDIA SQUIRES III DO Jul 07, 2019 12:01
== END 2019-07-07 11:10 | disposition home or self-care (01) | DRG 871 ==
LOC: ER 08:49 → 6 SOUTH 11:00 → 2 SOUTH 07-04 02:57 → CVICU 07-06 16:09 → 2 SOUTH 07-06 16:27
PROVIDERS: ADMIT Internal Medicine; ATTEND Internal Medicine
PROC: 5A1D70Z Performance of Urinary Filtration, Intermittent, Less than 6 Hours Per Day (ICD-10-PCS; principal; 2019-07-04)
PROC: 5A1D70Z Performance of Urinary Filtration, Intermittent, Less than 6 Hours Per Day (ICD-10-PCS; 2019-07-05)
DX: A41.9 Sepsis, unspecified organism (principal); N18.6 End stage renal disease; I12.0 Hypertensive chronic kidney disease with stage 5 chronic kidney disease or end stage renal disease; N13.6 Pyonephrosis; D63.1 Anemia in chronic kidney disease; E11.22 Type 2 diabetes mellitus with diabetic chronic kidney disease; E11.42 Type 2 diabetes mellitus with diabetic polyneuropathy; E11.621 Type 2 diabetes mellitus with foot ulcer; E21.3 Hyperparathyroidism, unspecified; M19.90 Unspecified osteoarthritis, unspecified site; E78.00 Pure hypercholesterolemia, unspecified; E78.5 Hyperlipidemia, unspecified; E87.5 Hyperkalemia; I25.10 Atherosclerotic heart disease of native coronary artery without angina pectoris; I48.0 Paroxysmal atrial fibrillation; K57.90 Diverticulosis of intestine, part unspecified, without perforation or abscess without bleeding; Z82.49 Family history of ischemic heart disease and other diseases of the circulatory system; Z85.038 Personal history of other malignant neoplasm of large intestine; Z99.2 Dependence on renal dialysis; Z95.1 Presence of aortocoronary bypass graft; Z91.040 Latex allergy status
CPT/HCPCS: 36415; 71045; 74177; 78582; 80053; 80061; 80069; 81001; 82607; 82962; 83036; 83540; 83550; 83605; 83690; 83735; 84100; 84443; 84484; 85007; 85025; 85379; 85610; 87040; 87086; 87186; 93005; 93306; 96361; 96374; 96375; A9540; A9558; J0692; J0696; J0882; J1160; J1815; J2405; J3370; J3475; J3490; J7030; J7040; J7050; Q9966; Q9967; 99285-25; G0378

== ENCOUNTER → 2019-09-18 | Outpatient (CLI) | payer MEDICARE ==
[2019-08-09 11:45] VITALS: BP 132/56
[~2019-09-18] MED LIST changes: +AMIO200T4 PO; +HYDR-2765 PO; +METO50TA6 PO; +WARF3TAB54 PO
== END ==
LOC: NM 07:48
PROVIDERS: ATTEND Internal Medicine Cardiovascular Disease
DX: Z53.8 Procedure and treatment not carried out for other reasons (principal)

== ENCOUNTER 2020-01-06 14:54 | Emergency (ER) | payer MEDICARE, MEDICAID ==
[~2020-01-06] VITALS: Ht 165.1 cm; Wt 58.0 kg
[~2020-01-06 14:54] MED LIST changes: -ASCO500T2 PO; +ASCO500T4 PO; +CEFEPIME HCL IVP; +POLY17PO28 PO; +VANC250V IV
[2020-01-06 15:19] VITALS: BP 157/67
--- NOTE | 2020-01-06 15:42 | PHYS DOC ---
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 She has done well with that and the wound VAC seems to be working. She presents back here today because she just does not feel hungry. She has no pain she has no fever cough congestion. She has had some anxiety around why she is not hungry. She states she is drinking fluids though. [] Review of Systems: Review of Systems: Constitutional: Denies fever or chills. [] Eyes: Denies change in visual acuity. [] HENT: Denies nasal congestion or sore throat. [] Respiratory: Denies cough or shortness of breath. [] Cardiovascular: Denies chest pain or edema. [] GI: Denies abdominal pain, nausea, vomiting, bloody stools or diarrhea. [] : Denies dysuria. [] Musculoskeletal: Denies back pain or joint pain. [] Integument: Wound left leg [] Neurologic: Denies headache, focal weakness or sensory changes. [] Endocrine: Denies polyuria or polydipsia. [] Lymphatic: Denies swollen glands. [] Psychiatric: Reports anxiety [] Heart Score: Risk Factors: Risk Factors: DM, Current or recent (<one month) smoker, HTN, HLP, family history of CAD, obesity. Risk Scores: Score 0 - 3: 2.5% MACE over next 6 weeks - Discharge Home Score 4 - 6: 20.3% MACE over next 6 weeks - Admit for Clinical Observation Score 7 - 10: 72.7% MACE over next 6 weeks - Early Invasive Strategies Allergies: Allergies: Allergies Coded Allergies Type Severity Reaction Last Updated Verified latex Allergy Intermediate Rash 12/30/17 Yes sulfamethoxazole Allergy Intermediate Hives 08/05/19 Yes trimethoprim Allergy Intermediate Hives 08/05/19 Yes Physical Exam: PE: Constitutional: Frail, elderly does not appear to be acutely ill. [] HENT: Normocephalic, atraumatic, bilateral external ears normal, oropharynx moist, no oral exudates, nose normal. [] Eyes: PERRLA, EOMI, conjunctiva normal, no discharge. [] Neck: Normal range of motion, no tenderness, supple, no stridor. [] Cardiovascular:Heart rate regular rhythm, no murmur [] Lungs & Thorax: Bilateral breath sounds clear to auscultation [] Abdomen: Bowel sounds normal, soft, no tenderness, no masses, no pulsatile masses. [] Skin: Wound and wound VAC left leg looks great [] Back: No tenderness, no CVA tenderness. [] Extremities: No tenderness, no cyanosis, no clubbing, ROM intact, no edema. [] Neurologic: Alert and oriented X 3, normal motor function, normal sensory function, no focal deficits noted. [] Psychologic: Depressed affect l. [] Current Patient Data: Vital Signs: Vital Signs Date Time Temp Pulse Resp B/P (MAP) Pulse Ox O2 Delivery O2 Flow Rate FiO2 01/06/20 15:19 98.3 74 18 157/67 (97) 100 Room Air 98.3 EKG: EKG: [] Radiology/Procedures: Radiology/Procedures: [] Course & Med Decision Making: Course & Med Decision Making Pertinent Labs and Imaging studies reviewed. (See chart for details) [ED course: Evaluation reveals a 79-year-old female that does not appear acutely ill she is chronically ill however I do not believe there is anything acute going on today.] Dragon Disclaimer: Dragon Disclaimer: This electronic medical record was generated, in whole or in part, using a voice recognition dictation system. Departure Departure Impression: Primary Impression: Anxiety about health Disposition: HOME, SELF-CARE Condition: STABLE Referrals: LISA CALHOUN (PCP) Patient Instructions: Anxiety and Panic Attacks Additional Instructions: Return to the emergency department with any new or concerning symptoms ABILIO JACKSON DO January 06, 2020 15:41
== END 2020-01-06 16:04 | disposition home or self-care (01) ==
LOC: ER 14:54
DX: F41.9 Anxiety disorder, unspecified (principal); M19.90 Unspecified osteoarthritis, unspecified site; I12.9 Hypertensive chronic kidney disease with stage 1 through stage 4 chronic kidney disease, or unspecified chronic kidney disease; E11.22 Type 2 diabetes mellitus with diabetic chronic kidney disease; N18.9 Chronic kidney disease, unspecified; Z90.89 Acquired absence of other organs; Z98.890 Other specified postprocedural states; Z88.2 Allergy status to sulfonamides; Z91.040 Latex allergy status; Z88.8 Allergy status to other drugs, medicaments and biological substances
CPT/HCPCS: 99284

== ENCOUNTER 2020-01-13 14:20 | Emergency (ER) | payer MEDICARE, MEDICAID ==
[~2020-01-13] VITALS: Ht 144.8 cm; Wt 50.0 kg
[2020-01-13 16:26] LABS: BASO # 0.1 x10^3/uL (0.0-0.2); BASO % 1 % (0-3); EOS # 0.2 x10^3/uL (0.0-0.7); EOS % 3 % (0-3); HEMATOCRIT 27.3 % (36.0-47.0); HEMOGLOBIN 9.1 g/dL (12.0-15.5); LYMPH # 1.7 x10^3/uL (1.0-4.8); LYMPH % 22 % (24-48); MEAN CORPUSCULAR HEMOGLOBIN 33 pg (25-35); MEAN CORPUSCULAR HGB CONC 33 g/dL (31-37); MEAN CORPUSCULAR VOLUME 99 fL (79-100); MONO # 0.6 x10^3/uL (0.0-1.1); MONO % 8 % (0-9); NEUT # 5.2 x10^3/uL (1.8-7.7); NEUT % 66 % (31-73); PLATELET COUNT 160 x10^3/uL (140-400); RED BLOOD COUNT 2.75 x10^6/uL (3.50-5.40); RED CELL DISTRIBUTION WIDTH 15.5 % (11.5-14.5); WHITE BLOOD COUNT 7.8 x10^3/uL (4.0-11.0)
[2020-01-13 16:40] LABS: CALCIUM 8.6 mg/dL (8.5-10.1); CREATININE 6.9 mg/dL (0.6-1.0); GFR 5.8; POTASSIUM 4.5 mmol/L (3.5-5.1)
[2020-01-13 16:55] LABS: ALBUMIN 2.7 g/dL (3.4-5.0); ALBUMIN/GLOBULIN RATIO 0.5 (1.0-1.7); TOTAL BILIRUBIN 0.3 mg/dL (0.2-1.0); TOTAL PROTEIN 8.2 g/dL (6.4-8.2)
[2020-01-13 16:56] LABS: MAGNESIUM 2.2 mg/dL (1.8-2.4)
[2020-01-13] MEDS ORDERED: IV NORMAL SALINE 500ML BAG 500 ML IV ONE (17:30)
--- NOTE | 2020-01-13 17:44 | PHYS DOC ---
Past Medical History Past Medical History: Arthritis, Diabetes-Type II, High Cholesterol, Hypertension, Renal Disease, Renal Failure, UTI Additional Past Medical Histor: hyperkalemia, bladder retention, urinary stents Past Surgical History: Coronary Bypass Surgery Additional Past Surgical Histo: benign tumor removed from colon, bladder stent removed and reinserted, Smoking Status: Never Smoker Alcohol Use: None Drug Use: None General Adult EDM: Chief Complaint: WEAKNESS/GENERALIZED HPI: HPI: Patient is a 79 year old female who was brought here by her family for evaluation of generalized weakness. Patient has a history of end-stage renal failure on hemodialysis. Patient had her dialysis on Tuesday. Patient was admitted here and discharged home on the . She is currently under treatment for UTI and osteomyelitis on her left foot. She is under the care of the wound care center here problem. She has been coming to this ER every Tuesday for the same problem. Patient denies any any fever, no chest pain, no abdominal pain. Patient says she just feels tired and weak. Patient denies any cough. Review of Systems: Review of Systems: Constitutional: Denies fever or chills. [] Eyes: Denies change in visual acuity. [] HENT: Denies nasal congestion or sore throat. [] Respiratory: Denies cough or shortness of breath. [] Cardiovascular: Denies chest pain or edema. [] GI: Denies abdominal pain, nausea, vomiting, bloody stools or diarrhea. [] : Denies dysuria. [] Musculoskeletal: Denies back pain or joint pain. [] Integument: Denies rash. [] Neurologic: Denies headache, focal weakness or sensory changes. Positive for generalized weakness. Endocrine: Denies polyuria or polydipsia. [] Lymphatic: Denies swollen glands. [] Psychiatric: Denies depression or anxiety. [] Heart Score: Risk Factors: Risk Factors: DM, Current or recent (<one month) smoker, HTN, HLP, family history of CAD, obesity. Risk Scores: Score 0 - 3: 2.5% MACE over next 6 weeks - Discharge Home Score 4 - 6: 20.3% MACE over next 6 weeks - Admit for Clinical Observation Score 7 - 10: 72.7% MACE over next 6 weeks - Early Invasive Strategies Current Medications: Current Medications Medications (Trade) Dose Ordered Sig/Claudette Start Time Stop Time Status Last Admin Dose Admin Sodium Chloride 500 ml @ 500 mls/hr 1X ONCE 01/13/20 17:30 01/13/20 18:29 01/13/20 17:25 500 MLS/HR Allergies: Allergies: Allergies Coded Allergies Type Severity Reaction Last Updated Verified latex Allergy Intermediate Rash 12/30/17 Yes sulfamethoxazole Allergy Intermediate Hives 08/05/19 Yes trimethoprim Allergy Intermediate Hives 08/05/19 Yes Physical Exam: PE: Constitutional: Well developed, well nourished, no acute distress, non-toxic appearance. [] HENT: Normocephalic, atraumatic, bilateral external ears normal, oropharynx moist, no oral exudates, nose normal. [] Eyes: PERRLA, EOMI, conjunctiva normal, no discharge. [] Neck: Normal range of motion, no tenderness, supple, no stridor. [] Cardiovascular:Heart rate regular rhythm, no murmur [] Lungs & Thorax: Bilateral breath sounds clear to auscultation [] Abdomen: Bowel sounds normal, soft, no tenderness, no masses, no pulsatile masses. [] Skin: Warm, dry, Back: No tenderness, no CVA tenderness. [] Extremities: No tenderness, no cyanosis, no clubbing, ROM intact, no edema. [] Neurologic: Alert and oriented X 3, normal motor function, normal sensory function, no focal deficits noted. [] Psychologic: Affect normal, judgement normal, mood normal. [] Current Patient Data: Labs: Laboratory Tests Test 01/13/20 16:15 White Blood Count 7.8 x10^3/uL (4.0-11.0) Red Blood Count 2.75 x10^6/uL (3.50-5.40) L Hemoglobin 9.1 g/dL (12.0-15.5) L Hematocrit 27.3 % (36.0-47.0) L Mean Corpuscular Volume 99 fL (79-100) Mean Corpuscular Hemoglobin 33 pg (25-35) Mean Corpuscular Hemoglobin Concent 33 g/dL (31-37) Red Cell Distribution Width 15.5 % (11.5-14.5) H Platelet Count 160 x10^3/uL (140-400) Neutrophils (%) (Auto) 66 % (31-73) Lymphocytes (%) (Auto) 22 % (24-48) L Monocytes (%) (Auto) 8 % (0-9) Eosinophils (%) (Auto) 3 % (0-3) Basophils (%) (Auto) 1 % (0-3) Neutrophils # (Auto) 5.2 x10^3/uL (1.8-7.7) Lymphocytes # (Auto) 1.7 x10^3/uL (1.0-4.8) Monocytes # (Auto) 0.6 x10^3/uL (0.0-1.1) Eosinophils # (Auto) 0.2 x10^3/uL (0.0-0.7) Basophils # (Auto) 0.1 x10^3/uL (0.0-0.2) Sodium Level 138 mmol/L (136-145) Potassium Level 4.5 mmol/L (3.5-5.1) Chloride Level 99 mmol/L (98-107) Carbon Dioxide Level 31 mmol/L (21-32) Anion Gap 8 (6-14) Blood Urea Nitrogen 58 mg/dL (7-20) H Creatinine 6.9 mg/dL (0.6-1.0) H Estimated GFR (Cockcroft-Gault) 5.8 BUN/Creatinine Ratio 8 (6-20) Glucose Level 151 mg/dL (70-99) H Calcium Level 8.6 mg/dL (8.5-10.1) Magnesium Level 2.2 mg/dL (1.8-2.4) Total Bilirubin 0.3 mg/dL (0.2-1.0) Aspartate Amino Transferase (AST) 18 U/L (15-37) Alanine Aminotransferase (ALT) 10 U/L (14-59) L Alkaline Phosphatase 89 U/L (46-116) Total Protein 8.2 g/dL (6.4-8.2) Albumin 2.7 g/dL (3.4-5.0) L Albumin/Globulin Ratio 0.5 (1.0-1.7) L Laboratory Tests 01/13/20 16:15 Laboratory Tests 01/13/20 16:15 Vital Signs: Vital Signs Date Time Temp Pulse Resp B/P (MAP) Pulse Ox O2 Delivery O2 Flow Rate FiO2 01/13/20 15:05 98.5 84 20 186/77 (113) 99 Room Air 98.5 EKG: EKG: [] Radiology/Procedures: Radiology/Procedures: [] Course & Med Decision Making: Course & Med Decision Making Pertinent Labs and Imaging studies reviewed. (See chart for details) Patient is a 79-year-old female who is evaluated in ER due to general weakness, patient had no reason to be admitted to hospital today, she is scheduled for hemodialysis tomorrow. Dragon Disclaimer: Dragon Disclaimer: This electronic medical record was generated, in whole or in part, using a voice recognition dictation system. Departure Departure Impression: Primary Impression: Generalized weakness Disposition: HOME, SELF-CARE Condition: STABLE Referrals: LISA CALHOUN (PCP) PLEASE FOLLOW UP WITH YOUR FAMILY DOCTOR NEXT WEEK. Patient Instructions: Weakness Additional Instructions: Thank you for visiting our Emergency Department. We appreciate you trusting us with your care. If any additional problems come up don't hesitate to return to visit us. Please follow up with your primary care provider so they can plan additional care if needed and know about the problem that you had. If symptoms worsen come back to the Emergency Department. Any concerning symptoms that start such as chest pain, shortness of air, weakness or numbness on one side of the body, running high fevers or any other concerning symptoms return to the ER. CHARMAINE HAMEED DO January 13, 2020 17:44
[2020-01-13 18:00] VITALS: BP 176/74
== END 2020-01-13 18:10 | disposition home or self-care (01) ==
LOC: ER 14:20
DX: R53.1 Weakness (principal); E11.22 Type 2 diabetes mellitus with diabetic chronic kidney disease; I12.0 Hypertensive chronic kidney disease with stage 5 chronic kidney disease or end stage renal disease; N18.6 End stage renal disease; Z99.2 Dependence on renal dialysis; Z96.0 Presence of urogenital implants; Z95.1 Presence of aortocoronary bypass graft; Z95.5 Presence of coronary angioplasty implant and graft; Z87.440 Personal history of urinary (tract) infections; Z88.1 Allergy status to other antibiotic agents; Z88.2 Allergy status to sulfonamides; Z91.040 Latex allergy status
CPT/HCPCS: 36415; 80053; 83735; 85025; 99285; J7040

== ENCOUNTER 2020-02-04 05:30 | Inpatient (IN) | payer MEDICARE, MEDICAID ==
[~2020-02-04] VITALS: Ht 162.6 cm; Wt 60.9 kg
[2020-02-04 06:39] LABS: BASO # 0.1 x10^3/uL (0.0-0.2); BASO % 1 % (0-3); EOS # 0.2 x10^3/uL (0.0-0.7); EOS % 3 % (0-3); HEMATOCRIT 31.9 % (36.0-47.0); HEMOGLOBIN 10.5 g/dL (12.0-15.5); LYMPH # 1.3 x10^3/uL (1.0-4.8); LYMPH % 22 % (24-48); MEAN CORPUSCULAR HEMOGLOBIN 34 pg (25-35); MEAN CORPUSCULAR HGB CONC 33 g/dL (31-37); MEAN CORPUSCULAR VOLUME 104 fL (79-100); MONO # 0.5 x10^3/uL (0.0-1.1); MONO % 9 % (0-9); NEUT % 66 % (31-73); PLATELET COUNT 134 x10^3/uL (140-400); RED BLOOD COUNT 3.06 x10^6/uL (3.50-5.40); RED CELL DISTRIBUTION WIDTH 19.4 % (11.5-14.5); WHITE BLOOD COUNT 6.1 x10^3/uL (4.0-11.0)
[2020-02-04 06:43] LABS: CALCIUM 8.8 mg/dL (8.5-10.1); CREATININE 7.8 mg/dL (0.6-1.0); POTASSIUM 4.1 mmol/L (3.5-5.1)
[2020-02-04 06:49] LABS: ALBUMIN 2.9 g/dL (3.4-5.0); ALBUMIN/GLOBULIN RATIO 0.6 (1.0-1.7); TOTAL BILIRUBIN 0.6 mg/dL (0.2-1.0); TOTAL PROTEIN 7.7 g/dL (6.4-8.2)
--- NOTE | 2020-02-04 07:10 | PHYS DOC ---
Past Medical History Past Medical History: Arthritis, Diabetes-Type II, High Cholesterol, Hypertension, Renal Disease, Renal Failure, UTI Additional Past Medical Histor: hyperkalemia, bladder retention, urinary stents Past Surgical History: Coronary Bypass Surgery Additional Past Surgical Histo: benign tumor removed from colon, bladder stent removed and reinserted, Smoking Status: Never Smoker Alcohol Use: None Drug Use: None General Adult EDM: Chief Complaint: MULTIPLE COMPLAINTS HPI: HPI: 79-year-old female past medical history significant for ESRD (MWF), insulin- dependent diabetes, CAD with cardiac bypass, A. fib on warfarin, [facility] presents to the ED with complaints of confusion and altered mental status for the past few days, so weak now is unable to ambulate. Patient has no prior history of dementia or confusion, is normally independent. Daughter is present in the ED and states patient does not even recognize her. ROS: Unable to assess due to mental status. Allergies: Allergies: Allergies Coded Allergies Type Severity Reaction Last Updated Verified latex Allergy Intermediate Rash 12/30/17 Yes sulfamethoxazole Allergy Intermediate Hives 08/05/19 Yes trimethoprim Allergy Intermediate Hives 08/05/19 Yes Physical Exam: PE: Constitutional: Well developed, well nourished, no acute distress, non-toxic appearance, afebrile HENT: Normocephalic, atraumatic, bilateral external ears normal, oropharynx moist, no oral exudates, nose normal. [] Eyes: PERRLA, EOMI, conjunctiva normal, no discharge. [] Neck: Normal range of motion, no tenderness, supple, no stridor. [] Cardiovascular irregular rhythm, no murmur [] Lungs & Thorax: Bilateral breath sounds clear to auscultation [] Abdomen: Bowel sounds normal, soft, +epigastric ttp Skin: Warm, dry, no erythema, no rash. [] Back: No tenderness, Extremities: No tenderness, no cyanosis, no clubbing, ROM intact, no edema, moves all 4 extremities Neurologic: Alert, follows commands, does not know her name, year date of , normal motor function, normal sensory function, no focal deficits noted. [] Psychologic: In no distress\ : RN reports purulent urinalysis sample from straight cath obtained Current Patient Data: Labs: Laboratory Tests Test 02/04/20 06:10 White Blood Count 6.1 x10^3/uL (4.0-11.0) Red Blood Count 3.06 x10^6/uL (3.50-5.40) L Hemoglobin 10.5 g/dL (12.0-15.5) L Hematocrit 31.9 % (36.0-47.0) L Mean Corpuscular Volume 104 fL (79-100) H Mean Corpuscular Hemoglobin 34 pg (25-35) Mean Corpuscular Hemoglobin Concent 33 g/dL (31-37) Red Cell Distribution Width 19.4 % (11.5-14.5) H Platelet Count 134 x10^3/uL (140-400) L Neutrophils (%) (Auto) 66 % (31-73) Lymphocytes (%) (Auto) 22 % (24-48) L Monocytes (%) (Auto) 9 % (0-9) Eosinophils (%) (Auto) 3 % (0-3) Basophils (%) (Auto) 1 % (0-3) Neutrophils # (Auto) 4.0 x10^3/uL (1.8-7.7) Lymphocytes # (Auto) 1.3 x10^3/uL (1.0-4.8) Monocytes # (Auto) 0.5 x10^3/uL (0.0-1.1) Eosinophils # (Auto) 0.2 x10^3/uL (0.0-0.7) Basophils # (Auto) 0.1 x10^3/uL (0.0-0.2) Sodium Level 141 mmol/L (136-145) Potassium Level 4.1 mmol/L (3.5-5.1) Chloride Level 99 mmol/L (98-107) Carbon Dioxide Level 26 mmol/L (21-32) Anion Gap 16 (6-14) H Blood Urea Nitrogen 58 mg/dL (7-20) H Creatinine 7.8 mg/dL (0.6-1.0) H Estimated GFR (Cockcroft-Gault) 5.0 BUN/Creatinine Ratio 7 (6-20) Glucose Level 148 mg/dL (70-99) H Lactic Acid Level 1.0 mmol/L (0.4-2.0) Calcium Level 8.8 mg/dL (8.5-10.1) Total Bilirubin 0.6 mg/dL (0.2-1.0) Aspartate Amino Transferase (AST) 22 U/L (15-37) Alanine Aminotransferase (ALT) 28 U/L (14-59) Alkaline Phosphatase 132 U/L (46-116) H Total Protein 7.7 g/dL (6.4-8.2) Albumin 2.9 g/dL (3.4-5.0) L Albumin/Globulin Ratio 0.6 (1.0-1.7) L Laboratory Tests 02/04/20 06:10 Laboratory Tests 02/04/20 06:10 Vital Signs: Vital Signs Date Time Temp Pulse Resp B/P (MAP) Pulse Ox O2 Delivery O2 Flow Rate FiO2 02/04/20 06:48 77 22 208/117 (147) 98 Room Air 02/04/20 05:40 98.2 98.2 EKG: EKG: Sinus rhythm at 70 bpm, no axis deviation, QTC 464, no T wave inversions, no ST elevations or ST depressions Radiology/Procedures: Radiology/Procedures: IMAGING REPORT Signed PATIENT: BRYANT LOCKHART ACCOUNT: [id number] : 1940 LOCATION: ER AGE: 79 SEX: F EXAM STATUS: REG ER ORD. PHYSICIAN: NATALYA QUESADA DO REASON: ams PROCEDURE: PORTABLE CHEST 1V EXAM: PORTABLE CHEST 1V 02/04/2020 6:30 AM CLINICAL INDICATION:Altered mental status COMPARISON:Chest radiograph 08/04/2019 TECHNIQUE:AP upright chest radiograph FINDINGS:There are surgical changes of median sternotomy. The heart is within normal limits. Calcified atherosclerosis is in the thoracic aorta. The lungs are mildly hypoexpanded. There are coarse bilateral interstitial opacities, slightly increased in the lung bases. Trace fluid along the minor fissure. Otherwise no definite pleural effusion. No pneumothorax. No acute osseous abnormality. IMPRESSION:Slightly increased bilateral interstitial opacities suspicious for mild pulmonary edema. Electronically signed by: Rosy Timmons MD (02/04/2020 7:57 AM) [id number] DICTATED and SIGNED BY: ROSY TIMMONS MD DATE: 02/04/20 0757 IMAGING REPORT Signed PATIENT: BRYANT LOCKHART ACCOUNT: [id number] : 1940 LOCATION: ER AGE: 79 SEX: F EXAM STATUS: REG ER ORD. PHYSICIAN: NATALYA QUESADA DO REASON: ams PROCEDURE: CT HEAD WO CONTRAST EXAM: CT head without contrast INDICATION: Altered mental status COMPARISON: CT head 01/09/2020 TECHNIQUE: Axial CT imaging through the head without intravenous contrast. Sagittal and coronal reformats were obtained. One or more of the following individualized dose reduction techniques were utilized for this examination: 1. Automated exposure control 2. Adjustment of the mA and/or kV according to patient size 3. Use of iterative reconstruction technique. FINDINGS: The ventricles and sulci are mildly enlarged. There is mild periventricular white matter hypoattenuation. Ta-white matter differentiation is maintained. There is no intracranial hemorrhage, acute infarct, or mass lesion. Basal cisterns are clear. The skull and scalp are intact. The visualized portions of the paranasal sinuses and mastoid air cells are clear. The visualized portion of the globe and orbits are intact. IMPRESSION: No acute intracranial abnormality. Electronically signed by: Rosy Timmons MD (02/04/2020 7:16 AM) [id number] DICTATED and SIGNED BY: ROSY TIMMONS MD DATE: 02/04/20 0716 Impression: Impression: Concern for confusion likely secondary to UTI. CT the head unremarkable. Chest x-ray with mild pulmonary edema. Patient afebrile with no tachycardia, no lactic acidosis. Cbc shows normal at baseline macrocytic anemia with no leukocytosis. Chemistry showing ESRD with normal potassium. Coags wnl. Urinalysis positive for UTI. Due to ams will admit (lives alone w/)- daughter at bedside agrees with this plan. Pt does have uncontrolled hypertension on labs. Is 94-98% on room air. COVID testing pending. Pt stable at time of admission. Course & Med Decision Making: Course & Med Decision Making Pertinent Labs and Imaging studies reviewed. (See chart for details) [] Dragon Disclaimer: Dragon Disclaimer: This electronic medical record was generated, in whole or in part, using a voice recognition dictation system. Departure Departure Impression: Primary Impression: AMS (altered mental status) Additional Impressions: UTI (urinary tract infection) Uncontrolled hypertension Disposition: 09 ADMITTED INPATIENT Condition: GUARDED Referrals: LISA CALHOUN (PCP) Justicifation of Admission Dx: Justifications for Admission: Justification of Admission Dx: Yes Chronic Renal Failure: Hypertension Sepsis: Altered Mental Status NATALYA QUESADA DO Feb 04, 2020 07:10
[2020-02-04] MEDS ORDERED: cefTRIAXone IV Push 1 GM VIAL. IVP ONE (07:15)
--- NOTE | 2020-02-04 07:19 | RAD ---
EXAM: CT head without contrast INDICATION: Altered mental status COMPARISON: CT head 01/09/2020 TECHNIQUE: Axial CT imaging through the head without intravenous contrast. Sagittal and coronal reformats were obtained. One or more of the following individualized dose reduction techniques were utilized for this examination: 1. Automated exposure control 2. Adjustment of the mA and/or kV according to patient size 3. Use of iterative reconstruction technique. FINDINGS: The ventricles and sulci are mildly enlarged. There is mild periventricular white matter hypoattenuation. Ta-white matter differentiation is maintained. There is no intracranial hemorrhage, acute infarct, or mass lesion. Basal cisterns are clear. The skull and scalp are intact. The visualized portions of the paranasal sinuses and mastoid air cells are clear. The visualized portion of the globe and orbits are intact. IMPRESSION: No acute intracranial abnormality. Electronically signed by: Rosy Timmons MD (02/04/2020 7:16 AM) [id number]
[2020-02-04 07:25] LABS: BILIRUBIN,URINE NEGATIVE (NEG); CLARITY,URINE TURBID; COLOR,URINE STRAW
[2020-02-04 07:26] LABS: BACTERIA,URINE FEW /HPF (0-FEW); NITRITE,URINE NEGATIVE (NEG); PH,URINE 8.5 (<5.0-8.0); PROTEIN,URINE >=300 mg/dL (NEG-TRACE); RBC,URINE FIELD OBSCURED /HPF (0-2); SQUAMOUS EPITHELIAL CELL,UR FEW /LPF; UROBILINOGEN,URINE 0.2 mg/dL (0.2 mg/dL); WBC,URINE TNTC /HPF (0-4)
[2020-02-04 07:56] LABS: PROTHROMBIN TIME PATIENT 16.1 SEC (11.7-14.0)
[2020-02-04 07:57] LABS: MAGNESIUM 2.3 mg/dL (1.8-2.4)
--- NOTE | 2020-02-04 08:00 | RAD ---
EXAM: PORTABLE CHEST 1V 02/04/2020 6:30 AM CLINICAL INDICATION:Altered mental status COMPARISON:Chest radiograph 08/04/2019 TECHNIQUE:AP upright chest radiograph FINDINGS:There are surgical changes of median sternotomy. The heart is within normal limits. Calcified atherosclerosis is in the thoracic aorta. The lungs are mildly hypoexpanded. There are coarse bilateral interstitial opacities, slightly increased in the lung bases. Trace fluid along the minor fissure. Otherwise no definite pleural effusion. No pneumothorax. No acute osseous abnormality. IMPRESSION:Slightly increased bilateral interstitial opacities suspicious for mild pulmonary edema. Electronically signed by: Rosy Timmons MD (02/04/2020 7:57 AM) [id number]
--- NOTE | 2020-02-04 08:44 | PDOC1 ---
History and Physical Date of Admission Date of Admission DATE: 02/04/20 TIME: 08:43 Identification/Chief Complaint Chief Complaint Confusion Source Source: Caregiver, Chart review History of Present Illness History of Present Illness Ms Beach is a 79yo F w/ PMHx ESRD on HD, coronary artery disease and paroxysmal atrial fibrillation presented with confusion. She was recently seen a month ago for LLE infection with osteomyelitis and has significant pyuria now. Confused for the past few days, so weak now is unable to ambulate. Daughter is present in the ED and states patient does not even recognize her. CT head negative for acute abnormality. Labs consistent with ESRD, BUN 58. BP 208/117. Admitted for further treatment. Past Medical History Cardiovascular: CAD, HTN, Hyperlipidemia CENTRAL NERVOUS SYSTEM: Periperal neuropathy GI: Diverticulosis Heme/Onc: Anemia NOS, Cancer Hepatobiliary: No pertinent hx Psych: No pertinent hx Rheumatologic: No pertinent hx Infectious disease: Other Renal/: Chronic renal failure, UTI, Other Endocrine: Diabetes Past Surgical History Past Surgical History: CABG, Cataract Removal, Colectomy, Other Family History Family History: Hypertension Social History Smoke: No ALCOHOL: none Drugs: None Current Medications Current Medications Current Medications Ceftriaxone Sodium (Rocephin) 1 gm 1X ONCE IVP Last administered on 02/04/20at 08:17; Start 02/04/20 at 07:15; Stop 02/04/20 at 07:20; Status DC Active Scripts Active Culturelle (Lactobacillus Rhamnosus Gg) 1 Each Cap.sprink 1 Cap PO BID 30 Days Polyethylene Glycol 3350 17 Gm Powd.pack 17 Gm PO PRN DAILY PRN 30 Days Vancomycin HCl 250 Mg Vial 500 Mg IV MWF 14 Days [Cefepime Hcl] 1 GM Vial 3 Gm IVP Q24H 14 Days Amiodarone Hcl 200 Mg Tablet 200 Mg PO DAILY 30 Days Coumadin (Warfarin Sodium) 3 Mg Tablet 3 Mg PO 1X WARF 30 Days Hydrocodone-Apap 7.5-325 (Hydrocodone Bit/Acetaminophen) 1 Tab Tablet 1 Tab PO PRN Q4HRS PRN 6 Days Lantus Solostar (Insulin Glargine,Hum.rec.anlog) 100 Unit/1 Ml Insuln.pen 10 Unit SQ QHS Reported Simvastatin 40 Mg Tablet 1 Tab PO QHS Metoprolol Tartrate 50 Mg Tablet 1 Tab PO BID Funmi-Hannah Rx Tablet (Vit B Cmplx 3/Fa/Vit C/Biotin) 1 Each Tablet 1 Each PO DAILY Novolog (Insulin Aspart) 100 Unit/1 Ml Cartridge 6 Unit SQ TIDAC Calcium Acetate 667 Mg Tablet 2 Cap PO TIDAC Aspir 81 (Aspirin) 81 Mg Tablet. 1 Tab PO DAILY08 Allergies Allergies: Coded Allergies: latex (Verified Allergy, Intermediate, Rash, 12/30/17) sulfamethoxazole (Verified Allergy, Intermediate, Hives, 08/05/19) trimethoprim (Verified Allergy, Intermediate, Hives, 08/05/19) ROS Review of System Unable to obtain 12 point ROS due to patient confusion Physical Exam General: Alert, Cooperative, mild distress HEENT: Atraumatic, PERRLA, EOMI, Mucous membr. moist/pink Lungs: Clear to auscultation, Normal air movement Heart: S1S2, RRR, no thrills, no rubs Abdomen: Normal bowel sounds, Soft, No tenderness, No hepatosplenomegaly, No masses Extremities: Other (LLE without edema or erythema. Wound vac in place, intact ,did not remove) Neuro: Normal tone, Sensation intact, Reflexes 2+ Psych/Mental Status: Other (Confused) Vitals Vitals Vital Signs Date Time Temp Pulse Resp B/P (MAP) Pulse Ox O2 Delivery O2 Flow Rate FiO2 02/04/20 06:48 77 22 208/117 (147) 98 Room Air 02/04/20 05:40 98.2 98.2 Labs Labs Laboratory Tests Test 02/04/20 06:10 02/04/20 06:36 02/04/20 07:30 White Blood Count 6.1 x10^3/uL (4.0-11.0) Red Blood Count 3.06 x10^6/uL (3.50-5.40) Hemoglobin 10.5 g/dL (12.0-15.5) Hematocrit 31.9 % (36.0-47.0) Mean Corpuscular Volume 104 fL (79-100) Mean Corpuscular Hemoglobin 34 pg (25-35) Mean Corpuscular Hemoglobin Concent 33 g/dL (31-37) Red Cell Distribution Width 19.4 % (11.5-14.5) Platelet Count 134 x10^3/uL (140-400) Neutrophils (%) (Auto) 66 % (31-73) Lymphocytes (%) (Auto) 22 % (24-48) Monocytes (%) (Auto) 9 % (0-9) Eosinophils (%) (Auto) 3 % (0-3) Basophils (%) (Auto) 1 % (0-3) Neutrophils # (Auto) 4.0 x10^3/uL (1.8-7.7) Lymphocytes # (Auto) 1.3 x10^3/uL (1.0-4.8) Monocytes # (Auto) 0.5 x10^3/uL (0.0-1.1) Eosinophils # (Auto) 0.2 x10^3/uL (0.0-0.7) Basophils # (Auto) 0.1 x10^3/uL (0.0-0.2) Sodium Level 141 mmol/L (136-145) Potassium Level 4.1 mmol/L (3.5-5.1) Chloride Level 99 mmol/L (98-107) Carbon Dioxide Level 26 mmol/L (21-32) Anion Gap 16 (6-14) Blood Urea Nitrogen 58 mg/dL (7-20) Creatinine 7.8 mg/dL (0.6-1.0) Estimated GFR (Cockcroft-Gault) 5.0 BUN/Creatinine Ratio 7 (6-20) Glucose Level 148 mg/dL (70-99) Lactic Acid Level 1.0 mmol/L (0.4-2.0) Calcium Level 8.8 mg/dL (8.5-10.1) Total Bilirubin 0.6 mg/dL (0.2-1.0) Aspartate Amino Transf (AST/SGOT) 22 U/L (15-37) Alanine Aminotransferase (ALT/SGPT) 28 U/L (14-59) Alkaline Phosphatase 132 U/L (46-116) Total Protein 7.7 g/dL (6.4-8.2) Albumin 2.9 g/dL (3.4-5.0) Albumin/Globulin Ratio 0.6 (1.0-1.7) Urine Collection Type U cath Urine Color Straw Urine Clarity Turbid Urine pH 8.5 (<5.0-8.0) Urine Specific [place] 1.025 (1.000-1.030) Urine Protein >=300 mg/dL (NEG-TRACE) Urine Glucose (UA) Negative mg/dL (NEG) Urine Ketones (Stick) Negative mg/dL (NEG) Urine Blood Large (NEG) Urine Nitrite Negative (NEG) Urine Bilirubin Negative (NEG) Urine Urobilinogen Dipstick 0.2 mg/dL (0.2 mg/dL) Urine Leukocyte Esterase Large (NEG) Urine RBC Field obscured /HPF (0-2) Urine WBC Tntc /HPF (0-4) Urine Squamous Epithelial Cells Few /LPF Urine Bacteria Few /HPF (0-FEW) Prothrombin Time 16.1 SEC (11.7-14.0) Prothromb Time International Ratio 1.3 (0.8-1.1) Activated Partial Thromboplast Time 29 SEC (24-38) Magnesium Level 2.3 mg/dL (1.8-2.4) Creatine Kinase 22 U/L (26-192) Troponin I Quantitative < 0.017 ng/mL (0.000-0.055) Lipase 109 U/L (73-393) Laboratory Tests Test 02/04/20 06:10 02/04/20 06:36 02/04/20 07:30 White Blood Count 6.1 x10^3/uL (4.0-11.0) Red Blood Count 3.06 x10^6/uL (3.50-5.40) Hemoglobin 10.5 g/dL (12.0-15.5) Hematocrit 31.9 % (36.0-47.0) Mean Corpuscular Volume 104 fL (79-100) Mean Corpuscular Hemoglobin 34 pg (25-35) Mean Corpuscular Hemoglobin Concent 33 g/dL (31-37) Red Cell Distribution Width 19.4 % (11.5-14.5) Platelet Count 134 x10^3/uL (140-400) Neutrophils (%) (Auto) 66 % (31-73) Lymphocytes (%) (Auto) 22 % (24-48) Monocytes (%) (Auto) 9 % (0-9) Eosinophils (%) (Auto) 3 % (0-3) Basophils (%) (Auto) 1 % (0-3) Neutrophils # (Auto) 4.0 x10^3/uL (1.8-7.7) Lymphocytes # (Auto) 1.3 x10^3/uL (1.0-4.8) Monocytes # (Auto) 0.5 x10^3/uL (0.0-1.1) Eosinophils # (Auto) 0.2 x10^3/uL (0.0-0.7) Basophils # (Auto) 0.1 x10^3/uL (0.0-0.2) Sodium Level 141 mmol/L (136-145) Potassium Level 4.1 mmol/L (3.5-5.1) Chloride Level 99 mmol/L (98-107) Carbon Dioxide Level 26 mmol/L (21-32) Anion Gap 16 (6-14) Blood Urea Nitrogen 58 mg/dL (7-20) Creatinine 7.8 mg/dL (0.6-1.0) Estimated GFR (Cockcroft-Gault) 5.0 BUN/Creatinine Ratio 7 (6-20) Glucose Level 148 mg/dL (70-99) Lactic Acid Level 1.0 mmol/L (0.4-2.0) Calcium Level 8.8 mg/dL (8.5-10.1) Total Bilirubin 0.6 mg/dL (0.2-1.0) Aspartate Amino Transf (AST/SGOT) 22 U/L (15-37) Alanine Aminotransferase (ALT/SGPT) 28 U/L (14-59) Alkaline Phosphatase 132 U/L (46-116) Total Protein 7.7 g/dL (6.4-8.2) Albumin 2.9 g/dL (3.4-5.0) Albumin/Globulin Ratio 0.6 (1.0-1.7) Urine Collection Type U cath Urine Color Straw Urine Clarity Turbid Urine pH 8.5 (<5.0-8.0) Urine Specific [place] 1.025 (1.000-1.030) Urine Protein >=300 mg/dL (NEG-TRACE) Urine Glucose (UA) Negative mg/dL (NEG) Urine Ketones (Stick) Negative mg/dL (NEG) Urine Blood Large (NEG) Urine Nitrite Negative (NEG) Urine Bilirubin Negative (NEG) Urine Urobilinogen Dipstick 0.2 mg/dL (0.2 mg/dL) Urine Leukocyte Esterase Large (NEG) Urine RBC Field obscured /HPF (0-2) Urine WBC Tntc /HPF (0-4) Urine Squamous Epithelial Cells Few /LPF Urine Bacteria Few /HPF (0-FEW) Prothrombin Time 16.1 SEC (11.7-14.0) Prothromb Time International Ratio 1.3 (0.8-1.1) Activated Partial Thromboplast Time 29 SEC (24-38) Magnesium Level 2.3 mg/dL (1.8-2.4) Creatine Kinase 22 U/L (26-192) Troponin I Quantitative < 0.017 ng/mL (0.000-0.055) Lipase 109 U/L (73-393) Images Images Head CT: The ventricles and sulci are mildly enlarged. There is mild periventricular white matter hypoattenuation. Ta-white matter differentiation is maintained. There is no intracranial hemorrhage, acute infarct, or mass lesion. Basal cisterns are clear. The skull and scalp are intact. The visualized portions of the paranasal sinuses and mastoid air cells are clear. The visualized portion of the globe and orbits are intact. IMPRESSION: No acute intracranial abnormality. CXR - There are surgical changes of median sternotomy. The heart is within normal limits. Calcified atherosclerosis is in the thoracic aorta. The lungs are mildly hypoexpanded. There are coarse bilateral interstitial opacities, slightly increased in the lung bases. Trace fluid along the minor fissure. Otherwise no definite pleural effusion. No pneumothorax. No acute osseous abnormality. IMPRESSION:Slightly increased bilateral interstitial opacities suspicious for mild pulmonary edema. VTE Prophylaxis Ordered VTE Prophylaxis Devices: Yes VTE Pharmacological Prophylaxi: Yes Assessment/Plan Assessment/Plan A/P: Acute encephalopathy - in patient with h/o MDRO UTI and recent bone culture positive and elevated blood pressure looks to be toxic and metabolic encephalopathy HTN urgency - will restart meds. PRN hydralazine ESRD oN HD - consult nephrology Paroxysmal Afib - on warfarin and amiodarone Acute encephalopathy - likely UTI Left foot diabetic infection, osteomyelitis based on op-report with purulent drainage and previous wound infection, chronic callus on plantar foot, Surface swab cultures polymicrobial organism Cultures positive for Bacteroides, Proteus, E. coli, enterococcus 12/24 Status post incision and drainage December 29, 2019 - bone cult 12/28 with Enterococcus Avium Diabetes mellitus - sliding scale + lantus PVD s/p angioplasty 12/26 on Left polpliteal - post tib with chronic total occlusion UTI - with pyuria, leukocyte esterase and hematuria, empiric antibiotics. consult ID Thrombocytopenia - will monitor. Previously noted in July 2019, resolved since Anemia - of chronic renal disease, macrocytosis noted, will check b12 FEN - Renal ADA diet PPX - warfarin FULL CODE Dispo - inpatient for above COVID-19 CRITERIA: The patient was evaluated during the global COVID-19 pandemic, and that diagnosis was suspected/considered upon their initial presentation. Their evaluation, treatment and testing was consistent with current guidelines for patients who present with complaints or symptoms that may be related to COVID-19. Justicifation of Admission Dx: Justifications for Admission: Justification of Admission Dx: Yes CHF: Cardiac Arrhythmias Altered Mental Status: Altered Mental Status ITA MOSQUEDA MD Feb 04, 2020 08:44
--- NOTE | 2020-02-04 08:53 | EKG ---
[facility] [address] [place] [address] Test Date: 2020-02-04 Test Time: 07:29:52 Pat Name: BRYANT LOCKHART Department: Room: Gender: F Manager Switch: : 1940 Requested By: NATALYA QUESADA Order Number: [id number] Reading MD: Umang Campuzano Measurements Intervals [place] Rate: 78 P: -45 NM: 128 QRS: -20 QRSD: 92 T: 57 QT: 404 QTc: 464 Interpretive Statements SINUS RHYTHM POSSIBLE PREVIOUS SEPTAL INFARCT Electronically Signed On 02-08-2020 15:51:51 CDT by Umang Campuzano
[2020-02-04 10:53] VITALS: BP 165/66
--- NOTE | 2020-02-04 11:10 | PDOC2 ---
CONSULT Date of Consult Date of Consult DATE: 02/04/20 TIME: 11:06 Reason for Consult Reason for Consult: ESRD Referring Physician Referring Physician: JAYLIN Identification/Chief Complaint Chief Complaint CONFUSION Source Source: Chart review History of Present Illness Reason for Visit: THIS IS A 79 YR OLD WITH ESRD ON MWF. ADMITTED WITH CONFUSION. EVAL C/W ESRD. LABS ARE OTHERWISE C/W ESRD. HAS ESRD DUE TO DM II AND HTN. HEAD CT NEG FOR ACUTE FINDINGS Past Medical History Cardiovascular: CAD, HTN, Hyperlipidemia CENTRAL NERVOUS SYSTEM: Periperal neuropathy GI: Diverticulosis Heme/Onc: Anemia NOS, Cancer Hepatobiliary: No pertinent hx Psych: No pertinent hx Rheumatologic: No pertinent hx Infectious disease: Other Renal/: Chronic renal failure, UTI, Other Endocrine: Diabetes, Hyperparathyroidism Past Surgical History Past Surgical History: CABG, Cataract Removal, Colectomy, Other Family History Family History: Hypertension Social History ALCOHOL: none Drugs: None Lives: with Family Current Problem List Problem List Problems Medical Problems: (1) AMS (altered mental status) Status: Acute (2) Uncontrolled hypertension Status: Acute (3) UTI (urinary tract infection) Status: Acute Current Medications Current Medications Current Medications Ceftriaxone Sodium (Rocephin) 1 gm 1X ONCE IVP Last administered on 02/04/20at 0 8:17; Start 02/04/20 at 07:15; Stop 02/04/20 at 07:20; Status DC Active Scripts Active Culturelle (Lactobacillus Rhamnosus Gg) 1 Each Cap.sprink 1 Cap PO BID 30 Days Polyethylene Glycol 3350 17 Gm Powd.pack 17 Gm PO PRN DAILY PRN 30 Days Vancomycin HCl 250 Mg Vial 500 Mg IV MWF 14 Days [Cefepime Hcl] 1 GM Vial 3 Gm IVP Q24H 14 Days Amiodarone Hcl 200 Mg Tablet 200 Mg PO DAILY 30 Days Coumadin (Warfarin Sodium) 3 Mg Tablet 3 Mg PO 1X WARF 30 Days Hydrocodone-Apap 7.5-325 (Hydrocodone Bit/Acetaminophen) 1 Tab Tablet 1 Tab PO PRN Q4HRS PRN 6 Days Lantus Solostar (Insulin Glargine,Hum.rec.anlog) 100 Unit/1 Ml Insuln.pen 10 Unit SQ QHS Reported Simvastatin 40 Mg Tablet 1 Tab PO QHS Metoprolol Tartrate 50 Mg Tablet 1 Tab PO BID Funmi-Hannah Rx Tablet (Vit B Cmplx 3/Fa/Vit C/Biotin) 1 Each Tablet 1 Each PO DAILY Novolog (Insulin Aspart) 100 Unit/1 Ml Cartridge 6 Unit SQ TIDAC Calcium Acetate 667 Mg Tablet 2 Cap PO TIDAC Aspir 81 (Aspirin) 81 Mg Tablet. 1 Tab PO DAILY08 Allergies Allergies: Coded Allergies: latex (Verified Allergy, Intermediate, Rash, 12/30/17) sulfamethoxazole (Verified Allergy, Intermediate, Hives, 08/05/19) trimethoprim (Verified Allergy, Intermediate, Hives, 08/05/19) ROS Review of System UNABLE TO OBTAIN Physical Exam General: Alert, Cooperative, No acute distress HEENT: Atraumatic, PERRLA Lungs: Clear to auscultation Heart: Regular rate Abdomen: Normal bowel sounds, Soft, No tenderness Extremities: No clubbing Skin: No breakdown Neuro: Other (CONFUSED, NO ASYMMETRY) MUSCULOSKELETAL: No joint tenderness, No deformity Vitals VITALS Vital Signs Date Time Temp Pulse Resp B/P (MAP) Pulse Ox O2 Delivery O2 Flow Rate FiO2 02/04/20 10:55 Room Air 02/04/20 10:53 98.4 75 13 165/66 (99) 93 98.4 Labs Labs Laboratory Tests Test 02/04/20 06:10 02/04/20 06:36 02/04/20 07:30 White Blood Count 6.1 x10^3/uL (4.0-11.0) Red Blood Count 3.06 x10^6/uL (3.50-5.40) Hemoglobin 10.5 g/dL (12.0-15.5) Hematocrit 31.9 % (36.0-47.0) Mean Corpuscular Volume 104 fL (79-100) Mean Corpuscular Hemoglobin 34 pg (25-35) Mean Corpuscular Hemoglobin Concent 33 g/dL (31-37) Red Cell Distribution Width 19.4 % (11.5-14.5) Platelet Count 134 x10^3/uL (140-400) Neutrophils (%) (Auto) 66 % (31-73) Lymphocytes (%) (Auto) 22 % (24-48) Monocytes (%) (Auto) 9 % (0-9) Eosinophils (%) (Auto) 3 % (0-3) Basophils (%) (Auto) 1 % (0-3) Neutrophils # (Auto) 4.0 x10^3/uL (1.8-7.7) Lymphocytes # (Auto) 1.3 x10^3/uL (1.0-4.8) Monocytes # (Auto) 0.5 x10^3/uL (0.0-1.1) Eosinophils # (Auto) 0.2 x10^3/uL (0.0-0.7) Basophils # (Auto) 0.1 x10^3/uL (0.0-0.2) Sodium Level 141 mmol/L (136-145) Potassium Level 4.1 mmol/L (3.5-5.1) Chloride Level 99 mmol/L (98-107) Carbon Dioxide Level 26 mmol/L (21-32) Anion Gap 16 (6-14) Blood Urea Nitrogen 58 mg/dL (7-20) Creatinine 7.8 mg/dL (0.6-1.0) Estimated GFR (Cockcroft-Gault) 5.0 BUN/Creatinine Ratio 7 (6-20) Glucose Level 148 mg/dL (70-99) Lactic Acid Level 1.0 mmol/L (0.4-2.0) Calcium Level 8.8 mg/dL (8.5-10.1) Total Bilirubin 0.6 mg/dL (0.2-1.0) Aspartate Amino Transf (AST/SGOT) 22 U/L (15-37) Alanine Aminotransferase (ALT/SGPT) 28 U/L (14-59) Alkaline Phosphatase 132 U/L (46-116) Total Protein 7.7 g/dL (6.4-8.2) Albumin 2.9 g/dL (3.4-5.0) Albumin/Globulin Ratio 0.6 (1.0-1.7) Urine Collection Type U cath Urine Color Straw Urine Clarity Turbid Urine pH 8.5 (<5.0-8.0) Urine Specific [place] 1.025 (1.000-1.030) Urine Protein >=300 mg/dL (NEG-TRACE) Urine Glucose (UA) Negative mg/dL (NEG) Urine Ketones (Stick) Negative mg/dL (NEG) Urine Blood Large (NEG) Urine Nitrite Negative (NEG) Urine Bilirubin Negative (NEG) Urine Urobilinogen Dipstick 0.2 mg/dL (0.2 mg/dL) Urine Leukocyte Esterase Large (NEG) Urine RBC Field obscured /HPF (0-2) Urine WBC Tntc /HPF (0-4) Urine Squamous Epithelial Cells Few /LPF Urine Bacteria Few /HPF (0-FEW) Prothrombin Time 16.1 SEC (11.7-14.0) Prothromb Time International Ratio 1.3 (0.8-1.1) Activated Partial Thromboplast Time 29 SEC (24-38) Magnesium Level 2.3 mg/dL (1.8-2.4) Creatine Kinase 22 U/L (26-192) Troponin I Quantitative < 0.017 ng/mL (0.000-0.055) Lipase 109 U/L (73-393) Laboratory Tests Test 02/04/20 06:10 02/04/20 06:36 02/04/20 07:30 White Blood Count 6.1 x10^3/uL (4.0-11.0) Red Blood Count 3.06 x10^6/uL (3.50-5.40) Hemoglobin 10.5 g/dL (12.0-15.5) Hematocrit 31.9 % (36.0-47.0) Mean Corpuscular Volume 104 fL (79-100) Mean Corpuscular Hemoglobin 34 pg (25-35) Mean Corpuscular Hemoglobin Concent 33 g/dL (31-37) Red Cell Distribution Width 19.4 % (11.5-14.5) Platelet Count 134 x10^3/uL (140-400) Neutrophils (%) (Auto) 66 % (31-73) Lymphocytes (%) (Auto) 22 % (24-48) Monocytes (%) (Auto) 9 % (0-9) Eosinophils (%) (Auto) 3 % (0-3) Basophils (%) (Auto) 1 % (0-3) Neutrophils # (Auto) 4.0 x10^3/uL (1.8-7.7) Lymphocytes # (Auto) 1.3 x10^3/uL (1.0-4.8) Monocytes # (Auto) 0.5 x10^3/uL (0.0-1.1) Eosinophils # (Auto) 0.2 x10^3/uL (0.0-0.7) Basophils # (Auto) 0.1 x10^3/uL (0.0-0.2) Sodium Level 141 mmol/L (136-145) Potassium Level 4.1 mmol/L (3.5-5.1) Chloride Level 99 mmol/L (98-107) Carbon Dioxide Level 26 mmol/L (21-32) Anion Gap 16 (6-14) Blood Urea Nitrogen 58 mg/dL (7-20) Creatinine 7.8 mg/dL (0.6-1.0) Estimated GFR (Cockcroft-Gault) 5.0 BUN/Creatinine Ratio 7 (6-20) Glucose Level 148 mg/dL (70-99) Lactic Acid Level 1.0 mmol/L (0.4-2.0) Calcium Level 8.8 mg/dL (8.5-10.1) Total Bilirubin 0.6 mg/dL (0.2-1.0) Aspartate Amino Transf (AST/SGOT) 22 U/L (15-37) Alanine Aminotransferase (ALT/SGPT) 28 U/L (14-59) Alkaline Phosphatase 132 U/L (46-116) Total Protein 7.7 g/dL (6.4-8.2) Albumin 2.9 g/dL (3.4-5.0) Albumin/Globulin Ratio 0.6 (1.0-1.7) Urine Collection Type U cath Urine Color Straw Urine Clarity Turbid Urine pH 8.5 (<5.0-8.0) Urine Specific [place] 1.025 (1.000-1.030) Urine Protein >=300 mg/dL (NEG-TRACE) Urine Glucose (UA) Negative mg/dL (NEG) Urine Ketones (Stick) Negative mg/dL (NEG) Urine Blood Large (NEG) Urine Nitrite Negative (NEG) Urine Bilirubin Negative (NEG) Urine Urobilinogen Dipstick 0.2 mg/dL (0.2 mg/dL) Urine Leukocyte Esterase Large (NEG) Urine RBC Field obscured /HPF (0-2) Urine WBC Tntc /HPF (0-4) Urine Squamous Epithelial Cells Few /LPF Urine Bacteria Few /HPF (0-FEW) Prothrombin Time 16.1 SEC (11.7-14.0) Prothromb Time International Ratio 1.3 (0.8-1.1) Activated Partial Thromboplast Time 29 SEC (24-38) Magnesium Level 2.3 mg/dL (1.8-2.4) Creatine Kinase 22 U/L (26-192) Troponin I Quantitative < 0.017 ng/mL (0.000-0.055) Lipase 109 U/L (73-393) Assessment/Plan Assessment/Plan IMP UTI MET ENCEPHALOPATHY POSSIBLE SEPSIS DM II ESRD AFIB ANEMIA OF ESRD PLAN ANTIBIOTICS HD MWF HD TODAY UF TO DW WILL FOLLOW MELONIE GUAMAN MD Feb 04, 2020 11:10
[2020-02-04] MEDS ORDERED: DEXTROSE 50% 25 GM / 50ML DISP.SYRIN. IV PRN (11:45)
[2020-02-04] MEDS ORDERED: POLYETHYLENE GLYCOL 3350 17 GM PACKET. PO PRN (11:45)
[2020-02-04] MEDS ORDERED: PUSH IVP SCH (11:45)
[2020-02-04] MEDS ORDERED: VANCOMYCIN HCL 500 MG IV SCH (11:45)
[2020-02-04] MEDS ORDERED: HYDROcodone/APAP 7.5/325MG 1 TAB TABLET PO PRN (11:45)
[2020-02-04] MEDS ORDERED: CEFEPIME HCL IVP SCH (11:45)
[2020-02-04] MEDS: METOPROLOL TART IMMED RELEASE 50 MG TABLET. PO SCH ×2 (12:00→20:54)
[2020-02-04] MEDS: INSULIN LISPRO 300 UNITS/3 ML VIAL. SQ SCH ×5 (12:00→20:57)
--- NOTE | 2020-02-04 12:36 | PDOC ---
Infectious Disease Note Subjective: Subjective Patient well-known to us See last ID consult for full details See last ID progress note from January 08 79-year-old female past medical history significant for ESRD (MWF), insulin- dependent diabetes, CAD with cardiac bypass, A. fib on warfarin, left lower extremity osteomyelitis with wound VAC on empiric IV Vanco and cefepime Brought in to ER with complaints of confusion and altered mental status of the last few days Patient also has generalized weakness CT head negative for acute changes Chest x-ray shows bilateral infiltrates UA showed pyuria COVID-19 ordered Patient admitted to ICU for COVID-19.PUI Patient has been restarted on IV Vanco and cefepime which she was on as outpatient Patient confused. Lying in bed comfortably ROS: Unable to assess due to mental status. Vital Signs: Vital Signs Vital Signs Date Time Temp Pulse Resp B/P (MAP) Pulse Ox O2 Delivery O2 Flow Rate FiO2 02/04/20 10:55 Room Air 02/04/20 10:53 98.4 75 13 165/66 (99) 93 98.4 Physical Exam: PHYSICAL EXAM GENERAL: Sleepy but arousable, confused on nasal O2, nontoxic appearing HEENT: Normocephalic, atraumatic, anicteric. No thrush. NECK: Supple. LUNGS: Clear. No accessory muscle use, nonlabored HEART: S1, S2. ABDOMEN: Soft, nontender. Bowel sounds present. EXTREMITIES: LLE without edema or erythema. Wound vac in place, intact ,did not take it down DERMATOLOGIC: Warm, dry. No generalized rash except for above. NEUROLOGIC: Alert and oriented x 3, grossly nonfocal. Medications: Inpatient Meds: Current Medications Medications (Trade) Dose Ordered Sig/Claudette Start Time Stop Time Status Last Admin Dose Admin Acetaminophen/ Hydrocodone Bitart (Lortab 7.5/325) 1 tab PRN Q4HRS PRN 02/04/20 11:45 Amiodarone HCl (Cordarone) 200 mg DAILY 02/04/20 12:00 Aspirin (Ecotrin) 81 mg DAILY08 02/04/20 12:00 Atorvastatin Calcium (Lipitor) 20 mg QHS 02/04/20 21:00 Calcium Acetate (Phoslo) 1,334 mg TIDWMEALS 02/04/20 12:00 Ceftriaxone Sodium (Rocephin) 1 gm 1X ONCE 02/04/20 07:15 02/04/20 07:20 DC 02/04/20 08:17 Dextrose (Dextrose 50%-Water Syringe) 12.5 gm PRN Q15MIN PRN 02/04/20 11:45 Insulin Glargine (Lantus Syringe) 10 unit QHS 02/04/20 21:00 Insulin Human Lispro (HumaLOG) 0-9 UNITS TIDACHC 02/04/20 12:00 Lactobacillus Rhamnosus (Culturelle) 1 cap BID 02/04/20 21:00 Metoprolol Tartrate (Lopressor) 50 mg BID 02/04/20 12:00 Non-Formulary Medication (Vancomycin HCl ) 500 mg MWF 02/04/20 11:45 UNV Non-Formulary Medication ([CEFEPIME HCL IV Push] ) 3 gm Q24H 02/04/20 11:45 UNV Polyethylene Glycol (miraLAX PACKET) 17 gm PRN DAILY PRN 02/04/20 11:45 Vitamin B Complex/ Vitamin C (Funmi-Hannah) 1 tab DAILY 02/04/20 12:00 Warfarin Sodium (Coumadin) 3 mg DAILY16 02/04/20 16:00 Labs: Lab Laboratory Tests Test 02/04/20 06:10 02/04/20 06:36 02/04/20 07:30 White Blood Count 6.1 x10^3/uL (4.0-11.0) Red Blood Count 3.06 x10^6/uL (3.50-5.40) Hemoglobin 10.5 g/dL (12.0-15.5) Hematocrit 31.9 % (36.0-47.0) Mean Corpuscular Volume 104 fL (79-100) Mean Corpuscular Hemoglobin 34 pg (25-35) Mean Corpuscular Hemoglobin Concent 33 g/dL (31-37) Red Cell Distribution Width 19.4 % (11.5-14.5) Platelet Count 134 x10^3/uL (140-400) Neutrophils (%) (Auto) 66 % (31-73) Lymphocytes (%) (Auto) 22 % (24-48) Monocytes (%) (Auto) 9 % (0-9) Eosinophils (%) (Auto) 3 % (0-3) Basophils (%) (Auto) 1 % (0-3) Neutrophils # (Auto) 4.0 x10^3/uL (1.8-7.7) Lymphocytes # (Auto) 1.3 x10^3/uL (1.0-4.8) Monocytes # (Auto) 0.5 x10^3/uL (0.0-1.1) Eosinophils # (Auto) 0.2 x10^3/uL (0.0-0.7) Basophils # (Auto) 0.1 x10^3/uL (0.0-0.2) Sodium Level 141 mmol/L (136-145) Potassium Level 4.1 mmol/L (3.5-5.1) Chloride Level 99 mmol/L (98-107) Carbon Dioxide Level 26 mmol/L (21-32) Anion Gap 16 (6-14) Blood Urea Nitrogen 58 mg/dL (7-20) Creatinine 7.8 mg/dL (0.6-1.0) Estimated GFR (Cockcroft-Gault) 5.0 BUN/Creatinine Ratio 7 (6-20) Glucose Level 148 mg/dL (70-99) Lactic Acid Level 1.0 mmol/L (0.4-2.0) Calcium Level 8.8 mg/dL (8.5-10.1) Total Bilirubin 0.6 mg/dL (0.2-1.0) Aspartate Amino Transf (AST/SGOT) 22 U/L (15-37) Alanine Aminotransferase (ALT/SGPT) 28 U/L (14-59) Alkaline Phosphatase 132 U/L (46-116) Total Protein 7.7 g/dL (6.4-8.2) Albumin 2.9 g/dL (3.4-5.0) Albumin/Globulin Ratio 0.6 (1.0-1.7) Urine Collection Type U cath Urine Color Straw Urine Clarity Turbid Urine pH 8.5 (<5.0-8.0) Urine Specific [place] 1.025 (1.000-1.030) Urine Protein >=300 mg/dL (NEG-TRACE) Urine Glucose (UA) Negative mg/dL (NEG) Urine Ketones (Stick) Negative mg/dL (NEG) Urine Blood Large (NEG) Urine Nitrite Negative (NEG) Urine Bilirubin Negative (NEG) Urine Urobilinogen Dipstick 0.2 mg/dL (0.2 mg/dL) Urine Leukocyte Esterase Large (NEG) Urine RBC Field obscured /HPF (0-2) Urine WBC Tntc /HPF (0-4) Urine Squamous Epithelial Cells Few /LPF Urine Bacteria Few /HPF (0-FEW) Prothrombin Time 16.1 SEC (11.7-14.0) Prothromb Time International Ratio 1.3 (0.8-1.1) Activated Partial Thromboplast Time 29 SEC (24-38) Magnesium Level 2.3 mg/dL (1.8-2.4) Creatine Kinase 22 U/L (26-192) Troponin I Quantitative < 0.017 ng/mL (0.000-0.055) Lipase 109 U/L (73-393) Objective: Assessment: Encephalopathy UTI Left foot diabetic infection, osteomyelitis based on op-report with purulent drainage and previous wound infection, chronic callus on plantar foot, Surface swab cultures polymicrobial organism Cultures positive for Bacteroides, Proteus, E. coli, enterococcus 12/24 Status post incision and drainage December 29, 2019 - bone cult 12/28 with Enterococcus Avium Chronic kidney disease, on hemodialysis. Diabetes mellitus. History of extended spectrum beta-lactamase urinary tract infection in the past. PVD s/p angioplasty 12/26 on Left polpliteal - post tib with chronic total occlusion Atrial fibrillation Plan: Plan of Care Continue vancomycin, renal dosing DC cefepime Start Merrem for now Follow-up urine culture and blood culture Monitor labs Continue aspiration precaution Maintain droplet isolation precaution until COVID-19 results Continue supportive care Discussed with nursing staff MARIA ESTHER العلي MD Feb 04, 2020 12:36
[2020-02-04] MEDS: CALCIUM ACETATE 667 MG CAPSULE PO SCH ×2 (13:46→17:00)
[2020-02-04] MEDS: FOLIC/VIT B COMP W-C (RENAL) TABLET. PO SCH (13:46)
[2020-02-04] MEDS: ASPIRIN ENTERIC COATED 81 MG TABLET.DR. PO SCH (13:46)
[2020-02-04] MEDS: AMIODARONE HCL 200 MG TABLET. PO SCH (13:49)
[2020-02-04 15:00] VITALS: BP 164/65
[2020-02-04] MEDS ORDERED: IV NORMAL SALINE 1000ML BAG 1,000 ML IV PRN ×2 (15:22)
[2020-02-04] MEDS ORDERED: ALBUMIN HUMAN 25% 200 ML IV PRN (15:30)
[2020-02-04] MEDS ORDERED: DIALYSIS PATIENT. MC PRN ×2 (15:30)
[2020-02-04] MEDS ORDERED: VANCOMYCIN 500 MG in IV NORMAL SALINE 100ML 100 ML IV SCH (16:00)
[2020-02-04] MEDS: WARFARIN 3 MG TABLET. PO SCH (17:52)
[2020-02-04 20:00] VITALS: BP 147/62
[2020-02-04] MEDS: LACTOBACILLUS RHAMNOSUS GG 1 CAPSULE. PO SCH (20:53)
[2020-02-04] MEDS: MEROPENEM 500 MG in IV NORMAL SALINE 50ML 50 ML IV SCH (20:53)
[2020-02-04] MEDS: ATORVASTATIN CALCIUM 20 MG TABLET PO SCH (20:54)
[2020-02-04] MEDS: INSULIN GLARGINE SYRINGE. SQ SCH (20:55)
[2020-02-04 23:29] VITALS: BP 168/68
[2020-02-05] VITALS (7 sets, daily range): BP systolic 106–135; BP diastolic 43–66
[2020-02-05 03:55] LABS: BASO # 0.1 x10^3/uL (0.0-0.2); BASO % 1 % (0-3); EOS # 0.1 x10^3/uL (0.0-0.7); EOS % 2 % (0-3); HEMOGLOBIN 11.5 g/dL (12.0-15.5); LYMPH # 1.3 x10^3/uL (1.0-4.8); LYMPH % 20 % (24-48); MEAN CORPUSCULAR HEMOGLOBIN 35 pg (25-35); MEAN CORPUSCULAR HGB CONC 34 g/dL (31-37); MEAN CORPUSCULAR VOLUME 103 fL (79-100); MONO # 0.5 x10^3/uL (0.0-1.1); MONO % 8 % (0-9); NEUT # 4.5 x10^3/uL (1.8-7.7); NEUT % 69 % (31-73); PLATELET COUNT 143 x10^3/uL (140-400); RED BLOOD COUNT 3.29 x10^6/uL (3.50-5.40); RED CELL DISTRIBUTION WIDTH 19.3 % (11.5-14.5); WHITE BLOOD COUNT 6.5 x10^3/uL (4.0-11.0)
[2020-02-05 04:03] LABS: PROTHROMBIN TIME PATIENT 15.3 SEC (11.7-14.0)
[2020-02-05 05:03] LABS: CREATININE 5.2 mg/dL (0.6-1.0); POTASSIUM 3.9 mmol/L (3.5-5.1)
[2020-02-05] MEDS: INSULIN LISPRO 300 UNITS/3 ML VIAL. SQ SCH ×7 (07:30→20:58)
--- NOTE | 2020-02-05 07:52 | PDOC ---
PROGRESS NOTES Chief Complaint Chief Complaint A/P: Acute encephalopathy - in patient with h/o MDRO UTI and recent bone culture positive and elevated blood pressure looks to be toxic and metabolic encephalopathy HTN urgency - will restart meds. PRN hydralazine ESRD oN HD - consult nephrology Paroxysmal Afib - on warfarin and amiodarone Acute encephalopathy - likely UTI Left foot diabetic infection, osteomyelitis based on op-report with purulent drainage and previous wound infection, chronic callus on plantar foot, Surface swab cultures polymicrobial organism Cultures positive for Bacteroides, Proteus, E. coli, enterococcus 12/24 Status post incision and drainage December 29, 2019 - bone cult 12/28 with Enterococcus Avium Diabetes mellitus - sliding scale + lantus PVD s/p angioplasty 12/26 on Left polpliteal - post tib with chronic total occlusion UTI - with pyuria, leukocyte esterase and hematuria, empiric antibiotics. consult ID Thrombocytopenia - will monitor. Previously noted in July 2019, resolved since Anemia - of chronic renal disease, macrocytosis noted, B12 in 500s Hypothyroidism - with elevated TSH 13, will check thyroid US FEN - Renal ADA diet PPX - warfarin FULL CODE Dispo - inpatient for above History of Present Illness History of Present Illness Ms Beach is a 79yo F w/ PMHx ESRD on HD, coronary artery disease and paroxysmal atrial fibrillation presented with confusion. She was recently seen a month ago for LLE infection with osteomyelitis and has significant pyuria now. Confused for the past few days, so weak now is unable to ambulate. Daughter is present in the ED and states patient does not even recognize her. CT head negative for acute abnormality. Labs consistent with ESRD, BUN 58. BP 208/117. Admitted for further treatment. TSH 13. BUN 28, Cr 5.2. Improved BP from admission. She is more alert today. She tells me she would prefer I call her daughter Daniella instead of Rosalino. Discussed abnormal thyroid function. Vitals Vitals Vital Signs Date Time Temp Pulse Resp B/P (MAP) Pulse Ox O2 Delivery O2 Flow Rate FiO2 02/05/20 03:59 98.4 79 28 115/66 (82) 96 Room Air 98.4 Physical Exam Physical Exam GENERAL: Sleepy but arousable, confused on nasal O2, nontoxic appearing HEENT: Normocephalic, atraumatic, anicteric. No thrush. NECK: Supple. LUNGS: Clear. No accessory muscle use, nonlabored HEART: S1, S2. ABDOMEN: Soft, nontender. Bowel sounds present. EXTREMITIES: LLE without edema or erythema. Wound vac in place, intact ,did not take it down DERMATOLOGIC: Warm, dry. No generalized rash except for above. NEUROLOGIC: Alert and oriented x 3, grossly nonfocal. General: Alert, Cooperative, mild distress Heart: Regular rate Lungs: Clear Abdomen: Normal bowel sounds, Soft, No tenderness, No hepatosplenomegaly, No masses Extremities: Other (LLE without edema or erythema. Wound vac in place, intact ,did not remove) Skin: No breakdown Labs LABS Laboratory Tests Test 02/04/20 13:53 02/04/20 17:56 02/04/20 20:30 02/05/20 03:40 Glucose (Fingerstick) 129 mg/dL (70-99) 75 mg/dL (70-99) 82 mg/dL (70-99) White Blood Count 6.5 x10^3/uL (4.0-11.0) Red Blood Count 3.29 x10^6/uL (3.50-5.40) Hemoglobin 11.5 g/dL (12.0-15.5) Hematocrit 34.0 % (36.0-47.0) Mean Corpuscular Volume 103 fL (79-100) Mean Corpuscular Hemoglobin 35 pg (25-35) Mean Corpuscular Hemoglobin Concent 34 g/dL (31-37) Red Cell Distribution Width 19.3 % (11.5-14.5) Platelet Count 143 x10^3/uL (140-400) Neutrophils (%) (Auto) 69 % (31-73) Lymphocytes (%) (Auto) 20 % (24-48) Monocytes (%) (Auto) 8 % (0-9) Eosinophils (%) (Auto) 2 % (0-3) Basophils (%) (Auto) 1 % (0-3) Neutrophils # (Auto) 4.5 x10^3/uL (1.8-7.7) Lymphocytes # (Auto) 1.3 x10^3/uL (1.0-4.8) Monocytes # (Auto) 0.5 x10^3/uL (0.0-1.1) Eosinophils # (Auto) 0.1 x10^3/uL (0.0-0.7) Basophils # (Auto) 0.1 x10^3/uL (0.0-0.2) Prothrombin Time 15.3 SEC (11.7-14.0) Prothromb Time International Ratio 1.3 (0.8-1.1) Sodium Level 139 mmol/L (136-145) Potassium Level 3.9 mmol/L (3.5-5.1) Chloride Level 98 mmol/L (98-107) Carbon Dioxide Level 28 mmol/L (21-32) Anion Gap 13 (6-14) Blood Urea Nitrogen 28 mg/dL (7-20) Creatinine 5.2 mg/dL (0.6-1.0) Estimated GFR (Cockcroft-Gault) 8.0 Glucose Level 81 mg/dL (70-99) Calcium Level 9.0 mg/dL (8.5-10.1) Test 02/05/20 07:36 Glucose (Fingerstick) 83 mg/dL (70-99) Assessment and Plan Assessmemt and Plan Problems Medical Problems: (1) AMS (altered mental status) Status: Acute (2) Uncontrolled hypertension Status: Acute (3) UTI (urinary tract infection) Status: Acute Comment Review of Relevant I have reviewed the following items anastasiya (where applicable) has been applied. Labs Laboratory Tests Test 02/04/20 06:10 02/04/20 06:36 02/04/20 07:30 02/04/20 13:53 White Blood Count 6.1 x10^3/uL (4.0-11.0) Red Blood Count 3.06 x10^6/uL (3.50-5.40) Hemoglobin 10.5 g/dL (12.0-15.5) Hematocrit 31.9 % (36.0-47.0) Mean Corpuscular Volume 104 fL (79-100) Mean Corpuscular Hemoglobin 34 pg (25-35) Mean Corpuscular Hemoglobin Concent 33 g/dL (31-37) Red Cell Distribution Width 19.4 % (11.5-14.5) Platelet Count 134 x10^3/uL (140-400) Neutrophils (%) (Auto) 66 % (31-73) Lymphocytes (%) (Auto) 22 % (24-48) Monocytes (%) (Auto) 9 % (0-9) Eosinophils (%) (Auto) 3 % (0-3) Basophils (%) (Auto) 1 % (0-3) Neutrophils # (Auto) 4.0 x10^3/uL (1.8-7.7) Lymphocytes # (Auto) 1.3 x10^3/uL (1.0-4.8) Monocytes # (Auto) 0.5 x10^3/uL (0.0-1.1) Eosinophils # (Auto) 0.2 x10^3/uL (0.0-0.7) Basophils # (Auto) 0.1 x10^3/uL (0.0-0.2) Sodium Level 141 mmol/L (136-145) Potassium Level 4.1 mmol/L (3.5-5.1) Chloride Level 99 mmol/L (98-107) Carbon Dioxide Level 26 mmol/L (21-32) Anion Gap 16 (6-14) Blood Urea Nitrogen 58 mg/dL (7-20) Creatinine 7.8 mg/dL (0.6-1.0) Estimated GFR (Cockcroft-Gault) 5.0 BUN/Creatinine Ratio 7 (6-20) Glucose Level 148 mg/dL (70-99) Lactic Acid Level 1.0 mmol/L (0.4-2.0) Calcium Level 8.8 mg/dL (8.5-10.1) Total Bilirubin 0.6 mg/dL (0.2-1.0) Aspartate Amino Transf (AST/SGOT) 22 U/L (15-37) Alanine Aminotransferase (ALT/SGPT) 28 U/L (14-59) Alkaline Phosphatase 132 U/L (46-116) Total Protein 7.7 g/dL (6.4-8.2) Albumin 2.9 g/dL (3.4-5.0) Albumin/Globulin Ratio 0.6 (1.0-1.7) Urine Collection Type U cath Urine Color Straw Urine Clarity Turbid Urine pH 8.5 (<5.0-8.0) Urine Specific [place] 1.025 (1.000-1.030) Urine Protein >=300 mg/dL (NEG-TRACE) Urine Glucose (UA) Negative mg/dL (NEG) Urine Ketones (Stick) Negative mg/dL (NEG) Urine Blood Large (NEG) Urine Nitrite Negative (NEG) Urine Bilirubin Negative (NEG) Urine Urobilinogen Dipstick 0.2 mg/dL (0.2 mg/dL) Urine Leukocyte Esterase Large (NEG) Urine RBC Field obscured /HPF (0-2) Urine WBC Tntc /HPF (0-4) Urine Squamous Epithelial Cells Few /LPF Urine Bacteria Few /HPF (0-FEW) Prothrombin Time 16.1 SEC (11.7-14.0) Prothromb Time International Ratio 1.3 (0.8-1.1) Activated Partial Thromboplast Time 29 SEC (24-38) Magnesium Level 2.3 mg/dL (1.8-2.4) Creatine Kinase 22 U/L (26-192) Troponin I Quantitative < 0.017 ng/mL (0.000-0.055) Lipase 109 U/L (73-393) Vitamin B12 Level 558 pg/mL (247-911) Thyroid Stimulating Hormone (TSH) 13.282 uIU/mL (0.358-3.74) Glucose (Fingerstick) 129 mg/dL (70-99) Test 02/04/20 17:56 02/04/20 20:30 02/05/20 03:40 02/05/20 07:36 Glucose (Fingerstick) 75 mg/dL (70-99) 82 mg/dL (70-99) 83 mg/dL (70-99) White Blood Count 6.5 x10^3/uL (4.0-11.0) Red Blood Count 3.29 x10^6/uL (3.50-5.40) Hemoglobin 11.5 g/dL (12.0-15.5) Hematocrit 34.0 % (36.0-47.0) Mean Corpuscular Volume 103 fL (79-100) Mean Corpuscular Hemoglobin 35 pg (25-35) Mean Corpuscular Hemoglobin Concent 34 g/dL (31-37) Red Cell Distribution Width 19.3 % (11.5-14.5) Platelet Count 143 x10^3/uL (140-400) Neutrophils (%) (Auto) 69 % (31-73) Lymphocytes (%) (Auto) 20 % (24-48) Monocytes (%) (Auto) 8 % (0-9) Eosinophils (%) (Auto) 2 % (0-3) Basophils (%) (Auto) 1 % (0-3) Neutrophils # (Auto) 4.5 x10^3/uL (1.8-7.7) Lymphocytes # (Auto) 1.3 x10^3/uL (1.0-4.8) Monocytes # (Auto) 0.5 x10^3/uL (0.0-1.1) Eosinophils # (Auto) 0.1 x10^3/uL (0.0-0.7) Basophils # (Auto) 0.1 x10^3/uL (0.0-0.2) Prothrombin Time 15.3 SEC (11.7-14.0) Prothromb Time International Ratio 1.3 (0.8-1.1) Sodium Level 139 mmol/L (136-145) Potassium Level 3.9 mmol/L (3.5-5.1) Chloride Level 98 mmol/L (98-107) Carbon Dioxide Level 28 mmol/L (21-32) Anion Gap 13 (6-14) Blood Urea Nitrogen 28 mg/dL (7-20) Creatinine 5.2 mg/dL (0.6-1.0) Estimated GFR (Cockcroft-Gault) 8.0 Glucose Level 81 mg/dL (70-99) Calcium Level 9.0 mg/dL (8.5-10.1) Laboratory Tests Test 02/04/20 13:53 02/04/20 17:56 02/04/20 20:30 02/05/20 03:40 Glucose (Fingerstick) 129 mg/dL (70-99) 75 mg/dL (70-99) 82 mg/dL (70-99) White Blood Count 6.5 x10^3/uL (4.0-11.0) Red Blood Count 3.29 x10^6/uL (3.50-5.40) Hemoglobin 11.5 g/dL (12.0-15.5) Hematocrit 34.0 % (36.0-47.0) Mean Corpuscular Volume 103 fL (79-100) Mean Corpuscular Hemoglobin 35 pg (25-35) Mean Corpuscular Hemoglobin Concent 34 g/dL (31-37) Red Cell Distribution Width 19.3 % (11.5-14.5) Platelet Count 143 x10^3/uL (140-400) Neutrophils (%) (Auto) 69 % (31-73) Lymphocytes (%) (Auto) 20 % (24-48) Monocytes (%) (Auto) 8 % (0-9) Eosinophils (%) (Auto) 2 % (0-3) Basophils (%) (Auto) 1 % (0-3) Neutrophils # (Auto) 4.5 x10^3/uL (1.8-7.7) Lymphocytes # (Auto) 1.3 x10^3/uL (1.0-4.8) Monocytes # (Auto) 0.5 x10^3/uL (0.0-1.1) Eosinophils # (Auto) 0.1 x10^3/uL (0.0-0.7) Basophils # (Auto) 0.1 x10^3/uL (0.0-0.2) Prothrombin Time 15.3 SEC (11.7-14.0) Prothromb Time International Ratio 1.3 (0.8-1.1) Sodium Level 139 mmol/L (136-145) Potassium Level 3.9 mmol/L (3.5-5.1) Chloride Level 98 mmol/L (98-107) Carbon Dioxide Level 28 mmol/L (21-32) Anion Gap 13 (6-14) Blood Urea Nitrogen 28 mg/dL (7-20) Creatinine 5.2 mg/dL (0.6-1.0) Estimated GFR (Cockcroft-Gault) 8.0 Glucose Level 81 mg/dL (70-99) Calcium Level 9.0 mg/dL (8.5-10.1) Test 02/05/20 07:36 Glucose (Fingerstick) 83 mg/dL (70-99) Microbiology 02/04/20 Blood Culture - Preliminary, Resulted NO GROWTH AFTER 1 DAY Medications Current Medications Ceftriaxone Sodium (Rocephin) 1 gm 1X ONCE IVP Last administered on 02/04/20at 08:17; Start 02/04/20 at 07:15; Stop 02/04/20 at 07:20; Status DC Amiodarone HCl (Cordarone) 200 mg DAILY PO Last administered on 02/04/20at 13:49; Start 02/04/20 at 12:00 Aspirin (Ecotrin) 81 mg DAILY08 PO Last administered on 02/04/20 13:46; Start 02/04/20 at 12:00 Acetaminophen/ Hydrocodone Bitart (Lortab 7.5/325) 1 tab PRN Q4HRS PRN PO PAIN; Start 02/04/20 at 11:45 Lactobacillus Rhamnosus (Culturelle) 1 cap BID PO Last administered on 02/04/20 20:53; Start 02/04/20 at 21:00 Metoprolol Tartrate (Lopressor) 50 mg BID PO Last administered on 02/04/20 20:54; Start 02/04/20 at 12:00 Polyethylene Glycol (miraLAX PACKET) 17 gm PRN DAILY PRN PO CONSTIPATION; Start 02/04/20 at 11:45 Atorvastatin Calcium (Lipitor) 20 mg QHS PO Last administered on 02/04/20 20:54; Start 02/04/20 at 21:00 Warfarin Sodium (Coumadin) 3 mg DAILY16 PO Last administered on 02/04/20 17:52; Start 02/04/20 at 16:00 Calcium Acetate (Phoslo) 1,334 mg TIDWMEALS PO Last administered on 02/04/20 13:46; Start 02/04/20 at 12:00 Insulin Human Lispro (HumaLOG) 6 units TIDWMEALS SQ Last administered on 02/04/20 14:13; Start 02/04/20 at 12:00 Insulin Glargine (Lantus Syringe) 10 unit QHS SQ Last administered on 02/04/20 20:55; Start 02/04/20 at 21:00 Vitamin B Complex/ Vitamin C (Funmi-Hannah) 1 tab DAILY PO Last administered on 02/04/20 13:46; Start 02/04/20 at 12:00 Non-Formulary Medication (Vancomycin HCl ) 500 mg MWF IV ; Start 02/04/20 at 11:45; Status UNV Non-Formulary Medication ([CEFEPIME HCL IV Push] ) 3 gm Q24H IVP ; Start 02/04/20 at 11:45; Stop 02/04/20 at 12:37; Status DC Insulin Human Lispro (HumaLOG) 0-9 UNITS TIDACHC SQ ; Start 02/04/20 at 12:00 Dextrose (Dextrose 50%-Water Syringe) 12.5 gm PRN Q15MIN PRN IV SEE COMMENTS; Start 02/04/20 at 11:45 Meropenem 500 mg/ Sodium Chloride 50 ml @ 100 mls/hr DAILY IV Last admin istered on 02/04/20at 20:53; Start 02/04/20 at 13:00 Vancomycin HCl 500 mg/Sodium Chloride 100 ml @ 100 mls/hr QMWF IV Last admin istered on 02/04/20at 20:57; Start 02/04/20 at 16:00 Vancomycin HCl (Vancomycin Random Level) 1 each 1X ONCE MC ; Start 02/06/20 at 05:00; Stop 02/06/20 at 05:01 Sodium Chloride 1,000 ml @ 1,000 mls/hr Q1H PRN IV hypotension; Start 02/04/20 at 15:22; Stop 02/04/20 at 21:21; Status DC Albumin Human 200 ml @ 200 mls/hr 1X PRN PRN IV Hypotension; Start 02/04/20 at 15:30; Stop 02/04/20 at 21:29; Status DC Sodium Chloride 1,000 ml @ 400 mls/hr Q2H30M PRN IV PATENCY; Start 02/04/20 at 15:22; Stop 02/05/20 at 03:21; Status DC Info (PHARMACY MONITORING -- do not chart) 1 each PRN DAILY PRN MC SEE COMMENTS; Start 02/04/20 at 15:30 Info (PHARMACY MONITORING -- do not chart) 1 each PRN DAILY PRN MC SEE COMMENTS; Start 02/04/20 at 15:30 Active Scripts Active Culturelle (Lactobacillus Rhamnosus Gg) 1 Each Cap.sprink 1 Cap PO BID 30 Days Polyethylene Glycol 3350 17 Gm Powd.pack 17 Gm PO PRN DAILY PRN 30 Days Vancomycin HCl 250 Mg Vial 500 Mg IV MWF 14 Days [Cefepime Hcl] 1 GM Vial 3 Gm IVP Q24H 14 Days Amiodarone Hcl 200 Mg Tablet 200 Mg PO DAILY 30 Days Coumadin (Warfarin Sodium) 3 Mg Tablet 3 Mg PO 1X WARF 30 Days Hydrocodone-Apap 7.5-325 (Hydrocodone Bit/Acetaminophen) 1 Tab Tablet 1 Tab PO PRN Q4HRS PRN 6 Days Lantus Solostar (Insulin Glargine,Hum.rec.anlog) 100 Unit/1 Ml Insuln.pen 10 Unit SQ QHS Reported Simvastatin 40 Mg Tablet 1 Tab PO QHS Metoprolol Tartrate 50 Mg Tablet 1 Tab PO BID Funmi-Hannah Rx Tablet (Vit B Cmplx 3/Fa/Vit C/Biotin) 1 Each Tablet 1 Each PO DAILY Novolog (Insulin Aspart) 100 Unit/1 Ml Cartridge 6 Unit SQ TIDAC Calcium Acetate 667 Mg Tablet 2 Cap PO TIDAC Aspir 81 (Aspirin) 81 Mg Tablet. 1 Tab PO DAILY08 Vitals/I & O Vital Sign - Last 24 Hours 02/04/20 02/04/20 02/04/20 02/04/20 08:20 08:47 09:17 09:47 Pulse 72 68 70 72 Resp 20 16 21 22 B/P (MAP) 166/70 (102) 150/55 (86) 141/56 (84) 145/58 (87) Pulse Ox 95 94 99 97 O2 Delivery Room Air Room Air Room Air Room Air 02/04/20 02/04/20 02/04/20 02/04/20 10:17 10:53 10:55 13:49 Temp 98.4 98.4 Pulse 72 75 75 Resp 18 13 B/P (MAP) 134/57 (82) 165/66 (99) 165/66 Pulse Ox 97 93 O2 Delivery Room Air Room Air Room Air 02/04/20 02/04/20 02/04/20 02/04/20 15:00 20:00 20:00 20:54 Temp 97.9 97.8 97.9 97.8 Pulse 72 69 69 Resp 16 18 B/P (MAP) 164/65 (98) 147/62 (90) 147/62 Pulse Ox 95 99 O2 Delivery Room Air Room Air Room Air 02/04/20 02/05/20 02/05/20 23:29 01:29 03:59 Temp 98.2 98.4 98.2 98.4 Pulse 77 79 Resp 26 28 B/P (MAP) 168/68 (101) 134/58 (83) 115/66 (82) Pulse Ox 98 96 O2 Delivery Room Air Room Air Intake and Output 02/04/20 02/04/20 02/05/20 15:00 23:00 07:00 Intake Total 150 ml 410 ml Output Total 0 ml 0 ml 0 ml Balance 0 ml 150 ml 410 ml RIFFEL,CHRISTOPHER S MD Feb 05, 2020 07:52
[2020-02-05] MEDS: CALCIUM ACETATE 667 MG CAPSULE PO SCH ×3 (08:05→17:35)
[2020-02-05] MEDS: METOPROLOL TART IMMED RELEASE 50 MG TABLET. PO SCH ×2 (08:06→20:58)
[2020-02-05] MEDS: FOLIC/VIT B COMP W-C (RENAL) TABLET. PO SCH (08:06)
[2020-02-05] MEDS: LACTOBACILLUS RHAMNOSUS GG 1 CAPSULE. PO SCH ×2 (08:07→20:58)
[2020-02-05] MEDS: LEVOTHYROXINE 75 MCG TABLET PO SCH (08:07)
[2020-02-05] MEDS: ASPIRIN ENTERIC COATED 81 MG TABLET.DR. PO SCH (08:07)
[2020-02-05] MEDS: MEROPENEM 500 MG in IV NORMAL SALINE 50ML 50 ML IV SCH (08:09)
[2020-02-05] MEDS: AMIODARONE HCL 200 MG TABLET. PO SCH (08:11)
--- NOTE | 2020-02-05 08:11 | PDOC ---
Infectious Disease Note Subjective: Subjective Patient feels better More alert this morning Still somewhat confused Denies fever, nausea, vomiting, shortness of breath, diarrhea, abdominal pain, rash Otherwise as above Vital Signs: Vital Signs Vital Signs Date Time Temp Pulse Resp B/P (MAP) Pulse Ox O2 Delivery O2 Flow Rate FiO2 02/05/20 03:59 98.4 79 28 115/66 (82) 96 Room Air 98.4 Physical Exam: PHYSICAL EXAM GENERAL: Sleepy but arousable, confused on nasal O2, nontoxic appearing HEENT: Normocephalic, atraumatic, anicteric. No thrush. NECK: Supple. LUNGS: Clear. No accessory muscle use, nonlabored HEART: S1, S2. ABDOMEN: Soft, nontender. Bowel sounds present. EXTREMITIES: LLE without edema or erythema. Wound vac in place, intact ,did not take it down DERMATOLOGIC: Warm, dry. No generalized rash except for above. NEUROLOGIC: Alert and oriented x 3, grossly nonfocal. Medications: Inpatient Meds: Current Medications Medications (Trade) Dose Ordered Sig/Claudette Start Time Stop Time Status Last Admin Dose Admin Acetaminophen/ Hydrocodone Bitart (Lortab 7.5/325) 1 tab PRN Q4HRS PRN 02/04/20 11:45 Albumin Human 200 ml @ 200 mls/hr 1X PRN PRN 02/04/20 15:30 02/04/20 21:29 DC Amiodarone HCl (Cordarone) 200 mg DAILY 02/04/20 12:00 02/04/20 13:49 200 MG Aspirin (Ecotrin) 81 mg DAILY08 02/04/20 12:00 02/04/20 13:46 81 MG Atorvastatin Calcium (Lipitor) 20 mg QHS 02/04/20 21:00 02/04/20 20:54 20 MG Calcium Acetate (Phoslo) 1,334 mg TIDWMEALS 02/04/20 12:00 02/04/20 13:46 1,334 MG Ceftriaxone Sodium (Rocephin) 1 gm 1X ONCE 02/04/20 07:15 02/04/20 07:20 DC 02/04/20 08:17 1 GM Dextrose (Dextrose 50%-Water Syringe) 12.5 gm PRN Q15MIN PRN 02/04/20 11:45 Info (PHARMACY MONITORING -- do not chart) 1 each PRN DAILY PRN 02/04/20 15:30 Insulin Glargine (Lantus Syringe) 10 unit QHS 02/04/20 21:00 02/04/20 20:55 10 UNIT Insulin Human Lispro (HumaLOG) 0-9 UNITS TIDACHC 02/04/20 12:00 Lactobacillus Rhamnosus (Culturelle) 1 cap BID 02/04/20 21:00 02/04/20 20:53 1 CAP Levothyroxine Sodium (Synthroid) 75 mcg DAILY06 02/05/20 08:00 Meropenem 500 mg/ Sodium Chloride 50 ml @ 100 mls/hr DAILY 02/04/20 13:00 02/04/20 20:53 100 MLS/HR Metoprolol Tartrate (Lopressor) 50 mg BID 02/04/20 12:00 02/04/20 20:54 50 MG Non-Formulary Medication (Vancomycin HCl ) 500 mg MWF 02/04/20 11:45 UNV Non-Formulary Medication ([CEFEPIME HCL IV Push] ) 3 gm Q24H 02/04/20 11:45 02/04/20 12:37 DC Polyethylene Glycol (miraLAX PACKET) 17 gm PRN DAILY PRN 02/04/20 11:45 Sodium Chloride 1,000 ml @ 400 mls/hr Q2H30M PRN 02/04/20 15:22 02/05/20 03:21 DC Vancomycin HCl (Vancomycin Random Level) 1 each 1X ONCE 02/06/20 05:00 02/06/20 05:01 Vancomycin HCl 500 mg/Sodium Chloride 100 ml @ 100 mls/hr QMWF 02/04/20 16:00 02/04/20 20:57 100 MLS/HR Vitamin B Complex/ Vitamin C (Funmi-Hannah) 1 tab DAILY 02/04/20 12:00 02/04/20 13:46 1 TAB Warfarin Sodium (Coumadin) 3 mg DAILY16 02/04/20 16:00 02/04/20 17:52 3 MG Labs: Lab Laboratory Tests Test 02/04/20 10:15 02/04/20 13:53 02/04/20 17:56 02/04/20 20:30 Coronavirus (COVID-19)(PCR) Not detected (NOT DETECT.) Glucose (Fingerstick) 129 mg/dL (70-99) 75 mg/dL (70-99) 82 mg/dL (70-99) Test 02/05/20 03:40 02/05/20 07:36 White Blood Count 6.5 x10^3/uL (4.0-11.0) Red Blood Count 3.29 x10^6/uL (3.50-5.40) Hemoglobin 11.5 g/dL (12.0-15.5) Hematocrit 34.0 % (36.0-47.0) Mean Corpuscular Volume 103 fL (79-100) Mean Corpuscular Hemoglobin 35 pg (25-35) Mean Corpuscular Hemoglobin Concent 34 g/dL (31-37) Red Cell Distribution Width 19.3 % (11.5-14.5) Platelet Count 143 x10^3/uL (140-400) Neutrophils (%) (Auto) 69 % (31-73) Lymphocytes (%) (Auto) 20 % (24-48) Monocytes (%) (Auto) 8 % (0-9) Eosinophils (%) (Auto) 2 % (0-3) Basophils (%) (Auto) 1 % (0-3) Neutrophils # (Auto) 4.5 x10^3/uL (1.8-7.7) Lymphocytes # (Auto) 1.3 x10^3/uL (1.0-4.8) Monocytes # (Auto) 0.5 x10^3/uL (0.0-1.1) Eosinophils # (Auto) 0.1 x10^3/uL (0.0-0.7) Basophils # (Auto) 0.1 x10^3/uL (0.0-0.2) Prothrombin Time 15.3 SEC (11.7-14.0) Prothromb Time International Ratio 1.3 (0.8-1.1) Sodium Level 139 mmol/L (136-145) Potassium Level 3.9 mmol/L (3.5-5.1) Chloride Level 98 mmol/L (98-107) Carbon Dioxide Level 28 mmol/L (21-32) Anion Gap 13 (6-14) Blood Urea Nitrogen 28 mg/dL (7-20) Creatinine 5.2 mg/dL (0.6-1.0) Estimated GFR (Cockcroft-Gault) 8.0 Glucose Level 81 mg/dL (70-99) Calcium Level 9.0 mg/dL (8.5-10.1) Glucose (Fingerstick) 83 mg/dL (70-99) Objective: Assessment: Encephalopathy UTI Left foot diabetic infection, osteomyelitis based on op-report with purulent drainage and previous wound infection, chronic callus on plantar foot, Surface swab cultures polymicrobial organism Cultures positive for Bacteroides, Proteus, E. coli, enterococcus 12/24 Status post incision and drainage December 29, 2019 - bone cult 12/28 with Enterococcus Avium Chronic kidney disease, on hemodialysis. Diabetes mellitus. History of extended spectrum beta-lactamase urinary tract infection in the past. PVD s/p angioplasty 12/26 on Left polpliteal - post tib with chronic total occlusion Atrial fibrillation Plan: Plan of Care Continue vancomycin, renal dosing Continue Merrem for now Was on cefepime Cultures as directed Follow-up urine culture and blood culture Monitor labs Continue aspiration precaution Maintain droplet isolation precaution until COVID-19 results Continue supportive care Discussed with nursing staff MARIA ESTHER العلي MD Feb 05, 2020 08:11
[2020-02-05] MEDS: VANCOMYCIN PER PHARMACY MC PRN (09:02)
--- NOTE | 2020-02-05 09:17 | NUR ---
SS following for discharge planning. SS reviewed pt chart and discussed with pt RN. Pt is from home and is currently on room air. Pt currently on Vancomycin and Meropenem. Pt current on services with [facility], ; fax [phone], and [facility] wound care. Pt has outpatient dialysis set up at [facility], ; fax [phone], Tuesday, Tuesday, and Tuesday. SS will continue to follow for discharge planning.
--- NOTE | 2020-02-05 10:15 | RAD ---
THYROID ULTRASOUND History: Reason: Hypothyroidism, new, on Amiodarone / Spl. Instructions: / History: Comparison: None. Technique: Multiple grayscale and color Doppler images of the thyroid gland were obtained. Findings: Right thyroid lobe: 4.5 x 1.2 x 1.8 cm. Heterogeneous echotexture. Left thyroid lobe: 3.8 x 1.5 x 1.6 cm. Heterogeneous echotexture. Isthmus: 0.6 cm. No discrete nodule. ACR Thyroid Imaging, Reporting And Data System (TI-RADS): White Paper Of The ACR TI-RADS Committee. Journal of the [employer], volume 14, issue 5, pages 587-595 (December 2016). IMPRESSION: 1. Heterogeneous echotexture, may indicate nonspecific thyroiditis. Electronically signed by: Luiz Villegas DO (02/05/2020 10:12 AM) [id number]
--- NOTE | 2020-02-05 11:21 | PDOC ---
Renal-Progress Notes Subjective Notes Notes NO LONGER CONFUSED History of Present Illness Hx of present illness STABLE Vitals Vitals Vital Signs Date Time Temp Pulse Resp B/P (MAP) Pulse Ox O2 Delivery O2 Flow Rate FiO2 02/05/20 11:00 98.4 71 20 106/45 (65) 98 Room Air 98.4 Weight Weight [ ] I.O. Intake and Output Intake and Output 02/05/20 07:00 Intake Total 560 ml Output Total 0 ml Balance 560 ml Intake Oral 400 ml IV Total 160 ml Output Urine Total 0 ml Labs Labs Laboratory Tests Test 02/04/20 13:53 02/04/20 17:56 02/04/20 20:30 02/05/20 03:40 Glucose (Fingerstick) 129 mg/dL (70-99) 75 mg/dL (70-99) 82 mg/dL (70-99) White Blood Count 6.5 x10^3/uL (4.0-11.0) Red Blood Count 3.29 x10^6/uL (3.50-5.40) Hemoglobin 11.5 g/dL (12.0-15.5) Hematocrit 34.0 % (36.0-47.0) Mean Corpuscular Volume 103 fL (79-100) Mean Corpuscular Hemoglobin 35 pg (25-35) Mean Corpuscular Hemoglobin Concent 34 g/dL (31-37) Red Cell Distribution Width 19.3 % (11.5-14.5) Platelet Count 143 x10^3/uL (140-400) Neutrophils (%) (Auto) 69 % (31-73) Lymphocytes (%) (Auto) 20 % (24-48) Monocytes (%) (Auto) 8 % (0-9) Eosinophils (%) (Auto) 2 % (0-3) Basophils (%) (Auto) 1 % (0-3) Neutrophils # (Auto) 4.5 x10^3/uL (1.8-7.7) Lymphocytes # (Auto) 1.3 x10^3/uL (1.0-4.8) Monocytes # (Auto) 0.5 x10^3/uL (0.0-1.1) Eosinophils # (Auto) 0.1 x10^3/uL (0.0-0.7) Basophils # (Auto) 0.1 x10^3/uL (0.0-0.2) Prothrombin Time 15.3 SEC (11.7-14.0) Prothromb Time International Ratio 1.3 (0.8-1.1) Sodium Level 139 mmol/L (136-145) Potassium Level 3.9 mmol/L (3.5-5.1) Chloride Level 98 mmol/L (98-107) Carbon Dioxide Level 28 mmol/L (21-32) Anion Gap 13 (6-14) Blood Urea Nitrogen 28 mg/dL (7-20) Creatinine 5.2 mg/dL (0.6-1.0) Estimated GFR (Cockcroft-Gault) 8.0 Glucose Level 81 mg/dL (70-99) Calcium Level 9.0 mg/dL (8.5-10.1) Test 02/05/20 07:36 Glucose (Fingerstick) 83 mg/dL (70-99) Micro Micro Microbiology 02/04/20 Blood Culture - Preliminary, Resulted NO GROWTH AFTER 1 DAY Review of Systems Constitutional: yes: weakness, alert, oriented Ears/Nose/Throat: Yes: no symptom reported Eyes: Yes: no symptom reported Pulmonary: Yes no symptom reported Gastrointestional: Yes: no symptom reported Genitourinary: Yes: no symptom reported Musculoskeletal: Yes: no symptom reported Skin: Yes no symptom reported Psychiatric/Neurological: Yes: no symptom reported Endocrine: Yes: no symptom reported Physical Exam General Appearance: no apparent distress Skin: warm Respiratory: bilateral CTA Heart: S1S2, RRR Abdomen: soft, bowel sounds present Genitourinary: bladder flat Neurology: alert, oriented Assessment Assessment IMP UTI MET ENCEPHALOPATHY-BETTER POSSIBLE SEPSIS DM II ESRD AFIB ANEMIA OF ESRD PLAN ANTIBIOTICS HD TOMORROW IF STABLE ? D/C TOMORROW WILL FOLLOW MELONIE GUAMAN MD Feb 05, 2020 11:21
--- NOTE | 2020-02-05 14:53 | NUR ---
Wound/Ostomy Care Wound Type/Assessment: left plantar foot diabetic wound Treatment Recommendations/Plan: Pt's home wound vac removed, wound cleansed with wound wash and packed with plain packing, covered with foam.Will most likely apply vac tomorrow after eval by Dr. Jordan Education provided: turning q2h wile in bed Offloading surface/device: half shoe Recommended Referrals/Tests: Dr. Jordan tomorrow Discharge Recommendations for dressings: home wound vac at discharged and f/u with Dr. Jordan in outpatient clinic.
[2020-02-05] MEDS: MICONAZOLE NITRATE 2% TOPICAL CREAM 28GM TUBE. TP SCH ×2 (15:53→20:59)
[2020-02-05] MEDS: WARFARIN 3 MG TABLET. PO SCH (15:55)
[2020-02-05] MEDS: ATORVASTATIN CALCIUM 20 MG TABLET PO SCH (20:58)
[2020-02-05] MEDS: INSULIN GLARGINE SYRINGE. SQ SCH (21:00)
--- NOTE | 2020-02-05 23:31 | NUR ---
Pt O2 sat at 2300 found to be 83% on room air. O2 placed at 2lpm via nc. O2 sat now 100%
[2020-02-06 03:00] VITALS: BP 126/50
[2020-02-06] MEDS ORDERED: VANCOMYCIN RANDOM LEVEL. MC ONE (05:00)
[2020-02-06 05:15] LABS: PROTHROMBIN TIME PATIENT 15.6 SEC (11.7-14.0)
[2020-02-06] MEDS: LEVOTHYROXINE 75 MCG TABLET PO SCH (05:43)
[2020-02-06] MEDS: VANCOMYCIN PER PHARMACY MC PRN ×2 (05:49→11:32)
--- NOTE | 2020-02-06 05:49 | NUR ---
Pharmacy Vancomycin Dosing Note S:Consulted to monitor and dose vancomycin started 02/04/20. O:BRYANT LOCKHART is a 79 year old F with Osteomyelitis . Height: 5 feet, 4 inches Weight: 60.639123 kg [place] Body Weight: 54.70 Adjusted Body Weight: 57.18 Dosing Weight: Actual Other Antibiotics: merrem 500 mg IVPB q24h LABS: Last BUN: 28 Last Creatinine: 5.2 Creatinine Clearance: HD mL/min Last WBC: 6.5 Last Procalcitonin: Tmax (past 24 hours): 98.6 Microbiology: 02/03: Blood cx pending I/O: 560/ -- (1 void) Drug Levels: Last Random level: 18.1 on 02/06/20 at 0445 Last dose given 02/04/20 at 2056 Vancomycin Dosing: Loading Dose: x1 Dosing Weight: Actual Target Trough: 15-20 A: Based on: THERAPEUTIC RANDOM LEVEL, HD SCHEDULE, P: 1. CONTINUE Vancomycin 500 mg IV MWF after HD 2. Follow up Random level NEEDED. 3. Pharmacy will continue to monitor, follow and adjust therapy as needed. ROSANA GONSALVES [facility], 02/06/20 [id number]
[2020-02-06 07:00] VITALS: BP 153/61
[2020-02-06] MEDS: INSULIN LISPRO 300 UNITS/3 ML VIAL. SQ SCH ×4 (07:30→14:20)
--- NOTE | 2020-02-06 07:39 | PDOC ---
PROGRESS NOTES Chief Complaint Chief Complaint A/P: Acute encephalopathy - in patient with h/o MDRO UTI and recent bone culture positive and elevated blood pressure looks to be toxic and metabolic encephalopathy HTN urgency - will restart meds. PRN hydralazine ESRD oN HD - consult nephrology Paroxysmal Afib - on warfarin and amiodarone Acute encephalopathy - likely UTI Left foot diabetic infection, osteomyelitis based on op-report with purulent drainage and previous wound infection, chronic callus on plantar foot, Surface swab cultures polymicrobial organism Cultures positive for Bacteroides, Proteus, E. coli, enterococcus 12/24 Status post incision and drainage December 29, 2019 - bone cult 12/28 with Enterococcus Avium Diabetes mellitus - sliding scale + lantus PVD s/p angioplasty 12/26 on Left polpliteal - post tib with chronic total occlusion UTI - with pyuria, leukocyte esterase and hematuria, empiric antibiotics. consult ID Thrombocytopenia - will monitor. Previously noted in July 2019, resolved since Anemia - of chronic renal disease, macrocytosis noted, B12 in 500s Hypothyroidism - with elevated TSH 13, will check thyroid US FEN - Renal ADA diet PPX - warfarin FULL CODE Dispo - inpatient for above History of Present Illness History of Present Illness Ms Beach is a 79yo F w/ PMHx ESRD on HD, coronary artery disease and paroxysmal atrial fibrillation presented with confusion. She was recently seen a month ago for LLE infection with osteomyelitis and has significant pyuria now. Confused for the past few days, so weak now is unable to ambulate. Daughter is present in the ED and states patient does not even recognize her. CT head negative for acute abnormality. Labs consistent with ESRD, BUN 58. BP 208/117. Admitted for further treatment. 02/04: TSH 13. BUN 28, Cr 5.2. Improved BP from admission. She is more alert today. She tells me she would prefer I call her daughter Daniella instead of Rosalino. Discussed abnormal thyroid function. Back to her normal mental status today. Labs consistent with ESRD. Blood culture negative so far. No SOB or CP. Left foot wound still deep, slowly healing. Antibiotics changed to merrem for now. Awaiting urine culture results. Vitals Vitals Vital Signs Date Time Temp Pulse Resp B/P (MAP) Pulse Ox O2 Delivery O2 Flow Rate FiO2 02/06/20 03:00 98.6 69 16 126/50 (75) 99 Nasal Cannula 2.0 98.6 Physical Exam Physical Exam GENERAL: Sleepy but arousable, confused on nasal O2, nontoxic appearing HEENT: Normocephalic, atraumatic, anicteric. No thrush. NECK: Supple. LUNGS: Clear. No accessory muscle use, nonlabored HEART: S1, S2. ABDOMEN: Soft, nontender. Bowel sounds present. EXTREMITIES: LLE without edema or erythema. Wound vac in place, intact ,did not take it down DERMATOLOGIC: Warm, dry. No generalized rash except for above. NEUROLOGIC: Alert and oriented x 3, grossly nonfocal. General: Alert, Cooperative, mild distress Heart: Regular rate Lungs: Clear Abdomen: Normal bowel sounds, Soft, No tenderness, No hepatosplenomegaly, No ma sses Extremities: Other (LLE without edema or erythema. Wound vac in place, intact ,did not remove) Skin: No breakdown Labs LABS Laboratory Tests Test 02/05/20 12:29 02/05/20 15:56 02/05/20 20:50 02/06/20 04:45 Glucose (Fingerstick) 109 mg/dL (70-99) 90 mg/dL (70-99) 128 mg/dL (70-99) Prothrombin Time 15.6 SEC (11.7-14.0) Prothromb Time International Ratio 1.3 (0.8-1.1) Random Vancomycin Level 18.1 mcg/mL Assessment and Plan Assessmemt and Plan Problems Medical Problems: (1) AMS (altered mental status) Status: Acute (2) Uncontrolled hypertension Status: Acute (3) UTI (urinary tract infection) Status: Acute Comment Review of Relevant I have reviewed the following items anastasiya (where applicable) has been applied. Labs Laboratory Tests Test 02/04/20 10:15 02/04/20 13:53 02/04/20 17:56 02/04/20 20:30 Coronavirus (COVID-19)(PCR) Not detected (NOT DETECT.) Glucose (Fingerstick) 129 mg/dL (70-99) 75 mg/dL (70-99) 82 mg/dL (70-99) Test 02/05/20 03:40 02/05/20 07:36 02/05/20 12:29 02/05/20 15:56 White Blood Count 6.5 x10^3/uL (4.0-11.0) Red Blood Count 3.29 x10^6/uL (3.50-5.40) Hemoglobin 11.5 g/dL (12.0-15.5) Hematocrit 34.0 % (36.0-47.0) Mean Corpuscular Volume 103 fL (79-100) Mean Corpuscular Hemoglobin 35 pg (25-35) Mean Corpuscular Hemoglobin Concent 34 g/dL (31-37) Red Cell Distribution Width 19.3 % (11.5-14.5) Platelet Count 143 x10^3/uL (140-400) Neutrophils (%) (Auto) 69 % (31-73) Lymphocytes (%) (Auto) 20 % (24-48) Monocytes (%) (Auto) 8 % (0-9) Eosinophils (%) (Auto) 2 % (0-3) Basophils (%) (Auto) 1 % (0-3) Neutrophils # (Auto) 4.5 x10^3/uL (1.8-7.7) Lymphocytes # (Auto) 1.3 x10^3/uL (1.0-4.8) Monocytes # (Auto) 0.5 x10^3/uL (0.0-1.1) Eosinophils # (Auto) 0.1 x10^3/uL (0.0-0.7) Basophils # (Auto) 0.1 x10^3/uL (0.0-0.2) Prothrombin Time 15.3 SEC (11.7-14.0) Prothromb Time International Ratio 1.3 (0.8-1.1) Sodium Level 139 mmol/L (136-145) Potassium Level 3.9 mmol/L (3.5-5.1) Chloride Level 98 mmol/L (98-107) Carbon Dioxide Level 28 mmol/L (21-32) Anion Gap 13 (6-14) Blood Urea Nitrogen 28 mg/dL (7-20) Creatinine 5.2 mg/dL (0.6-1.0) Estimated GFR (Cockcroft-Gault) 8.0 Glucose Level 81 mg/dL (70-99) Calcium Level 9.0 mg/dL (8.5-10.1) Glucose (Fingerstick) 83 mg/dL (70-99) 109 mg/dL (70-99) 90 mg/dL (70-99) Test 02/05/20 20:50 02/06/20 04:45 Glucose (Fingerstick) 128 mg/dL (70-99) Prothrombin Time 15.6 SEC (11.7-14.0) Prothromb Time International Ratio 1.3 (0.8-1.1) Random Vancomycin Level 18.1 mcg/mL Laboratory Tests Test 02/05/20 12:29 02/05/20 15:56 02/05/20 20:50 02/06/20 04:45 Glucose (Fingerstick) 109 mg/dL (70-99) 90 mg/dL (70-99) 128 mg/dL (70-99) Prothrombin Time 15.6 SEC (11.7-14.0) Prothromb Time International Ratio 1.3 (0.8-1.1) Random Vancomycin Level 18.1 mcg/mL Microbiology 02/04/20 Blood Culture - Preliminary, Resulted NO GROWTH AFTER 2 DAYS Medications Current Medications Ceftriaxone Sodium (Rocephin) 1 gm 1X ONCE IVP Last administered on 02/04/20 08:17; Start 02/04/20 at 07:15; Stop 02/04/20 at 07:20; Status DC Amiodarone HCl (Cordarone) 200 mg DAILY PO Last administered on 02/05/20at 08:11; Start 02/04/20 at 12:00 Aspirin (Ecotrin) 81 mg DAILY08 PO Last administered on 02/05/20 08:07; Start 02/04/20 at 12:00 Acetaminophen/ Hydrocodone Bitart (Lortab 7.5/325) 1 tab PRN Q4HRS PRN PO PAIN; Start 02/04/20 at 11:45 Lactobacillus Rhamnosus (Culturelle) 1 cap BID PO Last administered on 02/05/20at 20:58; Start 02/04/20 at 21:00 Metoprolol Tartrate (Lopressor) 50 mg BID PO Last administered on 02/05/20 20:58; Start 02/04/20 at 12:00 Polyethylene Glycol (miraLAX PACKET) 17 gm PRN DAILY PRN PO CONSTIPATION; Start 02/04/20 at 11:45 Atorvastatin Calcium (Lipitor) 20 mg QHS PO Last administered on 02/05/20at 20:58; Start 02/04/20 at 21:00 Warfarin Sodium (Coumadin) 3 mg DAILY16 PO Last administered on 02/05/20at 15:55; Start 02/04/20 at 16:00 Calcium Acetate (Phoslo) 1,334 mg TIDWMEALS PO Last administered on 02/05/20at 17:35; Start 02/04/20 at 12:00 Insulin Human Lispro (HumaLOG) 6 units TIDWMEALS SQ Last administered on 02/05/20 at 17:37; Start 02/04/20 at 12:00 Insulin Glargine (Lantus Syringe) 10 unit QHS SQ Last administered on 02/05/20at 21:00; Start 02/04/20 at 21:00 Vitamin B Complex/ Vitamin C (Funmi-Hannah) 1 tab DAILY PO Last administered on 02/05/20at 08:06; Start 02/04/20 at 12:00 Non-Formulary Medication (Vancomycin HCl ) 500 mg MWF IV ; Start 02/04/20 at 11:45; Status UNV Non-Formulary Medication ([CEFEPIME HCL IV Push] ) 3 gm Q24H IVP ; Start 02/04/20 at 11:45; Stop 02/04/20 at 12:37; Status DC Insulin Human Lispro (HumaLOG) 0-9 UNITS TIDACHC SQ ; Start 02/04/20 at 12:00 Dextrose (Dextrose 50%-Water Syringe) 12.5 gm PRN Q15MIN PRN IV SEE COMMENTS; Start 02/04/20 at 11:45 Meropenem 500 mg/ Sodium Chloride 50 ml @ 100 mls/hr DAILY IV Last administered on 02/05/20at 08:09; Start 02/04/20 at 13:00 Vancomycin HCl 500 mg/Sodium Chloride 100 ml @ 100 mls/hr QMWF IV Last administered on 02/04/20at 20:57; Start 02/04/20 at 16:00 Vancomycin HCl (Vancomycin Random Level) 1 each 1X ONCE MC Last administered on 02/06/20at 05:00; Start 02/06/20 at 05:00; Stop 02/06/20 at 05:01; Status DC Sodium Chloride 1,000 ml @ 1,000 mls/hr Q1H PRN IV hypotension; Start 02/04/20 at 15:22; Stop 02/04/20 at 21:21; Status DC Albumin Human 200 ml @ 200 mls/hr 1X PRN PRN IV Hypotension; Start 02/04/20 at 15:30; Stop 02/04/20 at 21:29; Status DC Sodium Chloride 1,000 ml @ 400 mls/hr Q2H30M PRN IV PATENCY; Start 02/04/20 at 15:22; Stop 02/05/20 at 03:21; Status DC Info (PHARMACY MONITORING -- do not chart) 1 each PRN DAILY PRN MC SEE COMMENTS; Start 02/04/20 at 15:30; Status Cancel Info (PHARMACY MONITORING -- do not chart) 1 each PRN DAILY PRN MC SEE COMMENTS; Start 02/04/20 at 15:30 Levothyroxine Sodium (Synthroid) 75 mcg DAILY06 PO Last administered on 02/06/20at 05:43; Start 02/05/20 at 08:00 Vancomycin HCl (Vanco Per Pharmacy) 1 each PRN DAILY PRN MC SEE COMMENTS Last administered on 02/06/20at 05:49; Start 02/05/20 at 09:00 Warfarin Sodium (Coumadin Per Physician) 1 each PRN DAILY PRN MC SEE COMMENTS Last administered on 02/05/20at 12:49; Start 02/05/20 at 09:00 Miconazole Nitrate (Monistat-Derm) 1 amy BID TP Last administered on 02/05/20at 20:59; Start 02/05/20 at 11:00 Active Scripts Active Culturelle (Lactobacillus Rhamnosus Gg) 1 Each Cap.sprink 1 Cap PO BID 30 Days Polyethylene Glycol 3350 17 Gm Powd.pack 17 Gm PO PRN DAILY PRN 30 Days Vancomycin HCl 250 Mg Vial 500 Mg IV MWF 14 Days [Cefepime Hcl] 1 GM Vial 3 Gm IVP Q24H 14 Days Amiodarone Hcl 200 Mg Tablet 200 Mg PO DAILY 30 Days Coumadin (Warfarin Sodium) 3 Mg Tablet 3 Mg PO 1X WARF 30 Days Hydrocodone-Apap 7.5-325 (Hydrocodone Bit/Acetaminophen) 1 Tab Tablet 1 Tab PO PRN Q4HRS PRN 6 Days Lantus Solostar (Insulin Glargine,Hum.rec.anlog) 100 Unit/1 Ml Insuln.pen 10 Unit SQ QHS Reported Simvastatin 40 Mg Tablet 1 Tab PO QHS Metoprolol Tartrate 50 Mg Tablet 1 Tab PO BID Funmi-Hannah Rx Tablet (Vit B Cmplx 3/Fa/Vit C/Biotin) 1 Each Tablet 1 Each PO DAILY Novolog (Insulin Aspart) 100 Unit/1 Ml Cartridge 6 Unit SQ TIDAC Calcium Acetate 667 Mg Tablet 2 Cap PO TIDAC Aspir 81 (Aspirin) 81 Mg Tablet. 1 Tab PO DAILY08 Vitals/I & O Vital Sign - Last 24 Hours 02/05/20 02/05/20 02/05/20 02/05/20 08:00 08:00 08:06 08:11 Temp 98.2 98.2 Pulse 74 82 85 Resp 22 B/P (MAP) 135/57 (83) 135/57 135/57 Pulse Ox 99 O2 Delivery Room Air Room Air 02/05/20 02/05/20 02/05/20 02/05/20 11:00 16:00 19:00 20:00 Temp 98.4 98.4 98.4 98.4 Pulse 71 76 78 Resp 20 20 20 B/P (MAP) 106/45 (65) 113/43 (66) 113/43 (66) Pulse Ox 98 96 98 O2 Delivery Room Air Room Air Room Air Room Air 02/05/20 02/05/20 02/06/20 20:58 23:00 03:00 Temp 98.4 98.6 98.4 98.6 Pulse 76 71 69 Resp 16 16 B/P (MAP) 131/53 128/43 (71) 126/50 (75) Pulse Ox 100 99 O2 Delivery Nasal Cannula Nasal Cannula O2 Flow Rate 2.0 2.0 Intake and Output 02/05/20 02/05/20 02/06/20 15:00 23:00 07:00 Intake Total 150 ml 700 ml 0 ml Balance 150 ml 700 ml 0 ml ITA MOSQUEDA MD Feb 06, 2020 07:39
[2020-02-06] MEDS ORDERED: IV NORMAL SALINE 1000ML BAG 1,000 ML IV PRN ×2 (07:41)
[2020-02-06] MEDS ORDERED: DIALYSIS PATIENT. MC PRN (07:45)
[2020-02-06] MEDS ORDERED: diphenhydrAMINE 50 MG/ML VIAL IV PRN ×2 (07:45)
[2020-02-06] MEDS ORDERED: ALBUMIN HUMAN 25% 200 ML IV PRN (07:45)
[2020-02-06] MEDS ORDERED: ACETAMINOPHEN 500 MG TABLET PO PRN (07:45)
[2020-02-06 08:01] LABS: ALBUMIN 2.4 g/dL (3.4-5.0); CALCIUM 8.7 mg/dL (8.5-10.1); CREATININE 6.8 mg/dL (0.6-1.0); GFR 5.9; PHOSPHORUS 6.4 mg/dL (2.6-4.7); POTASSIUM 4.3 mmol/L (3.5-5.1)
[2020-02-06 08:16] VITALS: BP 153/61
[2020-02-06] MEDS: CALCIUM ACETATE 667 MG CAPSULE PO SCH ×2 (08:16→14:17)
[2020-02-06] MEDS: LACTOBACILLUS RHAMNOSUS GG 1 CAPSULE. PO SCH (08:16)
[2020-02-06] MEDS: AMIODARONE HCL 200 MG TABLET. PO SCH (08:16)
[2020-02-06] MEDS: METOPROLOL TART IMMED RELEASE 50 MG TABLET. PO SCH (08:16)
[2020-02-06] MEDS: ASPIRIN ENTERIC COATED 81 MG TABLET.DR. PO SCH (08:16)
[2020-02-06] MEDS: FOLIC/VIT B COMP W-C (RENAL) TABLET. PO SCH (08:17)
[2020-02-06] MEDS: MICONAZOLE NITRATE 2% TOPICAL CREAM 28GM TUBE. TP SCH (08:17)
--- NOTE | 2020-02-06 08:32 | PDOC ---
Infectious Disease Note Subjective: Subjective Patient feels better More alert this morning Still somewhat confused Denies fever, nausea, vomiting, shortness of breath, diarrhea, abdominal pain, rash Otherwise as above Vital Signs: Vital Signs Vital Signs Date Time Temp Pulse Resp B/P (MAP) Pulse Ox O2 Delivery O2 Flow Rate FiO2 02/06/20 08:16 71 153/61 02/06/20 03:00 98.6 16 99 Nasal Cannula 2.0 98.6 Physical Exam: PHYSICAL EXAM GENERAL: Alert oriented x3 female in no acute distress HEENT: Normocephalic, atraumatic, anicteric. No thrush. NECK: Supple. LUNGS: Clear. No accessory muscle use, nonlabored HEART: S1, S2. ABDOMEN: Soft, nontender. Bowel sounds present. EXTREMITIES: LLE without edema or erythema. Wound dressing taken, left plantar wound deep greater than 1.5 cm Filling up slowly, no purulence or surrounding redness DERMATOLOGIC: Warm, dry. No generalized rash except for above. NEUROLOGIC: Alert and oriented x 3, grossly nonfocal. Medications: Inpatient Meds: Current Medications Medications (Trade) Dose Ordered Sig/Claudette Start Time Stop Time Status Last Admin Dose Admin Acetaminophen (Tylenol) 500 mg 1X PRN PRN 02/06/20 07:45 02/07/20 07:44 Acetaminophen/ Hydrocodone Bitart (Lortab 7.5/325) 1 tab PRN Q4HRS PRN 02/04/20 11:45 Albumin Human 200 ml @ 200 mls/hr 1X PRN PRN 02/06/20 07:45 02/06/20 13:44 Amiodarone HCl (Cordarone) 200 mg DAILY 02/04/20 12:00 02/06/20 08:16 200 MG Aspirin (Ecotrin) 81 mg DAILY08 02/04/20 12:00 02/06/20 08:16 81 MG Atorvastatin Calcium (Lipitor) 20 mg QHS 02/04/20 21:00 02/05/20 20:58 20 MG Calcium Acetate (Phoslo) 1,334 mg TIDWMEALS 02/04/20 12:00 02/06/20 08:16 1,334 MG Ceftriaxone Sodium (Rocephin) 1 gm 1X ONCE 02/04/20 07:15 02/04/20 07:20 DC 02/04/20 08:17 1 GM Dextrose (Dextrose 50%-Water Syringe) 12.5 gm PRN Q15MIN PRN 02/04/20 11:45 Diphenhydramine HCl (Benadryl) 25 mg 1X PRN PRN 02/06/20 07:45 02/07/20 07:44 Info (PHARMACY MONITORING -- do not chart) 1 each PRN DAILY PRN 02/06/20 07:45 Insulin Glargine (Lantus Syringe) 10 unit QHS 02/04/20 21:00 02/05/20 21:00 10 UNIT Insulin Human Lispro (HumaLOG) 0-9 UNITS TIDACHC 02/04/20 12:00 Lactobacillus Rhamnosus (Culturelle) 1 cap BID 02/04/20 21:00 02/06/20 08:16 1 CAP Levothyroxine Sodium (Synthroid) 75 mcg DAILY06 02/05/20 08:00 02/06/20 05:43 75 MCG Meropenem 500 mg/ Sodium Chloride 50 ml @ 100 mls/hr DAILY 02/04/20 13:00 02/05/20 08:09 100 MLS/HR Metoprolol Tartrate (Lopressor) 50 mg BID 02/04/20 12:00 02/06/20 08:16 50 MG Miconazole Nitrate (Monistat-Derm) 1 amy BID 02/05/20 11:00 02/06/20 08:17 1 AMY Non-Formulary Medication (Vancomycin HCl ) 500 mg MWF 02/04/20 11:45 UNV Non-Formulary Medication ([CEFEPIME HCL IV Push] ) 3 gm Q24H 02/04/20 11:45 02/04/20 12:37 DC Polyethylene Glycol (miraLAX PACKET) 17 gm PRN DAILY PRN 02/04/20 11:45 Sodium Chloride 1,000 ml @ 400 mls/hr Q2H30M PRN 02/06/20 07:41 02/06/20 19:40 Vancomycin HCl (Vanco Per Pharmacy) 1 each PRN DAILY PRN 02/05/20 09:00 02/06/20 05:49 1 EACH Vancomycin HCl (Vancomycin Random Level) 1 each 1X ONCE 02/06/20 05:00 02/06/20 05:01 DC 02/06/20 05:00 1 EACH Vancomycin HCl 500 mg/Sodium Chloride 100 ml @ 100 mls/hr QMWF 02/04/20 16:00 02/04/20 20:57 100 MLS/HR Vitamin B Complex/ Vitamin C (Funmi-Hannah) 1 tab DAILY 02/04/20 12:00 02/06/20 08:17 1 TAB Warfarin Sodium (Coumadin Per Physician) 1 each PRN DAILY PRN 02/05/20 09:00 02/05/20 12:49 1 EACH Warfarin Sodium (Coumadin) 3 mg DAILY16 02/04/20 16:00 02/05/20 15:55 3 MG Labs: Lab Laboratory Tests Test 02/05/20 12:29 02/05/20 15:56 02/05/20 20:50 02/06/20 04:45 Glucose (Fingerstick) 109 mg/dL (70-99) 90 mg/dL (70-99) 128 mg/dL (70-99) Prothrombin Time 15.6 SEC (11.7-14.0) Prothromb Time International Ratio 1.3 (0.8-1.1) Sodium Level 135 mmol/L (136-145) Potassium Level 4.3 mmol/L (3.5-5.1) Chloride Level 97 mmol/L (98-107) Carbon Dioxide Level 29 mmol/L (21-32) Anion Gap 9 (6-14) Blood Urea Nitrogen 51 mg/dL (7-20) Creatinine 6.8 mg/dL (0.6-1.0) Estimated GFR (Cockcroft-Gault) 5.9 Glucose Level 155 mg/dL (70-99) Calcium Level 8.7 mg/dL (8.5-10.1) Phosphorus Level 6.4 mg/dL (2.6-4.7) Albumin 2.4 g/dL (3.4-5.0) Random Vancomycin Level 18.1 mcg/mL Test 02/06/20 08:07 Glucose (Fingerstick) 137 mg/dL (70-99) Objective: Assessment: Encephalopathy improved likely metabolic UTI urine culture negative so far Left foot diabetic infection, osteomyelitis based on op-report with purulent drainage and previous wound infection, chronic callus on plantar foot, Surface swab cultures polymicrobial organism Cultures positive for Bacteroides, Proteus, E. coli, enterococcus 12/24 Status post incision and drainage December 29, 2019 - bone cult 12/28 with Enterococcus Avium Chronic kidney disease, on hemodialysis. Diabetes mellitus. History of extended spectrum beta-lactamase urinary tract infection in the past. PVD s/p angioplasty 12/26 on Left polpliteal - post tib with chronic total occlusion Atrial fibrillation Plan: Plan of Care Continue vancomycin, renal dosing Continue Merrem, was on cefepime Wound care per wound team Still has deep left plantar wound, improving though very slowly Follow-up urine culture until final Monitor labs Continue aspiration precaution Continue supportive care Discussed with nursing staff MARIA ESTHER العلي MD Feb 06, 2020 08:32
--- NOTE | 2020-02-06 11:28 | PDOC ---
Renal-Progress Notes Subjective Notes Notes C/O OF VAGINAL YEAST AFTER STARTING ANTIBIOTICS History of Present Illness Hx of present illness STABLE Vitals Vitals Vital Signs Date Time Temp Pulse Resp B/P (MAP) Pulse Ox O2 Delivery O2 Flow Rate FiO2 02/06/20 08:16 71 153/61 02/06/20 08:00 Room Air 02/06/20 07:00 97.9 20 100 2.0 97.9 Weight Weight [ ] I.O. Intake and Output Intake and Output 02/06/20 07:00 Intake Total 850 ml Balance 850 ml Intake Oral 800 ml IV Total 50 ml # Voids 3 # Bowel Movements 1 Labs Labs Laboratory Tests Test 02/05/20 12:29 02/05/20 15:56 02/05/20 20:50 02/06/20 04:45 Glucose (Fingerstick) 109 mg/dL (70-99) 90 mg/dL (70-99) 128 mg/dL (70-99) Prothrombin Time 15.6 SEC (11.7-14.0) Prothromb Time International Ratio 1.3 (0.8-1.1) Sodium Level 135 mmol/L (136-145) Potassium Level 4.3 mmol/L (3.5-5.1) Chloride Level 97 mmol/L (98-107) Carbon Dioxide Level 29 mmol/L (21-32) Anion Gap 9 (6-14) Blood Urea Nitrogen 51 mg/dL (7-20) Creatinine 6.8 mg/dL (0.6-1.0) Estimated GFR (Cockcroft-Gault) 5.9 Glucose Level 155 mg/dL (70-99) Calcium Level 8.7 mg/dL (8.5-10.1) Phosphorus Level 6.4 mg/dL (2.6-4.7) Albumin 2.4 g/dL (3.4-5.0) Random Vancomycin Level 18.1 mcg/mL Test 02/06/20 08:07 Glucose (Fingerstick) 137 mg/dL (70-99) Micro Micro Microbiology 02/04/20 Blood Culture - Preliminary, Resulted NO GROWTH AFTER 2 DAYS Review of Systems Constitutional: yes: weakness, alert, oriented Ears/Nose/Throat: Yes: no symptom reported Eyes: Yes: no symptom reported Pulmonary: Yes no symptom reported Gastrointestional: Yes: no symptom reported Genitourinary: Yes: no symptom reported Musculoskeletal: Yes: no symptom reported Skin: Yes no symptom reported Psychiatric/Neurological: Yes: no symptom reported Endocrine: Yes: no symptom reported Physical Exam General Appearance: no apparent distress Skin: warm Respiratory: bilateral CTA Heart: S1S2, RRR Abdomen: soft, bowel sounds present Genitourinary: bladder flat Neurology: alert, oriented Assessment Assessment IMP UTI MET ENCEPHALOPATHY-BETTER POSSIBLE SEPSIS DM II ESRD AFIB ANEMIA OF ESRD VAGINAL YEAST INFECTION PLAN ANTIBIOTICS HD TODAY UF TO DW PO DIFLUCAN WILL FOLLOW MELONIE GUAMAN MD Feb 06, 2020 11:28
[2020-02-06] MEDS ORDERED: FLUCONAZOLE 100 MG TABLET. PO ONE (11:30)
--- NOTE | 2020-02-06 13:07 | NUR ---
SS following up with discharge planning. SS reviewed pt chart and discussed with pt RN. Pt is currently on room air and remains on IV Vancomycin and Meropenem. Pt will discharge to home with [facility], ; fax [phone], and continued dialysis with [facility] [place], ; fax [phone], when ready. SS will continue to follow for discharge planning.
--- NOTE | 2020-02-06 13:33 | NUR ---
Wound Care Wound assessed by Dr Jordan as today was her scheduled appt in clinic. Wound vac applied at [address] and white foam, tracked to L medial lower leg. Good seal obtained. Pt will follow up in clinic next Tuesday. HHRN will change dressing on Tuesday.
[2020-02-06] MEDS ORDERED: MICO14CR TP (14:29)
[2020-02-06] MEDS ORDERED: LEVO75TA5 PO (14:29)
[2020-02-06] MEDS ORDERED: CEFEPIME HCL IVP (14:29)
[2020-02-06] MEDS ORDERED: VANC250V IV (14:29)
--- NOTE | 2020-02-06 14:33 | SNU/HH DC ---
DISCHARGE WITH HOME HEALTH DISCHARGE INFORMATION: Discharge Date: Feb 06, 2020 Final Diagnosis: Problems Medical Problems: (1) AMS (altered mental status) Status: Acute (2) Uncontrolled hypertension Status: Acute (3) UTI (urinary tract infection) Status: Acute Condition on Discharge: Stable CODE STATUS: Code Status: Full HOME HEALTH: Face to Face: I certify this patient is under my care and that I, or a nurse practitioner or physician's assistant site manager working with me, had a face to face encounter that meets the physician face to face encounter requirements with this patient on . Medical Complications: DM, Other (Left foot wound) Half-Way For: Admin/Educate Injections, Assess & Educate Safety, Diabetic Care, Medication Management RN For Eval/Treatment: Yes Pt Meets Homebound Status: Limited distance walking POST DISCHARGE ORDERS: Activity Instructions for Disc: Activity as tolerated Weight Bearing Status after Di: As tolerated Bathing Instructions: Shower-keep dressing dry DIET AFTER DISCHARGE: ADA Wound/Incision Care: Reinforce dressing PRN CHECKS AFTER DISCHARGE: Checks after discharge: Check blood press - daily, Check blood sugar, ac/hs, Check your Temp as needed, Weigh Yourself Daily FOLLOW-UP: Follow up with: Dr. Derik Bloanos 02/20/2020 TREATMENT/EQUIPMENT ORDERS: Adaptive Equipment Issued: None, Front wheeled walker CERTIFICATION STATEMENT: Certification Statement: Certification Statement: Based on the above finding, I certify that this patient is confined to the home and needs intermittent correction care, physical therapy and/or speech therapy, or continues to need occupational therapy.~ This patient is under my care, and I have initiated the establishment of the plan of care.~ This patient will be followed by myself or a community physician who will periodically review the plan of care. Home Meds Active Scripts Levothyroxine Sodium (LEVOTHYROXINE SODIUM) 75 Mcg Tablet, 75 MCG PO DAILY06 for Hypothyroidism for 90 Days, #90 TAB Prov:ITA MOSQUEDA MD 02/06/20 Miconazole Nitrate (ANTIFUNGAL CREAM) 14 Gm Cream..g., 1 ODILIA TP BID for Inte rtrigo for 7 Days, #14 EACH Prov:ITA MOSQUEDA MD 02/06/20 Vancomycin HCl (Vancomycin HCl) 250 Mg Vial, 500 MG IV MWF for INFECTION for 14 Days, #6 EACH Prov:ITA MOSQUEDA MD 02/06/20 [Cefepime Hcl] 1 GM VIAL No Conflict Check, 3 GM IVP Q24H for OSTEOMYELITIS for 14 Days, #42 EACH Prov:ITA MOSQUEDA MD 02/06/20 Lactobacillus Rhamnosus Gg (CULTURELLE) 1 Each Cap.sprink, 1 CAP PO BID for SUPPLEMENT for 30 Days, #60 CAP Prov:FLORI DAVIES MD 01/04/20 Polyethylene Glycol 3350 (POLYETHYLENE GLYCOL 3350) 17 Gm Powd.pack, 17 GM PO PRN DAILY PRN for CONSTIPATION for 30 Days, #60 PKT Prov:FLORI DAVIES MD 01/04/20 Amiodarone Hcl (AMIODARONE HCL) 200 Mg Tablet, 200 MG PO DAILY for Afib for 30 Days, #30 TAB Prov:ITA MOSQUEDA MD 08/08/19 Warfarin Sodium (COUMADIN) 3 Mg Tablet, 3 MG PO 1X WARF for Afib/Hip PPX for 30 Days, #30 TAB Prov:ITA MOSQUEDA MD 08/08/19 Hydrocodone Bit/Acetaminophen (HYDROCODONE-APAP 7.5-325 ) 1 Tab Tablet, 1 TAB PO PRN Q4HRS PRN for PAIN for 6 Days, #15 TAB Prov:ITA MOSQUEDA MD 08/08/19 Insulin Glargine,Hum.rec.anlog (LANTUS SOLOSTAR) 100 Unit/1 Ml Insuln.pen, 10 UNIT SQ QHS for DM, #15 ML 3 Refills Prov:ITA MOSQUEDA MD 08/08/19 Reported Medications Simvastatin (SIMVASTATIN) 40 Mg Tablet, 1 TAB PO QHS for hld, #30 TAB 5 Refills 08/04/19 Metoprolol Tartrate (METOPROLOL TARTRATE) 50 Mg Tablet, 1 TAB PO BID for Afib, #60 TAB 5 Refills 07/07/19 Vit B Cmplx 3/Fa/Vit C/Biotin (MARY ANN-AMRIK RX TABLET) 1 Each Tablet, 1 EACH PO DAILY for dialysis, TAB 12/21/18 Insulin Aspart (NOVOLOG) 100 Unit/1 Ml Cartridge, 6 UNIT SQ TIDAC for DM, EACH 07/19/18 Calcium Acetate (CALCIUM ACETATE) 667 Mg Tablet, 2 CAP PO TIDAC for phosphate binder 07/03/18 Aspirin (ASPIR 81) 81 Mg Tablet., 1 TAB PO DAILY08 for heart health, #30 TAB 5 Refills 06/03/14 ITA MOSQUEDA MD Feb 06, 2020 14:33
--- NOTE | 2020-02-06 14:37 | PDOC3 ---
Discharge Summary Visit Information Date of Admission: Feb 04, 2020 Date of Discharge: Feb 06, 2020 Admitting Diagnosis: Acute encephalopathy Final Diagnosis Problems Medical Problems: (1) AMS (altered mental status) Status: Acute (2) Uncontrolled hypertension Status: Acute (3) UTI (urinary tract infection) Status: Acute Brief Hospital Course Allergies Allergies Coded Allergies Type Severity Reaction Last Updated Verified latex Allergy Intermediate Rash 12/30/17 Yes sulfamethoxazole Allergy Intermediate Hives 08/05/19 Yes trimethoprim Allergy Intermediate Hives 08/05/19 Yes Vital Signs Vital Signs Date Time Temp Pulse Resp B/P (MAP) Pulse Ox O2 Delivery O2 Flow Rate FiO2 02/06/20 08:16 71 153/61 02/06/20 08:00 Room Air 02/06/20 07:00 97.9 20 100 2.0 97.9 Lab Results Laboratory Tests Test 02/04/20 17:56 02/04/20 20:30 02/05/20 03:40 02/05/20 07:36 Glucose (Fingerstick) 75 mg/dL (70-99) 82 mg/dL (70-99) 83 mg/dL (70-99) White Blood Count 6.5 x10^3/uL (4.0-11.0) Red Blood Count 3.29 x10^6/uL (3.50-5.40) Hemoglobin 11.5 g/dL (12.0-15.5) Hematocrit 34.0 % (36.0-47.0) Mean Corpuscular Volume 103 fL (79-100) Mean Corpuscular Hemoglobin 35 pg (25-35) Mean Corpuscular Hemoglobin Concent 34 g/dL (31-37) Red Cell Distribution Width 19.3 % (11.5-14.5) Platelet Count 143 x10^3/uL (140-400) Neutrophils (%) (Auto) 69 % (31-73) Lymphocytes (%) (Auto) 20 % (24-48) Monocytes (%) (Auto) 8 % (0-9) Eosinophils (%) (Auto) 2 % (0-3) Basophils (%) (Auto) 1 % (0-3) Neutrophils # (Auto) 4.5 x10^3/uL (1.8-7.7) Lymphocytes # (Auto) 1.3 x10^3/uL (1.0-4.8) Monocytes # (Auto) 0.5 x10^3/uL (0.0-1.1) Eosinophils # (Auto) 0.1 x10^3/uL (0.0-0.7) Basophils # (Auto) 0.1 x10^3/uL (0.0-0.2) Prothrombin Time 15.3 SEC (11.7-14.0) Prothromb Time International Ratio 1.3 (0.8-1.1) Sodium Level 139 mmol/L (136-145) Potassium Level 3.9 mmol/L (3.5-5.1) Chloride Level 98 mmol/L (98-107) Carbon Dioxide Level 28 mmol/L (21-32) Anion Gap 13 (6-14) Blood Urea Nitrogen 28 mg/dL (7-20) Creatinine 5.2 mg/dL (0.6-1.0) Estimated GFR (Cockcroft-Gault) 8.0 Glucose Level 81 mg/dL (70-99) Calcium Level 9.0 mg/dL (8.5-10.1) Test 02/05/20 12:29 02/05/20 15:56 02/05/20 20:50 02/06/20 04:45 Glucose (Fingerstick) 109 mg/dL (70-99) 90 mg/dL (70-99) 128 mg/dL (70-99) Prothrombin Time 15.6 SEC (11.7-14.0) Prothromb Time International Ratio 1.3 (0.8-1.1) Sodium Level 135 mmol/L (136-145) Potassium Level 4.3 mmol/L (3.5-5.1) Chloride Level 97 mmol/L (98-107) Carbon Dioxide Level 29 mmol/L (21-32) Anion Gap 9 (6-14) Blood Urea Nitrogen 51 mg/dL (7-20) Creatinine 6.8 mg/dL (0.6-1.0) Estimated GFR (Cockcroft-Gault) 5.9 Glucose Level 155 mg/dL (70-99) Calcium Level 8.7 mg/dL (8.5-10.1) Phosphorus Level 6.4 mg/dL (2.6-4.7) Albumin 2.4 g/dL (3.4-5.0) Random Vancomycin Level 18.1 mcg/mL Test 02/06/20 08:07 02/06/20 13:38 Glucose (Fingerstick) 137 mg/dL (70-99) 113 mg/dL (70-99) Laboratory Tests Test 02/05/20 15:56 02/05/20 20:50 02/06/20 04:45 02/06/20 08:07 Glucose (Fingerstick) 90 mg/dL (70-99) 128 mg/dL (70-99) 137 mg/dL (70-99) Prothrombin Time 15.6 SEC (11.7-14.0) Prothromb Time International Ratio 1.3 (0.8-1.1) Sodium Level 135 mmol/L (136-145) Potassium Level 4.3 mmol/L (3.5-5.1) Chloride Level 97 mmol/L (98-107) Carbon Dioxide Level 29 mmol/L (21-32) Anion Gap 9 (6-14) Blood Urea Nitrogen 51 mg/dL (7-20) Creatinine 6.8 mg/dL (0.6-1.0) Estimated GFR (Cockcroft-Gault) 5.9 Glucose Level 155 mg/dL (70-99) Calcium Level 8.7 mg/dL (8.5-10.1) Phosphorus Level 6.4 mg/dL (2.6-4.7) Albumin 2.4 g/dL (3.4-5.0) Random Vancomycin Level 18.1 mcg/mL Test 02/06/20 13:38 Glucose (Fingerstick) 113 mg/dL (70-99) Brief Hospital Course Ms Beach is a 79yo F w/ PMHx ESRD on HD, coronary artery disease and paroxysmal atrial fibrillation presented with confusion. She was recently seen a month ago for LLE infection with osteomyelitis and has significant pyuria now. Confused for the past few days, so weak now is unable to ambulate. Daughter is present in the ED and states patient does not even recognize her. CT head negative for acute abnormality. Labs consistent with ESRD, BUN 58. BP 208/117. Admitted for further treatment. Consults: Nephrology, Infectious diseases 02/04: TSH 13. BUN 28, Cr 5.2. Improved BP from admission. She is more alert toda y. She tells me she would prefer I call her daughter Daniella instead of Rosalino. Discussed abnormal thyroid function. Back to her normal mental status today. Labs consistent with ESRD. Blood culture negative so far. No SOB or CP. Left foot wound still deep, slowly healing. Antibiotics changed to merrem for now. Needs to change back to cefepime and vancomycin for 2 weeks due to slow wound healing and f/u with ID in 2 weeks. Problem list:Acute encephalopathy - in patient with h/o MDRO UTI and recent bone culture positive and elevated blood pressure looks to be toxic and metabolic encephalopathy HTN urgency - will restart meds. PRN hydralazine ESRD oN HD - consult nephrology Paroxysmal Afib - on warfarin and amiodarone Acute encephalopathy - likely UTI Left foot diabetic infection, osteomyelitis based on op-report with purulent drainage and previous wound infection, chronic callus on plantar foot, Surface swab cultures polymicrobial organism Cultures positive for Bacteroides, Proteus, E. coli, enterococcus 12/24 Status post incision and drainage December 29, 2019 - bone cult 12/28 with Enterococcus Avium Diabetes mellitus - sliding scale + lantus PVD s/p angioplasty 12/26 on Left polpliteal - post tib with chronic total occlusion UTI - with pyuria, leukocyte esterase and hematuria, empiric antibiotics. consult ID Thrombocytopenia - will monitor. Previously noted in July 2019, resolved since Anemia - of chronic renal disease, macrocytosis noted, B12 in 500s Hypothyroidism - with elevated TSH 13, will check thyroid US Greater than 30 minutes spent on d/c Discharge Information Condition at Discharge: Improved Follow Up: Weeks Disposition/Orders: D/C to Home w/ HH Scheduled Amiodarone Hcl (Amiodarone Hcl) 200 Mg Tablet, 200 MG PO DAILY for Afib for 30 Days, #30 Prescribed by: ITA MOSQUEDA MD on 08/08/19 1540 Last Action: Continued on 02/04/20 1143 by ITA MOSQUEDA MD Aspirin (Aspir 81) 81 Mg Tablet., 1 TAB PO DAILY08 for heart health, #30 Ref 5 (Reported) Entered as Reported by: ARTURO CARDENAS on 06/03/14 1540 Last Action: Continued on 02/04/20 1143 by ITA MOSQUEDA MD Calcium Acetate (Calcium Acetate) 667 Mg Tablet, 2 CAP PO TIDAC for phosphate binder, (Reported) Entered as Reported by: MARIYA PEARL on 07/03/18 1019 Last Action: Converted on 02/04/20 1143 by ITA MOSQUEDA MD Insulin Aspart (Novolog) 100 Unit/1 Ml Cartridge, 6 UNIT SQ TIDAC for DM, (Reported) Entered as Reported by: SANJANA HOOPER on 07/19/18 1613 Last Action: Converted on 02/04/20 1143 by ITA MOSQUEDA MD Insulin Glargine,Hum.rec.anlog (Lantus Solostar) 100 Unit/1 Ml Insuln.pen, 10 UNIT SQ QHS for DM, #15 Ref 3 Prescribed by: ITA MOSQUEDA MD on 08/08/19 1540 Last Action: Converted on 02/04/201142 by ITA MOSQUEDA MD Lactobacillus Rhamnosus Gg (Culturelle) 1 Each Cap.sprink, 1 CAP PO BID for SUPPLEMENT for 30 Days, #60 Prescribed by: FLORI DAVIES MD on 01/04/20 1414 Last Action: Continued on 02/04/201142 by ITA MOSQUEDA MD Levothyroxine Sodium (Levothyroxine Sodium) 75 Mcg Tablet, 75 MCG PO DAILY06 for Hypothyroidism for 90 Days, #90 Prescribed by: ITA MOSQUEDA MD on 02/06/20 1429 Metoprolol Tartrate (Metoprolol Tartrate) 50 Mg Tablet, 1 TAB PO BID for Afib, #60 Ref 5 (Reported) Entered as Reported by: JUANITA MARTINEZ on 07/07/19 1054 Last Action: Continued on 02/04/20 114 by ITA MOSQUEDA MD Miconazole Nitrate (Antifungal Cream) 14 Gm Cream..g., 1 ODILIA TP BID for Intertrigo for 7 Days, #14 Prescribed by: ITA MOSQUEDA MD on 02/06/20 1429 Simvastatin (Simvastatin) 40 Mg Tablet, 1 TAB PO QHS for hld, #30 Ref 5 (Reported) Entered as Reported by: MARIANNE DE LA GARZA on 08/04/19 1447 Last Action: Continued on 02/04/20 1143 by ITA MOSQUEDA MD Vancomycin HCl (Vancomycin HCl) 250 Mg Vial, 500 MG IV MWF for INFECTION for 14 Days, #6 Prescribed by: ITA MOSQUEDA MD on 02/06/20 1429 Vit B Cmplx 3/Fa/Vit C/Biotin (Funmi-Hannah Rx Tablet) 1 Each Tablet, 1 EACH PO DAILY for dialysis, (Reported) Entered as Reported by: ESE SAM on 12/21/18 1014 Last Action: Converted on 02/04/20 1143 by ITA MOSQUEDA MD Warfarin Sodium (Coumadin) 3 Mg Tablet, 3 MG PO 1X WARF for Afib/Hip PPX for 30 Days, #30 Prescribed by: ITA MOSQUEDA MD on 08/08/19 1540 Last Action: Continued on 02/04/20 114 by ITA MOSQUEDA MD [Cefepime Hcl] 1 GM VIAL, 3 GM IVP Q24H for OSTEOMYELITIS for 14 Days, #42 Prescribed by: TIA MOSQUEDA MD on 02/06/20 1429 Scheduled PRN Hydrocodone Bit/Acetaminophen (Hydrocodone-Apap 7.5-325 ) 1 Tab Tablet, 1 TAB PO PRN Q4HRS PRN for PAIN for 6 Days, #15 Prescribed by: ITA MOSQUEDA MD on 08/08/19 1541 Last Action: Continued on 02/04/20 114 by ITA MOSQUEDA MD Polyethylene Glycol 3350 (Polyethylene Glycol 3350) 17 Gm Powd.pack, 17 GM PO PRN DAILY PRN for CONSTIPATION for 30 Days, #60 Prescribed by: FLORI DAVIES MD on 01/04/20 1414 Last Action: Continued on 02/04/20 114 by ITA MOSQUEDA MD Justicifation of Admission Dx: Justifications for Admission: Justification of Admission Dx: Yes CHF: Cardiac Arrhythmias Altered Mental Status: Altered Mental Status ITA MOSQUEDA MD Feb 06, 2020 14:37
--- NOTE | 2020-02-06 16:01 | NUR ---
SS following up with discharge planning. SS reviewed pt chart and discussed with pt RN. Discharge orders received for home healthcare. SS phoned and faxed discharge orders and updated clinical to [facility], ; fax [phone]. Scripts received for IV Cefepime and Vancomycin to be given at dialysis. SS phoned and faxed scripts, discharge orders and clinical to [facility], ; fax [phone]. [facility] confirmed receipt of scripts and clinical. Pt's RN notified.
[2020-02-06] MEDS: WARFARIN 3 MG TABLET. PO SCH (16:11)
--- NOTE | 2020-02-06 16:40 | NUR ---
Pt discharged to home with all belongings. Pt and daughter verbalized understanding of discharge instructions and medications. IV removed with cath intact.
== END 2020-02-06 16:35 | disposition home health service (06) | DRG 70 ==
LOC: ER 05:30 → 1 WEST ICU 08:43
PROVIDERS: ADMIT Internal Medicine; ATTEND Internal Medicine
PROC: 5A1D70Z Performance of Urinary Filtration, Intermittent, Less than 6 Hours Per Day (ICD-10-PCS; principal; 2020-02-04)
PROC: 5A1D70Z Performance of Urinary Filtration, Intermittent, Less than 6 Hours Per Day (ICD-10-PCS; 2020-02-06)
DX: G93.41 Metabolic encephalopathy (principal); N18.6 End stage renal disease; N39.0 Urinary tract infection, site not specified; I12.0 Hypertensive chronic kidney disease with stage 5 chronic kidney disease or end stage renal disease; Z20.828 Contact with and (suspected) exposure to other viral communicable diseases; B37.3 Candidiasis of vulva and vagina; D53.9 Nutritional anemia, unspecified; D63.1 Anemia in chronic kidney disease; D69.6 Thrombocytopenia, unspecified; D75.89 Other specified diseases of blood and blood-forming organs; E03.9 Hypothyroidism, unspecified; E11.22 Type 2 diabetes mellitus with diabetic chronic kidney disease; E11.51 Type 2 diabetes mellitus with diabetic peripheral angiopathy without gangrene; E78.00 Pure hypercholesterolemia, unspecified; E78.5 Hyperlipidemia, unspecified; I16.0 Hypertensive urgency; I25.10 Atherosclerotic heart disease of native coronary artery without angina pectoris; I48.0 Paroxysmal atrial fibrillation; Z79.01 Long term (current) use of anticoagulants; Z79.4 Long term (current) use of insulin; Z82.49 Family history of ischemic heart disease and other diseases of the circulatory system; Z86.73 Personal history of transient ischemic attack (TIA), and cerebral infarction without residual deficits; Z95.1 Presence of aortocoronary bypass graft; Z98.62 Peripheral vascular angioplasty status; Z99.2 Dependence on renal dialysis; E21.3 Hyperparathyroidism, unspecified; E11.42 Type 2 diabetes mellitus with diabetic polyneuropathy; K57.90 Diverticulosis of intestine, part unspecified, without perforation or abscess without bleeding; Z88.2 Allergy status to sulfonamides; Z88.1 Allergy status to other antibiotic agents; Z91.040 Latex allergy status
CPT/HCPCS: 36415; 70450; 71045; 76536; 80048; 80053; 80069; 80202; 81001; 82550; 82607; 82962; 83605; 83690; 83735; 84443; 84484; 85025; 85610; 85730; 87040; 87086; 93005; 96365; 96366; 96367; 96375; J0696; J1815; J2185; J3370; 99285-25; G0378; U0003-CS

== ENCOUNTER 2020-02-17 08:08 | Inpatient (IN) | payer MEDICARE, MEDICAID ==
[~2020-02-17] VITALS: Ht 162.6 cm; Wt 67.6 kg
[~2020-02-17 08:08] MED LIST changes: +LEVO75TA5 PO; +MICO14CR TP
[2020-02-17] MEDS ORDERED: diphenhydrAMINE 50 MG/ML VIAL IVP ONE (08:30)
[2020-02-17 09:16] LABS: BILIRUBIN,URINE NEGATIVE (NEG); CLARITY,URINE CLOUDY; COLOR,URINE YELLOW; NITRITE,URINE NEGATIVE (NEG); PH,URINE 7.5 (<5.0-8.0); PROTEIN,URINE >=300 mg/dL (NEG-TRACE); UROBILINOGEN,URINE 0.2 mg/dL (0.2 mg/dL)
[2020-02-17 09:25] LABS: SQUAMOUS EPITHELIAL CELL,UR MOD /LPF
[2020-02-17 09:26] LABS: BACTERIA,URINE 0 /HPF (0-FEW); RBC,URINE >40 /HPF (0-2); WBC,URINE TNTC /HPF (0-4)
[2020-02-17 09:41] LABS: BASO # 0.1 x10^3/uL (0.0-0.2); BASO % 1 % (0-3); EOS # 0.3 x10^3/uL (0.0-0.7); EOS % 6 % (0-3); HEMATOCRIT 29.6 % (36.0-47.0); LYMPH # 1.2 x10^3/uL (1.0-4.8); LYMPH % 21 % (24-48); MEAN CORPUSCULAR HEMOGLOBIN 35 pg (25-35); MEAN CORPUSCULAR HGB CONC 34 g/dL (31-37); MEAN CORPUSCULAR VOLUME 104 fL (79-100); MONO # 0.6 x10^3/uL (0.0-1.1); MONO % 10 % (0-9); NEUT # 3.5 x10^3/uL (1.8-7.7); NEUT % 62 % (31-73); PLATELET COUNT 115 x10^3/uL (140-400); RED BLOOD COUNT 2.84 x10^6/uL (3.50-5.40); RED CELL DISTRIBUTION WIDTH 17.5 % (11.5-14.5); WHITE BLOOD COUNT 5.7 x10^3/uL (4.0-11.0)
[2020-02-17 09:51] LABS: CALCIUM 8.4 mg/dL (8.5-10.1); CREATININE 6.8 mg/dL (0.6-1.0); GFR 5.9; POTASSIUM 4.2 mmol/L (3.5-5.1)
[2020-02-17 09:54] LABS: ALBUMIN 2.7 g/dL (3.4-5.0); ALBUMIN/GLOBULIN RATIO 0.6 (1.0-1.7); MAGNESIUM 2.3 mg/dL (1.8-2.4); TOTAL BILIRUBIN 0.4 mg/dL (0.2-1.0); TOTAL PROTEIN 7.2 g/dL (6.4-8.2)
[2020-02-17] MEDS ORDERED: ONDANSETRON PF 4 MG/2 ML VIAL. IV PRN (10:30)
[2020-02-17] MEDS ORDERED: ACETAMINOPHEN 325 MG TABLET. PO PRN (10:30)
[2020-02-17] MEDS ORDERED: fentaNYL PF VIAL 100 MCG/2 ML VIAL IV PRN (10:30)
[2020-02-17] MEDS ORDERED: cefTRIAXone IV Push 1 GM VIAL. IVP ONE (10:30)
[2020-02-17] MEDS ORDERED: INSU100I13 SQ (11:27)
[2020-02-17] MEDS ORDERED: THYR30TA PO (11:27)
[2020-02-17] MEDS: THYROID,PORK 60 MG TABLET PO SCH (11:31)
[2020-02-17 11:35] VITALS: BP 160/62
--- NOTE | 2020-02-17 11:56 | HP ---
ADMIT DATE: 02/17/2020 CHIEF COMPLAINT: Mental status change and weakness. HISTORY OF PRESENT ILLNESS: The patient is a pleasant middle-aged female, well known to our service. Basically, she has been on dialysis for the past several years and has acute on chronic UTIs often. Once again, she presents with weakness, mental status change. She has a large amount of leukocyte esterase and too numerous to count white cells in her urine. I discussed the case with ER physician. We are going to admit the patient, give her IV antibiotics and consult Nephrology. She also has a left leg wound. We will be consulting with her orthopedic doctor, Dr. Guthrie. PAST MEDICAL HISTORY: End-stage renal disease on dialysis, hyperlipidemia, hypertension, diabetes, recently diagnosed hypothyroidism, chronic wound on the left leg and she has a wound VAC on that, arthritis, depression, anxiety. ALLERGIES: LATEX, SULFA AND TRIMETHOPRIM. FAMILY HISTORY: Diabetes. SOCIAL HISTORY: She does not drink, smoke or take drugs. MEDICATIONS: Reviewed, please refer to the MRAD. REVIEW OF SYSTEMS: GENERAL: No history of weight change, weakness or fevers. SKIN: No bruising, hair changes or rashes. EYES: No blurred, double or loss of vision. NOSE AND THROAT: No history of nosebleeds, hoarseness or sore throat. HEART: No history of palpitations, chest pain or shortness of breath on exertion. LUNGS: Denies cough, hemoptysis, wheezing or shortness of breath. GASTROINTESTINAL: Denies changes in appetite, nausea, vomiting, diarrhea or constipation. GENITOURINARY: No history of frequency, urgency, hesitancy or nocturia. NEUROLOGIC: She complains of weakness and confusion. PSYCHIATRIC: No history of panic, anxiety or depression. ENDOCRINE: No history of heat or cold intolerance, polyuria or polydipsia. EXTREMITIES: Denies muscle weakness, joint pain, pain on walking or stiffness. PHYSICAL EXAMINATION: VITALS: Within normal limits and are stable. GENERAL: No apparent distress. Alert and oriented. HEENT: Normal cephalic atraumatic, external auditory canals are patent EYES: Extraocular muscles are intact, pupils are equally round and reactive to light and accommodation MUSCULOSKELETAL: Well developed, well nourished, good range of motion ENDOCRINE: No thyromegaly was palpated LYMPHATICS: No cervical chain or axillary nodes were noted HEMATOPOIETIC: No bruising NECK: Supple, no JVD, no thyromegaly was noted. LUNGS: Clear to auscultation in all lung gutierrez without rhonchi or wheezing. HEART: RRR, S1, S2 present. Peripheral pulses intact, no obvious murmurs were noted. ABDOMEN: Soft, nontender. Positive bowel sounds no organomegaly, normal bowel sounds. EXTREMITIES: She has a wound VAC on the left leg. NEUROLOGIC: She is a little confused and weak. PSYCHIATRIC: Normal affect, normal mood. Stable. SKIN: No ulcerations or rashes, good skin turgor, no jaundice. VASCULAR: Good capillary refill, neurovascular bundle appears to be intact. LABORATORY DATA: Urinalysis shows a large amount of leukocyte esterase. ASSESSMENT AND PLAN: Acute on chronic urinary tract infection, chronic left leg wound, end-stage renal disease. The patient has been admitted. We will consult Infectious Disease. Consult Orthopedics. Consult Nephrology. IV antibiotics, home meds, DVT prophylaxis. Full code. Coumadin per pharmacy. NIDIA SQUIRES DO DR: GABI/anthony JOB#: [id number] / [id number]
[2020-02-17] MEDS ORDERED: HYDROcodone/APAP 7.5/325MG 1 TAB TABLET PO PRN (12:00)
[2020-02-17] MEDS ORDERED: POLYETHYLENE GLYCOL 3350 17 GM PACKET. PO PRN (12:00)
[2020-02-17] MEDS: CALCIUM ACETATE 667 MG CAPSULE PO SCH ×2 (12:00→16:30)
[2020-02-17] MEDS: METOPROLOL TART IMMED RELEASE 50 MG TABLET. PO SCH ×2 (12:32→21:38)
[2020-02-17] MEDS: FOLIC/VIT B COMP W-C (RENAL) TABLET. PO SCH (12:33)
--- NOTE | 2020-02-17 12:46 | PDOC ---
Infectious Disease Note Subjective Subjective Ms. eller is here because of weakness for 1 day. She says she just did not feel well. There was no fever there was no nausea vomiting diarrhea chest pain shortness of breath ROS ROS She denies chest pain shortness of breath abdominal pain headache or visual symptoms no urinary symptoms. Vital Sign Vital Signs Vital Signs Date Time Temp Pulse Resp B/P (MAP) Pulse Ox O2 Delivery O2 Flow Rate FiO2 02/17/20 11:35 97.9 75 20 160/62 (94) 93 Room Air 97.9 Physical Exam PHYSICAL EXAM Patient is comfortable not in distress. HEENT normal Neck supple Lungs clear Heart S1-S2 regular Abdomen soft nontender no organomegaly Extremities no edema or cyanosis Skin examination is unremarkable Foot has a wound VAC that was not open today it will be changed tomorrow I will look at it then [employer] no focal deficit Labs Lab Laboratory Tests Test 02/17/20 09:00 02/17/20 09:25 02/17/20 11:25 Urine Collection Type U cath Urine Color Yellow Urine Clarity Cloudy Urine pH 7.5 (<5.0-8.0) Urine Specific [place] 1.010 (1.000-1.030) Urine Protein >=300 mg/dL (NEG-TRACE) Urine Glucose (UA) 100 mg/dL (NEG) Urine Ketones (Stick) Negative mg/dL (NEG) Urine Blood Large (NEG) Urine Nitrite Negative (NEG) Urine Bilirubin Negative (NEG) Urine Urobilinogen Dipstick 0.2 mg/dL (0.2 mg/dL) Urine Leukocyte Esterase Large (NEG) Urine RBC >40 /HPF (0-2) Urine WBC Tntc /HPF (0-4) Urine Squamous Epithelial Cells Mod /LPF Urine Bacteria 0 /HPF (0-FEW) White Blood Count 5.7 x10^3/uL (4.0-11.0) Red Blood Count 2.84 x10^6/uL (3.50-5.40) Hemoglobin 10.0 g/dL (12.0-15.5) Hematocrit 29.6 % (36.0-47.0) Mean Corpuscular Volume 104 fL (79-100) Mean Corpuscular Hemoglobin 35 pg (25-35) Mean Corpuscular Hemoglobin Concent 34 g/dL (31-37) Red Cell Distribution Width 17.5 % (11.5-14.5) Platelet Count 115 x10^3/uL (140-400) Neutrophils (%) (Auto) 62 % (31-73) Lymphocytes (%) (Auto) 21 % (24-48) Monocytes (%) (Auto) 10 % (0-9) Eosinophils (%) (Auto) 6 % (0-3) Basophils (%) (Auto) 1 % (0-3) Neutrophils # (Auto) 3.5 x10^3/uL (1.8-7.7) Lymphocytes # (Auto) 1.2 x10^3/uL (1.0-4.8) Monocytes # (Auto) 0.6 x10^3/uL (0.0-1.1) Eosinophils # (Auto) 0.3 x10^3/uL (0.0-0.7) Basophils # (Auto) 0.1 x10^3/uL (0.0-0.2) Prothrombin Time 20.0 SEC (11.7-14.0) Prothromb Time International Ratio 1.7 (0.8-1.1) Sodium Level 141 mmol/L (136-145) Potassium Level 4.2 mmol/L (3.5-5.1) Chloride Level 100 mmol/L (98-107) Carbon Dioxide Level 29 mmol/L (21-32) Anion Gap 12 (6-14) Blood Urea Nitrogen 55 mg/dL (7-20) Creatinine 6.8 mg/dL (0.6-1.0) Estimated GFR (Cockcroft-Gault) 5.9 BUN/Creatinine Ratio 8 (6-20) Glucose Level 202 mg/dL (70-99) Calcium Level 8.4 mg/dL (8.5-10.1) Magnesium Level 2.3 mg/dL (1.8-2.4) Total Bilirubin 0.4 mg/dL (0.2-1.0) Aspartate Amino Transf (AST/SGOT) 34 U/L (15-37) Alanine Aminotransferase (ALT/SGPT) 44 U/L (14-59) Alkaline Phosphatase 130 U/L (46-116) Troponin I Quantitative < 0.017 ng/mL (0.000-0.055) Total Protein 7.2 g/dL (6.4-8.2) Albumin 2.7 g/dL (3.4-5.0) Albumin/Globulin Ratio 0.6 (1.0-1.7) Glucose (Fingerstick) 157 mg/dL (70-99) Objective Assessment Questionable UTI/colonization Foot wound on antibiotics End-stage renal disease on hemodialysis Plan Plan of Care Questionable need for admission Continue antibiotics through dialysis Continue wound VAC ANA CRISTINA العلي MD Feb 17, 2020 12:46
[2020-02-17] MEDS ORDERED: VANCOMYCIN 1.5 GM in IV NORMAL SALINE 500ML BAG 500 ML IV ONE (13:30)
[2020-02-17] MEDS: CEFEPIME HCL IV Push 1 GM VIAL. IVP SCH (13:39)
[2020-02-17 15:00] VITALS: BP 122/43
[2020-02-17] MEDS ORDERED: WARFARIN 3 MG TABLET. PO ONE (16:00)
[2020-02-17] MEDS: diphenhydrAMINE HCL 25 MG CAPSULE PO PRN ×2 (16:30→22:37)
[2020-02-17] MEDS: INSULIN LISPRO 300 UNITS/3 ML VIAL. SQ SCH (16:43)
--- NOTE | 2020-02-17 16:43 | NUR ---
PT WOULD ONLY TAKE 4 UNITS OF HUMALOG WITH DINNER BS OF 180. DR. SQUIRES NOTIFIED, NO CONCERNS AT THIS TIME.
[2020-02-17 19:00] VITALS: BP 125/44
[2020-02-17] MEDS: VANCOMYCIN PER PHARMACY MC PRN (20:49)
--- NOTE | 2020-02-17 20:50 | NUR ---
Pharmacy Vancomycin Dosing Note S:Consulted to monitor and dose vancomycin started 02/17/20. O:BRYANT LOCKHART is a 79 year old F with Cellulitis UTI . Height: 5 feet, 4 inches Weight: 63.0 kg [place] Body Weight: 54.70 Adjusted Body Weight: 58.02 Dosing Weight: Actual Other Antibiotics: CEFEPIME LABS: Last BUN: Last Creatinine: 6.8 Creatinine Clearance: 11 mL/min Last WBC: 5.7 Last Procalcitonin: Tmax (past 24 hours): Microbiology: I/O: Drug Levels: Last level: on at Last dose given 02/17/20 at 1339 Vancomycin Dosing: Loading Dose: 1500 mg x1 Dosing Weight: Actual Target Trough: 10-20 A: Based on: WEIGHT AND RENAL FUNCTION, P: 1. Begin Vancomycin IV 1.5 GM IV X1 2. Follow up Random level on 02/19/20 at 1400 3. Pharmacy will continue to monitor, follow and adjust therapy as needed. JOSE BAKER RPH, 02/17/202049
[2020-02-17] MEDS: INSULIN GLARGINE SYRINGE. SQ SCH (21:00)
[2020-02-17] MEDS: LACTOBACILLUS RHAMNOSUS GG 1 CAPSULE. PO SCH (21:38)
[2020-02-17] MEDS: SIMVASTATIN 40 MG TABLET. PO SCH (21:38)
[2020-02-17 23:00] VITALS: BP 135/47
[2020-02-18 03:00] VITALS: BP 127/43
[2020-02-18 05:21] LABS: BASO % 1 % (0-3); EOS # 0.3 x10^3/uL (0.0-0.7); EOS % 5 % (0-3); HEMATOCRIT 31.9 % (36.0-47.0); HEMOGLOBIN 10.7 g/dL (12.0-15.5); LYMPH # 1.2 x10^3/uL (1.0-4.8); LYMPH % 23 % (24-48); MEAN CORPUSCULAR HEMOGLOBIN 35 pg (25-35); MEAN CORPUSCULAR HGB CONC 34 g/dL (31-37); MEAN CORPUSCULAR VOLUME 105 fL (79-100); MONO # 0.5 x10^3/uL (0.0-1.1); MONO % 9 % (0-9); NEUT # 3.3 x10^3/uL (1.8-7.7); NEUT % 63 % (31-73); PLATELET COUNT 108 x10^3/uL (140-400); RED BLOOD COUNT 3.03 x10^6/uL (3.50-5.40); RED CELL DISTRIBUTION WIDTH 17.6 % (11.5-14.5); WHITE BLOOD COUNT 5.3 x10^3/uL (4.0-11.0)
[2020-02-18 05:50] LABS: ALBUMIN 2.6 g/dL (3.4-5.0); ALBUMIN/GLOBULIN RATIO 0.5 (1.0-1.7); CALCIUM 8.7 mg/dL (8.5-10.1); CREATININE 7.8 mg/dL (0.6-1.0); POTASSIUM 4.4 mmol/L (3.5-5.1); TOTAL BILIRUBIN 0.4 mg/dL (0.2-1.0); TOTAL PROTEIN 7.4 g/dL (6.4-8.2)
[2020-02-18 05:51] LABS: PROTHROMBIN TIME PATIENT 19.6 SEC (11.7-14.0)
--- NOTE | 2020-02-18 06:11 | PHYS DOC ---
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 The daughter provides much of the history. Apparently, the patient has been progressively weaker and this morning was much more so. The daughter is concerned because every time this begins to happen she has a urinary tract infection. The last time this happened she ended up septic in the intensive care unit and the daughter states that she just did not want that to get to that point again. There is been no report of fever chills or sweats no nausea or vomiting. She has had dialysis is scheduled. Patient and her daughter state that the wound VAC on her lower extremity continues to drain. According to the daughter patient is supposed to have an MRI of her lower extremity soon because there is concern for osteomyelitis. She is on IV antibiotics which are given during her time at dialysis. The patient and the daughter are unsure exactly what antibiotics are given. [] Review of Systems: Review of Systems: Constitutional: Denies fever or chills. [] Eyes: Denies change in visual acuity. [] HENT: Denies nasal congestion or sore throat. [] Respiratory: Denies cough or shortness of breath. [] Cardiovascular: Denies chest pain or edema. [] GI: Denies abdominal pain, nausea, vomiting, bloody stools or diarrhea. [] : Reports dysuria [] Musculoskeletal: Chronic wound with a wound VAC as described in HPI. [] Integument: Denies rash. [] Neurologic: Denies headache, focal weakness or sensory changes. [] Endocrine: Denies polyuria or polydipsia. [] Lymphatic: Denies swollen glands. [] Psychiatric: Depressed affect [] Heart Score: Risk Factors: Risk Factors: DM, Current or recent (<one month) smoker, HTN, HLP, family history of CAD, obesity. Risk Scores: Score 0 - 3: 2.5% MACE over next 6 weeks - Discharge Home Score 4 - 6: 20.3% MACE over next 6 weeks - Admit for Clinical Observation Score 7 - 10: 72.7% MACE over next 6 weeks - Early Invasive Strategies Current Medications: Current Medications Medications (Trade) Dose Ordered Sig/[place]aud[place] Start Time Stop Time Status Last Admin Dose Admin Acetaminophen (Tylenol) 650 mg PRN Q4HRS PRN 02/17/20 10:30 02/18/20 10:29 Ceftriaxone Sodium (Rocephin) 1 gm 1X ONCE 02/17/20 10:30 02/17/20 10:31 DC 02/17/20 10:41 1 GM Diphenhydramine HCl (Benadryl) 25 mg 1X ONCE 02/17/20 08:30 02/17/20 08:31 DC 02/17/20 09:11 25 MG Fentanyl Citrate (Fentanyl 2ml Vial) 50 mcg PRN Q1HR PRN 02/17/20 10:30 02/18/20 10:29 Ondansetron HCl (Zofran) 4 mg PRN Q8HRS PRN 02/17/20 10:30 02/18/20 10:29 Allergies: Allergies: Allergies Coded Allergies Type Severity Reaction Last Updated Verified latex Allergy Intermediate Rash 12/30/17 Yes sulfamethoxazole Allergy Intermediate Hives 08/05/19 Yes trimethoprim Allergy Intermediate Hives 08/05/19 Yes Physical Exam: PE: Constitutional: Frail elderly female who appears acutely ill. [] HENT: Normocephalic, atraumatic, bilateral external ears normal, oropharynx moist, no oral exudates, nose normal. [] Eyes: PERRLA, EOMI, conjunctiva normal, no discharge. [] Neck: Normal range of motion, no tenderness, supple, no stridor. [] Cardiovascular:Heart rate regular rhythm, no murmur, dialysis fistula left arm with good thrill [] Lungs & Thorax: Bilateral breath sounds clear to auscultation [] Abdomen: Bowel sounds normal, soft, no tenderness, no masses, no pulsatile masses. [] Skin: Warm, dry, no erythema, no rash. [] Back: No tenderness, no CVA tenderness. [] Extremities: Wound VAC right lower extremity. [] Neurologic: Alert and oriented X 3, normal motor function, normal sensory function, no focal deficits noted. [] Psychologic: Depressed affect [] Current Patient Data: Labs: Laboratory Tests Test 02/17/20 09:00 02/17/20 09:25 02/17/20 11:25 02/17/20 16:34 Urine Collection Type U cath Urine Color Yellow Urine Clarity Cloudy Urine pH 7.5 (<5.0-8.0) Urine Specific [place] 1.010 (1.000-1.030) Urine Protein >=300 mg/dL (NEG-TRACE) Urine Glucose (UA) 100 mg/dL (NEG) Urine Ketones (Stick) Negative mg/dL (NEG) Urine Blood Large (NEG) Urine Nitrite Negative (NEG) Urine Bilirubin Negative (NEG) Urine Urobilinogen Dipstick 0.2 mg/dL (0.2 mg/dL) Urine Leukocyte Esterase Large (NEG) Urine RBC >40 /HPF (0-2) Urine WBC Tntc /HPF (0-4) Urine Squamous Epithelial Cells Mod /LPF Urine Bacteria 0 /HPF (0-FEW) White Blood Count 5.7 x10^3/uL (4.0-11.0) Red Blood Count 2.84 x10^6/uL (3.50-5.40) L Hemoglobin 10.0 g/dL (12.0-15.5) L Hematocrit 29.6 % (36.0-47.0) L Mean Corpuscular Volume 104 fL (79-100) H Mean Corpuscular Hemoglobin 35 pg (25-35) Mean Corpuscular Hemoglobin Concent 34 g/dL (31-37) Red Cell Distribution Width 17.5 % (11.5-14.5) H Platelet Count 115 x10^3/uL (140-400) L Neutrophils (%) (Auto) 62 % (31-73) Lymphocytes (%) (Auto) 21 % (24-48) L Monocytes (%) (Auto) 10 % (0-9) H Eosinophils (%) (Auto) 6 % (0-3) H Basophils (%) (Auto) 1 % (0-3) Neutrophils # (Auto) 3.5 x10^3/uL (1.8-7.7) Lymphocytes # (Auto) 1.2 x10^3/uL (1.0-4.8) Monocytes # (Auto) 0.6 x10^3/uL (0.0-1.1) Eosinophils # (Auto) 0.3 x10^3/uL (0.0-0.7) Basophils # (Auto) 0.1 x10^3/uL (0.0-0.2) Prothrombin Time 20.0 SEC (11.7-14.0) H Prothrombin Time INR 1.7 (0.8-1.1) H Sodium Level 141 mmol/L (136-145) Potassium Level 4.2 mmol/L (3.5-5.1) Chloride Level 100 mmol/L (98-107) Carbon Dioxide Level 29 mmol/L (21-32) Anion Gap 12 (6-14) Blood Urea Nitrogen 55 mg/dL (7-20) H Creatinine 6.8 mg/dL (0.6-1.0) H Estimated GFR (Cockcroft-Gault) 5.9 BUN/Creatinine Ratio 8 (6-20) Glucose Level 202 mg/dL (70-99) H Calcium Level 8.4 mg/dL (8.5-10.1) L Magnesium Level 2.3 mg/dL (1.8-2.4) Total Bilirubin 0.4 mg/dL (0.2-1.0) Aspartate Amino Transferase (AST) 34 U/L (15-37) Alanine Aminotransferase (ALT) 44 U/L (14-59) Alkaline Phosphatase 130 U/L (46-116) H Troponin I Quantitative < 0.017 ng/mL (0.000-0.055) Total Protein 7.2 g/dL (6.4-8.2) Albumin 2.7 g/dL (3.4-5.0) L Albumin/Globulin Ratio 0.6 (1.0-1.7) L Glucose (Fingerstick) 157 mg/dL (70-99) H 180 mg/dL (70-99) H Test 02/17/20 20:19 02/18/20 04:25 Glucose (Fingerstick) 171 mg/dL (70-99) H White Blood Count 5.3 x10^3/uL (4.0-11.0) Red Blood Count 3.03 x10^6/uL (3.50-5.40) L Hemoglobin 10.7 g/dL (12.0-15.5) L Hematocrit 31.9 % (36.0-47.0) L Mean Corpuscular Volume 105 fL (79-100) H Mean Corpuscular Hemoglobin 35 pg (25-35) Mean Corpuscular Hemoglobin Concent 34 g/dL (31-37) Red Cell Distribution Width 17.6 % (11.5-14.5) H Platelet Count 108 x10^3/uL (140-400) L Neutrophils (%) (Auto) 63 % (31-73) Lymphocytes (%) (Auto) 23 % (24-48) L Monocytes (%) (Auto) 9 % (0-9) Eosinophils (%) (Auto) 5 % (0-3) H Basophils (%) (Auto) 1 % (0-3) Neutrophils # (Auto) 3.3 x10^3/uL (1.8-7.7) Lymphocytes # (Auto) 1.2 x10^3/uL (1.0-4.8) Monocytes # (Auto) 0.5 x10^3/uL (0.0-1.1) Eosinophils # (Auto) 0.3 x10^3/uL (0.0-0.7) Basophils # (Auto) 0.0 x10^3/uL (0.0-0.2) Prothrombin Time 19.6 SEC (11.7-14.0) H Prothrombin Time INR 1.7 (0.8-1.1) H Sodium Level 141 mmol/L (136-145) Potassium Level 4.4 mmol/L (3.5-5.1) Chloride Level 101 mmol/L (98-107) Carbon Dioxide Level 27 mmol/L (21-32) Anion Gap 13 (6-14) Blood Urea Nitrogen 63 mg/dL (7-20) H Creatinine 7.8 mg/dL (0.6-1.0) H Estimated GFR (Cockcroft-Gault) 5.0 BUN/Creatinine Ratio 8 (6-20) Glucose Level 138 mg/dL (70-99) H Calcium Level 8.7 mg/dL (8.5-10.1) Total Bilirubin 0.4 mg/dL (0.2-1.0) Aspartate Amino Transferase (AST) 36 U/L (15-37) Alanine Aminotransferase (ALT) 45 U/L (14-59) Alkaline Phosphatase 133 U/L (46-116) H Total Protein 7.4 g/dL (6.4-8.2) Albumin 2.6 g/dL (3.4-5.0) L Albumin/Globulin Ratio 0.5 (1.0-1.7) L Laboratory Tests 02/17/20 09:25 02/18/20 04:25 Laboratory Tests 02/17/20 09:25 02/18/20 04:25 Vital Signs: Vital Signs Date Time Temp Pulse Resp B/P (MAP) Pulse Ox O2 Delivery O2 Flow Rate FiO2 02/18/20 03:00 97.9 67 18 127/43 (71) 96 Room Air 97.9 EKG: EKG: EKG: Normal sinus rhythm rate of [address]-T changes [] Radiology/Procedures: Radiology/Procedures: [] Course & Med Decision Making: Course & Med Decision Making Pertinent Labs and Imaging studies reviewed. (See chart for details) [ED course: Evaluation reveals a complicated 79-year-old patient who is receiving IV antibiotics for a lower extremity wound who presents today with altered mental status and now with what looks like a new urinary tract infection. She was given IV antibiotics to cover her urinary tract infection in the emergency department. I believe the patient will need to be admitted to make sure that the urinary tract infection is adequately treated and to have her lower extremity evaluated for any further imaging that needs to be done.] Dragon Disclaimer: Dragon Disclaimer: This electronic medical record was generated, in whole or in part, using a voice recognition dictation system. Departure Departure Impression: Primary Impression: Weakness Additional Impressions: Osteomyelitis Qualified Codes: M86.9 - Osteomyelitis, unspecified UTI (urinary tract infection) Qualified Codes: N30.00 - Acute cystitis without hematuria Disposition: ADMITTED INPATIENT Admitting Physician: MIL Condition: STABLE Referrals: LISA CALHOUN (PCP) Justicifation of Admission Dx: Justifications for Admission: Justification of Admission Dx: Yes CHF: Cardiac Arrhythmias Altered Mental Status: Altered Mental Status ABILIO JACKSON DO Feb 18, 2020 06:11
--- NOTE | 2020-02-18 06:22 | EKG ---
[facility] [address] [place] [address] Test Date: 2020-02-17 Test Time: 08:29:37 Pat Name: BRYANT LOCKHART Department: Room: Gender: F Prepleater: : 1940 Requested By: ABILIO JACKSON Order Number: [id number] Reading MD: Measurements Intervals [place] Rate: 77 P: 33 RI: 170 QRS: -20 QRSD: 94 T: 66 QT: 410 QTc: 466 Interpretive Statements SINUS RHYTHM LEFTWARD AXIS NO SPECIFIC ECG ABNORMALITIES RI6.02 No previous ECG available for comparison
[2020-02-18 06:50] VITALS: BP 138/53
[2020-02-18] MEDS: THYROID,PORK 60 MG TABLET PO SCH (07:39)
[2020-02-18] MEDS: LACTOBACILLUS RHAMNOSUS GG 1 CAPSULE. PO SCH ×2 (07:39→20:35)
[2020-02-18] MEDS: CALCIUM ACETATE 667 MG CAPSULE PO SCH ×3 (07:39→17:00)
[2020-02-18] MEDS: FOLIC/VIT B COMP W-C (RENAL) TABLET. PO SCH (07:39)
[2020-02-18] MEDS: METOPROLOL TART IMMED RELEASE 50 MG TABLET. PO SCH ×2 (07:40→20:36)
[2020-02-18] MEDS: INSULIN LISPRO 300 UNITS/3 ML VIAL. SQ SCH ×3 (07:48→16:30)
--- NOTE | 2020-02-18 08:28 | PDOC ---
PROGRESS NOTES Chief Complaint Chief Complaint A/P: Acute encephalopathy - in patient with h/o MDRO UTI and recent bone culture positive and elevated blood pressure looks to be toxic and metabolic encephalopathy HTN urgency - will restart meds. PRN hydralazine ESRD oN HD - consult nephrology Paroxysmal Afib - on warfarin and amiodarone Acute encephalopathy - likely UTI Left foot diabetic infection, osteomyelitis based on op-report with purulent drainage and previous wound infection, chronic callus on plantar foot, Surface swab cultures polymicrobial organism Cultures positive for Bacteroides, Proteus, E. coli, enterococcus 12/24 Status post incision and drainage December 29, 2019 - bone cult 12/28 with Enterococcus Avium Diabetes mellitus - sliding scale + lantus PVD s/p angioplasty 12/26 on Left polpliteal - post tib with chronic total occlusion Thrombocytopenia - will monitor. Previously noted in July 2019, resolved since Anemia - of chronic renal disease, macrocytosis noted, B12 in 500s Hypothyroidism - with elevated TSH 13, will cont levothyroxine History of Present Illness History of Present Illness Ms Beach is a 79yo F w/ PMHx ESRD on HD, coronary artery disease and paroxysmal atrial fibrillation presented with feeling badly. She was recently seen a month ago for LLE infection with osteomyelitis and has significant weakness and confusion now. Confused for the past few days, so weak now is unable to ambulate. CT head negative for acute abnormality. Labs consistent with ESRD, weak, pruritic Admitted for further treatment. Consults: Nephrology, Infectious diseases Back to her normal mental status today. Labs consistent with ESRD. Blood culture negative so far. No SOB or CP. Left foot wound still deep, slowly healing, concerning for bone involvement. Antibiotics changed to merrem for now. Needs to change back to cefepime and vancomycin for 2 weeks due to slow wound healing and f/u with ID and vascular surgery. She is itching, asking for benadryl. Vitals Vitals Vital Signs Date Time Temp Pulse Resp B/P (MAP) Pulse Ox O2 Delivery O2 Flow Rate FiO2 02/18/20 08:00 Room Air 02/18/20 07:40 64 138/53 02/18/20 06:50 97.9 18 97 97.9 Physical Exam Physical Exam Patient is comfortable not in distress. HEENT normal Neck supple Lungs clear Heart S1-S2 regular Abdomen soft nontender no organomegaly Extremities no edema or cyanosis Skin examination is unremarkable Foot has a wound VAC that was not open today it will be changed tomorrow I will look at it then LUBE MAN no focal deficit Lungs: Clear Labs LABS Laboratory Tests Test 02/17/20 09:00 02/17/20 09:25 02/17/20 11:25 02/17/20 16:34 Urine Collection Type U cath Urine Color Yellow Urine Clarity Cloudy Urine pH 7.5 (<5.0-8.0) Urine Specific [place] 1.010 (1.000-1.030) Urine Protein >=300 mg/dL (NEG-TRACE) Urine Glucose (UA) 100 mg/dL (NEG) Urine Ketones (Stick) Negative mg/dL (NEG) Urine Blood Large (NEG) Urine Nitrite Negative (NEG) Urine Bilirubin Negative (NEG) Urine Urobilinogen Dipstick 0.2 mg/dL (0.2 mg/dL) Urine Leukocyte Esterase Large (NEG) Urine RBC >40 /HPF (0-2) Urine WBC Tntc /HPF (0-4) Urine Squamous Epithelial Cells Mod /LPF Urine Bacteria 0 /HPF (0-FEW) White Blood Count 5.7 x10^3/uL (4.0-11.0) Red Blood Count 2.84 x10^6/uL (3.50-5.40) Hemoglobin 10.0 g/dL (12.0-15.5) Hematocrit 29.6 % (36.0-47.0) Mean Corpuscular Volume 104 fL (79-100) Mean Corpuscular Hemoglobin 35 pg (25-35) Mean Corpuscular Hemoglobin Concent 34 g/dL (31-37) Red Cell Distribution Width 17.5 % (11.5-14.5) Platelet Count 115 x10^3/uL (140-400) Neutrophils (%) (Auto) 62 % (31-73) Lymphocytes (%) (Auto) 21 % (24-48) Monocytes (%) (Auto) 10 % (0-9) Eosinophils (%) (Auto) 6 % (0-3) Basophils (%) (Auto) 1 % (0-3) Neutrophils # (Auto) 3.5 x10^3/uL (1.8-7.7) Lymphocytes # (Auto) 1.2 x10^3/uL (1.0-4.8) Monocytes # (Auto) 0.6 x10^3/uL (0.0-1.1) Eosinophils # (Auto) 0.3 x10^3/uL (0.0-0.7) Basophils # (Auto) 0.1 x10^3/uL (0.0-0.2) Prothrombin Time 20.0 SEC (11.7-14.0) Prothromb Time International Ratio 1.7 (0.8-1.1) Sodium Level 141 mmol/L (136-145) Potassium Level 4.2 mmol/L (3.5-5.1) Chloride Level 100 mmol/L (98-107) Carbon Dioxide Level 29 mmol/L (21-32) Anion Gap 12 (6-14) Blood Urea Nitrogen 55 mg/dL (7-20) Creatinine 6.8 mg/dL (0.6-1.0) Estimated GFR (Cockcroft-Gault) 5.9 BUN/Creatinine Ratio 8 (6-20) Glucose Level 202 mg/dL (70-99) Calcium Level 8.4 mg/dL (8.5-10.1) Magnesium Level 2.3 mg/dL (1.8-2.4) Total Bilirubin 0.4 mg/dL (0.2-1.0) Aspartate Amino Transf (AST/SGOT) 34 U/L (15-37) Alanine Aminotransferase (ALT/SGPT) 44 U/L (14-59) Alkaline Phosphatase 130 U/L (46-116) Troponin I Quantitative < 0.017 ng/mL (0.000-0.055) Total Protein 7.2 g/dL (6.4-8.2) Albumin 2.7 g/dL (3.4-5.0) Albumin/Globulin Ratio 0.6 (1.0-1.7) Glucose (Fingerstick) 157 mg/dL (70-99) 180 mg/dL (70-99) Test 02/17/20 20:19 02/18/20 04:25 02/18/20 06:59 Glucose (Fingerstick) 171 mg/dL (70-99) 135 mg/dL (70-99) White Blood Count 5.3 x10^3/uL (4.0-11.0) Red Blood Count 3.03 x10^6/uL (3.50-5.40) Hemoglobin 10.7 g/dL (12.0-15.5) Hematocrit 31.9 % (36.0-47.0) Mean Corpuscular Volume 105 fL (79-100) Mean Corpuscular Hemoglobin 35 pg (25-35) Mean Corpuscular Hemoglobin Concent 34 g/dL (31-37) Red Cell Distribution Width 17.6 % (11.5-14.5) Platelet Count 108 x10^3/uL (140-400) Neutrophils (%) (Auto) 63 % (31-73) Lymphocytes (%) (Auto) 23 % (24-48) Monocytes (%) (Auto) 9 % (0-9) Eosinophils (%) (Auto) 5 % (0-3) Basophils (%) (Auto) 1 % (0-3) Neutrophils # (Auto) 3.3 x10^3/uL (1.8-7.7) Lymphocytes # (Auto) 1.2 x10^3/uL (1.0-4.8) Monocytes # (Auto) 0.5 x10^3/uL (0.0-1.1) Eosinophils # (Auto) 0.3 x10^3/uL (0.0-0.7) Basophils # (Auto) 0.0 x10^3/uL (0.0-0.2) Prothrombin Time 19.6 SEC (11.7-14.0) Prothromb Time International Ratio 1.7 (0.8-1.1) Sodium Level 141 mmol/L (136-145) Potassium Level 4.4 mmol/L (3.5-5.1) Chloride Level 101 mmol/L (98-107) Carbon Dioxide Level 27 mmol/L (21-32) Anion Gap 13 (6-14) Blood Urea Nitrogen 63 mg/dL (7-20) Creatinine 7.8 mg/dL (0.6-1.0) Estimated GFR (Cockcroft-Gault) 5.0 BUN/Creatinine Ratio 8 (6-20) Glucose Level 138 mg/dL (70-99) Calcium Level 8.7 mg/dL (8.5-10.1) Total Bilirubin 0.4 mg/dL (0.2-1.0) Aspartate Amino Transf (AST/SGOT) 36 U/L (15-37) Alanine Aminotransferase (ALT/SGPT) 45 U/L (14-59) Alkaline Phosphatase 133 U/L (46-116) Total Protein 7.4 g/dL (6.4-8.2) Albumin 2.6 g/dL (3.4-5.0) Albumin/Globulin Ratio 0.5 (1.0-1.7) Assessment and Plan Assessmemt and Plan Problems Medical Problems: (1) UTI (urinary tract infection) Status: Acute (2) Weakness Status: Acute Comment Review of Relevant I have reviewed the following items anastasiya (where applicable) has been applied. Labs Laboratory Tests Test 02/17/20 09:00 02/17/20 09:25 02/17/20 11:25 02/17/20 16:34 Urine Collection Type U cath Urine Color Yellow Urine Clarity Cloudy Urine pH 7.5 (<5.0-8.0) Urine Specific [place] 1.010 (1.000-1.030) Urine Protein >=300 mg/dL (NEG-TRACE) Urine Glucose (UA) 100 mg/dL (NEG) Urine Ketones (Stick) Negative mg/dL (NEG) Urine Blood Large (NEG) Urine Nitrite Negative (NEG) Urine Bilirubin Negative (NEG) Urine Urobilinogen Dipstick 0.2 mg/dL (0.2 mg/dL) Urine Leukocyte Esterase Large (NEG) Urine RBC >40 /HPF (0-2) Urine WBC Tntc /HPF (0-4) Urine Squamous Epithelial Cells Mod /LPF Urine Bacteria 0 /HPF (0-FEW) White Blood Count 5.7 x10^3/uL (4.0-11.0) Red Blood Count 2.84 x10^6/uL (3.50-5.40) Hemoglobin 10.0 g/dL (12.0-15.5) Hematocrit 29.6 % (36.0-47.0) Mean Corpuscular Volume 104 fL (79-100) Mean Corpuscular Hemoglobin 35 pg (25-35) Mean Corpuscular Hemoglobin Concent 34 g/dL (31-37) Red Cell Distribution Width 17.5 % (11.5-14.5) Platelet Count 115 x10^3/uL (140-400) Neutrophils (%) (Auto) 62 % (31-73) Lymphocytes (%) (Auto) 21 % (24-48) Monocytes (%) (Auto) 10 % (0-9) Eosinophils (%) (Auto) 6 % (0-3) Basophils (%) (Auto) 1 % (0-3) Neutrophils # (Auto) 3.5 x10^3/uL (1.8-7.7) Lymphocytes # (Auto) 1.2 x10^3/uL (1.0-4.8) Monocytes # (Auto) 0.6 x10^3/uL (0.0-1.1) Eosinophils # (Auto) 0.3 x10^3/uL (0.0-0.7) Basophils # (Auto) 0.1 x10^3/uL (0.0-0.2) Prothrombin Time 20.0 SEC (11.7-14.0) Prothromb Time International Ratio 1.7 (0.8-1.1) Sodium Level 141 mmol/L (136-145) Potassium Level 4.2 mmol/L (3.5-5.1) Chloride Level 100 mmol/L (98-107) Carbon Dioxide Level 29 mmol/L (21-32) Anion Gap 12 (6-14) Blood Urea Nitrogen 55 mg/dL (7-20) Creatinine 6.8 mg/dL (0.6-1.0) Estimated GFR (Cockcroft-Gault) 5.9 BUN/Creatinine Ratio 8 (6-20) Glucose Level 202 mg/dL (70-99) Calcium Level 8.4 mg/dL (8.5-10.1) Magnesium Level 2.3 mg/dL (1.8-2.4) Total Bilirubin 0.4 mg/dL (0.2-1.0) Aspartate Amino Transf (AST/SGOT) 34 U/L (15-37) Alanine Aminotransferase (ALT/SGPT) 44 U/L (14-59) Alkaline Phosphatase 130 U/L (46-116) Troponin I Quantitative < 0.017 ng/mL (0.000-0.055) Total Protein 7.2 g/dL (6.4-8.2) Albumin 2.7 g/dL (3.4-5.0) Albumin/Globulin Ratio 0.6 (1.0-1.7) Glucose (Fingerstick) 157 mg/dL (70-99) 180 mg/dL (70-99) Test 02/17/20 20:19 02/18/20 04:25 02/18/20 06:59 Glucose (Fingerstick) 171 mg/dL (70-99) 135 mg/dL (70-99) White Blood Count 5.3 x10^3/uL (4.0-11.0) Red Blood Count 3.03 x10^6/uL (3.50-5.40) Hemoglobin 10.7 g/dL (12.0-15.5) Hematocrit 31.9 % (36.0-47.0) Mean Corpuscular Volume 105 fL (79-100) Mean Corpuscular Hemoglobin 35 pg (25-35) Mean Corpuscular Hemoglobin Concent 34 g/dL (31-37) Red Cell Distribution Width 17.6 % (11.5-14.5) Platelet Count 108 x10^3/uL (140-400) Neutrophils (%) (Auto) 63 % (31-73) Lymphocytes (%) (Auto) 23 % (24-48) Monocytes (%) (Auto) 9 % (0-9) Eosinophils (%) (Auto) 5 % (0-3) Basophils (%) (Auto) 1 % (0-3) Neutrophils # (Auto) 3.3 x10^3/uL (1.8-7.7) Lymphocytes # (Auto) 1.2 x10^3/uL (1.0-4.8) Monocytes # (Auto) 0.5 x10^3/uL (0.0-1.1) Eosinophils # (Auto) 0.3 x10^3/uL (0.0-0.7) Basophils # (Auto) 0.0 x10^3/uL (0.0-0.2) Prothrombin Time 19.6 SEC (11.7-14.0) Prothromb Time International Ratio 1.7 (0.8-1.1) Sodium Level 141 mmol/L (136-145) Potassium Level 4.4 mmol/L (3.5-5.1) Chloride Level 101 mmol/L (98-107) Carbon Dioxide Level 27 mmol/L (21-32) Anion Gap 13 (6-14) Blood Urea Nitrogen 63 mg/dL (7-20) Creatinine 7.8 mg/dL (0.6-1.0) Estimated GFR (Cockcroft-Gault) 5.0 BUN/Creatinine Ratio 8 (6-20) Glucose Level 138 mg/dL (70-99) Calcium Level 8.7 mg/dL (8.5-10.1) Total Bilirubin 0.4 mg/dL (0.2-1.0) Aspartate Amino Transf (AST/SGOT) 36 U/L (15-37) Alanine Aminotransferase (ALT/SGPT) 45 U/L (14-59) Alkaline Phosphatase 133 U/L (46-116) Total Protein 7.4 g/dL (6.4-8.2) Albumin 2.6 g/dL (3.4-5.0) Albumin/Globulin Ratio 0.5 (1.0-1.7) Laboratory Tests Test 02/17/20 09:00 02/17/20 09:25 02/17/20 11:25 02/17/20 16:34 Urine Collection Type U cath Urine Color Yellow Urine Clarity Cloudy Urine pH 7.5 (<5.0-8.0) Urine Specific [place] 1.010 (1.000-1.030) Urine Protein >=300 mg/dL (NEG-TRACE) Urine Glucose (UA) 100 mg/dL (NEG) Urine Ketones (Stick) Negative mg/dL (NEG) Urine Blood Large (NEG) Urine Nitrite Negative (NEG) Urine Bilirubin Negative (NEG) Urine Urobilinogen Dipstick 0.2 mg/dL (0.2 mg/dL) Urine Leukocyte Esterase Large (NEG) Urine RBC >40 /HPF (0-2) Urine WBC Tntc /HPF (0-4) Urine Squamous Epithelial Cells Mod /LPF Urine Bacteria 0 /HPF (0-FEW) White Blood Count 5.7 x10^3/uL (4.0-11.0) Red Blood Count 2.84 x10^6/uL (3.50-5.40) Hemoglobin 10.0 g/dL (12.0-15.5) Hematocrit 29.6 % (36.0-47.0) Mean Corpuscular Volume 104 fL (79-100) Mean Corpuscular Hemoglobin 35 pg (25-35) Mean Corpuscular Hemoglobin Concent 34 g/dL (31-37) Red Cell Distribution Width 17.5 % (11.5-14.5) Platelet Count 115 x10^3/uL (140-400) Neutrophils (%) (Auto) 62 % (31-73) Lymphocytes (%) (Auto) 21 % (24-48) Monocytes (%) (Auto) 10 % (0-9) Eosinophils (%) (Auto) 6 % (0-3) Basophils (%) (Auto) 1 % (0-3) Neutrophils # (Auto) 3.5 x10^3/uL (1.8-7.7) Lymphocytes # (Auto) 1.2 x10^3/uL (1.0-4.8) Monocytes # (Auto) 0.6 x10^3/uL (0.0-1.1) Eosinophils # (Auto) 0.3 x10^3/uL (0.0-0.7) Basophils # (Auto) 0.1 x10^3/uL (0.0-0.2) Prothrombin Time 20.0 SEC (11.7-14.0) Prothromb Time International Ratio 1.7 (0.8-1.1) Sodium Level 141 mmol/L (136-145) Potassium Level 4.2 mmol/L (3.5-5.1) Chloride Level 100 mmol/L (98-107) Carbon Dioxide Level 29 mmol/L (21-32) Anion Gap 12 (6-14) Blood Urea Nitrogen 55 mg/dL (7-20) Creatinine 6.8 mg/dL (0.6-1.0) Estimated GFR (Cockcroft-Gault) 5.9 BUN/Creatinine Ratio 8 (6-20) Glucose Level 202 mg/dL (70-99) Calcium Level 8.4 mg/dL (8.5-10.1) Magnesium Level 2.3 mg/dL (1.8-2.4) Total Bilirubin 0.4 mg/dL (0.2-1.0) Aspartate Amino Transf (AST/SGOT) 34 U/L (15-37) Alanine Aminotransferase (ALT/SGPT) 44 U/L (14-59) Alkaline Phosphatase 130 U/L (46-116) Troponin I Quantitative < 0.017 ng/mL (0.000-0.055) Total Protein 7.2 g/dL (6.4-8.2) Albumin 2.7 g/dL (3.4-5.0) Albumin/Globulin Ratio 0.6 (1.0-1.7) Glucose (Fingerstick) 157 mg/dL (70-99) 180 mg/dL (70-99) Test 02/17/20 20:19 02/18/20 04:25 02/18/20 06:59 Glucose (Fingerstick) 171 mg/dL (70-99) 135 mg/dL (70-99) White Blood Count 5.3 x10^3/uL (4.0-11.0) Red Blood Count 3.03 x10^6/uL (3.50-5.40) Hemoglobin 10.7 g/dL (12.0-15.5) Hematocrit 31.9 % (36.0-47.0) Mean Corpuscular Volume 105 fL (79-100) Mean Corpuscular Hemoglobin 35 pg (25-35) Mean Corpuscular Hemoglobin Concent 34 g/dL (31-37) Red Cell Distribution Width 17.6 % (11.5-14.5) Platelet Count 108 x10^3/uL (140-400) Neutrophils (%) (Auto) 63 % (31-73) Lymphocytes (%) (Auto) 23 % (24-48) Monocytes (%) (Auto) 9 % (0-9) Eosinophils (%) (Auto) 5 % (0-3) Basophils (%) (Auto) 1 % (0-3) Neutrophils # (Auto) 3.3 x10^3/uL (1.8-7.7) Lymphocytes # (Auto) 1.2 x10^3/uL (1.0-4.8) Monocytes # (Auto) 0.5 x10^3/uL (0.0-1.1) Eosinophils # (Auto) 0.3 x10^3/uL (0.0-0.7) Basophils # (Auto) 0.0 x10^3/uL (0.0-0.2) Prothrombin Time 19.6 SEC (11.7-14.0) Prothromb Time International Ratio 1.7 (0.8-1.1) Sodium Level 141 mmol/L (136-145) Potassium Level 4.4 mmol/L (3.5-5.1) Chloride Level 101 mmol/L (98-107) Carbon Dioxide Level 27 mmol/L (21-32) Anion Gap 13 (6-14) Blood Urea Nitrogen 63 mg/dL (7-20) Creatinine 7.8 mg/dL (0.6-1.0) Estimated GFR (Cockcroft-Gault) 5.0 BUN/Creatinine Ratio 8 (6-20) Glucose Level 138 mg/dL (70-99) Calcium Level 8.7 mg/dL (8.5-10.1) Total Bilirubin 0.4 mg/dL (0.2-1.0) Aspartate Amino Transf (AST/SGOT) 36 U/L (15-37) Alanine Aminotransferase (ALT/SGPT) 45 U/L (14-59) Alkaline Phosphatase 133 U/L (46-116) Total Protein 7.4 g/dL (6.4-8.2) Albumin 2.6 g/dL (3.4-5.0) Albumin/Globulin Ratio 0.5 (1.0-1.7) Medications Current Medications Diphenhydramine HCl (Benadryl) 25 mg 1X ONCE IVP Last administered on 02/17/20at 09:11; Start 02/17/20 at 08:30; Stop 02/17/20 at 08:31; Status DC Ceftriaxone Sodium (Rocephin) 1 gm 1X ONCE IVP Last administered on 02/17/20at 10:41; Start 02/17/20 at 10:30; Stop 02/17/20 at 10:31; Status DC Ondansetron HCl (Zofran) 4 mg PRN Q8HRS PRN IV NAUSEA/VOMITING; Start 02/17/20 at 10:30; Stop 02/18/20 at 10:29 Fentanyl Citrate (Fentanyl 2ml Vial) 50 mcg PRN Q1HR PRN IV PAIN; Start 02/17/20 at 10:30; Stop 02/18/20 at 10:29 Acetaminophen (Tylenol) 650 mg PRN Q4HRS PRN PO FEVER > 100.3'F; Start 02/17/20 at 10:30; Stop 02/18/20 at 10:29 Thyroid ([place] Thyroid) 30 mg DAILY PO ; Start 02/17/20 at 12:00 Acetaminophen/ Hydrocodone Bitart (Lortab 7.5/325) 1 tab PRN Q4HRS PRN PO PAIN MILD TO MODERATE; Start 02/17/20 at 12:00 Lactobacillus Rhamnosus (Culturelle) 1 cap BID PO Last administered on 02/18/20a t 07:39; Start 02/17/20 at 21:00 Metoprolol Tartrate (Lopressor) 50 mg BID PO Last administered on 02/18/20at 07:40; Start 02/17/20 at 13:00 Polyethylene Glycol (miraLAX PACKET) 17 gm PRN DAILY PRN PO CONSTIPATION; Start 02/17/20 at 12:00 Simvastatin (Zocor) 40 mg QHS PO Last administered on 02/17/20at 21:38; Start 02/17/20 at 21:00 Warfarin Sodium (Coumadin) 3 mg 1X WARF ONCE PO Last administered on 02/17/20at 16:30; Start 02/17/20 at 16:00; Stop 02/17/20 at 16:01; Status DC Calcium Acetate (Phoslo) 1,334 mg TIDWMEALS PO Last administered on 02/18/20at 07:39; Start 02/17/20 at 12:00 Insulin Human Lispro (HumaLOG) 6 units TIDAC SQ Last administered on 02/18/20at 07:48; Start 02/17/20 at 17:00 Insulin Glargine (Lantus Syringe) 6 unit QHS SQ ; Start 02/17/20 at 21:00 Non-Formulary Medication (Thyroid,Pork ([place] Thyroid)) 1 tab DAILY PO ; Start 02/18/20 at 09:00; Stop 02/17/20 at 12:13; Status DC Vitamin B Complex/ Vitamin C (Funmi-[place]) 1 tab DAILY PO Last administered on 02/18/20at 07:39; Start 02/17/20 at 13:00 Warfarin Sodium (Coumadin Per Pharmacy) 1 each PRN DAILY PRN MC SEE COMMENTS; Start 02/17/20 at 12:15 Vancomycin HCl (Vanco Per Pharmacy) 1 each PRN DAILY PRN MC SEE COMMENTS Last administered on 02/17/20at 20:49; Start 02/17/20 at 13:00 Cefepime HCl (Maxipime) 1 gm Q24H IVP Last administered on 02/17/20at 13:39; Start 02/17/20 at 14:00 Vancomycin HCl 1.5 gm/Sodium Chloride 500 ml @ 250 mls/hr 1X ONCE IV Last administered on 02/17/20at 13:39; Start 02/17/20 at 13:30; Stop 02/17/20 at 15:29; Status DC Vancomycin HCl (Vancomycin Random Level) 1 each 1X ONCE MC ; Start 02/19/20 at 14:00; Stop 02/19/20 at 14:01 Diphenhydramine HCl (Benadryl) 25 mg PRN Q6HRS PRN PO ITCHING Last administered on 02/17/20at 22:37; Start 02/17/20 at 16:30 Active Scripts Active Levothyroxine Sodium 75 Mcg Tablet 75 Mcg PO DAILY06 90 Days Antifungal Cream (Miconazole Nitrate) 14 Gm Cream..g. 1 Scot[place] TP BID 7 Days Vancomycin HCl 250 Mg Vial 500 Mg IV MWF 14 Days [Cefepime Hcl] 1 GM Vial 3 Gm IVP Q24H 14 Days Culturelle (Lactobacillus Rhamnosus Gg) 1 Each Cap.sprink 1 Cap PO BID 30 Days Polyethylene Glycol 3350 17 Gm Powd.pack 17 Gm PO PRN DAILY PRN 30 Days Amiodarone Hcl 200 Mg Tablet 200 Mg PO DAILY 30 Days Coumadin (Warfarin Sodium) 3 Mg Tablet 3 Mg PO 1X WARF 30 Days Hydrocodone-Apap 7.5-325 (Hydrocodone Bit/Acetaminophen) 1 Tab Tablet 1 Tab PO PRN Q4HRS PRN 6 Days Lantus Solostar (Insulin Glargine,Hum.rec.anlog) 100 Unit/1 Ml Insuln.pen 10 Unit SQ QHS Reported Lantus Solostar (Insulin Glargine,Hum.rec.anlog) 100 Unit/1 Ml Insuln.pen 6 Unit SQ HS [place] Thyroid (Thyroid,Pork) 30 Mg Tablet 1 Tab PO DAILY Simvastatin 40 Mg Tablet 1 Tab PO QHS Metoprolol Tartrate 50 Mg Tablet 1 Tab PO BID Funmi-Hannah Rx Tablet (Vit B Cmplx 3/Fa/Vit C/Biotin) 1 Each Tablet 1 Each PO DAILY Novolog (Insulin Aspart) 100 Unit/1 Ml Cartridge 6 Unit SQ TIDAC Calcium Acetate 667 Mg Tablet 2 Cap PO TIDAC Vitals/I & O Vital Sign - Last 24 Hours 02/17/20 02/17/20 02/17/2020 09:00 09:30 10:00 10:30 Pulse 80 82 68 70 Resp 16 18 18 18 Pulse Ox 99 97 99 98 02/17/20 02/17/20 02/17/20 02/17/20 11:35 14:27 15:00 19:00 Temp 97.9 97.9 97.7 97.9 97.9 97.7 Pulse 75 68 78 Resp 20 20 18 B/P (MAP) 160/62 (94) 122/43 (69) 125/44 (71) Pulse Ox 93 95 99 O2 Delivery Room Air Room Air Room Air Room Air 02/17/20 02/17/20 02/17/20 02/18/20 19:40 21:38 23:00 03:00 Temp 98.1 97.9 98.1 97.9 Pulse 78 74 67 Resp 18 18 B/P (MAP) 125/44 135/47 (76) 127/43 (71) Pulse Ox 95 96 O2 Delivery Room Air Room Air Room Air 02/18/20 02/18/20 02/18/20 06:50 07:40 08:00 Temp 97.9 97.9 Pulse 64 64 Resp 18 B/P (MAP) 138/53 (81) 138/53 Pulse Ox 97 O2 Delivery Room Air Room Air Intake and Output 02/17/20 02/17/20 02/18/20 15:00 23:00 07:00 Intake Total 260 ml 180 ml Balance 260 ml 180 ml ITA MOSQUEDA MD Feb 18, 2020 08:28
--- NOTE | 2020-02-18 08:43 | NUR ---
TADEO following. Discussed with RN, pt from home, room air. Pt does dialysis at [facility] (ph: [phone]), TADEO verified with pt's dialysis clinic that pt does NOT need a COVID test to return to dialysis, unless pt is showing signs or symptoms of COVID-19. Pt discharged with [facility] last admission and IV abx given at dialysis. TADEO will continue to follow. Addendum: 02/20/20 at 1617 by MARITA PIEDRA TADEO notified [facility] of pt discharge and continuation of IV abx.
[2020-02-18] MEDS ORDERED: THYROID PORK PO SCH (09:00)
--- NOTE | 2020-02-18 09:07 | PDOC ---
Infectious Disease Note Subjective Subjective Ms. eller is here because of weakness for 1 day. She says she just did not feel well. There was no fever there was no nausea vomiting diarrhea chest pain shortness of breath ROS ROS No nausea vomiting diarrhea chest pain shortness of breath Vital Sign Vital Signs Vital Signs Date Time Temp Pulse Resp B/P (MAP) Pulse Ox O2 Delivery O2 Flow Rate FiO2 02/18/20 08:00 Room Air 02/18/20 07:40 64 138/53 02/18/20 06:50 97.9 18 97 97.9 Physical Exam PHYSICAL EXAM Patient is comfortable not in distress. HEENT normal Neck supple Lungs clear Heart S1-S2 regular Abdomen soft nontender no organomegaly Extremities no edema or cyanosis Skin examination is unremarkable Foot has a wound small opening but deep to the bone no surrounding erythema has not improved since now she is on at least 4 weeks of IV antibiotic [employer] no focal deficit Labs Lab Laboratory Tests Test 02/17/20 09:25 02/17/20 11:25 02/17/20 16:34 02/17/20 20:19 White Blood Count 5.7 x10^3/uL (4.0-11.0) Red Blood Count 2.84 x10^6/uL (3.50-5.40) Hemoglobin 10.0 g/dL (12.0-15.5) Hematocrit 29.6 % (36.0-47.0) Mean Corpuscular Volume 104 fL (79-100) Mean Corpuscular Hemoglobin 35 pg (25-35) Mean Corpuscular Hemoglobin Concent 34 g/dL (31-37) Red Cell Distribution Width 17.5 % (11.5-14.5) Platelet Count 115 x10^3/uL (140-400) Neutrophils (%) (Auto) 62 % (31-73) Lymphocytes (%) (Auto) 21 % (24-48) Monocytes (%) (Auto) 10 % (0-9) Eosinophils (%) (Auto) 6 % (0-3) Basophils (%) (Auto) 1 % (0-3) Neutrophils # (Auto) 3.5 x10^3/uL (1.8-7.7) Lymphocytes # (Auto) 1.2 x10^3/uL (1.0-4.8) Monocytes # (Auto) 0.6 x10^3/uL (0.0-1.1) Eosinophils # (Auto) 0.3 x10^3/uL (0.0-0.7) Basophils # (Auto) 0.1 x10^3/uL (0.0-0.2) Prothrombin Time 20.0 SEC (11.7-14.0) Prothromb Time International Ratio 1.7 (0.8-1.1) Sodium Level 141 mmol/L (136-145) Potassium Level 4.2 mmol/L (3.5-5.1) Chloride Level 100 mmol/L (98-107) Carbon Dioxide Level 29 mmol/L (21-32) Anion Gap 12 (6-14) Blood Urea Nitrogen 55 mg/dL (7-20) Creatinine 6.8 mg/dL (0.6-1.0) Estimated GFR (Cockcroft-Gault) 5.9 BUN/Creatinine Ratio 8 (6-20) Glucose Level 202 mg/dL (70-99) Calcium Level 8.4 mg/dL (8.5-10.1) Magnesium Level 2.3 mg/dL (1.8-2.4) Total Bilirubin 0.4 mg/dL (0.2-1.0) Aspartate Amino Transf (AST/SGOT) 34 U/L (15-37) Alanine Aminotransferase (ALT/SGPT) 44 U/L (14-59) Alkaline Phosphatase 130 U/L (46-116) Troponin I Quantitative < 0.017 ng/mL (0.000-0.055) Total Protein 7.2 g/dL (6.4-8.2) Albumin 2.7 g/dL (3.4-5.0) Albumin/Globulin Ratio 0.6 (1.0-1.7) Glucose (Fingerstick) 157 mg/dL (70-99) 180 mg/dL (70-99) 171 mg/dL (70-99) Test 02/18/20 04:25 02/18/20 06:59 White Blood Count 5.3 x10^3/uL (4.0-11.0) Red Blood Count 3.03 x10^6/uL (3.50-5.40) Hemoglobin 10.7 g/dL (12.0-15.5) Hematocrit 31.9 % (36.0-47.0) Mean Corpuscular Volume 105 fL (79-100) Mean Corpuscular Hemoglobin 35 pg (25-35) Mean Corpuscular Hemoglobin Concent 34 g/dL (31-37) Red Cell Distribution Width 17.6 % (11.5-14.5) Platelet Count 108 x10^3/uL (140-400) Neutrophils (%) (Auto) 63 % (31-73) Lymphocytes (%) (Auto) 23 % (24-48) Monocytes (%) (Auto) 9 % (0-9) Eosinophils (%) (Auto) 5 % (0-3) Basophils (%) (Auto) 1 % (0-3) Neutrophils # (Auto) 3.3 x10^3/uL (1.8-7.7) Lymphocytes # (Auto) 1.2 x10^3/uL (1.0-4.8) Monocytes # (Auto) 0.5 x10^3/uL (0.0-1.1) Eosinophils # (Auto) 0.3 x10^3/uL (0.0-0.7) Basophils # (Auto) 0.0 x10^3/uL (0.0-0.2) Prothrombin Time 19.6 SEC (11.7-14.0) Prothromb Time International Ratio 1.7 (0.8-1.1) Sodium Level 141 mmol/L (136-145) Potassium Level 4.4 mmol/L (3.5-5.1) Chloride Level 101 mmol/L (98-107) Carbon Dioxide Level 27 mmol/L (21-32) Anion Gap 13 (6-14) Blood Urea Nitrogen 63 mg/dL (7-20) Creatinine 7.8 mg/dL (0.6-1.0) Estimated GFR (Cockcroft-Gault) 5.0 BUN/Creatinine Ratio 8 (6-20) Glucose Level 138 mg/dL (70-99) Calcium Level 8.7 mg/dL (8.5-10.1) Total Bilirubin 0.4 mg/dL (0.2-1.0) Aspartate Amino Transf (AST/SGOT) 36 U/L (15-37) Alanine Aminotransferase (ALT/SGPT) 45 U/L (14-59) Alkaline Phosphatase 133 U/L (46-116) Total Protein 7.4 g/dL (6.4-8.2) Albumin 2.6 g/dL (3.4-5.0) Albumin/Globulin Ratio 0.5 (1.0-1.7) Glucose (Fingerstick) 135 mg/dL (70-99) Objective Assessment Questionable UTI/colonization Foot wound on antibiotics for now at least 4 weeks and still not improving probably will need resection End-stage renal disease on hemodialysis Plan Plan of Care Continue antibiotics through dialysis Continue wound VAC Vascular surgery consult for possible resection of infected bone ANA CRISTINA العلي MD Feb 18, 2020 09:07
[2020-02-18] MEDS: diphenhydrAMINE HCL 25 MG CAPSULE PO PRN (10:02)
[2020-02-18 10:42] VITALS: BP 130/52
[2020-02-18] MEDS ORDERED: MINERAL OIL/PETROLATUM TOPICAL CREAM 113GM JAR. TP PRN (11:15)
[2020-02-18] MEDS: VANCOMYCIN PER PHARMACY MC PRN (11:32)
--- NOTE | 2020-02-18 12:12 | NUR ---
Pharmacy Warfarin Dosing Note S:Pharmacy consulted to assist with anticoagulation therapy started with target INR: 2 -3 O:BRYANT LOCKHART is a 79 year old F with Atrial Fibrillation LABS: Last INR: 1.7 Last HGB: 10.7 Last HCT: 31.9 Last PLT: 108 Last dose of 3 mg given on 02/17/20 at 1630 Previous Regimen: Vitamin K given: Drug Interaction Changes: Ongoing Drug Interactions: A:INR of 1.7 is below desired range. Target range for this patient is: 2 -3 P: Warfarin dose: 4 mg Today at 1600 Bridge Therapy: Next INR due TOMORROW Pharmacy anticoagulation service will continue to follow. ROSANA GONSALVES [facility], 02/18/20 1211
--- NOTE | 2020-02-18 12:21 | PDOC ---
Renal-Progress Notes Subjective Notes Notes NO NEW COMPLAINTS History of Present Illness Hx of present illness STABLE Vitals Vitals Vital Signs Date Time Temp Pulse Resp B/P (MAP) Pulse Ox O2 Delivery O2 Flow Rate FiO2 02/18/20 10:42 97.8 68 17 130/52 (78) 95 Room Air 97.8 Weight Weight [ ] I.O. Intake and Output Intake and Output 02/18/20 07:00 Intake Total 440 ml Balance 440 ml Intake Oral 440 ml # Voids 3 Labs Labs Laboratory Tests Test 02/17/20 16:34 02/17/20 20:19 02/18/20 04:25 02/18/20 06:59 Glucose (Fingerstick) 180 mg/dL (70-99) 171 mg/dL (70-99) 135 mg/dL (70-99) White Blood Count 5.3 x10^3/uL (4.0-11.0) Red Blood Count 3.03 x10^6/uL (3.50-5.40) Hemoglobin 10.7 g/dL (12.0-15.5) Hematocrit 31.9 % (36.0-47.0) Mean Corpuscular Volume 105 fL (79-100) Mean Corpuscular Hemoglobin 35 pg (25-35) Mean Corpuscular Hemoglobin Concent 34 g/dL (31-37) Red Cell Distribution Width 17.6 % (11.5-14.5) Platelet Count 108 x10^3/uL (140-400) Neutrophils (%) (Auto) 63 % (31-73) Lymphocytes (%) (Auto) 23 % (24-48) Monocytes (%) (Auto) 9 % (0-9) Eosinophils (%) (Auto) 5 % (0-3) Basophils (%) (Auto) 1 % (0-3) Neutrophils # (Auto) 3.3 x10^3/uL (1.8-7.7) Lymphocytes # (Auto) 1.2 x10^3/uL (1.0-4.8) Monocytes # (Auto) 0.5 x10^3/uL (0.0-1.1) Eosinophils # (Auto) 0.3 x10^3/uL (0.0-0.7) Basophils # (Auto) 0.0 x10^3/uL (0.0-0.2) Prothrombin Time 19.6 SEC (11.7-14.0) Prothromb Time International Ratio 1.7 (0.8-1.1) Sodium Level 141 mmol/L (136-145) Potassium Level 4.4 mmol/L (3.5-5.1) Chloride Level 101 mmol/L (98-107) Carbon Dioxide Level 27 mmol/L (21-32) Anion Gap 13 (6-14) Blood Urea Nitrogen 63 mg/dL (7-20) Creatinine 7.8 mg/dL (0.6-1.0) Estimated GFR (Cockcroft-Gault) 5.0 BUN/Creatinine Ratio 8 (6-20) Glucose Level 138 mg/dL (70-99) Calcium Level 8.7 mg/dL (8.5-10.1) Total Bilirubin 0.4 mg/dL (0.2-1.0) Aspartate Amino Transf (AST/SGOT) 36 U/L (15-37) Alanine Aminotransferase (ALT/SGPT) 45 U/L (14-59) Alkaline Phosphatase 133 U/L (46-116) Total Protein 7.4 g/dL (6.4-8.2) Albumin 2.6 g/dL (3.4-5.0) Albumin/Globulin Ratio 0.5 (1.0-1.7) Test 02/18/20 11:12 Glucose (Fingerstick) 136 mg/dL (70-99) Micro Micro Microbiology 02/17/20 Urine Culture - Final, Complete Review of Systems Constitutional: yes: weakness, alert, other (CONFUSED) Ears/Nose/Throat: Yes: no symptom reported Eyes: Yes: no symptom reported Pulmonary: Yes no symptom reported Cardiovascular: Yes no symptom reported Gastrointestional: Yes: no symptom reported Genitourinary: Yes: no symptom reported Musculoskeletal: Yes: no symptom reported Skin: Yes no symptom reported Psychiatric/Neurological: Yes: no symptom reported Endocrine: Yes: no symptom reported Physical Exam General Appearance: no apparent distress Skin: warm Respiratory: bilateral CTA Heart: S1S2 Abdomen: soft, bowel sounds present Genitourinary: bladder flat Extremities: pulses present Neurology: alert, confused Assessment Assessment IMP ESRD-MWF ENCEPHALOPATHY DECONDITIONING DM II DM II RELATED L FOOT INFECTION AND OSTEO RECURRENT UTI HX OF AFIB PLAN ANTIBIOTICS HD TODAY UF TO DW USE LEFT ARM BB AVG BIJAN NEEDED ID EVAL AND TX MAY NEED PT WILL FOLLOW MELONIE GUAMAN MD Feb 18, 2020 12:21
--- NOTE | 2020-02-18 13:42 | PDOC2 ---
CONSULT Date of Consult Date of Consult DATE: 02/18/20 TIME: 13:20 Reason for Consult Reason for Consult: Nonhealing left plantar ulcer. Referring Physician Referring Physician: Dr. Bolanos Identification/Chief Complaint Chief Complaint Weakness and UTI Non-healing left foot wound Source Source: Chart review, Patient History of Present Illness Reason for Visit: This is a pleasant 79-year-old female who we have been asked to see for a non- healing left foot wound. She was admitted to the hospital with complaints of weakness and urinary tract infection. She has a history of diabetes, atrial fibrillation and end-stage renal disease on hemodialysis. Patient was last seen by us here on December 26, 2019, she underwent angiography with angioplasty of the left popliteal artery by Dr. Damon. She then had wound debridement by Dr. Bonner. She has been followed at the wound care center with wound vac therapy. She has also been receiving Intravenous antibiotics for at least four weeks. She denies any particular complaints or concerns right now. She denies any h istory of fever or chills. She denies any nausea or vomiting. She denies any chest pain or shortness of breath. She denies any lower extremity claudication or foot pain. She also reports that she does have sensation although I was able to probe deep into the wound without any discomfort. Nurse reports she does not have an offloading shoe and is not very compliant with heel touch only. Past Medical History Cardiovascular: CAD, HTN, Hyperlipidemia CENTRAL NERVOUS SYSTEM: Periperal neuropathy GI: Diverticulosis Heme/Onc: Anemia NOS, Cancer Hepatobiliary: No pertinent hx Psych: No pertinent hx Rheumatologic: No pertinent hx Infectious disease: Other Renal/: Chronic renal failure, UTI, Other Endocrine: Diabetes, Hyperparathyroidism Past Surgical History Past Surgical History: CABG, Cataract Removal, Colectomy, Other Family History Family History: Hypertension Social History No ALCOHOL: none Drugs: None Lives: with Family Current Problem List Problem List Problems Medical Problems: (1) UTI (urinary tract infection) Status: Acute (2) Weakness Status: Acute Current Medications Current Medications Current Medications Diphenhydramine HCl (Benadryl) 25 mg 1X ONCE IVP Last administered on 02/17/20at 09:11; Start 02/17/20 at 08:30; Stop 02/17/20 at 08:31; Status DC Ceftriaxone Sodium (Rocephin) 1 gm 1X ONCE IVP Last administered on 02/17/20at 10:41; Start 02/17/20 at 10:30; Stop 02/17/20 at 10:31; Status DC Ondansetron HCl (Zofran) 4 mg PRN Q8HRS PRN IV NAUSEA/VOMITING; Start 02/17/20 at 10:30; Stop 02/18/20 at 10:29; Status DC Fentanyl Citrate (Fentanyl 2ml Vial) 50 mcg PRN Q1HR PRN IV PAIN; Start 02/17/20 at 10:30; Stop 02/18/20 at 10:29; Status DC Acetaminophen (Tylenol) 650 mg PRN Q4HRS PRN PO FEVER > 100.3'F; Start 02/17/20 at 10:30; Stop 02/18/20 at 10:29; Status DC Thyroid ([place] Thyroid) 30 mg DAILY PO ; Start 02/17/20 at 12:00 Acetaminophen/ Hydrocodone Bitart (Lortab 7.5/325) 1 tab PRN Q4HRS PRN PO PAIN MILD TO MODERATE; Start 02/17/20 at 12:00 Lactobacillus Rhamnosus (Culturelle) 1 cap BID PO Last administered on 02/18/20at 07:39; Start 02/17/20 at 21:00 Metoprolol Tartrate (Lopressor) 50 mg BID PO Last administered on 02/18/20at 07:40; Start 02/17/20 at 13:00 Polyethylene Glycol (miraLAX PACKET) 17 gm PRN DAILY PRN PO CONSTIPATION; Start 02/17/20 at 12:00 Simvastatin (Zocor) 40 mg QHS PO Last administered on 02/17/20at 21:38; Start 02/17/20 at 21:00 Warfarin Sodium (Coumadin) 3 mg 1X WARF ONCE PO Last administered on 02/17/20at 16:30; Start 02/17/20 at 16:00; Stop 02/17/20 at 16:01; Status DC Calcium Acetate (Phoslo) 1,334 mg TIDWMEALS PO Last administered on 02/18/20at 07:39; Start 02/17/20 at 12:00 Insulin Human Lispro (HumaLOG) 6 units TIDAC SQ Last administered on 02/18/20at 07:48; Start 02/17/20 at 17:00 Insulin Glargine (Lantus Syringe) 6 unit QHS SQ ; Start 02/17/20 at 21:00 Non-Formulary Medication (Thyroid,Pork ([place] Thyroid)) 1 tab DAILY PO ; Start 02/18/20 at 09:00; Stop 02/17/20 at 12:13; Status DC Vitamin B Complex/ Vitamin C (Funmi-Hannah) 1 tab DAILY PO Last administered on 02/18/20at 07:39; Start 02/17/20 at 13:00 Warfarin Sodium (Coumadin Per Pharmacy) 1 each PRN DAILY PRN MC SEE COMMENTS Last administered on 02/18/20at 12:11; Start 02/17/20 at 12:15 Vancomycin HCl (Vanco Per Pharmacy) 1 each PRN DAILY PRN MC SEE COMMENTS Last administered on 02/18/20at 11:32; Start 02/17/20 at 13:00 Cefepime HCl (Maxipime) 1 gm Q24H IVP Last administered on 02/17/20at 13:39; Start 02/17/20 at 14:00 Vancomycin HCl 1.5 gm/Sodium Chloride 500 ml @ 250 mls/hr 1X ONCE IV Last administered on 02/17/20at 13:39; Start 02/17/20 at 13:30; Stop 02/17/20 at 15:29; Status DC Vancomycin HCl (Vancomycin Random Level) 1 each 1X ONCE MC ; Start 02/19/20 at 14:00; Stop 02/19/20 at 14:01 Diphenhydramine HCl (Benadryl) 25 mg PRN Q6HRS PRN PO ITCHING Last administered on 02/18/20at 10:02; Start 02/17/20 at 16:30; Stop 02/18/20 at 10:45; Status DC Hydroxyzine HCl (Atarax) 10 mg PRN Q6HRS PRN PO ITCHING; Start 02/18/20 at 10:45 Multi-Ingredient Ointment (Hydrocerin Cream) 1 scotty PRN Q1HR PRN TP DRY SKIN / SCALING; Start 02/18/20 at 11:15 Warfarin Sodium (Coumadin) 4 mg 1X WARF ONCE PO ; Start 02/18/20 at 16:00; Stop 02/18/20 at 16:01 Active Scripts Active Levothyroxine Sodium 75 Mcg Tablet 75 Mcg PO DAILY06 90 Days Antifungal Cream (Miconazole Nitrate) 14 Gm Cream..g. 1 Scotty TP BID 7 Days Vancomycin HCl 250 Mg Vial 500 Mg IV MWF 14 Days [Cefepime Hcl] 1 GM Vial 3 Gm IVP Q24H 14 Days Culturelle (Lactobacillus Rhamnosus Gg) 1 Each Cap.sprink 1 Cap PO BID 30 Days Polyethylene Glycol 3350 17 Gm Powd.pack 17 Gm PO PRN DAILY PRN 30 Days Amiodarone Hcl 200 Mg Tablet 200 Mg PO DAILY 30 Days Coumadin (Warfarin Sodium) 3 Mg Tablet 3 Mg PO 1X WARF 30 Days Hydrocodone-Apap 7.5-325 (Hydrocodone Bit/Acetaminophen) 1 Tab Tablet 1 Tab PO PRN Q4HRS PRN 6 Days Lantus Solostar (Insulin Glargine,Hum.rec.anlog) 100 Unit/1 Ml Insuln.pen 10 Unit SQ QHS Reported Lantus Solostar (Insulin Glargine,Hum.rec.anlog) 100 Unit/1 Ml Insuln.pen 6 Unit SQ HS [place] Thyroid (Thyroid,Pork) 30 Mg Tablet 1 Tab PO DAILY Simvastatin 40 Mg Tablet 1 Tab PO QHS Metoprolol Tartrate 50 Mg Tablet 1 Tab PO BID Funmi-Hannah Rx Tablet (Vit B Cmplx 3/Fa/Vit C/Biotin) 1 Each Tablet 1 Each PO DAILY Novolog (Insulin Aspart) 100 Unit/1 Ml Cartridge 6 Unit SQ TIDAC Calcium Acetate 667 Mg Tablet 2 Cap PO TIDAC Allergies Allergies: Coded Allergies: latex (Verified Allergy, Intermediate, Rash, 12/30/17) sulfamethoxazole (Verified Allergy, Intermediate, Hives, 08/05/19) trimethoprim (Verified Allergy, Intermediate, Hives, 08/05/19) ROS Review of System A 10 point review of system is otherwise negative besides what is mentioned in the HPI. Physical Exam General: Alert, Oriented X3, Cooperative, No acute distress Lungs: Normal air movement Heart: Other (irregular) Abdomen: Normal bowel sounds, Soft, No tenderness Extremities: Other (She has nonpalpable bilateral radial pulses, she does have a left upper arm access with audible thrill. She has 2+ bilateral femoral pulses. She has 1+ right dorsalis pedis pulse and a 2+ left dorsalis pedis pulse unable to palpate or appreciate left posterior tibial pulse by Doppler.) Skin: Other (Small wound on the plantar surface of her left foot between the second and third met head. This palpates deep to bone. There is no purulent or malodorous drainage. Periwound is intact and clean.) Neuro: Strength at 5/5 X4 ext, Sensation intact Vitals VITALS Vital Signs Date Time Temp Pulse Resp B/P (MAP) Pulse Ox O2 Delivery O2 Flow Rate FiO2 02/18/20 10:42 97.8 68 17 130/52 (78) 95 Room Air 97.8 Labs Labs Laboratory Tests Test 02/17/20 09:00 02/17/20 09:25 02/17/20 11:25 02/17/20 16:34 Urine Collection Type U cath Urine Color Yellow Urine Clarity Cloudy Urine pH 7.5 (<5.0-8.0) Urine Specific [place] 1.010 (1.000-1.030) Urine Protein >=300 mg/dL (NEG-TRACE) Urine Glucose (UA) 100 mg/dL (NEG) Urine Ketones (Stick) Negative mg/dL (NEG) Urine Blood Large (NEG) Urine Nitrite Negative (NEG) Urine Bilirubin Negative (NEG) Urine Urobilinogen Dipstick 0.2 mg/dL (0.2 mg/dL) Urine Leukocyte Esterase Large (NEG) Urine RBC >40 /HPF (0-2) Urine WBC Tntc /HPF (0-4) Urine Squamous Epithelial Cells Mod /LPF Urine Bacteria 0 /HPF (0-FEW) White Blood Count 5.7 x10^3/uL (4.0-11.0) Red Blood Count 2.84 x10^6/uL (3.50-5.40) Hemoglobin 10.0 g/dL (12.0-15.5) Hematocrit 29.6 % (36.0-47.0) Mean Corpuscular Volume 104 fL (79-100) Mean Corpuscular Hemoglobin 35 pg (25-35) Mean Corpuscular Hemoglobin Concent 34 g/dL (31-37) Red Cell Distribution Width 17.5 % (11.5-14.5) Platelet Count 115 x10^3/uL (140-400) Neutrophils (%) (Auto) 62 % (31-73) Lymphocytes (%) (Auto) 21 % (24-48) Monocytes (%) (Auto) 10 % (0-9) Eosinophils (%) (Auto) 6 % (0-3) Basophils (%) (Auto) 1 % (0-3) Neutrophils # (Auto) 3.5 x10^3/uL (1.8-7.7) Lymphocytes # (Auto) 1.2 x10^3/uL (1.0-4.8) Monocytes # (Auto) 0.6 x10^3/uL (0.0-1.1) Eosinophils # (Auto) 0.3 x10^3/uL (0.0-0.7) Basophils # (Auto) 0.1 x10^3/uL (0.0-0.2) Prothrombin Time 20.0 SEC (11.7-14.0) Prothromb Time International Ratio 1.7 (0.8-1.1) Sodium Level 141 mmol/L (136-145) Potassium Level 4.2 mmol/L (3.5-5.1) Chloride Level 100 mmol/L (98-107) Carbon Dioxide Level 29 mmol/L (21-32) Anion Gap 12 (6-14) Blood Urea Nitrogen 55 mg/dL (7-20) Creatinine 6.8 mg/dL (0.6-1.0) Estimated GFR (Cockcroft-Gault) 5.9 BUN/Creatinine Ratio 8 (6-20) Glucose Level 202 mg/dL (70-99) Calcium Level 8.4 mg/dL (8.5-10.1) Magnesium Level 2.3 mg/dL (1.8-2.4) Total Bilirubin 0.4 mg/dL (0.2-1.0) Aspartate Amino Transf (AST/SGOT) 34 U/L (15-37) Alanine Aminotransferase (ALT/SGPT) 44 U/L (14-59) Alkaline Phosphatase 130 U/L (46-116) Troponin I Quantitative < 0.017 ng/mL (0.000-0.055) Total Protein 7.2 g/dL (6.4-8.2) Albumin 2.7 g/dL (3.4-5.0) Albumin/Globulin Ratio 0.6 (1.0-1.7) Glucose (Fingerstick) 157 mg/dL (70-99) 180 mg/dL (70-99) Test 02/17/20 20:19 02/18/20 04:25 02/18/20 06:59 02/18/20 11:12 Glucose (Fingerstick) 171 mg/dL (70-99) 135 mg/dL (70-99) 136 mg/dL (70-99) White Blood Count 5.3 x10^3/uL (4.0-11.0) Red Blood Count 3.03 x10^6/uL (3.50-5.40) Hemoglobin 10.7 g/dL (12.0-15.5) Hematocrit 31.9 % (36.0-47.0) Mean Corpuscular Volume 105 fL (79-100) Mean Corpuscular Hemoglobin 35 pg (25-35) Mean Corpuscular Hemoglobin Concent 34 g/dL (31-37) Red Cell Distribution Width 17.6 % (11.5-14.5) Platelet Count 108 x10^3/uL (140-400) Neutrophils (%) (Auto) 63 % (31-73) Lymphocytes (%) (Auto) 23 % (24-48) Monocytes (%) (Auto) 9 % (0-9) Eosinophils (%) (Auto) 5 % (0-3) Basophils (%) (Auto) 1 % (0-3) Neutrophils # (Auto) 3.3 x10^3/uL (1.8-7.7) Lymphocytes # (Auto) 1.2 x10^3/uL (1.0-4.8) Monocytes # (Auto) 0.5 x10^3/uL (0.0-1.1) Eosinophils # (Auto) 0.3 x10^3/uL (0.0-0.7) Basophils # (Auto) 0.0 x10^3/uL (0.0-0.2) Prothrombin Time 19.6 SEC (11.7-14.0) Prothromb Time International Ratio 1.7 (0.8-1.1) Sodium Level 141 mmol/L (136-145) Potassium Level 4.4 mmol/L (3.5-5.1) Chloride Level 101 mmol/L (98-107) Carbon Dioxide Level 27 mmol/L (21-32) Anion Gap 13 (6-14) Blood Urea Nitrogen 63 mg/dL (7-20) Creatinine 7.8 mg/dL (0.6-1.0) Estimated GFR (Cockcroft-Gault) 5.0 BUN/Creatinine Ratio 8 (6-20) Glucose Level 138 mg/dL (70-99) Calcium Level 8.7 mg/dL (8.5-10.1) Total Bilirubin 0.4 mg/dL (0.2-1.0) Aspartate Amino Transf (AST/SGOT) 36 U/L (15-37) Alanine Aminotransferase (ALT/SGPT) 45 U/L (14-59) Alkaline Phosphatase 133 U/L (46-116) Total Protein 7.4 g/dL (6.4-8.2) Albumin 2.6 g/dL (3.4-5.0) Albumin/Globulin Ratio 0.5 (1.0-1.7) Laboratory Tests Test 02/17/20 16:34 02/17/20 20:19 02/18/20 04:25 02/18/20 06:59 Glucose (Fingerstick) 180 mg/dL (70-99) 171 mg/dL (70-99) 135 mg/dL (70-99) White Blood Count 5.3 x10^3/uL (4.0-11.0) Red Blood Count 3.03 x10^6/uL (3.50-5.40) Hemoglobin 10.7 g/dL (12.0-15.5) Hematocrit 31.9 % (36.0-47.0) Mean Corpuscular Volume 105 fL (79-100) Mean Corpuscular Hemoglobin 35 pg (25-35) Mean Corpuscular Hemoglobin Concent 34 g/dL (31-37) Red Cell Distribution Width 17.6 % (11.5-14.5) Platelet Count 108 x10^3/uL (140-400) Neutrophils (%) (Auto) 63 % (31-73) Lymphocytes (%) (Auto) 23 % (24-48) Monocytes (%) (Auto) 9 % (0-9) Eosinophils (%) (Auto) 5 % (0-3) Basophils (%) (Auto) 1 % (0-3) Neutrophils # (Auto) 3.3 x10^3/uL (1.8-7.7) Lymphocytes # (Auto) 1.2 x10^3/uL (1.0-4.8) Monocytes # (Auto) 0.5 x10^3/uL (0.0-1.1) Eosinophils # (Auto) 0.3 x10^3/uL (0.0-0.7) Basophils # (Auto) 0.0 x10^3/uL (0.0-0.2) Prothrombin Time 19.6 SEC (11.7-14.0) Prothromb Time International Ratio 1.7 (0.8-1.1) Sodium Level 141 mmol/L (136-145) Potassium Level 4.4 mmol/L (3.5-5.1) Chloride Level 101 mmol/L (98-107) Carbon Dioxide Level 27 mmol/L (21-32) Anion Gap 13 (6-14) Blood Urea Nitrogen 63 mg/dL (7-20) Creatinine 7.8 mg/dL (0.6-1.0) Estimated GFR (Cockcroft-Gault) 5.0 BUN/Creatinine Ratio 8 (6-20) Glucose Level 138 mg/dL (70-99) Calcium Level 8.7 mg/dL (8.5-10.1) Total Bilirubin 0.4 mg/dL (0.2-1.0) Aspartate Amino Transf (AST/SGOT) 36 U/L (15-37) Alanine Aminotransferase (ALT/SGPT) 45 U/L (14-59) Alkaline Phosphatase 133 U/L (46-116) Total Protein 7.4 g/dL (6.4-8.2) Albumin 2.6 g/dL (3.4-5.0) Albumin/Globulin Ratio 0.5 (1.0-1.7) Test 02/18/20 11:12 Glucose (Fingerstick) 136 mg/dL (70-99) Assessment/Plan Assessment/Plan 79-year-old diabetic female with end-stage renal disease with a non-healing left plantar foot wound. Recent angiogram with left popliteal angioplasty. By physical examination she has a palpable left dorsalis pedis pulse. She does however have a poorly healing plantar ulcer despite wound VAC therapy and antibiotics. Recommend MRI to evaluate for bony involvement. In addition we will repeat arterial ultrasound. Would recommend holding warfarin if arterial intervention is required. Continue local wound care per wound care team. Continue antibiotics per Infectious Disease. Recommend strict offloading of her left forefoot. I did review the case with Dr. Barba. He will see the patient and make additional recommendations as needed. LATHA BARBA MD I independently saw and examined this patient today with JOSE ANGEL Ayala I independently reviewed her previous angiogram She barton a very focal high grade stenosis in the left popliteal artery -- this had a good result with angioplasty. She had a midfoot plantar food wound that was debrided by orthopedic surgery (she has hardware in the ankle) She has a palpable pulse at the DP at the left ankle suggesting the popliteal intervention is still widely patent Her foot does not look too bad -- no erythema, no purulent discharge, no tenderness, no boggines, nothing to suggest significant infection. Will get an arterial duplex of the left leg to make sure the popliteal does not have recurrent stenosis will recommend an MRI of the foot to look for osteomyelitis. Does not appear to need any vascular intervention but will follow up on duplex. IRA MARTINEZ APRN Feb 18, 2020 13:42 JOEL BARBA MD Feb 18, 2020 14:06
[2020-02-18] MEDS ORDERED: IV NORMAL SALINE 1000ML BAG 1,000 ML IV PRN ×2 (13:51)
[2020-02-18] MEDS: CEFEPIME HCL IV Push 1 GM VIAL. IVP SCH (14:00)
[2020-02-18] MEDS ORDERED: ALBUMIN HUMAN 25% 200 ML IV PRN (14:00)
[2020-02-18] MEDS ORDERED: DIALYSIS PATIENT. MC PRN ×2 (14:00)
[2020-02-18 14:15] VITALS: BP 138/52
--- NOTE | 2020-02-18 14:18 | NUR ---
1/2 shoe not ordered pt has one with her from home.
--- NOTE | 2020-02-18 15:40 | NUR ---
Wound Care Attempted to see pt for wound consultation, pt currently in dialysis, will f/u tomorrow.
[2020-02-18] MEDS ORDERED: WARFARIN 4 MG TABLET. PO ONE (16:00)
[2020-02-18 19:00] VITALS: BP 151/58
--- NOTE | 2020-02-18 20:24 | RAD ---
ARTERIAL STUDY LOWER EXT LEFT 02/18/2020 1:13 PM INDICATION: Nonhealing ulcer of the left foot COMPARISON: None available TECHNIQUE: Sonographic evaluation of the left lower extremity arterial system was performed utilizing grayscale component Doppler and spectral waveform analysis. Findings: Biphasic waveform is identified throughout the left lower extremity arterial system. Left posterior tibial artery is not visualized. Common femoral artery: 138 cm/s Profunda artery: 137 cm/s Superficial femoral artery, proximal: 116 cm/s Superficial femoral artery, mid: 88 cm/s Superficial femoral artery, distal: 74 cm/s Popliteal artery: 105 cm/s Posterior tibial artery: Not visualized. Anterior tibial artery: 75 cm/s Peroneal artery: 40 cm/s Dorsalis pedis artery: 82 cm/s IMPRESSION: 1. Posterior tibial artery is not visualized. 2. Otherwise, no hemodynamically significant stenosis is identified involving the left lower extremity. Biphasic waveforms could reflect mild atherosclerotic changes. Electronically signed by: Gloria Chaves MD (02/18/2020 8:22 PM) JM
[2020-02-18] MEDS: INSULIN GLARGINE SYRINGE. SQ SCH (20:35)
[2020-02-18] MEDS: SIMVASTATIN 40 MG TABLET. PO SCH (20:35)
[2020-02-18 23:00] VITALS: BP 123/42
[2020-02-18] MEDS: hydrOXYzine 10 MG TABLET PO PRN (23:08)
[2020-02-19 03:00] VITALS: BP 122/44
[2020-02-19 06:12] LABS: PROTHROMBIN TIME PATIENT 18.5 SEC (11.7-14.0)
[2020-02-19 07:00] VITALS: BP 134/47
[2020-02-19] MEDS: THYROID,PORK 60 MG TABLET PO SCH (07:42)
[2020-02-19] MEDS: LACTOBACILLUS RHAMNOSUS GG 1 CAPSULE. PO SCH ×2 (07:42→21:49)
[2020-02-19] MEDS: FOLIC/VIT B COMP W-C (RENAL) TABLET. PO SCH (07:42)
[2020-02-19] MEDS: CALCIUM ACETATE 667 MG CAPSULE PO SCH ×3 (07:42→17:06)
[2020-02-19] MEDS: METOPROLOL TART IMMED RELEASE 50 MG TABLET. PO SCH ×2 (07:44→21:49)
[2020-02-19] MEDS: INSULIN LISPRO 300 UNITS/3 ML VIAL. SQ SCH ×3 (07:47→16:30)
--- NOTE | 2020-02-19 10:17 | NUR ---
TADEO following. Discussed with RN, pt from home. MRI today. SW will continue to follow. Addendum: 02/19/20 at 1618 by MARITA PIEDRA MRI still pending authorization. Dr. Keene advised pt agreeable to referrals being sent to [facility] facilities. TADEO met with pt, pt advised she wanted to think about it and does not want to go to [place] - TADEO advised there are other facilities which are in network with her insurance. SW advised will return after pt does therapy today. Pt declined PT. TADEO spoke with pt's daughter, Daniella, discussed LTAC (per conversation with Dr. Keene), Daniella is wanting to tour [facility] and [facility] [place]. Daniella also questioned whether pt can do therapy at home - TADEO advised [facility] (current home health provider) can do therapy at home. Daniella stated she will call pt and tell her "you do therapy at home, or you are going to a facility." TADEO requested Daniella contact SW back to advise of discharge decision. TADEO will continue to follow. Physician notified.
--- NOTE | 2020-02-19 10:31 | PDOC ---
Infectious Disease Note Subjective Subjective Patient is feeling fine no complaints ROS ROS No nausea vomiting diarrhea chest pain shortness of breath Vital Sign Vital Signs Vital Signs Date Time Temp Pulse Resp B/P (MAP) Pulse Ox O2 Delivery O2 Flow Rate FiO2 02/19/20 08:00 Room Air 02/19/20 07:44 68 134/47 02/19/20 07:00 98.0 18 98 98.0 Physical Exam PHYSICAL EXAM Patient is comfortable not in distress. 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 Labs Lab Laboratory Tests Test 02/18/20 11:12 02/18/20 19:12 02/18/20 21:04 02/19/20 05:45 Glucose (Fingerstick) 136 mg/dL (70-99) 128 mg/dL (70-99) 243 mg/dL (70-99) Prothrombin Time 18.5 SEC (11.7-14.0) Prothromb Time International Ratio 1.6 (0.8-1.1) Test 02/19/20 07:00 Glucose (Fingerstick) 139 mg/dL (70-99) Micro Microbiology 02/17/20 Urine Culture - Final, Complete Objective Assessment Questionable UTI/colonization Foot wound on antibiotics for now at least 4 weeks and still not improving probably will need resection End-stage renal disease on hemodialysis Plan Plan of Care Continue antibiotics through dialysis Continue wound VAC Vascular surgery input appreciated MRI is pending ANA CRISTINA العلي MD Feb 19, 2020 10:31
[2020-02-19 10:40] VITALS: BP 151/63
[2020-02-19] MEDS: VANCOMYCIN PER PHARMACY MC PRN (11:42)
--- NOTE | 2020-02-19 11:48 | PDOC ---
PROGRESS NOTES Chief Complaint Chief Complaint A/P: Acute encephalopathy - in patient with h/o MDRO UTI and recent bone culture positive and elevated blood pressure looks to be toxic and metabolic encephalopathy HTN urgency - will restart meds. PRN hydralazine ESRD oN HD - consult nephrology Paroxysmal Afib - on warfarin and amiodarone Acute encephalopathy - unlikely UTI given her ESRD status Left foot diabetic infection, osteomyelitis based on op-report with purulent drainage and previous wound infection, chronic callus on plantar foot, Surface swab cultures polymicrobial organism Cultures positive for Bacteroides, Proteus, E. coli, enterococcus 12/24 Status post incision and drainage December 29, 2019 - bone cult 12/28 with Enterococcus Avium Diabetes mellitus - sliding scale + lantus PVD s/p angioplasty 12/26 on Left polpliteal - post tib with chronic total occlusion Thrombocytopenia - will monitor. Previously noted in July 2019, resolved since Anemia - of chronic renal disease, macrocytosis noted, B12 in 500s Hypothyroidism - with elevated TSH 13, will cont levothyroxine History of Present Illness History of Present Illness Ms Beach is a 79yo F w/ PMHx ESRD on HD, coronary artery disease and paroxysmal atrial fibrillation presented with feeling badly. She was recently seen a month ago for LLE infection with osteomyelitis and has significant weakness and confusion now. Confused for the past few days, so weak now is unable to ambulate. CT head negative for acute abnormality. Labs consistent with ESRD, weak, pruritic Admitted for further treatment. Consults: Nephrology, Infectious diseases 02/17: Back to her normal mental status today. Labs consistent with ESRD. Blood culture negative so far. No SOB or CP. Left foot wound still deep, slowly healing, concerning for bone involvement. On cefepime and vancomycin for 2 weeks due to slow wound healing and f/u with ID and vascular surgery. She is itching, asking for benadryl. US with no occlusive disease, but no visualization of posterior tibial artery on left. Overnight no events. No nausea vomiting diarrhea chest pain shortness of breath. Itching improved with eucerin. She is amenable to SNF placement for rehab now, I will call her daughter, Daniella to discuss. Vitals Vitals Vital Signs Date Time Temp Pulse Resp B/P (MAP) Pulse Ox O2 Delivery O2 Flow Rate FiO2 02/19/20 10:40 98.0 72 17 151/63 (92) 94 Room Air 98.0 Physical Exam Physical Exam Patient is comfortable not in distress. 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 She has 2+ bilateral femoral pulses. She has 1+ right dorsalis pedis pulse and a 2+ left dorsalis pedis pulse unable to palpate or appreciate left posterior tibial pulse by Doppler.) Skin: Other (Small wound on the plantar surface of her left foot between the second and third met head. This palpates deep to bone. There is no purulent or malodorous drainage. Periwound is intact and clean.) Labs LABS Laboratory Tests Test 02/18/20 19:12 02/18/20 21:04 02/19/20 05:45 02/19/20 07:00 Glucose (Fingerstick) 128 mg/dL (70-99) 243 mg/dL (70-99) 139 mg/dL (70-99) Prothrombin Time 18.5 SEC (11.7-14.0) Prothromb Time International Ratio 1.6 (0.8-1.1) Test 02/19/20 11:08 Glucose (Fingerstick) 165 mg/dL (70-99) Assessment and Plan Assessmemt and Plan Problems Medical Problems: (1) UTI (urinary tract infection) Status: Acute (2) Weakness Status: Acute Comment Review of Relevant I have reviewed the following items anastasiya (where applicable) has been applied. Labs Laboratory Tests Test 02/17/20 16:34 02/17/20 20:19 02/18/20 04:25 02/18/20 06:59 Glucose (Fingerstick) 180 mg/dL (70-99) 171 mg/dL (70-99) 135 mg/dL (70-99) White Blood Count 5.3 x10^3/uL (4.0-11.0) Red Blood Count 3.03 x10^6/uL (3.50-5.40) Hemoglobin 10.7 g/dL (12.0-15.5) Hematocrit 31.9 % (36.0-47.0) Mean Corpuscular Volume 105 fL (79-100) Mean Corpuscular Hemoglobin 35 pg (25-35) Mean Corpuscular Hemoglobin Concent 34 g/dL (31-37) Red Cell Distribution Width 17.6 % (11.5-14.5) Platelet Count 108 x10^3/uL (140-400) Neutrophils (%) (Auto) 63 % (31-73) Lymphocytes (%) (Auto) 23 % (24-48) Monocytes (%) (Auto) 9 % (0-9) Eosinophils (%) (Auto) 5 % (0-3) Basophils (%) (Auto) 1 % (0-3) Neutrophils # (Auto) 3.3 x10^3/uL (1.8-7.7) Lymphocytes # (Auto) 1.2 x10^3/uL (1.0-4.8) Monocytes # (Auto) 0.5 x10^3/uL (0.0-1.1) Eosinophils # (Auto) 0.3 x10^3/uL (0.0-0.7) Basophils # (Auto) 0.0 x10^3/uL (0.0-0.2) Prothrombin Time 19.6 SEC (11.7-14.0) Prothromb Time International Ratio 1.7 (0.8-1.1) Sodium Level 141 mmol/L (136-145) Potassium Level 4.4 mmol/L (3.5-5.1) Chloride Level 101 mmol/L (98-107) Carbon Dioxide Level 27 mmol/L (21-32) Anion Gap 13 (6-14) Blood Urea Nitrogen 63 mg/dL (7-20) Creatinine 7.8 mg/dL (0.6-1.0) Estimated GFR (Cockcroft-Gault) 5.0 BUN/Creatinine Ratio 8 (6-20) Glucose Level 138 mg/dL (70-99) Calcium Level 8.7 mg/dL (8.5-10.1) Total Bilirubin 0.4 mg/dL (0.2-1.0) Aspartate Amino Transf (AST/SGOT) 36 U/L (15-37) Alanine Aminotransferase (ALT/SGPT) 45 U/L (14-59) Alkaline Phosphatase 133 U/L (46-116) Total Protein 7.4 g/dL (6.4-8.2) Albumin 2.6 g/dL (3.4-5.0) Albumin/Globulin Ratio 0.5 (1.0-1.7) Test 02/18/20 11:12 02/18/20 19:12 02/18/20 21:04 02/19/20 05:45 Glucose (Fingerstick) 136 mg/dL (70-99) 128 mg/dL (70-99) 243 mg/dL (70-99) Prothrombin Time 18.5 SEC (11.7-14.0) Prothromb Time International Ratio 1.6 (0.8-1.1) Test 02/19/20 07:00 02/19/20 11:08 Glucose (Fingerstick) 139 mg/dL (70-99) 165 mg/dL (70-99) Laboratory Tests Test 02/18/20 19:12 02/18/20 21:04 02/19/20 05:45 02/19/20 07:00 Glucose (Fingerstick) 128 mg/dL (70-99) 243 mg/dL (70-99) 139 mg/dL (70-99) Prothrombin Time 18.5 SEC (11.7-14.0) Prothromb Time International Ratio 1.6 (0.8-1.1) Test 02/19/20 11:08 Glucose (Fingerstick) 165 mg/dL (70-99) Microbiology 02/17/20 Urine Culture - Final, Complete Medications Current Medications Diphenhydramine HCl (Benadryl) 25 mg 1X ONCE IVP Last administered on 02/17/20at 09:11; Start 02/17/20 at 08:30; Stop 02/17/20 at 08:31; Status DC Ceftriaxone Sodium (Rocephin) 1 gm 1X ONCE IVP Last administered on 02/17/20at 10:41; Start 02/17/20 at 10:30; Stop 02/17/20 at 10:31; Status DC Ondansetron HCl (Zofran) 4 mg PRN Q8HRS PRN IV NAUSEA/VOMITING; Start 02/17/20 at 10:30; Stop 02/18/20 at 10:29; Status DC Fentanyl Citrate (Fentanyl 2ml Vial) 50 mcg PRN Q1HR PRN IV PAIN; Start 02/17/20 at 10:30; Stop 02/18/20 at 10:29; Status DC Acetaminophen (Tylenol) 650 mg PRN Q4HRS PRN PO FEVER > 100.3'F; Start 02/17/20 at 10:30; Stop 02/18/20 at 10:29; Status DC Thyroid (Mims Thyroid) 30 mg DAILY PO ; Start 02/17/20 at 12:00 Acetaminophen/ Hydrocodone Bitart (Lortab 7.5/325) 1 tab PRN Q4HRS PRN PO PAIN MILD TO MODERATE; Start 02/17/20 at 12:00 Lactobacillus Rhamnosus (Culturelle) 1 cap BID PO Last administered on 02/19/20at 07:42; Start 02/17/20 at 21:00 Metoprolol Tartrate (Lopressor) 50 mg BID PO Last administered on 02/19/20at 07:44; Start 02/17/20 at 13:00 Polyethylene Glycol (miraLAX PACKET) 17 gm PRN DAILY PRN PO CONSTIPATION; Start 02/17/20 at 12:00 Simvastatin (Zocor) 40 mg QHS PO Last administered on 02/18/20at 20:35; Start 02/17/20 at 21:00 Warfarin Sodium (Coumadin) 3 mg 1X WARF ONCE PO Last administered on 02/17/20at 16:30; Start 02/17/20 at 16:00; Stop 02/17/20 at 16:01; Status DC Calcium Acetate (Phoslo) 1,334 mg TIDWMEALS PO Last administered on 02/19/20at 07:42; Start 02/17/20 at 12:00 Insulin Human Lispro (HumaLOG) 6 units TIDAC SQ Last administered on 02/19/20at 07:47; Start 02/17/20 at 17:00 Insulin Glargine (Lantus Syringe) 6 unit QHS SQ ; Start 02/17/20 at 21:00 Non-Formulary Medication (Thyroid,Pork (Mims Thyroid)) 1 tab DAILY PO ; Start 02/18/20 at 09:00; Stop 02/17/20 at 12:13; Status DC Vitamin B Complex/ Vitamin C (Funmi-Hannah) 1 tab DAILY PO Last administered on 02/19/20at 07:42; Start 02/17/20 at 13:00 Warfarin Sodium (Coumadin Per Pharmacy) 1 each PRN DAILY PRN MC SEE COMMENTS Last administered on 02/19/20at 11:35; Start 02/17/20 at 12:15 Vancomycin HCl (Vanco Per Pharmacy) 1 each PRN DAILY PRN MC SEE COMMENTS Last administered on 02/19/20at 11:42; Start 02/17/20 at 13:00 Cefepime HCl (Maxipime) 1 gm Q24H IVP Last administered on 02/18/20at 14:00; Start 02/17/20 at 14:00 Vancomycin HCl 1.5 gm/Sodium Chloride 500 ml @ 250 mls/hr 1X ONCE IV Last administered on 02/17/20at 13:39; Start 02/17/20 at 13:30; Stop 02/17/20 at 15:29; Status DC Vancomycin HCl (Vancomycin Random Level) 1 each 1X ONCE MC ; Start 02/20/20 at 06:00; Stop 02/20/20 at 06:01 Diphenhydramine HCl (Benadryl) 25 mg PRN Q6HRS PRN PO ITCHING Last administered on 02/18/20at 10:02; Start 02/17/20 at 16:30; Stop 02/18/20 at 10:45; Status DC Hydroxyzine HCl (Atarax) 10 mg PRN Q6HRS PRN PO ITCHING Last administered on 02/18/20at 23:08; Start 02/18/20 at 10:45 Multi-Ingredient Ointment (Hydrocerin Cream) 1 scotty PRN Q1HR PRN TP DRY SKIN / SCALING Last administered on 02/18/20at 20:36; Start 02/18/20 at 11:15 Warfarin Sodium (Coumadin) 4 mg 1X WARF ONCE PO Last administered on 02/18/20at 19:19; Start 02/18/20 at 16:00; Stop 02/18/20 at 16:01; Status DC Sodium Chloride 1,000 ml @ 1,000 mls/hr Q1H PRN IV hypotension; Start 02/18/20 at 13:51; Stop 02/18/20 at 19:50; Status DC Albumin Human 200 ml @ 200 mls/hr 1X PRN PRN IV Hypotension; Start 02/18/20 at 14:00; Stop 02/18/20 at 19:59; Status DC Sodium Chloride 1,000 ml @ 400 mls/hr Q2H30M PRN IV PATENCY; Start 02/18/20 at 13:51; Stop 02/19/20 at 01:50; Status DC Info (PHARMACY MONITORING -- do not chart) 1 each PRN DAILY PRN MC SEE COMMENTS; Start 02/18/20 at 14:00; Stop 02/18/20 at 14:06; Status DC Info (PHARMACY MONITORING -- do not chart) 1 each PRN DAILY PRN MC SEE COMMENTS; Start 02/18/20 at 14:00 Warfarin Sodium (Coumadin) 5 mg 1X WARF ONCE PO ; Start 02/19/20 at 16:00; Stop 02/19/20 at 16:01 Active Scripts Active Levothyroxine Sodium 75 Mcg Tablet 75 Mcg PO DAILY06 90 Days Antifungal Cream (Miconazole Nitrate) 14 Gm Cream..g. 1 Scotty TP BID 7 Days Vancomycin HCl 250 Mg Vial 500 Mg IV MWF 14 Days [Cefepime Hcl] 1 GM Vial 3 Gm IVP Q24H 14 Days Culturelle (Lactobacillus Rhamnosus Gg) 1 Each Cap.sprink 1 Cap PO BID 30 Days Polyethylene Glycol 3350 17 Gm Powd.pack 17 Gm PO PRN DAILY PRN 30 Days Amiodarone Hcl 200 Mg Tablet 200 Mg PO DAILY 30 Days Coumadin (Warfarin Sodium) 3 Mg Tablet 3 Mg PO 1X WARF 30 Days Hydrocodone-Apap 7.5-325 (Hydrocodone Bit/Acetaminophen) 1 Tab Tablet 1 Tab PO PRN Q4HRS PRN 6 Days Lantus Solostar (Insulin Glargine,Hum.rec.anlog) 100 Unit/1 Ml Insuln.pen 10 Unit SQ QHS Reported Lantus Solostar (Insulin Glargine,Hum.rec.anlog) 100 Unit/1 Ml Insuln.pen 6 Unit SQ HS Mims Thyroid (Thyroid,Pork) 30 Mg Tablet 1 Tab PO DAILY Simvastatin 40 Mg Tablet 1 Tab PO QHS Metoprolol Tartrate 50 Mg Tablet 1 Tab PO BID Funmi-Hannah Rx Tablet (Vit B Cmplx 3/Fa/Vit C/Biotin) 1 Each Tablet 1 Each PO DAILY Novolog (Insulin Aspart) 100 Unit/1 Ml Cartridge 6 Unit SQ TIDAC Calcium Acetate 667 Mg Tablet 2 Cap PO TIDAC Vitals/I & O Vital Sign - Last 24 Hours 02/18/20 02/18/20 02/18/20 02/18/20 14:15 19:00 20:00 20:36 Temp 97.9 98.1 97.9 98.1 Pulse 75 76 75 Resp 18 18 B/P (MAP) 138/52 (80) 151/58 (89) 138/52 Pulse Ox 94 97 O2 Delivery Room Air Room Air Room Air 02/18/20 02/19/20 02/19/20 02/19/20 23:00 03:00 07:00 07:44 Temp 98.3 98.3 98.0 98.3 98.3 98.0 Pulse 65 67 68 68 Resp 18 18 B/P (MAP) 123/42 (69) 122/44 (70) 134/47 (76) 134/47 Pulse Ox 96 94 98 O2 Delivery Room Air Room Air Room Air 02/19/20 02/19/20 08:00 10:40 Temp 98.0 98.0 Pulse 72 Resp 17 B/P (MAP) 151/63 (92) Pulse Ox 94 O2 Delivery Room Air Room Air Intake and Output 02/18/20 02/18/20 02/19/20 14:59 22:59 06:59 Intake Total 440 ml 300 ml Balance 440 ml 300 ml ITA MOSQUEDA MD Feb 19, 2020 11:48
--- NOTE | 2020-02-19 12:05 | PDOC ---
Renal-Progress Notes Subjective Notes Notes NO NEW COMPLAINTS History of Present Illness Hx of present illness STABLE Vitals Vitals Vital Signs Date Time Temp Pulse Resp B/P (MAP) Pulse Ox O2 Delivery O2 Flow Rate FiO2 02/19/20 10:40 98.0 72 17 151/63 (92) 94 Room Air 98.0 Weight Weight [ ] I.O. Intake and Output Intake and Output 02/19/20 07:00 Intake Total 740 ml Balance 740 ml Intake Oral 740 ml # Voids 3 Labs Labs Laboratory Tests Test 02/18/20 19:12 02/18/20 21:04 02/19/20 05:45 02/19/20 07:00 Glucose (Fingerstick) 128 mg/dL (70-99) 243 mg/dL (70-99) 139 mg/dL (70-99) Prothrombin Time 18.5 SEC (11.7-14.0) Prothromb Time International Ratio 1.6 (0.8-1.1) Test 02/19/20 11:08 Glucose (Fingerstick) 165 mg/dL (70-99) Micro Micro Microbiology 02/17/20 Urine Culture - Final, Complete Review of Systems Constitutional: yes: weakness, alert, other (CONFUSED) Ears/Nose/Throat: Yes: no symptom reported Eyes: Yes: no symptom reported Pulmonary: Yes no symptom reported Cardiovascular: Yes no symptom reported Gastrointestional: Yes: no symptom reported Genitourinary: Yes: no symptom reported Musculoskeletal: Yes: no symptom reported Skin: Yes no symptom reported Psychiatric/Neurological: Yes: no symptom reported Endocrine: Yes: no symptom reported Physical Exam General Appearance: no apparent distress Skin: warm Respiratory: bilateral CTA Heart: S1S2 Abdomen: soft, bowel sounds present Genitourinary: bladder flat Extremities: pulses present Neurology: alert, confused Assessment Assessment IMP ESRD-MWF ENCEPHALOPATHY-RESOLVED DECONDITIONING DM II DM II RELATED L FOOT INFECTION AND OSTEO RECURRENT UTI VS COLONIZATION HX OF AFIB LEFT PLANTAR FOOT WOUND-?OSTEOMYELITIS PLAN ANTIBIOTICS HD TOMORROW USE LEFT ARM BB AVG BIJAN NEEDED ID EVAL AND TX MAY NEED RESECTION WILL FOLLOW MELONIE GUAMAN MD Feb 19, 2020 12:05
--- NOTE | 2020-02-19 13:17 | NUR ---
Pharmacy Warfarin Dosing Note S:Pharmacy consulted to assist with anticoagulation therapy started with target INR: 2 -3 O:BRYANT LOCKHART is a 79 year old F with Atrial Fibrillation LABS: Last INR: 1.6 Last HGB: 10.7 Last HCT: 31.9 Last PLT: 108 Last dose of 4 mg given on 02/18/20 at 1630 Previous Regimen: Vitamin K given: Drug Interaction Changes: Ongoing Drug Interactions: A:INR of 1.6 is below desired range. Target range for this patient is: 2 -3 P: Warfarin dose: 5 mg Today at 1600 Bridge Therapy: Next INR due Pharmacy anticoagulation service will continue to follow. JOSE BAKER [facility], 02/19/20 [id number]
--- NOTE | 2020-02-19 13:24 | PDOC ---
PROGRESS NOTES Subjective Subjective I'm feeling much better. This is a pleasant 79-year-old female who we have been asked to see for a non- healing left foot wound. She was admitted to the hospital with complaints of weakness and urinary tract infection. She has a history of diabetes, atrial fibrillation and end-stage renal disease on hemodialysis through a left upper arm access.. Patient was last seen by us here on December 26, 2019, she underwent angiography with angioplasty of the left popliteal artery by Dr. Damon. She then had wound debridement by Dr. Bonner. She has been followed at the wound care center with wound vac therapy. She has also been receiving Intravenous antibiotics for at least four weeks. She denies any particular complaints or concerns right now. She denies any history of fever or chills. She denies any nausea or vomiting. She denies any chest pain or shortness of breath. She denies any lower extremity claudication or foot pain. She is still awaiting her left foot MRI. 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 Objective Objective 1. Posterior tibial artery is not visualized. 2. Otherwise, no hemodynamically significant stenosis is identified involving the left lower extremity. Biphasic waveforms could reflect mild atherosclerotic changes. Vital Signs Date Time Temp Pulse Resp B/P (MAP) Pulse Ox O2 Delivery O2 Flow Rate FiO2 02/19/20 10:40 98.0 72 17 151/63 (92) 94 Room Air 98.0 Intake and Output 02/19/20 07:00 Intake Total 740 ml Balance 740 ml Intake Oral 740 ml # Voids 3 Physical Exam Heart: Regular rate Extremities: No cyanosis, Other (She has a 2+ DP pulse on the left. She has an easily palpable thrill through her left upper arm HD Access.) General: Alert, Oriented X3, Cooperative, No acute distress HEENT: Atraumatic Lungs: Normal air movement MUSCULOSKELETAL: Other (Her Left foot wound is dressed) Neuro: Normal speech Psych/Mental Status: Mental status NL, Mood NL Assessment Assessment Problems Medical Problems: (1) UTI (urinary tract infection) Status: Acute (2) Weakness Status: Acute 79-year-old diabetic female with end-stage renal disease with a non-healing left plantar foot wound. Recent angiogram with left popliteal angioplasty. By physical examination she has a palpable left dorsalis pedis pulse. She does however have a poorly healing plantar ulcer despite wound VAC therapy and antibiotics. Recommend MRI to evaluate for bony involvement has still not been done. Her arterial US showed: Posterior tibial artery is not visualized, Otherwise, no hemodynamically significant stenosis is identified involving the left lower extremity. Biphasic waveforms could reflect mild atherosclerotic changes. Would recommend holding warfarin if arterial intervention is required. Continue local wound care per wound care team. Continue antibiotics per Infectious Disease. Recommend strict offloading of her left forefoot. Await results of MRI to evaluate for the development of Osteo Comment Review of Relevant I have reviewed the following items anastasiya (where applicable) has been applied. Labs Laboratory Tests Test 02/17/20 16:34 02/17/20 20:19 02/18/20 04:25 02/18/20 06:59 Glucose (Fingerstick) 180 mg/dL (70-99) 171 mg/dL (70-99) 135 mg/dL (70-99) White Blood Count 5.3 x10^3/uL (4.0-11.0) Red Blood Count 3.03 x10^6/uL (3.50-5.40) Hemoglobin 10.7 g/dL (12.0-15.5) Hematocrit 31.9 % (36.0-47.0) Mean Corpuscular Volume 105 fL (79-100) Mean Corpuscular Hemoglobin 35 pg (25-35) Mean Corpuscular Hemoglobin Concent 34 g/dL (31-37) Red Cell Distribution Width 17.6 % (11.5-14.5) Platelet Count 108 x10^3/uL (140-400) Neutrophils (%) (Auto) 63 % (31-73) Lymphocytes (%) (Auto) 23 % (24-48) Monocytes (%) (Auto) 9 % (0-9) Eosinophils (%) (Auto) 5 % (0-3) Basophils (%) (Auto) 1 % (0-3) Neutrophils # (Auto) 3.3 x10^3/uL (1.8-7.7) Lymphocytes # (Auto) 1.2 x10^3/uL (1.0-4.8) Monocytes # (Auto) 0.5 x10^3/uL (0.0-1.1) Eosinophils # (Auto) 0.3 x10^3/uL (0.0-0.7) Basophils # (Auto) 0.0 x10^3/uL (0.0-0.2) Prothrombin Time 19.6 SEC (11.7-14.0) Prothromb Time International Ratio 1.7 (0.8-1.1) Sodium Level 141 mmol/L (136-145) Potassium Level 4.4 mmol/L (3.5-5.1) Chloride Level 101 mmol/L (98-107) Carbon Dioxide Level 27 mmol/L (21-32) Anion Gap 13 (6-14) Blood Urea Nitrogen 63 mg/dL (7-20) Creatinine 7.8 mg/dL (0.6-1.0) Estimated GFR (Cockcroft-Gault) 5.0 BUN/Creatinine Ratio 8 (6-20) Glucose Level 138 mg/dL (70-99) Calcium Level 8.7 mg/dL (8.5-10.1) Total Bilirubin 0.4 mg/dL (0.2-1.0) Aspartate Amino Transf (AST/SGOT) 36 U/L (15-37) Alanine Aminotransferase (ALT/SGPT) 45 U/L (14-59) Alkaline Phosphatase 133 U/L (46-116) Total Protein 7.4 g/dL (6.4-8.2) Albumin 2.6 g/dL (3.4-5.0) Albumin/Globulin Ratio 0.5 (1.0-1.7) Test 02/18/20 11:12 02/18/20 19:12 02/18/20 21:04 02/19/20 05:45 Glucose (Fingerstick) 136 mg/dL (70-99) 128 mg/dL (70-99) 243 mg/dL (70-99) Prothrombin Time 18.5 SEC (11.7-14.0) Prothromb Time International Ratio 1.6 (0.8-1.1) C-Reactive Protein, Quantitative 15.0 mg/L (0-3.3) Test 02/19/20 07:00 02/19/20 11:08 Glucose (Fingerstick) 139 mg/dL (70-99) 165 mg/dL (70-99) Laboratory Tests Test 02/18/20 19:12 02/18/20 21:04 02/19/20 05:45 02/19/20 07:00 Glucose (Fingerstick) 128 mg/dL (70-99) 243 mg/dL (70-99) 139 mg/dL (70-99) Prothrombin Time 18.5 SEC (11.7-14.0) Prothromb Time International Ratio 1.6 (0.8-1.1) C-Reactive Protein, Quantitative 15.0 mg/L (0-3.3) Test 02/19/20 11:08 Glucose (Fingerstick) 165 mg/dL (70-99) Microbiology 02/17/20 Urine Culture - Final, Complete Medications Current Medications Diphenhydramine HCl (Benadryl) 25 mg 1X ONCE IVP Last administered on 02/17/20at 09:11; Start 02/17/20 at 08:30; Stop 02/17/20 at 08:31; Status DC Ceftriaxone Sodium (Rocephin) 1 gm 1X ONCE IVP Last administered on 02/17/20at 10:41; Start 02/17/20 at 10:30; Stop 02/17/20 at 10:31; Status DC Ondansetron HCl (Zofran) 4 mg PRN Q8HRS PRN IV NAUSEA/VOMITING; Start 02/17/20 at 10:30; Stop 02/18/20 at 10:29; Status DC Fentanyl Citrate (Fentanyl 2ml Vial) 50 mcg PRN Q1HR PRN IV PAIN; Start 02/17/20 at 10:30; Stop 02/18/20 at 10:29; Status DC Acetaminophen (Tylenol) 650 mg PRN Q4HRS PRN PO FEVER > 100.3'F; Start 02/17/20 at 10:30; Stop 02/18/20 at 10:29; Status DC Thyroid (Grover Thyroid) 30 mg DAILY PO ; Start 02/17/20 at 12:00 Acetaminophen/ Hydrocodone Bitart (Lortab 7.5/325) 1 tab PRN Q4HRS PRN PO PAIN MILD TO MODERATE; Start 02/17/20 at 12:00 Lactobacillus Rhamnosus (Culturelle) 1 cap BID PO Last administered on 02/19/20at 07:42; Start 02/17/20 at 21:00 Metoprolol Tartrate (Lopressor) 50 mg BID PO Last administered on 02/19/20at 07:44; Start 02/17/20 at 13:00 Polyethylene Glycol (miraLAX PACKET) 17 gm PRN DAILY PRN PO CONSTIPATION; Start 02/17/20 at 12:00 Simvastatin (Zocor) 40 mg QHS PO Last administered on 02/18/20at 20:35; Start 02/17/20 at 21:00 Warfarin Sodium (Coumadin) 3 mg 1X WARF ONCE PO Last administered on 02/17/20at 16:30; Start 02/17/20 at 16:00; Stop 02/17/20 at 16:01; Status DC Calcium Acetate (Phoslo) 1,334 mg TIDWMEALS PO Last administered on 02/19/20at 12:23; Start 02/17/20 at 12:00 Insulin Human Lispro (HumaLOG) 6 units TIDAC SQ Last administered on 02/19/20at 12:27; Start 02/17/20 at 17:00 Insulin Glargine (Lantus Syringe) 6 unit QHS SQ ; Start 02/17/20 at 21:00 Non-Formulary Medication (Thyroid,Pork (Grover Thyroid)) 1 tab DAILY PO ; Start 02/18/20 at 09:00; Stop 02/17/20 at 12:13; Status DC Vitamin B Complex/ Vitamin C (Funmi-Hannah) 1 tab DAILY PO Last administered on 02/19/20at 07:42; Start 02/17/20 at 13:00 Warfarin Sodium (Coumadin Per Pharmacy) 1 each PRN DAILY PRN MC SEE COMMENTS Last administered on 02/19/20at 11:35; Start 02/17/20 at 12:15 Vancomycin HCl (Vanco Per Pharmacy) 1 each PRN DAILY PRN MC SEE COMMENTS Last administered on 02/19/20at 11:42; Start 02/17/20 at 13:00 Cefepime HCl (Maxipime) 1 gm Q24H IVP Last administered on 02/18/20at 14:00; Start 02/17/20 at 14:00 Vancomycin HCl 1.5 gm/Sodium Chloride 500 ml @ 250 mls/hr 1X ONCE IV Last administered on 02/17/20at 13:39; Start 02/17/20 at 13:30; Stop 02/17/20 at 15:29; Status DC Vancomycin HCl (Vancomycin Random Level) 1 each 1X ONCE MC ; Start 02/20/20 at 06:00; Stop 02/20/20 at 06:01 Diphenhydramine HCl (Benadryl) 25 mg PRN Q6HRS PRN PO ITCHING Last administered on 02/18/20at 10:02; Start 02/17/20 at 16:30; Stop 02/18/20 at 10:45; Status DC Hydroxyzine HCl (Atarax) 10 mg PRN Q6HRS PRN PO ITCHING Last administered on 02/18/20at 23:08; Start 02/18/20 at 10:45 Multi-Ingredient Ointment (Hydrocerin Cream) 1 scotty PRN Q1HR PRN TP DRY SKIN / SCALING Last administered on 02/18/20at 20:36; Start 02/18/20 at 11:15 Warfarin Sodium (Coumadin) 4 mg 1X WARF ONCE PO Last administered on 02/18/20at 19:19; Start 02/18/20 at 16:00; Stop 02/18/20 at 16:01; Status DC Sodium Chloride 1,000 ml @ 1,000 mls/hr Q1H PRN IV hypotension; Start 02/18/20 at 13:51; Stop 02/18/20 at 19:50; Status DC Albumin Human 200 ml @ 200 mls/hr 1X PRN PRN IV Hypotension; Start 02/18/20 at 14:00; Stop 02/18/20 at 19:59; Status DC Sodium Chloride 1,000 ml @ 400 mls/hr Q2H30M PRN IV PATENCY; Start 02/18/20 at 13:51; Stop 02/19/20 at 01:50; Status DC Info (PHARMACY MONITORING -- do not chart) 1 each PRN DAILY PRN MC SEE COMMENTS; Start 02/18/20 at 14:00; Stop 02/18/20 at 14:06; Status DC Info (PHARMACY MONITORING -- do not chart) 1 each PRN DAILY PRN MC SEE COMME NTS; Start 02/18/20 at 14:00 Warfarin Sodium (Coumadin) 5 mg 1X WARF ONCE PO ; Start 02/19/20 at 16:00; Stop 02/19/20 at 16:01 Active Scripts Active Levothyroxine Sodium 75 Mcg Tablet 75 Mcg PO DAILY06 90 Days Antifungal Cream (Miconazole Nitrate) 14 Gm Cream..g. 1 Scotty TP BID 7 Days Vancomycin HCl 250 Mg Vial 500 Mg IV MWF 14 Days [Cefepime Hcl] 1 GM Vial 3 Gm IVP Q24H 14 Days Culturelle (Lactobacillus Rhamnosus Gg) 1 Each Cap.sprink 1 Cap PO BID 30 Days Polyethylene Glycol 3350 17 Gm Powd.pack 17 Gm PO PRN DAILY PRN 30 Days Amiodarone Hcl 200 Mg Tablet 200 Mg PO DAILY 30 Days Coumadin (Warfarin Sodium) 3 Mg Tablet 3 Mg PO 1X WARF 30 Days Hydrocodone-Apap 7.5-325 (Hydrocodone Bit/Acetaminophen) 1 Tab Tablet 1 Tab PO PRN Q4HRS PRN 6 Days Lantus Solostar (Insulin Glargine,Hum.rec.anlog) 100 Unit/1 Ml Insuln.pen 10 Unit SQ QHS Reported Lantus Solostar (Insulin Glargine,Hum.rec.anlog) 100 Unit/1 Ml Insuln.pen 6 Unit SQ HS Grover Thyroid (Thyroid,Pork) 30 Mg Tablet 1 Tab PO DAILY Simvastatin 40 Mg Tablet 1 Tab PO QHS Metoprolol Tartrate 50 Mg Tablet 1 Tab PO BID Funmi-Hannah Rx Tablet (Vit B Cmplx 3/Fa/Vit C/Biotin) 1 Each Tablet 1 Each PO DAILY Novolog (Insulin Aspart) 100 Unit/1 Ml Cartridge 6 Unit SQ TIDAC Calcium Acetate 667 Mg Tablet 2 Cap PO TIDAC Vitals/I & O Vital Sign - Last 24 Hours 02/18/20 02/18/20 02/18/20 02/18/20 14:15 19:00 20:00 20:36 Temp 97.9 98.1 97.9 98.1 Pulse 75 76 75 Resp 18 18 B/P (MAP) 138/52 (80) 151/58 (89) 138/52 Pulse Ox 94 97 O2 Delivery Room Air Room Air Room Air 02/18/20 02/19/20 02/19/20 02/19/20 23:00 03:00 07:00 07:44 Temp 98.3 98.3 98.0 98.3 98.3 98.0 Pulse 65 67 68 68 Resp 18 18 18 B/P (MAP) 123/42 (69) 122/44 (70) 134/47 (76) 134/47 Pulse Ox 96 94 98 O2 Delivery Room Air Room Air Room Air 02/19/20 02/19/20 08:00 10:40 Temp 98.0 98.0 Pulse 72 Resp 17 B/P (MAP) 151/63 (92) Pulse Ox 94 O2 Delivery Room Air Room Air Intake and Output 02/18/20 02/18/20 02/19/20 15:00 23:00 07:00 Intake Total 440 ml 300 ml Balance 440 ml 300 ml Justicifation of Admission Dx: Justifications for Admission: Justification of Admission Dx: Yes CHF: Cardiac Arrhythmias Altered Mental Status: Altered Mental Status 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
[2020-02-19 14:53] VITALS: BP 143/52
[2020-02-19] MEDS ORDERED: WARFARIN 5 MG TABLET. PO ONE (16:00)
--- NOTE | 2020-02-19 16:31 | NUR ---
Wound Care Wound Type/Assessment: Left plantar foot, DFU. Pt is currently being treated in [facility] by Dr Jordan. Wound appears the same as when seen in clinic last week. See assessment. Treatment Recommendations/Plan: Will hold off on placing vac until results of MRI are known to see if pt needs surgery. Packed with iodoform gauze packing and covered with gauze and tape, change every other day. Education provided: PU prevention and WC POC. Offloading surface/device: half shoe Recommended Referrals/Tests: MRI Discharge Recommendations for dressings: Will reassess after MRI.
[2020-02-19] MEDS: CEFEPIME HCL IV Push 1 GM VIAL. IVP SCH (17:06)
[2020-02-19 19:00] VITALS: BP 142/53
[2020-02-19] MEDS: INSULIN GLARGINE SYRINGE. SQ SCH (21:00)
[2020-02-19] MEDS: SIMVASTATIN 40 MG TABLET. PO SCH (21:49)
[2020-02-19 23:00] VITALS: BP 146/63
[2020-02-20 03:00] VITALS: BP 135/50
[2020-02-20] MEDS: hydrOXYzine 10 MG TABLET PO PRN (04:42)
[2020-02-20] MEDS ORDERED: VANCOMYCIN RANDOM LEVEL. MC ONE (06:00)
[2020-02-20 06:29] LABS: PROTHROMBIN TIME PATIENT 18.8 SEC (11.7-14.0)
[2020-02-20 06:34] LABS: CALCIUM 8.8 mg/dL (8.5-10.1); CREATININE 6.9 mg/dL (0.6-1.0); GFR 5.8
[2020-02-20 07:04] VITALS: BP 128/49
[2020-02-20] MEDS: INSULIN LISPRO 300 UNITS/3 ML VIAL. SQ SCH ×2 (07:30→13:49)
[2020-02-20] MEDS: FOLIC/VIT B COMP W-C (RENAL) TABLET. PO SCH (08:05)
[2020-02-20] MEDS: LACTOBACILLUS RHAMNOSUS GG 1 CAPSULE. PO SCH (08:05)
[2020-02-20] MEDS: THYROID,PORK 60 MG TABLET PO SCH (08:05)
[2020-02-20] MEDS: CALCIUM ACETATE 667 MG CAPSULE PO SCH ×2 (08:05→13:38)
[2020-02-20] MEDS ORDERED: IV NORMAL SALINE 1000ML BAG 1,000 ML IV PRN ×2 (08:23)
[2020-02-20] MEDS ORDERED: ALBUMIN HUMAN 25% 200 ML IV PRN (08:30)
[2020-02-20] MEDS ORDERED: DIALYSIS PATIENT. MC PRN (08:30)
--- NOTE | 2020-02-20 09:02 | PDOC ---
PROGRESS NOTES Chief Complaint Chief Complaint A/P: Acute encephalopathy - in patient with h/o MDRO UTI and recent bone culture positive and elevated blood pressure looks to be toxic and metabolic encephalopathy HTN urgency - will restart meds. PRN hydralazine ESRD oN HD - consult nephrology Paroxysmal Afib - on warfarin and amiodarone Acute encephalopathy - unlikely UTI given her ESRD status Left foot diabetic infection, osteomyelitis based on op-report with purulent drainage and previous wound infection, chronic callus on plantar foot, Surface swab cultures polymicrobial organism Cultures positive for Bacteroides, Proteus, E. coli, enterococcus 12/24 Status post incision and drainage December 29, 2019 - bone cult 12/28 with Enterococcus Avium Diabetes mellitus - sliding scale + lantus PVD s/p angioplasty 12/26 on Left polpliteal - post tib with chronic total occlusion Thrombocytopenia - will monitor. Previously noted in July 2019, resolved since Anemia - of chronic renal disease, macrocytosis noted, B12 in 500s Hypothyroidism - with elevated TSH 13, will cont levothyroxine History of Present Illness History of Present Illness Ms Beach is a 79yo F w/ PMHx ESRD on HD, coronary artery disease and paroxysmal atrial fibrillation presented with feeling badly. She was recently seen a month ago for LLE infection with osteomyelitis and has significant weakness and confusion now. Confused for the past few days, so weak now is unable to ambulate. CT head negative for acute abnormality. Labs consistent with ESRD, weak, pruritic Admitted for further treatment. Consults: Nephrology, Infectious diseases 02/17: Back to her normal mental status today. Labs consistent with ESRD. Blood culture negative so far. No SOB or CP. Left foot wound still deep, slowly healing, concerning for bone involvement. On cefepime and vancomycin for 2 weeks due to slow wound healing and f/u with ID and vascular surgery. She is itching, asking for benadryl. US with no occlusive disease, but no visualization of posterior tibial artery on left. 02/18: Overnight no events. No nausea vomiting diarrhea chest pain shortness of breath. Itching improved with eucerin. She is amenable to SNF placement for rehab now, I will call her daughter, Daniella to discuss. Seen after dialysis. MRI scheduled for outpatient. She and her daughter have decided against going to a facility due to concerns for COVID 19 potential exposure. Vitals Vitals Vital Signs Date Time Temp Pulse Resp B/P (MAP) Pulse Ox O2 Delivery O2 Flow Rate FiO2 02/20/20 08:00 Room Air 02/20/20 07:04 98.2 66 18 128/49 (75) 97 98.2 Physical Exam Physical Exam Patient is comfortable not in distress. HEENT normal Neck supple Lungs clear Heart S1-S2 regular Abdomen soft nontender no organomegaly Extremities no edema or cyanosis Skin examination is unremarkable Foot has a wound small opening but deep to the bone no surrounding erythema has not improved since now she is on at least 4 weeks of IV antibiotic [employer] no focal deficit General: Alert, Oriented X3, Cooperative, No acute distress Heart: Regular rate Lungs: Clear Abdomen: Normal bowel sounds, Soft, No tenderness Extremities: No cyanosis, Other (She has a 2+ DP pulse on the left. She has an easily palpable thrill through her left upper arm HD Access.) Skin: Other (Small wound on the plantar surface of her left foot between the second and third met head. This palpates deep to bone. There is no purulent or malodorous drainage. Periwound is intact and clean.) Labs LABS Laboratory Tests Test 02/19/20 11:08 02/19/20 16:34 02/19/20 21:12 02/20/20 06:06 Glucose (Fingerstick) 165 mg/dL (70-99) 102 mg/dL (70-99) 214 mg/dL (70-99) Prothrombin Time 18.8 SEC (11.7-14.0) Prothromb Time International Ratio 1.6 (0.8-1.1) Sodium Level 134 mmol/L (136-145) Potassium Level 5.0 mmol/L (3.5-5.1) Chloride Level 95 mmol/L (98-107) Carbon Dioxide Level 24 mmol/L (21-32) Anion Gap 15 (6-14) Blood Urea Nitrogen 56 mg/dL (7-20) Creatinine 6.9 mg/dL (0.6-1.0) Estimated GFR (Cockcroft-Gault) 5.8 Glucose Level 153 mg/dL (70-99) Calcium Level 8.8 mg/dL (8.5-10.1) Random Vancomycin Level 25.3 mcg/mL Test 02/20/20 07:06 Glucose (Fingerstick) 143 mg/dL (70-99) Assessment and Plan Assessmemt and Plan Problems Medical Problems: (1) UTI (urinary tract infection) Status: Acute (2) Weakness Status: Acute Comment Review of Relevant I have reviewed the following items anastasiya (where applicable) has been applied. Labs Laboratory Tests Test 02/18/20 11:12 02/18/20 19:12 02/18/20 21:04 02/19/20 05:45 Glucose (Fingerstick) 136 mg/dL (70-99) 128 mg/dL (70-99) 243 mg/dL (70-99) Prothrombin Time 18.5 SEC (11.7-14.0) Prothromb Time International Ratio 1.6 (0.8-1.1) C-Reactive Protein, Quantitative 15.0 mg/L (0-3.3) Test 02/19/20 07:00 02/19/20 11:08 02/19/20 16:34 02/19/20 21:12 Glucose (Fingerstick) 139 mg/dL (70-99) 165 mg/dL (70-99) 102 mg/dL (70-99) 214 mg/dL (70-99) Test 02/20/20 06:06 02/20/20 07:06 Prothrombin Time 18.8 SEC (11.7-14.0) Prothromb Time International Ratio 1.6 (0.8-1.1) Sodium Level 134 mmol/L (136-145) Potassium Level 5.0 mmol/L (3.5-5.1) Chloride Level 95 mmol/L (98-107) Carbon Dioxide Level 24 mmol/L (21-32) Anion Gap 15 (6-14) Blood Urea Nitrogen 56 mg/dL (7-20) Creatinine 6.9 mg/dL (0.6-1.0) Estimated GFR (Cockcroft-Gault) 5.8 Glucose Level 153 mg/dL (70-99) Calcium Level 8.8 mg/dL (8.5-10.1) Random Vancomycin Level 25.3 mcg/mL Glucose (Fingerstick) 143 mg/dL (70-99) Laboratory Tests Test 02/19/20 11:08 02/19/20 16:34 02/19/20 21:12 02/20/20 06:06 Glucose (Fingerstick) 165 mg/dL (70-99) 102 mg/dL (70-99) 214 mg/dL (70-99) Prothrombin Time 18.8 SEC (11.7-14.0) Prothromb Time International Ratio 1.6 (0.8-1.1) Sodium Level 134 mmol/L (136-145) Potassium Level 5.0 mmol/L (3.5-5.1) Chloride Level 95 mmol/L (98-107) Carbon Dioxide Level 24 mmol/L (21-32) Anion Gap 15 (6-14) Blood Urea Nitrogen 56 mg/dL (7-20) Creatinine 6.9 mg/dL (0.6-1.0) Estimated GFR (Cockcroft-Gault) 5.8 Glucose Level 153 mg/dL (70-99) Calcium Level 8.8 mg/dL (8.5-10.1) Random Vancomycin Level 25.3 mcg/mL Test 02/20/20 07:06 Glucose (Fingerstick) 143 mg/dL (70-99) Microbiology 02/17/20 Urine Culture - Final, Complete Medications Current Medications Diphenhydramine HCl (Benadryl) 25 mg 1X ONCE IVP Last administered on 02/17/20at 09:11; Start 02/17/20 at 08:30; Stop 02/17/20 at 08:31; Status DC Ceftriaxone Sodium (Rocephin) 1 gm 1X ONCE IVP Last administered on 02/17/20at 10:41; Start 02/17/20 at 10:30; Stop 02/17/20 at 10:31; Status DC Ondansetron HCl (Zofran) 4 mg PRN Q8HRS PRN IV NAUSEA/VOMITING; Start 02/17/20 at 10:30; Stop 02/18/20 at 10:29; Status DC Fentanyl Citrate (Fentanyl 2ml Vial) 50 mcg PRN Q1HR PRN IV PAIN; Start 02/17/20 at 10:30; Stop 02/18/20 at 10:29; Status DC Acetaminophen (Tylenol) 650 mg PRN Q4HRS PRN PO FEVER > 100.3'F; Start 02/17/20 at 10:30; Stop 02/18/20 at 10:29; Status DC Thyroid (Malone Thyroid) 30 mg DAILY PO ; Start 02/17/20 at 12:00 Acetaminophen/ Hydrocodone Bitart (Lortab 7.5/325) 1 tab PRN Q4HRS PRN PO PAIN MILD TO MODERATE; Start 02/17/20 at 12:00 Lactobacillus Rhamnosus (Culturelle) 1 cap BID PO Last administered on 02/20/20at 08:05; Start 02/17/20 at 21:00 Metoprolol Tartrate (Lopressor) 50 mg BID PO Last administered on 02/19/20at 21:49; Start 02/17/20 at 13:00 Polyethylene Glycol (miraLAX PACKET) 17 gm PRN DAILY PRN PO CONSTIPATION; Start 02/17/20 at 12:00 Simvastatin (Zocor) 40 mg QHS PO Last administered on 02/19/20at 21:49; Start 02/17/20 at 21:00 Warfarin Sodium (Coumadin) 3 mg 1X WARF ONCE PO Last administered on 02/17/20at 16:30; Start 02/17/20 at 16:00; Stop 02/17/20 at 16:01; Status DC Calcium Acetate (Phoslo) 1,334 mg TIDWMEALS PO Last administered on 02/20/20at 08:05; Start 02/17/20 at 12:00 Insulin Human Lispro (HumaLOG) 6 units TIDAC SQ Last administered on 02/19/20at 12:27; Start 02/17/20 at 17:00 Insulin Glargine (Lantus Syringe) 6 unit QHS SQ ; Start 02/17/20 at 21:00 Non-Formulary Medication (Thyroid,Pork (Malone Thyroid)) 1 tab DAILY PO ; Start 02/18/20 at 09:00; Stop 02/17/20 at 12:13; Status DC Vitamin B Complex/ Vitamin C (Funmi-Hannah) 1 tab DAILY PO Last administered on 02/20/20at 08:05; Start 02/17/20 at 13:00 Warfarin Sodium (Coumadin Per Pharmacy) 1 each PRN DAILY PRN MC SEE COMMENTS Last administered on 02/19/20at 11:35; Start 02/17/20 at 12:15 Vancomycin HCl (Vanco Per Pharmacy) 1 each PRN DAILY PRN MC SEE COMMENTS Last administered on 02/19/20at 11:42; Start 02/17/20 at 13:00 Cefepime HCl (Maxipime) 1 gm Q24H IVP Last administered on 02/19/20at 17:06; Start 02/17/20 at 14:00 Vancomycin HCl 1.5 gm/Sodium Chloride 500 ml @ 250 mls/hr 1X ONCE IV Last administered on 02/17/20at 13:39; Start 02/17/20 at 13:30; Stop 02/17/20 at 15:29; Status DC Vancomycin HCl (Vancomycin Random Level) 1 each 1X ONCE MC Last administered on 02/20/20at 06:00; Start 02/20/20 at 06:00; Stop 02/20/20 at 06:01; Status DC Diphenhydramine HCl (Benadryl) 25 mg PRN Q6HRS PRN PO ITCHING Last administered on 02/18/20at 10:02; Start 02/17/20 at 16:30; Stop 02/18/20 at 10:45; Status DC Hydroxyzine HCl (Atarax) 10 mg PRN Q6HRS PRN PO ITCHING Last administered on 02/20/20at 04:42; Start 02/18/20 at 10:45 Multi-Ingredient Ointment (Hydrocerin Cream) 1 scotty PRN Q1HR PRN TP DRY SKIN / SCALING Last administered on 02/18/20at 20:36; Start 02/18/20 at 11:15 Warfarin Sodium (Coumadin) 4 mg 1X WARF ONCE PO Last administered on 02/18/20at 19:19; Start 02/18/20 at 16:00; Stop 02/18/20 at 16:01; Status DC Sodium Chloride 1,000 ml @ 1,000 mls/hr Q1H PRN IV hypotension; Start 02/18/20 at 13:51; Stop 02/18/20 at 19:50; Status DC Albumin Human 200 ml @ 200 mls/hr 1X PRN PRN IV Hypotension; Start 02/18/20 at 14:00; Stop 02/18/20 at 19:59; Status DC Sodium Chloride 1,000 ml @ 400 mls/hr Q2H30M PRN IV PATENCY; Start 02/18/20 at 13:51; Stop 02/19/20 at 01:50; Status DC Info (PHARMACY MONITORING -- do not chart) 1 each PRN DAILY PRN MC SEE COMMENTS; Start 02/18/20 at 14:00; Stop 02/18/20 at 14:06; Status DC Info (PHARMACY MONITORING -- do not chart) 1 each PRN DAILY PRN MC SEE COMMENTS; Start 02/18/20 at 14:00 Warfarin Sodium (Coumadin) 5 mg 1X WARF ONCE PO Last administered on 02/19/20at 17:06; Start 02/19/20 at 16:00; Stop 02/19/20 at 16:01; Status DC Sodium Chloride 1,000 ml @ 1,000 mls/hr Q1H PRN IV hypotension; Start 02/20/20 at 08:23; Stop 02/20/20 at 14:22 Albumin Human 200 ml @ 200 mls/hr 1X PRN PRN IV Hypotension; Start 02/20/20 at 08:30; Stop 02/20/20 at 14:29 Sodium Chloride 1,000 ml @ 400 mls/hr Q2H30M PRN IV PATENCY; Start 02/20/20 at 08:23; Stop 02/20/20 at 20:22 Info (PHARMACY MONITORING -- do not chart) 1 each PRN DAILY PRN MC SEE COMMENTS; Start 02/20/20 at 08:30; Stop 02/20/20 at 08:30; Status DC Active Scripts Active Levothyroxine Sodium 75 Mcg Tablet 75 Mcg PO DAILY06 90 Days Antifungal Cream (Miconazole Nitrate) 14 Gm Cream..g. 1 Scotty TP BID 7 Days Vancomycin HCl 250 Mg Vial 500 Mg IV MWF 14 Days [Cefepime Hcl] 1 GM Vial 3 Gm IVP Q24H 14 Days Culturelle (Lactobacillus Rhamnosus Gg) 1 Each Cap.sprink 1 Cap PO BID 30 Days Polyethylene Glycol 3350 17 Gm Powd.pack 17 Gm PO PRN DAILY PRN 30 Days Amiodarone Hcl 200 Mg Tablet 200 Mg PO DAILY 30 Days Coumadin (Warfarin Sodium) 3 Mg Tablet 3 Mg PO 1X WARF 30 Days Hydrocodone-Apap 7.5-325 (Hydrocodone Bit/Acetaminophen) 1 Tab Tablet 1 Tab PO PRN Q4HRS PRN 6 Days Lantus Solostar (Insulin Glargine,Hum.rec.anlog) 100 Unit/1 Ml Insuln.pen 10 Unit SQ QHS Reported Lantus Solostar (Insulin Glargine,Hum.rec.anlog) 100 Unit/1 Ml Insuln.pen 6 Unit SQ HS Angie Thyroid (Thyroid,Pork) 30 Mg Tablet 1 Tab PO DAILY Simvastatin 40 Mg Tablet 1 Tab PO QHS Metoprolol Tartrate 50 Mg Tablet 1 Tab PO BID Funmi-Hannah Rx Tablet (Vit B Cmplx 3/Fa/Vit C/Biotin) 1 Each Tablet 1 Each PO DAILY Novolog (Insulin Aspart) 100 Unit/1 Ml Cartridge 6 Unit SQ TIDAC Calcium Acetate 667 Mg Tablet 2 Cap PO TIDAC Vitals/I & O Vital Sign - Last 24 Hours 02/19/20 02/19/20 02/19/20 02/19/20 10:40 14:53 19:00 20:00 Temp 98.0 98.0 98.1 98.0 98.0 98.1 Pulse 72 67 76 Resp 17 18 18 B/P (MAP) 151/63 (92) 143/52 (82) 142/53 (82) Pulse Ox 94 95 93 O2 Delivery Room Air Room Air Room Air Room Air 02/19/20 02/19/20 02/20/20 02/20/20 21:49 23:00 03:00 07:04 Temp 98.2 98.2 98.2 98.2 98.2 98.2 Pulse 76 72 68 66 Resp 18 18 18 B/P (MAP) 142/53 146/63 (90) 135/50 (78) 128/49 (75) Pulse Ox 99 96 97 O2 Delivery Room Air Room Air Room Air 02/20/20 08:00 O2 Delivery Room Air Intake and Output 02/19/20 02/19/20 02/20/20 15:00 23:00 07:00 Intake Total 640 ml 600 ml 0 ml Balance 640 ml 600 ml 0 ml ITA MOSQUEDA MD Feb 20, 2020 09:02
--- NOTE | 2020-02-20 09:52 | PDOC ---
Infectious Disease Note Subjective Subjective Patient is feeling fine no complaints ROS ROS No nausea vomiting diarrhea chest pain shortness of breath Vital Sign Vital Signs Vital Signs Date Time Temp Pulse Resp B/P (MAP) Pulse Ox O2 Delivery O2 Flow Rate FiO2 02/20/20 08:00 Room Air 02/20/20 07:04 98.2 66 18 128/49 (75) 97 98.2 Physical Exam PHYSICAL EXAM Patient is comfortable not in distress. HEENT normal Neck supple Lungs clear Heart S1-S2 regular Abdomen soft nontender no organomegaly Extremities no edema or cyanosis Skin examination is unremarkable Foot has a wound small opening but deep to the bone no surrounding erythema has not improved since now she is on at least 4 weeks of IV antibiotic [employer] no focal deficit Labs Lab Laboratory Tests Test 02/19/20 11:08 02/19/20 16:34 02/19/20 21:12 02/20/20 06:06 Glucose (Fingerstick) 165 mg/dL (70-99) 102 mg/dL (70-99) 214 mg/dL (70-99) Prothrombin Time 18.8 SEC (11.7-14.0) Prothromb Time International Ratio 1.6 (0.8-1.1) Sodium Level 134 mmol/L (136-145) Potassium Level 5.0 mmol/L (3.5-5.1) Chloride Level 95 mmol/L (98-107) Carbon Dioxide Level 24 mmol/L (21-32) Anion Gap 15 (6-14) Blood Urea Nitrogen 56 mg/dL (7-20) Creatinine 6.9 mg/dL (0.6-1.0) Estimated GFR (Cockcroft-Gault) 5.8 Glucose Level 153 mg/dL (70-99) Calcium Level 8.8 mg/dL (8.5-10.1) Random Vancomycin Level 25.3 mcg/mL Test 02/20/20 07:06 Glucose (Fingerstick) 143 mg/dL (70-99) Micro Microbiology 02/17/20 Urine Culture - Final, Complete Objective Assessment Questionable UTI/colonization Foot wound on antibiotics for now at least 4 weeks and still not improving probably will need resection End-stage renal disease on hemodialysis Plan Plan of Care Continue antibiotics through dialysis Continue wound VAC Vascular surgery input appreciated MRI outpatient Patient can be discharged and have follow-up with me in 2 weeks ANA CRISTINA العلي MD Feb 20, 2020 09:52
--- NOTE | 2020-02-20 10:13 | NUR ---
TADEO following. Discussed with RN. TADEO spoke with pt's daughter, Daniella to determine how conversation with pt went yesterday. Daniella advised pt agreed to work with therapy at home with [facility]. TADEO notified Dr. Keene. TADEO will continue to follow - pt's daughter can pick pt up today if pt is discharging. Addendum: 02/20/20 at 1445 by MARITA PIEDRA Pt discharging home with [facility]. Clinicals and discharge orders faxed to [facility]. TADEO to notify [facility] of pt discharging today.
[2020-02-20] MEDS: VANCOMYCIN PER PHARMACY MC PRN (11:59)
--- NOTE | 2020-02-20 12:02 | NUR ---
Pharmacy Warfarin Dosing Note S:Pharmacy consulted to assist with anticoagulation therapy started with target INR: 2 -3 O:BRYANT LOCKHART is a 79 year old F with Atrial Fibrillation LABS: Last INR: 1.6 Last HGB: 10.7 Last HCT: 31.9 Last PLT: 108 Last dose of 4 mg given on 02/18/20 at 1630 Previous Regimen: Vitamin K given: Drug Interaction Changes: Ongoing Drug Interactions: A:INR of 1.6 is below desired range. Target range for this patient is: 2 -3 P: Warfarin dose: 6 mg Today at 1400 Bridge Therapy: Next INR due IN AM Pharmacy anticoagulation service will continue to follow. JOSE BAKER [facility], 02/20/20 1206
--- NOTE | 2020-02-20 12:03 | NUR ---
Pharmacy Vancomycin Dosing Note S:Consulted to monitor and dose vancomycin started 02/17/20. O:BRYANT LOCKHART is a 79 year old F with Cellulitis . Height: 5 feet, 4 inches Weight: 67.9 kg [place] Body Weight: 54.70 Adjusted Body Weight: 59.98 Dosing Weight: Actual Other Antibiotics: CEFEPIME LABS: Last BUN: 63 Last Creatinine: 7.8 Creatinine Clearance: 11 mL/min Last WBC: 5.3 Last Procalcitonin: Tmax (past 24 hours): Microbiology: I/O: 440/3 Drug Levels: Last Random level: 25.3 on 02/20/20 at 0600 Last dose given 02/17/20 at 1339 Vancomycin Dosing: Loading Dose: 1500 mg x1 Dosing Weight: Actual Target Trough: 10-20 A: Based on: PRE-DIALYSIS LEVEL, POST DIALYSIS WOULD BE AROUND 19 P: 1. Hold Vancomycin IV AT THIS TIME, MAY NEED REDOSE AFTER DIALYSIS ON TUESDAY 2. Follow up Random level NEEDED. 3. Pharmacy will continue to monitor, follow and adjust therapy as needed. JOSE BAKER [facility], 02/20/20 1296
[2020-02-20] MEDS: METOPROLOL TART IMMED RELEASE 50 MG TABLET. PO SCH (13:38)
[2020-02-20] MEDS: CEFEPIME HCL IV Push 1 GM VIAL. IVP SCH (13:39)
[2020-02-20] MEDS ORDERED: VANC250V IV (13:52)
[2020-02-20] MEDS ORDERED: CEFEPIME HCL IVP (13:52)
[2020-02-20] MEDS ORDERED: MINE454C9 TP (13:52)
--- NOTE | 2020-02-20 13:54 | PDOC ---
Renal-Progress Notes Subjective Notes Notes NO NEW COMPLAINTS History of Present Illness Hx of present illness STABLE Vitals Vitals Vital Signs Date Time Temp Pulse Resp B/P (MAP) Pulse Ox O2 Delivery O2 Flow Rate FiO2 02/20/20 13:38 66 128/49 02/20/20 08:00 Room Air 02/20/20 07:04 98.2 18 97 98.2 Weight Weight [ ] I.O. Intake and Output Intake and Output 02/20/20 07:00 Intake Total 1240 ml Balance 1240 ml Intake Oral 1240 ml # Voids 1 Labs Labs Laboratory Tests Test 02/19/20 16:34 02/19/20 21:12 02/20/20 06:06 02/20/20 07:06 Glucose (Fingerstick) 102 mg/dL (70-99) 214 mg/dL (70-99) 143 mg/dL (70-99) Prothrombin Time 18.8 SEC (11.7-14.0) Prothromb Time International Ratio 1.6 (0.8-1.1) Sodium Level 134 mmol/L (136-145) Potassium Level 5.0 mmol/L (3.5-5.1) Chloride Level 95 mmol/L (98-107) Carbon Dioxide Level 24 mmol/L (21-32) Anion Gap 15 (6-14) Blood Urea Nitrogen 56 mg/dL (7-20) Creatinine 6.9 mg/dL (0.6-1.0) Estimated GFR (Cockcroft-Gault) 5.8 Glucose Level 153 mg/dL (70-99) Calcium Level 8.8 mg/dL (8.5-10.1) Random Vancomycin Level 25.3 mcg/mL Test 02/20/20 13:16 Glucose (Fingerstick) 155 mg/dL (70-99) Micro Micro Microbiology 02/17/20 Urine Culture - Final, Complete Review of Systems Constitutional: yes: weakness, alert, other (CONFUSED) Ears/Nose/Throat: Yes: no symptom reported Eyes: Yes: no symptom reported Pulmonary: Yes no symptom reported Cardiovascular: Yes no symptom reported Gastrointestional: Yes: no symptom reported Genitourinary: Yes: no symptom reported Musculoskeletal: Yes: no symptom reported Skin: Yes no symptom reported Psychiatric/Neurological: Yes: no symptom reported Endocrine: Yes: no symptom reported Physical Exam General Appearance: no apparent distress Skin: warm Respiratory: bilateral CTA Heart: S1S2 Abdomen: soft, bowel sounds present Genitourinary: bladder flat Extremities: pulses present Neurology: alert, confused Assessment Assessment IMP ESRD-MWF ENCEPHALOPATHY-RESOLVED DECONDITIONING DM II DM II RELATED L FOOT INFECTION AND OSTEO RECURRENT UTI VS COLONIZATION HX OF AFIB LEFT PLANTAR FOOT WOUND-?OSTEOMYELITIS PLAN ANTIBIOTICS HD TODAY UF TO DW BIJAN NEEDED ID EVAL AND TX MAY NEED RESECTION WILL FOLLOW MELONIE GUAMAN MD Feb 20, 2020 13:54
--- NOTE | 2020-02-20 13:57 | SNU/HH DC ---
DISCHARGE WITH HOME HEALTH DISCHARGE INFORMATION: Discharge Date: Feb 20, 2020 Final Diagnosis: Problems Medical Problems: (1) UTI (urinary tract infection) Status: Acute (2) Weakness Status: Acute Condition on Discharge: Stable CODE STATUS: Code Status: Full HOME HEALTH: Face to Face: I certify this patient is under my care and that I, or a nurse practitioner or physician's assistant wrestling coach working with me, had a face to face encounter that meets the physician face to face encounter requirements with this patient on 02/20/2020. Medical Complications: DM Residential For: Admin/Educate Injections, Diabetic Care, Medication Management RN For Eval/Treatment: Yes Physical Therapy For: Evalulation/Treatment Occupational Therapy For: Evaluation/Treatment HARDBOARD SUPERVISOR For: Community Resources Pt Meets Homebound Status: Extreme weakness w/ amb. POST DISCHARGE ORDERS: Activity Instructions for Disc: Activity as tolerated Weight Bearing Status after Di: As tolerated Bathing Instructions: Shower-keep dressing dry DIET AFTER DISCHARGE: ADA Wound/Incision Care: Reinforce dressing PRN CHECKS AFTER DISCHARGE: Checks after discharge: Check blood sugar, ac/hs FOLLOW-UP: Follow Up With: Follow-up with ID in 2 weeks Warfarin Follow UP: INR weekly, goal 2-3 Additional Instructions: Cefepime 1g MWF, vancomycin 250mg MWF at dialysis TREATMENT/EQUIPMENT ORDERS: Adaptive Equipment Issued: None CERTIFICATION STATEMENT: Certification Statement: Certification Statement: Based on the above finding, I certify that this patient is confined to the home and needs intermittent senior living care, physical therapy and/or speech therapy, or continues to need occupational therapy.~ This patient is under my care, and I have initiated the establishment of the plan of care.~ This patient will be followed by myself or a community physician who will periodically review the plan of care. Home Meds Active Scripts Lanolin Alcohol/Mo/W.pet/[place] (Hydrocerin Cream) 454 Gm Cream..g., 1 ODILIA TP PRN Q1HR PRN for DRY SKIN / SCALING for 30 Days, #450 G Prov:ITA MOSQUEDA MD 02/20/20 [CEFEPIME HCL IV Push] 1 GM VIAL No Conflict Check, 1 GM IVP QMWF for 14 Days, #14 EACH Prov:ITA MOSQUEDA MD 02/20/20 Vancomycin HCl (Vancomycin HCl) 250 Mg Vial, 500 MG IV MWF for INFECTION for 14 Days, #6 EACH Prov:ITA MOSQUEDA MD 02/20/20 Levothyroxine Sodium (LEVOTHYROXINE SODIUM) 75 Mcg Tablet, 75 MCG PO DAILY06 for Hypothyroidism for 90 Days, #90 TAB Prov:ITA MOSQUEDA MD 02/06/20 Miconazole Nitrate (ANTIFUNGAL CREAM) 14 Gm Cream..g., 1 ODILIA TP BID for Intertrigo for 7 Days, #14 EACH Prov:ITA MOSQUEDA MD 02/06/20 Lactobacillus Rhamnosus Gg (CULTURELLE) 1 Each Cap.sprink, 1 CAP PO BID for SUPPLEMENT for 30 Days, #60 CAP Prov:FLORI DAVIES MD 01/04/20 Polyethylene Glycol 3350 (POLYETHYLENE GLYCOL 3350) 17 Gm Powd.pack, 17 GM PO PRN DAILY PRN for CONSTIPATION for 30 Days, #60 PKT Prov:FLORI DAVIES MD 01/04/20 Amiodarone Hcl (AMIODARONE HCL) 200 Mg Tablet, 200 MG PO DAILY for Afib for 30 Days, #30 TAB Prov:ITA MOSQUEDA MD 08/08/19 Warfarin Sodium (COUMADIN) 3 Mg Tablet, 3 MG PO 1X WARF for Afib/Hip PPX for 30 Days, #30 TAB Prov:ITA MOSQUEDA MD 08/08/19 Hydrocodone Bit/Acetaminophen (HYDROCODONE-APAP 7.5-325 ) 1 Tab Tablet, 1 TAB PO PRN Q4HRS PRN for PAIN for 6 Days, #15 TAB Prov:ITA MOSQUEDA MD 08/08/19 Reported Medications Insulin Glargine,Hum.rec.anlog (LANTUS SOLOSTAR) 100 Unit/1 Ml Insuln.pen, 6 UNIT SQ HS for DM, SYR 02/17/20 Simvastatin (SIMVASTATIN) 40 Mg Tablet, 1 TAB PO QHS for hld, #30 TAB 5 Refills 08/04/19 Metoprolol Tartrate (METOPROLOL TARTRATE) 50 Mg Tablet, 1 TAB PO BID for Afib, #60 TAB 5 Refills 07/07/19 Vit B Cmplx 3/Fa/Vit C/Biotin (MARY ANN-AMRIK RX TABLET) 1 Each Tablet, 1 EACH PO DAILY for dialysis, TAB 12/21/18 Insulin Aspart (NOVOLOG) 100 Unit/1 Ml Cartridge, 6 UNIT SQ TIDAC for DM, EACH 07/19/18 Calcium Acetate (CALCIUM ACETATE) 667 Mg Tablet, 2 CAP PO TIDAC for phosphate binder 07/03/18 Discontinued Reported Medications Thyroid,Pork (ARMOUR THYROID) 30 Mg Tablet, 1 TAB PO DAILY for HYPOTHYROID , #30 TAB 5 Refills 02/17/20 Aspirin (ASPIR 81) 81 Mg Tablet.dr, 1 TAB PO DAILY08 for heart health, #30 TAB 5 Refills 06/03/14 Discontinued Scripts [Cefepime Hcl] 1 GM VIAL No Conflict Check, 3 GM IVP Q24H for OSTEOMYELITIS for 14 Days, #42 EACH Prov:ITA MOSQUEDA MD 02/06/20 Insulin Glargine,Hum.rec.anlog (LANTUS SOLOSTAR) 100 Unit/1 Ml Insuln.pen, 10 UNIT SQ QHS for DM, #15 ML 3 Refills Prov:ITA MOSQUEDA MD 08/08/19 ITA MOSQUEDA MD Feb 20, 2020 13:57
[2020-02-20] MEDS ORDERED: WARFARIN 3 MG TABLET. PO ONE (14:00)
--- NOTE | 2020-02-20 14:11 | PDOC3 ---
Discharge Summary Visit Information Date of Admission: Feb 17, 2020 Date of Discharge: Feb 20, 2020 Admitting Diagnosis: UTI Final Diagnosis Problems Medical Problems: (1) UTI (urinary tract infection) Status: Acute (2) Weakness Status: Acute Brief Hospital Course Allergies Allergies Coded Allergies Type Severity Reaction Last Updated Verified latex Allergy Intermediate Rash 12/30/17 Yes sulfamethoxazole Allergy Intermediate Hives 08/05/19 Yes trimethoprim Allergy Intermediate Hives 08/05/19 Yes Vital Signs Vital Signs Date Time Temp Pulse Resp B/P (MAP) Pulse Ox O2 Delivery O2 Flow Rate FiO2 02/20/20 13:38 66 128/49 02/20/20 08:00 Room Air 02/20/20 07:04 98.2 18 97 98.2 Lab Results Laboratory Tests Test 02/18/20 19:12 02/18/20 21:04 02/19/20 05:45 02/19/20 07:00 Glucose (Fingerstick) 128 mg/dL (70-99) 243 mg/dL (70-99) 139 mg/dL (70-99) Prothrombin Time 18.5 SEC (11.7-14.0) Prothromb Time International Ratio 1.6 (0.8-1.1) C-Reactive Protein, Quantitative 15.0 mg/L (0-3.3) Vitamin B12 Level 533 pg/mL (247-911) Test 02/19/20 11:08 02/19/20 16:34 02/19/20 21:12 02/20/20 06:06 Glucose (Fingerstick) 165 mg/dL (70-99) 102 mg/dL (70-99) 214 mg/dL (70-99) Prothrombin Time 18.8 SEC (11.7-14.0) Prothromb Time International Ratio 1.6 (0.8-1.1) Sodium Level 134 mmol/L (136-145) Potassium Level 5.0 mmol/L (3.5-5.1) Chloride Level 95 mmol/L (98-107) Carbon Dioxide Level 24 mmol/L (21-32) Anion Gap 15 (6-14) Blood Urea Nitrogen 56 mg/dL (7-20) Creatinine 6.9 mg/dL (0.6-1.0) Estimated GFR (Cockcroft-Gault) 5.8 Glucose Level 153 mg/dL (70-99) Calcium Level 8.8 mg/dL (8.5-10.1) Random Vancomycin Level 25.3 mcg/mL Test 02/20/20 07:06 02/20/20 13:16 Glucose (Fingerstick) 143 mg/dL (70-99) 155 mg/dL (70-99) Laboratory Tests Test 02/19/20 16:34 02/19/20 21:12 02/20/20 06:06 02/20/20 07:06 Glucose (Fingerstick) 102 mg/dL (70-99) 214 mg/dL (70-99) 143 mg/dL (70-99) Prothrombin Time 18.8 SEC (11.7-14.0) Prothromb Time International Ratio 1.6 (0.8-1.1) Sodium Level 134 mmol/L (136-145) Potassium Level 5.0 mmol/L (3.5-5.1) Chloride Level 95 mmol/L (98-107) Carbon Dioxide Level 24 mmol/L (21-32) Anion Gap 15 (6-14) Blood Urea Nitrogen 56 mg/dL (7-20) Creatinine 6.9 mg/dL (0.6-1.0) Estimated GFR (Cockcroft-Gault) 5.8 Glucose Level 153 mg/dL (70-99) Calcium Level 8.8 mg/dL (8.5-10.1) Random Vancomycin Level 25.3 mcg/mL Test 02/20/20 13:16 Glucose (Fingerstick) 155 mg/dL (70-99) Brief Hospital Course Ms Beach is a 79yo F w/ PMHx ESRD on HD, coronary artery disease and paroxysmal atrial fibrillation presented with feeling badly. She was recently seen a month ago for LLE infection with osteomyelitis and has significant weakness and confusion now. Confused for the past few days, so weak now is unable to ambulate. CT head negative for acute abnormality. Labs consistent with ESRD, weak, pruritic Admitted for further treatment. Consults: Nephrology, Infectious diseases 02/17: Back to her normal mental status today. Labs consistent with ESRD. Blood culture negative so far. No SOB or CP. Left foot wound still deep, slowly healing, concerning for bone involvement. On cefepime and vancomycin for 2 weeks due to slow wound healing and f/u with ID and vascular surgery. She is itching, asking for benadryl. US with no occlusive disease, but no visualization of posterior tibial artery on left. 02/18: Overnight no events. No nausea vomiting diarrhea chest pain shortness of breath. Itching improved with eucerin. She is amenable to SNF placement for rehab now, I will call her daughter, Daniella to discuss. Seen after dialysis. MRI scheduled for outpatient. She and her daughter have decided against going to a facility due to concerns for COVID 19 potential exposure. Problem list: Acute encephalopathy - in patient with h/o MDRO UTI and recent bone culture positive and elevated blood pressure looks to be toxic and metabolic encephalopathy HTN urgency - will restart meds. PRN hydralazine ESRD oN HD - consult nephrology Paroxysmal Afib - on warfarin and amiodarone Acute encephalopathy - unlikely UTI given her ESRD status Left foot diabetic infection, osteomyelitis based on op-report with purulent drainage and previous wound infection, chronic callus on plantar foot, Surface swab cultures polymicrobial organism Cultures positive for Bacteroides, Proteus, E. coli, enterococcus 12/24 Status post incision and drainage December 29, 2019 - bone cult 12/28 with Enterococcus Avium Diabetes mellitus - sliding scale + lantus PVD s/p angioplasty 12/26 on Left polpliteal - post tib with chronic total occlusion Thrombocytopenia - will monitor. Previously noted in July 2019, resolved since Anemia - of chronic renal disease, macrocytosis noted, B12 in 500s Hypothyroidism - with elevated TSH 13, will cont levothyroxine Greater than 30 minutes spent on d/c home with home health Discharge Information Condition at Discharge: Improved Follow Up: Weeks (1) Disposition/Orders: D/C to Home w/ HH Scheduled Amiodarone Hcl (Amiodarone Hcl) 200 Mg Tablet, 200 MG PO DAILY for Afib for 30 Days, #30 Prescribed by: ITA MOSQUEDA MD on 08/08/19 1540 Calcium Acetate (Calcium Acetate) 667 Mg Tablet, 2 CAP PO TIDAC for phosphate binder, (Reported) Entered as Reported by: MARIYA PEARL on 07/03/18 1019 Last Action: Converted on 02/17/20 1200 by KATHE GARDINER Insulin Aspart (Novolog) 100 Unit/1 Ml Cartridge, 6 UNIT SQ TIDAC for DM, (Reported) Entered as Reported by: SANJANA HOOPER on 07/19/18 1613 Last Action: Converted on 02/17/20 1200 by KATHE GARDINER Insulin Glargine,Hum.rec.anlog (Lantus Solostar) 100 Unit/1 Ml Insuln.pen, 6 UNIT SQ HS for DM, (Reported) Entered as Reported by: KATHE GARDINER on 02/17/20 1127 Last Action: Converted on 02/17/20 1200 by KATHE GARDINER Lactobacillus Rhamnosus Gg (Culturelle) 1 Each Cap.sprink, 1 CAP PO BID for SUPPLEMENT for 30 Days, #60 Prescribed by: FLORI DAVIES MD on 01/04/20 1414 Last Action: Continued on 02/17/20 1200 by KATHE GARDINER Levothyroxine Sodium (Levothyroxine Sodium) 75 Mcg Tablet, 75 MCG PO DAILY06 for Hypothyroidism for 90 Days, #90 Prescribed by: ITA MOSQUEDA MD on 02/06/20 1429 Metoprolol Tartrate (Metoprolol Tartrate) 50 Mg Tablet, 1 TAB PO BID for Afib, #60 Ref 5 (Reported) Entered as Reported by: JUANITA MARTINEZ on 07/07/19 1054 Last Action: Continued on 02/17/20 1200 by KATHE GARDINER Miconazole Nitrate (Antifungal Cream) 14 Gm Cream..g., 1 ODILIA TP BID for Intertrigo for 7 Days, #14 Prescribed by: ITA MOSQUEDA MD on 02/06/20 1429 Simvastatin (Simvastatin) 40 Mg Tablet, 1 TAB PO QHS for hld, #30 Ref 5 (Reported) Entered as Reported by: MARIANNE DE LA GARZA on 08/04/19 1447 Last Action: Continued on 02/17/20 1200 by KATHE GARDINER Vancomycin HCl (Vancomycin HCl) 250 Mg Vial, 500 MG IV MWF for INFECTION for 14 Days, #6 Prescribed by: ITA MOSQUEDA MD on 02/20/20 1352 Vit B Cmplx 3/Fa/Vit C/Biotin (Funmi-Hannah Rx Tablet) 1 Each Tablet, 1 EACH PO DAILY for dialysis, (Reported) Entered as Reported by: ESE VARGAS on 12/21/18 1014 Last Action: Converted on 02/17/20 1200 by KATHE GARDINER Warfarin Sodium (Coumadin) 3 Mg Tablet, 3 MG PO 1X WARF for Afib/Hip PPX for 30 Days, #30 Prescribed by: ITA MOSQUEDA MD on 08/08/19 154 Last Action: Continued on 02/17/20 1200 by KATHE GARDINER [Cefepime Hcl] 1 GM VIAL, 1 GM IVP QMWF for 14 Days, #14 Prescribed by: ITA MOSQUEDA MD on 02/20/20 1352 Scheduled PRN Hydrocodone Bit/Acetaminophen (Hydrocodone-Apap 7.5-325 ) 1 Tab Tablet, 1 TAB PO PRN Q4HRS PRN for PAIN for 6 Days, #15 Prescribed by: ITA MOSQUEDA MD on 08/08/19 1541 Last Action: Continued on 02/17/20 1200 by KATHE GARDINER Lanolin Alcohol/Mo/W.pet/[place] (Hydrocerin Cream) 454 Gm Cream..g., 1 ODILIA TP PRN Q1HR PRN for DRY SKIN / SCALING for 30 Days, #450 Prescribed by: ITA MOSQUEDA MD on 02/20/20 1352 Polyethylene Glycol 3350 (Polyethylene Glycol 3350) 17 Gm Powd.pack, 17 GM PO PRN DAILY PRN for CONSTIPATION for 30 Days, #60 Prescribed by: FLORI DAVIES MD on 01/04/20 1414 Last Action: Continued on 02/17/20 1200 by KATHE GARDINER Discontinued Medications Aspirin (Aspir 81) 81 Mg Tablet.dr, 1 TAB PO DAILY08 for heart health, #30 Ref 5 (Reported) Entered as Reported by: ARTURO CARDENAS on 06/03/14 1540 Last Action: Discontinued on 02/17/201126 by KATHE GARDINER Insulin Glargine,Hum.rec.anlog (Lantus Solostar) 100 Unit/1 Ml Insuln.pen, 10 UNIT SQ QHS for DM, #15 Ref 3 Prescribed by: ITA MOSQUEDA MD on 08/08/19 154 Thyroid,Pork ([place] Thyroid) 30 Mg Tablet, 1 TAB PO DAILY for HYPOTHYROID , #30 Ref 5 (Reported) Entered as Reported by: KATHE GARDINER on 02/17/20 1127 Last Taken: UNKNOWN on Unknown Date & Time Last Action: Converted on 02/17/20 1200 by KATHE GARDINER [Cefepime Hcl] 1 GM VIAL, 3 GM IVP Q24H for OSTEOMYELITIS for 14 Days, #42 Prescribed by: ITA MOSQUEDA MD on 02/06/20 1429 Justicifation of Admission Dx: Justifications for Admission: Justification of Admission Dx: Yes CHF: Cardiac Arrhythmias Altered Mental Status: Altered Mental Status ITA MOSQUEDA MD Feb 20, 2020 14:11
[2020-02-20 14:12] VITALS: BP 143/59
[2020-02-20] MEDS ORDERED: HYDR10TA2 PO (16:11)
--- NOTE | 2020-02-20 16:31 | NUR ---
pt discharged home with home health. Discharge instructions and prescriptions discussed with pt and daughter. Pt verbalized understanding. IV removed. Pt assisted to wheelchair and was secured in car with daughter.
== END 2020-02-20 16:33 | disposition home health service (06) | DRG 689 ==
LOC: ER 08:08 → 4 NORTH 10:36
PROVIDERS: ADMIT Internal Medicine; ATTEND Internal Medicine
PROC: 5A1D70Z Performance of Urinary Filtration, Intermittent, Less than 6 Hours Per Day (ICD-10-PCS; principal; 2020-02-18)
PROC: 5A1D70Z Performance of Urinary Filtration, Intermittent, Less than 6 Hours Per Day (ICD-10-PCS; 2020-02-20)
DX: N39.0 Urinary tract infection, site not specified (principal); N18.6 End stage renal disease; G92 Toxic encephalopathy; M86.8X7 Other osteomyelitis, ankle and foot; I12.0 Hypertensive chronic kidney disease with stage 5 chronic kidney disease or end stage renal disease; F32.9 Major depressive disorder, single episode, unspecified; E78.5 Hyperlipidemia, unspecified; E03.9 Hypothyroidism, unspecified; F41.9 Anxiety disorder, unspecified; M19.90 Unspecified osteoarthritis, unspecified site; E78.00 Pure hypercholesterolemia, unspecified; E11.22 Type 2 diabetes mellitus with diabetic chronic kidney disease; I25.10 Atherosclerotic heart disease of native coronary artery without angina pectoris; E11.51 Type 2 diabetes mellitus with diabetic peripheral angiopathy without gangrene; I16.0 Hypertensive urgency; I48.0 Paroxysmal atrial fibrillation; E11.621 Type 2 diabetes mellitus with foot ulcer; L97.529 Non-pressure chronic ulcer of other part of left foot with unspecified severity; D69.6 Thrombocytopenia, unspecified; D63.1 Anemia in chronic kidney disease; L29.9 Pruritus, unspecified; E11.69 Type 2 diabetes mellitus with other specified complication; I70.202 Unspecified atherosclerosis of native arteries of extremities, left leg; L08.9 Local infection of the skin and subcutaneous tissue, unspecified; Z98.49 Cataract extraction status, unspecified eye; Z90.49 Acquired absence of other specified parts of digestive tract; Z87.440 Personal history of urinary (tract) infections; Z98.62 Peripheral vascular angioplasty status; Z95.1 Presence of aortocoronary bypass graft; Z99.2 Dependence on renal dialysis; Z91.040 Latex allergy status; Z88.2 Allergy status to sulfonamides; Z88.8 Allergy status to other drugs, medicaments and biological substances; Z83.3 Family history of diabetes mellitus; Z82.49 Family history of ischemic heart disease and other diseases of the circulatory system
CPT/HCPCS: 36415; 80048; 80053; 80202; 81001; 82607; 82962; 83735; 84484; 85025; 85610; 86140; 87086; 93005; 93923; 96374; 96375; J0692; J0696; J1200; J1815; J3370; J7040; 99285-25; G0378; Q0163

== ENCOUNTER → 2020-02-26 | Outpatient (CLI) | payer MEDICARE, MEDICAID ==
[2020-02-20 14:12] VITALS: BP 143/59
[~2020-02-26] MED LIST changes: +HYDR10TA2 PO; +MINE454C9 TP; +THYR30TA PO
--- NOTE | 2020-02-26 15:41 | RAD ---
STUDY: MRI of the left foot without contrast INDICATION: Nonhealing plantar wound. COMPARISON: Left foot radiographs 12/25/2019; MRI of the left foot 04/16/2019 TECHNIQUE: Multiplanar MR imaging of the left foot performed without the use of intravenous contrast. FINDINGS: Osteomyelitis of the third metatarsal head and extending to involve the metatarsal neck. The third metatarsal head itself is difficult to delineate suggesting a degree of osseous destruction. Mild osteomyelitis at the base of the third proximal phalanx as well. Poorly delineated plantar ulceration at the level of the third MTP joint with a sinus tract extending towards the base of the third proximal phalanx where there is a heterogeneous fluid collection measuring approximately 1.4 x 0.7 x 1.0 cm. This fluid collection may communicate with intramedullary fluid within the distal aspect of the third metatarsal as seen on image 12 series 11. Redemonstrated chronic deformity of and surrounding the great toe MTP joint as well as flexion deformities of the toes. Small second MTP joint effusion/synovitis, image 16 series 11, without adjacent marrow signal changes to suggest osteomyelitis/septic arthritis. Scattered subcutaneous edema collectively most notably along the dorsum of the foot. Muscular edema and fatty infiltration of the intrinsic foot musculature often seen in the setting of long-standing diabetes. IMPRESSION: 1. Plantar ulceration at the level of the third MTP joint with a sinus tract extending to the base of the third proximal phalanx. This sinus tract communicates with a heterogeneous fluid collection measuring 1.4 x0.7 x 1.0cm along the undersurface of the third proximal phalanx. Though there is limited characterization of this collection given inability to administer intravenous contrast, this is highly likely an abscess. Correspondingly there is osteomyelitis of the third metatarsal head and neck as well as at the base of the third proximal phalanx. Presumed degree of osseous destruction of the third metatarsal head. Note is made that the fluid collection/presumed abscess may be contiguous with intramedullary signal at the distal third metatarsal and though this could represent osteomyelitis alone, a small intraosseous abscess is a consideration as well (reference image 12 series 11). 2. Scattered chronic/degenerative findings are similar to the 04/16/2019 comparison. Small second MTP joint effusion and mild synovitis without signal changes of osteomyelitis at this location. Electronically signed by: DAVID BELLAMY MD (02/26/2020 3:38 PM) [id number]
== END | disposition home or self-care (01) ==
LOC: MRI 08:28
PROVIDERS: ATTEND Preventive Medicine Undersea and Hyperbaric Medicine
DX: M19.072 Primary osteoarthritis, left ankle and foot (principal); M86.8X7 Other osteomyelitis, ankle and foot; M25.475 Effusion, left foot; M65.872 Other synovitis and tenosynovitis, left ankle and foot; M20.5X2 Other deformities of toe(s) (acquired), left foot; T81.89XA Other complications of procedures, not elsewhere classified, initial encounter; L97.528 Non-pressure chronic ulcer of other part of left foot with other specified severity
CPT/HCPCS: 73718

== ENCOUNTER 2020-06-17 07:27 | Emergency (ER) | payer MEDICARE, MEDICAID ==
[~2020-06-17] VITALS: Ht 157.5 cm; Wt 60.0 kg
[~2020-06-17 07:27] MED LIST changes: -AMIO200T4 PO; +AMIO200T6 PO
--- NOTE | 2020-06-17 08:10 | PHYS DOC ---
Past Medical History Past Medical History: Arthritis, Diabetes-Type II, High Cholesterol, Hype rtension, Renal Disease, Renal Failure, UTI Additional Past Medical Histor: hyperkalemia, bladder retention, urinary stents Past Surgical History: Coronary Bypass Surgery Additional Past Surgical Histo: benign tumor removed from colon, bladder stent removed and reinserted, Smoking Status: Never Smoker Alcohol Use: None Drug Use: None General Adult EDM: Chief Complaint: WEAKNESS/GENERALIZED HPI: HPI: History obtained from patient and daughter. Patient is a 79-year-old female past medical history significant for ESRD, insulin-dependent diabetes, hyper tension who presents that she complaint of "not feeling well." She states she has not felt well since yesterday's dialysis treatment. She does receive dialysis on Mondays, Wednesdays, and Fridays. She states she did receive full treatment yesterday. She states that typically in the past when she felt this way she had a urinary tract infection. She states she has not made urine however in several months. She states that she is recently hospitalized in January for UTI and foot infection. She states her foot infection has improved significantly. Denies any fevers. Notes a cough but states this is stable and baseline for her. Denies chest pain or shortness of breath. Denies syncope or falls. Denies any difficulty with ambulation. Denies any current or recent antibiotics. Denies vomiting. Does note some loose stool that she typically gets after dialysis treatments. Does take Coumadin daily for atrial fibrillation. States that she has only checking her INR once every several months. She states there is been confusion between her specialist and family doctor who should manage her INR levels. Denies any changes to her medicines or missed doses. Denies confusion. Denies headache. No other complaints. Review of Systems: Review of Systems: Constitutional: Positive for malaise Eyes: Denies change in visual acuity. [] HENT: Denies nasal congestion or sore throat. [] Respiratory: Denies cough or shortness of breath. [] Cardiovascular: Denies chest pain or edema. [] GI: Denies abdominal pain, nausea, vomiting, bloody stools or diarrhea. [] : Denies dysuria. [] Musculoskeletal: Denies back pain or joint pain. [] Integument: Denies rash. [] Neurologic: Denies headache, focal weakness or sensory changes. [] Endocrine: Denies polyuria or polydipsia. [] Lymphatic: Denies swollen glands. [] Psychiatric: Denies depression or anxiety. [] Heart Score: Risk Factors: Risk Factors: DM, Current or recent (<one month) smoker, HTN, HLP, family history of CAD, obesity. Risk Scores: Score 0 - 3: 2.5% MACE over next 6 weeks - Discharge Home Score 4 - 6: 20.3% MACE over next 6 weeks - Admit for Clinical Observation Score 7 - 10: 72.7% MACE over next 6 weeks - Early Invasive Strategies Allergies: Allergies: Allergies Coded Allergies Type Severity Reaction Last Updated Verified latex Allergy Intermediate Rash 12/30/17 Yes sulfamethoxazole Allergy Intermediate Hives 08/05/19 Yes trimethoprim Allergy Intermediate Hives 08/05/19 Yes Physical Exam: PE: Constitutional: Well developed, well nourished, no acute distress, non-toxic ap pearance. [] HENT: Normocephalic, atraumatic, bilateral external ears normal, oropharynx moist, no oral exudates, nose normal. [] Eyes: PERRLA, EOMI, conjunctiva normal, no discharge. [] Neck: Normal range of motion, no tenderness, supple, no stridor. [] Cardiovascular:Heart rate regular rhythm, no murmur [] Lungs & Thorax: Bilateral breath sounds clear to auscultation [] Abdomen: soft, no tenderness, no masses, no pulsatile masses. [] Skin: Warm, dry, no erythema, no rash. [] Back: No tenderness, no CVA tenderness. [] Extremities: No tenderness, no cyanosis, no clubbing, ROM intact, no edema. [] Neurologic: Alert with intact cognitive function. No aphasia, dysarthria, or neglect. GCS 15. Pupils 3 mm briskly reactive b/l. No APD present. Cranial nerves 2-12 grossly intact; no facial asymmetry present, tongue midline, shoulder shrugging strength intact. Strength 5/5 and symmetric throughout. Light touch sensation intact throughout. Cerebellar testing appropriate without evidence of dysdiadochokinesia. DTR's 2+ in all 4 extremities. Negative pro nator drift bilaterally. Gait normal Psychologic: Affect normal, judgement normal, mood normal. [] Current Patient Data: Labs: Laboratory Tests Test 06/17/20 08:45 06/17/20 09:10 06/17/20 09:19 Urine Collection Type U cath Urine Color Red Urine Clarity Turbid Urine pH Urine Specific [place] Urine Protein mg/dL Urine Glucose (UA) mg/dL Urine Ketones (Stick) mg/dL Urine Blood Urine Nitrite Urine Bilirubin Urine Urobilinogen Dipstick mg/dL Urine Leukocyte Esterase Urine RBC Field obscured /HPF Urine WBC Tntc /HPF Urine Squamous Epithelial Cells None /LPF Urine Bacteria Moderate /HPF Prothrombin Time 16.5 SEC Prothromb Time International Ratio 1.4 Sodium Level 137 mmol/L Potassium Level 3.4 mmol/L Chloride Level 98 mmol/L Carbon Dioxide Level 28 mmol/L Anion Gap 11 Blood Urea Nitrogen 29 mg/dL Creatinine 5.6 mg/dL Estimated GFR (Cockcroft-Gault) 7.4 BUN/Creatinine Ratio 5 Glucose Level 135 mg/dL Calcium Level 9.0 mg/dL Magnesium Level 2.0 mg/dL Total Bilirubin 0.7 mg/dL Aspartate Amino Transf (AST/SGOT) 24 U/L Alanine Aminotransferase (ALT/SGPT) 20 U/L Alkaline Phosphatase 161 U/L Troponin I Quantitative 0.064 ng/mL Total Protein 8.1 g/dL Albumin 2.8 g/dL Albumin/Globulin Ratio 0.5 Lipase 63 U/L White Blood Count 7.0 x10^3/uL Red Blood Count 3.77 x10^6/uL Hemoglobin 12.1 g/dL Hematocrit 36.5 % Mean Corpuscular Volume 97 fL Mean Corpuscular Hemoglobin 32 pg Mean Corpuscular Hemoglobin Concent 33 g/dL Red Cell Distribution Width 15.4 % Platelet Count 142 x10^3/uL Neutrophils (%) (Auto) 64 % Lymphocytes (%) (Auto) 24 % Monocytes (%) (Auto) 9 % Eosinophils (%) (Auto) 2 % Basophils (%) (Auto) 1 % Neutrophils # (Auto) 4.4 x10^3/uL Lymphocytes # (Auto) 1.7 x10^3/uL Monocytes # (Auto) 0.6 x10^3/uL Eosinophils # (Auto) 0.2 x10^3/uL Basophils # (Auto) 0.0 x10^3/uL Vital Signs: Vital Signs Date Time Temp Pulse Resp B/P (MAP) Pulse Ox O2 Delivery O2 Flow Rate FiO2 06/17/20 07:54 98.2 86 16 170/74 (106) 98 Room Air 98.2 EKG: EKG: EKG consistent with normal sinus rhythm. Ventricular rate of 82 bpm. Left axis noted. Intervals normal. No acute ischemic changes appreciated. Nonspecific EKG. [] Radiology/Procedures: Radiology/Procedures: [facility] [address] [place] [address] IMAGING REPORT Signed PATIENT: BRYANT LOCKHART ACCOUNT: [id number] : 1940 LOCATION: ER AGE: 79 SEX: F EXAM STATUS: REG ER ORD. PHYSICIAN: KATT WILCOX DO REASON: abdominal pain with gross hematuria PROCEDURE: CT ABDOMEN PELVIS WO CONTRAST Exam: CT abdomen/pelvis without intravenous contrast Indication: Abdominal pain with gross hematuria Comparison: CT abdomen pelvis 07/03/2019 Technique: Helical CT imaging performed of the abdomen and pelvis without the use of intravenous contrast. Sagittal and coronal reformats were obtained. One or more of the following individualized dose reduction techniques were utilized for this examination: 1. Automated exposure control 2. Adjustment of the mA and/or kV according to patient size 3. Use of iterative reconstruction technique. Findings: Inherently limited evaluation without intravenous contrast. Lower chest: Mild atelectasis and airway wall thickening along the. The heart is normal in size. Surgical changes of CABG. Liver: The liver is normal in size. Gallbladder/Biliary Tree: The gallbladder is unchanged with diffuse rim calcifications. No radiopaque cholelithiasis. No biliary duct dilatation. Pancreas: Normal. Spleen: Normal. Adrenal Glands: Adrenal glands are normal. Kidneys/Ureters/Bladder: The kidneys are unchanged in appearance. There is left greater than right renal atrophy and bilateral hydronephrosis and hydroureter. There is diffuse urothelial thickening and periureteral fat stranding, unchanged. The bladder is decompressed and there is streak artifact from a right hip prosthesis, limiting evaluation of the bladder. Reproductive Organs: Uterus is anteverted. No adnexal mass. Stomach, small bowel, and colon: The stomach and small bowel are normal. There is sigmoid diverticulosis. Vasculature: There is moderate calcified aortoiliac atherosclerosis and diffuse calcifications in the mesenteric arteries, hepatic, splenic and renal arteries. Lymph Nodes: No lymphadenopathy. Peritoneum and retroperitoneum: No free fluid or free air. Bones: There are at least 2 new lytic lesions in the left posterior iliac bone at the site of the previously seen healing fracture, one measuring 1.7 x 1.5 cm and the other measuring 1.2 x 1.2 cm. Old left superior and inferior pubic rami fractures. A right hip prosthesis is noted. An old L2 compression fracture with approximately 50 percent height loss centrally and minimal retropulsion of the posterior cortex is unchanged. IMPRESSION: 1. Unchanged bilateral renal atrophy and hydroureteronephrosis with urothelial thickening and periureteral fat stranding. This could be infectious or inflammatory in etiology, or related to urothelial or bladder malignancy. The bladder is not well visualized due to decompression and streak artifact from a hip prosthesis. 2. New lytic lesions in the left posterior iliac bone suspicious for metastatic disease. 3. Porcelain gallbladder, unchanged. This could place the patient at risk for gallbladder cancer. 4. Sigmoid diverticulosis. Electronically signed by: Rosy Timmons MD (06/17/2020 9:56 AM) [id number] DICTATED and SIGNED BY: ROSY TIMMONS MD DATE: 06/17/20 0956 [] Course & Med Decision Making: Course & Med Decision Making Pertinent Labs and Imaging studies reviewed. (See chart for details) [] Patient is a 79-year-old female who presents with chief complaint not feeling well over the past 24 hours. Basic labs were obtained. Grossly unremarkable. She does have chemistry panel consistent with her end-stage renal dialysis. Detectable troponin however this is in the setting of ESRD. Similar to previous. Urine does not show any obvious signs of infection. Previous urine cultures did not grow any bacteria as well. Patient is alert and oriented x3 and has a GCS of 15. She has no pain complaints. Given the patient did have some gross hematuria on urine specimen three-way Gee catheter was inserted with continuous bladder irrigation. Her urine did clear. INR 1.3. Hemoglobin normal. At this time I do feel the patient is appropriate for discharge home. She was instructed to follow-up with her family physician. She be discharged home with Macrobid for slight bacteria noted in her urine. Urine culture pending. Strict return precautions discussed and understood by patient and nasreen brown. She is agreeable to this plan. Stable for discharge. Dragon Disclaimer: Geri Disclaimer: This electronic medical record was generated, in whole or in part, using a voice recognition dictation system. Departure Departure Impression: Primary Impression: Chronic renal failure Qualified Codes: N18.9 - Chronic kidney disease, unspecified Disposition: 01 DC HOME SELF CARE/HOMELESS Condition: STABLE Referrals: LISA CALHOUN (PCP) Patient Instructions: End Stage Kidney Disease Additional Instructions: Please follow-up with your primary care physician in the next 2 to 3 days. Scripts Nitrofurantoin Monohyd/M-Cryst (MACROBID 100 MG CAPSULE) 100 Mg Capsule 1 CAP PO BID for 5 Days, #10 CAP 0 Refills Prov: KATT WILCOX DO 06/17/20 KATT WILCOX DO Jun 17, 2020 08:10
--- NOTE | 2020-06-17 08:39 | RAD ---
CHEST AP ONLY History: Weakness Comparison: February 04, 2020 Findings: Single view of the chest is submitted. There again has been a median sternotomy. Heart size is stable. There is atherosclerotic calcification near aortic arch. There is interstitial opacity with basilar predominance although decreased. There is no new lobar infiltrate, dependent pleural fluid, or pneumothorax. There is a stent of the proximal left arm/axillary region. Impression: 1. No acute radiographic abnormality is identified, somewhat decreased nonspecific interstitial opacity. Electronically signed by: Gonzalez Camilo MD (06/17/2020 8:36 AM) [facility]
[2020-06-17 09:27] LABS: CLARITY,URINE TURBID; COLOR,URINE RED
[2020-06-17 09:28] LABS: BACTERIA,URINE MODERATE /HPF (0-FEW); RBC,URINE FIELD OBSCURED /HPF (0-2); WBC,URINE TNTC /HPF (0-4)
[2020-06-17 09:38] LABS: CREATININE 5.6 mg/dL (0.6-1.0); GFR 7.4; POTASSIUM 3.4 mmol/L (3.5-5.1)
[2020-06-17 09:38] LABS: BASO % 1 % (0-3); EOS # 0.2 x10^3/uL (0.0-0.7); EOS % 2 % (0-3); HEMATOCRIT 36.5 % (36.0-47.0); HEMOGLOBIN 12.1 g/dL (12.0-15.5); LYMPH # 1.7 x10^3/uL (1.0-4.8); LYMPH % 24 % (24-48); MEAN CORPUSCULAR HEMOGLOBIN 32 pg (25-35); MEAN CORPUSCULAR HGB CONC 33 g/dL (31-37); MEAN CORPUSCULAR VOLUME 97 fL (79-100); MONO # 0.6 x10^3/uL (0.0-1.1); MONO % 9 % (0-9); NEUT # 4.4 x10^3/uL (1.8-7.7); NEUT % 64 % (31-73); PLATELET COUNT 142 x10^3/uL (140-400); RED BLOOD COUNT 3.77 x10^6/uL (3.50-5.40); RED CELL DISTRIBUTION WIDTH 15.4 % (11.5-14.5)
[2020-06-17 09:43] LABS: ALBUMIN 2.8 g/dL (3.4-5.0); ALBUMIN/GLOBULIN RATIO 0.5 (1.0-1.7); TOTAL BILIRUBIN 0.7 mg/dL (0.2-1.0); TOTAL PROTEIN 8.1 g/dL (6.4-8.2)
[2020-06-17 09:46] LABS: PROTHROMBIN TIME PATIENT 16.5 SEC (11.7-14.0)
--- NOTE | 2020-06-17 09:59 | RAD ---
Exam: CT abdomen/pelvis without intravenous contrast Indication: Abdominal pain with gross hematuria Comparison: CT abdomen pelvis 07/03/2019 Technique: Helical CT imaging performed of the abdomen and pelvis without the use of intravenous contrast. Sagittal and coronal reformats were obtained. One or more of the following individualized dose reduction techniques were utilized for this examination: 1. Automated exposure control 2. Adjustment of the mA and/or kV according to patient size 3. Use of iterative reconstruction technique. Findings: Inherently limited evaluation without intravenous contrast. Lower chest: Mild atelectasis and airway wall thickening along the. The heart is normal in size. Surgical changes of CABG. Liver: The liver is normal in size. Gallbladder/Biliary Tree: The gallbladder is unchanged with diffuse rim calcifications. No radiopaque cholelithiasis. No biliary duct dilatation. Pancreas: Normal. Spleen: Normal. Adrenal Glands: Adrenal glands are normal. Kidneys/Ureters/Bladder: The kidneys are unchanged in appearance. There is left greater than right renal atrophy and bilateral hydronephrosis and hydroureter. There is diffuse urothelial thickening and periureteral fat stranding, unchanged. The bladder is decompressed and there is streak artifact from a right hip prosthesis, limiting evaluation of the bladder. Reproductive Organs: Uterus is anteverted. No adnexal mass. Stomach, small bowel, and colon: The stomach and small bowel are normal. There is sigmoid diverticulosis. Vasculature: There is moderate calcified aortoiliac atherosclerosis and diffuse calcifications in the mesenteric arteries, hepatic, splenic and renal arteries. Lymph Nodes: No lymphadenopathy. Peritoneum and retroperitoneum: No free fluid or free air. Bones: There are at least 2 new lytic lesions in the left posterior iliac bone at the site of the previously seen healing fracture, one measuring 1.7 x 1.5 cm and the other measuring 1.2 x 1.2 cm. Old left superior and inferior pubic rami fractures. A right hip prosthesis is noted. An old L2 compression fracture with approximately 50 percent height loss centrally and minimal retropulsion of the posterior cortex is unchanged. IMPRESSION: 1. Unchanged bilateral renal atrophy and hydroureteronephrosis with urothelial thickening and periureteral fat stranding. This could be infectious or inflammatory in etiology, or related to urothelial or bladder malignancy. The bladder is not well visualized due to decompression and streak artifact from a hip prosthesis. 2. New lytic lesions in the left posterior iliac bone suspicious for metastatic disease. 3. Porcelain gallbladder, unchanged. This could place the patient at risk for gallbladder cancer. 4. Sigmoid diverticulosis. Electronically signed by: Rosy Timmons MD (06/17/2020 9:56 AM) [id number]
[2020-06-17 11:27] VITALS: BP 186/76
[2020-06-17] MEDS ORDERED: NITR100C62 PO (11:32)
--- NOTE | 2020-06-17 16:41 | EKG ---
[facility] [address] [place] [address] Test Date: 2020-06-17 Test Time: 08:29:21 Pat Name: BRYANT LOCKHART Department: Room: Gender: F [employer]: : 1940 Requested By: KATT WILCOX Order Number: [id number] Reading MD: Measurements Intervals [place] Rate: 82 P: 13 CT: 162 QRS: -20 QRSD: 102 T: 98 QT: 432 QTc: 508 Interpretive Statements SINUS RHYTHM LEFTWARD AXIS ST & T ABNORMALITY, CONSIDER HIGH LATERAL ISCHEMIA OR LEFT VENTRICULAR STRAIN ABNORMAL ECG RI6.02 No previous ECG available for comparison
== END 2020-06-17 11:59 | disposition home or self-care (01) ==
LOC: ER 07:27
DX: E11.22 Type 2 diabetes mellitus with diabetic chronic kidney disease (principal); I12.0 Hypertensive chronic kidney disease with stage 5 chronic kidney disease or end stage renal disease; N18.6 End stage renal disease; Z99.2 Dependence on renal dialysis; K57.30 Diverticulosis of large intestine without perforation or abscess without bleeding; N13.30 Unspecified hydronephrosis; E78.00 Pure hypercholesterolemia, unspecified; Z87.440 Personal history of urinary (tract) infections; Z95.1 Presence of aortocoronary bypass graft; Z95.5 Presence of coronary angioplasty implant and graft; Z88.1 Allergy status to other antibiotic agents; Z88.2 Allergy status to sulfonamides; Z91.040 Latex allergy status
CPT/HCPCS: 36415; 51702; 71045; 74176; 80053; 81001; 83690; 83735; 84484; 85025; 85610; 87086; 93005; 99285

== ENCOUNTER 2020-09-02 07:24 | Inpatient (IN) | payer MEDICARE, MEDICAID ==
[~2020-09-02] VITALS: Ht 165.1 cm; Wt 54.2 kg
[~2020-09-02 07:24] MED LIST changes: -CIPR500T PO; +CIPR500T2 PO; -METH1TAB20 PO; +METHENAMINE HIPP1 GM PO; -MICO14CR TP; +MICO14CR3 TP; -MIRA50TA PO; -POLY17PO28 PO; +POLY17PO52 PO
[2020-09-02 08:55] LABS: BACTERIA,URINE MANY /HPF (0-FEW); CLARITY,URINE BLOODY; COLOR,URINE RED; RBC,URINE TNTC /HPF (0-2); WBC,URINE TNTC /HPF (0-4)
--- NOTE | 2020-09-02 08:59 | ED.ADGEN ---
Past Medical History Past Medical History: Arthritis, Diabetes-Type II, High Cholesterol, Hypertension, Renal Disease, Renal Failure, UTI Additional Past Medical Histor: hyperkalemia, bladder retention, urinary stents Past Surgical History: Coronary Bypass Surgery Additional Past Surgical Histo: benign tumor removed from colon, bladder stent removed and reinserted, Smoking Status: Never Smoker Alcohol Use: None Drug Use: None General Adult EDM: Chief Complaint: BLOOD IN URINE HPI: HPI: Patient is a 80 year old female who presents to the ED c/o hematuria, loss of appetitie, intermittent suprapubic abd pain x 2 days. Patient has had this multiple times in the past. This is typically related to recurrent UTIs. She typically requires IV antibiotics.Suprapubic pain is dull and only lasts a few minutes. It does not radiate. She does not have any confusion or fevers. Review of Systems: Review of Systems: Complete ROS is negative unless otherwise documented in HPI Current Medications: Current Medications Medications (Trade) Dose Ordered Sig/Claudette Start Time Stop Time Status Last Admin Dose Admin Ceftriaxone Sodium (Rocephin) 1 gm 1X ONCE 09/02/20 11:00 09/02/20 10:58 DC Dexamethasone Sodium Phosphate (Decadron) 10 mg 1X ONCE 09/02/20 11:00 09/02/20 11:01 Cancel Ondansetron HCl (Zofran) 4 mg 1X ONCE 09/02/20 10:45 09/02/20 10:48 DC 09/02/20 10:47 4 MG Allergies: Allergies: Allergies Coded Allergies Type Severity Reaction Last Updated Verified latex Allergy Intermediate Rash 09/02/20 Yes sulfamethoxazole Allergy Intermediate Hives 09/02/20 Yes trimethoprim Allergy Intermediate Hives 09/02/20 Yes Physical Exam: PE: General: Awake, alert, NAD. Well Nourished, well hydrated. Cooperative HEENT: Atraumatic, EOMI, PERRL, airway patent, moist oral mucosa Neck: Supple, trachea midline Respiratory: CTA bilaterally, normal effort, no wheezing/crackles CV: RRR, no murmur, cap refill <2 GI: Soft, nondistended, nontender, no masses MSK: No obvious deformities Skin: Warm, dry, intact Neuro: A&O x3, speech NL, sensory and motor grossly intact, no focal deficits Psych: Normal affect, normal mood, not suicidal or homicidal Current Patient Data: Labs: Laboratory Tests Test 09/02/20 08:22 09/02/20 10:14 09/02/20 11:40 Urine Collection Type U cath Urine Color Red Urine Clarity Bloody Urine pH (<5.0-8.0) Urine Specific [place] (1.000-1.030) Urine Protein mg/dL (NEG-TRACE) Urine Glucose (UA) mg/dL (NEG) Urine Ketones (Stick) mg/dL (NEG) Urine Blood (NEG) Urine Nitrite (NEG) Urine Bilirubin (NEG) Urine Urobilinogen Dipstick mg/dL (0.2 mg/dL) Urine Leukocyte Esterase (NEG) Urine RBC Tntc /HPF (0-2) Urine WBC Tntc /HPF (0-4) Urine Squamous Epithelial Cells Mod /LPF Urine Bacteria Many /HPF (0-FEW) White Blood Count 6.9 x10^3/uL (4.0-11.0) Red Blood Count 3.41 x10^6/uL (3.50-5.40) L Hemoglobin 11.5 g/dL (12.0-15.5) L Hematocrit 34.4 % (36.0-47.0) L Mean Corpuscular Volume 101 fL (79-100) H Mean Corpuscular Hemoglobin 34 pg (25-35) Mean Corpuscular Hemoglobin Concent 33 g/dL (31-37) Red Cell Distribution Width 14.6 % (11.5-14.5) H Platelet Count 140 x10^3/uL (140-400) Neutrophils (%) (Auto) 65 % (31-73) Lymphocytes (%) (Auto) 23 % (24-48) L Monocytes (%) (Auto) 8 % (0-9) Eosinophils (%) (Auto) 4 % (0-3) H Basophils (%) (Auto) 1 % (0-3) Neutrophils # (Auto) 4.5 x10^3/uL (1.8-7.7) Lymphocytes # (Auto) 1.6 x10^3/uL (1.0-4.8) Monocytes # (Auto) 0.5 x10^3/uL (0.0-1.1) Eosinophils # (Auto) 0.3 x10^3/uL (0.0-0.7) Basophils # (Auto) 0.1 x10^3/uL (0.0-0.2) Sodium Level 138 mmol/L (136-145) Potassium Level 3.5 mmol/L (3.5-5.1) Chloride Level 99 mmol/L (98-107) Carbon Dioxide Level 32 mmol/L (21-32) Anion Gap 7 (6-14) Blood Urea Nitrogen 22 mg/dL (7-20) H Creatinine 5.8 mg/dL (0.6-1.0) H Estimated GFR (Cockcroft-Gault) 7.1 Glucose Level 108 mg/dL (70-99) H Calcium Level 8.7 mg/dL (8.5-10.1) Laboratory Tests 09/02/20 10:14 Laboratory Tests 09/02/20 11:40 Vital Signs: Vital Signs Date Time Temp Pulse Resp B/P (MAP) Pulse Ox O2 Delivery O2 Flow Rate FiO2 09/02/20 12:59 85 20 170/74 (106) 96 Room Air 09/02/20 08:05 98.4 98.4 EKG: EKG: [] Heart Score: Risk Factors: Risk Factors: DM, Current or recent (<one month) smoker, HTN, HLP, family history of CAD, obesity. Risk Scores: Score 0 - 3: 2.5% MACE over next 6 weeks - Discharge Home Score 4 - 6: 20.3% MACE over next 6 weeks - Admit for Clinical Observation Score 7 - 10: 72.7% MACE over next 6 weeks - Early Invasive Strategies Radiology/Procedures: Radiology/Procedures: [] Course & Med Decision Making: Course & Med Decision Making Pertinent Labs and Imaging studies reviewed. (See chart for details) Patient is a 80-year-old female who presents to the emergency room complaining of hematuria which in the past has been related to recurrent UTIs. Lab work and UA was sent. Dragon Disclaimer: Dragjatin Disclaimer: This electronic medical record was generated, in whole or in part, using a voice recognition dictation system. Departure Departure Impression: Primary Impression: Weakness Additional Impressions: ESRD (end stage renal disease) UTI (lower urinary tract infection) Disposition: ADMITTED INPT THIS HOSP Condition: STABLE Referrals: LISA CALHOUN (PCP) Problem Qualifiers MARCELO JEFFERS MD Sep 02, 2020 08:59
[2020-09-02] MEDS ORDERED: cefTRIAXone IV Push 1 GM VIAL. IVP ONE ×2 (10:00→11:00)
[2020-09-02 10:36] LABS: BASO # 0.1 x10^3/uL (0.0-0.2); BASO % 1 % (0-3); EOS # 0.3 x10^3/uL (0.0-0.7); EOS % 4 % (0-3); HEMATOCRIT 34.4 % (36.0-47.0); HEMOGLOBIN 11.5 g/dL (12.0-15.5); LYMPH # 1.6 x10^3/uL (1.0-4.8); LYMPH % 23 % (24-48); MEAN CORPUSCULAR HEMOGLOBIN 34 pg (25-35); MEAN CORPUSCULAR HGB CONC 33 g/dL (31-37); MEAN CORPUSCULAR VOLUME 101 fL (79-100); MONO # 0.5 x10^3/uL (0.0-1.1); MONO % 8 % (0-9); NEUT # 4.5 x10^3/uL (1.8-7.7); NEUT % 65 % (31-73); PLATELET COUNT 140 x10^3/uL (140-400); RED BLOOD COUNT 3.41 x10^6/uL (3.50-5.40); RED CELL DISTRIBUTION WIDTH 14.6 % (11.5-14.5); WHITE BLOOD COUNT 6.9 x10^3/uL (4.0-11.0)
[2020-09-02] MEDS ORDERED: ONDANSETRON PF 4 MG/2 ML VIAL. ONE (10:44)
[2020-09-02] MEDS ORDERED: ONDANSETRON PF 4 MG/2 ML VIAL. IVP ONE (10:45)
[2020-09-02] MEDS ORDERED: DEXAMETHASONE SOD PHOS 20 MG/5 ML VIAL. IVP ONE (11:00)
--- NOTE | 2020-09-02 11:40 | RAD ---
EXAM: CT Abdomen and Pelvis without IV contrast CLINICAL HISTORY: pain, hematuria COMPARISON: 06/17/2020 01/02/2020 TECHNIQUE: Helical CT of the abdomen and pelvis without intravenous contrast. Axial, coronal and sagi ttal reformatted images were generated. PQRS compliance statement - One or more of the following individualized dose reduction techniques wer e utilized for this study: 1. Automated exposure control 2. Adjustment of the mA and/or kV according to patient size 3. Use of iterative reconstruction technique FINDINGS: Lack of intravenous contrast limits evaluation of solid organs, vasculature, and lymph nodes. Lower chest: Linear and bandlike opacities lower lobes likely scarring/atelectasis. In addition there is interstit ial prominence, question underlying interstitial lung disease. Coronary artery calcifications are see n. Abdomen and Pelvis: Liver is mildly nodular in contour, may be seen with cirrhosis. No dominant liver lesion is seen. Spl een is unremarkable. Nodular thickening of the both adrenal glands. Diffuse gallbladder calcifications are again seen. No biliary duct dilatation. Moderate right hydronephrosis. Bilateral hydroureter with thickening and infiltration about both uret ers particularly distally. No definite ureteral, renal or bladder calculus is seen. There is marked t hickening of the bladder wall as well with associated fat infiltration. Uterine calcifications are se en. Colonic diverticulosis without evidence for acute diverticulitis. Moderate colonic stool content. No small or large bowel dilatation. No bowel obstruction. Dense vascular calcifications are seen, particularly of aorta and main branches. No abdominal or pelvic ascites. No abdominal or pelvic lymphadenopathy. Bones: Evaluation the pelvis is limited by streak artifact from the right total hip arthroplasty. Lytic lesi on within the left iliac bone measures 3 x 2.3 cm, increased in size compared to 06/17/2020, with the previously seen 2 lytic lesions have coalesced into one lytic lesion. Marked osteopenia. Old left pu bic bone fractures. Old L2 compression fracture unchanged. IMPRESSION: 1. Infiltration about the ureters bilaterally and bladder possibly from infectious/inflammatory proc ess and can be correlated with urinalysis. This is mildly progressed however compared to 06/17/2020. Additionally malignancy or alternative inflammatory process would also have this appearance. 2. Calcifications of the gallbladder are again seen which may be seen with gallbladder carcinoma. 3. Nodular thickening of the adrenal glands, uncertain clinical significance, essentially stable to prior. 4. Lytic lesions within the left iliac bone have increased in size, suspicious for metastatic diseas e. 5. Colonic diverticulosis without CT evidence for acute diverticulitis. Electronically signed by: Abdiel Ye MD (09/02/2020 11:38 AM) [id number]
[2020-09-02 11:56] LABS: CALCIUM 8.7 mg/dL (8.5-10.1); CREATININE 5.8 mg/dL (0.6-1.0); GFR 7.1; POTASSIUM 3.5 mmol/L (3.5-5.1)
--- NOTE | 2020-09-02 14:08 | PDOC1 ---
History and Physical Date of Admission Date of Admission DATE: 09/02/20 TIME: 14:06 Identification/Chief Complaint Chief Complaint Suprapubic pain Source Source: Caregiver, Chart review, Patient History of Present Illness History of Present Illness Ms Beach is a 79yo F w/ PMHx ESRD on HD, coronary artery disease and paroxysmal atrial fibrillation presented to ED 2/2 feeling badly. She is c/o hematuria, loss of appetite, intermittent suprapubic abdominal pain for the past 2 days prior to admission. Patient has had this multiple times in the past. This is typically related to recurrent UTIs. She typically requires IV antibiotics.Suprapubic pain is dull and only lasts a few minutes. It does not radiate. She does not have any confusion or fevers, but her daughter does note that she has been confused. She has also noted her last dialysis session she had diarrhea and had to stop early. Normally [facility]. Confused for the past few days, so weak now is unable to ambulate. CT abdomen pelvis w/o contrast with inflammation about the ureters bilaterally and bladder possibly from infectious/inflammatory. Also with calcifications of the gallbladder and lytic lesions within the left iliac bone have increased in size, suspicious for metastatic disease. Labs with WBC 6.9, Hb 11.5, platelets 140, MCV 101, NA 138, K3.5, BUN 22, CR 5.8, glucose 108 Admitted for further treatment. Consults: Nephrology, Infectious diseases Past Medical History Cardiovascular: CAD, HTN, Hyperlipidemia CENTRAL NERVOUS SYSTEM: Periperal neuropathy GI: Diverticulosis Heme/Onc: Anemia NOS, Cancer Hepatobiliary: No pertinent hx Psych: No pertinent hx Rheumatologic: No pertinent hx Infectious disease: Other Renal/: Chronic renal failure, UTI, Other Endocrine: Diabetes, Hyperparathyroidism Past Surgical History Past Surgical History: CABG, Cataract Removal, Colectomy, Other Family History Family History: Hypertension Social History Smoke: No ALCOHOL: none Drugs: None Current Problem List Problem List Problems Medical Problems: (1) Weakness Status: Acute Current Medications Current Medications Current Medications Ceftriaxone Sodium (Rocephin) 1 gm 1X ONCE IVP Last administered on 09/02/20at 10:38; Start 09/02/20 at 10:00; Stop 09/02/20 at 10:01; Status DC Ondansetron HCl (Zofran) 4 mg STK-MED ONCE .ROUTE ; Start 09/02/20 at 10:44; Stop 09/02/20 at 10:44; Status DC Ondansetron HCl (Zofran) 4 mg 1X ONCE IVP Last administered on 09/02/20at 10:47; Start 09/02/20 at 10:45; Stop 09/02/20 at 10:48; Status DC Ceftriaxone Sodium (Rocephin) 1 gm 1X ONCE IVP ; Start 09/02/20 at 11:00; Stop 09/02/20 at 10:58; Status DC Dexamethasone Sodium Phosphate (Decadron) 10 mg 1X ONCE IVP ; Start 09/02/20 at 11:00; Stop 09/02/20 at 11:01; Status Cancel Active Scripts Active Macrobid 100 Mg Capsule (Nitrofurantoin Monohyd/M-Cryst) 100 Mg Capsule 1 Cap PO BID 5 Days Hydroxyzine Hcl 10 Mg Tablet 10 Mg PO PRN Q6HRS PRN 30 Days Hydrocerin Cream (Lanolin Alcohol/Mo/W.pet/[place]) 454 Gm Cream..g. 1 Scotty TP PRN Q1HR PRN 30 Days [Cefepime Hcl] 1 GM Vial 1 Gm IVP QMWF 14 Days Vancomycin HCl 250 Mg Vial 500 Mg IV MWF 14 Days Levothyroxine Sodium 75 Mcg Tablet 75 Mcg PO DAILY06 90 Days Antifungal Cream (Miconazole Nitrate) 14 Gm Cream..g. 1 Scotty TP BID 7 Days Culturelle (Lactobacillus Rhamnosus Gg) 1 Each Cap.sprink 1 Cap PO BID 30 Days Polyethylene Glycol 3350 17 Gm Powd.pack 17 Gm PO PRN DAILY PRN 30 Days Amiodarone Hcl 200 Mg Tablet 200 Mg PO DAILY 30 Days Coumadin (Warfarin Sodium) 3 Mg Tablet 3 Mg PO 1X WARF 30 Days Hydrocodone-Apap 7.5-325 (Hydrocodone Bit/Acetaminophen) 1 Tab Tablet 1 Tab PO PRN Q4HRS PRN 6 Days Reported Lantus Solostar (Insulin Glargine,Hum.rec.anlog) 100 Unit/1 Ml Insuln.pen 6 Unit SQ HS Simvastatin 40 Mg Tablet 1 Tab PO QHS Metoprolol Tartrate 50 Mg Tablet 1 Tab PO BID Funmi-Hannah Rx Tablet (Vit B Cmplx 3/Fa/Vit C/Biotin) 1 Each Tablet 1 Each PO DAILY Novolog (Insulin Aspart) 100 Unit/1 Ml Cartridge 6 Unit SQ TIDAC Calcium Acetate 667 Mg Tablet 2 Cap PO TIDAC Allergies Allergies: Coded Allergies: latex (Verified Allergy, Intermediate, Rash, 09/02/20) sulfamethoxazole (Verified Allergy, Intermediate, Hives, 09/02/20) trimethoprim (Verified Allergy, Intermediate, Hives, 09/02/20) ROS General: YES: Fatigue, Malaise, Appetite; No: Chills, Night Sweats, Other PSYCHOLOGICAL ROS: YES: Anxiety; No: Behavioral Disorder, Concentration difficultie, Decreased libido, Depression, Disorientation, Hallucinations, Hostility, Irritablity, Memory difficulties, Mood Swings, Obsessive thoughts, Physical abuse, Sexual abuse, Sleep disturbances, Suicidal ideation, Other Eyes: No Blurry vision, No Decreased vision, No Double vision, No Dry eyes, No Excessive tearing, No Eye Pain, No Itchy Eyes, No Loss of vision, No Photophobia, No Scotomata, No Uses contacts, No Uses glasses, No Other HEENT: No: Heacaches, Visual Changes, Hearing change, Nasal congestion, Nasal discharge, Oral lesions, Sinus pain, Sore Throat, Epistaxis, Sneezing, Snoring, Tinnitus, Vertigo, Vocal changes, Other ALLERGY AND IMMUNOLOGY: No: Hives, Insect Bite Sensitivity, Itchy/Watery Eyes, Nasal Congestion, Post Nasal Drip, Seasonal Allergies, Other Hematological and Lymphatic: No: Bleeding Problems, Blood Clots, Blood Transfusions, Brusing, Night Sweats, Pallor, Swollen Lymph Nodes, Other ENDOCRINE: No: Breast Changes, Galactorrhea, Hair Pattern Changes, Hot Flashes, Malaise/lethargy, Mood Swings, Palpitations, Polydipsia/polyuria, Skin Changes, Temperature Intolerance, Unexpected Weight Changes, Other Breast: No New/Changing Breast Lumps, No Nipple changes, No Nipple discharge, No Other Respiratory: No: Cough, Hemoptysis, Orthopnea, Pleuritic Pain, Shortness of breath, SOB with excertion, Sputum Changes, Stridor, Tachypnea, Wheezing, Other Cardiovascular: No Chest Pain, No Palpitations, No Orthopnea, No Paroxysmal Noc. Dyspnea, No Edema, No Lt Headedness, No Other Gastrointestinal: Yes Nausea, Yes Abdominal Pain, Yes Diarrhea; No Vomiting, No Constipation, No Melena, No Hematochezia, No Other Genitourinary: YES Dysuria, YES Frequency, YES Hematuria, YES Urgency, YES Pain ; No Incontinence, No Retention, No Discharge, No Flank Pain, No Other, No , No , No , No , No , No , No Musculoskeletal: No Gait Disturbance, No Joint Pain, No Joint Stiffness, No Joint Swelling, No Muscle Pain, No Muscular Weakness, No Pain In:, No Swelling In:, No Other Neurological: No Behavorial Changes, No Bowel/Bladder ControlChng, No Confusio n, No Dizziness, No Gait Disturbance, No Headaches, No Impaired Coord/balance, No Memory Loss, No Numbness/Tingling, No Seizures, No Speech Problems, No Tremors, No Visual Changes, No Weakness, No Other Skin: No Dry Skin, No Eczema, No Hair Changes, No Lumps, No Mole Changes, No Mottling, No Nail Changes, No Pruritus, No Rash, No Skin Lesion Changes, No Other, No Acne Physical Exam General: Alert, Oriented X3, Cooperative, mild distress HEENT: Atraumatic, PERRLA, EOMI, Mucous membr. moist/pink Lungs: Clear to auscultation, Normal air movement Heart: S1S2, RRR, no thrills, no rubs, no gallops, no murmurs Abdomen: Normal bowel sounds, Soft, No hepatosplenomegaly, No masses, Other (Suprapubic tenderness) Rectal Exam: not examined Extremities: No clubbing, No cyanosis, No edema, Normal pulses, No tenderness/swelling, Other (LUE with good bruit) Skin: No rashes, No breakdown, No significant lesion Neuro: Normal speech, Strength at 5/5 X4 ext, Normal tone, Sensation intact, Cranial nerves 3-12 NL, Reflexes 2+ Psych/Mental Status: Mood NL, Other (Some confusion) Vitals Vitals Vital Signs Date Time Temp Pulse Resp B/P (MAP) Pulse Ox O2 Delivery O2 Flow Rate FiO2 09/02/20 12:59 85 20 170/74 (106) 96 Room Air 09/02/20 08:05 98.4 98.4 Labs Labs Laboratory Tests Test 09/02/20 08:22 09/02/20 10:14 09/02/20 11:40 Urine Collection Type U cath Urine Color Red Urine Clarity Bloody Urine pH (<5.0-8.0) Urine Specific Baird (1.000-1.030) Urine Protein mg/dL (NEG-TRACE) Urine Glucose (UA) mg/dL (NEG) Urine Ketones (Stick) mg/dL (NEG) Urine Blood (NEG) Urine Nitrite (NEG) Urine Bilirubin (NEG) Urine Urobilinogen Dipstick mg/dL (0.2 mg/dL) Urine Leukocyte Esterase (NEG) Urine RBC Tntc /HPF (0-2) Urine WBC Tntc /HPF (0-4) Urine Squamous Epithelial Cells Mod /LPF Urine Bacteria Many /HPF (0-FEW) White Blood Count 6.9 x10^3/uL (4.0-11.0) Red Blood Count 3.41 x10^6/uL (3.50-5.40) Hemoglobin 11.5 g/dL (12.0-15.5) Hematocrit 34.4 % (36.0-47.0) Mean Corpuscular Volume 101 fL (79-100) Mean Corpuscular Hemoglobin 34 pg (25-35) Mean Corpuscular Hemoglobin Concent 33 g/dL (31-37) Red Cell Distribution Width 14.6 % (11.5-14.5) Platelet Count 140 x10^3/uL (140-400) Neutrophils (%) (Auto) 65 % (31-73) Lymphocytes (%) (Auto) 23 % (24-48) Monocytes (%) (Auto) 8 % (0-9) Eosinophils (%) (Auto) 4 % (0-3) Basophils (%) (Auto) 1 % (0-3) Neutrophils # (Auto) 4.5 x10^3/uL (1.8-7.7) Lymphocytes # (Auto) 1.6 x10^3/uL (1.0-4.8) Monocytes # (Auto) 0.5 x10^3/uL (0.0-1.1) Eosinophils # (Auto) 0.3 x10^3/uL (0.0-0.7) Basophils # (Auto) 0.1 x10^3/uL (0.0-0.2) Sodium Level 138 mmol/L (136-145) Potassium Level 3.5 mmol/L (3.5-5.1) Chloride Level 99 mmol/L (98-107) Carbon Dioxide Level 32 mmol/L (21-32) Anion Gap 7 (6-14) Blood Urea Nitrogen 22 mg/dL (7-20) Creatinine 5.8 mg/dL (0.6-1.0) Estimated GFR (Cockcroft-Gault) 7.1 Glucose Level 108 mg/dL (70-99) Calcium Level 8.7 mg/dL (8.5-10.1) Laboratory Tests Test 09/02/20 08:22 09/02/20 10:14 09/02/20 11:40 Urine Collection Type U cath Urine Color Red Urine Clarity Bloody Urine pH (<5.0-8.0) Urine Specific Baird (1.000-1.030) Urine Protein mg/dL (NEG-TRACE) Urine Glucose (UA) mg/dL (NEG) Urine Ketones (Stick) mg/dL (NEG) Urine Blood (NEG) Urine Nitrite (NEG) Urine Bilirubin (NEG) Urine Urobilinogen Dipstick mg/dL (0.2 mg/dL) Urine Leukocyte Esterase (NEG) Urine RBC Tntc /HPF (0-2) Urine WBC Tntc /HPF (0-4) Urine Squamous Epithelial Cells Mod /LPF Urine Bacteria Many /HPF (0-FEW) White Blood Count 6.9 x10^3/uL (4.0-11.0) Red Blood Count 3.41 x10^6/uL (3.50-5.40) Hemoglobin 11.5 g/dL (12.0-15.5) Hematocrit 34.4 % (36.0-47.0) Mean Corpuscular Volume 101 fL (79-100) Mean Corpuscular Hemoglobin 34 pg (25-35) Mean Corpuscular Hemoglobin Concent 33 g/dL (31-37) Red Cell Distribution Width 14.6 % (11.5-14.5) Platelet Count 140 x10^3/uL (140-400) Neutrophils (%) (Auto) 65 % (31-73) Lymphocytes (%) (Auto) 23 % (24-48) Monocytes (%) (Auto) 8 % (0-9) Eosinophils (%) (Auto) 4 % (0-3) Basophils (%) (Auto) 1 % (0-3) Neutrophils # (Auto) 4.5 x10^3/uL (1.8-7.7) Lymphocytes # (Auto) 1.6 x10^3/uL (1.0-4.8) Monocytes # (Auto) 0.5 x10^3/uL (0.0-1.1) Eosinophils # (Auto) 0.3 x10^3/uL (0.0-0.7) Basophils # (Auto) 0.1 x10^3/uL (0.0-0.2) Sodium Level 138 mmol/L (136-145) Potassium Level 3.5 mmol/L (3.5-5.1) Chloride Level 99 mmol/L (98-107) Carbon Dioxide Level 32 mmol/L (21-32) Anion Gap 7 (6-14) Blood Urea Nitrogen 22 mg/dL (7-20) Creatinine 5.8 mg/dL (0.6-1.0) Estimated GFR (Cockcroft-Gault) 7.1 Glucose Level 108 mg/dL (70-99) Calcium Level 8.7 mg/dL (8.5-10.1) Images Images CT abdomen/pelvis w/o IV contrast: Lower chest: Linear and bandlike opacities lower lobes likely scarring/atelectasis. In addition there is interstitial prominence, question underlying interstitial lung disease. Coronary artery calcifications are seen. Abdomen and Pelvis: Liver is mildly nodular in contour, may be seen with cirrhosis. No dominant liver lesion is seen. Spleen is unremarkable. Nodular thickening of the both adrenal glands. Diffuse gallbladder calcifications are again seen. No biliary duct dilatation. Moderate right hydronephrosis. Bilateral hydroureter with thickening and infiltration about both ureters particularly distally. No definite ureteral, renal or bladder calculus is seen. There is marked thickening of the bladder wall as well with associated fat infiltration. Uterine calcifications are seen. Colonic diverticulosis without evidence for acute diverticulitis. Moderate colonic stool content. No small or large bowel dilatation. No bowel obstruction. Dense vascular calcifications are seen, particularly of aorta and main branches. No abdominal or pelvic ascites. No abdominal or pelvic lymphadenopathy. Bones: Evaluation the pelvis is limited by streak artifact from the right total hip arthroplasty. Lytic lesion within the left iliac bone measures 3 x 2.3 cm, increased in size compared to 06/17/2020, with the previously seen 2 lytic lesions have coalesced into one lytic lesion. Marked osteopenia. Old left pubic bone fractures. Old L2 compression fracture unchanged. IMPRESSION: 1. Infiltration about the ureters bilaterally and bladder possibly from infectious/inflammatory process and can be correlated with urinalysis. This is mildly progressed however compared to 06/17/2020. Additionally malignancy or alternative inflammatory process would also have this appearance. 2. Calcifications of the gallbladder are again seen which may be seen with gallbladder carcinoma. 3. Nodular thickening of the adrenal glands, uncertain clinical significance, essentially stable to prior. 4. Lytic lesions within the left iliac bone have increased in size, suspicious for metastatic disease. 5. Colonic diverticulosis without CT evidence for acute diverticulitis. VTE Prophylaxis Ordered VTE Prophylaxis Devices: Yes VTE Pharmacological Prophylaxi: Yes Assessment/Plan Assessment/Plan A/P: Pyelonephritis - with Dysuria - with abnormalities indicating pyelonephritis and MDRO previously will consult ID for further recs. Given rocephin in ED Acute encephalopathy - in patient with h/o MDRO UTI metabolic encephalopathy ESRD on HD - consult nephrology Paroxysmal Afib - on warfarin and amiodarone, metoprolol Diabetes mellitus - sliding scale + lantus PVD s/p angioplasty 12/26 on Left polpliteal - post tib with chronic total occlusion Thrombocytopenia - will monitor. Previously noted in July 2019, resolved since Anemia - of chronic renal disease, macrocytosis noted, B12 in 500s Hypothyroidism - with elevated TSH 13, will cont levothyroxine Calcifications of the gallbladder are again seen which may be seen with gallbladder carcinoma Nodular thickening of the adrenal glands, uncertain clinical significance, essentially stable to prior. Lytic lesions within the left iliac bone have increased in size, suspicious for metastatic disease FEN - Renal diet PPX - warfarin FULL CODE Dispo - inpatient for above Justifications for Admission Other Justification ITA MOSQUEDA MD Sep 02, 2020 14:08
[2020-09-02] MEDS ORDERED: ONDANSETRON PF 4 MG/2 ML VIAL. IV PRN (16:00)
[2020-09-02] MEDS ORDERED: MINERAL OIL/PETROLATUM TOPICAL CREAM 113GM JAR. TP PRN (16:00)
[2020-09-02] MEDS ORDERED: HYDROcodone/APAP 7.5/325MG 1 TAB TABLET PO PRN (16:00)
[2020-09-02] MEDS ORDERED: DOCUSATE SODIUM 100 MG CAPSULE. PO PRN (16:00)
[2020-09-02] MEDS ORDERED: hydrOXYzine 10 MG TABLET PO PRN (16:00)
[2020-09-02] MEDS ORDERED: POLYETHYLENE GLYCOL 3350 17 GM PACKET. PO PRN (16:00)
[2020-09-02] MEDS ORDERED: ACETAMINOPHEN 325 MG TABLET. PO PRN (16:00)
[2020-09-02 16:38] LABS: PROTHROMBIN TIME PATIENT 16.7 SEC (11.7-14.0)
[2020-09-02] MEDS: CALCIUM ACETATE 667 MG CAPSULE PO SCH (17:00)
[2020-09-02 17:33] LABS: FECAL OB PT POSITIVE (NEG)
[2020-09-02] MEDS: WARFARIN 3 MG TABLET. PO ONE ×2 (17:34→18:00)
[2020-09-02 18:54] VITALS: BP 162/62
[2020-09-02 19:20] VITALS: BP 150/48
[2020-09-02] MEDS: LACTOBACILLUS RHAMNOSUS GG 1 CAPSULE. PO SCH (20:36)
[2020-09-02] MEDS: METOPROLOL TART IMMED RELEASE 50 MG TABLET. PO SCH (20:37)
[2020-09-02] MEDS ORDERED: INSULIN GLARGINE SYRINGE. SQ SCH (21:00)
[2020-09-02] MEDS ORDERED: SIMVASTATIN 40 MG TABLET. PO SCH (21:00)
[2020-09-02 23:31] VITALS: BP 136/60
[2020-09-03 03:07] VITALS: BP 146/60
[2020-09-03] MEDS ORDERED: LEVOTHYROXINE 75 MCG TABLET PO SCH (06:00)
[2020-09-03 07:00] VITALS: BP 148/40
[2020-09-03 07:09] LABS: BASO # 0.1 x10^3/uL (0.0-0.2); BASO % 1 % (0-3); EOS # 0.3 x10^3/uL (0.0-0.7); EOS % 4 % (0-3); HEMATOCRIT 35.5 % (36.0-47.0); HEMOGLOBIN 11.8 g/dL (12.0-15.5); LYMPH # 1.9 x10^3/uL (1.0-4.8); LYMPH % 28 % (24-48); MEAN CORPUSCULAR HEMOGLOBIN 34 pg (25-35); MEAN CORPUSCULAR HGB CONC 33 g/dL (31-37); MEAN CORPUSCULAR VOLUME 102 fL (79-100); MONO # 0.5 x10^3/uL (0.0-1.1); MONO % 8 % (0-9); NEUT # 4.1 x10^3/uL (1.8-7.7); NEUT % 59 % (31-73); PLATELET COUNT 152 x10^3/uL (140-400); RED BLOOD COUNT 3.49 x10^6/uL (3.50-5.40); RED CELL DISTRIBUTION WIDTH 14.9 % (11.5-14.5); WHITE BLOOD COUNT 6.9 x10^3/uL (4.0-11.0)
[2020-09-03 07:14] LABS: PROTHROMBIN TIME PATIENT 18.1 SEC (11.7-14.0)
[2020-09-03] MEDS: CALCIUM ACETATE 667 MG CAPSULE PO SCH ×3 (08:19→17:03)
[2020-09-03] MEDS: LACTOBACILLUS RHAMNOSUS GG 1 CAPSULE. PO SCH (08:20)
[2020-09-03] MEDS: METOPROLOL TART IMMED RELEASE 50 MG TABLET. PO SCH (08:21)
[2020-09-03 08:57] LABS: ALBUMIN/GLOBULIN RATIO 0.6 (1.0-1.7); TOTAL BILIRUBIN 0.4 mg/dL (0.2-1.0)
[2020-09-03] MEDS ORDERED: AMIODARONE HCL 200 MG TABLET. PO SCH (09:00)
[2020-09-03 09:01] LABS: CALCIUM 8.8 mg/dL (8.5-10.1); CREATININE 7.2 mg/dL (0.6-1.0); GFR 5.5; POTASSIUM 3.5 mmol/L (3.5-5.1)
--- NOTE | 2020-09-03 09:50 | NUR ---
Pharmacy Warfarin Dosing Note S:Pharmacy consulted to assist with anticoagulation therapy started with target INR: 2 -3 O:BRYANT LOCKHART is a 80 year old F with Atrial Fibrillation LABS: Last INR: 1.5 Last HGB: 11.8 Last HCT: Last PLT: 152 Last dose of 3 mg given on 09/02/20 at 1700 Previous Regimen: Vitamin K given: N Drug Interaction Changes: Same Interacting Drug Ongoing Drug Interactions: AMIODARONE A:INR of 1.5 is below desired range. Target range for this patient is: 2 -3 P: Warfarin dose: 4 mg Today at 1600 Bridge Therapy: None Next INR due IN AM Pharmacy anticoagulation service will continue to follow. JOSE BAKER [facility], 09/03/20 [id number]
--- NOTE | 2020-09-03 09:55 | NUR ---
SW following. Discussed with RN, pt from home with family, room air, renal diet. SW verified pt does dialysis at [facility] (ph: [phone]) MWF, first shift. PT.OT ordered. TADEO will continue to follow.
--- NOTE | 2020-09-03 10:30 | PDOC2 ---
CONSULT Date of Consult Date of Consult DATE: 09/03/20 TIME: 10:30 Reason for Consult Reason for Consult: ESRD Source Source: Chart review, Patient History of Present Illness Reason for Visit: This is a 80-year-old female who comes in with what she told ER physician, blood in the urin She reports to me that she had loss of appetite, so she knew "that she has UTI." Denies any urinary symptoms . No nausea, vomiting, diarrhea or fever. The patient did not have any abdominal pain, although she told ER that she had some suprapubic pain. Her vitals are stable here. Straight catheterization is showing too numerous to count rbc, too numerous to count wbc. The patient did have a CT of the abdomen and pelvis, which showed infiltration about the ureters bilaterally and bladder, possibly from infection, inflammatory process. Currently she is eating lunch , states she is waiting for dialysis . Denies any complaints currently Past Medical History Cardiovascular: CAD, HTN, Hyperlipidemia CENTRAL NERVOUS SYSTEM: Periperal neuropathy GI: Diverticulosis Heme/Onc: Anemia NOS, Cancer Hepatobiliary: No pertinent hx Psych: No pertinent hx Rheumatologic: No pertinent hx Infectious disease: Other Renal/: Chronic renal failure, UTI, Other Endocrine: Diabetes, Hyperparathyroidism Past Surgical History Past Surgical History: CABG, Cataract Removal, Colectomy, Other Family History Family History: Hypertension Social History No ALCOHOL: none Drugs: None Lives: with Family Current Problem List Problem List Problems Medical Problems: (1) UTI (lower urinary tract infection) Status: Acute (2) Weakness Status: Acute Current Medications Current Medications Current Medications Ceftriaxone Sodium (Rocephin) 1 gm 1X ONCE IVP Last administered on 09/02/20at 10:38; Start 09/02/20 at 10:00; Stop 09/02/20 at 10:01; Status DC Ondansetron HCl (Zofran) 4 mg STK-MED ONCE .ROUTE ; Start 09/02/20 at 10:44; Stop 09/02/20 at 10:44; Status DC Ondansetron HCl (Zofran) 4 mg 1X ONCE IVP Last administered on 09/02/20at 10:47; Start 09/02/20 at 10:45; Stop 09/02/20 at 10:48; Status DC Ceftriaxone Sodium (Rocephin) 1 gm 1X ONCE IVP ; Start 09/02/20 at 11:00; Stop 09/02/20 at 10:58; Status DC Dexamethasone Sodium Phosphate (Decadron) 10 mg 1X ONCE IVP ; Start 09/02/20 at 11:00; Stop 09/02/20 at 11:01; Status Cancel Ondansetron HCl (Zofran) 4 mg PRN Q4HRS PRN IV NAUSEA/VOMITING; Start 09/02/20 at 16:00 Acetaminophen (Tylenol) 650 mg PRN Q4HRS PRN PO TEMP OVER 100.4F OR MILD PAIN; Start 09/02/20 at 16:00 Docusate Sodium (Colace) 100 mg PRN BID PRN PO HARD STOOLS; Start 09/02/20 at 16:00 Amiodarone HCl (Cordarone) 200 mg DAILY PO Last administered on 09/03/20at 08:22; Start 09/03/20 at 09:00 Acetaminophen/ Hydrocodone Bitart (Lortab 7.5/325) 1 tab PRN Q4HRS PRN PO PAIN; Start 09/02/20 at 16:00 Hydroxyzine HCl (Atarax) 10 mg PRN Q6HRS PRN PO ITCHING; Start 09/02/20 at 16:00 Lactobacillus Rhamnosus (Culturelle) 1 cap BID PO Last administered on 09/03/20at 08:20; Start 09/02/20 at 21:00 Multi-Ingredient Ointment (Hydrocerin Cream) 1 scotty PRN Q1HR PRN TP DRY SKIN / SCALING; Start 09/02/20 at 16:00 Levothyroxine Sodium (Synthroid) 75 mcg DAILY06 PO Last administered on 09/03/20at 05:26; Start 09/03/20 at 06:00 Metoprolol Tartrate (Lopressor) 50 mg BID PO Last administered on 09/03/20at 08:21; Start 09/02/20 at 21:00 Polyethylene Glycol (miraLAX PACKET) 17 gm PRN DAILY PRN PO CONSTIPATION; Start 09/02/20 at 16:00 Simvastatin (Zocor) 40 mg QHS PO Last administered on 09/02/20at 20:37; Start 09/02/20 at 21:00 Warfarin Sodium (Coumadin) 3 mg 1X WARF ONCE PO Last administered on 09/02/20at 18:00; Start 09/02/20 at 17:00; Stop 09/02/20 at 17:01; Status DC Calcium Acetate (Phoslo) 1,334 mg TIDWMEALS PO Last administered on 09/03/20at 08:19; Start 09/02/20 at 17:00 Insulin Glargine (Lantus Syringe) 6 unit QHS SQ Last administered on 09/02/20at 20:39; Start 09/02/20 at 21:00 Warfarin Sodium (Coumadin Per Pharmacy) 1 each PRN DAILY PRN MC SEE COMMENTS Last administered on 09/03/20at 09:49; Start 09/02/20 at 16:00 Warfarin Sodium (Coumadin) 4 mg 1X WARF ONCE PO ; Start 09/03/20 at 16:00; Stop 09/03/20 at 16:01 Active Scripts Active Macrobid 100 Mg Capsule (Nitrofurantoin Monohyd/M-Cryst) 100 Mg Capsule 1 Cap PO BID 5 Days Hydroxyzine Hcl 10 Mg Tablet 10 Mg PO PRN Q6HRS PRN 30 Days Hydrocerin Cream (Lanolin Alcohol/Mo/W.pet/Ewing) 454 Gm Cream..g. 1 Scotty TP PRN Q1HR PRN 30 Days [Cefepime Hcl] 1 GM Vial 1 Gm IVP QMWF 14 Days Vancomycin HCl 250 Mg Vial 500 Mg IV MWF 14 Days Levothyroxine Sodium 75 Mcg Tablet 75 Mcg PO DAILY06 90 Days Antifungal Cream (Miconazole Nitrate) 14 Gm Cream..g. 1 Scotty TP BID 7 Days Culturelle (Lactobacillus Rhamnosus Gg) 1 Each Cap.sprink 1 Cap PO BID 30 Days Polyethylene Glycol 3350 17 Gm Powd.pack 17 Gm PO PRN DAILY PRN 30 Days Amiodarone Hcl 200 Mg Tablet 200 Mg PO DAILY 30 Days Coumadin (Warfarin Sodium) 3 Mg Tablet 3 Mg PO 1X WARF 30 Days Hydrocodone-Apap 7.5-325 (Hydrocodone Bit/Acetaminophen) 1 Tab Tablet 1 Tab PO PRN Q4HRS PRN 6 Days Reported Lantus Solostar (Insulin Glargine,Hum.rec.anlog) 100 Unit/1 Ml Insuln.pen 6 Unit SQ HS Simvastatin 40 Mg Tablet 1 Tab PO QHS Metoprolol Tartrate 50 Mg Tablet 1 Tab PO BID Funmi-Hannah Rx Tablet (Vit B Cmplx 3/Fa/Vit C/Biotin) 1 Each Tablet 1 Each PO DAILY Novolog (Insulin Aspart) 100 Unit/1 Ml Cartridge 6 Unit SQ TIDAC Calcium Acetate 667 Mg Tablet 2 Cap PO TIDAC Allergies Allergies: Coded Allergies: latex (Verified Allergy, Intermediate, Rash, 09/02/20) sulfamethoxazole (Verified Allergy, Intermediate, Hives, 09/02/20) trimethoprim (Verified Allergy, Intermediate, Hives, 09/02/20) ROS Review of System As per HPI, all other systems reviewed are negative. Physical Exam Physical Exam GENERAL: Alert and oriented female, not in any distress. VITAL SIGNS: Stable, afebrile. HEENT: NAD. NECK: Supple, no JVP, no lymphadenopathy. LUNGS: Clear. HEART: S1, S2 regular. ABDOMEN: Benign. EXTREMITIES: No edema or cyanosis. SKIN: Unremarkable. NEUROLOGIC: The patient is alert, awake and appropriate. No focal neurologic deficit. Vital Signs Vital Signs Date Time Temp Pulse Resp B/P (MAP) Pulse Ox O2 Delivery O2 Flow Rate FiO2 09/03/20 08:22 75 148/40 09/03/20 07:45 Room Air 09/03/20 07:00 97.9 19 95 97.9 Assessment & Plan ESRD MWF , dialysis today as ordered , Francisco Perkins Abnormal urinalysis - per ID due to concentrated urine, no e/o infection. 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 Lytic lesions in the bone, may have occult malignancy. Anemia- No indication for BIJAN Labs Labs Laboratory Tests Test 09/02/20 08:22 09/02/20 10:14 09/02/20 11:40 09/02/20 16:35 Urine Collection Type U cath Urine Color Red Urine Clarity Bloody Urine pH (<5.0-8.0) Urine Specific [place] (1.000-1.030) Urine Protein mg/dL (NEG-TRACE) Urine Glucose (UA) mg/dL (NEG) Urine Ketones (Stick) mg/dL (NEG) Urine Blood (NEG) Urine Nitrite (NEG) Urine Bilirubin (NEG) Urine Urobilinogen Dipstick mg/dL (0.2 mg/dL) Urine Leukocyte Esterase (NEG) Urine RBC Tntc /HPF (0-2) Urine WBC Tntc /HPF (0-4) Urine Squamous Epithelial Cells Mod /LPF Urine Bacteria Many /HPF (0-FEW) White Blood Count 6.9 x10^3/uL (4.0-11.0) Red Blood Count 3.41 x10^6/uL (3.50-5.40) Hemoglobin 11.5 g/dL (12.0-15.5) Hematocrit 34.4 % (36.0-47.0) Mean Corpuscular Volume 101 fL (79-100) Mean Corpuscular Hemoglobin 34 pg (25-35) Mean Corpuscular Hemoglobin Concent 33 g/dL (31-37) Red Cell Distribution Width 14.6 % (11.5-14.5) Platelet Count 140 x10^3/uL (140-400) Neutrophils (%) (Auto) 65 % (31-73) Lymphocytes (%) (Auto) 23 % (24-48) Monocytes (%) (Auto) 8 % (0-9) Eosinophils (%) (Auto) 4 % (0-3) Basophils (%) (Auto) 1 % (0-3) Neutrophils # (Auto) 4.5 x10^3/uL (1.8-7.7) Lymphocytes # (Auto) 1.6 x10^3/uL (1.0-4.8) Monocytes # (Auto) 0.5 x10^3/uL (0.0-1.1) Eosinophils # (Auto) 0.3 x10^3/uL (0.0-0.7) Basophils # (Auto) 0.1 x10^3/uL (0.0-0.2) Prothrombin Time 16.7 SEC (11.7-14.0) Prothromb Time International Ratio 1.4 (0.8-1.1) Sodium Level 138 mmol/L (136-145) Potassium Level 3.5 mmol/L (3.5-5.1) Chloride Level 99 mmol/L (98-107) Carbon Dioxide Level 32 mmol/L (21-32) Anion Gap 7 (6-14) Blood Urea Nitrogen 22 mg/dL (7-20) Creatinine 5.8 mg/dL (0.6-1.0) Estimated GFR (Cockcroft-Gault) 7.1 Glucose Level 108 mg/dL (70-99) Calcium Level 8.7 mg/dL (8.5-10.1) Stool Occult Blood Positive (NEG) Test 09/02/20 21:03 09/03/20 06:00 09/03/20 07:17 Glucose (Fingerstick) 238 mg/dL (70-99) 94 mg/dL (70-99) White Blood Count 6.9 x10^3/uL (4.0-11.0) Red Blood Count 3.49 x10^6/uL (3.50-5.40) Hemoglobin 11.8 g/dL (12.0-15.5) Hematocrit 35.5 % (36.0-47.0) Mean Corpuscular Volume 102 fL (79-100) Mean Corpuscular Hemoglobin 34 pg (25-35) Mean Corpuscular Hemoglobin Concent 33 g/dL (31-37) Red Cell Distribution Width 14.9 % (11.5-14.5) Platelet Count 152 x10^3/uL (140-400) Neutrophils (%) (Auto) 59 % (31-73) Lymphocytes (%) (Auto) 28 % (24-48) Monocytes (%) (Auto) 8 % (0-9) Eosinophils (%) (Auto) 4 % (0-3) Basophils (%) (Auto) 1 % (0-3) Neutrophils # (Auto) 4.1 x10^3/uL (1.8-7.7) Lymphocytes # (Auto) 1.9 x10^3/uL (1.0-4.8) Monocytes # (Auto) 0.5 x10^3/uL (0.0-1.1) Eosinophils # (Auto) 0.3 x10^3/uL (0.0-0.7) Basophils # (Auto) 0.1 x10^3/uL (0.0-0.2) Prothrombin Time 18.1 SEC (11.7-14.0) Prothromb Time International Ratio 1.5 (0.8-1.1) Sodium Level 140 mmol/L (136-145) Potassium Level 3.5 mmol/L (3.5-5.1) Chloride Level 101 mmol/L (98-107) Carbon Dioxide Level 29 mmol/L (21-32) Anion Gap 10 (6-14) Blood Urea Nitrogen 32 mg/dL (7-20) Creatinine 7.2 mg/dL (0.6-1.0) Estimated GFR (Cockcroft-Gault) 5.5 BUN/Creatinine Ratio 4 (6-20) Glucose Level 90 mg/dL (70-99) Calcium Level 8.8 mg/dL (8.5-10.1) Phosphorus Level 5.3 mg/dL (2.6-4.7) Total Bilirubin 0.4 mg/dL (0.2-1.0) Aspartate Amino Transf (AST/SGOT) 16 U/L (15-37) Alanine Aminotransferase (ALT/SGPT) 17 U/L (14-59) Alkaline Phosphatase 178 U/L (46-116) Total Protein 8.0 g/dL (6.4-8.2) Albumin 3.0 g/dL (3.4-5.0) Albumin/Globulin Ratio 0.6 (1.0-1.7) Laboratory Tests Test 09/02/20 11:40 09/02/20 16:35 09/02/20 21:03 09/03/20 06:00 Sodium Level 138 mmol/L (136-145) 140 mmol/L (136-145) Potassium Level 3.5 mmol/L (3.5-5.1) 3.5 mmol/L (3.5-5.1) Chloride Level 99 mmol/L (98-107) 101 mmol/L (98-107) Carbon Dioxide Level 32 mmol/L (21-32) 29 mmol/L (21-32) Anion Gap 7 (6-14) 10 (6-14) Blood Urea Nitrogen 22 mg/dL (7-20) 32 mg/dL (7-20) Creatinine 5.8 mg/dL (0.6-1.0) 7.2 mg/dL (0.6-1.0) Estimated GFR (Cockcroft-Gault) 7.1 5.5 Glucose Level 108 mg/dL (70-99) 90 mg/dL (70-99) Calcium Level 8.7 mg/dL (8.5-10.1) 8.8 mg/dL (8.5-10.1) Stool Occult Blood Positive (NEG) Glucose (Fingerstick) 238 mg/dL (70-99) White Blood Count 6.9 x10^3/uL (4.0-11.0) Red Blood Count 3.49 x10^6/uL (3.50-5.40) Hemoglobin 11.8 g/dL (12.0-15.5) Hematocrit 35.5 % (36.0-47.0) Mean Corpuscular Volume 102 fL (79-100) Mean Corpuscular Hemoglobin 34 pg (25-35) Mean Corpuscular Hemoglobin Concent 33 g/dL (31-37) Red Cell Distribution Width 14.9 % (11.5-14.5) Platelet Count 152 x10^3/uL (140-400) Neutrophils (%) (Auto) 59 % (31-73) Lymphocytes (%) (Auto) 28 % (24-48) Monocytes (%) (Auto) 8 % (0-9) Eosinophils (%) (Auto) 4 % (0-3) Basophils (%) (Auto) 1 % (0-3) Neutrophils # (Auto) 4.1 x10^3/uL (1.8-7.7) Lymphocytes # (Auto) 1.9 x10^3/uL (1.0-4.8) Monocytes # (Auto) 0.5 x10^3/uL (0.0-1.1) Eosinophils # (Auto) 0.3 x10^3/uL (0.0-0.7) Basophils # (Auto) 0.1 x10^3/uL (0.0-0.2) Prothrombin Time 18.1 SEC (11.7-14.0) Prothromb Time International Ratio 1.5 (0.8-1.1) BUN/Creatinine Ratio 4 (6-20) Phosphorus Level 5.3 mg/dL (2.6-4.7) Total Bilirubin 0.4 mg/dL (0.2-1.0) Aspartate Amino Transf (AST/SGOT) 16 U/L (15-37) Alanine Aminotransferase (ALT/SGPT) 17 U/L (14-59) Alkaline Phosphatase 178 U/L (46-116) Total Protein 8.0 g/dL (6.4-8.2) Albumin 3.0 g/dL (3.4-5.0) Albumin/Globulin Ratio 0.6 (1.0-1.7) Test 09/03/20 07:17 Glucose (Fingerstick) 94 mg/dL (70-99) Review All relevant outside records, renal labs, imaging studies, telemetry/EKG's were reviewed. Images Images IMPRESSION: 1. Infiltration about the ureters bilaterally and bladder possibly from infectious/inflammatory process and can be correlated with urinalysis. This is mildly progressed however compared to 06/17/2020. Additionally malignancy or alternative inflammatory process would also have this appearance. 2. Calcifications of the gallbladder are again seen which may be seen with gallbladder carcinoma. 3. Nodular thickening of the adrenal glands, uncertain clinical significance, essentially stable to prior. 4. Lytic lesions within the left iliac bone have increased in size, suspicious for metastatic disease. 5. Colonic diverticulosis without CT evidence for acute diverticulitis. LUCIO TORRES MD Sep 03, 2020 10:30
[2020-09-03 11:00] VITALS: BP 127/62
--- NOTE | 2020-09-03 11:14 | PDOC ---
Infectious Disease Note Vital Sign Vital Signs Vital Signs Date Time Temp Pulse Resp B/P (MAP) Pulse Ox O2 Delivery O2 Flow Rate FiO2 09/03/20 08:22 75 148/40 09/03/20 07:45 Room Air 09/03/20 07:00 97.9 19 95 97.9 Labs Lab Laboratory Tests Test 09/02/20 11:40 09/02/20 16:35 09/02/20 21:03 09/03/20 06:00 Sodium Level 138 mmol/L (136-145) 140 mmol/L (136-145) Potassium Level 3.5 mmol/L (3.5-5.1) 3.5 mmol/L (3.5-5.1) Chloride Level 99 mmol/L (98-107) 101 mmol/L (98-107) Carbon Dioxide Level 32 mmol/L (21-32) 29 mmol/L (21-32) Anion Gap 7 (6-14) 10 (6-14) Blood Urea Nitrogen 22 mg/dL (7-20) 32 mg/dL (7-20) Creatinine 5.8 mg/dL (0.6-1.0) 7.2 mg/dL (0.6-1.0) Estimated GFR (Cockcroft-Gault) 7.1 5.5 Glucose Level 108 mg/dL (70-99) 90 mg/dL (70-99) Calcium Level 8.7 mg/dL (8.5-10.1) 8.8 mg/dL (8.5-10.1) Stool Occult Blood Positive (NEG) Glucose (Fingerstick) 238 mg/dL (70-99) White Blood Count 6.9 x10^3/uL (4.0-11.0) Red Blood Count 3.49 x10^6/uL (3.50-5.40) Hemoglobin 11.8 g/dL (12.0-15.5) Hematocrit 35.5 % (36.0-47.0) Mean Corpuscular Volume 102 fL (79-100) Mean Corpuscular Hemoglobin 34 pg (25-35) Mean Corpuscular Hemoglobin Concent 33 g/dL (31-37) Red Cell Distribution Width 14.9 % (11.5-14.5) Platelet Count 152 x10^3/uL (140-400) Neutrophils (%) (Auto) 59 % (31-73) Lymphocytes (%) (Auto) 28 % (24-48) Monocytes (%) (Auto) 8 % (0-9) Eosinophils (%) (Auto) 4 % (0-3) Basophils (%) (Auto) 1 % (0-3) Neutrophils # (Auto) 4.1 x10^3/uL (1.8-7.7) Lymphocytes # (Auto) 1.9 x10^3/uL (1.0-4.8) Monocytes # (Auto) 0.5 x10^3/uL (0.0-1.1) Eosinophils # (Auto) 0.3 x10^3/uL (0.0-0.7) Basophils # (Auto) 0.1 x10^3/uL (0.0-0.2) Prothrombin Time 18.1 SEC (11.7-14.0) Prothromb Time International Ratio 1.5 (0.8-1.1) BUN/Creatinine Ratio 4 (6-20) Phosphorus Level 5.3 mg/dL (2.6-4.7) Total Bilirubin 0.4 mg/dL (0.2-1.0) Aspartate Amino Transf (AST/SGOT) 16 U/L (15-37) Alanine Aminotransferase (ALT/SGPT) 17 U/L (14-59) Alkaline Phosphatase 178 U/L (46-116) Total Protein 8.0 g/dL (6.4-8.2) Albumin 3.0 g/dL (3.4-5.0) Albumin/Globulin Ratio 0.6 (1.0-1.7) Test 09/03/20 07:17 09/03/20 10:39 Glucose (Fingerstick) 94 mg/dL (70-99) 139 mg/dL (70-99) Objective Assessment Patient seen consult dictated Plan Plan of Care / ANA CRISTINA العلي MD Sep 03, 2020 11:14
[2020-09-03] MEDS ORDERED: CEFDINIR 300 MG CAPSULE PO SCH (12:00)
--- NOTE | 2020-09-03 12:49 | CONS ---
DATE OF CONSULTATION: 09/03/2020 REQUESTING PHYSICIAN: Scooter Keene MD REASON FOR CONSULTATION: UTI. HISTORY OF PRESENT ILLNESS: This is a 80-year-old female who comes in with what she told ER physician, blood in the urine, what she told me that she had loss of appetite, so she knew "that she has UTI." The patient has no urinary symptoms since she does not produce any urine. The patient does not have any nausea, vomiting, diarrhea or fever. The patient did not have any abdominal pain, although she told ER that she had some suprapubic pain. Her vitals are stable here. The patient's white count is normal. Her urinalysis by straight catheterization is showing too numerous to count rbc, too numerous to count wbc. The patient did have a CT of the abdomen and pelvis, which actually showed infiltration about the ureters bilaterally and bladder, possibly from infection, inflammatory process. The patient has calcification of the gallbladder. The patient has nodular thickening of the adrenals that has lytic lesions within the left iliac bone. The patient has no pain anywhere else. PAST MEDICAL HISTORY: Positive for end-stage renal disease, on hemodialysis "recurrent urinary tract infection," peripheral neuropathy, cardiac disorders with coronary artery disease, cardiac surgery done in the past, coronary artery bypass grafting, hyperlipidemia, hypertension, colorectal cancer with a bowel surgery done in the past. SOCIAL HISTORY: Negative for smoking, alcohol or illicit drug use. ALLERGIES: LISTED ALLERGIC TO SULFAMETHOXAZOLE AND TRIMETHOPRIM. CURRENT MEDICATIONS: Reviewed. REVIEW OF SYSTEMS: As per HPI, all other systems reviewed are negative. PHYSICAL EXAMINATION: GENERAL: Alert and oriented female, not in any distress. VITAL SIGNS: Stable, afebrile. HEENT: NAD. NECK: Supple, no JVP, no lymphadenopathy. LUNGS: Clear. HEART: S1, S2 regular. ABDOMEN: Benign. EXTREMITIES: No edema or cyanosis. SKIN: Unremarkable. NEUROLOGIC: The patient is alert, awake and appropriate. No focal neurologic deficit. LABORATORY DATA: White count is normal at 6.9. BUN and creatinine is [address], as I mentioned. IMPRESSION: 1. Abnormal urinalysis is very common for this patient who does not urinate. It is going to be concentrated urine, it does not equate to infection. The patient does not have any other signs of infection. 2. 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 3. Lytic lesions in the bone, may have occult malignancy. 4. End-stage renal disease, on hemodialysis. RECOMMENDATIONS: The patient from the infectious disease standpoint of view can be discharged on p.o. Omnicef for 5 days. I do not see the need for any further Infectious Disease workup. Lytic lesion workup as per primary or oncology. Thank you very much, Dr. Keene, for giving me the opportunity to participate in this patient's care. ANA CRISTINA العلي MD DR: MARYURI/anthony JOB#: [id number] / [id number] SHYANN
[2020-09-03] MEDS ORDERED: CEFD300C PO ×2 (14:23→14:32)
--- NOTE | 2020-09-03 14:30 | PDOC3 ---
Discharge Summary Visit Information Date of Admission: Sep 02, 2020 Date of Discharge: Sep 03, 2020 Admitting Diagnosis Comment: Pyelonephritis - with Dysuria - with abnormalities indicating pyelonephritis and MDRO previously will consult ID for further recs. Given rocephin in ED Acute encephalopathy - in patient with h/o MDRO UTI metabolic encephalopathy ESRD on HD - consult nephrology Paroxysmal Afib - on warfarin and amiodarone, metoprolol Diabetes mellitus - sliding scale + lantus PVD s/p angioplasty 12/26 on Left polpliteal - post tib with chronic total occlusion Thrombocytopenia - will monitor. Previously noted in July 2019, resolved since Anemia - of chronic renal disease, macrocytosis noted, B12 in 500s Hypothyroidism - with elevated TSH 13, will cont levothyroxine Calcifications of the gallbladder are again seen which may be seen with gallbladder carcinoma Nodular thickening of the adrenal glands, uncertain clinical significance, essentially stable to prior. Lytic lesions within the left iliac bone have increased in size, suspicious for metastatic disease Final Diagnosis Problems Medical Problems: (1) UTI (lower urinary tract infection) Status: Acute (2) Weakness Status: Acute Pyelonephritis - with Dysuria - with abnormalities indicating pyelonephritis and MDRO previously will consult ID for further recs. Given rocephin in ED Acute encephalopathy - in patient with h/o MDRO UTI metabolic encephalopathy ESRD on HD - consult nephrology Paroxysmal Afib - on warfarin and amiodarone, metoprolol Diabetes mellitus - sliding scale + lantus PVD s/p angioplasty 12/26 on Left polpliteal - post tib with chronic total occlusion Thrombocytopenia - will monitor. Previously noted in July 2019, resolved since Anemia - of chronic renal disease, macrocytosis noted, B12 in 500s Hypothyroidism - with elevated TSH 13, will cont levothyroxine Calcifications of the gallbladder are again seen which may be seen with gallbladder carcinoma Nodular thickening of the adrenal glands, uncertain clinical significance, essentially stable to prior. Lytic lesions within the left iliac bone have increased in size, suspicious for metastatic disease Brief Hospital Course Allergies Allergies Coded Allergies Type Severity Reaction Last Updated Verified latex Allergy Intermediate Rash 09/02/20 Yes sulfamethoxazole Allergy Intermediate Hives 09/02/20 Yes trimethoprim Allergy Intermediate Hives 09/02/20 Yes Vital Signs Vital Signs Date Time Temp Pulse Resp B/P (MAP) Pulse Ox O2 Delivery O2 Flow Rate FiO2 09/03/20 11:00 98.1 79 18 127/62 (83) 93 Room Air 98.1 Lab Results Laboratory Tests Test 09/02/20 08:22 09/02/20 10:14 09/02/20 11:40 09/02/20 16:35 Urine Collection Type U cath Urine Color Red Urine Clarity Bloody Urine pH (<5.0-8.0) Urine Specific [place] (1.000-1.030) Urine Protein mg/dL (NEG-TRACE) Urine Glucose (UA) mg/dL (NEG) Urine Ketones (Stick) mg/dL (NEG) Urine Blood (NEG) Urine Nitrite (NEG) Urine Bilirubin (NEG) Urine Urobilinogen Dipstick mg/dL (0.2 mg/dL) Urine Leukocyte Esterase (NEG) Urine RBC Tntc /HPF (0-2) Urine WBC Tntc /HPF (0-4) Urine Squamous Epithelial Cells Mod /LPF Urine Bacteria Many /HPF (0-FEW) White Blood Count 6.9 x10^3/uL (4.0-11.0) Red Blood Count 3.41 x10^6/uL (3.50-5.40) Hemoglobin 11.5 g/dL (12.0-15.5) Hematocrit 34.4 % (36.0-47.0) Mean Corpuscular Volume 101 fL (79-100) Mean Corpuscular Hemoglobin 34 pg (25-35) Mean Corpuscular Hemoglobin Concent 33 g/dL (31-37) Red Cell Distribution Width 14.6 % (11.5-14.5) Platelet Count 140 x10^3/uL (140-400) Neutrophils (%) (Auto) 65 % (31-73) Lymphocytes (%) (Auto) 23 % (24-48) Monocytes (%) (Auto) 8 % (0-9) Eosinophils (%) (Auto) 4 % (0-3) Basophils (%) (Auto) 1 % (0-3) Neutrophils # (Auto) 4.5 x10^3/uL (1.8-7.7) Lymphocytes # (Auto) 1.6 x10^3/uL (1.0-4.8) Monocytes # (Auto) 0.5 x10^3/uL (0.0-1.1) Eosinophils # (Auto) 0.3 x10^3/uL (0.0-0.7) Basophils # (Auto) 0.1 x10^3/uL (0.0-0.2) Prothrombin Time 16.7 SEC (11.7-14.0) Prothromb Time International Ratio 1.4 (0.8-1.1) Sodium Level 138 mmol/L (136-145) Potassium Level 3.5 mmol/L (3.5-5.1) Chloride Level 99 mmol/L (98-107) Carbon Dioxide Level 32 mmol/L (21-32) Anion Gap 7 (6-14) Blood Urea Nitrogen 22 mg/dL (7-20) Creatinine 5.8 mg/dL (0.6-1.0) Estimated GFR (Cockcroft-Gault) 7.1 Glucose Level 108 mg/dL (70-99) Calcium Level 8.7 mg/dL (8.5-10.1) Stool Occult Blood Positive (NEG) Test 09/02/20 21:03 09/03/20 06:00 09/03/20 07:17 09/03/20 10:39 Glucose (Fingerstick) 238 mg/dL (70-99) 94 mg/dL (70-99) 139 mg/dL (70-99) White Blood Count 6.9 x10^3/uL (4.0-11.0) Red Blood Count 3.49 x10^6/uL (3.50-5.40) Hemoglobin 11.8 g/dL (12.0-15.5) Hematocrit 35.5 % (36.0-47.0) Mean Corpuscular Volume 102 fL (79-100) Mean Corpuscular Hemoglobin 34 pg (25-35) Mean Corpuscular Hemoglobin Concent 33 g/dL (31-37) Red Cell Distribution Width 14.9 % (11.5-14.5) Platelet Count 152 x10^3/uL (140-400) Neutrophils (%) (Auto) 59 % (31-73) Lymphocytes (%) (Auto) 28 % (24-48) Monocytes (%) (Auto) 8 % (0-9) Eosinophils (%) (Auto) 4 % (0-3) Basophils (%) (Auto) 1 % (0-3) Neutrophils # (Auto) 4.1 x10^3/uL (1.8-7.7) Lymphocytes # (Auto) 1.9 x10^3/uL (1.0-4.8) Monocytes # (Auto) 0.5 x10^3/uL (0.0-1.1) Eosinophils # (Auto) 0.3 x10^3/uL (0.0-0.7) Basophils # (Auto) 0.1 x10^3/uL (0.0-0.2) Prothrombin Time 18.1 SEC (11.7-14.0) Prothromb Time International Ratio 1.5 (0.8-1.1) Sodium Level 140 mmol/L (136-145) Potassium Level 3.5 mmol/L (3.5-5.1) Chloride Level 101 mmol/L (98-107) Carbon Dioxide Level 29 mmol/L (21-32) Anion Gap 10 (6-14) Blood Urea Nitrogen 32 mg/dL (7-20) Creatinine 7.2 mg/dL (0.6-1.0) Estimated GFR (Cockcroft-Gault) 5.5 BUN/Creatinine Ratio 4 (6-20) Glucose Level 90 mg/dL (70-99) Calcium Level 8.8 mg/dL (8.5-10.1) Phosphorus Level 5.3 mg/dL (2.6-4.7) Total Bilirubin 0.4 mg/dL (0.2-1.0) Aspartate Amino Transf (AST/SGOT) 16 U/L (15-37) Alanine Aminotransferase (ALT/SGPT) 17 U/L (14-59) Alkaline Phosphatase 178 U/L (46-116) Total Protein 8.0 g/dL (6.4-8.2) Albumin 3.0 g/dL (3.4-5.0) Albumin/Globulin Ratio 0.6 (1.0-1.7) Laboratory Tests Test 09/02/20 16:35 09/02/20 21:03 09/03/20 06:00 09/03/20 07:17 Stool Occult Blood Positive (NEG) Glucose (Fingerstick) 238 mg/dL (70-99) 94 mg/dL (70-99) White Blood Count 6.9 x10^3/uL (4.0-11.0) Red Blood Count 3.49 x10^6/uL (3.50-5.40) Hemoglobin 11.8 g/dL (12.0-15.5) Hematocrit 35.5 % (36.0-47.0) Mean Corpuscular Volume 102 fL (79-100) Mean Corpuscular Hemoglobin 34 pg (25-35) Mean Corpuscular Hemoglobin Concent 33 g/dL (31-37) Red Cell Distribution Width 14.9 % (11.5-14.5) Platelet Count 152 x10^3/uL (140-400) Neutrophils (%) (Auto) 59 % (31-73) Lymphocytes (%) (Auto) 28 % (24-48) Monocytes (%) (Auto) 8 % (0-9) Eosinophils (%) (Auto) 4 % (0-3) Basophils (%) (Auto) 1 % (0-3) Neutrophils # (Auto) 4.1 x10^3/uL (1.8-7.7) Lymphocytes # (Auto) 1.9 x10^3/uL (1.0-4.8) Monocytes # (Auto) 0.5 x10^3/uL (0.0-1.1) Eosinophils # (Auto) 0.3 x10^3/uL (0.0-0.7) Basophils # (Auto) 0.1 x10^3/uL (0.0-0.2) Prothrombin Time 18.1 SEC (11.7-14.0) Prothromb Time International Ratio 1.5 (0.8-1.1) Sodium Level 140 mmol/L (136-145) Potassium Level 3.5 mmol/L (3.5-5.1) Chloride Level 101 mmol/L (98-107) Carbon Dioxide Level 29 mmol/L (21-32) Anion Gap 10 (6-14) Blood Urea Nitrogen 32 mg/dL (7-20) Creatinine 7.2 mg/dL (0.6-1.0) Estimated GFR (Cockcroft-Gault) 5.5 BUN/Creatinine Ratio 4 (6-20) Glucose Level 90 mg/dL (70-99) Calcium Level 8.8 mg/dL (8.5-10.1) Phosphorus Level 5.3 mg/dL (2.6-4.7) Total Bilirubin 0.4 mg/dL (0.2-1.0) Aspartate Amino Transf (AST/SGOT) 16 U/L (15-37) Alanine Aminotransferase (ALT/SGPT) 17 U/L (14-59) Alkaline Phosphatase 178 U/L (46-116) Total Protein 8.0 g/dL (6.4-8.2) Albumin 3.0 g/dL (3.4-5.0) Albumin/Globulin Ratio 0.6 (1.0-1.7) Test 09/03/20 10:39 Glucose (Fingerstick) 139 mg/dL (70-99) Brief Hospital Course History of Present Illness Ms Beach is a 79yo F w/ PMHx ESRD on HD, coronary artery disease and paroxysmal atrial fibrillation presented to ED 2/2 feeling badly. She is c/o hematuria, loss of appetite, intermittent suprapubic abdominal pain for the past 2 days prior to admission. Patient has had this multiple times in the past. This is typically related to recurrent UTIs. She typically requires IV antibiotics.Suprapubic pain is dull and only lasts a few minutes. It does not radiate. She does not have any confusion or fevers, but her daughter does note that she has been confused. She has also noted her last dialysis session she had diarrhea and had to stop early. Normally [facility] dialysis. Confused for the past few days, so weak now is unable to ambulate. CT abdomen pelvis w/o contrast with inflammation about the ureters bilaterally and bladder possibly from infectious/inflammatory. Also with calcifications of the gallbladder and lytic lesions within the left iliac bone have increased in size, suspicious for metastatic disease. Labs with WBC 6.9, Hb 11.5, platelets 140, MCV 101, NA 138, K3.5, BUN 22, CR 5.8, glucose 108 Admitted for further treatment. Consults: Nephrology, Infectious diseases Patient was admitted to the hospital where she was assessed and also seen in consultation by Dr. Derik Bolanos who knows the patient quite well. I have also reviewed the imaging studies that they have concerning for malignancy but in previous admissions the patient has been diagnosed with a porcelain gallbladder which certainly can mimic the findings reported on her last scan. The patient can certainly follow-up in the outpatient setting with surgery to address this issue. I will also recommend following up with her primary care physician closely regarding the lytic lesions which can be worked up in the outpatient setting. I have sent serum protein electrophoresis to start the work-up which can be followed up in the outpatient setting. All of her concerns were addressed to the best of my abilities her data center consultant recommended Omnicef for 5 days and patient is able to be discharged later in the day after her dialysis treatment. Greater than 35 minutes were spent in the discharge process the patient in counseling coordination of care and formulation of a safe discharge plan Physical Exam General: Alert, Oriented X3, Cooperative, mild distress HEENT: Atraumatic, PERRLA, EOMI, Mucous membr. moist/pink Lungs: Clear to auscultation, Normal air movement Heart: S1S2, RRR, no thrills, no rubs, no gallops, no murmurs Abdomen: Normal bowel sounds, Soft, No hepatosplenomegaly, No masses, Other (Suprapubic tenderness) Rectal Exam: not examined Extremities: No clubbing, No cyanosis, No edema, Normal pulses, No tende rness/swelling, Other (LUE with good bruit) Skin: No rashes, No breakdown, No significant lesion Neuro: Normal speech, Strength at 5/5 X4 ext, Normal tone, Sensation intact, Cranial nerves 3-12 NL, Reflexes 2+ Psych/Mental Status: Mood NL, Assessment Assessment CT abdomen/pelvis w/o IV contrast: Lower chest: Linear and bandlike opacities lower lobes likely scarring/atelectasis. In addition there is interstitial prominence, question underlying interstitial lung disease. Coronary artery calcifications are seen. Abdomen and Pelvis: Liver is mildly nodular in contour, may be seen with cirrhosis. No dominant liver lesion is seen. Spleen is unremarkable. Nodular thickening of the both adrenal glands. Diffuse gallbladder calcifications are again seen. No biliary duct dilatation. Moderate right hydronephrosis. Bilateral hydroureter with thickening and infiltration about both ureters particularly distally. No definite ureteral, renal or bladder calculus is seen. There is marked thickening of the bladder wall as well with associated fat infiltration. Uterine calcifications are seen. Colonic diverticulosis without evidence for acute diverticulitis. Moderate colonic stool content. No small or large bowel dilatation. No bowel obstruction. Dense vascular calcifications are seen, particularly of aorta and main branches. No abdominal or pelvic ascites. No abdominal or pelvic lymphadenopathy. Bones: Evaluation the pelvis is limited by streak artifact from the right total hip arthroplasty. Lytic lesion within the left iliac bone measures 3 x 2.3 cm, increased in size compared to 06/17/2020, with the previously seen 2 lytic lesions have coalesced into one lytic lesion. Marked osteopenia. Old left pubic bone fractures. Old L2 compression fracture unchanged. IMPRESSION: 1. Infiltration about the ureters bilaterally and bladder possibly from infectious/inflammatory process and can be correlated with urinalysis. This is mildly progressed however compared to 06/17/2020. Additionally malignancy or alternative inflammatory process would also have this appearance. 2. Calcifications of the gallbladder are again seen which may be seen with gallbladder carcinoma. 3. Nodular thickening of the adrenal glands, uncertain clinical significance, essentially stable to prior. 4. Lytic lesions within the left iliac bone have increased in size, suspicious for metastatic disease. 5. Colonic diverticulosis without CT evidence for acute diverticulitis. Discharge Information Condition at Discharge: Improved Follow Up: Weeks Disposition/Orders: D/C to Home Scheduled Amiodarone Hcl (Amiodarone Hcl) 200 Mg Tablet, 200 MG PO DAILY for Afib for 30 Days, #30 Prescribed by: ITA MOSQUEDA MD on 08/08/19 1540 Last Action: Continued on 09/02/20 161 by ITA MOSQUEDA MD Calcium Acetate (Calcium Acetate) 667 Mg Tablet, 2 CAP PO TIDAC for phosphate binder, (Reported) Entered as Reported by: MARIYA PEARL on 07/03/18 1019 Last Action: Converted on 09/02/201612 by ITA MOSQUEDA MD Cefdinir (Cefdinir) 300 Mg Capsule, 300 MG PO DAILY for UTI for 3 Days, #3 Prescribed by: GREGORIO FROST MD on 09/03/20 1423 Insulin Aspart (Novolog) 100 Unit/1 Ml Cartridge, 6 UNIT SQ TIDAC for DM, (Reported) Entered as Reported by: SANJANA HOOPER on 07/19/18 1613 Insulin Glargine,Hum.rec.anlog (Lantus Solostar) 100 Unit/1 Ml Insuln.pen, 6 UNIT SQ HS for DM, (Reported) Entered as Reported by: KATHE GARDINER on 02/17/20 1127 Last Action: Converted on 09/02/201612 by ITA MOSQUEDA MD Lactobacillus Rhamnosus Gg (Culturelle) 1 Each Cap.sprink, 1 CAP PO BID for SUPPLEMENT for 30 Days, #60 Prescribed by: FLORI DAVIES MD on 01/04/20 1414 Last Action: Continued on 09/02/201612 by ITA MOSQUEDA MD Levothyroxine Sodium (Levothyroxine Sodium) 75 Mcg Tablet, 75 MCG PO DAILY06 for Hypothyroidism for 90 Days, #90 Prescribed by: ITA MOSQUEDA MD on 02/06/20 1429 Last Action: Continued on 09/02/201612 by ITA MOSQUEDA MD Metoprolol Tartrate (Metoprolol Tartrate) 50 Mg Tablet, 1 TAB PO BID for Afib, #60 Ref 5 (Reported) Entered as Reported by: JUANITA MARTINEZ on 07/07/19 1054 Last Action: Continued on 09/02/201612 by ITA MOSQUEDA MD Miconazole Nitrate (Antifungal Cream) 14 Gm Cream..g., 1 ODILIA TP BID for Intertrigo for 7 Days, #14 Prescribed by: ITA MOSQUEDA MD on 02/06/20 1429 Simvastatin (Simvastatin) 40 Mg Tablet, 1 TAB PO QHS for hld, #30 Ref 5 (Reported) Entered as Reported by: MARIANNE DE LA GARZA on 08/04/19 1447 Last Action: Continued on 09/02/201612 by ITA MOSQUEDA MD Vit B Cmplx 3/Fa/Vit C/Biotin (Funmi-Hannah Rx Tablet) 1 Each Tablet, 1 EACH PO DAILY for dialysis, (Reported) Entered as Reported by: ESE VARGAS on 12/21/18 1014 Warfarin Sodium (Coumadin) 3 Mg Tablet, 3 MG PO 1X WARF for Afib/Hip PPX for 30 Days, #30 Prescribed by: ITA MOSQUEDA MD on 08/08/19 1540 Last Action: Continued on 09/02/201612 by ITA MOSQUEDA MD [Cefepime Hcl] 1 GM VIAL, 1 GM IVP QMWF for 14 Days, #14 Prescribed by: ITA MOSQUEDA MD on 02/20/20 1352 Scheduled PRN Hydrocodone Bit/Acetaminophen (Hydrocodone-Apap 7.5-325 ) 1 Tab Tablet, 1 TAB PO PRN Q4HRS PRN for PAIN for 6 Days, #15 Prescribed by: ITA MOSQUEDA MD on 08/08/19 1541 Last Action: Continued on 09/02/201611 by ITA MOSQUEDA MD Hydroxyzine Hcl (Hydroxyzine Hcl) 10 Mg Tablet, 10 MG PO PRN Q6HRS PRN for ITCHING for 30 Days, #120 Prescribed by: ITA MOSQUEDA MD on 02/20/20 1611 Last Action: Continued on 09/02/20 161 by ITA MOSQUEDA MD Lanolin Alcohol/Mo/W.pet/[place] (Hydrocerin Cream) 454 Gm Cream..g., 1 ODILIA TP PRN Q1HR PRN for DRY SKIN / SCALING for 30 Days, #450 Prescribed by: ITA MOSQUEDA MD on 02/20/20 1352 Last Action: Continued on 09/02/201612 by ITA MOSQUEDA MD Polyethylene Glycol 3350 (Polyethylene Glycol 3350) 17 Gm Powd.pack, 17 GM PO PRN DAILY PRN for CONSTIPATION for 30 Days, #60 Prescribed by: FLORI DAVIES MD on 01/04/20 1414 Last Action: Continued on 09/02/201612 by ITA MOSQUEDA MD Discontinued Medications Nitrofurantoin Monohyd/M-Cryst (Macrobid 100 Mg Capsule) 100 Mg Capsule, 1 CAP PO BID for 5 Days, #10 Ref 0 Prescribed by: KATT WILCOX on 06/17/20 1132 Vancomycin HCl (Vancomycin HCl) 250 Mg Vial, 500 MG IV MWF for INFECTION for 14 Days, #6 Prescribed by: ITA MOSQUEDA MD on 02/20/20 1352 Justicifation of Admission Dx: Justifications for Admission: Justification of Admission Dx: Yes CHF: Cardiac Arrhythmias Altered Mental Status: Altered Mental Status GREGORIO FROST MD Sep 03, 2020 14:30
[2020-09-03] MEDS ORDERED: WARFARIN 4 MG TABLET. PO ONE (16:00)
--- NOTE | 2020-09-03 17:27 | NUR ---
Patient discharged home with self care today via wheelchair accompanied by aid and daughter. Patient is alert, stable, IV removed, discharge instructions and followup appointment given to patient. Patient and daughter verbalized understanding of discharge instruction.
[2020-09-04 15:16] LABS: KAPPA LAMBDA RATIO 1.93 (0.26-1.65); LAMBDA FREE 210.5 mg/L (5.7-26.3)
[2020-09-04 19:11] LABS: ALBUM 3.1 g/dL (2.9-4.4); ALPHA 1 0.3 g/dL (0.0-0.4); ALPHA 2 0.8 g/dL (0.4-1.0); BETA 0.9 g/dL (0.7-1.3); GAMMA 1.9 g/dL (0.4-1.8); PROTEIN TOTAL 6.9 g/dL (6.0-8.5); SPEP AG RATIO 0.8 (0.7-1.7)
[2020-10-11] MEDS ORDERED: VANC500V PO (13:16)
[2020-10-11] MEDS ORDERED: AMOX1TAB10 PO (13:16)
== END 2020-09-03 17:47 | disposition home or self-care (01) | DRG 689 ==
LOC: ER 07:24 → ED HOLD 13:36 → 4 NORTH 18:46
PROVIDERS: ADMIT Internal Medicine; ATTEND Internal Medicine
DX: N12 Tubulo-interstitial nephritis, not specified as acute or chronic (principal); G93.41 Metabolic encephalopathy; I12.0 Hypertensive chronic kidney disease with stage 5 chronic kidney disease or end stage renal disease; N18.6 End stage renal disease; D69.6 Thrombocytopenia, unspecified; E03.9 Hypothyroidism, unspecified; E11.22 Type 2 diabetes mellitus with diabetic chronic kidney disease; E11.51 Type 2 diabetes mellitus with diabetic peripheral angiopathy without gangrene; E78.00 Pure hypercholesterolemia, unspecified; E78.5 Hyperlipidemia, unspecified; I25.10 Atherosclerotic heart disease of native coronary artery without angina pectoris; I48.0 Paroxysmal atrial fibrillation; K57.30 Diverticulosis of large intestine without perforation or abscess without bleeding; Z82.49 Family history of ischemic heart disease and other diseases of the circulatory system; Z85.048 Personal history of other malignant neoplasm of rectum, rectosigmoid junction, and anus; Z95.1 Presence of aortocoronary bypass graft; Z96.641 Presence of right artificial hip joint; Z98.62 Peripheral vascular angioplasty status; Z99.2 Dependence on renal dialysis; D64.9 Anemia, unspecified; E21.3 Hyperparathyroidism, unspecified; M19.90 Unspecified osteoarthritis, unspecified site; Z88.2 Allergy status to sulfonamides; Z88.8 Allergy status to other drugs, medicaments and biological substances; Z91.040 Latex allergy status; E11.42 Type 2 diabetes mellitus with diabetic polyneuropathy; M89.9 Disorder of bone, unspecified; D75.89 Other specified diseases of blood and blood-forming organs; K82.8 Other specified diseases of gallbladder
CPT/HCPCS: 36415; 74176; 80048; 80053; 81001; 82274; 82962; 83520; 84100; 84165; 85025; 85610; 96374; 96375; 99285; J0696; J1815; J2405; G0378